=== PATIENT | male | born 1930 | race African-American/Black ===

== ENCOUNTER 2017-10-27 13:36 | Inpatient (IN) | payer MEDICARE, MEDICAID ==
[~2017-10-27] VITALS: Ht 165.1 cm; Wt 82.3 kg
[2017-10-27] MEDS ORDERED: DONEPEZIL HCL10 MG ORAL (13:53)
[2017-10-27] MEDS ORDERED: DULCOLAX10 MG RC (13:53)
[2017-10-27] MEDS ORDERED: FLEET ENEMA133 M1 RC (13:53)
[2017-10-27] MEDS ORDERED: ASPIRIN-LOW81 MG ORAL (13:53)
[2017-10-27] MEDS ORDERED: COLACE100 MG ORAL (13:53)
[2017-10-27] MEDS ORDERED: SENNA8.6 M2 PO (13:53)
[2017-10-27] MEDS ORDERED: MOM30 ML ORAL (13:53)
[2017-10-27] MEDS ORDERED: NORVASC5 MG ORAL (13:53)
[2017-10-27] MEDS ORDERED: ATORVASTATIN CA10 MG ORAL (13:53)
[2017-10-27] MEDS ORDERED: TAMSULOSIN HCL0.4 MG ORAL (13:53)
[2017-10-27] MEDS ORDERED: TYLENOL EXTRA500 MG ORAL (13:53)
[2017-10-27] MEDS ORDERED: VITAMIN D400 INTLU ORAL (13:53)
[2017-10-27 14:48] LABS: APPEARANCE,URINE SLIGHTLY CLOUDY; BASOPHILS % (AUTO) 1.3 % (0.0-2.0); BILIRUBIN, URINE NEGATIVE (NEGATIVE); EOSINOPHILS % (AUTO) 1.8 % (0.0-3.0); GLUCOSE, URINE (UA) NEGATIVE (NEGATIVE); HEMATOCRIT 52.7 % (42.0-52.0); HEMOGLOBIN 16.7 G/DL (14.2-18.0); KETONES,URINE 2+ (NEGATIVE); LEUKOCYTE ESTERASE ,URINE 2+ (NEGATIVE); LYMPHOCYTES % (AUTO) 36.1 % (20.0-45.0); MEAN CORPUSCULAR VOLUME 80 FL (80-99); MONOCYTES % (AUTO) 7.5 % (1.0-10.0); NEUTROPHILS % (AUTO) 53.4 % (45.0-75.0); NITRITE,URINE POSITIVE (NEGATIVE); PH,URINE 5 (4.5-8.0); PLATELET COUNT 307 K/UL (150-450); PROTEIN,URINE NEGATIVE (NEGATIVE); RED BLOOD COUNT 6.58 M/UL (4.70-6.10); RED CELL DISTRIBUTION WIDTH 15.2 % (11.6-14.8); UROBILINOGEN,URINE NORMAL MG/DL (0.0-1.0); WHITE BLOOD COUNT 5.9 K/UL (4.8-10.8)
[2017-10-27 14:49] LABS: COLOR,URINE YELLOW
[2017-10-27 15:00] VITALS: BP 128/77
[2017-10-27 15:03] LABS: ANION GAP 11 mmol/L (5-15); BLOOD UREA NITROGEN 17 mg/dL (7-18); CALCIUM 9.6 MG/DL (8.5-10.1); CARBON DIOXIDE 24 MMOL/L (21-32); CHLORIDE 112 MMOL/L (98-107); CREATININE 1.4 MG/DL (0.55-1.30); POTASSIUM 4.3 MMOL/L (3.5-5.1); SODIUM 147 MMOL/L (136-145)
[2017-10-27] MEDS ORDERED: Piperacillin/Tazobactam 3.375 GM in NS 110 ML IVPB ONE (15:15)
[2017-10-27] MEDS ORDERED: Sodium Chloride 500ML 500 ML IV ONE (15:15)
[2017-10-27] MEDS ORDERED: Azithromycin 500 MG in NS 275 ML IV ONE (15:15)
[2017-10-27 15:16] LABS: ALANINE AMINOTRANSFERASE 23 U/L (12-78); ALBUMIN 3.8 G/DL (3.4-5.0); ALBUMIN/GLOBULIN RATIO 0.7 (1.0-2.7); ALKALINE PHOSPHATASE 85 U/L (46-116); ASPARTATE AMINO TRANSFERASE 19 U/L (15-37); BILIRUBIN,TOTAL 0.8 MG/DL (0.2-1.0); CKMB 1.4 NG/ML (0.0-3.6); CREATINE KINASE 78 U/L (26-308)
[2017-10-27] MEDS ORDERED: NS 1000ml 2,200 ML IVLG ONE (15:30)
--- NOTE | 2017-10-27 15:30 | Emergency Room Report ---
History of Present Illness General Chief Complaint: General Complaint Source: Patient Present Illness HPI 87-year-old male presents ED for evaluation. Patient brought in from long-term facility with dysphagia and possible aspiration. Patient is nonverbal at baseline. Unable to provide any additional history at this time. No eating or drinking since yesterday. Patient has history of repeated aspiration in the past. Patient showing no signs of distress upon arrival. No other aggravating relieving factors. No other associated symptoms Allergies: Coded Allergies: TERAZOSIN (Verified Allergy, Unknown, 10/27/17) Patient History Past Medical History: HTN Past Surgical History: none Pertinent Family History: none Social History: Denies: smoking, alcohol use, drug use Immunizations: UTD Reviewed Nursing Documentation: PMH: Agreed; PSxH: Agreed Nursing Documentation-PMH Hx Hypertension: Yes Review of Systems All Other Systems: limited Physical Exam Vital Signs Date Time Temp Pulse Resp B/P (MAP) Pulse Ox O2 Delivery O2 Flow Rate FiO2 10/27/17 13:37 97.3 74 23 175/99 97 Room Air 97.3 Sp02 EP Interpretation: reviewed, normal General Appearance: other - nonverbal Head: normocephalic, atraumatic Eyes: bilateral eye normal inspection, bilateral eye PERRL ENT: hearing grossly normal, normal pharynx, no angioedema, normal voice Neck: full range of motion, supple/symm/no masses Respiratory: chest non-tender, lungs clear, normal breath sounds, speaking full sentences Cardiovascular #1: regular rate, rhythm, no edema Cardiovascular #2: 2+ carotid (R), 2+ carotid (L), 2+ radial (R), 2+ radial (L) , 2+ dorsalis pedis (R), 2+ dorsalis pedis (L) Gastrointestinal: normal bowel sounds, non tender, soft, non-distended, no guarding, no rebound Rectal: deferred Genitourinary: normal inspection, no CVA tenderness Musculoskeletal: back normal, gait/station normal, normal range of motion, non- tender Neurologic: other - nonverbal Psychiatric: other - nonverbal Reflexes: 3+ bicep (R), 3+ bicep (L), 3+ tricep (R), 3+ tricep (L), 3+ knee (R) , 3+ knee (L) Skin: normal color, no rash, warm/dry, well hydrated Lymphatic: no adenopathy Medical Decision Making Diagnostic Impression: Primary Impression: Dysphagia Qualified Codes: R13.10 - Dysphagia, unspecified Additional Impressions: UTI (urinary tract infection) Qualified Codes: N39.0 - Urinary tract infection, site not specified Dehydration Sepsis Qualified Codes: A41.9 - Sepsis, unspecified organism ER Course Hospital Course 87 yo M presents to ED with poor appetite x 1 day. risk of aspiration pneumonia Differential diagnoses include: Pneumonia, UTI, sepsis, dehydration, MN/ unstable angina Clinical course Patient placed on stretcher. On air sampling and monitoring with stable vitals are ED course. After initial history and physical, I ordered labs, IV fluids, EKG, chest x-ray, blood cultures, UA. Labs - BUN/Cr elevated, Na 147, no leukocytosis, troponins negative, UA grossly positive for UTI, lactate > 2 EKG - NSR, no acute ischemic changes interpreted by me CXR -cardiomegaly, no infiltrate identified Abx given. Given 30 mL per KG fluid bolus. Case discussed with Dr Matias and they agreed to admit patient to their service for further care and support I feel this is a highly complex case requiring extensive working including EKG/ Rhythm strip, Xray/CT/US, Blood/urine lab work, repeat exams while in ED, and administration of strong opiates/narcotics for pain control, admission to hospital or close patient follow up. Diagnosis - dysphagia, UTI, dehydration, sepsis Patient admitted to floor in serious condition Labs Test 10/27/17 14:20 White Blood Count 5.9 K/UL (4.8-10.8) Red Blood Count 6.58 M/UL (4.70-6.10) Hemoglobin 16.7 G/DL (14.2-18.0) Hematocrit 52.7 % (42.0-52.0) Mean Corpuscular Volume 80 FL (80-99) Mean Corpuscular Hemoglobin 25.4 PG (27.0-31.0) Mean Corpuscular Hemoglobin Concent 31.7 G/DL (32.0-36.0) Red Cell Distribution Width 15.2 % (11.6-14.8) Platelet Count 307 K/UL (150-450) Mean Platelet Volume 6.8 FL (6.5-10.1) Neutrophils (%) (Auto) 53.4 % (45.0-75.0) Lymphocytes (%) (Auto) 36.1 % (20.0-45.0) Monocytes (%) (Auto) 7.5 % (1.0-10.0) Eosinophils (%) (Auto) 1.8 % (0.0-3.0) Basophils (%) (Auto) 1.3 % (0.0-2.0) Urine Color Yellow Urine Appearance Slightly cloudy Urine pH 5 (4.5-8.0) Urine Specific [place] 1.020 (1.005-1.035) Urine Protein Negative (NEGATIVE) Urine Glucose (UA) Negative (NEGATIVE) Urine Ketones 2+ (NEGATIVE) Urine Blood 4+ (NEGATIVE) Urine Nitrite Positive (NEGATIVE) Urine Bilirubin Negative (NEGATIVE) Urine Urobilinogen Normal MG/DL (0.0-1.0) Urine Leukocyte Esterase 2+ (NEGATIVE) Urine RBC 2-4 /HPF (0 - 0) Urine WBC 15-20 /HPF (0 - 0) Urine Squamous Epithelial Cells None /LPF (NONE/OCC) Urine Bacteria Many /HPF (NONE) Sodium Level 147 MMOL/L (136-145) Potassium Level 4.3 MMOL/L (3.5-5.1) Chloride Level 112 MMOL/L (98-107) Carbon Dioxide Level 24 MMOL/L (21-32) Anion Gap 11 mmol/L (5-15) Blood Urea Nitrogen 17 mg/dL (7-18) Creatinine 1.4 MG/DL (0.55-1.30) Estimat Glomerular Filtration Rate mL/min (>60) Glucose Level 83 MG/DL (74-106) Lactic Acid Level 2.10 mmol/L (0.4-2.0) Calcium Level 9.6 MG/DL (8.5-10.1) Total Bilirubin 0.8 MG/DL (0.2-1.0) Aspartate Amino Transf (AST/SGOT) 19 U/L (15-37) Alanine Aminotransferase (ALT/SGPT) 23 U/L (12-78) Alkaline Phosphatase 85 U/L (46-116) Total Creatine Kinase 78 U/L (26-308) Creatine Kinase MB 1.4 NG/ML (0.0-3.6) Creatine Kinase MB Relative Index 1.7 Troponin I 0.010 ng/mL (0.000-0.056) Pro-B-Type Natriuretic Peptide 67 pg/mL (0-125) Total Protein 9.3 G/DL (6.4-8.2) Albumin 3.8 G/DL (3.4-5.0) Globulin 5.5 g/dL Albumin/Globulin Ratio 0.7 (1.0-2.7) Lipase 197 U/L (73-393) EKG Diagnostic Results Rate: normal Rhythm: NSR ST Segments: no acute changes ASA given to the pt in ED: No Rhythm Strip Diag. Results EP Interpretation: yes Rhythm: NSR, no PVC's, no ectopy Chest X-Ray Diagnostic Results Chest X-Ray Diagnostic Results : Chest X-Ray Ordered: Yes # of Views/Limited/Complete: 1 View Indication: Other - weakness EP Interpretation: Yes Interpretation: no consolidation, no effusion, no pneumothorax, no acute cardiopulmonary disease, other - cardiomegaly Impression: Other - cardiomegaly Electronically Signed by: Electronically signed by Lukas Porter MD Last Vital Signs Date Time Temp Pulse Resp B/P (MAP) Pulse Ox O2 Delivery O2 Flow Rate FiO2 10/27/17 15:00 70 20 128/77 98 Room Air 10/27/17 13:37 97.3 97.3 Status: improved Disposition: ADMITTED INPATIENT Condition: Serious Referrals: Trish Matias MD (PCP) Lukas Porter MD Oct 27, 2017 15:30
--- NOTE | 2017-10-27 16:10 | Diagnostic Imaging Report ---
Indication: Dyspnea Comparison: None A single view chest radiograph was obtained. Findings: Left hemidiaphragm is elevated. Heart is enlarged. Bones are osteopenic. Aorta is ectatic. Lungs appear clear. IMPRESSION: Elevated left hemidiaphragm Cardiomegaly
[2017-10-27 17:00] VITALS: BP 146/87
[2017-10-27] MEDS ORDERED: MILK OF MA400 MG/51 ORAL (17:33)
[2017-10-27] MEDS ORDERED: SENNOSIDES8.6 MG ORAL (17:38)
[2017-10-27] MEDS ORDERED: ACETAMINOPHEN325 M1 ORAL ×2 (18:03→18:05)
[2017-10-27] MEDS ORDERED: Milk of Magnesia 30ml Ud ORAL PRN (19:15)
[2017-10-27 20:00] VITALS: BP 158/74
[2017-10-27] MEDS: Donepezil 10mg tab ORAL SCH ×2 (21:00→21:34)
[2017-10-27] MEDS: Tamsulosin 0.4mg cap ORAL SCH ×2 (21:00→21:34)
[2017-10-28] VITALS: BP 157/87
[2017-10-28 04:24] VITALS: BP 150/76
[2017-10-28 05:56] LABS: BASOPHILS % (AUTO) 1.3 % (0.0-2.0); EOSINOPHILS % (AUTO) 1.6 % (0.0-3.0); HEMATOCRIT 41.4 % (42.0-52.0); HEMOGLOBIN 13.5 G/DL (14.2-18.0); LYMPHOCYTES % (AUTO) 32.9 % (20.0-45.0); MEAN CORPUSCULAR VOLUME 81 FL (80-99); MONOCYTES % (AUTO) 9.3 % (1.0-10.0); NEUTROPHILS % (AUTO) 54.9 % (45.0-75.0); PLATELET COUNT 267 K/UL (150-450); RED BLOOD COUNT 5.15 M/UL (4.70-6.10); RED CELL DISTRIBUTION WIDTH 15.6 % (11.6-14.8); WHITE BLOOD COUNT 6.5 K/UL (4.8-10.8)
[2017-10-28 06:19] LABS: ALANINE AMINOTRANSFERASE 25 U/L (12-78); ALBUMIN 3.2 G/DL (3.4-5.0); ALBUMIN/GLOBULIN RATIO 0.7 (1.0-2.7); ALKALINE PHOSPHATASE 70 U/L (46-116); ANION GAP 11 mmol/L (5-15); ASPARTATE AMINO TRANSFERASE 16 U/L (15-37); BILIRUBIN,TOTAL 0.9 MG/DL (0.2-1.0); BLOOD UREA NITROGEN 15 mg/dL (7-18); CALCIUM 8.5 MG/DL (8.5-10.1); CARBON DIOXIDE 24 MMOL/L (21-32); CHLORIDE 116 MMOL/L (98-107); CREATININE 1.3 MG/DL (0.55-1.30); SODIUM 151 MMOL/L (136-145)
[2017-10-28 08:00] VITALS: BP 165/81
[2017-10-28] MEDS: Aspirin Baby 81mg ORAL SCH (08:46)
[2017-10-28] MEDS: Docusate 250mg cap ORAL SCH (08:46)
[2017-10-28] MEDS: cefTRIAXone 1 GM in D5W 55 ML IVPB SCH (08:56)
--- NOTE | 2017-10-28 09:44 | Consultation ---
Consult Note Consult Note 87-year-old male presents ED for evaluation. Patient brought in from detention facility with dysphagia and possible aspiration. Patient is nonverbal at baseline. Unable to provide any additional history at this time. No eating or drinking since yesterday. Patient has history of repeated aspiration in the past. Patient showing no signs of distress upon arrival. No other aggravating relieving factors. No other associated symptoms Allergies: TERAZOSIN (Verified Allergy, Unknown, 10/27/17) Patient History Past Medical History: HTN Hx Hypertension: Yes Assessment/Plan Dysphagia UTI (urinary tract infection) Dehydration and hypernatremia Sepsis D5W ST eval Keep BP in check ? PEG Randolph Fernandes MD Oct 28, 2017 09:44
[2017-10-28 12:00] VITALS: BP 164/91
[2017-10-28 15:55] VITALS: BP 161/83
--- NOTE | 2017-10-28 19:45 | History and Physical Report ---
DATE OF ADMISSION: 10/27/2017 HISTORY OF PRESENT ILLNESS: The patient is admitted for dysphagia, rule out aspiration pneumonia as well as admitted for dehydration, UTI, and sepsis. The patient came from a nursing facility, could not swallow the food. The patient is nonverbal at baseline and is unable to provide any history. The patient is not able to eat and for history of aspiration in the past. Again, cannot obtain any meaningful history. The patient has also been admitted for rule out sepsis, urinary tract infection, as well as dehydration, and not eating. PAST MEDICAL HISTORY: Hypertension as well as history of hyperlipidemia, constipation, organic brain syndrome, constipation, BPH, dementia, and nonverbal. MEDICATIONS: Norvasc, Lipitor, bisacodyl, Colace, benazepril, Senokot, and Flomax. PAST SURGICAL HISTORY: Denies. ALLERGIES: Terazosin. FAMILY HISTORY: Unable to obtain. SOCIAL HISTORY: Unable to obtain. Comes in from a facility. REVIEW OF SYSTEMS: Unable to obtain. PHYSICAL EXAMINATION: VITAL SIGNS: Temperature 96.6, pulse is 75, and blood pressure is 157/87. HEENT: PERRLA. NECK: Supple. CHEST: Bibasilar rales. CARDIOVASCULAR: Regular rate and rhythm. ABDOMEN: Positive bowel sounds. Nontender. EXTREMITIES: A 1+ edema. NEUROLOGIC: Does not follow neurological exam. LABORATORY AND DIAGNOSTIC DATA: WBC of 5.9, hemoglobin 6.2, platelets 307,000. Sodium 151, potassium 4, BUN of 15, and creatinine 1.3. Lactic acid 2.1. ASSESSMENT: The patient under laboratory exam has urinary tract infection, rule out sepsis and also hypernatremia, most likely due to dehydration. PLAN: I have asked Dr. Fernandes and Dr. Mendieta to see the patient for hypernatremia, due to dehydration and urinary tract infection and rule out sepsis and not eating. Trish Matias M.D. DR: ANA LAURA JOB#: [id number] CC:
[2017-10-28 20:00] VITALS: BP 125/47
[2017-10-28] MEDS: Tamsulosin 0.4mg cap ORAL SCH (20:41)
[2017-10-28] MEDS: Donepezil 10mg tab ORAL SCH (20:41)
[2017-10-29] VITALS: BP 129/67
[2017-10-29 04:00] VITALS: BP 129/80
[2017-10-29 06:45] LABS: ALANINE AMINOTRANSFERASE 16 U/L (12-78); ALBUMIN 2.8 G/DL (3.4-5.0); ALBUMIN/GLOBULIN RATIO 0.7 (1.0-2.7); ALKALINE PHOSPHATASE 61 U/L (46-116); ANION GAP 7 mmol/L (5-15); ASPARTATE AMINO TRANSFERASE 14 U/L (15-37); BILIRUBIN,TOTAL 0.8 MG/DL (0.2-1.0); BLOOD UREA NITROGEN 9 mg/dL (7-18); CALCIUM 8.5 MG/DL (8.5-10.1); CARBON DIOXIDE 26 MMOL/L (21-32); CHLORIDE 111 MMOL/L (98-107); CHOLESTEROL 157 MG/DL (< 200); CREATINE KINASE 104 U/L (26-308); CREATININE 1.1 MG/DL (0.55-1.30); FERRITIN 68 NG/ML (8-388); GAMMA GLUTAMYL TRANSPEPTIDASE 20 U/L (5-85); HDL CHOLESTEROL 55 MG/DL (40-60); POTASSIUM 3.6 MMOL/L (3.5-5.1); SODIUM 144 MMOL/L (136-145); TRIGLYCERIDES 75 MG/DL (30-150)
[2017-10-29 07:28] LABS: % IRON SATURATION 31 % (15-50); IRON 64 ug/dL (50-175); TOTAL IRON BINDING CAPACITY 208 ug/dL (250-450)
[2017-10-29 08:00] VITALS: BP 141/73
[2017-10-29] MEDS: cefTRIAXone 1 GM in D5W 55 ML IVPB SCH (08:53)
[2017-10-29] MEDS: Aspirin Baby 81mg ORAL SCH (08:53)
[2017-10-29] MEDS: Docusate 250mg cap ORAL SCH (08:53)
--- NOTE | 2017-10-29 10:14 | Nephrology Progress Note ---
Assessment/Plan Problem List: (1) Dehydration (2) Dysphagia (3) UTI (urinary tract infection) Assessment Dysphagia UTI (urinary tract infection) Dehydration and hypernatremia Sepsis Plan NGT , all meds via NGT D5W ST eval Keep BP in check ? PEG Subjective ROS Limited/Unobtainable: Yes Objective Objective Last 24 Hour Vital Signs Date Time Temp Pulse Resp B/P (MAP) Pulse Ox O2 Delivery O2 Flow Rate FiO2 10/29/17 09:00 94 141/73 10/29/17 08:00 97.9 94 19 141/73 (95) 93 97.9 10/29/17 04:00 96.8 72 18 129/80 (96) 93 96.8 10/29/17 00:00 97.5 58 16 129/67 (87) 93 97.5 10/28/17 20:00 97.8 66 17 125/47 (73) 95 97.8 10/28/17 17:33 61 161/83 10/28/17 15:55 97.3 61 18 161/83 (109) 97 97.3 10/28/17 12:00 97.7 63 18 164/91 (115) 96 97.7 Intake and Output 10/28/17 10/29/17 19:00 07:00 Intake Total 860 ml 825 ml Output Total 200 ml 500 ml Balance 660 ml 325 ml Intake IV Total 860 ml 825 ml Output Urine Total 200 ml 500 ml # Voids 1 Laboratory Tests 10/29/17 05:00: Sodium Level 144, Potassium Level 3.6, Chloride Level 111H, Carbon Dioxide Level 26, Anion Gap 7, Blood Urea Nitrogen 9, Creatinine 1.1, Estimat Glomerular Filtration Rate , Glucose Level 107H, Hemoglobin A1c 6.4H, Uric Acid 5.0, Calcium Level 8.5, Phosphorus Level 3.0, Magnesium Level 1.9, Iron Level 64 , Total Iron Binding Capacity 208L, Percent Iron Saturation 31, Unsaturated Iron Binding 144, Ferritin 68, Total Bilirubin 0.8, Gamma Glutamyl Transpeptidase 20, Aspartate Amino Transf (AST/SGOT) 14L, Alanine Aminotransferase (ALT/SGPT) 16, Alkaline Phosphatase 61, Total Creatine Kinase 104, Pro-B-Type Natriuretic Peptide 263H, Total Protein 7.0, Albumin 2.8L, Globulin 4.2, Albumin/Globulin Ratio 0.7L, Triglycerides Level 75, Cholesterol Level 157, LDL Cholesterol 86, HDL Cholesterol 55, Cholesterol/HDL Ratio 2.9L, Vitamin B12 Level 893, Folate 18.3, Thyroid Stimulating Hormone (TSH) 1.353 Height (Feet): 5 Height (Inches): 4.00 Weight (Pounds): 160 General Appearance: no apparent distress Neck: limited range of motion Cardiovascular: normal rate Respiratory/Chest: decreased breath sounds Abdomen: soft Neurologic: other - non verbal - exts stiff Randolph Fernandes MD Oct 29, 2017 10:14
[2017-10-29] MEDS ORDERED: Milk of Magnesia 30ml Ud NG PRN (10:15)
--- NOTE | 2017-10-29 11:02 | General Progress Note ---
Assessment/Plan Assessment/Plan GI CONSULT Dictated Will check swallow evaluation Will likely need gastrostomy tube Thank you Ирина Don MD Subjective Allergies: Coded Allergies: TERAZOSIN (Verified Allergy, Unknown, 10/27/17) Objective Last 24 Hour Vital Signs Date Time Temp Pulse Resp B/P (MAP) Pulse Ox O2 Delivery O2 Flow Rate FiO2 10/29/17 09:00 94 141/73 10/29/17 08:00 97.9 94 19 141/73 (95) 93 97.9 10/29/17 04:00 96.8 72 18 129/80 (96) 93 96.8 10/29/17 00:00 97.5 58 16 129/67 (87) 93 97.5 10/28/17 20:00 97.8 66 17 125/47 (73) 95 97.8 10/28/17 17:33 61 161/83 10/28/17 15:55 97.3 61 18 161/83 (109) 97 97.3 10/28/17 12:00 97.7 63 18 164/91 (115) 96 97.7 Intake and Output 10/28/17 10/29/17 19:00 07:00 Intake Total 860 ml 825 ml Output Total 200 ml 500 ml Balance 660 ml 325 ml Intake IV Total 860 ml 825 ml Output Urine Total 200 ml 500 ml # Voids 1 Laboratory Tests 10/29/17 05:00: Sodium Level 144, Potassium Level 3.6, Chloride Level 111H, Carbon Dioxide Level 26, Anion Gap 7, Blood Urea Nitrogen 9, Creatinine 1.1, Estimat Glomerular Filtration Rate , Glucose Level 107H, Hemoglobin A1c 6.4H, Uric Acid 5.0, Calcium Level 8.5, Phosphorus Level 3.0, Magnesium Level 1.9, Iron Level 64 , Total Iron Binding Capacity 208L, Percent Iron Saturation 31, Unsaturated Iron Binding 144, Ferritin 68, Total Bilirubin 0.8, Gamma Glutamyl Transpeptidase 20, Aspartate Amino Transf (AST/SGOT) 14L, Alanine Aminotransferase (ALT/SGPT) 16, Alkaline Phosphatase 61, Total Creatine Kinase 104, Pro-B-Type Natriuretic Peptide 263H, Total Protein 7.0, Albumin 2.8L, Globulin 4.2, Albumin/Globulin Ratio 0.7L, Triglycerides Level 75, Cholesterol Level 157, LDL Cholesterol 86, HDL Cholesterol 55, Cholesterol/HDL Ratio 2.9L, Vitamin B12 Level 893, Folate 18.3, Thyroid Stimulating Hormone (TSH) 1.353 Height (Feet): 5 Height (Inches): 4.00 Weight (Pounds): 160 Sameer Don MD Oct 29, 2017 11:02
[2017-10-29 12:00] VITALS: BP 128/78
--- NOTE | 2017-10-29 14:00 | Cardiology Report ---
APPROVED REPORT EKG Measurement Heart [id number] Normal sinus rhythm Low voltage QRS T wave abnormality, consider anterior ischemia Abnormal ECG
--- NOTE | 2017-10-29 14:23 | Diagnostic Imaging Report ---
EXAM: XR Abdomen, 1 View CLINICAL HISTORY: NGT TECHNIQUE: Frontal supine view of the abdomen/pelvis. COMPARISON: No relevant prior studies available. FINDINGS: Gastrointestinal tract: Nonspecific pattern. Bones/joints: No acute fracture. Tubes, lines and devices: Enteric tube coiled in the stomach. IMPRESSION: Enteric tube coiled in the stomach.
[2017-10-29 16:00] VITALS: BP 128/81
--- NOTE | 2017-10-29 17:15 | Consultation ---
DATE OF CONSULTATION: 10/29/2017 INFECTIOUS DISEASE CONSULTATION CONSULTING PHYSICIAN: Anam Cruz M.D. PRIMARY ATTENDING PHYSICIAN: Trish Matias M.D. REASON FOR CONSULTATION: UTI. HISTORY OF PRESENT ILLNESS: This is an 87-year-old male, who is a detention resident admitted on 10/27/2017 for dysphagia and possible aspiration. The patient is nonverbal and not a source of history, was afebrile and has no leukocytosis at the time of admission. He has pyuria and urine culture becomes positive. He has lactic acidosis at the time of admission and hypernatremia. PAST MEDICAL HISTORY: Significant for hypertension, BPH, dementia, and likely CVA. ALLERGIES: Terazosin. MEDICATIONS: Getting amlodipine, milk of magnesia, bisacodyl, Protonix, aspirin, ceftriaxone, Flomax, and Tylenol. SOCIAL HISTORY: [facility] resident. No other history is obtainable by the patient. PHYSICAL EXAMINATION: VITAL SIGNS: Temperature 97.9, pulse 94, and blood pressure is 141/73. GENERAL APPEARANCE: No acute distress, on restrains in bed the right hand. HEAD AND NECK: He resists eye opening, has NG tube. HEART: normal rate. LUNGS: Bilateral rhonchi. ABDOMEN: Soft and nontender. EXTREMITIES: No edema. Bilateral sequential device. NEUROLOGIC: Noncommunicative, has contracture in the left hand. LABORATORY AND DIAGNOSTIC DATA: Sodium 144, potassium 3.6, chloride 111, bicarbonate 26, and glucose 107. Hemoglobin A1c 6.4. Lactic acid initially was 2.1 that decreased to 1.2. UA showed WBC of 15 to 20, leukocyte esterase positive, and 2+ nitrite positive. Chest x-ray showed elevation of the left hemithorax. Urine culture growing gram negative. Blood culture x2 are negative. MRSA screen is negative. VRE screen is negative. KPC screen is negative. IMPRESSION: Pyuria likely urinary tract infection. The patient has bacteriuria with gram-negative. 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 RECOMMENDATION: We will continue with ceftriaxone. We will follow up the cultures. At the end of my exam, I thank Dr. Matias for involving me in the care of this patient. Anam Cruz M.D. DR: JUAN CARLOS JOB#: [id number] CC: CASSANDRA
--- NOTE | 2017-10-29 17:45 | Consultation ---
DATE OF CONSULTATION: 10/29/2017 GASTROENTEROLOGY CONSULTATION CONSULTING PHYSICIAN: Sameer Don M.D. CHIEF COMPLAINT: I was asked to see this patient by Dr. Trish Matias for evaluation of feeding problems. HISTORY OF PRESENT ILLNESS: The patient is a debilitated 87-year-old man, who is a long-term nursing facility resident, who comes in with dehydration, urinary tract infection, and sepsis. The patient himself is unable to provide any history and most of the information is only available from the chart. The patient has not been sent at this time due to concerns about him being able to eat. He does not have a gastrostomy tube at this time. His admission laboratory evaluation showed free water depletion with sodium of 151, which has been corrected. He also has urinary tract infection, which is being treated. PAST MEDICAL HISTORY: History of hypertension, hyperlipidemia, organic brain syndrome, constipation, benign prostatic hypertrophy, dementia, bed-bound state, and hypercholesterolemia. ALLERGIES: Terazosin. FAMILY HISTORY: Unavailable and unobtainable. SOCIAL HISTORY: Unavailable and unobtainable although the patient does come from nursing facility. REVIEW OF SYSTEMS: Otherwise negative. PHYSICAL EXAMINATION: GENERAL: A debilitated man, seen in his bed. HEENT: Normocephalic and atraumatic. Sclerae anicteric. NECK: Supple. CHEST: Revealed coarse breath sounds. CARDIOVASCULAR: Revealed regular rate. ABDOMEN: Soft without any obvious masses. EXTREMITIES: Revealed apparent left upper extremity weakness and contractures consistent with left hemiparesis. He also had diffuse rigidity in the lower extremities. The patient did, however, uses right upper extremity. NEUROLOGIC: Notable for nonverbal state, but some spontaneous movements of right upper extremity. LABORATORY DATA: Noted. 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 He will have to be reevaluated for swallow safety and adequacy. For the time being, I will keep the patient NPO and give IV fluids and antibiotics. The patient's swallow function can be checked next week. A decision can be made on tube feeding. Should he require a more extensive evaluation while awaiting, a temporary nasogastric tube can be placed for feeding purposes. RECOMMENDATIONS: 1. Keep the patient NPO. 2. IV fluids and antibiotics. 3. Follow laboratory parameters and exam. 4. Swallow study tomorrow. Thank you for asking me to participate in care of this patient. Sameer Don M.D. DR: MADIE JOB#: [id number] CC: CASSANDRA
[2017-10-29 20:00] VITALS: BP 155/91
[2017-10-29] MEDS: Tamsulosin 0.4mg cap ORAL SCH (21:00)
--- NOTE | 2017-10-29 21:12 | General Progress Note ---
Assessment/Plan Problem List: (1) Sepsis ICD Codes: A41.9 - Sepsis, unspecified organism SNOMED: 19623401, [id number] Qualifiers: Qualified Codes: A41.9 - Sepsis, unspecified organism (2) Dehydration ICD Codes: E86.0 - Dehydration SNOMED: 43515496, 642391638 (3) Dysphagia ICD Codes: R13.10 - Dysphagia, unspecified SNOMED: 98245211, [id number] Qualifiers: Qualified Codes: R13.10 - Dysphagia, unspecified (4) UTI (urinary tract infection) ICD Codes: N39.0 - Urinary tract infection, site not specified SNOMED: 32777665, [id number] Qualifiers: Qualified Codes: N39.0 - Urinary tract infection, site not specified Status: progressing Assessment/Plan hypoxia consulted dr dubois ordered oxygen sepsis r/o pna dyshpagia r/o asa pna Subjective Gastrointestinal/Abdominal: Reports: nausea Allergies: Coded Allergies: TERAZOSIN (Verified Allergy, Unknown, 10/27/17) Objective Last 24 Hour Vital Signs Date Time Temp Pulse Resp B/P (MAP) Pulse Ox O2 Delivery O2 Flow Rate FiO2 10/29/17 18:26 83 135/78 10/29/17 16:00 97.8 81 18 128/81 (97) 99 97.8 10/29/17 12:00 97.8 89 21 128/78 (95) 93 97.8 10/29/17 09:00 94 141/73 10/29/17 08:00 97.9 94 19 141/73 (95) 93 97.9 10/29/17 04:00 96.8 72 18 129/80 (96) 93 96.8 10/29/17 00:00 97.5 58 16 129/67 (87) 93 97.5 Intake and Output 10/28/17 10/29/17 19:00 07:00 Intake Total 860 ml 825 ml Output Total 200 ml 500 ml Balance 660 ml 325 ml Intake IV Total 860 ml 825 ml Output Urine Total 200 ml 500 ml # Voids 1 Laboratory Tests 10/29/17 05:00: Sodium Level 144, Potassium Level 3.6, Chloride Level 111H, Carbon Dioxide Level 26, Anion Gap 7, Blood Urea Nitrogen 9, Creatinine 1.1, Estimat Glomerular Filtration Rate , Glucose Level 107H, Hemoglobin A1c 6.4H, Uric Acid 5.0, Calcium Level 8.5, Phosphorus Level 3.0, Magnesium Level 1.9, Iron Level 64 , Total Iron Binding Capacity 208L, Percent Iron Saturation 31, Unsaturated Iron Binding 144, Ferritin 68, Total Bilirubin 0.8, Gamma Glutamyl Transpeptidase 20, Aspartate Amino Transf (AST/SGOT) 14L, Alanine Aminotransferase (ALT/SGPT) 16, Alkaline Phosphatase 61, Total Creatine Kinase 104, Pro-B-Type Natriuretic Peptide 263H, Total Protein 7.0, Albumin 2.8L, Globulin 4.2, Albumin/Globulin Ratio 0.7L, Triglycerides Level 75, Cholesterol Level 157, LDL Cholesterol 86, HDL Cholesterol 55, Cholesterol/HDL Ratio 2.9L, Vitamin B12 Level 893, Folate 18.3, Thyroid Stimulating Hormone (TSH) 1.353 Height (Feet): 5 Height (Inches): 4.00 Weight (Pounds): 160 Respiratory/Chest: lungs clear Abdomen: soft Trish Matias MD Oct 29, 2017 21:12
[2017-10-30] VITALS: BP 144/86
[2017-10-30 04:00] VITALS: BP 153/92
[2017-10-30 05:30] LABS: BASOPHILS % (AUTO) 1.4 % (0.0-2.0); EOSINOPHILS % (AUTO) 1.9 % (0.0-3.0); HEMOGLOBIN 12.2 G/DL (14.2-18.0); LYMPHOCYTES % (AUTO) 33.3 % (20.0-45.0); MEAN CORPUSCULAR VOLUME 78 FL (80-99); MONOCYTES % (AUTO) 9.8 % (1.0-10.0); NEUTROPHILS % (AUTO) 53.6 % (45.0-75.0); PLATELET COUNT 227 K/UL (150-450); RED BLOOD COUNT 4.64 M/UL (4.70-6.10); WHITE BLOOD COUNT 5.4 K/UL (4.8-10.8)
[2017-10-30 05:54] LABS: ALANINE AMINOTRANSFERASE 17 U/L (12-78); ALBUMIN 2.7 G/DL (3.4-5.0); ALBUMIN/GLOBULIN RATIO 0.7 (1.0-2.7); ALKALINE PHOSPHATASE 59 U/L (46-116); ANION GAP 8 mmol/L (5-15); ASPARTATE AMINO TRANSFERASE 17 U/L (15-37); BILIRUBIN,TOTAL 0.8 MG/DL (0.2-1.0); BLOOD UREA NITROGEN 5 mg/dL (7-18); CARBON DIOXIDE 25 MMOL/L (21-32); CHLORIDE 108 MMOL/L (98-107); PHOSPHORUS 2.9 MG/DL (2.5-4.9); POTASSIUM 2.9 MMOL/L (3.5-5.1); SODIUM 140 MMOL/L (136-145)
[2017-10-30 08:00] VITALS: BP 132/75
[2017-10-30] MEDS: Aspirin Baby 81mg ORAL SCH (09:00)
[2017-10-30] MEDS: Docusate 250mg cap ORAL SCH (09:00)
[2017-10-30] MEDS: cefTRIAXone 1 GM in D5W 55 ML IVPB SCH (09:24)
--- NOTE | 2017-10-30 11:26 | GI Progress Note ---
Assessment/Plan Problems: (1) Malnutrition ICD Codes: E46 - Unspecified protein-calorie malnutrition SNOMED: 80898554 (2) Dysphagia ICD Codes: R13.10 - Dysphagia, unspecified SNOMED: 27539830, 148160760 Qualifiers: Qualified Codes: R13.10 - Dysphagia, unspecified (3) Dehydration ICD Codes: E86.0 - Dehydration SNOMED: 64075256, 658440852 Status: unchanged Status Narrative Discussed with Dr. Coronel. Assessment/Plan NGT removed by patient ST evaluation today RECOMMENDATIONS: 1. Keep the patient NPO. 2. IV fluids and antibiotics. 3. Follow laboratory parameters and exam. 4. Swallow study tomorrow >> will follow with additional recs after study >> pt failed swallow evaluation will proceed with PEG tomorrow. maintain NPO + IVFs. hold all blood thinners. The patient was seen and examined at bedside and all new and available data was reviewed in the patients chart. I agree with the above findings, impression and plan. (Patient seen earlier today. Signature stamp does not reflect patient encounter time.). - Juan Coronel MD Subjective Subjective limited Objective Last 24 Hour Vital Signs Date Time Temp Pulse Resp B/P (MAP) Pulse Ox O2 Delivery O2 Flow Rate FiO2 10/30/17 08:00 98.0 57 18 132/75 (94) 96 98.0 10/30/17 04:00 97.3 70 19 153/92 (112) 98 97.3 10/30/17 00:00 97.7 71 19 144/86 (105) 98 97.7 10/29/17 20:00 99.5 77 20 155/91 (112) 97 99.5 10/29/17 18:26 83 135/78 10/29/17 16:00 97.8 81 18 128/81 (97) 99 97.8 10/29/17 12:00 97.8 89 21 128/78 (95) 93 97.8 Intake and Output 10/29/17 10/30/17 19:00 07:00 Intake Total 655 ml 750 ml Output Total 300 ml 350 ml Balance 355 ml 400 ml Intake IV Total 655 ml 750 ml Output Urine Total 300 ml 350 ml # Bowel Movements 1 Laboratory Tests Test 10/30/17 05:15 White Blood Count 5.4 K/UL (4.8-10.8) Red Blood Count 4.64 M/UL (4.70-6.10) L Hemoglobin 12.2 G/DL (14.2-18.0) L Hematocrit 36.0 % (42.0-52.0) L Mean Corpuscular Volume 78 FL (80-99) L Mean Corpuscular Hemoglobin 26.4 PG (27.0-31.0) L Mean Corpuscular Hemoglobin Concent 34.0 G/DL (32.0-36.0) Red Cell Distribution Width 14.0 % (11.6-14.8) Platelet Count 227 K/UL (150-450) Mean Platelet Volume 7.0 FL (6.5-10.1) Neutrophils (%) (Auto) 53.6 % (45.0-75.0) Lymphocytes (%) (Auto) 33.3 % (20.0-45.0) Monocytes (%) (Auto) 9.8 % (1.0-10.0) Eosinophils (%) (Auto) 1.9 % (0.0-3.0) Basophils (%) (Auto) 1.4 % (0.0-2.0) Sodium Level 140 MMOL/L (136-145) Potassium Level 2.9 MMOL/L (3.5-5.1) L Chloride Level 108 MMOL/L (98-107) H Carbon Dioxide Level 25 MMOL/L (21-32) Anion Gap 8 mmol/L (5-15) Blood Urea Nitrogen 5 mg/dL (7-18) L Creatinine 1.0 MG/DL (0.55-1.30) Estimat Glomerular Filtration Rate mL/min (>60) Glucose Level 108 MG/DL (74-106) H Calcium Level 8.0 MG/DL (8.5-10.1) L Phosphorus Level 2.9 MG/DL (2.5-4.9) Magnesium Level 1.7 MG/DL (1.8-2.4) L Total Bilirubin 0.8 MG/DL (0.2-1.0) Aspartate Amino Transf (AST/SGOT) 17 U/L (15-37) Alanine Aminotransferase (ALT/SGPT) 17 U/L (12-78) Alkaline Phosphatase 59 U/L (46-116) Total Protein 6.8 G/DL (6.4-8.2) Albumin 2.7 G/DL (3.4-5.0) L Globulin 4.1 g/dL Albumin/Globulin Ratio 0.7 (1.0-2.7) L Height (Feet): 5 Height (Inches): 4.00 Weight (Pounds): 160 General Appearance: alert Cardiovascular: normal rate Respiratory/Chest: normal breath sounds, no respiratory distress Abdominal Exam: soft Kishan Hopkins CASH MANAGEMENT CLERK Oct 30, 2017 11:26
[2017-10-30 12:00] VITALS: BP 131/78
--- NOTE | 2017-10-30 12:16 | Nephrology Progress Note ---
Assessment/Plan Problem List: (1) Dehydration (2) Dysphagia (3) UTI (urinary tract infection) (4) Hypokalemia Assessment Dysphagia UTI (urinary tract infection) Dehydration and hypernatremia Sepsis Plan IV KCL- NGT , all meds via NGT D5W ST eval Keep BP in check ? PEG Subjective ROS Limited/Unobtainable: No Constitutional: Reports: other - non verbal Objective Objective Last 24 Hour Vital Signs Date Time Temp Pulse Resp B/P (MAP) Pulse Ox O2 Delivery O2 Flow Rate FiO2 10/30/17 08:00 98.0 57 18 132/75 (94) 96 98.0 10/30/17 04:00 97.3 70 19 153/92 (112) 98 97.3 10/30/17 00:00 97.7 71 19 144/86 (105) 98 97.7 10/29/17 20:00 99.5 77 20 155/91 (112) 97 99.5 10/29/17 18:26 83 135/78 10/29/17 16:00 97.8 81 18 128/81 (97) 99 97.8 Intake and Output 10/29/17 10/30/17 19:00 07:00 Intake Total 655 ml 750 ml Output Total 300 ml 350 ml Balance 355 ml 400 ml Intake IV Total 655 ml 750 ml Output Urine Total 300 ml 350 ml # Bowel Movements 1 Laboratory Tests 10/30/17 05:15: White Blood Count 5.4, Red Blood Count 4.64L, Hemoglobin 12.2L, Hematocrit 36.0L , Mean Corpuscular Volume 78L, Mean Corpuscular Hemoglobin 26.4L, Mean Corpuscular Hemoglobin Concent 34.0, Red Cell Distribution Width 14.0, Platelet Count 227, Mean Platelet Volume 7.0, Neutrophils (%) (Auto) 53.6, Lymphocytes (% ) (Auto) 33.3, Monocytes (%) (Auto) 9.8, Eosinophils (%) (Auto) 1.9, Basophils ( %) (Auto) 1.4, Sodium Level 140, Potassium Level 2.9L, Chloride Level 108H, Carbon Dioxide Level 25, Anion Gap 8, Blood Urea Nitrogen 5L, Creatinine 1.0, Estimat Glomerular Filtration Rate , Glucose Level 108H, Calcium Level 8.0L, Phosphorus Level 2.9, Magnesium Level 1.7L, Total Bilirubin 0.8, Aspartate Amino Transf (AST/SGOT) 17, Alanine Aminotransferase (ALT/SGPT) 17, Alkaline Phosphatase 59, Total Protein 6.8, Albumin 2.7L, Globulin 4.1, Albumin/Globulin Ratio 0.7L Height (Feet): 5 Height (Inches): 4.00 Weight (Pounds): 160 General Appearance: no apparent distress Neck: limited range of motion Cardiovascular: normal rate Respiratory/Chest: decreased breath sounds Abdomen: soft Objective no change Randolph Fernandes MD Oct 30, 2017 12:16
[2017-10-30] MEDS ORDERED: Albuterol/Ipratropium 3ml neb HHN PRN (12:30)
--- NOTE | 2017-10-30 12:31 | Consultation ---
History of Present Illness General Date patient seen: Oct 30, 2017 Chief Complaint: General Complaint Present Illness HPI 87-year-old male with a history of presumed dementia, traumatic brain injury, dysphagia, BPH, hypertension, hyperlipidemia, who was admitted from a nursing facility with inability to swallow. the pt pw depressed mood, low energy and he is not engaged. Allergies: Coded Allergies: TERAZOSIN (Verified Allergy, Unknown, 10/27/17) Medication History Scheduled Amlodipine Besylate (Norvasc), 5 MG ORAL DAILY, (Reported) Aspirin (Aspirin EC), 81 MG ORAL DAILY, (Reported) Atorvastatin Calcium* (Lipitor*), 10 MG ORAL BEDTIME, (Reported) Docusate Sodium* (Colace*), 250 MG ORAL DAILY, (Reported) Donepezil Hcl* (Donepezil Hcl*), 10 MG ORAL DAILY, (Reported) Magnesium Hydroxide* (Milk Of Magnesia*), 30 ML ORAL QHS, (Reported) Sennosides* (Sennosides*), 17.2 MG ORAL QPM, (Reported) Tamsulosin Hcl (Tamsulosin Hcl*), 0.4 MG ORAL BEDTIME, (Reported) Scheduled PRN Acetaminophen* (Acetaminophen 325MG Tablet*), 650 MG ORAL Q4H PRN for For Pain, (Reported) Acetaminophen* (Acetaminophen 325MG Tablet*), 650 MG ORAL Q4H PRN for FEVER ( TEMP >101F), (Reported) Miscellaneous Medications Bisacodyl (Dulcolax), 10 MG RC, (Reported) Na Phos,M-B/Na Phos,Di-Ba (Fleet Enema), 133 ML RC, (Reported) Discontinued Medications Vitamin D (Vitamin D3), 400 UNITS ORAL DAILY, (Reported) Discontinued Reason: Therapy completed Patient History Limited by: medical condition History Provided By: Patient, Medical Record, PMD Healthcare decision maker Resuscitation status Full Code Advanced Directive on File Past Medical/Surgical History Past Medical/Surgical History: (1) Dehydration (2) Dysphagia (3) UTI (urinary tract infection) (4) Sepsis (5) Malnutrition (6) Hypokalemia Review of Systems Psychiatric: Reports: prior hx, anxiety, depressed feelings, emotional problems Physical Exam General Appearance: no apparent distress, alert, confused Neurologic: depressed affect Last 24 Hour Vital Signs Date Time Temp Pulse Resp B/P (MAP) Pulse Ox O2 Delivery O2 Flow Rate FiO2 10/30/17 08:00 98.0 57 18 132/75 (94) 96 98.0 10/30/17 04:00 97.3 70 19 153/92 (112) 98 97.3 10/30/17 00:00 97.7 71 19 144/86 (105) 98 97.7 10/29/17 20:00 99.5 77 20 155/91 (112) 97 99.5 10/29/17 18:26 83 135/78 10/29/17 16:00 97.8 81 18 128/81 (97) 99 97.8 Intake and Output 10/29/17 10/30/17 19:00 07:00 Intake Total 655 ml 750 ml Output Total 300 ml 350 ml Balance 355 ml 400 ml Intake IV Total 655 ml 750 ml Output Urine Total 300 ml 350 ml # Bowel Movements 1 Laboratory Tests Test 10/30/17 05:15 White Blood Count 5.4 K/UL (4.8-10.8) Red Blood Count 4.64 M/UL (4.70-6.10) L Hemoglobin 12.2 G/DL (14.2-18.0) L Hematocrit 36.0 % (42.0-52.0) L Mean Corpuscular Volume 78 FL (80-99) L Mean Corpuscular Hemoglobin 26.4 PG (27.0-31.0) L Mean Corpuscular Hemoglobin Concent 34.0 G/DL (32.0-36.0) Red Cell Distribution Width 14.0 % (11.6-14.8) Platelet Count 227 K/UL (150-450) Mean Platelet Volume 7.0 FL (6.5-10.1) Neutrophils (%) (Auto) 53.6 % (45.0-75.0) Lymphocytes (%) (Auto) 33.3 % (20.0-45.0) Monocytes (%) (Auto) 9.8 % (1.0-10.0) Eosinophils (%) (Auto) 1.9 % (0.0-3.0) Basophils (%) (Auto) 1.4 % (0.0-2.0) Sodium Level 140 MMOL/L (136-145) Potassium Level 2.9 MMOL/L (3.5-5.1) L Chloride Level 108 MMOL/L (98-107) H Carbon Dioxide Level 25 MMOL/L (21-32) Anion Gap 8 mmol/L (5-15) Blood Urea Nitrogen 5 mg/dL (7-18) L Creatinine 1.0 MG/DL (0.55-1.30) Estimat Glomerular Filtration Rate mL/min (>60) Glucose Level 108 MG/DL (74-106) H Calcium Level 8.0 MG/DL (8.5-10.1) L Phosphorus Level 2.9 MG/DL (2.5-4.9) Magnesium Level 1.7 MG/DL (1.8-2.4) L Total Bilirubin 0.8 MG/DL (0.2-1.0) Aspartate Amino Transf (AST/SGOT) 17 U/L (15-37) Alanine Aminotransferase (ALT/SGPT) 17 U/L (12-78) Alkaline Phosphatase 59 U/L (46-116) Total Protein 6.8 G/DL (6.4-8.2) Albumin 2.7 G/DL (3.4-5.0) L Globulin 4.1 g/dL Albumin/Globulin Ratio 0.7 (1.0-2.7) L Height (Feet): 5 Height (Inches): 4.00 Weight (Pounds): 160 Medications Current Medications Medications (Trade) Dose Ordered Sig/Ruthie Route PRN Reason Start Time Stop Time Status Last Admin Dose Admin Acetaminophen (Tylenol) 650 mg Q4H PRN ORAL Mild Pain/Temp > 100.5 10/27/17 19:00 11/26/17 18:59 Amlodipine Besylate (Norvasc) 5 mg BID NG 10/29/17 18:00 11/27/17 08:59 10/29/17 18:26 Aspirin (ASA) 81 mg DAILY ORAL 10/28/17 09:00 11/27/17 08:59 10/28/17 08:46 Bisacodyl (Dulcolax) 10 mg DAILYPRN PRN RECTAL Constipation 10/29/17 10:15 11/26/17 19:14 Ceftriaxone Sodium 1 gm/ Dextrose 55 ml @ 110 mls/hr DAILY IVPB 10/28/17 09:00 11/04/17 08:59 10/30/17 09:24 Dextrose 1,000 ml @ 75 mls/hr [id number] IV 10/28/17 09:42 11/27/17 09:41 10/30/17 02:02 Docusate Sodium (Colace) 250 mg DAILY ORAL 10/28/17 09:00 11/27/17 08:59 10/28/17 08:46 Magnesium Hydroxide (Mom) 30 ml HSPRN PRN NG Constipation 10/29/17 10:15 11/26/17 19:14 Pantoprazole (Protonix) 40 mg DAILY ORAL 10/28/17 09:47 11/27/17 09:46 Potassium Chloride 100 ml @ 100 mls/hr Q1HR IVPB 10/30/17 09:00 10/30/17 12:59 10/30/17 12:11 Tamsulosin HCl (Flomax) 0.4 mg BEDTIME ORAL 10/27/17 21:00 11/26/17 20:59 10/28/17 20:41 Assessment/Plan Status: stable Assessment/Plan 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
--- NOTE | 2017-10-30 12:41 | Consultation ---
Consult Note Assessment/Plan DICT # [id number] Fantasma Nielsen MD Oct 30, 2017 12:41
--- NOTE | 2017-10-30 12:50 | General Progress Note ---
Assessment/Plan Problem List: (1) Sepsis ICD Codes: A41.9 - Sepsis, unspecified organism SNOMED: 03694260, 460528400 Qualifiers: Qualified Codes: A41.9 - Sepsis, unspecified organism (2) Dehydration ICD Codes: E86.0 - Dehydration SNOMED: 75645121, 119220151 (3) Dysphagia ICD Codes: R13.10 - Dysphagia, unspecified SNOMED: 30259378, 595365519 Qualifiers: Qualified Codes: R13.10 - Dysphagia, unspecified (4) UTI (urinary tract infection) ICD Codes: N39.0 - Urinary tract infection, site not specified SNOMED: 22760273, 173510428 Qualifiers: Qualified Codes: N39.0 - Urinary tract infection, site not specified Status: progressing Assessment/Plan confused failed swallow study so peg per dr smith keeps removing peg sepsis r/o pna dyshpagia r/o asa pna Subjective ROS Limited/Unobtainable: Yes Allergies: Coded Allergies: TERAZOSIN (Verified Allergy, Unknown, 10/27/17) Objective Last 24 Hour Vital Signs Date Time Temp Pulse Resp B/P (MAP) Pulse Ox O2 Delivery O2 Flow Rate FiO2 10/30/17 08:00 98.0 57 18 132/75 (94) 96 98.0 10/30/17 04:00 97.3 70 19 153/92 (112) 98 97.3 10/30/17 00:00 97.7 71 19 144/86 (105) 98 97.7 10/29/17 20:00 99.5 77 20 155/91 (112) 97 99.5 10/29/17 18:26 83 135/78 10/29/17 16:00 97.8 81 18 128/81 (97) 99 97.8 Intake and Output 10/29/17 10/30/17 19:00 07:00 Intake Total 655 ml 750 ml Output Total 300 ml 350 ml Balance 355 ml 400 ml Intake IV Total 655 ml 750 ml Output Urine Total 300 ml 350 ml # Bowel Movements 1 Laboratory Tests 10/30/17 05:15: White Blood Count 5.4, Red Blood Count 4.64L, Hemoglobin 12.2L, Hematocrit 36.0L , Mean Corpuscular Volume 78L, Mean Corpuscular Hemoglobin 26.4L, Mean Corpuscular Hemoglobin Concent 34.0, Red Cell Distribution Width 14.0, Platelet Count 227, Mean Platelet Volume 7.0, Neutrophils (%) (Auto) 53.6, Lymphocytes (% ) (Auto) 33.3, Monocytes (%) (Auto) 9.8, Eosinophils (%) (Auto) 1.9, Basophils ( %) (Auto) 1.4, Sodium Level 140, Potassium Level 2.9L, Chloride Level 108H, Carbon Dioxide Level 25, Anion Gap 8, Blood Urea Nitrogen 5L, Creatinine 1.0, Estimat Glomerular Filtration Rate , Glucose Level 108H, Calcium Level 8.0L, Phosphorus Level 2.9, Magnesium Level 1.7L, Total Bilirubin 0.8, Aspartate Amino Transf (AST/SGOT) 17, Alanine Aminotransferase (ALT/SGPT) 17, Alkaline Phosphatase 59, Total Protein 6.8, Albumin 2.7L, Globulin 4.1, Albumin/Globulin Ratio 0.7L Height (Feet): 5 Height (Inches): 4.00 Weight (Pounds): 160 General Appearance: confused Cardiovascular: normal rate Respiratory/Chest: lungs clear Abdomen: soft Trish Matias MD Oct 30, 2017 12:50
--- NOTE | 2017-10-30 12:51 | General Progress Note ---
Assessment/Plan Problem List: (1) Sepsis ICD Codes: A41.9 - Sepsis, unspecified organism SNOMED: 75971347, 729521353 Qualifiers: Qualified Codes: A41.9 - Sepsis, unspecified organism (2) Dehydration ICD Codes: E86.0 - Dehydration SNOMED: 54632568, 055960687 (3) Dysphagia ICD Codes: R13.10 - Dysphagia, unspecified SNOMED: 09489800, 854929915 Qualifiers: Qualified Codes: R13.10 - Dysphagia, unspecified (4) UTI (urinary tract infection) ICD Codes: N39.0 - Urinary tract infection, site not specified SNOMED: 94876184, 382893011 Qualifiers: Qualified Codes: N39.0 - Urinary tract infection, site not specified Assessment/Plan confused failed swallow study so peg per dr smith keeps removing ng tube sepsis r/o pna dyshpagia r/o asa pna dementia Subjective Allergies: Coded Allergies: TERAZOSIN (Verified Allergy, Unknown, 10/27/17) Objective Last 24 Hour Vital Signs Date Time Temp Pulse Resp B/P (MAP) Pulse Ox O2 Delivery O2 Flow Rate FiO2 10/30/17 08:00 98.0 57 18 132/75 (94) 96 98.0 10/30/17 04:00 97.3 70 19 153/92 (112) 98 97.3 10/30/17 00:00 97.7 71 19 144/86 (105) 98 97.7 10/29/17 20:00 99.5 77 20 155/91 (112) 97 99.5 10/29/17 18:26 83 135/78 10/29/17 16:00 97.8 81 18 128/81 (97) 99 97.8 Intake and Output 10/29/17 10/30/17 19:00 07:00 Intake Total 655 ml 750 ml Output Total 300 ml 350 ml Balance 355 ml 400 ml Intake IV Total 655 ml 750 ml Output Urine Total 300 ml 350 ml # Bowel Movements 1 Laboratory Tests 10/30/17 05:15: White Blood Count 5.4, Red Blood Count 4.64L, Hemoglobin 12.2L, Hematocrit 36.0L , Mean Corpuscular Volume 78L, Mean Corpuscular Hemoglobin 26.4L, Mean Corpuscular Hemoglobin Concent 34.0, Red Cell Distribution Width 14.0, Platelet Count 227, Mean Platelet Volume 7.0, Neutrophils (%) (Auto) 53.6, Lymphocytes (% ) (Auto) 33.3, Monocytes (%) (Auto) 9.8, Eosinophils (%) (Auto) 1.9, Basophils ( %) (Auto) 1.4, Sodium Level 140, Potassium Level 2.9L, Chloride Level 108H, Carbon Dioxide Level 25, Anion Gap 8, Blood Urea Nitrogen 5L, Creatinine 1.0, Estimat Glomerular Filtration Rate , Glucose Level 108H, Calcium Level 8.0L, Phosphorus Level 2.9, Magnesium Level 1.7L, Total Bilirubin 0.8, Aspartate Amino Transf (AST/SGOT) 17, Alanine Aminotransferase (ALT/SGPT) 17, Alkaline Phosphatase 59, Total Protein 6.8, Albumin 2.7L, Globulin 4.1, Albumin/Globulin Ratio 0.7L Height (Feet): 5 Height (Inches): 4.00 Weight (Pounds): 160 Trish Matias MD Oct 30, 2017 12:51
--- NOTE | 2017-10-30 12:59 | Diagnostic Imaging Report ---
Indication: A gastric intubation Technique: 2 views of the abdomen were obtained timed 15:31 and 15:39. Comparison: 10/29/2017, 13:31 Findings: Initial image obtained with time stamp of 15:31 demonstrates a nasogastric tube coiled in the stomach. Subsequent image time stamped 15:39 is a slight retraction of the nasogastric tube. The coil has been reduced. The tip in the side hole of the nasogastric tube are within the proximal stomach. The visualized bowel gas pattern is nonspecific. Heart is enlarged. There are degenerative changes of the spine. Impression: Nasogastric tube tip and sidehole in the proximal stomach.
--- NOTE | 2017-10-30 13:30 | Infectious Diseases Prog Note ---
Assessment/Plan Assessment/Plan A; E.coli UTI Dysphagia Dementia BPH s/p CVA P; continue Rocephin Subjective ROS Limited/Unobtainable: Yes Allergies: Coded Allergies: TERAZOSIN (Verified Allergy, Unknown, 10/27/17) Objective Vital Signs Last 24 Hour Vital Signs Date Time Temp Pulse Resp B/P (MAP) Pulse Ox O2 Delivery O2 Flow Rate FiO2 10/30/17 08:00 98.0 57 18 132/75 (94) 96 98.0 10/30/17 04:00 97.3 70 19 153/92 (112) 98 97.3 10/30/17 00:00 97.7 71 19 144/86 (105) 98 97.7 10/29/17 20:00 99.5 77 20 155/91 (112) 97 99.5 10/29/17 18:26 83 135/78 10/29/17 16:00 97.8 81 18 128/81 (97) 99 97.8 Height (Feet): 5 Height (Inches): 4.00 Weight (Pounds): 160 General Appearance: no acute distress HEENT: mucous membranes moist Respiratory/Chest: lungs clear Cardiovascular: normal rate Abdomen: soft, non tender Extremities: no edema Neurologic/Psychiatric: other - sleeping Microbiology Date/Time Source Procedure Growth Status 10/27/17 14:30 Blood Blood Culture - Preliminary NO GROWTH AFTER 48 HOURS Resulted 10/27/17 14:20 Blood Blood Culture - Preliminary NO GROWTH AFTER 48 HOURS Resulted 10/27/17 15:00 Nasal Nares MRSA Culture - Final NO METHICILLIN RESISTANT STAPH AUREUS... Complete 10/27/17 14:20 Urine,Clean Catch Urine Culture - Final Escherichia Coli Complete 10/27/17 15:00 Rectum VRE Culture - Final NO VANCOMYCIN RESISTANT ENTEROCOCCUS ... Complete 10/27/17 15:00 Rectum - Final NO CARBAPENEM-RESISTANT ENTEROBACTERI... Complete Laboratory Tests Test 10/30/17 05:15 10/30/17 12:50 White Blood Count 5.4 K/UL (4.8-10.8) Red Blood Count 4.64 M/UL (4.70-6.10) L Hemoglobin 12.2 G/DL (14.2-18.0) L Hematocrit 36.0 % (42.0-52.0) L Mean Corpuscular Volume 78 FL (80-99) L Mean Corpuscular Hemoglobin 26.4 PG (27.0-31.0) L Mean Corpuscular Hemoglobin Concent 34.0 G/DL (32.0-36.0) Red Cell Distribution Width 14.0 % (11.6-14.8) Platelet Count 227 K/UL (150-450) Mean Platelet Volume 7.0 FL (6.5-10.1) Neutrophils (%) (Auto) 53.6 % (45.0-75.0) Lymphocytes (%) (Auto) 33.3 % (20.0-45.0) Monocytes (%) (Auto) 9.8 % (1.0-10.0) Eosinophils (%) (Auto) 1.9 % (0.0-3.0) Basophils (%) (Auto) 1.4 % (0.0-2.0) Sodium Level 140 MMOL/L (136-145) Potassium Level 2.9 MMOL/L (3.5-5.1) L Chloride Level 108 MMOL/L (98-107) H Carbon Dioxide Level 25 MMOL/L (21-32) Anion Gap 8 mmol/L (5-15) Blood Urea Nitrogen 5 mg/dL (7-18) L Creatinine 1.0 MG/DL (0.55-1.30) Estimat Glomerular Filtration Rate mL/min (>60) Glucose Level 108 MG/DL (74-106) H Calcium Level 8.0 MG/DL (8.5-10.1) L Phosphorus Level 2.9 MG/DL (2.5-4.9) Magnesium Level 1.7 MG/DL (1.8-2.4) L Total Bilirubin 0.8 MG/DL (0.2-1.0) Aspartate Amino Transf (AST/SGOT) 17 U/L (15-37) Alanine Aminotransferase (ALT/SGPT) 17 U/L (12-78) Alkaline Phosphatase 59 U/L (46-116) Total Protein 6.8 G/DL (6.4-8.2) Albumin 2.7 G/DL (3.4-5.0) L Globulin 4.1 g/dL Albumin/Globulin Ratio 0.7 (1.0-2.7) L D-Dimer Pending Current Medications Medications (Trade) Dose Ordered Sig/Ruthie Route PRN Reason Start Time Stop Time Status Last Admin Dose Admin Acetaminophen (Tylenol) 650 mg Q4H PRN ORAL Mild Pain/Temp > 100.5 10/27/17 19:00 11/26/17 18:59 Albuterol/ Ipratropium (Albuterol/ Ipratropium) 3 ml Q4H PRN HHN Shortness of Breath 10/30/17 12:30 11/04/17 12:29 Amlodipine Besylate (Norvasc) 5 mg BID NG 10/29/17 18:00 11/27/17 08:59 10/29/17 18:26 Aspirin (ASA) 81 mg DAILY ORAL 10/28/17 09:00 11/27/17 08:59 10/28/17 08:46 Bisacodyl (Dulcolax) 10 mg DAILYPRN PRN RECTAL Constipation 10/29/17 10:15 11/26/17 19:14 Ceftriaxone Sodium 1 gm/ Dextrose 55 ml @ 110 mls/hr DAILY IVPB 10/28/17 09:00 11/04/17 08:59 10/30/17 09:24 Dextrose 1,000 ml @ 75 mls/hr [id number] IV 10/28/17 09:42 11/27/17 09:41 10/30/17 02:02 Docusate Sodium (Colace) 250 mg DAILY ORAL 10/28/17 09:00 11/27/17 08:59 10/28/17 08:46 Escitalopram Oxalate (Lexapro) 10 mg DAILY GT 10/31/17 09:00 11/30/17 08:59 Heparin Sodium (Porcine) (Heparin 5000 units/ml) 5,000 units EVERY 12 HOURS SUBQ 10/30/17 21:00 11/29/17 20:59 Magnesium Hydroxide (Mom) 30 ml HSPRN PRN NG Constipation 10/29/17 10:15 11/26/17 19:14 Pantoprazole (Protonix) 40 mg DAILY ORAL 10/28/17 09:47 11/27/17 09:46 Tamsulosin HCl (Flomax) 0.4 mg BEDTIME ORAL 10/27/17 21:00 11/26/17 20:59 10/28/17 20:41 Anam Cruz MD Oct 30, 2017 13:30
--- NOTE | 2017-10-30 13:34 | Diagnostic Imaging Report ---
Indication: Gastric intubation Technique: XRAY Abdomen 1v Comparison: 10/29/2017, 15:39 FINDINGS/IMPRESSION: * Nasogastric tube tip and sidehole within the proximal stomach. * Nonspecific bowel gas pattern. * Degenerative changes of the spine. Left hip prosthesis partially visualized.
--- NOTE | 2017-10-30 15:45 | Consultation ---
DATE OF CONSULTATION: 10/30/2017 PULMONARY CONSULTATION CONSULTING PHYSICIAN: Fantasma Nielsen M.D. REFERRING PHYSICIAN: Trish Matias M.D. REASON FOR CONSULTATION: Hypoxemia. HISTORY OF PRESENT ILLNESS: The patient is a very unfortunate 87-year-old male with a history of presumed dementia, traumatic brain injury, nonverbal at baseline, dysphagia, BPH, hypertension, hyperlipidemia, who was admitted from a nursing facility with inability to swallow and concern for recurrent aspiration. He was hypernatremic when he came in, which was corrected. He also had acute kidney injury with creatinine of 1.4, which has since corrected. He has evidence of protein-calorie malnutrition and urinary tract infection for which he is on antibiotics. Overnight, he became hypoxemic, saturating 92% on room air. For this reason, pulmonary consultation was called. He has had no other episodes of hypoxemia. Saturations have been stable. The patient himself cannot provide any history, but he nods no when asked if he has had cough or shortness of breath. PAST MEDICAL HISTORY: 1. Traumatic brain injury. 2. Dementia. 3. Hypertension. 4. Hyperlipidemia. 5. BPH. ALLERGIES: . MEDICATIONS: Prior to admission, medications reviewed. Current medications reviewed. SOCIAL HISTORY: He is a [facility] resident, otherwise unknown. FAMILY HISTORY: Unknown. REVIEW OF SYSTEMS: Unobtainable. PHYSICAL EXAMINATION: VITAL SIGNS: Temperature 99.5, pulse 77, blood pressure 165/91, respiratory rate 20, and saturating 97% on two liters. GENERAL: He is an elderly nonverbal, demented male, in no acute distress. Awake, but not alert. HEENT: Normocephalic and atraumatic. Oropharynx clear. NECK: Supple without lymphadenopathy. CHEST: Clear to auscultation bilaterally. No wheezing, rales or rhonchi. HEART: Regular rate and rhythm. ABDOMEN: Soft, nontender, nondistended. EXTREMITIES: Without cyanosis, clubbing, or edema. ANCILLARY DATA: White count 5.4, hemoglobin 12.2, and platelet count 227. Sodium 140, potassium 2.9, chloride 108, bicarbonate 25, BUN 5, creatinine 1, glucose 108, calcium 8.0, phosphorus 2, magnesium 1.7. TIBC 208, iron 64, saturation 31%, iron binding 144. LFTs within normal limits. Total protein 6.8. Albumin 2.7. Urinalysis, 2+ leukocyte esterase, positive nitrites, 2+ ketones, 4+ blood, 15 to 20 whites, and many bacteria. Chest x-ray from 10/27/2017 shows elevated left hemidiaphragm. Abdominal x-ray from 10/29/2017 shows enteric tube in stomach. ASSESSMENT: The patient is an 87-year-old, nonverbal, [facility] resident, history of dementia/traumatic brain injury, hypertension, hyperlipidemia, BPH, and dysphagia, presenting with worsening dysphagia in the setting of UTI. Pulmonary consultation is called for hypoxemia, which is very mild and he is stable from a respiratory standpoint. I doubt there is any underlying respiratory physiology, but we will work with hypoxemia further with an ABG, chest x-ray, duplex, D-dimer, and an echo. PROBLEM LIST: 1. Mild hypoxemia. 2. Dysphagia. 3. UTI. 4. Dementia/TBI. 5. Nonverbal at baseline. 6. Hypertension, hyperlipidemia, BPH. 7. MARIANGEL and hypernatremia, resolved. TREATMENT PLAN: 1. Echo. 2. Duplex. 3. D-dimer. 4. Chest x-ray. 5. ABG. 6. Monitor volumes and renal function, replete electrolytes, follow up Renal recommendations. 7. Continue antibiotics for E. coli UTI. 8. The patient is NPO, getting NG tube feeds, discussed with GI and will possibly have PEG placed tomorrow. 9. We will start heparin subcutaneous for DVT prophylaxis. 10. Optimize pulmonary hygiene/mobilize as tolerated. 11. P.r.n. DuoNebs. 12. The patient is a Full Code, but we will continue discuss goals of care, consider evaluation. Dr. Matias, thank you for allowing me to assist in the care of your patient. If I may be of any assistance in the future, please do not hesitate to ask. Fantasma Nielsen M.D. DR: ELIZABETH JOB#: [id number] CC:
[2017-10-30 16:00] VITALS: BP 127/81
--- NOTE | 2017-10-30 19:37 | Diagnostic Imaging Report ---
Indication: Dyspnea Technique: XRAY Chest 1v Comparison: 10/27/2017 FINDINGS/IMPRESSION: Stable cardiomegaly. Slight haziness of the pulmonary vascularity suggests mild interstitial edema. Unchanged elevation of the left hemidiaphragm. Costophrenic sulci remain sharp. No evidence of pneumothorax. There is osteopenia and degenerative change of the spine. No acute osseous abnormality.
--- NOTE | 2017-10-30 19:43 | Cardiology Report ---
APPROVED REPORT EXAM: Two-dimensional and M-mode echocardiogram with Doppler and color Doppler. INDICATION Congestive Heart Failure Technically difficult and limited study due to patient contracted. Study quality precludes accurate assessment of regional wall motion. M-mode measurements of left ventricle not obtainable due to cardiac position (angle). Normal left ventricular chamber size, systolic function and wall motion to extent visualized. Left ventricular ejection fraction estimated to be 60-65 %. Mild left ventricular hypertrophy. Possible small posterior pericardial effusion. All other cardiac chamber sizes are within normal limits. Mild focal aortic valve sclerosis with adequate cusp excursion. Mildly thickened mitral valve leaflets with normal excursion. Mild mitral annulus and aortic root calcification. Pulmonic valve not visualized. Normal tricuspid valve structure. IVC is normal in size with physiological collapse. A color flow and spectral Doppler study was performed and revealed: Mild aortic insufficiency. No mitral regurgitation. Mitral diastolic velocities suggest mild left ventricular diastolic dysfunction (Grade I). No tricuspid regurgitation.
[2017-10-30 20:00] VITALS: BP 144/74
[2017-10-30] MEDS: Heparin 5000 units/ml inj SUBQ SCH (20:42)
[2017-10-30] MEDS: Tamsulosin 0.4mg cap ORAL SCH (20:43)
[2017-10-31] VITALS (11 sets, daily range): BP systolic 127–178; BP diastolic 67–100
[2017-10-31 06:32] LABS: EOSINOPHILS % (AUTO) 3.3 % (0.0-3.0); HEMATOCRIT 41.1 % (42.0-52.0); HEMOGLOBIN 13.3 G/DL (14.2-18.0); LYMPHOCYTES % (AUTO) 50.6 % (20.0-45.0); MEAN CORPUSCULAR VOLUME 78 FL (80-99); MONOCYTES % (AUTO) 11.4 % (1.0-10.0); NEUTROPHILS % (AUTO) 32.6 % (45.0-75.0); PLATELET COUNT 216 K/UL (150-450); RED BLOOD COUNT 5.25 M/UL (4.70-6.10); RED CELL DISTRIBUTION WIDTH 14.3 % (11.6-14.8); WHITE BLOOD COUNT 4.4 K/UL (4.8-10.8)
[2017-10-31 06:43] LABS: ANION GAP 9 mmol/L (5-15); BLOOD UREA NITROGEN 4 mg/dL (7-18); CALCIUM 8.5 MG/DL (8.5-10.1); CARBON DIOXIDE 24 MMOL/L (21-32); CHLORIDE 107 MMOL/L (98-107); POTASSIUM 3.8 MMOL/L (3.5-5.1); SODIUM 140 MMOL/L (136-145)
[2017-10-31] MEDS: Heparin 5000 units/ml inj SUBQ SCH ×2 (09:00→20:27)
[2017-10-31] MEDS: Docusate 250mg cap ORAL SCH (09:00)
[2017-10-31] MEDS: Aspirin Baby 81mg ORAL SCH (09:00)
[2017-10-31] MEDS: cefTRIAXone 1 GM in D5W 55 ML IVPB SCH (09:00)
--- NOTE | 2017-10-31 11:03 | Anethesia Preoperative Eval ---
Anesthesia Pre-op PMH/ROS General Date of Evaluation: Oct 31, 2017 Anesthesiologist: James ASA Score: ASA 2 Mallampati Score Class I : Soft palate, uvula, fauces, pillars visible Class II: Soft palate, uvula, fauces visible Class III: Soft palate, base of uvula visible Class IV: Only hard plate visible Mallampati Classification: Class II Surgeon: Homer Diagnosis: Failure to thrive Surgical Procedure: EGD/PEG Anesthesia History: none Family History: no anesthesia problems Allergies: Coded Allergies: TERAZOSIN (Verified Allergy, Unknown, 10/27/17) Medications: see eMAR Past Medical History Cardiovascular: Reports: HTN, other - HLD; Denies: CAD, [place], valve dz, arrhythmia Pulmonary: Denies: asthma, COPD, DEAN, other Gastrointestinal/Genitourinary: Reports: GERD; Denies: CRI, ESRD, other Neurologic/Psychiatric: Reports: dementia; Denies: CVA, depression/anxiety, TIA, other Endocrine: Denies: DM, hypothyroidism, steroids, other HEENT: Denies: cataract (L), cataract (R), glaucoma, MOHEGAN (L), MOHEGAN (R), other Hematology/Immune: Denies: anemia, DVT, bleeding disorder, other Musculoskeletal/Integumentary: Denies: OA, RA, DJD, DDD, edema, other PSxH Narrative: Denies Anesthesia Pre-op Phys. Exam Physician Exam Last Vital Signs Date Time Temp Pulse Resp B/P (MAP) Pulse Ox O2 Delivery O2 Flow Rate FiO2 10/31/17 08:00 97.2 56 21 143/76 (98) 99 97.2 10/31/17 07:30 Room Air 21 Constitutional: NAD Cardiovascular: RRR Respiratory: CTA Airway Exam Mallampati Score: Class II MO: limited ROM: limited Anesthesia Pre-op A/P Labs Hematology Test 10/31/17 05:10 White Blood Count 4.4 K/UL (4.8-10.8) L Red Blood Count 5.25 M/UL (4.70-6.10) Hemoglobin 13.3 G/DL (14.2-18.0) L Hematocrit 41.1 % (42.0-52.0) L Mean Corpuscular Volume 78 FL (80-99) L Mean Corpuscular Hemoglobin 25.4 PG (27.0-31.0) L Mean Corpuscular Hemoglobin Concent 32.4 G/DL (32.0-36.0) Red Cell Distribution Width 14.3 % (11.6-14.8) Platelet Count 216 K/UL (150-450) Mean Platelet Volume 7.5 FL (6.5-10.1) Neutrophils (%) (Auto) 32.6 % (45.0-75.0) L Lymphocytes (%) (Auto) 50.6 % (20.0-45.0) H Monocytes (%) (Auto) 11.4 % (1.0-10.0) H Eosinophils (%) (Auto) 3.3 % (0.0-3.0) H Basophils (%) (Auto) 2.0 % (0.0-2.0) Coagulation Test 10/30/17 12:50 10/31/17 05:10 D-Dimer 3.91 mg/L FEU (0.00-0.49) H Prothrombin Time 10.9 SEC (9.30-11.50) Prothromb Time International Ratio 1.0 (0.9-1.1) Activated Partial Thromboplast Time 29 SEC (23-33) Chemistry Test 10/31/17 05:10 Sodium Level 140 MMOL/L (136-145) Potassium Level 3.8 MMOL/L (3.5-5.1) Chloride Level 107 MMOL/L (98-107) Carbon Dioxide Level 24 MMOL/L (21-32) Anion Gap 9 mmol/L (5-15) Blood Urea Nitrogen 4 mg/dL (7-18) L Creatinine 1.0 MG/DL (0.55-1.30) Estimat Glomerular Filtration Rate mL/min (>60) Glucose Level 97 MG/DL (74-106) Calcium Level 8.5 MG/DL (8.5-10.1) Risk Assessment & Plan Assessment: ASA III Plan: MAC Status Change Before Surgery: No Pre-Antibiotics Drug: Ancef 1g Given Within 1 Hr of Incision: Cate Nixon MD Oct 31, 2017 11:03
[2017-10-31] MEDS ORDERED: Lidocaine 1% MPF 10mg/ml 5ml ONE (11:30)
[2017-10-31] MEDS ORDERED: Propofol 200mg/20ml IV ONE (11:30)
[2017-10-31] MEDS ORDERED: LR 1000ml 1,000 ML IVLG SCH (11:31)
[2017-10-31] MEDS ORDERED: NS 500ML IVPB ONE (11:40)
--- NOTE | 2017-10-31 11:42 | Nephrology Progress Note ---
Assessment/Plan Problem List: (1) Dehydration (2) Dysphagia (3) UTI (urinary tract infection) (4) Hypokalemia Assessment Dysphagia UTI (urinary tract infection) Dehydration and hypernatremia Sepsis Plan IV KCL- NGT , all meds via NGT D5W ST eval Keep BP in check ? PEG Subjective ROS Limited/Unobtainable: Yes Constitutional: Reports: other - not verbal Objective Objective Last 24 Hour Vital Signs Date Time Temp Pulse Resp B/P (MAP) Pulse Ox O2 Delivery O2 Flow Rate FiO2 10/31/17 08:00 97.2 56 21 143/76 (98) 99 97.2 10/31/17 07:30 68 20 Room Air 21 10/31/17 04:00 97.3 77 21 136/86 (103) 100 97.3 10/31/17 00:00 97.5 71 21 136/89 (105) 100 97.5 10/30/17 20:00 97.9 67 20 144/74 (97) 97 97.9 10/30/17 18:00 72 127/81 10/30/17 16:00 98.9 72 18 127/81 (96) 98 98.9 10/30/17 12:00 98.4 61 18 131/78 (95) 99 98.4 Intake and Output 10/30/17 10/31/17 19:00 07:00 Intake Total 900 ml Output Total 1000 ml 650 ml Balance -1000 ml 250 ml Intake IV Total 900 ml Output Urine Total 1000 ml 650 ml # Bowel Movements 1 Laboratory Tests 10/30/17 12:50: D-Dimer 3.91H 10/30/17 14:50: Arterial Blood pH 7.419, Arterial Blood Partial Pressure CO2 32.1L, Arterial Blood Partial Pressure O2 95.2, Arterial Blood HCO3 20.3L, Arterial Blood Oxygen Saturation 96.9, Arterial Blood Base Excess -3.2, Ebenezer Test Positive 10/31/17 05:10: White Blood Count 4.4L, Red Blood Count 5.25, Hemoglobin 13.3L, Hematocrit 41.1L , Mean Corpuscular Volume 78L, Mean Corpuscular Hemoglobin 25.4L, Mean Corpuscular Hemoglobin Concent 32.4, Red Cell Distribution Width 14.3, Platelet Count 216, Mean Platelet Volume 7.5, Neutrophils (%) (Auto) 32.6L, Lymphocytes ( %) (Auto) 50.6H, Monocytes (%) (Auto) 11.4H, Eosinophils (%) (Auto) 3.3H, Basophils (%) (Auto) 2.0, Prothrombin Time 10.9, Prothromb Time International Ratio 1.0, Activated Partial Thromboplast Time 29, Sodium Level 140, Potassium Level 3.8, Chloride Level 107, Carbon Dioxide Level 24, Anion Gap 9, Blood Urea Nitrogen 4L, Creatinine 1.0, Estimat Glomerular Filtration Rate , Glucose Level 97, Calcium Level 8.5 Height (Feet): 5 Height (Inches): 5.00 Weight (Pounds): 160 General Appearance: no apparent distress Objective no change Randolph Fernandes MD Oct 31, 2017 11:42
[2017-10-31] MEDS ORDERED: DiphenhydrAMINE 50mg/ml Inj IVP PRN (11:45)
[2017-10-31] MEDS ORDERED: Labetalol 5mg/ml 20ml vial IV PRN (11:45)
--- NOTE | 2017-10-31 11:54 | Pre-Procedure Note/Attestation ---
Pre-Procedure Note/Attestation Complete Prior to Procedure Planned Procedure: not applicable Procedure Narrative: egd/peg Indications for Procedure Pre-Operative Diagnosis: dysphagia Attestation I attest that I discussed the nature of the procedure; its benefits; risks and complications; and alternatives (and the risks and benefits of such alternatives ), prior to the procedure, with the patient (or the patient's legal sales representative malt liquors). I attest that, if there was a reasonable possibility of needing a blood transfusion, the patient (or the patient's legal sales representative malt liquors) was given the [facility] standardized written summary, pursuant to the Rolando Kip Blood Safety Act ([place] Health and Safety Code # 1645, as amended). I attest that I re-evaluated the patient just prior to the surgery and that there has been no change in the patient's H&P, except as documented below: Juan Coronel MD Oct 31, 2017 11:54
--- NOTE | 2017-10-31 12:09 | Endoscopy Procedure Note ---
Endoscopy Procedure Note General Indication for Procedure: dysphagia Procedures Performed: EGD, PEG Operative Findings/Diagnosis: gastriris Specimen: yes Pt Tolerated Procedure Well: Yes Estimated Blood Loss: none Anesthesia Anesthesiologist: jeni Anesthesia: MAC Inserted Devices Implant(s) used?: No GI Core Measures 50 yrs or older w/o bx or poly: Not Applicable 10yrs. F/U not recommended: Not Applicable Juan Coronel MD Oct 31, 2017 12:09
--- NOTE | 2017-10-31 12:21 | 48 Hour Post Anesthesia Eval ---
Post Anesthesia Evaluation Procedure: EGD and PEG Date of Evaluation: Oct 31, 2017 Airway: patent Nausea: No Vomiting: No Pain Intensity: 0 Hydration Status: adequate Cardiopulmonary Status: at baseline Mental Status/LOC: patient returned to baseline Post-Anesthesia Complications: 0 Follow-up care needed: N/A - further care as per primary team Cate Jarvis MD Oct 31, 2017 12:21
--- NOTE | 2017-10-31 12:21 | Immediate Post-Op Evaluation ---
Immediate Post-Op Evalulation Immediate Post-Op Evalulation Procedure: EGD and PEG Date of Evaluation: Oct 31, 2017 Time of Evaluation: 12:22 IV Fluids: 200 Blood Products: 0 Estimated Blood Loss: min Urinary Output: 0 Blood Pressure Systolic: 158 Blood Pressure Diastolic: 84 Pulse Rate: 65 Respiratory Rate: 16 O2 Sat by Pulse Oximetry: 100 Temperature (Fahrenheit): 97 Pain Score (1-10): 0 Nausea: No Vomiting: No Complications 0 Patient Status: awake, reacts, patent, none Hydration Status: adequate Drug: Rocephin Given Within 1 Hr of Incision: Yes Cate Jarvis MD Oct 31, 2017 12:21
--- NOTE | 2017-10-31 13:42 | General Progress Note ---
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 -lexapro 10mg qam -provided ro/st Subjective Date patient seen: Oct 31, 2017 Neurologic/Psychiatric: Reports: anxiety, depressed, emotional problems Allergies: Coded Allergies: TERAZOSIN (Verified Allergy, Unknown, 10/27/17) Objective Last 24 Hour Vital Signs Date Time Temp Pulse Resp B/P (MAP) Pulse Ox O2 Delivery O2 Flow Rate FiO2 10/31/17 12:45 97.4 75 17 168/90 97 Nasal Cannula 3 97.4 10/31/17 12:40 83 20 178/90 98 Nasal Cannula 3 10/31/17 12:25 70 20 155/89 100 Nasal Cannula 3 10/31/17 12:21 206.6 65 16 100 10/31/17 12:20 71 17 159/88 99 Nasal Cannula 3 10/31/17 12:17 97.0 59 15 158/84 100 Nasal Cannula 3 97.0 10/31/17 12:00 97.5 56 22 139/67 (91) 100 97.5 10/31/17 08:00 97.2 56 21 143/76 (98) 99 97.2 10/31/17 07:30 68 20 Room Air 21 10/31/17 04:00 97.3 77 21 136/86 (103) 100 97.3 10/31/17 00:00 97.5 71 21 136/89 (105) 100 97.5 10/30/17 20:00 97.9 67 20 144/74 (97) 97 97.9 10/30/17 18:00 72 127/81 10/30/17 16:00 98.9 72 18 127/81 (96) 98 98.9 Intake and Output 10/30/17 10/31/17 19:00 07:00 Intake Total 900 ml Output Total 1000 ml 650 ml Balance -1000 ml 250 ml Intake IV Total 900 ml Output Urine Total 1000 ml 650 ml # Bowel Movements 1 Laboratory Tests 10/30/17 14:50: Arterial Blood pH 7.419, Arterial Blood Partial Pressure CO2 32.1L, Arterial Blood Partial Pressure O2 95.2, Arterial Blood HCO3 20.3L, Arterial Blood Oxygen Saturation 96.9, Arterial Blood Base Excess -3.2, Ebenezer Test Positive 10/31/17 05:10: White Blood Count 4.4L, Red Blood Count 5.25, Hemoglobin 13.3L, Hematocrit 41.1L , Mean Corpuscular Volume 78L, Mean Corpuscular Hemoglobin 25.4L, Mean Corpuscular Hemoglobin Concent 32.4, Red Cell Distribution Width 14.3, Platelet Count 216, Mean Platelet Volume 7.5, Neutrophils (%) (Auto) 32.6L, Lymphocytes ( %) (Auto) 50.6H, Monocytes (%) (Auto) 11.4H, Eosinophils (%) (Auto) 3.3H, Basophils (%) (Auto) 2.0, Prothrombin Time 10.9, Prothromb Time International Ratio 1.0, Activated Partial Thromboplast Time 29, Sodium Level 140, Potassium Level 3.8, Chloride Level 107, Carbon Dioxide Level 24, Anion Gap 9, Blood Urea Nitrogen 4L, Creatinine 1.0, Estimat Glomerular Filtration Rate , Glucose Level 97, Calcium Level 8.5 Height (Feet): 5 Height (Inches): 5.00 Weight (Pounds): 160 General Appearance: no apparent distress, alert, confused Neurologic: depressed affect Lauren Santoyo MD Oct 31, 2017 13:41
--- NOTE | 2017-10-31 14:28 | Infectious Diseases Prog Note ---
Assessment/Plan Assessment/Plan A; E.coli UTI Dysphagia Dementia BPH s/p CVA P; continue Rocephin Subjective ROS Limited/Unobtainable: Yes Gastrointestinal/Abdominal: Reports: other - had EGD & PEG placement Allergies: Coded Allergies: TERAZOSIN (Verified Allergy, Unknown, 10/27/17) Objective Vital Signs Last 24 Hour Vital Signs Date Time Temp Pulse Resp B/P (MAP) Pulse Ox O2 Delivery O2 Flow Rate FiO2 10/31/17 12:45 97.4 75 17 168/90 97 Nasal Cannula 3 97.4 10/31/17 12:40 83 20 178/90 98 Nasal Cannula 3 10/31/17 12:25 70 20 155/89 100 Nasal Cannula 3 10/31/17 12:21 206.6 65 16 100 10/31/17 12:20 71 17 159/88 99 Nasal Cannula 3 10/31/17 12:17 97.0 59 15 158/84 100 Nasal Cannula 3 97.0 10/31/17 12:00 97.5 56 22 139/67 (91) 100 97.5 10/31/17 08:00 97.2 56 21 143/76 (98) 99 97.2 10/31/17 07:30 68 20 Room Air 21 10/31/17 04:00 97.3 77 21 136/86 (103) 100 97.3 10/31/17 00:00 97.5 71 21 136/89 (105) 100 97.5 10/30/17 20:00 97.9 67 20 144/74 (97) 97 97.9 10/30/17 18:00 72 127/81 10/30/17 16:00 98.9 72 18 127/81 (96) 98 98.9 Height (Feet): 5 Height (Inches): 5.00 Weight (Pounds): 160 General Appearance: no acute distress HEENT: mucous membranes moist Respiratory/Chest: lungs clear Cardiovascular: normal rate Abdomen: soft, non tender, other - GT feeding Extremities: no edema Neurologic/Psychiatric: aphasia Laboratory Tests Test 10/30/17 14:50 10/31/17 05:10 Arterial Blood pH 7.419 (7.350-7.450) Arterial Blood Partial Pressure CO2 32.1 mmHg (35.0-45.0) L Arterial Blood Partial Pressure O2 95.2 mmHg (75.0-100.0) Arterial Blood HCO3 20.3 mmol/L (22.0-26.0) L Arterial Blood Oxygen Saturation 96.9 % (92.0-98.0) Arterial Blood Base Excess -3.2 Ebenezer Test Positive White Blood Count 4.4 K/UL (4.8-10.8) L Red Blood Count 5.25 M/UL (4.70-6.10) Hemoglobin 13.3 G/DL (14.2-18.0) L Hematocrit 41.1 % (42.0-52.0) L Mean Corpuscular Volume 78 FL (80-99) L Mean Corpuscular Hemoglobin 25.4 PG (27.0-31.0) L Mean Corpuscular Hemoglobin Concent 32.4 G/DL (32.0-36.0) Red Cell Distribution Width 14.3 % (11.6-14.8) Platelet Count 216 K/UL (150-450) Mean Platelet Volume 7.5 FL (6.5-10.1) Neutrophils (%) (Auto) 32.6 % (45.0-75.0) L Lymphocytes (%) (Auto) 50.6 % (20.0-45.0) H Monocytes (%) (Auto) 11.4 % (1.0-10.0) H Eosinophils (%) (Auto) 3.3 % (0.0-3.0) H Basophils (%) (Auto) 2.0 % (0.0-2.0) Prothrombin Time 10.9 SEC (9.30-11.50) Prothromb Time International Ratio 1.0 (0.9-1.1) Activated Partial Thromboplast Time 29 SEC (23-33) Sodium Level 140 MMOL/L (136-145) Potassium Level 3.8 MMOL/L (3.5-5.1) Chloride Level 107 MMOL/L (98-107) Carbon Dioxide Level 24 MMOL/L (21-32) Anion Gap 9 mmol/L (5-15) Blood Urea Nitrogen 4 mg/dL (7-18) L Creatinine 1.0 MG/DL (0.55-1.30) Estimat Glomerular Filtration Rate mL/min (>60) Glucose Level 97 MG/DL (74-106) Calcium Level 8.5 MG/DL (8.5-10.1) Current Medications Medications (Trade) Dose Ordered Sig/Ruthie Route PRN Reason Start Time Stop Time Status Last Admin Dose Admin Acetaminophen (Tylenol) 650 mg Q4H PRN ORAL Mild Pain/Temp > 100.5 10/27/17 19:00 11/26/17 18:59 Acetaminophen (Tylenol) 650 mg Q4H PRN ORAL Mild Pain (Pain Scale 1-3) 10/31/17 11:45 10/31/17 16:00 Albuterol/ Ipratropium (Albuterol/ Ipratropium) 3 ml Q4H PRN HHN Shortness of Breath 10/30/17 12:30 11/04/17 12:29 Amlodipine Besylate (Norvasc) 5 mg BID NG 10/29/17 18:00 11/27/17 08:59 10/29/17 18:26 Aspirin (ASA) 81 mg DAILY ORAL 10/28/17 09:00 11/27/17 08:59 10/28/17 08:46 Bisacodyl (Dulcolax) 10 mg DAILYPRN PRN RECTAL Constipation 10/29/17 10:15 11/26/17 19:14 Ceftriaxone Sodium 1 gm/ Dextrose 55 ml @ 110 mls/hr DAILY IVPB 10/28/17 09:00 11/04/17 08:59 10/31/17 09:00 Dextrose 1,000 ml @ 75 mls/hr [id number] IV 10/28/17 09:42 11/27/17 09:41 10/31/17 09:00 Diphenhydramine HCl (Benadryl) 25 mg Q15M PRN IVP Itching 10/31/17 11:45 10/31/17 16:00 Docusate Sodium (Colace) 250 mg DAILY ORAL 10/28/17 09:00 11/27/17 08:59 10/28/17 08:46 Escitalopram Oxalate (Lexapro) 10 mg DAILY GT 10/31/17 09:00 11/30/17 08:59 Heparin Sodium (Porcine) (Heparin 5000 units/ml) 5,000 units EVERY 12 HOURS SUBQ 10/30/17 21:00 11/29/17 20:59 10/30/17 20:42 Hydralazine HCl (Apresoline) 5 mg Q30M PRN IV SBP>160 OR___/DBP>90 OR___ 10/31/17 11:45 10/31/17 16:00 Labetalol HCl (Normodyne) 5 mg Q10M PRN IV SBP>160 or____/ DBP>90 or 10/31/17 11:45 10/31/17 16:00 Lactated Ringer's 1,000 ml @ 10 mls/hr Q24H IVLG 10/31/17 11:31 10/31/17 16:00 Magnesium Hydroxide (Mom) 30 ml HSPRN PRN NG Constipation 10/29/17 10:15 11/26/17 19:14 Ondansetron HCl (Zofran) 4 mg Q1H PRN IVP Nausea & Vomiting 10/31/17 11:45 10/31/17 16:00 Pantoprazole (Protonix) 40 mg DAILY ORAL 10/28/17 09:47 11/27/17 09:46 Tamsulosin HCl (Flomax) 0.4 mg BEDTIME ORAL 10/27/17 21:00 11/26/17 20:59 10/28/17 20:41 Anam Cruz MD Oct 31, 2017 14:28
--- NOTE | 2017-10-31 16:15 | Procedure Note ---
DATE OF PROCEDURE: 10/31/2017 SURGEON: Juan Coronel M.D. ANESTHESIOLOGIST: Dr. Ramirez. REFERRING PHYSICIAN: Trish Matias M.D. PROCEDURE: Upper endoscopy with biopsy and PEG placement. ANESTHESIA: Per Dr. Ramirez. INSTRUMENT: Olympus adult flexible upper endoscope. INDICATION: Dysphagia. The procedure, risks, benefits, and possible consequences, including hemorrhage, aspiration, perforation and infection, and alternative treatments, were explained to the patient/legal guardian by Dr. Juan Coronel and the patient/legal guardian understood and accepted these risks. DESCRIPTION OF PROCEDURE: After informed consent was obtained and the patient was adequately sedated, Olympus upper endoscope was advanced from the mouth into the second portion of duodenum and retroflexion was performed in the stomach. The patient had diffuse gastritis. Random biopsy from antrum was obtained to rule out H. pylori infection. Then under endoscopic guidance, under sterile condition, a 20-Mosotho pull type of G-tube was successfully placed in the epigastric area. The distance from the tip of the tube to skin was about 3 cm in size. The patient tolerated the procedure very well without any complication. SUMMARY OF FINDINGS: 1. Status post EGD with biopsy of gastritis. 2. Status post successful PEG placement. RECOMMENDATIONS: Follow up biopsy results and treat accordingly. Abdominal binder. Elevate the head of the bed at all times. G-tube flush. G-tube care. Start tube feeding later today. The patient received a dose of antibiotics this morning. I want to thank Dr. Trish Matias for this kind referral. Juan Coronel M.D. DR: Magda JOB#: [id number] CC:
[2017-10-31] MEDS ORDERED: Sterile Water Irrig 1000ml IRRIG ONE (16:31)
--- NOTE | 2017-10-31 17:50 | Pulmonology Progress Note ---
Assessment/Plan Problems: (1) PEG (percutaneous endoscopic gastrostomy) status (2) Elevated d-dimer (3) Hypoxemia (4) Dysphagia (5) UTI (urinary tract infection) (6) Sepsis Assessment/Plan ASSESSMENT: The patient is an 87-year-old, nonverbal, senior care resident, history of dementia/traumatic brain injury, hypertension, hyperlipidemia, BPH, and dysphagia, presenting with worsening dysphagia in the setting of UTI. He is now S/P PEG. He has e/o hypoxemia with a mild respiratory alkalosis with elevated D-dimer, thus will be ruled out for PE. PROBLEM LIST: 1. Acute hypoxemia --> mild respiratory alkalosis with an elevated D-Dimer and negative duplex 2. Dysphagia S/P PEG 10/31 3. UTI. 4. Dementia/TBI. 5. Nonverbal at baseline. 6. Hypertension, hyperlipidemia, BPH. 7. MARIANGEL and hypernatremia, resolved. TREATMENT PLAN: 1. STAT CT-A R/P PE 2. Optimize pulmonary hygiene/mobilize as tolerated. PRN HHN's, IS. 3. Titrate down FiO2 to keep SaO2 > 92% 4. Monitor volumes and renal function, IVF per renal 5. Abx for E coli UTI per ID 6. NPO, GTF's, outpatient [employer] therapy 7. DVT Px: Hep SQ 8. FC, continue to discuss GOC. Subjective Allergies: Coded Allergies: TERAZOSIN (Verified Allergy, Unknown, 10/27/17) Subjective AFVSS, on 3L, S/p PEG 7.41/32/95/20/97, DD 3.91, duplex neg No Cough, no respiratory distress Objective Last 24 Hour Vital Signs Date Time Temp Pulse Resp B/P (MAP) Pulse Ox O2 Delivery O2 Flow Rate FiO2 10/31/17 16:00 96.8 92 22 149/100 (116) 99 96.8 10/31/17 12:45 97.4 75 17 168/90 97 Nasal Cannula 3 97.4 10/31/17 12:40 83 20 178/90 98 Nasal Cannula 3 10/31/17 12:25 70 20 155/89 100 Nasal Cannula 3 10/31/17 12:21 206.6 65 16 100 10/31/17 12:20 71 17 159/88 99 Nasal Cannula 3 10/31/17 12:17 97.0 59 15 158/84 100 Nasal Cannula 3 97.0 10/31/17 12:00 97.5 56 22 139/67 (91) 100 97.5 10/31/17 08:00 97.2 56 21 143/76 (98) 99 97.2 10/31/17 07:30 68 20 Room Air 21 10/31/17 04:00 97.3 77 21 136/86 (103) 100 97.3 10/31/17 00:00 97.5 71 21 136/89 (105) 100 97.5 10/30/17 20:00 97.9 67 20 144/74 (97) 97 97.9 10/30/17 18:00 72 127/81 Intake and Output 10/30/17 10/31/17 19:00 07:00 Intake Total 900 ml Output Total 1000 ml 650 ml Balance -1000 ml 250 ml Intake IV Total 900 ml Output Urine Total 1000 ml 650 ml # Bowel Movements 1 General Appearance: cachetic HEENT: normocephalic, atraumatic, anicteric, mucous membranes moist Respiratory/Chest: chest wall non-tender, lungs clear, normal breath sounds, no respiratory distress Cardiovascular: normal peripheral pulses, normal rate, regular rhythm Abdomen: normal bowel sounds, soft, non tender, no organomegaly, non distended , no mass, other - S/P PEG Extremities: no cyanosis, no clubbing, no edema Laboratory Tests 10/31/17 05:10: White Blood Count 4.4L, Red Blood Count 5.25, Hemoglobin 13.3L, Hematocrit 41.1L , Mean Corpuscular Volume 78L, Mean Corpuscular Hemoglobin 25.4L, Mean Corpuscular Hemoglobin Concent 32.4, Red Cell Distribution Width 14.3, Platelet Count 216, Mean Platelet Volume 7.5, Neutrophils (%) (Auto) 32.6L, Lymphocytes ( %) (Auto) 50.6H, Monocytes (%) (Auto) 11.4H, Eosinophils (%) (Auto) 3.3H, Basophils (%) (Auto) 2.0, Prothrombin Time 10.9, Prothromb Time International Ratio 1.0, Activated Partial Thromboplast Time 29, Sodium Level 140, Potassium Level 3.8, Chloride Level 107, Carbon Dioxide Level 24, Anion Gap 9, Blood Urea Nitrogen 4L, Creatinine 1.0, Estimat Glomerular Filtration Rate , Glucose Level 97, Calcium Level 8.5 Current Medications Medications (Trade) Dose Ordered Sig/Ruthie Route PRN Reason Start Time Stop Time Status Last Admin Dose Admin Acetaminophen (Tylenol) 650 mg Q4H PRN ORAL Mild Pain/Temp > 100.5 10/27/17 19:00 11/26/17 18:59 Albuterol/ Ipratropium (Albuterol/ Ipratropium) 3 ml Q4H PRN HHN Shortness of Breath 10/30/17 12:30 11/04/17 12:29 Amlodipine Besylate (Norvasc) 5 mg BID NG 10/29/17 18:00 11/27/17 08:59 10/29/17 18:26 Aspirin (ASA) 81 mg DAILY ORAL 10/28/17 09:00 11/27/17 08:59 10/28/17 08:46 Bisacodyl (Dulcolax) 10 mg DAILYPRN PRN RECTAL Constipation 10/29/17 10:15 11/26/17 19:14 Ceftriaxone Sodium 1 gm/ Dextrose 55 ml @ 110 mls/hr DAILY IVPB 10/28/17 09:00 11/04/17 08:59 10/31/17 09:00 Docusate Sodium (Colace) 250 mg DAILY ORAL 10/28/17 09:00 11/27/17 08:59 10/28/17 08:46 Escitalopram Oxalate (Lexapro) 10 mg DAILY GT 10/31/17 09:00 11/30/17 08:59 Heparin Sodium (Porcine) (Heparin 5000 units/ml) 5,000 units EVERY 12 HOURS SUBQ 10/30/17 21:00 11/29/17 20:59 10/30/17 20:42 Magnesium Hydroxide (Mom) 30 ml HSPRN PRN NG Constipation 10/29/17 10:15 11/26/17 19:14 Pantoprazole (Protonix) 40 mg DAILY ORAL 10/28/17 09:47 11/27/17 09:46 Tamsulosin HCl (Flomax) 0.4 mg BEDTIME ORAL 10/27/17 21:00 11/26/17 20:59 10/28/17 20:41 Fantasma Nielsen MD Oct 31, 2017 17:50
[2017-10-31] MEDS ORDERED: Isovue-370 150ml vial INJ PRN (18:15)
[2017-10-31] MEDS: Tamsulosin 0.4mg cap ORAL SCH (20:26)
--- NOTE | 2017-10-31 21:09 | General Progress Note ---
Assessment/Plan Problem List: (1) Sepsis ICD Codes: A41.9 - Sepsis, unspecified organism SNOMED: 22583971, [id number] Qualifiers: Qualified Codes: A41.9 - Sepsis, unspecified organism (2) Dehydration ICD Codes: E86.0 - Dehydration SNOMED: 61646595, 758072539 (3) Dysphagia ICD Codes: R13.10 - Dysphagia, unspecified SNOMED: 06518417, 985229932 Qualifiers: Qualified Codes: R13.10 - Dysphagia, unspecified (4) UTI (urinary tract infection) ICD Codes: N39.0 - Urinary tract infection, site not specified SNOMED: 01802922, 285677564 Qualifiers: Qualified Codes: N39.0 - Urinary tract infection, site not specified Status: progressing Assessment/Plan confused failed swallow study s/p peg per dr smith demented sepsis afebrile abx per id Subjective ROS Limited/Unobtainable: Yes Allergies: Coded Allergies: TERAZOSIN (Verified Allergy, Unknown, 10/27/17) Objective Last 24 Hour Vital Signs Date Time Temp Pulse Resp B/P (MAP) Pulse Ox O2 Delivery O2 Flow Rate FiO2 10/31/17 20:26 71 149/100 10/31/17 20:15 97.8 103 20 127/79 (95) 95 97.8 10/31/17 19:52 71 20 Room Air 21 10/31/17 16:00 96.8 92 22 149/100 (116) 99 96.8 10/31/17 12:45 97.4 75 17 168/90 97 Nasal Cannula 3 97.4 10/31/17 12:40 83 20 178/90 98 Nasal Cannula 3 10/31/17 12:25 70 20 155/89 100 Nasal Cannula 3 10/31/17 12:21 206.6 65 16 100 10/31/17 12:20 71 17 159/88 99 Nasal Cannula 3 10/31/17 12:17 97.0 59 15 158/84 100 Nasal Cannula 3 97.0 10/31/17 12:00 97.5 56 22 139/67 (91) 100 97.5 10/31/17 08:00 97.2 56 21 143/76 (98) 99 97.2 10/31/17 07:30 68 20 Room Air 21 10/31/17 04:00 97.3 77 21 136/86 (103) 100 97.3 10/31/17 00:00 97.5 71 21 136/89 (105) 100 97.5 Intake and Output 10/30/17 10/31/17 19:00 07:00 Intake Total 900 ml Output Total 1000 ml 650 ml Balance -1000 ml 250 ml IV Total 900 ml Output Urine Total 1000 ml 650 ml # Bowel Movements 1 Laboratory Tests 10/31/17 05:10: White Blood Count 4.4L, Red Blood Count 5.25, Hemoglobin 13.3L, Hematocrit 41.1L , Mean Corpuscular Volume 78L, Mean Corpuscular Hemoglobin 25.4L, Mean Corpuscular Hemoglobin Concent 32.4, Red Cell Distribution Width 14.3, Platelet Count 216, Mean Platelet Volume 7.5, Neutrophils (%) (Auto) 32.6L, Lymphocytes ( %) (Auto) 50.6H, Monocytes (%) (Auto) 11.4H, Eosinophils (%) (Auto) 3.3H, Basophils (%) (Auto) 2.0, Prothrombin Time 10.9, Prothromb Time International Ratio 1.0, Activated Partial Thromboplast Time 29, Sodium Level 140, Potassium Level 3.8, Chloride Level 107, Carbon Dioxide Level 24, Anion Gap 9, Blood Urea Nitrogen 4L, Creatinine 1.0, Estimat Glomerular Filtration Rate , Glucose Level 97, Calcium Level 8.5 Height (Feet): 5 Height (Inches): 5.00 Weight (Pounds): 160 General Appearance: confused Cardiovascular: normal rate Respiratory/Chest: lungs clear Trish Matias MD Oct 31, 2017 21:09
[2017-11-01] VITALS: BP 145/83
[2017-11-01 04:10] VITALS: BP 170/100
[2017-11-01 05:52] VITALS: BP 155/81
[2017-11-01 07:50] LABS: BASOPHILS % (AUTO) 0.8 % (0.0-2.0); EOSINOPHILS % (AUTO) 0.8 % (0.0-3.0); HEMATOCRIT 45.1 % (42.0-52.0); HEMOGLOBIN 14.9 G/DL (14.2-18.0); LYMPHOCYTES % (AUTO) 18.4 % (20.0-45.0); MEAN CORPUSCULAR VOLUME 78 FL (80-99); MONOCYTES % (AUTO) 10.9 % (1.0-10.0); NEUTROPHILS % (AUTO) 69.1 % (45.0-75.0); PLATELET COUNT 263 K/UL (150-450); RED BLOOD COUNT 5.75 M/UL (4.70-6.10); RED CELL DISTRIBUTION WIDTH 14.2 % (11.6-14.8); WHITE BLOOD COUNT 8.1 K/UL (4.8-10.8)
[2017-11-01 08:00] VITALS: BP 146/83
[2017-11-01 08:04] LABS: ANION GAP 10 mmol/L (5-15); BLOOD UREA NITROGEN 11 mg/dL (7-18); CALCIUM 9.6 MG/DL (8.5-10.1); CARBON DIOXIDE 24 MMOL/L (21-32); CHLORIDE 108 MMOL/L (98-107); CREATININE 1.1 MG/DL (0.55-1.30); POTASSIUM 3.6 MMOL/L (3.5-5.1); SODIUM 142 MMOL/L (136-145)
[2017-11-01] MEDS: Docusate 250mg cap ORAL SCH (10:09)
[2017-11-01] MEDS: Aspirin Baby 81mg ORAL SCH (10:09)
[2017-11-01] MEDS: Heparin 5000 units/ml inj SUBQ SCH (10:11)
[2017-11-01] MEDS: cefTRIAXone 1 GM in D5W 55 ML IVPB SCH (10:20)
[2017-11-01] MEDS ORDERED: Lisinopril 10mg tab GT SCH (10:22)
--- NOTE | 2017-11-01 10:24 | Nephrology Progress Note ---
Assessment/Plan Problem List: (1) Dehydration (2) Dysphagia (3) UTI (urinary tract infection) (4) Hypokalemia Assessment Now has PEG Dysphagia UTI (urinary tract infection) Dehydration and hypernatremia Sepsis Plan all meds via GT adjust BP meds Keep BP in check Dc planning Subjective ROS Limited/Unobtainable: No Objective Objective Last 24 Hour Vital Signs Date Time Temp Pulse Resp B/P (MAP) Pulse Ox O2 Delivery O2 Flow Rate FiO2 11/01/17 05:52 155/81 (105) 11/01/17 04:26 97 170/100 11/01/17 04:10 98.4 21 170/100 (123) 97 98.4 11/01/17 00:00 99.2 97 20 145/83 (103) 96 99.2 10/31/17 21:09 Nasal Cannula 2.0 10/31/17 20:26 71 149/100 10/31/17 20:15 97.8 103 20 127/79 (95) 95 97.8 10/31/17 19:52 71 20 Room Air 21 10/31/17 16:00 96.8 92 22 149/100 (116) 99 96.8 10/31/17 12:45 97.4 75 17 168/90 97 Nasal Cannula 3 97.4 10/31/17 12:40 83 20 178/90 98 Nasal Cannula 3 10/31/17 12:25 70 20 155/89 100 Nasal Cannula 3 10/31/17 12:21 206.6 65 16 100 10/31/17 12:20 71 17 159/88 99 Nasal Cannula 3 10/31/17 12:17 97.0 59 15 158/84 100 Nasal Cannula 3 97.0 10/31/17 12:00 97.5 56 22 139/67 (91) 100 97.5 Intake and Output 10/31/17 11/01/17 19:00 07:00 Intake Total 735 ml 800 ml Output Total 850 ml 250 ml Balance -115 ml 550 ml Intake Free Water 100 ml 300 ml IV Total 555 ml Tube Feeding 80 ml 500 ml Output Urine Total 850 ml 250 ml Laboratory Tests 11/01/17 07:15: White Blood Count 8.1#, Red Blood Count 5.75, Hemoglobin 14.9, Hematocrit 45.1, Mean Corpuscular Volume 78L, Mean Corpuscular Hemoglobin 25.9L, Mean Corpuscular Hemoglobin Concent 33.1, Red Cell Distribution Width 14.2, Platelet Count 263, Mean Platelet Volume 7.4, Neutrophils (%) (Auto) 69.1, Lymphocytes (% ) (Auto) 18.4L, Monocytes (%) (Auto) 10.9H, Eosinophils (%) (Auto) 0.8, Basophils (%) (Auto) 0.8, Sodium Level 142, Potassium Level 3.6, Chloride Level 108H, Carbon Dioxide Level 24, Anion Gap 10, Blood Urea Nitrogen 11, Creatinine 1.1, Estimat Glomerular Filtration Rate , Glucose Level 121H, Calcium Level 9.6 Height (Feet): 5 Height (Inches): 5.00 Weight (Pounds): 181 General Appearance: no apparent distress Cardiovascular: normal rate Abdomen: soft, other - PEG Objective no change Randolph Fernandes MD Nov 01, 2017 10:24
--- NOTE | 2017-11-01 10:38 | Diagnostic Imaging Report ---
ndication: Chest pain Technique: IV administration nonionic contrast. Spiral acquisitions obtained from the lung bases to the lung apices. Multiplanar and 3-D reconstructions were generated. Total dose length product 902.07 mGycm. CTDIvol(s) 28.38 mGy. Dose reduction achieved using automated exposure control Comparison: none Findings: There is good quality opacification of the pulmonary arteries. No intraluminal filling defects or other findings to suggest acute pulmonary embolus demonstrated. The ascending thoracic aorta is ectatic, measuring up to 3.6 cm diameter, but there is no evidence of thoracic aortic aneurysm or dissection. Normal proximal great neck vessels, with normal branching anatomy, no significant stenosis. No pulmonary artery dilatation or isolated right ventricular dilatation. The heart is overall mildly enlarged. The lungs demonstrate bilateral apical bullous changes and subpleural blebs, generalized hyperinflation. Scattered areas of linear opacity likely reflect scarring. There is questionably trace pleural fluid bilaterally. There are posterior dependent atelectatic changes. No infiltrates, masses, or nodules are demonstrated. There is a pericardial effusion, mostly focal over the posterior lateral wall, measuring up to 2 cm thick. No mediastinal or hilar mass or adenopathy. The thyroid is unremarkable. No axillary or chest wall mass or adenopathy. There is mild bilateral gynecomastia. There is a gastrostomy tube in good position. Extraluminal gas bubbles in the adjacent fat are noted Impression: No evidence of acute pulmonary embolus or other acute thoracic pathology. Mild cardiomegaly COPD changes Equivocal trace bilateral pleural effusions Pericardial effusion Mild bilateral gynecomastia Gastrostomy tube in good position. This was placed yesterday per the medical record, so adjacent extraluminal gas bubbles are an expected finding The CT scanner at [facility] is accredited by the [employer] and the scans are performed using protocols designed to limit radiation exposure to as low as reasonably achievable to attain images of sufficient resolution adequate for diagnostic evaluation.
[2017-11-01 12:00] VITALS: BP 149/86
--- NOTE | 2017-11-01 12:21 | GI Progress Note ---
Assessment/Plan Problems: (1) Malnutrition ICD Codes: E46 - Unspecified protein-calorie malnutrition SNOMED: 91172134 (2) Dysphagia ICD Codes: R13.10 - Dysphagia, unspecified SNOMED: 46901633, 468663641 Qualifiers: Qualified Codes: R13.10 - Dysphagia, unspecified (3) Dehydration ICD Codes: E86.0 - Dehydration SNOMED: 63116238, [id number] Status: stable Status Narrative Discussed with Dr. Coronel. Assessment/Plan s/p PEG, tolerating feeds RECOMMENDATIONS: okay for DC per GI standpoint GT site care daily/prn GTFs to goal fu labs The patient was seen and examined at bedside and all new and available data was reviewed in the patients chart. I agree with the above findings, impression and plan. (Patient seen earlier today. Signature stamp does not reflect patient encounter time.). - Juan Coronel MD Subjective Subjective limited Objective Last 24 Hour Vital Signs Date Time Temp Pulse Resp B/P (MAP) Pulse Ox O2 Delivery O2 Flow Rate FiO2 11/01/17 11:14 149/86 11/01/17 09:00 Nasal Cannula 2.0 11/01/17 08:00 97.7 103 26 146/83 (104) 95 97.7 11/01/17 05:52 155/81 (105) 11/01/17 04:26 97 170/100 11/01/17 04:10 98.4 21 170/100 (123) 97 98.4 11/01/17 00:00 99.2 97 20 145/83 (103) 96 99.2 10/31/17 21:09 Nasal Cannula 2.0 10/31/17 20:26 71 149/100 10/31/17 20:15 97.8 103 20 127/79 (95) 95 97.8 10/31/17 19:52 71 20 Room Air 21 10/31/17 16:00 96.8 92 22 149/100 (116) 99 96.8 10/31/17 12:45 97.4 75 17 168/90 97 Nasal Cannula 3 97.4 10/31/17 12:40 83 20 178/90 98 Nasal Cannula 3 10/31/17 12:25 70 20 155/89 100 Nasal Cannula 3 10/31/17 12:21 206.6 65 16 100 Intake and Output 10/31/17 11/01/17 19:00 07:00 Intake Total 735 ml 800 ml Output Total 850 ml 250 ml Balance -115 ml 550 ml Intake Free Water 100 ml 300 ml IV Total 555 ml Tube Feeding 80 ml 500 ml Output Urine Total 850 ml 250 ml Laboratory Tests Test 11/01/17 07:15 White Blood Count 8.1 K/UL (4.8-10.8) # Red Blood Count 5.75 M/UL (4.70-6.10) Hemoglobin 14.9 G/DL (14.2-18.0) Hematocrit 45.1 % (42.0-52.0) Mean Corpuscular Volume 78 FL (80-99) L Mean Corpuscular Hemoglobin 25.9 PG (27.0-31.0) L Mean Corpuscular Hemoglobin Concent 33.1 G/DL (32.0-36.0) Red Cell Distribution Width 14.2 % (11.6-14.8) Platelet Count 263 K/UL (150-450) Mean Platelet Volume 7.4 FL (6.5-10.1) Neutrophils (%) (Auto) 69.1 % (45.0-75.0) Lymphocytes (%) (Auto) 18.4 % (20.0-45.0) L Monocytes (%) (Auto) 10.9 % (1.0-10.0) H Eosinophils (%) (Auto) 0.8 % (0.0-3.0) Basophils (%) (Auto) 0.8 % (0.0-2.0) Sodium Level 142 MMOL/L (136-145) Potassium Level 3.6 MMOL/L (3.5-5.1) Chloride Level 108 MMOL/L (98-107) H Carbon Dioxide Level 24 MMOL/L (21-32) Anion Gap 10 mmol/L (5-15) Blood Urea Nitrogen 11 mg/dL (7-18) Creatinine 1.1 MG/DL (0.55-1.30) Estimat Glomerular Filtration Rate mL/min (>60) Glucose Level 121 MG/DL (74-106) H Calcium Level 9.6 MG/DL (8.5-10.1) Height (Feet): 5 Height (Inches): 5.00 Weight (Pounds): 181 General Appearance: WD/WN, no apparent distress, alert Cardiovascular: normal rate Respiratory/Chest: no respiratory distress Abdominal Exam: normal bowel sounds, non tender, soft, GT site - c/d/i Extremities: non-tender Kishan Hopkins NP Nov 01, 2017 12:21
--- NOTE | 2017-11-01 12:44 | Infectious Diseases Prog Note ---
Assessment/Plan Assessment/Plan A; E.coli UTI treted Dysphagia Dementia BPH s/p CVA P; discontinue Rocephin Agree with discharge to SNF without antibiotic Subjective ROS Limited/Unobtainable: Yes Allergies: Coded Allergies: TERAZOSIN (Verified Allergy, Unknown, 10/27/17) Objective Vital Signs Last 24 Hour Vital Signs Date Time Temp Pulse Resp B/P (MAP) Pulse Ox O2 Delivery O2 Flow Rate FiO2 11/01/17 12:00 97.7 91 20 149/86 (107) 98 97.7 11/01/17 11:14 149/86 11/01/17 09:00 Nasal Cannula 2.0 11/01/17 08:00 97.7 103 26 146/83 (104) 95 97.7 11/01/17 05:52 155/81 (105) 11/01/17 04:26 97 170/100 11/01/17 04:10 98.4 21 170/100 (123) 97 98.4 11/01/17 00:00 99.2 97 20 145/83 (103) 96 99.2 10/31/17 21:09 Nasal Cannula 2.0 10/31/17 20:26 71 149/100 10/31/17 20:15 97.8 103 20 127/79 (95) 95 97.8 10/31/17 19:52 71 20 Room Air 21 10/31/17 16:00 96.8 92 22 149/100 (116) 99 96.8 10/31/17 12:45 97.4 75 17 168/90 97 Nasal Cannula 3 97.4 Height (Feet): 5 Height (Inches): 5.00 Weight (Pounds): 181 General Appearance: no acute distress HEENT: mucous membranes moist Respiratory/Chest: lungs clear Cardiovascular: normal rate Abdomen: other - GT feeding Extremities: no edema Neurologic/Psychiatric: aphasia, other - awake Laboratory Tests Test 11/01/17 07:15 White Blood Count 8.1 K/UL (4.8-10.8) # Red Blood Count 5.75 M/UL (4.70-6.10) Hemoglobin 14.9 G/DL (14.2-18.0) Hematocrit 45.1 % (42.0-52.0) Mean Corpuscular Volume 78 FL (80-99) L Mean Corpuscular Hemoglobin 25.9 PG (27.0-31.0) L Mean Corpuscular Hemoglobin Concent 33.1 G/DL (32.0-36.0) Red Cell Distribution Width 14.2 % (11.6-14.8) Platelet Count 263 K/UL (150-450) Mean Platelet Volume 7.4 FL (6.5-10.1) Neutrophils (%) (Auto) 69.1 % (45.0-75.0) Lymphocytes (%) (Auto) 18.4 % (20.0-45.0) L Monocytes (%) (Auto) 10.9 % (1.0-10.0) H Eosinophils (%) (Auto) 0.8 % (0.0-3.0) Basophils (%) (Auto) 0.8 % (0.0-2.0) Sodium Level 142 MMOL/L (136-145) Potassium Level 3.6 MMOL/L (3.5-5.1) Chloride Level 108 MMOL/L (98-107) H Carbon Dioxide Level 24 MMOL/L (21-32) Anion Gap 10 mmol/L (5-15) Blood Urea Nitrogen 11 mg/dL (7-18) Creatinine 1.1 MG/DL (0.55-1.30) Estimat Glomerular Filtration Rate mL/min (>60) Glucose Level 121 MG/DL (74-106) H Calcium Level 9.6 MG/DL (8.5-10.1) Current Medications Medications (Trade) Dose Ordered Sig/Ruthie Route PRN Reason Start Time Stop Time Status Last Admin Dose Admin Acetaminophen (Tylenol) 650 mg Q4H PRN ORAL Mild Pain/Temp > 100.5 10/27/17 19:00 11/26/17 18:59 Albuterol/ Ipratropium (Albuterol/ Ipratropium) 3 ml Q4H PRN HHN Shortness of Breath 10/30/17 12:30 11/04/17 12:29 Amlodipine Besylate (Norvasc) 5 mg BID NG 10/29/17 18:00 11/27/17 08:59 11/01/17 04:26 Aspirin (ASA) 81 mg DAILY ORAL 10/28/17 09:00 11/27/17 08:59 11/01/17 10:09 Bisacodyl (Dulcolax) 10 mg DAILYPRN PRN RECTAL Constipation 10/29/17 10:15 11/26/17 19:14 Ceftriaxone Sodium 1 gm/ Dextrose 55 ml @ 110 mls/hr DAILY IVPB 10/28/17 09:00 11/04/17 08:59 11/01/17 10:20 Docusate Sodium (Colace) 250 mg DAILY ORAL 10/28/17 09:00 11/27/17 08:59 11/01/17 10:09 Escitalopram Oxalate (Lexapro) 10 mg DAILY GT 10/31/17 09:00 11/30/17 08:59 11/01/17 10:09 Heparin Sodium (Porcine) (Heparin 5000 units/ml) 5,000 units EVERY 12 HOURS SUBQ 10/30/17 21:00 11/29/17 20:59 11/01/17 10:11 Iopamidol (Isovue-370 150ml) 150 ml NOW PRN INJ Radiology Procedure 10/31/17 18:15 11/02/17 18:06 Lansoprazole (Prevacid) 30 mg DAILY GT 11/02/17 09:00 12/02/17 08:59 Lisinopril (Zestril) 10 mg DAILY GT 11/02/17 09:00 12/02/17 08:59 Magnesium Hydroxide (Mom) 30 ml HSPRN PRN NG Constipation 10/29/17 10:15 11/26/17 19:14 Tamsulosin HCl (Flomax) 0.4 mg BEDTIME ORAL 10/27/17 21:00 11/26/17 20:59 10/31/17 20:26 Anam Cruz MD Nov 01, 2017 12:44
--- NOTE | 2017-11-01 12:52 | Pulmonology Progress Note ---
Assessment/Plan Problems: (1) PEG (percutaneous endoscopic gastrostomy) status (2) Elevated d-dimer (3) Hypoxemia (4) Dysphagia (5) UTI (urinary tract infection) (6) Sepsis Assessment/Plan ASSESSMENT: The patient is an 87-year-old, nonverbal, fdc resident, history of dementia/traumatic brain injury, hypertension, hyperlipidemia, BPH, and dysphagia, presenting with worsening dysphagia in the setting of UTI. He is now S/P PEG. He has e/o hypoxemia with a mild respiratory alkalosis with elevated D-dimer but duplex and CT-A are both negative for VTE PROBLEM LIST: 1. Acute hypoxemia --> mild respiratory alkalosis with an elevated D-Dimer but negative duplex and CT-A 2. Dysphagia S/P PEG 10/31 3. UTI S/P treatment 4. Dementia/TBI. 5. Nonverbal at baseline. 6. Hypertension, hyperlipidemia, BPH. 7. MARIANGEL and hypernatremia, resolved. TREATMENT PLAN: 1. Optimize pulmonary hygiene/mobilize as tolerated 2. PRN HHN's, IS. 3. PRN O2 4. Monitor volumes and renal function 5. Observe off Abx per ID 6. NPO, GTF's, outpatient [employer] therapy 7. DVT Px: Hep SQ 8. FC, continue to discuss GOC. Subjective Allergies: Coded Allergies: TERAZOSIN (Verified Allergy, Unknown, 10/27/17) Subjective AFVSS, O2 needs stable, marcin TF's CT-A neg for PE No Cough, no respiratory distress Objective Last 24 Hour Vital Signs Date Time Temp Pulse Resp B/P (MAP) Pulse Ox O2 Delivery O2 Flow Rate FiO2 11/01/17 12:00 97.7 91 20 149/86 (107) 98 97.7 11/01/17 11:14 149/86 11/01/17 09:00 Nasal Cannula 2.0 11/01/17 08:00 97.7 103 26 146/83 (104) 95 97.7 11/01/17 05:52 155/81 (105) 11/01/17 04:26 97 170/100 11/01/17 04:10 98.4 21 170/100 (123) 97 98.4 11/01/17 00:00 99.2 97 20 145/83 (103) 96 99.2 10/31/17 21:09 Nasal Cannula 2.0 10/31/17 20:26 71 149/100 10/31/17 20:15 97.8 103 20 127/79 (95) 95 97.8 10/31/17 19:52 71 20 Room Air 21 10/31/17 16:00 96.8 92 22 149/100 (116) 99 96.8 Intake and Output 10/31/17 11/01/17 19:00 07:00 Intake Total 735 ml 800 ml Output Total 850 ml 250 ml Balance -115 ml 550 ml Intake Free Water 100 ml 300 ml IV Total 555 ml Tube Feeding 80 ml 500 ml Output Urine Total 850 ml 250 ml General Appearance: cachetic HEENT: normocephalic, atraumatic Respiratory/Chest: chest wall non-tender, lungs clear, normal breath sounds, no respiratory distress Cardiovascular: normal peripheral pulses, normal rate, regular rhythm Abdomen: normal bowel sounds, soft, non tender, no organomegaly, non distended , no mass, other - GT Extremities: no cyanosis, no clubbing, no edema Laboratory Tests 11/01/17 07:15: White Blood Count 8.1#, Red Blood Count 5.75, Hemoglobin 14.9, Hematocrit 45.1, Mean Corpuscular Volume 78L, Mean Corpuscular Hemoglobin 25.9L, Mean Corpuscular Hemoglobin Concent 33.1, Red Cell Distribution Width 14.2, Platelet Count 263, Mean Platelet Volume 7.4, Neutrophils (%) (Auto) 69.1, Lymphocytes (% ) (Auto) 18.4L, Monocytes (%) (Auto) 10.9H, Eosinophils (%) (Auto) 0.8, Basophils (%) (Auto) 0.8, Sodium Level 142, Potassium Level 3.6, Chloride Level 108H, Carbon Dioxide Level 24, Anion Gap 10, Blood Urea Nitrogen 11, Creatinine 1.1, Estimat Glomerular Filtration Rate , Glucose Level 121H, Calcium Level 9.6 Current Medications Medications (Trade) Dose Ordered Sig/Ruthie Route PRN Reason Start Time Stop Time Status Last Admin Dose Admin Acetaminophen (Tylenol) 650 mg Q4H PRN ORAL Mild Pain/Temp > 100.5 10/27/17 19:00 11/26/17 18:59 Albuterol/ Ipratropium (Albuterol/ Ipratropium) 3 ml Q4H PRN HHN Shortness of Breath 10/30/17 12:30 11/04/17 12:29 Amlodipine Besylate (Norvasc) 5 mg BID NG 10/29/17 18:00 11/27/17 08:59 11/01/17 04:26 Aspirin (ASA) 81 mg DAILY ORAL 10/28/17 09:00 11/27/17 08:59 11/01/17 10:09 Bisacodyl (Dulcolax) 10 mg DAILYPRN PRN RECTAL Constipation 10/29/17 10:15 11/26/17 19:14 Docusate Sodium (Colace) 250 mg DAILY ORAL 10/28/17 09:00 11/27/17 08:59 11/01/17 10:09 Escitalopram Oxalate (Lexapro) 10 mg DAILY GT 10/31/17 09:00 11/30/17 08:59 11/01/17 10:09 Heparin Sodium (Porcine) (Heparin 5000 units/ml) 5,000 units EVERY 12 HOURS SUBQ 10/30/17 21:00 11/29/17 20:59 11/01/17 10:11 Iopamidol (Isovue-370 150ml) 150 ml NOW PRN INJ Radiology Procedure 10/31/17 18:15 11/02/17 18:06 Lansoprazole (Prevacid) 30 mg DAILY GT 11/02/17 09:00 12/02/17 08:59 Lisinopril (Zestril) 10 mg DAILY GT 11/02/17 09:00 12/02/17 08:59 Magnesium Hydroxide (Mom) 30 ml HSPRN PRN NG Constipation 10/29/17 10:15 11/26/17 19:14 Tamsulosin HCl (Flomax) 0.4 mg BEDTIME ORAL 10/27/17 21:00 11/26/17 20:59 10/31/17 20:26 Fantasma Nielsen MD Nov 01, 2017 12:52
--- NOTE | 2017-11-01 13:32 | General Progress Note ---
Assessment/Plan Status: stable, progressing Assessment/Plan Mdd encephalopathy due [place] [facility] -lexapro 10mg qam -provided ro/st Subjective Date patient seen: Nov 01, 2017 Neurologic/Psychiatric: Reports: anxiety, depressed, emotional problems Allergies: Coded Allergies: TERAZOSIN (Verified Allergy, Unknown, 10/27/17) Objective Last 24 Hour Vital Signs Date Time Temp Pulse Resp B/P (MAP) Pulse Ox O2 Delivery O2 Flow Rate FiO2 11/01/17 12:00 97.7 91 20 149/86 (107) 98 97.7 11/01/17 11:14 149/86 11/01/17 09:00 Nasal Cannula 2.0 11/01/17 08:00 97.7 103 26 146/83 (104) 95 97.7 11/01/17 05:52 155/81 (105) 11/01/17 04:26 97 170/100 11/01/17 04:10 98.4 21 170/100 (123) 97 98.4 11/01/17 00:00 99.2 97 20 145/83 (103) 96 99.2 10/31/17 21:09 Nasal Cannula 2.0 10/31/17 20:26 71 149/100 10/31/17 20:15 97.8 103 20 127/79 (95) 95 97.8 10/31/17 19:52 71 20 Room Air 21 10/31/17 16:00 96.8 92 22 149/100 (116) 99 96.8 Intake and Output 10/31/17 11/01/17 19:00 07:00 Intake Total 735 ml 800 ml Output Total 850 ml 250 ml Balance -115 ml 550 ml Intake Free Water 100 ml 300 ml IV Total 555 ml Tube Feeding 80 ml 500 ml Output Urine Total 850 ml 250 ml Laboratory Tests 11/01/17 07:15: White Blood Count 8.1#, Red Blood Count 5.75, Hemoglobin 14.9, Hematocrit 45.1, Mean Corpuscular Volume 78L, Mean Corpuscular Hemoglobin 25.9L, Mean Corpuscular Hemoglobin Concent 33.1, Red Cell Distribution Width 14.2, Platelet Count 263, Mean Platelet Volume 7.4, Neutrophils (%) (Auto) 69.1, Lymphocytes (% ) (Auto) 18.4L, Monocytes (%) (Auto) 10.9H, Eosinophils (%) (Auto) 0.8, Basophils (%) (Auto) 0.8, Sodium Level 142, Potassium Level 3.6, Chloride Level 108H, Carbon Dioxide Level 24, Anion Gap 10, Blood Urea Nitrogen 11, Creatinine 1.1, Estimat Glomerular Filtration Rate , Glucose Level 121H, Calcium Level 9.6 Height (Feet): 5 Height (Inches): 5.00 Weight (Pounds): 181 General Appearance: no apparent distress, alert, confused Lauren Santoyo MD Nov 01, 2017 13:32
[2017-11-02] MEDS ORDERED: Lisinopril 10mg tab GT SCH (09:00)
--- NOTE | 2017-11-02 12:55 | Discharge Summary ---
Discharge Summary Discharge Summary _ DATE OF ADMISSION: 10/27/2017 DATE OF DISCHARGE: 11/01/2017 CONSULTANTS: Dr. Juan Fernandes BRIEF HOSPITAL COURSE: Patient is an 87-year-old male, from [facility], was taken to ED for evaluation of dysphagia and possible aspiration. Patient is nonverbal at baseline. Unable to provide any additional history. Patient was not eating or drinking. He has history of repeated aspiration. He has medical history significant for hypertension. On evaluation at ED, blood work showed elevated creatinine 1.4. Sodium was 147. There was no leukocytosis. Troponin was negative. Urinalysis with 15-20 WBC, 2-4 RBC, 2+ leukocyte esterase, positive nitrite. Lactic acid was 2.1 He had an EKG done that showed normal sinus rhythm. Chest x-ray with elevated left hemidiaphragm. He was admitted for evaluation of dysphagia and UTI. He was given IV hydration. He was placed on npo. Swallow evaluation was done. He was started empirically on ceftriaxone. NG tube was inserted. He had an episode of hypoxemia. Patient had mild respiratory alkalosis. He was given breathing treatment. He was placed on heparin subcutaneous for DVT prophylaxis. D-dimer was elevated to 3.91. Venous duplex was negative for acute DVT. Chest CTA was without evidence of acute pulmonary embolus or other acute thoracic pathology. Patient had depressed mood, low energy and was not engaged. 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 He was given Lexapro 10 mg every morning. Urine culture showed growth of Escherichia coli, sensitive to ceftriaxone. Patient failed swallowing evaluation. On 10/31/2017, he underwent upper endoscopy with biopsy and PEG tube placement. He tolerated procedure well. He was eventually started on G-tube feeds. He was tolerating tube feeding. He was eventually cleared for discharge back to [facility]. No need to continue antibiotics. Advised strict aspiration precaution. Head of bed elevated at all times. 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. DISCHARGE MEDICATIONS: Refer to Discharge Medication List. I have been assigned to dictate discharge summary on this account, and I was not involved in the patient's management. Vy Mejia NP Nov 02, 2017 12:55
--- NOTE | 2017-11-06 15:14 | Diagnostic Imaging Report ---
APPROVED REPORT CPT Code: 42780 Present Symptoms Shortness of breath BILATERAL: Imaging reveals a patent deep venous system bilaterally. There is no evidence of thrombus within the femoral, popliteal or tibial segments. The greater saphenous veins are also within normal limits. Doppler indicates normal spontaneous flow within these segments.
== END 2017-11-01 15:15 | DRG 871 ==
LOC: EDBD 13:36 → EDBEDREQ 14:05 → EMR 14:40 → 4E 14:48 → EDBEDREQ 17:20 → 4E 18:02
PROC: 0DH63UZ Insertion of Feeding Device into Stomach, Percutaneous Approach (ICD-10-PCS; principal; 2017-10-31 11:57)
PROC: 0DB78ZX Excision of Stomach, Pylorus, Via Natural or Artificial Opening Endoscopic, Diagnostic (ICD-10-PCS; principal; 2017-10-31 11:57)
DX: A41.9 Sepsis, unspecified organism (principal); G93.49 Other encephalopathy; N39.0 Urinary tract infection, site not specified; E87.3 Alkalosis; N17.9 Acute kidney failure, unspecified; E87.0 Hyperosmolality and hypernatremia; E46 Unspecified protein-calorie malnutrition; R13.10 Dysphagia, unspecified; B96.20 Unspecified Escherichia coli [E. coli] as the cause of diseases classified elsewhere; R09.02 Hypoxemia; F03.90 Unspecified dementia, unspecified severity, without behavioral disturbance, psychotic disturbance, mood disturbance, and anxiety; I10 Essential (primary) hypertension; E78.5 Hyperlipidemia, unspecified; F32.9 Major depressive disorder, single episode, unspecified; N40.0 Benign prostatic hyperplasia without lower urinary tract symptoms; R62.7 Adult failure to thrive; E87.6 Hypokalemia; Z88.8 Allergy status to other drugs, medicaments and biological substances; Z87.820 Personal history of traumatic brain injury; K29.70 Gastritis, unspecified, without bleeding; E86.0 Dehydration
CPT/HCPCS: 36415; 36600; 71045; 71275; 74018; 80048; 80053; 80061; 81003; 82550; 82553; 82607; 82728; 82746; 82803; 82977; 83036; 83540; 83550; 83605; 83690; 83735; 83880; 84100; 84443; 84484; 84550; 85025; 85379; 85610; 85730; 86140; 87040; 87081; 87086; 87181; 93005; 93306; 93970; 94003; 94150; 94664; 96365; 96368; 99285

== ENCOUNTER 2017-12-01 11:35 | Inpatient (IN) | payer MEDICARE, MEDICAID ==
[~2017-12-01] VITALS: Ht 165.1 cm; Wt 78.0 kg
[2017-12-01] VITALS (9 sets, daily range): BP systolic 86–112; BP diastolic 43–80
[~2017-12-01 11:35] MED LIST: ACETAMINOPHEN325 M1 ORAL; ASPIRIN-LOW81 MG GT; ATORVASTATIN CA10 MG GT; COLACE100 MG GT; DONEPEZIL HCL10 MG GT; DULCOLAX10 MG RC; FLEET ENEMA133 M1 RC; MILK OF MA400 MG/51 GT; MOM30 ML ORAL; NORVASC5 MG GT; SENNA8.6 M2 PO; SENNOSIDES8.6 MG ORAL; TAMSULOSIN HCL0.4 MG GT; TYLENOL EXTRA500 MG ORAL; VITAMIN D400 INTLU ORAL
[2017-12-01] MEDS ORDERED: Cefepime HCl 1 GM in NS 55 ML IV STA (11:48)
[2017-12-01] MEDS ORDERED: Vancomycin 1 GM in NS 275 ML IV ONE (12:00)
[2017-12-01] MEDS ORDERED: Lidocaine 2% 100mg/5ml Carp ONE (12:06)
[2017-12-01 12:25] LABS: BASOPHILS % (AUTO) 0.5 % (0.0-2.0); EOSINOPHILS % (AUTO) 0.8 % (0.0-3.0); HEMATOCRIT 48.7 % (42.0-52.0); HEMOGLOBIN 15.1 G/DL (14.2-18.0); LYMPHOCYTES % (AUTO) 10.9 % (20.0-45.0); MEAN CORPUSCULAR VOLUME 85 FL (80-99); NEUTROPHILS % (AUTO) 81.8 % (45.0-75.0); PLATELET COUNT 241 K/UL (150-450); RED BLOOD COUNT 5.74 M/UL (4.70-6.10); RED CELL DISTRIBUTION WIDTH 15.9 % (11.6-14.8); WHITE BLOOD COUNT 15.3 K/UL (4.8-10.8)
[2017-12-01 12:34] LABS: INR 1.1 (0.9-1.1)
[2017-12-01] MEDS ORDERED: Lidocaine 2% 100mg/5ml Carp INJ ONE (12:45)
[2017-12-01 12:47] LABS: ALANINE AMINOTRANSFERASE 197 U/L (12-78); ALBUMIN 2.3 G/DL (3.4-5.0); ALBUMIN/GLOBULIN RATIO 0.4 (1.0-2.7); ALKALINE PHOSPHATASE 93 U/L (46-116); ANION GAP 19 mmol/L (5-15); ASPARTATE AMINO TRANSFERASE 181 U/L (15-37); BILIRUBIN,TOTAL 0.7 MG/DL (0.2-1.0); BLOOD UREA NITROGEN 99 mg/dL (7-18); CALCIUM 9.1 MG/DL (8.5-10.1); CARBON DIOXIDE 24 MMOL/L (21-32); CHLORIDE 146 MMOL/L (98-107); CKMB 5.3 NG/ML (0.0-3.6); CREATINE KINASE 6122 U/L (26-308); CREATININE 3.3 MG/DL (0.55-1.30); POTASSIUM 3.5 MMOL/L (3.5-5.1)
[2017-12-01 12:50] LABS: SODIUM 189 MMOL/L (136-145)
--- NOTE | 2017-12-01 13:14 | Emergency Room Report ---
History of Present Illness General Chief Complaint: Dyspnea/Respdistress Source: EMS Present Illness HPI Patient was sent in for alterations of sodium. Also the BLS that brought him in said that his blood pressure is low and his oximetry was low. Also he was unresponsive for them. Usually decreased responsiveness, but this was less than normal. Alleged resp distress. G tube. Dementia, with functional paraplegia. Allergies: Coded Allergies: TERAZOSIN (Verified Allergy, Unknown, 10/27/17) Patient History Limited by: medical condition Past Medical History: see triage record, old chart reviewed Past Surgical History: other - G tube Social History: Reports: alcohol use - in past Social History Narrative SNF Reviewed Nursing Documentation: PMH: Agreed; PSxH: Agreed Nursing Documentation-PMH Hx Cardiac Problems: Yes Hx Hypertension: Yes Hx Cancer: No Hx Gastrointestinal Problems: Yes Hx Neurological Problems: Yes Hx Dementia: Yes Review of Systems All Other Systems: limited Physical Exam Vital Signs Date Time Temp Pulse Resp B/P (MAP) Pulse Ox O2 Delivery O2 Flow Rate FiO2 12/01/17 11:33 98.1 122 30 85/55 90 Nasal Cannula 4.0 12/01/17 12:11 100 Sp02 EP Interpretation: reviewed, abnormal - as interpreted by me General Appearance: severe distress, Chronically Ill, Stupor Head: normocephalic Eyes: bilateral eye other - eyes closed ENT: dry mucus membranes Neck: other - flaccid Respiratory: respiratory distress Cardiovascular #1: tachycardia Cardiovascular #2: 2+ radial (L) Gastrointestinal: other - G tube, decreased bowel sounds Genitourinary: normal inspection Musculoskeletal: other - contractures and pressure protection Neurologic: other - unresponsive, no gag Psychiatric: other - stupor Skin: other - hot Procedures Critical Care Time Critical Care Time Total Critical Care Time: 90 min bedside evaluation and treatment excludes procedures (EKG, intubation, CVP). Reason for critical care: severe sepsis, hypernatremia, resp alkalosis, NSTEMI Possible complications: hypotension, hypertension, MT, shock, arrhythmias, metabolic acidosis, end organ damage, respiratory failure. Interventions: intubation, CVP, fluid resuscitation, antibiotics, ventilator adjustments Course: Patient presented in resp distress, hypoxia and hypotension. Intubated. Fluid resuscitation. Antibiotics begun. CVP started. BP improved with fluids. NSTEMI treated with aspirin. Resp alkalosis with adjustment of vent. Improved with treatment but critical. Initially suction felt to be from lungs, was from stomach and source of sepsis is urine. Consultations: nursing staff, EMS, RT, admitting MD Performed by: Dr. aBugh Tolerated well condition = critical Central Line Central Line : Consent: Emergent Central Line Lumen: triple Maximal Sterile Barrier Tech: yes cap, yes mask, yes sterile gown, yes sterile gloves, yes large sterile sheet, yes hand hygiene, yes chlorhexidine prep Central Line Postion: femoral (R) Anesthesia: Lidocaine cc's of anesthesia: 4 Complications: none Central Line Post Position: sutured, good blood return Attempts: Other - 2 Patient Tolerated: Well Complications: None Progress Ultrasound guidance. EBL = 8 ml Intubation Intubation : Consent: Emergent Intubation Method: orotracheal Tube Size (cm): 7.5 Medications: Other - none Breath Sounds after Intubation: equal Intubation Complications: no complications Post Intubation Xray: Yes Attempts: One Patient Tolerated: Well Complications: None Medical Decision Making Diagnostic Impression: Primary Impression: Severe sepsis Additional Impressions: NSTEMI (non-ST elevated myocardial infarction) Respiratory failure Qualified Codes: J96.00 - Acute respiratory failure, unspecified whether with hypoxia or hypercapnia Renal failure (ARF), acute on chronic Qualified Codes: N17.9 - Acute kidney failure, unspecified; N18.3 - Chronic kidney disease, stage 3 (moderate) Pancreatitis Qualified Codes: K85.90 - Acute pancreatitis without necrosis or infection, unspecified UTI (urinary tract infection) Qualified Codes: N39.0 - Urinary tract infection, site not specified ER Course Patient in distress, with obvious sepsis and decreased mentation. Immediate intubation as resp rate 50 and hypoxia. Possible source pneumonia vs urine. Evaluation with EKG, CXR and labs. Immediate orders for fluid resuscitation and antibiotics. EKG was sinus tachycardia and nonspecific ST-T wave changes suggesting subendocardial injury. Chest x-ray postintubation no evidence of infiltrate ET tube is replacement. Improved mentation with initial fluid resuscitation. Also improved BP. CXR ET good, no infiltrates. WBC high. Sodium extremely high. Renal failure. UA with pyuria. Elevated lipase. See critical care note. RT now states he was probably in the stomach when he initially suctioned the patient as now with yellow to clear. Most likely, resp distress due to sepsis from urinary source. Improved with aggressive treatment. Still critical. Admit ICU, Dr. Matias. Prognosis poor. Laboratory Tests Test 12/01/17 11:50 12/01/17 13:30 12/01/17 14:05 White Blood Count 15.3 K/UL (4.8-10.8) H Red Blood Count 5.74 M/UL (4.70-6.10) Hemoglobin 15.1 G/DL (14.2-18.0) Hematocrit 48.7 % (42.0-52.0) Mean Corpuscular Volume 85 FL (80-99) Mean Corpuscular Hemoglobin 26.3 PG (27.0-31.0) L Mean Corpuscular Hemoglobin Concent 31.0 G/DL (32.0-36.0) L Red Cell Distribution Width 15.9 % (11.6-14.8) H Platelet Count 241 K/UL (150-450) Mean Platelet Volume 7.9 FL (6.5-10.1) Neutrophils (%) (Auto) 81.8 % (45.0-75.0) H Lymphocytes (%) (Auto) 10.9 % (20.0-45.0) L Monocytes (%) (Auto) 6.0 % (1.0-10.0) Eosinophils (%) (Auto) 0.8 % (0.0-3.0) Basophils (%) (Auto) 0.5 % (0.0-2.0) Prothrombin Time 12.0 SEC (9.30-11.50) H Prothrombin Time INR 1.1 (0.9-1.1) PTT 30 SEC (23-33) Sodium Level 189 MMOL/L (136-145) *H Potassium Level 3.5 MMOL/L (3.5-5.1) Chloride Level 146 MMOL/L (98-107) H Carbon Dioxide Level 24 MMOL/L (21-32) Anion Gap 19 mmol/L (5-15) H Blood Urea Nitrogen 99 mg/dL (7-18) H Creatinine 3.3 MG/DL (0.55-1.30) H Estimate Glomerular Filtration Rate mL/min (>60) Glucose Level 363 MG/DL (74-106) H Lactic Acid Level 6.70 mmol/L (0.4-2.0) H 5.50 mmol/L (0.66-2.22) H Calcium Level 9.1 MG/DL (8.5-10.1) Magnesium Level 3.2 MG/DL (1.8-2.4) H Total Bilirubin 0.7 MG/DL (0.2-1.0) Aspartate Amino Transferase (AST) 181 U/L (15-37) H Alanine Aminotransferase (ALT) 197 U/L (12-78) H Alkaline Phosphatase 93 U/L (46-116) Total Creatine Kinase 6122 U/L (26-308) H Creatine Kinase MB 5.3 NG/ML (0.0-3.6) H Creatine Kinase MB Relative Index 0.0 Troponin I 0.364 ng/mL (0.000-0.056) C-Reactive Protein, Quantitative 9.6 mg/dL (0.00-0.90) H Pro-B-Type Natriuretic Peptide 799 pg/mL (0-125) H Total Protein 8.0 G/DL (6.4-8.2) Albumin 2.3 G/DL (3.4-5.0) L Globulin 5.7 g/dL Albumin/Globulin Ratio 0.4 (1.0-2.7) L Lipase 712 U/L (73-393) H Arterial Blood pH 7.439 (7.350-7.450) Arterial Blood Partial Pressure CO2 25.0 mmHg (35.0-45.0) L Arterial Blood Partial Pressure O2 85.5 mmHg (75.0-100.0) Arterial Blood HCO3 16.6 mmol/L (22.0-26.0) *L Arterial Blood Oxygen Saturation 94.9 % (95-100) L Arterial Blood Base Excess -6.0 (-2-2) L Ebenezer Test Positive Urine Color Brown Urine Appearance Slightly cloudy Urine pH 5 (4.5-8.0) Urine Specific [place] 1.015 (1.005-1.035) Urine Protein 3+ (NEGATIVE) H Urine Glucose (UA) Negative (NEGATIVE) Urine Ketones 1+ (NEGATIVE) H Urine Blood 5+ (NEGATIVE) H Urine Nitrite Positive (NEGATIVE) H Urine Bilirubin Negative (NEGATIVE) Urine Urobilinogen 4 MG/DL (0.0-1.0) H Urine Leukocyte Esterase 3+ (NEGATIVE) H Urine RBC 5-10 /HPF (0 - 0) H Urine WBC 60-80 /HPF (0 - 0) H Urine Squamous Epithelial Cells None /LPF (NONE/OCC) Urine Bacteria Many /HPF (NONE) H EKG Diagnostic Results Rate: tachycardiac ST Segments: other - subendocardial changes Rhythm Strip Diag. Results Rhythm: no PVC's, no ectopy, other - ST Chest X-Ray Diagnostic Results Chest X-Ray Diagnostic Results : Chest X-Ray Ordered: Yes # of Views/Limited/Complete: 1 View Indication: Other Interpretation: no effusion, no pneumothorax, other - ET good placement Last Vital Signs Date Time Temp Pulse Resp B/P (MAP) Pulse Ox O2 Delivery O2 Flow Rate FiO2 12/01/17 22:49 82 34 50 12/01/17 20:00 Mechanical Ventilator 12/01/17 16:03 98.1 112/61 100 15.0 Status: improved Disposition: ADMITTED INPATIENT Condition: Critical Referrals: Trish Matias MD (PCP) Booker Baugh MD Dec 01, 2017 13:14
[2017-12-01] MEDS ORDERED: SENNA8.6 M2 GT (13:28)
[2017-12-01 14:14] LABS: APPEARANCE,URINE SLIGHTLY CLOUDY; BILIRUBIN, URINE NEGATIVE (NEGATIVE); COLOR,URINE BROWN; GLUCOSE, URINE (UA) NEGATIVE (NEGATIVE); KETONES,URINE 1+ (NEGATIVE); LEUKOCYTE ESTERASE ,URINE 3+ (NEGATIVE); NITRITE,URINE POSITIVE (NEGATIVE); PH,URINE 5 (4.5-8.0); PROTEIN,URINE 3+ (NEGATIVE); UROBILINOGEN,URINE 4 MG/DL (0.0-1.0)
--- NOTE | 2017-12-01 14:54 | Consultation ---
Consult Note Consult Note asked to eval for renal failure- Patient was sent in for alterations of sodium. Also the BLS any illicit brought him in said that his blood pressure is low and his oximetry was low. Also he was unresponsive for them. Allergies: TERAZOSIN (Verified Allergy, Unknown, 10/27/17) Hx Cardiac Problems: Yes Hx Hypertension: Yes Hx Gastrointestinal Problems: Yes Hx Neurological Problems: Yes Hx Dementia: Yes seen in ICU examined Data reviewed Assessment/Plan Acute respiratory failure- Acute Renal failure- Severe Dehydration PEG Sepsis / UTI / Pneumonia Hypotension- Septic Shock High Lipase Rhabdo- High CPK Elevated Troponin Dementia Vent- Respiratory support Fluids Gastric support Antibiotics Monitor renal parameters Poor prognosis Per orders Randolph Fernandes MD Dec 01, 2017 14:54
[2017-12-01] MEDS ORDERED: D5 1/4NS 1000ml 1,000 ML IV SCH ×2 (15:00)
--- NOTE | 2017-12-01 15:01 | Pulmonolgy Critical Care Note ---
Critical Care - Asmt/Plan Assessment/Plan: Pulmonary Critical Care Note Patient is status post recent G-Tube placement, [facility] in [facility], noted to have elevated sodium level. Noted to have low blood pressure, hypoxia and altered mental status. Allergies: Coded Allergies: TERAZOSIN (Verified Allergy, Unknown, 10/27/17) Patient History Past Medical History: see triage record Social History Narrative SNF Reviewed Nursing Documentation: PMH: Agreed; PSxH: Agreed Nursing Documentation-PMH Hx Cardiac Problems: Yes Hx Hypertension: Yes Hx Cancer: No Hx Gastrointestinal Problems: Yes Hx Neurological Problems: Yes Hx Dementia: Yes Physical Exam Vital Signs Date Time Temp Pulse Resp B/P (MAP) Pulse Ox O2 Delivery O2 Flow Rate FiO2 12/01/17 11:33 98.1 122 30 85/55 90 Nasal Cannula 4.0 12/01/17 12:11 100 Procedures Central Line Central Line : Consent: Emergent Central Line Lumen: triple Maximal Sterile Barrier Tech: yes cap, yes mask, yes sterile gown, yes sterile gloves, yes large sterile sheet, yes hand hygiene, yes chlorhexidine prep Central Line Postion: femoral (R) Anesthesia: Lidocaine Complications: art stick once Attempts: Other - 2 Patient Tolerated: Well Complications: None Progress Ultrasound guidance. EBL = 8 ml Intubation Intubation : Consent: Emergent Intubation Method: orotracheal Tube Size (cm): 7.5 Medications: Other - none Breath Sounds after Intubation: equal Intubation Complications: no complications Post Intubation Xray: Yes Attempts: One Patient Tolerated: Well Complications: None Medical Decision Making Diagnostic Impression: Severe Hypernatremia/dehydration Severe sepsis, source unclear, possible Early Pneumonia vs GI source Recent G tube insertion H/o Dementia H/o Hypertension, currently hypotensive NSTEMI (non-ST elevated myocardial infarction) Hypoxic Respiratory Failure s/p Intubation Renal failure (ARF), acute on chronic Pancreatitis Elevated Glucose Plan: Admit to ICU Continue current AC settings:AC 16 500 P5 ABG Fentanyl gtt PRN IV hydration Insulin gtt Broad Spectrum Antibiotics SQ Heparin Protonix Monitor labs EKG was sinus tachycardia and nonspecific ST-T wave changes suggesting subendocardial injury. Chest x-ray postintubation no evidence of infiltrate ET tube is replacement. Based on the clinical exam and the purulent sputum this patient has pneumonia. Rhythm Strip Diag. Results Rhythm: no PVC's, no ectopy, other - ST Chest X-Ray Diagnostic Results Chest X-Ray Diagnostic Results : Chest X-Ray Ordered: Yes # of Views/Limited/Complete: 1 View Indication: Other Interpretation: no effusion, no pneumothorax, other - ET good placement CT Chest: No evidence of acute pulmonary embolus or other acute thoracic pathology. Mild cardiomegaly COPD changes Equivocal trace bilateral pleural effusions Pericardial effusion Mild bilateral gynecomastia Gastrostomy tube in good position. This was placed yesterday per the medical record, so adjacent extraluminal gas bubbles are an expected finding Case seen for 75 mins, 43 mins care co-ordination DW RN Booker Baumann MD Critical Care - Objective Last 24 Hour Vital Signs Date Time Temp Pulse Resp B/P (MAP) Pulse Ox O2 Delivery O2 Flow Rate FiO2 12/01/17 13:00 128 30 50 12/01/17 12:26 117 57 Non-Rebreather 15.0 12/01/17 12:15 123 32 Mechanical Ventilator 15.0 50 12/01/17 12:15 123 32 50 12/01/17 12:11 50 12/01/17 12:00 117 57 112/61 100 Non-Rebreather 15.0 12/01/17 11:33 98.1 122 30 85/55 90 Nasal Cannula 4.0 Micro: Microbiology Date/Time Source Procedure Growth Status 12/01/17 13:20 Rectum Received Critical Care - Subjective ROS Limited/Unobtainable: Yes Condition: critical EKG Rhythm: Sinus Rhythm FI02: 50 Vent Support Breath Rate: 16 Vent Support Mode: AC Vent Tidal Volume: 550 Sputum Amount: Small PEEP: 5.0 PIP: 30 ET-Tube: 7.5 ET Position: 22 Booker Baumann MD Dec 01, 2017 15:01
--- NOTE | 2017-12-01 15:28 | Diagnostic Imaging Report ---
Indication: Post intubation Technique: One view of the chest Comparison: 10/30/2017 Findings: Endotracheal tube is in place, tip in good position approximately 6 cm above the jorge. The lungs pleural spaces are clear. Heart size is normal. The aorta is tortuous ectatic and calcified. Impression: Satisfactory endotracheal intubation Other findings as noted
--- NOTE | 2017-12-01 15:59 | GI Initial Consult Note ---
History of Present Illness General Date patient seen: Dec 01, 2017 Time patient seen: 15:48 Reason for Hospitalization: Dyspnea/Respdistress Referring physician: JOSE LUIS GAYLE Reason for Consultation: Transaminitis/GT management Present Illness HPI Patient was sent in for alterations of sodium. Also the BLS any illicit brought him in said that his blood pressure is low and his oximetry was low. Also he was unresponsive for them. GI consulted for GT management, transaminitis. ROS limited, patient unresponsive intubated in ICU. S/P PEG last month here at [facility]. GT site C/D/I with no leakage or erythema around the site. Patient has abdominal distention, tympanic in the lower quadrants. Labs reviewed; leukocytosis, no anemia, transaminitis. Home Meds Reported Medications Sennosides (SENNA) 8.6 Mg Tablet, 8.6 MG GT DAILY, TAB 12/01/17 Acetaminophen* (ACETAMINOPHEN 325MG TABLET*) 325 Mg Tablet, 650 MG ORAL Q4H PRN for FEVER (TEMP >101F) 10/27/17 Acetaminophen* (ACETAMINOPHEN 325MG TABLET*) 325 Mg Tablet, 650 MG ORAL Q4H PRN for For Pain 10/27/17 Sennosides* (SENNOSIDES*) 8.6 Mg Tablet, 17.2 MG ORAL QPM for HOLD FOR LBM; for constipation 10/27/17 Magnesium Hydroxide* (MILK OF MAGNESIA*) 400 Mg/5 Ml Oral.susp, 30 ML GT QHS for PRN if stool softeners ineffec 10/27/17 Tamsulosin Hcl (TAMSULOSIN HCL*) 0.4 Mg Cap.er.24h, 0.4 MG GT BEDTIME, CAP 10/27/17 Na Phos,M-B/Na Phos,Di-Ba (Fleet Enema) 133 Ml Enema, 133 ML RC, EA 10/27/17 Bisacodyl (DULCOLAX) 10 Mg Supp.rect, 10 MG RC, SUPP 10/27/17 Donepezil Hcl* (DONEPEZIL HCL*) 10 Mg Tablet, 10 MG GT DAILY, TAB 10/27/17 Docusate Sodium* (COLACE*) 100 Mg Capsule, 100 MG GT DAILY, CAP 10/27/17 Atorvastatin Calcium* (LIPITOR*) 10 Mg Tablet, 10 MG GT BEDTIME, TAB 10/27/17 Aspirin (Aspirin EC) 81 Mg Tablet.dr, 81 MG GT DAILY, TAB 10/27/17 Amlodipine Besylate (Norvasc) 5 Mg Tablet, 5 MG GT DAILY, TAB 10/27/17 Med list reviewed/reconciled: Yes Allergies: Coded Allergies: TERAZOSIN (Verified Allergy, Unknown, 10/27/17) Patient History Limited by: medical condition History Provided By: Medical Record Social History: Denies: smoking, alcohol use, drug use, other Review of Systems All Other Systems: limited Physical Exam Vital Signs Date Time Temp Pulse Resp B/P (MAP) Pulse Ox O2 Delivery O2 Flow Rate FiO2 12/01/17 11:33 98.1 122 30 85/55 90 Nasal Cannula 4.0 12/01/17 12:11 50 Sp02 EP Interpretation: reviewed Labs Laboratory Tests Test 12/01/17 11:50 12/01/17 13:30 12/01/17 14:05 White Blood Count 15.3 K/UL (4.8-10.8) H Red Blood Count 5.74 M/UL (4.70-6.10) Hemoglobin 15.1 G/DL (14.2-18.0) Hematocrit 48.7 % (42.0-52.0) Mean Corpuscular Volume 85 FL (80-99) Mean Corpuscular Hemoglobin 26.3 PG (27.0-31.0) L Mean Corpuscular Hemoglobin Concent 31.0 G/DL (32.0-36.0) L Red Cell Distribution Width 15.9 % (11.6-14.8) H Platelet Count 241 K/UL (150-450) Mean Platelet Volume 7.9 FL (6.5-10.1) Neutrophils (%) (Auto) 81.8 % (45.0-75.0) H Lymphocytes (%) (Auto) 10.9 % (20.0-45.0) L Monocytes (%) (Auto) 6.0 % (1.0-10.0) Eosinophils (%) (Auto) 0.8 % (0.0-3.0) Basophils (%) (Auto) 0.5 % (0.0-2.0) Prothrombin Time 12.0 SEC (9.30-11.50) H Prothromb Time International Ratio 1.1 (0.9-1.1) Activated Partial Thromboplast Time 30 SEC (23-33) Sodium Level 189 MMOL/L (136-145) *H Potassium Level 3.5 MMOL/L (3.5-5.1) Chloride Level 146 MMOL/L (98-107) H Carbon Dioxide Level 24 MMOL/L (21-32) Anion Gap 19 mmol/L (5-15) H Blood Urea Nitrogen 99 mg/dL (7-18) H Creatinine 3.3 MG/DL (0.55-1.30) H Estimat Glomerular Filtration Rate mL/min (>60) Glucose Level 363 MG/DL (74-106) H Lactic Acid Level 6.70 mmol/L (0.4-2.0) H 5.50 mmol/L (0.66-2.22) H Calcium Level 9.1 MG/DL (8.5-10.1) Magnesium Level 3.2 MG/DL (1.8-2.4) H Total Bilirubin 0.7 MG/DL (0.2-1.0) Aspartate Amino Transf (AST/SGOT) 181 U/L (15-37) H Alanine Aminotransferase (ALT/SGPT) 197 U/L (12-78) H Alkaline Phosphatase 93 U/L (46-116) Total Creatine Kinase 6122 U/L (26-308) H Creatine Kinase MB 5.3 NG/ML (0.0-3.6) H Creatine Kinase MB Relative Index 0.0 Troponin I 0.364 ng/mL (0.000-0.056) C-Reactive Protein, Quantitative 9.6 mg/dL (0.00-0.90) H Pro-B-Type Natriuretic Peptide 799 pg/mL (0-125) H Total Protein 8.0 G/DL (6.4-8.2) Albumin 2.3 G/DL (3.4-5.0) L Globulin 5.7 g/dL Albumin/Globulin Ratio 0.4 (1.0-2.7) L Lipase 712 U/L (73-393) H Arterial Blood pH 7.439 (7.350-7.450) Arterial Blood Partial Pressure CO2 25.0 mmHg (35.0-45.0) L Arterial Blood Partial Pressure O2 85.5 mmHg (75.0-100.0) Arterial Blood HCO3 16.6 mmol/L (22.0-26.0) *L Arterial Blood Oxygen Saturation 94.9 % (95-100) L Arterial Blood Base Excess -6.0 (-2-2) L Ebenezer Test Positive Urine Color Brown Urine Appearance Slightly cloudy Urine pH 5 (4.5-8.0) Urine Specific [place] 1.015 (1.005-1.035) Urine Protein 3+ (NEGATIVE) H Urine Glucose (UA) Negative (NEGATIVE) Urine Ketones 1+ (NEGATIVE) H Urine Blood 5+ (NEGATIVE) H Urine Nitrite Positive (NEGATIVE) H Urine Bilirubin Negative (NEGATIVE) Urine Urobilinogen 4 MG/DL (0.0-1.0) H Urine Leukocyte Esterase 3+ (NEGATIVE) H Urine RBC 5-10 /HPF (0 - 0) H Urine WBC 60-80 /HPF (0 - 0) H Urine Squamous Epithelial Cells None /LPF (NONE/OCC) Urine Bacteria Many /HPF (NONE) H General Appearance: no apparent distress Head: normocephalic EENT: normal ENT inspection Neck: supple Respiratory: other - intubated Cardiovascular: normal rate Gastrointestinal: gt - c/d/i Rectal: deferred Genitourinary: no CVA tenderness Skin: normal color Current Medications Current Medications Medications (Trade) Dose Ordered Sig/Ruthie Route PRN Reason Start Time Stop Time Status Last Admin Dose Admin Albumin Human 500 ml @ 0 mls/hr Q0M IV 12/01/17 15:00 12/01/17 17:00 Aspirin (ASA) 162 mg DAILY NG 12/02/17 09:00 01/01/18 08:59 Dextrose/Sodium Chloride 1,000 ml @ 150 mls/hr Q6H40M IV 12/01/17 15:00 12/31/17 14:59 Heparin Sodium (Porcine) (Heparin 5000 units/ml) 5,000 units EVERY 12 HOURS SUBQ 12/01/17 21:00 12/31/17 20:59 Pantoprazole (Protonix) 40 mg EVERY 12 HOURS IVP 12/01/17 21:00 12/31/17 20:59 Sennosides (Senokot) 2 tab DAILY GT 12/02/17 09:00 01/01/18 08:59 Sucralfate (Carafate) 1 gm FOUR TIMES A DAY GT 12/01/17 18:00 12/31/17 17:59 GI: Plan Problems: (1) Constipation (2) Severe sepsis (3) PEG (percutaneous endoscopic gastrostomy) status (4) Malnutrition Plan hold GTFs ordered KUB evaluate abdominal distention electrolyte correction prevacid GT bowel regime prn transfusions per consultants fu labs, trend LFTs Discussed with Dr. Coronel. Thank you for this patient referral, we will follow. The patient was seen and examined at bedside and all new and available data was reviewed in the patients chart. I agree with the above findings, impression and plan. (Patient seen earlier today. Signature stamp does not reflect patient encounter time.). - MD Kellie Wills,[facility] [employer]ATOR Dec 01, 2017 15:59
[2017-12-01] MEDS: D5 1/2NS 1,000 ML IV SCH (16:07)
[2017-12-01] MEDS ORDERED: Acetaminophen 650mg/20.3ml NG SCH (17:00)
[2017-12-01] MEDS ORDERED: Vancomycin 500mg/D5W 110ml IVPB ONE ×2 (17:00)
--- NOTE | 2017-12-01 17:18 | Diagnostic Imaging Report ---
Indication: Abdominal distention Technique: Supine view of the abdomen Comparison: 10/29/2017 Findings: A gastrostomy is noted. There is a left hip hemiarthroplasty prosthesis. Bowel gas pattern is unremarkable. There is a right groin central venous catheter and a Turner catheter demonstrated Impression: No acute process. Findings as noted
[2017-12-01] MEDS ORDERED: Heparin 5000 units/ml inj SUBQ SCH (18:00)
[2017-12-01] MEDS: Piperacillin/Tazobactam 3.375 GM in NS 110 ML IVPB SCH (18:55)
[2017-12-01] MEDS: Sucralfate 1gm tab GT SCH ×2 (18:55→21:00)
--- NOTE | 2017-12-01 19:51 | Cardiology Progress Note ---
Assessment/Plan Assessment/Plan The patient is seen and examined, full consult note will be dictated. Objective Last 24 Hour Vital Signs Date Time Temp Pulse Resp B/P (MAP) Pulse Ox O2 Delivery O2 Flow Rate FiO2 12/01/17 19:11 86 34 50 12/01/17 16:41 98 33 50 12/01/17 16:03 98.1 117 33 112/61 100 Non-Rebreather 15.0 50 12/01/17 16:00 96 12/01/17 15:00 98 33 50 12/01/17 13:00 128 30 50 12/01/17 12:26 117 57 Non-Rebreather 15.0 12/01/17 12:15 123 32 Mechanical Ventilator 15.0 50 12/01/17 12:15 123 32 50 12/01/17 12:11 50 12/01/17 12:00 117 57 112/61 100 Non-Rebreather 15.0 12/01/17 11:33 98.1 122 30 85/55 90 Nasal Cannula 4.0 Laboratory Tests Test 12/01/17 11:50 12/01/17 13:30 12/01/17 14:05 White Blood Count 15.3 K/UL (4.8-10.8) H Red Blood Count 5.74 M/UL (4.70-6.10) Hemoglobin 15.1 G/DL (14.2-18.0) Hematocrit 48.7 % (42.0-52.0) Mean Corpuscular Volume 85 FL (80-99) Mean Corpuscular Hemoglobin 26.3 PG (27.0-31.0) L Mean Corpuscular Hemoglobin Concent 31.0 G/DL (32.0-36.0) L Red Cell Distribution Width 15.9 % (11.6-14.8) H Platelet Count 241 K/UL (150-450) Mean Platelet Volume 7.9 FL (6.5-10.1) Neutrophils (%) (Auto) 81.8 % (45.0-75.0) H Lymphocytes (%) (Auto) 10.9 % (20.0-45.0) L Monocytes (%) (Auto) 6.0 % (1.0-10.0) Eosinophils (%) (Auto) 0.8 % (0.0-3.0) Basophils (%) (Auto) 0.5 % (0.0-2.0) Prothrombin Time 12.0 SEC (9.30-11.50) H Prothromb Time International Ratio 1.1 (0.9-1.1) Activated Partial Thromboplast Time 30 SEC (23-33) Sodium Level 189 MMOL/L (136-145) *H Potassium Level 3.5 MMOL/L (3.5-5.1) Chloride Level 146 MMOL/L (98-107) H Carbon Dioxide Level 24 MMOL/L (21-32) Anion Gap 19 mmol/L (5-15) H Blood Urea Nitrogen 99 mg/dL (7-18) H Creatinine 3.3 MG/DL (0.55-1.30) H Estimat Glomerular Filtration Rate mL/min (>60) Glucose Level 363 MG/DL (74-106) H Lactic Acid Level 6.70 mmol/L (0.4-2.0) H 5.50 mmol/L (0.66-2.22) H Calcium Level 9.1 MG/DL (8.5-10.1) Magnesium Level 3.2 MG/DL (1.8-2.4) H Total Bilirubin 0.7 MG/DL (0.2-1.0) Aspartate Amino Transf (AST/SGOT) 181 U/L (15-37) H Alanine Aminotransferase (ALT/SGPT) 197 U/L (12-78) H Alkaline Phosphatase 93 U/L (46-116) Total Creatine Kinase 6122 U/L (26-308) H Creatine Kinase MB 5.3 NG/ML (0.0-3.6) H Creatine Kinase MB Relative Index 0.0 Troponin I 0.364 ng/mL (0.000-0.056) C-Reactive Protein, Quantitative 9.6 mg/dL (0.00-0.90) H Pro-B-Type Natriuretic Peptide 799 pg/mL (0-125) H Total Protein 8.0 G/DL (6.4-8.2) Albumin 2.3 G/DL (3.4-5.0) L Globulin 5.7 g/dL Albumin/Globulin Ratio 0.4 (1.0-2.7) L Lipase 712 U/L (73-393) H Arterial Blood pH 7.439 (7.350-7.450) Arterial Blood Partial Pressure CO2 25.0 mmHg (35.0-45.0) L Arterial Blood Partial Pressure O2 85.5 mmHg (75.0-100.0) Arterial Blood HCO3 16.6 mmol/L (22.0-26.0) *L Arterial Blood Oxygen Saturation 94.9 % (95-100) L Arterial Blood Base Excess -6.0 (-2-2) L Ebenezer Test Positive Urine Color Brown Urine Appearance Slightly cloudy Urine pH 5 (4.5-8.0) Urine Specific [place] 1.015 (1.005-1.035) Urine Protein 3+ (NEGATIVE) H Urine Glucose (UA) Negative (NEGATIVE) Urine Ketones 1+ (NEGATIVE) H Urine Blood 5+ (NEGATIVE) H Urine Nitrite Positive (NEGATIVE) H Urine Bilirubin Negative (NEGATIVE) Urine Urobilinogen 4 MG/DL (0.0-1.0) H Urine Leukocyte Esterase 3+ (NEGATIVE) H Urine RBC 5-10 /HPF (0 - 0) H Urine WBC 60-80 /HPF (0 - 0) H Urine Squamous Epithelial Cells None /LPF (NONE/OCC) Urine Bacteria Many /HPF (NONE) H Microbiology Date/Time Source Procedure Growth Status 12/01/17 13:20 Rectum Received Luke Estrada MD Dec 01, 2017 19:51
[2017-12-01] MEDS: Pantoprazole Inj IVP SCH (21:00)
[2017-12-01] MEDS: Heparin 5000 units/ml inj SUBQ SCH (21:00)
[2017-12-02] VITALS (30 sets, daily range): BP systolic 77–155; BP diastolic 40–105
[2017-12-02] MEDS: D5 1/2NS 1,000 ML IV SCH (02:12)
--- NOTE | 2017-12-02 06:00 | History and Physical Report ---
DATE OF ADMISSION: 12/01/2017 NOTE: POOR AUDIO HISTORY OF PRESENT ILLNESS: The patient is now admitted to the hospital due to respiratory failure, pneumonia, severe hypernatremia, severe dehydration, acute renal failure, elevated blood glucose, non-STEMI, most likely due to the renal leak, elevated lipase, and tachycardia. The patient was also tachypneic and tachycardic at the SNF. The patient is intubated and transferred to the ICU in critical condition, unable to get any history. PAST MEDICAL HISTORY: Organic pain syndrome, hypertension, , constipation, advanced dementia, , and BPH. ALLERGIES: Terazosin. PAST SURGICAL HISTORY: Status post PEG. FAMILY HISTORY: Unable to obtain. SOCIAL HISTORY: [facility] PHYSICAL EXAMINATION: VITAL SIGNS: Temperature is 98.4 degrees, pulse 117, blood pressure 112/61. HEENT: Pupils are reactive to light. CHEST: Bibasilar rales. CARDIOVASCULAR: Regular rate and rhythm. ABDOMEN: Positive bowel sounds. Soft. G-tube site is intact. EXTREMITIES: Does have pedal pulses present. Barely responsive to noxious stimuli. LABORATORY AND DIAGNOSTIC DATA: WBC of 15.3, hemoglobin 15.1, platelets 241. Sodium 189, potassium 3.5, chloride 146, BUN of 99, creatinine 3.3, and glucose of 363. Magnesium 3.2, AST 181, ALT of 191, alkaline phosphatase of 93. Troponin 0.367. ASSESSMENT AND PLAN: 1. Respiratory failure, intubated. 2. Severe hypernatremia due to dehydration. 3. Severe dehydration. 4. Severe acute renal failure due to dehydration. 5. Elevated LFTs. 6. Elevated sugar. The patient is in the ICU in critical condition. I have asked Dr. Estrada, Dr. Fernandes, Dr. Coronel, Dr. Leon, Dr. Anam Cruz, as well as Dr. Fantasma Nielsen to see the patient for the management of . Trish Matias M.D. DR: Odette JOB#: [id number] CC:
[2017-12-02 06:13] LABS: HEMATOCRIT 33.7 % (42.0-52.0); HEMOGLOBIN 10.5 G/DL (14.2-18.0); MEAN CORPUSCULAR VOLUME 85 FL (80-99); PLATELET COUNT 142 K/UL (150-450); RED BLOOD COUNT 3.98 M/UL (4.70-6.10); WHITE BLOOD COUNT 16.4 K/UL (4.8-10.8)
[2017-12-02 06:37] LABS: AMMONIA 38 umol/L (11-32)
[2017-12-02 06:42] LABS: CREATINE KINASE 6497 U/L (26-308)
[2017-12-02 06:44] LABS: ALANINE AMINOTRANSFERASE 137 U/L (12-78); ALBUMIN 2.4 G/DL (3.4-5.0); ALBUMIN/GLOBULIN RATIO 0.6 (1.0-2.7); ALKALINE PHOSPHATASE 68 U/L (46-116); ANION GAP 17 mmol/L (5-15); ASPARTATE AMINO TRANSFERASE 140 U/L (15-37); BILIRUBIN,TOTAL 1.1 MG/DL (0.2-1.0); BLOOD UREA NITROGEN 105 mg/dL (7-18); CALCIUM 7.3 MG/DL (8.5-10.1); CARBON DIOXIDE 20 MMOL/L (21-32); CHLORIDE 141 MMOL/L (98-107); CHOLESTEROL 82 MG/DL (< 200); CREATININE 3.3 MG/DL (0.55-1.30); GAMMA GLUTAMYL TRANSPEPTIDASE 22 U/L (5-85); HDL CHOLESTEROL 14 MG/DL (40-60); PHOSPHORUS 3.3 MG/DL (2.5-4.9); POTASSIUM 2.9 MMOL/L (3.5-5.1); TRIGLYCERIDES 241 MG/DL (30-150)
[2017-12-02 06:46] LABS: SODIUM 178 MMOL/L (136-145)
[2017-12-02 06:47] LABS: BILIRUBIN,DIRECT 0.2 MG/DL (0.0-0.3)
--- NOTE | 2017-12-02 08:54 | General Progress Note ---
Assessment/Plan Problem List: (1) Hypernatremia ICD Codes: E87.0 - Hyperosmolality and hypernatremia SNOMED: 86836968 (2) DM (3) PEG (percutaneous endoscopic gastrostomy) status ICD Codes: Z93.1 - Gastrostomy status SNOMED: 621079335, 754106876 (4) UTI (urinary tract infection) ICD Codes: N39.0 - Urinary tract infection, site not specified SNOMED: 54949945 Qualifiers: Qualified Codes: N39.0 - Urinary tract infection, site not specified (5) Respiratory failure ICD Codes: J96.90 - Respiratory failure, unspecified, unspecified whether with hypoxia or hypercapnia SNOMED: 402976977 Qualifiers: Qualified Codes: J96.00 - Acute respiratory failure, unspecified whether with hypoxia or hypercapnia (6) Renal failure (ARF), acute on chronic ICD Codes: N17.9 - Acute kidney failure, unspecified; N18.9 - Chronic kidney disease, unspecified SNOMED: 115412346 Qualifiers: Qualified Codes: N17.9 - Acute kidney failure, unspecified; N18.3 - Chronic kidney disease, stage 3 (moderate) Assessment/Plan anemia work up hold GTF given blood sugars in 400 KUB reviewed fu nephrology Subjective ROS Limited/Unobtainable: No Allergies: Coded Allergies: TERAZOSIN (Verified Allergy, Unknown, 10/27/17) Objective Last 24 Hour Vital Signs Date Time Temp Pulse Resp B/P (MAP) Pulse Ox O2 Delivery O2 Flow Rate FiO2 12/02/17 08:51 70 26 45 12/02/17 07:04 71 26 45 12/02/17 07:00 75 29 90/49 (63) 100 12/02/17 06:30 72 25 90/43 (59) 100 12/02/17 06:00 71 31 93/51 (65) 100 12/02/17 05:30 72 27 83/49 (60) 100 12/02/17 05:00 71 25 97/55 (69) 100 12/02/17 04:46 75 26 45 12/02/17 04:30 76 34 91/51 (64) 100 12/02/17 04:00 78 12/02/17 04:00 98.0 77 30 155/105 (122) 100 12/02/17 04:00 Mechanical Ventilator 12/02/17 04:00 50 12/02/17 03:07 77 30 50 12/02/17 03:00 79 25 77/40 (52) 100 12/02/17 02:30 76 28 96/50 (65) 100 12/02/17 02:00 83 27 89/44 (59) 99 12/02/17 01:30 80 29 92/48 (63) 99 12/02/17 01:00 81 30 89/54 (66) 100 12/02/17 00:37 80 32 50 12/02/17 00:30 82 32 87/49 (62) 100 12/02/17 00:00 98.5 83 29 114/95 (101) 100 12/02/17 00:00 Mechanical Ventilator 12/02/17 00:00 50 12/02/17 00:00 83 12/01/17 23:30 83 32 95/49 (64) 100 12/01/17 23:00 84 29 100/80 (87) 99 12/01/17 23:00 34 Non-Rebreather 50 12/01/17 22:49 82 34 50 12/01/17 22:30 82 27 86/43 (57) 100 12/01/17 22:00 82 29 89/44 (59) 100 12/01/17 22:00 34 Mechanical Ventilator 50 12/01/17 21:30 83 28 96/52 (67) 100 12/01/17 21:07 85 32 50 12/01/17 21:00 85 29 96/55 (69) 100 12/01/17 21:00 29 Mechanical Ventilator 50 12/01/17 20:30 85 30 107/53 (71) 100 12/01/17 20:00 86 12/01/17 20:00 Mechanical Ventilator 12/01/17 20:00 100.3 84 29 107/52 (70) 100 12/01/17 20:00 50 12/01/17 19:11 86 34 50 12/01/17 19:00 30 Mechanical Ventilator 50 12/01/17 16:41 98 33 50 12/01/17 16:03 98.1 117 33 112/61 100 Non-Rebreather 15.0 50 12/01/17 16:00 96 12/01/17 15:04 Endotracheal Tube 10/26/18 15:00 98 33 50 12/01/17 13:00 128 30 50 12/01/17 12:26 117 57 Non-Rebreather 15.0 12/01/17 12:15 123 32 Mechanical Ventilator 15.0 50 12/01/17 12:15 123 32 50 12/01/17 12:11 50 12/01/17 12:00 117 57 112/61 100 Non-Rebreather 15.0 12/01/17 11:33 98.1 122 30 85/55 90 Nasal Cannula 4.0 Intake and Output 12/01/17 12/02/17 19:00 07:00 Intake Total 428.5 ml 1085.5 ml Output Total 50 ml 285 ml Balance 378.5 ml 800.5 ml Intake Oral 0 ml IV Total 428.5 ml 1085.5 ml Output Urine Total 50 ml 285 ml # Bowel Movements 3 Laboratory Tests 12/01/17 11:50: White Blood Count 15.3H, Red Blood Count 5.74, Hemoglobin 15.1, Hematocrit 48.7 , Mean Corpuscular Volume 85, Mean Corpuscular Hemoglobin 26.3L, Mean Corpuscular Hemoglobin Concent 31.0L, Red Cell Distribution Width 15.9H, Platelet Count 241, Mean Platelet Volume 7.9, Neutrophils (%) (Auto) 81.8H, Lymphocytes (%) (Auto) 10.9L, Monocytes (%) (Auto) 6.0, Eosinophils (%) (Auto) 0.8, Basophils (%) (Auto) 0.5, Prothrombin Time 12.0H, Prothromb Time International Ratio 1.1, Activated Partial Thromboplast Time 30, Sodium Level 189*H, Potassium Level 3.5, Chloride Level 146H, Carbon Dioxide Level 24, Anion Gap 19H, Blood Urea Nitrogen 99H, Creatinine 3.3H, Estimat Glomerular Filtration Rate , Glucose Level 363H, Lactic Acid Level 6.70H, Calcium Level 9.1 , Magnesium Level 3.2H, Total Bilirubin 0.7, Aspartate Amino Transf (AST/SGOT) 181H, Alanine Aminotransferase (ALT/SGPT) 197H, Alkaline Phosphatase 93, Total Creatine Kinase 6122H, Creatine Kinase MB 5.3H, Creatine Kinase MB Relative Index 0.0, Troponin I 0.364H, C-Reactive Protein, Quantitative 9.6H, Pro-B-Type Natriuretic Peptide 799H, Total Protein 8.0, Albumin 2.3L, Globulin 5.7, Albumin /Globulin Ratio 0.4L, Lipase 712H 12/01/17 13:30: Arterial Blood pH 7.439, Arterial Blood Partial Pressure CO2 25.0L, Arterial Blood Partial Pressure O2 85.5, Arterial Blood HCO3 16.6*L, Arterial Blood Oxygen Saturation 94.9L, Arterial Blood Base Excess -6.0L, Ebenezer Test Positive 12/01/17 14:05: Lactic Acid Level 5.50H, Urine Color Brown, Urine Appearance Slightly cloudy, Urine pH 5, Urine Specific [place] 1.015, Urine Protein 3+H, Urine Glucose (UA) Negative, Urine Ketones 1+H, Urine Blood 5+H, Urine Nitrite PositiveH, Urine Bilirubin Negative, Urine Urobilinogen 4H, Urine Leukocyte Esterase 3+H, Urine RBC 5-10H, Urine WBC 60-80H, Urine Squamous Epithelial Cells None, Urine Bacteria ManyH 12/02/17 04:00: White Blood Count 16.4H, Red Blood Count 3.98L, Hemoglobin 10.5#L, Hematocrit 33.7#L, Mean Corpuscular Volume 85, Mean Corpuscular Hemoglobin 26.4L, Mean Corpuscular Hemoglobin Concent 31.3L, Red Cell Distribution Width 16.0H, Platelet Count 142L, Mean Platelet Volume 8.3, Neutrophils (%) (Auto) , Lymphocytes (%) (Auto) , Monocytes (%) (Auto) , Eosinophils (%) (Auto) , Basophils (%) (Auto) , Sodium Level 178#*H, Potassium Level 2.9L, Chloride Level 141H, Carbon Dioxide Level 20L, Anion Gap 17H, Blood Urea Nitrogen 105H, Creatinine 3.3H, Estimat Glomerular Filtration Rate , Glucose Level 486#H, Lactic Acid Level 4.80H, Calcium Level 7.3L, Magnesium Level 2.6H, Total Bilirubin 1.1H, Aspartate Amino Transf (AST/SGOT) 140H, Alanine Aminotransferase (ALT/SGPT) 137H, Alkaline Phosphatase 68, Total Creatine Kinase 6497H, Troponin I 1.128H, C-Reactive Protein, Quantitative [Pending], Pro -B-Type Natriuretic Peptide 788H, Total Protein 6.5, Albumin 2.4L, Globulin 4.1 , Albumin/Globulin Ratio 0.6L, Lipase 311, Neutrophils % (Manual) [Pending], Lymphocytes % (Manual) [Pending], Hemoglobin A1c 6.7H, Uric Acid 8.8H, Phosphorus Level 3.3, Direct Bilirubin 0.2, Gamma Glutamyl Transpeptidase 22, Ammonia 38H, Triglycerides Level 241H, Cholesterol Level 82, LDL Cholesterol 29 , HDL Cholesterol 14L, Cholesterol/HDL Ratio 5.9H, Thyroid Stimulating Hormone ( TSH) 1.391, Cortisol AM Sample [Pending] 12/02/17 07:40: Arterial Blood pH 7.430, Arterial Blood Partial Pressure CO2 24.1*L, Arterial Blood Partial Pressure O2 111.3H, Arterial Blood HCO3 15.6*L, Arterial Blood Oxygen Saturation 97.0, Arterial Blood Base Excess -7.2L, Ebenezer Test Positive Height (Feet): 5 Height (Inches): 5.00 Weight (Pounds): 143 General Appearance: lethargic EENT: normal ENT inspection Neck: supple Cardiovascular: bradycardia Respiratory/Chest: decreased breath sounds Abdomen: soft, hypoactive bowel sounds Extremities: non-tender Juan Coronel MD Dec 02, 2017 08:54
[2017-12-02] MEDS ORDERED: Pantoprazole Inj IVP SCH (09:00)
[2017-12-02] MEDS ORDERED: Insulin Rate Change 1 Each MISC PRN (09:30)
[2017-12-02] MEDS ORDERED: Insulin Human Regular 100units/ml 3ml IV PRN (09:30)
[2017-12-02] MEDS: Pantoprazole Inj IVP SCH ×2 (09:37→20:41)
[2017-12-02] MEDS: Nitroglycerin Patch 0.4mg TDERMAL SCH (09:37)
[2017-12-02] MEDS: Piperacillin/Tazobactam 3.375 GM in NS 110 ML IVPB SCH ×2 (09:38→21:16)
[2017-12-02] MEDS: Sucralfate 1gm tab GT SCH ×4 (09:38→20:41)
[2017-12-02] MEDS: Sennosides 8.6mg tab GT SCH (09:39)
[2017-12-02] MEDS: Aspirin Baby 81mg NG SCH (09:58)
[2017-12-02] MEDS: Heparin 5000 units/ml inj SUBQ SCH ×2 (09:59→20:42)
[2017-12-02] MEDS ORDERED: NS 275ml ONE (10:18)
[2017-12-02] MEDS ORDERED: D5 1/2NS 1000ml IV ONE (10:18)
[2017-12-02] MEDS: Insulin Human Regular 100units/ml 3ml IV PRN ×2 (12:49→13:53)
--- NOTE | 2017-12-02 12:53 | Nephrology Progress Note ---
Assessment/Plan Problem List: (1) Renal failure (ARF), acute on chronic (2) Respiratory failure (3) Hypernatremia (4) Rhabdomyolysis (5) DM Assessment Acute respiratory failure- Acute Renal failure- Severe Dehydration PEG Sepsis / UTI / Pneumonia Hypotension- Septic Shock High Lipase Rhabdo- High CPK Elevated Troponin Dementia Plan Vent- Respiratory support Fluids Gastric support Antibiotics Monitor renal parameters Poor prognosis Per orders Subjective ROS Limited/Unobtainable: Yes Objective Objective Last 24 Hour Vital Signs Date Time Temp Pulse Resp B/P (MAP) Pulse Ox O2 Delivery O2 Flow Rate FiO2 12/02/17 10:43 68 24 45 12/02/17 09:37 101/53 12/02/17 08:51 70 26 45 12/02/17 08:00 Mechanical Ventilator 12/02/17 07:04 71 26 45 12/02/17 07:00 75 29 90/49 (63) 100 12/02/17 06:30 72 25 90/43 (59) 100 12/02/17 06:00 71 31 93/51 (65) 100 12/02/17 05:30 72 27 83/49 (60) 100 12/02/17 05:00 71 25 97/55 (69) 100 12/02/17 04:46 75 26 45 12/02/17 04:30 76 34 91/51 (64) 100 12/02/17 04:00 78 12/02/17 04:00 98.0 77 30 155/105 (122) 100 12/02/17 04:00 Mechanical Ventilator 12/02/17 04:00 50 12/02/17 03:07 77 30 50 12/02/17 03:00 79 25 77/40 (52) 100 12/02/17 02:30 76 28 96/50 (65) 100 12/02/17 02:00 83 27 89/44 (59) 99 12/02/17 01:30 80 29 92/48 (63) 99 12/02/17 01:00 81 30 89/54 (66) 100 12/02/17 00:37 80 32 50 12/02/17 00:30 82 32 87/49 (62) 100 12/02/17 00:00 98.5 83 29 114/95 (101) 100 12/02/17 00:00 Mechanical Ventilator 12/02/17 00:00 50 12/02/17 00:00 83 12/01/17 23:30 83 32 95/49 (64) 100 12/01/17 23:00 84 29 100/80 (87) 99 12/01/17 23:00 34 Non-Rebreather 50 12/01/17 22:49 82 34 50 12/01/17 22:30 82 27 86/43 (57) 100 12/01/17 22:00 82 29 89/44 (59) 100 12/01/17 22:00 34 Mechanical Ventilator 50 12/01/17 21:30 83 28 96/52 (67) 100 12/01/17 21:07 85 32 50 12/01/17 21:00 85 29 96/55 (69) 100 12/01/17 21:00 29 Mechanical Ventilator 50 12/01/17 20:30 85 30 107/53 (71) 100 12/01/17 20:00 86 12/01/17 20:00 Mechanical Ventilator 12/01/17 20:00 100.3 84 29 107/52 (70) 100 12/01/17 20:00 50 12/01/17 19:11 86 34 50 12/01/17 19:00 30 Mechanical Ventilator 50 12/01/17 16:41 98 33 50 12/01/17 16:03 98.1 117 33 112/61 100 Non-Rebreather 15.0 50 12/01/17 16:00 96 12/01/17 15:04 Endotracheal Tube 12/01/17 15:00 98 33 50 12/01/17 13:00 128 30 50 Intake and Output 12/01/17 12/02/17 18:59 06:59 Intake Total 0 ml 1514.0 ml Output Total 295 ml Balance 0 ml 1219.0 ml Intake Oral 0 ml IV Total 1514.0 ml Output Urine Total 295 ml # Bowel Movements 3 Laboratory Tests 12/01/17 13:30: Arterial Blood pH 7.439, Arterial Blood Partial Pressure CO2 25.0L, Arterial Blood Partial Pressure O2 85.5, Arterial Blood HCO3 16.6*L, Arterial Blood Oxygen Saturation 94.9L, Arterial Blood Base Excess -6.0L, Ebenezer Test Positive 12/01/17 14:05: Urine Color Brown, Urine Appearance Slightly cloudy, Urine pH 5, Urine Specific [place] 1.015, Urine Protein 3+H, Urine Glucose (UA) Negative, Urine Ketones 1+H , Urine Blood 5+H, Urine Nitrite PositiveH, Urine Bilirubin Negative, Urine Urobilinogen 4H, Urine Leukocyte Esterase 3+H, Urine RBC 5-10H, Urine WBC 60-80H , Urine Squamous Epithelial Cells None, Urine Bacteria ManyH, Lactic Acid Level 5.50H 12/02/17 04:00: Lactic Acid Level 4.80H, White Blood Count 16.4H, Red Blood Count 3.98L, Hemoglobin 10.5#L, Hematocrit 33.7#L, Mean Corpuscular Volume 85, Mean Corpuscular Hemoglobin 26.4L, Mean Corpuscular Hemoglobin Concent 31.3L, Red Cell Distribution Width 16.0H, Platelet Count 142L, Mean Platelet Volume 8.3, Neutrophils (%) (Auto) , Lymphocytes (%) (Auto) , Monocytes (%) (Auto) , Eosinophils (%) (Auto) , Basophils (%) (Auto) , Differential Total Cells Counted 100, Neutrophils % (Manual) 55, Lymphocytes % (Manual) 5L, Monocytes % ( Manual) 4, Eosinophils % (Manual) 0, Basophils % (Manual) 0, Band Neutrophils 36H, Nucleated Red Blood Cells 1, Platelet Estimate DecreasedL, Platelet Morphology Normal, Anisocytosis 1+, Sodium Level 178#*H, Potassium Level 2.9L, Chloride Level 141H, Carbon Dioxide Level 20L, Anion Gap 17H, Blood Urea Nitrogen 105H, Creatinine 3.3H, Estimat Glomerular Filtration Rate , Glucose Level 486#H, Hemoglobin A1c 6.7H, Uric Acid 8.8H, Calcium Level 7.3L, Phosphorus Level 3.3, Magnesium Level 2.6H, Total Bilirubin 1.1H, Direct Bilirubin 0.2, Gamma Glutamyl Transpeptidase 22, Aspartate Amino Transf (AST/ SGOT) 140H, Alanine Aminotransferase (ALT/SGPT) 137H, Alkaline Phosphatase 68, Ammonia 38H, Total Creatine Kinase 6497H, Troponin I 1.128H, C-Reactive Protein , Quantitative 16.8H, Pro-B-Type Natriuretic Peptide 788H, Total Protein 6.5, Albumin 2.4L, Globulin 4.1, Albumin/Globulin Ratio 0.6L, Triglycerides Level 241H, Cholesterol Level 82, LDL Cholesterol 29, HDL Cholesterol 14L, Cholesterol /HDL Ratio 5.9H, Lipase 311, Thyroid Stimulating Hormone (TSH) 1.391, Cortisol AM Sample [Pending] 12/02/17 07:40: Arterial Blood pH 7.430, Arterial Blood Partial Pressure CO2 24.1*L, Arterial Blood Partial Pressure O2 111.3H, Arterial Blood HCO3 15.6*L, Arterial Blood Oxygen Saturation 97.0, Arterial Blood Base Excess -7.2L, Ebenezer Test Positive 12/02/17 09:15: Lactic Acid Level 2.50H Height (Feet): 5 Height (Inches): 5.00 Weight (Pounds): 143 General Appearance: no apparent distress Cardiovascular: normal rate Respiratory/Chest: decreased breath sounds Abdomen: soft Objective no other change Randolph Fernandes MD Dec 02, 2017 12:53
[2017-12-02 17:32] LABS: ANION GAP 16 mmol/L (5-15); BLOOD UREA NITROGEN 107 mg/dL (7-18); CALCIUM 7.2 MG/DL (8.5-10.1); CARBON DIOXIDE 20 MMOL/L (21-32); CHLORIDE 141 MMOL/L (98-107); CREATININE 3.1 MG/DL (0.55-1.30); POTASSIUM 2.8 MMOL/L (3.5-5.1)
[2017-12-02 17:37] LABS: SODIUM 176 MMOL/L (136-145)
--- NOTE | 2017-12-02 18:11 | Pulmonolgy Critical Care Note ---
Critical Care - Asmt/Plan Assessment/Plan: Pulmonary Critical Care Note Patient is status post recent G-Tube placement, sent in from [facility], noted to have elevated sodium level. Noted to have low blood pressure, hypoxia and altered mental status. Severe Hypernatremia, hypokalemia Stable on Vent ON Allergies: Coded Allergies: TERAZOSIN (Verified Allergy, Unknown, 10/27/17) Patient History Past Medical History: see triage record Social History Narrative SNF Reviewed Nursing Documentation: PMH: Agreed; PSxH: Agreed Nursing Documentation-PMH Hx Cardiac Problems: Yes Hx Hypertension: Yes Hx Cancer: No Hx Gastrointestinal Problems: Yes Hx Neurological Problems: Yes Hx Dementia: Yes Physical Exam Vital Signs Date Time Temp Pulse Resp B/P (MAP) Pulse Ox O2 Delivery O2 Flow Rate FiO2 12/01/17 11:33 98.1 122 30 85/55 90 Nasal Cannula 4.0 12/01/17 12:11 100 Procedures Central Line Central Line : Consent: Emergent Central Line Lumen: triple Maximal Sterile Barrier Tech: yes cap, yes mask, yes sterile gown, yes sterile gloves, yes large sterile sheet, yes hand hygiene, yes chlorhexidine prep Central Line Postion: femoral (R) Anesthesia: Lidocaine Complications: art stick once Attempts: Other - 2 Patient Tolerated: Well Complications: None Progress Ultrasound guidance. EBL = 8 ml Intubation Intubation : Consent: Emergent Intubation Method: orotracheal Tube Size (cm): 7.5 Medications: Other - none Breath Sounds after Intubation: equal Intubation Complications: no complications Post Intubation Xray: Yes Attempts: One Patient Tolerated: Well Complications: None Medical Decision Making Diagnostic Impression: Severe Hypernatremia/dehydration Severe sepsis, source unclear, possible Early Pneumonia vs GI source Recent G tube insertion H/o Dementia H/o Hypertension, currently hypotensive NSTEMI (non-ST elevated myocardial infarction) Hypoxic Respiratory Failure s/p Intubation Renal failure (ARF), acute on chronic Pancreatitis Elevated Glucose Plan: Admit to ICU Continue current AC settings:AC 16 500 P5 ABG Fentanyl gtt PRN IV hydration Insulin gtt Broad Spectrum Antibiotics SQ Heparin Protonix Monitor labs EKG was sinus tachycardia and nonspecific ST-T wave changes suggesting subendocardial injury. Chest x-ray postintubation no evidence of infiltrate ET tube is replacement. Based on the clinical exam and the purulent sputum this patient has pneumonia. Rhythm Strip Diag. Results Rhythm: no PVC's, no ectopy, other - ST Chest X-Ray Diagnostic Results Chest X-Ray Diagnostic Results : Chest X-Ray Ordered: Yes # of Views/Limited/Complete: 1 View Indication: Other Interpretation: no effusion, no pneumothorax, other - ET good placement CT Chest: No evidence of acute pulmonary embolus or other acute thoracic pathology. Mild cardiomegaly COPD changes Equivocal trace bilateral pleural effusions Pericardial effusion Mild bilateral gynecomastia Gastrostomy tube in good position. This was placed yesterday per the medical record, so adjacent extraluminal gas bubbles are an expected finding Case seen for 75 mins, 43 mins care co-ordination DW RN Booker Baumann MD Critical Care - Objective Last 24 Hour Vital Signs Date Time Temp Pulse Resp B/P (MAP) Pulse Ox O2 Delivery O2 Flow Rate FiO2 12/02/17 16:55 73 28 45 12/02/17 14:42 72 33 45 12/02/17 12:51 69 24 45 12/02/17 12:00 98.0 66 30 86/47 (60) 100 12/02/17 12:00 45 12/02/17 12:00 64 12/02/17 12:00 Mechanical Ventilator 12/02/17 11:00 66 25 89/54 (66) 100 12/02/17 10:43 68 24 45 12/02/17 10:00 69 24 103/52 (69) 100 12/02/17 09:37 101/53 12/02/17 09:00 70 22 98/49 (65) 100 12/02/17 08:51 70 26 45 12/02/17 08:00 69 12/02/17 08:00 45 12/02/17 08:00 Mechanical Ventilator 12/02/17 08:00 97.9 69 25 91/55 (67) 100 12/02/17 07:04 71 26 45 12/02/17 07:00 75 29 90/49 (63) 100 12/02/17 06:30 72 25 90/43 (59) 100 12/02/17 06:00 71 31 93/51 (65) 100 12/02/17 05:30 72 27 83/49 (60) 100 12/02/17 05:00 71 25 97/55 (69) 100 12/02/17 04:46 75 26 45 12/02/17 04:30 76 34 91/51 (64) 100 12/02/17 04:00 78 12/02/17 04:00 98.0 77 30 155/105 (122) 100 12/02/17 04:00 Mechanical Ventilator 12/02/17 04:00 50 12/02/17 03:07 77 30 50 12/02/17 03:00 79 25 77/40 (52) 100 12/02/17 02:30 76 28 96/50 (65) 100 12/02/17 02:00 83 27 89/44 (59) 99 12/02/17 01:30 80 29 92/48 (63) 99 12/02/17 01:00 81 30 89/54 (66) 100 12/02/17 00:37 80 32 50 12/02/17 00:30 82 32 87/49 (62) 100 12/02/17 00:00 98.5 83 29 114/95 (101) 100 12/02/17 00:00 Mechanical Ventilator 12/02/17 00:00 50 12/02/17 00:00 83 12/01/17 23:30 83 32 95/49 (64) 100 12/01/17 23:00 84 29 100/80 (87) 99 12/01/17 23:00 34 Non-Rebreather 50 12/01/17 22:49 82 34 50 12/01/17 22:30 82 27 86/43 (57) 100 12/01/17 22:00 82 29 89/44 (59) 100 12/01/17 22:00 34 Mechanical Ventilator 50 12/01/17 21:30 83 28 96/52 (67) 100 12/01/17 21:07 85 32 50 12/01/17 21:00 85 29 96/55 (69) 100 12/01/17 21:00 29 Mechanical Ventilator 50 12/01/17 20:30 85 30 107/53 (71) 100 12/01/17 20:00 86 12/01/17 20:00 Mechanical Ventilator 12/01/17 20:00 100.3 84 29 107/52 (70) 100 12/01/17 20:00 50 12/01/17 19:11 86 34 50 12/01/17 19:00 30 Mechanical Ventilator 50 Micro: Microbiology Date/Time Source Procedure Growth Status 12/01/17 14:05 Urine,Clean Catch Urine Culture - Preliminary NO GROWTH Resulted 12/01/17 13:20 Rectum Received Accucheck: 197 Critical Care - Subjective ROS Limited/Unobtainable: Yes Condition: stable FI02: 45 Vent Support Breath Rate: 16 Vent Support Mode: AC Vent Tidal Volume: 500 Sputum Amount: Small PEEP: 5.0 PIP: 20 Tube Feeding Amount: 30 I&O: Intake and Output 12/01/17 12/02/17 19:00 07:00 Intake Total 428.5 ml 1085.5 ml Output Total 50 ml 285 ml Balance 378.5 ml 800.5 ml Intake Oral 0 ml IV Total 428.5 ml 1085.5 ml Output Urine Total 50 ml 285 ml # Bowel Movements 3 ET-Tube: 7.5 ET Position: 22 Booker Baumann MD Dec 02, 2017 18:11
[2017-12-02] MEDS ORDERED: NS 250 ML IVPB ONE (18:15)
[2017-12-02] MEDS: 1/2NS w/KCl 20mEq 1000ml 1,000 ML IV SCH (18:41)
--- NOTE | 2017-12-02 19:03 | Consultation ---
Consult Note Consult Note HEMATOLOGY-ONCOLOGY CONSULTATION REFERRING PHYSICIAN: Trish Browne MD DATE OF CONSULTATION: 12/02/2017 REASON FOR CONSULTATION: Evaluation of anemia, leukocytosis, and thrombocytopenia HPI: Patient was sent in for alterations of sodium. Also the BLS any illicit brought him in said that his blood pressure is low and his oximetry was low. Also he was unresponsive for them. ROS limited, patient unresponsive intubated in ICU. S/P PEG last month here at [facility]. GT site C/D/I with no leakage or erythema around the site. Patient has abdominal distention, tympanic in the lower quadrants. Labs reviewed; leukocytosis, no anemia, transaminitis. Hematology services consulted for further evaluation of leukocytosis, anemia, and thrombocytopenia. Patient History Limited by: medical condition History Provided By: Medical Record Social History: Denies: smoking, alcohol use, drug use, other Review of Systems All Other Systems: limited Physical Exam Vital Signs Date Time Temp Pulse Resp B/P (MAP) Pulse Ox O2 Delivery O2 Flow Rate FiO2 12/01/17 11:33 98.1 122 30 85/55 90 Nasal Cannula 4.0 12/01/17 12:11 50 Sp02 EP Interpretation: reviewed Labs Laboratory Tests Test 12/01/17 11:50 12/01/17 13:30 12/01/17 14:05 White Blood Count 15.3 K/UL (4.8-10.8) H Red Blood Count 5.74 M/UL (4.70-6.10) Hemoglobin 15.1 G/DL (14.2-18.0) Hematocrit 48.7 % (42.0-52.0) Mean Corpuscular Volume 85 FL (80-99) Mean Corpuscular Hemoglobin 26.3 PG (27.0-31.0) L Mean Corpuscular Hemoglobin Concent 31.0 G/DL (32.0-36.0) L Red Cell Distribution Width 15.9 % (11.6-14.8) H Platelet Count 241 K/UL (150-450) Mean Platelet Volume 7.9 FL (6.5-10.1) Neutrophils (%) (Auto) 81.8 % (45.0-75.0) H Lymphocytes (%) (Auto) 10.9 % (20.0-45.0) L Monocytes (%) (Auto) 6.0 % (1.0-10.0) Eosinophils (%) (Auto) 0.8 % (0.0-3.0) Basophils (%) (Auto) 0.5 % (0.0-2.0) Prothrombin Time 12.0 SEC (9.30-11.50) H Prothromb Time International Ratio 1.1 (0.9-1.1) Activated Partial Thromboplast Time 30 SEC (23-33) Sodium Level 189 MMOL/L (136-145) *H Potassium Level 3.5 MMOL/L (3.5-5.1) Chloride Level 146 MMOL/L (98-107) H Carbon Dioxide Level 24 MMOL/L (21-32) Anion Gap 19 mmol/L (5-15) H Blood Urea Nitrogen 99 mg/dL (7-18) H Creatinine 3.3 MG/DL (0.55-1.30) H Estimat Glomerular Filtration Rate mL/min (>60) Glucose Level 363 MG/DL (74-106) H Lactic Acid Level 6.70 mmol/L (0.4-2.0) H 5.50 mmol/L (0.66-2.22) H Calcium Level 9.1 MG/DL (8.5-10.1) Magnesium Level 3.2 MG/DL (1.8-2.4) H Total Bilirubin 0.7 MG/DL (0.2-1.0) Aspartate Amino Transf (AST/SGOT) 181 U/L (15-37) H Alanine Aminotransferase (ALT/SGPT) 197 U/L (12-78) H Alkaline Phosphatase 93 U/L (46-116) Total Creatine Kinase 6122 U/L (26-308) H Creatine Kinase MB 5.3 NG/ML (0.0-3.6) H Creatine Kinase MB Relative Index 0.0 Troponin I 0.364 ng/mL (0.000-0.056) C-Reactive Protein, Quantitative 9.6 mg/dL (0.00-0.90) H Pro-B-Type Natriuretic Peptide 799 pg/mL (0-125) H Total Protein 8.0 G/DL (6.4-8.2) Albumin 2.3 G/DL (3.4-5.0) L Globulin 5.7 g/dL Albumin/Globulin Ratio 0.4 (1.0-2.7) L Lipase 712 U/L (73-393) H Arterial Blood pH 7.439 (7.350-7.450) Arterial Blood Partial Pressure CO2 25.0 mmHg (35.0-45.0) L Arterial Blood Partial Pressure O2 85.5 mmHg (75.0-100.0) Arterial Blood HCO3 16.6 mmol/L (22.0-26.0) *L Arterial Blood Oxygen Saturation 94.9 % (95-100) L Arterial Blood Base Excess -6.0 (-2-2) L Ebenezer Test Positive Urine Color Brown Urine Appearance Slightly cloudy Urine pH 5 (4.5-8.0) Urine Specific [place] 1.015 (1.005-1.035) Urine Protein 3+ (NEGATIVE) H Urine Glucose (UA) Negative (NEGATIVE) Urine Ketones 1+ (NEGATIVE) H Urine Blood 5+ (NEGATIVE) H Urine Nitrite Positive (NEGATIVE) H Urine Bilirubin Negative (NEGATIVE) Urine Urobilinogen 4 MG/DL (0.0-1.0) H Urine Leukocyte Esterase 3+ (NEGATIVE) H Urine RBC 5-10 /HPF (0 - 0) H Urine WBC 60-80 /HPF (0 - 0) H Urine Squamous Epithelial Cells None /LPF (NONE/OCC) Urine Bacteria Many /HPF (NONE) H General Appearance: no apparent distress Head: normocephalic EENT: normal ENT inspection Neck: supple Respiratory: other - intubated Cardiovascular: normal rate Gastrointestinal: gt - c/d/i Rectal: deferred Genitourinary: no CVA tenderness Skin: normal color Current Medications Current Medications Medications (Trade) Dose Ordered Sig/Ruthie Route PRN Reason Start Time Stop Time Status Last Admin Dose Admin Albumin Human 500 ml @ 0 mls/hr Q0M IV 12/01/17 15:00 12/01/17 17:00 Aspirin (ASA) 162 mg DAILY NG 12/02/17 09:00 01/01/18 08:59 Dextrose/Sodium Chloride 1,000 ml @ 150 mls/hr Q6H40M IV 12/01/17 15:00 12/31/17 14:59 Heparin Sodium (Porcine) (Heparin 5000 units/ml) 5,000 units EVERY 12 HOURS SUBQ 12/01/17 21:00 12/31/17 20:59 Pantoprazole (Protonix) 40 mg EVERY 12 HOURS IVP 12/01/17 21:00 12/31/17 20:59 Sennosides (Senokot) 2 tab DAILY GT 12/02/17 09:00 01/01/18 08:59 Sucralfate (Carafate) 1 gm FOUR TIMES A DAY GT 12/01/17 18:00 12/31/17 17:59 ASSESSMENT AND RECOMMENDATIONS # Anemia of chronic disease (or of iron deficiency) due to underlying chronic medical issues, multifactorial. --> Anemia w/u has been ordered. --> No evidence of hemolysis noted, peripheral smear has been reviewed --> Hgb goal >7. Transfuse as needed. # Leukocytosis. Likely related to underlying infection vs reactive preocess. --> Imaging has been reviewed. Shows --> Blood cs and urine cx are pending --> Has been started on abx, empiric tx # Thrombocytopenia. Potential causes multifactorial, evaluate leiver and viral etiologies. --> Have ordered for Hep panel and HIV --> Ordered US abd for evaluation of cirrhosis and hsm --> Abx and other meds have been reviewed. --> Ok for ppx if heparin >50k with either heparin or lovenox # Constipation. --> ordered KUB evaluate abdominal distention --> electrolyte correction --> prevacid GT bowel regime # Sepsis. # PEG. # Malnutrition. GREATLY APPRECIATE CONSULTATION. Beny Dalton MD Dec 02, 2017 19:03
[2017-12-02] MEDS: Dyna-Hex 2% Top Sol 2oz TOPIC SCH (20:41)
[2017-12-02] MEDS: NovoLOG Insulin Flexpen SUBQ SCH (20:42)
--- NOTE | 2017-12-02 21:23 | General Progress Note ---
Assessment/Plan Problem List: (1) Hypoxemia ICD Codes: R09.02 - Hypoxemia SNOMED: 032053759 (2) Pneumonia ICD Codes: J18.9 - Pneumonia, unspecified organism SNOMED: 302797699 (3) Malnutrition ICD Codes: E46 - Unspecified protein-calorie malnutrition SNOMED: 22740514 (4) Renal failure (ARF), acute on chronic ICD Codes: N17.9 - Acute kidney failure, unspecified; N18.9 - Chronic kidney disease, unspecified SNOMED: 849811188 Qualifiers: Qualified Codes: N17.9 - Acute kidney failure, unspecified; N18.3 - Chronic kidney disease, stage 3 (moderate) (5) Respiratory failure ICD Codes: J96.90 - Respiratory failure, unspecified, unspecified whether with hypoxia or hypercapnia SNOMED: 629330409 Qualifiers: Qualified Codes: J96.00 - Acute respiratory failure, unspecified whether with hypoxia or hypercapnia (6) Severe sepsis ICD Codes: A41.9 - Sepsis, unspecified organism; R65.20 - Severe sepsis without septic shock SNOMED: 13627859 (7) UTI (urinary tract infection) ICD Codes: N39.0 - Urinary tract infection, site not specified SNOMED: 19528385 Qualifiers: Qualified Codes: N39.0 - Urinary tract infection, site not specified (8) NSTEMI (non-ST elevated myocardial infarction) ICD Codes: I21.4 - Non-ST elevation (NSTEMI) myocardial infarction SNOMED: 533480980 (9) Hypernatremia ICD Codes: E87.0 - Hyperosmolality and hypernatremia SNOMED: 49398842 (10) DM (11) Rhabdomyolysis ICD Codes: M62.82 - Rhabdomyolysis SNOMED: 343802239 Status: deteriorating Assessment/Plan hypernatremia improving resp failure uti sepsis abx per id afebrile critical condition needs fluids nstemi Subjective ROS Limited/Unobtainable: Yes Allergies: Coded Allergies: TERAZOSIN (Verified Allergy, Unknown, 10/27/17) Objective Last 24 Hour Vital Signs Date Time Temp Pulse Resp B/P (MAP) Pulse Ox O2 Delivery O2 Flow Rate FiO2 12/02/17 20:00 74 12/02/17 20:00 Mechanical Ventilator 12/02/17 20:00 45 12/02/17 19:00 75 25 97/48 (64) 100 12/02/17 18:49 71 26 45 12/02/17 18:00 74 27 102/47 (65) 100 12/02/17 17:00 75 28 85/44 (58) 100 12/02/17 16:55 73 28 45 12/02/17 16:00 Mechanical Ventilator 12/02/17 16:00 72 32 82/42 (55) 100 12/02/17 16:00 72 12/02/17 16:00 45 12/02/17 15:00 71 31 85/41 (56) 100 12/02/17 14:42 72 33 45 12/02/17 14:00 71 29 92/45 (61) 100 12/02/17 13:00 70 25 96/52 (67) 100 12/02/17 12:51 69 24 45 12/02/17 12:00 98.0 66 30 86/47 (60) 100 12/02/17 12:00 45 12/02/17 12:00 64 12/02/17 12:00 Mechanical Ventilator 12/02/17 11:00 66 25 89/54 (66) 100 12/02/17 10:43 68 24 45 12/02/17 10:00 69 24 103/52 (69) 100 12/02/17 09:37 101/53 12/02/17 09:00 70 22 98/49 (65) 100 12/02/17 08:51 70 26 45 12/02/17 08:00 69 12/02/17 08:00 45 12/02/17 08:00 Mechanical Ventilator 12/02/17 08:00 97.9 69 25 91/55 (67) 100 12/02/17 07:04 71 26 45 12/02/17 07:00 75 29 90/49 (63) 100 12/02/17 06:30 72 25 90/43 (59) 100 12/02/17 06:00 71 31 93/51 (65) 100 12/02/17 05:30 72 27 83/49 (60) 100 12/02/17 05:00 71 25 97/55 (69) 100 12/02/17 04:46 75 26 45 12/02/17 04:30 76 34 91/51 (64) 100 12/02/17 04:00 78 12/02/17 04:00 98.0 77 30 155/105 (122) 100 12/02/17 04:00 Mechanical Ventilator 12/02/17 04:00 50 12/02/17 03:07 77 30 50 12/02/17 03:00 79 25 77/40 (52) 100 12/02/17 02:30 76 28 96/50 (65) 100 12/02/17 02:00 83 27 89/44 (59) 99 12/02/17 01:30 80 29 92/48 (63) 99 12/02/17 01:00 81 30 89/54 (66) 100 12/02/17 00:37 80 32 50 12/02/17 00:30 82 32 87/49 (62) 100 12/02/17 00:00 98.5 83 29 114/95 (101) 100 12/02/17 00:00 Mechanical Ventilator 12/02/17 00:00 50 12/02/17 00:00 83 12/01/17 23:30 83 32 95/49 (64) 100 12/01/17 23:00 84 29 100/80 (87) 99 12/01/17 23:00 34 Non-Rebreather 50 12/01/17 22:49 82 34 50 12/01/17 22:30 82 27 86/43 (57) 100 12/01/17 22:00 82 29 89/44 (59) 100 12/01/17 22:00 34 Mechanical Ventilator 50 12/01/17 21:30 83 28 96/52 (67) 100 Intake and Output 12/01/17 12/02/17 19:00 07:00 Intake Total 428.5 ml 1085.5 ml Output Total 50 ml 285 ml Balance 378.5 ml 800.5 ml Intake Oral 0 ml IV Total 428.5 ml 1085.5 ml Output Urine Total 50 ml 285 ml # Bowel Movements 3 Laboratory Tests 12/02/17 04:00: White Blood Count 16.4H, Red Blood Count 3.98L, Hemoglobin 10.5#L, Hematocrit 33.7#L, Mean Corpuscular Volume 85, Mean Corpuscular Hemoglobin 26.4L, Mean Corpuscular Hemoglobin Concent 31.3L, Red Cell Distribution Width 16.0H, Platelet Count 142L, Mean Platelet Volume 8.3, Neutrophils (%) (Auto) , Lymphocytes (%) (Auto) , Monocytes (%) (Auto) , Eosinophils (%) (Auto) , Basophils (%) (Auto) , Differential Total Cells Counted 100, Neutrophils % ( Manual) 55, Lymphocytes % (Manual) 5L, Monocytes % (Manual) 4, Eosinophils % ( Manual) 0, Basophils % (Manual) 0, Band Neutrophils 36H, Nucleated Red Blood Cells 1, Platelet Estimate DecreasedL, Platelet Morphology Normal, Anisocytosis 1+, Sodium Level 178#*H, Potassium Level 2.9L, Chloride Level 141H, Carbon Dioxide Level 20L, Anion Gap 17H, Blood Urea Nitrogen 105H, Creatinine 3.3H, Estimat Glomerular Filtration Rate , Glucose Level 486#H, Hemoglobin A1c 6.7H, Lactic Acid Level 4.80H, Uric Acid 8.8H, Calcium Level 7.3L, Phosphorus Level 3.3, Magnesium Level 2.6H, Total Bilirubin 1.1H, Direct Bilirubin 0.2, Gamma Glutamyl Transpeptidase 22, Aspartate Amino Transf (AST/SGOT) 140H, Alanine Aminotransferase (ALT/SGPT) 137H, Alkaline Phosphatase 68, Ammonia 38H, Total Creatine Kinase 6497H, Troponin I 1.128H, C-Reactive Protein, Quantitative 16.8H , Pro-B-Type Natriuretic Peptide 788H, Total Protein 6.5, Albumin 2.4L, Globulin 4.1, Albumin/Globulin Ratio 0.6L, Triglycerides Level 241H, Cholesterol Level 82, LDL Cholesterol 29, HDL Cholesterol 14L, Cholesterol/HDL Ratio 5.9H, Lipase 311, Thyroid Stimulating Hormone (TSH) 1.391, Cortisol AM Sample 15.8 12/02/17 07:40: Arterial Blood pH 7.430, Arterial Blood Partial Pressure CO2 24.1*L, Arterial Blood Partial Pressure O2 111.3H, Arterial Blood HCO3 15.6*L, Arterial Blood Oxygen Saturation 97.0, Arterial Blood Base Excess -7.2L, Ebenezer Test Positive 12/02/17 09:15: Lactic Acid Level 2.50H 12/02/17 15:00: Random Vancomycin Level < 2.0 12/02/17 16:30: Sodium Level 176*H, Potassium Level 2.8L, Chloride Level 141H, Carbon Dioxide Level 20L, Anion Gap 16H, Blood Urea Nitrogen 107H, Creatinine 3.1H, Estimat Glomerular Filtration Rate , Glucose Level 202#H, Calcium Level 7.2L Height (Feet): 5 Height (Inches): 5.00 Weight (Pounds): 143 General Appearance: lethargic, confused Abdomen: soft Trish Matias MD Dec 02, 2017 21:23
--- NOTE | 2017-12-02 21:30 | Consultation ---
DATE OF CONSULTATION: 12/02/2017 ENDOCRINOLOGY CONSULTATION CONSULTING PHYSICIAN: Stefan Leon M.D. REFERRING PHYSICIAN: Trish Matias M.D. REASON FOR CONSULTATION: Diabetes management. HISTORY OF PRESENT ILLNESS: It is important to note that the patient is critically ill, intubated in the ICU, and he is not able to provide any meaningful history. This is an 87-year-old male who resides in a shelter facility. The patient was brought to the emergency department with alteration in the sodium, with low blood pressure, was found to be septic, in respiratory distress, intubated and admitted to the ICU. Glucose is elevated and endocrinology was consulted. PAST MEDICAL HISTORY: 1. Organic brain syndrome. 2. Diabetes. 3. Dementia. 4. BPH. 5. Hypertension. 6. Status post PEG. PAST SURGICAL HISTORY: PEG placement. ALLERGIES: Allergic to terazosin. FAMILY HISTORY: Unobtainable. SOCIAL HISTORY: He comes from [facility]. REVIEW OF SYSTEMS: Unobtainable. MEDICATIONS: Reviewed and reconciled. PHYSICAL EXAMINATION: VITAL SIGNS: Blood pressure is 90/49, respiratory rate 29 and pulse of 75. HEENT: Pupils are equal and reactive to light. Sclerae anicteric. Orally intubated. NECK: No JVD. HEART: Tachy. LUNGS: Decreased breath sounds and with crackles. ABDOMEN: Positive bowel sounds. EXTREMITIES: Positive for edema. LABORATORY VALUES: Sodium 178, potassium 3.9, chloride 141, bicarbonate 20, BUN 105, creatinine 3.3, glucose 486, A1c of 6.7. Lactic acid 6.7. CK of 926. Troponin 0.3. Triglycerides 241, LDL 49, HDL 35. Cortisol level is pending. WBC of 16.4, hemoglobin 10, hematocrit 32, platelets of 142. DIAGNOSES: 1. Sepsis. 2. Dysphagia. 3. Renal failure. 4. Diabetes, out of control. 5. Lactic acidosis. 6. Severe hypernatremia. PLAN: 1. Hypernatremia, managed by the assisted sales representative. The patient has remained intubated. 2. Potassium was quite low and has been replaced. Once the patient's potassium was repleted 3. I will start the patient on insulin drip to help diabetes control. potassium will be repeated in 4 hours. I will follow the patient during the hospital stay. Thank you, Dr. Matias, for the courtesy of this consultation. Stefan Leon M.D. DR: GREGORY JOB#: [id number] CC: CASSANDRA
[2017-12-03] VITALS (24 sets, daily range): BP systolic 87–164; BP diastolic 41–122
[2017-12-03] MEDS: NovoLOG Insulin Flexpen SUBQ SCH ×6 (01:00→20:14)
[2017-12-03] MEDS: 1/2NS w/KCl 20mEq 1000ml 1,000 ML IV SCH (04:02)
[2017-12-03 05:10] LABS: HEMATOCRIT 30.6 % (42.0-52.0); MEAN CORPUSCULAR VOLUME 83 FL (80-99); PLATELET COUNT 114 K/UL (150-450); RED CELL DISTRIBUTION WIDTH 15.7 % (11.6-14.8); WHITE BLOOD COUNT 17.8 K/UL (4.8-10.8)
[2017-12-03 05:23] LABS: INR 1.2 (0.9-1.1)
--- NOTE | 2017-12-03 05:30 | Consultation ---
DATE OF CONSULTATION: 12/01/2017 CARDIOLOGY CONSULTATION CONSULTING PHYSICIAN: Luke Estrada M.D. REFERRING PHYSICIAN: Trish Matias M.D. REASON FOR CONSULTATION: Management of hypotension. HISTORY OF PRESENT ILLNESS: The patient is a very unfortunate 87-year-old gentleman, who is a resident of a nursing facility and was sent in for alteration of serum sodium. According to BLS who brought in to this facility, the blood pressure was very low and oximetry was in fact low as well. He was unresponsive. The patient on arrival to the emergency department had blood pressure of 85/55 mmHg and heart rate of 122. Initial evaluation in the emergency department revealed leukocytosis with white blood cell of 15.3 and severe hypernatremia with serum sodium level of 189 as well as BUN and creatinine of 99 and 3.3 respectively. His serum glucose level was 363 mg/dL as well. The patient's troponin I level was also elevated at 0.364. Cardiology consultation was made at the request of Dr. Matias to manage possible septic shock as well as elevated troponin I level, possibility of acute myocardial infarction. The patient was admitted to intensive care unit of [facility]. PAST MEDICAL HISTORY: Includes history of hypertension, history of dementia, history of dysphagia, status post PEG placement, and history of paraplegia. PAST SURGICAL HISTORY: PEG placement. REVIEW OF SYSTEMS: The patient is currently intubated. Twelve-system review cannot be done. ALLERGIES: To terazosin. FAMILY HISTORY: Currently, the record shows no family history of coronary artery disease or arrhythmogenic . MEDICATIONS: List of medications at the nursing facility includes acetaminophen 650 mg per PEG q.4 hours p.r.n. pain, Norvasc 5 mg G-tube daily, aspirin 81 mg G-tube daily, Lipitor 10 mg G-tube nightly, Dulcolax 10 mg rectal as needed, Colace 100 mg G-tube daily, donepezil 10 mg G-tube daily, milk of magnesia 30 mL G-tube nightly, Fleet Enema 133 mL rectal, senna 8.6 mg G-tube daily, Senokot 17.2 mg G-tube q.p.m. for constipation, and tamsulosin 0.4 mg G-tube daily. PHYSICAL EXAMINATION: VITAL SIGNS: Blood pressure at the time of arrival to the hospital was 85/55, respirations of 30, pulse of 122, temperature 98.1 degrees Fahrenheit, and O2 saturation 90% on nasal cannula. GENERAL: The patient is a very unfortunate 87-year-old gentleman, seen in Cardiology consultation, currently intubated, chronically ill. HEENT: Atraumatic and normocephalic. Anicteric. Pupils are equal, round, and reactive to light and accommodation. Dry mucosal membranes. NECK: JVP less than 5 cm. No carotid bruit. Carotid upstrokes 2+ bilaterally. CARDIOVASCULAR: Normal S1, S2. Tachycardic. Cannot appreciate any murmurs, gallops, or rubs. LUNGS: Diminished breath sounds in both lungs. ABDOMEN: Soft, nontender, and nondistended. Diminished bowel sounds. Presence of G-tube. No hepatosplenomegaly. EXTREMITIES: Contraction and pressure protection. No edema, clubbing, or cyanosis. LABORATORY AND DIAGNOSTIC DATA: WBC was 15.3, hemoglobin 15.1, hematocrit 48.7, and platelet count is 241,000. Sodium is 189, potassium is 3.5, chloride 146, bicarbonate is 24, BUN of 99, creatinine 3.3, glucose is 363. Lactic acid is 6.7, calcium is 9.1, magnesium 3.2, AST 181, ALT 197. Troponin I was 0.364, CK was 6122, proBNP was 799, lipase was 712. Chest x-ray shows no acute cardiopulmonary disease with ectatic aorta and presence of an ET tube with satisfactory position. Sinus tachycardia at [address] and T-wave abnormalities, but no distinct evidence of acute ischemia. ASSESSMENT AND PLAN: The patient is a very unfortunate 87-year-old gentleman who is seen in Cardiology consultation at the request of Dr. Matias. 1. Septic shock, leukocytosis. The patient received IV antibiotics. We elected to also consider hypovolemic shock due to severe free-water deficit. The corrected serum sodium is even above 190. The patient is ordered to be started on hypotonic solution of half-normal saline, however, for hypotension, we will like to mix it with some normal saline to increase mean arterial pressure which should be above 65 mmHg. Electrolytes need to be corrected. Hyperglycemia requires insulin drip in this very sick patient. Followup with endocrine and flap curer is recommended. 2. Sinus tachycardia, most likely secondary to severe intravascular volume depletion, currently on appropriate fluid administration. 3. Slight elevation of troponin I level could be of a variety of etiologies in this patient, although [id number] myocardial infarction type 2 due to demand ischemia should be considered. I agree with continuation of aspirin at this time. Ultimately, the patient will benefit from statin given being diabetic. Total amount of time spent in the [facility] Intensive Care Unit including review of the old records, with the plan of care and discussing it with the nursing staff as well as the primary care physician was 50 minutes. I would like to thank, Dr. Matias, for the courtesy of this consultation. Luke Estrada M.D. DR: Aretha JOB#: [id number] CC:
[2017-12-03 05:43] LABS: % IRON SATURATION 17 % (15-50); IRON 20 ug/dL (50-175); TOTAL IRON BINDING CAPACITY 118 ug/dL (250-450)
[2017-12-03 05:50] LABS: ALANINE AMINOTRANSFERASE 213 U/L (12-78); ALBUMIN 1.9 G/DL (3.4-5.0); ALBUMIN/GLOBULIN RATIO 0.5 (1.0-2.7); ALKALINE PHOSPHATASE 75 U/L (46-116); ANION GAP 17 mmol/L (5-15); ASPARTATE AMINO TRANSFERASE 224 U/L (15-37); BILIRUBIN,TOTAL 0.6 MG/DL (0.2-1.0); BLOOD UREA NITROGEN 99 mg/dL (7-18); CALCIUM 7.1 MG/DL (8.5-10.1); CARBON DIOXIDE 17 MMOL/L (21-32); CHLORIDE 141 MMOL/L (98-107); CREATINE KINASE 7672 U/L (26-308); CREATININE 3.1 MG/DL (0.55-1.30); FERRITIN 511 NG/ML (8-388); GAMMA GLUTAMYL TRANSPEPTIDASE 18 U/L (5-85); PHOSPHORUS 2.4 MG/DL (2.5-4.9); POTASSIUM 3.3 MMOL/L (3.5-5.1)
[2017-12-03 05:59] LABS: SODIUM 174 MMOL/L (136-145)
--- NOTE | 2017-12-03 08:22 | General Progress Note ---
Assessment/Plan Problem List: (1) Hypernatremia ICD Codes: E87.0 - Hyperosmolality and hypernatremia SNOMED: 13394444 (2) DM (3) PEG (percutaneous endoscopic gastrostomy) status ICD Codes: Z93.1 - Gastrostomy status SNOMED: 465898607, 697689708 (4) UTI (urinary tract infection) ICD Codes: N39.0 - Urinary tract infection, site not specified SNOMED: 96131671 Qualifiers: Qualified Codes: N39.0 - Urinary tract infection, site not specified (5) Respiratory failure ICD Codes: J96.90 - Respiratory failure, unspecified, unspecified whether with hypoxia or hypercapnia SNOMED: 823211300 Qualifiers: Qualified Codes: J96.00 - Acute respiratory failure, unspecified whether with hypoxia or hypercapnia (6) Renal failure (ARF), acute on chronic ICD Codes: N17.9 - Acute kidney failure, unspecified; N18.9 - Chronic kidney disease, unspecified SNOMED: 870731301 Qualifiers: Qualified Codes: N17.9 - Acute kidney failure, unspecified; N18.3 - Chronic kidney disease, stage 3 (moderate) Assessment/Plan anemia work up on GTF ,renal 30 cc add imodium prn repeat amylase and lipase KUB reviewed fu nephrology Subjective ROS Limited/Unobtainable: No Allergies: Coded Allergies: TERAZOSIN (Verified Allergy, Unknown, 10/27/17) Objective Last 24 Hour Vital Signs Date Time Temp Pulse Resp B/P (MAP) Pulse Ox O2 Delivery O2 Flow Rate FiO2 12/03/17 08:00 45 12/03/17 07:00 66 32 99/45 (63) 100 12/03/17 06:48 71 27 45 12/03/17 06:00 71 24 91/41 (58) 100 12/03/17 05:10 74 26 45 12/03/17 05:00 69 25 92/46 (61) 100 12/03/17 04:00 Mechanical Ventilator 12/03/17 04:00 72 12/03/17 04:00 45 12/03/17 04:00 98.4 74 28 87/42 (57) 100 12/03/17 03:30 75 24 45 12/03/17 03:00 73 26 87/46 (60) 100 12/03/17 02:00 70 26 103/50 (67) 100 12/03/17 01:08 73 24 45 12/03/17 01:00 72 28 100/51 (67) 100 12/03/17 00:00 45 12/03/17 00:00 Mechanical Ventilator 12/03/17 00:00 98.6 73 25 90/48 (62) 100 12/03/17 00:00 77 12/02/17 23:23 72 25 45 12/02/17 23:00 77 35 104/51 (68) 100 12/02/17 22:00 76 26 100/50 (67) 100 12/02/17 21:21 74 29 45 12/02/17 21:00 74 25 97/54 (68) 100 12/02/17 20:00 74 12/02/17 20:00 98.2 76 27 93/47 (62) 100 12/02/17 20:00 Mechanical Ventilator 12/02/17 20:00 45 12/02/17 19:00 75 25 97/48 (64) 100 12/02/17 18:49 71 26 45 12/02/17 18:00 74 27 102/47 (65) 100 12/02/17 17:00 75 28 85/44 (58) 100 12/02/17 16:55 73 28 45 12/02/17 16:00 Mechanical Ventilator 12/02/17 16:00 72 32 82/42 (55) 100 12/02/17 16:00 72 12/02/17 16:00 45 12/02/17 15:00 71 31 85/41 (56) 100 12/02/17 14:42 72 33 45 12/02/17 14:00 71 29 92/45 (61) 100 12/02/17 13:00 70 25 96/52 (67) 100 12/02/17 12:51 69 24 45 12/02/17 12:00 98.0 66 30 86/47 (60) 100 12/02/17 12:00 45 12/02/17 12:00 64 12/02/17 12:00 Mechanical Ventilator 12/02/17 11:00 66 25 89/54 (66) 100 12/02/17 10:43 68 24 45 12/02/17 10:00 69 24 103/52 (69) 100 12/02/17 09:37 101/53 10/27/18 09:00 70 22 98/49 (65) 100 12/02/17 08:51 70 26 45 Intake and Output 12/02/17 12/03/17 19:00 07:00 Intake Total 556.875 ml 1470.0 ml Output Total 410 ml 420 ml Balance 146.875 ml 1050.0 ml IV Total 316.875 ml 1110.0 ml Tube Feeding 240 ml 360 ml Output Urine Total 410 ml 420 ml # Bowel Movements 5 1 Laboratory Tests 12/02/17 09:15: Lactic Acid Level 2.50H 12/02/17 15:00: Random Vancomycin Level < 2.0 12/02/17 16:30: Sodium Level 176*H, Potassium Level 2.8L, Chloride Level 141H, Carbon Dioxide Level 20L, Anion Gap 16H, Blood Urea Nitrogen 107H, Creatinine 3.1H, Estimat Glomerular Filtration Rate , Glucose Level 202#H, Calcium Level 7.2L 12/02/17 20:45: Stool Occult Blood [Pending] 12/03/17 04:00: White Blood Count 17.8H, Red Blood Count 3.70L, Hemoglobin 10.0L, Hematocrit 30.6L, Mean Corpuscular Volume 83, Mean Corpuscular Hemoglobin 27.0, Mean Corpuscular Hemoglobin Concent 32.7, Red Cell Distribution Width 15.7H, Platelet Count 114L, Mean Platelet Volume 8.4, Neutrophils (%) (Auto) , Lymphocytes (%) (Auto) , Monocytes (%) (Auto) , Eosinophils (%) (Auto) , Basophils (%) (Auto) , Neutrophils % (Manual) [Pending], Lymphocytes % (Manual) [Pending], Platelet Estimate [Pending], Platelet Morphology [Pending], Sickle Cell Screen [Pending], Prothrombin Time 12.2H, Prothromb Time International Ratio 1.2H, Sodium Level 174*H, Potassium Level 3.3L, Chloride Level 141H, Carbon Dioxide Level 17L, Anion Gap 17H, Blood Urea Nitrogen 99H, Creatinine 3.1H, Estimat Glomerular Filtration Rate , Glucose Level 164H, Lactic Acid Level 2.60H, Uric Acid 7.7H, Calcium Level 7.1L, Phosphorus Level 2.4L, Magnesium Level 2.5H, Iron Level 20L, Total Iron Binding Capacity 118L, Percent Iron Saturation 17, Unsaturated Iron Binding 98L, Ferritin 511H, Total Bilirubin 0.6, Gamma Glutamyl Transpeptidase 18, Aspartate Amino Transf (AST/ SGOT) 224H, Alanine Aminotransferase (ALT/SGPT) 213H, Alkaline Phosphatase 75, Lactate Dehydrogenase 917H, Total Creatine Kinase 7672H, Troponin I 0.490H, Pro- B-Type Natriuretic Peptide 468H, Total Protein 6.1L, Albumin 1.9L, Globulin 4.2 , Albumin/Globulin Ratio 0.5L, Lipase 740H, Vitamin B12 Level 1181H, Folate 26.7 , Random Vancomycin Level 2.8, Hepatitis A IgM Antibody [Pending], Hepatitis B Surface Antigen [Pending], Hepatitis B Core IgM Antibody [Pending], Hepatitis C Antibody [Pending], HIV (1&2) Antibody Rapid Negative 12/03/17 07:30: Lactic Acid Level 1.90 Height (Feet): 5 Height (Inches): 5.00 Weight (Pounds): 145 General Appearance: lethargic EENT: normal ENT inspection Neck: supple Cardiovascular: normal rate Respiratory/Chest: decreased breath sounds Abdomen: soft, hypoactive bowel sounds, distended Extremities: non-tender Juan Coronel MD Dec 03, 2017 08:22
[2017-12-03] MEDS: Nitroglycerin Patch 0.4mg TDERMAL SCH (09:00)
[2017-12-03] MEDS: Pantoprazole Inj IVP SCH ×2 (09:41→20:13)
[2017-12-03] MEDS: Piperacillin/Tazobactam 3.375 GM in NS 110 ML IVPB SCH ×2 (09:42→21:02)
[2017-12-03] MEDS: Sucralfate 1gm tab GT SCH ×4 (09:44→20:13)
[2017-12-03] MEDS: Sennosides 8.6mg tab GT SCH (09:45)
[2017-12-03] MEDS: Aspirin Baby 81mg NG SCH (09:45)
[2017-12-03] MEDS: Heparin 5000 units/ml inj SUBQ SCH ×2 (10:26→20:16)
[2017-12-03] MEDS ORDERED: 1/2 NS 1000ml IV ONE (10:47)
[2017-12-03] MEDS ORDERED: NS 275ml ONE (10:47)
[2017-12-03] MEDS ORDERED: NS 500ML ONE (10:47)
[2017-12-03] MEDS ORDERED: Tubing IV Secondary IV ONE ×2 (10:47)
[2017-12-03] MEDS ORDERED: Sterile Water Irrig 1000ml IRRIG ONE (10:47)
--- NOTE | 2017-12-03 11:59 | General Progress Note ---
Assessment/Plan Problem List: (1) Renal failure (ARF), acute on chronic ICD Codes: N17.9 - Acute kidney failure, unspecified; N18.9 - Chronic kidney disease, unspecified SNOMED: 519284285 Qualifiers: Qualified Codes: N17.9 - Acute kidney failure, unspecified; N18.3 - Chronic kidney disease, stage 3 (moderate) (2) NSTEMI (non-ST elevated myocardial infarction) ICD Codes: I21.4 - Non-ST elevation (NSTEMI) myocardial infarction SNOMED: 424032991 (3) Hypernatremia ICD Codes: E87.0 - Hyperosmolality and hypernatremia SNOMED: 09415249 (4) DM (5) Rhabdomyolysis ICD Codes: M62.82 - Rhabdomyolysis SNOMED: 790398881 (6) Hypoxemia ICD Codes: R09.02 - Hypoxemia SNOMED: 381192562 (7) Severe sepsis ICD Codes: A41.9 - Sepsis, unspecified organism; R65.20 - Severe sepsis without septic shock SNOMED: 00574879 Assessment/Plan no longer on insulin drip - I started and DC'ed yesterday glucose values are stable on NISS every 4 hours - continue same for now discussed with RN Subjective ROS Limited/Unobtainable: Yes Allergies: Coded Allergies: TERAZOSIN (Verified Allergy, Unknown, 10/27/17) Subjective intubated in ICU bedside ultrasound in progress TF tolerated Objective Last 24 Hour Vital Signs Date Time Temp Pulse Resp B/P (MAP) Pulse Ox O2 Delivery O2 Flow Rate FiO2 12/03/17 11:07 77 30 45 12/03/17 09:00 92/53 12/03/17 08:30 69 30 45 12/03/17 08:00 45 12/03/17 07:00 66 32 99/45 (63) 100 12/03/17 06:48 71 27 45 12/03/17 06:00 71 24 91/41 (58) 100 12/03/17 05:10 74 26 45 12/03/17 05:00 69 25 92/46 (61) 100 12/03/17 04:00 Mechanical Ventilator 12/03/17 04:00 72 12/03/17 04:00 45 12/03/17 04:00 98.4 74 28 87/42 (57) 100 12/03/17 03:30 75 24 45 12/03/17 03:00 73 26 87/46 (60) 100 12/03/17 02:00 70 26 103/50 (67) 100 12/03/17 01:08 73 24 45 12/03/17 01:00 72 28 100/51 (67) 100 12/03/17 00:00 45 12/03/17 00:00 Mechanical Ventilator 12/03/17 00:00 98.6 73 25 90/48 (62) 100 12/03/17 00:00 77 12/02/17 23:23 72 25 45 12/02/17 23:00 77 35 104/51 (68) 100 12/02/17 22:00 76 26 100/50 (67) 100 12/02/17 21:21 74 29 45 12/02/17 21:00 74 25 97/54 (68) 100 12/02/17 20:00 74 12/02/17 20:00 98.2 76 27 93/47 (62) 100 12/02/17 20:00 Mechanical Ventilator 12/02/17 20:00 45 12/02/17 19:00 75 25 97/48 (64) 100 12/02/17 18:49 71 26 45 12/02/17 18:00 74 27 102/47 (65) 100 12/02/17 17:00 75 28 85/44 (58) 100 12/02/17 16:55 73 28 45 12/02/17 16:00 Mechanical Ventilator 12/02/17 16:00 72 32 82/42 (55) 100 12/02/17 16:00 72 12/02/17 16:00 45 12/02/17 15:00 71 31 85/41 (56) 100 12/02/17 14:42 72 33 45 12/02/17 14:00 71 29 92/45 (61) 100 12/02/17 13:00 70 25 96/52 (67) 100 12/02/17 12:51 69 24 45 12/02/17 12:00 98.0 66 30 86/47 (60) 100 12/02/17 12:00 45 12/02/17 12:00 64 12/02/17 12:00 Mechanical Ventilator Intake and Output 12/02/17 12/03/17 18:59 06:59 Intake Total 326.875 ml 1670.0 ml Output Total 420 ml 410 ml Balance -93.125 ml 1260.0 ml IV Total 116.875 ml 1310.0 ml Tube Feeding 210 ml 360 ml Output Urine Total 420 ml 410 ml # Bowel Movements 5 1 Laboratory Tests 12/02/17 15:00: Random Vancomycin Level < 2.0 12/02/17 16:30: Sodium Level 176*H, Potassium Level 2.8L, Chloride Level 141H, Carbon Dioxide Level 20L, Anion Gap 16H, Blood Urea Nitrogen 107H, Creatinine 3.1H, Estimat Glomerular Filtration Rate , Glucose Level 202#H, Calcium Level 7.2L 12/02/17 20:45: Stool Occult Blood Positive 12/03/17 04:00: Random Vancomycin Level 2.8, Sodium Level 174*H, Potassium Level 3.3L, Chloride Level 141H, Carbon Dioxide Level 17L, Anion Gap 17H, Blood Urea Nitrogen 99H, Creatinine 3.1H, Estimat Glomerular Filtration Rate , Glucose Level 164H, Calcium Level 7.1L, White Blood Count 17.8H, Red Blood Count 3.70L, Hemoglobin 10.0L, Hematocrit 30.6L, Mean Corpuscular Volume 83, Mean Corpuscular Hemoglobin 27.0, Mean Corpuscular Hemoglobin Concent 32.7, Red Cell Distribution Width 15.7H, Platelet Count 114L, Mean Platelet Volume 8.4, Neutrophils (%) (Auto) , Lymphocytes (%) (Auto) , Monocytes (%) (Auto) , Eosinophils (%) (Auto) , Basophils (%) (Auto) , Differential Total Cells Counted 100, Neutrophils % (Manual) 66, Lymphocytes % (Manual) 7L, Monocytes % ( Manual) 3, Eosinophils % (Manual) 1, Basophils % (Manual) 0, Band Neutrophils 23H, Platelet Estimate DecreasedL, Platelet Morphology Normal, Anisocytosis 1+, Sickle Cell Screen [Pending], Prothrombin Time 12.2H, Prothromb Time International Ratio 1.2H, Lactic Acid Level 2.60H, Uric Acid 7.7H, Phosphorus Level 2.4L, Magnesium Level 2.5H, Iron Level 20L, Total Iron Binding Capacity 118L, Percent Iron Saturation 17, Unsaturated Iron Binding 98L, Ferritin 511H, Total Bilirubin 0.6, Gamma Glutamyl Transpeptidase 18, Aspartate Amino Transf ( AST/SGOT) 224H, Alanine Aminotransferase (ALT/SGPT) 213H, Alkaline Phosphatase 75, Lactate Dehydrogenase 917H, Total Creatine Kinase 7672H, Troponin I 0.490H, Pro-B-Type Natriuretic Peptide 468H, Total Protein 6.1L, Albumin 1.9L, Globulin 4.2, Albumin/Globulin Ratio 0.5L, Lipase 740H, Vitamin B12 Level 1181H, Folate 26.7, Hepatitis A IgM Antibody [Pending], Hepatitis B Surface Antigen [Pending] , Hepatitis B Core IgM Antibody [Pending], Hepatitis C Antibody [Pending], HIV ( 1&2) Antibody Rapid Negative 12/03/17 07:30: Lactic Acid Level 1.90 Height (Feet): 5 Height (Inches): 5.00 Weight (Pounds): 145 General Appearance: no apparent distress EENT: other - ETT Neck: normal alignment Cardiovascular: normal rate Respiratory/Chest: decreased breath sounds Abdomen: other - PEG Edema: no edema noted Arm (L), no edema noted Arm (R), no edema noted Leg (L), no edema noted Leg (R), no edema noted Pedal (L), no edema noted Pedal (R), no edema noted Generalized Objective Current Medications Medications (Trade) Dose Ordered Sig/Ruthie Route PRN Reason Start Time Stop Time Status Last Admin Dose Admin Aspirin (ASA) 162 mg DAILY NG 12/02/17 09:00 01/01/18 08:59 12/03/17 09:45 Chlorhexidine Gluconate (Rachael-Hex 2%) 1 applic DAILY@1999 TOPIC 12/02/17 20:00 01/01/18 19:59 12/02/17 20:41 Dextrose (Dextrose 50%) 25 ml Q30M PRN IV Hypoglycemia 12/02/17 17:30 01/01/18 17:29 Dextrose (Dextrose 50%) 50 ml Q30M PRN IV Hypoglycemia 12/02/17 17:30 01/01/18 17:29 Heparin Sodium (Porcine) (Heparin 5000 units/ml) 5,000 units EVERY 12 HOURS SUBQ 12/01/17 21:00 12/31/17 20:59 12/03/17 10:26 Insulin Aspart (NovoLOG) Q4HR SUBQ 12/02/17 21:00 01/01/18 20:59 12/03/17 05:02 Loperamide HCl (Imodium) 2 mg Q6H PRN NG Diarrhea 12/03/17 08:30 01/02/18 08:29 Nitroglycerin (Ntg) 1 patch Q24H TDERMAL 12/02/17 09:00 01/01/18 08:59 12/02/17 09:37 Pantoprazole (Protonix) 40 mg EVERY 12 HOURS IVP 12/01/17 21:00 12/31/17 20:59 12/03/17 09:41 Piperacillin Sod/ Tazobactam Sod 3.375 gm/Sodium Chloride 110 ml @ 27.5 mls/hr Q12HR IVPB 12/01/17 18:30 12/08/17 18:29 12/03/17 09:42 Sennosides (Senokot) 2 tab DAILY GT 12/02/17 09:00 01/01/18 08:59 12/03/17 09:45 Sodium 1,000 ml @ 100 mls/hr Q10H IV 12/02/17 18:00 01/01/18 17:59 12/03/17 04:02 Sucralfate (Carafate) 1 gm FOUR TIMES A DAY GT 12/01/17 18:00 12/31/17 17:59 12/03/17 09:44 Item Value Date Time Bedside Blood Glucose 100 mg/dl 12/03/17 0900 Bedside Blood Glucose 168 mg/dl H 12/03/17 0502 Bedside Blood Glucose 178 mg/dl H 12/03/17 0100 Bedside Blood Glucose 87 mg/dl 12/02/17 2042 Bedside Blood Glucose 197 mg/dl H 12/02/17 1645 Bedside Blood Glucose 379 mg/dl H 12/02/17 1353 Stefan Leon MD Dec 03, 2017 11:59
--- NOTE | 2017-12-03 13:34 | Nephrology Progress Note ---
Assessment/Plan Problem List: (1) Renal failure (ARF), acute on chronic (2) Respiratory failure (3) Hypernatremia (4) Rhabdomyolysis (5) DM Assessment Acute respiratory failure- Acute Renal failure- Severe Dehydration PEG Sepsis / UTI / Pneumonia Hypotension- Septic Shock High Lipase Rhabdo- High CPK Elevated Troponin Dementia Plan One dose vanco- check am levels midodrine- monitor CK IV to D5w Vent- Respiratory support Gastric support Antibiotics Monitor renal parameters Poor prognosis Per orders Subjective ROS Limited/Unobtainable: Yes Objective Objective Last 24 Hour Vital Signs Date Time Temp Pulse Resp B/P (MAP) Pulse Ox O2 Delivery O2 Flow Rate FiO2 12/03/17 12:54 71 27 45 12/03/17 12:00 Mechanical Ventilator 12/03/17 12:00 71 26 94/55 (68) 100 12/03/17 12:00 45 12/03/17 11:07 77 30 45 12/03/17 11:00 71 26 95/57 (70) 100 12/03/17 10:00 70 25 97/68 (78) 100 12/03/17 09:00 68 25 88/44 (59) 100 12/03/17 09:00 92/53 12/03/17 08:30 69 30 45 12/03/17 08:00 97.8 68 27 164/122 (136) 100 12/03/17 08:00 Mechanical Ventilator 12/03/17 08:00 45 12/03/17 07:00 66 32 99/45 (63) 100 12/03/17 06:48 71 27 45 12/03/17 06:00 71 24 91/41 (58) 100 12/03/17 05:10 74 26 45 12/03/17 05:00 69 25 92/46 (61) 100 12/03/17 04:00 Mechanical Ventilator 12/03/17 04:00 72 12/03/17 04:00 45 12/03/17 04:00 98.4 74 28 87/42 (57) 100 12/03/17 03:30 75 24 45 12/03/17 03:00 73 26 87/46 (60) 100 12/03/17 02:00 70 26 103/50 (67) 100 12/03/17 01:08 73 24 45 12/03/17 01:00 72 28 100/51 (67) 100 12/03/17 00:00 45 12/03/17 00:00 Mechanical Ventilator 12/03/17 00:00 98.6 73 25 90/48 (62) 100 12/03/17 00:00 77 12/02/17 23:23 72 25 45 12/02/17 23:00 77 35 104/51 (68) 100 12/02/17 22:00 76 26 100/50 (67) 100 12/02/17 21:21 74 29 45 12/02/17 21:00 74 25 97/54 (68) 100 12/02/17 20:00 74 12/02/17 20:00 98.2 76 27 93/47 (62) 100 12/02/17 20:00 Mechanical Ventilator 12/02/17 20:00 45 12/02/17 19:00 75 25 97/48 (64) 100 12/02/17 18:49 71 26 45 12/02/17 18:00 74 27 102/47 (65) 100 12/02/17 17:00 75 28 85/44 (58) 100 12/02/17 16:55 73 28 45 12/02/17 16:00 Mechanical Ventilator 12/02/17 16:00 72 32 82/42 (55) 100 12/02/17 16:00 72 12/02/17 16:00 45 12/02/17 15:00 71 31 85/41 (56) 100 12/02/17 14:42 72 33 45 12/02/17 14:00 71 29 92/45 (61) 100 Intake and Output 12/02/17 12/03/17 19:00 07:00 Intake Total 556.875 ml 1470.0 ml Output Total 410 ml 420 ml Balance 146.875 ml 1050.0 ml IV Total 316.875 ml 1110.0 ml Tube Feeding 240 ml 360 ml Output Urine Total 410 ml 420 ml # Bowel Movements 5 1 Laboratory Tests 12/02/17 15:00: Random Vancomycin Level < 2.0 12/02/17 16:30: Sodium Level 176*H, Potassium Level 2.8L, Chloride Level 141H, Carbon Dioxide Level 20L, Anion Gap 16H, Blood Urea Nitrogen 107H, Creatinine 3.1H, Estimat Glomerular Filtration Rate , Glucose Level 202#H, Calcium Level 7.2L 12/02/17 20:45: Stool Occult Blood Positive 12/03/17 04:00: Random Vancomycin Level 2.8, Sodium Level 174*H, Potassium Level 3.3L, Chloride Level 141H, Carbon Dioxide Level 17L, Anion Gap 17H, Blood Urea Nitrogen 99H, Creatinine 3.1H, Estimat Glomerular Filtration Rate , Glucose Level 164H, Calcium Level 7.1L, White Blood Count 17.8H, Red Blood Count 3.70L, Hemoglobin 10.0L, Hematocrit 30.6L, Mean Corpuscular Volume 83, Mean Corpuscular Hemoglobin 27.0, Mean Corpuscular Hemoglobin Concent 32.7, Red Cell Distribution Width 15.7H, Platelet Count 114L, Mean Platelet Volume 8.4, Neutrophils (%) (Auto) , Lymphocytes (%) (Auto) , Monocytes (%) (Auto) , Eosinophils (%) (Auto) , Basophils (%) (Auto) , Differential Total Cells Counted 100, Neutrophils % (Manual) 66, Lymphocytes % (Manual) 7L, Monocytes % ( Manual) 3, Eosinophils % (Manual) 1, Basophils % (Manual) 0, Band Neutrophils 23H, Platelet Estimate DecreasedL, Platelet Morphology Normal, Anisocytosis 1+, Sickle Cell Screen [Pending], Prothrombin Time 12.2H, Prothromb Time International Ratio 1.2H, Lactic Acid Level 2.60H, Uric Acid 7.7H, Phosphorus Level 2.4L, Magnesium Level 2.5H, Iron Level 20L, Total Iron Binding Capacity 118L, Percent Iron Saturation 17, Unsaturated Iron Binding 98L, Ferritin 511H, Total Bilirubin 0.6, Gamma Glutamyl Transpeptidase 18, Aspartate Amino Transf ( AST/SGOT) 224H, Alanine Aminotransferase (ALT/SGPT) 213H, Alkaline Phosphatase 75, Lactate Dehydrogenase 917H, Total Creatine Kinase 7672H, Troponin I 0.490H, Pro-B-Type Natriuretic Peptide 468H, Total Protein 6.1L, Albumin 1.9L, Globulin 4.2, Albumin/Globulin Ratio 0.5L, Lipase 740H, Vitamin B12 Level 1181H, Folate 26.7, Hepatitis A IgM Antibody [Pending], Hepatitis B Surface Antigen [Pending] , Hepatitis B Core IgM Antibody [Pending], Hepatitis C Antibody [Pending], HIV ( 1&2) Antibody Rapid Negative 12/03/17 07:30: Lactic Acid Level 1.90 12/03/17 13:22: C-Reactive Protein, Quantitative [Pending] Height (Feet): 5 Height (Inches): 5.00 Weight (Pounds): 145 General Appearance: no apparent distress Respiratory/Chest: decreased breath sounds Abdomen: soft Objective no other change Randolph Fernandes MD Dec 03, 2017 13:34
[2017-12-03] MEDS ORDERED: Vancomycin 1250mg/D5W 250ml 250 ML IVPB SCH (15:00)
--- NOTE | 2017-12-03 17:53 | Cardiology Progress Note ---
Assessment/Plan Assessment/Plan 1. Septic shock in combination with hypovolemic shock due to severe free-water deficit. Serum Na down to 175, continue hypotonic fluid. Continue Midodrine. 2. Sinus tachycardia, resolved, most likely secondary to severe intravascular volume depletion, currently on appropriate fluid administration. 3. Slight elevation of troponin I level could be of a variety of etiologies in this patient, although [id number] myocardial infarction type 2 due to demand ischemia should be considered. Continue ASA and statins. Objective Last 24 Hour Vital Signs Date Time Temp Pulse Resp B/P (MAP) Pulse Ox O2 Delivery O2 Flow Rate FiO2 12/03/17 17:50 35 12/03/17 17:40 35 12/03/17 17:19 78 35 40 12/03/17 16:00 Mechanical Ventilator 12/03/17 15:10 40 12/03/17 15:07 78 33 40 12/03/17 15:00 75 30 90/52 (65) 100 12/03/17 14:00 74 28 93/48 (63) 100 12/03/17 13:00 98.1 72 27 95/56 (69) 100 12/03/17 12:54 71 27 45 12/03/17 12:00 Mechanical Ventilator 12/03/17 12:00 71 12/03/17 12:00 71 26 94/55 (68) 100 12/03/17 12:00 45 12/03/17 11:07 77 30 45 12/03/17 11:00 71 26 95/57 (70) 100 12/03/17 10:00 70 25 97/68 (78) 100 12/03/17 09:00 68 25 88/44 (59) 100 12/03/17 09:00 92/53 12/03/17 08:30 69 30 45 12/03/17 08:00 97.8 68 27 164/122 (136) 100 12/03/17 08:00 Mechanical Ventilator 12/03/17 08:00 69 12/03/17 08:00 45 12/03/17 07:00 66 32 99/45 (63) 100 12/03/17 06:48 71 27 45 12/03/17 06:00 71 24 91/41 (58) 100 12/03/17 05:10 74 26 45 12/03/17 05:00 69 25 92/46 (61) 100 12/03/17 04:00 Mechanical Ventilator 12/03/17 04:00 72 12/03/17 04:00 45 12/03/17 04:00 98.4 74 28 87/42 (57) 100 12/03/17 03:30 75 24 45 12/03/17 03:00 73 26 87/46 (60) 100 12/03/17 02:00 70 26 103/50 (67) 100 12/03/17 01:08 73 24 45 12/03/17 01:00 72 28 100/51 (67) 100 12/03/17 00:00 45 12/03/17 00:00 Mechanical Ventilator 12/03/17 00:00 98.6 73 25 90/48 (62) 100 12/03/17 00:00 77 12/02/17 23:23 72 25 45 12/02/17 23:00 77 35 104/51 (68) 100 12/02/17 22:00 76 26 100/50 (67) 100 12/02/17 21:21 74 29 45 12/02/17 21:00 74 25 97/54 (68) 100 12/02/17 20:00 74 12/02/17 20:00 98.2 76 27 93/47 (62) 100 12/02/17 20:00 Mechanical Ventilator 12/02/17 20:00 45 12/02/17 19:00 75 25 97/48 (64) 100 12/02/17 18:49 71 26 45 12/02/17 18:00 74 27 102/47 (65) 100 Intake and Output 12/02/17 12/03/17 18:59 06:59 Intake Total 1174.875 ml 1670.0 ml Output Total 420 ml 410 ml Balance 754.875 ml 1260.0 ml IV Total 964.875 ml 1310.0 ml Tube Feeding 210 ml 360 ml Output Urine Total 420 ml 410 ml # Bowel Movements 5 1 Laboratory Tests Test 12/02/17 20:45 12/03/17 04:00 12/03/17 07:30 12/03/17 13:22 Stool Occult Blood Positive (NEGATIVE) White Blood Count 17.8 K/UL (4.8-10.8) H Red Blood Count 3.70 M/UL (4.70-6.10) L Hemoglobin 10.0 G/DL (14.2-18.0) L Hematocrit 30.6 % (42.0-52.0) L Mean Corpuscular Volume 83 FL (80-99) Mean Corpuscular Hemoglobin 27.0 PG (27.0-31.0) Mean Corpuscular Hemoglobin Concent 32.7 G/DL (32.0-36.0) Red Cell Distribution Width 15.7 % (11.6-14.8) H Platelet Count 114 K/UL (150-450) L Mean Platelet Volume 8.4 FL (6.5-10.1) Neutrophils (%) (Auto) % (45.0-75.0) Lymphocytes (%) (Auto) % (20.0-45.0) Monocytes (%) (Auto) % (1.0-10.0) Eosinophils (%) (Auto) % (0.0-3.0) Basophils (%) (Auto) % (0.0-2.0) Differential Total Cells Counted 100 Neutrophils % (Manual) 66 % (45-75) Lymphocytes % (Manual) 7 % (20-45) L Monocytes % (Manual) 3 % (1-10) Eosinophils % (Manual) 1 % (0-3) Basophils % (Manual) 0 % (0-2) Band Neutrophils 23 % (0-8) H Platelet Estimate Decreased L Platelet Morphology Normal Anisocytosis 1+ Sickle Cell Screen Pending Prothrombin Time 12.2 SEC (9.30-11.50) H Prothromb Time International Ratio 1.2 (0.9-1.1) H Sodium Level 174 MMOL/L (136-145) *H Potassium Level 3.3 MMOL/L (3.5-5.1) L Chloride Level 141 MMOL/L (98-107) H Carbon Dioxide Level 17 MMOL/L (21-32) L Anion Gap 17 mmol/L (5-15) H Blood Urea Nitrogen 99 mg/dL (7-18) H Creatinine 3.1 MG/DL (0.55-1.30) H Estimat Glomerular Filtration Rate mL/min (>60) Glucose Level 164 MG/DL (74-106) H Lactic Acid Level 2.60 mmol/L (0.4-2.0) H 1.90 mmol/L (0.66-2.22) Uric Acid 7.7 MG/DL (2.6-7.2) H Calcium Level 7.1 MG/DL (8.5-10.1) L Phosphorus Level 2.4 MG/DL (2.5-4.9) L Magnesium Level 2.5 MG/DL (1.8-2.4) H Iron Level 20 ug/dL (50-175) L Total Iron Binding Capacity 118 ug/dL (250-450) L Percent Iron Saturation 17 % (15-50) Unsaturated Iron Binding 98 ug/dL (112-346) L Ferritin 511 NG/ML (8-388) H Total Bilirubin 0.6 MG/DL (0.2-1.0) Gamma Glutamyl Transpeptidase 18 U/L (5-85) Aspartate Amino Transf (AST/SGOT) 224 U/L (15-37) H Alanine Aminotransferase (ALT/SGPT) 213 U/L (12-78) H Alkaline Phosphatase 75 U/L (46-116) Lactate Dehydrogenase 917 U/L (81-234) H Total Creatine Kinase 7672 U/L (26-308) H Troponin I 0.490 ng/mL (0.000-0.056) Pro-B-Type Natriuretic Peptide 468 pg/mL (0-125) H Total Protein 6.1 G/DL (6.4-8.2) L Albumin 1.9 G/DL (3.4-5.0) L Globulin 4.2 g/dL Albumin/Globulin Ratio 0.5 (1.0-2.7) L Lipase 740 U/L (73-393) H Vitamin B12 Level 1181 PG/ML (193-986) H Folate 26.7 NG/ML (8.6-58.9) Random Vancomycin Level 2.8 ug/mL Hepatitis A IgM Antibody Pending Hepatitis B Surface Antigen Pending Hepatitis B Core IgM Antibody Pending Hepatitis C Antibody Pending HIV (1&2) Antibody Rapid Negative (NEGATIVE) C-Reactive Protein, Quantitative > 70.0 mg/dL (0.00-0.90) H Microbiology Date/Time Source Procedure Growth Status 12/01/17 12:00 Blood Blood Culture - Preliminary NO GROWTH AFTER 24 HOURS Resulted 12/01/17 11:50 Blood Blood Culture - Preliminary NO GROWTH AFTER 24 HOURS Resulted 12/01/17 13:20 Nasal Nares MRSA Culture - Final NO METHICILLIN RESISTANT STAPH AUREUS... Complete 12/02/17 04:00 Stool Clostridium difficile Toxin Assay - Final Complete 12/01/17 14:05 Urine,Clean Catch Urine Culture - Final NO GROWTH AFTER 48 HOURS Complete 12/02/17 04:00 Anus Stool Culture - Preliminary NO GROWTH Resulted 12/01/17 13:20 Rectum VRE Culture - Final Enterococcus Faecalis - Vre Complete 12/01/17 13:20 Rectum - Final NO CARBAPENEM-RESISTANT ENTEROBACTERI... Complete Objective HEENT: Atraumatic and normocephalic. Anicteric. Pupils are equal, round, and reactive to light and accommodation. Dry mucosal membranes. NECK: JVP less than 5 cm. No carotid bruit. Carotid upstrokes 2+ bilaterally. CARDIOVASCULAR: Normal S1, S2. Tachycardic. Cannot appreciate any murmurs, gallops, or rubs. LUNGS: Diminished breath sounds in both lungs. ABDOMEN: Soft, nontender, and nondistended. Diminished bowel sounds. Presence of G-tube. No hepatosplenomegaly. EXTREMITIES: Contraction and pressure protection. No edema, clubbing, or cyanosis. Luke Estrada MD Dec 03, 2017 17:53
--- NOTE | 2017-12-03 18:11 | Pulmonolgy Critical Care Note ---
Critical Care - Asmt/Plan Assessment/Plan: Pulmonary Critical Care Note Patient is status post recent G-Tube placement, sent in from Longterm, noted to have elevated sodium level. Noted to have low blood pressure, hypoxia and altered mental status. Severe Hypernatremia, hypokalemia Stable on Vent ON Allergies: Coded Allergies: TERAZOSIN (Verified Allergy, Unknown, 10/27/17) Patient History Past Medical History: see triage record Social History Narrative SNF Reviewed Nursing Documentation: PMH: Agreed; PSxH: Agreed Nursing Documentation-PMH Hx Cardiac Problems: Yes Hx Hypertension: Yes Hx Cancer: No Hx Gastrointestinal Problems: Yes Hx Neurological Problems: Yes Hx Dementia: Yes Physical Exam Vital Signs Date Time Temp Pulse Resp B/P (MAP) Pulse Ox O2 Delivery O2 Flow Rate FiO2 12/01/17 11:33 98.1 122 30 85/55 90 Nasal Cannula 4.0 12/01/17 12:11 100 Procedures Central Line Central Line : Consent: Emergent Central Line Lumen: triple Maximal Sterile Barrier Tech: yes cap, yes mask, yes sterile gown, yes sterile gloves, yes large sterile sheet, yes hand hygiene, yes chlorhexidine prep Central Line Postion: femoral (R) Anesthesia: Lidocaine Complications: art stick once Attempts: Other - 2 Patient Tolerated: Well Complications: None Progress Ultrasound guidance. EBL = 8 ml Intubation Intubation : Consent: Emergent Intubation Method: orotracheal Tube Size (cm): 7.5 Medications: Other - none Breath Sounds after Intubation: equal Intubation Complications: no complications Post Intubation Xray: Yes Attempts: One Patient Tolerated: Well Complications: None Medical Decision Making Diagnostic Impression: Severe Hypernatremia/dehydration Severe sepsis, source unclear, possible Early Pneumonia vs GI source Recent G tube insertion H/o Dementia H/o Hypertension, currently hypotensive NSTEMI (non-ST elevated myocardial infarction) Hypoxic Respiratory Failure s/p Intubation Renal failure (ARF), acute on chronic Pancreatitis Elevated Glucose Plan: Admit to ICU Continue current AC settings:AC 16 500 P5 ABG Fentanyl gtt PRN IV hydration Insulin gtt Broad Spectrum Antibiotics SQ Heparin Protonix Monitor labs EKG was sinus tachycardia and nonspecific ST-T wave changes suggesting subendocardial injury. Chest x-ray postintubation no evidence of infiltrate ET tube is replacement. Based on the clinical exam and the purulent sputum this patient has pneumonia. Rhythm Strip Diag. Results Rhythm: no PVC's, no ectopy, other - ST Chest X-Ray Diagnostic Results Chest X-Ray Diagnostic Results : Chest X-Ray Ordered: Yes # of Views/Limited/Complete: 1 View Indication: Other Interpretation: no effusion, no pneumothorax, other - ET good placement CT Chest: No evidence of acute pulmonary embolus or other acute thoracic pathology. Mild cardiomegaly COPD changes Equivocal trace bilateral pleural effusions Pericardial effusion Mild bilateral gynecomastia Gastrostomy tube in good position. This was placed yesterday per the medical record, so adjacent extraluminal gas bubbles are an expected finding Case seen for 75 mins, 43 mins care co-ordination DW RN Booker Baumann MD Critical Care - Objective Last 24 Hour Vital Signs Date Time Temp Pulse Resp B/P (MAP) Pulse Ox O2 Delivery O2 Flow Rate FiO2 12/03/17 17:50 35 12/03/17 17:40 35 12/03/17 17:19 78 35 40 12/03/17 16:00 Mechanical Ventilator 12/03/17 15:10 40 12/03/17 15:07 78 33 40 12/03/17 15:00 75 30 90/52 (65) 100 12/03/17 14:00 74 28 93/48 (63) 100 12/03/17 13:00 98.1 72 27 95/56 (69) 100 12/03/17 12:54 71 27 45 12/03/17 12:00 Mechanical Ventilator 12/03/17 12:00 71 12/03/17 12:00 71 26 94/55 (68) 100 12/03/17 12:00 45 12/03/17 11:07 77 30 45 12/03/17 11:00 71 26 95/57 (70) 100 12/03/17 10:00 70 25 97/68 (78) 100 12/03/17 09:00 68 25 88/44 (59) 100 12/03/17 09:00 92/53 12/03/17 08:30 69 30 45 12/03/17 08:00 97.8 68 27 164/122 (136) 100 12/03/17 08:00 Mechanical Ventilator 12/03/17 08:00 69 12/03/17 08:00 45 12/03/17 07:00 66 32 99/45 (63) 100 12/03/17 06:48 71 27 45 12/03/17 06:00 71 24 91/41 (58) 100 12/03/17 05:10 74 26 45 12/03/17 05:00 69 25 92/46 (61) 100 12/03/17 04:00 Mechanical Ventilator 12/03/17 04:00 72 12/03/17 04:00 45 12/03/17 04:00 98.4 74 28 87/42 (57) 100 12/03/17 03:30 75 24 45 12/03/17 03:00 73 26 87/46 (60) 100 12/03/17 02:00 70 26 103/50 (67) 100 12/03/17 01:08 73 24 45 12/03/17 01:00 72 28 100/51 (67) 100 12/03/17 00:00 45 12/03/17 00:00 Mechanical Ventilator 12/03/17 00:00 98.6 73 25 90/48 (62) 100 12/03/17 00:00 77 12/02/17 23:23 72 25 45 12/02/17 23:00 77 35 104/51 (68) 100 12/02/17 22:00 76 26 100/50 (67) 100 12/02/17 21:21 74 29 45 12/02/17 21:00 74 25 97/54 (68) 100 12/02/17 20:00 74 12/02/17 20:00 98.2 76 27 93/47 (62) 100 12/02/17 20:00 Mechanical Ventilator 12/02/17 20:00 45 12/02/17 19:00 75 25 97/48 (64) 100 12/02/17 18:49 71 26 45 Micro: Microbiology Date/Time Source Procedure Growth Status 12/01/17 12:00 Blood Blood Culture - Preliminary NO GROWTH AFTER 24 HOURS Resulted 12/01/17 11:50 Blood Blood Culture - Preliminary NO GROWTH AFTER 24 HOURS Resulted 12/01/17 13:20 Nasal Nares MRSA Culture - Final NO METHICILLIN RESISTANT STAPH AUREUS... Complete 12/02/17 04:00 Stool Clostridium difficile Toxin Assay - Final Complete 12/01/17 14:05 Urine,Clean Catch Urine Culture - Final NO GROWTH AFTER 48 HOURS Complete 12/02/17 04:00 Anus Stool Culture - Preliminary NO GROWTH Resulted 12/01/17 13:20 Rectum VRE Culture - Final Enterococcus Faecalis - Vre Complete 12/01/17 13:20 Rectum - Final NO CARBAPENEM-RESISTANT ENTEROBACTERI... Complete Accucheck: 240 Critical Care - Subjective ROS Limited/Unobtainable: Yes FI02: 35 Vent Support Breath Rate: 16 Vent Support Mode: AC Vent Tidal Volume: 500 Sputum Amount: Small PEEP: 5.0 PIP: 27 Tube Feeding Amount: 30 I&O: Intake and Output 12/02/17 12/03/17 18:59 06:59 Intake Total 1174.875 ml 1670.0 ml Output Total 420 ml 410 ml Balance 754.875 ml 1260.0 ml IV Total 964.875 ml 1310.0 ml Tube Feeding 210 ml 360 ml Output Urine Total 420 ml 410 ml # Bowel Movements 5 1 ET-Tube: 7.5 ET Position: 22 Booker Baumann MD Dec 03, 2017 18:11
--- NOTE | 2017-12-03 19:08 | General Progress Note ---
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 --> Anemia w/u has been reviewed. Will trend CBC daily --> No evidence of hemolysis noted, peripheral smear has been reviewed --> Hgb goal >7. Transfuse as needed. # Leukocytosis. Likely related to underlying infection vs reactive preocess. --> Imaging has been reviewed. Shows Stable cardiomegaly. Slight haziness of the pulmonary vascularity suggests mild interstitial edema. Unchanged elevation of the left hemidiaphragm. --> Blood cs and urine cx have been reviewed. --> Has been started on abx, empiric tx # Thrombocytopenia. Potential causes multifactorial, evaluate leiver and viral etiologies. --> Hep panel pending and HIV is negative --> Ordered US abd for evaluation of cirrhosis and hsm - pending --> Abx and other meds have been reviewed. --> Ok for ppx if heparin >50k with either heparin or lovenox # Constipation. --> ordered KUB evaluate abdominal distention - No acute process. Findings as noted --> electrolyte correction --> prevacid GT bowel regime # Sepsis. # PEG. # Malnutrition. GREATLY APPRECIATE CONSULTATION. Subjective Date patient seen: Dec 03, 2017 ROS Limited/Unobtainable: Yes Hematologic/Lymphatic: Reports: anemia Allergies: Coded Allergies: TERAZOSIN (Verified Allergy, Unknown, 10/27/17) Subjective S/P g-tube Objective Last 24 Hour Vital Signs Date Time Temp Pulse Resp B/P (MAP) Pulse Ox O2 Delivery O2 Flow Rate FiO2 12/03/17 18:00 80 30 110/46 (67) 100 12/03/17 17:50 35 12/03/17 17:40 35 12/03/17 17:19 78 35 40 12/03/17 17:00 78 33 108/52 (70) 100 12/03/17 16:00 Mechanical Ventilator 12/03/17 16:00 73 27 102/49 (66) 100 12/03/17 15:10 40 12/03/17 15:07 78 33 40 12/03/17 15:00 75 30 90/52 (65) 100 12/03/17 14:00 74 28 93/48 (63) 100 12/03/17 13:00 98.1 72 27 95/56 (69) 100 12/03/17 12:54 71 27 45 12/03/17 12:00 Mechanical Ventilator 12/03/17 12:00 71 12/03/17 12:00 71 26 94/55 (68) 100 12/03/17 12:00 45 12/03/17 11:07 77 30 45 12/03/17 11:00 71 26 95/57 (70) 100 12/03/17 10:00 70 25 97/68 (78) 100 12/03/17 09:00 68 25 88/44 (59) 100 12/03/17 09:00 92/53 12/03/17 08:30 69 30 45 12/03/17 08:00 97.8 68 27 164/122 (136) 100 12/03/17 08:00 Mechanical Ventilator 12/03/17 08:00 69 12/03/17 08:00 45 12/03/17 07:00 66 32 99/45 (63) 100 12/03/17 06:48 71 27 45 12/03/17 06:00 71 24 91/41 (58) 100 12/03/17 05:10 74 26 45 12/03/17 05:00 69 25 92/46 (61) 100 12/03/17 04:00 Mechanical Ventilator 12/03/17 04:00 72 12/03/17 04:00 45 12/03/17 04:00 98.4 74 28 87/42 (57) 100 12/03/17 03:30 75 24 45 12/03/17 03:00 73 26 87/46 (60) 100 12/03/17 02:00 70 26 103/50 (67) 100 12/03/17 01:08 73 24 45 12/03/17 01:00 72 28 100/51 (67) 100 12/03/17 00:00 45 12/03/17 00:00 Mechanical Ventilator 12/03/17 00:00 98.6 73 25 90/48 (62) 100 12/03/17 00:00 77 12/02/17 23:23 72 25 45 12/02/17 23:00 77 35 104/51 (68) 100 12/02/17 22:00 76 26 100/50 (67) 100 12/02/17 21:21 74 29 45 12/02/17 21:00 74 25 97/54 (68) 100 10/27/18 20:00 74 12/02/17 20:00 98.2 76 27 93/47 (62) 100 12/02/17 20:00 Mechanical Ventilator 12/02/17 20:00 45 12/02/17 19:00 75 25 97/48 (64) 100 Intake and Output 12/02/17 12/03/17 18:59 06:59 Intake Total 1174.875 ml 1670.0 ml Output Total 420 ml 410 ml Balance 754.875 ml 1260.0 ml IV Total 964.875 ml 1310.0 ml Tube Feeding 210 ml 360 ml Output Urine Total 420 ml 410 ml # Bowel Movements 5 1 Laboratory Tests 12/02/17 20:45: Stool Occult Blood Positive 12/03/17 04:00: White Blood Count 17.8H, Red Blood Count 3.70L, Hemoglobin 10.0L, Hematocrit 30.6L, Mean Corpuscular Volume 83, Mean Corpuscular Hemoglobin 27.0, Mean Corpuscular Hemoglobin Concent 32.7, Red Cell Distribution Width 15.7H, Platelet Count 114L, Mean Platelet Volume 8.4, Neutrophils (%) (Auto) , Lymphocytes (%) (Auto) , Monocytes (%) (Auto) , Eosinophils (%) (Auto) , Basophils (%) (Auto) , Differential Total Cells Counted 100, Neutrophils % ( Manual) 66, Lymphocytes % (Manual) 7L, Monocytes % (Manual) 3, Eosinophils % ( Manual) 1, Basophils % (Manual) 0, Band Neutrophils 23H, Platelet Estimate DecreasedL, Platelet Morphology Normal, Anisocytosis 1+, Sickle Cell Screen [ Pending], Prothrombin Time 12.2H, Prothromb Time International Ratio 1.2H, Sodium Level 174*H, Potassium Level 3.3L, Chloride Level 141H, Carbon Dioxide Level 17L, Anion Gap 17H, Blood Urea Nitrogen 99H, Creatinine 3.1H, Estimat Glomerular Filtration Rate , Glucose Level 164H, Lactic Acid Level 2.60H, Uric Acid 7.7H, Calcium Level 7.1L, Phosphorus Level 2.4L, Magnesium Level 2.5H, Iron Level 20L, Total Iron Binding Capacity 118L, Percent Iron Saturation 17, Unsaturated Iron Binding 98L, Ferritin 511H, Total Bilirubin 0.6, Gamma Glutamyl Transpeptidase 18, Aspartate Amino Transf (AST/SGOT) 224H, Alanine Aminotransferase (ALT/SGPT) 213H, Alkaline Phosphatase 75, Lactate Dehydrogenase 917H, Total Creatine Kinase 7672H, Troponin I 0.490H, Pro-B-Type Natriuretic Peptide 468H, Total Protein 6.1L, Albumin 1.9L, Globulin 4.2, Albumin/Globulin Ratio 0.5L, Lipase 740H, Vitamin B12 Level 1181H, Folate 26.7, Random Vancomycin Level 2.8, Hepatitis A IgM Antibody [Pending], Hepatitis B Surface Antigen [Pending], Hepatitis B Core IgM Antibody [Pending], Hepatitis C Antibody [Pending], HIV (1&2) Antibody Rapid Negative 12/03/17 07:30: Lactic Acid Level 1.90 12/03/17 13:22: C-Reactive Protein, Quantitative > 70.0H Height (Feet): 5 Height (Inches): 5.00 Weight (Pounds): 145 General Appearance: no apparent distress EENT: PERRL/EOMI Neck: normal alignment Cardiovascular: normal peripheral pulses Respiratory/Chest: no respiratory distress Abdomen: normal bowel sounds Beny Dalton MD Dec 03, 2017 19:08
--- NOTE | 2017-12-03 19:44 | Consultation ---
DATE OF CONSULTATION: 12/03/2017 INFECTIOUS DISEASES CONSULTATION PRIMARY ATTENDING PHYSICIAN: Trish Matias M.D. REASON FOR CONSULTATION: Sepsis. HISTORY OF PRESENT ILLNESS: The patient is an 87-year-old male, who is a [facility] resident admitted on 12/01/2017 and transferred to the hospital for abnormal labs, hypernatremia. It was found the patient was hypotensive, hypoxemic, and hypernatremic. The patient was intubated and transferred to ICU. He had a temperature of 100.3 degrees at the time of admission in addition to respiratory failure and renal failure. PAST MEDICAL HISTORY: Advanced dementia, recently had G-tube placement, has BPH, has history of CVA. MEDICATIONS: Midodrine, albumin, insulin, loperamide, chlorhexidine, Senokot, aspirin, Zosyn, and vancomycin. ALLERGIES: No known drug allergies. SOCIAL HISTORY: [facility] resident, . No history of alcohol, drug abuse, or smoking. No other history obtainable. PHYSICAL EXAMINATION: VITAL SIGNS: Temperature 97.8 degrees, pulse 71, blood pressure is 94/55, respirations 27. GENERAL APPEARANCE: Unresponsive. He seems to be well developed. HEAD AND NECK: [place] conjunctiva, orally intubated. HEART: Normal rate. LUNGS: Clear on mechanical ventilator. ABDOMEN: Soft. G-tube feeding. EXTREMITIES: He has no edema. He has right femoral line that was placed in the hospital. LABORATORY AND DIAGNOSTIC DATA: WBC , hemoglobin 10, hematocrit 30.6, and platelets is 114. Lactic acid is 1.9, coming down from 2.6. Sodium 174, potassium 3.3, chloride 141, bicarbonate 17, BUN 99, and creatinine 3.1. AST 224 and ALT 213. Troponin 0.490. Cultures so far negative except VRE in rectum. C. diff test was negative. Stool culture, no growth. CK level is 7672. IMPRESSION: Sepsis, systemic inflammatory response syndrome with fever, leukocytosis. The patient have acute hypoxemic respiratory failure, acute renal failure, hypernatremia, dehydration, rhabdomyolysis, diabetes mellitus, VRE colonization, advanced dementia, pressure ulcer that seems to develop recently. RECOMMENDATION: We will continue with Zosyn. We will discontinue IV vancomycin. We will follow up the cultures. At the end of my exam, I thank Dr. Matias for involving me in the care of this patient. Anam Cruz M.D. DR: Saba JOB#: [id number] CC:
[2017-12-03] MEDS: Dyna-Hex 2% Top Sol 2oz TOPIC SCH (20:13)
--- NOTE | 2017-12-03 21:12 | General Progress Note ---
Assessment/Plan Problem List: (1) Hypoxemia ICD Codes: R09.02 - Hypoxemia SNOMED: 939206108 (2) Pneumonia ICD Codes: J18.9 - Pneumonia, unspecified organism SNOMED: 497965181 (3) Malnutrition ICD Codes: E46 - Unspecified protein-calorie malnutrition SNOMED: 40972511 (4) Renal failure (ARF), acute on chronic ICD Codes: N17.9 - Acute kidney failure, unspecified; N18.9 - Chronic kidney disease, unspecified SNOMED: 455716136 Qualifiers: Qualified Codes: N17.9 - Acute kidney failure, unspecified; N18.3 - Chronic kidney disease, stage 3 (moderate) (5) Respiratory failure ICD Codes: J96.90 - Respiratory failure, unspecified, unspecified whether with hypoxia or hypercapnia SNOMED: 004520186 Qualifiers: Qualified Codes: J96.00 - Acute respiratory failure, unspecified whether with hypoxia or hypercapnia (6) Severe sepsis ICD Codes: A41.9 - Sepsis, unspecified organism; R65.20 - Severe sepsis without septic shock SNOMED: 84449582 (7) UTI (urinary tract infection) ICD Codes: N39.0 - Urinary tract infection, site not specified SNOMED: 19228283 Qualifiers: Qualified Codes: N39.0 - Urinary tract infection, site not specified (8) NSTEMI (non-ST elevated myocardial infarction) ICD Codes: I21.4 - Non-ST elevation (NSTEMI) myocardial infarction SNOMED: 221188111 (9) Hypernatremia ICD Codes: E87.0 - Hyperosmolality and hypernatremia SNOMED: 62978895 (10) DM (11) Rhabdomyolysis ICD Codes: M62.82 - Rhabdomyolysis SNOMED: 379087153 Status: progressing Assessment/Plan hypernatremia improving resp failure intubated lethargic persistent leukocytosis uti sepsis abx per id afebrile critical condition needs fluids nstemi Subjective ROS Limited/Unobtainable: Yes Allergies: Coded Allergies: TERAZOSIN (Verified Allergy, Unknown, 10/27/17) Objective Last 24 Hour Vital Signs Date Time Temp Pulse Resp B/P (MAP) Pulse Ox O2 Delivery O2 Flow Rate FiO2 12/03/17 20:00 99.3 90 35 108/57 (74) 100 12/03/17 20:00 92 10/28/18 20:00 Mechanical Ventilator 12/03/17 19:26 81 36 35 12/03/17 19:00 83 30 105/53 (70) 100 12/03/17 18:00 80 30 110/46 (67) 100 12/03/17 17:50 35 12/03/17 17:40 35 12/03/17 17:19 78 35 40 12/03/17 17:00 78 33 108/52 (70) 100 12/03/17 16:00 Mechanical Ventilator 12/03/17 16:00 72 12/03/17 16:00 73 27 102/49 (66) 100 12/03/17 16:00 98.7 12/03/17 15:10 40 12/03/17 15:07 78 33 40 12/03/17 15:00 75 30 90/52 (65) 100 12/03/17 14:00 74 28 93/48 (63) 100 12/03/17 13:00 98.1 72 27 95/56 (69) 100 12/03/17 12:54 71 27 45 12/03/17 12:00 Mechanical Ventilator 12/03/17 12:00 71 12/03/17 12:00 71 26 94/55 (68) 100 12/03/17 12:00 45 12/03/17 11:07 77 30 45 12/03/17 11:00 71 26 95/57 (70) 100 12/03/17 10:00 70 25 97/68 (78) 100 12/03/17 09:00 68 25 88/44 (59) 100 12/03/17 09:00 92/53 12/03/17 08:30 69 30 45 12/03/17 08:00 97.8 68 27 164/122 (136) 100 12/03/17 08:00 Mechanical Ventilator 12/03/17 08:00 69 12/03/17 08:00 45 12/03/17 07:00 66 32 99/45 (63) 100 12/03/17 06:48 71 27 45 12/03/17 06:00 71 24 91/41 (58) 100 12/03/17 05:10 74 26 45 12/03/17 05:00 69 25 92/46 (61) 100 12/03/17 04:00 Mechanical Ventilator 12/03/17 04:00 72 12/03/17 04:00 45 12/03/17 04:00 98.4 74 28 87/42 (57) 100 12/03/17 03:30 75 24 45 12/03/17 03:00 73 26 87/46 (60) 100 12/03/17 02:00 70 26 103/50 (67) 100 12/03/17 01:08 73 24 45 12/03/17 01:00 72 28 100/51 (67) 100 12/03/17 00:00 45 12/03/17 00:00 Mechanical Ventilator 12/03/17 00:00 98.6 73 25 90/48 (62) 100 12/03/17 00:00 77 12/02/17 23:23 72 25 45 12/02/17 23:00 77 35 104/51 (68) 100 12/02/17 22:00 76 26 100/50 (67) 100 12/02/17 21:21 74 29 45 Intake and Output 12/02/17 12/03/17 19:00 07:00 Intake Total 1404.875 ml 1570.0 ml Output Total 410 ml 420 ml Balance 994.875 ml 1150.0 ml IV Total 1164.875 ml 1210.0 ml Tube Feeding 240 ml 360 ml Output Urine Total 410 ml 420 ml # Bowel Movements 5 1 Laboratory Tests 12/03/17 04:00: White Blood Count 17.8H, Red Blood Count 3.70L, Hemoglobin 10.0L, Hematocrit 30.6L, Mean Corpuscular Volume 83, Mean Corpuscular Hemoglobin 27.0, Mean Corpuscular Hemoglobin Concent 32.7, Red Cell Distribution Width 15.7H, Platelet Count 114L, Mean Platelet Volume 8.4, Neutrophils (%) (Auto) , Lymphocytes (%) (Auto) , Monocytes (%) (Auto) , Eosinophils (%) (Auto) , Basophils (%) (Auto) , Differential Total Cells Counted 100, Neutrophils % ( Manual) 66, Lymphocytes % (Manual) 7L, Monocytes % (Manual) 3, Eosinophils % ( Manual) 1, Basophils % (Manual) 0, Band Neutrophils 23H, Platelet Estimate DecreasedL, Platelet Morphology Normal, Anisocytosis 1+, Sickle Cell Screen [ Pending], Prothrombin Time 12.2H, Prothromb Time International Ratio 1.2H, Sodium Level 174*H, Potassium Level 3.3L, Chloride Level 141H, Carbon Dioxide Level 17L, Anion Gap 17H, Blood Urea Nitrogen 99H, Creatinine 3.1H, Estimat Glomerular Filtration Rate , Glucose Level 164H, Lactic Acid Level 2.60H, Uric Acid 7.7H, Calcium Level 7.1L, Phosphorus Level 2.4L, Magnesium Level 2.5H, Iron Level 20L, Total Iron Binding Capacity 118L, Percent Iron Saturation 17, Unsaturated Iron Binding 98L, Ferritin 511H, Total Bilirubin 0.6, Gamma Glutamyl Transpeptidase 18, Aspartate Amino Transf (AST/SGOT) 224H, Alanine Aminotransferase (ALT/SGPT) 213H, Alkaline Phosphatase 75, Lactate Dehydrogenase 917H, Total Creatine Kinase 7672H, Troponin I 0.490H, Pro-B-Type Natriuretic Peptide 468H, Total Protein 6.1L, Albumin 1.9L, Globulin 4.2, Albumin/Globulin Ratio 0.5L, Lipase 740H, Vitamin B12 Level 1181H, Folate 26.7, Random Vancomycin Level 2.8, Hepatitis A IgM Antibody [Pending], Hepatitis B Surface Antigen [Pending], Hepatitis B Core IgM Antibody [Pending], Hepatitis C Antibody [Pending], HIV (1&2) Antibody Rapid Negative 12/03/17 07:30: Lactic Acid Level 1.90 12/03/17 13:22: C-Reactive Protein, Quantitative > 70.0H Height (Feet): 5 Height (Inches): 5.00 Weight (Pounds): 145 General Appearance: lethargic, confused Cardiovascular: normal peripheral pulses Abdomen: soft Trish Matias MD Dec 03, 2017 21:12
[2017-12-04] VITALS (28 sets, daily range): BP systolic 94–138; BP diastolic 46–64
[2017-12-04] MEDS: NovoLOG Insulin Flexpen SUBQ SCH ×6 (01:09→20:45)
[2017-12-04 06:14] LABS: HEMATOCRIT 27.9 % (42.0-52.0); HEMOGLOBIN 8.9 G/DL (14.2-18.0); MEAN CORPUSCULAR VOLUME 82 FL (80-99); PLATELET COUNT 106 K/UL (150-450); RED BLOOD COUNT 3.41 M/UL (4.70-6.10); RED CELL DISTRIBUTION WIDTH 15.8 % (11.6-14.8); WHITE BLOOD COUNT 16.4 K/UL (4.8-10.8)
[2017-12-04 06:31] LABS: ALANINE AMINOTRANSFERASE 212 U/L (12-78); ALBUMIN/GLOBULIN RATIO 0.5 (1.0-2.7); ALKALINE PHOSPHATASE 77 U/L (46-116); AMYLASE 123 U/L (25-115); ANION GAP 14 mmol/L (5-15); ASPARTATE AMINO TRANSFERASE 166 U/L (15-37); BILIRUBIN,TOTAL 0.5 MG/DL (0.2-1.0); BLOOD UREA NITROGEN 63 mg/dL (7-18); CALCIUM 6.1 MG/DL (8.5-10.1); CARBON DIOXIDE 16 MMOL/L (21-32); CHLORIDE 124 MMOL/L (98-107); CREATININE 2.3 MG/DL (0.55-1.30); SODIUM 154 MMOL/L (136-145)
[2017-12-04 06:34] LABS: PHOSPHORUS 3.1 MG/DL (2.5-4.9)
[2017-12-04 06:45] LABS: POTASSIUM 2.7 MMOL/L (3.5-5.1)
--- NOTE | 2017-12-04 06:48 | General Progress Note ---
Assessment/Plan Problem List: (1) Renal failure (ARF), acute on chronic ICD Codes: N17.9 - Acute kidney failure, unspecified; N18.9 - Chronic kidney disease, unspecified SNOMED: 954419304 Qualifiers: Qualified Codes: N17.9 - Acute kidney failure, unspecified; N18.3 - Chronic kidney disease, stage 3 (moderate) (2) NSTEMI (non-ST elevated myocardial infarction) ICD Codes: I21.4 - Non-ST elevation (NSTEMI) myocardial infarction SNOMED: 882616417 (3) Hypernatremia ICD Codes: E87.0 - Hyperosmolality and hypernatremia SNOMED: 64876939 (4) DM (5) Rhabdomyolysis ICD Codes: M62.82 - Rhabdomyolysis SNOMED: 399709073 (6) Hypoxemia ICD Codes: R09.02 - Hypoxemia SNOMED: 334938201 (7) Severe sepsis ICD Codes: A41.9 - Sepsis, unspecified organism; R65.20 - Severe sepsis without septic shock SNOMED: 89421496 Assessment/Plan glucose values elevated add Levemir 8 units bid continue NISS every 4 hours Subjective ROS Limited/Unobtainable: Yes Allergies: Coded Allergies: TERAZOSIN (Verified Allergy, Unknown, 10/27/17) Subjective intubated in ICU events noted Objective Last 24 Hour Vital Signs Date Time Temp Pulse Resp B/P (MAP) Pulse Ox O2 Delivery O2 Flow Rate FiO2 12/04/17 06:00 Mechanical Ventilator 35 12/04/17 06:00 71 30 99/58 (72) 100 12/04/17 05:00 36 Mechanical Ventilator 35 12/04/17 05:00 77 32 123/57 (79) 100 12/04/17 04:55 76 31 35 12/04/17 04:00 Mechanical Ventilator 12/04/17 04:00 98.9 88 35 109/58 (75) 100 12/04/17 04:00 71 12/04/17 04:00 32 Mechanical Ventilator 35 12/04/17 04:00 35 12/04/17 03:00 88 31 119/58 (78) 100 12/04/17 03:00 32 Mechanical Ventilator 35 12/04/17 02:35 84 34 35 12/04/17 02:00 85 37 135/64 (87) 100 12/04/17 01:38 36 Mechanical Ventilator 35 12/04/17 01:00 83 36 122/61 (81) 100 12/04/17 00:59 81 32 35 12/04/17 00:00 Mechanical Ventilator 12/04/17 00:00 82 12/04/17 00:00 98.2 82 29 118/60 (79) 100 12/04/17 00:00 35 12/03/17 23:25 83 30 35 12/03/17 23:00 84 32 121/44 (69) 100 12/03/17 22:00 89 25 116/56 (76) 100 12/03/17 21:08 89 31 35 12/03/17 21:00 91 32 146/56 (86) 100 12/03/17 20:00 99.3 90 35 108/57 (74) 100 12/03/17 20:00 92 12/03/17 20:00 Mechanical Ventilator 12/03/17 19:26 81 36 35 12/03/17 19:00 83 30 105/53 (70) 100 12/03/17 18:00 80 30 110/46 (67) 100 12/03/17 17:50 35 12/03/17 17:40 35 12/03/17 17:19 78 35 40 12/03/17 17:00 78 33 108/52 (70) 100 12/03/17 16:00 Mechanical Ventilator 12/03/17 16:00 72 12/03/17 16:00 73 27 102/49 (66) 100 12/03/17 16:00 98.7 12/03/17 15:10 40 12/03/17 15:07 78 33 40 12/03/17 15:00 75 30 90/52 (65) 100 12/03/17 14:00 74 28 93/48 (63) 100 12/03/17 13:00 98.1 72 27 95/56 (69) 100 12/03/17 12:54 71 27 45 12/03/17 12:00 Mechanical Ventilator 12/03/17 12:00 71 12/03/17 12:00 71 26 94/55 (68) 100 12/03/17 12:00 45 12/03/17 11:07 77 30 45 12/03/17 11:00 71 26 95/57 (70) 100 12/03/17 10:00 70 25 97/68 (78) 100 12/03/17 09:00 68 25 88/44 (59) 100 12/03/17 09:00 92/53 12/03/17 08:30 69 30 45 12/03/17 08:00 97.8 68 27 164/122 (136) 100 12/03/17 08:00 Mechanical Ventilator 12/03/17 08:00 69 12/03/17 08:00 45 12/03/17 07:00 66 32 99/45 (63) 100 12/03/17 06:48 71 27 45 Intake and Output 12/03/17 12/04/17 18:59 06:59 Intake Total 3739.0 ml 2120 ml Output Total 495 ml 636 ml Balance 3244.0 ml 1484 ml Free Water 700 ml 100 ml IV Total 2709.0 ml 1660 ml Tube Feeding 330 ml 360 ml Output Urine Total 495 ml 636 ml # Bowel Movements 11 3 Laboratory Tests 12/03/17 07:30: Lactic Acid Level 1.90 12/03/17 13:22: C-Reactive Protein, Quantitative > 70.0H 12/04/17 04:00: White Blood Count 16.4H, Red Blood Count 3.41L, Hemoglobin 8.9L, Hematocrit 27.9L, Mean Corpuscular Volume 82, Mean Corpuscular Hemoglobin 26.0L, Mean Corpuscular Hemoglobin Concent 31.7L, Red Cell Distribution Width 15.8H, Platelet Count 106L, Mean Platelet Volume 10.1, Neutrophils (%) (Auto) , Lymphocytes (%) (Auto) , Monocytes (%) (Auto) , Eosinophils (%) (Auto) , Basophils (%) (Auto) , Neutrophils % (Manual) [Pending], Lymphocytes % (Manual) [Pending], Platelet Estimate [Pending], Platelet Morphology [Pending], Sodium Level [Pending], Potassium Level [Pending], Chloride Level [Pending], Carbon Dioxide Level [Pending], Blood Urea Nitrogen [Pending], Creatinine [Pending], Estimat Glomerular Filtration Rate [Pending], Glucose Level [Pending], Uric Acid [Pending], Calcium Level [Pending], Phosphorus Level [Pending], Magnesium Level [Pending], Total Bilirubin [Pending], Aspartate Amino Transf (AST/SGOT) [ Pending], Alanine Aminotransferase (ALT/SGPT) [Pending], Alkaline Phosphatase [ Pending], Total Creatine Kinase [Pending], Troponin I [Pending], Pro-B-Type Natriuretic Peptide [Pending], Total Protein [Pending], Albumin [Pending], Globulin [Pending], Amylase Level [Pending], Lipase [Pending], Random Vancomycin Level < 2.0 Height (Feet): 5 Height (Inches): 5.00 Weight (Pounds): 146 General Appearance: other - intubated Neck: normal alignment Cardiovascular: tachycardia Respiratory/Chest: decreased breath sounds Abdomen: normal bowel sounds, other - PEG Edema: 1+ Arm (L), 1+ Arm (R), 1+ Leg (L), 1+ Leg (R), 1+ Pedal (L), 1+ Pedal ( R), 1+ Generalized Objective Current Medications Medications (Trade) Dose Ordered Sig/Ruthie Route PRN Reason Start Time Stop Time Status Last Admin Dose Admin Aspirin (ASA) 162 mg DAILY NG 12/02/17 09:00 01/01/18 08:59 12/03/17 09:45 Chlorhexidine Gluconate (Rachael-Hex 2%) 1 applic DAILY@2000 TOPIC 12/02/17 20:00 01/01/18 19:59 12/03/17 20:13 Dextrose 1,000 ml @ 150 mls/hr Q6H40M IV 12/03/17 13:00 01/02/18 12:59 12/04/17 02:37 Dextrose (Dextrose 50%) 25 ml Q30M PRN IV Hypoglycemia 12/02/17 17:30 01/01/18 17:29 Dextrose (Dextrose 50%) 50 ml Q30M PRN IV Hypoglycemia 12/02/17 17:30 01/01/18 17:29 Fentanyl Citrate 1000 mcg/Sodium Chloride 100 ml @ 0 mls/hr Q24H PRN IV Restlessness 12/03/17 21:00 12/10/17 20:59 12/04/17 01:38 Heparin Sodium (Porcine) (Heparin 5000 units/ml) 5,000 units EVERY 12 HOURS SUBQ 12/01/17 21:00 12/31/17 20:59 12/03/17 20:16 Insulin Aspart (NovoLOG) Q4HR SUBQ 12/02/17 21:00 01/01/18 20:59 12/04/17 05:01 Loperamide HCl (Imodium) 2 mg Q6H PRN NG Diarrhea 12/03/17 08:30 01/02/18 08:29 12/03/17 13:14 Midodrine (Pro-Amatine) 2.5 mg THREE TIMES A DAY GT 12/03/17 18:00 01/02/18 17:59 12/03/17 17:18 Nitroglycerin (Ntg) 1 patch Q24H TDERMAL 12/02/17 09:00 01/01/18 08:59 12/02/17 09:37 Pantoprazole (Protonix) 40 mg EVERY 12 HOURS IVP 12/01/17 21:00 12/31/17 20:59 12/03/17 20:13 Piperacillin Sod/ Tazobactam Sod 3.375 gm/Sodium Chloride 110 ml @ 27.5 mls/hr Q12HR IVPB 12/01/17 18:30 12/08/17 18:29 12/03/17 21:02 Sennosides (Senokot) 2 tab DAILY GT 12/02/17 09:00 01/01/18 08:59 12/03/17 09:45 Sucralfate (Carafate) 1 gm FOUR TIMES A DAY GT 12/01/17 18:00 12/31/17 17:59 12/03/17 20:13 Item Value Date Time Bedside Blood Glucose 225 mg/dl H 12/04/17 0501 Bedside Blood Glucose 265 mg/dl H 12/04/17 0109 Bedside Blood Glucose 275 mg/dl H 12/03/172013 Bedside Blood Glucose 240 mg/dl H 12/03/17 1725 Bedside Blood Glucose 135 mg/dl H 12/03/17 1317 Bedside Blood Glucose 100 mg/dl 12/03/17 0900 Bedside Blood Glucose 168 mg/dl H 12/03/17 0502 Bedside Blood Glucose 178 mg/dl H 12/03/17 0100 Stefan Leon MD Dec 04, 2017 06:48
[2017-12-04 06:51] LABS: CREATINE KINASE 7653 U/L (26-308)
[2017-12-04] MEDS: Pantoprazole Inj IVP SCH ×2 (08:25→20:43)
[2017-12-04] MEDS: Aspirin Baby 81mg NG SCH (08:25)
[2017-12-04] MEDS: Sennosides 8.6mg tab GT SCH (08:26)
[2017-12-04] MEDS: Sucralfate 1gm tab GT SCH ×4 (08:26→20:49)
[2017-12-04] MEDS: Heparin 5000 units/ml inj SUBQ SCH ×2 (08:27→20:49)
[2017-12-04] MEDS: Piperacillin/Tazobactam 3.375 GM in NS 110 ML IVPB SCH ×2 (08:32→20:46)
[2017-12-04] MEDS: Levemir Flexpen SUBQ SCH ×2 (08:44→17:29)
[2017-12-04] MEDS: Nitroglycerin Patch 0.4mg TDERMAL SCH (08:46)
--- NOTE | 2017-12-04 10:07 | Pulmonolgy Critical Care Note ---
Critical Care - Asmt/Plan Problems: (1) Hypernatremia (2) NSTEMI (non-ST elevated myocardial infarction) (3) UTI (urinary tract infection) (4) Severe sepsis (5) Respiratory failure (6) Renal failure (ARF), acute on chronic (7) Malnutrition (8) Pancreatitis (9) Pneumonia (10) Rhabdomyolysis (11) Hypoxemia (12) PEG (percutaneous endoscopic gastrostomy) status Respiratory: monitor respiratory rate, adjust FIO2, weaning trial - in am, other - PRN HHN's Cardiac: continue to monitor HR/BP Renal: F/U I&O, keep IV fluid - per renal, check electrolytes Infectious Disease: check cultures, continue antibiotics - Zosyn per ID Gastrointestinal: continue feedings/current rate, other - F/U GI recs Endocrine: monitor blood sugar, other - Glycemic control per ENDO Hematologic: monitor H/H, other - Monitor platelets,F/U HIT Ab panel Neurologic: other - Fentanyl gtt RASS -2L, PRN Versed Prophylaxis: Protonix, Heparin Disposition: keep in ICU Time Spent (Minutes): 60 Notes Reviewed: intake clinician, cardio, renal, ID, GI Discussed with: nurses, consultants Critical Care - Objective Last 24 Hour Vital Signs Date Time Temp Pulse Resp B/P (MAP) Pulse Ox O2 Delivery O2 Flow Rate FiO2 12/04/17 09:14 73 27 35 12/04/17 08:46 102/52 12/04/17 07:56 35 12/04/17 07:50 30 12/04/17 07:25 73 28 35 12/04/17 07:00 33 Mechanical Ventilator 35 12/04/17 07:00 74 33 118/52 (74) 100 12/04/17 06:00 Mechanical Ventilator 35 12/04/17 06:00 71 30 99/58 (72) 100 12/04/17 05:00 36 Mechanical Ventilator 35 12/04/17 05:00 77 32 123/57 (79) 100 12/04/17 04:55 76 31 35 12/04/17 04:00 Mechanical Ventilator 12/04/17 04:00 98.9 88 35 109/58 (75) 100 12/04/17 04:00 71 12/04/17 04:00 32 Mechanical Ventilator 35 12/04/17 04:00 35 12/04/17 03:00 88 31 119/58 (78) 100 12/04/17 03:00 32 Mechanical Ventilator 35 12/04/17 02:35 84 34 35 12/04/17 02:00 85 37 135/64 (87) 100 12/04/17 01:38 36 Mechanical Ventilator 35 12/04/17 01:00 83 36 122/61 (81) 100 12/04/17 00:59 81 32 35 12/04/17 00:00 Mechanical Ventilator 12/04/17 00:00 82 12/04/17 00:00 98.2 82 29 118/60 (79) 100 12/04/17 00:00 35 12/03/17 23:25 83 30 35 12/03/17 23:00 84 32 121/44 (69) 100 12/03/17 22:00 89 25 116/56 (76) 100 12/03/17 21:08 89 31 35 12/03/17 21:00 91 32 146/56 (86) 100 12/03/17 20:00 99.3 90 35 108/57 (74) 100 12/03/17 20:00 92 12/03/17 20:00 Mechanical Ventilator 12/03/17 19:26 81 36 35 12/03/17 19:00 83 30 105/53 (70) 100 12/03/17 18:00 80 30 110/46 (67) 100 12/03/17 17:50 35 12/03/17 17:40 35 12/03/17 17:19 78 35 40 12/03/17 17:00 78 33 108/52 (70) 100 12/03/17 16:00 Mechanical Ventilator 12/03/17 16:00 72 12/03/17 16:00 73 27 102/49 (66) 100 12/03/17 16:00 98.7 12/03/17 15:10 40 12/03/17 15:07 78 33 40 12/03/17 15:00 75 30 90/52 (65) 100 12/03/17 14:00 74 28 93/48 (63) 100 12/03/17 13:00 98.1 72 27 95/56 (69) 100 12/03/17 12:54 71 27 45 12/03/17 12:00 Mechanical Ventilator 12/03/17 12:00 71 12/03/17 12:00 71 26 94/55 (68) 100 10/28/18 12:00 45 12/03/17 11:07 77 30 45 12/03/17 11:00 71 26 95/57 (70) 100 12/03/17 10:00 70 25 97/68 (78) 100 Status: somnolent, other - intubated Condition: critical HEENT: atraumatic, normocephalic Neck: full ROM Lungs: clear Heart: HR/BP stable Abdomen: soft, non-tender, active bowel sounds, feeding tube Extremities: no C/C/E Micro: Microbiology Date/Time Source Procedure Growth Status 12/01/17 12:00 Blood Blood Culture - Preliminary NO GROWTH AFTER 48 HOURS Resulted 12/01/17 11:50 Blood Blood Culture - Preliminary NO GROWTH AFTER 48 HOURS Resulted 12/01/17 13:20 Nasal Nares MRSA Culture - Final NO METHICILLIN RESISTANT STAPH AUREUS... Complete 12/02/17 04:00 Stool Clostridium difficile Toxin Assay - Final Complete 12/01/17 14:05 Urine,Clean Catch Urine Culture - Final NO GROWTH AFTER 48 HOURS Complete 12/02/17 04:00 Anus Stool Culture - Preliminary Resulted 12/01/17 13:20 Rectum VRE Culture - Final Enterococcus Faecalis - Vre Complete 12/01/17 13:20 Rectum - Final NO CARBAPENEM-RESISTANT ENTEROBACTERI... Complete Accucheck: 222 Blood Sugars: BS controlled Critical Care - Subjective ROS Limited/Unobtainable: Yes ICU Day: 4 Intubation Day: 4 Interval Events: Sedated, stable on Vent, O2 needs stable, no sig secretions Hb 8.9, Plt 106, NA 154, K 2.7, HCO3-1 16, BUN/Cr 63/2.3 Trop downtrending, lipase 1055 Condition: critical IV Access: central - R fem CvC EKG Rhythm: Sinus Rhythm FI02: 35 Vent Support Breath Rate: 16 Vent Support Mode: AC Vent Tidal Volume: 500 Sputum Amount: Small PEEP: 5.0 PIP: 21 Secretions: minimal Fluids: D5W cK Drips: Fent Tube Feeding Amount: 30 I&O: Intake and Output 12/03/17 12/04/17 19:00 07:00 Intake Total 3889.0 ml 2025 ml Output Total 491 ml 675 ml Balance 3398.0 ml 1350 ml Free Water 800 ml IV Total 2759.0 ml 1665 ml Tube Feeding 330 ml 360 ml Output Urine Total 491 ml 675 ml # Bowel Movements 11 3 Subjective: AIDE ET-Tube: 7.5 ET Position: 22 Labs: Laboratory Tests Test 12/03/17 13:22 12/04/17 04:00 12/04/17 07:50 C-Reactive Protein, Quantitative > 70.0 mg/dL (0.00-0.90) H White Blood Count 16.4 K/UL (4.8-10.8) H Red Blood Count 3.41 M/UL (4.70-6.10) L Hemoglobin 8.9 G/DL (14.2-18.0) L Hematocrit 27.9 % (42.0-52.0) L Mean Corpuscular Volume 82 FL (80-99) Mean Corpuscular Hemoglobin 26.0 PG (27.0-31.0) L Mean Corpuscular Hemoglobin Concent 31.7 G/DL (32.0-36.0) L Red Cell Distribution Width 15.8 % (11.6-14.8) H Platelet Count 106 K/UL (150-450) L Mean Platelet Volume 10.1 FL (6.5-10.1) Neutrophils (%) (Auto) % (45.0-75.0) Lymphocytes (%) (Auto) % (20.0-45.0) Monocytes (%) (Auto) % (1.0-10.0) Eosinophils (%) (Auto) % (0.0-3.0) Basophils (%) (Auto) % (0.0-2.0) Neutrophils % (Manual) Pending Lymphocytes % (Manual) Pending Platelet Estimate Pending Platelet Morphology Pending Sodium Level 154 MMOL/L (136-145) #H Potassium Level 2.7 MMOL/L (3.5-5.1) *L Chloride Level 124 MMOL/L (98-107) H Carbon Dioxide Level 16 MMOL/L (21-32) L Anion Gap 14 mmol/L (5-15) Blood Urea Nitrogen 63 mg/dL (7-18) H Creatinine 2.3 MG/DL (0.55-1.30) H Estimat Glomerular Filtration Rate mL/min (>60) Glucose Level 203 MG/DL (74-106) H Uric Acid 5.7 MG/DL (2.6-7.2) Calcium Level 6.1 MG/DL (8.5-10.1) L Phosphorus Level 3.1 MG/DL (2.5-4.9) Magnesium Level 2.0 MG/DL (1.8-2.4) Total Bilirubin 0.5 MG/DL (0.2-1.0) Aspartate Amino Transf (AST/SGOT) 166 U/L (15-37) H Alanine Aminotransferase (ALT/SGPT) 212 U/L (12-78) H Alkaline Phosphatase 77 U/L (46-116) Total Creatine Kinase 7653 U/L (26-308) H Troponin I 0.233 ng/mL (0.000-0.056) Pro-B-Type Natriuretic Peptide 1135 pg/mL (0-125) H Total Protein 5.8 G/DL (6.4-8.2) L Albumin 2.0 G/DL (3.4-5.0) L Globulin 3.8 g/dL Albumin/Globulin Ratio 0.5 (1.0-2.7) L Amylase Level 123 U/L (25-115) H Lipase 1055 U/L (73-393) H Random Vancomycin Level < 2.0 ug/mL Arterial Blood pH 7.349 (7.350-7.450) Arterial Blood Partial Pressure CO2 25.3 mmHg (35.0-45.0) L Arterial Blood Partial Pressure O2 74.8 mmHg (75.0-100.0) L Arterial Blood HCO3 13.6 mmol/L (22.0-26.0) *L Arterial Blood Oxygen Saturation 94.2 % (95-100) L Arterial Blood Base Excess -10.7 (-2-2) *L Ebenezer Test Positive Fantasma Nielsen MD Dec 04, 2017 10:07
--- NOTE | 2017-12-04 10:27 | General Progress Note ---
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 --> Anemia w/u has been reviewed. Will trend CBC daily --> No evidence of hemolysis noted, peripheral smear has been reviewed --> Hgb goal >7. Transfuse as needed. # Leukocytosis. Likely related to underlying infection vs reactive process. --> Imaging has been reviewed. Shows Stable cardiomegaly. Slight haziness of the pulmonary vascularity suggests mild interstitial edema. Unchanged elevation of the left hemidiaphragm. --> Blood cx and urine cx have been reviewed. --> Has been started on abx, empiric tx # Thrombocytopenia. Potential causes multifactorial, evaluate leiver and viral etiologies. --> Hep panel pending and HIV is negative --> Ordered US abd for evaluation of cirrhosis and hsm - pending --> Abx and other meds have been reviewed. --> Ok for ppx if heparin >50k with either heparin or lovenox # Constipation. --> ordered KUB evaluate abdominal distention - No acute process. Findings as noted --> electrolyte correction --> prevacid GT bowel regime # Sepsis. # PEG. # Malnutrition. GREATLY APPRECIATE CONSULTATION. Subjective Date patient seen: Dec 04, 2017 ROS Limited/Unobtainable: Yes Hematologic/Lymphatic: Reports: anemia Allergies: Coded Allergies: TERAZOSIN (Verified Allergy, Unknown, 10/27/17) Subjective Pt remains in ICU. No new changes. H/H stable. Objective Last 24 Hour Vital Signs Date Time Temp Pulse Resp B/P (MAP) Pulse Ox O2 Delivery O2 Flow Rate FiO2 12/04/17 09:14 73 27 35 12/04/17 08:46 102/52 12/04/17 08:00 72 12/04/17 07:56 35 12/04/17 07:50 30 12/04/17 07:25 73 28 35 12/04/17 07:00 33 Mechanical Ventilator 35 12/04/17 07:00 74 33 118/52 (74) 100 12/04/17 06:00 Mechanical Ventilator 35 12/04/17 06:00 71 30 99/58 (72) 100 12/04/17 05:00 36 Mechanical Ventilator 35 12/04/17 05:00 77 32 123/57 (79) 100 12/04/17 04:55 76 31 35 12/04/17 04:00 Mechanical Ventilator 12/04/17 04:00 98.9 88 35 109/58 (75) 100 12/04/17 04:00 71 12/04/17 04:00 32 Mechanical Ventilator 35 12/04/17 04:00 35 12/04/17 03:00 88 31 119/58 (78) 100 12/04/17 03:00 32 Mechanical Ventilator 35 12/04/17 02:35 84 34 35 12/04/17 02:00 85 37 135/64 (87) 100 12/04/17 01:38 36 Mechanical Ventilator 35 12/04/17 01:00 83 36 122/61 (81) 100 12/04/17 00:59 81 32 35 12/04/17 00:00 Mechanical Ventilator 12/04/17 00:00 82 12/04/17 00:00 98.2 82 29 118/60 (79) 100 12/04/17 00:00 35 12/03/17 23:25 83 30 35 12/03/17 23:00 84 32 121/44 (69) 100 12/03/17 22:00 89 25 116/56 (76) 100 12/03/17 21:08 89 31 35 12/03/17 21:00 91 32 146/56 (86) 100 12/03/17 20:00 99.3 90 35 108/57 (74) 100 12/03/17 20:00 92 12/03/17 20:00 Mechanical Ventilator 12/03/17 19:26 81 36 35 12/03/17 19:00 83 30 105/53 (70) 100 12/03/17 18:00 80 30 110/46 (67) 100 12/03/17 17:50 35 12/03/17 17:40 35 12/03/17 17:19 78 35 40 12/03/17 17:00 78 33 108/52 (70) 100 12/03/17 16:00 Mechanical Ventilator 12/03/17 16:00 72 12/03/17 16:00 73 27 102/49 (66) 100 12/03/17 16:00 98.7 12/03/17 15:10 40 12/03/17 15:07 78 33 40 12/03/17 15:00 75 30 90/52 (65) 100 12/03/17 14:00 74 28 93/48 (63) 100 12/03/17 13:00 98.1 72 27 95/56 (69) 100 12/03/17 12:54 71 27 45 12/03/17 12:00 Mechanical Ventilator 12/03/17 12:00 71 12/03/17 12:00 71 26 94/55 (68) 100 12/03/17 12:00 45 12/03/17 11:07 77 30 45 12/03/17 11:00 71 26 95/57 (70) 100 Intake and Output 12/03/17 12/04/17 19:00 07:00 Intake Total 3889.0 ml 2025 ml Output Total 491 ml 675 ml Balance 3398.0 ml 1350 ml Free Water 800 ml IV Total 2759.0 ml 1665 ml Tube Feeding 330 ml 360 ml Output Urine Total 491 ml 675 ml # Bowel Movements 11 3 Laboratory Tests 12/03/17 13:22: C-Reactive Protein, Quantitative > 70.0H 12/04/17 04:00: White Blood Count 16.4H, Red Blood Count 3.41L, Hemoglobin 8.9L, Hematocrit 27.9L, Mean Corpuscular Volume 82, Mean Corpuscular Hemoglobin 26.0L, Mean Corpuscular Hemoglobin Concent 31.7L, Red Cell Distribution Width 15.8H, Platelet Count 106L, Mean Platelet Volume 10.1, Neutrophils (%) (Auto) , Lymphocytes (%) (Auto) , Monocytes (%) (Auto) , Eosinophils (%) (Auto) , Basophils (%) (Auto) , Neutrophils % (Manual) [Pending], Lymphocytes % (Manual) [Pending], Platelet Estimate [Pending], Platelet Morphology [Pending], Sodium Level 154#H, Potassium Level 2.7*L, Chloride Level 124H, Carbon Dioxide Level 16L, Anion Gap 14, Blood Urea Nitrogen 63H, Creatinine 2.3H, Estimat Glomerular Filtration Rate , Glucose Level 203H, Uric Acid 5.7, Calcium Level 6.1L, Phosphorus Level 3.1, Magnesium Level 2.0, Total Bilirubin 0.5, Aspartate Amino Transf (AST/SGOT) 166H, Alanine Aminotransferase (ALT/SGPT) 212H, Alkaline Phosphatase 77, Total Creatine Kinase 7653H, Troponin I 0.233H, Pro-B-Type Natriuretic Peptide 1135H, Total Protein 5.8L, Albumin 2.0L, Globulin 3.8, Albumin/Globulin Ratio 0.5L, Amylase Level 123H, Lipase 1055H, Random Vancomycin Level < 2.0 12/04/17 07:50: Arterial Blood pH 7.349L, Arterial Blood Partial Pressure CO2 25.3L, Arterial Blood Partial Pressure O2 74.8L, Arterial Blood HCO3 13.6*L, Arterial Blood Oxygen Saturation 94.2L, Arterial Blood Base Excess -10.7*L, Ebenezer Test Positive Height (Feet): 5 Height (Inches): 5.00 Weight (Pounds): 146 General Appearance: no apparent distress EENT: PERRL/EOMI Neck: normal alignment Cardiovascular: normal peripheral pulses Respiratory/Chest: no respiratory distress Abdomen: normal bowel sounds Beny Dalton MD Dec 04, 2017 10:27
--- NOTE | 2017-12-04 10:56 | Nephrology Progress Note ---
Assessment/Plan Problem List: (1) Renal failure (ARF), acute on chronic (2) Respiratory failure (3) Hypernatremia (4) Rhabdomyolysis (5) DM Assessment Acute respiratory failure- Acute Renal failure- Severe Dehydration PEG Sepsis / UTI / Pneumonia Hypotension- Septic Shock High Lipase Rhabdo- High CPK Elevated Troponin Dementia Plan up dose midodrine- change IV rate- K supplement One dose vanco- check am levels midodrine- monitor CK IV to D5w Vent- Respiratory support Gastric support Antibiotics Monitor renal parameters Poor prognosis Per orders Subjective ROS Limited/Unobtainable: Yes Objective Objective Last 24 Hour Vital Signs Date Time Temp Pulse Resp B/P (MAP) Pulse Ox O2 Delivery O2 Flow Rate FiO2 12/04/17 10:40 71 22 35 12/04/17 10:00 22 Room Air 35 12/04/17 10:00 72 22 99/52 (68) 97 12/04/17 09:14 73 27 35 12/04/17 09:00 73 24 110/54 (72) 98 12/04/17 09:00 24 Mechanical Ventilator 35 12/04/17 08:46 102/52 12/04/17 08:00 35 12/04/17 08:00 72 12/04/17 08:00 29 Mechanical Ventilator 35 12/04/17 08:00 98.2 73 29 102/52 (69) 100 12/04/17 08:00 Mechanical Ventilator 12/04/17 07:56 35 12/04/17 07:50 30 12/04/17 07:25 73 28 35 12/04/17 07:00 33 Mechanical Ventilator 35 12/04/17 07:00 74 33 118/52 (74) 100 12/04/17 06:00 Mechanical Ventilator 35 12/04/17 06:00 71 30 99/58 (72) 100 12/04/17 05:00 36 Mechanical Ventilator 35 12/04/17 05:00 77 32 123/57 (79) 100 12/04/17 04:55 76 31 35 12/04/17 04:00 Mechanical Ventilator 12/04/17 04:00 98.9 88 35 109/58 (75) 100 12/04/17 04:00 71 12/04/17 04:00 32 Mechanical Ventilator 35 12/04/17 04:00 35 12/04/17 03:00 88 31 119/58 (78) 100 12/04/17 03:00 32 Mechanical Ventilator 35 12/04/17 02:35 84 34 35 12/04/17 02:00 85 37 135/64 (87) 100 12/04/17 01:38 36 Mechanical Ventilator 35 12/04/17 01:00 83 36 122/61 (81) 100 12/04/17 00:59 81 32 35 12/04/17 00:00 Mechanical Ventilator 12/04/17 00:00 82 12/04/17 00:00 98.2 82 29 118/60 (79) 100 12/04/17 00:00 35 12/03/17 23:25 83 30 35 12/03/17 23:00 84 32 121/44 (69) 100 12/03/17 22:00 89 25 116/56 (76) 100 12/03/17 21:08 89 31 35 12/03/17 21:00 91 32 146/56 (86) 100 12/03/17 20:00 99.3 90 35 108/57 (74) 100 12/03/17 20:00 92 12/03/17 20:00 Mechanical Ventilator 12/03/17 19:26 81 36 35 12/03/17 19:00 83 30 105/53 (70) 100 12/03/17 18:00 80 30 110/46 (67) 100 12/03/17 17:50 35 12/03/17 17:40 35 12/03/17 17:19 78 35 40 12/03/17 17:00 78 33 108/52 (70) 100 12/03/17 16:00 Mechanical Ventilator 12/03/17 16:00 72 12/03/17 16:00 73 27 102/49 (66) 100 12/03/17 16:00 98.7 12/03/17 15:10 40 12/03/17 15:07 78 33 40 12/03/17 15:00 75 30 90/52 (65) 100 12/03/17 14:00 74 28 93/48 (63) 100 12/03/17 13:00 98.1 72 27 95/56 (69) 100 12/03/17 12:54 71 27 45 12/03/17 12:00 Mechanical Ventilator 12/03/17 12:00 71 12/03/17 12:00 71 26 94/55 (68) 100 12/03/17 12:00 45 12/03/17 11:07 77 30 45 12/03/17 11:00 71 26 95/57 (70) 100 Intake and Output 12/03/17 12/04/17 19:00 07:00 Intake Total 3889.0 ml 2025 ml Output Total 491 ml 675 ml Balance 3398.0 ml 1350 ml Free Water 800 ml IV Total 2759.0 ml 1665 ml Tube Feeding 330 ml 360 ml Output Urine Total 491 ml 675 ml # Bowel Movements 11 3 Laboratory Tests 12/03/17 13:22: C-Reactive Protein, Quantitative > 70.0H 12/04/17 04:00: White Blood Count 16.4H, Red Blood Count 3.41L, Hemoglobin 8.9L, Hematocrit 27.9L, Mean Corpuscular Volume 82, Mean Corpuscular Hemoglobin 26.0L, Mean Corpuscular Hemoglobin Concent 31.7L, Red Cell Distribution Width 15.8H, Platelet Count 106L, Mean Platelet Volume 10.1, Neutrophils (%) (Auto) , Lymphocytes (%) (Auto) , Monocytes (%) (Auto) , Eosinophils (%) (Auto) , Basophils (%) (Auto) , Differential Total Cells Counted 100, Neutrophils % ( Manual) 81H, Lymphocytes % (Manual) 7L, Monocytes % (Manual) 8, Eosinophils % ( Manual) 3, Basophils % (Manual) 1, Band Neutrophils 0, Platelet Estimate DecreasedL, Platelet Morphology Normal, Hypochromasia 2+, Anisocytosis 1+, Sodium Level 154#H, Potassium Level 2.7*L, Chloride Level 124H, Carbon Dioxide Level 16L, Anion Gap 14, Blood Urea Nitrogen 63H, Creatinine 2.3H, Estimat Glomerular Filtration Rate , Glucose Level 203H, Uric Acid 5.7, Calcium Level 6.1L, Phosphorus Level 3.1, Magnesium Level 2.0, Total Bilirubin 0.5, Aspartate Amino Transf (AST/SGOT) 166H, Alanine Aminotransferase (ALT/SGPT) 212H, Alkaline Phosphatase 77, Total Creatine Kinase 7653H, Troponin I 0.233H, Pro-B- Type Natriuretic Peptide 1135H, Total Protein 5.8L, Albumin 2.0L, Globulin 3.8, Albumin/Globulin Ratio 0.5L, Amylase Level 123H, Lipase 1055H, Random Vancomycin Level < 2.0 12/04/17 07:50: Arterial Blood pH 7.349L, Arterial Blood Partial Pressure CO2 25.3L, Arterial Blood Partial Pressure O2 74.8L, Arterial Blood HCO3 13.6*L, Arterial Blood Oxygen Saturation 94.2L, Arterial Blood Base Excess -10.7*L, Ebenezer Test Positive Height (Feet): 5 Height (Inches): 5.00 Weight (Pounds): 146 EENT: other - on vent Cardiovascular: normal rate Respiratory/Chest: decreased breath sounds Abdomen: soft Objective no other change Randolph Fernandes MD Dec 04, 2017 10:56
--- NOTE | 2017-12-04 10:58 | GI Progress Note ---
Assessment/Plan Problems: (1) Malnutrition ICD Codes: E46 - Unspecified protein-calorie malnutrition SNOMED: 36839796 (2) Pancreatitis ICD Codes: K85.90 - Acute pancreatitis without necrosis or infection, unspecified SNOMED: 89335327 Qualifiers: Qualified Codes: K85.90 - Acute pancreatitis without necrosis or infection, unspecified (3) Constipation ICD Codes: K59.00 - Constipation, unspecified SNOMED: 64974178 (4) PEG (percutaneous endoscopic gastrostomy) status ICD Codes: Z93.1 - Gastrostomy status SNOMED: 465537192, 496105548 (5) DM (6) Severe sepsis ICD Codes: A41.9 - Sepsis, unspecified organism; R65.20 - Severe sepsis without septic shock SNOMED: 30724632 Status: stable Status Narrative Discussed with Dr. Coronel. Assessment/Plan KUB reviewed anemia work up on GTF ,renal 30 cc add imodium prn repeat amylase and lipase fu nephrology fu labs The patient was seen and examined at bedside and all new and available data was reviewed in the patients chart. I agree with the above findings, impression and plan. (Patient seen earlier today. Signature stamp does not reflect patient encounter time.). - Juan Coronel MD Subjective Gastrointestinal/Abdominal: Reports: no symptoms Objective Last 24 Hour Vital Signs Date Time Temp Pulse Resp B/P (MAP) Pulse Ox O2 Delivery O2 Flow Rate FiO2 12/04/17 10:40 71 22 35 12/04/17 10:00 22 Room Air 35 12/04/17 10:00 72 22 99/52 (68) 97 12/04/17 09:14 73 27 35 12/04/17 09:00 73 24 110/54 (72) 98 12/04/17 09:00 24 Mechanical Ventilator 35 12/04/17 08:46 102/52 12/04/17 08:00 35 12/04/17 08:00 72 12/04/17 08:00 29 Mechanical Ventilator 35 12/04/17 08:00 98.2 73 29 102/52 (69) 100 12/04/17 08:00 Mechanical Ventilator 12/04/17 07:56 35 12/04/17 07:50 30 12/04/17 07:25 73 28 35 12/04/17 07:00 33 Mechanical Ventilator 35 12/04/17 07:00 74 33 118/52 (74) 100 12/04/17 06:00 Mechanical Ventilator 35 12/04/17 06:00 71 30 99/58 (72) 100 12/04/17 05:00 36 Mechanical Ventilator 35 12/04/17 05:00 77 32 123/57 (79) 100 12/04/17 04:55 76 31 35 12/04/17 04:00 Mechanical Ventilator 12/04/17 04:00 98.9 88 35 109/58 (75) 100 12/04/17 04:00 71 12/04/17 04:00 32 Mechanical Ventilator 35 12/04/17 04:00 35 12/04/17 03:00 88 31 119/58 (78) 100 12/04/17 03:00 32 Mechanical Ventilator 35 12/04/17 02:35 84 34 35 12/04/17 02:00 85 37 135/64 (87) 100 12/04/17 01:38 36 Mechanical Ventilator 35 12/04/17 01:00 83 36 122/61 (81) 100 12/04/17 00:59 81 32 35 12/04/17 00:00 Mechanical Ventilator 12/04/17 00:00 82 12/04/17 00:00 98.2 82 29 118/60 (79) 100 12/04/17 00:00 35 12/03/17 23:25 83 30 35 12/03/17 23:00 84 32 121/44 (69) 100 12/03/17 22:00 89 25 116/56 (76) 100 12/03/17 21:08 89 31 35 12/03/17 21:00 91 32 146/56 (86) 100 12/03/17 20:00 99.3 90 35 108/57 (74) 100 12/03/17 20:00 92 12/03/17 20:00 Mechanical Ventilator 12/03/17 19:26 81 36 35 12/03/17 19:00 83 30 105/53 (70) 100 12/03/17 18:00 80 30 110/46 (67) 100 12/03/17 17:50 35 12/03/17 17:40 35 12/03/17 17:19 78 35 40 12/03/17 17:00 78 33 108/52 (70) 100 12/03/17 16:00 Mechanical Ventilator 12/03/17 16:00 72 12/03/17 16:00 73 27 102/49 (66) 100 12/03/17 16:00 98.7 12/03/17 15:10 40 12/03/17 15:07 78 33 40 12/03/17 15:00 75 30 90/52 (65) 100 12/03/17 14:00 74 28 93/48 (63) 100 12/03/17 13:00 98.1 72 27 95/56 (69) 100 12/03/17 12:54 71 27 45 12/03/17 12:00 Mechanical Ventilator 12/03/17 12:00 71 12/03/17 12:00 71 26 94/55 (68) 100 12/03/17 12:00 45 12/03/17 11:07 77 30 45 12/03/17 11:00 71 26 95/57 (70) 100 Intake and Output 12/03/17 12/04/17 19:00 07:00 Intake Total 3889.0 ml 2025 ml Output Total 491 ml 675 ml Balance 3398.0 ml 1350 ml Free Water 800 ml IV Total 2759.0 ml 1665 ml Tube Feeding 330 ml 360 ml Output Urine Total 491 ml 675 ml # Bowel Movements 11 3 Laboratory Tests Test 12/03/17 13:22 12/04/17 04:00 12/04/17 07:50 C-Reactive Protein, Quantitative > 70.0 mg/dL (0.00-0.90) H White Blood Count 16.4 K/UL (4.8-10.8) H Red Blood Count 3.41 M/UL (4.70-6.10) L Hemoglobin 8.9 G/DL (14.2-18.0) L Hematocrit 27.9 % (42.0-52.0) L Mean Corpuscular Volume 82 FL (80-99) Mean Corpuscular Hemoglobin 26.0 PG (27.0-31.0) L Mean Corpuscular Hemoglobin Concent 31.7 G/DL (32.0-36.0) L Red Cell Distribution Width 15.8 % (11.6-14.8) H Platelet Count 106 K/UL (150-450) L Mean Platelet Volume 10.1 FL (6.5-10.1) Neutrophils (%) (Auto) % (45.0-75.0) Lymphocytes (%) (Auto) % (20.0-45.0) Monocytes (%) (Auto) % (1.0-10.0) Eosinophils (%) (Auto) % (0.0-3.0) Basophils (%) (Auto) % (0.0-2.0) Differential Total Cells Counted 100 Neutrophils % (Manual) 81 % (45-75) H Lymphocytes % (Manual) 7 % (20-45) L Monocytes % (Manual) 8 % (1-10) Eosinophils % (Manual) 3 % (0-3) Basophils % (Manual) 1 % (0-2) Band Neutrophils 0 % (0-8) Platelet Estimate Decreased L Platelet Morphology Normal Hypochromasia 2+ Anisocytosis 1+ Sodium Level 154 MMOL/L (136-145) #H Potassium Level 2.7 MMOL/L (3.5-5.1) *L Chloride Level 124 MMOL/L (98-107) H Carbon Dioxide Level 16 MMOL/L (21-32) L Anion Gap 14 mmol/L (5-15) Blood Urea Nitrogen 63 mg/dL (7-18) H Creatinine 2.3 MG/DL (0.55-1.30) H Estimat Glomerular Filtration Rate mL/min (>60) Glucose Level 203 MG/DL (74-106) H Uric Acid 5.7 MG/DL (2.6-7.2) Calcium Level 6.1 MG/DL (8.5-10.1) L Phosphorus Level 3.1 MG/DL (2.5-4.9) Magnesium Level 2.0 MG/DL (1.8-2.4) Total Bilirubin 0.5 MG/DL (0.2-1.0) Aspartate Amino Transf (AST/SGOT) 166 U/L (15-37) H Alanine Aminotransferase (ALT/SGPT) 212 U/L (12-78) H Alkaline Phosphatase 77 U/L (46-116) Total Creatine Kinase 7653 U/L (26-308) H Troponin I 0.233 ng/mL (0.000-0.056) Pro-B-Type Natriuretic Peptide 1135 pg/mL (0-125) H Total Protein 5.8 G/DL (6.4-8.2) L Albumin 2.0 G/DL (3.4-5.0) L Globulin 3.8 g/dL Albumin/Globulin Ratio 0.5 (1.0-2.7) L Amylase Level 123 U/L (25-115) H Lipase 1055 U/L (73-393) H Random Vancomycin Level < 2.0 ug/mL Arterial Blood pH 7.349 (7.350-7.450) Arterial Blood Partial Pressure CO2 25.3 mmHg (35.0-45.0) L Arterial Blood Partial Pressure O2 74.8 mmHg (75.0-100.0) L Arterial Blood HCO3 13.6 mmol/L (22.0-26.0) *L Arterial Blood Oxygen Saturation 94.2 % (95-100) L Arterial Blood Base Excess -10.7 (-2-2) *L Ebenezer Test Positive Height (Feet): 5 Height (Inches): 5.00 Weight (Pounds): 146 General Appearance: no apparent distress Cardiovascular: normal rate Respiratory/Chest: normal breath sounds, no respiratory distress Abdominal Exam: normal bowel sounds, non tender, soft Extremities: non-tender Kishan Hopkins ROB[employer] TECHNICIAN Dec 04, 2017 10:58
[2017-12-04] MEDS ORDERED: D5W w/KCl 20mEq 1,000 ML IV SCH (11:00)
[2017-12-04] MEDS ORDERED: Midazolam 2mg/2ml Inj IVP PRN (11:00)
[2017-12-04] MEDS ORDERED: Lidocaine 1% Plain 30 ml INJ ONE (11:30)
[2017-12-04] MEDS: D5W w/KCl 20mEq 1,000 ML IV SCH ×2 (11:36→20:49)
[2017-12-04] MEDS ORDERED: Vancomycin 1250mg/D5W 250ml 250 ML IVPB SCH (12:00)
[2017-12-04] MEDS: Lidocaine 1% Plain 30 ml INJ SCH (12:00)
--- NOTE | 2017-12-04 12:01 | Diagnostic Imaging Report ---
Indication:Abdominal pain Technique: Grayscale and duplex Doppler imaging of the abdomen performed. Comparison: None Findings: Imaging is limited. The liver is grossly unremarkable. There is no obvious surface nodularity identified. The liver measures 15 cm. Echogenicity is within normal limits. The right kidney is unremarkable. The spleen is not well seen. The left kidney is not well seen. There is no obvious hydronephrosis or free fluid. CBD is 6 mm which is within normal limits. Gallbladder is contracted. Sonographic Carl's is negative per technologist. The pancreas is poorly seen. The aorta is poorly seen. Dopplerable blood flow noted within the main portal vein which has a somewhat pulsatile waveform. IMPRESSION: Very limited evaluation. No acute findings. Contracted gallbladder.
[2017-12-04] MEDS ORDERED: Heparin 2000 units/Ns 1000ml INJ SCH (12:15)
--- NOTE | 2017-12-04 12:36 | Infectious Diseases Prog Note ---
Assessment/Plan Assessment/Plan A; Sepsis, SIRS Pancreatitis Rhabdomyolysis Acute respiratory failure Acute renal failure Dehydration P: Continue Zosyn Stop Vancomycin Subjective ROS Limited/Unobtainable: Yes Respiratory: Reports: other - failed weaning attempt Gastrointestinal/Abdominal: Reports: diarrhea Allergies: Coded Allergies: TERAZOSIN (Verified Allergy, Unknown, 10/27/17) Objective Vital Signs Last 24 Hour Vital Signs Date Time Temp Pulse Resp B/P (MAP) Pulse Ox O2 Delivery O2 Flow Rate FiO2 12/04/17 12:00 75 12/04/17 12:00 74 20 94/53 (67) 96 12/04/17 11:00 70 21 100/50 (67) 97 12/04/17 10:40 71 22 35 12/04/17 10:00 22 Room Air 35 12/04/17 10:00 72 22 99/52 (68) 97 12/04/17 09:14 73 27 35 12/04/17 09:00 73 24 110/54 (72) 98 12/04/17 09:00 24 Mechanical Ventilator 35 12/04/17 08:46 102/52 12/04/17 08:00 35 12/04/17 08:00 72 12/04/17 08:00 29 Mechanical Ventilator 35 12/04/17 08:00 98.2 73 29 102/52 (69) 100 12/04/17 08:00 Mechanical Ventilator 12/04/17 07:56 35 12/04/17 07:50 30 12/04/17 07:25 73 28 35 12/04/17 07:00 33 Mechanical Ventilator 35 12/04/17 07:00 74 33 118/52 (74) 100 12/04/17 06:00 Mechanical Ventilator 35 12/04/17 06:00 71 30 99/58 (72) 100 12/04/17 05:00 36 Mechanical Ventilator 35 12/04/17 05:00 77 32 123/57 (79) 100 12/04/17 04:55 76 31 35 12/04/17 04:00 Mechanical Ventilator 12/04/17 04:00 98.9 88 35 109/58 (75) 100 12/04/17 04:00 71 12/04/17 04:00 32 Mechanical Ventilator 35 12/04/17 04:00 35 12/04/17 03:00 88 31 119/58 (78) 100 12/04/17 03:00 32 Mechanical Ventilator 35 12/04/17 02:35 84 34 35 12/04/17 02:00 85 37 135/64 (87) 100 12/04/17 01:38 36 Mechanical Ventilator 35 12/04/17 01:00 83 36 122/61 (81) 100 12/04/17 00:59 81 32 35 12/04/17 00:00 Mechanical Ventilator 12/04/17 00:00 82 12/04/17 00:00 98.2 82 29 118/60 (79) 100 12/04/17 00:00 35 12/03/17 23:25 83 30 35 12/03/17 23:00 84 32 121/44 (69) 100 12/03/17 22:00 89 25 116/56 (76) 100 12/03/17 21:08 89 31 35 12/03/17 21:00 91 32 146/56 (86) 100 12/03/17 20:00 99.3 90 35 108/57 (74) 100 12/03/17 20:00 92 12/03/17 20:00 Mechanical Ventilator 12/03/17 19:26 81 36 35 12/03/17 19:00 83 30 105/53 (70) 100 12/03/17 18:00 80 30 110/46 (67) 100 12/03/17 17:50 35 12/03/17 17:40 35 12/03/17 17:19 78 35 40 12/03/17 17:00 78 33 108/52 (70) 100 12/03/17 16:00 Mechanical Ventilator 12/03/17 16:00 72 12/03/17 16:00 73 27 102/49 (66) 100 12/03/17 16:00 98.7 12/03/17 15:10 40 12/03/17 15:07 78 33 40 12/03/17 15:00 75 30 90/52 (65) 100 12/03/17 14:00 74 28 93/48 (63) 100 12/03/17 13:00 98.1 72 27 95/56 (69) 100 12/03/17 12:54 71 27 45 Height (Feet): 5 Height (Inches): 5.00 Weight (Pounds): 146 HEENT: other - orally intubated Respiratory/Chest: lungs clear, other - on ventilator Cardiovascular: normal rate, other - femoral line Abdomen: soft, non tender, other - rectal tube Extremities: other Neurologic/Psychiatric: unresponsiveness Microbiology Date/Time Source Procedure Growth Status 12/01/17 13:20 Nasal Nares MRSA Culture - Final NO METHICILLIN RESISTANT STAPH AUREUS... Complete 12/02/17 04:00 Stool Clostridium difficile Toxin Assay - Final Complete 12/01/17 14:05 Urine,Clean Catch Urine Culture - Final NO GROWTH AFTER 48 HOURS Complete 12/02/17 04:00 Anus Stool Culture - Preliminary Resulted 12/01/17 13:20 Rectum VRE Culture - Final Enterococcus Faecalis - Vre Complete 12/01/17 13:20 Rectum - Final NO CARBAPENEM-RESISTANT ENTEROBACTERI... Complete Laboratory Tests Test 12/03/17 13:22 12/04/17 04:00 12/04/17 07:50 C-Reactive Protein, Quantitative > 70.0 mg/dL (0.00-0.90) H 17.6 mg/dL (0.00-0.90) H White Blood Count 16.4 K/UL (4.8-10.8) H Red Blood Count 3.41 M/UL (4.70-6.10) L Hemoglobin 8.9 G/DL (14.2-18.0) L Hematocrit 27.9 % (42.0-52.0) L Mean Corpuscular Volume 82 FL (80-99) Mean Corpuscular Hemoglobin 26.0 PG (27.0-31.0) L Mean Corpuscular Hemoglobin Concent 31.7 G/DL (32.0-36.0) L Red Cell Distribution Width 15.8 % (11.6-14.8) H Platelet Count 106 K/UL (150-450) L Mean Platelet Volume 10.1 FL (6.5-10.1) Neutrophils (%) (Auto) % (45.0-75.0) Lymphocytes (%) (Auto) % (20.0-45.0) Monocytes (%) (Auto) % (1.0-10.0) Eosinophils (%) (Auto) % (0.0-3.0) Basophils (%) (Auto) % (0.0-2.0) Differential Total Cells Counted 100 Neutrophils % (Manual) 81 % (45-75) H Lymphocytes % (Manual) 7 % (20-45) L Monocytes % (Manual) 8 % (1-10) Eosinophils % (Manual) 3 % (0-3) Basophils % (Manual) 1 % (0-2) Band Neutrophils 0 % (0-8) Platelet Estimate Decreased L Platelet Morphology Normal Hypochromasia 2+ Anisocytosis 1+ Sodium Level 154 MMOL/L (136-145) #H Potassium Level 2.7 MMOL/L (3.5-5.1) *L Chloride Level 124 MMOL/L (98-107) H Carbon Dioxide Level 16 MMOL/L (21-32) L Anion Gap 14 mmol/L (5-15) Blood Urea Nitrogen 63 mg/dL (7-18) H Creatinine 2.3 MG/DL (0.55-1.30) H Estimat Glomerular Filtration Rate mL/min (>60) Glucose Level 203 MG/DL (74-106) H Uric Acid 5.7 MG/DL (2.6-7.2) Calcium Level 6.1 MG/DL (8.5-10.1) L Phosphorus Level 3.1 MG/DL (2.5-4.9) Magnesium Level 2.0 MG/DL (1.8-2.4) Total Bilirubin 0.5 MG/DL (0.2-1.0) Aspartate Amino Transf (AST/SGOT) 166 U/L (15-37) H Alanine Aminotransferase (ALT/SGPT) 212 U/L (12-78) H Alkaline Phosphatase 77 U/L (46-116) Total Creatine Kinase 7653 U/L (26-308) H Troponin I 0.233 ng/mL (0.000-0.056) Pro-B-Type Natriuretic Peptide 1135 pg/mL (0-125) H Total Protein 5.8 G/DL (6.4-8.2) L Albumin 2.0 G/DL (3.4-5.0) L Globulin 3.8 g/dL Albumin/Globulin Ratio 0.5 (1.0-2.7) L Amylase Level 123 U/L (25-115) H Lipase 1055 U/L (73-393) H Random Vancomycin Level < 2.0 ug/mL Arterial Blood pH 7.349 (7.350-7.450) Arterial Blood Partial Pressure CO2 25.3 mmHg (35.0-45.0) L Arterial Blood Partial Pressure O2 74.8 mmHg (75.0-100.0) L Arterial Blood HCO3 13.6 mmol/L (22.0-26.0) *L Arterial Blood Oxygen Saturation 94.2 % (95-100) L Arterial Blood Base Excess -10.7 (-2-2) *L Ebenezer Test Positive Current Medications Medications (Trade) Dose Ordered Sig/Ruthie Route PRN Reason Start Time Stop Time Status Last Admin Dose Admin Aspirin (ASA) 162 mg DAILY NG 12/02/17 09:00 01/01/18 08:59 12/04/17 08:25 Chlorhexidine Gluconate (Rachael-Hex 2%) 1 applic DAILY@1999 TOPIC 12/02/17 20:00 01/01/18 19:59 12/03/17 20:13 Chlorhexidine Gluconate (Rachael-Hex 2%) 1 applic DAILY@1999 TOPIC 12/04/17 20:00 01/03/18 19:59 Dextrose (Dextrose 50%) 25 ml Q30M PRN IV Hypoglycemia 12/04/17 07:00 01/03/18 06:59 Dextrose (Dextrose 50%) 50 ml Q30M PRN IV Hypoglycemia 12/04/17 07:00 01/03/18 06:59 Dextrose/ Electrolytes 1,000 ml @ 100 mls/hr Q10H IV 12/04/17 11:00 01/03/18 10:59 12/04/17 11:36 Fentanyl Citrate 1000 mcg/Sodium Chloride 100 ml @ 0 mls/hr Q24H PRN IV Restlessness 12/03/17 21:00 12/10/17 20:59 12/04/17 01:38 Heparin Sodium (Porcine) (Heparin 5000 units/ml) 5,000 units EVERY 12 HOURS SUBQ 12/01/17 21:00 12/31/17 20:59 12/03/17 20:16 Heparin Sodium/ Sodium Chloride (Heparin 2000 units/Ns 1000ml premix) 2,000 unit ONCE INJ 12/04/17 12:15 12/06/17 12:14 Insulin Aspart (NovoLOG) Q4HR SUBQ 12/02/17 21:00 01/01/18 20:59 12/04/17 08:45 Insulin Detemir (Levemir) 8 units BID SUBQ 12/04/17 09:00 01/03/18 08:59 12/04/17 08:44 Lidocaine HCl (Xylocaine 1% 30ml) 30 ml ONCE INJ 12/04/17 12:00 12/06/17 11:59 Loperamide HCl (Imodium) 2 mg Q6H PRN NG Diarrhea 12/03/17 08:30 01/02/18 08:29 12/03/17 13:14 Midazolam HCl (Versed 2mg/2ml vial) 2 mg Q2H PRN IVP Agitation 12/04/17 11:00 01/03/18 10:59 Midodrine (Pro-Amatine) 5 mg THREE TIMES A DAY GT 12/04/17 13:00 01/02/18 17:59 12/04/17 12:18 Nitroglycerin (Ntg) 1 patch Q24H TDERMAL 12/02/17 09:00 01/01/18 08:59 12/02/17 09:37 Pantoprazole (Protonix) 40 mg EVERY 12 HOURS IVP 12/01/17 21:00 12/31/17 20:59 12/04/17 08:25 Piperacillin Sod/ Tazobactam Sod 3.375 gm/Sodium Chloride 110 ml @ 27.5 mls/hr Q12HR IVPB 12/01/17 18:30 12/08/17 18:29 12/04/17 08:32 Potassium Chloride 100 ml @ 100 mls/hr Q1HR IVPB 12/04/17 10:00 12/04/17 15:59 12/04/17 11:27 Sennosides (Senokot) 2 tab DAILY GT 12/02/17 09:00 01/01/18 08:59 12/03/17 09:45 Sucralfate (Carafate) 1 gm FOUR TIMES A DAY GT 12/01/17 18:00 12/31/17 17:59 12/04/17 12:18 Vancomycin HCl/ Dextrose 250 ml @ 166.667 mls/hr Q24H IVPB 12/04/17 12:00 12/09/17 11:59 12/04/17 12:18 Anam Cruz MD Dec 04, 2017 12:36
[2017-12-04] MEDS ORDERED: D5 1/2NS 1000ml IV ONE (14:52)
--- NOTE | 2017-12-04 14:52 | Diagnostic Imaging Report ---
Indication:Abdominal pain. Elevated lipase and liver function tests Technique: Grayscale and duplex Doppler imaging of the abdomen performed. Comparison: None Findings: The liver is unremarkable. No micronodularity of the surface appreciated. The gallbladder is unremarkable. The demonstrated part of the pancreas, aorta and IVC show no abnormalities. The pancreas is not seen well on this study. Both kidneys appear unremarkable. The spleen is normal in size. There is no biliary ductal dilatation identified. Doppler evaluation of the main portal vein shows patency. There is no ascites. No hydronephrosis seen. Impression: No acute findings.
[2017-12-04] MEDS ORDERED: Tubing IV Secondary IV ONE (15:07)
--- NOTE | 2017-12-04 16:12 | Diagnostic Imaging Report ---
Indication: intermediate frame tender venous access Findings: After the indications, procedure, risks, complications, and alternatives of the procedure were explained, written informed consent was obtained. The right upper extremity was prepped with alcohol. All elements of maximal sterile barrier technique were followed including usage of a cap, mask, sterile gown, sterile gloves, hand hygiene and a large sterile sheet. Sonographic evaluation of the upper extremity was performed demonstrating a patent and compressible basilic vein. Access was obtained under real-time ultrasound guidance (with utilization of sterile gel and sterile probe cover) and digital image was saved and archived. An .018 wire was introduced. Needle exchanged for a 5 Prydeinig peel-away sheath. Measurements were obtained. A 5 Prydeinig dual-lumen Power PICC line catheter was cut to 35 cm and introduced over the wire. Peel-away sheath and wire were removed.Catheter was secured to the skin using 2-0 Prolene suture. Both ports aspirate and flush easily. Post procedure chest x-ray demonstrates good position of the PICC line catheter within the SVC. Impression: Successful placement of an upper extremity PICC line catheter
[2017-12-04] MEDS: Dyna-Hex 2% Top Sol 2oz TOPIC SCH (19:54)
--- NOTE | 2017-12-04 20:22 | General Progress Note ---
Assessment/Plan Problem List: (1) Hypoxemia ICD Codes: R09.02 - Hypoxemia SNOMED: 603239425 (2) Pneumonia ICD Codes: J18.9 - Pneumonia, unspecified organism SNOMED: 416371926 (3) Malnutrition ICD Codes: E46 - Unspecified protein-calorie malnutrition SNOMED: 55749801 (4) Renal failure (ARF), acute on chronic ICD Codes: N17.9 - Acute kidney failure, unspecified; N18.9 - Chronic kidney disease, unspecified SNOMED: 951960041 Qualifiers: Qualified Codes: N17.9 - Acute kidney failure, unspecified; N18.3 - Chronic kidney disease, stage 3 (moderate) (5) Respiratory failure ICD Codes: J96.90 - Respiratory failure, unspecified, unspecified whether with hypoxia or hypercapnia SNOMED: 572628364 Qualifiers: Qualified Codes: J96.00 - Acute respiratory failure, unspecified whether with hypoxia or hypercapnia (6) Severe sepsis ICD Codes: A41.9 - Sepsis, unspecified organism; R65.20 - Severe sepsis without septic shock SNOMED: 94597573 (7) UTI (urinary tract infection) ICD Codes: N39.0 - Urinary tract infection, site not specified SNOMED: 56781816 Qualifiers: Qualified Codes: N39.0 - Urinary tract infection, site not specified (8) NSTEMI (non-ST elevated myocardial infarction) ICD Codes: I21.4 - Non-ST elevation (NSTEMI) myocardial infarction SNOMED: 205408506 (9) Hypernatremia ICD Codes: E87.0 - Hyperosmolality and hypernatremia SNOMED: 64183163 (10) DM (11) Rhabdomyolysis ICD Codes: M62.82 - Rhabdomyolysis SNOMED: 567817708 Assessment/Plan hypernatremia improving needs fluids ordered xray of pelvis and bilat hips abx per id resp failure intubated lethargic persistent leukocytosis uti sepsis nstemi Subjective ROS Limited/Unobtainable: Yes Allergies: Coded Allergies: TERAZOSIN (Verified Allergy, Unknown, 10/27/17) Objective Last 24 Hour Vital Signs Date Time Temp Pulse Resp B/P (MAP) Pulse Ox O2 Delivery O2 Flow Rate FiO2 12/04/17 19:10 73 24 35 12/04/17 19:00 Mechanical Ventilator 35 12/04/17 19:00 73 25 108/51 (70) 98 12/04/17 18:00 20 Mechanical Ventilator 35 12/04/17 18:00 81 25 138/54 (82) 98 12/04/17 17:03 70 23 35 12/04/17 17:00 21 Mechanical Ventilator 35 12/04/17 17:00 98.4 71 20 106/59 (75) 97 12/04/17 16:27 98.4 12/04/17 16:00 70 26 106/56 (73) 98 12/04/17 16:00 Mechanical Ventilator 12/04/17 16:00 74 12/04/17 16:00 35 12/04/17 15:57 22 35 12/04/17 15:20 73 21 35 12/04/17 15:00 69 26 98/58 (71) 98 12/04/17 15:00 20 Mechanical Ventilator 35 12/04/17 14:00 71 26 105/53 (70) 96 12/04/17 14:00 21 Mechanical Ventilator 35 12/04/17 13:01 73 25 35 12/04/17 13:00 20 Mechanical Ventilator 35 12/04/17 13:00 98.6 71 20 105/58 (74) 97 12/04/17 12:00 75 12/04/17 12:00 35 12/04/17 12:00 21 Mechanical Ventilator 35 12/04/17 12:00 74 20 94/53 (67) 96 12/04/17 12:00 Mechanical Ventilator 12/04/17 11:00 22 Mechanical Ventilator 35 12/04/17 11:00 70 21 100/50 (67) 97 12/04/17 10:40 71 22 35 12/04/17 10:00 22 Mechanical Ventilator 35 12/04/17 10:00 72 22 99/52 (68) 97 12/04/17 09:14 73 27 35 12/04/17 09:00 73 24 110/54 (72) 98 12/04/17 09:00 24 Mechanical Ventilator 35 12/04/17 08:46 102/52 12/04/17 08:00 35 12/04/17 08:00 72 12/04/17 08:00 29 Mechanical Ventilator 35 12/04/17 08:00 98.2 73 29 102/52 (69) 100 12/04/17 08:00 Mechanical Ventilator 12/04/17 07:56 35 12/04/17 07:50 30 12/04/17 07:25 73 28 35 12/04/17 07:00 33 Mechanical Ventilator 35 12/04/17 07:00 74 33 118/52 (74) 100 12/04/17 06:00 Mechanical Ventilator 35 12/04/17 06:00 71 30 99/58 (72) 100 12/04/17 05:00 36 Mechanical Ventilator 35 12/04/17 05:00 77 32 123/57 (79) 100 12/04/17 04:55 76 31 35 12/04/17 04:00 Mechanical Ventilator 12/04/17 04:00 98.9 88 35 109/58 (75) 100 12/04/17 04:00 71 12/04/17 04:00 32 Mechanical Ventilator 35 12/04/17 04:00 35 12/04/17 03:00 88 31 119/58 (78) 100 12/04/17 03:00 32 Mechanical Ventilator 35 12/04/17 02:35 84 34 35 12/04/17 02:00 85 37 135/64 (87) 100 12/04/17 01:38 36 Mechanical Ventilator 35 12/04/17 01:00 83 36 122/61 (81) 100 12/04/17 00:59 81 32 35 12/04/17 00:00 Mechanical Ventilator 12/04/17 00:00 82 12/04/17 00:00 98.2 82 29 118/60 (79) 100 12/04/17 00:00 35 12/03/17 23:25 83 30 35 12/03/17 23:00 84 32 121/44 (69) 100 12/03/17 22:00 89 25 116/56 (76) 100 12/03/17 21:08 89 31 35 12/03/17 21:00 91 32 146/56 (86) 100 Intake and Output 12/03/17 12/04/17 18:59 06:59 Intake Total 3739.0 ml 2120 ml Output Total 495 ml 636 ml Balance 3244.0 ml 1484 ml Free Water 700 ml 100 ml IV Total 2709.0 ml 1660 ml Tube Feeding 330 ml 360 ml Output Urine Total 495 ml 636 ml # Bowel Movements 11 3 Laboratory Tests 12/04/17 04:00: White Blood Count 16.4H, Red Blood Count 3.41L, Hemoglobin 8.9L, Hematocrit 27.9L, Mean Corpuscular Volume 82, Mean Corpuscular Hemoglobin 26.0L, Mean Corpuscular Hemoglobin Concent 31.7L, Red Cell Distribution Width 15.8H, Platelet Count 106L, Mean Platelet Volume 10.1, Neutrophils (%) (Auto) , Lymphocytes (%) (Auto) , Monocytes (%) (Auto) , Eosinophils (%) (Auto) , Basophils (%) (Auto) , Differential Total Cells Counted 100, Neutrophils % ( Manual) 81H, Lymphocytes % (Manual) 7L, Monocytes % (Manual) 8, Eosinophils % ( Manual) 3, Basophils % (Manual) 1, Band Neutrophils 0, Platelet Estimate DecreasedL, Platelet Morphology Normal, Hypochromasia 2+, Anisocytosis 1+, Sodium Level 154#H, Potassium Level 2.7*L, Chloride Level 124H, Carbon Dioxide Level 16L, Anion Gap 14, Blood Urea Nitrogen 63H, Creatinine 2.3H, Estimat Glomerular Filtration Rate , Glucose Level 203H, Uric Acid 5.7, Calcium Level 6.1L, Phosphorus Level 3.1, Magnesium Level 2.0, Total Bilirubin 0.5, Aspartate Amino Transf (AST/SGOT) 166H, Alanine Aminotransferase (ALT/SGPT) 212H, Alkaline Phosphatase 77, Total Creatine Kinase 7653H, Troponin I 0.233H, C- Reactive Protein, Quantitative 17.6H, Pro-B-Type Natriuretic Peptide 1135H, Total Protein 5.8L, Albumin 2.0L, Globulin 3.8, Albumin/Globulin Ratio 0.5L, Amylase Level 123H, Lipase 1055H, Random Vancomycin Level < 2.0 12/04/17 07:50: Arterial Blood pH 7.349L, Arterial Blood Partial Pressure CO2 25.3L, Arterial Blood Partial Pressure O2 74.8L, Arterial Blood HCO3 13.6*L, Arterial Blood Oxygen Saturation 94.2L, Arterial Blood Base Excess -10.7*L, Ebenezer Test Positive Height (Feet): 5 Height (Inches): 5.00 Weight (Pounds): 146 General Appearance: lethargic, confused Trish Matias MD Dec 04, 2017 20:22
--- NOTE | 2017-12-04 20:27 | Consultation ---
History of Present Illness General Date patient seen: Dec 04, 2017 Chief Complaint: Dyspnea/Respdistress Referring physician: JOSE LUIS GAYLE Reason for Consultation: Transaminitis/GT management Present Illness HPI 87-year-old male who resides in a assisted facility. The patient was brought to the emergency department with imbalance of sodium, with low blood pressure, was found to be septic, the pt pw waxing and waning of consciousness and is agitated at times. the pt has memory impairment. Allergies: Coded Allergies: TERAZOSIN (Verified Allergy, Unknown, 10/27/17) Medication History Scheduled Amlodipine Besylate (Norvasc), 5 MG GT DAILY, (Reported) Aspirin (Aspirin EC), 81 MG GT DAILY, (Reported) Atorvastatin Calcium* (Lipitor*), 10 MG GT BEDTIME, (Reported) Docusate Sodium* (Colace*), 100 MG GT DAILY, (Reported) Donepezil Hcl* (Donepezil Hcl*), 10 MG GT DAILY, (Reported) Magnesium Hydroxide* (Milk Of Magnesia*), 30 ML GT QHS, (Reported) Sennosides (Senna), 8.6 MG GT DAILY, (Reported) Sennosides* (Sennosides*), 17.2 MG ORAL QPM, (Reported) Tamsulosin Hcl (Tamsulosin Hcl*), 0.4 MG GT BEDTIME, (Reported) Scheduled PRN Acetaminophen* (Acetaminophen 325MG Tablet*), 650 MG ORAL Q4H PRN for For Pain, (Reported) Acetaminophen* (Acetaminophen 325MG Tablet*), 650 MG ORAL Q4H PRN for FEVER ( TEMP >101F), (Reported) Miscellaneous Medications Bisacodyl (Dulcolax), 10 MG RC, (Reported) Na Phos,M-B/Na Phos,Di-Ba (Fleet Enema), 133 ML RC, (Reported) Patient History Limited by: medical condition History Provided By: Patient, Significant Other, Medical Record Healthcare decision maker Resuscitation status Full Code Advanced Directive on File Past Medical/Surgical History Past Medical/Surgical History: (1) Hypokalemia (2) Elevated d-dimer (3) Constipation (4) Malnutrition (5) Pancreatitis (6) Respiratory failure (7) Severe sepsis (8) NSTEMI (non-ST elevated myocardial infarction) (9) Hypernatremia (10) DM (11) Rhabdomyolysis (12) Hypoxemia (13) Renal failure (ARF), acute on chronic (14) UTI (urinary tract infection) (15) Pneumonia Review of Systems Psychiatric: Reports: prior hx, anxiety, depressed feelings, emotional problems Physical Exam General Appearance: no apparent distress, lethargic, confused, agitated Last 24 Hour Vital Signs Date Time Temp Pulse Resp B/P (MAP) Pulse Ox O2 Delivery O2 Flow Rate FiO2 12/04/17 19:10 73 24 35 12/04/17 19:00 Mechanical Ventilator 35 12/04/17 19:00 73 25 108/51 (70) 98 12/04/17 18:00 20 Mechanical Ventilator 35 12/04/17 18:00 81 25 138/54 (82) 98 12/04/17 17:03 70 23 35 12/04/17 17:00 21 Mechanical Ventilator 35 12/04/17 17:00 98.4 71 20 106/59 (75) 97 12/04/17 16:27 98.4 12/04/17 16:00 70 26 106/56 (73) 98 12/04/17 16:00 Mechanical Ventilator 12/04/17 16:00 74 12/04/17 16:00 35 12/04/17 15:57 22 35 12/04/17 15:20 73 21 35 12/04/17 15:00 69 26 98/58 (71) 98 12/04/17 15:00 20 Mechanical Ventilator 35 12/04/17 14:00 71 26 105/53 (70) 96 12/04/17 14:00 21 Mechanical Ventilator 35 12/04/17 13:01 73 25 35 12/04/17 13:00 20 Mechanical Ventilator 35 12/04/17 13:00 98.6 71 20 105/58 (74) 97 12/04/17 12:00 75 12/04/17 12:00 35 12/04/17 12:00 21 Mechanical Ventilator 35 12/04/17 12:00 74 20 94/53 (67) 96 12/04/17 12:00 Mechanical Ventilator 12/04/17 11:00 22 Mechanical Ventilator 35 12/04/17 11:00 70 21 100/50 (67) 97 12/04/17 10:40 71 22 35 10/29/18 10:00 22 Mechanical Ventilator 35 12/04/17 10:00 72 22 99/52 (68) 97 12/04/17 09:14 73 27 35 12/04/17 09:00 73 24 110/54 (72) 98 12/04/17 09:00 24 Mechanical Ventilator 35 12/04/17 08:46 102/52 12/04/17 08:00 35 12/04/17 08:00 72 12/04/17 08:00 29 Mechanical Ventilator 35 12/04/17 08:00 98.2 73 29 102/52 (69) 100 12/04/17 08:00 Mechanical Ventilator 12/04/17 07:56 35 12/04/17 07:50 30 12/04/17 07:25 73 28 35 12/04/17 07:00 33 Mechanical Ventilator 35 12/04/17 07:00 74 33 118/52 (74) 100 12/04/17 06:00 Mechanical Ventilator 35 12/04/17 06:00 71 30 99/58 (72) 100 12/04/17 05:00 36 Mechanical Ventilator 35 12/04/17 05:00 77 32 123/57 (79) 100 12/04/17 04:55 76 31 35 12/04/17 04:00 Mechanical Ventilator 12/04/17 04:00 98.9 88 35 109/58 (75) 100 12/04/17 04:00 71 12/04/17 04:00 32 Mechanical Ventilator 35 12/04/17 04:00 35 12/04/17 03:00 88 31 119/58 (78) 100 12/04/17 03:00 32 Mechanical Ventilator 35 12/04/17 02:35 84 34 35 12/04/17 02:00 85 37 135/64 (87) 100 12/04/17 01:38 36 Mechanical Ventilator 35 12/04/17 01:00 83 36 122/61 (81) 100 12/04/17 00:59 81 32 35 12/04/17 00:00 Mechanical Ventilator 12/04/17 00:00 82 12/04/17 00:00 98.2 82 29 118/60 (79) 100 12/04/17 00:00 35 12/03/17 23:25 83 30 35 12/03/17 23:00 84 32 121/44 (69) 100 12/03/17 22:00 89 25 116/56 (76) 100 12/03/17 21:08 89 31 35 12/03/17 21:00 91 32 146/56 (86) 100 Intake and Output 12/03/17 12/04/17 18:59 06:59 Intake Total 3739.0 ml 2120 ml Output Total 495 ml 636 ml Balance 3244.0 ml 1484 ml Free Water 700 ml 100 ml IV Total 2709.0 ml 1660 ml Tube Feeding 330 ml 360 ml Output Urine Total 495 ml 636 ml # Bowel Movements 11 3 Laboratory Tests Test 12/04/17 04:00 12/04/17 07:50 White Blood Count 16.4 K/UL (4.8-10.8) H Red Blood Count 3.41 M/UL (4.70-6.10) L Hemoglobin 8.9 G/DL (14.2-18.0) L Hematocrit 27.9 % (42.0-52.0) L Mean Corpuscular Volume 82 FL (80-99) Mean Corpuscular Hemoglobin 26.0 PG (27.0-31.0) L Mean Corpuscular Hemoglobin Concent 31.7 G/DL (32.0-36.0) L Red Cell Distribution Width 15.8 % (11.6-14.8) H Platelet Count 106 K/UL (150-450) L Mean Platelet Volume 10.1 FL (6.5-10.1) Neutrophils (%) (Auto) % (45.0-75.0) Lymphocytes (%) (Auto) % (20.0-45.0) Monocytes (%) (Auto) % (1.0-10.0) Eosinophils (%) (Auto) % (0.0-3.0) Basophils (%) (Auto) % (0.0-2.0) Differential Total Cells Counted 100 Neutrophils % (Manual) 81 % (45-75) H Lymphocytes % (Manual) 7 % (20-45) L Monocytes % (Manual) 8 % (1-10) Eosinophils % (Manual) 3 % (0-3) Basophils % (Manual) 1 % (0-2) Band Neutrophils 0 % (0-8) Platelet Estimate Decreased L Platelet Morphology Normal Hypochromasia 2+ Anisocytosis 1+ Sodium Level 154 MMOL/L (136-145) #H Potassium Level 2.7 MMOL/L (3.5-5.1) *L Chloride Level 124 MMOL/L (98-107) H Carbon Dioxide Level 16 MMOL/L (21-32) L Anion Gap 14 mmol/L (5-15) Blood Urea Nitrogen 63 mg/dL (7-18) H Creatinine 2.3 MG/DL (0.55-1.30) H Estimat Glomerular Filtration Rate mL/min (>60) Glucose Level 203 MG/DL (74-106) H Uric Acid 5.7 MG/DL (2.6-7.2) Calcium Level 6.1 MG/DL (8.5-10.1) L Phosphorus Level 3.1 MG/DL (2.5-4.9) Magnesium Level 2.0 MG/DL (1.8-2.4) Total Bilirubin 0.5 MG/DL (0.2-1.0) Aspartate Amino Transf (AST/SGOT) 166 U/L (15-37) H Alanine Aminotransferase (ALT/SGPT) 212 U/L (12-78) H Alkaline Phosphatase 77 U/L (46-116) Total Creatine Kinase 7653 U/L (26-308) H Troponin I 0.233 ng/mL (0.000-0.056) C-Reactive Protein, Quantitative 17.6 mg/dL (0.00-0.90) H Pro-B-Type Natriuretic Peptide 1135 pg/mL (0-125) H Total Protein 5.8 G/DL (6.4-8.2) L Albumin 2.0 G/DL (3.4-5.0) L Globulin 3.8 g/dL Albumin/Globulin Ratio 0.5 (1.0-2.7) L Amylase Level 123 U/L (25-115) H Lipase 1055 U/L (73-393) H Random Vancomycin Level < 2.0 ug/mL Arterial Blood pH 7.349 (7.350-7.450) Arterial Blood Partial Pressure CO2 25.3 mmHg (35.0-45.0) L Arterial Blood Partial Pressure O2 74.8 mmHg (75.0-100.0) L Arterial Blood HCO3 13.6 mmol/L (22.0-26.0) *L Arterial Blood Oxygen Saturation 94.2 % (95-100) L Arterial Blood Base Excess -10.7 (-2-2) *L Ebenezer Test Positive Height (Feet): 5 Height (Inches): 5.00 Weight (Pounds): 146 Medications Current Medications Medications (Trade) Dose Ordered Sig/Ruthie Route PRN Reason Start Time Stop Time Status Last Admin Dose Admin Aspirin (ASA) 162 mg DAILY NG 12/02/17 09:00 01/01/18 08:59 12/04/17 08:25 Chlorhexidine Gluconate (Rachael-Hex 2%) 1 applic DAILY@2000 TOPIC 12/04/17 20:00 01/03/18 19:59 12/04/17 19:54 Dextrose (Dextrose 50%) 25 ml Q30M PRN IV Hypoglycemia 12/04/17 07:00 01/03/18 06:59 Dextrose (Dextrose 50%) 50 ml Q30M PRN IV Hypoglycemia 12/04/17 07:00 01/03/18 06:59 Dextrose/ Electrolytes 1,000 ml @ 100 mls/hr Q10H IV 12/04/17 11:00 01/03/18 10:59 12/04/17 11:36 Fentanyl Citrate 1000 mcg/Sodium Chloride 100 ml @ 0 mls/hr Q24H PRN IV Restlessness 12/03/17 21:00 12/10/17 20:59 12/04/17 15:57 Heparin Sodium (Porcine) (Heparin 5000 units/ml) 5,000 units EVERY 12 HOURS SUBQ 12/01/17 21:00 12/31/17 20:59 12/03/17 20:16 Insulin Aspart (NovoLOG) Q4HR SUBQ 12/02/17 21:00 01/01/18 20:59 12/04/17 17:30 Insulin Detemir (Levemir) 8 units BID SUBQ 12/04/17 09:00 01/03/18 08:59 12/04/17 17:29 Lidocaine HCl (Xylocaine 1% 30ml) 30 ml ONCE INJ 12/04/17 12:00 12/06/17 11:59 Loperamide HCl (Imodium) 2 mg Q6H PRN NG Diarrhea 12/03/17 08:30 01/02/18 08:29 12/03/17 13:14 Midazolam HCl (Versed 2mg/2ml vial) 2 mg Q2H PRN IVP Agitation 12/04/17 11:00 01/03/18 10:59 Midodrine (Pro-Amatine) 5 mg THREE TIMES A DAY GT 12/04/17 13:00 01/02/18 17:59 12/04/17 17:27 Nitroglycerin (Ntg) 1 patch Q24H TDERMAL 12/02/17 09:00 01/01/18 08:59 12/02/17 09:37 Pantoprazole (Protonix) 40 mg EVERY 12 HOURS IVP 12/01/17 21:00 12/31/17 20:59 12/04/17 08:25 Piperacillin Sod/ Tazobactam Sod 3.375 gm/Sodium Chloride 110 ml @ 27.5 mls/hr Q12HR IVPB 12/01/17 18:30 12/08/17 18:29 12/04/17 08:32 Sennosides (Senokot) 2 tab DAILY GT 12/02/17 09:00 01/01/18 08:59 12/03/17 09:45 Sucralfate (Carafate) 1 gm FOUR TIMES A DAY GT 12/01/17 18:00 12/31/17 17:59 12/04/17 17:27 Assessment/Plan Problem List: (1) Encephalopathy due to metabolic factor or toxin SNOMED: 732830102 Assessment/Plan seroquel Lauren Locke MD Dec 04, 2017 20:27
--- NOTE | 2017-12-04 22:43 | Cardiology Progress Note ---
Assessment/Plan Assessment/Plan 1. Septic shock in combination with hypovolemic shock, serum Na down to 154, continue IV fluid. Continue Midodrine. 2. Sinus tachycardia, resolved, most likely secondary to severe intravascular volume depletion, currently on appropriate fluid administration. 3. Slight elevation of troponin I level could be of a variety of etiologies in this patient, although dip-TE-llnaadvfk myocardial infarction type 2 due to demand ischemia should be considered. Continue ASA and statins. Subjective Subjective Sinus rhythm at rate of 74. Objective Last 24 Hour Vital Signs Date Time Temp Pulse Resp B/P (MAP) Pulse Ox O2 Delivery O2 Flow Rate FiO2 12/04/17 22:00 31 Mechanical Ventilator 35 12/04/17 22:00 76 31 130/58 (82) 99 12/04/17 21:30 74 26 121/58 (79) 100 12/04/17 21:09 76 28 35 12/04/17 21:00 26 Mechanical Ventilator 35 12/04/17 21:00 74 26 116/49 (71) 100 12/04/17 20:30 72 25 123/57 (79) 100 12/04/17 20:01 71 12/04/17 20:00 35 12/04/17 20:00 Mechanical Ventilator 12/04/17 20:00 25 Mechanical Ventilator 35 12/04/17 20:00 98.5 71 25 102/57 (72) 99 12/04/17 19:30 71 25 113/53 (73) 99 12/04/17 19:10 73 24 35 12/04/17 19:00 Mechanical Ventilator 35 12/04/17 19:00 73 25 108/51 (70) 98 12/04/17 18:00 20 Mechanical Ventilator 35 12/04/17 18:00 81 25 138/54 (82) 98 12/04/17 17:03 70 23 35 12/04/17 17:00 21 Mechanical Ventilator 35 12/04/17 17:00 98.4 71 20 106/59 (75) 97 12/04/17 16:27 98.4 12/04/17 16:00 70 26 106/56 (73) 98 12/04/17 16:00 Mechanical Ventilator 12/04/17 16:00 74 12/04/17 16:00 35 12/04/17 15:57 22 35 12/04/17 15:20 73 21 35 12/04/17 15:00 69 26 98/58 (71) 98 12/04/17 15:00 20 Mechanical Ventilator 35 12/04/17 14:00 71 26 105/53 (70) 96 12/04/17 14:00 21 Mechanical Ventilator 35 12/04/17 13:01 73 25 35 12/04/17 13:00 20 Mechanical Ventilator 35 12/04/17 13:00 98.6 71 20 105/58 (74) 97 12/04/17 12:00 75 12/04/17 12:00 35 12/04/17 12:00 21 Mechanical Ventilator 35 12/04/17 12:00 74 20 94/53 (67) 96 12/04/17 12:00 Mechanical Ventilator 12/04/17 11:00 22 Mechanical Ventilator 35 12/04/17 11:00 70 21 100/50 (67) 97 12/04/17 10:40 71 22 35 12/04/17 10:00 22 Mechanical Ventilator 35 12/04/17 10:00 72 22 99/52 (68) 97 12/04/17 09:14 73 27 35 12/04/17 09:00 73 24 110/54 (72) 98 12/04/17 09:00 24 Mechanical Ventilator 35 12/04/17 08:46 102/52 12/04/17 08:00 35 12/04/17 08:00 72 12/04/17 08:00 29 Mechanical Ventilator 35 12/04/17 08:00 98.2 73 29 102/52 (69) 100 12/04/17 08:00 Mechanical Ventilator 12/04/17 07:56 35 12/04/17 07:50 30 12/04/17 07:25 73 28 35 12/04/17 07:00 33 Mechanical Ventilator 35 12/04/17 07:00 74 33 118/52 (74) 100 12/04/17 06:00 Mechanical Ventilator 35 12/04/17 06:00 71 30 99/58 (72) 100 12/04/17 05:00 36 Mechanical Ventilator 35 12/04/17 05:00 77 32 123/57 (79) 100 12/04/17 04:55 76 31 35 12/04/17 04:00 Mechanical Ventilator 12/04/17 04:00 98.9 88 35 109/58 (75) 100 12/04/17 04:00 71 12/04/17 04:00 32 Mechanical Ventilator 35 12/04/17 04:00 35 12/04/17 03:00 88 31 119/58 (78) 100 12/04/17 03:00 32 Mechanical Ventilator 35 12/04/17 02:35 84 34 35 12/04/17 02:00 85 37 135/64 (87) 100 12/04/17 01:38 36 Mechanical Ventilator 35 12/04/17 01:00 83 36 122/61 (81) 100 12/04/17 00:59 81 32 35 12/04/17 00:00 Mechanical Ventilator 12/04/17 00:00 82 12/04/17 00:00 98.2 82 29 118/60 (79) 100 12/04/17 00:00 35 12/03/17 23:25 83 30 35 12/03/17 23:00 84 32 121/44 (69) 100 Intake and Output 12/03/17 12/04/17 18:59 06:59 Intake Total 3739.0 ml 2120 ml Output Total 495 ml 636 ml Balance 3244.0 ml 1484 ml Free Water 700 ml 100 ml IV Total 2709.0 ml 1660 ml Tube Feeding 330 ml 360 ml Output Urine Total 495 ml 636 ml # Bowel Movements 11 3 Laboratory Tests Test 12/04/17 04:00 12/04/17 07:50 White Blood Count 16.4 K/UL (4.8-10.8) H Red Blood Count 3.41 M/UL (4.70-6.10) L Hemoglobin 8.9 G/DL (14.2-18.0) L Hematocrit 27.9 % (42.0-52.0) L Mean Corpuscular Volume 82 FL (80-99) Mean Corpuscular Hemoglobin 26.0 PG (27.0-31.0) L Mean Corpuscular Hemoglobin Concent 31.7 G/DL (32.0-36.0) L Red Cell Distribution Width 15.8 % (11.6-14.8) H Platelet Count 106 K/UL (150-450) L Mean Platelet Volume 10.1 FL (6.5-10.1) Neutrophils (%) (Auto) % (45.0-75.0) Lymphocytes (%) (Auto) % (20.0-45.0) Monocytes (%) (Auto) % (1.0-10.0) Eosinophils (%) (Auto) % (0.0-3.0) Basophils (%) (Auto) % (0.0-2.0) Differential Total Cells Counted 100 Neutrophils % (Manual) 81 % (45-75) H Lymphocytes % (Manual) 7 % (20-45) L Monocytes % (Manual) 8 % (1-10) Eosinophils % (Manual) 3 % (0-3) Basophils % (Manual) 1 % (0-2) Band Neutrophils 0 % (0-8) Platelet Estimate Decreased L Platelet Morphology Normal Hypochromasia 2+ Anisocytosis 1+ Sodium Level 154 MMOL/L (136-145) #H Potassium Level 2.7 MMOL/L (3.5-5.1) *L Chloride Level 124 MMOL/L (98-107) H Carbon Dioxide Level 16 MMOL/L (21-32) L Anion Gap 14 mmol/L (5-15) Blood Urea Nitrogen 63 mg/dL (7-18) H Creatinine 2.3 MG/DL (0.55-1.30) H Estimat Glomerular Filtration Rate mL/min (>60) Glucose Level 203 MG/DL (74-106) H Uric Acid 5.7 MG/DL (2.6-7.2) Calcium Level 6.1 MG/DL (8.5-10.1) L Phosphorus Level 3.1 MG/DL (2.5-4.9) Magnesium Level 2.0 MG/DL (1.8-2.4) Total Bilirubin 0.5 MG/DL (0.2-1.0) Aspartate Amino Transf (AST/SGOT) 166 U/L (15-37) H Alanine Aminotransferase (ALT/SGPT) 212 U/L (12-78) H Alkaline Phosphatase 77 U/L (46-116) Total Creatine Kinase 7653 U/L (26-308) H Troponin I 0.233 ng/mL (0.000-0.056) C-Reactive Protein, Quantitative 17.6 mg/dL (0.00-0.90) H Pro-B-Type Natriuretic Peptide 1135 pg/mL (0-125) H Total Protein 5.8 G/DL (6.4-8.2) L Albumin 2.0 G/DL (3.4-5.0) L Globulin 3.8 g/dL Albumin/Globulin Ratio 0.5 (1.0-2.7) L Amylase Level 123 U/L (25-115) H Lipase 1055 U/L (73-393) H Random Vancomycin Level < 2.0 ug/mL Arterial Blood pH 7.349 (7.350-7.450) Arterial Blood Partial Pressure CO2 25.3 mmHg (35.0-45.0) L Arterial Blood Partial Pressure O2 74.8 mmHg (75.0-100.0) L Arterial Blood HCO3 13.6 mmol/L (22.0-26.0) *L Arterial Blood Oxygen Saturation 94.2 % (95-100) L Arterial Blood Base Excess -10.7 (-2-2) *L Ebenezer Test Positive Microbiology Date/Time Source Procedure Growth Status 12/02/17 04:00 Stool Clostridium difficile Toxin Assay - Final Complete 12/02/17 04:00 Anus Stool Culture - Preliminary Resulted Objective HEENT: Atraumatic and normocephalic. Anicteric. Pupils are equal, round, and reactive to light and accommodation. Dry mucosal membranes. NECK: JVP less than 5 cm. No carotid bruit. Carotid upstrokes 2+ bilaterally. CARDIOVASCULAR: Normal S1, S2. Regular rhythm. Cannot appreciate any murmurs, gallops, or rubs. LUNGS: Diminished breath sounds in both lungs. ABDOMEN: Soft, nontender, and nondistended. Diminished bowel sounds. Presence of G-tube. No hepatosplenomegaly. EXTREMITIES: Contraction and pressure protection. No edema, clubbing, or cyanosis. Luke Estrada MD Dec 04, 2017 22:43
[2017-12-05] VITALS (37 sets, daily range): BP systolic 100–156; BP diastolic 45–71
[2017-12-05] MEDS: NovoLOG Insulin Flexpen SUBQ SCH ×6 (00:34→21:40)
[2017-12-05 06:25] LABS: ALANINE AMINOTRANSFERASE 152 U/L (12-78); ALBUMIN/GLOBULIN RATIO 0.5 (1.0-2.7); ALKALINE PHOSPHATASE 90 U/L (46-116); ANION GAP 12 mmol/L (5-15); ASPARTATE AMINO TRANSFERASE 124 U/L (15-37); BILIRUBIN,TOTAL 0.4 MG/DL (0.2-1.0); BLOOD UREA NITROGEN 42 mg/dL (7-18); CALCIUM 6.1 MG/DL (8.5-10.1); CARBON DIOXIDE 17 MMOL/L (21-32); CHLORIDE 119 MMOL/L (98-107); CREATINE KINASE 6432 U/L (26-308); CREATININE 1.9 MG/DL (0.55-1.30); GAMMA GLUTAMYL TRANSPEPTIDASE 33 U/L (5-85); PHOSPHORUS 2.4 MG/DL (2.5-4.9); POTASSIUM 3.8 MMOL/L (3.5-5.1); SODIUM 148 MMOL/L (136-145)
[2017-12-05] MEDS: D5W w/KCl 20mEq 1,000 ML IV SCH ×2 (06:32→17:47)
[2017-12-05 07:55] LABS: BASOPHILS % (AUTO) 0.3 % (0.0-2.0); EOSINOPHILS % (AUTO) 2.2 % (0.0-3.0); HEMATOCRIT 27.3 % (42.0-52.0); HEMOGLOBIN 8.9 G/DL (14.2-18.0); MEAN CORPUSCULAR VOLUME 80 FL (80-99); MONOCYTES % (AUTO) 4.1 % (1.0-10.0); NEUTROPHILS % (AUTO) 84.3 % (45.0-75.0); PLATELET COUNT 108 K/UL (150-450); RED BLOOD COUNT 3.39 M/UL (4.70-6.10); RED CELL DISTRIBUTION WIDTH 15.1 % (11.6-14.8); WHITE BLOOD COUNT 12.2 K/UL (4.8-10.8)
--- NOTE | 2017-12-05 08:02 | General Progress Note ---
Assessment/Plan Problem List: (1) Renal failure (ARF), acute on chronic ICD Codes: N17.9 - Acute kidney failure, unspecified; N18.9 - Chronic kidney disease, unspecified SNOMED: 279561879 Qualifiers: Qualified Codes: N17.9 - Acute kidney failure, unspecified; N18.3 - Chronic kidney disease, stage 3 (moderate) (2) NSTEMI (non-ST elevated myocardial infarction) ICD Codes: I21.4 - Non-ST elevation (NSTEMI) myocardial infarction SNOMED: 581323909 (3) Hypernatremia ICD Codes: E87.0 - Hyperosmolality and hypernatremia SNOMED: 08631753 (4) DM (5) Rhabdomyolysis ICD Codes: M62.82 - Rhabdomyolysis SNOMED: 383091998 (6) Hypoxemia ICD Codes: R09.02 - Hypoxemia SNOMED: 337863236 (7) Severe sepsis ICD Codes: A41.9 - Sepsis, unspecified organism; R65.20 - Severe sepsis without septic shock SNOMED: 77386588 Assessment/Plan glucose values improved TF tolerated continue Levemir 8 units bid continue NISS every 4 hours Subjective ROS Limited/Unobtainable: Yes Allergies: Coded Allergies: TERAZOSIN (Verified Allergy, Unknown, 10/27/17) Subjective intubated in ICU events noted Objective Last 24 Hour Vital Signs Date Time Temp Pulse Resp B/P (MAP) Pulse Ox O2 Delivery O2 Flow Rate FiO2 12/05/17 07:06 82 27 35 12/05/17 07:00 83 28 132/67 (88) 100 12/05/17 07:00 26 Mechanical Ventilator 35 12/05/17 07:00 28 Mechanical Ventilator 35 12/05/17 06:30 79 28 122/59 (80) 99 12/05/17 06:00 81 30 123/60 (81) 100 12/05/17 06:00 30 Mechanical Ventilator 35 12/05/17 05:30 80 27 129/58 (81) 98 12/05/17 05:03 78 29 35 12/05/17 05:00 79 28 117/52 (73) 99 12/05/17 05:00 28 Mechanical Ventilator 35 12/05/17 04:30 80 27 112/61 (78) 98 12/05/17 04:00 35 12/05/17 04:00 Mechanical Ventilator 10/30/18 04:00 98.8 83 30 156/64 (94) 97 12/05/17 04:00 30 Mechanical Ventilator 35 12/05/17 03:59 87 12/05/17 03:30 78 26 119/58 (78) 98 12/05/17 03:08 79 26 35 12/05/17 03:00 79 26 119/55 (76) 98 12/05/17 03:00 26 Mechanical Ventilator 35 12/05/17 02:30 79 26 104/54 (71) 98 12/05/17 02:00 28 Mechanical Ventilator 35 12/05/17 02:00 80 28 116/55 (75) 98 12/05/17 01:30 79 27 119/57 (77) 98 12/05/17 01:00 79 27 118/58 (78) 98 12/05/17 01:00 28 Mechanical Ventilator 35 12/05/17 00:57 76 26 35 12/05/17 00:30 73 28 116/53 (74) 100 12/05/17 00:00 Mechanical Ventilator 12/05/17 00:00 99.1 74 31 106/51 (69) 100 12/05/17 00:00 35 12/05/17 00:00 31 Mechanical Ventilator 35 12/04/17 23:59 73 12/04/17 23:30 74 31 96/49 (65) 100 12/04/17 23:02 74 30 35 12/04/17 23:00 74 31 108/46 (66) 99 12/04/17 23:00 31 Mechanical Ventilator 35 12/04/17 22:00 31 Mechanical Ventilator 35 12/04/17 22:00 76 31 130/58 (82) 99 12/04/17 21:30 74 26 121/58 (79) 100 12/04/17 21:09 76 28 35 12/04/17 21:00 26 Mechanical Ventilator 35 12/04/17 21:00 74 26 116/49 (71) 100 12/04/17 20:30 72 25 123/57 (79) 100 12/04/17 20:01 71 12/04/17 20:00 35 12/04/17 20:00 Mechanical Ventilator 12/04/17 20:00 25 Mechanical Ventilator 35 12/04/17 20:00 98.5 71 25 102/57 (72) 99 12/04/17 19:30 71 25 113/53 (73) 99 12/04/17 19:10 73 24 35 12/04/17 19:00 Mechanical Ventilator 35 12/04/17 19:00 73 25 108/51 (70) 98 12/04/17 18:00 20 Mechanical Ventilator 35 12/04/17 18:00 81 25 138/54 (82) 98 12/04/17 17:03 70 23 35 12/04/17 17:00 21 Mechanical Ventilator 35 12/04/17 17:00 98.4 71 20 106/59 (75) 97 12/04/17 16:27 98.4 12/04/17 16:00 70 26 106/56 (73) 98 12/04/17 16:00 Mechanical Ventilator 12/04/17 16:00 74 12/04/17 16:00 35 12/04/17 15:57 22 35 12/04/17 15:20 73 21 35 12/04/17 15:00 69 26 98/58 (71) 98 12/04/17 15:00 20 Mechanical Ventilator 35 12/04/17 14:00 71 26 105/53 (70) 96 12/04/17 14:00 21 Mechanical Ventilator 35 12/04/17 13:01 73 25 35 12/04/17 13:00 20 Mechanical Ventilator 35 12/04/17 13:00 98.6 71 20 105/58 (74) 97 12/04/17 12:00 75 12/04/17 12:00 35 12/04/17 12:00 21 Mechanical Ventilator 35 12/04/17 12:00 74 20 94/53 (67) 96 12/04/17 12:00 Mechanical Ventilator 12/04/17 11:00 22 Mechanical Ventilator 35 12/04/17 11:00 70 21 100/50 (67) 97 12/04/17 10:40 71 22 35 12/04/17 10:00 22 Mechanical Ventilator 35 12/04/17 10:00 72 22 99/52 (68) 97 12/04/17 09:14 73 27 35 12/04/17 09:00 73 24 110/54 (72) 98 12/04/17 09:00 24 Mechanical Ventilator 35 12/04/17 08:46 102/52 Intake and Output 12/04/17 12/05/17 19:00 07:00 Intake Total 2941.084 ml 1876.0 ml Output Total 730 ml 1715 ml Balance 2211.084 ml 161.0 ml IV Total 2731.084 ml 1476.0 ml Tube Feeding 210 ml 360 ml Other 40 ml Output Urine Total 730 ml 1615 ml Stool Total 100 ml # Bowel Movements 3 Laboratory Tests 12/05/17 04:57: White Blood Count [Pending], Red Blood Count [Pending], Hemoglobin [Pending], Hematocrit [Pending], Mean Corpuscular Volume [Pending], Mean Corpuscular Hemoglobin [Pending], Mean Corpuscular Hemoglobin Concent [Pending], Red Cell Distribution Width [Pending], Platelet Count [Pending], Mean Platelet Volume [ Pending], Neutrophils (%) (Auto) [Pending], Lymphocytes (%) (Auto) [Pending], Monocytes (%) (Auto) [Pending], Eosinophils (%) (Auto) [Pending], Basophils (%) (Auto) [Pending], Sodium Level 148H, Potassium Level 3.8, Chloride Level 119H, Carbon Dioxide Level 17L, Anion Gap 12, Blood Urea Nitrogen 42H, Creatinine 1.9H , Estimat Glomerular Filtration Rate , Glucose Level 164H, Uric Acid 4.8, Calcium Level 6.1L, Phosphorus Level 2.4L, Magnesium Level 2.1, Total Bilirubin 0.4, Gamma Glutamyl Transpeptidase 33, Aspartate Amino Transf (AST/SGOT) 124H, Alanine Aminotransferase (ALT/SGPT) 152H, Alkaline Phosphatase 90, Total Creatine Kinase 6432H, Troponin I 0.134H, Pro-B-Type Natriuretic Peptide 2948H, Total Protein 5.7L, Albumin 2.0L, Globulin 3.7, Albumin/Globulin Ratio 0.5L, Random Vancomycin Level 10.3 Height (Feet): 5 Height (Inches): 5.00 Weight (Pounds): 152 General Appearance: other - intubated EENT: other - ETT Neck: normal alignment Cardiovascular: normal rate Respiratory/Chest: decreased breath sounds Abdomen: normal bowel sounds, other - PEG Edema: 1+ Arm (L), 1+ Arm (R), 1+ Leg (L), 1+ Leg (R), 1+ Pedal (L), 1+ Pedal ( R), 1+ Generalized Objective Current Medications Medications (Trade) Dose Ordered Sig/Ruthie Route PRN Reason Start Time Stop Time Status Last Admin Dose Admin Aspirin (ASA) 162 mg DAILY NG 12/02/17 09:00 01/01/18 08:59 12/04/17 08:25 Chlorhexidine Gluconate (Rachael-Hex 2%) 1 applic DAILY@2000 TOPIC 12/04/17 20:00 01/03/18 19:59 12/04/17 19:54 Dextrose (Dextrose 50%) 25 ml Q30M PRN IV Hypoglycemia 12/04/17 07:00 01/03/18 06:59 Dextrose (Dextrose 50%) 50 ml Q30M PRN IV Hypoglycemia 12/04/17 07:00 01/03/18 06:59 Dextrose/ Electrolytes 1,000 ml @ 100 mls/hr Q10H IV 12/04/17 11:00 01/03/18 10:59 12/05/17 06:32 Fentanyl Citrate 1000 mcg/Sodium Chloride 100 ml @ 0 mls/hr Q24H PRN IV Restlessness 12/03/17 21:00 12/10/17 20:59 12/04/17 15:57 Heparin Sodium (Porcine) (Heparin 5000 units/ml) 5,000 units EVERY 12 HOURS SUBQ 12/01/17 21:00 12/31/17 20:59 12/03/17 20:16 Insulin Aspart (NovoLOG) Q4HR SUBQ 12/02/17 21:00 01/01/18 20:59 12/05/17 04:41 Insulin Detemir (Levemir) 8 units BID SUBQ 12/04/17 09:00 01/03/18 08:59 12/04/17 17:29 Lidocaine HCl (Xylocaine 1% 30ml) 30 ml ONCE INJ 12/04/17 12:00 12/06/17 11:59 Loperamide HCl (Imodium) 2 mg Q6H PRN NG Diarrhea 12/03/17 08:30 01/02/18 08:29 12/03/17 13:14 Midodrine (Pro-Amatine) 5 mg THREE TIMES A DAY GT 12/04/17 13:00 01/02/18 17:59 12/04/17 17:27 Nitroglycerin (Ntg) 1 patch Q24H TDERMAL 12/02/17 09:00 01/01/18 08:59 12/02/17 09:37 Pantoprazole (Protonix) 40 mg EVERY 12 HOURS IVP 12/01/17 21:00 12/31/17 20:59 12/04/17 20:43 Piperacillin Sod/ Tazobactam Sod 3.375 gm/Sodium Chloride 110 ml @ 27.5 mls/hr Q12HR IVPB 12/01/17 18:30 12/08/17 18:29 12/04/17 20:46 Quetiapine Fumarate (SEROquel) 12.5 mg Q4H PRN GT agitation 12/04/17 20:45 01/03/18 20:29 Sennosides (Senokot) 2 tab DAILY GT 12/02/17 09:00 01/01/18 08:59 12/03/17 09:45 Sucralfate (Carafate) 1 gm FOUR TIMES A DAY GT 12/01/17 18:00 12/31/17 17:59 12/04/17 20:49 Item Value Date Time Bedside Blood Glucose 166 mg/dl H 12/05/17 0441 Bedside Blood Glucose 173 mg/dl H 12/05/17 0034 Bedside Blood Glucose 156 mg/dl H 12/04/17 2045 Bedside Blood Glucose 140 mg/dl H 12/04/17 1730 Bedside Blood Glucose 116 mg/dl 12/04/17 1234 Bedside Blood Glucose 222 mg/dl H 12/04/17 0845 Bedside Blood Glucose 225 mg/dl H 12/04/17 0501 Stefan Leon MD Dec 05, 2017 08:02
[2017-12-05] MEDS: Piperacillin/Tazobactam 3.375 GM in NS 110 ML IVPB SCH ×2 (08:34→22:00)
[2017-12-05] MEDS: Pantoprazole Inj IVP SCH ×2 (08:34→21:39)
[2017-12-05] MEDS: Sucralfate 1gm tab GT SCH ×4 (08:34→21:39)
[2017-12-05] MEDS: Sennosides 8.6mg tab GT SCH (08:34)
[2017-12-05] MEDS: Aspirin Baby 81mg NG SCH (08:35)
[2017-12-05] MEDS: Nitroglycerin Patch 0.4mg TDERMAL SCH (08:37)
[2017-12-05] MEDS: Levemir Flexpen SUBQ SCH ×2 (08:39→17:45)
[2017-12-05] MEDS: Heparin 5000 units/ml inj SUBQ SCH ×2 (08:39→21:39)
--- NOTE | 2017-12-05 11:11 | Infectious Diseases Prog Note ---
Assessment/Plan Assessment/Plan A; Sepsis, SIRS Pancreatitis Rhabdomyolysis Acute respiratory failure Acute renal failure improving Dehydration P: Continue Zosyn Subjective ROS Limited/Unobtainable: Yes Cardiovascular: Reports: other - PICC line was placed femoral line is removed Allergies: Coded Allergies: TERAZOSIN (Verified Allergy, Unknown, 10/27/17) Objective Vital Signs Last 24 Hour Vital Signs Date Time Temp Pulse Resp B/P (MAP) Pulse Ox O2 Delivery O2 Flow Rate FiO2 12/05/17 10:35 28 Mechanical Ventilator 35 12/05/17 10:00 81 27 127/52 (77) 99 12/05/17 10:00 25 Mechanical Ventilator 35 12/05/17 09:51 35 12/05/17 09:30 77 26 100/48 (65) 99 12/05/17 09:00 25 Mechanical Ventilator 35 12/05/17 09:00 77 26 119/58 (78) 99 12/05/17 08:37 108/58 12/05/17 08:35 82 27 35 12/05/17 08:30 80 27 125/60 (81) 99 12/05/17 08:30 35 12/05/17 08:00 79 29 121/53 (75) 100 12/05/17 08:00 35 12/05/17 08:00 Mechanical Ventilator 12/05/17 08:00 79 12/05/17 08:00 25 Mechanical Ventilator 35 12/05/17 07:30 78 27 121/53 (75) 99 12/05/17 07:06 82 27 35 12/05/17 07:00 83 28 132/67 (88) 100 12/05/17 07:00 26 Mechanical Ventilator 35 12/05/17 07:00 28 Mechanical Ventilator 35 12/05/17 06:30 79 28 122/59 (80) 99 12/05/17 06:00 81 30 123/60 (81) 100 12/05/17 06:00 30 Mechanical Ventilator 35 12/05/17 05:30 80 27 129/58 (81) 98 12/05/17 05:03 78 29 35 12/05/17 05:00 79 28 117/52 (73) 99 12/05/17 05:00 28 Mechanical Ventilator 35 12/05/17 04:30 80 27 112/61 (78) 98 12/05/17 04:00 35 12/05/17 04:00 Mechanical Ventilator 12/05/17 04:00 98.8 83 30 156/64 (94) 97 12/05/17 04:00 30 Mechanical Ventilator 35 12/05/17 03:59 87 12/05/17 03:30 78 26 119/58 (78) 98 12/05/17 03:08 79 26 35 12/05/17 03:00 79 26 119/55 (76) 98 12/05/17 03:00 26 Mechanical Ventilator 35 12/05/17 02:30 79 26 104/54 (71) 98 12/05/17 02:00 28 Mechanical Ventilator 35 12/05/17 02:00 80 28 116/55 (75) 98 12/05/17 01:30 79 27 119/57 (77) 98 12/05/17 01:00 79 27 118/58 (78) 98 12/05/17 01:00 28 Mechanical Ventilator 35 12/05/17 00:57 76 26 35 12/05/17 00:30 73 28 116/53 (74) 100 12/05/17 00:00 Mechanical Ventilator 12/05/17 00:00 99.1 74 31 106/51 (69) 100 12/05/17 00:00 35 12/05/17 00:00 31 Mechanical Ventilator 35 12/04/17 23:59 73 12/04/17 23:30 74 31 96/49 (65) 100 12/04/17 23:02 74 30 35 12/04/17 23:00 74 31 108/46 (66) 99 12/04/17 23:00 31 Mechanical Ventilator 35 12/04/17 22:00 31 Mechanical Ventilator 35 12/04/17 22:00 76 31 130/58 (82) 99 12/04/17 21:30 74 26 121/58 (79) 100 12/04/17 21:09 76 28 35 12/04/17 21:00 26 Mechanical Ventilator 35 12/04/17 21:00 74 26 116/49 (71) 100 12/04/17 20:30 72 25 123/57 (79) 100 12/04/17 20:01 71 12/04/17 20:00 35 12/04/17 20:00 Mechanical Ventilator 12/04/17 20:00 25 Mechanical Ventilator 35 12/04/17 20:00 98.5 71 25 102/57 (72) 99 10/29/18 19:30 71 25 113/53 (73) 99 12/04/17 19:10 73 24 35 12/04/17 19:00 Mechanical Ventilator 35 12/04/17 19:00 73 25 108/51 (70) 98 12/04/17 18:00 20 Mechanical Ventilator 35 12/04/17 18:00 81 25 138/54 (82) 98 12/04/17 17:03 70 23 35 12/04/17 17:00 21 Mechanical Ventilator 35 12/04/17 17:00 98.4 71 20 106/59 (75) 97 12/04/17 16:27 98.4 12/04/17 16:00 70 26 106/56 (73) 98 12/04/17 16:00 Mechanical Ventilator 12/04/17 16:00 74 12/04/17 16:00 35 12/04/17 15:57 22 35 12/04/17 15:20 73 21 35 12/04/17 15:00 69 26 98/58 (71) 98 12/04/17 15:00 20 Mechanical Ventilator 35 12/04/17 14:00 71 26 105/53 (70) 96 12/04/17 14:00 21 Mechanical Ventilator 35 12/04/17 13:01 73 25 35 12/04/17 13:00 20 Mechanical Ventilator 35 12/04/17 13:00 98.6 71 20 105/58 (74) 97 12/04/17 12:00 75 12/04/17 12:00 35 12/04/17 12:00 21 Mechanical Ventilator 35 12/04/17 12:00 74 20 94/53 (67) 96 12/04/17 12:00 Mechanical Ventilator Height (Feet): 5 Height (Inches): 5.00 Weight (Pounds): 152 HEENT: other - orally intubated Respiratory/Chest: other - tachpneic, on ventilator Cardiovascular: normal rate, other - left arm PICC line Abdomen: soft, non tender, other - rectal tube Extremities: other - edema Skin: ulcers Neurologic/Psychiatric: aphasia, other - opens eyes Laboratory Tests Test 12/05/17 04:57 White Blood Count 12.2 K/UL (4.8-10.8) H Red Blood Count 3.39 M/UL (4.70-6.10) L Hemoglobin 8.9 G/DL (14.2-18.0) L Hematocrit 27.3 % (42.0-52.0) L Mean Corpuscular Volume 80 FL (80-99) Mean Corpuscular Hemoglobin 26.2 PG (27.0-31.0) L Mean Corpuscular Hemoglobin Concent 32.6 G/DL (32.0-36.0) Red Cell Distribution Width 15.1 % (11.6-14.8) H Platelet Count 108 K/UL (150-450) L Mean Platelet Volume 9.2 FL (6.5-10.1) Neutrophils (%) (Auto) 84.3 % (45.0-75.0) H Lymphocytes (%) (Auto) 9.0 % (20.0-45.0) L Monocytes (%) (Auto) 4.1 % (1.0-10.0) Eosinophils (%) (Auto) 2.2 % (0.0-3.0) Basophils (%) (Auto) 0.3 % (0.0-2.0) Sodium Level 148 MMOL/L (136-145) H Potassium Level 3.8 MMOL/L (3.5-5.1) Chloride Level 119 MMOL/L (98-107) H Carbon Dioxide Level 17 MMOL/L (21-32) L Anion Gap 12 mmol/L (5-15) Blood Urea Nitrogen 42 mg/dL (7-18) H Creatinine 1.9 MG/DL (0.55-1.30) H Estimat Glomerular Filtration Rate mL/min (>60) Glucose Level 164 MG/DL (74-106) H Uric Acid 4.8 MG/DL (2.6-7.2) Calcium Level 6.1 MG/DL (8.5-10.1) L Phosphorus Level 2.4 MG/DL (2.5-4.9) L Magnesium Level 2.1 MG/DL (1.8-2.4) Total Bilirubin 0.4 MG/DL (0.2-1.0) Gamma Glutamyl Transpeptidase 33 U/L (5-85) Aspartate Amino Transf (AST/SGOT) 124 U/L (15-37) H Alanine Aminotransferase (ALT/SGPT) 152 U/L (12-78) H Alkaline Phosphatase 90 U/L (46-116) Total Creatine Kinase 6432 U/L (26-308) H Troponin I 0.134 ng/mL (0.000-0.056) Pro-B-Type Natriuretic Peptide 2948 pg/mL (0-125) H Total Protein 5.7 G/DL (6.4-8.2) L Albumin 2.0 G/DL (3.4-5.0) L Globulin 3.7 g/dL Albumin/Globulin Ratio 0.5 (1.0-2.7) L Random Vancomycin Level 10.3 ug/mL Current Medications Medications (Trade) Dose Ordered Sig/Ruthie Route PRN Reason Start Time Stop Time Status Last Admin Dose Admin Aspirin (ASA) 162 mg DAILY NG 12/02/17 09:00 01/01/18 08:59 12/05/17 08:35 Chlorhexidine Gluconate (Rachael-Hex 2%) 1 applic DAILY@2000 TOPIC 12/04/17 20:00 01/03/18 19:59 12/04/17 19:54 Dextrose (Dextrose 50%) 25 ml Q30M PRN IV Hypoglycemia 12/04/17 07:00 01/03/18 06:59 Dextrose (Dextrose 50%) 50 ml Q30M PRN IV Hypoglycemia 12/04/17 07:00 01/03/18 06:59 Dextrose/ Electrolytes 1,000 ml @ 100 mls/hr Q10H IV 12/04/17 11:00 01/03/18 10:59 12/05/17 06:32 Fentanyl Citrate 1000 mcg/Sodium Chloride 100 ml @ 0 mls/hr Q24H PRN IV Restlessness 12/03/17 21:00 12/10/17 20:59 12/05/17 10:35 Heparin Sodium (Porcine) (Heparin 5000 units/ml) 5,000 units EVERY 12 HOURS SUBQ 12/01/17 21:00 12/31/17 20:59 12/05/17 08:39 Insulin Aspart (NovoLOG) Q4HR SUBQ 12/02/17 21:00 01/01/18 20:59 12/05/17 08:40 Insulin Detemir (Levemir) 8 units BID SUBQ 12/04/17 09:00 01/03/18 08:59 12/05/17 08:39 Lidocaine HCl (Xylocaine 1% 30ml) 30 ml ONCE INJ 12/04/17 12:00 12/06/17 11:59 Loperamide HCl (Imodium) 2 mg Q6H PRN NG Diarrhea 12/03/17 08:30 01/02/18 08:29 12/03/17 13:14 Midodrine (Pro-Amatine) 5 mg THREE TIMES A DAY GT 12/04/17 13:00 01/02/18 17:59 12/05/17 08:34 Nitroglycerin (Ntg) 1 patch Q24H TDERMAL 12/02/17 09:00 01/01/18 08:59 12/05/17 08:37 Pantoprazole (Protonix) 40 mg EVERY 12 HOURS IVP 12/01/17 21:00 12/31/17 20:59 12/05/17 08:34 Piperacillin Sod/ Tazobactam Sod 3.375 gm/Sodium Chloride 110 ml @ 27.5 mls/hr Q8HR IVPB 12/05/17 09:00 12/12/17 08:59 12/05/17 08:34 Quetiapine Fumarate (SEROquel) 12.5 mg Q4H PRN GT agitation 12/04/17 20:45 01/03/18 20:29 Sucralfate (Carafate) 1 gm FOUR TIMES A DAY GT 12/01/17 18:00 12/31/17 17:59 12/05/17 08:34 Vancomycin HCl/ Dextrose 250 ml @ 166.667 mls/hr Q24H IVPB 12/05/17 13:00 12/10/17 12:59 Anam Cruz MD Dec 05, 2017 11:11
[2017-12-05] MEDS: Lidocaine 1% Plain 30 ml INJ SCH (12:00)
--- NOTE | 2017-12-05 12:02 | Diagnostic Imaging Report ---
Indications: hip pain COMPARISON: 12/01/2017 [facility] Findings: 2 views of both hips were obtained. There is a left hip hemiarthroplasty again noted. There is a partial visualization of a left femoral shaft compression plate. The right hip is unremarkable. The bones are osteopenic. Turner catheter and a right femoral central venous catheter noted. The tip of the right central venous catheter is just above the acetabulum, which may be the lower part of the external iliac vein. This is unchanged in position from the last study. IMPRESSION: No acute injury appreciated
--- NOTE | 2017-12-05 12:34 | Nephrology Progress Note ---
Assessment/Plan Problem List: (1) Renal failure (ARF), acute on chronic (2) Respiratory failure (3) Hypernatremia (4) Rhabdomyolysis (5) DM Assessment Acute respiratory failure- Acute Renal failure- Severe Dehydration PEG Sepsis / UTI / Pneumonia Hypotension- Septic Shock High Lipase Rhabdo- High CPK Elevated Troponin Dementia Plan up dose midodrine- change IV rate- K supplement One dose vanco- check am levels midodrine- monitor CK IV to D5w Vent- Respiratory support Gastric support Antibiotics Monitor renal parameters Poor prognosis Per orders Subjective ROS Limited/Unobtainable: Yes Objective Objective Last 24 Hour Vital Signs Date Time Temp Pulse Resp B/P (MAP) Pulse Ox O2 Delivery O2 Flow Rate FiO2 12/05/17 12:00 88 12/05/17 12:00 98.9 89 30 127/54 (78) 97 12/05/17 11:30 35 12/05/17 11:00 89 28 147/63 (91) 97 12/05/17 10:35 28 Mechanical Ventilator 35 12/05/17 10:00 81 27 127/52 (77) 99 12/05/17 10:00 25 Mechanical Ventilator 35 12/05/17 09:51 35 12/05/17 09:30 77 26 100/48 (65) 99 12/05/17 09:00 25 Mechanical Ventilator 35 12/05/17 09:00 77 26 119/58 (78) 99 12/05/17 08:37 108/58 12/05/17 08:35 82 27 35 12/05/17 08:30 80 27 125/60 (81) 99 12/05/17 08:30 35 12/05/17 08:00 79 29 121/53 (75) 100 12/05/17 08:00 35 12/05/17 08:00 Mechanical Ventilator 12/05/17 08:00 79 12/05/17 08:00 25 Mechanical Ventilator 35 12/05/17 07:30 78 27 121/53 (75) 99 12/05/17 07:06 82 27 35 12/05/17 07:00 83 28 132/67 (88) 100 12/05/17 07:00 26 Mechanical Ventilator 35 12/05/17 07:00 28 Mechanical Ventilator 35 12/05/17 06:30 79 28 122/59 (80) 99 12/05/17 06:00 81 30 123/60 (81) 100 12/05/17 06:00 30 Mechanical Ventilator 35 12/05/17 05:30 80 27 129/58 (81) 98 12/05/17 05:03 78 29 35 12/05/17 05:00 79 28 117/52 (73) 99 12/05/17 05:00 28 Mechanical Ventilator 35 12/05/17 04:30 80 27 112/61 (78) 98 12/05/17 04:00 35 12/05/17 04:00 Mechanical Ventilator 12/05/17 04:00 98.8 83 30 156/64 (94) 97 12/05/17 04:00 30 Mechanical Ventilator 35 12/05/17 03:59 87 12/05/17 03:30 78 26 119/58 (78) 98 12/05/17 03:08 79 26 35 12/05/17 03:00 79 26 119/55 (76) 98 12/05/17 03:00 26 Mechanical Ventilator 35 12/05/17 02:30 79 26 104/54 (71) 98 12/05/17 02:00 28 Mechanical Ventilator 35 12/05/17 02:00 80 28 116/55 (75) 98 12/05/17 01:30 79 27 119/57 (77) 98 12/05/17 01:00 79 27 118/58 (78) 98 12/05/17 01:00 28 Mechanical Ventilator 35 12/05/17 00:57 76 26 35 12/05/17 00:30 73 28 116/53 (74) 100 12/05/17 00:00 Mechanical Ventilator 12/05/17 00:00 99.1 74 31 106/51 (69) 100 12/05/17 00:00 35 12/05/17 00:00 31 Mechanical Ventilator 35 12/04/17 23:59 73 12/04/17 23:30 74 31 96/49 (65) 100 12/04/17 23:02 74 30 35 12/04/17 23:00 74 31 108/46 (66) 99 12/04/17 23:00 31 Mechanical Ventilator 35 12/04/17 22:00 31 Mechanical Ventilator 35 12/04/17 22:00 76 31 130/58 (82) 99 12/04/17 21:30 74 26 121/58 (79) 100 12/04/17 21:09 76 28 35 10/29/18 21:00 26 Mechanical Ventilator 35 12/04/17 21:00 74 26 116/49 (71) 100 12/04/17 20:30 72 25 123/57 (79) 100 12/04/17 20:01 71 12/04/17 20:00 35 12/04/17 20:00 Mechanical Ventilator 12/04/17 20:00 25 Mechanical Ventilator 35 12/04/17 20:00 98.5 71 25 102/57 (72) 99 12/04/17 19:30 71 25 113/53 (73) 99 12/04/17 19:10 73 24 35 12/04/17 19:00 Mechanical Ventilator 35 12/04/17 19:00 73 25 108/51 (70) 98 12/04/17 18:00 20 Mechanical Ventilator 35 12/04/17 18:00 81 25 138/54 (82) 98 12/04/17 17:03 70 23 35 12/04/17 17:00 21 Mechanical Ventilator 35 12/04/17 17:00 98.4 71 20 106/59 (75) 97 12/04/17 16:27 98.4 12/04/17 16:00 70 26 106/56 (73) 98 12/04/17 16:00 Mechanical Ventilator 12/04/17 16:00 74 12/04/17 16:00 35 12/04/17 15:57 22 35 12/04/17 15:20 73 21 35 12/04/17 15:00 69 26 98/58 (71) 98 12/04/17 15:00 20 Mechanical Ventilator 35 12/04/17 14:00 71 26 105/53 (70) 96 12/04/17 14:00 21 Mechanical Ventilator 35 12/04/17 13:01 73 25 35 12/04/17 13:00 20 Mechanical Ventilator 35 12/04/17 13:00 98.6 71 20 105/58 (74) 97 Intake and Output 12/04/17 12/05/17 19:00 07:00 Intake Total 2941.084 ml 1876.0 ml Output Total 730 ml 1715 ml Balance 2211.084 ml 161.0 ml IV Total 2731.084 ml 1476.0 ml Tube Feeding 210 ml 360 ml Other 40 ml Output Urine Total 730 ml 1615 ml Stool Total 100 ml # Bowel Movements 3 Laboratory Tests 12/05/17 04:57: White Blood Count 12.2H, Red Blood Count 3.39L, Hemoglobin 8.9L, Hematocrit 27.3L, Mean Corpuscular Volume 80, Mean Corpuscular Hemoglobin 26.2L, Mean Corpuscular Hemoglobin Concent 32.6, Red Cell Distribution Width 15.1H, Platelet Count 108L, Mean Platelet Volume 9.2, Neutrophils (%) (Auto) 84.3H, Lymphocytes (%) (Auto) 9.0L, Monocytes (%) (Auto) 4.1, Eosinophils (%) (Auto) 2.2, Basophils (%) (Auto) 0.3, Sodium Level 148H, Potassium Level 3.8, Chloride Level 119H, Carbon Dioxide Level 17L, Anion Gap 12, Blood Urea Nitrogen 42H, Creatinine 1.9H, Estimat Glomerular Filtration Rate , Glucose Level 164H, Uric Acid 4.8, Calcium Level 6.1L, Phosphorus Level 2.4L, Magnesium Level 2.1, Total Bilirubin 0.4, Gamma Glutamyl Transpeptidase 33, Aspartate Amino Transf (AST/ SGOT) 124H, Alanine Aminotransferase (ALT/SGPT) 152H, Alkaline Phosphatase 90, Total Creatine Kinase 6432H, Troponin I 0.134H, Pro-B-Type Natriuretic Peptide 2948H, Total Protein 5.7L, Albumin 2.0L, Globulin 3.7, Albumin/Globulin Ratio 0.5L, Random Vancomycin Level 10.3 Height (Feet): 5 Height (Inches): 5.00 Weight (Pounds): 152 General Appearance: no apparent distress Cardiovascular: normal rate Respiratory/Chest: decreased breath sounds Abdomen: soft Objective no other change Randolph Fernandes MD Dec 05, 2017 12:34
[2017-12-05] MEDS ORDERED: Vancomycin 1250mg/D5W 250ml 250 ML IVPB SCH (13:00)
--- NOTE | 2017-12-05 13:43 | GI Progress Note ---
Assessment/Plan Problems: (1) Malnutrition ICD Codes: E46 - Unspecified protein-calorie malnutrition SNOMED: 74742369 (2) Pancreatitis ICD Codes: K85.90 - Acute pancreatitis without necrosis or infection, unspecified SNOMED: 96761621 Qualifiers: Qualified Codes: K85.90 - Acute pancreatitis without necrosis or infection, unspecified (3) Constipation ICD Codes: K59.00 - Constipation, unspecified SNOMED: 01073448 (4) PEG (percutaneous endoscopic gastrostomy) status ICD Codes: Z93.1 - Gastrostomy status SNOMED: 040959965, 239792561 (5) DM (6) Severe sepsis ICD Codes: A41.9 - Sepsis, unspecified organism; R65.20 - Severe sepsis without septic shock SNOMED: 18424193 Status: progressing Status Narrative Discussed with Dr. Coronel. Assessment/Plan KUB reviewed not stable for GI procedures prn transfusions on GTF ,renal 30 cc add imodium prn rectal tube fu nephrology fu labs, hepatitis panel ppi BID trend LFTs The patient was seen and examined at bedside and all new and available data was reviewed in the patients chart. I agree with the above findings, impression and plan. (Patient seen earlier today. Signature stamp does not reflect patient encounter time.). - Juan Coronel MD Subjective Subjective limited Objective Last 24 Hour Vital Signs Date Time Temp Pulse Resp B/P (MAP) Pulse Ox O2 Delivery O2 Flow Rate FiO2 12/05/17 13:13 83 29 35 12/05/17 12:00 88 12/05/17 12:00 30 Mechanical Ventilator 35 12/05/17 12:00 98.9 89 30 127/54 (78) 97 12/05/17 12:00 Mechanical Ventilator 12/05/17 11:33 99 12/05/17 11:30 35 12/05/17 11:30 79 31 35 12/05/17 11:00 89 28 147/63 (91) 97 12/05/17 11:00 25 Mechanical Ventilator 35 12/05/17 10:35 28 Mechanical Ventilator 35 12/05/17 10:00 81 27 127/52 (77) 99 12/05/17 10:00 25 Mechanical Ventilator 35 12/05/17 09:51 35 12/05/17 09:30 77 26 100/48 (65) 99 12/05/17 09:00 25 Mechanical Ventilator 35 12/05/17 09:00 77 26 119/58 (78) 99 12/05/17 08:37 108/58 12/05/17 08:35 82 27 35 12/05/17 08:30 80 27 125/60 (81) 99 12/05/17 08:30 35 12/05/17 08:00 79 29 121/53 (75) 100 12/05/17 08:00 35 12/05/17 08:00 Mechanical Ventilator 12/05/17 08:00 79 12/05/17 08:00 25 Mechanical Ventilator 35 12/05/17 07:30 78 27 121/53 (75) 99 12/05/17 07:06 82 27 35 12/05/17 07:00 83 28 132/67 (88) 100 12/05/17 07:00 26 Mechanical Ventilator 35 12/05/17 07:00 28 Mechanical Ventilator 35 12/05/17 06:30 79 28 122/59 (80) 99 12/05/17 06:00 81 30 123/60 (81) 100 12/05/17 06:00 30 Mechanical Ventilator 35 12/05/17 05:30 80 27 129/58 (81) 98 12/05/17 05:03 78 29 35 12/05/17 05:00 79 28 117/52 (73) 99 12/05/17 05:00 28 Mechanical Ventilator 35 12/05/17 04:30 80 27 112/61 (78) 98 12/05/17 04:00 35 12/05/17 04:00 Mechanical Ventilator 12/05/17 04:00 98.8 83 30 156/64 (94) 97 12/05/17 04:00 30 Mechanical Ventilator 35 12/05/17 03:59 87 12/05/17 03:30 78 26 119/58 (78) 98 12/05/17 03:08 79 26 35 12/05/17 03:00 79 26 119/55 (76) 98 12/05/17 03:00 26 Mechanical Ventilator 35 12/05/17 02:30 79 26 104/54 (71) 98 12/05/17 02:00 28 Mechanical Ventilator 35 12/05/17 02:00 80 28 116/55 (75) 98 12/05/17 01:30 79 27 119/57 (77) 98 12/05/17 01:00 79 27 118/58 (78) 98 12/05/17 01:00 28 Mechanical Ventilator 35 12/05/17 00:57 76 26 35 12/05/17 00:30 73 28 116/53 (74) 100 12/05/17 00:00 Mechanical Ventilator 12/05/17 00:00 99.1 74 31 106/51 (69) 100 12/05/17 00:00 35 12/05/17 00:00 31 Mechanical Ventilator 35 12/04/17 23:59 73 12/04/17 23:30 74 31 96/49 (65) 100 12/04/17 23:02 74 30 35 12/04/17 23:00 74 31 108/46 (66) 99 12/04/17 23:00 31 Mechanical Ventilator 35 12/04/17 22:00 31 Mechanical Ventilator 35 12/04/17 22:00 76 31 130/58 (82) 99 12/04/17 21:30 74 26 121/58 (79) 100 12/04/17 21:09 76 28 35 12/04/17 21:00 26 Mechanical Ventilator 35 12/04/17 21:00 74 26 116/49 (71) 100 12/04/17 20:30 72 25 123/57 (79) 100 12/04/17 20:01 71 12/04/17 20:00 35 12/04/17 20:00 Mechanical Ventilator 12/04/17 20:00 25 Mechanical Ventilator 35 12/04/17 20:00 98.5 71 25 102/57 (72) 99 12/04/17 19:30 71 25 113/53 (73) 99 12/04/17 19:10 73 24 35 12/04/17 19:00 Mechanical Ventilator 35 12/04/17 19:00 73 25 108/51 (70) 98 12/04/17 18:00 20 Mechanical Ventilator 35 12/04/17 18:00 81 25 138/54 (82) 98 12/04/17 17:03 70 23 35 12/04/17 17:00 21 Mechanical Ventilator 35 12/04/17 17:00 98.4 71 20 106/59 (75) 97 12/04/17 16:27 98.4 12/04/17 16:00 70 26 106/56 (73) 98 12/04/17 16:00 Mechanical Ventilator 12/04/17 16:00 74 12/04/17 16:00 35 12/04/17 15:57 22 35 12/04/17 15:20 73 21 35 12/04/17 15:00 69 26 98/58 (71) 98 12/04/17 15:00 20 Mechanical Ventilator 35 12/04/17 14:00 71 26 105/53 (70) 96 12/04/17 14:00 21 Mechanical Ventilator 35 Intake and Output 12/04/17 12/05/17 19:00 07:00 Intake Total 2941.084 ml 1876.0 ml Output Total 730 ml 1715 ml Balance 2211.084 ml 161.0 ml IV Total 2731.084 ml 1476.0 ml Tube Feeding 210 ml 360 ml Other 40 ml Output Urine Total 730 ml 1615 ml Stool Total 100 ml # Bowel Movements 3 Laboratory Tests Test 12/05/17 04:57 White Blood Count 12.2 K/UL (4.8-10.8) H Red Blood Count 3.39 M/UL (4.70-6.10) L Hemoglobin 8.9 G/DL (14.2-18.0) L Hematocrit 27.3 % (42.0-52.0) L Mean Corpuscular Volume 80 FL (80-99) Mean Corpuscular Hemoglobin 26.2 PG (27.0-31.0) L Mean Corpuscular Hemoglobin Concent 32.6 G/DL (32.0-36.0) Red Cell Distribution Width 15.1 % (11.6-14.8) H Platelet Count 108 K/UL (150-450) L Mean Platelet Volume 9.2 FL (6.5-10.1) Neutrophils (%) (Auto) 84.3 % (45.0-75.0) H Lymphocytes (%) (Auto) 9.0 % (20.0-45.0) L Monocytes (%) (Auto) 4.1 % (1.0-10.0) Eosinophils (%) (Auto) 2.2 % (0.0-3.0) Basophils (%) (Auto) 0.3 % (0.0-2.0) Sodium Level 148 MMOL/L (136-145) H Potassium Level 3.8 MMOL/L (3.5-5.1) Chloride Level 119 MMOL/L (98-107) H Carbon Dioxide Level 17 MMOL/L (21-32) L Anion Gap 12 mmol/L (5-15) Blood Urea Nitrogen 42 mg/dL (7-18) H Creatinine 1.9 MG/DL (0.55-1.30) H Estimat Glomerular Filtration Rate mL/min (>60) Glucose Level 164 MG/DL (74-106) H Uric Acid 4.8 MG/DL (2.6-7.2) Calcium Level 6.1 MG/DL (8.5-10.1) L Phosphorus Level 2.4 MG/DL (2.5-4.9) L Magnesium Level 2.1 MG/DL (1.8-2.4) Total Bilirubin 0.4 MG/DL (0.2-1.0) Gamma Glutamyl Transpeptidase 33 U/L (5-85) Aspartate Amino Transf (AST/SGOT) 124 U/L (15-37) H Alanine Aminotransferase (ALT/SGPT) 152 U/L (12-78) H Alkaline Phosphatase 90 U/L (46-116) Total Creatine Kinase 6432 U/L (26-308) H Troponin I 0.134 ng/mL (0.000-0.056) Pro-B-Type Natriuretic Peptide 2948 pg/mL (0-125) H Total Protein 5.7 G/DL (6.4-8.2) L Albumin 2.0 G/DL (3.4-5.0) L Globulin 3.7 g/dL Albumin/Globulin Ratio 0.5 (1.0-2.7) L Random Vancomycin Level 10.3 ug/mL Height (Feet): 5 Height (Inches): 5.00 Weight (Pounds): 152 General Appearance: WD/WN, no apparent distress, alert Cardiovascular: normal rate Respiratory/Chest: normal breath sounds, no respiratory distress, other - intubated Abdominal Exam: normal bowel sounds, non tender, soft, GT site - c/d/i, other - rectal tube Extremities: non-tender Kishan Hopkins TOUCHER UP Dec 05, 2017 13:43
[2017-12-05] MEDS ORDERED: Tubing IV Secondary IV ONE (13:56)
[2017-12-05] MEDS ORDERED: Sterile Water Irrig 1000ml IRRIG ONE (13:56)
[2017-12-05] MEDS ORDERED: NS 275ml ONE (13:56)
--- NOTE | 2017-12-05 15:12 | Pulmonolgy Critical Care Note ---
Critical Care - Asmt/Plan Problems: (1) Hypernatremia (2) NSTEMI (non-ST elevated myocardial infarction) (3) UTI (urinary tract infection) (4) Severe sepsis (5) Respiratory failure (6) Renal failure (ARF), acute on chronic (7) Malnutrition (8) Pancreatitis (9) Pneumonia (10) Rhabdomyolysis (11) Hypoxemia (12) PEG (percutaneous endoscopic gastrostomy) status Respiratory: weaning trial - SBT, possible extubation, other - PRN DUOnebs Cardiac: continue to monitor HR/BP Renal: keep IV fluid, check electrolytes Infectious Disease: continue antibiotics Gastrointestinal: hold feedings - for possible extubaiton Endocrine: monitor blood sugar Hematologic: monitor H/H Neurologic: other - Hold Fent gtt for possible extubation, PRN Versed Prophylaxis: Protonix, Heparin Disposition: keep in ICU Time Spent (Minutes): 40 Notes Reviewed: chief dispatcher service, cardio, renal, ID, GI Discussed with: nurses, consultants Critical Care - Objective Last 24 Hour Vital Signs Date Time Temp Pulse Resp B/P (MAP) Pulse Ox O2 Delivery O2 Flow Rate FiO2 12/05/17 14:00 79 26 109/59 (76) 97 12/05/17 14:00 30 Mechanical Ventilator 35 12/05/17 13:13 83 29 35 12/05/17 13:00 30 Mechanical Ventilator 35 12/05/17 13:00 79 26 101/54 (70) 98 12/05/17 12:00 88 12/05/17 12:00 30 Mechanical Ventilator 35 12/05/17 12:00 98.9 89 30 127/54 (78) 97 12/05/17 12:00 Mechanical Ventilator 12/05/17 11:33 99 12/05/17 11:30 35 12/05/17 11:30 79 31 35 12/05/17 11:00 89 28 147/63 (91) 97 12/05/17 11:00 25 Mechanical Ventilator 35 12/05/17 10:35 28 Mechanical Ventilator 35 12/05/17 10:00 81 27 127/52 (77) 99 12/05/17 10:00 25 Mechanical Ventilator 35 12/05/17 09:51 35 12/05/17 09:30 77 26 100/48 (65) 99 12/05/17 09:00 25 Mechanical Ventilator 35 12/05/17 09:00 77 26 119/58 (78) 99 12/05/17 08:37 108/58 12/05/17 08:35 82 27 35 12/05/17 08:30 80 27 125/60 (81) 99 12/05/17 08:30 35 12/05/17 08:00 79 29 121/53 (75) 100 12/05/17 08:00 35 12/05/17 08:00 Mechanical Ventilator 12/05/17 08:00 79 12/05/17 08:00 25 Mechanical Ventilator 35 12/05/17 07:30 78 27 121/53 (75) 99 12/05/17 07:06 82 27 35 12/05/17 07:00 83 28 132/67 (88) 100 12/05/17 07:00 26 Mechanical Ventilator 35 12/05/17 07:00 28 Mechanical Ventilator 35 12/05/17 06:30 79 28 122/59 (80) 99 12/05/17 06:00 81 30 123/60 (81) 100 12/05/17 06:00 30 Mechanical Ventilator 35 12/05/17 05:30 80 27 129/58 (81) 98 12/05/17 05:03 78 29 35 12/05/17 05:00 79 28 117/52 (73) 99 12/05/17 05:00 28 Mechanical Ventilator 35 12/05/17 04:30 80 27 112/61 (78) 98 12/05/17 04:00 35 12/05/17 04:00 Mechanical Ventilator 12/05/17 04:00 98.8 83 30 156/64 (94) 97 12/05/17 04:00 30 Mechanical Ventilator 35 12/05/17 03:59 87 12/05/17 03:30 78 26 119/58 (78) 98 12/05/17 03:08 79 26 35 12/05/17 03:00 79 26 119/55 (76) 98 12/05/17 03:00 26 Mechanical Ventilator 35 12/05/17 02:30 79 26 104/54 (71) 98 12/05/17 02:00 28 Mechanical Ventilator 35 12/05/17 02:00 80 28 116/55 (75) 98 12/05/17 01:30 79 27 119/57 (77) 98 12/05/17 01:00 79 27 118/58 (78) 98 12/05/17 01:00 28 Mechanical Ventilator 35 12/05/17 00:57 76 26 35 12/05/17 00:30 73 28 116/53 (74) 100 12/05/17 00:00 Mechanical Ventilator 12/05/17 00:00 99.1 74 31 106/51 (69) 100 12/05/17 00:00 35 12/05/17 00:00 31 Mechanical Ventilator 35 12/04/17 23:59 73 12/04/17 23:30 74 31 96/49 (65) 100 12/04/17 23:02 74 30 35 12/04/17 23:00 74 31 108/46 (66) 99 12/04/17 23:00 31 Mechanical Ventilator 35 12/04/17 22:00 31 Mechanical Ventilator 35 12/04/17 22:00 76 31 130/58 (82) 99 12/04/17 21:30 74 26 121/58 (79) 100 12/04/17 21:09 76 28 35 12/04/17 21:00 26 Mechanical Ventilator 35 12/04/17 21:00 74 26 116/49 (71) 100 12/04/17 20:30 72 25 123/57 (79) 100 12/04/17 20:01 71 12/04/17 20:00 35 12/04/17 20:00 Mechanical Ventilator 12/04/17 20:00 25 Mechanical Ventilator 35 12/04/17 20:00 98.5 71 25 102/57 (72) 99 12/04/17 19:30 71 25 113/53 (73) 99 12/04/17 19:10 73 24 35 12/04/17 19:00 Mechanical Ventilator 35 12/04/17 19:00 73 25 108/51 (70) 98 12/04/17 18:00 20 Mechanical Ventilator 35 12/04/17 18:00 81 25 138/54 (82) 98 12/04/17 17:03 70 23 35 12/04/17 17:00 21 Mechanical Ventilator 35 12/04/17 17:00 98.4 71 20 106/59 (75) 97 12/04/17 16:27 98.4 12/04/17 16:00 70 26 106/56 (73) 98 12/04/17 16:00 Mechanical Ventilator 12/04/17 16:00 74 12/04/17 16:00 35 12/04/17 15:57 22 35 12/04/17 15:20 73 21 35 Status: awake, other - intubated Condition: improving HEENT: atraumatic, normocephalic Lungs: clear Heart: HR/BP stable Abdomen: soft, non-tender, active bowel sounds, feeding tube Extremities: no C/C/E Decubiti: location - sacral, stage - DTI Accucheck: 195 Blood Sugars: BS controlled Critical Care - Subjective ROS Limited/Unobtainable: Yes ICU Day: 5 Intubation Day: 5 Interval Events: SBT, no sig secretions, awake, AFVSS Condition: improving IV Access: PICC EKG Rhythm: Sinus Rhythm FI02: 35 Vent Support Breath Rate: 16 Vent Support Mode: AC Vent Tidal Volume: 500 Sputum Amount: Scant PEEP: 5.0 PIP: 25 Fluids: [id number]@100 Drips: Fent@50 Tube Feeding Amount: 30 I&O: Intake and Output 12/04/17 12/05/17 19:00 07:00 Intake Total 2941.084 ml 1876.0 ml Output Total 730 ml 1715 ml Balance 2211.084 ml 161.0 ml IV Total 2731.084 ml 1476.0 ml Tube Feeding 210 ml 360 ml Other 40 ml Output Urine Total 730 ml 1615 ml Stool Total 100 ml # Bowel Movements 3 Subjective: AIDE ET-Tube: 7.5 ET Position: 22 Labs: Laboratory Tests Test 12/05/17 04:57 White Blood Count 12.2 K/UL (4.8-10.8) H Red Blood Count 3.39 M/UL (4.70-6.10) L Hemoglobin 8.9 G/DL (14.2-18.0) L Hematocrit 27.3 % (42.0-52.0) L Mean Corpuscular Volume 80 FL (80-99) Mean Corpuscular Hemoglobin 26.2 PG (27.0-31.0) L Mean Corpuscular Hemoglobin Concent 32.6 G/DL (32.0-36.0) Red Cell Distribution Width 15.1 % (11.6-14.8) H Platelet Count 108 K/UL (150-450) L Mean Platelet Volume 9.2 FL (6.5-10.1) Neutrophils (%) (Auto) 84.3 % (45.0-75.0) H Lymphocytes (%) (Auto) 9.0 % (20.0-45.0) L Monocytes (%) (Auto) 4.1 % (1.0-10.0) Eosinophils (%) (Auto) 2.2 % (0.0-3.0) Basophils (%) (Auto) 0.3 % (0.0-2.0) Sodium Level 148 MMOL/L (136-145) H Potassium Level 3.8 MMOL/L (3.5-5.1) Chloride Level 119 MMOL/L (98-107) H Carbon Dioxide Level 17 MMOL/L (21-32) L Anion Gap 12 mmol/L (5-15) Blood Urea Nitrogen 42 mg/dL (7-18) H Creatinine 1.9 MG/DL (0.55-1.30) H Estimat Glomerular Filtration Rate mL/min (>60) Glucose Level 164 MG/DL (74-106) H Uric Acid 4.8 MG/DL (2.6-7.2) Calcium Level 6.1 MG/DL (8.5-10.1) L Phosphorus Level 2.4 MG/DL (2.5-4.9) L Magnesium Level 2.1 MG/DL (1.8-2.4) Total Bilirubin 0.4 MG/DL (0.2-1.0) Gamma Glutamyl Transpeptidase 33 U/L (5-85) Aspartate Amino Transf (AST/SGOT) 124 U/L (15-37) H Alanine Aminotransferase (ALT/SGPT) 152 U/L (12-78) H Alkaline Phosphatase 90 U/L (46-116) Total Creatine Kinase 6432 U/L (26-308) H Troponin I 0.134 ng/mL (0.000-0.056) Pro-B-Type Natriuretic Peptide 2948 pg/mL (0-125) H Total Protein 5.7 G/DL (6.4-8.2) L Albumin 2.0 G/DL (3.4-5.0) L Globulin 3.7 g/dL Albumin/Globulin Ratio 0.5 (1.0-2.7) L Random Vancomycin Level 10.3 ug/mL Fantasma Nielsen MD Dec 05, 2017 15:11
[2017-12-05] MEDS ORDERED: Albuterol/Ipratropium 3ml neb HHN PRN (15:21)
--- NOTE | 2017-12-05 15:33 | General Progress Note ---
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 --> Anemia w/u has been reviewed. Will trend CBC daily --> No evidence of hemolysis noted, peripheral smear has been reviewed --> Hgb goal >7. Transfuse as needed. # Leukocytosis. Likely related to underlying infection vs reactive process. --> Imaging has been reviewed. Shows Stable cardiomegaly. Slight haziness of the pulmonary vascularity suggests mild interstitial edema. Unchanged elevation of the left hemidiaphragm. --> Blood cx and urine cx have been reviewed. --> Has been started on abx, empiric tx # Thrombocytopenia. Potential causes multifactorial, evaluate leivmer and viral etiologies. --> Hep panel negative and HIV is negative --> Ordered US abd for evaluation of cirrhosis and hsm - reviewed and is hsm and cirrhosis --> Abx and other meds have been reviewed. --> Ok for ppx if heparin >50k with heparin sq # Constipation. --> ordered KUB evaluate abdominal distention - No acute process. Findings as noted --> electrolyte correction --> prevacid GT bowel regime # Sepsis. # Malnutrition. --> peg GREATLY APPRECIATE CONSULTATION. Subjective ROS Limited/Unobtainable: Yes Allergies: Coded Allergies: TERAZOSIN (Verified Allergy, Unknown, 10/27/17) Subjective Pt remains in ICU. No new changes. H/H stable. Objective Last 24 Hour Vital Signs Date Time Temp Pulse Resp B/P (MAP) Pulse Ox O2 Delivery O2 Flow Rate FiO2 12/05/17 15:05 80 31 35 12/05/17 15:00 31 Mechanical Ventilator 35 12/05/17 15:00 80 32 126/71 (89) 100 12/05/17 14:00 79 26 109/59 (76) 97 12/05/17 14:00 30 Mechanical Ventilator 35 12/05/17 13:13 83 29 35 12/05/17 13:00 30 Mechanical Ventilator 35 12/05/17 13:00 79 26 101/54 (70) 98 12/05/17 12:00 88 12/05/17 12:00 30 Mechanical Ventilator 35 12/05/17 12:00 98.9 89 30 127/54 (78) 97 12/05/17 12:00 Mechanical Ventilator 12/05/17 11:33 99 12/05/17 11:30 35 12/05/17 11:30 79 31 35 12/05/17 11:00 89 28 147/63 (91) 97 12/05/17 11:00 25 Mechanical Ventilator 35 12/05/17 10:35 28 Mechanical Ventilator 35 12/05/17 10:00 81 27 127/52 (77) 99 12/05/17 10:00 25 Mechanical Ventilator 35 12/05/17 09:51 35 12/05/17 09:30 77 26 100/48 (65) 99 12/05/17 09:00 25 Mechanical Ventilator 35 12/05/17 09:00 77 26 119/58 (78) 99 12/05/17 08:37 108/58 12/05/17 08:35 82 27 35 12/05/17 08:30 80 27 125/60 (81) 99 12/05/17 08:30 35 12/05/17 08:00 79 29 121/53 (75) 100 12/05/17 08:00 35 12/05/17 08:00 Mechanical Ventilator 12/05/17 08:00 79 12/05/17 08:00 25 Mechanical Ventilator 35 12/05/17 07:30 78 27 121/53 (75) 99 12/05/17 07:06 82 27 35 12/05/17 07:00 83 28 132/67 (88) 100 12/05/17 07:00 26 Mechanical Ventilator 35 12/05/17 07:00 28 Mechanical Ventilator 35 12/05/17 06:30 79 28 122/59 (80) 99 12/05/17 06:00 81 30 123/60 (81) 100 12/05/17 06:00 30 Mechanical Ventilator 35 12/05/17 05:30 80 27 129/58 (81) 98 12/05/17 05:03 78 29 35 12/05/17 05:00 79 28 117/52 (73) 99 12/05/17 05:00 28 Mechanical Ventilator 35 12/05/17 04:30 80 27 112/61 (78) 98 12/05/17 04:00 35 12/05/17 04:00 Mechanical Ventilator 12/05/17 04:00 98.8 83 30 156/64 (94) 97 12/05/17 04:00 30 Mechanical Ventilator 35 12/05/17 03:59 87 12/05/17 03:30 78 26 119/58 (78) 98 12/05/17 03:08 79 26 35 12/05/17 03:00 79 26 119/55 (76) 98 12/05/17 03:00 26 Mechanical Ventilator 35 12/05/17 02:30 79 26 104/54 (71) 98 12/05/17 02:00 28 Mechanical Ventilator 35 12/05/17 02:00 80 28 116/55 (75) 98 12/05/17 01:30 79 27 119/57 (77) 98 12/05/17 01:00 79 27 118/58 (78) 98 12/05/17 01:00 28 Mechanical Ventilator 35 12/05/17 00:57 76 26 35 12/05/17 00:30 73 28 116/53 (74) 100 12/05/17 00:00 Mechanical Ventilator 12/05/17 00:00 99.1 74 31 106/51 (69) 100 12/05/17 00:00 35 12/05/17 00:00 31 Mechanical Ventilator 35 12/04/17 23:59 73 12/04/17 23:30 74 31 96/49 (65) 100 12/04/17 23:02 74 30 35 12/04/17 23:00 74 31 108/46 (66) 99 12/04/17 23:00 31 Mechanical Ventilator 35 12/04/17 22:00 31 Mechanical Ventilator 35 12/04/17 22:00 76 31 130/58 (82) 99 12/04/17 21:30 74 26 121/58 (79) 100 12/04/17 21:09 76 28 35 12/04/17 21:00 26 Mechanical Ventilator 35 12/04/17 21:00 74 26 116/49 (71) 100 12/04/17 20:30 72 25 123/57 (79) 100 12/04/17 20:01 71 12/04/17 20:00 35 12/04/17 20:00 Mechanical Ventilator 12/04/17 20:00 25 Mechanical Ventilator 35 12/04/17 20:00 98.5 71 25 102/57 (72) 99 12/04/17 19:30 71 25 113/53 (73) 99 12/04/17 19:10 73 24 35 12/04/17 19:00 Mechanical Ventilator 35 10/29/18 19:00 73 25 108/51 (70) 98 12/04/17 18:00 20 Mechanical Ventilator 35 12/04/17 18:00 81 25 138/54 (82) 98 12/04/17 17:03 70 23 35 12/04/17 17:00 21 Mechanical Ventilator 35 12/04/17 17:00 98.4 71 20 106/59 (75) 97 12/04/17 16:27 98.4 12/04/17 16:00 70 26 106/56 (73) 98 12/04/17 16:00 Mechanical Ventilator 12/04/17 16:00 74 12/04/17 16:00 35 12/04/17 15:57 22 35 Intake and Output 12/04/17 12/05/17 19:00 07:00 Intake Total 2941.084 ml 1876.0 ml Output Total 730 ml 1715 ml Balance 2211.084 ml 161.0 ml IV Total 2731.084 ml 1476.0 ml Tube Feeding 210 ml 360 ml Other 40 ml Output Urine Total 730 ml 1615 ml Stool Total 100 ml # Bowel Movements 3 Laboratory Tests 12/05/17 04:57: White Blood Count 12.2H, Red Blood Count 3.39L, Hemoglobin 8.9L, Hematocrit 27.3L, Mean Corpuscular Volume 80, Mean Corpuscular Hemoglobin 26.2L, Mean Corpuscular Hemoglobin Concent 32.6, Red Cell Distribution Width 15.1H, Platelet Count 108L, Mean Platelet Volume 9.2, Neutrophils (%) (Auto) 84.3H, Lymphocytes (%) (Auto) 9.0L, Monocytes (%) (Auto) 4.1, Eosinophils (%) (Auto) 2.2, Basophils (%) (Auto) 0.3, Sodium Level 148H, Potassium Level 3.8, Chloride Level 119H, Carbon Dioxide Level 17L, Anion Gap 12, Blood Urea Nitrogen 42H, Creatinine 1.9H, Estimat Glomerular Filtration Rate , Glucose Level 164H, Uric Acid 4.8, Calcium Level 6.1L, Phosphorus Level 2.4L, Magnesium Level 2.1, Total Bilirubin 0.4, Gamma Glutamyl Transpeptidase 33, Aspartate Amino Transf (AST/ SGOT) 124H, Alanine Aminotransferase (ALT/SGPT) 152H, Alkaline Phosphatase 90, Total Creatine Kinase 6432H, Troponin I 0.134H, Pro-B-Type Natriuretic Peptide 2948H, Total Protein 5.7L, Albumin 2.0L, Globulin 3.7, Albumin/Globulin Ratio 0.5L, Random Vancomycin Level 10.3 Height (Feet): 5 Height (Inches): 5.00 Weight (Pounds): 152 General Appearance: no apparent distress EENT: TMs normal Neck: normal inspection Cardiovascular: normal rate Respiratory/Chest: chest wall non-tender Extremities: normal range of motion Edema: 1+ Leg (L), 1+ Leg (R) Neurologic: alert Skin: warm/dry Beny Dalton MD Dec 05, 2017 15:33
--- NOTE | 2017-12-05 18:31 | Cardiology Report ---
APPROVED REPORT EKG Measurement Heart [id number] MA [id number] probable Sinus tachycardia with 1st degree AV block an m otion artifact consider repeating ekg Low voltage QRS Marked ST abnormality, possible inferolateral subendocardial injury Abnormal ECG
--- NOTE | 2017-12-05 20:59 | General Progress Note ---
Assessment/Plan Problem List: (1) Hypoxemia ICD Codes: R09.02 - Hypoxemia SNOMED: 110938887 (2) Pneumonia ICD Codes: J18.9 - Pneumonia, unspecified organism SNOMED: 216236956 (3) Malnutrition ICD Codes: E46 - Unspecified protein-calorie malnutrition SNOMED: 18784885 (4) Renal failure (ARF), acute on chronic ICD Codes: N17.9 - Acute kidney failure, unspecified; N18.9 - Chronic kidney disease, unspecified SNOMED: 670558853 Qualifiers: Qualified Codes: N17.9 - Acute kidney failure, unspecified; N18.3 - Chronic kidney disease, stage 3 (moderate) (5) Respiratory failure ICD Codes: J96.90 - Respiratory failure, unspecified, unspecified whether with hypoxia or hypercapnia SNOMED: 645466002 Qualifiers: Qualified Codes: J96.00 - Acute respiratory failure, unspecified whether with hypoxia or hypercapnia (6) Severe sepsis ICD Codes: A41.9 - Sepsis, unspecified organism; R65.20 - Severe sepsis without septic shock SNOMED: 72947287 (7) UTI (urinary tract infection) ICD Codes: N39.0 - Urinary tract infection, site not specified SNOMED: 72850786 Qualifiers: Qualified Codes: N39.0 - Urinary tract infection, site not specified (8) NSTEMI (non-ST elevated myocardial infarction) ICD Codes: I21.4 - Non-ST elevation (NSTEMI) myocardial infarction SNOMED: 280200900 (9) Hypernatremia ICD Codes: E87.0 - Hyperosmolality and hypernatremia SNOMED: 70761991 (10) DM (11) Rhabdomyolysis ICD Codes: M62.82 - Rhabdomyolysis SNOMED: 009924825 Status: progressing Assessment/Plan hypernatremia improving resp insuff lethargic persistent leukocytosis improving afebrile uti sepsis nstemi Subjective ROS Limited/Unobtainable: Yes Allergies: Coded Allergies: TERAZOSIN (Verified Allergy, Unknown, 10/27/17) Objective Last 24 Hour Vital Signs Date Time Temp Pulse Resp B/P (MAP) Pulse Ox O2 Delivery O2 Flow Rate FiO2 12/05/17 19:00 83 32 134/70 (91) 99 12/05/17 18:56 81 30 30 12/05/17 18:01 86 36 125/71 (89) 100 12/05/17 17:59 32 Mechanical Ventilator 12/05/17 17:21 86 30 35 12/05/17 17:00 83 30 125/63 (83) 100 12/05/17 16:00 81 12/05/17 16:00 99.0 81 31 133/45 (74) 99 12/05/17 16:00 35 12/05/17 16:00 Mechanical Ventilator 12/05/17 15:05 80 31 35 12/05/17 15:00 31 Mechanical Ventilator 35 12/05/17 15:00 35 12/05/17 15:00 80 32 126/71 (89) 100 12/05/17 14:00 79 26 109/59 (76) 97 12/05/17 14:00 30 Mechanical Ventilator 35 12/05/17 13:13 83 29 35 12/05/17 13:00 30 Mechanical Ventilator 35 12/05/17 13:00 79 26 101/54 (70) 98 12/05/17 12:00 88 12/05/17 12:00 30 Mechanical Ventilator 35 12/05/17 12:00 98.9 89 30 127/54 (78) 97 12/05/17 12:00 Mechanical Ventilator 12/05/17 11:33 99 12/05/17 11:30 35 12/05/17 11:30 79 31 35 12/05/17 11:00 89 28 147/63 (91) 97 12/05/17 11:00 25 Mechanical Ventilator 35 12/05/17 10:35 28 Mechanical Ventilator 35 12/05/17 10:00 81 27 127/52 (77) 99 12/05/17 10:00 25 Mechanical Ventilator 35 12/05/17 09:51 35 12/05/17 09:30 77 26 100/48 (65) 99 12/05/17 09:00 25 Mechanical Ventilator 35 12/05/17 09:00 77 26 119/58 (78) 99 12/05/17 08:37 108/58 12/05/17 08:35 82 27 35 12/05/17 08:30 80 27 125/60 (81) 99 12/05/17 08:30 35 12/05/17 08:00 79 29 121/53 (75) 100 12/05/17 08:00 35 12/05/17 08:00 Mechanical Ventilator 12/05/17 08:00 79 12/05/17 08:00 25 Mechanical Ventilator 35 12/05/17 07:30 78 27 121/53 (75) 99 12/05/17 07:06 82 27 35 12/05/17 07:00 83 28 132/67 (88) 100 12/05/17 07:00 26 Mechanical Ventilator 35 12/05/17 07:00 28 Mechanical Ventilator 35 12/05/17 06:30 79 28 122/59 (80) 99 12/05/17 06:00 81 30 123/60 (81) 100 12/05/17 06:00 30 Mechanical Ventilator 35 12/05/17 05:30 80 27 129/58 (81) 98 12/05/17 05:03 78 29 35 12/05/17 05:00 79 28 117/52 (73) 99 12/05/17 05:00 28 Mechanical Ventilator 35 12/05/17 04:30 80 27 112/61 (78) 98 12/05/17 04:00 35 12/05/17 04:00 Mechanical Ventilator 12/05/17 04:00 98.8 83 30 156/64 (94) 97 12/05/17 04:00 30 Mechanical Ventilator 35 12/05/17 03:59 87 12/05/17 03:30 78 26 119/58 (78) 98 12/05/17 03:08 79 26 35 12/05/17 03:00 79 26 119/55 (76) 98 12/05/17 03:00 26 Mechanical Ventilator 35 12/05/17 02:30 79 26 104/54 (71) 98 12/05/17 02:00 28 Mechanical Ventilator 35 12/05/17 02:00 80 28 116/55 (75) 98 12/05/17 01:30 79 27 119/57 (77) 98 12/05/17 01:00 79 27 118/58 (78) 98 12/05/17 01:00 28 Mechanical Ventilator 35 12/05/17 00:57 76 26 35 12/05/17 00:30 73 28 116/53 (74) 100 12/05/17 00:00 Mechanical Ventilator 12/05/17 00:00 99.1 74 31 106/51 (69) 100 12/05/17 00:00 35 10/30/18 00:00 31 Mechanical Ventilator 35 12/04/17 23:59 73 12/04/17 23:30 74 31 96/49 (65) 100 12/04/17 23:02 74 30 35 12/04/17 23:00 74 31 108/46 (66) 99 12/04/17 23:00 31 Mechanical Ventilator 35 12/04/17 22:00 31 Mechanical Ventilator 35 12/04/17 22:00 76 31 130/58 (82) 99 12/04/17 21:30 74 26 121/58 (79) 100 12/04/17 21:09 76 28 35 12/04/17 21:00 26 Mechanical Ventilator 35 12/04/17 21:00 74 26 116/49 (71) 100 Intake and Output 12/04/17 12/05/17 18:59 06:59 Intake Total 2990.084 ml 1772.0 ml Output Total 750 ml 1620 ml Balance 2240.084 ml 152.0 ml IV Total 2780.084 ml 1372.0 ml Tube Feeding 210 ml 360 ml Other 40 ml Output Urine Total 750 ml 1520 ml Stool Total 100 ml # Bowel Movements 3 Laboratory Tests 12/05/17 04:57: White Blood Count 12.2H, Red Blood Count 3.39L, Hemoglobin 8.9L, Hematocrit 27.3L, Mean Corpuscular Volume 80, Mean Corpuscular Hemoglobin 26.2L, Mean Corpuscular Hemoglobin Concent 32.6, Red Cell Distribution Width 15.1H, Platelet Count 108L, Mean Platelet Volume 9.2, Neutrophils (%) (Auto) 84.3H, Lymphocytes (%) (Auto) 9.0L, Monocytes (%) (Auto) 4.1, Eosinophils (%) (Auto) 2.2, Basophils (%) (Auto) 0.3, Sodium Level 148H, Potassium Level 3.8, Chloride Level 119H, Carbon Dioxide Level 17L, Anion Gap 12, Blood Urea Nitrogen 42H, Creatinine 1.9H, Estimat Glomerular Filtration Rate , Glucose Level 164H, Uric Acid 4.8, Calcium Level 6.1L, Phosphorus Level 2.4L, Magnesium Level 2.1, Total Bilirubin 0.4, Gamma Glutamyl Transpeptidase 33, Aspartate Amino Transf (AST/ SGOT) 124H, Alanine Aminotransferase (ALT/SGPT) 152H, Alkaline Phosphatase 90, Total Creatine Kinase 6432H, Troponin I 0.134H, Pro-B-Type Natriuretic Peptide 2948H, Total Protein 5.7L, Albumin 2.0L, Globulin 3.7, Albumin/Globulin Ratio 0.5L, Random Vancomycin Level 10.3 12/05/17 15:43: Arterial Blood pH 7.357, Arterial Blood Partial Pressure CO2 25.7L, Arterial Blood Partial Pressure O2 84.4, Arterial Blood HCO3 14.1*L, Arterial Blood Oxygen Saturation 96.1, Arterial Blood Base Excess -10.1*L, Ebenezer Test Positive Height (Feet): 5 Height (Inches): 5.00 Weight (Pounds): 152 Neck: supple Cardiovascular: normal rate Respiratory/Chest: lungs clear Abdomen: soft Trish Matias MD Dec 05, 2017 20:59
[2017-12-05] MEDS: Dyna-Hex 2% Top Sol 2oz TOPIC SCH (21:00)
--- NOTE | 2017-12-05 22:58 | General Progress Note ---
Assessment/Plan Problem List: (1) Encephalopathy due to metabolic factor or toxin SNOMED: 844776602 Status: stable Assessment/Plan Seroquel prn dw staff Subjective Date patient seen: Dec 05, 2017 Neurologic/Psychiatric: Reports: anxiety Allergies: Coded Allergies: TERAZOSIN (Verified Allergy, Unknown, 10/27/17) Objective Last 24 Hour Vital Signs Date Time Temp Pulse Resp B/P (MAP) Pulse Ox O2 Delivery O2 Flow Rate FiO2 12/05/17 21:08 82 31 30 12/05/17 20:00 Mechanical Ventilator 12/05/17 19:00 83 32 134/70 (91) 99 12/05/17 18:56 81 30 30 12/05/17 18:01 86 36 125/71 (89) 100 12/05/17 17:59 32 Mechanical Ventilator 12/05/17 17:21 86 30 35 12/05/17 17:00 83 30 125/63 (83) 100 12/05/17 16:00 81 12/05/17 16:00 99.0 81 31 133/45 (74) 99 12/05/17 16:00 35 12/05/17 16:00 Mechanical Ventilator 12/05/17 15:05 80 31 35 12/05/17 15:00 31 Mechanical Ventilator 35 12/05/17 15:00 35 12/05/17 15:00 80 32 126/71 (89) 100 12/05/17 14:00 79 26 109/59 (76) 97 12/05/17 14:00 30 Mechanical Ventilator 35 12/05/17 13:13 83 29 35 12/05/17 13:00 30 Mechanical Ventilator 35 12/05/17 13:00 79 26 101/54 (70) 98 12/05/17 12:00 88 12/05/17 12:00 30 Mechanical Ventilator 35 12/05/17 12:00 98.9 89 30 127/54 (78) 97 12/05/17 12:00 Mechanical Ventilator 12/05/17 11:33 99 12/05/17 11:30 35 12/05/17 11:30 79 31 35 12/05/17 11:00 89 28 147/63 (91) 97 12/05/17 11:00 25 Mechanical Ventilator 35 12/05/17 10:35 28 Mechanical Ventilator 35 12/05/17 10:00 81 27 127/52 (77) 99 12/05/17 10:00 25 Mechanical Ventilator 35 12/05/17 09:51 35 12/05/17 09:30 77 26 100/48 (65) 99 12/05/17 09:00 25 Mechanical Ventilator 35 12/05/17 09:00 77 26 119/58 (78) 99 12/05/17 08:37 108/58 12/05/17 08:35 82 27 35 12/05/17 08:30 80 27 125/60 (81) 99 12/05/17 08:30 35 12/05/17 08:00 79 29 121/53 (75) 100 12/05/17 08:00 35 12/05/17 08:00 Mechanical Ventilator 12/05/17 08:00 79 12/05/17 08:00 25 Mechanical Ventilator 35 12/05/17 07:30 78 27 121/53 (75) 99 12/05/17 07:06 82 27 35 12/05/17 07:00 83 28 132/67 (88) 100 12/05/17 07:00 26 Mechanical Ventilator 35 12/05/17 07:00 28 Mechanical Ventilator 35 12/05/17 06:30 79 28 122/59 (80) 99 12/05/17 06:00 81 30 123/60 (81) 100 12/05/17 06:00 30 Mechanical Ventilator 35 12/05/17 05:30 80 27 129/58 (81) 98 12/05/17 05:03 78 29 35 12/05/17 05:00 79 28 117/52 (73) 99 12/05/17 05:00 28 Mechanical Ventilator 35 12/05/17 04:30 80 27 112/61 (78) 98 12/05/17 04:00 35 12/05/17 04:00 Mechanical Ventilator 12/05/17 04:00 98.8 83 30 156/64 (94) 97 12/05/17 04:00 30 Mechanical Ventilator 35 12/05/17 03:59 87 12/05/17 03:30 78 26 119/58 (78) 98 12/05/17 03:08 79 26 35 12/05/17 03:00 79 26 119/55 (76) 98 12/05/17 03:00 26 Mechanical Ventilator 35 12/05/17 02:30 79 26 104/54 (71) 98 12/05/17 02:00 28 Mechanical Ventilator 35 12/05/17 02:00 80 28 116/55 (75) 98 12/05/17 01:30 79 27 119/57 (77) 98 12/05/17 01:00 79 27 118/58 (78) 98 12/05/17 01:00 28 Mechanical Ventilator 35 12/05/17 00:57 76 26 35 12/05/17 00:30 73 28 116/53 (74) 100 12/05/17 00:00 Mechanical Ventilator 12/05/17 00:00 99.1 74 31 106/51 (69) 100 12/05/17 00:00 35 12/05/17 00:00 31 Mechanical Ventilator 35 12/04/17 23:59 73 12/04/17 23:30 74 31 96/49 (65) 100 12/04/17 23:02 74 30 35 12/04/17 23:00 74 31 108/46 (66) 99 12/04/17 23:00 31 Mechanical Ventilator 35 Intake and Output 12/04/17 12/05/17 18:59 06:59 Intake Total 2990.084 ml 1772.0 ml Output Total 750 ml 1620 ml Balance 2240.084 ml 152.0 ml IV Total 2780.084 ml 1372.0 ml Tube Feeding 210 ml 360 ml Other 40 ml Output Urine Total 750 ml 1520 ml Stool Total 100 ml # Bowel Movements 3 Laboratory Tests 12/05/17 04:57: White Blood Count 12.2H, Red Blood Count 3.39L, Hemoglobin 8.9L, Hematocrit 27.3L, Mean Corpuscular Volume 80, Mean Corpuscular Hemoglobin 26.2L, Mean Corpuscular Hemoglobin Concent 32.6, Red Cell Distribution Width 15.1H, Platelet Count 108L, Mean Platelet Volume 9.2, Neutrophils (%) (Auto) 84.3H, Lymphocytes (%) (Auto) 9.0L, Monocytes (%) (Auto) 4.1, Eosinophils (%) (Auto) 2.2, Basophils (%) (Auto) 0.3, Sodium Level 148H, Potassium Level 3.8, Chloride Level 119H, Carbon Dioxide Level 17L, Anion Gap 12, Blood Urea Nitrogen 42H, Creatinine 1.9H, Estimat Glomerular Filtration Rate , Glucose Level 164H, Uric Acid 4.8, Calcium Level 6.1L, Phosphorus Level 2.4L, Magnesium Level 2.1, Total Bilirubin 0.4, Gamma Glutamyl Transpeptidase 33, Aspartate Amino Transf (AST/ SGOT) 124H, Alanine Aminotransferase (ALT/SGPT) 152H, Alkaline Phosphatase 90, Total Creatine Kinase 6432H, Troponin I 0.134H, Pro-B-Type Natriuretic Peptide 2948H, Total Protein 5.7L, Albumin 2.0L, Globulin 3.7, Albumin/Globulin Ratio 0.5L, Random Vancomycin Level 10.3 12/05/17 15:43: Arterial Blood pH 7.357, Arterial Blood Partial Pressure CO2 25.7L, Arterial Blood Partial Pressure O2 84.4, Arterial Blood HCO3 14.1*L, Arterial Blood Oxygen Saturation 96.1, Arterial Blood Base Excess -10.1*L, Ebenezer Test Positive Height (Feet): 5 Height (Inches): 5.00 Weight (Pounds): 152 General Appearance: lethargic, confused, agitated Lauren Santoyo MD Dec 05, 2017 22:58
--- NOTE | 2017-12-05 23:29 | Cardiology Progress Note ---
Assessment/Plan Assessment/Plan 1. Septic shock in combination with hypovolemic shock, serum Na down to 148, continue IV fluid. Continue Midodrine. 2. Sinus tachycardia, resolved, most likely secondary to severe intravascular volume depletion, currently on appropriate fluid administration. 3. Slight elevation of troponin I level could be of a variety of etiologies in this patient, although [id number] myocardial infarction type 2 due to demand ischemia should be considered. Continue ASA and statins. Subjective Subjective Sinus rhythm at rate of 82. Objective Last 24 Hour Vital Signs Date Time Temp Pulse Resp B/P (MAP) Pulse Ox O2 Delivery O2 Flow Rate FiO2 12/05/17 22:30 90 34 125/52 (76) 99 12/05/17 22:00 82 31 128/56 (80) 99 12/05/17 21:30 82 31 124/48 (73) 99 12/05/17 21:08 82 31 30 12/05/17 21:00 81 32 102/57 (72) 99 12/05/17 20:30 82 32 110/50 (70) 99 12/05/17 20:00 98.7 81 31 117/49 (71) 99 12/05/17 20:00 Mechanical Ventilator 12/05/17 19:30 81 32 104/55 (71) 99 12/05/17 19:00 83 32 134/70 (91) 99 12/05/17 18:56 81 30 30 12/05/17 18:01 86 36 125/71 (89) 100 12/05/17 17:59 32 Mechanical Ventilator 12/05/17 17:21 86 30 35 12/05/17 17:00 83 30 125/63 (83) 100 12/05/17 16:00 81 12/05/17 16:00 99.0 81 31 133/45 (74) 99 12/05/17 16:00 35 12/05/17 16:00 Mechanical Ventilator 12/05/17 15:05 80 31 35 12/05/17 15:00 31 Mechanical Ventilator 35 12/05/17 15:00 35 12/05/17 15:00 80 32 126/71 (89) 100 12/05/17 14:00 79 26 109/59 (76) 97 12/05/17 14:00 30 Mechanical Ventilator 35 12/05/17 13:13 83 29 35 10/30/18 13:00 30 Mechanical Ventilator 35 12/05/17 13:00 79 26 101/54 (70) 98 12/05/17 12:00 88 12/05/17 12:00 30 Mechanical Ventilator 35 12/05/17 12:00 98.9 89 30 127/54 (78) 97 12/05/17 12:00 Mechanical Ventilator 12/05/17 11:33 99 12/05/17 11:30 35 12/05/17 11:30 79 31 35 12/05/17 11:00 89 28 147/63 (91) 97 12/05/17 11:00 25 Mechanical Ventilator 35 12/05/17 10:35 28 Mechanical Ventilator 35 12/05/17 10:00 81 27 127/52 (77) 99 12/05/17 10:00 25 Mechanical Ventilator 35 12/05/17 09:51 35 12/05/17 09:30 77 26 100/48 (65) 99 12/05/17 09:00 25 Mechanical Ventilator 35 12/05/17 09:00 77 26 119/58 (78) 99 12/05/17 08:37 108/58 12/05/17 08:35 82 27 35 12/05/17 08:30 80 27 125/60 (81) 99 12/05/17 08:30 35 12/05/17 08:00 79 29 121/53 (75) 100 12/05/17 08:00 35 12/05/17 08:00 Mechanical Ventilator 12/05/17 08:00 79 12/05/17 08:00 25 Mechanical Ventilator 35 12/05/17 07:30 78 27 121/53 (75) 99 12/05/17 07:06 82 27 35 12/05/17 07:00 83 28 132/67 (88) 100 12/05/17 07:00 26 Mechanical Ventilator 35 12/05/17 07:00 28 Mechanical Ventilator 35 12/05/17 06:30 79 28 122/59 (80) 99 12/05/17 06:00 81 30 123/60 (81) 100 12/05/17 06:00 30 Mechanical Ventilator 35 12/05/17 05:30 80 27 129/58 (81) 98 12/05/17 05:03 78 29 35 12/05/17 05:00 79 28 117/52 (73) 99 12/05/17 05:00 28 Mechanical Ventilator 35 12/05/17 04:30 80 27 112/61 (78) 98 12/05/17 04:00 35 12/05/17 04:00 Mechanical Ventilator 12/05/17 04:00 98.8 83 30 156/64 (94) 97 12/05/17 04:00 30 Mechanical Ventilator 35 12/05/17 03:59 87 12/05/17 03:30 78 26 119/58 (78) 98 12/05/17 03:08 79 26 35 12/05/17 03:00 79 26 119/55 (76) 98 12/05/17 03:00 26 Mechanical Ventilator 35 12/05/17 02:30 79 26 104/54 (71) 98 12/05/17 02:00 28 Mechanical Ventilator 35 12/05/17 02:00 80 28 116/55 (75) 98 12/05/17 01:30 79 27 119/57 (77) 98 12/05/17 01:00 79 27 118/58 (78) 98 12/05/17 01:00 28 Mechanical Ventilator 35 12/05/17 00:57 76 26 35 12/05/17 00:30 73 28 116/53 (74) 100 12/05/17 00:00 Mechanical Ventilator 12/05/17 00:00 99.1 74 31 106/51 (69) 100 12/05/17 00:00 35 12/05/17 00:00 31 Mechanical Ventilator 35 12/04/17 23:59 73 12/04/17 23:30 74 31 96/49 (65) 100 Intake and Output 12/04/17 12/05/17 18:59 06:59 Intake Total 2990.084 ml 1772.0 ml Output Total 750 ml 1620 ml Balance 2240.084 ml 152.0 ml IV Total 2780.084 ml 1372.0 ml Tube Feeding 210 ml 360 ml Other 40 ml Output Urine Total 750 ml 1520 ml Stool Total 100 ml # Bowel Movements 3 Laboratory Tests Test 12/05/17 04:57 12/05/17 15:43 White Blood Count 12.2 K/UL (4.8-10.8) H Red Blood Count 3.39 M/UL (4.70-6.10) L Hemoglobin 8.9 G/DL (14.2-18.0) L Hematocrit 27.3 % (42.0-52.0) L Mean Corpuscular Volume 80 FL (80-99) Mean Corpuscular Hemoglobin 26.2 PG (27.0-31.0) L Mean Corpuscular Hemoglobin Concent 32.6 G/DL (32.0-36.0) Red Cell Distribution Width 15.1 % (11.6-14.8) H Platelet Count 108 K/UL (150-450) L Mean Platelet Volume 9.2 FL (6.5-10.1) Neutrophils (%) (Auto) 84.3 % (45.0-75.0) H Lymphocytes (%) (Auto) 9.0 % (20.0-45.0) L Monocytes (%) (Auto) 4.1 % (1.0-10.0) Eosinophils (%) (Auto) 2.2 % (0.0-3.0) Basophils (%) (Auto) 0.3 % (0.0-2.0) Sodium Level 148 MMOL/L (136-145) H Potassium Level 3.8 MMOL/L (3.5-5.1) Chloride Level 119 MMOL/L (98-107) H Carbon Dioxide Level 17 MMOL/L (21-32) L Anion Gap 12 mmol/L (5-15) Blood Urea Nitrogen 42 mg/dL (7-18) H Creatinine 1.9 MG/DL (0.55-1.30) H Estimat Glomerular Filtration Rate mL/min (>60) Glucose Level 164 MG/DL (74-106) H Uric Acid 4.8 MG/DL (2.6-7.2) Calcium Level 6.1 MG/DL (8.5-10.1) L Phosphorus Level 2.4 MG/DL (2.5-4.9) L Magnesium Level 2.1 MG/DL (1.8-2.4) Total Bilirubin 0.4 MG/DL (0.2-1.0) Gamma Glutamyl Transpeptidase 33 U/L (5-85) Aspartate Amino Transf (AST/SGOT) 124 U/L (15-37) H Alanine Aminotransferase (ALT/SGPT) 152 U/L (12-78) H Alkaline Phosphatase 90 U/L (46-116) Total Creatine Kinase 6432 U/L (26-308) H Troponin I 0.134 ng/mL (0.000-0.056) Pro-B-Type Natriuretic Peptide 2948 pg/mL (0-125) H Total Protein 5.7 G/DL (6.4-8.2) L Albumin 2.0 G/DL (3.4-5.0) L Globulin 3.7 g/dL Albumin/Globulin Ratio 0.5 (1.0-2.7) L Random Vancomycin Level 10.3 ug/mL Arterial Blood pH 7.357 (7.350-7.450) Arterial Blood Partial Pressure CO2 25.7 mmHg (35.0-45.0) L Arterial Blood Partial Pressure O2 84.4 mmHg (75.0-100.0) Arterial Blood HCO3 14.1 mmol/L (22.0-26.0) *L Arterial Blood Oxygen Saturation 96.1 % (95-100) Arterial Blood Base Excess -10.1 (-2-2) *L Ebenezer Test Positive Objective HEENT: Atraumatic and normocephalic. Anicteric. Pupils are equal, round, and reactive to light and accommodation. Dry mucosal membranes. NECK: JVP less than 5 cm. No carotid bruit. Carotid upstrokes 2+ bilaterally. CARDIOVASCULAR: Normal S1, S2. Regular rhythm. Cannot appreciate any murmurs, gallops, or rubs. LUNGS: Diminished breath sounds in both lungs. ABDOMEN: Soft, nontender, and nondistended. Diminished bowel sounds. Presence of G-tube. No hepatosplenomegaly. EXTREMITIES: Contraction and pressure protection. No edema, clubbing, or cyanosis. Luke Estrada MD Dec 05, 2017 23:29
[2017-12-06] VITALS (29 sets, daily range): BP systolic 94–162; BP diastolic 40–92
[2017-12-06] MEDS: NovoLOG Insulin Flexpen SUBQ SCH ×6 (01:11→21:25)
[2017-12-06] MEDS: D5W w/KCl 20mEq 1,000 ML IV SCH ×2 (03:35→14:28)
[2017-12-06 05:39] LABS: BASOPHILS % (AUTO) 0.4 % (0.0-2.0); EOSINOPHILS % (AUTO) 2.2 % (0.0-3.0); HEMATOCRIT 30.9 % (42.0-52.0); HEMOGLOBIN 10.2 G/DL (14.2-18.0); LYMPHOCYTES % (AUTO) 10.8 % (20.0-45.0); MEAN CORPUSCULAR VOLUME 80 FL (80-99); MONOCYTES % (AUTO) 4.4 % (1.0-10.0); NEUTROPHILS % (AUTO) 82.1 % (45.0-75.0); PLATELET COUNT 122 K/UL (150-450); RED BLOOD COUNT 3.84 M/UL (4.70-6.10); RED CELL DISTRIBUTION WIDTH 16.1 % (11.6-14.8); WHITE BLOOD COUNT 15.2 K/UL (4.8-10.8)
[2017-12-06 05:55] LABS: ALANINE AMINOTRANSFERASE 209 U/L (12-78); ALBUMIN 2.2 G/DL (3.4-5.0); ALBUMIN/GLOBULIN RATIO 0.5 (1.0-2.7); ALKALINE PHOSPHATASE 148 U/L (46-116); ANION GAP 10 mmol/L (5-15); ASPARTATE AMINO TRANSFERASE 206 U/L (15-37); BILIRUBIN,TOTAL 0.5 MG/DL (0.2-1.0); BLOOD UREA NITROGEN 32 mg/dL (7-18); CARBON DIOXIDE 19 MMOL/L (21-32); CHLORIDE 120 MMOL/L (98-107); CREATININE 1.8 MG/DL (0.55-1.30); POTASSIUM 3.9 MMOL/L (3.5-5.1); SODIUM 149 MMOL/L (136-145)
[2017-12-06 05:59] LABS: PHOSPHORUS 1.8 MG/DL (2.5-4.9)
[2017-12-06 06:28] LABS: CREATINE KINASE 4781 U/L (26-308)
[2017-12-06] MEDS: Piperacillin/Tazobactam 3.375 GM in NS 110 ML IVPB SCH ×3 (06:34→21:31)
--- NOTE | 2017-12-06 06:40 | General Progress Note ---
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 --> Anemia w/u has been reviewed. Will trend CBC daily --> No evidence of hemolysis noted, peripheral smear reviewed --> Hgb goal >7. Transfuse as needed. # Leukocytosis. Likely related to underlying infection vs reactive process. --> Imaging has been reviewed. Shows Stable cardiomegaly. Slight haziness of the pulmonary vascularity suggests mild interstitial edema. Unchanged elevation of the left hemidiaphragm. --> Blood cx and urine cx have been reviewed. --> Has been started on abx, empiric tx # Thrombocytopenia. Potential causes multifactorial, evaluate leivmer and viral etiologies. --> Hep panel negative and HIV is negative --> Ordered US abd for evaluation of cirrhosis and hsm - reviewed and is hsm and cirrhosis --> Abx and other meds have been reviewed --> Ok for ppx if heparin >50k with heparin sq --> currently appears to have stabilized # Constipation. --> ordered KUB evaluate abdominal distention - No acute process. Findings as noted --> electrolyte correction --> prevacid GT --> bowel regime # Sepsis. # Malnutrition. --> peg GREATLY APPRECIATE CONSULTATION. Subjective Constitutional: Denies: no symptoms, chills, diaphoresis, fever, malaise, weakness, other HEENT: Denies: no symptoms, eye pain, blurred vision, tearing, double vision, ear pain, ear discharge, nose pain, nose congestion, throat pain, throat swelling, mouth pain, mouth swelling, other Cardiovascular: Denies: no symptoms, chest pain, edema, irregular heart rate, lightheadedness, palpitations, syncope, other Respiratory: Denies: no symptoms, cough, orthopnea, shortness of breath, SOB with excertion, SOB at rest, sputum, stridor, wheezing, other Allergies: Coded Allergies: TERAZOSIN (Verified Allergy, Unknown, 10/27/17) Subjective Pt remains in ICU. Intubated. No new changes. H/H stable. Objective Last 24 Hour Vital Signs Date Time Temp Pulse Resp B/P (MAP) Pulse Ox O2 Delivery O2 Flow Rate FiO2 12/06/17 06:00 87 28 134/56 (82) 100 12/06/17 05:30 88 29 135/56 (82) 100 12/06/17 05:00 88 29 132/64 (86) 100 12/06/17 05:00 29 Mechanical Ventilator 35 12/06/17 04:47 86 26 30 12/06/17 04:30 89 29 112/55 (74) 99 12/06/17 04:00 Mechanical Ventilator 12/06/17 04:00 35 12/06/17 04:00 98.9 89 29 126/59 (81) 99 12/06/17 04:00 29 Mechanical Ventilator 35 12/06/17 04:00 86 12/06/17 03:30 89 30 136/58 (84) 99 12/06/17 03:14 88 30 30 12/06/17 03:00 30 Mechanical Ventilator 35 12/06/17 03:00 89 30 131/58 (82) 100 12/06/17 02:00 31 Mechanical Ventilator 35 12/06/17 02:00 86 32 142/52 (82) 99 12/06/17 01:30 86 32 127/58 (81) 99 12/06/17 01:00 31 Mechanical Ventilator 35 12/06/17 01:00 87 31 131/55 (80) 99 12/06/17 00:43 88 31 30 12/06/17 00:30 87 31 94/59 (71) 99 12/06/17 00:00 35 12/06/17 00:00 87 12/06/17 00:00 Mechanical Ventilator 12/06/17 00:00 31 Mechanical Ventilator 35 12/06/17 00:00 98.8 88 31 103/56 (72) 99 12/05/17 23:05 80 30 30 12/05/17 23:00 32 Mechanical Ventilator 35 12/05/17 22:30 90 34 125/52 (76) 99 12/05/17 22:00 82 31 128/56 (80) 99 12/05/17 22:00 33 Mechanical Ventilator 35 12/05/17 21:30 82 31 124/48 (73) 99 12/05/17 21:08 82 31 30 12/05/17 21:00 30 Mechanical Ventilator 35 12/05/17 21:00 81 32 102/57 (72) 99 12/05/17 20:30 82 32 110/50 (70) 99 12/05/17 20:00 98.7 81 31 117/49 (71) 99 12/05/17 20:00 87 12/05/17 20:00 Mechanical Ventilator 12/05/17 20:00 31 Mechanical Ventilator 35 12/05/17 20:00 35 12/05/17 19:30 81 32 104/55 (71) 99 12/05/17 19:00 83 32 134/70 (91) 99 12/05/17 19:00 32 Mechanical Ventilator 35 12/05/17 18:56 81 30 30 12/05/17 18:01 86 36 125/71 (89) 100 12/05/17 17:59 32 Mechanical Ventilator 12/05/17 17:21 86 30 35 12/05/17 17:00 83 30 125/63 (83) 100 12/05/17 16:00 81 12/05/17 16:00 99.0 81 31 133/45 (74) 99 12/05/17 16:00 35 12/05/17 16:00 Mechanical Ventilator 12/05/17 15:05 80 31 35 12/05/17 15:00 31 Mechanical Ventilator 35 12/05/17 15:00 35 12/05/17 15:00 80 32 126/71 (89) 100 12/05/17 14:00 79 26 109/59 (76) 97 12/05/17 14:00 30 Mechanical Ventilator 35 12/05/17 13:13 83 29 35 12/05/17 13:00 30 Mechanical Ventilator 35 12/05/17 13:00 79 26 101/54 (70) 98 12/05/17 12:00 88 12/05/17 12:00 30 Mechanical Ventilator 35 12/05/17 12:00 98.9 89 30 127/54 (78) 97 12/05/17 12:00 Mechanical Ventilator 12/05/17 11:33 99 12/05/17 11:30 35 12/05/17 11:30 79 31 35 12/05/17 11:00 89 28 147/63 (91) 97 12/05/17 11:00 25 Mechanical Ventilator 35 12/05/17 10:35 28 Mechanical Ventilator 35 12/05/17 10:00 81 27 127/52 (77) 99 12/05/17 10:00 25 Mechanical Ventilator 35 12/05/17 09:51 35 12/05/17 09:30 77 26 100/48 (65) 99 12/05/17 09:00 25 Mechanical Ventilator 35 12/05/17 09:00 77 26 119/58 (78) 99 12/05/17 08:37 108/58 12/05/17 08:35 82 27 35 12/05/17 08:30 80 27 125/60 (81) 99 12/05/17 08:30 35 12/05/17 08:00 79 29 121/53 (75) 100 12/05/17 08:00 35 12/05/17 08:00 Mechanical Ventilator 12/05/17 08:00 79 12/05/17 08:00 25 Mechanical Ventilator 35 12/05/17 07:30 78 27 121/53 (75) 99 12/05/17 07:06 82 27 35 12/05/17 07:00 83 28 132/67 (88) 100 12/05/17 07:00 26 Mechanical Ventilator 35 12/05/17 07:00 28 Mechanical Ventilator 35 Intake and Output 12/05/17 12/06/17 19:00 07:00 Intake Total 1803.502 ml 1605.0 ml Output Total 1335 ml 1665 ml Balance 468.502 ml -60.0 ml Free Water 120 ml 100 ml IV Total 1323.502 ml 1115.0 ml Tube Feeding 360 ml 330 ml Other 60 ml Output Urine Total 1335 ml 1665 ml # Bowel Movements 100 Laboratory Tests 12/05/17 15:43: Arterial Blood pH 7.357, Arterial Blood Partial Pressure CO2 25.7L, Arterial Blood Partial Pressure O2 84.4, Arterial Blood HCO3 14.1*L, Arterial Blood Oxygen Saturation 96.1, Arterial Blood Base Excess -10.1*L, Ebenezer Test Positive 12/06/17 04:30: White Blood Count 15.2H, Red Blood Count 3.84L, Hemoglobin 10.2L, Hematocrit 30.9L, Mean Corpuscular Volume 80, Mean Corpuscular Hemoglobin 26.6L, Mean Corpuscular Hemoglobin Concent 33.1, Red Cell Distribution Width 16.1H, Platelet Count 122L, Mean Platelet Volume 9.1, Neutrophils (%) (Auto) 82.1H, Lymphocytes (%) (Auto) 10.8L, Monocytes (%) (Auto) 4.4, Eosinophils (%) (Auto) 2.2, Basophils (%) (Auto) 0.4, Sodium Level 149H, Potassium Level 3.9, Chloride Level 120H, Carbon Dioxide Level 19L, Anion Gap 10, Blood Urea Nitrogen 32H, Creatinine 1.8H, Estimat Glomerular Filtration Rate , Glucose Level 156H, Uric Acid 4.2, Calcium Level 7.0L, Phosphorus Level 1.8L, Magnesium Level 2.5H, Total Bilirubin 0.5, Aspartate Amino Transf (AST/SGOT) 206H, Alanine Aminotransferase (ALT/SGPT) 209H, Alkaline Phosphatase 148H, Total Creatine Kinase 4781H, C-Reactive Protein, Quantitative 12.9H, Total Protein 6.9, Albumin 2.2L, Globulin 4.7, Albumin/Globulin Ratio 0.5L, Random Vancomycin Level 14.2 Height (Feet): 5 Height (Inches): 5.00 Weight (Pounds): 152 General Appearance: no apparent distress EENT: normal ENT inspection Neck: supple Cardiovascular: regular rhythm, no JVD Respiratory/Chest: normal breath sounds Abdomen: non tender Extremities: normal inspection Edema: 1+ Leg (L), 1+ Leg (R) Neurologic: alert Skin: warm/dry Beny Dalton MD Dec 06, 2017 06:40
--- NOTE | 2017-12-06 08:53 | General Progress Note ---
Assessment/Plan Problem List: (1) Renal failure (ARF), acute on chronic ICD Codes: N17.9 - Acute kidney failure, unspecified; N18.9 - Chronic kidney disease, unspecified SNOMED: 340224902 Qualifiers: Qualified Codes: N17.9 - Acute kidney failure, unspecified; N18.3 - Chronic kidney disease, stage 3 (moderate) (2) NSTEMI (non-ST elevated myocardial infarction) ICD Codes: I21.4 - Non-ST elevation (NSTEMI) myocardial infarction SNOMED: 344214347 (3) Hypernatremia ICD Codes: E87.0 - Hyperosmolality and hypernatremia SNOMED: 19224196 (4) DM (5) Rhabdomyolysis ICD Codes: M62.82 - Rhabdomyolysis SNOMED: 442072320 (6) Hypoxemia ICD Codes: R09.02 - Hypoxemia SNOMED: 522734324 (7) Severe sepsis ICD Codes: A41.9 - Sepsis, unspecified organism; R65.20 - Severe sepsis without septic shock SNOMED: 88417540 Assessment/Plan glucose values improved TF tolerated continue Levemir 8 units bid continue NISS every 4 hours Subjective ROS Limited/Unobtainable: Yes Allergies: Coded Allergies: TERAZOSIN (Verified Allergy, Unknown, 10/27/17) Subjective intubated in ICU events noted Objective Last 24 Hour Vital Signs Date Time Temp Pulse Resp B/P (MAP) Pulse Ox O2 Delivery O2 Flow Rate FiO2 12/06/17 07:09 85 29 30 12/06/17 07:00 28 Mechanical Ventilator 35 12/06/17 07:00 87 28 133/57 (82) 100 12/06/17 06:00 29 Mechanical Ventilator 35 12/06/17 06:00 87 28 134/56 (82) 100 12/06/17 05:30 88 29 135/56 (82) 100 12/06/17 05:00 88 29 132/64 (86) 100 12/06/17 05:00 29 Mechanical Ventilator 35 12/06/17 04:47 86 26 30 12/06/17 04:30 89 29 112/55 (74) 99 12/06/17 04:00 Mechanical Ventilator 12/06/17 04:00 35 12/06/17 04:00 98.9 89 29 126/59 (81) 99 12/06/17 04:00 29 Mechanical Ventilator 35 12/06/17 04:00 86 12/06/17 03:30 89 30 136/58 (84) 99 12/06/17 03:14 88 30 30 12/06/17 03:00 30 Mechanical Ventilator 35 12/06/17 03:00 89 30 131/58 (82) 100 12/06/17 02:00 31 Mechanical Ventilator 35 12/06/17 02:00 86 32 142/52 (82) 99 12/06/17 01:30 86 32 127/58 (81) 99 12/06/17 01:00 31 Mechanical Ventilator 35 12/06/17 01:00 87 31 131/55 (80) 99 12/06/17 00:43 88 31 30 12/06/17 00:30 87 31 94/59 (71) 99 12/06/17 00:00 35 12/06/17 00:00 87 12/06/17 00:00 Mechanical Ventilator 12/06/17 00:00 31 Mechanical Ventilator 35 12/06/17 00:00 98.8 88 31 103/56 (72) 99 12/05/17 23:05 80 30 30 12/05/17 23:00 32 Mechanical Ventilator 35 12/05/17 22:30 90 34 125/52 (76) 99 12/05/17 22:00 82 31 128/56 (80) 99 12/05/17 22:00 33 Mechanical Ventilator 35 12/05/17 21:30 82 31 124/48 (73) 99 12/05/17 21:08 82 31 30 12/05/17 21:00 30 Mechanical Ventilator 35 12/05/17 21:00 81 32 102/57 (72) 99 12/05/17 20:30 82 32 110/50 (70) 99 12/05/17 20:00 98.7 81 31 117/49 (71) 99 12/05/17 20:00 87 12/05/17 20:00 Mechanical Ventilator 12/05/17 20:00 31 Mechanical Ventilator 35 12/05/17 20:00 35 12/05/17 19:30 81 32 104/55 (71) 99 12/05/17 19:00 83 32 134/70 (91) 99 12/05/17 19:00 32 Mechanical Ventilator 35 12/05/17 18:56 81 30 30 12/05/17 18:01 86 36 125/71 (89) 100 12/05/17 17:59 32 Mechanical Ventilator 12/05/17 17:21 86 30 35 12/05/17 17:00 83 30 125/63 (83) 100 12/05/17 16:00 81 12/05/17 16:00 99.0 81 31 133/45 (74) 99 12/05/17 16:00 35 12/05/17 16:00 Mechanical Ventilator 12/05/17 15:05 80 31 35 12/05/17 15:00 31 Mechanical Ventilator 35 12/05/17 15:00 35 12/05/17 15:00 80 32 126/71 (89) 100 12/05/17 14:00 79 26 109/59 (76) 97 12/05/17 14:00 30 Mechanical Ventilator 35 12/05/17 13:13 83 29 35 12/05/17 13:00 30 Mechanical Ventilator 35 12/05/17 13:00 79 26 101/54 (70) 98 12/05/17 12:00 88 12/05/17 12:00 30 Mechanical Ventilator 35 12/05/17 12:00 98.9 89 30 127/54 (78) 97 12/05/17 12:00 Mechanical Ventilator 12/05/17 11:33 99 12/05/17 11:30 35 12/05/17 11:30 79 31 35 12/05/17 11:00 89 28 147/63 (91) 97 12/05/17 11:00 25 Mechanical Ventilator 35 12/05/17 10:35 28 Mechanical Ventilator 35 12/05/17 10:00 81 27 127/52 (77) 99 12/05/17 10:00 25 Mechanical Ventilator 35 12/05/17 09:51 35 12/05/17 09:30 77 26 100/48 (65) 99 12/05/17 09:00 25 Mechanical Ventilator 35 12/05/17 09:00 77 26 119/58 (78) 99 Intake and Output 12/05/17 12/06/17 19:00 07:00 Intake Total 1803.502 ml 1845.0 ml Output Total 1335 ml 1815 ml Balance 468.502 ml 30.0 ml Free Water 120 ml 100 ml IV Total 1323.502 ml 1325.0 ml Tube Feeding 360 ml 360 ml Other 60 ml Output Urine Total 1335 ml 1815 ml # Bowel Movements 100 Laboratory Tests 12/05/17 15:43: Arterial Blood pH 7.357, Arterial Blood Partial Pressure CO2 25.7L, Arterial Blood Partial Pressure O2 84.4, Arterial Blood HCO3 14.1*L, Arterial Blood Oxygen Saturation 96.1, Arterial Blood Base Excess -10.1*L, Ebenezer Test Positive 12/06/17 04:30: White Blood Count 15.2H, Red Blood Count 3.84L, Hemoglobin 10.2L, Hematocrit 30.9L, Mean Corpuscular Volume 80, Mean Corpuscular Hemoglobin 26.6L, Mean Corpuscular Hemoglobin Concent 33.1, Red Cell Distribution Width 16.1H, Platelet Count 122L, Mean Platelet Volume 9.1, Neutrophils (%) (Auto) 82.1H, Lymphocytes (%) (Auto) 10.8L, Monocytes (%) (Auto) 4.4, Eosinophils (%) (Auto) 2.2, Basophils (%) (Auto) 0.4, Sodium Level 149H, Potassium Level 3.9, Chloride Level 120H, Carbon Dioxide Level 19L, Anion Gap 10, Blood Urea Nitrogen 32H, Creatinine 1.8H, Estimat Glomerular Filtration Rate , Glucose Level 156H, Uric Acid 4.2, Calcium Level 7.0L, Phosphorus Level 1.8L, Magnesium Level 2.5H, Total Bilirubin 0.5, Aspartate Amino Transf (AST/SGOT) 206H, Alanine Aminotransferase (ALT/SGPT) 209H, Alkaline Phosphatase 148H, Total Creatine Kinase 4781H, C-Reactive Protein, Quantitative 12.9H, Total Protein 6.9, Albumin 2.2L, Globulin 4.7, Albumin/Globulin Ratio 0.5L, Random Vancomycin Level 14.2 Height (Feet): 5 Height (Inches): 5.00 Weight (Pounds): 155 General Appearance: other - intubated EENT: other - ETT Neck: normal alignment Cardiovascular: tachycardia Respiratory/Chest: decreased breath sounds Abdomen: normal bowel sounds, other - PEG Pelvis: normal external exam Edema: 1+ Arm (L), 1+ Arm (R), 1+ Leg (L), 1+ Leg (R), 1+ Pedal (L), 1+ Pedal ( R), 1+ Generalized Objective Current Medications Medications (Trade) Dose Ordered Sig/Ruthie Route PRN Reason Start Time Stop Time Status Last Admin Dose Admin Albuterol/ Ipratropium (Albuterol/ Ipratropium) 3 ml Q4H PRN HHN Shortness of Breath 12/05/17 15:21 12/10/17 15:20 Aspirin (ASA) 162 mg DAILY NG 12/02/17 09:00 01/01/18 08:59 12/05/17 08:35 Chlorhexidine Gluconate (Rachael-Hex 2%) 1 applic DAILY@2000 TOPIC 12/04/17 20:00 01/03/18 19:59 12/05/17 21:00 Dextrose (Dextrose 50%) 25 ml Q30M PRN IV Hypoglycemia 12/04/17 07:00 01/03/18 06:59 Dextrose (Dextrose 50%) 50 ml Q30M PRN IV Hypoglycemia 12/04/17 07:00 01/03/18 06:59 Dextrose/ Electrolytes 1,000 ml @ 100 mls/hr Q10H IV 12/04/17 11:00 01/03/18 10:59 12/06/17 03:35 Fentanyl Citrate 1000 mcg/Sodium Chloride 100 ml @ 0 mls/hr Q24H PRN IV Restlessness 12/03/17 21:00 12/10/17 20:59 12/05/17 10:35 Heparin Sodium (Porcine) (Heparin 5000 units/ml) 5,000 units EVERY 12 HOURS SUBQ 12/01/17 21:00 12/31/17 20:59 12/05/17 08:39 Insulin Aspart (NovoLOG) Q4HR SUBQ 12/02/17 21:00 01/01/18 20:59 12/06/17 06:37 Insulin Detemir (Levemir) 8 units BID SUBQ 12/04/17 09:00 01/03/18 08:59 12/05/17 17:45 Lidocaine HCl (Xylocaine 1% 30ml) 30 ml ONCE INJ 12/04/17 12:00 12/06/17 11:59 Loperamide HCl (Imodium) 2 mg Q6H PRN NG Diarrhea 12/03/17 08:30 01/02/18 08:29 12/03/17 13:14 Midodrine (Pro-Amatine) 5 mg THREE TIMES A DAY GT 12/04/17 13:00 01/02/18 17:59 12/05/17 17:42 Nitroglycerin (Ntg) 1 patch Q24H TDERMAL 12/02/17 09:00 01/01/18 08:59 12/05/17 08:37 Pantoprazole (Protonix) 40 mg EVERY 12 HOURS IVP 12/01/17 21:00 12/31/17 20:59 12/05/17 21:39 Piperacillin Sod/ Tazobactam Sod 3.375 gm/Sodium Chloride 110 ml @ 27.5 mls/hr Q8HR IVPB 12/05/17 09:00 12/12/17 08:59 12/06/17 06:34 Quetiapine Fumarate (SEROquel) 12.5 mg Q4H PRN GT agitation 12/04/17 20:45 01/03/18 20:29 Sucralfate (Carafate) 1 gm FOUR TIMES A DAY GT 12/01/17 18:00 12/31/17 17:59 12/05/17 21:39 Vancomycin HCl/ Dextrose 250 ml @ 166.667 mls/hr Q24H IVPB 12/05/17 13:00 12/10/17 12:59 12/05/17 12:27 Item Value Date Time Bedside Blood Glucose 155 mg/dl H 12/06/17 0637 Bedside Blood Glucose 207 mg/dl H 12/06/17 0111 Bedside Blood Glucose 244 mg/dl H 12/05/17 2140 Bedside Blood Glucose 192 mg/dl H 12/05/17 1745 Bedside Blood Glucose 195 mg/dl H 12/05/17 1227 Bedside Blood Glucose 204 mg/dl H 12/05/17 0840 Bedside Blood Glucose 166 mg/dl H 12/05/17 0441 Stefan Leon MD Dec 06, 2017 08:53
[2017-12-06] MEDS: Aspirin Baby 81mg NG SCH (09:35)
[2017-12-06] MEDS: Pantoprazole Inj IVP SCH ×2 (09:35→21:24)
[2017-12-06] MEDS: Sucralfate 1gm tab GT SCH ×4 (09:36→21:23)
[2017-12-06] MEDS: Nitroglycerin Patch 0.4mg TDERMAL SCH (09:36)
[2017-12-06] MEDS: Heparin 5000 units/ml inj SUBQ SCH ×2 (09:37→21:25)
[2017-12-06] MEDS: Levemir Flexpen SUBQ SCH ×2 (09:39→18:14)
[2017-12-06] MEDS ORDERED: Potassium Phosphate 30 MM in NS 275 ML IV SCH (11:00)
--- NOTE | 2017-12-06 11:07 | Diagnostic Imaging Report ---
Indication: Tachypnea Technique: One view of the chest Comparison: 12/01/2017; also 12/04/2017 post PICC radiograph Findings: Stable satisfactory position of endotracheal tube. Right arm PICC remains in stable satisfactory position. Retrocardiac consolidation and likely small left pleural effusion persists, unchanged. Impression: Unchanged, over 2 days, findings as above.
--- NOTE | 2017-12-06 11:09 | GI Progress Note ---
Assessment/Plan Problems: (1) Malnutrition ICD Codes: E46 - Unspecified protein-calorie malnutrition SNOMED: 21634712 (2) Pancreatitis ICD Codes: K85.90 - Acute pancreatitis without necrosis or infection, unspecified SNOMED: 56299089 Qualifiers: Qualified Codes: K85.90 - Acute pancreatitis without necrosis or infection, unspecified (3) Constipation ICD Codes: K59.00 - Constipation, unspecified SNOMED: 75440039 (4) PEG (percutaneous endoscopic gastrostomy) status ICD Codes: Z93.1 - Gastrostomy status SNOMED: 662451319, 052630660 (5) DM (6) Severe sepsis ICD Codes: A41.9 - Sepsis, unspecified organism; R65.20 - Severe sepsis without septic shock SNOMED: 45090736 Status: unchanged Status Narrative Discussed with Dr. Coronel. Assessment/Plan KUB reviewed for abdominal distention >> no acute findings transaminitis >> hep panel negative not stable for GI procedures prn transfusions on GTF ,renal 30 cc imodium prn rectal tube fu nephrology fu labs ppi BID trend LFTs The patient was seen and examined at bedside and all new and available data was reviewed in the patients chart. I agree with the above findings, impression and plan. (Patient seen earlier today. Signature stamp does not reflect patient encounter time.). - Juan Coronel MD Subjective Subjective limited Objective Last 24 Hour Vital Signs Date Time Temp Pulse Resp B/P (MAP) Pulse Ox O2 Delivery O2 Flow Rate FiO2 12/06/17 10:56 78 23 30 12/06/17 10:00 86 23 162/53 (89) 100 12/06/17 09:40 24 Mechanical Ventilator 30 12/06/17 09:36 110/52 12/06/17 09:00 85 25 110/52 (71) 100 12/06/17 08:54 88 26 30 12/06/17 08:53 100 12/06/17 08:50 85 28 30 12/06/17 08:00 Mechanical Ventilator 12/06/17 08:00 87 28 133/57 (82) 100 12/06/17 08:00 87 12/06/17 08:00 35 12/06/17 07:09 85 29 30 12/06/17 07:00 28 Mechanical Ventilator 35 12/06/17 07:00 87 28 133/57 (82) 100 12/06/17 06:00 29 Mechanical Ventilator 35 12/06/17 06:00 87 28 134/56 (82) 100 12/06/17 05:30 88 29 135/56 (82) 100 12/06/17 05:00 88 29 132/64 (86) 100 12/06/17 05:00 29 Mechanical Ventilator 35 12/06/17 04:47 86 26 30 12/06/17 04:30 89 29 112/55 (74) 99 12/06/17 04:00 Mechanical Ventilator 12/06/17 04:00 35 12/06/17 04:00 98.9 89 29 126/59 (81) 99 12/06/17 04:00 29 Mechanical Ventilator 35 12/06/17 04:00 86 12/06/17 03:30 89 30 136/58 (84) 99 12/06/17 03:14 88 30 30 12/06/17 03:00 30 Mechanical Ventilator 35 12/06/17 03:00 89 30 131/58 (82) 100 12/06/17 02:00 31 Mechanical Ventilator 35 12/06/17 02:00 86 32 142/52 (82) 99 12/06/17 01:30 86 32 127/58 (81) 99 12/06/17 01:00 31 Mechanical Ventilator 35 12/06/17 01:00 87 31 131/55 (80) 99 12/06/17 00:43 88 31 30 12/06/17 00:30 87 31 94/59 (71) 99 12/06/17 00:00 35 12/06/17 00:00 87 12/06/17 00:00 Mechanical Ventilator 12/06/17 00:00 31 Mechanical Ventilator 35 12/06/17 00:00 98.8 88 31 103/56 (72) 99 12/05/17 23:05 80 30 30 12/05/17 23:00 32 Mechanical Ventilator 35 12/05/17 22:30 90 34 125/52 (76) 99 12/05/17 22:00 82 31 128/56 (80) 99 12/05/17 22:00 33 Mechanical Ventilator 35 12/05/17 21:30 82 31 124/48 (73) 99 12/05/17 21:08 82 31 30 12/05/17 21:00 30 Mechanical Ventilator 35 12/05/17 21:00 81 32 102/57 (72) 99 12/05/17 20:30 82 32 110/50 (70) 99 12/05/17 20:00 98.7 81 31 117/49 (71) 99 12/05/17 20:00 87 12/05/17 20:00 Mechanical Ventilator 12/05/17 20:00 31 Mechanical Ventilator 35 12/05/17 20:00 35 12/05/17 19:30 81 32 104/55 (71) 99 12/05/17 19:00 83 32 134/70 (91) 99 12/05/17 19:00 32 Mechanical Ventilator 35 12/05/17 18:56 81 30 30 12/05/17 18:01 86 36 125/71 (89) 100 12/05/17 17:59 32 Mechanical Ventilator 12/05/17 17:21 86 30 35 12/05/17 17:00 83 30 125/63 (83) 100 12/05/17 16:00 81 12/05/17 16:00 99.0 81 31 133/45 (74) 99 12/05/17 16:00 35 12/05/17 16:00 Mechanical Ventilator 12/05/17 15:05 80 31 35 12/05/17 15:00 31 Mechanical Ventilator 35 12/05/17 15:00 35 12/05/17 15:00 80 32 126/71 (89) 100 12/05/17 14:00 79 26 109/59 (76) 97 12/05/17 14:00 30 Mechanical Ventilator 35 12/05/17 13:13 83 29 35 12/05/17 13:00 30 Mechanical Ventilator 35 12/05/17 13:00 79 26 101/54 (70) 98 12/05/17 12:00 88 12/05/17 12:00 30 Mechanical Ventilator 35 12/05/17 12:00 98.9 89 30 127/54 (78) 97 12/05/17 12:00 Mechanical Ventilator 12/05/17 11:33 99 12/05/17 11:30 35 12/05/17 11:30 79 31 35 Intake and Output 12/05/17 12/06/17 19:00 07:00 Intake Total 1803.502 ml 1845.0 ml Output Total 1335 ml 1815 ml Balance 468.502 ml 30.0 ml Free Water 120 ml 100 ml IV Total 1323.502 ml 1325.0 ml Tube Feeding 360 ml 360 ml Other 60 ml Output Urine Total 1335 ml 1815 ml # Bowel Movements 100 Laboratory Tests Test 12/05/17 15:43 12/06/17 04:30 Arterial Blood pH 7.357 (7.350-7.450) Arterial Blood Partial Pressure CO2 25.7 mmHg (35.0-45.0) L Arterial Blood Partial Pressure O2 84.4 mmHg (75.0-100.0) Arterial Blood HCO3 14.1 mmol/L (22.0-26.0) *L Arterial Blood Oxygen Saturation 96.1 % (95-100) Arterial Blood Base Excess -10.1 (-2-2) *L Ebenezer Test Positive White Blood Count 15.2 K/UL (4.8-10.8) H Red Blood Count 3.84 M/UL (4.70-6.10) L Hemoglobin 10.2 G/DL (14.2-18.0) L Hematocrit 30.9 % (42.0-52.0) L Mean Corpuscular Volume 80 FL (80-99) Mean Corpuscular Hemoglobin 26.6 PG (27.0-31.0) L Mean Corpuscular Hemoglobin Concent 33.1 G/DL (32.0-36.0) Red Cell Distribution Width 16.1 % (11.6-14.8) H Platelet Count 122 K/UL (150-450) L Mean Platelet Volume 9.1 FL (6.5-10.1) Neutrophils (%) (Auto) 82.1 % (45.0-75.0) H Lymphocytes (%) (Auto) 10.8 % (20.0-45.0) L Monocytes (%) (Auto) 4.4 % (1.0-10.0) Eosinophils (%) (Auto) 2.2 % (0.0-3.0) Basophils (%) (Auto) 0.4 % (0.0-2.0) Sodium Level 149 MMOL/L (136-145) H Potassium Level 3.9 MMOL/L (3.5-5.1) Chloride Level 120 MMOL/L (98-107) H Carbon Dioxide Level 19 MMOL/L (21-32) L Anion Gap 10 mmol/L (5-15) Blood Urea Nitrogen 32 mg/dL (7-18) H Creatinine 1.8 MG/DL (0.55-1.30) H Estimat Glomerular Filtration Rate mL/min (>60) Glucose Level 156 MG/DL (74-106) H Uric Acid 4.2 MG/DL (2.6-7.2) Calcium Level 7.0 MG/DL (8.5-10.1) L Phosphorus Level 1.8 MG/DL (2.5-4.9) L Magnesium Level 2.5 MG/DL (1.8-2.4) H Total Bilirubin 0.5 MG/DL (0.2-1.0) Aspartate Amino Transf (AST/SGOT) 206 U/L (15-37) H Alanine Aminotransferase (ALT/SGPT) 209 U/L (12-78) H Alkaline Phosphatase 148 U/L (46-116) H Total Creatine Kinase 4781 U/L (26-308) H C-Reactive Protein, Quantitative 12.9 mg/dL (0.00-0.90) H Total Protein 6.9 G/DL (6.4-8.2) Albumin 2.2 G/DL (3.4-5.0) L Globulin 4.7 g/dL Albumin/Globulin Ratio 0.5 (1.0-2.7) L Random Vancomycin Level 14.2 ug/mL Height (Feet): 5 Height (Inches): 5.00 Weight (Pounds): 155 General Appearance: no apparent distress, thin Cardiovascular: normal rate Respiratory/Chest: no respiratory distress Abdominal Exam: normal bowel sounds, non tender, soft, GT site - c/d/i Extremities: non-tender Kishan Hopkins ADVERTISING EXECUTIVE Dec 06, 2017 11:09
--- NOTE | 2017-12-06 12:16 | Pulmonolgy Critical Care Note ---
Critical Care - Asmt/Plan Problems: (1) Hypernatremia (2) NSTEMI (non-ST elevated myocardial infarction) (3) UTI (urinary tract infection) (4) Severe sepsis (5) Respiratory failure (6) Renal failure (ARF), acute on chronic (7) Malnutrition (8) Pancreatitis (9) Pneumonia (10) Rhabdomyolysis (11) Hypoxemia (12) PEG (percutaneous endoscopic gastrostomy) status Respiratory: monitor respiratory rate, weaning trial - Continue SBT, possible extubation later, will hold FENT and TF, other - PRN HHN's, pulm hygiene Cardiac: continue to monitor HR/BP Renal: F/U I&O, keep IV fluid, check electrolytes Infectious Disease: continue antibiotics Gastrointestinal: hold feedings - for extubation Endocrine: monitor blood sugar, check TSH Neurologic: PRN Ativan, other - Fen held Prophylaxis: Protonix, Heparin Disposition: keep in ICU Time Spent (Minutes): 40 Notes 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[employer], 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, ID, GI, 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 Discussed with: nurses, consultants Critical Care - Objective Last 24 Hour Vital Signs Date Time Temp Pulse Resp B/P (MAP) Pulse Ox O2 Delivery O2 Flow Rate FiO2 12/06/17 11:00 78 24 97/44 (61) 100 12/06/17 11:00 23 Mechanical Ventilator 30 12/06/17 10:56 78 23 30 12/06/17 10:00 86 23 162/53 (89) 100 12/06/17 10:00 23 Mechanical Ventilator 30 12/06/17 09:40 24 Mechanical Ventilator 30 12/06/17 09:36 110/52 12/06/17 09:00 30 12/06/17 09:00 25 Mechanical Ventilator 30 12/06/17 09:00 85 25 110/52 (71) 100 12/06/17 08:54 88 26 30 12/06/17 08:53 100 12/06/17 08:50 85 28 30 12/06/17 08:30 35 12/06/17 08:00 Mechanical Ventilator 12/06/17 08:00 28 Mechanical Ventilator 30 12/06/17 08:00 87 28 133/57 (82) 100 12/06/17 08:00 87 12/06/17 08:00 35 12/06/17 07:09 85 29 30 12/06/17 07:00 28 Mechanical Ventilator 35 12/06/17 07:00 87 28 133/57 (82) 100 12/06/17 06:00 29 Mechanical Ventilator 35 12/06/17 06:00 87 28 134/56 (82) 100 12/06/17 05:30 88 29 135/56 (82) 100 12/06/17 05:00 88 29 132/64 (86) 100 12/06/17 05:00 29 Mechanical Ventilator 35 12/06/17 04:47 86 26 30 12/06/17 04:30 89 29 112/55 (74) 99 12/06/17 04:00 Mechanical Ventilator 12/06/17 04:00 35 12/06/17 04:00 98.9 89 29 126/59 (81) 99 12/06/17 04:00 29 Mechanical Ventilator 35 12/06/17 04:00 86 12/06/17 03:30 89 30 136/58 (84) 99 12/06/17 03:14 88 30 30 12/06/17 03:00 30 Mechanical Ventilator 35 12/06/17 03:00 89 30 131/58 (82) 100 12/06/17 02:00 31 Mechanical Ventilator 35 12/06/17 02:00 86 32 142/52 (82) 99 12/06/17 01:30 86 32 127/58 (81) 99 12/06/17 01:00 31 Mechanical Ventilator 35 12/06/17 01:00 87 31 131/55 (80) 99 12/06/17 00:43 88 31 30 12/06/17 00:30 87 31 94/59 (71) 99 12/06/17 00:00 35 12/06/17 00:00 87 12/06/17 00:00 Mechanical Ventilator 12/06/17 00:00 31 Mechanical Ventilator 35 12/06/17 00:00 98.8 88 31 103/56 (72) 99 12/05/17 23:05 80 30 30 12/05/17 23:00 32 Mechanical Ventilator 35 12/05/17 22:30 90 34 125/52 (76) 99 12/05/17 22:00 82 31 128/56 (80) 99 12/05/17 22:00 33 Mechanical Ventilator 35 12/05/17 21:30 82 31 124/48 (73) 99 12/05/17 21:08 82 31 30 12/05/17 21:00 30 Mechanical Ventilator 35 12/05/17 21:00 81 32 102/57 (72) 99 12/05/17 20:30 82 32 110/50 (70) 99 12/05/17 20:00 98.7 81 31 117/49 (71) 99 12/05/17 20:00 87 12/05/17 20:00 Mechanical Ventilator 12/05/17 20:00 31 Mechanical Ventilator 35 12/05/17 20:00 35 12/05/17 19:30 81 32 104/55 (71) 99 12/05/17 19:00 83 32 134/70 (91) 99 12/05/17 19:00 32 Mechanical Ventilator 35 12/05/17 18:56 81 30 30 12/05/17 18:01 86 36 125/71 (89) 100 12/05/17 17:59 32 Mechanical Ventilator 12/05/17 17:21 86 30 35 12/05/17 17:00 83 30 125/63 (83) 100 12/05/17 16:00 81 12/05/17 16:00 99.0 81 31 133/45 (74) 99 12/05/17 16:00 35 12/05/17 16:00 Mechanical Ventilator 12/05/17 15:05 80 31 35 12/05/17 15:00 31 Mechanical Ventilator 35 12/05/17 15:00 35 12/05/17 15:00 80 32 126/71 (89) 100 12/05/17 14:00 79 26 109/59 (76) 97 12/05/17 14:00 30 Mechanical Ventilator 35 12/05/17 13:13 83 29 35 12/05/17 13:00 30 Mechanical Ventilator 35 12/05/17 13:00 79 26 101/54 (70) 98 Status: somnolent, other - intubated Condition: improving HEENT: atraumatic, normocephalic Lungs: clear Heart: HR/BP stable Abdomen: soft, non-tender, active bowel sounds, feeding tube Extremities: no C/C/E Decubiti: location - sacral, stage - DTI Accucheck: 170 Critical Care - Subjective ROS Limited/Unobtainable: Yes ICU Day: 6 Intubation Day: 6 Interval Events: Osmin SBT PS5 No sig secretions On Fent 50 Arousable Condition: improving IV Access: PICC EKG Rhythm: Sinus Rhythm FI02: 30 Vent Support Breath Rate: 16 Vent Support Mode: CPAP Vent Tidal Volume: 500 Sputum Amount: Small PEEP: 5.0 PIP: 11 Fluids: [id number]@100 Drips: Fent 50 Tube Feeding Amount: 30 I&O: Intake and Output 12/05/17 12/06/17 19:00 07:00 Intake Total 1803.502 ml 1845.0 ml Output Total 1335 ml 1815 ml Balance 468.502 ml 30.0 ml Free Water 120 ml 100 ml IV Total 1323.502 ml 1325.0 ml Tube Feeding 360 ml 360 ml Other 60 ml Output Urine Total 1335 ml 1815 ml # Bowel Movements 100 Subjective: AIDE CXR: CXR unchanged ET-Tube: 7.5 ET Position: 22 Labs: Laboratory Tests Test 12/05/17 15:43 12/06/17 04:30 Arterial Blood pH 7.357 (7.350-7.450) Arterial Blood Partial Pressure CO2 25.7 mmHg (35.0-45.0) L Arterial Blood Partial Pressure O2 84.4 mmHg (75.0-100.0) Arterial Blood HCO3 14.1 mmol/L (22.0-26.0) *L Arterial Blood Oxygen Saturation 96.1 % (95-100) Arterial Blood Base Excess -10.1 (-2-2) *L Ebenezer Test Positive White Blood Count 15.2 K/UL (4.8-10.8) H Red Blood Count 3.84 M/UL (4.70-6.10) L Hemoglobin 10.2 G/DL (14.2-18.0) L Hematocrit 30.9 % (42.0-52.0) L Mean Corpuscular Volume 80 FL (80-99) Mean Corpuscular Hemoglobin 26.6 PG (27.0-31.0) L Mean Corpuscular Hemoglobin Concent 33.1 G/DL (32.0-36.0) Red Cell Distribution Width 16.1 % (11.6-14.8) H Platelet Count 122 K/UL (150-450) L Mean Platelet Volume 9.1 FL (6.5-10.1) Neutrophils (%) (Auto) 82.1 % (45.0-75.0) H Lymphocytes (%) (Auto) 10.8 % (20.0-45.0) L Monocytes (%) (Auto) 4.4 % (1.0-10.0) Eosinophils (%) (Auto) 2.2 % (0.0-3.0) Basophils (%) (Auto) 0.4 % (0.0-2.0) Sodium Level 149 MMOL/L (136-145) H Potassium Level 3.9 MMOL/L (3.5-5.1) Chloride Level 120 MMOL/L (98-107) H Carbon Dioxide Level 19 MMOL/L (21-32) L Anion Gap 10 mmol/L (5-15) Blood Urea Nitrogen 32 mg/dL (7-18) H Creatinine 1.8 MG/DL (0.55-1.30) H Estimat Glomerular Filtration Rate mL/min (>60) Glucose Level 156 MG/DL (74-106) H Uric Acid 4.2 MG/DL (2.6-7.2) Calcium Level 7.0 MG/DL (8.5-10.1) L Phosphorus Level 1.8 MG/DL (2.5-4.9) L Magnesium Level 2.5 MG/DL (1.8-2.4) H Total Bilirubin 0.5 MG/DL (0.2-1.0) Aspartate Amino Transf (AST/SGOT) 206 U/L (15-37) H Alanine Aminotransferase (ALT/SGPT) 209 U/L (12-78) H Alkaline Phosphatase 148 U/L (46-116) H Total Creatine Kinase 4781 U/L (26-308) H C-Reactive Protein, Quantitative 12.9 mg/dL (0.00-0.90) H Total Protein 6.9 G/DL (6.4-8.2) Albumin 2.2 G/DL (3.4-5.0) L Globulin 4.7 g/dL Albumin/Globulin Ratio 0.5 (1.0-2.7) L Random Vancomycin Level 14.2 ug/mL Fantasma Nielsen MD Dec 06, 2017 12:16
--- NOTE | 2017-12-06 12:33 | Nephrology Progress Note ---
Assessment/Plan Problem List: (1) Renal failure (ARF), acute on chronic (2) Respiratory failure (3) Hypernatremia (4) Rhabdomyolysis (5) DM Assessment Acute respiratory failure- Acute Renal failure- Severe Dehydration PEG Sepsis / UTI / Pneumonia Hypotension- Septic Shock High Lipase Rhabdo- High CPK Elevated Troponin Dementia Plan up dose midodrine- change IV rate- K supplement as needed One dose vanco- check am levels midodrine- monitor CK IV to D5w Vent- Respiratory support Gastric support Antibiotics Monitor renal parameters Poor prognosis Per orders Subjective ROS Limited/Unobtainable: Yes Objective Objective Last 24 Hour Vital Signs Date Time Temp Pulse Resp B/P (MAP) Pulse Ox O2 Delivery O2 Flow Rate FiO2 12/06/17 12:26 Mechanical Ventilator 12/06/17 12:00 98.5 80 24 112/67 (82) 100 12/06/17 11:00 78 24 97/44 (61) 100 12/06/17 11:00 23 Mechanical Ventilator 30 12/06/17 10:56 78 23 30 12/06/17 10:00 86 23 162/53 (89) 100 12/06/17 10:00 23 Mechanical Ventilator 30 12/06/17 09:40 24 Mechanical Ventilator 30 12/06/17 09:36 110/52 12/06/17 09:00 30 12/06/17 09:00 25 Mechanical Ventilator 30 12/06/17 09:00 85 25 110/52 (71) 100 12/06/17 08:54 88 26 30 12/06/17 08:53 100 12/06/17 08:50 85 28 30 12/06/17 08:30 35 12/06/17 08:00 Mechanical Ventilator 12/06/17 08:00 28 Mechanical Ventilator 30 12/06/17 08:00 87 28 133/57 (82) 100 12/06/17 08:00 87 12/06/17 08:00 35 12/06/17 07:09 85 29 30 12/06/17 07:00 28 Mechanical Ventilator 35 12/06/17 07:00 87 28 133/57 (82) 100 12/06/17 06:00 29 Mechanical Ventilator 35 12/06/17 06:00 87 28 134/56 (82) 100 12/06/17 05:30 88 29 135/56 (82) 100 12/06/17 05:00 88 29 132/64 (86) 100 12/06/17 05:00 29 Mechanical Ventilator 35 12/06/17 04:47 86 26 30 12/06/17 04:30 89 29 112/55 (74) 99 12/06/17 04:00 Mechanical Ventilator 12/06/17 04:00 35 12/06/17 04:00 98.9 89 29 126/59 (81) 99 12/06/17 04:00 29 Mechanical Ventilator 35 12/06/17 04:00 86 12/06/17 03:30 89 30 136/58 (84) 99 12/06/17 03:14 88 30 30 12/06/17 03:00 30 Mechanical Ventilator 35 12/06/17 03:00 89 30 131/58 (82) 100 12/06/17 02:00 31 Mechanical Ventilator 35 12/06/17 02:00 86 32 142/52 (82) 99 12/06/17 01:30 86 32 127/58 (81) 99 12/06/17 01:00 31 Mechanical Ventilator 35 12/06/17 01:00 87 31 131/55 (80) 99 12/06/17 00:43 88 31 30 12/06/17 00:30 87 31 94/59 (71) 99 12/06/17 00:00 35 12/06/17 00:00 87 12/06/17 00:00 Mechanical Ventilator 12/06/17 00:00 31 Mechanical Ventilator 35 12/06/17 00:00 98.8 88 31 103/56 (72) 99 12/05/17 23:05 80 30 30 12/05/17 23:00 32 Mechanical Ventilator 35 12/05/17 22:30 90 34 125/52 (76) 99 12/05/17 22:00 82 31 128/56 (80) 99 12/05/17 22:00 33 Mechanical Ventilator 35 12/05/17 21:30 82 31 124/48 (73) 99 12/05/17 21:08 82 31 30 12/05/17 21:00 30 Mechanical Ventilator 35 12/05/17 21:00 81 32 102/57 (72) 99 12/05/17 20:30 82 32 110/50 (70) 99 12/05/17 20:00 98.7 81 31 117/49 (71) 99 12/05/17 20:00 87 12/05/17 20:00 Mechanical Ventilator 12/05/17 20:00 31 Mechanical Ventilator 35 12/05/17 20:00 35 12/05/17 19:30 81 32 104/55 (71) 99 12/05/17 19:00 83 32 134/70 (91) 99 12/05/17 19:00 32 Mechanical Ventilator 35 12/05/17 18:56 81 30 30 12/05/17 18:01 86 36 125/71 (89) 100 12/05/17 17:59 32 Mechanical Ventilator 12/05/17 17:21 86 30 35 12/05/17 17:00 83 30 125/63 (83) 100 12/05/17 16:00 81 12/05/17 16:00 99.0 81 31 133/45 (74) 99 12/05/17 16:00 35 12/05/17 16:00 Mechanical Ventilator 12/05/17 15:05 80 31 35 12/05/17 15:00 31 Mechanical Ventilator 35 12/05/17 15:00 35 12/05/17 15:00 80 32 126/71 (89) 100 12/05/17 14:00 79 26 109/59 (76) 97 12/05/17 14:00 30 Mechanical Ventilator 35 12/05/17 13:13 83 29 35 12/05/17 13:00 30 Mechanical Ventilator 35 12/05/17 13:00 79 26 101/54 (70) 98 Intake and Output 12/05/17 12/06/17 19:00 07:00 Intake Total 1803.502 ml 1845.0 ml Output Total 1335 ml 1815 ml Balance 468.502 ml 30.0 ml Free Water 120 ml 100 ml IV Total 1323.502 ml 1325.0 ml Tube Feeding 360 ml 360 ml Other 60 ml Output Urine Total 1335 ml 1815 ml # Bowel Movements 100 Laboratory Tests 12/05/17 15:43: Arterial Blood pH 7.357, Arterial Blood Partial Pressure CO2 25.7L, Arterial Blood Partial Pressure O2 84.4, Arterial Blood HCO3 14.1*L, Arterial Blood Oxygen Saturation 96.1, Arterial Blood Base Excess -10.1*L, Ebenezer Test Positive 12/06/17 04:30: White Blood Count 15.2H, Red Blood Count 3.84L, Hemoglobin 10.2L, Hematocrit 30.9L, Mean Corpuscular Volume 80, Mean Corpuscular Hemoglobin 26.6L, Mean Corpuscular Hemoglobin Concent 33.1, Red Cell Distribution Width 16.1H, Platelet Count 122L, Mean Platelet Volume 9.1, Neutrophils (%) (Auto) 82.1H, Lymphocytes (%) (Auto) 10.8L, Monocytes (%) (Auto) 4.4, Eosinophils (%) (Auto) 2.2, Basophils (%) (Auto) 0.4, Sodium Level 149H, Potassium Level 3.9, Chloride Level 120H, Carbon Dioxide Level 19L, Anion Gap 10, Blood Urea Nitrogen 32H, Creatinine 1.8H, Estimat Glomerular Filtration Rate , Glucose Level 156H, Uric Acid 4.2, Calcium Level 7.0L, Phosphorus Level 1.8L, Magnesium Level 2.5H, Total Bilirubin 0.5, Aspartate Amino Transf (AST/SGOT) 206H, Alanine Aminotransferase (ALT/SGPT) 209H, Alkaline Phosphatase 148H, Total Creatine Kinase 4781H, C-Reactive Protein, Quantitative 12.9H, Total Protein 6.9, Albumin 2.2L, Globulin 4.7, Albumin/Globulin Ratio 0.5L, Random Vancomycin Level 14.2 Height (Feet): 5 Height (Inches): 5.00 Weight (Pounds): 155 EENT: other - vented Cardiovascular: normal rate Respiratory/Chest: decreased breath sounds Abdomen: distended Objective no other change Randolph Fernandes MD Dec 06, 2017 12:33
--- NOTE | 2017-12-06 12:56 | Consultation ---
History of Present Illness General Date patient seen: Dec 06, 2017 Chief Complaint: Dyspnea/Respdistress Referring physician: JOSE LUIS GAYLE Reason for Consultation: wounds Present Illness HPI 87 year old male with multiple comorbidities presented for medical care and management. On admission noted to have multiple wounds. surery called to evaluate. patient seen, chart reviewed, patient examined. see wound care photos. Allergies: Coded Allergies: TERAZOSIN (Verified Allergy, Unknown, 10/27/17) Medication History Scheduled Amlodipine Besylate (Norvasc), 5 MG GT DAILY, (Reported) Aspirin (Aspirin EC), 81 MG GT DAILY, (Reported) Atorvastatin Calcium* (Lipitor*), 10 MG GT BEDTIME, (Reported) Docusate Sodium* (Colace*), 100 MG GT DAILY, (Reported) Donepezil Hcl* (Donepezil Hcl*), 10 MG GT DAILY, (Reported) Magnesium Hydroxide* (Milk Of Magnesia*), 30 ML GT QHS, (Reported) Sennosides (Senna), 8.6 MG GT DAILY, (Reported) Sennosides* (Sennosides*), 17.2 MG ORAL QPM, (Reported) Tamsulosin Hcl (Tamsulosin Hcl*), 0.4 MG GT BEDTIME, (Reported) Scheduled PRN Acetaminophen* (Acetaminophen 325MG Tablet*), 650 MG ORAL Q4H PRN for For Pain, (Reported) Acetaminophen* (Acetaminophen 325MG Tablet*), 650 MG ORAL Q4H PRN for FEVER ( TEMP >101F), (Reported) Miscellaneous Medications Bisacodyl (Dulcolax), 10 MG RC, (Reported) Na Phos,M-B/Na Phos,Di-Ba (Fleet Enema), 133 ML RC, (Reported) Patient History History Provided By: Medical Record, PMD Healthcare decision maker Resuscitation status Full Code Advanced Directive on File Past Medical/Surgical History Past Medical/Surgical History: (1) Constipation (2) Malnutrition (3) Pancreatitis (4) Respiratory failure (5) Severe sepsis (6) NSTEMI (non-ST elevated myocardial infarction) (7) Hypernatremia (8) DM (9) Rhabdomyolysis (10) Hypoxemia (11) Renal failure (ARF), acute on chronic (12) UTI (urinary tract infection) (13) Pneumonia (14) Hypokalemia (15) Elevated d-dimer (16) Encephalopathy due to metabolic factor or toxin Review of Systems All Other Systems: negative except mentioned in HPI Physical Exam General Appearance: no apparent distress Lines, tubes and drains: other HEENT: mucous membranes moist Neck: other Respiratory/Chest: normal breath sounds, no respiratory distress, other Cardiovascular/Chest: normal rate Abdomen: soft, no organomegaly, no mass Extremities: other Skin Exam: other Neurologic: alert Last 24 Hour Vital Signs Date Time Temp Pulse Resp B/P (MAP) Pulse Ox O2 Delivery O2 Flow Rate FiO2 12/06/17 12:26 Mechanical Ventilator 12/06/17 12:00 98.5 80 24 112/67 (82) 100 12/06/17 11:00 78 24 97/44 (61) 100 12/06/17 11:00 23 Mechanical Ventilator 30 12/06/17 10:56 78 23 30 12/06/17 10:00 86 23 162/53 (89) 100 12/06/17 10:00 23 Mechanical Ventilator 30 12/06/17 09:40 24 Mechanical Ventilator 30 12/06/17 09:36 110/52 12/06/17 09:00 30 12/06/17 09:00 25 Mechanical Ventilator 30 12/06/17 09:00 85 25 110/52 (71) 100 12/06/17 08:54 88 26 30 12/06/17 08:53 100 12/06/17 08:50 85 28 30 12/06/17 08:30 35 12/06/17 08:00 Mechanical Ventilator 12/06/17 08:00 28 Mechanical Ventilator 30 12/06/17 08:00 87 28 133/57 (82) 100 12/06/17 08:00 87 12/06/17 08:00 35 12/06/17 07:09 85 29 30 12/06/17 07:00 28 Mechanical Ventilator 35 12/06/17 07:00 87 28 133/57 (82) 100 12/06/17 06:00 29 Mechanical Ventilator 35 12/06/17 06:00 87 28 134/56 (82) 100 12/06/17 05:30 88 29 135/56 (82) 100 12/06/17 05:00 88 29 132/64 (86) 100 12/06/17 05:00 29 Mechanical Ventilator 35 12/06/17 04:47 86 26 30 12/06/17 04:30 89 29 112/55 (74) 99 12/06/17 04:00 Mechanical Ventilator 12/06/17 04:00 35 12/06/17 04:00 98.9 89 29 126/59 (81) 99 12/06/17 04:00 29 Mechanical Ventilator 35 12/06/17 04:00 86 12/06/17 03:30 89 30 136/58 (84) 99 12/06/17 03:14 88 30 30 12/06/17 03:00 30 Mechanical Ventilator 35 12/06/17 03:00 89 30 131/58 (82) 100 12/06/17 02:00 31 Mechanical Ventilator 35 12/06/17 02:00 86 32 142/52 (82) 99 12/06/17 01:30 86 32 127/58 (81) 99 12/06/17 01:00 31 Mechanical Ventilator 35 12/06/17 01:00 87 31 131/55 (80) 99 12/06/17 00:43 88 31 30 12/06/17 00:30 87 31 94/59 (71) 99 12/06/17 00:00 35 12/06/17 00:00 87 12/06/17 00:00 Mechanical Ventilator 12/06/17 00:00 31 Mechanical Ventilator 35 12/06/17 00:00 98.8 88 31 103/56 (72) 99 12/05/17 23:05 80 30 30 12/05/17 23:00 32 Mechanical Ventilator 35 12/05/17 22:30 90 34 125/52 (76) 99 12/05/17 22:00 82 31 128/56 (80) 99 12/05/17 22:00 33 Mechanical Ventilator 35 12/05/17 21:30 82 31 124/48 (73) 99 12/05/17 21:08 82 31 30 12/05/17 21:00 30 Mechanical Ventilator 35 12/05/17 21:00 81 32 102/57 (72) 99 12/05/17 20:30 82 32 110/50 (70) 99 12/05/17 20:00 98.7 81 31 117/49 (71) 99 12/05/17 20:00 87 12/05/17 20:00 Mechanical Ventilator 12/05/17 20:00 31 Mechanical Ventilator 35 12/05/17 20:00 35 12/05/17 19:30 81 32 104/55 (71) 99 12/05/17 19:00 83 32 134/70 (91) 99 12/05/17 19:00 32 Mechanical Ventilator 35 12/05/17 18:56 81 30 30 12/05/17 18:01 86 36 125/71 (89) 100 12/05/17 17:59 32 Mechanical Ventilator 12/05/17 17:21 86 30 35 12/05/17 17:00 83 30 125/63 (83) 100 12/05/17 16:00 81 12/05/17 16:00 99.0 81 31 133/45 (74) 99 12/05/17 16:00 35 12/05/17 16:00 Mechanical Ventilator 12/05/17 15:05 80 31 35 12/05/17 15:00 31 Mechanical Ventilator 35 12/05/17 15:00 35 12/05/17 15:00 80 32 126/71 (89) 100 12/05/17 14:00 79 26 109/59 (76) 97 12/05/17 14:00 30 Mechanical Ventilator 35 12/05/17 13:13 83 29 35 12/05/17 13:00 30 Mechanical Ventilator 35 12/05/17 13:00 79 26 101/54 (70) 98 Intake and Output 12/05/17 12/06/17 19:00 07:00 Intake Total 1803.502 ml 1845.0 ml Output Total 1335 ml 1815 ml Balance 468.502 ml 30.0 ml Free Water 120 ml 100 ml IV Total 1323.502 ml 1325.0 ml Tube Feeding 360 ml 360 ml Other 60 ml Output Urine Total 1335 ml 1815 ml # Bowel Movements 100 Laboratory Tests Test 12/05/17 15:43 12/06/17 04:30 Arterial Blood pH 7.357 (7.350-7.450) Arterial Blood Partial Pressure CO2 25.7 mmHg (35.0-45.0) L Arterial Blood Partial Pressure O2 84.4 mmHg (75.0-100.0) Arterial Blood HCO3 14.1 mmol/L (22.0-26.0) *L Arterial Blood Oxygen Saturation 96.1 % (95-100) Arterial Blood Base Excess -10.1 (-2-2) *L Ebenezer Test Positive White Blood Count 15.2 K/UL (4.8-10.8) H Red Blood Count 3.84 M/UL (4.70-6.10) L Hemoglobin 10.2 G/DL (14.2-18.0) L Hematocrit 30.9 % (42.0-52.0) L Mean Corpuscular Volume 80 FL (80-99) Mean Corpuscular Hemoglobin 26.6 PG (27.0-31.0) L Mean Corpuscular Hemoglobin Concent 33.1 G/DL (32.0-36.0) Red Cell Distribution Width 16.1 % (11.6-14.8) H Platelet Count 122 K/UL (150-450) L Mean Platelet Volume 9.1 FL (6.5-10.1) Neutrophils (%) (Auto) 82.1 % (45.0-75.0) H Lymphocytes (%) (Auto) 10.8 % (20.0-45.0) L Monocytes (%) (Auto) 4.4 % (1.0-10.0) Eosinophils (%) (Auto) 2.2 % (0.0-3.0) Basophils (%) (Auto) 0.4 % (0.0-2.0) Sodium Level 149 MMOL/L (136-145) H Potassium Level 3.9 MMOL/L (3.5-5.1) Chloride Level 120 MMOL/L (98-107) H Carbon Dioxide Level 19 MMOL/L (21-32) L Anion Gap 10 mmol/L (5-15) Blood Urea Nitrogen 32 mg/dL (7-18) H Creatinine 1.8 MG/DL (0.55-1.30) H Estimat Glomerular Filtration Rate mL/min (>60) Glucose Level 156 MG/DL (74-106) H Uric Acid 4.2 MG/DL (2.6-7.2) Calcium Level 7.0 MG/DL (8.5-10.1) L Phosphorus Level 1.8 MG/DL (2.5-4.9) L Magnesium Level 2.5 MG/DL (1.8-2.4) H Total Bilirubin 0.5 MG/DL (0.2-1.0) Aspartate Amino Transf (AST/SGOT) 206 U/L (15-37) H Alanine Aminotransferase (ALT/SGPT) 209 U/L (12-78) H Alkaline Phosphatase 148 U/L (46-116) H Total Creatine Kinase 4781 U/L (26-308) H C-Reactive Protein, Quantitative 12.9 mg/dL (0.00-0.90) H Total Protein 6.9 G/DL (6.4-8.2) Albumin 2.2 G/DL (3.4-5.0) L Globulin 4.7 g/dL Albumin/Globulin Ratio 0.5 (1.0-2.7) L Random Vancomycin Level 14.2 ug/mL Height (Feet): 5 Height (Inches): 5.00 Weight (Pounds): 155 Medications Current Medications Medications (Trade) Dose Ordered Sig/Ruthie Route PRN Reason Start Time Stop Time Status Last Admin Dose Admin Albuterol/ Ipratropium (Albuterol/ Ipratropium) 3 ml Q4H PRN HHN Shortness of Breath 12/05/17 15:21 12/10/17 15:20 Aspirin (ASA) 162 mg DAILY NG 12/02/17 09:00 01/01/18 08:59 12/06/17 09:35 Chlorhexidine Gluconate (Rachael-Hex 2%) 1 applic DAILY@2000 TOPIC 12/04/17 20:00 01/03/18 19:59 12/05/17 21:00 Dextrose (Dextrose 50%) 25 ml Q30M PRN IV Hypoglycemia 12/04/17 07:00 01/03/18 06:59 Dextrose (Dextrose 50%) 50 ml Q30M PRN IV Hypoglycemia 12/04/17 07:00 01/03/18 06:59 Dextrose/ Electrolytes 1,000 ml @ 100 mls/hr Q10H IV 12/04/17 11:00 01/03/18 10:59 12/06/17 03:35 Fentanyl Citrate 1000 mcg/Sodium Chloride 100 ml @ 0 mls/hr Q24H PRN IV Restlessness 12/03/17 21:00 12/10/17 20:59 12/06/17 09:40 Heparin Sodium (Porcine) (Heparin 5000 units/ml) 5,000 units EVERY 12 HOURS SUBQ 12/01/17 21:00 12/31/17 20:59 12/06/17 09:37 Insulin Aspart (NovoLOG) Q4HR SUBQ 12/02/17 21:00 01/01/18 20:59 12/06/17 12:23 Insulin Detemir (Levemir) 8 units BID SUBQ 12/04/17 09:00 01/03/18 08:59 12/06/17 09:39 Loperamide HCl (Imodium) 2 mg Q6H PRN NG Diarrhea 12/03/17 08:30 01/02/18 08:29 12/03/17 13:14 Midodrine (Pro-Amatine) 10 mg THREE TIMES A DAY GT 12/06/17 13:00 01/02/18 17:59 Nitroglycerin (Ntg) 1 patch Q24H TDERMAL 12/02/17 09:00 01/01/18 08:59 12/06/17 09:36 Pantoprazole (Protonix) 40 mg EVERY 12 HOURS IVP 12/01/17 21:00 12/31/17 20:59 12/06/17 09:35 Piperacillin Sod/ Tazobactam Sod 3.375 gm/Sodium Chloride 110 ml @ 27.5 mls/hr Q8HR IVPB 12/05/17 09:00 12/12/17 08:59 12/06/17 06:34 Potassium Phosphate 30 mm/ Sodium Chloride 285 ml @ 47.5 mls/hr ONCE IV 12/06/17 11:00 12/06/17 17:00 12/06/17 12:20 Quetiapine Fumarate (SEROquel) 12.5 mg Q4H PRN GT agitation 12/04/17 20:45 01/03/18 20:29 Sucralfate (Carafate) 1 gm FOUR TIMES A DAY GT 12/01/17 18:00 12/31/17 17:59 12/06/17 12:21 Vancomycin HCl 1 gm/Dextrose 275 ml @ 183.708 mls/hr ONCE IVPB 12/06/17 14:00 12/06/17 16:00 Assessment/Plan Problem List: (1) Sacral decubitus ulcer Assessment & Plan: Pt present with two full thickness pressure injuries to R and L sacrum with encompassing dark induration to an area of (L)13cm x(W)9.5cm. R sacrum pressure injury(L)4.3cmx(W)2.1cm .Wound bed moist,granular. L sacrum full thickness pressure injury(L)3.8cm x (W)2.5cm,wound bed moist, clean- granular.DTPI noted to L trochanter(L)7cm x (W)7.5cm.Site is dark with numerous blood filled blisters and reabsorbed blisters. Cat. 3 skin skin tear with full flap loss noted to dorsal R knee (L)6.5cm x (W)2cm.small amt serosanguineous exudate noted .Periwound skin is clean and intact. smaller skin tear noted to medial aspect of r Knee (L)1.1cm x (W)0.2cm.Non blanchable erythema noted to R heel without fluctuation (L)7.4cm x (W)8cm.Maroon discoloration that is fluctuant in center noted to lateral L heel (L)4cm x (W)4.7cm.erythema noted along borders.Indurated dark area with erythema along borders noted to medial L heel (L)6cm x (W)5.5cm. Tx.Plan: Cleanse sacral wound with Saline.Apply Hydrogel to wounds R and L sacrum .Apply Cavilon to dark areas.Cover with Optifoam drsg Daily and prn. Cleanse Skin tears R knee with Saline.Apply Silvasorb gel .Cover with Optifoam drsg .Change every 7 days and prn. Apply Cavilon Barrier wipe to R heel .Cover with Optifoam change weekly and prn. Apply Cavilon Barrier wipe to medial and lateral L heel and cover with Optifoam drsg.Change weekly and prn. Apply Cavilon wipe to L trochanter and cover with Optifoam drsg .Change weekly and prn. Reposition at least every 2 hours or as tolerated. Air fluidized mattress. Off-load heels with pillow. ICD Codes: L89.159 - Pressure ulcer of sacral region, unspecified stage SNOMED: [id number] Don Carvalho Dec 06, 2017 12:56
--- NOTE | 2017-12-06 13:55 | Infectious Diseases Prog Note ---
Assessment/Plan Assessment/Plan A; Sepsis, SIRS Pancreatitis Rhabdomyolysis Acute respiratory failure Acute renal failure improving Dehydration P: Continue Zosyn & Vancomycin Subjective ROS Limited/Unobtainable: Yes Respiratory: Reports: other - extubated today Allergies: Coded Allergies: TERAZOSIN (Verified Allergy, Unknown, 10/27/17) Objective Vital Signs Last 24 Hour Vital Signs Date Time Temp Pulse Resp B/P (MAP) Pulse Ox O2 Delivery O2 Flow Rate FiO2 12/06/17 13:00 87 26 137/63 (87) 100 12/06/17 12:54 94 31 40 12/06/17 12:52 91 29 30 12/06/17 12:26 Mechanical Ventilator 12/06/17 12:00 90 12/06/17 12:00 98.5 80 24 112/67 (82) 100 12/06/17 11:00 78 24 97/44 (61) 100 12/06/17 11:00 23 Mechanical Ventilator 30 12/06/17 10:56 78 23 30 12/06/17 10:00 86 23 162/53 (89) 100 12/06/17 10:00 23 Mechanical Ventilator 30 12/06/17 09:40 24 Mechanical Ventilator 30 12/06/17 09:36 110/52 12/06/17 09:00 30 12/06/17 09:00 25 Mechanical Ventilator 30 12/06/17 09:00 85 25 110/52 (71) 100 12/06/17 08:54 88 26 30 12/06/17 08:53 100 12/06/17 08:50 85 28 30 12/06/17 08:30 35 12/06/17 08:00 Mechanical Ventilator 12/06/17 08:00 28 Mechanical Ventilator 30 12/06/17 08:00 87 28 133/57 (82) 100 12/06/17 08:00 87 12/06/17 08:00 35 12/06/17 07:09 85 29 30 12/06/17 07:00 28 Mechanical Ventilator 35 12/06/17 07:00 87 28 133/57 (82) 100 12/06/17 06:00 29 Mechanical Ventilator 35 12/06/17 06:00 87 28 134/56 (82) 100 12/06/17 05:30 88 29 135/56 (82) 100 12/06/17 05:00 88 29 132/64 (86) 100 12/06/17 05:00 29 Mechanical Ventilator 35 12/06/17 04:47 86 26 30 12/06/17 04:30 89 29 112/55 (74) 99 12/06/17 04:00 Mechanical Ventilator 12/06/17 04:00 35 12/06/17 04:00 98.9 89 29 126/59 (81) 99 12/06/17 04:00 29 Mechanical Ventilator 35 12/06/17 04:00 86 12/06/17 03:30 89 30 136/58 (84) 99 12/06/17 03:14 88 30 30 12/06/17 03:00 30 Mechanical Ventilator 35 12/06/17 03:00 89 30 131/58 (82) 100 12/06/17 02:00 31 Mechanical Ventilator 35 12/06/17 02:00 86 32 142/52 (82) 99 12/06/17 01:30 86 32 127/58 (81) 99 12/06/17 01:00 31 Mechanical Ventilator 35 12/06/17 01:00 87 31 131/55 (80) 99 12/06/17 00:43 88 31 30 12/06/17 00:30 87 31 94/59 (71) 99 12/06/17 00:00 35 12/06/17 00:00 87 12/06/17 00:00 Mechanical Ventilator 12/06/17 00:00 31 Mechanical Ventilator 35 12/06/17 00:00 98.8 88 31 103/56 (72) 99 12/05/17 23:05 80 30 30 12/05/17 23:00 32 Mechanical Ventilator 35 12/05/17 22:30 90 34 125/52 (76) 99 12/05/17 22:00 82 31 128/56 (80) 99 12/05/17 22:00 33 Mechanical Ventilator 35 12/05/17 21:30 82 31 124/48 (73) 99 12/05/17 21:08 82 31 30 12/05/17 21:00 30 Mechanical Ventilator 35 12/05/17 21:00 81 32 102/57 (72) 99 12/05/17 20:30 82 32 110/50 (70) 99 12/05/17 20:00 98.7 81 31 117/49 (71) 99 12/05/17 20:00 87 12/05/17 20:00 Mechanical Ventilator 12/05/17 20:00 31 Mechanical Ventilator 35 12/05/17 20:00 35 12/05/17 19:30 81 32 104/55 (71) 99 12/05/17 19:00 83 32 134/70 (91) 99 12/05/17 19:00 32 Mechanical Ventilator 35 12/05/17 18:56 81 30 30 12/05/17 18:01 86 36 125/71 (89) 100 12/05/17 17:59 32 Mechanical Ventilator 12/05/17 17:21 86 30 35 12/05/17 17:00 83 30 125/63 (83) 100 12/05/17 16:00 81 12/05/17 16:00 99.0 81 31 133/45 (74) 99 12/05/17 16:00 35 12/05/17 16:00 Mechanical Ventilator 12/05/17 15:05 80 31 35 12/05/17 15:00 31 Mechanical Ventilator 35 12/05/17 15:00 35 12/05/17 15:00 80 32 126/71 (89) 100 12/05/17 14:00 79 26 109/59 (76) 97 12/05/17 14:00 30 Mechanical Ventilator 35 Height (Feet): 5 Height (Inches): 5.00 Weight (Pounds): 155 General Appearance: no acute distress HEENT: mucous membranes moist Respiratory/Chest: chest wall non-tender Cardiovascular: normal rate, other - R arm PICC line Abdomen: soft, non tender, other - GT feeding Extremities: other - generalized edema Skin: ulcers Laboratory Tests Test 12/05/17 15:43 12/06/17 04:30 12/06/17 12:45 Arterial Blood pH 7.357 (7.350-7.450) Arterial Blood Partial Pressure CO2 25.7 mmHg (35.0-45.0) L Arterial Blood Partial Pressure O2 84.4 mmHg (75.0-100.0) Arterial Blood HCO3 14.1 mmol/L (22.0-26.0) *L Arterial Blood Oxygen Saturation 96.1 % (95-100) Arterial Blood Base Excess -10.1 (-2-2) *L Ebenezer Test Positive White Blood Count 15.2 K/UL (4.8-10.8) H Red Blood Count 3.84 M/UL (4.70-6.10) L Hemoglobin 10.2 G/DL (14.2-18.0) L Hematocrit 30.9 % (42.0-52.0) L Mean Corpuscular Volume 80 FL (80-99) Mean Corpuscular Hemoglobin 26.6 PG (27.0-31.0) L Mean Corpuscular Hemoglobin Concent 33.1 G/DL (32.0-36.0) Red Cell Distribution Width 16.1 % (11.6-14.8) H Platelet Count 122 K/UL (150-450) L Mean Platelet Volume 9.1 FL (6.5-10.1) Neutrophils (%) (Auto) 82.1 % (45.0-75.0) H Lymphocytes (%) (Auto) 10.8 % (20.0-45.0) L Monocytes (%) (Auto) 4.4 % (1.0-10.0) Eosinophils (%) (Auto) 2.2 % (0.0-3.0) Basophils (%) (Auto) 0.4 % (0.0-2.0) Sodium Level 149 MMOL/L (136-145) H Potassium Level 3.9 MMOL/L (3.5-5.1) Chloride Level 120 MMOL/L (98-107) H Carbon Dioxide Level 19 MMOL/L (21-32) L Anion Gap 10 mmol/L (5-15) Blood Urea Nitrogen 32 mg/dL (7-18) H Creatinine 1.8 MG/DL (0.55-1.30) H Estimat Glomerular Filtration Rate mL/min (>60) Glucose Level 156 MG/DL (74-106) H Uric Acid 4.2 MG/DL (2.6-7.2) Calcium Level 7.0 MG/DL (8.5-10.1) L Phosphorus Level 1.8 MG/DL (2.5-4.9) L Magnesium Level 2.5 MG/DL (1.8-2.4) H Total Bilirubin 0.5 MG/DL (0.2-1.0) Aspartate Amino Transf (AST/SGOT) 206 U/L (15-37) H Alanine Aminotransferase (ALT/SGPT) 209 U/L (12-78) H Alkaline Phosphatase 148 U/L (46-116) H Total Creatine Kinase 4781 U/L (26-308) H C-Reactive Protein, Quantitative 12.9 mg/dL (0.00-0.90) H 9.9 mg/dL (0.00-0.90) H Total Protein 6.9 G/DL (6.4-8.2) Albumin 2.2 G/DL (3.4-5.0) L Globulin 4.7 g/dL Albumin/Globulin Ratio 0.5 (1.0-2.7) L Random Vancomycin Level 14.2 ug/mL Current Medications Medications (Trade) Dose Ordered Sig/Ruthie Route PRN Reason Start Time Stop Time Status Last Admin Dose Admin Albuterol/ Ipratropium (Albuterol/ Ipratropium) 3 ml Q4H PRN HHN Shortness of Breath 12/05/17 15:21 12/10/17 15:20 Aspirin (ASA) 162 mg DAILY NG 12/02/17 09:00 01/01/18 08:59 12/06/17 09:35 Chlorhexidine Gluconate (Rachael-Hex 2%) 1 applic DAILY@2000 TOPIC 12/04/17 20:00 01/03/18 19:59 12/05/17 21:00 Dextrose (Dextrose 50%) 25 ml Q30M PRN IV Hypoglycemia 12/04/17 07:00 01/03/18 06:59 Dextrose (Dextrose 50%) 50 ml Q30M PRN IV Hypoglycemia 12/04/17 07:00 01/03/18 06:59 Dextrose/ Electrolytes 1,000 ml @ 100 mls/hr Q10H IV 12/04/17 11:00 01/03/18 10:59 12/06/17 03:35 Fentanyl Citrate 1000 mcg/Sodium Chloride 100 ml @ 0 mls/hr Q24H PRN IV Restlessness 12/03/17 21:00 12/10/17 20:59 12/06/17 09:40 Heparin Sodium (Porcine) (Heparin 5000 units/ml) 5,000 units EVERY 12 HOURS SUBQ 12/01/17 21:00 12/31/17 20:59 12/06/17 09:37 Insulin Aspart (NovoLOG) Q4HR SUBQ 12/02/17 21:00 01/01/18 20:59 12/06/17 12:23 Insulin Detemir (Levemir) 8 units BID SUBQ 12/04/17 09:00 01/03/18 08:59 12/06/17 09:39 Loperamide HCl (Imodium) 2 mg Q6H PRN NG Diarrhea 12/03/17 08:30 01/02/18 08:29 12/03/17 13:14 Midodrine (Pro-Amatine) 10 mg THREE TIMES A DAY GT 12/06/17 13:00 01/02/18 17:59 Nitroglycerin (Ntg) 1 patch Q24H TDERMAL 12/02/17 09:00 01/01/18 08:59 12/06/17 09:36 Pantoprazole (Protonix) 40 mg EVERY 12 HOURS IVP 12/01/17 21:00 12/31/17 20:59 12/06/17 09:35 Piperacillin Sod/ Tazobactam Sod 3.375 gm/Sodium Chloride 110 ml @ 27.5 mls/hr Q8HR IVPB 12/05/17 09:00 12/12/17 08:59 12/06/17 06:34 Potassium Phosphate 30 mm/ Sodium Chloride 285 ml @ 47.5 mls/hr ONCE IV 12/06/17 11:00 12/06/17 17:00 12/06/17 12:20 Quetiapine Fumarate (SEROquel) 12.5 mg Q4H PRN GT agitation 12/04/17 20:45 01/03/18 20:29 Sucralfate (Carafate) 1 gm FOUR TIMES A DAY GT 12/01/17 18:00 12/31/17 17:59 12/06/17 12:21 Vancomycin HCl 1 gm/Dextrose 275 ml @ 183.708 mls/hr ONCE IVPB 12/06/17 14:00 12/06/17 16:00 Anam Cruz MD Dec 06, 2017 13:55
[2017-12-06] MEDS ORDERED: Vancomycin 1 GM in D5W 275 ML IVPB SCH (14:00)
[2017-12-06] MEDS: Midodrine 10mg tab GT SCH ×2 (14:26→18:12)
[2017-12-06] MEDS: Dyna-Hex 2% Top Sol 2oz TOPIC SCH (21:23)
--- NOTE | 2017-12-06 21:56 | General Progress Note ---
Assessment/Plan Problem List: (1) Hypoxemia ICD Codes: R09.02 - Hypoxemia SNOMED: 020019564 (2) Pneumonia ICD Codes: J18.9 - Pneumonia, unspecified organism SNOMED: 154282847 (3) Malnutrition ICD Codes: E46 - Unspecified protein-calorie malnutrition SNOMED: 23173354 (4) Renal failure (ARF), acute on chronic ICD Codes: N17.9 - Acute kidney failure, unspecified; N18.9 - Chronic kidney disease, unspecified SNOMED: 752639321 Qualifiers: Qualified Codes: N17.9 - Acute kidney failure, unspecified; N18.3 - Chronic kidney disease, stage 3 (moderate) (5) Respiratory failure ICD Codes: J96.90 - Respiratory failure, unspecified, unspecified whether with hypoxia or hypercapnia SNOMED: 691210896 Qualifiers: Qualified Codes: J96.00 - Acute respiratory failure, unspecified whether with hypoxia or hypercapnia (6) Severe sepsis ICD Codes: A41.9 - Sepsis, unspecified organism; R65.20 - Severe sepsis without septic shock SNOMED: 53277351 (7) UTI (urinary tract infection) ICD Codes: N39.0 - Urinary tract infection, site not specified SNOMED: 23036431 Qualifiers: Qualified Codes: N39.0 - Urinary tract infection, site not specified (8) NSTEMI (non-ST elevated myocardial infarction) ICD Codes: I21.4 - Non-ST elevation (NSTEMI) myocardial infarction SNOMED: 665118918 (9) Hypernatremia ICD Codes: E87.0 - Hyperosmolality and hypernatremia SNOMED: 31350405 (10) DM (11) Rhabdomyolysis ICD Codes: M62.82 - Rhabdomyolysis SNOMED: 311460231 Status: progressing Assessment/Plan hypernatremia improving resp insuff lethargic persistent leukocytosis improving no wheezing uti.abx per id sepsis nstemi resolved poor prognosis Subjective ROS Limited/Unobtainable: Yes Allergies: Coded Allergies: TERAZOSIN (Verified Allergy, Unknown, 10/27/17) Objective Last 24 Hour Vital Signs Date Time Temp Pulse Resp B/P (MAP) Pulse Ox O2 Delivery O2 Flow Rate FiO2 12/06/17 19:52 89 21 Nasal Cannula 2.0 28 12/06/17 19:52 Nasal Cannula 2.0 28 12/06/17 19:52 100 Nasal Cannula 2.0 28 12/06/17 18:00 90 28 136/65 (88) 99 12/06/17 17:00 83 28 127/65 (85) 100 12/06/17 16:00 98.8 83 26 130/65 (86) 100 12/06/17 16:00 Room Air 12/06/17 16:00 90 12/06/17 16:00 4.0 12/06/17 15:00 81 25 158/75 (102) 100 12/06/17 14:00 85 25 129/60 (83) 100 12/06/17 13:00 87 26 137/63 (87) 100 12/06/17 12:55 94 31 Nasal Cannula 5.0 40 12/06/17 12:54 94 31 40 12/06/17 12:54 Nasal Cannula 5.0 40 12/06/17 12:52 91 29 30 12/06/17 12:26 Mechanical Ventilator 12/06/17 12:15 24 Mechanical Ventilator 30 12/06/17 12:00 90 12/06/17 12:00 30 12/06/17 12:00 25 Mechanical Ventilator 30 12/06/17 12:00 98.5 80 24 112/67 (82) 100 12/06/17 11:00 78 24 97/44 (61) 100 12/06/17 11:00 23 Mechanical Ventilator 30 12/06/17 10:56 78 23 30 12/06/17 10:00 86 23 162/53 (89) 100 12/06/17 10:00 23 Mechanical Ventilator 30 12/06/17 09:40 24 Mechanical Ventilator 30 12/06/17 09:36 110/52 12/06/17 09:00 30 12/06/17 09:00 25 Mechanical Ventilator 30 12/06/17 09:00 85 25 110/52 (71) 100 12/06/17 08:54 88 26 30 12/06/17 08:53 100 12/06/17 08:50 85 28 30 12/06/17 08:30 35 12/06/17 08:00 Mechanical Ventilator 12/06/17 08:00 28 Mechanical Ventilator 30 12/06/17 08:00 87 28 133/57 (82) 100 12/06/17 08:00 87 12/06/17 08:00 35 12/06/17 07:09 85 29 30 12/06/17 07:00 28 Mechanical Ventilator 35 12/06/17 07:00 87 28 133/57 (82) 100 12/06/17 06:00 29 Mechanical Ventilator 35 12/06/17 06:00 87 28 134/56 (82) 100 12/06/17 05:30 88 29 135/56 (82) 100 12/06/17 05:00 88 29 132/64 (86) 100 12/06/17 05:00 29 Mechanical Ventilator 35 12/06/17 04:47 86 26 30 12/06/17 04:30 89 29 112/55 (74) 99 12/06/17 04:00 Mechanical Ventilator 12/06/17 04:00 35 12/06/17 04:00 98.9 89 29 126/59 (81) 99 12/06/17 04:00 29 Mechanical Ventilator 35 12/06/17 04:00 86 12/06/17 03:30 89 30 136/58 (84) 99 12/06/17 03:14 88 30 30 12/06/17 03:00 30 Mechanical Ventilator 35 12/06/17 03:00 89 30 131/58 (82) 100 12/06/17 02:00 31 Mechanical Ventilator 35 12/06/17 02:00 86 32 142/52 (82) 99 12/06/17 01:30 86 32 127/58 (81) 99 12/06/17 01:00 31 Mechanical Ventilator 35 12/06/17 01:00 87 31 131/55 (80) 99 12/06/17 00:43 88 31 30 12/06/17 00:30 87 31 94/59 (71) 99 12/06/17 00:00 35 12/06/17 00:00 87 12/06/17 00:00 Mechanical Ventilator 12/06/17 00:00 31 Mechanical Ventilator 35 12/06/17 00:00 98.8 88 31 103/56 (72) 99 12/05/17 23:05 80 30 30 12/05/17 23:00 32 Mechanical Ventilator 35 12/05/17 22:30 90 34 125/52 (76) 99 12/05/17 22:00 82 31 128/56 (80) 99 12/05/17 22:00 33 Mechanical Ventilator 35 Intake and Output 12/05/17 12/06/17 19:00 07:00 Intake Total 1803.502 ml 1845.0 ml Output Total 1335 ml 1815 ml Balance 468.502 ml 30.0 ml Free Water 120 ml 100 ml IV Total 1323.502 ml 1325.0 ml Tube Feeding 360 ml 360 ml Other 60 ml Output Urine Total 1335 ml 1815 ml # Bowel Movements 100 Laboratory Tests 12/06/17 04:30: White Blood Count 15.2H, Red Blood Count 3.84L, Hemoglobin 10.2L, Hematocrit 30.9L, Mean Corpuscular Volume 80, Mean Corpuscular Hemoglobin 26.6L, Mean Corpuscular Hemoglobin Concent 33.1, Red Cell Distribution Width 16.1H, Platelet Count 122L, Mean Platelet Volume 9.1, Neutrophils (%) (Auto) 82.1H, Lymphocytes (%) (Auto) 10.8L, Monocytes (%) (Auto) 4.4, Eosinophils (%) (Auto) 2.2, Basophils (%) (Auto) 0.4, Sodium Level 149H, Potassium Level 3.9, Chloride Level 120H, Carbon Dioxide Level 19L, Anion Gap 10, Blood Urea Nitrogen 32H, Creatinine 1.8H, Estimat Glomerular Filtration Rate , Glucose Level 156H, Uric Acid 4.2, Calcium Level 7.0L, Phosphorus Level 1.8L, Magnesium Level 2.5H, Total Bilirubin 0.5, Aspartate Amino Transf (AST/SGOT) 206H, Alanine Aminotransferase (ALT/SGPT) 209H, Alkaline Phosphatase 148H, Total Creatine Kinase 4781H, C-Reactive Protein, Quantitative 12.9H, Total Protein 6.9, Albumin 2.2L, Globulin 4.7, Albumin/Globulin Ratio 0.5L, Random Vancomycin Level 14.2 12/06/17 12:45: C-Reactive Protein, Quantitative 9.9H Height (Feet): 5 Height (Inches): 5.00 Weight (Pounds): 155 General Appearance: lethargic, confused Cardiovascular: normal rate Respiratory/Chest: lungs clear Abdomen: soft Trish Matias MD Dec 06, 2017 21:56
--- NOTE | 2017-12-06 23:11 | General Progress Note ---
Assessment/Plan Problem List: (1) Encephalopathy due to metabolic factor or toxin SNOMED: 856685180 Status: stable, progressing Assessment/Plan Seroquel prn dw staff Subjective Neurologic/Psychiatric: Reports: anxiety Allergies: Coded Allergies: TERAZOSIN (Verified Allergy, Unknown, 10/27/17) Objective Last 24 Hour Vital Signs Date Time Temp Pulse Resp B/P (MAP) Pulse Ox O2 Delivery O2 Flow Rate FiO2 12/06/17 22:00 84 28 115/64 (81) 100 12/06/17 21:00 85 25 108/92 (97) 100 12/06/17 20:00 Nasal Cannula 2.0 12/06/17 20:00 89 31 132/53 (79) 100 12/06/17 20:00 89 12/06/17 19:52 89 21 Nasal Cannula 2.0 28 12/06/17 19:52 Nasal Cannula 2.0 28 12/06/17 19:52 100 Nasal Cannula 2.0 28 12/06/17 19:00 98.5 87 31 146/64 (91) 100 12/06/17 18:00 90 28 136/65 (88) 99 12/06/17 17:00 83 28 127/65 (85) 100 12/06/17 16:00 98.8 83 26 130/65 (86) 100 12/06/17 16:00 Room Air 12/06/17 16:00 90 12/06/17 16:00 4.0 12/06/17 15:00 81 25 158/75 (102) 100 12/06/17 14:00 85 25 129/60 (83) 100 12/06/17 13:00 87 26 137/63 (87) 100 12/06/17 12:55 94 31 Nasal Cannula 5.0 40 12/06/17 12:54 94 31 40 12/06/17 12:54 Nasal Cannula 5.0 40 12/06/17 12:52 91 29 30 12/06/17 12:26 Mechanical Ventilator 12/06/17 12:15 24 Mechanical Ventilator 30 12/06/17 12:00 90 12/06/17 12:00 30 12/06/17 12:00 25 Mechanical Ventilator 30 12/06/17 12:00 98.5 80 24 112/67 (82) 100 12/06/17 11:00 78 24 97/44 (61) 100 12/06/17 11:00 23 Mechanical Ventilator 30 12/06/17 10:56 78 23 30 12/06/17 10:00 86 23 162/53 (89) 100 12/06/17 10:00 23 Mechanical Ventilator 30 12/06/17 09:40 24 Mechanical Ventilator 30 12/06/17 09:36 110/52 12/06/17 09:00 30 12/06/17 09:00 25 Mechanical Ventilator 30 12/06/17 09:00 85 25 110/52 (71) 100 12/06/17 08:54 88 26 30 12/06/17 08:53 100 12/06/17 08:50 85 28 30 12/06/17 08:30 35 12/06/17 08:00 Mechanical Ventilator 12/06/17 08:00 28 Mechanical Ventilator 30 12/06/17 08:00 87 28 133/57 (82) 100 12/06/17 08:00 87 12/06/17 08:00 35 12/06/17 07:09 85 29 30 12/06/17 07:00 28 Mechanical Ventilator 35 12/06/17 07:00 87 28 133/57 (82) 100 12/06/17 06:00 29 Mechanical Ventilator 35 12/06/17 06:00 87 28 134/56 (82) 100 12/06/17 05:30 88 29 135/56 (82) 100 12/06/17 05:00 88 29 132/64 (86) 100 12/06/17 05:00 29 Mechanical Ventilator 35 12/06/17 04:47 86 26 30 12/06/17 04:30 89 29 112/55 (74) 99 12/06/17 04:00 Mechanical Ventilator 12/06/17 04:00 35 12/06/17 04:00 98.9 89 29 126/59 (81) 99 12/06/17 04:00 29 Mechanical Ventilator 35 12/06/17 04:00 86 12/06/17 03:30 89 30 136/58 (84) 99 12/06/17 03:14 88 30 30 12/06/17 03:00 30 Mechanical Ventilator 35 12/06/17 03:00 89 30 131/58 (82) 100 12/06/17 02:00 31 Mechanical Ventilator 35 12/06/17 02:00 86 32 142/52 (82) 99 12/06/17 01:30 86 32 127/58 (81) 99 12/06/17 01:00 31 Mechanical Ventilator 35 12/06/17 01:00 87 31 131/55 (80) 99 12/06/17 00:43 88 31 30 12/06/17 00:30 87 31 94/59 (71) 99 12/06/17 00:00 35 12/06/17 00:00 87 12/06/17 00:00 Mechanical Ventilator 12/06/17 00:00 31 Mechanical Ventilator 35 12/06/17 00:00 98.8 88 31 103/56 (72) 99 Intake and Output 12/05/17 12/06/17 18:59 06:59 Intake Total 1908.502 ml 1945.0 ml Output Total 1385 ml 1765 ml Balance 523.502 ml 180.0 ml Free Water 120 ml 100 ml IV Total 1428.502 ml 1425.0 ml Tube Feeding 360 ml 360 ml Other 60 ml Output Urine Total 1385 ml 1765 ml # Bowel Movements 100 Laboratory Tests 12/06/17 04:30: White Blood Count 15.2H, Red Blood Count 3.84L, Hemoglobin 10.2L, Hematocrit 30.9L, Mean Corpuscular Volume 80, Mean Corpuscular Hemoglobin 26.6L, Mean Corpuscular Hemoglobin Concent 33.1, Red Cell Distribution Width 16.1H, Platelet Count 122L, Mean Platelet Volume 9.1, Neutrophils (%) (Auto) 82.1H, Lymphocytes (%) (Auto) 10.8L, Monocytes (%) (Auto) 4.4, Eosinophils (%) (Auto) 2.2, Basophils (%) (Auto) 0.4, Sodium Level 149H, Potassium Level 3.9, Chloride Level 120H, Carbon Dioxide Level 19L, Anion Gap 10, Blood Urea Nitrogen 32H, Creatinine 1.8H, Estimat Glomerular Filtration Rate , Glucose Level 156H, Uric Acid 4.2, Calcium Level 7.0L, Phosphorus Level 1.8L, Magnesium Level 2.5H, Total Bilirubin 0.5, Aspartate Amino Transf (AST/SGOT) 206H, Alanine Aminotransferase (ALT/SGPT) 209H, Alkaline Phosphatase 148H, Total Creatine Kinase 4781H, C-Reactive Protein, Quantitative 12.9H, Total Protein 6.9, Albumin 2.2L, Globulin 4.7, Albumin/Globulin Ratio 0.5L, Random Vancomycin Level 14.2 12/06/17 12:45: C-Reactive Protein, Quantitative 9.9H Height (Feet): 5 Height (Inches): 5.00 Weight (Pounds): 155 General Appearance: lethargic, confused, agitated Lauren Santoyo MD Dec 06, 2017 23:11
[2017-12-07] VITALS (23 sets, daily range): BP systolic 58–158; BP diastolic 59–77
[2017-12-07] MEDS: NovoLOG Insulin Flexpen SUBQ SCH ×5 (01:48→23:44)
[2017-12-07] MEDS: D5W w/KCl 20mEq 1,000 ML IV SCH ×2 (01:49→21:31)
[2017-12-07] MEDS: Piperacillin/Tazobactam 3.375 GM in NS 110 ML IVPB SCH ×4 (05:27→21:34)
[2017-12-07 05:50] LABS: BASOPHILS % (AUTO) 0.8 % (0.0-2.0); EOSINOPHILS % (AUTO) 2.1 % (0.0-3.0); HEMATOCRIT 25.4 % (42.0-52.0); HEMOGLOBIN 8.4 G/DL (14.2-18.0); LYMPHOCYTES % (AUTO) 13.5 % (20.0-45.0); MEAN CORPUSCULAR VOLUME 79 FL (80-99); NEUTROPHILS % (AUTO) 76.6 % (45.0-75.0); PLATELET COUNT 110 K/UL (150-450); RED CELL DISTRIBUTION WIDTH 15.5 % (11.6-14.8); WHITE BLOOD COUNT 11.9 K/UL (4.8-10.8)
--- NOTE | 2017-12-07 06:21 | General Progress Note ---
Assessment/Plan Problem List: (1) Renal failure (ARF), acute on chronic ICD Codes: N17.9 - Acute kidney failure, unspecified; N18.9 - Chronic kidney disease, unspecified SNOMED: 028932772 Qualifiers: Qualified Codes: N17.9 - Acute kidney failure, unspecified; N18.3 - Chronic kidney disease, stage 3 (moderate) (2) NSTEMI (non-ST elevated myocardial infarction) ICD Codes: I21.4 - Non-ST elevation (NSTEMI) myocardial infarction SNOMED: 034580128 (3) Hypernatremia ICD Codes: E87.0 - Hyperosmolality and hypernatremia SNOMED: 23409255 (4) DM (5) Rhabdomyolysis ICD Codes: M62.82 - Rhabdomyolysis SNOMED: 312086263 (6) Hypoxemia ICD Codes: R09.02 - Hypoxemia SNOMED: 433597756 (7) Severe sepsis ICD Codes: A41.9 - Sepsis, unspecified organism; R65.20 - Severe sepsis without septic shock SNOMED: 75320597 Assessment/Plan glucose values are stable TF tolerated continue Levemir 8 units bid change NISS every 4 to every 6 hours Subjective ROS Limited/Unobtainable: Yes Allergies: Coded Allergies: TERAZOSIN (Verified Allergy, Unknown, 10/27/17) Subjective events noted extubated yesterday around noon Objective Last 24 Hour Vital Signs Date Time Temp Pulse Resp B/P (MAP) Pulse Ox O2 Delivery O2 Flow Rate FiO2 12/07/17 06:00 95 30 119/68 (85) 100 12/07/17 05:00 97 23 125/64 (84) 100 12/07/17 04:00 Nasal Cannula 2.0 12/07/17 04:00 98.6 95 30 140/66 (90) 100 12/07/17 04:00 97 12/07/17 03:00 92 31 142/59 (86) 100 12/07/17 02:00 93 29 143/65 (91) 100 12/07/17 01:00 90 28 135/65 (88) 100 12/07/17 00:00 Nasal Cannula 2.0 12/07/17 00:00 99.0 88 30 124/73 (90) 100 12/07/17 00:00 88 12/06/17 23:00 88 31 126/72 (90) 99 12/06/17 22:00 84 28 115/64 (81) 100 12/06/17 21:00 85 25 108/92 (97) 100 12/06/17 20:00 Nasal Cannula 2.0 12/06/17 20:00 89 31 132/53 (79) 100 12/06/17 20:00 89 12/06/17 19:52 89 21 Nasal Cannula 2.0 28 12/06/17 19:52 Nasal Cannula 2.0 28 12/06/17 19:52 100 Nasal Cannula 2.0 28 12/06/17 19:00 98.5 87 31 146/64 (91) 100 12/06/17 18:00 90 28 136/65 (88) 99 12/06/17 17:00 83 28 127/65 (85) 100 12/06/17 16:00 98.8 83 26 130/65 (86) 100 12/06/17 16:00 Room Air 12/06/17 16:00 90 12/06/17 16:00 4.0 12/06/17 15:00 81 25 158/75 (102) 100 12/06/17 14:00 85 25 129/60 (83) 100 12/06/17 13:00 87 26 137/63 (87) 100 12/06/17 12:55 94 31 Nasal Cannula 5.0 40 12/06/17 12:54 94 31 40 12/06/17 12:54 Nasal Cannula 5.0 40 12/06/17 12:52 91 29 30 12/06/17 12:26 Mechanical Ventilator 12/06/17 12:15 24 Mechanical Ventilator 30 12/06/17 12:00 90 12/06/17 12:00 30 12/06/17 12:00 25 Mechanical Ventilator 30 12/06/17 12:00 98.5 80 24 112/67 (82) 100 12/06/17 11:00 78 24 97/44 (61) 100 12/06/17 11:00 23 Mechanical Ventilator 30 12/06/17 10:56 78 23 30 12/06/17 10:00 86 23 162/53 (89) 100 12/06/17 10:00 23 Mechanical Ventilator 30 12/06/17 09:40 24 Mechanical Ventilator 30 12/06/17 09:36 110/52 12/06/17 09:00 30 10/31/18 09:00 25 Mechanical Ventilator 30 12/06/17 09:00 85 25 110/52 (71) 100 12/06/17 08:54 88 26 30 12/06/17 08:53 100 12/06/17 08:50 85 28 30 12/06/17 08:30 35 12/06/17 08:00 Mechanical Ventilator 12/06/17 08:00 28 Mechanical Ventilator 30 12/06/17 08:00 87 28 133/57 (82) 100 12/06/17 08:00 87 12/06/17 08:00 35 12/06/17 07:09 85 29 30 12/06/17 07:00 28 Mechanical Ventilator 35 12/06/17 07:00 87 28 133/57 (82) 100 Intake and Output 12/06/17 12/07/17 19:00 07:00 Intake Total 1813.5 ml 815.0 ml Output Total 1115 ml 1065 ml Balance 698.5 ml -250.0 ml Free Water 60 ml IV Total 1533.5 ml 455.0 ml Tube Feeding 180 ml 330 ml Other 40 ml 30 ml Output Urine Total 1015 ml 965 ml Stool Total 100 ml 100 ml Laboratory Tests 12/06/17 12:45: C-Reactive Protein, Quantitative 9.9H 12/07/17 04:00: White Blood Count 11.9H, Red Blood Count 3.20L, Hemoglobin 8.4L, Hematocrit 25.4L, Mean Corpuscular Volume 79L, Mean Corpuscular Hemoglobin 26.3L, Mean Corpuscular Hemoglobin Concent 33.2, Red Cell Distribution Width 15.5H, Platelet Count 110L, Mean Platelet Volume 10.0, Neutrophils (%) (Auto) 76.6H, Lymphocytes (%) (Auto) 13.5L, Monocytes (%) (Auto) 7.0, Eosinophils (%) (Auto) 2.1, Basophils (%) (Auto) 0.8, Sodium Level [Pending], Potassium Level [Pending] , Chloride Level [Pending], Carbon Dioxide Level [Pending], Blood Urea Nitrogen [Pending], Creatinine [Pending], Estimat Glomerular Filtration Rate [Pending], Glucose Level [Pending], Uric Acid [Pending], Calcium Level [Pending], Phosphorus Level [Pending], Magnesium Level [Pending], Total Bilirubin [Pending] , Aspartate Amino Transf (AST/SGOT) [Pending], Alanine Aminotransferase (ALT/ SGPT) [Pending], Alkaline Phosphatase [Pending], Total Creatine Kinase [Pending] , Pro-B-Type Natriuretic Peptide [Pending], Total Protein [Pending], Albumin [ Pending], Globulin [Pending], Random Vancomycin Level [Pending] Height (Feet): 5 Height (Inches): 5.00 Weight (Pounds): 156 General Appearance: no apparent distress Neck: normal alignment Cardiovascular: normal rate Respiratory/Chest: decreased breath sounds Abdomen: normal bowel sounds Pelvis: normal external exam Edema: no edema noted Arm (L), no edema noted Arm (R), no edema noted Leg (L), no edema noted Leg (R), no edema noted Pedal (L), no edema noted Pedal (R), no edema noted Generalized Objective Current Medications Medications (Trade) Dose Ordered Sig/Ruthie Route PRN Reason Start Time Stop Time Status Last Admin Dose Admin Albuterol/ Ipratropium (Albuterol/ Ipratropium) 3 ml Q4H PRN HHN Shortness of Breath 12/05/17 15:21 12/10/17 15:20 Aspirin (ASA) 162 mg DAILY NG 12/02/17 09:00 01/01/18 08:59 12/06/17 09:35 Chlorhexidine Gluconate (Rachael-Hex 2%) 1 applic DAILY@2000 TOPIC 12/04/17 20:00 01/03/18 19:59 12/06/17 21:23 Dextrose (Dextrose 50%) 25 ml Q30M PRN IV Hypoglycemia 12/04/17 07:00 01/03/18 06:59 Dextrose (Dextrose 50%) 50 ml Q30M PRN IV Hypoglycemia 12/04/17 07:00 01/03/18 06:59 Dextrose/ Electrolytes 1,000 ml @ 100 mls/hr Q10H IV 12/04/17 11:00 01/03/18 10:59 12/07/17 01:49 Fentanyl Citrate 1000 mcg/Sodium Chloride 100 ml @ 0 mls/hr Q24H PRN IV Restlessness 12/03/17 21:00 11/4/18 20:59 12/06/17 09:40 Heparin Sodium (Porcine) (Heparin 5000 units/ml) 5,000 units EVERY 12 HOURS SUBQ 12/01/17 21:00 12/31/17 20:59 12/06/17 21:25 Insulin Aspart (NovoLOG) Q4HR SUBQ 12/02/17 21:00 01/01/18 20:59 12/07/17 05:25 Insulin Detemir (Levemir) 8 units BID SUBQ 12/04/17 09:00 01/03/18 08:59 12/06/17 18:14 Loperamide HCl (Imodium) 2 mg Q6H PRN NG Diarrhea 12/03/17 08:30 01/02/18 08:29 12/03/17 13:14 Midodrine (Pro-Amatine) 10 mg THREE TIMES A DAY GT 12/06/17 13:00 01/02/18 17:59 12/06/17 18:12 Nitroglycerin (Ntg) 1 patch Q24H TDERMAL 12/02/17 09:00 01/01/18 08:59 12/06/17 09:36 Pantoprazole (Protonix) 40 mg EVERY 12 HOURS IVP 12/01/17 21:00 12/31/17 20:59 12/06/17 21:24 Piperacillin Sod/ Tazobactam Sod 3.375 gm/Sodium Chloride 110 ml @ 27.5 mls/hr Q8HR IVPB 12/05/17 09:00 12/12/17 08:59 12/07/17 05:27 Quetiapine Fumarate (SEROquel) 12.5 mg Q4H PRN GT agitation 12/04/17 20:45 01/03/18 20:29 Sucralfate (Carafate) 1 gm FOUR TIMES A DAY GT 12/01/17 18:00 12/31/17 17:59 12/06/17 21:23 Item Value Date Time Bedside Blood Glucose 144 mg/dl H 12/07/17 0525 Bedside Blood Glucose 130 mg/dl H 12/07/17 0148 Bedside Blood Glucose 140 mg/dl H 12/06/17 2125 Bedside Blood Glucose 100 mg/dl 12/06/17 1814 Bedside Blood Glucose 167 mg/dl H 12/06/17 1230 Bedside Blood Glucose 170 mg/dl H 12/06/17 0939 Stefan Leon MD Dec 07, 2017 06:20
[2017-12-07 06:26] LABS: ALANINE AMINOTRANSFERASE 204 U/L (12-78); ALBUMIN 1.8 G/DL (3.4-5.0); ALBUMIN/GLOBULIN RATIO 0.4 (1.0-2.7); ALKALINE PHOSPHATASE 146 U/L (46-116); ANION GAP 12 mmol/L (5-15); ASPARTATE AMINO TRANSFERASE 187 U/L (15-37); BILIRUBIN,TOTAL 0.4 MG/DL (0.2-1.0); BLOOD UREA NITROGEN 24 mg/dL (7-18); CALCIUM 7.3 MG/DL (8.5-10.1); CARBON DIOXIDE 18 MMOL/L (21-32); CHLORIDE 120 MMOL/L (98-107); CREATINE KINASE 2116 U/L (26-308); CREATININE 1.7 MG/DL (0.55-1.30); POTASSIUM 3.8 MMOL/L (3.5-5.1); SODIUM 149 MMOL/L (136-145)
[2017-12-07 06:49] LABS: PHOSPHORUS 2.4 MG/DL (2.5-4.9)
[2017-12-07] MEDS: Heparin 5000 units/ml inj SUBQ SCH ×2 (09:00→21:00)
[2017-12-07] MEDS: Pantoprazole Inj IVP SCH ×2 (09:17→21:31)
[2017-12-07] MEDS: Nitroglycerin Patch 0.4mg TDERMAL SCH (09:18)
[2017-12-07] MEDS: Aspirin Baby 81mg NG SCH (09:18)
[2017-12-07] MEDS: Midodrine 10mg tab GT SCH (09:18)
[2017-12-07] MEDS: Levemir Flexpen SUBQ SCH ×2 (09:20→18:09)
[2017-12-07] MEDS: Sucralfate 1gm tab GT SCH ×4 (09:22→21:31)
[2017-12-07] MEDS ORDERED: Potassium Phosphate 20 MM in NS 275 ML IV SCH (10:00)
[2017-12-07] MEDS ORDERED: D5W w/KCl 20mEq 1,000 ML IV SCH (10:47)
--- NOTE | 2017-12-07 10:48 | Nephrology Progress Note ---
Assessment/Plan Problem List: (1) Renal failure (ARF), acute on chronic (2) Respiratory failure (3) Hypernatremia (4) Rhabdomyolysis (5) DM Assessment Acute respiratory failure- now extubated Acute Renal failure- Severe Dehydration PEG Sepsis / UTI / Pneumonia Hypotension- Septic Shock High Lipase Rhabdo- High CPK Elevated Troponin Dementia Plan adjust midodrine- change IV rate- K supplement as needed check am vanco levels monitor CK post extubation care Gastric support Antibiotics Monitor renal parameters Poor prognosis Per orders Subjective ROS Limited/Unobtainable: No Constitutional: Reports: malaise, weakness Objective Objective Last 24 Hour Vital Signs Date Time Temp Pulse Resp B/P (MAP) Pulse Ox O2 Delivery O2 Flow Rate FiO2 12/07/17 09:18 133/62 12/07/17 08:00 Nasal Cannula 2.0 12/07/17 07:12 Nasal Cannula 2.0 28 12/07/17 07:11 100 Nasal Cannula 2.0 28 12/07/17 07:10 93 22 Nasal Cannula 2.0 28 12/07/17 07:00 98.7 91 26 143/64 (90) 100 12/07/17 06:00 95 30 119/68 (85) 100 12/07/17 05:00 97 23 125/64 (84) 100 12/07/17 04:00 Nasal Cannula 2.0 12/07/17 04:00 98.6 95 30 140/66 (90) 100 12/07/17 04:00 97 12/07/17 03:00 92 31 142/59 (86) 100 12/07/17 02:00 93 29 143/65 (91) 100 12/07/17 01:00 90 28 135/65 (88) 100 12/07/17 00:00 Nasal Cannula 2.0 12/07/17 00:00 99.0 88 30 124/73 (90) 100 12/07/17 00:00 88 12/06/17 23:00 88 31 126/72 (90) 99 12/06/17 22:00 84 28 115/64 (81) 100 12/06/17 21:00 85 25 108/92 (97) 100 12/06/17 20:00 Nasal Cannula 2.0 12/06/17 20:00 89 31 132/53 (79) 100 12/06/17 20:00 89 12/06/17 19:52 89 21 Nasal Cannula 2.0 28 12/06/17 19:52 Nasal Cannula 2.0 28 12/06/17 19:52 100 Nasal Cannula 2.0 28 12/06/17 19:00 98.5 87 31 146/64 (91) 100 12/06/17 18:00 90 28 136/65 (88) 99 12/06/17 17:00 83 28 127/65 (85) 100 12/06/17 16:00 98.8 83 26 130/65 (86) 100 12/06/17 16:00 Room Air 12/06/17 16:00 90 12/06/17 16:00 4.0 12/06/17 15:00 81 25 158/75 (102) 100 12/06/17 14:00 85 25 129/60 (83) 100 12/06/17 13:00 87 26 137/63 (87) 100 12/06/17 12:55 94 31 Nasal Cannula 5.0 40 12/06/17 12:54 94 31 40 12/06/17 12:54 Nasal Cannula 5.0 40 12/06/17 12:52 91 29 30 12/06/17 12:26 Mechanical Ventilator 12/06/17 12:15 24 Mechanical Ventilator 30 12/06/17 12:00 90 12/06/17 12:00 30 12/06/17 12:00 25 Mechanical Ventilator 30 12/06/17 12:00 98.5 80 24 112/67 (82) 100 12/06/17 11:00 78 24 97/44 (61) 100 12/06/17 11:00 23 Mechanical Ventilator 30 12/06/17 10:56 78 23 30 Intake and Output 12/06/17 12/07/17 19:00 07:00 Intake Total 1813.5 ml 1755.0 ml Output Total 1115 ml 1340 ml Balance 698.5 ml 415.0 ml Free Water 60 ml IV Total 1533.5 ml 1365.0 ml Tube Feeding 180 ml 360 ml Other 40 ml 30 ml Output Urine Total 1015 ml 1240 ml Stool Total 100 ml 100 ml Laboratory Tests 12/06/17 12:45: C-Reactive Protein, Quantitative 9.9H 12/07/17 04:00: White Blood Count 11.9H, Red Blood Count 3.20L, Hemoglobin 8.4L, Hematocrit 25.4L, Mean Corpuscular Volume 79L, Mean Corpuscular Hemoglobin 26.3L, Mean Corpuscular Hemoglobin Concent 33.2, Red Cell Distribution Width 15.5H, Platelet Count 110L, Mean Platelet Volume 10.0, Neutrophils (%) (Auto) 76.6H, Lymphocytes (%) (Auto) 13.5L, Monocytes (%) (Auto) 7.0, Eosinophils (%) (Auto) 2.1, Basophils (%) (Auto) 0.8, Sodium Level 149H, Potassium Level 3.8, Chloride Level 120H, Carbon Dioxide Level 18L, Anion Gap 12, Blood Urea Nitrogen 24H, Creatinine 1.7H, Estimat Glomerular Filtration Rate , Glucose Level 132H, Uric Acid 3.7, Calcium Level 7.3L, Phosphorus Level 2.4L, Magnesium Level 2.2, Total Bilirubin 0.4, Aspartate Amino Transf (AST/SGOT) 187H, Alanine Aminotransferase (ALT/SGPT) 204H, Alkaline Phosphatase 146H, Total Creatine Kinase 2116H, Pro-B- Type Natriuretic Peptide 1661H, Total Protein 5.9L, Albumin 1.8L, Globulin 4.1, Albumin/Globulin Ratio 0.4L, Random Vancomycin Level 17.7 12/07/17 07:23: Arterial Blood pH 7.430, Arterial Blood Partial Pressure CO2 22.7*L, Arterial Blood Partial Pressure O2 92.0, Arterial Blood HCO3 14.9*L, Arterial Blood Oxygen Saturation 96.6, Arterial Blood Base Excess -8.0L, Ebenezer Test Positive Height (Feet): 5 Height (Inches): 5.00 Weight (Pounds): 156 General Appearance: no apparent distress EENT: other - extubated Cardiovascular: tachycardia Respiratory/Chest: decreased breath sounds Abdomen: soft Objective no other change Randolph Fernandes MD Dec 07, 2017 10:48
--- NOTE | 2017-12-07 11:02 | General Progress Note ---
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 --> Anemia w/u has been reviewed. Will trend CBC daily --> No evidence of hemolysis noted, peripheral smear reviewed --> Hgb goal >7. Transfuse as needed prn basis # Leukocytosis. Likely related to underlying infection vs reactive process. --> Imaging has been reviewed. Shows Stable cardiomegaly. Slight haziness of the pulmonary vascularity suggests mild interstitial edema. Unchanged elevation of the left hemidiaphragm. --> Blood cx and urine cx have been reviewed --> Has been started on abx, empiric rx # Thrombocytopenia. Potential causes multifactorial, evaluate levimer and viral etiologies. --> Hep panel negative and HIV is negative --> Ordered US abd for evaluation of cirrhosis and hsm - reviewed and is hsm and cirrhosis --> Abx and other meds have been reviewed --> Ok for ppx if heparin >50k with heparin sq --> currently appears to have stabilized # Constipation. --> ordered KUB evaluate abdominal distention - No acute process. Findings as noted --> electrolyte correction --> prevacid GT --> bowel regime # Sepsis. # Malnutrition. --> peg GREATLY APPRECIATE CONSULTATION. Subjective Constitutional: Denies: no symptoms, chills, diaphoresis, fever, malaise, weakness, other HEENT: Denies: no symptoms, eye pain, blurred vision, tearing, double vision, ear pain, ear discharge, nose pain, nose congestion, throat pain, throat swelling, mouth pain, mouth swelling, other Cardiovascular: Denies: no symptoms, chest pain, edema, irregular heart rate, lightheadedness, palpitations, syncope, other Respiratory: Denies: no symptoms, cough, orthopnea, shortness of breath, SOB with excertion, SOB at rest, sputum, stridor, wheezing, other Gastrointestinal/Abdominal: Denies: no symptoms, abdomen distended, abdominal pain, black stools, tarry stools, blood in stool, constipated, diarrhea, difficulty swallowing, nausea, poor appetite, poor fluid intake, rectal bleeding , vomiting, other Genitourinary: Denies: no symptoms, burning, discharge, frequency, flank pain, hematuria, incontinence, pain, urgency, other Neurologic/Psychiatric: Denies: no symptoms, anxiety, depressed, emotional problems, headache, numbness, paresthesia, pre-existing deficit, seizure, tingling, tremors, weakness, other Endocrine: Denies: no symptoms, excessive sweating, flushing, intolerance to cold, intolerance to heat, increased hunger, increased thirst, increased urine, unexplained weight gain, unexplained weight loss, other Allergies: Coded Allergies: TERAZOSIN (Verified Allergy, Unknown, 10/27/17) Subjective Pt remains in ICU. Extubated. H/H stable. Objective Last 24 Hour Vital Signs Date Time Temp Pulse Resp B/P (MAP) Pulse Ox O2 Delivery O2 Flow Rate FiO2 12/07/17 09:18 133/62 12/07/17 08:00 Nasal Cannula 2.0 12/07/17 07:54 90 12/07/17 07:12 Nasal Cannula 2.0 28 12/07/17 07:11 100 Nasal Cannula 2.0 28 12/07/17 07:10 93 22 Nasal Cannula 2.0 28 12/07/17 07:00 98.7 91 26 143/64 (90) 100 12/07/17 06:00 95 30 119/68 (85) 100 12/07/17 05:00 97 23 125/64 (84) 100 12/07/17 04:00 Nasal Cannula 2.0 12/07/17 04:00 98.6 95 30 140/66 (90) 100 12/07/17 04:00 97 12/07/17 03:00 92 31 142/59 (86) 100 12/07/17 02:00 93 29 143/65 (91) 100 12/07/17 01:00 90 28 135/65 (88) 100 12/07/17 00:00 Nasal Cannula 2.0 12/07/17 00:00 99.0 88 30 124/73 (90) 100 12/07/17 00:00 88 12/06/17 23:00 88 31 126/72 (90) 99 12/06/17 22:00 84 28 115/64 (81) 100 12/06/17 21:00 85 25 108/92 (97) 100 12/06/17 20:00 Nasal Cannula 2.0 12/06/17 20:00 89 31 132/53 (79) 100 12/06/17 20:00 89 12/06/17 19:52 89 21 Nasal Cannula 2.0 28 12/06/17 19:52 Nasal Cannula 2.0 28 12/06/17 19:52 100 Nasal Cannula 2.0 28 12/06/17 19:00 98.5 87 31 146/64 (91) 100 12/06/17 18:00 90 28 136/65 (88) 99 12/06/17 17:00 83 28 127/65 (85) 100 12/06/17 16:00 98.8 83 26 130/65 (86) 100 12/06/17 16:00 Room Air 12/06/17 16:00 90 12/06/17 16:00 4.0 12/06/17 15:00 81 25 158/75 (102) 100 12/06/17 14:00 85 25 129/60 (83) 100 12/06/17 13:00 87 26 137/63 (87) 100 12/06/17 12:55 94 31 Nasal Cannula 5.0 40 12/06/17 12:54 94 31 40 12/06/17 12:54 Nasal Cannula 5.0 40 12/06/17 12:52 91 29 30 12/06/17 12:26 Mechanical Ventilator 12/06/17 12:15 24 Mechanical Ventilator 30 12/06/17 12:00 90 12/06/17 12:00 30 12/06/17 12:00 25 Mechanical Ventilator 30 12/06/17 12:00 98.5 80 24 112/67 (82) 100 Intake and Output 12/06/17 12/07/17 19:00 07:00 Intake Total 1813.5 ml 1755.0 ml Output Total 1115 ml 1340 ml Balance 698.5 ml 415.0 ml Free Water 60 ml IV Total 1533.5 ml 1365.0 ml Tube Feeding 180 ml 360 ml Other 40 ml 30 ml Output Urine Total 1015 ml 1240 ml Stool Total 100 ml 100 ml Laboratory Tests 12/06/17 12:45: C-Reactive Protein, Quantitative 9.9H 12/07/17 04:00: White Blood Count 11.9H, Red Blood Count 3.20L, Hemoglobin 8.4L, Hematocrit 25.4L, Mean Corpuscular Volume 79L, Mean Corpuscular Hemoglobin 26.3L, Mean Corpuscular Hemoglobin Concent 33.2, Red Cell Distribution Width 15.5H, Platelet Count 110L, Mean Platelet Volume 10.0, Neutrophils (%) (Auto) 76.6H, Lymphocytes (%) (Auto) 13.5L, Monocytes (%) (Auto) 7.0, Eosinophils (%) (Auto) 2.1, Basophils (%) (Auto) 0.8, Sodium Level 149H, Potassium Level 3.8, Chloride Level 120H, Carbon Dioxide Level 18L, Anion Gap 12, Blood Urea Nitrogen 24H, Creatinine 1.7H, Estimat Glomerular Filtration Rate , Glucose Level 132H, Uric Acid 3.7, Calcium Level 7.3L, Phosphorus Level 2.4L, Magnesium Level 2.2, Total Bilirubin 0.4, Aspartate Amino Transf (AST/SGOT) 187H, Alanine Aminotransferase (ALT/SGPT) 204H, Alkaline Phosphatase 146H, Total Creatine Kinase 2116H, Pro-B- Type Natriuretic Peptide 1661H, Total Protein 5.9L, Albumin 1.8L, Globulin 4.1, Albumin/Globulin Ratio 0.4L, Random Vancomycin Level 17.7 12/07/17 07:23: Arterial Blood pH 7.430, Arterial Blood Partial Pressure CO2 22.7*L, Arterial Blood Partial Pressure O2 92.0, Arterial Blood HCO3 14.9*L, Arterial Blood Oxygen Saturation 96.6, Arterial Blood Base Excess -8.0L, Ebenezer Test Positive Height (Feet): 5 Height (Inches): 5.00 Weight (Pounds): 156 General Appearance: alert EENT: normal ENT inspection Neck: normal inspection Cardiovascular: normal rate Respiratory/Chest: no respiratory distress Abdomen: non tender Extremities: normal range of motion Edema: 1+ Leg (L), 1+ Leg (R) Neurologic: alert Skin: warm/dry Objective peg+++ Beny Dalton MD Dec 07, 2017 11:02
--- NOTE | 2017-12-07 11:05 | Infectious Diseases Prog Note ---
Assessment/Plan Assessment/Plan A; Sepsis, SIRS Pancreatitis Rhabdomyolysis Acute respiratory failure Acute renal failure improving Dehydration P: Continue Zosyn & Vancomycin Subjective ROS Limited/Unobtainable: Yes Allergies: Coded Allergies: TERAZOSIN (Verified Allergy, Unknown, 10/27/17) Objective Vital Signs Last 24 Hour Vital Signs Date Time Temp Pulse Resp B/P (MAP) Pulse Ox O2 Delivery O2 Flow Rate FiO2 12/07/17 09:18 133/62 12/07/17 08:00 Nasal Cannula 2.0 12/07/17 07:54 90 12/07/17 07:12 Nasal Cannula 2.0 28 12/07/17 07:11 100 Nasal Cannula 2.0 28 12/07/17 07:10 93 22 Nasal Cannula 2.0 28 12/07/17 07:00 98.7 91 26 143/64 (90) 100 12/07/17 06:00 95 30 119/68 (85) 100 12/07/17 05:00 97 23 125/64 (84) 100 12/07/17 04:00 Nasal Cannula 2.0 12/07/17 04:00 98.6 95 30 140/66 (90) 100 12/07/17 04:00 97 12/07/17 03:00 92 31 142/59 (86) 100 12/07/17 02:00 93 29 143/65 (91) 100 12/07/17 01:00 90 28 135/65 (88) 100 12/07/17 00:00 Nasal Cannula 2.0 12/07/17 00:00 99.0 88 30 124/73 (90) 100 12/07/17 00:00 88 12/06/17 23:00 88 31 126/72 (90) 99 12/06/17 22:00 84 28 115/64 (81) 100 12/06/17 21:00 85 25 108/92 (97) 100 12/06/17 20:00 Nasal Cannula 2.0 12/06/17 20:00 89 31 132/53 (79) 100 12/06/17 20:00 89 12/06/17 19:52 89 21 Nasal Cannula 2.0 28 12/06/17 19:52 Nasal Cannula 2.0 28 12/06/17 19:52 100 Nasal Cannula 2.0 28 12/06/17 19:00 98.5 87 31 146/64 (91) 100 12/06/17 18:00 90 28 136/65 (88) 99 12/06/17 17:00 83 28 127/65 (85) 100 12/06/17 16:00 98.8 83 26 130/65 (86) 100 12/06/17 16:00 Room Air 12/06/17 16:00 90 12/06/17 16:00 4.0 12/06/17 15:00 81 25 158/75 (102) 100 12/06/17 14:00 85 25 129/60 (83) 100 12/06/17 13:00 87 26 137/63 (87) 100 12/06/17 12:55 94 31 Nasal Cannula 5.0 40 12/06/17 12:54 94 31 40 12/06/17 12:54 Nasal Cannula 5.0 40 12/06/17 12:52 91 29 30 12/06/17 12:26 Mechanical Ventilator 12/06/17 12:15 24 Mechanical Ventilator 30 12/06/17 12:00 90 12/06/17 12:00 30 12/06/17 12:00 25 Mechanical Ventilator 30 12/06/17 12:00 98.5 80 24 112/67 (82) 100 Height (Feet): 5 Height (Inches): 5.00 Weight (Pounds): 156 General Appearance: no acute distress HEENT: mucous membranes moist Respiratory/Chest: lungs clear Cardiovascular: normal rate, other - right arm PICC line Abdomen: soft, non tender, other - GT feeding Extremities: other - edema of legs & right arm Skin: other - stage 3 sacral ulcer Neurologic/Psychiatric: unresponsiveness Laboratory Tests Test 12/06/17 12:45 12/07/17 04:00 12/07/17 07:23 C-Reactive Protein, Quantitative 9.9 mg/dL (0.00-0.90) H White Blood Count 11.9 K/UL (4.8-10.8) H Red Blood Count 3.20 M/UL (4.70-6.10) L Hemoglobin 8.4 G/DL (14.2-18.0) L Hematocrit 25.4 % (42.0-52.0) L Mean Corpuscular Volume 79 FL (80-99) L Mean Corpuscular Hemoglobin 26.3 PG (27.0-31.0) L Mean Corpuscular Hemoglobin Concent 33.2 G/DL (32.0-36.0) Red Cell Distribution Width 15.5 % (11.6-14.8) H Platelet Count 110 K/UL (150-450) L Mean Platelet Volume 10.0 FL (6.5-10.1) Neutrophils (%) (Auto) 76.6 % (45.0-75.0) H Lymphocytes (%) (Auto) 13.5 % (20.0-45.0) L Monocytes (%) (Auto) 7.0 % (1.0-10.0) Eosinophils (%) (Auto) 2.1 % (0.0-3.0) Basophils (%) (Auto) 0.8 % (0.0-2.0) Sodium Level 149 MMOL/L (136-145) H Potassium Level 3.8 MMOL/L (3.5-5.1) Chloride Level 120 MMOL/L (98-107) H Carbon Dioxide Level 18 MMOL/L (21-32) L Anion Gap 12 mmol/L (5-15) Blood Urea Nitrogen 24 mg/dL (7-18) H Creatinine 1.7 MG/DL (0.55-1.30) H Estimat Glomerular Filtration Rate mL/min (>60) Glucose Level 132 MG/DL (74-106) H Uric Acid 3.7 MG/DL (2.6-7.2) Calcium Level 7.3 MG/DL (8.5-10.1) L Phosphorus Level 2.4 MG/DL (2.5-4.9) L Magnesium Level 2.2 MG/DL (1.8-2.4) Total Bilirubin 0.4 MG/DL (0.2-1.0) Aspartate Amino Transf (AST/SGOT) 187 U/L (15-37) H Alanine Aminotransferase (ALT/SGPT) 204 U/L (12-78) H Alkaline Phosphatase 146 U/L (46-116) H Total Creatine Kinase 2116 U/L (26-308) H Pro-B-Type Natriuretic Peptide 1661 pg/mL (0-125) H Total Protein 5.9 G/DL (6.4-8.2) L Albumin 1.8 G/DL (3.4-5.0) L Globulin 4.1 g/dL Albumin/Globulin Ratio 0.4 (1.0-2.7) L Random Vancomycin Level 17.7 ug/mL Arterial Blood pH 7.430 (7.350-7.450) Arterial Blood Partial Pressure CO2 22.7 mmHg (35.0-45.0) *L Arterial Blood Partial Pressure O2 92.0 mmHg (75.0-100.0) Arterial Blood HCO3 14.9 mmol/L (22.0-26.0) *L Arterial Blood Oxygen Saturation 96.6 % (95-100) Arterial Blood Base Excess -8.0 (-2-2) L Ebenezer Test Positive Current Medications Medications (Trade) Dose Ordered Sig/Ruthie Route PRN Reason Start Time Stop Time Status Last Admin Dose Admin Albuterol/ Ipratropium (Albuterol/ Ipratropium) 3 ml Q4H PRN HHN Shortness of Breath 12/05/17 15:21 12/10/17 15:20 Aspirin (ASA) 162 mg DAILY NG 12/02/17 09:00 01/01/18 08:59 12/07/17 09:18 Chlorhexidine Gluconate (Rachael-Hex 2%) 1 applic DAILY@2000 TOPIC 12/04/17 20:00 01/03/18 19:59 12/06/17 21:23 Dextrose (Dextrose 50%) 25 ml Q30M PRN IV Hypoglycemia 12/04/17 07:00 01/03/18 06:59 Dextrose (Dextrose 50%) 50 ml Q30M PRN IV Hypoglycemia 12/04/17 07:00 01/03/18 06:59 Dextrose/ Electrolytes 1,000 ml @ 50 mls/hr Q20H IV 12/07/17 10:47 01/03/18 10:46 12/07/17 10:50 Heparin Sodium (Porcine) (Heparin 5000 units/ml) 5,000 units EVERY 12 HOURS SUBQ 12/01/17 21:00 12/31/17 20:59 12/06/17 21:25 Insulin Aspart (NovoLOG) EVERY 6 HOURS SUBQ 12/07/17 12:00 01/01/18 20:59 Insulin Detemir (Levemir) 8 units BID SUBQ 12/04/17 09:00 01/03/18 08:59 12/07/17 09:20 Iron Sucrose 200 mg/Sodium Chloride 120 ml @ 240 mls/hr ONCE IV 12/07/17 12:00 12/07/17 14:00 Loperamide HCl (Imodium) 2 mg Q6H PRN NG Diarrhea 12/03/17 08:30 01/02/18 08:29 12/03/17 13:14 Midodrine (Pro-Amatine) 5 mg THREE TIMES A DAY GT 12/07/17 13:00 01/02/18 17:59 Nitroglycerin (Ntg) 1 patch Q24H TDERMAL 12/02/17 09:00 01/01/18 08:59 12/07/17 09:18 Pantoprazole (Protonix) 40 mg EVERY 12 HOURS IVP 12/01/17 21:00 12/31/17 20:59 12/07/17 09:17 Piperacillin Sod/ Tazobactam Sod 3.375 gm/Sodium Chloride 110 ml @ 27.5 mls/hr Q8HR IVPB 12/05/17 09:00 12/12/17 08:59 12/07/17 05:27 Potassium Phosphate 20 mm/ Sodium Chloride 281.6667 ml @ 46.944 m... ONCE IV 12/07/17 10:00 12/07/17 16:00 12/07/17 10:50 Quetiapine Fumarate (SEROquel) 12.5 mg Q4H PRN GT agitation 12/04/17 20:45 01/03/18 20:29 Sucralfate (Carafate) 1 gm FOUR TIMES A DAY GT 12/01/17 18:00 12/31/17 17:59 12/07/17 09:22 Anam Cruz MD Dec 07, 2017 11:05
--- NOTE | 2017-12-07 11:26 | GI Progress Note ---
Assessment/Plan Problems: (1) Malnutrition ICD Codes: E46 - Unspecified protein-calorie malnutrition SNOMED: 42579759 (2) Pancreatitis ICD Codes: K85.90 - Acute pancreatitis without necrosis or infection, unspecified SNOMED: 06258467 Qualifiers: Qualified Codes: K85.90 - Acute pancreatitis without necrosis or infection, unspecified (3) Constipation ICD Codes: K59.00 - Constipation, unspecified SNOMED: 99945741 (4) PEG (percutaneous endoscopic gastrostomy) status ICD Codes: Z93.1 - Gastrostomy status SNOMED: 597626598, 038667717 (5) DM (6) Severe sepsis ICD Codes: A41.9 - Sepsis, unspecified organism; R65.20 - Severe sepsis without septic shock SNOMED: 96645209 Status: stable Status Narrative Discussed with Dr. Coronel. Assessment/Plan KUB reviewed for abdominal distention >> no acute findings transaminitis >> hep panel negative not stable for GI procedures prn transfusions on GTF ,renal 30 cc imodium prn rectal tube fu nephrology fu labs ppi BID trend LFTs The patient was seen and examined at bedside and all new and available data was reviewed in the patients chart. I agree with the above findings, impression and plan. (Patient seen earlier today. Signature stamp does not reflect patient encounter time.). - Juan Coronel MD Subjective Subjective limited Objective Last 24 Hour Vital Signs Date Time Temp Pulse Resp B/P (MAP) Pulse Ox O2 Delivery O2 Flow Rate FiO2 12/07/17 11:00 87 24 58/68 (65) 100 12/07/17 10:00 87 26 135/64 (87) 100 12/07/17 09:18 133/62 12/07/17 09:00 89 28 133/62 (85) 100 12/07/17 08:00 91 28 137/64 (88) 100 12/07/17 08:00 Nasal Cannula 2.0 12/07/17 07:54 90 12/07/17 07:12 Nasal Cannula 2.0 28 12/07/17 07:11 100 Nasal Cannula 2.0 28 12/07/17 07:10 93 22 Nasal Cannula 2.0 28 12/07/17 07:00 98.7 91 26 143/64 (90) 100 12/07/17 06:00 95 30 119/68 (85) 100 12/07/17 05:00 97 23 125/64 (84) 100 12/07/17 04:00 Nasal Cannula 2.0 12/07/17 04:00 98.6 95 30 140/66 (90) 100 12/07/17 04:00 97 12/07/17 03:00 92 31 142/59 (86) 100 12/07/17 02:00 93 29 143/65 (91) 100 12/07/17 01:00 90 28 135/65 (88) 100 12/07/17 00:00 Nasal Cannula 2.0 12/07/17 00:00 99.0 88 30 124/73 (90) 100 12/07/17 00:00 88 12/06/17 23:00 88 31 126/72 (90) 99 12/06/17 22:00 84 28 115/64 (81) 100 12/06/17 21:00 85 25 108/92 (97) 100 12/06/17 20:00 Nasal Cannula 2.0 12/06/17 20:00 89 31 132/53 (79) 100 12/06/17 20:00 89 12/06/17 19:52 89 21 Nasal Cannula 2.0 28 12/06/17 19:52 Nasal Cannula 2.0 28 12/06/17 19:52 100 Nasal Cannula 2.0 28 12/06/17 19:00 98.5 87 31 146/64 (91) 100 12/06/17 18:00 90 28 136/65 (88) 99 12/06/17 17:00 83 28 127/65 (85) 100 12/06/17 16:00 98.8 83 26 130/65 (86) 100 12/06/17 16:00 Room Air 12/06/17 16:00 90 12/06/17 16:00 4.0 12/06/17 15:00 81 25 158/75 (102) 100 12/06/17 14:00 85 25 129/60 (83) 100 12/06/17 13:00 87 26 137/63 (87) 100 12/06/17 12:55 94 31 Nasal Cannula 5.0 40 12/06/17 12:54 94 31 40 12/06/17 12:54 Nasal Cannula 5.0 40 12/06/17 12:52 91 29 30 12/06/17 12:26 Mechanical Ventilator 12/06/17 12:15 24 Mechanical Ventilator 30 12/06/17 12:00 90 12/06/17 12:00 30 12/06/17 12:00 25 Mechanical Ventilator 30 12/06/17 12:00 98.5 80 24 112/67 (82) 100 Intake and Output 12/06/17 12/07/17 19:00 07:00 Intake Total 1813.5 ml 1755.0 ml Output Total 1115 ml 1340 ml Balance 698.5 ml 415.0 ml Free Water 60 ml IV Total 1533.5 ml 1365.0 ml Tube Feeding 180 ml 360 ml Other 40 ml 30 ml Output Urine Total 1015 ml 1240 ml Stool Total 100 ml 100 ml Laboratory Tests Test 12/06/17 12:45 12/07/17 04:00 12/07/17 07:23 C-Reactive Protein, Quantitative 9.9 mg/dL (0.00-0.90) H White Blood Count 11.9 K/UL (4.8-10.8) H Red Blood Count 3.20 M/UL (4.70-6.10) L Hemoglobin 8.4 G/DL (14.2-18.0) L Hematocrit 25.4 % (42.0-52.0) L Mean Corpuscular Volume 79 FL (80-99) L Mean Corpuscular Hemoglobin 26.3 PG (27.0-31.0) L Mean Corpuscular Hemoglobin Concent 33.2 G/DL (32.0-36.0) Red Cell Distribution Width 15.5 % (11.6-14.8) H Platelet Count 110 K/UL (150-450) L Mean Platelet Volume 10.0 FL (6.5-10.1) Neutrophils (%) (Auto) 76.6 % (45.0-75.0) H Lymphocytes (%) (Auto) 13.5 % (20.0-45.0) L Monocytes (%) (Auto) 7.0 % (1.0-10.0) Eosinophils (%) (Auto) 2.1 % (0.0-3.0) Basophils (%) (Auto) 0.8 % (0.0-2.0) Sodium Level 149 MMOL/L (136-145) H Potassium Level 3.8 MMOL/L (3.5-5.1) Chloride Level 120 MMOL/L (98-107) H Carbon Dioxide Level 18 MMOL/L (21-32) L Anion Gap 12 mmol/L (5-15) Blood Urea Nitrogen 24 mg/dL (7-18) H Creatinine 1.7 MG/DL (0.55-1.30) H Estimat Glomerular Filtration Rate mL/min (>60) Glucose Level 132 MG/DL (74-106) H Uric Acid 3.7 MG/DL (2.6-7.2) Calcium Level 7.3 MG/DL (8.5-10.1) L Phosphorus Level 2.4 MG/DL (2.5-4.9) L Magnesium Level 2.2 MG/DL (1.8-2.4) Total Bilirubin 0.4 MG/DL (0.2-1.0) Aspartate Amino Transf (AST/SGOT) 187 U/L (15-37) H Alanine Aminotransferase (ALT/SGPT) 204 U/L (12-78) H Alkaline Phosphatase 146 U/L (46-116) H Total Creatine Kinase 2116 U/L (26-308) H Pro-B-Type Natriuretic Peptide 1661 pg/mL (0-125) H Total Protein 5.9 G/DL (6.4-8.2) L Albumin 1.8 G/DL (3.4-5.0) L Globulin 4.1 g/dL Albumin/Globulin Ratio 0.4 (1.0-2.7) L Random Vancomycin Level 17.7 ug/mL Arterial Blood pH 7.430 (7.350-7.450) Arterial Blood Partial Pressure CO2 22.7 mmHg (35.0-45.0) *L Arterial Blood Partial Pressure O2 92.0 mmHg (75.0-100.0) Arterial Blood HCO3 14.9 mmol/L (22.0-26.0) *L Arterial Blood Oxygen Saturation 96.6 % (95-100) Arterial Blood Base Excess -8.0 (-2-2) L Ebenezer Test Positive Height (Feet): 5 Height (Inches): 5.00 Weight (Pounds): 156 General Appearance: no apparent distress Cardiovascular: normal rate Respiratory/Chest: normal breath sounds, no respiratory distress Abdominal Exam: normal bowel sounds, non tender, soft, GT site - c/d/i Extremities: non-tender Kishan Hopkins NP Dec 07, 2017 11:26
[2017-12-07] MEDS ORDERED: Iron Sucrose 200 MG in NS 110 ML IV SCH (12:00)
--- NOTE | 2017-12-07 12:58 | General Progress Note ---
Assessment/Plan Problem List: (1) Encephalopathy due to metabolic factor or toxin SNOMED: 147007984 Status: not improved, unchanged Assessment/Plan Seroquel prn dw staff Subjective Neurologic/Psychiatric: Reports: anxiety, emotional problems Allergies: Coded Allergies: TERAZOSIN (Verified Allergy, Unknown, 10/27/17) Subjective agitated at times Objective Last 24 Hour Vital Signs Date Time Temp Pulse Resp B/P (MAP) Pulse Ox O2 Delivery O2 Flow Rate FiO2 12/07/17 11:00 87 24 58/68 (65) 100 12/07/17 10:00 87 26 135/64 (87) 100 12/07/17 09:18 133/62 12/07/17 09:00 89 28 133/62 (85) 100 12/07/17 08:00 91 28 137/64 (88) 100 12/07/17 08:00 Nasal Cannula 2.0 12/07/17 07:54 90 12/07/17 07:12 Nasal Cannula 2.0 28 12/07/17 07:11 100 Nasal Cannula 2.0 28 12/07/17 07:10 93 22 Nasal Cannula 2.0 28 12/07/17 07:00 98.7 91 26 143/64 (90) 100 12/07/17 06:00 95 30 119/68 (85) 100 12/07/17 05:00 97 23 125/64 (84) 100 12/07/17 04:00 Nasal Cannula 2.0 12/07/17 04:00 98.6 95 30 140/66 (90) 100 12/07/17 04:00 97 12/07/17 03:00 92 31 142/59 (86) 100 12/07/17 02:00 93 29 143/65 (91) 100 12/07/17 01:00 90 28 135/65 (88) 100 12/07/17 00:00 Nasal Cannula 2.0 12/07/17 00:00 99.0 88 30 124/73 (90) 100 12/07/17 00:00 88 12/06/17 23:00 88 31 126/72 (90) 99 12/06/17 22:00 84 28 115/64 (81) 100 12/06/17 21:00 85 25 108/92 (97) 100 12/06/17 20:00 Nasal Cannula 2.0 12/06/17 20:00 89 31 132/53 (79) 100 12/06/17 20:00 89 12/06/17 19:52 89 21 Nasal Cannula 2.0 28 12/06/17 19:52 Nasal Cannula 2.0 28 12/06/17 19:52 100 Nasal Cannula 2.0 28 12/06/17 19:00 98.5 87 31 146/64 (91) 100 12/06/17 18:00 90 28 136/65 (88) 99 12/06/17 17:00 83 28 127/65 (85) 100 12/06/17 16:00 98.8 83 26 130/65 (86) 100 12/06/17 16:00 Room Air 12/06/17 16:00 90 12/06/17 16:00 4.0 12/06/17 15:00 81 25 158/75 (102) 100 12/06/17 14:00 85 25 129/60 (83) 100 12/06/17 13:00 87 26 137/63 (87) 100 Intake and Output 12/06/17 12/07/17 19:00 07:00 Intake Total 1813.5 ml 1755.0 ml Output Total 1115 ml 1340 ml Balance 698.5 ml 415.0 ml Free Water 60 ml IV Total 1533.5 ml 1365.0 ml Tube Feeding 180 ml 360 ml Other 40 ml 30 ml Output Urine Total 1015 ml 1240 ml Stool Total 100 ml 100 ml Laboratory Tests 12/07/17 04:00: White Blood Count 11.9H, Red Blood Count 3.20L, Hemoglobin 8.4L, Hematocrit 25.4L, Mean Corpuscular Volume 79L, Mean Corpuscular Hemoglobin 26.3L, Mean Corpuscular Hemoglobin Concent 33.2, Red Cell Distribution Width 15.5H, Platelet Count 110L, Mean Platelet Volume 10.0, Neutrophils (%) (Auto) 76.6H, Lymphocytes (%) (Auto) 13.5L, Monocytes (%) (Auto) 7.0, Eosinophils (%) (Auto) 2.1, Basophils (%) (Auto) 0.8, Sodium Level 149H, Potassium Level 3.8, Chloride Level 120H, Carbon Dioxide Level 18L, Anion Gap 12, Blood Urea Nitrogen 24H, Creatinine 1.7H, Estimat Glomerular Filtration Rate , Glucose Level 132H, Uric Acid 3.7, Calcium Level 7.3L, Phosphorus Level 2.4L, Magnesium Level 2.2, Total Bilirubin 0.4, Aspartate Amino Transf (AST/SGOT) 187H, Alanine Aminotransferase (ALT/SGPT) 204H, Alkaline Phosphatase 146H, Total Creatine Kinase 2116H, Pro-B- Type Natriuretic Peptide 1661H, Total Protein 5.9L, Albumin 1.8L, Globulin 4.1, Albumin/Globulin Ratio 0.4L, Random Vancomycin Level 17.7 12/07/17 07:23: Arterial Blood pH 7.430, Arterial Blood Partial Pressure CO2 22.7*L, Arterial Blood Partial Pressure O2 92.0, Arterial Blood HCO3 14.9*L, Arterial Blood Oxygen Saturation 96.6, Arterial Blood Base Excess -8.0L, Ebenezer Test Positive Height (Feet): 5 Height (Inches): 5.00 Weight (Pounds): 156 General Appearance: lethargic, confused, moderate distress, agitated Lauren Santoyo MD Dec 07, 2017 12:58
[2017-12-07] MEDS ORDERED: NS 275ml ONE (14:56)
--- NOTE | 2017-12-07 15:06 | Pulmonolgy Critical Care Note ---
Critical Care - Asmt/Plan Problems: (1) Hypernatremia (2) NSTEMI (non-ST elevated myocardial infarction) (3) UTI (urinary tract infection) (4) Severe sepsis (5) Respiratory failure (6) Renal failure (ARF), acute on chronic (7) Malnutrition (8) Pancreatitis (9) Pneumonia (10) Rhabdomyolysis (11) Hypoxemia (12) PEG (percutaneous endoscopic gastrostomy) status Assessment/Plan: Optimize pulmonary hygiene/mobilize as tolerated Titrate down FiO2 to keep SaO2 > 92% PRN HHN's Abx per ID (zosyn/vanco) Continue Midodrine Monitor volumes and electrolytes, mIVF TF's DVT Px: Hep SQ Glycemic control TTTele CCT 35 Critical Care - Objective Last 24 Hour Vital Signs Date Time Temp Pulse Resp B/P (MAP) Pulse Ox O2 Delivery O2 Flow Rate FiO2 12/07/17 14:00 88 28 119/73 (88) 100 12/07/17 13:00 97.8 87 29 127/69 (88) 100 12/07/17 12:00 Nasal Cannula 2.0 12/07/17 12:00 87 25 127/69 (88) 100 12/07/17 11:54 87 12/07/17 11:00 87 24 158/68 (98) 100 12/07/17 10:00 87 26 135/64 (87) 100 12/07/17 09:18 133/62 12/07/17 09:00 89 28 133/62 (85) 100 12/07/17 08:00 91 28 137/64 (88) 100 12/07/17 08:00 Nasal Cannula 2.0 12/07/17 07:54 90 12/07/17 07:12 Nasal Cannula 2.0 28 12/07/17 07:11 100 Nasal Cannula 2.0 28 12/07/17 07:10 93 22 Nasal Cannula 2.0 28 12/07/17 07:00 98.7 91 26 143/64 (90) 100 12/07/17 06:00 95 30 119/68 (85) 100 12/07/17 05:00 97 23 125/64 (84) 100 12/07/17 04:00 Nasal Cannula 2.0 12/07/17 04:00 98.6 95 30 140/66 (90) 100 12/07/17 04:00 97 11/1/18 03:00 92 31 142/59 (86) 100 12/07/17 02:00 93 29 143/65 (91) 100 12/07/17 01:00 90 28 135/65 (88) 100 12/07/17 00:00 Nasal Cannula 2.0 12/07/17 00:00 99.0 88 30 124/73 (90) 100 12/07/17 00:00 88 12/06/17 23:00 88 31 126/72 (90) 99 12/06/17 22:00 84 28 115/64 (81) 100 12/06/17 21:00 85 25 108/92 (97) 100 12/06/17 20:00 Nasal Cannula 2.0 12/06/17 20:00 89 31 132/53 (79) 100 12/06/17 20:00 89 12/06/17 19:52 89 21 Nasal Cannula 2.0 28 12/06/17 19:52 Nasal Cannula 2.0 28 12/06/17 19:52 100 Nasal Cannula 2.0 28 12/06/17 19:00 98.5 87 31 146/64 (91) 100 12/06/17 18:00 90 28 136/65 (88) 99 12/06/17 17:00 83 28 127/65 (85) 100 12/06/17 16:00 98.8 83 26 130/65 (86) 100 12/06/17 16:00 Room Air 12/06/17 16:00 90 12/06/17 16:00 4.0 Status: awake Condition: improving HEENT: atraumatic Neck: trach Lungs: clear Heart: HR/BP stable Abdomen: soft, non-tender, active bowel sounds, feeding tube Extremities: no C/C/E, edema Accucheck: 161 Blood Sugars: BS controlled Critical Care - Subjective ROS Limited/Unobtainable: Yes ICU Day: 7 Intubation Day: extubated Interval Events: AFVSS, on 2L, marcin TF, no sec, no distress, no F/C Condition: improving IV Access: PICC EKG Rhythm: Sinus Rhythm FI02: 28 Vent Support Breath Rate: 16 Vent Support Mode: CPAP Vent Tidal Volume: 500 Sputum Amount: None PEEP: 5.0 PIP: 11 Secretions: None Fluids: [id number] Tube Feeding Amount: 30 I&O: Intake and Output 12/06/17 12/07/17 19:00 07:00 Intake Total 1813.5 ml 1755.0 ml Output Total 1115 ml 1340 ml Balance 698.5 ml 415.0 ml Free Water 60 ml IV Total 1533.5 ml 1365.0 ml Tube Feeding 180 ml 360 ml Other 40 ml 30 ml Output Urine Total 1015 ml 1240 ml Stool Total 100 ml 100 ml Subjective: Dysarthric but denies complaints ET-Tube: 7.5 ET Position: 22 Labs: Laboratory Tests Test 12/07/17 04:00 12/07/17 07:23 White Blood Count 11.9 K/UL (4.8-10.8) H Red Blood Count 3.20 M/UL (4.70-6.10) L Hemoglobin 8.4 G/DL (14.2-18.0) L Hematocrit 25.4 % (42.0-52.0) L Mean Corpuscular Volume 79 FL (80-99) L Mean Corpuscular Hemoglobin 26.3 PG (27.0-31.0) L Mean Corpuscular Hemoglobin Concent 33.2 G/DL (32.0-36.0) Red Cell Distribution Width 15.5 % (11.6-14.8) H Platelet Count 110 K/UL (150-450) L Mean Platelet Volume 10.0 FL (6.5-10.1) Neutrophils (%) (Auto) 76.6 % (45.0-75.0) H Lymphocytes (%) (Auto) 13.5 % (20.0-45.0) L Monocytes (%) (Auto) 7.0 % (1.0-10.0) Eosinophils (%) (Auto) 2.1 % (0.0-3.0) Basophils (%) (Auto) 0.8 % (0.0-2.0) Sodium Level 149 MMOL/L (136-145) H Potassium Level 3.8 MMOL/L (3.5-5.1) Chloride Level 120 MMOL/L (98-107) H Carbon Dioxide Level 18 MMOL/L (21-32) L Anion Gap 12 mmol/L (5-15) Blood Urea Nitrogen 24 mg/dL (7-18) H Creatinine 1.7 MG/DL (0.55-1.30) H Estimat Glomerular Filtration Rate mL/min (>60) Glucose Level 132 MG/DL (74-106) H Uric Acid 3.7 MG/DL (2.6-7.2) Calcium Level 7.3 MG/DL (8.5-10.1) L Phosphorus Level 2.4 MG/DL (2.5-4.9) L Magnesium Level 2.2 MG/DL (1.8-2.4) Total Bilirubin 0.4 MG/DL (0.2-1.0) Aspartate Amino Transf (AST/SGOT) 187 U/L (15-37) H Alanine Aminotransferase (ALT/SGPT) 204 U/L (12-78) H Alkaline Phosphatase 146 U/L (46-116) H Total Creatine Kinase 2116 U/L (26-308) H Pro-B-Type Natriuretic Peptide 1661 pg/mL (0-125) H Total Protein 5.9 G/DL (6.4-8.2) L Albumin 1.8 G/DL (3.4-5.0) L Globulin 4.1 g/dL Albumin/Globulin Ratio 0.4 (1.0-2.7) L Random Vancomycin Level 17.7 ug/mL Arterial Blood pH 7.430 (7.350-7.450) Arterial Blood Partial Pressure CO2 22.7 mmHg (35.0-45.0) *L Arterial Blood Partial Pressure O2 92.0 mmHg (75.0-100.0) Arterial Blood HCO3 14.9 mmol/L (22.0-26.0) *L Arterial Blood Oxygen Saturation 96.6 % (95-100) Arterial Blood Base Excess -8.0 (-2-2) L Ebenezer Test Positive Fantasma Nielsen MD Dec 07, 2017 15:06
--- NOTE | 2017-12-07 23:00 | Cardiology Progress Note ---
Assessment/Plan Assessment/Plan 1. Septic shock in combination with hypovolemic shock, serum Na at149, continue IV fluid. Continue Midodrine. 2. Sinus tachycardia, resolved, most likely secondary to severe intravascular volume depletion, currently on appropriate fluid administration. 3. Slight elevation of troponin I level could be of a variety of etiologies in this patient, although [id number] myocardial infarction type 2 due to demand ischemia should be considered. Continue ASA and statins. Subjective Subjective Sinus rhythm at rate of 91. Objective Last 24 Hour Vital Signs Date Time Temp Pulse Resp B/P (MAP) Pulse Ox O2 Delivery O2 Flow Rate FiO2 12/07/17 22:27 100.4 101 20 149/77 (101) 99 12/07/17 21:00 100.4 101 20 149/77 (101) 99 12/07/17 20:00 Nasal Cannula 2.0 12/07/17 19:31 93 27 100 Nasal Cannula 2.0 28 12/07/17 19:20 Nasal Cannula 2.0 28 12/07/17 19:20 91 28 100 Nasal Cannula 2.0 28 12/07/17 19:19 100 Nasal Cannula 2.0 28 12/07/17 19:18 92 28 Nasal Cannula 2.0 28 12/07/17 19:00 90 28 131/63 (85) 99 12/07/17 18:00 90 25 147/70 (95) 100 12/07/17 17:00 98.1 91 27 135/70 (91) 100 12/07/17 16:00 Nasal Cannula 2.0 12/07/17 16:00 90 29 132/69 (90) 100 12/07/17 15:41 104 12/07/17 15:00 88 27 134/63 (86) 100 12/07/17 14:00 88 28 119/73 (88) 100 12/07/17 13:00 97.8 87 29 127/69 (88) 100 12/07/17 12:00 Nasal Cannula 2.0 12/07/17 12:00 87 25 127/69 (88) 100 12/07/17 11:54 87 12/07/17 11:00 87 24 158/68 (98) 100 12/07/17 10:00 87 26 135/64 (87) 100 12/07/17 09:18 133/62 12/07/17 09:00 89 28 133/62 (85) 100 12/07/17 08:00 91 28 137/64 (88) 100 12/07/17 08:00 Nasal Cannula 2.0 12/07/17 07:54 90 12/07/17 07:12 Nasal Cannula 2.0 28 12/07/17 07:11 100 Nasal Cannula 2.0 28 12/07/17 07:10 93 22 Nasal Cannula 2.0 28 12/07/17 07:00 98.7 91 26 143/64 (90) 100 12/07/17 06:00 95 30 119/68 (85) 100 12/07/17 05:00 97 23 125/64 (84) 100 12/07/17 04:00 Nasal Cannula 2.0 12/07/17 04:00 98.6 95 30 140/66 (90) 100 12/07/17 04:00 97 12/07/17 03:00 92 31 142/59 (86) 100 12/07/17 02:00 93 29 143/65 (91) 100 12/07/17 01:00 90 28 135/65 (88) 100 12/07/17 00:00 Nasal Cannula 2.0 12/07/17 00:00 99.0 88 30 124/73 (90) 100 12/07/17 00:00 88 12/06/17 23:00 88 31 126/72 (90) 99 Intake and Output 12/06/17 12/07/17 19:00 07:00 Intake Total 1813.5 ml 1755.0 ml Output Total 1115 ml 1340 ml Balance 698.5 ml 415.0 ml Free Water 60 ml IV Total 1533.5 ml 1365.0 ml Tube Feeding 180 ml 360 ml Other 40 ml 30 ml Output Urine Total 1015 ml 1240 ml Stool Total 100 ml 100 ml Laboratory Tests Test 12/07/17 04:00 12/07/17 07:23 White Blood Count 11.9 K/UL (4.8-10.8) H Red Blood Count 3.20 M/UL (4.70-6.10) L Hemoglobin 8.4 G/DL (14.2-18.0) L Hematocrit 25.4 % (42.0-52.0) L Mean Corpuscular Volume 79 FL (80-99) L Mean Corpuscular Hemoglobin 26.3 PG (27.0-31.0) L Mean Corpuscular Hemoglobin Concent 33.2 G/DL (32.0-36.0) Red Cell Distribution Width 15.5 % (11.6-14.8) H Platelet Count 110 K/UL (150-450) L Mean Platelet Volume 10.0 FL (6.5-10.1) Neutrophils (%) (Auto) 76.6 % (45.0-75.0) H Lymphocytes (%) (Auto) 13.5 % (20.0-45.0) L Monocytes (%) (Auto) 7.0 % (1.0-10.0) Eosinophils (%) (Auto) 2.1 % (0.0-3.0) Basophils (%) (Auto) 0.8 % (0.0-2.0) Sodium Level 149 MMOL/L (136-145) H Potassium Level 3.8 MMOL/L (3.5-5.1) Chloride Level 120 MMOL/L (98-107) H Carbon Dioxide Level 18 MMOL/L (21-32) L Anion Gap 12 mmol/L (5-15) Blood Urea Nitrogen 24 mg/dL (7-18) H Creatinine 1.7 MG/DL (0.55-1.30) H Estimat Glomerular Filtration Rate mL/min (>60) Glucose Level 132 MG/DL (74-106) H Uric Acid 3.7 MG/DL (2.6-7.2) Calcium Level 7.3 MG/DL (8.5-10.1) L Phosphorus Level 2.4 MG/DL (2.5-4.9) L Magnesium Level 2.2 MG/DL (1.8-2.4) Total Bilirubin 0.4 MG/DL (0.2-1.0) Aspartate Amino Transf (AST/SGOT) 187 U/L (15-37) H Alanine Aminotransferase (ALT/SGPT) 204 U/L (12-78) H Alkaline Phosphatase 146 U/L (46-116) H Total Creatine Kinase 2116 U/L (26-308) H Pro-B-Type Natriuretic Peptide 1661 pg/mL (0-125) H Total Protein 5.9 G/DL (6.4-8.2) L Albumin 1.8 G/DL (3.4-5.0) L Globulin 4.1 g/dL Albumin/Globulin Ratio 0.4 (1.0-2.7) L Random Vancomycin Level 17.7 ug/mL Arterial Blood pH 7.430 (7.350-7.450) Arterial Blood Partial Pressure CO2 22.7 mmHg (35.0-45.0) *L Arterial Blood Partial Pressure O2 92.0 mmHg (75.0-100.0) Arterial Blood HCO3 14.9 mmol/L (22.0-26.0) *L Arterial Blood Oxygen Saturation 96.6 % (95-100) Arterial Blood Base Excess -8.0 (-2-2) L Ebenezer Test Positive Objective HEENT: Atraumatic and normocephalic. Anicteric. Pupils are equal, round, and reactive to light and accommodation. Dry mucosal membranes. NECK: JVP less than 5 cm. No carotid bruit. Carotid upstrokes 2+ bilaterally. CARDIOVASCULAR: Normal S1, S2. Regular rhythm. Cannot appreciate any murmurs, gallops, or rubs. LUNGS: Diminished breath sounds in both lungs. ABDOMEN: Soft, nontender, and nondistended. Diminished bowel sounds. Presence of G-tube. No hepatosplenomegaly. EXTREMITIES: Contraction and pressure protection. No edema, clubbing, or cyanosis. Luke Estrada MD Dec 07, 2017 23:00
[2017-12-08] VITALS: BP 140/65
[2017-12-08] MEDS: Albuterol/Ipratropium 3ml neb HHN PRN ×2 (03:42→19:23)
[2017-12-08 04:00] VITALS: BP 139/68
[2017-12-08 05:29] LABS: EOSINOPHILS % (AUTO) 2.7 % (0.0-3.0); HEMATOCRIT 28.4 % (42.0-52.0); HEMOGLOBIN 9.3 G/DL (14.2-18.0); LYMPHOCYTES % (AUTO) 12.4 % (20.0-45.0); MEAN CORPUSCULAR VOLUME 80 FL (80-99); MONOCYTES % (AUTO) 11.5 % (1.0-10.0); NEUTROPHILS % (AUTO) 71.5 % (45.0-75.0); PLATELET COUNT 104 K/UL (150-450); RED BLOOD COUNT 3.56 M/UL (4.70-6.10); RED CELL DISTRIBUTION WIDTH 15.7 % (11.6-14.8); WHITE BLOOD COUNT 11.3 K/UL (4.8-10.8)
[2017-12-08] MEDS: Piperacillin/Tazobactam 3.375 GM in NS 110 ML IVPB SCH ×3 (05:57→22:12)
[2017-12-08] MEDS: NovoLOG Insulin Flexpen SUBQ SCH ×3 (06:00→17:57)
[2017-12-08 06:17] LABS: ALANINE AMINOTRANSFERASE 185 U/L (12-78); ALBUMIN 1.9 G/DL (3.4-5.0); ALBUMIN/GLOBULIN RATIO 0.4 (1.0-2.7); ALKALINE PHOSPHATASE 140 U/L (46-116); ANION GAP 11 mmol/L (5-15); ASPARTATE AMINO TRANSFERASE 113 U/L (15-37); BILIRUBIN,TOTAL 0.5 MG/DL (0.2-1.0); BLOOD UREA NITROGEN 18 mg/dL (7-18); CARBON DIOXIDE 19 MMOL/L (21-32); CHLORIDE 119 MMOL/L (98-107); CREATINE KINASE 1230 U/L (26-308); CREATININE 1.7 MG/DL (0.55-1.30); FERRITIN 326 NG/ML (8-388); PHOSPHORUS 3.3 MG/DL (2.5-4.9); POTASSIUM 3.8 MMOL/L (3.5-5.1); SODIUM 149 MMOL/L (136-145)
[2017-12-08 06:32] LABS: % IRON SATURATION 33 % (15-50); IRON 54 ug/dL (50-175); TOTAL IRON BINDING CAPACITY 162 ug/dL (250-450)
[2017-12-08 08:00] VITALS: BP 146/74
[2017-12-08] MEDS: Heparin 5000 units/ml inj SUBQ SCH ×2 (09:00→20:59)
[2017-12-08] MEDS ORDERED: Levemir Flexpen SUBQ SCH (09:00)
[2017-12-08] MEDS: Pantoprazole Inj IVP SCH ×2 (09:04→21:01)
[2017-12-08] MEDS: Sucralfate 1gm tab GT SCH ×4 (09:05→21:01)
[2017-12-08] MEDS: Nitroglycerin Patch 0.4mg TDERMAL SCH (09:05)
[2017-12-08] MEDS: Aspirin Baby 81mg NG SCH (09:05)
[2017-12-08] MEDS: Levemir Flexpen SUBQ SCH (09:09)
--- NOTE | 2017-12-08 09:16 | General Progress Note ---
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 --> Anemia w/u has been reviewed. Will trend CBC daily --> No evidence of hemolysis noted, peripheral smear reviewed --> Hgb goal >7. Transfuse as needed prn basis # Leukocytosis. Likely related to underlying infection vs reactive process. --> Imaging has been reviewed. Shows Stable cardiomegaly. Slight haziness of the pulmonary vascularity suggests mild interstitial edema. Unchanged elevation of the left hemidiaphragm. --> Blood cx and urine cx have been reviewed --> Has been started on abx, empiric rx # Thrombocytopenia. Potential causes multifactorial, could be chronic, in future may require bone marrow biopsy if does not improve --> Hep panel negative and HIV is negative --> abd us shows no significant cirrhosis or hsm --> Abx and other meds have been reviewed --> conside bmbx if in future does not improve --> Ok for ppx if heparin >50k with heparin sq --> currently appears to have stabilized # Constipation. --> ordered KUB evaluate abdominal distention - No acute process. Findings reviewed --> electrolyte correction --> prevacid GT --> bowel regime # Sepsis. # Malnutrition. --> peg GREATLY APPRECIATE CONSULTATION. Subjective Constitutional: Denies: no symptoms, chills, diaphoresis, fever, malaise, weakness, other HEENT: Denies: no symptoms, eye pain, blurred vision, tearing, double vision, ear pain, ear discharge, nose pain, nose congestion, throat pain, throat swelling, mouth pain, mouth swelling, other Cardiovascular: Denies: no symptoms, chest pain, edema, irregular heart rate, lightheadedness, palpitations, syncope, other Respiratory: Denies: no symptoms, cough, orthopnea, shortness of breath, SOB with excertion, SOB at rest, sputum, stridor, wheezing, other Genitourinary: Denies: no symptoms, burning, discharge, frequency, flank pain, hematuria, incontinence, pain, urgency, other Neurologic/Psychiatric: Denies: no symptoms, anxiety, depressed, emotional problems, headache, numbness, paresthesia, pre-existing deficit, seizure, tingling, tremors, weakness, other Endocrine: Denies: no symptoms, excessive sweating, flushing, intolerance to cold, intolerance to heat, increased hunger, increased thirst, increased urine, unexplained weight gain, unexplained weight loss, other Hematologic/Lymphatic: Denies: no symptoms, anemia, easy bleeding, easy bruising, other Allergies: Coded Allergies: TERAZOSIN (Verified Allergy, Unknown, 10/27/17) Subjective tele. Extubated. H/H stable. Objective Last 24 Hour Vital Signs Date Time Temp Pulse Resp B/P (MAP) Pulse Ox O2 Delivery O2 Flow Rate FiO2 12/08/17 09:05 146/74 12/08/17 04:00 Nasal Cannula 2.0 12/08/17 04:00 98.5 96 20 139/68 (91) 98 12/08/17 04:00 107 12/08/17 03:57 105 24 100 Nasal Cannula 2.0 28 12/08/17 03:43 96 28 99 Nasal Cannula 2.0 28 12/08/17 00:00 98.7 99 20 140/65 (90) 98 12/08/17 00:00 Nasal Cannula 2.0 12/07/17 23:00 98.7 99 20 140/65 (90) 98 12/07/17 22:27 100.4 101 20 149/77 (101) 99 12/07/17 21:00 100.4 101 20 149/77 (101) 99 12/07/17 20:00 98 12/07/17 20:00 Nasal Cannula 2.0 12/07/17 19:31 93 27 100 Nasal Cannula 2.0 28 12/07/17 19:20 Nasal Cannula 2.0 28 12/07/17 19:20 91 28 100 Nasal Cannula 2.0 28 12/07/17 19:19 100 Nasal Cannula 2.0 28 12/07/17 19:18 92 28 Nasal Cannula 2.0 28 12/07/17 19:00 90 28 131/63 (85) 99 12/07/17 18:00 90 25 147/70 (95) 100 12/07/17 17:00 98.1 91 27 135/70 (91) 100 12/07/17 16:00 Nasal Cannula 2.0 12/07/17 16:00 90 29 132/69 (90) 100 12/07/17 15:41 104 12/07/17 15:00 88 27 134/63 (86) 100 12/07/17 14:00 88 28 119/73 (88) 100 12/07/17 13:00 97.8 87 29 127/69 (88) 100 12/07/17 12:00 Nasal Cannula 2.0 12/07/17 12:00 87 25 127/69 (88) 100 12/07/17 11:54 87 12/07/17 11:00 87 24 158/68 (98) 100 12/07/17 10:00 87 26 135/64 (87) 100 12/07/17 09:18 133/62 Intake and Output 12/07/17 12/08/17 18:59 06:59 Intake Total 1702.814 ml 350 ml Output Total 1045 ml 910 ml Balance 657.814 ml -560 ml Free Water 50 ml IV Total 1222.814 ml 50 ml Tube Feeding 330 ml 300 ml Other 100 ml Output Urine Total 1035 ml 910 ml Stool Total 10 ml # Bowel Movements 100 Laboratory Tests 12/08/17 05:10: White Blood Count 11.3H, Red Blood Count 3.56L, Hemoglobin 9.3L, Hematocrit 28.4L, Mean Corpuscular Volume 80, Mean Corpuscular Hemoglobin 26.0L, Mean Corpuscular Hemoglobin Concent 32.6, Red Cell Distribution Width 15.7H, Platelet Count 104L, Mean Platelet Volume 9.5, Neutrophils (%) (Auto) 71.5, Lymphocytes (%) (Auto) 12.4L, Monocytes (%) (Auto) 11.5H, Eosinophils (%) (Auto ) 2.7, Basophils (%) (Auto) 2.0, Sodium Level 149H, Potassium Level 3.8, Chloride Level 119H, Carbon Dioxide Level 19L, Anion Gap 11, Blood Urea Nitrogen 18, Creatinine 1.7H, Estimat Glomerular Filtration Rate , Glucose Level 146H, Calcium Level 8.0L, Phosphorus Level 3.3, Magnesium Level 2.1, Iron Level 54, Total Iron Binding Capacity 162L, Percent Iron Saturation 33, Unsaturated Iron Binding 108L, Ferritin 326, Total Bilirubin 0.5, Aspartate Amino Transf (AST/SGOT) 113H, Alanine Aminotransferase (ALT/SGPT) 185H, Alkaline Phosphatase 140H, Total Creatine Kinase 1230H, Troponin I 0.057H, C- Reactive Protein, Quantitative 11.0H, Pro-B-Type Natriuretic Peptide 1369H, Total Protein 6.4, Albumin 1.9L, Globulin 4.5, Albumin/Globulin Ratio 0.4L, Lipase 924H, Vitamin B12 Level 1877H, Folate 19.2, Random Vancomycin Level 11.5 Height (Feet): 5 Height (Inches): 5.00 Weight (Pounds): 172 General Appearance: alert EENT: normal ENT inspection Neck: normal alignment Cardiovascular: normal rate Respiratory/Chest: lungs clear Abdomen: non tender, other - ++peg Extremities: non-tender Edema: 1+ Leg (L), 1+ Leg (R) Edema: mild edema Neurologic: alert Skin: warm/dry Objective peg+++ Beny Dalton MD Dec 08, 2017 09:16
--- NOTE | 2017-12-08 11:23 | Infectious Diseases Prog Note ---
Assessment/Plan Assessment/Plan A; Sepsis, SIRS Pancreatitis Rhabdomyolysis Acute respiratory failure Acute renal failure improving Dehydration Elevated transaminase P: Continue Zosyn & Vancomycin Subjective ROS Limited/Unobtainable: Yes Constitutional: Reports: other - doing better, transferred out of ICU Allergies: Coded Allergies: TERAZOSIN (Verified Allergy, Unknown, 10/27/17) Objective Vital Signs Last 24 Hour Vital Signs Date Time Temp Pulse Resp B/P (MAP) Pulse Ox O2 Delivery O2 Flow Rate FiO2 12/08/17 09:05 146/74 12/08/17 08:00 Nasal Cannula 2.0 12/08/17 08:00 99.4 99 20 146/74 (98) 100 12/08/17 04:00 Nasal Cannula 2.0 12/08/17 04:00 98.5 96 20 139/68 (91) 98 12/08/17 04:00 107 12/08/17 03:57 105 24 100 Nasal Cannula 2.0 28 12/08/17 03:43 96 28 99 Nasal Cannula 2.0 28 12/08/17 00:00 98.7 99 20 140/65 (90) 98 12/08/17 00:00 Nasal Cannula 2.0 12/07/17 23:00 98.7 99 20 140/65 (90) 98 12/07/17 22:27 100.4 101 20 149/77 (101) 99 12/07/17 21:00 100.4 101 20 149/77 (101) 99 12/07/17 20:00 98 12/07/17 20:00 Nasal Cannula 2.0 12/07/17 19:31 93 27 100 Nasal Cannula 2.0 28 12/07/17 19:20 Nasal Cannula 2.0 28 12/07/17 19:20 91 28 100 Nasal Cannula 2.0 28 12/07/17 19:19 100 Nasal Cannula 2.0 28 12/07/17 19:18 92 28 Nasal Cannula 2.0 28 12/07/17 19:00 90 28 131/63 (85) 99 12/07/17 18:00 90 25 147/70 (95) 100 12/07/17 17:00 98.1 91 27 135/70 (91) 100 12/07/17 16:00 Nasal Cannula 2.0 12/07/17 16:00 90 29 132/69 (90) 100 12/07/17 15:41 104 12/07/17 15:00 88 27 134/63 (86) 100 12/07/17 14:00 88 28 119/73 (88) 100 12/07/17 13:00 97.8 87 29 127/69 (88) 100 12/07/17 12:00 Nasal Cannula 2.0 12/07/17 12:00 87 25 127/69 (88) 100 12/07/17 11:54 87 Height (Feet): 5 Height (Inches): 5.00 Weight (Pounds): 172 General Appearance: no acute distress HEENT: mucous membranes moist Respiratory/Chest: lungs clear Cardiovascular: normal rate Abdomen: soft, non tender, other - GT & rectal tube Extremities: other - generalized edema Neurologic/Psychiatric: aphasia Laboratory Tests Test 12/08/17 05:10 White Blood Count 11.3 K/UL (4.8-10.8) H Red Blood Count 3.56 M/UL (4.70-6.10) L Hemoglobin 9.3 G/DL (14.2-18.0) L Hematocrit 28.4 % (42.0-52.0) L Mean Corpuscular Volume 80 FL (80-99) Mean Corpuscular Hemoglobin 26.0 PG (27.0-31.0) L Mean Corpuscular Hemoglobin Concent 32.6 G/DL (32.0-36.0) Red Cell Distribution Width 15.7 % (11.6-14.8) H Platelet Count 104 K/UL (150-450) L Mean Platelet Volume 9.5 FL (6.5-10.1) Neutrophils (%) (Auto) 71.5 % (45.0-75.0) Lymphocytes (%) (Auto) 12.4 % (20.0-45.0) L Monocytes (%) (Auto) 11.5 % (1.0-10.0) H Eosinophils (%) (Auto) 2.7 % (0.0-3.0) Basophils (%) (Auto) 2.0 % (0.0-2.0) Sodium Level 149 MMOL/L (136-145) H Potassium Level 3.8 MMOL/L (3.5-5.1) Chloride Level 119 MMOL/L (98-107) H Carbon Dioxide Level 19 MMOL/L (21-32) L Anion Gap 11 mmol/L (5-15) Blood Urea Nitrogen 18 mg/dL (7-18) Creatinine 1.7 MG/DL (0.55-1.30) H Estimat Glomerular Filtration Rate mL/min (>60) Glucose Level 146 MG/DL (74-106) H Calcium Level 8.0 MG/DL (8.5-10.1) L Phosphorus Level 3.3 MG/DL (2.5-4.9) Magnesium Level 2.1 MG/DL (1.8-2.4) Iron Level 54 ug/dL (50-175) Total Iron Binding Capacity 162 ug/dL (250-450) L Percent Iron Saturation 33 % (15-50) Unsaturated Iron Binding 108 ug/dL (112-346) L Ferritin 326 NG/ML (8-388) Total Bilirubin 0.5 MG/DL (0.2-1.0) Aspartate Amino Transf (AST/SGOT) 113 U/L (15-37) H Alanine Aminotransferase (ALT/SGPT) 185 U/L (12-78) H Alkaline Phosphatase 140 U/L (46-116) H Total Creatine Kinase 1230 U/L (26-308) H Troponin I 0.057 ng/mL (0.000-0.056) C-Reactive Protein, Quantitative 11.0 mg/dL (0.00-0.90) H Pro-B-Type Natriuretic Peptide 1369 pg/mL (0-125) H Total Protein 6.4 G/DL (6.4-8.2) Albumin 1.9 G/DL (3.4-5.0) L Globulin 4.5 g/dL Albumin/Globulin Ratio 0.4 (1.0-2.7) L Lipase 924 U/L (73-393) H Vitamin B12 Level 1877 PG/ML (193-986) H Folate 19.2 NG/ML (8.6-58.9) Random Vancomycin Level 11.5 ug/mL Current Medications Medications (Trade) Dose Ordered Sig/Ruthie Route PRN Reason Start Time Stop Time Status Last Admin Dose Admin Albuterol/ Ipratropium (Albuterol/ Ipratropium) 3 ml Q4H PRN HHN Shortness of Breath 12/07/17 23:30 12/10/17 15:20 12/08/17 03:42 Aspirin (ASA) 162 mg DAILY NG 12/08/17 09:00 01/01/18 08:59 12/08/17 09:05 Chlorhexidine Gluconate (Rachael-Hex 2%) 1 applic DAILY@2000 TOPIC 12/08/17 20:00 01/03/18 19:59 Clonidine HCl (Catapres Tab) 0.1 mg Q4H PRN ORAL BLOOD PRESSURE 12/07/17 21:15 01/06/18 21:14 Dextrose (Dextrose 50%) 25 ml Q30M PRN IV Hypoglycemia 12/07/17 20:30 01/03/18 06:59 Dextrose (Dextrose 50%) 50 ml Q30M PRN IV Hypoglycemia 12/07/17 20:30 01/03/18 06:59 Dextrose/ Electrolytes 1,000 ml @ 50 mls/hr Q20H IV 12/07/17 20:30 01/03/18 10:46 12/07/17 21:31 Heparin Sodium (Porcine) (Heparin 5000 units/ml) 5,000 units EVERY 12 HOURS SUBQ 12/07/17 21:00 12/31/17 20:59 Insulin Aspart (NovoLOG) EVERY 6 HOURS SUBQ 12/08/17 00:00 01/01/18 20:59 12/08/17 06:00 Insulin Detemir (Levemir) 15 units Q24H SUBQ 12/08/17 09:00 01/07/18 08:59 12/08/17 09:09 Loperamide HCl (Imodium) 2 mg Q6H PRN NG Diarrhea 12/07/17 20:30 01/02/18 08:29 Midodrine (Pro-Amatine) 5 mg THREE TIMES A DAY GT 12/08/17 09:00 01/02/18 17:59 Nitroglycerin (Ntg) 1 patch Q24H TDERMAL 12/08/17 09:00 01/01/18 08:59 12/08/17 09:05 Pantoprazole (Protonix) 40 mg EVERY 12 HOURS IVP 12/07/17 21:00 12/31/17 20:59 12/08/17 09:04 Piperacillin Sod/ Tazobactam Sod 3.375 gm/Sodium Chloride 110 ml @ 27.5 mls/hr Q8HR IVPB 12/07/17 22:00 12/12/17 08:59 12/08/17 05:57 Quetiapine Fumarate (SEROquel) 12.5 mg Q4H PRN GT agitation 12/07/17 20:45 01/03/18 20:29 Sucralfate (Carafate) 1 gm FOUR TIMES A DAY GT 12/07/17 21:00 12/31/17 17:59 12/08/17 09:05 Anam Cruz MD Dec 08, 2017 11:23
--- NOTE | 2017-12-08 11:24 | GI Progress Note ---
Assessment/Plan Problems: (1) Malnutrition ICD Codes: E46 - Unspecified protein-calorie malnutrition SNOMED: 31503814 (2) Pancreatitis ICD Codes: K85.90 - Acute pancreatitis without necrosis or infection, unspecified SNOMED: 19345274 Qualifiers: Qualified Codes: K85.90 - Acute pancreatitis without necrosis or infection, unspecified (3) Constipation ICD Codes: K59.00 - Constipation, unspecified SNOMED: 70179091 (4) PEG (percutaneous endoscopic gastrostomy) status ICD Codes: Z93.1 - Gastrostomy status SNOMED: 068777098, 667769001 (5) DM (6) Severe sepsis ICD Codes: A41.9 - Sepsis, unspecified organism; R65.20 - Severe sepsis without septic shock SNOMED: 49011368 Status: stable Status Narrative Discussed with Dr. Coronel. Assessment/Plan KUB reviewed for abdominal distention >> no acute findings transaminitis >> hep panel negative defer GI proceduers prn transfusions on GTF ,renal 30 cc Imodium prn rectal tube fu nephrology fu labs ppi BID trend LFTs The patient was seen and examined at bedside and all new and available data was reviewed in the patients chart. I agree with the above findings, impression and plan. (Patient seen earlier today. Signature stamp does not reflect patient encounter time.). - Juan Coronel MD Subjective Subjective limited Objective Last 24 Hour Vital Signs Date Time Temp Pulse Resp B/P (MAP) Pulse Ox O2 Delivery O2 Flow Rate FiO2 12/08/17 09:05 146/74 12/08/17 08:00 Nasal Cannula 2.0 12/08/17 08:00 99.4 99 20 146/74 (98) 100 12/08/17 04:00 Nasal Cannula 2.0 12/08/17 04:00 98.5 96 20 139/68 (91) 98 12/08/17 04:00 107 12/08/17 03:57 105 24 100 Nasal Cannula 2.0 28 12/08/17 03:43 96 28 99 Nasal Cannula 2.0 28 12/08/17 00:00 98.7 99 20 140/65 (90) 98 12/08/17 00:00 Nasal Cannula 2.0 12/07/17 23:00 98.7 99 20 140/65 (90) 98 12/07/17 22:27 100.4 101 20 149/77 (101) 99 12/07/17 21:00 100.4 101 20 149/77 (101) 99 12/07/17 20:00 98 12/07/17 20:00 Nasal Cannula 2.0 12/07/17 19:31 93 27 100 Nasal Cannula 2.0 28 12/07/17 19:20 Nasal Cannula 2.0 28 12/07/17 19:20 91 28 100 Nasal Cannula 2.0 28 12/07/17 19:19 100 Nasal Cannula 2.0 28 12/07/17 19:18 92 28 Nasal Cannula 2.0 28 12/07/17 19:00 90 28 131/63 (85) 99 12/07/17 18:00 90 25 147/70 (95) 100 12/07/17 17:00 98.1 91 27 135/70 (91) 100 12/07/17 16:00 Nasal Cannula 2.0 12/07/17 16:00 90 29 132/69 (90) 100 12/07/17 15:41 104 12/07/17 15:00 88 27 134/63 (86) 100 12/07/17 14:00 88 28 119/73 (88) 100 12/07/17 13:00 97.8 87 29 127/69 (88) 100 12/07/17 12:00 Nasal Cannula 2.0 12/07/17 12:00 87 25 127/69 (88) 100 12/07/17 11:54 87 Intake and Output 12/07/17 12/08/17 19:00 07:00 Intake Total 1625.314 ml 300 ml Output Total 780 ml 900 ml Balance 845.314 ml -600 ml Free Water 50 ml IV Total 1145.314 ml Tube Feeding 330 ml 300 ml Other 100 ml Output Urine Total 770 ml 900 ml Stool Total 10 ml # Bowel Movements 100 Laboratory Tests Test 12/08/17 05:10 White Blood Count 11.3 K/UL (4.8-10.8) H Red Blood Count 3.56 M/UL (4.70-6.10) L Hemoglobin 9.3 G/DL (14.2-18.0) L Hematocrit 28.4 % (42.0-52.0) L Mean Corpuscular Volume 80 FL (80-99) Mean Corpuscular Hemoglobin 26.0 PG (27.0-31.0) L Mean Corpuscular Hemoglobin Concent 32.6 G/DL (32.0-36.0) Red Cell Distribution Width 15.7 % (11.6-14.8) H Platelet Count 104 K/UL (150-450) L Mean Platelet Volume 9.5 FL (6.5-10.1) Neutrophils (%) (Auto) 71.5 % (45.0-75.0) Lymphocytes (%) (Auto) 12.4 % (20.0-45.0) L Monocytes (%) (Auto) 11.5 % (1.0-10.0) H Eosinophils (%) (Auto) 2.7 % (0.0-3.0) Basophils (%) (Auto) 2.0 % (0.0-2.0) Sodium Level 149 MMOL/L (136-145) H Potassium Level 3.8 MMOL/L (3.5-5.1) Chloride Level 119 MMOL/L (98-107) H Carbon Dioxide Level 19 MMOL/L (21-32) L Anion Gap 11 mmol/L (5-15) Blood Urea Nitrogen 18 mg/dL (7-18) Creatinine 1.7 MG/DL (0.55-1.30) H Estimat Glomerular Filtration Rate mL/min (>60) Glucose Level 146 MG/DL (74-106) H Calcium Level 8.0 MG/DL (8.5-10.1) L Phosphorus Level 3.3 MG/DL (2.5-4.9) Magnesium Level 2.1 MG/DL (1.8-2.4) Iron Level 54 ug/dL (50-175) Total Iron Binding Capacity 162 ug/dL (250-450) L Percent Iron Saturation 33 % (15-50) Unsaturated Iron Binding 108 ug/dL (112-346) L Ferritin 326 NG/ML (8-388) Total Bilirubin 0.5 MG/DL (0.2-1.0) Aspartate Amino Transf (AST/SGOT) 113 U/L (15-37) H Alanine Aminotransferase (ALT/SGPT) 185 U/L (12-78) H Alkaline Phosphatase 140 U/L (46-116) H Total Creatine Kinase 1230 U/L (26-308) H Troponin I 0.057 ng/mL (0.000-0.056) C-Reactive Protein, Quantitative 11.0 mg/dL (0.00-0.90) H Pro-B-Type Natriuretic Peptide 1369 pg/mL (0-125) H Total Protein 6.4 G/DL (6.4-8.2) Albumin 1.9 G/DL (3.4-5.0) L Globulin 4.5 g/dL Albumin/Globulin Ratio 0.4 (1.0-2.7) L Lipase 924 U/L (73-393) H Vitamin B12 Level 1877 PG/ML (193-986) H Folate 19.2 NG/ML (8.6-58.9) Random Vancomycin Level 11.5 ug/mL Height (Feet): 5 Height (Inches): 5.00 Weight (Pounds): 172 General Appearance: WD/WN, no apparent distress, alert Cardiovascular: normal rate Respiratory/Chest: normal breath sounds, no respiratory distress Abdominal Exam: normal bowel sounds, non tender, soft, GT site Extremities: non-tender Kishan Hopkins NP Dec 08, 2017 11:24
[2017-12-08 12:00] VITALS: BP 136/70
--- NOTE | 2017-12-08 13:13 | Nephrology Progress Note ---
Assessment/Plan Problem List: (1) Renal failure (ARF), acute on chronic (2) Respiratory failure (3) Hypernatremia (4) Rhabdomyolysis (5) DM Assessment Acute respiratory failure- now extubated Acute Renal failure- Severe Dehydration PEG Sepsis / UTI / Pneumonia Hypotension- Septic Shock High Lipase Rhabdo- High CPK Elevated Troponin Dementia Plan adjust midodrine- change IV rate- K supplement as needed check am vanco levels monitor CK post extubation care Gastric support Antibiotics Monitor renal parameters Poor prognosis Per orders Subjective ROS Limited/Unobtainable: No Constitutional: Reports: malaise Objective Objective Last 24 Hour Vital Signs Date Time Temp Pulse Resp B/P (MAP) Pulse Ox O2 Delivery O2 Flow Rate FiO2 12/08/17 10:10 100 Nasal Cannula 2.0 28 12/08/17 10:10 Nasal Cannula 2.0 28 12/08/17 10:10 95 21 Nasal Cannula 2.0 28 12/08/17 09:05 146/74 12/08/17 08:00 Nasal Cannula 2.0 12/08/17 08:00 99.4 99 20 146/74 (98) 100 12/08/17 04:00 Nasal Cannula 2.0 12/08/17 04:00 98.5 96 20 139/68 (91) 98 12/08/17 04:00 107 12/08/17 03:57 105 24 100 Nasal Cannula 2.0 28 12/08/17 03:43 96 28 99 Nasal Cannula 2.0 28 12/08/17 00:00 98.7 99 20 140/65 (90) 98 12/08/17 00:00 Nasal Cannula 2.0 12/07/17 23:00 98.7 99 20 140/65 (90) 98 12/07/17 22:27 100.4 101 20 149/77 (101) 99 12/07/17 21:00 100.4 101 20 149/77 (101) 99 12/07/17 20:00 98 12/07/17 20:00 Nasal Cannula 2.0 12/07/17 19:31 93 27 100 Nasal Cannula 2.0 28 12/07/17 19:20 Nasal Cannula 2.0 28 12/07/17 19:20 91 28 100 Nasal Cannula 2.0 28 12/07/17 19:19 100 Nasal Cannula 2.0 28 11/1/18 19:18 92 28 Nasal Cannula 2.0 28 12/07/17 19:00 90 28 131/63 (85) 99 12/07/17 18:00 90 25 147/70 (95) 100 12/07/17 17:00 98.1 91 27 135/70 (91) 100 12/07/17 16:00 Nasal Cannula 2.0 12/07/17 16:00 90 29 132/69 (90) 100 12/07/17 15:41 104 12/07/17 15:00 88 27 134/63 (86) 100 12/07/17 14:00 88 28 119/73 (88) 100 Intake and Output 12/07/17 12/08/17 19:00 07:00 Intake Total 1625.314 ml 300 ml Output Total 780 ml 900 ml Balance 845.314 ml -600 ml Free Water 50 ml IV Total 1145.314 ml Tube Feeding 330 ml 300 ml Other 100 ml Output Urine Total 770 ml 900 ml Stool Total 10 ml # Bowel Movements 100 Laboratory Tests 12/08/17 05:10: White Blood Count 11.3H, Red Blood Count 3.56L, Hemoglobin 9.3L, Hematocrit 28.4L, Mean Corpuscular Volume 80, Mean Corpuscular Hemoglobin 26.0L, Mean Corpuscular Hemoglobin Concent 32.6, Red Cell Distribution Width 15.7H, Platelet Count 104L, Mean Platelet Volume 9.5, Neutrophils (%) (Auto) 71.5, Lymphocytes (%) (Auto) 12.4L, Monocytes (%) (Auto) 11.5H, Eosinophils (%) (Auto ) 2.7, Basophils (%) (Auto) 2.0, Sodium Level 149H, Potassium Level 3.8, Chloride Level 119H, Carbon Dioxide Level 19L, Anion Gap 11, Blood Urea Nitrogen 18, Creatinine 1.7H, Estimat Glomerular Filtration Rate , Glucose Level 146H, Calcium Level 8.0L, Phosphorus Level 3.3, Magnesium Level 2.1, Iron Level 54, Total Iron Binding Capacity 162L, Percent Iron Saturation 33, Unsaturated Iron Binding 108L, Ferritin 326, Total Bilirubin 0.5, Aspartate Amino Transf (AST/SGOT) 113H, Alanine Aminotransferase (ALT/SGPT) 185H, Alkaline Phosphatase 140H, Total Creatine Kinase 1230H, Troponin I 0.057H, C- Reactive Protein, Quantitative 11.0H, Pro-B-Type Natriuretic Peptide 1369H, Total Protein 6.4, Albumin 1.9L, Globulin 4.5, Albumin/Globulin Ratio 0.4L, Lipase 924H, Vitamin B12 Level 1877H, Folate 19.2, Random Vancomycin Level 11.5 Height (Feet): 5 Height (Inches): 5.00 Weight (Pounds): 172 General Appearance: no apparent distress Cardiovascular: tachycardia Respiratory/Chest: decreased breath sounds Abdomen: distended Objective no other change Randolph Fernandes MD Dec 08, 2017 13:13
--- NOTE | 2017-12-08 14:48 | Pulmonology Progress Note ---
Assessment/Plan Problems: (1) Encephalopathy due to metabolic factor or toxin (2) Sacral decubitus ulcer (3) UTI (urinary tract infection) (4) Pneumonia (5) Renal failure (ARF), acute on chronic (6) Rhabdomyolysis (7) DM (8) Hypernatremia (9) NSTEMI (non-ST elevated myocardial infarction) (10) Severe sepsis (11) Respiratory failure (12) Pancreatitis (13) Malnutrition (14) Constipation Assessment/Plan Optimize pulmonary hygiene/mobilize as tolerated Titrate down FiO2 to keep SaO2 > 92% PRN HHN's Abx per ID (zosyn/vanco) Continue Midodrine Monitor volumes and electrolytes, mIVF TF's DVT Px: Hep SQ Glycemic control Subjective Allergies: Coded Allergies: TERAZOSIN (Verified Allergy, Unknown, 10/27/17) Subjective Tm 100.4 VSS TTF on 2L + cough + congestion Cr, transaminases and trop better Objective Last 24 Hour Vital Signs Date Time Temp Pulse Resp B/P (MAP) Pulse Ox O2 Delivery O2 Flow Rate FiO2 12/08/17 10:10 100 Nasal Cannula 2.0 28 12/08/17 10:10 Nasal Cannula 2.0 28 12/08/17 10:10 95 21 Nasal Cannula 2.0 28 12/08/17 09:05 146/74 12/08/17 08:00 Nasal Cannula 2.0 12/08/17 08:00 99.4 99 20 146/74 (98) 100 12/08/17 04:00 Nasal Cannula 2.0 12/08/17 04:00 98.5 96 20 139/68 (91) 98 12/08/17 04:00 107 12/08/17 03:57 105 24 100 Nasal Cannula 2.0 28 12/08/17 03:43 96 28 99 Nasal Cannula 2.0 28 12/08/17 00:00 98.7 99 20 140/65 (90) 98 12/08/17 00:00 Nasal Cannula 2.0 12/07/17 23:00 98.7 99 20 140/65 (90) 98 12/07/17 22:27 100.4 101 20 149/77 (101) 99 12/07/17 21:00 100.4 101 20 149/77 (101) 99 12/07/17 20:00 98 12/07/17 20:00 Nasal Cannula 2.0 12/07/17 19:31 93 27 100 Nasal Cannula 2.0 28 12/07/17 19:20 Nasal Cannula 2.0 28 12/07/17 19:20 91 28 100 Nasal Cannula 2.0 28 12/07/17 19:19 100 Nasal Cannula 2.0 28 12/07/17 19:18 92 28 Nasal Cannula 2.0 28 12/07/17 19:00 90 28 131/63 (85) 99 12/07/17 18:00 90 25 147/70 (95) 100 12/07/17 17:00 98.1 91 27 135/70 (91) 100 12/07/17 16:00 Nasal Cannula 2.0 12/07/17 16:00 90 29 132/69 (90) 100 12/07/17 15:41 104 12/07/17 15:00 88 27 134/63 (86) 100 Intake and Output 12/07/17 12/08/17 19:00 07:00 Intake Total 1625.314 ml 300 ml Output Total 780 ml 900 ml Balance 845.314 ml -600 ml Free Water 50 ml IV Total 1145.314 ml Tube Feeding 330 ml 300 ml Other 100 ml Output Urine Total 770 ml 900 ml Stool Total 10 ml # Bowel Movements 100 General Appearance: no acute distress, cachetic HEENT: normocephalic, atraumatic, anicteric, mucous membranes moist Respiratory/Chest: rhonchi Cardiovascular: normal peripheral pulses, normal rate, regular rhythm Abdomen: normal bowel sounds, soft, non tender, no organomegaly, other - GT Extremities: no cyanosis, no clubbing, no edema Laboratory Tests 12/08/17 05:10: White Blood Count 11.3H, Red Blood Count 3.56L, Hemoglobin 9.3L, Hematocrit 28.4L, Mean Corpuscular Volume 80, Mean Corpuscular Hemoglobin 26.0L, Mean Corpuscular Hemoglobin Concent 32.6, Red Cell Distribution Width 15.7H, Platelet Count 104L, Mean Platelet Volume 9.5, Neutrophils (%) (Auto) 71.5, Lymphocytes (%) (Auto) 12.4L, Monocytes (%) (Auto) 11.5H, Eosinophils (%) (Auto ) 2.7, Basophils (%) (Auto) 2.0, Sodium Level 149H, Potassium Level 3.8, Chloride Level 119H, Carbon Dioxide Level 19L, Anion Gap 11, Blood Urea Nitrogen 18, Creatinine 1.7H, Estimat Glomerular Filtration Rate , Glucose Level 146H, Calcium Level 8.0L, Phosphorus Level 3.3, Magnesium Level 2.1, Iron Level 54, Total Iron Binding Capacity 162L, Percent Iron Saturation 33, Unsaturated Iron Binding 108L, Ferritin 326, Total Bilirubin 0.5, Aspartate Amino Transf (AST/SGOT) 113H, Alanine Aminotransferase (ALT/SGPT) 185H, Alkaline Phosphatase 140H, Total Creatine Kinase 1230H, Troponin I 0.057H, C- Reactive Protein, Quantitative 11.0H, Pro-B-Type Natriuretic Peptide 1369H, Total Protein 6.4, Albumin 1.9L, Globulin 4.5, Albumin/Globulin Ratio 0.4L, Lipase 924H, Vitamin B12 Level 1877H, Folate 19.2, Random Vancomycin Level 11.5 Current Medications Medications (Trade) Dose Ordered Sig/Ruthie Route PRN Reason Start Time Stop Time Status Last Admin Dose Admin Albuterol/ Ipratropium (Albuterol/ Ipratropium) 3 ml Q4H PRN HHN Shortness of Breath 12/07/17 23:30 12/10/17 15:20 12/08/17 03:42 Aspirin (ASA) 162 mg DAILY NG 12/08/17 09:00 01/01/18 08:59 12/08/17 09:05 Chlorhexidine Gluconate (Rachael-Hex 2%) 1 applic DAILY@2000 TOPIC 12/08/17 20:00 01/03/18 19:59 Clonidine HCl (Catapres Tab) 0.1 mg Q4H PRN ORAL BLOOD PRESSURE 12/07/17 21:15 01/06/18 21:14 Dextrose (Dextrose 50%) 25 ml Q30M PRN IV Hypoglycemia 12/07/17 20:30 01/03/18 06:59 Dextrose (Dextrose 50%) 50 ml Q30M PRN IV Hypoglycemia 12/07/17 20:30 01/03/18 06:59 Dextrose/ Electrolytes 1,000 ml @ 50 mls/hr Q20H IV 12/07/17 20:30 01/03/18 10:46 12/07/17 21:31 Heparin Sodium (Porcine) (Heparin 5000 units/ml) 5,000 units EVERY 12 HOURS SUBQ 12/07/17 21:00 12/31/17 20:59 Insulin Aspart (NovoLOG) EVERY 6 HOURS SUBQ 12/08/17 00:00 01/01/18 20:59 12/08/17 12:21 Insulin Detemir (Levemir) 15 units Q24H SUBQ 12/08/17 09:00 01/07/18 08:59 12/08/17 09:09 Loperamide HCl (Imodium) 2 mg Q6H PRN NG Diarrhea 12/07/17 20:30 01/02/18 08:29 Midodrine (Pro-Amatine) 5 mg THREE TIMES A DAY GT 12/08/17 09:00 01/02/18 17:59 Nitroglycerin (Ntg) 1 patch Q24H TDERMAL 12/08/17 09:00 01/01/18 08:59 12/08/17 09:05 Pantoprazole (Protonix) 40 mg EVERY 12 HOURS IVP 12/07/17 21:00 12/31/17 20:59 12/08/17 09:04 Piperacillin Sod/ Tazobactam Sod 3.375 gm/Sodium Chloride 110 ml @ 27.5 mls/hr Q8HR IVPB 12/07/17 22:00 12/12/17 08:59 12/08/17 13:33 Quetiapine Fumarate (SEROquel) 12.5 mg Q4H PRN GT agitation 12/07/17 20:45 01/03/18 20:29 Sucralfate (Carafate) 1 gm FOUR TIMES A DAY GT 12/07/17 21:00 12/31/17 17:59 12/08/17 13:34 Fantasma Nielsen MD Dec 08, 2017 14:48
[2017-12-08 16:00] VITALS: BP 150/82
[2017-12-08] MEDS: D5W w/KCl 20mEq 1,000 ML IV SCH (16:30)
--- NOTE | 2017-12-08 19:39 | General Progress Note ---
Assessment/Plan Problem List: (1) Hypoxemia ICD Codes: R09.02 - Hypoxemia SNOMED: 925124415 (2) Pneumonia ICD Codes: J18.9 - Pneumonia, unspecified organism SNOMED: 511694747 (3) Malnutrition ICD Codes: E46 - Unspecified protein-calorie malnutrition SNOMED: 70299403 (4) Renal failure (ARF), acute on chronic ICD Codes: N17.9 - Acute kidney failure, unspecified; N18.9 - Chronic kidney disease, unspecified SNOMED: 638445323 Qualifiers: Qualified Codes: N17.9 - Acute kidney failure, unspecified; N18.3 - Chronic kidney disease, stage 3 (moderate) (5) Respiratory failure ICD Codes: J96.90 - Respiratory failure, unspecified, unspecified whether with hypoxia or hypercapnia SNOMED: 136966353 Qualifiers: Qualified Codes: J96.00 - Acute respiratory failure, unspecified whether with hypoxia or hypercapnia (6) Severe sepsis ICD Codes: A41.9 - Sepsis, unspecified organism; R65.20 - Severe sepsis without septic shock SNOMED: 48585618 (7) UTI (urinary tract infection) ICD Codes: N39.0 - Urinary tract infection, site not specified SNOMED: 76305987 Qualifiers: Qualified Codes: N39.0 - Urinary tract infection, site not specified (8) NSTEMI (non-ST elevated myocardial infarction) ICD Codes: I21.4 - Non-ST elevation (NSTEMI) myocardial infarction SNOMED: 303023582 (9) Hypernatremia ICD Codes: E87.0 - Hyperosmolality and hypernatremia SNOMED: 80472518 (10) DM (11) Rhabdomyolysis ICD Codes: M62.82 - Rhabdomyolysis SNOMED: 840225604 Status: progressing Assessment/Plan hypernatremia improving resp insuff lethargic abx per id lyte abnormality dehydration improving sepsis nstemi resolved Subjective ROS Limited/Unobtainable: Yes Allergies: Coded Allergies: TERAZOSIN (Verified Allergy, Unknown, 10/27/17) Objective Last 24 Hour Vital Signs Date Time Temp Pulse Resp B/P (MAP) Pulse Ox O2 Delivery O2 Flow Rate FiO2 12/08/17 19:36 105 23 100 Nasal Cannula 2.0 28 12/08/17 19:25 Nasal Cannula 2.0 28 12/08/17 19:25 98 Nasal Cannula 2.0 28 12/08/17 19:25 95 28 99 Nasal Cannula 2.0 28 12/08/17 16:00 96 12/08/17 16:00 Nasal Cannula 2.0 12/08/17 16:00 99.0 99 20 150/82 (104) 96 12/08/17 12:00 Nasal Cannula 2.0 12/08/17 12:00 98.1 95 20 136/70 (92) 99 12/08/17 12:00 93 12/08/17 10:10 100 Nasal Cannula 2.0 28 12/08/17 10:10 Nasal Cannula 2.0 28 12/08/17 10:10 95 21 Nasal Cannula 2.0 28 12/08/17 09:05 146/74 12/08/17 08:00 Nasal Cannula 2.0 12/08/17 08:00 96 12/08/17 08:00 99.4 99 20 146/74 (98) 100 12/08/17 04:00 Nasal Cannula 2.0 12/08/17 04:00 98.5 96 20 139/68 (91) 98 12/08/17 04:00 107 12/08/17 03:57 105 24 100 Nasal Cannula 2.0 28 12/08/17 03:43 96 28 99 Nasal Cannula 2.0 28 12/08/17 00:00 98.7 99 20 140/65 (90) 98 12/08/17 00:00 Nasal Cannula 2.0 12/07/17 23:00 98.7 99 20 140/65 (90) 98 12/07/17 22:27 100.4 101 20 149/77 (101) 99 12/07/17 21:00 100.4 101 20 149/77 (101) 99 12/07/17 20:00 98 12/07/17 20:00 Nasal Cannula 2.0 Intake and Output 12/07/17 12/08/17 19:00 07:00 Intake Total 1625.314 ml 300 ml Output Total 780 ml 900 ml Balance 845.314 ml -600 ml Free Water 50 ml IV Total 1145.314 ml Tube Feeding 330 ml 300 ml Other 100 ml Output Urine Total 770 ml 900 ml Stool Total 10 ml # Bowel Movements 100 Laboratory Tests 12/08/17 05:10: White Blood Count 11.3H, Red Blood Count 3.56L, Hemoglobin 9.3L, Hematocrit 28.4L, Mean Corpuscular Volume 80, Mean Corpuscular Hemoglobin 26.0L, Mean Corpuscular Hemoglobin Concent 32.6, Red Cell Distribution Width 15.7H, Platelet Count 104L, Mean Platelet Volume 9.5, Neutrophils (%) (Auto) 71.5, Lymphocytes (%) (Auto) 12.4L, Monocytes (%) (Auto) 11.5H, Eosinophils (%) (Auto ) 2.7, Basophils (%) (Auto) 2.0, Sodium Level 149H, Potassium Level 3.8, Chloride Level 119H, Carbon Dioxide Level 19L, Anion Gap 11, Blood Urea Nitrogen 18, Creatinine 1.7H, Estimat Glomerular Filtration Rate , Glucose Level 146H, Calcium Level 8.0L, Phosphorus Level 3.3, Magnesium Level 2.1, Iron Level 54, Total Iron Binding Capacity 162L, Percent Iron Saturation 33, Unsaturated Iron Binding 108L, Ferritin 326, Total Bilirubin 0.5, Aspartate Amino Transf (AST/SGOT) 113H, Alanine Aminotransferase (ALT/SGPT) 185H, Alkaline Phosphatase 140H, Total Creatine Kinase 1230H, Troponin I 0.057H, C- Reactive Protein, Quantitative 11.0H, Pro-B-Type Natriuretic Peptide 1369H, Total Protein 6.4, Albumin 1.9L, Globulin 4.5, Albumin/Globulin Ratio 0.4L, Lipase 924H, Vitamin B12 Level 1877H, Folate 19.2, Random Vancomycin Level 11.5 Height (Feet): 5 Height (Inches): 5.00 Weight (Pounds): 172 General Appearance: lethargic, confused Cardiovascular: normal rate Respiratory/Chest: lungs clear Abdomen: soft Trish Matias MD Dec 08, 2017 19:39
[2017-12-08] MEDS: Dyna-Hex 2% Top Sol 2oz TOPIC SCH (20:00)
--- NOTE | 2017-12-08 20:43 | General Progress Note ---
Assessment/Plan Problem List: (1) Encephalopathy due to metabolic factor or toxin SNOMED: 330225012 Status: stable Assessment/Plan Seroquel prn dw staff Subjective Date patient seen: Dec 08, 2017 Neurologic/Psychiatric: Reports: anxiety, emotional problems Allergies: Coded Allergies: TERAZOSIN (Verified Allergy, Unknown, 10/27/17) Subjective agitated at times more alert and more interactive Objective Last 24 Hour Vital Signs Date Time Temp Pulse Resp B/P (MAP) Pulse Ox O2 Delivery O2 Flow Rate FiO2 12/08/17 19:37 101 23 Nasal Cannula 2.0 28 12/08/17 19:36 105 23 100 Nasal Cannula 2.0 28 12/08/17 19:25 Nasal Cannula 2.0 28 12/08/17 19:25 98 Nasal Cannula 2.0 28 12/08/17 19:25 95 28 99 Nasal Cannula 2.0 28 12/08/17 16:00 96 12/08/17 16:00 Nasal Cannula 2.0 12/08/17 16:00 99.0 99 20 150/82 (104) 96 12/08/17 12:00 Nasal Cannula 2.0 12/08/17 12:00 98.1 95 20 136/70 (92) 99 12/08/17 12:00 93 12/08/17 10:10 100 Nasal Cannula 2.0 12/08/17 10:10 Nasal Cannula 2.0 12/08/17 10:10 95 21 Nasal Cannula 2.0 12/08/17 09:05 146/74 12/08/17 08:00 Nasal Cannula 2.0 12/08/17 08:00 96 12/08/17 08:00 99.4 99 20 146/74 (98) 100 12/08/17 04:00 Nasal Cannula 2.0 12/08/17 04:00 98.5 96 20 139/68 (91) 98 12/08/17 04:00 107 12/08/17 03:57 105 24 100 Nasal Cannula 2.0 12/08/17 03:43 96 28 99 Nasal Cannula 2.0 28 12/08/17 00:00 98.7 99 20 140/65 (90) 98 12/08/17 00:00 Nasal Cannula 2.0 12/07/17 23:00 98.7 99 20 140/65 (90) 98 12/07/17 22:27 100.4 101 20 149/77 (101) 99 12/07/17 21:00 100.4 101 20 149/77 (101) 99 Intake and Output 12/07/17 12/08/17 19:00 07:00 Intake Total 1625.314 ml 300 ml Output Total 780 ml 900 ml Balance 845.314 ml -600 ml Free Water 50 ml IV Total 1145.314 ml Tube Feeding 330 ml 300 ml Other 100 ml Output Urine Total 770 ml 900 ml Stool Total 10 ml # Bowel Movements 100 Laboratory Tests 12/08/17 05:10: White Blood Count 11.3H, Red Blood Count 3.56L, Hemoglobin 9.3L, Hematocrit 28.4L, Mean Corpuscular Volume 80, Mean Corpuscular Hemoglobin 26.0L, Mean Corpuscular Hemoglobin Concent 32.6, Red Cell Distribution Width 15.7H, Platelet Count 104L, Mean Platelet Volume 9.5, Neutrophils (%) (Auto) 71.5, Lymphocytes (%) (Auto) 12.4L, Monocytes (%) (Auto) 11.5H, Eosinophils (%) (Auto ) 2.7, Basophils (%) (Auto) 2.0, Sodium Level 149H, Potassium Level 3.8, Chloride Level 119H, Carbon Dioxide Level 19L, Anion Gap 11, Blood Urea Nitrogen 18, Creatinine 1.7H, Estimat Glomerular Filtration Rate , Glucose Level 146H, Calcium Level 8.0L, Phosphorus Level 3.3, Magnesium Level 2.1, Iron Level 54, Total Iron Binding Capacity 162L, Percent Iron Saturation 33, Unsaturated Iron Binding 108L, Ferritin 326, Total Bilirubin 0.5, Aspartate Amino Transf (AST/SGOT) 113H, Alanine Aminotransferase (ALT/SGPT) 185H, Alkaline Phosphatase 140H, Total Creatine Kinase 1230H, Troponin I 0.057H, C- Reactive Protein, Quantitative 11.0H, Pro-B-Type Natriuretic Peptide 1369H, Total Protein 6.4, Albumin 1.9L, Globulin 4.5, Albumin/Globulin Ratio 0.4L, Lipase 924H, Vitamin B12 Level 1877H, Folate 19.2, Random Vancomycin Level 11.5 Height (Feet): 5 Height (Inches): 5.00 Weight (Pounds): 172 General Appearance: no apparent distress, alert Farhadi,Pantea MD Dec 08, 2017 20:43
--- NOTE | 2017-12-08 23:49 | Cardiology Progress Note ---
Assessment/Plan Assessment/Plan 1. Septic shock in combination with hypovolemic shock, serum Na stable at 149, continue IV fluid. Continue Midodrine. 2. Sinus tachycardia, persistent, most likely secondary to severe intravascular volume depletion, currently on appropriate fluid administration. 3. Slight elevation of troponin I level could be of a variety of etiologies in this patient, although [id number] myocardial infarction type 2 due to demand ischemia should be considered. Continue ASA, statins not suggested for now due to transaminitis . Subjective Subjective Sinus rhythm at rate of 95. Objective Last 24 Hour Vital Signs Date Time Temp Pulse Resp B/P (MAP) Pulse Ox O2 Delivery O2 Flow Rate FiO2 12/08/17 20:00 Nasal Cannula 2.0 12/08/17 20:00 102 12/08/17 19:37 101 23 Nasal Cannula 2.0 28 12/08/17 19:36 105 23 100 Nasal Cannula 2.0 28 12/08/17 19:25 Nasal Cannula 2.0 28 12/08/17 19:25 98 Nasal Cannula 2.0 28 12/08/17 19:25 95 28 99 Nasal Cannula 2.0 28 12/08/17 16:00 96 12/08/17 16:00 Nasal Cannula 2.0 12/08/17 16:00 99.0 99 20 150/82 (104) 96 12/08/17 12:00 Nasal Cannula 2.0 12/08/17 12:00 98.1 95 20 136/70 (92) 99 12/08/17 12:00 93 12/08/17 10:10 100 Nasal Cannula 2.0 12/08/17 10:10 Nasal Cannula 2.0 28 12/08/17 10:10 95 21 Nasal Cannula 2.0 28 12/08/17 09:05 146/74 12/08/17 08:00 Nasal Cannula 2.0 12/08/17 08:00 96 12/08/17 08:00 99.4 99 20 146/74 (98) 100 12/08/17 04:00 Nasal Cannula 2.0 12/08/17 04:00 98.5 96 20 139/68 (91) 98 12/08/17 04:00 107 12/08/17 03:57 105 24 100 Nasal Cannula 2.0 12/08/17 03:43 96 28 99 Nasal Cannula 2.0 28 12/08/17 00:00 98.7 99 20 140/65 (90) 98 12/08/17 00:00 Nasal Cannula 2.0 Intake and Output 12/07/17 12/08/17 19:00 07:00 Intake Total 1625.314 ml 300 ml Output Total 780 ml 900 ml Balance 845.314 ml -600 ml Free Water 50 ml IV Total 1145.314 ml Tube Feeding 330 ml 300 ml Other 100 ml Output Urine Total 770 ml 900 ml Stool Total 10 ml # Bowel Movements 100 2D Echo: FroM Oct 24:LVEF 65%, Mild LVH,Small Pericardial Eff.,Grade I LVDD, Mild AR Laboratory Tests Test 12/08/17 05:10 White Blood Count 11.3 K/UL (4.8-10.8) H Red Blood Count 3.56 M/UL (4.70-6.10) L Hemoglobin 9.3 G/DL (14.2-18.0) L Hematocrit 28.4 % (42.0-52.0) L Mean Corpuscular Volume 80 FL (80-99) Mean Corpuscular Hemoglobin 26.0 PG (27.0-31.0) L Mean Corpuscular Hemoglobin Concent 32.6 G/DL (32.0-36.0) Red Cell Distribution Width 15.7 % (11.6-14.8) H Platelet Count 104 K/UL (150-450) L Mean Platelet Volume 9.5 FL (6.5-10.1) Neutrophils (%) (Auto) 71.5 % (45.0-75.0) Lymphocytes (%) (Auto) 12.4 % (20.0-45.0) L Monocytes (%) (Auto) 11.5 % (1.0-10.0) H Eosinophils (%) (Auto) 2.7 % (0.0-3.0) Basophils (%) (Auto) 2.0 % (0.0-2.0) Sodium Level 149 MMOL/L (136-145) H Potassium Level 3.8 MMOL/L (3.5-5.1) Chloride Level 119 MMOL/L (98-107) H Carbon Dioxide Level 19 MMOL/L (21-32) L Anion Gap 11 mmol/L (5-15) Blood Urea Nitrogen 18 mg/dL (7-18) Creatinine 1.7 MG/DL (0.55-1.30) H Estimat Glomerular Filtration Rate mL/min (>60) Glucose Level 146 MG/DL (74-106) H Calcium Level 8.0 MG/DL (8.5-10.1) L Phosphorus Level 3.3 MG/DL (2.5-4.9) Magnesium Level 2.1 MG/DL (1.8-2.4) Iron Level 54 ug/dL (50-175) Total Iron Binding Capacity 162 ug/dL (250-450) L Percent Iron Saturation 33 % (15-50) Unsaturated Iron Binding 108 ug/dL (112-346) L Ferritin 326 NG/ML (8-388) Total Bilirubin 0.5 MG/DL (0.2-1.0) Aspartate Amino Transf (AST/SGOT) 113 U/L (15-37) H Alanine Aminotransferase (ALT/SGPT) 185 U/L (12-78) H Alkaline Phosphatase 140 U/L (46-116) H Total Creatine Kinase 1230 U/L (26-308) H Troponin I 0.057 ng/mL (0.000-0.056) C-Reactive Protein, Quantitative 11.0 mg/dL (0.00-0.90) H Pro-B-Type Natriuretic Peptide 1369 pg/mL (0-125) H Total Protein 6.4 G/DL (6.4-8.2) Albumin 1.9 G/DL (3.4-5.0) L Globulin 4.5 g/dL Albumin/Globulin Ratio 0.4 (1.0-2.7) L Lipase 924 U/L (73-393) H Vitamin B12 Level 1877 PG/ML (193-986) H Folate 19.2 NG/ML (8.6-58.9) Random Vancomycin Level 11.5 ug/mL Objective HEENT: Atraumatic and normocephalic. Anicteric. Pupils are equal, round, and reactive to light and accommodation. Dry mucosal membranes. NECK: JVP less than 5 cm. No carotid bruit. Carotid upstrokes 2+ bilaterally. CARDIOVASCULAR: Normal S1, S2. Regular rhythm. Cannot appreciate any murmurs, gallops, or rubs. LUNGS: Diminished breath sounds in both lungs. ABDOMEN: Soft, nontender, and nondistended. Diminished bowel sounds. Presence of G-tube. No hepatosplenomegaly. EXTREMITIES: Contraction and pressure protection. No edema, clubbing, or cyanosis. Luke Estrada MD Dec 08, 2017 23:49
[2017-12-09] VITALS: BP 119/57
[2017-12-09 04:00] VITALS: BP 138/70
[2017-12-09] MEDS: Piperacillin/Tazobactam 3.375 GM in NS 110 ML IVPB SCH ×3 (06:27→22:38)
[2017-12-09] MEDS: NovoLOG Insulin Flexpen SUBQ SCH ×4 (06:28→18:00)
[2017-12-09 08:00] VITALS: BP 145/71
[2017-12-09 08:26] LABS: HEMATOCRIT 23.4 % (42.0-52.0); HEMOGLOBIN 7.6 G/DL (14.2-18.0); MEAN CORPUSCULAR VOLUME 80 FL (80-99); PLATELET COUNT 220 K/UL (150-450); RED BLOOD COUNT 2.95 M/UL (4.70-6.10); RED CELL DISTRIBUTION WIDTH 16.1 % (11.6-14.8); WHITE BLOOD COUNT 8.8 K/UL (4.8-10.8)
[2017-12-09] MEDS: Nitroglycerin Patch 0.4mg TDERMAL SCH (08:32)
[2017-12-09] MEDS: Aspirin Baby 81mg NG SCH (08:32)
[2017-12-09] MEDS: Pantoprazole Inj IVP SCH (08:32)
[2017-12-09] MEDS: Sucralfate 1gm tab GT SCH ×3 (08:33→18:02)
[2017-12-09] MEDS: Heparin 5000 units/ml inj SUBQ SCH ×2 (08:34→22:40)
[2017-12-09 08:35] LABS: ANION GAP 9 mmol/L (5-15); BLOOD UREA NITROGEN 18 mg/dL (7-18); CALCIUM 7.9 MG/DL (8.5-10.1); CARBON DIOXIDE 21 MMOL/L (21-32); CHLORIDE 118 MMOL/L (98-107); CREATININE 1.6 MG/DL (0.55-1.30); POTASSIUM 3.9 MMOL/L (3.5-5.1); SODIUM 148 MMOL/L (136-145)
--- NOTE | 2017-12-09 08:46 | General Progress Note ---
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 --> Anemia w/u has been reviewed. Will trend CBC daily as needed --> No evidence of hemolysis noted, peripheral smear reviewed --> Hgb goal >7. Transfuse as needed prn basis # Leukocytosis. Likely related to underlying infection vs reactive process. --> Imaging has been reviewed. Shows Stable cardiomegaly. Slight haziness of the pulmonary vascularity suggests mild interstitial edema. Unchanged elevation of the left hemidiaphragm. --> Blood cx and urine cx have been reviewed --> on abx, empiric rx # Thrombocytopenia. Potential causes multifactorial, now better --> Hep panel negative and HIV is negative --> abd us shows no significant cirrhosis or hsm --> Abx and other meds have been reviewed --> consider bmbx if in future does not improve --> Ok for ppx if heparin >50k with heparin sq --> currently appears to have stabilized # Constipation. --> ordered KUB evaluate abdominal distention - No acute process. Findings reviewed --> electrolyte correction --> prevacid GT --> bowel regime # Sepsis. # Malnutrition. --> peg GREATLY APPRECIATE CONSULTATION. Subjective Constitutional: Denies: no symptoms, chills, diaphoresis, fever, malaise, weakness, other HEENT: Denies: no symptoms, eye pain, blurred vision, tearing, double vision, ear pain, ear discharge, nose pain, nose congestion, throat pain, throat swelling, mouth pain, mouth swelling, other Cardiovascular: Denies: no symptoms, chest pain, edema, irregular heart rate, lightheadedness, palpitations, syncope, other Respiratory: Denies: no symptoms, cough, orthopnea, shortness of breath, SOB with excertion, SOB at rest, sputum, stridor, wheezing, other Gastrointestinal/Abdominal: Denies: no symptoms, abdomen distended, abdominal pain, black stools, tarry stools, blood in stool, constipated, diarrhea, difficulty swallowing, nausea, poor appetite, poor fluid intake, rectal bleeding , vomiting, other Genitourinary: Denies: no symptoms, burning, discharge, frequency, flank pain, hematuria, incontinence, pain, urgency, other Endocrine: Denies: no symptoms, excessive sweating, flushing, intolerance to cold, intolerance to heat, increased hunger, increased thirst, increased urine, unexplained weight gain, unexplained weight loss, other Hematologic/Lymphatic: Denies: no symptoms, anemia, easy bleeding, easy bruising, other Allergies: Coded Allergies: TERAZOSIN (Verified Allergy, Unknown, 10/27/17) Subjective resting comfortably. H/H stable. Objective Last 24 Hour Vital Signs Date Time Temp Pulse Resp B/P (MAP) Pulse Ox O2 Delivery O2 Flow Rate FiO2 12/09/17 08:32 145/71 12/09/17 08:00 98.9 97 20 145/71 (95) 92 12/09/17 04:00 99.3 96 24 138/70 (92) 100 12/09/17 04:00 96 12/09/17 04:00 Nasal Cannula 2.0 12/09/17 00:00 99.0 100 24 119/57 (77) 100 12/09/17 00:00 Nasal Cannula 2.0 12/09/17 00:00 96 12/08/17 20:00 Nasal Cannula 2.0 12/08/17 20:00 102 12/08/17 19:37 101 23 Nasal Cannula 2.0 28 12/08/17 19:36 105 23 100 Nasal Cannula 2.0 28 12/08/17 19:25 Nasal Cannula 2.0 28 12/08/17 19:25 98 Nasal Cannula 2.0 28 12/08/17 19:25 95 28 99 Nasal Cannula 2.0 28 12/08/17 16:00 96 12/08/17 16:00 Nasal Cannula 2.0 12/08/17 16:00 99.0 99 20 150/82 (104) 96 12/08/17 12:00 Nasal Cannula 2.0 12/08/17 12:00 98.1 95 20 136/70 (92) 99 12/08/17 12:00 93 12/08/17 10:10 100 Nasal Cannula 2.0 28 12/08/17 10:10 Nasal Cannula 2.0 28 12/08/17 10:10 95 21 Nasal Cannula 2.0 28 12/08/17 09:05 146/74 Intake and Output 12/08/17 12/09/17 18:59 06:59 Intake Total 300 ml Output Total 650 ml 600 ml Balance -350 ml -600 ml Tube Feeding 300 ml Output Urine Total 650 ml 600 ml # Bowel Movements 100 Laboratory Tests 12/09/17 07:00: White Blood Count 8.8, Red Blood Count 2.95L, Hemoglobin 7.6L, Hematocrit 23.4L , Mean Corpuscular Volume 80, Mean Corpuscular Hemoglobin 25.9L, Mean Corpuscular Hemoglobin Concent 32.6, Red Cell Distribution Width 16.1H, Platelet Count 220#, Mean Platelet Volume 7.9, Neutrophils (%) (Auto) , Lymphocytes (%) (Auto) , Monocytes (%) (Auto) , Eosinophils (%) (Auto) , Basophils (%) (Auto) , Neutrophils % (Manual) [Pending], Lymphocytes % (Manual) [Pending], Platelet Estimate [Pending], Platelet Morphology [Pending], Sodium Level 148H, Potassium Level 3.9, Chloride Level 118H, Carbon Dioxide Level 21, Anion Gap 9, Blood Urea Nitrogen 18, Creatinine 1.6H, Estimat Glomerular Filtration Rate , Glucose Level 126H, Calcium Level 7.9L Height (Feet): 5 Height (Inches): 5.00 Weight (Pounds): 0 General Appearance: no apparent distress EENT: TMs normal Neck: supple Cardiovascular: regular rhythm Respiratory/Chest: chest wall non-tender Abdomen: soft Extremities: non-tender Edema: 1+ Leg (L), 1+ Leg (R) Edema: mild edema Neurologic: alert Skin: warm/dry Objective peg+++ Beny Dalton MD Dec 09, 2017 08:46
[2017-12-09] MEDS: Levemir Flexpen SUBQ SCH (08:56)
[2017-12-09 12:00] VITALS: BP 140/69
[2017-12-09] MEDS: D5W w/KCl 20mEq 1,000 ML IV SCH (12:30)
--- NOTE | 2017-12-09 15:02 | Nephrology Progress Note ---
Assessment/Plan Problem List: (1) Renal failure (ARF), acute on chronic (2) Respiratory failure (3) Hypernatremia (4) Rhabdomyolysis (5) DM Assessment Acute respiratory failure- now extubated Acute Renal failure- Severe Dehydration PEG Sepsis / UTI / Pneumonia Hypotension- Septic Shock High Lipase Rhabdo- High CPK Elevated Troponin Dementia Plan DC midodrine- consider transfusion change IV rate- K supplement as needed check am vanco levels monitor CK post extubation care Gastric support Antibiotics Monitor renal parameters Per orders Subjective ROS Limited/Unobtainable: No Constitutional: Reports: malaise Objective Objective Last 24 Hour Vital Signs Date Time Temp Pulse Resp B/P (MAP) Pulse Ox O2 Delivery O2 Flow Rate FiO2 12/09/17 12:00 98.1 91 16 140/69 (92) 99 12/09/17 11:51 94 12/09/17 08:32 145/71 12/09/17 08:00 98.9 97 20 145/71 (95) 92 12/09/17 08:00 Nasal Cannula 2.0 12/09/17 07:47 95 12/09/17 04:00 99.3 96 24 138/70 (92) 100 12/09/17 04:00 96 12/09/17 04:00 Nasal Cannula 2.0 12/09/17 00:00 99.0 100 24 119/57 (77) 100 12/09/17 00:00 Nasal Cannula 2.0 12/09/17 00:00 96 12/08/17 20:00 Nasal Cannula 2.0 12/08/17 20:00 102 12/08/17 19:37 101 23 Nasal Cannula 2.0 28 12/08/17 19:36 105 23 100 Nasal Cannula 2.0 28 12/08/17 19:25 Nasal Cannula 2.0 28 12/08/17 19:25 98 Nasal Cannula 2.0 28 12/08/17 19:25 95 28 99 Nasal Cannula 2.0 28 12/08/17 16:00 96 12/08/17 16:00 Nasal Cannula 2.0 12/08/17 16:00 99.0 99 20 150/82 (104) 96 Intake and Output 12/08/17 12/09/17 19:00 07:00 Intake Total 270 ml Output Total 650 ml 600 ml Balance -380 ml -600 ml Tube Feeding 270 ml Output Urine Total 650 ml 600 ml # Bowel Movements 100 Laboratory Tests 12/09/17 07:00: White Blood Count 8.8, Red Blood Count 2.95L, Hemoglobin 7.6L, Hematocrit 23.4L , Mean Corpuscular Volume 80, Mean Corpuscular Hemoglobin 25.9L, Mean Corpuscular Hemoglobin Concent 32.6, Red Cell Distribution Width 16.1H, Platelet Count 220#, Mean Platelet Volume 7.9, Neutrophils (%) (Auto) , Lymphocytes (%) (Auto) , Monocytes (%) (Auto) , Eosinophils (%) (Auto) , Basophils (%) (Auto) , Differential Total Cells Counted 100, Neutrophils % ( Manual) 77H, Lymphocytes % (Manual) 17L, Monocytes % (Manual) 4, Eosinophils % ( Manual) 0, Basophils % (Manual) 1, Myelocytes % 1H, Band Neutrophils 0, Platelet Estimate Adequate, Platelet Morphology Normal, Polychromasia 1+, Anisocytosis 1+, Microcytosis 2+, Sodium Level 148H, Potassium Level 3.9, Chloride Level 118H, Carbon Dioxide Level 21, Anion Gap 9, Blood Urea Nitrogen 18, Creatinine 1.6H, Estimat Glomerular Filtration Rate , Glucose Level 126H, Calcium Level 7.9L Height (Feet): 5 Height (Inches): 5.00 Weight (Pounds): 0 General Appearance: no apparent distress Cardiovascular: tachycardia Respiratory/Chest: decreased breath sounds Abdomen: distended Objective no other change Randolph Fernandes MD Dec 09, 2017 15:02
--- NOTE | 2017-12-09 15:44 | Cardiology Progress Note ---
Assessment/Plan Assessment/Plan 1. Septic shock in combination with hypovolemic shock, serum Na down to 148, continue IV fluid. Continue Midodrine. 2. Sinus tachycardia, improved, most likely secondary to severe intravascular volume depletion, currently on appropriate fluid administration. 3. Slight elevation of troponin I level could be of a variety of etiologies in this patient, although [id number] myocardial infarction type 2 due to demand ischemia should be considered. Continue ASA, statins not suggested for now due to transaminitis . Subjective Subjective Sinus rhythm at rate of 91. Objective Last 24 Hour Vital Signs Date Time Temp Pulse Resp B/P (MAP) Pulse Ox O2 Delivery O2 Flow Rate FiO2 12/09/17 12:00 98.1 91 16 140/69 (92) 99 12/09/17 11:51 94 12/09/17 08:32 145/71 12/09/17 08:00 98.9 97 20 145/71 (95) 92 12/09/17 08:00 Nasal Cannula 2.0 12/09/17 07:47 95 12/09/17 04:00 99.3 96 24 138/70 (92) 100 12/09/17 04:00 96 12/09/17 04:00 Nasal Cannula 2.0 12/09/17 00:00 99.0 100 24 119/57 (77) 100 12/09/17 00:00 Nasal Cannula 2.0 12/09/17 00:00 96 12/08/17 20:00 Nasal Cannula 2.0 12/08/17 20:00 102 12/08/17 19:37 101 23 Nasal Cannula 2.0 28 12/08/17 19:36 105 23 100 Nasal Cannula 2.0 28 12/08/17 19:25 Nasal Cannula 2.0 28 12/08/17 19:25 98 Nasal Cannula 2.0 28 12/08/17 19:25 95 28 99 Nasal Cannula 2.0 28 12/08/17 16:00 96 12/08/17 16:00 Nasal Cannula 2.0 12/08/17 16:00 99.0 99 20 150/82 (104) 96 Intake and Output 12/08/17 12/09/17 18:59 06:59 Intake Total 300 ml Output Total 650 ml 600 ml Balance -350 ml -600 ml Tube Feeding 300 ml Output Urine Total 650 ml 600 ml # Bowel Movements 100 2D Echo: From Sep 24:LVEF 65%, Mild LVH,Small Pericardial Eff.,Grade I LVDD, Mild AR Laboratory Tests Test 12/09/17 07:00 White Blood Count 8.8 K/UL (4.8-10.8) Red Blood Count 2.95 M/UL (4.70-6.10) L Hemoglobin 7.6 G/DL (14.2-18.0) L Hematocrit 23.4 % (42.0-52.0) L Mean Corpuscular Volume 80 FL (80-99) Mean Corpuscular Hemoglobin 25.9 PG (27.0-31.0) L Mean Corpuscular Hemoglobin Concent 32.6 G/DL (32.0-36.0) Red Cell Distribution Width 16.1 % (11.6-14.8) H Platelet Count 220 K/UL (150-450) # Mean Platelet Volume 7.9 FL (6.5-10.1) Neutrophils (%) (Auto) % (45.0-75.0) Lymphocytes (%) (Auto) % (20.0-45.0) Monocytes (%) (Auto) % (1.0-10.0) Eosinophils (%) (Auto) % (0.0-3.0) Basophils (%) (Auto) % (0.0-2.0) Differential Total Cells Counted 100 Neutrophils % (Manual) 77 % (45-75) H Lymphocytes % (Manual) 17 % (20-45) L Monocytes % (Manual) 4 % (1-10) Eosinophils % (Manual) 0 % (0-3) Basophils % (Manual) 1 % (0-2) Myelocytes % 1 % (0-0) H Band Neutrophils 0 % (0-8) Platelet Estimate Adequate Platelet Morphology Normal Polychromasia 1+ Anisocytosis 1+ Microcytosis 2+ Sodium Level 148 MMOL/L (136-145) H Potassium Level 3.9 MMOL/L (3.5-5.1) Chloride Level 118 MMOL/L (98-107) H Carbon Dioxide Level 21 MMOL/L (21-32) Anion Gap 9 mmol/L (5-15) Blood Urea Nitrogen 18 mg/dL (7-18) Creatinine 1.6 MG/DL (0.55-1.30) H Estimat Glomerular Filtration Rate mL/min (>60) Glucose Level 126 MG/DL (74-106) H Calcium Level 7.9 MG/DL (8.5-10.1) L Objective HEENT: Atraumatic and normocephalic. Anicteric. Pupils are equal, round, and reactive to light and accommodation. Dry mucosal membranes. NECK: JVP less than 5 cm. No carotid bruit. Carotid upstrokes 2+ bilaterally. CARDIOVASCULAR: Normal S1, S2. Regular rhythm. Cannot appreciate any murmurs, gallops, or rubs. LUNGS: Diminished breath sounds in both lungs. ABDOMEN: Soft, nontender, and nondistended. Diminished bowel sounds. Presence of G-tube. No hepatosplenomegaly. EXTREMITIES: Contraction and pressure protection. No edema, clubbing, or cyanosis. Luke Estrada MD Dec 09, 2017 15:44
[2017-12-09 16:00] VITALS: BP 113/64
--- NOTE | 2017-12-09 17:26 | General Progress Note ---
Assessment/Plan Assessment/Plan Assessment (1) Malnutrition ICD Codes: E46 - Unspecified protein-calorie malnutrition SNOMED: 08899049 (2) Pancreatitis ICD Codes: K85.90 - Acute pancreatitis without necrosis or infection, unspecified SNOMED: 78576926 Qualifiers: Qualified Codes: K85.90 - Acute pancreatitis without necrosis or infection, unspecified (3) Constipation ICD Codes: K59.00 - Constipation, unspecified SNOMED: 78259682 (4) PEG (percutaneous endoscopic gastrostomy) status ICD Codes: Z93.1 - Gastrostomy status SNOMED: 087974441, 146168064 (5) DM (6) Severe sepsis ICD Codes: A41.9 - Sepsis, unspecified organism; R65.20 - Severe sepsis without septic shock SNOMED: 66225929 Status: stable (7) anemia Assessment/Plan KUB reviewed for abdominal distention >> no acute findings transaminitis >> hep panel negative defer GI proceduers prn transfusions on GTF ,renal 30 cc Imodium prn rectal tube fu nephrology fu labs ppi BID trend LFTs Subjective Allergies: Coded Allergies: TERAZOSIN (Verified Allergy, Unknown, 10/27/17) Subjective above noted non verbal labs reviewed Objective Last 24 Hour Vital Signs Date Time Temp Pulse Resp B/P (MAP) Pulse Ox O2 Delivery O2 Flow Rate FiO2 12/09/17 16:00 97.2 89 16 113/64 (80) 99 12/09/17 15:42 90 12/09/17 12:00 98.1 91 16 140/69 (92) 99 12/09/17 12:00 Nasal Cannula 2.0 12/09/17 11:51 94 12/09/17 08:32 145/71 12/09/17 08:00 98.9 97 20 145/71 (95) 92 12/09/17 08:00 Nasal Cannula 2.0 12/09/17 07:47 95 12/09/17 04:00 99.3 96 24 138/70 (92) 100 12/09/17 04:00 96 12/09/17 04:00 Nasal Cannula 2.0 12/09/17 00:00 99.0 100 24 119/57 (77) 100 12/09/17 00:00 Nasal Cannula 2.0 12/09/17 00:00 96 11/2/18 20:00 Nasal Cannula 2.0 12/08/17 20:00 102 12/08/17 19:37 101 23 Nasal Cannula 2.0 28 12/08/17 19:36 105 23 100 Nasal Cannula 2.0 28 12/08/17 19:25 Nasal Cannula 2.0 28 12/08/17 19:25 98 Nasal Cannula 2.0 28 12/08/17 19:25 95 28 99 Nasal Cannula 2.0 28 Intake and Output 12/08/17 12/09/17 19:00 07:00 Intake Total 270 ml Output Total 650 ml 600 ml Balance -380 ml -600 ml Tube Feeding 270 ml Output Urine Total 650 ml 600 ml # Bowel Movements 100 Laboratory Tests 12/09/17 07:00: White Blood Count 8.8, Red Blood Count 2.95L, Hemoglobin 7.6L, Hematocrit 23.4L , Mean Corpuscular Volume 80, Mean Corpuscular Hemoglobin 25.9L, Mean Corpuscular Hemoglobin Concent 32.6, Red Cell Distribution Width 16.1H, Platelet Count 220#, Mean Platelet Volume 7.9, Neutrophils (%) (Auto) , Lymphocytes (%) (Auto) , Monocytes (%) (Auto) , Eosinophils (%) (Auto) , Basophils (%) (Auto) , Differential Total Cells Counted 100, Neutrophils % ( Manual) 77H, Lymphocytes % (Manual) 17L, Monocytes % (Manual) 4, Eosinophils % ( Manual) 0, Basophils % (Manual) 1, Myelocytes % 1H, Band Neutrophils 0, Platelet Estimate Adequate, Platelet Morphology Normal, Polychromasia 1+, Anisocytosis 1+, Microcytosis 2+, Sodium Level 148H, Potassium Level 3.9, Chloride Level 118H, Carbon Dioxide Level 21, Anion Gap 9, Blood Urea Nitrogen 18, Creatinine 1.6H, Estimat Glomerular Filtration Rate , Glucose Level 126H, Calcium Level 7.9L Height (Feet): 5 Height (Inches): 5.00 Weight (Pounds): 0 Objective AA man NCAT supple CTA RRR abd soft , mildly distended, (+) GT edema all 4 extremities Sameer Don MD Dec 09, 2017 17:26
--- NOTE | 2017-12-09 19:30 | General Progress Note ---
Assessment/Plan Problem List: (1) Encephalopathy due to metabolic factor or toxin SNOMED: 320357387 Status: stable Assessment/Plan Seroquel prn dw staff Subjective Date patient seen: Dec 09, 2017 Neurologic/Psychiatric: Reports: anxiety, depressed Allergies: Coded Allergies: TERAZOSIN (Verified Allergy, Unknown, 10/27/17) Subjective agitated at times more alert and more interactive the pt is the same Objective Last 24 Hour Vital Signs Date Time Temp Pulse Resp B/P (MAP) Pulse Ox O2 Delivery O2 Flow Rate FiO2 12/09/17 16:00 97.2 89 16 113/64 (80) 99 12/09/17 15:42 90 12/09/17 12:00 98.1 91 16 140/69 (92) 99 12/09/17 12:00 Nasal Cannula 2.0 12/09/17 11:51 94 12/09/17 08:32 145/71 12/09/17 08:00 98.9 97 20 145/71 (95) 92 12/09/17 08:00 Nasal Cannula 2.0 12/09/17 07:47 95 12/09/17 04:00 99.3 96 24 138/70 (92) 100 12/09/17 04:00 96 12/09/17 04:00 Nasal Cannula 2.0 12/09/17 00:00 99.0 100 24 119/57 (77) 100 12/09/17 00:00 Nasal Cannula 2.0 12/09/17 00:00 96 12/08/17 20:00 Nasal Cannula 2.0 12/08/17 20:00 102 12/08/17 19:37 101 23 Nasal Cannula 2.0 28 12/08/17 19:36 105 23 100 Nasal Cannula 2.0 28 Intake and Output 12/08/17 12/09/17 19:00 07:00 Intake Total 270 ml Output Total 650 ml 600 ml Balance -380 ml -600 ml Tube Feeding 270 ml Output Urine Total 650 ml 600 ml # Bowel Movements 100 Laboratory Tests 12/09/17 07:00: White Blood Count 8.8, Red Blood Count 2.95L, Hemoglobin 7.6L, Hematocrit 23.4L , Mean Corpuscular Volume 80, Mean Corpuscular Hemoglobin 25.9L, Mean Corpuscular Hemoglobin Concent 32.6, Red Cell Distribution Width 16.1H, Platelet Count 220#, Mean Platelet Volume 7.9, Neutrophils (%) (Auto) , Lymphocytes (%) (Auto) , Monocytes (%) (Auto) , Eosinophils (%) (Auto) , Basophils (%) (Auto) , Differential Total Cells Counted 100, Neutrophils % ( Manual) 77H, Lymphocytes % (Manual) 17L, Monocytes % (Manual) 4, Eosinophils % ( Manual) 0, Basophils % (Manual) 1, Myelocytes % 1H, Band Neutrophils 0, Platelet Estimate Adequate, Platelet Morphology Normal, Polychromasia 1+, Anisocytosis 1+, Microcytosis 2+, Sodium Level 148H, Potassium Level 3.9, Chloride Level 118H, Carbon Dioxide Level 21, Anion Gap 9, Blood Urea Nitrogen 18, Creatinine 1.6H, Estimat Glomerular Filtration Rate , Glucose Level 126H, Calcium Level 7.9L Height (Feet): 5 Height (Inches): 5.00 Weight (Pounds): 0 General Appearance: no apparent distress, alert, confused Lauren Santoyo MD Dec 09, 2017 19:30
--- NOTE | 2017-12-09 19:54 | Pulmonology Progress Note ---
Assessment/Plan Problems: (1) Encephalopathy due to metabolic factor or toxin (2) Sacral decubitus ulcer (3) UTI (urinary tract infection) (4) Pneumonia (5) Renal failure (ARF), acute on chronic (6) Rhabdomyolysis (7) DM (8) Hypernatremia (9) NSTEMI (non-ST elevated myocardial infarction) (10) Severe sepsis (11) Respiratory failure (12) Pancreatitis (13) Malnutrition (14) Constipation Assessment/Plan Optimize pulmonary hygiene/mobilize as tolerated Titrate down FiO2 to keep SaO2 > 92% PRN HHN's Abx per ID (zosyn) per ID Off Midodrine Monitor volumes and electrolytes, mIVF TF's DVT Px: Hep SQ Glycemic control Subjective Allergies: Coded Allergies: TERAZOSIN (Verified Allergy, Unknown, 10/27/17) Subjective AFVSS, stable on 2L, Hb 7.6 + cough + congestion Objective Last 24 Hour Vital Signs Date Time Temp Pulse Resp B/P (MAP) Pulse Ox O2 Delivery O2 Flow Rate FiO2 12/09/17 16:00 Nasal Cannula 2.0 12/09/17 16:00 97.2 89 16 113/64 (80) 99 12/09/17 15:42 90 12/09/17 12:00 98.1 91 16 140/69 (92) 99 12/09/17 12:00 Nasal Cannula 2.0 12/09/17 11:51 94 12/09/17 08:32 145/71 12/09/17 08:00 98.9 97 20 145/71 (95) 92 12/09/17 08:00 Nasal Cannula 2.0 12/09/17 07:47 95 12/09/17 04:00 99.3 96 24 138/70 (92) 100 12/09/17 04:00 96 12/09/17 04:00 Nasal Cannula 2.0 12/09/17 00:00 99.0 100 24 119/57 (77) 100 12/09/17 00:00 Nasal Cannula 2.0 12/09/17 00:00 96 12/08/17 20:00 Nasal Cannula 2.0 12/08/17 20:00 102 Intake and Output 12/08/17 12/09/17 19:00 07:00 Intake Total 270 ml Output Total 650 ml 600 ml Balance -380 ml -600 ml Tube Feeding 270 ml Output Urine Total 650 ml 600 ml # Bowel Movements 100 General Appearance: cachetic HEENT: normocephalic, atraumatic, anicteric, mucous membranes moist Respiratory/Chest: chest wall non-tender, rhonchi Cardiovascular: normal peripheral pulses, normal rate, regular rhythm Abdomen: normal bowel sounds, soft, non tender, no organomegaly, non distended , no mass, other - GT Extremities: no cyanosis, no clubbing, no edema Laboratory Tests 12/09/17 07:00: White Blood Count 8.8, Red Blood Count 2.95L, Hemoglobin 7.6L, Hematocrit 23.4L , Mean Corpuscular Volume 80, Mean Corpuscular Hemoglobin 25.9L, Mean Corpuscular Hemoglobin Concent 32.6, Red Cell Distribution Width 16.1H, Platelet Count 220#, Mean Platelet Volume 7.9, Neutrophils (%) (Auto) , Lymphocytes (%) (Auto) , Monocytes (%) (Auto) , Eosinophils (%) (Auto) , Basophils (%) (Auto) , Differential Total Cells Counted 100, Neutrophils % ( Manual) 77H, Lymphocytes % (Manual) 17L, Monocytes % (Manual) 4, Eosinophils % ( Manual) 0, Basophils % (Manual) 1, Myelocytes % 1H, Band Neutrophils 0, Platelet Estimate Adequate, Platelet Morphology Normal, Polychromasia 1+, Anisocytosis 1+, Microcytosis 2+, Sodium Level 148H, Potassium Level 3.9, Chloride Level 118H, Carbon Dioxide Level 21, Anion Gap 9, Blood Urea Nitrogen 18, Creatinine 1.6H, Estimat Glomerular Filtration Rate , Glucose Level 126H, Calcium Level 7.9L Current Medications Medications (Trade) Dose Ordered Sig/Ruthie Route PRN Reason Start Time Stop Time Status Last Admin Dose Admin Albuterol/ Ipratropium (Albuterol/ Ipratropium) 3 ml Q4H PRN HHN Shortness of Breath 12/07/17 23:30 12/10/17 15:20 12/08/17 19:23 Aspirin (ASA) 162 mg DAILY NG 12/08/17 09:00 01/01/18 08:59 12/09/17 08:32 Atorvastatin Calcium (Lipitor) 40 mg BEDTIME ORAL 12/09/17 21:00 01/08/18 20:59 Chlorhexidine Gluconate (Rachael-Hex 2%) 1 applic DAILY@2000 TOPIC 12/08/17 20:00 01/03/18 19:59 12/08/17 20:00 Clonidine HCl (Catapres Tab) 0.1 mg Q4H PRN ORAL BLOOD PRESSURE 12/07/17 21:15 01/06/18 21:14 Dextrose (Dextrose 50%) 25 ml Q30M PRN IV Hypoglycemia 12/07/17 20:30 01/03/18 06:59 Dextrose (Dextrose 50%) 50 ml Q30M PRN IV Hypoglycemia 12/07/17 20:30 01/03/18 06:59 Dextrose/ Electrolytes 1,000 ml @ 50 mls/hr Q20H IV 12/07/17 20:30 01/03/18 10:46 12/07/17 21:31 Heparin Sodium (Porcine) (Heparin 5000 units/ml) 5,000 units EVERY 12 HOURS SUBQ 12/07/17 21:00 12/31/17 20:59 12/08/17 20:59 Insulin Aspart (NovoLOG) EVERY 6 HOURS SUBQ 12/08/17 00:00 01/01/18 20:59 12/09/17 12:05 Insulin Detemir (Levemir) 15 units Q24H SUBQ 12/08/17 09:00 01/07/18 08:59 12/09/17 08:56 Lansoprazole (Prevacid) 30 mg DAILY GT 12/10/17 09:00 01/09/18 08:59 Loperamide HCl (Imodium) 2 mg Q6H PRN NG Diarrhea 12/07/17 20:30 01/02/18 08:29 Nitroglycerin (Ntg) 1 patch Q24H TDERMAL 12/08/17 09:00 01/01/18 08:59 12/09/17 08:32 Piperacillin Sod/ Tazobactam Sod 3.375 gm/Sodium Chloride 110 ml @ 27.5 mls/hr Q8HR IVPB 12/07/17 22:00 12/12/17 08:59 12/09/17 14:44 Quetiapine Fumarate (SEROquel) 12.5 mg Q4H PRN GT agitation 12/07/17 20:45 01/03/18 20:29 Sucralfate (Carafate) 1 gm BID GT 12/09/17 18:00 12/31/17 17:59 12/09/17 18:02 Fantasma Nielsen MD Dec 09, 2017 19:54
[2017-12-09 20:00] VITALS: BP 140/80
[2017-12-09] MEDS: Dyna-Hex 2% Top Sol 2oz TOPIC SCH (22:39)
[2017-12-09] MEDS: Atorvastatin 20mg tab ORAL SCH (22:39)
[2017-12-10] VITALS: BP 155/75
[2017-12-10] MEDS: NovoLOG Insulin Flexpen SUBQ SCH ×5 (00:59→23:20)
[2017-12-10 04:00] VITALS: BP 146/78
[2017-12-10] MEDS ORDERED: Piperacillin/Tazobactam 3.375 GM in NS 110 ML IVPB SCH (04:00)
[2017-12-10] MEDS: Piperacillin/Tazobactam 3.375 GM in NS 110 ML IVPB SCH ×2 (06:06→13:05)
[2017-12-10 08:00] VITALS: BP 147/72
[2017-12-10] MEDS: D5W w/KCl 20mEq 1,000 ML IV SCH ×2 (08:30→21:03)
[2017-12-10 08:32] LABS: HEMATOCRIT 22.4 % (42.0-52.0); HEMOGLOBIN 7.2 G/DL (14.2-18.0); MEAN CORPUSCULAR VOLUME 80 FL (80-99); PLATELET COUNT 261 K/UL (150-450); RED BLOOD COUNT 2.79 M/UL (4.70-6.10); RED CELL DISTRIBUTION WIDTH 16.1 % (11.6-14.8); WHITE BLOOD COUNT 8.7 K/UL (4.8-10.8)
[2017-12-10] MEDS: Levemir Flexpen SUBQ SCH ×2 (08:51→17:40)
[2017-12-10] MEDS: Sucralfate 1gm tab GT SCH ×2 (08:52→17:38)
[2017-12-10] MEDS: Aspirin Baby 81mg NG SCH (08:52)
[2017-12-10] MEDS: Heparin 5000 units/ml inj SUBQ SCH ×2 (08:54→21:01)
--- NOTE | 2017-12-10 08:54 | General Progress Note ---
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 --> Anemia w/u has been reviewed. Will trend CBC daily as needed --> No evidence of hemolysis noted, peripheral smear reviewed --> Hgb goal >7. Transfuse as needed prn basis # Leukocytosis. Likely related to underlying infection vs reactive process. --> Imaging has been reviewed. Shows stable cardiomegaly. slight haziness of the pulmonary vascularity suggests mild interstitial edema. Unchanged elevation of the left hemidiaphragm. --> Blood cx and urine cx have been reviewed --> on abx, empiric rx # Thrombocytopenia. Potential causes multifactorial, now better --> Hep panel negative and HIV is negative --> abd us shows no significant cirrhosis or hsm --> Abx and other meds have been reviewed --> consider bmbx if in future does not improve --> Ok for ppx if heparin >50k with heparin sq --> currently appears to have stabilized # Constipation. --> ordered KUB evaluate abdominal distention - No acute process. findings have been reviewed --> electrolyte correction --> prevacid GT --> bowel regime # Sepsis. # Malnutrition. --> peg GREATLY APPRECIATE CONSULTATION. Subjective Constitutional: Denies: no symptoms, chills, diaphoresis, fever, malaise, weakness, other HEENT: Denies: no symptoms, eye pain, blurred vision, tearing, double vision, ear pain, ear discharge, nose pain, nose congestion, throat pain, throat swelling, mouth pain, mouth swelling, other Cardiovascular: Denies: no symptoms, chest pain, edema, irregular heart rate, lightheadedness, palpitations, syncope, other Respiratory: Denies: no symptoms, cough, orthopnea, shortness of breath, SOB with excertion, SOB at rest, sputum, stridor, wheezing, other Gastrointestinal/Abdominal: Denies: no symptoms, abdomen distended, abdominal pain, black stools, tarry stools, blood in stool, constipated, diarrhea, difficulty swallowing, nausea, poor appetite, poor fluid intake, rectal bleeding , vomiting, other Genitourinary: Denies: no symptoms, burning, discharge, frequency, flank pain, hematuria, incontinence, pain, urgency, other Neurologic/Psychiatric: Denies: no symptoms, anxiety, depressed, emotional problems, headache, numbness, paresthesia, pre-existing deficit, seizure, tingling, tremors, weakness, other Allergies: Coded Allergies: TERAZOSIN (Verified Allergy, Unknown, 10/27/17) Subjective resting comfortably. H/H stable. getting bipap Objective Last 24 Hour Vital Signs Date Time Temp Pulse Resp B/P (MAP) Pulse Ox O2 Delivery O2 Flow Rate FiO2 12/10/17 04:00 93 12/10/17 04:00 99.3 97 29 146/78 (100) 97 12/10/17 01:23 91 30 99 Facial 30 12/10/17 00:00 99.0 97 27 155/75 (101) 97 12/10/17 00:00 95 12/09/17 23:17 97 32 99 Facial 30 12/09/17 21:42 99 32 98 Facial 30 12/09/17 21:42 98 Bi-pap 30 12/09/17 21:42 Bi-pap 30 12/09/17 21:42 99 32 Bi-pap 30 12/09/17 21:00 Bi-pap 12/09/17 20:00 93 12/09/17 20:00 98.4 101 27 140/80 (100) 98 12/09/17 16:00 Nasal Cannula 2.0 12/09/17 16:00 97.2 89 16 113/64 (80) 99 12/09/17 15:42 90 12/09/17 12:00 98.1 91 16 140/69 (92) 99 12/09/17 12:00 Nasal Cannula 2.0 12/09/17 11:51 94 Intake and Output 12/09/17 12/10/17 18:59 06:59 Intake Total 1287.5 ml 600 ml Output Total 1850 ml 1400 ml Balance -562.5 ml -800 ml Free Water 200 ml IV Total 432.5 ml 600 ml Tube Feeding 655 ml Output Urine Total 950 ml 1100 ml Stool Total 900 ml 300 ml # Voids 4 # Bowel Movements 2 Laboratory Tests 12/10/17 08:05: White Blood Count 8.7, Red Blood Count 2.79L, Hemoglobin 7.2L, Hematocrit 22.4L , Mean Corpuscular Volume 80, Mean Corpuscular Hemoglobin 25.9L, Mean Corpuscular Hemoglobin Concent 32.3, Red Cell Distribution Width 16.1H, Platelet Count 261, Mean Platelet Volume 7.1, Neutrophils (%) (Auto) , Lymphocytes (%) (Auto) , Monocytes (%) (Auto) , Eosinophils (%) (Auto) , Basophils (%) (Auto) , Neutrophils % (Manual) [Pending], Lymphocytes % (Manual) [Pending], Platelet Estimate [Pending], Platelet Morphology [Pending] Height (Feet): 5 Height (Inches): 5.00 Weight (Pounds): 172 General Appearance: alert EENT: normal ENT inspection Neck: supple Cardiovascular: regular rhythm Respiratory/Chest: other - ++ bipap Abdomen: no mass, other - ++ peg Extremities: non-tender Edema: 1+ Leg (L), 1+ Leg (R) Edema: trace edema Neurologic: alert Objective peg+++ Beny Dalton MD Dec 10, 2017 08:54
[2017-12-10] MEDS: Nitroglycerin Patch 0.4mg TDERMAL SCH (08:59)
--- NOTE | 2017-12-10 09:08 | Infectious Diseases Prog Note ---
Assessment/Plan Assessment/Plan A; Sepsis, SIRS Pancreatitis Rhabdomyolysis Acute respiratory failure Acute renal failure improving Dehydration Elevated transaminase P: Continue Zosyn UA. UC Change Turner catheter Case was D/W RN Subjective ROS Limited/Unobtainable: Yes Gastrointestinal/Abdominal: Reports: diarrhea Genitourinary: Reports: other - penile discharge Allergies: Coded Allergies: TERAZOSIN (Verified Allergy, Unknown, 10/27/17) Objective Vital Signs Last 24 Hour Vital Signs Date Time Temp Pulse Resp B/P (MAP) Pulse Ox O2 Delivery O2 Flow Rate FiO2 12/10/17 08:59 145/72 12/10/17 04:00 93 12/10/17 04:00 99.3 97 29 146/78 (100) 97 12/10/17 01:23 91 30 99 Facial 30 12/10/17 00:00 99.0 97 27 155/75 (101) 97 12/10/17 00:00 95 12/09/17 23:17 97 32 99 Facial 30 12/09/17 21:42 99 32 98 Facial 30 12/09/17 21:42 98 Bi-pap 30 12/09/17 21:42 Bi-pap 30 12/09/17 21:42 99 32 Bi-pap 30 12/09/17 21:00 Bi-pap 12/09/17 20:00 93 12/09/17 20:00 98.4 101 27 140/80 (100) 98 12/09/17 16:00 Nasal Cannula 2.0 12/09/17 16:00 97.2 89 16 113/64 (80) 99 12/09/17 15:42 90 12/09/17 12:00 98.1 91 16 140/69 (92) 99 12/09/17 12:00 Nasal Cannula 2.0 12/09/17 11:51 94 Height (Feet): 5 Height (Inches): 5.00 Weight (Pounds): 172 General Appearance: no acute distress HEENT: mucous membranes moist Respiratory/Chest: lungs clear Cardiovascular: normal rate, other - R arm PICC line Abdomen: soft, non tender, other - GT feeding, rectal tube Genitourinary: other - genital edema, Turner catheter, small discharge around Turner Extremities: other - generalized edema Neurologic/Psychiatric: unresponsiveness Laboratory Tests Test 12/10/17 08:05 White Blood Count 8.7 K/UL (4.8-10.8) Red Blood Count 2.79 M/UL (4.70-6.10) L Hemoglobin 7.2 G/DL (14.2-18.0) L Hematocrit 22.4 % (42.0-52.0) L Mean Corpuscular Volume 80 FL (80-99) Mean Corpuscular Hemoglobin 25.9 PG (27.0-31.0) L Mean Corpuscular Hemoglobin Concent 32.3 G/DL (32.0-36.0) Red Cell Distribution Width 16.1 % (11.6-14.8) H Platelet Count 261 K/UL (150-450) Mean Platelet Volume 7.1 FL (6.5-10.1) Neutrophils (%) (Auto) % (45.0-75.0) Lymphocytes (%) (Auto) % (20.0-45.0) Monocytes (%) (Auto) % (1.0-10.0) Eosinophils (%) (Auto) % (0.0-3.0) Basophils (%) (Auto) % (0.0-2.0) Neutrophils % (Manual) Pending Lymphocytes % (Manual) Pending Platelet Estimate Pending Platelet Morphology Pending Current Medications Medications (Trade) Dose Ordered Sig/Ruthie Route PRN Reason Start Time Stop Time Status Last Admin Dose Admin Albuterol/ Ipratropium (Albuterol/ Ipratropium) 3 ml Q4H PRN HHN Shortness of Breath 12/07/17 23:30 12/10/17 15:20 12/08/17 19:23 Aspirin (ASA) 162 mg DAILY NG 12/08/17 09:00 01/01/18 08:59 12/10/17 08:52 Atorvastatin Calcium (Lipitor) 40 mg BEDTIME ORAL 12/09/17 21:00 01/08/18 20:59 12/09/17 22:39 Chlorhexidine Gluconate (Rachael-Hex 2%) 1 applic DAILY@1999 TOPIC 12/08/17 20:00 01/03/18 19:59 12/09/17 22:39 Clonidine HCl (Catapres Tab) 0.1 mg Q4H PRN ORAL BLOOD PRESSURE 12/07/17 21:15 01/06/18 21:14 Dextrose (Dextrose 50%) 25 ml Q30M PRN IV Hypoglycemia 12/07/17 20:30 01/03/18 06:59 Dextrose (Dextrose 50%) 50 ml Q30M PRN IV Hypoglycemia 12/07/17 20:30 01/03/18 06:59 Dextrose/ Electrolytes 1,000 ml @ 50 mls/hr Q20H IV 12/07/17 20:30 01/03/18 10:46 12/07/17 21:31 Heparin Sodium (Porcine) (Heparin 5000 units/ml) 5,000 units EVERY 12 HOURS SUBQ 12/07/17 21:00 12/31/17 20:59 12/10/17 08:54 Insulin Aspart (NovoLOG) EVERY 6 HOURS SUBQ 12/08/17 00:00 01/01/18 20:59 12/10/17 06:05 Insulin Detemir (Levemir) 15 units Q24H SUBQ 12/08/17 09:00 01/07/18 08:59 12/09/17 08:56 Lansoprazole (Prevacid) 30 mg DAILY GT 12/10/17 09:00 01/09/18 08:59 12/10/17 08:52 Loperamide HCl (Imodium) 2 mg Q6H PRN NG Diarrhea 12/07/17 20:30 01/02/18 08:29 Nitroglycerin (Ntg) 1 patch Q24H TDERMAL 12/08/17 09:00 01/01/18 08:59 12/10/17 08:59 Piperacillin Sod/ Tazobactam Sod 3.375 gm/Sodium Chloride 110 ml @ 27.5 mls/hr Q8HR IVPB 12/07/17 22:00 12/12/17 08:59 12/10/17 06:06 Quetiapine Fumarate (SEROquel) 12.5 mg Q4H PRN GT agitation 12/07/17 20:45 01/03/18 20:29 Sucralfate (Carafate) 1 gm BID GT 12/09/17 18:00 12/31/17 17:59 12/10/17 08:52 Anam Cruz MD Dec 10, 2017 09:08
--- NOTE | 2017-12-10 10:27 | General Progress Note ---
Assessment/Plan Problem List: (1) Renal failure (ARF), acute on chronic ICD Codes: N17.9 - Acute kidney failure, unspecified; N18.9 - Chronic kidney disease, unspecified SNOMED: 138188816 Qualifiers: Qualified Codes: N17.9 - Acute kidney failure, unspecified; N18.3 - Chronic kidney disease, stage 3 (moderate) (2) NSTEMI (non-ST elevated myocardial infarction) ICD Codes: I21.4 - Non-ST elevation (NSTEMI) myocardial infarction SNOMED: 548819238 (3) Hypernatremia ICD Codes: E87.0 - Hyperosmolality and hypernatremia SNOMED: 70774704 (4) DM (5) Rhabdomyolysis ICD Codes: M62.82 - Rhabdomyolysis SNOMED: 350624999 (6) Hypoxemia ICD Codes: R09.02 - Hypoxemia SNOMED: 988678858 (7) Severe sepsis ICD Codes: A41.9 - Sepsis, unspecified organism; R65.20 - Severe sepsis without septic shock SNOMED: 95918549 Assessment/Plan glucose valueson lower side - Levemir 15 units qam was held this morning TF tolerated and continuous without interruption - change Levemir 15 units qam to 6 units bid starting with pm dose today - continue NISS every 6 hours - discussed with RN Subjective ROS Limited/Unobtainable: Yes Allergies: Coded Allergies: TERAZOSIN (Verified Allergy, Unknown, 10/27/17) Subjective events noted transferred out of ICU Objective Last 24 Hour Vital Signs Date Time Temp Pulse Resp B/P (MAP) Pulse Ox O2 Delivery O2 Flow Rate FiO2 12/10/17 09:12 Nasal Cannula 2.0 28 12/10/17 09:12 90 26 Nasal Cannula 2.0 28 12/10/17 09:12 97 Nasal Cannula 2.0 28 12/10/17 09:00 Nasal Cannula 2.0 12/10/17 08:59 145/72 12/10/17 08:00 98.5 95 24 147/72 (97) 97 12/10/17 04:00 93 12/10/17 04:00 99.3 97 29 146/78 (100) 97 12/10/17 01:23 91 30 99 Facial 30 12/10/17 00:00 99.0 97 27 155/75 (101) 97 12/10/17 00:00 95 12/09/17 23:17 97 32 99 Facial 30 12/09/17 21:42 99 32 98 Facial 30 12/09/17 21:42 98 Bi-pap 30 12/09/17 21:42 Bi-pap 30 12/09/17 21:42 99 32 Bi-pap 30 12/09/17 21:00 Bi-pap 12/09/17 20:00 93 12/09/17 20:00 98.4 101 27 140/80 (100) 98 12/09/17 16:00 Nasal Cannula 2.0 12/09/17 16:00 97.2 89 16 113/64 (80) 99 12/09/17 15:42 90 12/09/17 12:00 98.1 91 16 140/69 (92) 99 12/09/17 12:00 Nasal Cannula 2.0 12/09/17 11:51 94 Intake and Output 12/09/17 12/10/17 18:59 06:59 Intake Total 1287.5 ml 600 ml Output Total 1850 ml 1400 ml Balance -562.5 ml -800 ml Free Water 200 ml IV Total 432.5 ml 600 ml Tube Feeding 655 ml Output Urine Total 950 ml 1100 ml Stool Total 900 ml 300 ml # Voids 4 # Bowel Movements 2 Laboratory Tests 12/10/17 08:05: White Blood Count 8.7, Red Blood Count 2.79L, Hemoglobin 7.2L, Hematocrit 22.4L , Mean Corpuscular Volume 80, Mean Corpuscular Hemoglobin 25.9L, Mean Corpuscular Hemoglobin Concent 32.3, Red Cell Distribution Width 16.1H, Platelet Count 261, Mean Platelet Volume 7.1, Neutrophils (%) (Auto) , Lymphocytes (%) (Auto) , Monocytes (%) (Auto) , Eosinophils (%) (Auto) , Basophils (%) (Auto) , Differential Total Cells Counted 100, Neutrophils % ( Manual) 68, Lymphocytes % (Manual) 22, Monocytes % (Manual) 8, Eosinophils % ( Manual) 2, Basophils % (Manual) 0, Band Neutrophils 0, Platelet Estimate Adequate, Platelet Morphology Normal, Polychromasia 1+, Hypochromasia 1+, Anisocytosis 1+ Height (Feet): 5 Height (Inches): 5.00 Weight (Pounds): 172 General Appearance: no apparent distress EENT: pale conjunctivae Neck: normal alignment Cardiovascular: normal peripheral pulses Respiratory/Chest: lungs clear Abdomen: normal bowel sounds, other - PEG Edema: no edema noted Arm (L), no edema noted Arm (R), no edema noted Leg (L), no edema noted Leg (R), no edema noted Pedal (L), no edema noted Pedal (R), no edema noted Generalized Objective Current Medications Medications (Trade) Dose Ordered Sig/Ruthie Route PRN Reason Start Time Stop Time Status Last Admin Dose Admin Albuterol/ Ipratropium (Albuterol/ Ipratropium) 3 ml Q4H PRN HHN Shortness of Breath 12/07/17 23:30 12/10/17 15:20 12/08/17 19:23 Aspirin (ASA) 162 mg DAILY NG 12/08/17 09:00 01/01/18 08:59 12/10/17 08:52 Atorvastatin Calcium (Lipitor) 40 mg BEDTIME ORAL 12/09/17 21:00 01/08/18 20:59 12/09/17 22:39 Chlorhexidine Gluconate (Rachael-Hex 2%) 1 applic DAILY@2000 TOPIC 12/08/17 20:00 01/03/18 19:59 12/09/17 22:39 Clonidine HCl (Catapres Tab) 0.1 mg Q4H PRN ORAL BLOOD PRESSURE 12/07/17 21:15 01/06/18 21:14 Dextrose (Dextrose 50%) 25 ml Q30M PRN IV Hypoglycemia 12/07/17 20:30 01/03/18 06:59 Dextrose (Dextrose 50%) 50 ml Q30M PRN IV Hypoglycemia 12/07/17 20:30 01/03/18 06:59 Dextrose/ Electrolytes 1,000 ml @ 50 mls/hr Q20H IV 12/07/17 20:30 01/03/18 10:46 12/07/17 21:31 Heparin Sodium (Porcine) (Heparin 5000 units/ml) 5,000 units EVERY 12 HOURS SUBQ 12/07/17 21:00 12/31/17 20:59 12/10/17 08:54 Insulin Aspart (NovoLOG) EVERY 6 HOURS SUBQ 12/08/17 00:00 01/01/18 20:59 12/10/17 06:05 Insulin Detemir (Levemir) 15 units Q24H SUBQ 12/08/17 09:00 01/07/18 08:59 12/09/17 08:56 Lansoprazole (Prevacid) 30 mg DAILY GT 12/10/17 09:00 01/09/18 08:59 12/10/17 08:52 Loperamide HCl (Imodium) 2 mg Q6H PRN NG Diarrhea 12/07/17 20:30 01/02/18 08:29 Nitroglycerin (Ntg) 1 patch Q24H TDERMAL 12/08/17 09:00 01/01/18 08:59 12/10/17 08:59 Piperacillin Sod/ Tazobactam Sod 3.375 gm/Sodium Chloride 110 ml @ 27.5 mls/hr Q8HR IVPB 12/07/17 22:00 12/12/17 08:59 12/10/17 06:06 Quetiapine Fumarate (SEROquel) 12.5 mg Q4H PRN GT agitation 12/07/17 20:45 01/03/18 20:29 Sucralfate (Carafate) 1 gm BID GT 12/09/17 18:00 12/31/17 17:59 12/10/17 08:52 Item Value Date Time Bedside Blood Glucose 107 mg/dl 12/10/17 0851 Bedside Blood Glucose 158 mg/dl H 12/10/17 0605 Bedside Blood Glucose 119 mg/dl 12/10/17 0059 Bedside Blood Glucose 94 mg/dl 12/09/17 1801 Bedside Blood Glucose 138 mg/dl H 12/09/17 1205 Stefan Leon MD Dec 10, 2017 10:27
--- NOTE | 2017-12-10 10:39 | Nephrology Progress Note ---
Assessment/Plan Problem List: (1) Renal failure (ARF), acute on chronic (2) Respiratory failure (3) Hypernatremia (4) Rhabdomyolysis (5) DM Assessment Acute respiratory failure- now extubated Acute Renal failure- Severe Dehydration PEG Sepsis / UTI / Pneumonia Hypotension- Septic Shock High Lipase Rhabdo- High CPK Elevated Troponin Dementia Plan DC midodrine- consider transfusion change IV rate- K supplement as needed check am vanco levels monitor CK post extubation care Gastric support Antibiotics Monitor renal parameters Per orders Subjective ROS Limited/Unobtainable: No Constitutional: Reports: malaise Objective Objective Last 24 Hour Vital Signs Date Time Temp Pulse Resp B/P (MAP) Pulse Ox O2 Delivery O2 Flow Rate FiO2 12/10/17 09:12 Nasal Cannula 2.0 28 12/10/17 09:12 90 26 Nasal Cannula 2.0 28 12/10/17 09:12 97 Nasal Cannula 2.0 28 12/10/17 09:00 Nasal Cannula 2.0 12/10/17 08:59 145/72 12/10/17 08:00 98.5 95 24 147/72 (97) 97 12/10/17 04:00 93 12/10/17 04:00 99.3 97 29 146/78 (100) 97 12/10/17 01:23 91 30 99 Facial 30 12/10/17 00:00 99.0 97 27 155/75 (101) 97 12/10/17 00:00 95 12/09/17 23:17 97 32 99 Facial 30 12/09/17 21:42 99 32 98 Facial 30 12/09/17 21:42 98 Bi-pap 30 12/09/17 21:42 Bi-pap 30 12/09/17 21:42 99 32 Bi-pap 30 12/09/17 21:00 Bi-pap 12/09/17 20:00 93 12/09/17 20:00 98.4 101 27 140/80 (100) 98 12/09/17 16:00 Nasal Cannula 2.0 12/09/17 16:00 97.2 89 16 113/64 (80) 99 12/09/17 15:42 90 12/09/17 12:00 98.1 91 16 140/69 (92) 99 12/09/17 12:00 Nasal Cannula 2.0 12/09/17 11:51 94 Intake and Output 12/09/17 12/10/17 18:59 06:59 Intake Total 1287.5 ml 600 ml Output Total 1850 ml 1400 ml Balance -562.5 ml -800 ml Free Water 200 ml IV Total 432.5 ml 600 ml Tube Feeding 655 ml Output Urine Total 950 ml 1100 ml Stool Total 900 ml 300 ml # Voids 4 # Bowel Movements 2 Laboratory Tests 12/10/17 08:05: White Blood Count 8.7, Red Blood Count 2.79L, Hemoglobin 7.2L, Hematocrit 22.4L , Mean Corpuscular Volume 80, Mean Corpuscular Hemoglobin 25.9L, Mean Corpuscular Hemoglobin Concent 32.3, Red Cell Distribution Width 16.1H, Platelet Count 261, Mean Platelet Volume 7.1, Neutrophils (%) (Auto) , Lymphocytes (%) (Auto) , Monocytes (%) (Auto) , Eosinophils (%) (Auto) , Basophils (%) (Auto) , Differential Total Cells Counted 100, Neutrophils % ( Manual) 68, Lymphocytes % (Manual) 22, Monocytes % (Manual) 8, Eosinophils % ( Manual) 2, Basophils % (Manual) 0, Band Neutrophils 0, Platelet Estimate Adequate, Platelet Morphology Normal, Polychromasia 1+, Hypochromasia 1+, Anisocytosis 1+, Pro-B-Type Natriuretic Peptide [Pending] Height (Feet): 5 Height (Inches): 5.00 Weight (Pounds): 172 General Appearance: no apparent distress Objective no other change Randolph Fernandes MD Dec 10, 2017 10:39
--- NOTE | 2017-12-10 10:47 | General Progress Note ---
Assessment/Plan Assessment/Plan Assessment (1) Malnutrition ICD Codes: E46 - Unspecified protein-calorie malnutrition SNOMED: 53887071 (2) Pancreatitis ICD Codes: K85.90 - Acute pancreatitis without necrosis or infection, unspecified SNOMED: 77705276 Qualifiers: Qualified Codes: K85.90 - Acute pancreatitis without necrosis or infection, unspecified (3) Diarrhea has a rectal tube (4) PEG (percutaneous endoscopic gastrostomy) status ICD Codes: Z93.1 - Gastrostomy status SNOMED: 136056646, 893953615 (5) DM (6) Severe sepsis ICD Codes: A41.9 - Sepsis, unspecified organism; R65.20 - Severe sepsis without septic shock SNOMED: 73798290 Status: stable (7) anemia, with OB (+) Stools Assessment/Plan transaminitis >> hep panel negative may need a blood transfusion soon defer GI proceduer to Dr. Coronel on GTF Imodium prn rectal tube fu nephrology fu labs ppi BID trend LFTs Subjective Allergies: Coded Allergies: TERAZOSIN (Verified Allergy, Unknown, 10/27/17) Subjective above noted non verbal labs reviewed d/w RN Objective Last 24 Hour Vital Signs Date Time Temp Pulse Resp B/P (MAP) Pulse Ox O2 Delivery O2 Flow Rate FiO2 12/10/17 09:12 Nasal Cannula 2.0 28 12/10/17 09:12 90 26 Nasal Cannula 2.0 28 12/10/17 09:12 97 Nasal Cannula 2.0 28 12/10/17 09:00 Nasal Cannula 2.0 12/10/17 08:59 145/72 12/10/17 08:00 98.5 95 24 147/72 (97) 97 12/10/17 04:00 93 12/10/17 04:00 99.3 97 29 146/78 (100) 97 12/10/17 01:23 91 30 99 Facial 30 12/10/17 00:00 99.0 97 27 155/75 (101) 97 12/10/17 00:00 95 12/09/17 23:17 97 32 99 Facial 30 12/09/17 21:42 99 32 98 Facial 30 12/09/17 21:42 98 Bi-pap 30 12/09/17 21:42 Bi-pap 30 12/09/17 21:42 99 32 Bi-pap 30 12/09/17 21:00 Bi-pap 12/09/17 20:00 93 12/09/17 20:00 98.4 101 27 140/80 (100) 98 12/09/17 16:00 Nasal Cannula 2.0 12/09/17 16:00 97.2 89 16 113/64 (80) 99 12/09/17 15:42 90 12/09/17 12:00 98.1 91 16 140/69 (92) 99 12/09/17 12:00 Nasal Cannula 2.0 12/09/17 11:51 94 Intake and Output 12/09/17 12/10/17 18:59 06:59 Intake Total 1287.5 ml 600 ml Output Total 1850 ml 1400 ml Balance -562.5 ml -800 ml Free Water 200 ml IV Total 432.5 ml 600 ml Tube Feeding 655 ml Output Urine Total 950 ml 1100 ml Stool Total 900 ml 300 ml # Voids 4 # Bowel Movements 2 Laboratory Tests 12/10/17 08:05: White Blood Count 8.7, Red Blood Count 2.79L, Hemoglobin 7.2L, Hematocrit 22.4L , Mean Corpuscular Volume 80, Mean Corpuscular Hemoglobin 25.9L, Mean Corpuscular Hemoglobin Concent 32.3, Red Cell Distribution Width 16.1H, Platelet Count 261, Mean Platelet Volume 7.1, Neutrophils (%) (Auto) , Lymphocytes (%) (Auto) , Monocytes (%) (Auto) , Eosinophils (%) (Auto) , Basophils (%) (Auto) , Differential Total Cells Counted 100, Neutrophils % ( Manual) 68, Lymphocytes % (Manual) 22, Monocytes % (Manual) 8, Eosinophils % ( Manual) 2, Basophils % (Manual) 0, Band Neutrophils 0, Platelet Estimate Adequate, Platelet Morphology Normal, Polychromasia 1+, Hypochromasia 1+, Anisocytosis 1+, Pro-B-Type Natriuretic Peptide [Pending] Height (Feet): 5 Height (Inches): 5.00 Weight (Pounds): 172 Objective AA man NCAT supple CTA RRR abd soft , mildly distended, (+) GT edema all 4 extremities Sameer Don MD Dec 10, 2017 10:47
[2017-12-10 12:00] VITALS: BP 143/77
--- NOTE | 2017-12-10 13:09 | Diagnostic Imaging Report ---
EXAM: XR Chest, 1 View CLINICAL HISTORY: Shortness of breath TECHNIQUE: Frontal view of the chest. COMPARISON: Chest x-ray dated 12/06/17 FINDINGS: Lungs: Subsegmental atelectasis versus infiltrate in the left lung base. Mildly increased interstitial markings, unchanged. Pleural space: Unremarkable. The costophrenic angles are sharp. No visible pneumothorax. Heart: Unremarkable. No cardiomegaly. Mediastinum: Unremarkable. Bones/joints: Unremarkable. Vasculature: Atherosclerotic calcifications are noted within the aortic arch. Tubes, lines and devices: Right arm PICC is stable in position with catheter tip in the region of the SVC/right atrial junction. EKG leads overlie the thorax. IMPRESSION: 1. Subsegmental atelectasis versus infiltrate in the left lung base. 2. Mildly increased interstitial markings, unchanged. This may be related to chronic senescent changes versus mild pulmonary vascular congestion or mild interstitial pneumonitis.
[2017-12-10] MEDS ORDERED: NS 275ml ONE (15:14)
[2017-12-10] MEDS ORDERED: Tubing IV Secondary IV ONE (15:14)
[2017-12-10 16:00] VITALS: BP 139/61
[2017-12-10 16:28] LABS: APPEARANCE,URINE SLIGHTLY CLOUDY; BILIRUBIN, URINE NEGATIVE (NEGATIVE); COLOR,URINE PALE YELLOW; GLUCOSE, URINE (UA) NEGATIVE (NEGATIVE); KETONES,URINE NEGATIVE (NEGATIVE); LEUKOCYTE ESTERASE ,URINE NEGATIVE (NEGATIVE); NITRITE,URINE NEGATIVE (NEGATIVE); PH,URINE 5 (4.5-8.0); PROTEIN,URINE 2+ (NEGATIVE); UROBILINOGEN,URINE NORMAL MG/DL (0.0-1.0)
[2017-12-10 20:00] VITALS: BP 146/74
--- NOTE | 2017-12-10 20:26 | General Progress Note ---
Assessment/Plan Problem List: (1) Hypoxemia ICD Codes: R09.02 - Hypoxemia SNOMED: 339380300 (2) Pneumonia ICD Codes: J18.9 - Pneumonia, unspecified organism SNOMED: 516547626 (3) Malnutrition ICD Codes: E46 - Unspecified protein-calorie malnutrition SNOMED: 77066531 (4) Renal failure (ARF), acute on chronic ICD Codes: N17.9 - Acute kidney failure, unspecified; N18.9 - Chronic kidney disease, unspecified SNOMED: 316334071 Qualifiers: Qualified Codes: N17.9 - Acute kidney failure, unspecified; N18.3 - Chronic kidney disease, stage 3 (moderate) (5) Respiratory failure ICD Codes: J96.90 - Respiratory failure, unspecified, unspecified whether with hypoxia or hypercapnia SNOMED: 946865963 Qualifiers: Qualified Codes: J96.00 - Acute respiratory failure, unspecified whether with hypoxia or hypercapnia (6) Severe sepsis ICD Codes: A41.9 - Sepsis, unspecified organism; R65.20 - Severe sepsis without septic shock SNOMED: 25136127 (7) UTI (urinary tract infection) ICD Codes: N39.0 - Urinary tract infection, site not specified SNOMED: 65348036 Qualifiers: Qualified Codes: N39.0 - Urinary tract infection, site not specified (8) NSTEMI (non-ST elevated myocardial infarction) ICD Codes: I21.4 - Non-ST elevation (NSTEMI) myocardial infarction SNOMED: 407201105 (9) Hypernatremia ICD Codes: E87.0 - Hyperosmolality and hypernatremia SNOMED: 18449507 (10) DM (11) Rhabdomyolysis ICD Codes: M62.82 - Rhabdomyolysis SNOMED: 189943144 Status: progressing, tolerating diet Assessment/Plan hypernatremia improving resp insuff lethargic abx per id lyte abnormality bph r/p urinary stricture consulted dr fernandez for ulologu dehydration improving sepsis nstemi resolved Subjective ROS Limited/Unobtainable: Yes Allergies: Coded Allergies: TERAZOSIN (Verified Allergy, Unknown, 10/27/17) Objective Last 24 Hour Vital Signs Date Time Temp Pulse Resp B/P (MAP) Pulse Ox O2 Delivery O2 Flow Rate FiO2 12/10/17 20:00 93 12/10/17 20:00 98.4 94 25 146/74 (98) 97 12/10/17 18:47 Nasal Cannula 2.0 12/10/17 16:00 98.1 93 20 139/61 (87) 97 12/10/17 16:00 93 12/10/17 12:00 91 12/10/17 12:00 98.2 87 16 143/77 (99) 97 12/10/17 09:12 Nasal Cannula 2.0 28 12/10/17 09:12 90 26 Nasal Cannula 2.0 28 12/10/17 09:12 97 Nasal Cannula 2.0 28 12/10/17 09:00 Nasal Cannula 2.0 12/10/17 08:59 145/72 12/10/17 08:00 91 12/10/17 08:00 98.5 95 24 147/72 (97) 97 12/10/17 04:00 93 12/10/17 04:00 99.3 97 29 146/78 (100) 97 12/10/17 01:23 91 30 99 Facial 30 12/10/17 00:00 99.0 97 27 155/75 (101) 97 12/10/17 00:00 95 12/09/17 23:17 97 32 99 Facial 30 12/09/17 21:42 99 32 98 Facial 30 12/09/17 21:42 98 Bi-pap 30 12/09/17 21:42 Bi-pap 30 12/09/17 21:42 99 32 Bi-pap 30 12/09/17 21:00 Bi-pap Intake and Output 12/09/17 12/10/17 19:00 07:00 Intake Total 1337.5 ml 715 ml Output Total 1850 ml 1400 ml Balance -512.5 ml -685 ml Free Water 200 ml 100 ml IV Total 482.5 ml 550 ml Tube Feeding 655 ml 65 ml Output Urine Total 950 ml 1100 ml Stool Total 900 ml 300 ml # Voids 4 # Bowel Movements 2 Laboratory Tests 12/10/17 08:05: White Blood Count 8.7, Red Blood Count 2.79L, Hemoglobin 7.2L, Hematocrit 22.4L , Mean Corpuscular Volume 80, Mean Corpuscular Hemoglobin 25.9L, Mean Corpuscular Hemoglobin Concent 32.3, Red Cell Distribution Width 16.1H, Platelet Count 261, Mean Platelet Volume 7.1, Neutrophils (%) (Auto) , Lymphocytes (%) (Auto) , Monocytes (%) (Auto) , Eosinophils (%) (Auto) , Basophils (%) (Auto) , Differential Total Cells Counted 100, Neutrophils % ( Manual) 68, Lymphocytes % (Manual) 22, Monocytes % (Manual) 8, Eosinophils % ( Manual) 2, Basophils % (Manual) 0, Band Neutrophils 0, Platelet Estimate Adequate, Platelet Morphology Normal, Polychromasia 1+, Hypochromasia 1+, Anisocytosis 1+, Pro-B-Type Natriuretic Peptide 1077H 12/10/17 16:05: Urine Color Pale yellow, Urine Appearance Slightly cloudy, Urine pH 5, Urine Specific [place] 1.015, Urine Protein 2+H, Urine Glucose (UA) Negative, Urine Ketones Negative, Urine Blood 5+H, Urine Nitrite Negative, Urine Bilirubin Negative, Urine Urobilinogen Normal, Urine Leukocyte Esterase Negative, Urine RBC TntcH, Urine WBC 0-2, Urine Squamous Epithelial Cells Occasional, Urine Amorphous Sediment ModerateH, Urine Bacteria ModerateH Height (Feet): 5 Height (Inches): 5.00 Weight (Pounds): 172 Cardiovascular: normal rate Respiratory/Chest: lungs clear Abdomen: soft Trish Matias MD Dec 10, 2017 20:26
[2017-12-10] MEDS: Atorvastatin 20mg tab ORAL SCH (21:00)
[2017-12-10] MEDS: Dyna-Hex 2% Top Sol 2oz TOPIC SCH (21:00)
--- NOTE | 2017-12-10 22:40 | Cardiology Progress Note ---
Assessment/Plan Assessment/Plan 1. Septic shock in combination with hypovolemic shock, continue IV fluid. 2. Sinus tachycardia, improved, most likely secondary to severe intravascular volume depletion, currently on appropriate fluid administration. 3. Slight elevation of troponin I level could be of a variety of etiologies in this patient, although [id number] myocardial infarction type 2 due to demand ischemia should be considered. Continue ASA, statins not suggested for now due to transaminitis . Subjective Subjective Sinus rhythm at rate of 94. Objective Last 24 Hour Vital Signs Date Time Temp Pulse Resp B/P (MAP) Pulse Ox O2 Delivery O2 Flow Rate FiO2 12/10/17 21:00 Nasal Cannula 2.0 12/10/17 20:51 90 20 Nasal Cannula 2.0 28 12/10/17 20:51 Nasal Cannula 2.0 28 12/10/17 20:51 98 Nasal Cannula 2.0 28 12/10/17 20:00 93 12/10/17 20:00 98.4 94 25 146/74 (98) 97 12/10/17 18:47 Nasal Cannula 2.0 12/10/17 16:00 98.1 93 20 139/61 (87) 97 12/10/17 16:00 93 12/10/17 12:00 91 12/10/17 12:00 98.2 87 16 143/77 (99) 97 12/10/17 09:12 Nasal Cannula 2.0 28 12/10/17 09:12 90 26 Nasal Cannula 2.0 28 12/10/17 09:12 97 Nasal Cannula 2.0 28 12/10/17 09:00 Nasal Cannula 2.0 12/10/17 08:59 145/72 12/10/17 08:00 91 12/10/17 08:00 98.5 95 24 147/72 (97) 97 12/10/17 04:00 93 12/10/17 04:00 99.3 97 29 146/78 (100) 97 12/10/17 01:23 91 30 99 Facial 30 12/10/17 00:00 99.0 97 27 155/75 (101) 97 12/10/17 00:00 95 12/09/17 23:17 97 32 99 Facial 30 Intake and Output 12/09/17 12/10/17 19:00 07:00 Intake Total 1337.5 ml 715 ml Output Total 1850 ml 1400 ml Balance -512.5 ml -685 ml Free Water 200 ml 100 ml IV Total 482.5 ml 550 ml Tube Feeding 655 ml 65 ml Output Urine Total 950 ml 1100 ml Stool Total 900 ml 300 ml # Voids 4 # Bowel Movements 2 2D Echo: From Sep 24:LVEF 65%, Mild LVH,Small Pericardial Eff.,Grade I LVDD, Mild AR Laboratory Tests Test 12/10/17 08:05 12/10/17 16:05 White Blood Count 8.7 K/UL (4.8-10.8) Red Blood Count 2.79 M/UL (4.70-6.10) L Hemoglobin 7.2 G/DL (14.2-18.0) L Hematocrit 22.4 % (42.0-52.0) L Mean Corpuscular Volume 80 FL (80-99) Mean Corpuscular Hemoglobin 25.9 PG (27.0-31.0) L Mean Corpuscular Hemoglobin Concent 32.3 G/DL (32.0-36.0) Red Cell Distribution Width 16.1 % (11.6-14.8) H Platelet Count 261 K/UL (150-450) Mean Platelet Volume 7.1 FL (6.5-10.1) Neutrophils (%) (Auto) % (45.0-75.0) Lymphocytes (%) (Auto) % (20.0-45.0) Monocytes (%) (Auto) % (1.0-10.0) Eosinophils (%) (Auto) % (0.0-3.0) Basophils (%) (Auto) % (0.0-2.0) Differential Total Cells Counted 100 Neutrophils % (Manual) 68 % (45-75) Lymphocytes % (Manual) 22 % (20-45) Monocytes % (Manual) 8 % (1-10) Eosinophils % (Manual) 2 % (0-3) Basophils % (Manual) 0 % (0-2) Band Neutrophils 0 % (0-8) Platelet Estimate Adequate Platelet Morphology Normal Polychromasia 1+ Hypochromasia 1+ Anisocytosis 1+ Pro-B-Type Natriuretic Peptide 1077 pg/mL (0-125) H Urine Color Pale yellow Urine Appearance Slightly cloudy Urine pH 5 (4.5-8.0) Urine Specific [place] 1.015 (1.005-1.035) Urine Protein 2+ (NEGATIVE) H Urine Glucose (UA) Negative (NEGATIVE) Urine Ketones Negative (NEGATIVE) Urine Blood 5+ (NEGATIVE) H Urine Nitrite Negative (NEGATIVE) Urine Bilirubin Negative (NEGATIVE) Urine Urobilinogen Normal MG/DL (0.0-1.0) Urine Leukocyte Esterase Negative (NEGATIVE) Urine RBC Tntc /HPF (0 - 0) H Urine WBC 0-2 /HPF (0 - 0) Urine Squamous Epithelial Cells Occasional /LPF Urine Amorphous Sediment Moderate /LPF (NONE) H Urine Bacteria Moderate /HPF (NONE) H Objective HEENT: Atraumatic and normocephalic. Anicteric. Pupils are equal, round, and reactive to light and accommodation. Dry mucosal membranes. NECK: JVP less than 5 cm. No carotid bruit. Carotid upstrokes 2+ bilaterally. CARDIOVASCULAR: Normal S1, S2. Regular rhythm. Cannot appreciate any murmurs, gallops, or rubs. LUNGS: Diminished breath sounds in both lungs. ABDOMEN: Soft, nontender, and nondistended. Diminished bowel sounds. Presence of G-tube. No hepatosplenomegaly. EXTREMITIES: Contraction and pressure protection. No edema, clubbing, or cyanosis. Luke Estrada MD Dec 10, 2017 22:40
[2017-12-11] VITALS: BP 155/94
[2017-12-11] MEDS: Piperacillin/Tazobactam 3.375 GM in NS 110 ML IVPB SCH ×2 (03:49→11:58)
[2017-12-11 04:00] VITALS: BP 160/91
--- NOTE | 2017-12-11 04:00 | Consultation ---
DATE OF CONSULTATION: 12/10/2017 UROLOGY CONSULTATION CONSULTING PHYSICIAN: Delon Dodd M.D. ATTENDING PHYSICIAN: Trish Matias M.D. CHIEF COMPLAINT/HISTORY OF PRESENT ILLNESS: I was asked by Dr. Matias to evaluate this unfortunate 87-year-old gentleman regarding a history of inability of staff to pass the urinary catheter in the setting of sepsis. The patient did present to the hospital with respiratory failure, pneumonia, non-STEMI, and other issues. A Turner catheter was originally placed in the ER, but recently was noted to have some discharge around it. As such, another physician ordered to be removed and replace. Staff could not do so and as such, I was asked to evaluate the patient. The patient is noncommunicative. Most information is gathered from the chart. PAST MEDICAL HISTORY: 1. Organic brain syndrome. 2. Hypertension. 3. Dementia. 4. BPH. 5. Pneumonia. 6. Acute renal insufficiency. PAST SURGICAL HISTORY: PEG. MEDICATIONS: Please see the chart for current medications and administration details. ALLERGIES: Include terazosin. SOCIAL HISTORY: Unobtainable. FAMILY HISTORY: Unobtainable. REVIEW OF SYSTEMS: A 14-system review of systems cannot be done as the patient cannot cooperate with questioning. PHYSICAL EXAMINATION: GENERAL: The patient is an elderly gentleman, awake and alert, but not oriented. No obvious distress. HEENT: NC/AT. EOMI. Oropharynx clear. NECK: Supple. Full range of motion. CHEST: Within normal limits. ABDOMEN: Soft, somewhat obese, nontender, and nondistended. EXTREMITIES: Warm and well perfused. No cyanosis, clubbing, or edema. BACK: No CVA tenderness to percussion appreciable. NEUROLOGICAL: Notable for dementia. The patient cannot cooperate with the remainder of the exam. GENITOURINARY: Exam reveals an uncircumcised phallus with some phimosis and edema. There are bilateral descended testes and cord structures. There are no masses or tenderness to palpation. LABORATORY DATA: White blood cell count 8.7, hematocrit 22.4, and platelets 261,000. PT, PTT, and INR within normal limits. Sodium 148, potassium 3.9, chloride 118, bicarbonate 21, BUN 18, creatinine 1.6, and glucose 126. Calcium is 7.9. Urinalysis, specific gravity 1.015 and pH 5.0. Dip test notable for 3+ protein, 1+ ketones, 5+ occult blood, positive nitrite, and 3+ leukocyte esterase. Microanalysis with 5 to 10 red, 60 to 80 white blood cells per high-power field, and many bacteria seen. Urine culture most recently with no growth. DIAGNOSTIC IMAGING: Abdominal ultrasound with no acute findings. ASSESSMENT AND PLAN: In summary, the patient is an 87-year-old gentleman with a history of sepsis among other issues. He presented with signs and symptoms of the same and a Turner catheter was originally placed. It was later removed by another physician and staff could not replace it. Physical exam reveals an edematous and phimotic foreskin, which is difficult to reduce. Laboratory data is notable for evidence of renal insufficiency and urinary tract infection. Diagnostic imaging with ultrasound does not reveal any abnormalities. Today at the bedside with some manual traction and pressure, I was able to reduce the edema and exposed the hip. Through the phimotic foreskin, a Turner catheter was inserted and with some difficulty negotiated into the patient's bladder. This returned clear yellow urine output. It was hand irrigated and irrigated easily indicating good position within bladder. It was inflated and left to gravity drainage. The patient' catheter should be kept in place as it will be difficult to replace the next time again. Thank you for allowing me to participate in the care of this nice gentleman. Please do not hesitate to contact me with any questions that you may further have regarding his care. I will see him with you as needed. Delon Dodd M.D. DR: BITA JOB#: [id number] CC:
[2017-12-11] MEDS: NovoLOG Insulin Flexpen SUBQ SCH ×3 (05:36→18:00)
--- NOTE | 2017-12-11 07:08 | General Progress Note ---
Assessment/Plan Problem List: (1) Renal failure (ARF), acute on chronic ICD Codes: N17.9 - Acute kidney failure, unspecified; N18.9 - Chronic kidney disease, unspecified SNOMED: 100553984 Qualifiers: Qualified Codes: N17.9 - Acute kidney failure, unspecified; N18.3 - Chronic kidney disease, stage 3 (moderate) (2) NSTEMI (non-ST elevated myocardial infarction) ICD Codes: I21.4 - Non-ST elevation (NSTEMI) myocardial infarction SNOMED: 682126617 (3) Hypernatremia ICD Codes: E87.0 - Hyperosmolality and hypernatremia SNOMED: 86887714 (4) DM (5) Rhabdomyolysis ICD Codes: M62.82 - Rhabdomyolysis SNOMED: 942443052 (6) Hypoxemia ICD Codes: R09.02 - Hypoxemia SNOMED: 802132394 (7) Severe sepsis ICD Codes: A41.9 - Sepsis, unspecified organism; R65.20 - Severe sepsis without septic shock SNOMED: 19257897 Assessment/Plan glucose values are stabe TF tolerated and continuous without interruption - continue Levemir 5 units bid - continue NISS every 6 hours Subjective ROS Limited/Unobtainable: Yes Allergies: Coded Allergies: TERAZOSIN (Verified Allergy, Unknown, 10/27/17) Subjective events noted Objective Last 24 Hour Vital Signs Date Time Temp Pulse Resp B/P (MAP) Pulse Ox O2 Delivery O2 Flow Rate FiO2 12/11/17 06:00 93 12/11/17 04:00 97.7 91 24 160/91 (114) 98 12/11/17 03:31 89 24 98 Facial 30 12/11/17 01:33 90 24 97 Facial 30 12/11/17 00:00 98.6 96 28 155/94 (114) 99 12/11/17 00:00 91 12/10/17 23:28 92 22 99 Facial 30 12/10/17 21:00 Nasal Cannula 2.0 12/10/17 20:51 90 20 Nasal Cannula 2.0 28 12/10/17 20:51 Nasal Cannula 2.0 28 12/10/17 20:51 98 Nasal Cannula 2.0 28 12/10/17 20:00 93 12/10/17 20:00 98.4 94 25 146/74 (98) 97 12/10/17 18:47 Nasal Cannula 2.0 12/10/17 16:00 98.1 93 20 139/61 (87) 97 12/10/17 16:00 93 12/10/17 12:00 91 12/10/17 12:00 98.2 87 16 143/77 (99) 97 12/10/17 09:12 Nasal Cannula 2.0 28 12/10/17 09:12 90 26 Nasal Cannula 2.0 28 12/10/17 09:12 97 Nasal Cannula 2.0 28 12/10/17 09:00 Nasal Cannula 2.0 12/10/17 08:59 145/72 12/10/17 08:00 91 12/10/17 08:00 98.5 95 24 147/72 (97) 97 Intake and Output 12/10/17 12/11/17 19:00 07:00 Intake Total 880 ml 1362.5 ml Output Total 380 ml 1125 ml Balance 500 ml 237.5 ml Free Water 100 ml 110 ml IV Total 472.5 ml Tube Feeding 780 ml 780 ml Output Urine Total 380 ml 725 ml Stool Total 400 ml # Voids 1 Laboratory Tests 12/10/17 08:05: White Blood Count 8.7, Red Blood Count 2.79L, Hemoglobin 7.2L, Hematocrit 22.4L , Mean Corpuscular Volume 80, Mean Corpuscular Hemoglobin 25.9L, Mean Corpuscular Hemoglobin Concent 32.3, Red Cell Distribution Width 16.1H, Platelet Count 261, Mean Platelet Volume 7.1, Neutrophils (%) (Auto) , Lymphocytes (%) (Auto) , Monocytes (%) (Auto) , Eosinophils (%) (Auto) , Basophils (%) (Auto) , Differential Total Cells Counted 100, Neutrophils % ( Manual) 68, Lymphocytes % (Manual) 22, Monocytes % (Manual) 8, Eosinophils % ( Manual) 2, Basophils % (Manual) 0, Band Neutrophils 0, Platelet Estimate Adequate, Platelet Morphology Normal, Polychromasia 1+, Hypochromasia 1+, Anisocytosis 1+, Pro-B-Type Natriuretic Peptide 1077H 12/10/17 16:05: Urine Color Pale yellow, Urine Appearance Slightly cloudy, Urine pH 5, Urine Specific [place] 1.015, Urine Protein 2+H, Urine Glucose (UA) Negative, Urine Ketones Negative, Urine Blood 5+H, Urine Nitrite Negative, Urine Bilirubin Negative, Urine Urobilinogen Normal, Urine Leukocyte Esterase Negative, Urine RBC TntcH, Urine WBC 0-2, Urine Squamous Epithelial Cells Occasional, Urine Amorphous Sediment ModerateH, Urine Bacteria ModerateH Height (Feet): 5 Height (Inches): 5.00 Weight (Pounds): 172 General Appearance: no apparent distress Neck: normal alignment Cardiovascular: normal rate Respiratory/Chest: decreased breath sounds Abdomen: normal bowel sounds Pelvis: normal external exam Edema: 1+ Arm (L), 1+ Arm (R), 1+ Leg (L), 1+ Leg (R), 1+ Pedal (L), 1+ Pedal ( R), 1+ Generalized Objective Current Medications Medications (Trade) Dose Ordered Sig/Ruthie Route PRN Reason Start Time Stop Time Status Last Admin Dose Admin Aspirin (ASA) 162 mg DAILY NG 12/08/17 09:00 01/01/18 08:59 12/10/17 08:52 Atorvastatin Calcium (Lipitor) 40 mg BEDTIME ORAL 12/09/17 21:00 01/08/18 20:59 12/10/17 21:00 Chlorhexidine Gluconate (Rachael-Hex 2%) 1 applic DAILY@2000 TOPIC 12/08/17 20:00 01/03/18 19:59 12/10/17 21:00 Clonidine HCl (Catapres Tab) 0.1 mg Q4H PRN ORAL BLOOD PRESSURE 12/07/17 21:15 01/06/18 21:14 Dextrose (Dextrose 50%) 25 ml Q30M PRN IV Hypoglycemia 12/07/17 20:30 01/03/18 06:59 Dextrose (Dextrose 50%) 50 ml Q30M PRN IV Hypoglycemia 12/07/17 20:30 01/03/18 06:59 Dextrose/ Electrolytes 1,000 ml @ 50 mls/hr Q20H IV 12/07/17 20:30 01/03/18 10:46 12/10/17 21:03 Heparin Sodium (Porcine) (Heparin 5000 units/ml) 5,000 units EVERY 12 HOURS SUBQ 12/07/17 21:00 12/31/17 20:59 12/10/17 21:01 Insulin Aspart (NovoLOG) EVERY 6 HOURS SUBQ 12/08/17 00:00 01/01/18 20:59 12/11/17 05:36 Insulin Detemir (Levemir) 6 units BID SUBQ 12/10/17 18:00 01/07/18 08:59 12/10/17 17:40 Lansoprazole (Prevacid) 30 mg DAILY GT 12/10/17 09:00 01/09/18 08:59 12/10/17 08:52 Loperamide HCl (Imodium) 2 mg Q6H PRN NG Diarrhea 12/07/17 20:30 01/02/18 08:29 Nitroglycerin (Ntg) 1 patch Q24H TDERMAL 12/08/17 09:00 01/01/18 08:59 12/10/17 08:59 Piperacillin Sod/ Tazobactam Sod 3.375 gm/Sodium Chloride 110 ml @ 27.5 mls/hr Q8H IVPB 12/11/17 04:00 12/18/17 03:59 12/11/17 03:49 Quetiapine Fumarate (SEROquel) 12.5 mg Q4H PRN GT agitation 12/07/17 20:45 01/03/18 20:29 Sucralfate (Carafate) 1 gm BID GT 12/09/17 18:00 12/31/17 17:59 12/10/17 17:38 Item Value Date Time Bedside Blood Glucose 137 mg/dl H 12/11/17 0600 Bedside Blood Glucose 117 mg/dl 12/10/17 2348 Bedside Blood Glucose 120 mg/dl 12/10/17 1800 Bedside Blood Glucose 136 mg/dl H 12/10/17 1308 Bedside Blood Glucose 107 mg/dl 12/10/17 0900 Bedside Blood Glucose 158 mg/dl H 12/10/17 0605 Stefan Leon MD Dec 11, 2017 07:08
[2017-12-11 07:45] LABS: BASOPHILS % (AUTO) 0.6 % (0.0-2.0); EOSINOPHILS % (AUTO) 2.4 % (0.0-3.0); HEMATOCRIT 26.3 % (42.0-52.0); HEMOGLOBIN 8.8 G/DL (14.2-18.0); LYMPHOCYTES % (AUTO) 16.6 % (20.0-45.0); MEAN CORPUSCULAR VOLUME 81 FL (80-99); MONOCYTES % (AUTO) 6.2 % (1.0-10.0); NEUTROPHILS % (AUTO) 74.2 % (45.0-75.0); PLATELET COUNT 306 K/UL (150-450); RED BLOOD COUNT 3.23 M/UL (4.70-6.10); WHITE BLOOD COUNT 9.9 K/UL (4.8-10.8)
[2017-12-11 08:00] VITALS: BP 153/84
[2017-12-11] MEDS: Levemir Flexpen SUBQ SCH ×2 (09:25→18:17)
[2017-12-11] MEDS: Heparin 5000 units/ml inj SUBQ SCH ×2 (09:26→22:32)
[2017-12-11] MEDS: Sucralfate 1gm tab GT SCH ×2 (09:26→18:13)
[2017-12-11] MEDS: Nitroglycerin Patch 0.4mg TDERMAL SCH (09:27)
[2017-12-11] MEDS: Aspirin Baby 81mg NG SCH (09:27)
--- NOTE | 2017-12-11 11:03 | GI Progress Note ---
Assessment/Plan Problems: (1) Malnutrition ICD Codes: E46 - Unspecified protein-calorie malnutrition SNOMED: 43432150 (2) Pancreatitis ICD Codes: K85.90 - Acute pancreatitis without necrosis or infection, unspecified SNOMED: 07354324 Qualifiers: Qualified Codes: K85.90 - Acute pancreatitis without necrosis or infection, unspecified (3) Constipation ICD Codes: K59.00 - Constipation, unspecified SNOMED: 26087997 (4) PEG (percutaneous endoscopic gastrostomy) status ICD Codes: Z93.1 - Gastrostomy status SNOMED: 465213854, 976015851 (5) DM (6) Severe sepsis ICD Codes: A41.9 - Sepsis, unspecified organism; R65.20 - Severe sepsis without septic shock SNOMED: 91828744 Status: stable Status Narrative Discussed with Dr. Coronel. Assessment/Plan transaminitis >> hep panel negative may need a blood transfusion soon defer GI proceduer to Dr. Coronel on GTF Imodium prn rectal tube fu nephrology fu labs ppi BID trend LFTs The patient was seen and examined at bedside and all new and available data was reviewed in the patients chart. I agree with the above findings, impression and plan. (Patient seen earlier today. Signature stamp does not reflect patient encounter time.). - Juan Coronel MD Subjective Subjective limited Objective Last 24 Hour Vital Signs Date Time Temp Pulse Resp B/P (MAP) Pulse Ox O2 Delivery O2 Flow Rate FiO2 12/11/17 09:27 153/84 12/11/17 09:00 Nasal Cannula 2.0 12/11/17 08:20 Nasal Cannula 2.0 28 12/11/17 08:20 98 Nasal Cannula 2.0 28 12/11/17 08:00 92 12/11/17 08:00 98.4 92 18 153/84 (107) 95 12/11/17 06:00 93 12/11/17 04:00 97.7 91 24 160/91 (114) 98 12/11/17 03:31 89 24 98 Facial 30 12/11/17 01:33 90 24 97 Facial 30 12/11/17 00:00 98.6 96 28 155/94 (114) 99 12/11/17 00:00 91 12/10/17 23:28 92 22 99 Facial 30 12/10/17 21:00 Nasal Cannula 2.0 12/10/17 20:51 90 20 Nasal Cannula 2.0 28 12/10/17 20:51 Nasal Cannula 2.0 28 12/10/17 20:51 98 Nasal Cannula 2.0 28 12/10/17 20:00 93 12/10/17 20:00 98.4 94 25 146/74 (98) 97 12/10/17 18:47 Nasal Cannula 2.0 12/10/17 16:00 98.1 93 20 139/61 (87) 97 12/10/17 16:00 93 12/10/17 12:00 91 12/10/17 12:00 98.2 87 16 143/77 (99) 97 Intake and Output 12/10/17 12/11/17 19:00 07:00 Intake Total 880 ml 1362.5 ml Output Total 380 ml 1125 ml Balance 500 ml 237.5 ml Free Water 100 ml 110 ml IV Total 472.5 ml Tube Feeding 780 ml 780 ml Output Urine Total 380 ml 725 ml Stool Total 400 ml # Voids 1 Laboratory Tests Test 12/10/17 16:05 12/11/17 05:45 Urine Color Pale yellow Urine Appearance Slightly cloudy Urine pH 5 (4.5-8.0) Urine Specific [place] 1.015 (1.005-1.035) Urine Protein 2+ (NEGATIVE) H Urine Glucose (UA) Negative (NEGATIVE) Urine Ketones Negative (NEGATIVE) Urine Blood 5+ (NEGATIVE) H Urine Nitrite Negative (NEGATIVE) Urine Bilirubin Negative (NEGATIVE) Urine Urobilinogen Normal MG/DL (0.0-1.0) Urine Leukocyte Esterase Negative (NEGATIVE) Urine RBC Tntc /HPF (0 - 0) H Urine WBC 0-2 /HPF (0 - 0) Urine Squamous Epithelial Cells Occasional /LPF Urine Amorphous Sediment Moderate /LPF (NONE) H Urine Bacteria Moderate /HPF (NONE) H White Blood Count 9.9 K/UL (4.8-10.8) Red Blood Count 3.23 M/UL (4.70-6.10) L Hemoglobin 8.8 G/DL (14.2-18.0) L Hematocrit 26.3 % (42.0-52.0) L Mean Corpuscular Volume 81 FL (80-99) Mean Corpuscular Hemoglobin 27.2 PG (27.0-31.0) Mean Corpuscular Hemoglobin Concent 33.4 G/DL (32.0-36.0) Red Cell Distribution Width 16.0 % (11.6-14.8) H Platelet Count 306 K/UL (150-450) Mean Platelet Volume 6.2 FL (6.5-10.1) L Neutrophils (%) (Auto) 74.2 % (45.0-75.0) Lymphocytes (%) (Auto) 16.6 % (20.0-45.0) L Monocytes (%) (Auto) 6.2 % (1.0-10.0) Eosinophils (%) (Auto) 2.4 % (0.0-3.0) Basophils (%) (Auto) 0.6 % (0.0-2.0) Microbiology Date/Time Source Procedure Growth Status 12/10/17 16:05 Urine,Clean Catch Urine Culture - Preliminary NO GROWTH Resulted Height (Feet): 5 Height (Inches): 5.00 Weight (Pounds): 172 General Appearance: WD/WN, no apparent distress, alert Cardiovascular: normal rate Respiratory/Chest: normal breath sounds, no respiratory distress Abdominal Exam: normal bowel sounds, non tender, soft Extremities: non-tender Kishan Hopkins NP Dec 11, 2017 11:03
--- NOTE | 2017-12-11 11:04 | General Progress Note ---
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 --> Anemia w/u has been reviewed. Will trend CBC daily as needed --> No evidence of hemolysis noted, peripheral smear has been reviewed --> Hgb goal >7. Transfuse as needed prn basis --> 1 unit ordered for 12/11 # Leukocytosis. Likely related to underlying infection vs reactive process. --> Imaging has been reviewed. Shows stable cardiomegaly. slight haziness of the pulmonary vascularity suggests mild interstitial edema. Unchanged elevation of the left hemidiaphragm. --> Blood cx and urine cx also reviewed --> on abx, empiric rx # Thrombocytopenia. Potential causes multifactorial, now better --> Hep panel negative and HIV is negative --> abd us shows no significant cirrhosis or hsm --> Abx and other meds have been reviewed --> consider bmbx if in future does not improve --> Ok for ppx if heparin >50k with heparin sq --> currently appears to have stabilized # Constipation. --> KUB evaluate abdominal distention - No acute process. findings have been reviewed --> electrolyte correction --> prevacid GT --> bowel regime # Sepsis. # Malnutrition. --> s/p peg GREATLY APPRECIATE CONSULTATION. Subjective ROS Limited/Unobtainable: Yes Allergies: Coded Allergies: TERAZOSIN (Verified Allergy, Unknown, 10/27/17) Subjective resting comfortably. H/H stable. on TFs, on NC Objective Last 24 Hour Vital Signs Date Time Temp Pulse Resp B/P (MAP) Pulse Ox O2 Delivery O2 Flow Rate FiO2 12/11/17 09:27 153/84 12/11/17 09:00 Nasal Cannula 2.0 12/11/17 08:20 Nasal Cannula 2.0 28 12/11/17 08:20 98 Nasal Cannula 2.0 28 12/11/17 08:00 92 12/11/17 08:00 98.4 92 18 153/84 (107) 95 12/11/17 06:00 93 12/11/17 04:00 97.7 91 24 160/91 (114) 98 12/11/17 03:31 89 24 98 Facial 30 12/11/17 01:33 90 24 97 Facial 30 12/11/17 00:00 98.6 96 28 155/94 (114) 99 12/11/17 00:00 91 12/10/17 23:28 92 22 99 Facial 30 12/10/17 21:00 Nasal Cannula 2.0 12/10/17 20:51 90 20 Nasal Cannula 2.0 28 12/10/17 20:51 Nasal Cannula 2.0 28 12/10/17 20:51 98 Nasal Cannula 2.0 28 12/10/17 20:00 93 12/10/17 20:00 98.4 94 25 146/74 (98) 97 12/10/17 18:47 Nasal Cannula 2.0 12/10/17 16:00 98.1 93 20 139/61 (87) 97 12/10/17 16:00 93 12/10/17 12:00 91 12/10/17 12:00 98.2 87 16 143/77 (99) 97 Intake and Output 12/10/17 12/11/17 19:00 07:00 Intake Total 880 ml 1362.5 ml Output Total 380 ml 1125 ml Balance 500 ml 237.5 ml Free Water 100 ml 110 ml IV Total 472.5 ml Tube Feeding 780 ml 780 ml Output Urine Total 380 ml 725 ml Stool Total 400 ml # Voids 1 Laboratory Tests 12/10/17 16:05: Urine Color Pale yellow, Urine Appearance Slightly cloudy, Urine pH 5, Urine Specific [place] 1.015, Urine Protein 2+H, Urine Glucose (UA) Negative, Urine Ketones Negative, Urine Blood 5+H, Urine Nitrite Negative, Urine Bilirubin Negative, Urine Urobilinogen Normal, Urine Leukocyte Esterase Negative, Urine RBC TntcH, Urine WBC 0-2, Urine Squamous Epithelial Cells Occasional, Urine Amorphous Sediment ModerateH, Urine Bacteria ModerateH 12/11/17 05:45: White Blood Count 9.9, Red Blood Count 3.23L, Hemoglobin 8.8L, Hematocrit 26.3L , Mean Corpuscular Volume 81, Mean Corpuscular Hemoglobin 27.2, Mean Corpuscular Hemoglobin Concent 33.4, Red Cell Distribution Width 16.0H, Platelet Count 306, Mean Platelet Volume 6.2L, Neutrophils (%) (Auto) 74.2, Lymphocytes (%) (Auto) 16.6L, Monocytes (%) (Auto) 6.2, Eosinophils (%) (Auto) 2.4, Basophils (%) (Auto) 0.6 Height (Feet): 5 Height (Inches): 5.00 Weight (Pounds): 172 General Appearance: no apparent distress EENT: normal ENT inspection Neck: normal inspection Cardiovascular: regular rhythm Respiratory/Chest: normal breath sounds Abdomen: non tender Extremities: normal inspection Edema: no edema noted Leg (L), no edema noted Leg (R) Edema: mild edema Neurologic: alert Skin: warm/dry Objective NCAT supple CTA RRR abd soft , mildly distended, (+) GT edema all 4 extremities Beny Dalton MD Dec 11, 2017 11:04
[2017-12-11 12:00] VITALS: BP 141/80
--- NOTE | 2017-12-11 12:16 | Infectious Diseases Prog Note ---
Assessment/Plan Assessment/Plan A; Sepsis, SIRS Pancreatitis Rhabdomyolysis Acute respiratory failure Acute renal failure improving Dehydration Elevated transaminase P: discontinue Zosyn Observe off antibiotic Subjective ROS Limited/Unobtainable: Yes Gastrointestinal/Abdominal: Reports: diarrhea Genitourinary: Reports: other - crabtree catheter was changed Allergies: Coded Allergies: TERAZOSIN (Verified Allergy, Unknown, 10/27/17) Objective Vital Signs Last 24 Hour Vital Signs Date Time Temp Pulse Resp B/P (MAP) Pulse Ox O2 Delivery O2 Flow Rate FiO2 12/11/17 09:27 153/84 12/11/17 09:00 Nasal Cannula 2.0 12/11/17 08:20 Nasal Cannula 2.0 28 12/11/17 08:20 98 Nasal Cannula 2.0 28 12/11/17 08:00 92 12/11/17 08:00 98.4 92 18 153/84 (107) 95 12/11/17 06:00 93 12/11/17 04:00 97.7 91 24 160/91 (114) 98 12/11/17 03:31 89 24 98 Facial 30 12/11/17 01:33 90 24 97 Facial 30 12/11/17 00:00 98.6 96 28 155/94 (114) 99 12/11/17 00:00 91 12/10/17 23:28 92 22 99 Facial 30 12/10/17 21:00 Nasal Cannula 2.0 12/10/17 20:51 90 20 Nasal Cannula 2.0 28 12/10/17 20:51 Nasal Cannula 2.0 28 12/10/17 20:51 98 Nasal Cannula 2.0 28 12/10/17 20:00 93 12/10/17 20:00 98.4 94 25 146/74 (98) 97 12/10/17 18:47 Nasal Cannula 2.0 12/10/17 16:00 98.1 93 20 139/61 (87) 97 12/10/17 16:00 93 Height (Feet): 5 Height (Inches): 5.00 Weight (Pounds): 172 General Appearance: no acute distress HEENT: mucous membranes moist Respiratory/Chest: rhonchi - bilaterally Cardiovascular: normal rate, other - R arm PICC line Abdomen: soft, non tender, other - GT & rectal tube Extremities: other - edema Neurologic/Psychiatric: aphasia Microbiology Date/Time Source Procedure Growth Status 12/10/17 16:05 Urine,Clean Catch Urine Culture - Preliminary NO GROWTH Resulted 12/10/17 09:50 Indwelling Cath Urine Culture - Preliminary NO GROWTH Resulted Laboratory Tests Test 12/10/17 16:05 12/11/17 05:45 Urine Color Pale yellow Urine Appearance Slightly cloudy Urine pH 5 (4.5-8.0) Urine Specific [place] 1.015 (1.005-1.035) Urine Protein 2+ (NEGATIVE) H Urine Glucose (UA) Negative (NEGATIVE) Urine Ketones Negative (NEGATIVE) Urine Blood 5+ (NEGATIVE) H Urine Nitrite Negative (NEGATIVE) Urine Bilirubin Negative (NEGATIVE) Urine Urobilinogen Normal MG/DL (0.0-1.0) Urine Leukocyte Esterase Negative (NEGATIVE) Urine RBC Tntc /HPF (0 - 0) H Urine WBC 0-2 /HPF (0 - 0) Urine Squamous Epithelial Cells Occasional /LPF Urine Amorphous Sediment Moderate /LPF (NONE) H Urine Bacteria Moderate /HPF (NONE) H White Blood Count 9.9 K/UL (4.8-10.8) Red Blood Count 3.23 M/UL (4.70-6.10) L Hemoglobin 8.8 G/DL (14.2-18.0) L Hematocrit 26.3 % (42.0-52.0) L Mean Corpuscular Volume 81 FL (80-99) Mean Corpuscular Hemoglobin 27.2 PG (27.0-31.0) Mean Corpuscular Hemoglobin Concent 33.4 G/DL (32.0-36.0) Red Cell Distribution Width 16.0 % (11.6-14.8) H Platelet Count 306 K/UL (150-450) Mean Platelet Volume 6.2 FL (6.5-10.1) L Neutrophils (%) (Auto) 74.2 % (45.0-75.0) Lymphocytes (%) (Auto) 16.6 % (20.0-45.0) L Monocytes (%) (Auto) 6.2 % (1.0-10.0) Eosinophils (%) (Auto) 2.4 % (0.0-3.0) Basophils (%) (Auto) 0.6 % (0.0-2.0) Current Medications Medications (Trade) Dose Ordered Sig/Ruthie Route PRN Reason Start Time Stop Time Status Last Admin Dose Admin Aspirin (ASA) 162 mg DAILY NG 12/08/17 09:00 01/01/18 08:59 12/11/17 09:27 Atorvastatin Calcium (Lipitor) 40 mg BEDTIME ORAL 12/09/17 21:00 01/08/18 20:59 12/10/17 21:00 Chlorhexidine Gluconate (Rachael-Hex 2%) 1 applic DAILY@2000 TOPIC 12/08/17 20:00 01/03/18 19:59 12/10/17 21:00 Clonidine HCl (Catapres Tab) 0.1 mg Q4H PRN ORAL BLOOD PRESSURE 12/07/17 21:15 01/06/18 21:14 Dextrose (Dextrose 50%) 25 ml Q30M PRN IV Hypoglycemia 12/07/17 20:30 01/03/18 06:59 Dextrose (Dextrose 50%) 50 ml Q30M PRN IV Hypoglycemia 12/07/17 20:30 01/03/18 06:59 Dextrose/ Electrolytes 1,000 ml @ 50 mls/hr Q20H IV 12/07/17 20:30 01/03/18 10:46 12/10/17 21:03 Heparin Sodium (Porcine) (Heparin 5000 units/ml) 5,000 units EVERY 12 HOURS SUBQ 12/07/17 21:00 12/31/17 20:59 12/11/17 09:26 Insulin Aspart (NovoLOG) EVERY 6 HOURS SUBQ 12/08/17 00:00 01/01/18 20:59 12/11/17 11:57 Insulin Detemir (Levemir) 6 units BID SUBQ 12/10/17 18:00 01/07/18 08:59 12/11/17 09:25 Lansoprazole (Prevacid) 30 mg DAILY GT 12/10/17 09:00 01/09/18 08:59 12/11/17 09:26 Loperamide HCl (Imodium) 2 mg Q6H PRN NG Diarrhea 12/07/17 20:30 01/02/18 08:29 Nitroglycerin (Ntg) 1 patch Q24H TDERMAL 12/08/17 09:00 01/01/18 08:59 12/11/17 09:27 Piperacillin Sod/ Tazobactam Sod 3.375 gm/Sodium Chloride 110 ml @ 27.5 mls/hr Q8H IVPB 12/11/17 04:00 12/18/17 03:59 12/11/17 11:58 Quetiapine Fumarate (SEROquel) 12.5 mg Q4H PRN GT agitation 12/07/17 20:45 01/03/18 20:29 Sucralfate (Carafate) 1 gm BID GT 12/09/17 18:00 12/31/17 17:59 12/11/17 09:26 Anam Cruz MD Dec 11, 2017 12:16
--- NOTE | 2017-12-11 14:28 | Nephrology Progress Note ---
Assessment/Plan Problem List: (1) Renal failure (ARF), acute on chronic (2) Respiratory failure (3) Hypernatremia (4) Rhabdomyolysis (5) DM Assessment Acute respiratory failure- now extubated Acute Renal failure- Severe Dehydration PEG Sepsis / UTI / Pneumonia Hypotension- Septic Shock High Lipase Rhabdo- High CPK Elevated Troponin Dementia Plan DC midodrine- consider transfusion change IV rate- K supplement as needed check am vanco levels monitor CK post extubation care Gastric support Antibiotics Monitor renal parameters Per orders Subjective ROS Limited/Unobtainable: No Constitutional: Reports: malaise Objective Objective Last 24 Hour Vital Signs Date Time Temp Pulse Resp B/P (MAP) Pulse Ox O2 Delivery O2 Flow Rate FiO2 12/11/17 12:00 90 12/11/17 12:00 97.7 89 20 141/80 (100) 97 12/11/17 09:27 153/84 12/11/17 09:00 Nasal Cannula 2.0 12/11/17 08:20 Nasal Cannula 2.0 28 12/11/17 08:20 98 Nasal Cannula 2.0 28 12/11/17 08:00 92 12/11/17 08:00 98.4 92 18 153/84 (107) 95 12/11/17 06:00 93 12/11/17 04:00 97.7 91 24 160/91 (114) 98 12/11/17 03:31 89 24 98 Facial 30 12/11/17 01:33 90 24 97 Facial 30 12/11/17 00:00 98.6 96 28 155/94 (114) 99 12/11/17 00:00 91 12/10/17 23:28 92 22 99 Facial 30 12/10/17 21:00 Nasal Cannula 2.0 12/10/17 20:51 90 20 Nasal Cannula 2.0 28 12/10/17 20:51 Nasal Cannula 2.0 28 12/10/17 20:51 98 Nasal Cannula 2.0 28 12/10/17 20:00 93 12/10/17 20:00 98.4 94 25 146/74 (98) 97 12/10/17 18:47 Nasal Cannula 2.0 12/10/17 16:00 98.1 93 20 139/61 (87) 97 12/10/17 16:00 93 Intake and Output 12/10/17 12/11/17 18:59 06:59 Intake Total 980 ml 1362.5 ml Output Total 380 ml 1125 ml Balance 600 ml 237.5 ml Free Water 200 ml 110 ml IV Total 472.5 ml Tube Feeding 780 ml 780 ml Output Urine Total 380 ml 725 ml Stool Total 400 ml # Voids 1 Laboratory Tests 12/10/17 16:05: Urine Color Pale yellow, Urine Appearance Slightly cloudy, Urine pH 5, Urine Specific [place] 1.015, Urine Protein 2+H, Urine Glucose (UA) Negative, Urine Ketones Negative, Urine Blood 5+H, Urine Nitrite Negative, Urine Bilirubin Negative, Urine Urobilinogen Normal, Urine Leukocyte Esterase Negative, Urine RBC TntcH, Urine WBC 0-2, Urine Squamous Epithelial Cells Occasional, Urine Amorphous Sediment ModerateH, Urine Bacteria ModerateH 12/11/17 05:45: White Blood Count 9.9, Red Blood Count 3.23L, Hemoglobin 8.8L, Hematocrit 26.3L , Mean Corpuscular Volume 81, Mean Corpuscular Hemoglobin 27.2, Mean Corpuscular Hemoglobin Concent 33.4, Red Cell Distribution Width 16.0H, Platelet Count 306, Mean Platelet Volume 6.2L, Neutrophils (%) (Auto) 74.2, Lymphocytes (%) (Auto) 16.6L, Monocytes (%) (Auto) 6.2, Eosinophils (%) (Auto) 2.4, Basophils (%) (Auto) 0.6 Height (Feet): 5 Height (Inches): 5.00 Weight (Pounds): 172 General Appearance: no apparent distress Cardiovascular: tachycardia Respiratory/Chest: decreased breath sounds Abdomen: soft Objective no other change Randolph Fernandes MD Dec 11, 2017 14:28
[2017-12-11 16:00] VITALS: BP 143/86
--- NOTE | 2017-12-11 16:48 | Pulmonology Progress Note ---
Assessment/Plan Problems: (1) Encephalopathy due to metabolic factor or toxin (2) Sacral decubitus ulcer (3) UTI (urinary tract infection) (4) Pneumonia (5) Renal failure (ARF), acute on chronic (6) Rhabdomyolysis (7) DM (8) Hypernatremia (9) NSTEMI (non-ST elevated myocardial infarction) (10) Severe sepsis (11) Respiratory failure (12) Pancreatitis (13) Malnutrition (14) Constipation Assessment/Plan Optimize pulmonary hygiene/mobilize as tolerated Titrate down FiO2 to keep SaO2 > 92% PRN HHN's PRN BiPAP Observe off Abx per ID Off Midodrine Monitor volumes and electrolytes, consider D/C IVF TF's DVT Px: Hep SQ Glycemic control Subjective Allergies: Coded Allergies: TERAZOSIN (Verified Allergy, Unknown, 10/27/17) Subjective AFVSS, stable on 2L, less distress CXR with mild PVC, BNP elevated + cough + congestion Objective Last 24 Hour Vital Signs Date Time Temp Pulse Resp B/P (MAP) Pulse Ox O2 Delivery O2 Flow Rate FiO2 12/11/17 16:00 87 12/11/17 16:00 98.6 88 18 143/86 (105) 97 12/11/17 12:00 90 12/11/17 12:00 97.7 89 20 141/80 (100) 97 12/11/17 09:27 153/84 12/11/17 09:00 Nasal Cannula 2.0 12/11/17 08:20 Nasal Cannula 2.0 28 12/11/17 08:20 98 Nasal Cannula 2.0 28 12/11/17 08:00 92 12/11/17 08:00 98.4 92 18 153/84 (107) 95 12/11/17 06:00 93 12/11/17 04:00 97.7 91 24 160/91 (114) 98 12/11/17 03:31 89 24 98 Facial 30 12/11/17 01:33 90 24 97 Facial 30 12/11/17 00:00 98.6 96 28 155/94 (114) 99 12/11/17 00:00 91 12/10/17 23:28 92 22 99 Facial 30 12/10/17 21:00 Nasal Cannula 2.0 12/10/17 20:51 90 20 Nasal Cannula 2.0 28 12/10/17 20:51 Nasal Cannula 2.0 28 12/10/17 20:51 98 Nasal Cannula 2.0 28 12/10/17 20:00 93 12/10/17 20:00 98.4 94 25 146/74 (98) 97 12/10/17 18:47 Nasal Cannula 2.0 Intake and Output 12/10/17 12/11/17 18:59 06:59 Intake Total 980 ml 1362.5 ml Output Total 380 ml 1125 ml Balance 600 ml 237.5 ml Free Water 200 ml 110 ml IV Total 472.5 ml Tube Feeding 780 ml 780 ml Output Urine Total 380 ml 725 ml Stool Total 400 ml # Voids 1 General Appearance: no acute distress, cachetic HEENT: normocephalic, atraumatic, anicteric, mucous membranes moist Respiratory/Chest: chest wall non-tender, crackles/rales Cardiovascular: normal peripheral pulses, normal rate, regular rhythm Abdomen: normal bowel sounds, soft, non tender, no organomegaly, non distended , other - GT Extremities: no cyanosis, no clubbing, no edema Microbiology Date/Time Source Procedure Growth Status 12/10/17 16:05 Urine,Clean Catch Urine Culture - Preliminary NO GROWTH Resulted 12/10/17 09:50 Indwelling Cath Urine Culture - Preliminary NO GROWTH Resulted Laboratory Tests 12/11/17 05:45: White Blood Count 9.9, Red Blood Count 3.23L, Hemoglobin 8.8L, Hematocrit 26.3L , Mean Corpuscular Volume 81, Mean Corpuscular Hemoglobin 27.2, Mean Corpuscular Hemoglobin Concent 33.4, Red Cell Distribution Width 16.0H, Platelet Count 306, Mean Platelet Volume 6.2L, Neutrophils (%) (Auto) 74.2, Lymphocytes (%) (Auto) 16.6L, Monocytes (%) (Auto) 6.2, Eosinophils (%) (Auto) 2.4, Basophils (%) (Auto) 0.6 Current Medications Medications (Trade) Dose Ordered Sig/Ruthie Route PRN Reason Start Time Stop Time Status Last Admin Dose Admin Aspirin (ASA) 162 mg DAILY NG 12/08/17 09:00 01/01/18 08:59 12/11/17 09:27 Atorvastatin Calcium (Lipitor) 40 mg BEDTIME ORAL 12/09/17 21:00 01/08/18 20:59 12/10/17 21:00 Chlorhexidine Gluconate (Rachael-Hex 2%) 1 applic DAILY@2000 TOPIC 12/08/17 20:00 01/03/18 19:59 12/10/17 21:00 Clonidine HCl (Catapres Tab) 0.1 mg Q4H PRN ORAL BLOOD PRESSURE 12/07/17 21:15 01/06/18 21:14 Dextrose (Dextrose 50%) 25 ml Q30M PRN IV Hypoglycemia 12/07/17 20:30 01/03/18 06:59 Dextrose (Dextrose 50%) 50 ml Q30M PRN IV Hypoglycemia 12/07/17 20:30 01/03/18 06:59 Dextrose/ Electrolytes 1,000 ml @ 50 mls/hr Q20H IV 12/07/17 20:30 01/03/18 10:46 12/10/17 21:03 Heparin Sodium (Porcine) (Heparin 5000 units/ml) 5,000 units EVERY 12 HOURS SUBQ 12/07/17 21:00 12/31/17 20:59 12/11/17 09:26 Insulin Aspart (NovoLOG) EVERY 6 HOURS SUBQ 12/08/17 00:00 01/01/18 20:59 12/11/17 11:57 Insulin Detemir (Levemir) 6 units BID SUBQ 12/10/17 18:00 01/07/18 08:59 12/11/17 09:25 Lansoprazole (Prevacid) 30 mg DAILY GT 12/10/17 09:00 01/09/18 08:59 12/11/17 09:26 Loperamide HCl (Imodium) 2 mg Q6H PRN NG Diarrhea 12/07/17 20:30 01/02/18 08:29 Nitroglycerin (Ntg) 1 patch Q24H TDERMAL 12/08/17 09:00 01/01/18 08:59 12/11/17 09:27 Quetiapine Fumarate (SEROquel) 12.5 mg Q4H PRN GT agitation 12/07/17 20:45 01/03/18 20:29 Sucralfate (Carafate) 1 gm BID GT 12/09/17 18:00 12/31/17 17:59 12/11/17 09:26 Fantasma Nielsen MD Dec 11, 2017 16:48
[2017-12-11] MEDS ORDERED: Sterile Water Irrig 1000ml IRRIG ONE (17:55)
[2017-12-11] MEDS: D5W w/KCl 20mEq 1,000 ML IV SCH (18:00)
[2017-12-11 20:00] VITALS: BP 141/82
[2017-12-11] MEDS: Dyna-Hex 2% Top Sol 2oz TOPIC SCH (21:02)
--- NOTE | 2017-12-11 22:14 | General Progress Note ---
Assessment/Plan Problem List: (1) Hypoxemia ICD Codes: R09.02 - Hypoxemia SNOMED: 668174318 (2) Pneumonia ICD Codes: J18.9 - Pneumonia, unspecified organism SNOMED: 876290093 (3) Malnutrition ICD Codes: E46 - Unspecified protein-calorie malnutrition SNOMED: 51482543 (4) Renal failure (ARF), acute on chronic ICD Codes: N17.9 - Acute kidney failure, unspecified; N18.9 - Chronic kidney disease, unspecified SNOMED: 910376709 Qualifiers: Qualified Codes: N17.9 - Acute kidney failure, unspecified; N18.3 - Chronic kidney disease, stage 3 (moderate) (5) Respiratory failure ICD Codes: J96.90 - Respiratory failure, unspecified, unspecified whether with hypoxia or hypercapnia SNOMED: 505326211 Qualifiers: Qualified Codes: J96.00 - Acute respiratory failure, unspecified whether with hypoxia or hypercapnia (6) Severe sepsis ICD Codes: A41.9 - Sepsis, unspecified organism; R65.20 - Severe sepsis without septic shock SNOMED: 12095678 (7) UTI (urinary tract infection) ICD Codes: N39.0 - Urinary tract infection, site not specified SNOMED: 51715523 Qualifiers: Qualified Codes: N39.0 - Urinary tract infection, site not specified (8) NSTEMI (non-ST elevated myocardial infarction) ICD Codes: I21.4 - Non-ST elevation (NSTEMI) myocardial infarction SNOMED: 313164386 (9) Hypernatremia ICD Codes: E87.0 - Hyperosmolality and hypernatremia SNOMED: 45984921 (10) DM (11) Rhabdomyolysis ICD Codes: M62.82 - Rhabdomyolysis SNOMED: 106715425 Status: progressing Assessment/Plan anemia is improving poor historian lyte abnormality bph r/p urinary stricture dehydration improving sepsis nstemi resolved Subjective ROS Limited/Unobtainable: Yes Allergies: Coded Allergies: TERAZOSIN (Verified Allergy, Unknown, 10/27/17) Objective Last 24 Hour Vital Signs Date Time Temp Pulse Resp B/P (MAP) Pulse Ox O2 Delivery O2 Flow Rate FiO2 12/11/17 19:56 Nasal Cannula 2.0 28 12/11/17 19:56 98 Nasal Cannula 2.0 28 12/11/17 16:00 87 12/11/17 16:00 98.6 88 18 143/86 (105) 97 12/11/17 12:00 90 12/11/17 12:00 97.7 89 20 141/80 (100) 97 12/11/17 09:27 153/84 12/11/17 09:00 Nasal Cannula 2.0 12/11/17 08:20 Nasal Cannula 2.0 28 12/11/17 08:20 98 Nasal Cannula 2.0 28 12/11/17 08:00 92 12/11/17 08:00 98.4 92 18 153/84 (107) 95 12/11/17 06:00 93 12/11/17 04:00 97.7 91 24 160/91 (114) 98 12/11/17 03:31 89 24 98 Facial 30 12/11/17 01:33 90 24 97 Facial 30 12/11/17 00:00 98.6 96 28 155/94 (114) 99 12/11/17 00:00 91 12/10/17 23:28 92 22 99 Facial 30 Intake and Output 12/10/17 12/11/17 19:00 07:00 Intake Total 880 ml 1362.5 ml Output Total 380 ml 1125 ml Balance 500 ml 237.5 ml Free Water 100 ml 110 ml IV Total 472.5 ml Tube Feeding 780 ml 780 ml Output Urine Total 380 ml 725 ml Stool Total 400 ml # Voids 1 Laboratory Tests 12/11/17 05:45: White Blood Count 9.9, Red Blood Count 3.23L, Hemoglobin 8.8L, Hematocrit 26.3L , Mean Corpuscular Volume 81, Mean Corpuscular Hemoglobin 27.2, Mean Corpuscular Hemoglobin Concent 33.4, Red Cell Distribution Width 16.0H, Platelet Count 306, Mean Platelet Volume 6.2L, Neutrophils (%) (Auto) 74.2, Lymphocytes (%) (Auto) 16.6L, Monocytes (%) (Auto) 6.2, Eosinophils (%) (Auto) 2.4, Basophils (%) (Auto) 0.6 Height (Feet): 5 Height (Inches): 5.00 Weight (Pounds): 172 General Appearance: confused Cardiovascular: normal rate Respiratory/Chest: lungs clear Abdomen: soft Trish Matias MD Dec 11, 2017 22:14
[2017-12-11] MEDS: Atorvastatin 20mg tab ORAL SCH (22:34)
--- NOTE | 2017-12-11 23:08 | General Progress Note ---
Assessment/Plan Problem List: (1) Encephalopathy due to metabolic factor or toxin SNOMED: 444058011 Assessment/Plan Seroquel prn dw staff Subjective Neurologic/Psychiatric: Reports: anxiety, depressed, emotional problems Allergies: Coded Allergies: TERAZOSIN (Verified Allergy, Unknown, 10/27/17) Subjective more interactive the pt is the same Objective Last 24 Hour Vital Signs Date Time Temp Pulse Resp B/P (MAP) Pulse Ox O2 Delivery O2 Flow Rate FiO2 12/11/17 19:56 Nasal Cannula 2.0 28 12/11/17 19:56 98 Nasal Cannula 2.0 28 12/11/17 16:00 87 12/11/17 16:00 98.6 88 18 143/86 (105) 97 12/11/17 12:00 90 12/11/17 12:00 97.7 89 20 141/80 (100) 97 12/11/17 09:27 153/84 12/11/17 09:00 Nasal Cannula 2.0 12/11/17 08:20 Nasal Cannula 2.0 28 12/11/17 08:20 98 Nasal Cannula 2.0 28 12/11/17 08:00 92 12/11/17 08:00 98.4 92 18 153/84 (107) 95 12/11/17 06:00 93 12/11/17 04:00 97.7 91 24 160/91 (114) 98 12/11/17 03:31 89 24 98 Facial 30 12/11/17 01:33 90 24 97 Facial 30 12/11/17 00:00 98.6 96 28 155/94 (114) 99 12/11/17 00:00 91 12/10/17 23:28 92 22 99 Facial 30 Intake and Output 12/10/17 12/11/17 19:00 07:00 Intake Total 880 ml 1362.5 ml Output Total 380 ml 1125 ml Balance 500 ml 237.5 ml Free Water 100 ml 110 ml IV Total 472.5 ml Tube Feeding 780 ml 780 ml Output Urine Total 380 ml 725 ml Stool Total 400 ml # Voids 1 Laboratory Tests 12/11/17 05:45: White Blood Count 9.9, Red Blood Count 3.23L, Hemoglobin 8.8L, Hematocrit 26.3L , Mean Corpuscular Volume 81, Mean Corpuscular Hemoglobin 27.2, Mean Corpuscular Hemoglobin Concent 33.4, Red Cell Distribution Width 16.0H, Platelet Count 306, Mean Platelet Volume 6.2L, Neutrophils (%) (Auto) 74.2, Lymphocytes (%) (Auto) 16.6L, Monocytes (%) (Auto) 6.2, Eosinophils (%) (Auto) 2.4, Basophils (%) (Auto) 0.6 Height (Feet): 5 Height (Inches): 5.00 Weight (Pounds): 172 General Appearance: no apparent distress, alert Neurologic: responsive, depressed affect Lauren Santoyo MD Dec 11, 2017 23:08
[2017-12-12] VITALS: BP 155/87
--- NOTE | 2017-12-12 01:10 | Cardiology Progress Note ---
Assessment/Plan Assessment/Plan LATE ENTRY NOTE: DATE OF SERVICE: Dec 11, 2017 TIME PATIENT SEEN: 12:217pm 1. Septic shock in combination with hypovolemic shock, continue IV fluid. 2. Sinus tachycardia, improved, most likely secondary to severe intravascular volume depletion, currently on appropriate fluid administration. 3. Slight elevation of troponin I level could be of a variety of etiologies in this patient, although [id number] myocardial infarction type 2 due to demand ischemia should be considered. Continue ASA, statins not suggested for now due to transaminitis . Subjective Subjective Sinus rhythm at rate of 90. Objective Last 24 Hour Vital Signs Date Time Temp Pulse Resp B/P (MAP) Pulse Ox O2 Delivery O2 Flow Rate FiO2 12/12/17 00:00 88 12/11/17 21:00 Nasal Cannula 2.0 12/11/17 20:00 89 12/11/17 20:00 99.0 86 20 141/82 (101) 98 12/11/17 19:56 Nasal Cannula 2.0 28 12/11/17 19:56 98 Nasal Cannula 2.0 28 12/11/17 16:00 87 12/11/17 16:00 98.6 88 18 143/86 (105) 97 12/11/17 12:00 90 12/11/17 12:00 97.7 89 20 141/80 (100) 97 12/11/17 09:27 153/84 12/11/17 09:00 Nasal Cannula 2.0 12/11/17 08:20 Nasal Cannula 2.0 28 12/11/17 08:20 98 Nasal Cannula 2.0 28 12/11/17 08:00 92 12/11/17 08:00 98.4 92 18 153/84 (107) 95 12/11/17 06:00 93 12/11/17 04:00 97.7 91 24 160/91 (114) 98 12/11/17 03:31 89 24 98 Facial 30 12/11/17 01:33 90 24 97 Facial 30 Intake and Output 12/11/17 12/12/17 19:00 07:00 Intake Total 1257.5 ml Output Total 1150 ml Balance 107.5 ml Free Water 290 ml IV Total 187.5 ml Tube Feeding 780 ml Output Urine Total 950 ml Stool Total 200 ml 2D Echo: FroM Oct 24:LVEF 65%, Mild LVH,Small Pericardial Eff.,Grade I LVDD, Mild AR Laboratory Tests Test 12/11/17 05:45 White Blood Count 9.9 K/UL (4.8-10.8) Red Blood Count 3.23 M/UL (4.70-6.10) L Hemoglobin 8.8 G/DL (14.2-18.0) L Hematocrit 26.3 % (42.0-52.0) L Mean Corpuscular Volume 81 FL (80-99) Mean Corpuscular Hemoglobin 27.2 PG (27.0-31.0) Mean Corpuscular Hemoglobin Concent 33.4 G/DL (32.0-36.0) Red Cell Distribution Width 16.0 % (11.6-14.8) H Platelet Count 306 K/UL (150-450) Mean Platelet Volume 6.2 FL (6.5-10.1) L Neutrophils (%) (Auto) 74.2 % (45.0-75.0) Lymphocytes (%) (Auto) 16.6 % (20.0-45.0) L Monocytes (%) (Auto) 6.2 % (1.0-10.0) Eosinophils (%) (Auto) 2.4 % (0.0-3.0) Basophils (%) (Auto) 0.6 % (0.0-2.0) Microbiology Date/Time Source Procedure Growth Status 12/10/17 16:05 Urine,Clean Catch Urine Culture - Preliminary NO GROWTH Resulted 12/10/17 09:50 Indwelling Cath Urine Culture - Preliminary NO GROWTH Resulted Objective HEENT: Atraumatic and normocephalic. Anicteric. Pupils are equal, round, and reactive to light and accommodation. Dry mucosal membranes. NECK: JVP less than 5 cm. No carotid bruit. Carotid upstrokes 2+ bilaterally. CARDIOVASCULAR: Normal S1, S2. Regular rhythm. Cannot appreciate any murmurs, gallops, or rubs. LUNGS: Diminished breath sounds in both lungs. ABDOMEN: Soft, nontender, and nondistended. Diminished bowel sounds. Presence of G-tube. No hepatosplenomegaly. EXTREMITIES: Contraction and pressure protection. No edema, clubbing, or cyanosis. Luke Estrada MD Dec 12, 2017 01:10
[2017-12-12] MEDS: NovoLOG Insulin Flexpen SUBQ SCH ×4 (01:36→18:50)
[2017-12-12 04:00] VITALS: BP 148/86
--- NOTE | 2017-12-12 07:06 | General Progress Note ---
Assessment/Plan Problem List: (1) Renal failure (ARF), acute on chronic ICD Codes: N17.9 - Acute kidney failure, unspecified; N18.9 - Chronic kidney disease, unspecified SNOMED: 228743749 Qualifiers: Qualified Codes: N17.9 - Acute kidney failure, unspecified; N18.3 - Chronic kidney disease, stage 3 (moderate) (2) NSTEMI (non-ST elevated myocardial infarction) ICD Codes: I21.4 - Non-ST elevation (NSTEMI) myocardial infarction SNOMED: 042540209 (3) Hypernatremia ICD Codes: E87.0 - Hyperosmolality and hypernatremia SNOMED: 34019923 (4) DM (5) Rhabdomyolysis ICD Codes: M62.82 - Rhabdomyolysis SNOMED: 888569159 (6) Hypoxemia ICD Codes: R09.02 - Hypoxemia SNOMED: 665443736 (7) Severe sepsis ICD Codes: A41.9 - Sepsis, unspecified organism; R65.20 - Severe sepsis without septic shock SNOMED: 11330872 Assessment/Plan glucose values are stable - continue Levemir 6 units bid - continue NISS every 6 hours Subjective ROS Limited/Unobtainable: Yes Allergies: Coded Allergies: TERAZOSIN (Verified Allergy, Unknown, 10/27/17) Subjective events noted Objective Last 24 Hour Vital Signs Date Time Temp Pulse Resp B/P (MAP) Pulse Ox O2 Delivery O2 Flow Rate FiO2 12/12/17 04:32 88 21 100 Facial 30 12/12/17 04:00 98.2 97 26 148/86 (106) 99 12/12/17 04:00 88 12/12/17 02:34 95 25 99 Facial 30 12/12/17 00:00 99.1 88 24 155/87 (109) 98 12/12/17 00:00 88 12/11/17 21:00 Nasal Cannula 2.0 12/11/17 20:00 89 12/11/17 20:00 99.0 86 20 141/82 (101) 98 12/11/17 19:56 Nasal Cannula 2.0 28 12/11/17 19:56 98 Nasal Cannula 2.0 28 12/11/17 16:00 87 12/11/17 16:00 98.6 88 18 143/86 (105) 97 12/11/17 12:00 90 12/11/17 12:00 97.7 89 20 141/80 (100) 97 12/11/17 09:27 153/84 12/11/17 09:00 Nasal Cannula 2.0 12/11/17 08:20 Nasal Cannula 2.0 28 12/11/17 08:20 98 Nasal Cannula 2.0 28 12/11/17 08:00 92 12/11/17 08:00 98.4 92 18 153/84 (107) 95 Intake and Output 12/11/17 12/12/17 19:00 07:00 Intake Total 1257.5 ml 1515 ml Output Total 1150 ml 1150 ml Balance 107.5 ml 365 ml Free Water 290 ml 300 ml IV Total 187.5 ml 500 ml Tube Feeding 780 ml 715 ml Output Urine Total 950 ml 1000 ml Stool Total 200 ml 150 ml # Bowel Movements 1 Laboratory Tests 12/12/17 06:30: White Blood Count [Pending], Red Blood Count [Pending], Hemoglobin [Pending], Hematocrit [Pending], Mean Corpuscular Volume [Pending], Mean Corpuscular Hemoglobin [Pending], Mean Corpuscular Hemoglobin Concent [Pending], Red Cell Distribution Width [Pending], Platelet Count [Pending], Mean Platelet Volume [ Pending], Neutrophils (%) (Auto) [Pending], Lymphocytes (%) (Auto) [Pending], Monocytes (%) (Auto) [Pending], Eosinophils (%) (Auto) [Pending], Basophils (%) (Auto) [Pending], Sodium Level [Pending], Potassium Level [Pending], Chloride Level [Pending], Carbon Dioxide Level [Pending], Blood Urea Nitrogen [Pending], Creatinine [Pending], Estimat Glomerular Filtration Rate [Pending], Glucose Level [Pending], Calcium Level [Pending], Total Bilirubin [Pending], Aspartate Amino Transf (AST/SGOT) [Pending], Alanine Aminotransferase (ALT/SGPT) [Pending] , Alkaline Phosphatase [Pending], Total Protein [Pending], Albumin [Pending], Globulin [Pending] Height (Feet): 5 Height (Inches): 5.00 Weight (Pounds): 172 General Appearance: no apparent distress Neck: normal alignment Cardiovascular: normal rate Respiratory/Chest: decreased breath sounds Abdomen: normal bowel sounds, other - PEG Edema: no edema noted Arm (L), no edema noted Arm (R), no edema noted Leg (L), no edema noted Leg (R), no edema noted Pedal (L), no edema noted Pedal (R), no edema noted Generalized Objective Current Medications Medications (Trade) Dose Ordered Sig/Ruthie Route PRN Reason Start Time Stop Time Status Last Admin Dose Admin Aspirin (ASA) 162 mg DAILY NG 12/08/17 09:00 01/01/18 08:59 12/11/17 09:27 Atorvastatin Calcium (Lipitor) 40 mg BEDTIME ORAL 12/09/17 21:00 01/08/18 20:59 12/11/17 22:34 Chlorhexidine Gluconate (Rachael-Hex 2%) 1 applic DAILY@2000 TOPIC 12/08/17 20:00 01/03/18 19:59 12/11/17 21:02 Clonidine HCl (Catapres Tab) 0.1 mg Q4H PRN ORAL BLOOD PRESSURE 12/07/17 21:15 01/06/18 21:14 Dextrose (Dextrose 50%) 25 ml Q30M PRN IV Hypoglycemia 12/07/17 20:30 01/03/18 06:59 Dextrose (Dextrose 50%) 50 ml Q30M PRN IV Hypoglycemia 12/07/17 20:30 01/03/18 06:59 Dextrose/ Electrolytes 1,000 ml @ 50 mls/hr Q20H IV 12/07/17 20:30 01/03/18 10:46 12/11/17 18:00 Heparin Sodium (Porcine) (Heparin 5000 units/ml) 5,000 units EVERY 12 HOURS SUBQ 12/07/17 21:00 12/31/17 20:59 12/11/17 22:32 Insulin Aspart (NovoLOG) EVERY 6 HOURS SUBQ 12/08/17 00:00 01/01/18 20:59 12/12/17 06:03 Insulin Detemir (Levemir) 6 units BID SUBQ 12/10/17 18:00 01/07/18 08:59 12/11/17 18:17 Lansoprazole (Prevacid) 30 mg DAILY GT 12/10/17 09:00 01/09/18 08:59 12/11/17 09:26 Loperamide HCl (Imodium) 2 mg Q6H PRN NG Diarrhea 12/07/17 20:30 01/02/18 08:29 Nitroglycerin (Ntg) 1 patch Q24H TDERMAL 12/08/17 09:00 01/01/18 08:59 12/11/17 09:27 Quetiapine Fumarate (SEROquel) 12.5 mg Q4H PRN GT agitation 12/07/17 20:45 01/03/18 20:29 Sucralfate (Carafate) 1 gm BID GT 12/09/17 18:00 12/31/17 17:59 12/11/17 18:13 Item Value Date Time Bedside Blood Glucose 122 mg/dl H 12/12/17 0603 Bedside Blood Glucose 114 mg/dl 12/12/17 0136 Bedside Blood Glucose 104 mg/dl 12/11/17 1817 Bedside Blood Glucose 137 mg/dl H 12/11/17 1200 Bedside Blood Glucose 137 mg/dl H 12/11/17 0925 Bedside Blood Glucose 117 mg/dl 12/10/17 [id number] Stefan Leon MD Dec 12, 2017 07:06
[2017-12-12 07:19] LABS: BASOPHILS % (AUTO) 0.5 % (0.0-2.0); EOSINOPHILS % (AUTO) 2.4 % (0.0-3.0); HEMATOCRIT 28.2 % (42.0-52.0); HEMOGLOBIN 9.1 G/DL (14.2-18.0); LYMPHOCYTES % (AUTO) 12.3 % (20.0-45.0); MEAN CORPUSCULAR VOLUME 82 FL (80-99); MONOCYTES % (AUTO) 5.2 % (1.0-10.0); NEUTROPHILS % (AUTO) 79.6 % (45.0-75.0); PLATELET COUNT 361 K/UL (150-450); RED BLOOD COUNT 3.46 M/UL (4.70-6.10); RED CELL DISTRIBUTION WIDTH 15.8 % (11.6-14.8); WHITE BLOOD COUNT 11.1 K/UL (4.8-10.8)
--- NOTE | 2017-12-12 07:33 | General Progress Note ---
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 --> Anemia w/u has been reviewed. trend CBC daily as needed --> No evidence of hemolysis noted, peripheral smear has been reviewed --> Hgb goal >7. Transfuse as needed prn basis --> 1 unit ordered for 12/11 # Leukocytosis. Likely related to underlying infection vs reactive process. --> Imaging has been reviewed. Shows stable cardiomegaly. slight haziness of the pulmonary vascularity suggests mild interstitial edema. Unchanged elevation of the left hemidiaphragm. --> Blood cx and urine cx also reviewed --> on abx, empiric rx # Thrombocytopenia. Potential causes multifactorial, now better, several days was 50-100k, now has improved --> Hep panel negative and HIV is negative --> abd us shows no significant cirrhosis or hsm --> Abx and other meds have been reviewed --> Ok for ppx if heparin >50k with heparin sq --> currently appears to have stabilized # Constipation. KUB evaluate abdominal distention - No acute process. findings have been reviewed --> electrolyte correction --> prevacid GT --> bowel regime # Sepsis. # Malnutrition. --> s/p peg GREATLY APPRECIATE CONSULTATION. Subjective Allergies: Coded Allergies: TERAZOSIN (Verified Allergy, Unknown, 10/27/17) Subjective H/H stable. on TFs, on bipap this am, difficult to get much information Objective Last 24 Hour Vital Signs Date Time Temp Pulse Resp B/P (MAP) Pulse Ox O2 Delivery O2 Flow Rate FiO2 12/12/17 04:32 88 21 100 Facial 30 12/12/17 04:00 98.2 97 26 148/86 (106) 99 12/12/17 04:00 88 12/12/17 02:34 95 25 99 Facial 30 12/12/17 00:00 99.1 88 24 155/87 (109) 98 12/12/17 00:00 88 12/11/17 21:00 Nasal Cannula 2.0 12/11/17 20:00 89 12/11/17 20:00 99.0 86 20 141/82 (101) 98 12/11/17 19:56 Nasal Cannula 2.0 28 12/11/17 19:56 98 Nasal Cannula 2.0 28 12/11/17 16:00 87 12/11/17 16:00 98.6 88 18 143/86 (105) 97 12/11/17 12:00 90 12/11/17 12:00 97.7 89 20 141/80 (100) 97 12/11/17 09:27 153/84 12/11/17 09:00 Nasal Cannula 2.0 12/11/17 08:20 Nasal Cannula 2.0 28 12/11/17 08:20 98 Nasal Cannula 2.0 28 12/11/17 08:00 92 12/11/17 08:00 98.4 92 18 153/84 (107) 95 Intake and Output 12/11/17 12/12/17 19:00 07:00 Intake Total 1257.5 ml 1515 ml Output Total 1150 ml 1150 ml Balance 107.5 ml 365 ml Free Water 290 ml 300 ml IV Total 187.5 ml 500 ml Tube Feeding 780 ml 715 ml Output Urine Total 950 ml 1000 ml Stool Total 200 ml 150 ml # Bowel Movements 1 Laboratory Tests 12/12/17 06:30: White Blood Count 11.1H, Red Blood Count 3.46L, Hemoglobin 9.1L, Hematocrit 28.2L, Mean Corpuscular Volume 82, Mean Corpuscular Hemoglobin 26.4L, Mean Corpuscular Hemoglobin Concent 32.3, Red Cell Distribution Width 15.8H, Platelet Count 361, Mean Platelet Volume 6.1L, Neutrophils (%) (Auto) 79.6H, Lymphocytes (%) (Auto) 12.3L, Monocytes (%) (Auto) 5.2, Eosinophils (%) (Auto) 2.4, Basophils (%) (Auto) 0.5, Sodium Level [Pending], Potassium Level [Pending] , Chloride Level [Pending], Carbon Dioxide Level [Pending], Blood Urea Nitrogen [Pending], Creatinine [Pending], Estimat Glomerular Filtration Rate [Pending], Glucose Level [Pending], Calcium Level [Pending], Total Bilirubin [Pending], Aspartate Amino Transf (AST/SGOT) [Pending], Alanine Aminotransferase (ALT/SGPT ) [Pending], Alkaline Phosphatase [Pending], Total Protein [Pending], Albumin [ Pending], Globulin [Pending] Height (Feet): 5 Height (Inches): 5.00 Weight (Pounds): 172 General Appearance: WD/WN EENT: normal ENT inspection Objective NCAT supple CTA ++ bipap RRR abd soft , mildly distended, (+) GT edema all 4 extremities Beny Dalton MD Dec 12, 2017 07:33
[2017-12-12 07:36] LABS: ALANINE AMINOTRANSFERASE 84 U/L (12-78); ALBUMIN 1.8 G/DL (3.4-5.0); ALBUMIN/GLOBULIN RATIO 0.4 (1.0-2.7); ALKALINE PHOSPHATASE 91 U/L (46-116); ANION GAP 6 mmol/L (5-15); ASPARTATE AMINO TRANSFERASE 42 U/L (15-37); BILIRUBIN,TOTAL 0.3 MG/DL (0.2-1.0); BLOOD UREA NITROGEN 21 mg/dL (7-18); CALCIUM 8.1 MG/DL (8.5-10.1); CARBON DIOXIDE 23 MMOL/L (21-32); CHLORIDE 113 MMOL/L (98-107); CREATININE 1.3 MG/DL (0.55-1.30); POTASSIUM 4.7 MMOL/L (3.5-5.1); SODIUM 142 MMOL/L (136-145)
[2017-12-12 08:00] VITALS: BP 152/84
[2017-12-12] MEDS: Nitroglycerin Patch 0.4mg TDERMAL SCH (08:29)
[2017-12-12] MEDS: Aspirin Baby 81mg NG SCH (08:33)
[2017-12-12] MEDS: Sucralfate 1gm tab GT SCH ×2 (08:34→17:52)
[2017-12-12] MEDS: Heparin 5000 units/ml inj SUBQ SCH ×2 (08:35→21:06)
[2017-12-12] MEDS: Levemir Flexpen SUBQ SCH ×2 (08:36→18:49)
[2017-12-12 12:00] VITALS: BP 144/75
--- NOTE | 2017-12-12 12:14 | Infectious Diseases Prog Note ---
Assessment/Plan Assessment/Plan A; Sepsis, SIRS Pancreatitis Rhabdomyolysis Acute respiratory failure Acute renal failure improving Dehydration Elevated transaminase P: Observe off antibiotic Subjective ROS Limited/Unobtainable: Yes Constitutional: Reports: no symptoms Allergies: Coded Allergies: TERAZOSIN (Verified Allergy, Unknown, 10/27/17) Objective Vital Signs Last 24 Hour Vital Signs Date Time Temp Pulse Resp B/P (MAP) Pulse Ox O2 Delivery O2 Flow Rate FiO2 12/12/17 11:27 100 Nasal Cannula 2.0 28 12/12/17 11:26 Nasal Cannula 2.0 28 12/12/17 11:00 30 12/12/17 09:00 Bi-pap 12/12/17 08:29 152/84 12/12/17 08:00 99.7 93 23 152/84 (106) 99 12/12/17 08:00 30 12/12/17 08:00 30 12/12/17 07:51 91 12/12/17 04:32 88 21 100 Facial 30 12/12/17 04:00 98.2 97 26 148/86 (106) 99 12/12/17 04:00 88 12/12/17 02:34 95 25 99 Facial 30 12/12/17 00:00 99.1 88 24 155/87 (109) 98 12/12/17 00:00 88 12/11/17 21:00 Nasal Cannula 2.0 12/11/17 20:00 89 12/11/17 20:00 99.0 86 20 141/82 (101) 98 12/11/17 19:56 Nasal Cannula 2.0 28 12/11/17 19:56 98 Nasal Cannula 2.0 28 12/11/17 16:00 87 12/11/17 16:00 98.6 88 18 143/86 (105) 97 Height (Feet): 5 Height (Inches): 5.00 Weight (Pounds): 172 HEENT: mucous membranes moist Respiratory/Chest: lungs clear Cardiovascular: normal rate, other - R arm PICC line Abdomen: soft, non tender, other - GT & rectal tube Extremities: other - generalized edema Neurologic/Psychiatric: unresponsiveness, aphasia Microbiology Date/Time Source Procedure Growth Status 12/10/17 16:05 Urine,Clean Catch Urine Culture - Preliminary NO GROWTH AFTER 24 HOURS Resulted 12/10/17 09:50 Indwelling Cath Urine Culture - Preliminary NO GROWTH AFTER 24 HOURS Resulted Laboratory Tests Test 12/12/17 06:30 White Blood Count 11.1 K/UL (4.8-10.8) H Red Blood Count 3.46 M/UL (4.70-6.10) L Hemoglobin 9.1 G/DL (14.2-18.0) L Hematocrit 28.2 % (42.0-52.0) L Mean Corpuscular Volume 82 FL (80-99) Mean Corpuscular Hemoglobin 26.4 PG (27.0-31.0) L Mean Corpuscular Hemoglobin Concent 32.3 G/DL (32.0-36.0) Red Cell Distribution Width 15.8 % (11.6-14.8) H Platelet Count 361 K/UL (150-450) Mean Platelet Volume 6.1 FL (6.5-10.1) L Neutrophils (%) (Auto) 79.6 % (45.0-75.0) H Lymphocytes (%) (Auto) 12.3 % (20.0-45.0) L Monocytes (%) (Auto) 5.2 % (1.0-10.0) Eosinophils (%) (Auto) 2.4 % (0.0-3.0) Basophils (%) (Auto) 0.5 % (0.0-2.0) Sodium Level 142 MMOL/L (136-145) Potassium Level 4.7 MMOL/L (3.5-5.1) Chloride Level 113 MMOL/L (98-107) H Carbon Dioxide Level 23 MMOL/L (21-32) Anion Gap 6 mmol/L (5-15) Blood Urea Nitrogen 21 mg/dL (7-18) H Creatinine 1.3 MG/DL (0.55-1.30) Estimat Glomerular Filtration Rate mL/min (>60) Glucose Level 119 MG/DL (74-106) H Calcium Level 8.1 MG/DL (8.5-10.1) L Total Bilirubin 0.3 MG/DL (0.2-1.0) Aspartate Amino Transf (AST/SGOT) 42 U/L (15-37) H Alanine Aminotransferase (ALT/SGPT) 84 U/L (12-78) H Alkaline Phosphatase 91 U/L (46-116) Total Protein 6.6 G/DL (6.4-8.2) Albumin 1.8 G/DL (3.4-5.0) L Globulin 4.8 g/dL Albumin/Globulin Ratio 0.4 (1.0-2.7) L Current Medications Medications (Trade) Dose Ordered Sig/Ruthie Route PRN Reason Start Time Stop Time Status Last Admin Dose Admin Aspirin (ASA) 162 mg DAILY NG 12/08/17 09:00 01/01/18 08:59 12/12/17 08:33 Atorvastatin Calcium (Lipitor) 40 mg BEDTIME ORAL 12/09/17 21:00 01/08/18 20:59 12/11/17 22:34 Chlorhexidine Gluconate (Rachael-Hex 2%) 1 applic DAILY@2000 TOPIC 12/08/17 20:00 01/03/18 19:59 12/11/17 21:02 Clonidine HCl (Catapres Tab) 0.1 mg Q4H PRN ORAL BLOOD PRESSURE 12/07/17 21:15 01/06/18 21:14 Dextrose (Dextrose 50%) 25 ml Q30M PRN IV Hypoglycemia 12/07/17 20:30 01/03/18 06:59 Dextrose (Dextrose 50%) 50 ml Q30M PRN IV Hypoglycemia 12/07/17 20:30 01/03/18 06:59 Dextrose/ Electrolytes 1,000 ml @ 50 mls/hr Q20H IV 12/07/17 20:30 01/03/18 10:46 12/11/17 18:00 Heparin Sodium (Porcine) (Heparin 5000 units/ml) 5,000 units EVERY 12 HOURS SUBQ 12/07/17 21:00 12/31/17 20:59 12/12/17 08:35 Insulin Aspart (NovoLOG) EVERY 6 HOURS SUBQ 12/08/17 00:00 01/01/18 20:59 12/12/17 06:03 Insulin Detemir (Levemir) 6 units BID SUBQ 12/10/17 18:00 01/07/18 08:59 12/12/17 08:36 Lansoprazole (Prevacid) 30 mg DAILY GT 12/10/17 09:00 01/09/18 08:59 12/12/17 08:33 Loperamide HCl (Imodium) 2 mg Q6H PRN NG Diarrhea 12/07/17 20:30 01/02/18 08:29 Nitroglycerin (Ntg) 1 patch Q24H TDERMAL 12/08/17 09:00 01/01/18 08:59 12/12/17 08:29 Quetiapine Fumarate (SEROquel) 12.5 mg Q4H PRN GT agitation 12/07/17 20:45 01/03/18 20:29 Sucralfate (Carafate) 1 gm BID GT 12/09/17 18:00 12/31/17 17:59 12/12/17 08:34 Anam Cruz MD Dec 12, 2017 12:14
--- NOTE | 2017-12-12 12:57 | General Progress Note ---
Assessment/Plan Problem List: (1) Encephalopathy due to metabolic factor or toxin SNOMED: 224085242 Status: stable Assessment/Plan Seroquel prn dw staff provided ro/st Subjective Date patient seen: Dec 12, 2017 Neurologic/Psychiatric: Reports: anxiety Allergies: Coded Allergies: TERAZOSIN (Verified Allergy, Unknown, 10/27/17) Subjective nad the pt is on bipap/ Objective Last 24 Hour Vital Signs Date Time Temp Pulse Resp B/P (MAP) Pulse Ox O2 Delivery O2 Flow Rate FiO2 12/12/17 12:00 99.0 94 20 144/75 (98) 99 12/12/17 11:27 100 Nasal Cannula 2.0 28 12/12/17 11:26 Nasal Cannula 2.0 28 12/12/17 11:00 30 12/12/17 09:00 Bi-pap 12/12/17 08:29 152/84 12/12/17 08:00 99.7 93 23 152/84 (106) 99 12/12/17 08:00 30 12/12/17 08:00 30 12/12/17 07:51 91 12/12/17 04:32 88 21 100 Facial 30 12/12/17 04:00 98.2 97 26 148/86 (106) 99 12/12/17 04:00 88 12/12/17 02:34 95 25 99 Facial 30 12/12/17 00:00 99.1 88 24 155/87 (109) 98 12/12/17 00:00 88 12/11/17 21:00 Nasal Cannula 2.0 12/11/17 20:00 89 12/11/17 20:00 99.0 86 20 141/82 (101) 98 12/11/17 19:56 Nasal Cannula 2.0 28 12/11/17 19:56 98 Nasal Cannula 2.0 28 12/11/17 16:00 87 12/11/17 16:00 98.6 88 18 143/86 (105) 97 Intake and Output 12/11/17 12/12/17 19:00 07:00 Intake Total 1257.5 ml 1515 ml Output Total 1150 ml 1150 ml Balance 107.5 ml 365 ml Free Water 290 ml 300 ml IV Total 187.5 ml 500 ml Tube Feeding 780 ml 715 ml Output Urine Total 950 ml 1000 ml Stool Total 200 ml 150 ml # Bowel Movements 1 Laboratory Tests 12/12/17 06:30: White Blood Count 11.1H, Red Blood Count 3.46L, Hemoglobin 9.1L, Hematocrit 28.2L, Mean Corpuscular Volume 82, Mean Corpuscular Hemoglobin 26.4L, Mean Corpuscular Hemoglobin Concent 32.3, Red Cell Distribution Width 15.8H, Platelet Count 361, Mean Platelet Volume 6.1L, Neutrophils (%) (Auto) 79.6H, Lymphocytes (%) (Auto) 12.3L, Monocytes (%) (Auto) 5.2, Eosinophils (%) (Auto) 2.4, Basophils (%) (Auto) 0.5, Sodium Level 142, Potassium Level 4.7, Chloride Level 113H, Carbon Dioxide Level 23, Anion Gap 6, Blood Urea Nitrogen 21H, Creatinine 1.3, Estimat Glomerular Filtration Rate , Glucose Level 119H, Calcium Level 8.1L, Total Bilirubin 0.3, Aspartate Amino Transf (AST/SGOT) 42H, Alanine Aminotransferase (ALT/SGPT) 84H, Alkaline Phosphatase 91, Total Protein 6.6, Albumin 1.8L, Globulin 4.8, Albumin/Globulin Ratio 0.4L Height (Feet): 5 Height (Inches): 5.00 Weight (Pounds): 172 General Appearance: no apparent distress, alert, confused Lauren Santoyo MD Dec 12, 2017 12:57
--- NOTE | 2017-12-12 14:56 | GI Progress Note ---
Assessment/Plan Problems: (1) Malnutrition ICD Codes: E46 - Unspecified protein-calorie malnutrition SNOMED: 58286703 (2) Pancreatitis ICD Codes: K85.90 - Acute pancreatitis without necrosis or infection, unspecified SNOMED: 33971594 Qualifiers: Qualified Codes: K85.90 - Acute pancreatitis without necrosis or infection, unspecified (3) Constipation ICD Codes: K59.00 - Constipation, unspecified SNOMED: 10488773 (4) PEG (percutaneous endoscopic gastrostomy) status ICD Codes: Z93.1 - Gastrostomy status SNOMED: 414268271, 509679390 (5) DM (6) Severe sepsis ICD Codes: A41.9 - Sepsis, unspecified organism; R65.20 - Severe sepsis without septic shock SNOMED: 26240211 Status: stable Status Narrative Discussed with Dr. Coronel. Assessment/Plan transaminitis >> hep panel negative prn transfusions on GTF Imodium prn rectal tube fu nephrology fu labs ppi BID trend LFTs The patient was seen and examined at bedside and all new and available data was reviewed in the patients chart. I agree with the above findings, impression and plan. (Patient seen earlier today. Signature stamp does not reflect patient encounter time.). - Juan Coronel MD Subjective Subjective limited Objective Last 24 Hour Vital Signs Date Time Temp Pulse Resp B/P (MAP) Pulse Ox O2 Delivery O2 Flow Rate FiO2 12/12/17 12:00 99.0 94 20 144/75 (98) 99 12/12/17 11:27 100 Nasal Cannula 2.0 28 12/12/17 11:26 Nasal Cannula 2.0 28 12/12/17 11:24 96 12/12/17 11:00 30 12/12/17 09:00 Bi-pap 12/12/17 08:29 152/84 12/12/17 08:00 99.7 93 23 152/84 (106) 99 12/12/17 08:00 30 12/12/17 08:00 30 12/12/17 07:51 91 12/12/17 04:32 88 21 100 Facial 30 12/12/17 04:00 98.2 97 26 148/86 (106) 99 12/12/17 04:00 88 12/12/17 02:34 95 25 99 Facial 30 12/12/17 00:00 99.1 88 24 155/87 (109) 98 12/12/17 00:00 88 12/11/17 21:00 Nasal Cannula 2.0 12/11/17 20:00 89 12/11/17 20:00 99.0 86 20 141/82 (101) 98 12/11/17 19:56 Nasal Cannula 2.0 28 12/11/17 19:56 98 Nasal Cannula 2.0 28 12/11/17 16:00 87 12/11/17 16:00 98.6 88 18 143/86 (105) 97 Intake and Output 12/11/17 12/12/17 18:59 06:59 Intake Total 1207.5 ml 1630 ml Output Total 1150 ml 1150 ml Balance 57.5 ml 480 ml Free Water 290 ml 300 ml IV Total 137.5 ml 550 ml Tube Feeding 780 ml 780 ml Output Urine Total 950 ml 1000 ml Stool Total 200 ml 150 ml # Bowel Movements 1 Laboratory Tests Test 12/12/17 06:30 White Blood Count 11.1 K/UL (4.8-10.8) H Red Blood Count 3.46 M/UL (4.70-6.10) L Hemoglobin 9.1 G/DL (14.2-18.0) L Hematocrit 28.2 % (42.0-52.0) L Mean Corpuscular Volume 82 FL (80-99) Mean Corpuscular Hemoglobin 26.4 PG (27.0-31.0) L Mean Corpuscular Hemoglobin Concent 32.3 G/DL (32.0-36.0) Red Cell Distribution Width 15.8 % (11.6-14.8) H Platelet Count 361 K/UL (150-450) Mean Platelet Volume 6.1 FL (6.5-10.1) L Neutrophils (%) (Auto) 79.6 % (45.0-75.0) H Lymphocytes (%) (Auto) 12.3 % (20.0-45.0) L Monocytes (%) (Auto) 5.2 % (1.0-10.0) Eosinophils (%) (Auto) 2.4 % (0.0-3.0) Basophils (%) (Auto) 0.5 % (0.0-2.0) Sodium Level 142 MMOL/L (136-145) Potassium Level 4.7 MMOL/L (3.5-5.1) Chloride Level 113 MMOL/L (98-107) H Carbon Dioxide Level 23 MMOL/L (21-32) Anion Gap 6 mmol/L (5-15) Blood Urea Nitrogen 21 mg/dL (7-18) H Creatinine 1.3 MG/DL (0.55-1.30) Estimat Glomerular Filtration Rate mL/min (>60) Glucose Level 119 MG/DL (74-106) H Calcium Level 8.1 MG/DL (8.5-10.1) L Total Bilirubin 0.3 MG/DL (0.2-1.0) Aspartate Amino Transf (AST/SGOT) 42 U/L (15-37) H Alanine Aminotransferase (ALT/SGPT) 84 U/L (12-78) H Alkaline Phosphatase 91 U/L (46-116) Total Protein 6.6 G/DL (6.4-8.2) Albumin 1.8 G/DL (3.4-5.0) L Globulin 4.8 g/dL Albumin/Globulin Ratio 0.4 (1.0-2.7) L Height (Feet): 5 Height (Inches): 5.00 Weight (Pounds): 172 General Appearance: no apparent distress Cardiovascular: normal rate Respiratory/Chest: normal breath sounds, no respiratory distress Abdominal Exam: normal bowel sounds, non tender, soft, GT site Extremities: non-tender Kishan Hopkins NP Dec 12, 2017 14:56
--- NOTE | 2017-12-12 14:56 | Nephrology Progress Note ---
Assessment/Plan Problem List: (1) Renal failure (ARF), acute on chronic (2) Respiratory failure (3) Hypernatremia (4) Rhabdomyolysis (5) DM Assessment Acute respiratory failure- now extubated, but on BIPAP again Acute Renal failure- Severe Dehydration PEG Sepsis / UTI / Pneumonia Hypotension- Septic Shock High Lipase Rhabdo- High CPK Elevated Troponin Dementia Plan DC midodrine- transfusion pulmonary support change IV rate- K supplement as needed check am vanco levels monitor CK post extubation care Gastric support Antibiotics Monitor renal parameters Per orders Subjective ROS Limited/Unobtainable: No Constitutional: Reports: malaise Objective Objective Last 24 Hour Vital Signs Date Time Temp Pulse Resp B/P (MAP) Pulse Ox O2 Delivery O2 Flow Rate FiO2 12/12/17 12:00 99.0 94 20 144/75 (98) 99 12/12/17 11:27 100 Nasal Cannula 2.0 28 12/12/17 11:26 Nasal Cannula 2.0 28 12/12/17 11:24 96 12/12/17 11:00 30 12/12/17 09:00 Bi-pap 12/12/17 08:29 152/84 12/12/17 08:00 99.7 93 23 152/84 (106) 99 12/12/17 08:00 30 12/12/17 08:00 30 12/12/17 07:51 91 12/12/17 04:32 88 21 100 Facial 30 12/12/17 04:00 98.2 97 26 148/86 (106) 99 12/12/17 04:00 88 12/12/17 02:34 95 25 99 Facial 30 12/12/17 00:00 99.1 88 24 155/87 (109) 98 12/12/17 00:00 88 12/11/17 21:00 Nasal Cannula 2.0 12/11/17 20:00 89 12/11/17 20:00 99.0 86 20 141/82 (101) 98 12/11/17 19:56 Nasal Cannula 2.0 28 12/11/17 19:56 98 Nasal Cannula 2.0 28 12/11/17 16:00 87 12/11/17 16:00 98.6 88 18 143/86 (105) 97 Intake and Output 12/11/17 12/12/17 18:59 06:59 Intake Total 1207.5 ml 1630 ml Output Total 1150 ml 1150 ml Balance 57.5 ml 480 ml Free Water 290 ml 300 ml IV Total 137.5 ml 550 ml Tube Feeding 780 ml 780 ml Output Urine Total 950 ml 1000 ml Stool Total 200 ml 150 ml # Bowel Movements 1 Laboratory Tests 12/12/17 06:30: White Blood Count 11.1H, Red Blood Count 3.46L, Hemoglobin 9.1L, Hematocrit 28.2L, Mean Corpuscular Volume 82, Mean Corpuscular Hemoglobin 26.4L, Mean Corpuscular Hemoglobin Concent 32.3, Red Cell Distribution Width 15.8H, Platelet Count 361, Mean Platelet Volume 6.1L, Neutrophils (%) (Auto) 79.6H, Lymphocytes (%) (Auto) 12.3L, Monocytes (%) (Auto) 5.2, Eosinophils (%) (Auto) 2.4, Basophils (%) (Auto) 0.5, Sodium Level 142, Potassium Level 4.7, Chloride Level 113H, Carbon Dioxide Level 23, Anion Gap 6, Blood Urea Nitrogen 21H, Creatinine 1.3, Estimat Glomerular Filtration Rate , Glucose Level 119H, Calcium Level 8.1L, Total Bilirubin 0.3, Aspartate Amino Transf (AST/SGOT) 42H, Alanine Aminotransferase (ALT/SGPT) 84H, Alkaline Phosphatase 91, Total Protein 6.6, Albumin 1.8L, Globulin 4.8, Albumin/Globulin Ratio 0.4L Height (Feet): 5 Height (Inches): 5.00 Weight (Pounds): 172 General Appearance: mild distress Cardiovascular: bradycardia Respiratory/Chest: decreased breath sounds Abdomen: distended Objective no other change Randolph Fernandes MD Dec 12, 2017 14:56
[2017-12-12] MEDS: D5W w/KCl 20mEq 1,000 ML IV SCH (15:00)
[2017-12-12 15:07] LABS: CREATINE KINASE 195 U/L (26-308)
--- NOTE | 2017-12-12 15:09 | Pulmonology Progress Note ---
Assessment/Plan Problems: (1) Encephalopathy due to metabolic factor or toxin (2) Sacral decubitus ulcer (3) UTI (urinary tract infection) (4) Pneumonia (5) Renal failure (ARF), acute on chronic (6) Rhabdomyolysis (7) DM (8) Hypernatremia (9) NSTEMI (non-ST elevated myocardial infarction) (10) Severe sepsis (11) Respiratory failure (12) Pancreatitis (13) Malnutrition (14) Constipation Assessment/Plan CXR ABG Optimize pulmonary hygiene/mobilize as tolerated Titrate down FiO2 to keep SaO2 > 92% PRN HHN's PRN BiPAP Observe off Abx per ID Off Midodrine Monitor volumes and electrolytes,SLIV - lasix 20 IV x 1 TF's ONLY WHEN RESPIRATORY STATUS STABLE OFF BiPAP DVT Px: Hep SQ Glycemic control Subjective Allergies: Coded Allergies: TERAZOSIN (Verified Allergy, Unknown, 10/27/17) Subjective AFVSS, stable on 2L but was on BiPAP O/N Transferred to [facility] + cough + congestion Objective Last 24 Hour Vital Signs Date Time Temp Pulse Resp B/P (MAP) Pulse Ox O2 Delivery O2 Flow Rate FiO2 12/12/17 12:00 99.0 94 20 144/75 (98) 99 12/12/17 11:27 100 Nasal Cannula 2.0 28 12/12/17 11:26 Nasal Cannula 2.0 28 12/12/17 11:24 96 12/12/17 11:00 30 12/12/17 09:00 Bi-pap 12/12/17 08:29 152/84 12/12/17 08:00 99.7 93 23 152/84 (106) 99 12/12/17 08:00 30 12/12/17 08:00 30 12/12/17 07:51 91 12/12/17 04:32 88 21 100 Facial 30 12/12/17 04:00 98.2 97 26 148/86 (106) 99 12/12/17 04:00 88 12/12/17 02:34 95 25 99 Facial 30 12/12/17 00:00 99.1 88 24 155/87 (109) 98 12/12/17 00:00 88 12/11/17 21:00 Nasal Cannula 2.0 12/11/17 20:00 89 12/11/17 20:00 99.0 86 20 141/82 (101) 98 12/11/17 19:56 Nasal Cannula 2.0 28 12/11/17 19:56 98 Nasal Cannula 2.0 28 12/11/17 16:00 87 12/11/17 16:00 98.6 88 18 143/86 (105) 97 Intake and Output 12/11/17 12/12/17 19:00 07:00 Intake Total 1257.5 ml 1515 ml Output Total 1150 ml 1150 ml Balance 107.5 ml 365 ml Free Water 290 ml 300 ml IV Total 187.5 ml 500 ml Tube Feeding 780 ml 715 ml Output Urine Total 950 ml 1000 ml Stool Total 200 ml 150 ml # Bowel Movements 1 General Appearance: cachetic HEENT: normocephalic, atraumatic, anicteric, mucous membranes moist Respiratory/Chest: rhonchi Cardiovascular: normal peripheral pulses, normal rate, regular rhythm Abdomen: normal bowel sounds, soft, non tender, no organomegaly, non distended , no mass, other - GT Extremities: no cyanosis, no clubbing, no edema Microbiology Date/Time Source Procedure Growth Status 12/10/17 16:05 Urine,Clean Catch Urine Culture - Preliminary NO GROWTH AFTER 24 HOURS Resulted 12/10/17 09:50 Indwelling Cath Urine Culture - Preliminary NO GROWTH AFTER 24 HOURS Resulted Laboratory Tests 12/12/17 06:30: White Blood Count 11.1H, Red Blood Count 3.46L, Hemoglobin 9.1L, Hematocrit 28.2L, Mean Corpuscular Volume 82, Mean Corpuscular Hemoglobin 26.4L, Mean Corpuscular Hemoglobin Concent 32.3, Red Cell Distribution Width 15.8H, Platelet Count 361, Mean Platelet Volume 6.1L, Neutrophils (%) (Auto) 79.6H, Lymphocytes (%) (Auto) 12.3L, Monocytes (%) (Auto) 5.2, Eosinophils (%) (Auto) 2.4, Basophils (%) (Auto) 0.5, Sodium Level 142, Potassium Level 4.7, Chloride Level 113H, Carbon Dioxide Level 23, Anion Gap 6, Blood Urea Nitrogen 21H, Creatinine 1.3, Estimat Glomerular Filtration Rate , Glucose Level 119H, Calcium Level 8.1L, Total Bilirubin 0.3, Aspartate Amino Transf (AST/SGOT) 42H, Alanine Aminotransferase (ALT/SGPT) 84H, Alkaline Phosphatase 91, Total Creatine Kinase [Pending], Total Protein 6.6, Albumin 1.8L, Globulin 4.8, Albumin/Globulin Ratio 0.4L Current Medications Medications (Trade) Dose Ordered Sig/Ruthie Route PRN Reason Start Time Stop Time Status Last Admin Dose Admin Aspirin (ASA) 162 mg DAILY NG 12/13/17 09:00 01/01/18 08:59 Atorvastatin Calcium (Lipitor) 40 mg BEDTIME ORAL 12/12/17 21:00 01/08/18 20:59 Chlorhexidine Gluconate (Rachael-Hex 2%) 1 applic DAILY@2000 TOPIC 12/12/17 20:00 01/03/18 19:59 Clonidine HCl (Catapres Tab) 0.1 mg Q4H PRN ORAL BLOOD PRESSURE 12/12/17 15:00 01/06/18 14:59 Dextrose (Dextrose 50%) 25 ml Q30M PRN IV Hypoglycemia 12/12/17 14:30 01/03/18 06:59 Dextrose (Dextrose 50%) 50 ml Q30M PRN IV Hypoglycemia 12/12/17 14:30 01/03/18 06:59 Dextrose/ Electrolytes 1,000 ml @ 50 mls/hr Q20H IV 12/12/17 15:00 01/03/18 14:59 Heparin Sodium (Porcine) (Heparin 5000 units/ml) 5,000 units EVERY 12 HOURS SUBQ 12/12/17 21:00 12/31/17 20:59 Insulin Aspart (NovoLOG) EVERY 6 HOURS SUBQ 12/12/17 18:00 01/01/18 20:59 Insulin Detemir (Levemir) 6 units BID SUBQ 12/12/17 18:00 01/07/18 08:59 Lansoprazole (Prevacid) 30 mg DAILY GT 12/13/17 09:00 01/09/18 08:59 Loperamide HCl (Imodium) 2 mg Q6H PRN NG Diarrhea 12/12/17 14:30 01/02/18 08:29 Nitroglycerin (Ntg) 1 patch Q24H TDERMAL 12/13/17 09:00 01/01/18 08:59 Quetiapine Fumarate (SEROquel) 12.5 mg Q4H PRN GT agitation 12/12/17 15:00 01/03/18 14:59 Sucralfate (Carafate) 1 gm BID GT 12/12/17 18:00 12/31/17 17:59 Fantasma Nielsen MD Dec 12, 2017 15:09
[2017-12-12] MEDS ORDERED: Albuterol/Ipratropium 3ml neb HHN PRN (15:15)
--- NOTE | 2017-12-12 15:22 | General Surgery Progress Note ---
General Surgery-Progress Note Subjective Additional Comments improving. no acute events. Objective Last 24 Hour Vital Signs Date Time Temp Pulse Resp B/P (MAP) Pulse Ox O2 Delivery O2 Flow Rate FiO2 12/12/17 12:00 99.0 94 20 144/75 (98) 99 12/12/17 11:27 100 Nasal Cannula 2.0 28 12/12/17 11:26 Nasal Cannula 2.0 28 12/12/17 11:24 96 12/12/17 11:00 30 12/12/17 09:00 Bi-pap 12/12/17 08:29 152/84 12/12/17 08:00 99.7 93 23 152/84 (106) 99 12/12/17 08:00 30 12/12/17 08:00 30 12/12/17 07:51 91 12/12/17 04:32 88 21 100 Facial 30 12/12/17 04:00 98.2 97 26 148/86 (106) 99 12/12/17 04:00 88 12/12/17 02:34 95 25 99 Facial 30 12/12/17 00:00 99.1 88 24 155/87 (109) 98 12/12/17 00:00 88 12/11/17 21:00 Nasal Cannula 2.0 12/11/17 20:00 89 12/11/17 20:00 99.0 86 20 141/82 (101) 98 12/11/17 19:56 Nasal Cannula 2.0 28 12/11/17 19:56 98 Nasal Cannula 2.0 28 12/11/17 16:00 87 12/11/17 16:00 98.6 88 18 143/86 (105) 97 I&O Intake and Output 12/11/17 12/12/17 18:59 06:59 Intake Total 1207.5 ml 1630 ml Output Total 1150 ml 1150 ml Balance 57.5 ml 480 ml Free Water 290 ml 300 ml IV Total 137.5 ml 550 ml Tube Feeding 780 ml 780 ml Output Urine Total 950 ml 1000 ml Stool Total 200 ml 150 ml # Bowel Movements 1 Dressing: saturated Wound: clean Drains: other Cardiovascular: RSR Respiratory: clear Abdomen: soft, present bowel sounds Extremities: other Laboratory Tests Test 12/12/17 06:30 White Blood Count 11.1 K/UL (4.8-10.8) H Red Blood Count 3.46 M/UL (4.70-6.10) L Hemoglobin 9.1 G/DL (14.2-18.0) L Hematocrit 28.2 % (42.0-52.0) L Mean Corpuscular Volume 82 FL (80-99) Mean Corpuscular Hemoglobin 26.4 PG (27.0-31.0) L Mean Corpuscular Hemoglobin Concent 32.3 G/DL (32.0-36.0) Red Cell Distribution Width 15.8 % (11.6-14.8) H Platelet Count 361 K/UL (150-450) Mean Platelet Volume 6.1 FL (6.5-10.1) L Neutrophils (%) (Auto) 79.6 % (45.0-75.0) H Lymphocytes (%) (Auto) 12.3 % (20.0-45.0) L Monocytes (%) (Auto) 5.2 % (1.0-10.0) Eosinophils (%) (Auto) 2.4 % (0.0-3.0) Basophils (%) (Auto) 0.5 % (0.0-2.0) Sodium Level 142 MMOL/L (136-145) Potassium Level 4.7 MMOL/L (3.5-5.1) Chloride Level 113 MMOL/L (98-107) H Carbon Dioxide Level 23 MMOL/L (21-32) Anion Gap 6 mmol/L (5-15) Blood Urea Nitrogen 21 mg/dL (7-18) H Creatinine 1.3 MG/DL (0.55-1.30) Estimat Glomerular Filtration Rate mL/min (>60) Glucose Level 119 MG/DL (74-106) H Calcium Level 8.1 MG/DL (8.5-10.1) L Total Bilirubin 0.3 MG/DL (0.2-1.0) Aspartate Amino Transf (AST/SGOT) 42 U/L (15-37) H Alanine Aminotransferase (ALT/SGPT) 84 U/L (12-78) H Alkaline Phosphatase 91 U/L (46-116) Total Creatine Kinase 195 U/L (26-308) Total Protein 6.6 G/DL (6.4-8.2) Albumin 1.8 G/DL (3.4-5.0) L Globulin 4.8 g/dL Albumin/Globulin Ratio 0.4 (1.0-2.7) L Plan Problems: (1) Sacral decubitus ulcer Assessment & Plan: Pt present with two full thickness pressure injuries to R and L sacrum with encompassing dark induration to an area of (L)13cm x(W)9.5cm. R sacrum pressure injury(L)4.3cmx(W)2.1cm .Wound bed moist,granular. L sacrum full thickness pressure injury(L)3.8cm x (W)2.5cm,wound bed moist, clean- granular.DTPI noted to L trochanter(L)7cm x (W)7.5cm.Site is dark with numerous blood filled blisters and reabsorbed blisters. Cat. 3 skin skin tear with full flap loss noted to dorsal R knee (L)6.5cm x (W)2cm.small amt serosanguineous exudate noted .Periwound skin is clean and intact. smaller skin tear noted to medial aspect of r Knee (L)1.1cm x (W)0.2cm.Non blanchable erythema noted to R heel without fluctuation (L)7.4cm x (W)8cm.Maroon discoloration that is fluctuant in center noted to lateral L heel (L)4cm x (W)4.7cm.erythema noted along borders.Indurated dark area with erythema along borders noted to medial L heel (L)6cm x (W)5.5cm. Sacral wound resolving(L)3.8cm x (W)5.5cm.Wound bed granular with epithelialized borders .No odor or exudate .Darker skin tone periwound without induration or erythema.Resolving blister ranjana/medial R knee (L)6.3cm x (W) 1.5cm . Reabsorbing blood blister L trochanter (L)4cm x (W)3cm . Wound with small opening ,no exudate noted .Periwound without erythema noted. NO new skin concerns noted.All preventive protocols continued as ordered. Tx.Plan: Cleanse sacral wound with Saline.Apply Hydrogel to wounds R and L sacrum .Apply Cavilon to dark areas.Cover with Optifoam drsg Daily and prn. Cleanse Skin tears R knee with Saline.Apply Silvasorb gel .Cover with Optifoam drsg .Change every 7 days and prn. Apply Cavilon Barrier wipe to R heel .Cover with Optifoam change weekly and prn. Apply Cavilon Barrier wipe to medial and lateral L heel and cover with Optifoam drsg.Change weekly and prn. Apply Cavilon wipe to L trochanter and cover with Optifoam drsg .Change weekly and prn. Reposition at least every 2 hours or as tolerated. Air fluidized mattress. Off-load heels with pillow. Don Carvalho Dec 12, 2017 15:22
[2017-12-12 16:00] VITALS: BP 139/69
[2017-12-12] MEDS: Albuterol/Ipratropium 3ml neb HHN SCH (19:43)
[2017-12-12 20:00] VITALS: BP 143/68
[2017-12-12] MEDS: Atorvastatin 20mg tab ORAL SCH (21:03)
[2017-12-12] MEDS: Dyna-Hex 2% Top Sol 2oz TOPIC SCH (21:03)
--- NOTE | 2017-12-12 21:15 | General Progress Note ---
Assessment/Plan Problem List: (1) Hypoxemia ICD Codes: R09.02 - Hypoxemia SNOMED: 345650242 (2) Pneumonia ICD Codes: J18.9 - Pneumonia, unspecified organism SNOMED: 539137228 (3) Malnutrition ICD Codes: E46 - Unspecified protein-calorie malnutrition SNOMED: 71342543 (4) Renal failure (ARF), acute on chronic ICD Codes: N17.9 - Acute kidney failure, unspecified; N18.9 - Chronic kidney disease, unspecified SNOMED: 387098811 Qualifiers: Qualified Codes: N17.9 - Acute kidney failure, unspecified; N18.3 - Chronic kidney disease, stage 3 (moderate) (5) Respiratory failure ICD Codes: J96.90 - Respiratory failure, unspecified, unspecified whether with hypoxia or hypercapnia SNOMED: 760606542 Qualifiers: Qualified Codes: J96.00 - Acute respiratory failure, unspecified whether with hypoxia or hypercapnia (6) Severe sepsis ICD Codes: A41.9 - Sepsis, unspecified organism; R65.20 - Severe sepsis without septic shock SNOMED: 20420799 (7) UTI (urinary tract infection) ICD Codes: N39.0 - Urinary tract infection, site not specified SNOMED: 86135657 Qualifiers: Qualified Codes: N39.0 - Urinary tract infection, site not specified (8) NSTEMI (non-ST elevated myocardial infarction) ICD Codes: I21.4 - Non-ST elevation (NSTEMI) myocardial infarction SNOMED: 054063295 (9) Hypernatremia ICD Codes: E87.0 - Hyperosmolality and hypernatremia SNOMED: 29686819 (10) DM (11) Rhabdomyolysis ICD Codes: M62.82 - Rhabdomyolysis SNOMED: 819344749 Status: unchanged Assessment/Plan transferred to [facility] for continous bipap not stable for dc abx per id bph r/p urinary stricture dehydration improving sepsis nstemi resolved Subjective Respiratory: Reports: shortness of breath Allergies: Coded Allergies: TERAZOSIN (Verified Allergy, Unknown, 10/27/17) Objective Last 24 Hour Vital Signs Date Time Temp Pulse Resp B/P (MAP) Pulse Ox O2 Delivery O2 Flow Rate FiO2 12/12/17 19:46 Nasal Cannula 2.0 28 12/12/17 19:45 100 Nasal Cannula 2.0 28 12/12/17 19:44 98 20 100 Nasal Cannula 2.0 28 12/12/17 19:33 91 20 99 Nasal Cannula 2.0 28 12/12/17 16:43 98 12/12/17 16:00 99.7 94 18 139/69 (92) 100 12/12/17 16:00 2.0 12/12/17 12:00 99.0 94 20 144/75 (98) 99 12/12/17 11:27 100 Nasal Cannula 2.0 28 12/12/17 11:26 Nasal Cannula 2.0 28 12/12/17 11:24 96 12/12/17 11:00 30 12/12/17 09:00 Bi-pap 12/12/17 08:29 152/84 12/12/17 08:00 99.7 93 23 152/84 (106) 99 12/12/17 08:00 30 12/12/17 08:00 30 12/12/17 07:51 91 12/12/17 04:32 88 21 100 Facial 30 12/12/17 04:00 98.2 97 26 148/86 (106) 99 12/12/17 04:00 88 12/12/17 02:34 95 25 99 Facial 30 12/12/17 00:00 99.1 88 24 155/87 (109) 98 12/12/17 00:00 88 Intake and Output 12/11/17 12/12/17 18:59 06:59 Intake Total 1207.5 ml 1630 ml Output Total 1150 ml 1150 ml Balance 57.5 ml 480 ml Free Water 290 ml 300 ml IV Total 137.5 ml 550 ml Tube Feeding 780 ml 780 ml Output Urine Total 950 ml 1000 ml Stool Total 200 ml 150 ml # Bowel Movements 1 Laboratory Tests 12/12/17 06:30: White Blood Count 11.1H, Red Blood Count 3.46L, Hemoglobin 9.1L, Hematocrit 28.2L, Mean Corpuscular Volume 82, Mean Corpuscular Hemoglobin 26.4L, Mean Corpuscular Hemoglobin Concent 32.3, Red Cell Distribution Width 15.8H, Platelet Count 361, Mean Platelet Volume 6.1L, Neutrophils (%) (Auto) 79.6H, Lymphocytes (%) (Auto) 12.3L, Monocytes (%) (Auto) 5.2, Eosinophils (%) (Auto) 2.4, Basophils (%) (Auto) 0.5, Sodium Level 142, Potassium Level 4.7, Chloride Level 113H, Carbon Dioxide Level 23, Anion Gap 6, Blood Urea Nitrogen 21H, Creatinine 1.3, Estimat Glomerular Filtration Rate , Glucose Level 119H, Calcium Level 8.1L, Total Bilirubin 0.3, Aspartate Amino Transf (AST/SGOT) 42H, Alanine Aminotransferase (ALT/SGPT) 84H, Alkaline Phosphatase 91, Total Creatine Kinase 195, Total Protein 6.6, Albumin 1.8L, Globulin 4.8, Albumin/ Globulin Ratio 0.4L 12/12/17 15:34: Arterial Blood pH 7.457H, Arterial Blood Partial Pressure CO2 31.1L, Arterial Blood Partial Pressure O2 66.9L, Arterial Blood HCO3 21.5L, Arterial Blood Oxygen Saturation 93.1L, Arterial Blood Base Excess -1.8, Ebenezer Test Positive Height (Feet): 5 Height (Inches): 5.00 Weight (Pounds): 172 Respiratory/Chest: crackles/rales Trish Matias MD Dec 12, 2017 21:15
--- NOTE | 2017-12-12 23:54 | Cardiology Progress Note ---
Assessment/Plan Assessment/Plan 1. Septic shock in combination with hypovolemic shock, continue IV fluid. 2. Sinus tachycardia, improved, most likely secondary to severe intravascular volume depletion, currently on appropriate fluid administration. 3. Slight elevation of troponin I level could be of a variety of etiologies in this patient, although [id number] myocardial infarction type 2 due to demand ischemia should be considered. Continue ASA, statins not suggested for now due to transaminitis. 4. HTN, start low dose B-blockers. Subjective Subjective Sinus rhythm at rate of 98. Objective Last 24 Hour Vital Signs Date Time Temp Pulse Resp B/P (MAP) Pulse Ox O2 Delivery O2 Flow Rate FiO2 12/12/17 20:00 2.0 12/12/17 20:00 98.6 98 20 143/68 (93) 100 12/12/17 19:46 Nasal Cannula 2.0 28 12/12/17 19:45 100 Nasal Cannula 2.0 28 12/12/17 19:44 98 20 100 Nasal Cannula 2.0 28 12/12/17 19:33 91 20 99 Nasal Cannula 2.0 28 12/12/17 16:43 98 12/12/17 16:00 99.7 94 18 139/69 (92) 100 12/12/17 16:00 2.0 12/12/17 12:00 99.0 94 20 144/75 (98) 99 12/12/17 11:27 100 Nasal Cannula 2.0 28 12/12/17 11:26 Nasal Cannula 2.0 28 12/12/17 11:24 96 12/12/17 11:00 30 12/12/17 09:00 Bi-pap 12/12/17 08:29 152/84 12/12/17 08:00 99.7 93 23 152/84 (106) 99 12/12/17 08:00 30 12/12/17 08:00 30 12/12/17 07:51 91 12/12/17 04:32 88 21 100 Facial 30 12/12/17 04:00 98.2 97 26 148/86 (106) 99 12/12/17 04:00 88 12/12/17 02:34 95 25 99 Facial 30 12/12/17 00:00 99.1 88 24 155/87 (109) 98 12/12/17 00:00 88 Intake and Output 12/11/17 12/12/17 19:00 07:00 Intake Total 1257.5 ml 1515 ml Output Total 1150 ml 1150 ml Balance 107.5 ml 365 ml Free Water 290 ml 300 ml IV Total 187.5 ml 500 ml Tube Feeding 780 ml 715 ml Output Urine Total 950 ml 1000 ml Stool Total 200 ml 150 ml # Bowel Movements 1 2D Echo: FroM Sep 24:LVEF 65%, Mild LVH,Small Pericardial Eff.,Grade I LVDD, Mild AR Laboratory Tests Test 12/12/17 06:30 12/12/17 15:34 White Blood Count 11.1 K/UL (4.8-10.8) H Red Blood Count 3.46 M/UL (4.70-6.10) L Hemoglobin 9.1 G/DL (14.2-18.0) L Hematocrit 28.2 % (42.0-52.0) L Mean Corpuscular Volume 82 FL (80-99) Mean Corpuscular Hemoglobin 26.4 PG (27.0-31.0) L Mean Corpuscular Hemoglobin Concent 32.3 G/DL (32.0-36.0) Red Cell Distribution Width 15.8 % (11.6-14.8) H Platelet Count 361 K/UL (150-450) Mean Platelet Volume 6.1 FL (6.5-10.1) L Neutrophils (%) (Auto) 79.6 % (45.0-75.0) H Lymphocytes (%) (Auto) 12.3 % (20.0-45.0) L Monocytes (%) (Auto) 5.2 % (1.0-10.0) Eosinophils (%) (Auto) 2.4 % (0.0-3.0) Basophils (%) (Auto) 0.5 % (0.0-2.0) Sodium Level 142 MMOL/L (136-145) Potassium Level 4.7 MMOL/L (3.5-5.1) Chloride Level 113 MMOL/L (98-107) H Carbon Dioxide Level 23 MMOL/L (21-32) Anion Gap 6 mmol/L (5-15) Blood Urea Nitrogen 21 mg/dL (7-18) H Creatinine 1.3 MG/DL (0.55-1.30) Estimat Glomerular Filtration Rate mL/min (>60) Glucose Level 119 MG/DL (74-106) H Calcium Level 8.1 MG/DL (8.5-10.1) L Total Bilirubin 0.3 MG/DL (0.2-1.0) Aspartate Amino Transf (AST/SGOT) 42 U/L (15-37) H Alanine Aminotransferase (ALT/SGPT) 84 U/L (12-78) H Alkaline Phosphatase 91 U/L (46-116) Total Creatine Kinase 195 U/L (26-308) Total Protein 6.6 G/DL (6.4-8.2) Albumin 1.8 G/DL (3.4-5.0) L Globulin 4.8 g/dL Albumin/Globulin Ratio 0.4 (1.0-2.7) L Arterial Blood pH 7.457 (7.350-7.450) Arterial Blood Partial Pressure CO2 31.1 mmHg (35.0-45.0) L Arterial Blood Partial Pressure O2 66.9 mmHg (75.0-100.0) L Arterial Blood HCO3 21.5 mmol/L (22.0-26.0) L Arterial Blood Oxygen Saturation 93.1 % (95-100) L Arterial Blood Base Excess -1.8 (-2-2) Ebenezer Test Positive Microbiology Date/Time Source Procedure Growth Status 12/10/17 16:05 Urine,Clean Catch Urine Culture - Preliminary NO GROWTH AFTER 24 HOURS Resulted 12/10/17 09:50 Indwelling Cath Urine Culture - Preliminary NO GROWTH AFTER 24 HOURS Resulted Objective HEENT: Atraumatic and normocephalic. Anicteric. Pupils are equal, round, and reactive to light and accommodation. Dry mucosal membranes. NECK: JVP less than 5 cm. No carotid bruit. Carotid upstrokes 2+ bilaterally. CARDIOVASCULAR: Normal S1, S2. Regular rhythm. Cannot appreciate any murmurs, gallops, or rubs. LUNGS: Diminished breath sounds in both lungs. ABDOMEN: Soft, nontender, and nondistended. Diminished bowel sounds. Presence of G-tube. No hepatosplenomegaly. EXTREMITIES: Contraction and pressure protection. No edema, clubbing, or cyanosis. Luke Estrada MD Dec 12, 2017 23:54
[2017-12-13] VITALS: BP 148/75
[2017-12-13] MEDS: NovoLOG Insulin Flexpen SUBQ SCH ×5 (00:30→23:25)
[2017-12-13] MEDS ORDERED: Metoprolol 25mg tab ORAL SCH (01:00)
[2017-12-13] MEDS: Albuterol/Ipratropium 3ml neb HHN SCH ×4 (01:46→19:08)
[2017-12-13 04:00] VITALS: BP 149/71
[2017-12-13 04:24] LABS: BASOPHILS % (AUTO) 0.7 % (0.0-2.0); EOSINOPHILS % (AUTO) 2.4 % (0.0-3.0); HEMATOCRIT 26.2 % (42.0-52.0); HEMOGLOBIN 8.8 G/DL (14.2-18.0); LYMPHOCYTES % (AUTO) 20.3 % (20.0-45.0); MEAN CORPUSCULAR VOLUME 82 FL (80-99); MONOCYTES % (AUTO) 7.9 % (1.0-10.0); NEUTROPHILS % (AUTO) 68.7 % (45.0-75.0); PLATELET COUNT 380 K/UL (150-450); RED BLOOD COUNT 3.21 M/UL (4.70-6.10); RED CELL DISTRIBUTION WIDTH 15.9 % (11.6-14.8); WHITE BLOOD COUNT 8.6 K/UL (4.8-10.8)
[2017-12-13 04:37] LABS: ANION GAP 6 mmol/L (5-15); BLOOD UREA NITROGEN 22 mg/dL (7-18); CALCIUM 8.4 MG/DL (8.5-10.1); CARBON DIOXIDE 25 MMOL/L (21-32); CHLORIDE 111 MMOL/L (98-107); CREATININE 1.4 MG/DL (0.55-1.30); POTASSIUM 4.5 MMOL/L (3.5-5.1); SODIUM 142 MMOL/L (136-145)
--- NOTE | 2017-12-13 06:53 | General Progress Note ---
Assessment/Plan Problem List: (1) Renal failure (ARF), acute on chronic ICD Codes: N17.9 - Acute kidney failure, unspecified; N18.9 - Chronic kidney disease, unspecified SNOMED: 857827637 Qualifiers: Qualified Codes: N17.9 - Acute kidney failure, unspecified; N18.3 - Chronic kidney disease, stage 3 (moderate) (2) NSTEMI (non-ST elevated myocardial infarction) ICD Codes: I21.4 - Non-ST elevation (NSTEMI) myocardial infarction SNOMED: 819449467 (3) Hypernatremia ICD Codes: E87.0 - Hyperosmolality and hypernatremia SNOMED: 11977027 (4) DM (5) Rhabdomyolysis ICD Codes: M62.82 - Rhabdomyolysis SNOMED: 527766836 (6) Hypoxemia ICD Codes: R09.02 - Hypoxemia SNOMED: 962202709 (7) Severe sepsis ICD Codes: A41.9 - Sepsis, unspecified organism; R65.20 - Severe sepsis without septic shock SNOMED: 89702724 Assessment/Plan glucose values are stable - continue Levemir 6 units bid - continue NISS every 6 hours Subjective ROS Limited/Unobtainable: Yes Allergies: Coded Allergies: TERAZOSIN (Verified Allergy, Unknown, 10/27/17) Subjective events noted Objective Last 24 Hour Vital Signs Date Time Temp Pulse Resp B/P (MAP) Pulse Ox O2 Delivery O2 Flow Rate FiO2 12/13/17 04:00 100.0 98 20 149/71 (97) 100 12/13/17 04:00 Nasal Cannula 2.0 12/13/17 04:00 2.0 12/13/17 04:00 102 12/13/17 01:51 102 20 100 Nasal Cannula 2.0 28 12/13/17 01:40 100 20 98 Nasal Cannula 2.0 28 12/13/17 00:00 Nasal Cannula 2.0 12/13/17 00:00 2.0 12/13/17 00:00 93 12/13/17 00:00 99.7 96 20 148/75 (99) 100 12/12/17 20:00 93 12/12/17 20:00 2.0 12/12/17 20:00 Nasal Cannula 2.0 12/12/17 20:00 98.6 98 20 143/68 (93) 100 12/12/17 19:46 Nasal Cannula 2.0 28 12/12/17 19:45 100 Nasal Cannula 2.0 28 12/12/17 19:44 98 20 100 Nasal Cannula 2.0 28 12/12/17 19:33 91 20 99 Nasal Cannula 2.0 28 12/12/17 16:43 98 12/12/17 16:00 99.7 94 18 139/69 (92) 100 12/12/17 16:00 2.0 12/12/17 12:00 99.0 94 20 144/75 (98) 99 12/12/17 11:27 100 Nasal Cannula 2.0 28 12/12/17 11:26 Nasal Cannula 2.0 28 12/12/17 11:24 96 12/12/17 11:00 30 12/12/17 09:00 Bi-pap 12/12/17 08:29 152/84 12/12/17 08:00 99.7 93 23 152/84 (106) 99 12/12/17 08:00 30 12/12/17 08:00 30 12/12/17 07:51 91 Intake and Output 12/12/17 12/13/17 19:00 07:00 Intake Total 580 ml 1195 ml Output Total 2300 ml 1950 ml Balance -1720 ml -755 ml Free Water 90 ml IV Total 450 ml 950 ml Tube Feeding 130 ml 65 ml Other 90 ml Output Urine Total 1500 ml 1800 ml Stool Total 800 ml 150 ml Laboratory Tests 12/12/17 15:34: Arterial Blood pH 7.457H, Arterial Blood Partial Pressure CO2 31.1L, Arterial Blood Partial Pressure O2 66.9L, Arterial Blood HCO3 21.5L, Arterial Blood Oxygen Saturation 93.1L, Arterial Blood Base Excess -1.8, Ebenezer Test Positive 12/13/17 03:30: White Blood Count 8.6, Red Blood Count 3.21L, Hemoglobin 8.8L, Hematocrit 26.2L , Mean Corpuscular Volume 82, Mean Corpuscular Hemoglobin 27.4, Mean Corpuscular Hemoglobin Concent 33.6, Red Cell Distribution Width 15.9H, Platelet Count 380, Mean Platelet Volume 5.8L, Neutrophils (%) (Auto) 68.7, Lymphocytes (%) (Auto) 20.3, Monocytes (%) (Auto) 7.9, Eosinophils (%) (Auto) 2.4, Basophils (%) (Auto) 0.7, Sodium Level 142, Potassium Level 4.5, Chloride Level 111H, Carbon Dioxide Level 25, Anion Gap 6, Blood Urea Nitrogen 22H, Creatinine 1.4H, Estimat Glomerular Filtration Rate , Glucose Level 111H, Calcium Level 8.4L Height (Feet): 5 Height (Inches): 5.00 Weight (Pounds): 172 General Appearance: no apparent distress Neck: normal alignment Cardiovascular: normal rate Respiratory/Chest: lungs clear Abdomen: normal bowel sounds Objective Current Medications Medications (Trade) Dose Ordered Sig/Ruthie Route PRN Reason Start Time Stop Time Status Last Admin Dose Admin Albuterol/ Ipratropium (Albuterol/ Ipratropium) 3 ml Q4H PRN HHN Shortness of Breath 12/12/17 15:15 12/17/17 15:14 Albuterol/ Ipratropium (Albuterol/ Ipratropium) 3 ml Q6HRT HHN 12/12/17 19:00 12/17/17 18:59 12/13/17 01:46 Aspirin (ASA) 162 mg DAILY NG 12/13/17 09:00 01/01/18 08:59 Atorvastatin Calcium (Lipitor) 40 mg BEDTIME ORAL 12/12/17 21:00 01/08/18 20:59 12/12/17 21:03 Chlorhexidine Gluconate (Rachael-Hex 2%) 1 applic DAILY@2000 TOPIC 12/12/17 20:00 01/03/18 19:59 12/12/17 21:03 Clonidine HCl (Catapres Tab) 0.1 mg Q4H PRN ORAL BLOOD PRESSURE 12/12/17 15:00 01/06/18 14:59 Dextrose (Dextrose 50%) 25 ml Q30M PRN IV Hypoglycemia 12/12/17 14:30 01/03/18 06:59 Dextrose (Dextrose 50%) 50 ml Q30M PRN IV Hypoglycemia 12/12/17 14:30 01/03/18 06:59 Dextrose/ Electrolytes 1,000 ml @ 50 mls/hr Q20H IV 12/12/17 15:00 01/03/18 14:59 12/12/17 15:00 Heparin Sodium (Porcine) (Heparin 5000 units/ml) 5,000 units EVERY 12 HOURS SUBQ 12/12/17 21:00 12/31/17 20:59 12/12/17 21:06 Insulin Aspart (NovoLOG) EVERY 6 HOURS SUBQ 12/12/17 18:00 01/01/18 20:59 12/13/17 06:15 Insulin Detemir (Levemir) 6 units BID SUBQ 12/12/17 18:00 01/07/18 08:59 12/12/17 18:49 Lansoprazole (Prevacid) 30 mg DAILY GT 12/13/17 09:00 01/09/18 08:59 Loperamide HCl (Imodium) 2 mg Q6H PRN NG Diarrhea 12/12/17 14:30 01/02/18 08:29 Metoprolol Tartrate (Lopressor) 25 mg Q12HR ORAL 12/13/17 09:00 01/12/18 08:59 Nitroglycerin (Ntg) 1 patch Q24H TDERMAL 12/13/17 09:00 01/01/18 08:59 Quetiapine Fumarate (SEROquel) 12.5 mg Q4H PRN GT agitation 12/12/17 15:00 01/03/18 14:59 Sucralfate (Carafate) 1 gm BID GT 12/12/17 18:00 12/31/17 17:59 12/12/17 17:52 Item Value Date Time Bedside Blood Glucose 139 mg/dl H 12/13/17 0615 Bedside Blood Glucose 129 mg/dl H 12/13/17 0030 Bedside Blood Glucose 113 mg/dl 12/12/17 1850 Bedside Blood Glucose 92 mg/dl 12/12/17 1223 Bedside Blood Glucose 122 mg/dl H 12/12/17 0836 Bedside Blood Glucose 122 mg/dl H 12/12/17 0603 Bedside Blood Glucose 114 mg/dl 12/12/17 0136 Stefan Leon MD Dec 13, 2017 06:53
--- NOTE | 2017-12-13 07:54 | General Progress Note ---
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 --> Anemia w/u has been reviewed. trend CBC daily as needed --> No evidence of hemolysis noted, peripheral smear has been reviewed --> Hgb goal >7. Transfuse as needed prn basis --> 1 unit ordered for 12/11 # Leukocytosis. Likely related to underlying infection vs reactive process. --> Imaging has been reviewed. Shows stable cardiomegaly. slight haziness of the pulmonary vascularity suggests mild interstitial edema. Unchanged elevation of the left hemidiaphragm. --> Blood cx and urine cx also reviewed --> on abx, empiric rx # Thrombocytopenia. Potential causes multifactorial, now better, several days was 50-100k, now has improved. Hep panel negative and HIV is negative, abd us shows no significant cirrhosis or hsm, Abx and other meds have been reviewed --> Ok for ppx if heparin >50k with heparin sq --> currently appears to have stabilized # Constipation. KUB evaluate abdominal distention - No acute process. findings have been reviewed --> electrolyte correction --> prevacid GT --> as per gi recs # Sepsis. s/p abx # Malnutrition. --> s/p peg GREATLY APPRECIATE CONSULTATION. Subjective Allergies: Coded Allergies: TERAZOSIN (Verified Allergy, Unknown, 10/27/17) Subjective on TFs, is minimally responsive, on NC Objective Last 24 Hour Vital Signs Date Time Temp Pulse Resp B/P (MAP) Pulse Ox O2 Delivery O2 Flow Rate FiO2 12/13/17 07:31 85 20 100 Nasal Cannula 2.0 28 12/13/17 07:22 Nasal Cannula 2.0 28 12/13/17 07:22 28 12/13/17 07:22 93 16 99 Nasal Cannula 2.0 28 12/13/17 07:22 99 Nasal Cannula 2.0 28 12/13/17 04:00 100.0 98 20 149/71 (97) 100 12/13/17 04:00 Nasal Cannula 2.0 12/13/17 04:00 2.0 12/13/17 04:00 102 12/13/17 01:51 102 20 100 Nasal Cannula 2.0 28 12/13/17 01:40 100 20 98 Nasal Cannula 2.0 28 12/13/17 00:00 Nasal Cannula 2.0 12/13/17 00:00 2.0 12/13/17 00:00 93 12/13/17 00:00 99.7 96 20 148/75 (99) 100 12/12/17 20:00 93 12/12/17 20:00 2.0 12/12/17 20:00 Nasal Cannula 2.0 12/12/17 20:00 98.6 98 20 143/68 (93) 100 12/12/17 19:46 Nasal Cannula 2.0 28 12/12/17 19:45 100 Nasal Cannula 2.0 28 12/12/17 19:44 98 20 100 Nasal Cannula 2.0 28 12/12/17 19:33 91 20 99 Nasal Cannula 2.0 28 12/12/17 16:43 98 12/12/17 16:00 99.7 94 18 139/69 (92) 100 12/12/17 16:00 2.0 12/12/17 12:00 99.0 94 20 144/75 (98) 99 12/12/17 11:27 100 Nasal Cannula 2.0 28 12/12/17 11:26 Nasal Cannula 2.0 28 12/12/17 11:24 96 12/12/17 11:00 30 12/12/17 09:00 Bi-pap 12/12/17 08:29 152/84 12/12/17 08:00 99.7 93 23 152/84 (106) 99 12/12/17 08:00 30 12/12/17 08:00 30 Intake and Output 12/12/17 12/13/17 19:00 07:00 Intake Total 580 ml 1195 ml Output Total 2300 ml 1950 ml Balance -1720 ml -755 ml Free Water 90 ml IV Total 450 ml 950 ml Tube Feeding 130 ml 65 ml Other 90 ml Output Urine Total 1500 ml 1800 ml Stool Total 800 ml 150 ml Laboratory Tests 12/12/17 15:34: Arterial Blood pH 7.457H, Arterial Blood Partial Pressure CO2 31.1L, Arterial Blood Partial Pressure O2 66.9L, Arterial Blood HCO3 21.5L, Arterial Blood Oxygen Saturation 93.1L, Arterial Blood Base Excess -1.8, Ebenezer Test Positive 12/13/17 03:30: White Blood Count 8.6, Red Blood Count 3.21L, Hemoglobin 8.8L, Hematocrit 26.2L , Mean Corpuscular Volume 82, Mean Corpuscular Hemoglobin 27.4, Mean Corpuscular Hemoglobin Concent 33.6, Red Cell Distribution Width 15.9H, Platelet Count 380, Mean Platelet Volume 5.8L, Neutrophils (%) (Auto) 68.7, Lymphocytes (%) (Auto) 20.3, Monocytes (%) (Auto) 7.9, Eosinophils (%) (Auto) 2.4, Basophils (%) (Auto) 0.7, Sodium Level 142, Potassium Level 4.5, Chloride Level 111H, Carbon Dioxide Level 25, Anion Gap 6, Blood Urea Nitrogen 22H, Creatinine 1.4H, Estimat Glomerular Filtration Rate , Glucose Level 111H, Calcium Level 8.4L Height (Feet): 5 Height (Inches): 5.00 Weight (Pounds): 172 General Appearance: WD/WN EENT: normal ENT inspection Neck: normal alignment Objective NCAT, is minimally responsive supple ++ congestion, on NC RRR abd soft , mildly distended, (+) GT edema all 4 extremities Beny Dalton MD Dec 13, 2017 07:54
[2017-12-13 08:00] VITALS: BP 136/68
[2017-12-13] MEDS: Levemir Flexpen SUBQ SCH ×2 (08:30→18:00)
[2017-12-13] MEDS: Heparin 5000 units/ml inj SUBQ SCH ×2 (08:31→20:32)
[2017-12-13] MEDS: Nitroglycerin Patch 0.4mg TDERMAL SCH (08:32)
[2017-12-13] MEDS: Metoprolol 25mg tab ORAL SCH ×2 (08:32→20:31)
[2017-12-13] MEDS: Aspirin Baby 81mg NG SCH (08:32)
[2017-12-13] MEDS: Sucralfate 1gm tab GT SCH ×2 (08:32→18:00)
[2017-12-13 08:47] LABS: ALANINE AMINOTRANSFERASE 80 U/L (12-78); ALBUMIN 1.8 G/DL (3.4-5.0); ALBUMIN/GLOBULIN RATIO 0.4 (1.0-2.7); ALKALINE PHOSPHATASE 87 U/L (46-116); ANION GAP 6 mmol/L (5-15); ASPARTATE AMINO TRANSFERASE 46 U/L (15-37); BILIRUBIN,TOTAL 0.3 MG/DL (0.2-1.0); BLOOD UREA NITROGEN 22 mg/dL (7-18); CARBON DIOXIDE 25 MMOL/L (21-32); CHLORIDE 112 MMOL/L (98-107); CREATININE 1.3 MG/DL (0.55-1.30); POTASSIUM 4.6 MMOL/L (3.5-5.1); SODIUM 143 MMOL/L (136-145)
[2017-12-13] MEDS: D5W w/KCl 20mEq 1,000 ML IV SCH (11:00)
--- NOTE | 2017-12-13 11:43 | Pulmonology Progress Note ---
Assessment/Plan Problems: (1) Encephalopathy due to metabolic factor or toxin (2) Sacral decubitus ulcer (3) UTI (urinary tract infection) (4) Pneumonia (5) Renal failure (ARF), acute on chronic (6) Rhabdomyolysis (7) DM (8) Hypernatremia (9) NSTEMI (non-ST elevated myocardial infarction) (10) Severe sepsis (11) Respiratory failure (12) Pancreatitis (13) Malnutrition (14) Constipation Assessment/Plan F/u CXR? ulcer why not loaded on PACS Optimize pulmonary hygiene/mobilize as tolerated Titrate down FiO2 to keep SaO2 > 92% PRN HHN's PRN BiPAP Observe off Abx per ID Off Midodrine Monitor volumes and electrolytes,SLIV - consider D/C IVF TF's ONLY WHEN RESPIRATORY STATUS STABLE OFF BiPAP DVT Px: Hep SQ Glycemic control Tx to TELE Subjective Allergies: Coded Allergies: TERAZOSIN (Verified Allergy, Unknown, 10/27/17) Subjective AFVSS, stable on 2L Gas exchange adequate CXR not loaded on PACS + cough + congestion, marcin TF's, no carolynn Objective Last 24 Hour Vital Signs Date Time Temp Pulse Resp B/P (MAP) Pulse Ox O2 Delivery O2 Flow Rate FiO2 12/13/17 09:00 Nasal Cannula 2.0 12/13/17 08:42 102 12/13/17 08:32 85 149/71 12/13/17 08:32 135/71 12/13/17 08:00 2.0 12/13/17 08:00 Nasal Cannula 2.0 12/13/17 08:00 98.6 95 20 136/68 (90) 100 12/13/17 07:31 85 20 100 Nasal Cannula 2.0 28 12/13/17 07:22 Nasal Cannula 2.0 28 12/13/17 07:22 28 12/13/17 07:22 93 16 99 Nasal Cannula 2.0 28 12/13/17 07:22 99 Nasal Cannula 2.0 28 12/13/17 04:00 100.0 98 20 149/71 (97) 100 12/13/17 04:00 Nasal Cannula 2.0 12/13/17 04:00 2.0 12/13/17 04:00 102 12/13/17 01:51 102 20 100 Nasal Cannula 2.0 28 12/13/17 01:40 100 20 98 Nasal Cannula 2.0 28 12/13/17 00:00 Nasal Cannula 2.0 12/13/17 00:00 2.0 12/13/17 00:00 93 12/13/17 00:00 99.7 96 20 148/75 (99) 100 12/12/17 20:00 93 12/12/17 20:00 2.0 12/12/17 20:00 Nasal Cannula 2.0 12/12/17 20:00 98.6 98 20 143/68 (93) 100 12/12/17 19:46 Nasal Cannula 2.0 28 12/12/17 19:45 100 Nasal Cannula 2.0 28 12/12/17 19:44 98 20 100 Nasal Cannula 2.0 28 12/12/17 19:33 91 20 99 Nasal Cannula 2.0 28 12/12/17 16:43 98 12/12/17 16:00 99.7 94 18 139/69 (92) 100 12/12/17 16:00 2.0 12/12/17 12:00 99.0 94 20 144/75 (98) 99 Intake and Output 12/12/17 12/13/17 19:00 07:00 Intake Total 580 ml 1195 ml Output Total 2300 ml 1950 ml Balance -1720 ml -755 ml Free Water 90 ml IV Total 450 ml 950 ml Tube Feeding 130 ml 65 ml Other 90 ml Output Urine Total 1500 ml 1800 ml Stool Total 800 ml 150 ml General Appearance: no acute distress, cachetic HEENT: normocephalic, atraumatic, anicteric, mucous membranes moist Respiratory/Chest: chest wall non-tender, lungs clear, normal breath sounds, no respiratory distress Cardiovascular: normal peripheral pulses, normal rate, regular rhythm Abdomen: normal bowel sounds, soft, non tender, no organomegaly, non distended , no mass, other - GT Extremities: no cyanosis, no clubbing, no edema Microbiology Date/Time Source Procedure Growth Status 12/10/17 16:05 Urine,Clean Catch Urine Culture - Final NO GROWTH AFTER 48 HOURS Complete Laboratory Tests 12/12/17 15:34: Arterial Blood pH 7.457H, Arterial Blood Partial Pressure CO2 31.1L, Arterial Blood Partial Pressure O2 66.9L, Arterial Blood HCO3 21.5L, Arterial Blood Oxygen Saturation 93.1L, Arterial Blood Base Excess -1.8, Ebenezer Test Positive 12/13/17 03:30: White Blood Count 8.6, Red Blood Count 3.21L, Hemoglobin 8.8L, Hematocrit 26.2L , Mean Corpuscular Volume 82, Mean Corpuscular Hemoglobin 27.4, Mean Corpuscular Hemoglobin Concent 33.6, Red Cell Distribution Width 15.9H, Platelet Count 380, Mean Platelet Volume 5.8L, Neutrophils (%) (Auto) 68.7, Lymphocytes (%) (Auto) 20.3, Monocytes (%) (Auto) 7.9, Eosinophils (%) (Auto) 2.4, Basophils (%) (Auto) 0.7, Sodium Level 142, Potassium Level 4.5, Chloride Level 111H, Carbon Dioxide Level 25, Anion Gap 6, Blood Urea Nitrogen 22H, Creatinine 1.4H, Estimat Glomerular Filtration Rate , Glucose Level 111H, Calcium Level 8.4L 12/13/17 08:05: Sodium Level 143, Potassium Level 4.6, Chloride Level 112H, Carbon Dioxide Level 25, Anion Gap 6, Blood Urea Nitrogen 22H, Creatinine 1.3, Estimat Glomerular Filtration Rate , Glucose Level 123H, Calcium Level 8.0L, Prothrombin Time 10.6, Prothromb Time International Ratio 1.0, Total Bilirubin 0.3, Aspartate Amino Transf (AST/SGOT) 46H, Alanine Aminotransferase (ALT/SGPT) 80H, Alkaline Phosphatase 87, Total Protein 5.8L, Albumin 1.8L, Globulin 4.0, Albumin/Globulin Ratio 0.4L Current Medications Medications (Trade) Dose Ordered Sig/Ruthie Route PRN Reason Start Time Stop Time Status Last Admin Dose Admin Albuterol/ Ipratropium (Albuterol/ Ipratropium) 3 ml Q4H PRN HHN Shortness of Breath 12/12/17 15:15 12/17/17 15:14 Albuterol/ Ipratropium (Albuterol/ Ipratropium) 3 ml Q6HRT HHN 12/12/17 19:00 12/17/17 18:59 12/13/17 07:23 Aspirin (ASA) 162 mg DAILY NG 12/13/17 09:00 01/01/18 08:59 12/13/17 08:32 Atorvastatin Calcium (Lipitor) 40 mg BEDTIME ORAL 12/12/17 21:00 01/08/18 20:59 12/12/17 21:03 Chlorhexidine Gluconate (Rachael-Hex 2%) 1 applic DAILY@2000 TOPIC 12/12/17 20:00 01/03/18 19:59 12/12/17 21:03 Clonidine HCl (Catapres Tab) 0.1 mg Q4H PRN ORAL BLOOD PRESSURE 12/12/17 15:00 01/06/18 14:59 Dextrose (Dextrose 50%) 25 ml Q30M PRN IV Hypoglycemia 12/12/17 14:30 01/03/18 06:59 Dextrose (Dextrose 50%) 50 ml Q30M PRN IV Hypoglycemia 12/12/17 14:30 01/03/18 06:59 Dextrose/ Electrolytes 1,000 ml @ 50 mls/hr Q20H IV 12/12/17 15:00 01/03/18 14:59 12/12/17 15:00 Heparin Sodium (Porcine) (Heparin 5000 units/ml) 5,000 units EVERY 12 HOURS SUBQ 12/12/17 21:00 12/31/17 20:59 12/13/17 08:31 Insulin Aspart (NovoLOG) EVERY 6 HOURS SUBQ 12/12/17 18:00 01/01/18 20:59 12/13/17 06:15 Insulin Detemir (Levemir) 6 units BID SUBQ 12/12/17 18:00 01/07/18 08:59 12/13/17 08:30 Lansoprazole (Prevacid) 30 mg DAILY GT 12/13/17 09:00 01/09/18 08:59 12/13/17 08:32 Loperamide HCl (Imodium) 2 mg Q6H PRN NG Diarrhea 12/12/17 14:30 01/02/18 08:29 Metoprolol Tartrate (Lopressor) 25 mg Q12HR ORAL 12/13/17 09:00 01/12/18 08:59 12/13/17 08:32 Nitroglycerin (Ntg) 1 patch Q24H TDERMAL 12/13/17 09:00 01/01/18 08:59 12/13/17 08:32 Quetiapine Fumarate (SEROquel) 12.5 mg Q4H PRN GT agitation 12/12/17 15:00 01/03/18 14:59 Sucralfate (Carafate) 1 gm BID GT 12/12/17 18:00 12/31/17 17:59 12/13/17 08:32 Fantasma Nielsen MD Dec 13, 2017 11:43
[2017-12-13 12:00] VITALS: BP 120/69
--- NOTE | 2017-12-13 12:10 | Diagnostic Imaging Report ---
Indication: Dyspnea Comparison: 12/10/2017 A single view chest radiograph was obtained. Findings: Mild interstitial edema suspected with prominent vascularity and heart size. PICC line is stable. IMPRESSION: No change from the prior exam. Suspected CHF
--- NOTE | 2017-12-13 12:23 | GI Progress Note ---
Assessment/Plan Problems: (1) Malnutrition ICD Codes: E46 - Unspecified protein-calorie malnutrition SNOMED: 16135787 (2) Pancreatitis ICD Codes: K85.90 - Acute pancreatitis without necrosis or infection, unspecified SNOMED: 09421226 Qualifiers: Qualified Codes: K85.90 - Acute pancreatitis without necrosis or infection, unspecified (3) Constipation ICD Codes: K59.00 - Constipation, unspecified SNOMED: 97992523 (4) PEG (percutaneous endoscopic gastrostomy) status ICD Codes: Z93.1 - Gastrostomy status SNOMED: 605080373, 151621622 (5) DM (6) Severe sepsis ICD Codes: A41.9 - Sepsis, unspecified organism; R65.20 - Severe sepsis without septic shock SNOMED: 54439499 Status: unchanged Status Narrative Discussed with Dr. Coronel. Assessment/Plan transaminitis >> hep panel negative prn transfusions on GTF Imodium prn rectal tube fu nephrology fu labs ppi BID trend LFTs The patient was seen and examined at bedside and all new and available data was reviewed in the patients chart. I agree with the above findings, impression and plan. (Patient seen earlier today. Signature stamp does not reflect patient encounter time.). - Juan Coronel MD Subjective Subjective limited Objective Last 24 Hour Vital Signs Date Time Temp Pulse Resp B/P (MAP) Pulse Ox O2 Delivery O2 Flow Rate FiO2 12/13/17 09:00 Nasal Cannula 2.0 12/13/17 08:42 102 12/13/17 08:32 85 149/71 12/13/17 08:32 135/71 12/13/17 08:00 2.0 12/13/17 08:00 Nasal Cannula 2.0 12/13/17 08:00 98.6 95 20 136/68 (90) 100 12/13/17 07:31 85 20 100 Nasal Cannula 2.0 28 12/13/17 07:22 Nasal Cannula 2.0 28 12/13/17 07:22 28 12/13/17 07:22 93 16 99 Nasal Cannula 2.0 28 12/13/17 07:22 99 Nasal Cannula 2.0 28 12/13/17 04:00 100.0 98 20 149/71 (97) 100 12/13/17 04:00 Nasal Cannula 2.0 12/13/17 04:00 2.0 12/13/17 04:00 102 12/13/17 01:51 102 20 100 Nasal Cannula 2.0 28 12/13/17 01:40 100 20 98 Nasal Cannula 2.0 28 12/13/17 00:00 Nasal Cannula 2.0 12/13/17 00:00 2.0 12/13/17 00:00 93 12/13/17 00:00 99.7 96 20 148/75 (99) 100 12/12/17 20:00 93 12/12/17 20:00 2.0 12/12/17 20:00 Nasal Cannula 2.0 12/12/17 20:00 98.6 98 20 143/68 (93) 100 12/12/17 19:46 Nasal Cannula 2.0 28 12/12/17 19:45 100 Nasal Cannula 2.0 28 12/12/17 19:44 98 20 100 Nasal Cannula 2.0 28 12/12/17 19:33 91 20 99 Nasal Cannula 2.0 28 12/12/17 16:43 98 12/12/17 16:00 99.7 94 18 139/69 (92) 100 12/12/17 16:00 2.0 Intake and Output 12/12/17 12/13/17 19:00 07:00 Intake Total 580 ml 1195 ml Output Total 2300 ml 1950 ml Balance -1720 ml -755 ml Free Water 90 ml IV Total 450 ml 950 ml Tube Feeding 130 ml 65 ml Other 90 ml Output Urine Total 1500 ml 1800 ml Stool Total 800 ml 150 ml Laboratory Tests Test 12/12/17 15:34 12/13/17 03:30 12/13/17 08:05 Arterial Blood pH 7.457 (7.350-7.450) Arterial Blood Partial Pressure CO2 31.1 mmHg (35.0-45.0) L Arterial Blood Partial Pressure O2 66.9 mmHg (75.0-100.0) L Arterial Blood HCO3 21.5 mmol/L (22.0-26.0) L Arterial Blood Oxygen Saturation 93.1 % (95-100) L Arterial Blood Base Excess -1.8 (-2-2) Ebenezer Test Positive White Blood Count 8.6 K/UL (4.8-10.8) Red Blood Count 3.21 M/UL (4.70-6.10) L Hemoglobin 8.8 G/DL (14.2-18.0) L Hematocrit 26.2 % (42.0-52.0) L Mean Corpuscular Volume 82 FL (80-99) Mean Corpuscular Hemoglobin 27.4 PG (27.0-31.0) Mean Corpuscular Hemoglobin Concent 33.6 G/DL (32.0-36.0) Red Cell Distribution Width 15.9 % (11.6-14.8) H Platelet Count 380 K/UL (150-450) Mean Platelet Volume 5.8 FL (6.5-10.1) L Neutrophils (%) (Auto) 68.7 % (45.0-75.0) Lymphocytes (%) (Auto) 20.3 % (20.0-45.0) Monocytes (%) (Auto) 7.9 % (1.0-10.0) Eosinophils (%) (Auto) 2.4 % (0.0-3.0) Basophils (%) (Auto) 0.7 % (0.0-2.0) Sodium Level 142 MMOL/L (136-145) 143 MMOL/L (136-145) Potassium Level 4.5 MMOL/L (3.5-5.1) 4.6 MMOL/L (3.5-5.1) Chloride Level 111 MMOL/L (98-107) H 112 MMOL/L (98-107) H Carbon Dioxide Level 25 MMOL/L (21-32) 25 MMOL/L (21-32) Anion Gap 6 mmol/L (5-15) 6 mmol/L (5-15) Blood Urea Nitrogen 22 mg/dL (7-18) H 22 mg/dL (7-18) H Creatinine 1.4 MG/DL (0.55-1.30) H 1.3 MG/DL (0.55-1.30) Estimat Glomerular Filtration Rate mL/min (>60) mL/min (>60) Glucose Level 111 MG/DL (74-106) H 123 MG/DL (74-106) H Calcium Level 8.4 MG/DL (8.5-10.1) L 8.0 MG/DL (8.5-10.1) L Prothrombin Time 10.6 SEC (9.30-11.50) Prothromb Time International Ratio 1.0 (0.9-1.1) Total Bilirubin 0.3 MG/DL (0.2-1.0) Aspartate Amino Transf (AST/SGOT) 46 U/L (15-37) H Alanine Aminotransferase (ALT/SGPT) 80 U/L (12-78) H Alkaline Phosphatase 87 U/L (46-116) Total Protein 5.8 G/DL (6.4-8.2) L Albumin 1.8 G/DL (3.4-5.0) L Globulin 4.0 g/dL Albumin/Globulin Ratio 0.4 (1.0-2.7) L Height (Feet): 5 Height (Inches): 5.00 Weight (Pounds): 172 General Appearance: WD/WN, no apparent distress, alert Cardiovascular: normal rate Respiratory/Chest: normal breath sounds, no respiratory distress Abdominal Exam: normal bowel sounds, non tender, soft, GT site - c/d/i Extremities: non-tender Kishan Hopkins NP Dec 13, 2017 12:23
--- NOTE | 2017-12-13 12:54 | Nephrology Progress Note ---
Assessment/Plan Problem List: (1) Renal failure (ARF), acute on chronic (2) Respiratory failure (3) Hypernatremia (4) Rhabdomyolysis (5) DM Assessment Acute respiratory failure- now extubated, but on BIPAP again Acute Renal failure- Severe Dehydration PEG Sepsis / UTI / Pneumonia Hypotension- Septic Shock High Lipase Rhabdo- High CPK Elevated Troponin Dementia Plan DC midodrine- transfusion pulmonary support change IV rate- K supplement as needed check am vanco levels monitor CK post extubation care Gastric support Antibiotics Monitor renal parameters Per orders Subjective ROS Limited/Unobtainable: No Constitutional: Reports: malaise Objective Objective Last 24 Hour Vital Signs Date Time Temp Pulse Resp B/P (MAP) Pulse Ox O2 Delivery O2 Flow Rate FiO2 12/13/17 09:00 Nasal Cannula 2.0 12/13/17 08:42 102 12/13/17 08:32 85 149/71 12/13/17 08:32 135/71 12/13/17 08:00 2.0 12/13/17 08:00 Nasal Cannula 2.0 12/13/17 08:00 98.6 95 20 136/68 (90) 100 12/13/17 07:31 85 20 100 Nasal Cannula 2.0 28 12/13/17 07:22 Nasal Cannula 2.0 28 12/13/17 07:22 28 12/13/17 07:22 93 16 99 Nasal Cannula 2.0 28 12/13/17 07:22 99 Nasal Cannula 2.0 28 12/13/17 04:00 100.0 98 20 149/71 (97) 100 12/13/17 04:00 Nasal Cannula 2.0 12/13/17 04:00 2.0 12/13/17 04:00 102 12/13/17 01:51 102 20 100 Nasal Cannula 2.0 28 12/13/17 01:40 100 20 98 Nasal Cannula 2.0 28 12/13/17 00:00 Nasal Cannula 2.0 12/13/17 00:00 2.0 12/13/17 00:00 93 12/13/17 00:00 99.7 96 20 148/75 (99) 100 12/12/17 20:00 93 12/12/17 20:00 2.0 12/12/17 20:00 Nasal Cannula 2.0 12/12/17 20:00 98.6 98 20 143/68 (93) 100 12/12/17 19:46 Nasal Cannula 2.0 28 12/12/17 19:45 100 Nasal Cannula 2.0 28 12/12/17 19:44 98 20 100 Nasal Cannula 2.0 28 12/12/17 19:33 91 20 99 Nasal Cannula 2.0 28 12/12/17 16:43 98 12/12/17 16:00 99.7 94 18 139/69 (92) 100 12/12/17 16:00 2.0 Intake and Output 12/12/17 12/13/17 19:00 07:00 Intake Total 580 ml 1195 ml Output Total 2300 ml 1950 ml Balance -1720 ml -755 ml Free Water 90 ml IV Total 450 ml 950 ml Tube Feeding 130 ml 65 ml Other 90 ml Output Urine Total 1500 ml 1800 ml Stool Total 800 ml 150 ml Laboratory Tests 12/12/17 15:34: Arterial Blood pH 7.457H, Arterial Blood Partial Pressure CO2 31.1L, Arterial Blood Partial Pressure O2 66.9L, Arterial Blood HCO3 21.5L, Arterial Blood Oxygen Saturation 93.1L, Arterial Blood Base Excess -1.8, Ebenezer Test Positive 12/13/17 03:30: White Blood Count 8.6, Red Blood Count 3.21L, Hemoglobin 8.8L, Hematocrit 26.2L , Mean Corpuscular Volume 82, Mean Corpuscular Hemoglobin 27.4, Mean Corpuscular Hemoglobin Concent 33.6, Red Cell Distribution Width 15.9H, Platelet Count 380, Mean Platelet Volume 5.8L, Neutrophils (%) (Auto) 68.7, Lymphocytes (%) (Auto) 20.3, Monocytes (%) (Auto) 7.9, Eosinophils (%) (Auto) 2.4, Basophils (%) (Auto) 0.7, Sodium Level 142, Potassium Level 4.5, Chloride Level 111H, Carbon Dioxide Level 25, Anion Gap 6, Blood Urea Nitrogen 22H, Creatinine 1.4H, Estimat Glomerular Filtration Rate , Glucose Level 111H, Calcium Level 8.4L 12/13/17 08:05: Sodium Level 143, Potassium Level 4.6, Chloride Level 112H, Carbon Dioxide Level 25, Anion Gap 6, Blood Urea Nitrogen 22H, Creatinine 1.3, Estimat Glomerular Filtration Rate , Glucose Level 123H, Calcium Level 8.0L, Prothrombin Time 10.6, Prothromb Time International Ratio 1.0, Total Bilirubin 0.3, Aspartate Amino Transf (AST/SGOT) 46H, Alanine Aminotransferase (ALT/SGPT) 80H, Alkaline Phosphatase 87, Total Protein 5.8L, Albumin 1.8L, Globulin 4.0, Albumin/Globulin Ratio 0.4L Height (Feet): 5 Height (Inches): 5.00 Weight (Pounds): 172 General Appearance: no apparent distress Respiratory/Chest: decreased breath sounds Abdomen: soft, distended Objective no other change Randolph Fernandes MD Dec 13, 2017 12:53
--- NOTE | 2017-12-13 15:44 | General Progress Note ---
Assessment/Plan Problem List: (1) Encephalopathy due to metabolic factor or toxin SNOMED: 751708010 Status: not improved Assessment/Plan Seroquel prn dw staff provided ro/st Subjective Date patient seen: Dec 13, 2017 Neurologic/Psychiatric: Reports: anxiety Allergies: Coded Allergies: TERAZOSIN (Verified Allergy, Unknown, 10/27/17) Subjective the pt has waxing and waning of consciousness. the pt is agitated and confused Objective Last 24 Hour Vital Signs Date Time Temp Pulse Resp B/P (MAP) Pulse Ox O2 Delivery O2 Flow Rate FiO2 12/13/17 14:06 83 20 100 Nasal Cannula 2.0 28 12/13/17 13:56 90 14 96 Nasal Cannula 2.0 28 12/13/17 13:56 28 12/13/17 09:00 Nasal Cannula 2.0 12/13/17 08:42 102 12/13/17 08:32 85 149/71 12/13/17 08:32 135/71 12/13/17 08:00 2.0 12/13/17 08:00 Nasal Cannula 2.0 12/13/17 08:00 98.6 95 20 136/68 (90) 100 12/13/17 07:31 85 20 100 Nasal Cannula 2.0 28 12/13/17 07:22 Nasal Cannula 2.0 28 12/13/17 07:22 28 12/13/17 07:22 93 16 99 Nasal Cannula 2.0 28 12/13/17 07:22 99 Nasal Cannula 2.0 28 12/13/17 04:00 100.0 98 20 149/71 (97) 100 12/13/17 04:00 Nasal Cannula 2.0 12/13/17 04:00 2.0 12/13/17 04:00 102 12/13/17 01:51 102 20 100 Nasal Cannula 2.0 28 12/13/17 01:40 100 20 98 Nasal Cannula 2.0 28 12/13/17 00:00 Nasal Cannula 2.0 12/13/17 00:00 2.0 12/13/17 00:00 93 12/13/17 00:00 99.7 96 20 148/75 (99) 100 12/12/17 20:00 93 12/12/17 20:00 2.0 12/12/17 20:00 Nasal Cannula 2.0 12/12/17 20:00 98.6 98 20 143/68 (93) 100 12/12/17 19:46 Nasal Cannula 2.0 28 12/12/17 19:45 100 Nasal Cannula 2.0 28 12/12/17 19:44 98 20 100 Nasal Cannula 2.0 28 12/12/17 19:33 91 20 99 Nasal Cannula 2.0 28 12/12/17 16:43 98 12/12/17 16:00 99.7 94 18 139/69 (92) 100 12/12/17 16:00 2.0 Intake and Output 12/12/17 12/13/17 19:00 07:00 Intake Total 580 ml 1195 ml Output Total 2300 ml 1950 ml Balance -1720 ml -755 ml Free Water 90 ml IV Total 450 ml 950 ml Tube Feeding 130 ml 65 ml Other 90 ml Output Urine Total 1500 ml 1800 ml Stool Total 800 ml 150 ml Laboratory Tests 12/13/17 03:30: White Blood Count 8.6, Red Blood Count 3.21L, Hemoglobin 8.8L, Hematocrit 26.2L , Mean Corpuscular Volume 82, Mean Corpuscular Hemoglobin 27.4, Mean Corpuscular Hemoglobin Concent 33.6, Red Cell Distribution Width 15.9H, Platelet Count 380, Mean Platelet Volume 5.8L, Neutrophils (%) (Auto) 68.7, Lymphocytes (%) (Auto) 20.3, Monocytes (%) (Auto) 7.9, Eosinophils (%) (Auto) 2.4, Basophils (%) (Auto) 0.7, Sodium Level 142, Potassium Level 4.5, Chloride Level 111H, Carbon Dioxide Level 25, Anion Gap 6, Blood Urea Nitrogen 22H, Creatinine 1.4H, Estimat Glomerular Filtration Rate , Glucose Level 111H, Calcium Level 8.4L 12/13/17 08:05: Sodium Level 143, Potassium Level 4.6, Chloride Level 112H, Carbon Dioxide Level 25, Anion Gap 6, Blood Urea Nitrogen 22H, Creatinine 1.3, Estimat Glomerular Filtration Rate , Glucose Level 123H, Calcium Level 8.0L, Prothrombin Time 10.6, Prothromb Time International Ratio 1.0, Total Bilirubin 0.3, Aspartate Amino Transf (AST/SGOT) 46H, Alanine Aminotransferase (ALT/SGPT) 80H, Alkaline Phosphatase 87, Total Protein 5.8L, Albumin 1.8L, Globulin 4.0, Albumin/Globulin Ratio 0.4L Height (Feet): 5 Height (Inches): 5.00 Weight (Pounds): 172 General Appearance: alert, confused, agitated Neurologic: disoriented Lauren Santoyo MD Dec 13, 2017 15:44
--- NOTE | 2017-12-13 15:50 | Infectious Diseases Prog Note ---
Assessment/Plan Assessment/Plan A; Sepsis, SIRS Pancreatitis Rhabdomyolysis Acute respiratory failure Acute renal failure improving Dehydration Elevated transaminase P: Observe off antibiotic Subjective ROS Limited/Unobtainable: Yes Constitutional: Reports: fever, other - T [id number] Allergies: Coded Allergies: TERAZOSIN (Verified Allergy, Unknown, 10/27/17) Objective Vital Signs Last 24 Hour Vital Signs Date Time Temp Pulse Resp B/P (MAP) Pulse Ox O2 Delivery O2 Flow Rate FiO2 12/13/17 14:06 83 20 100 Nasal Cannula 2.0 28 12/13/17 13:56 90 14 96 Nasal Cannula 2.0 28 12/13/17 13:56 28 12/13/17 09:00 Nasal Cannula 2.0 12/13/17 08:42 102 12/13/17 08:32 85 149/71 12/13/17 08:32 135/71 12/13/17 08:00 2.0 12/13/17 08:00 Nasal Cannula 2.0 12/13/17 08:00 98.6 95 20 136/68 (90) 100 12/13/17 07:31 85 20 100 Nasal Cannula 2.0 28 12/13/17 07:22 Nasal Cannula 2.0 28 12/13/17 07:22 28 12/13/17 07:22 93 16 99 Nasal Cannula 2.0 28 12/13/17 07:22 99 Nasal Cannula 2.0 28 12/13/17 04:00 100.0 98 20 149/71 (97) 100 12/13/17 04:00 Nasal Cannula 2.0 12/13/17 04:00 2.0 12/13/17 04:00 102 12/13/17 01:51 102 20 100 Nasal Cannula 2.0 28 12/13/17 01:40 100 20 98 Nasal Cannula 2.0 28 12/13/17 00:00 Nasal Cannula 2.0 12/13/17 00:00 2.0 12/13/17 00:00 93 12/13/17 00:00 99.7 96 20 148/75 (99) 100 12/12/17 20:00 93 12/12/17 20:00 2.0 12/12/17 20:00 Nasal Cannula 2.0 12/12/17 20:00 98.6 98 20 143/68 (93) 100 12/12/17 19:46 Nasal Cannula 2.0 28 12/12/17 19:45 100 Nasal Cannula 2.0 28 12/12/17 19:44 98 20 100 Nasal Cannula 2.0 28 12/12/17 19:33 91 20 99 Nasal Cannula 2.0 28 12/12/17 16:43 98 12/12/17 16:00 99.7 94 18 139/69 (92) 100 12/12/17 16:00 2.0 Height (Feet): 5 Height (Inches): 5.00 Weight (Pounds): 172 General Appearance: no acute distress HEENT: mucous membranes moist Respiratory/Chest: lungs clear, other - oxygen by nasal cannula Cardiovascular: normal rate Abdomen: soft, non tender, other - GT & rectal tube Extremities: other - edema decreased Neurologic/Psychiatric: aphasia Microbiology Date/Time Source Procedure Growth Status 12/10/17 16:05 Urine,Clean Catch Urine Culture - Final NO GROWTH AFTER 48 HOURS Complete Laboratory Tests Test 12/13/17 03:30 12/13/17 08:05 White Blood Count 8.6 K/UL (4.8-10.8) Red Blood Count 3.21 M/UL (4.70-6.10) L Hemoglobin 8.8 G/DL (14.2-18.0) L Hematocrit 26.2 % (42.0-52.0) L Mean Corpuscular Volume 82 FL (80-99) Mean Corpuscular Hemoglobin 27.4 PG (27.0-31.0) Mean Corpuscular Hemoglobin Concent 33.6 G/DL (32.0-36.0) Red Cell Distribution Width 15.9 % (11.6-14.8) H Platelet Count 380 K/UL (150-450) Mean Platelet Volume 5.8 FL (6.5-10.1) L Neutrophils (%) (Auto) 68.7 % (45.0-75.0) Lymphocytes (%) (Auto) 20.3 % (20.0-45.0) Monocytes (%) (Auto) 7.9 % (1.0-10.0) Eosinophils (%) (Auto) 2.4 % (0.0-3.0) Basophils (%) (Auto) 0.7 % (0.0-2.0) Sodium Level 142 MMOL/L (136-145) 143 MMOL/L (136-145) Potassium Level 4.5 MMOL/L (3.5-5.1) 4.6 MMOL/L (3.5-5.1) Chloride Level 111 MMOL/L (98-107) H 112 MMOL/L (98-107) H Carbon Dioxide Level 25 MMOL/L (21-32) 25 MMOL/L (21-32) Anion Gap 6 mmol/L (5-15) 6 mmol/L (5-15) Blood Urea Nitrogen 22 mg/dL (7-18) H 22 mg/dL (7-18) H Creatinine 1.4 MG/DL (0.55-1.30) H 1.3 MG/DL (0.55-1.30) Estimat Glomerular Filtration Rate mL/min (>60) mL/min (>60) Glucose Level 111 MG/DL (74-106) H 123 MG/DL (74-106) H Calcium Level 8.4 MG/DL (8.5-10.1) L 8.0 MG/DL (8.5-10.1) L Prothrombin Time 10.6 SEC (9.30-11.50) Prothromb Time International Ratio 1.0 (0.9-1.1) Total Bilirubin 0.3 MG/DL (0.2-1.0) Aspartate Amino Transf (AST/SGOT) 46 U/L (15-37) H Alanine Aminotransferase (ALT/SGPT) 80 U/L (12-78) H Alkaline Phosphatase 87 U/L (46-116) Total Protein 5.8 G/DL (6.4-8.2) L Albumin 1.8 G/DL (3.4-5.0) L Globulin 4.0 g/dL Albumin/Globulin Ratio 0.4 (1.0-2.7) L Current Medications Medications (Trade) Dose Ordered Sig/Ruthie Route PRN Reason Start Time Stop Time Status Last Admin Dose Admin Albuterol/ Ipratropium (Albuterol/ Ipratropium) 3 ml Q4H PRN HHN Shortness of Breath 12/12/17 15:15 12/17/17 15:14 Albuterol/ Ipratropium (Albuterol/ Ipratropium) 3 ml Q6HRT HHN 12/12/17 19:00 12/17/17 18:59 12/13/17 13:58 Aspirin (ASA) 162 mg DAILY NG 12/13/17 09:00 01/01/18 08:59 12/13/17 08:32 Atorvastatin Calcium (Lipitor) 40 mg BEDTIME ORAL 12/12/17 21:00 01/08/18 20:59 12/12/17 21:03 Chlorhexidine Gluconate (Rachael-Hex 2%) 1 applic DAILY@2000 TOPIC 12/12/17 20:00 01/03/18 19:59 12/12/17 21:03 Clonidine HCl (Catapres Tab) 0.1 mg Q4H PRN ORAL BLOOD PRESSURE 12/12/17 15:00 01/06/18 14:59 Dextrose (Dextrose 50%) 25 ml Q30M PRN IV Hypoglycemia 12/12/17 14:30 01/03/18 06:59 Dextrose (Dextrose 50%) 50 ml Q30M PRN IV Hypoglycemia 12/12/17 14:30 01/03/18 06:59 Dextrose/ Electrolytes 1,000 ml @ 50 mls/hr Q20H IV 12/12/17 15:00 01/03/18 14:59 12/13/17 11:00 Heparin Sodium (Porcine) (Heparin 5000 units/ml) 5,000 units EVERY 12 HOURS SUBQ 12/12/17 21:00 12/31/17 20:59 12/13/17 08:31 Insulin Aspart (NovoLOG) EVERY 6 HOURS SUBQ 12/12/17 18:00 01/01/18 20:59 12/13/17 06:15 Insulin Detemir (Levemir) 6 units BID SUBQ 12/12/17 18:00 01/07/18 08:59 12/13/17 08:30 Lansoprazole (Prevacid) 30 mg DAILY GT 12/13/17 09:00 01/09/18 08:59 12/13/17 08:32 Loperamide HCl (Imodium) 2 mg Q6H PRN NG Diarrhea 12/12/17 14:30 01/02/18 08:29 Metoprolol Tartrate (Lopressor) 25 mg Q12HR ORAL 12/13/17 09:00 01/12/18 08:59 12/13/17 08:32 Nitroglycerin (Ntg) 1 patch Q24H TDERMAL 12/13/17 09:00 01/01/18 08:59 12/13/17 08:32 Quetiapine Fumarate (SEROquel) 12.5 mg Q4H PRN GT agitation 12/12/17 15:00 01/03/18 14:59 Sucralfate (Carafate) 1 gm BID GT 12/12/17 18:00 12/31/17 17:59 12/13/17 08:32 Anam Cruz MD Dec 13, 2017 15:50
[2017-12-13 16:00] VITALS: BP 133/70
[2017-12-13] MEDS ORDERED: Sterile Water Irrig 1000ml IRRIG ONE (16:34)
[2017-12-13] MEDS ORDERED: NS 275ml ONE (16:34)
[2017-12-13] MEDS ORDERED: Tubing IV Secondary IV ONE (16:34)
--- NOTE | 2017-12-13 16:54 | General Progress Note ---
Assessment/Plan Problem List: (1) Hypoxemia ICD Codes: R09.02 - Hypoxemia SNOMED: 287703389 (2) Pneumonia ICD Codes: J18.9 - Pneumonia, unspecified organism SNOMED: 033703734 (3) Malnutrition ICD Codes: E46 - Unspecified protein-calorie malnutrition SNOMED: 01108105 (4) Renal failure (ARF), acute on chronic ICD Codes: N17.9 - Acute kidney failure, unspecified; N18.9 - Chronic kidney disease, unspecified SNOMED: 484048454 Qualifiers: Qualified Codes: N17.9 - Acute kidney failure, unspecified; N18.3 - Chronic kidney disease, stage 3 (moderate) (5) Respiratory failure ICD Codes: J96.90 - Respiratory failure, unspecified, unspecified whether with hypoxia or hypercapnia SNOMED: 653767606 Qualifiers: Qualified Codes: J96.00 - Acute respiratory failure, unspecified whether with hypoxia or hypercapnia (6) Severe sepsis ICD Codes: A41.9 - Sepsis, unspecified organism; R65.20 - Severe sepsis without septic shock SNOMED: 19019988 (7) UTI (urinary tract infection) ICD Codes: N39.0 - Urinary tract infection, site not specified SNOMED: 53196099 Qualifiers: Qualified Codes: N39.0 - Urinary tract infection, site not specified (8) NSTEMI (non-ST elevated myocardial infarction) ICD Codes: I21.4 - Non-ST elevation (NSTEMI) myocardial infarction SNOMED: 892950909 (9) Hypernatremia ICD Codes: E87.0 - Hyperosmolality and hypernatremia SNOMED: 86623229 (10) DM (11) Rhabdomyolysis ICD Codes: M62.82 - Rhabdomyolysis SNOMED: 142213878 Status: progressing Assessment/Plan respirator failure will do estefania eval not stable for dc abx per id bph r/p urinary stricture dehydration improving sepsis nstemi resolved afebrile Subjective ROS Limited/Unobtainable: Yes Allergies: Coded Allergies: TERAZOSIN (Verified Allergy, Unknown, 10/27/17) Objective Last 24 Hour Vital Signs Date Time Temp Pulse Resp B/P (MAP) Pulse Ox O2 Delivery O2 Flow Rate FiO2 12/13/17 16:00 98.7 90 20 133/70 (91) 100 12/13/17 16:00 Nasal Cannula 2.0 12/13/17 16:00 2.0 12/13/17 16:00 92 12/13/17 14:06 83 20 100 Nasal Cannula 2.0 28 12/13/17 13:56 90 14 96 Nasal Cannula 2.0 28 12/13/17 13:56 28 12/13/17 12:00 87 12/13/17 12:00 Nasal Cannula 2.0 12/13/17 12:00 98.4 92 20 120/69 (86) 100 12/13/17 12:00 2.0 12/13/17 09:00 Nasal Cannula 2.0 12/13/17 08:42 102 12/13/17 08:32 85 149/71 12/13/17 08:32 135/71 12/13/17 08:00 2.0 12/13/17 08:00 Nasal Cannula 2.0 12/13/17 08:00 98.6 95 20 136/68 (90) 100 12/13/17 07:31 85 20 100 Nasal Cannula 2.0 28 12/13/17 07:22 Nasal Cannula 2.0 28 12/13/17 07:22 28 12/13/17 07:22 93 16 99 Nasal Cannula 2.0 28 12/13/17 07:22 99 Nasal Cannula 2.0 28 12/13/17 04:00 100.0 98 20 149/71 (97) 100 12/13/17 04:00 Nasal Cannula 2.0 12/13/17 04:00 2.0 12/13/17 04:00 102 12/13/17 01:51 102 20 100 Nasal Cannula 2.0 28 12/13/17 01:40 100 20 98 Nasal Cannula 2.0 28 12/13/17 00:00 Nasal Cannula 2.0 12/13/17 00:00 2.0 12/13/17 00:00 93 12/13/17 00:00 99.7 96 20 148/75 (99) 100 12/12/17 20:00 93 12/12/17 20:00 2.0 12/12/17 20:00 Nasal Cannula 2.0 12/12/17 20:00 98.6 98 20 143/68 (93) 100 12/12/17 19:46 Nasal Cannula 2.0 28 12/12/17 19:45 100 Nasal Cannula 2.0 28 12/12/17 19:44 98 20 100 Nasal Cannula 2.0 28 12/12/17 19:33 91 20 99 Nasal Cannula 2.0 28 Intake and Output 12/12/17 12/13/17 19:00 07:00 Intake Total 580 ml 1195 ml Output Total 2300 ml 1950 ml Balance -1720 ml -755 ml Free Water 90 ml IV Total 450 ml 950 ml Tube Feeding 130 ml 65 ml Other 90 ml Output Urine Total 1500 ml 1800 ml Stool Total 800 ml 150 ml Laboratory Tests 12/13/17 03:30: White Blood Count 8.6, Red Blood Count 3.21L, Hemoglobin 8.8L, Hematocrit 26.2L , Mean Corpuscular Volume 82, Mean Corpuscular Hemoglobin 27.4, Mean Corpuscular Hemoglobin Concent 33.6, Red Cell Distribution Width 15.9H, Platelet Count 380, Mean Platelet Volume 5.8L, Neutrophils (%) (Auto) 68.7, Lymphocytes (%) (Auto) 20.3, Monocytes (%) (Auto) 7.9, Eosinophils (%) (Auto) 2.4, Basophils (%) (Auto) 0.7, Sodium Level 142, Potassium Level 4.5, Chloride Level 111H, Carbon Dioxide Level 25, Anion Gap 6, Blood Urea Nitrogen 22H, Creatinine 1.4H, Estimat Glomerular Filtration Rate , Glucose Level 111H, Calcium Level 8.4L 12/13/17 08:05: Sodium Level 143, Potassium Level 4.6, Chloride Level 112H, Carbon Dioxide Level 25, Anion Gap 6, Blood Urea Nitrogen 22H, Creatinine 1.3, Estimat Glomerular Filtration Rate , Glucose Level 123H, Calcium Level 8.0L, Prothrombin Time 10.6, Prothromb Time International Ratio 1.0, Total Bilirubin 0.3, Aspartate Amino Transf (AST/SGOT) 46H, Alanine Aminotransferase (ALT/SGPT) 80H, Alkaline Phosphatase 87, Total Protein 5.8L, Albumin 1.8L, Globulin 4.0, Albumin/Globulin Ratio 0.4L Height (Feet): 5 Height (Inches): 5.00 Weight (Pounds): 172 Cardiovascular: normal rate Respiratory/Chest: lungs clear Abdomen: soft Trish Matias MD Dec 13, 2017 16:54
[2017-12-13 20:00] VITALS: BP 143/90
[2017-12-13] MEDS: Atorvastatin 20mg tab ORAL SCH (20:30)
[2017-12-13] MEDS: Dyna-Hex 2% Top Sol 2oz TOPIC SCH (20:30)
--- NOTE | 2017-12-13 23:00 | Cardiology Progress Note ---
Assessment/Plan Assessment/Plan 1. Septic shock in combination with hypovolemic shock, continue IV fluid. 2. Sinus tachycardia, resolved , continue hydration. 3. Slight elevation of troponin I level could be of a variety of etiologies in this patient, although [id number] myocardial infarction type 2 due to demand ischemia should be considered. Continue ASA, statins not suggested for now due to transaminitis. 4. HTN, continue low dose B-blockers. Subjective Subjective Sinus rhythm at rate of 82. Objective Last 24 Hour Vital Signs Date Time Temp Pulse Resp B/P (MAP) Pulse Ox O2 Delivery O2 Flow Rate FiO2 12/13/17 20:31 82 143/90 12/13/17 19:09 92 18 99 Nasal Cannula 2.0 28 12/13/17 19:08 98 Nasal Cannula 2.0 28 12/13/17 19:08 Nasal Cannula 2.0 28 12/13/17 19:00 88 16 97 Nasal Cannula 2.0 28 12/13/17 16:00 98.7 90 20 133/70 (91) 100 12/13/17 16:00 Nasal Cannula 2.0 12/13/17 16:00 2.0 12/13/17 16:00 92 12/13/17 14:06 83 20 100 Nasal Cannula 2.0 28 12/13/17 13:56 90 14 96 Nasal Cannula 2.0 28 12/13/17 13:56 28 12/13/17 12:00 87 12/13/17 12:00 Nasal Cannula 2.0 12/13/17 12:00 98.4 92 20 120/69 (86) 100 12/13/17 12:00 2.0 12/13/17 09:00 Nasal Cannula 2.0 12/13/17 08:42 102 12/13/17 08:32 85 149/71 12/13/17 08:32 135/71 12/13/17 08:00 2.0 12/13/17 08:00 Nasal Cannula 2.0 12/13/17 08:00 98.6 95 20 136/68 (90) 100 12/13/17 07:31 85 20 100 Nasal Cannula 2.0 28 12/13/17 07:22 Nasal Cannula 2.0 28 12/13/17 07:22 28 12/13/17 07:22 93 16 99 Nasal Cannula 2.0 28 12/13/17 07:22 99 Nasal Cannula 2.0 28 12/13/17 04:00 100.0 98 20 149/71 (97) 100 12/13/17 04:00 Nasal Cannula 2.0 12/13/17 04:00 2.0 12/13/17 04:00 102 12/13/17 01:51 102 20 100 Nasal Cannula 2.0 28 12/13/17 01:40 100 20 98 Nasal Cannula 2.0 28 12/13/17 00:00 Nasal Cannula 2.0 12/13/17 00:00 2.0 12/13/17 00:00 93 12/13/17 00:00 99.7 96 20 148/75 (99) 100 Intake and Output 12/12/17 12/13/17 18:59 06:59 Intake Total 530 ml 1245 ml Output Total 2300 ml 1950 ml Balance -1770 ml -705 ml Free Water 90 ml IV Total 400 ml 1000 ml Tube Feeding 130 ml 65 ml Other 90 ml Output Urine Total 1500 ml 1800 ml Stool Total 800 ml 150 ml 2D Echo: FroM Oct 24:LVEF 65%, Mild LVH,Small Pericardial Eff.,Grade I LVDD, Mild AR Laboratory Tests Test 12/13/17 03:30 12/13/17 08:05 White Blood Count 8.6 K/UL (4.8-10.8) Red Blood Count 3.21 M/UL (4.70-6.10) L Hemoglobin 8.8 G/DL (14.2-18.0) L Hematocrit 26.2 % (42.0-52.0) L Mean Corpuscular Volume 82 FL (80-99) Mean Corpuscular Hemoglobin 27.4 PG (27.0-31.0) Mean Corpuscular Hemoglobin Concent 33.6 G/DL (32.0-36.0) Red Cell Distribution Width 15.9 % (11.6-14.8) H Platelet Count 380 K/UL (150-450) Mean Platelet Volume 5.8 FL (6.5-10.1) L Neutrophils (%) (Auto) 68.7 % (45.0-75.0) Lymphocytes (%) (Auto) 20.3 % (20.0-45.0) Monocytes (%) (Auto) 7.9 % (1.0-10.0) Eosinophils (%) (Auto) 2.4 % (0.0-3.0) Basophils (%) (Auto) 0.7 % (0.0-2.0) Sodium Level 142 MMOL/L (136-145) 143 MMOL/L (136-145) Potassium Level 4.5 MMOL/L (3.5-5.1) 4.6 MMOL/L (3.5-5.1) Chloride Level 111 MMOL/L (98-107) H 112 MMOL/L (98-107) H Carbon Dioxide Level 25 MMOL/L (21-32) 25 MMOL/L (21-32) Anion Gap 6 mmol/L (5-15) 6 mmol/L (5-15) Blood Urea Nitrogen 22 mg/dL (7-18) H 22 mg/dL (7-18) H Creatinine 1.4 MG/DL (0.55-1.30) H 1.3 MG/DL (0.55-1.30) Estimat Glomerular Filtration Rate mL/min (>60) mL/min (>60) Glucose Level 111 MG/DL (74-106) H 123 MG/DL (74-106) H Calcium Level 8.4 MG/DL (8.5-10.1) L 8.0 MG/DL (8.5-10.1) L Prothrombin Time 10.6 SEC (9.30-11.50) Prothromb Time International Ratio 1.0 (0.9-1.1) Total Bilirubin 0.3 MG/DL (0.2-1.0) Aspartate Amino Transf (AST/SGOT) 46 U/L (15-37) H Alanine Aminotransferase (ALT/SGPT) 80 U/L (12-78) H Alkaline Phosphatase 87 U/L (46-116) Total Protein 5.8 G/DL (6.4-8.2) L Albumin 1.8 G/DL (3.4-5.0) L Globulin 4.0 g/dL Albumin/Globulin Ratio 0.4 (1.0-2.7) L Objective HEENT: Atraumatic and normocephalic. Anicteric. Pupils are equal, round, and reactive to light and accommodation. Dry mucosal membranes. NECK: JVP less than 5 cm. No carotid bruit. Carotid upstrokes 2+ bilaterally. CARDIOVASCULAR: Normal S1, S2. Regular rhythm. Cannot appreciate any murmurs, gallops, or rubs. LUNGS: Diminished breath sounds in both lungs. ABDOMEN: Soft, nontender, and nondistended. Diminished bowel sounds. Presence of G-tube. No hepatosplenomegaly. EXTREMITIES: Contraction and pressure protection. No edema, clubbing, or cyanosis. Luke Estrada MD Dec 13, 2017 23:00
[2017-12-14] VITALS (7 sets, daily range): BP systolic 129–156; BP diastolic 72–101
[2017-12-14] MEDS: Albuterol/Ipratropium 3ml neb HHN SCH ×3 (03:04→13:31)
[2017-12-14 04:30] LABS: BASOPHILS % (AUTO) 0.9 % (0.0-2.0); EOSINOPHILS % (AUTO) 3.1 % (0.0-3.0); HEMATOCRIT 26.6 % (42.0-52.0); HEMOGLOBIN 8.7 G/DL (14.2-18.0); LYMPHOCYTES % (AUTO) 19.9 % (20.0-45.0); MEAN CORPUSCULAR VOLUME 82 FL (80-99); MONOCYTES % (AUTO) 7.5 % (1.0-10.0); NEUTROPHILS % (AUTO) 68.8 % (45.0-75.0); PLATELET COUNT 407 K/UL (150-450); RED BLOOD COUNT 3.25 M/UL (4.70-6.10); RED CELL DISTRIBUTION WIDTH 15.5 % (11.6-14.8); WHITE BLOOD COUNT 9.3 K/UL (4.8-10.8)
[2017-12-14] MEDS: D5W w/KCl 20mEq 1,000 ML IV SCH (05:02)
[2017-12-14] MEDS: NovoLOG Insulin Flexpen SUBQ SCH ×3 (05:05→17:42)
[2017-12-14 05:11] LABS: ANION GAP 9 mmol/L (5-15); BLOOD UREA NITROGEN 22 mg/dL (7-18); CALCIUM 8.1 MG/DL (8.5-10.1); CARBON DIOXIDE 25 MMOL/L (21-32); CHLORIDE 110 MMOL/L (98-107); CREATININE 1.3 MG/DL (0.55-1.30); POTASSIUM 4.8 MMOL/L (3.5-5.1); SODIUM 144 MMOL/L (136-145)
--- NOTE | 2017-12-14 07:46 | General Progress Note ---
Assessment/Plan Problem List: (1) Renal failure (ARF), acute on chronic ICD Codes: N17.9 - Acute kidney failure, unspecified; N18.9 - Chronic kidney disease, unspecified SNOMED: 531968564 Qualifiers: Qualified Codes: N17.9 - Acute kidney failure, unspecified; N18.3 - Chronic kidney disease, stage 3 (moderate) (2) NSTEMI (non-ST elevated myocardial infarction) ICD Codes: I21.4 - Non-ST elevation (NSTEMI) myocardial infarction SNOMED: 035322530 (3) Hypernatremia ICD Codes: E87.0 - Hyperosmolality and hypernatremia SNOMED: 36966003 (4) DM (5) Rhabdomyolysis ICD Codes: M62.82 - Rhabdomyolysis SNOMED: 077314299 (6) Hypoxemia ICD Codes: R09.02 - Hypoxemia SNOMED: 989473022 (7) Severe sepsis ICD Codes: A41.9 - Sepsis, unspecified organism; R65.20 - Severe sepsis without septic shock SNOMED: 35598501 Assessment/Plan glucose values are stable - continue Levemir 6 units bid - continue NISS every 6 hours Subjective ROS Limited/Unobtainable: Yes Allergies: Coded Allergies: TERAZOSIN (Verified Allergy, Unknown, 10/27/17) Subjective events noted Objective Last 24 Hour Vital Signs Date Time Temp Pulse Resp B/P (MAP) Pulse Ox O2 Delivery O2 Flow Rate FiO2 12/14/17 07:10 Nasal Cannula 2.0 28 12/14/17 07:09 94 16 100 Nasal Cannula 2.0 28 12/14/17 07:08 100 Nasal Cannula 2.0 28 12/14/17 04:00 102 12/14/17 04:00 2.0 12/14/17 04:00 98.3 87 20 133/75 (94) 100 12/14/17 04:00 2.0 12/14/17 04:00 Nasal Cannula 2.0 12/14/17 01:40 91 18 100 Nasal Cannula 2.0 28 12/14/17 01:30 89 18 98 Nasal Cannula 2.0 28 12/14/17 00:00 2.0 12/14/17 00:00 90 12/14/17 00:00 98.1 80 20 129/72 (91) 100 12/14/17 00:00 Nasal Cannula 2.0 12/13/17 20:31 82 143/90 12/13/17 20:00 2.0 12/13/17 20:00 98.4 88 18 143/90 (107) 100 12/13/17 20:00 Nasal Cannula 2.0 12/13/17 20:00 91 12/13/17 19:09 92 18 99 Nasal Cannula 2.0 28 12/13/17 19:08 98 Nasal Cannula 2.0 28 12/13/17 19:08 Nasal Cannula 2.0 28 12/13/17 19:00 88 16 97 Nasal Cannula 2.0 28 12/13/17 16:00 98.7 90 20 133/70 (91) 100 12/13/17 16:00 Nasal Cannula 2.0 12/13/17 16:00 2.0 12/13/17 16:00 92 12/13/17 14:06 83 20 100 Nasal Cannula 2.0 28 12/13/17 13:56 90 14 96 Nasal Cannula 2.0 28 12/13/17 13:56 28 12/13/17 12:00 87 12/13/17 12:00 Nasal Cannula 2.0 12/13/17 12:00 98.4 92 20 120/69 (86) 100 12/13/17 12:00 2.0 12/13/17 09:00 Nasal Cannula 2.0 12/13/17 08:42 102 12/13/17 08:32 85 149/71 12/13/17 08:32 135/71 12/13/17 08:00 2.0 12/13/17 08:00 Nasal Cannula 2.0 12/13/17 08:00 98.6 95 20 136/68 (90) 100 Intake and Output 12/13/17 12/14/17 19:00 07:00 Intake Total 680 ml 1428 ml Output Total 1300 ml 850 ml Balance -620 ml 578 ml Free Water 250 ml 50 ml IV Total 300 ml 598 ml Tube Feeding 130 ml 780 ml Output Urine Total 1200 ml 800 ml Stool Total 100 ml 50 ml Laboratory Tests 12/13/17 08:05: Prothrombin Time 10.6, Prothromb Time International Ratio 1.0, Sodium Level 143 , Potassium Level 4.6, Chloride Level 112H, Carbon Dioxide Level 25, Anion Gap 6 , Blood Urea Nitrogen 22H, Creatinine 1.3, Estimat Glomerular Filtration Rate , Glucose Level 123H, Calcium Level 8.0L, Total Bilirubin 0.3, Aspartate Amino Transf (AST/SGOT) 46H, Alanine Aminotransferase (ALT/SGPT) 80H, Alkaline Phosphatase 87, Total Protein 5.8L, Albumin 1.8L, Globulin 4.0, Albumin/ Globulin Ratio 0.4L 12/14/17 03:30: Sodium Level 144, Potassium Level 4.8, Chloride Level 110H, Carbon Dioxide Level 25, Anion Gap 9, Blood Urea Nitrogen 22H, Creatinine 1.3, Estimat Glomerular Filtration Rate , Glucose Level 115H, Calcium Level 8.1L, White Blood Count 9.3, Red Blood Count 3.25L, Hemoglobin 8.7L, Hematocrit 26.6L, Mean Corpuscular Volume 82, Mean Corpuscular Hemoglobin 26.9L, Mean Corpuscular Hemoglobin Concent 32.9, Red Cell Distribution Width 15.5H, Platelet Count 407, Mean Platelet Volume 5.9L, Neutrophils (%) (Auto) 68.8, Lymphocytes (%) (Auto) 19.9L, Monocytes (%) (Auto) 7.5, Eosinophils (%) (Auto) 3.1H, Basophils (%) ( Auto) 0.9 Height (Feet): 5 Height (Inches): 5.00 Weight (Pounds): 172 General Appearance: no apparent distress Neck: normal alignment Cardiovascular: normal rate Respiratory/Chest: decreased breath sounds Abdomen: normal bowel sounds Objective Current Medications Medications (Trade) Dose Ordered Sig/Ruthie Route PRN Reason Start Time Stop Time Status Last Admin Dose Admin Albuterol/ Ipratropium (Albuterol/ Ipratropium) 3 ml Q4H PRN HHN Shortness of Breath 12/12/17 15:15 12/17/17 15:14 Albuterol/ Ipratropium (Albuterol/ Ipratropium) 3 ml Q6HRT HHN 12/12/17 19:00 12/17/17 18:59 12/14/17 07:09 Aspirin (ASA) 162 mg DAILY NG 12/13/17 09:00 01/01/18 08:59 12/13/17 08:32 Atorvastatin Calcium (Lipitor) 40 mg BEDTIME ORAL 12/12/17 21:00 01/08/18 20:59 12/13/17 20:30 Chlorhexidine Gluconate (Rachael-Hex 2%) 1 applic DAILY@2000 TOPIC 12/12/17 20:00 01/03/18 19:59 12/13/17 20:30 Clonidine HCl (Catapres Tab) 0.1 mg Q4H PRN ORAL BLOOD PRESSURE 12/12/17 15:00 01/06/18 14:59 Dextrose (Dextrose 50%) 25 ml Q30M PRN IV Hypoglycemia 12/12/17 14:30 01/03/18 06:59 Dextrose (Dextrose 50%) 50 ml Q30M PRN IV Hypoglycemia 12/12/17 14:30 01/03/18 06:59 Dextrose/ Electrolytes 1,000 ml @ 50 mls/hr Q20H IV 12/12/17 15:00 01/03/18 14:59 12/14/17 05:02 Heparin Sodium (Porcine) (Heparin 5000 units/ml) 5,000 units EVERY 12 HOURS SUBQ 12/12/17 21:00 12/31/17 20:59 12/13/17 20:32 Insulin Aspart (NovoLOG) EVERY 6 HOURS SUBQ 12/12/17 18:00 01/01/18 20:59 12/14/17 05:05 Insulin Detemir (Levemir) 6 units BID SUBQ 12/12/17 18:00 01/07/18 08:59 12/13/17 18:00 Lansoprazole (Prevacid) 30 mg DAILY GT 12/13/17 09:00 01/09/18 08:59 12/13/17 08:32 Loperamide HCl (Imodium) 2 mg Q6H PRN NG Diarrhea 12/12/17 14:30 01/02/18 08:29 Metoprolol Tartrate (Lopressor) 25 mg Q12HR ORAL 12/13/17 09:00 01/12/18 08:59 12/13/17 20:31 Nitroglycerin (Ntg) 1 patch Q24H TDERMAL 12/13/17 09:00 01/01/18 08:59 12/13/17 08:32 Quetiapine Fumarate (SEROquel) 12.5 mg Q4H PRN GT agitation 12/12/17 15:00 01/03/18 14:59 Sucralfate (Carafate) 1 gm BID GT 12/12/17 18:00 12/31/17 17:59 12/13/17 18:00 Item Value Date Time Bedside Blood Glucose 135 mg/dl H 12/14/17 0505 Bedside Blood Glucose 117 mg/dl 12/13/17 2325 Bedside Blood Glucose 108 mg/dl 12/13/17 1800 Bedside Blood Glucose 100 mg/dl 12/13/17 1200 Bedside Blood Glucose 135 mg/dl H 12/13/17 0830 Bedside Blood Glucose 139 mg/dl H 12/13/17 0615 Stefan Leon MD Dec 14, 2017 07:46
[2017-12-14] MEDS: Aspirin Baby 81mg NG SCH (09:00)
[2017-12-14] MEDS: Sucralfate 1gm tab GT SCH (09:00)
[2017-12-14] MEDS: Metoprolol 25mg tab ORAL SCH (09:00)
[2017-12-14] MEDS: Nitroglycerin Patch 0.4mg TDERMAL SCH (10:27)
[2017-12-14] MEDS: Heparin 5000 units/ml inj SUBQ SCH ×2 (10:30→20:30)
[2017-12-14] MEDS: Levemir Flexpen SUBQ SCH ×2 (10:31→17:42)
--- NOTE | 2017-12-14 10:34 | Nephrology Progress Note ---
Assessment/Plan Problem List: (1) Renal failure (ARF), acute on chronic (2) Respiratory failure (3) Hypernatremia (4) Rhabdomyolysis (5) DM Assessment requiring BIPAP Acute respiratory failure- now extubated, but on BIPAP again Acute Renal failure- resolved Severe Dehydration PEG Sepsis / UTI / Pneumonia Hypotension- Septic Shock High Lipase Rhabdo- High CPK Elevated Troponin Dementia Plan one dose Lasix- DC IV fluids- 2D echo- Last Echo 10/30 transfusion pulmonary support- s/p intubation K supplement as needed monitor CK, now normalized Gastric support Antibiotics Monitor renal parameters Per orders Subjective ROS Limited/Unobtainable: Yes Objective Objective Last 24 Hour Vital Signs Date Time Temp Pulse Resp B/P (MAP) Pulse Ox O2 Delivery O2 Flow Rate FiO2 12/14/17 08:00 Nasal Cannula 2.0 12/14/17 08:00 30 12/14/17 07:20 102 22 100 Nasal Cannula 2.0 28 12/14/17 07:10 Nasal Cannula 2.0 28 12/14/17 07:09 94 16 100 Nasal Cannula 2.0 28 12/14/17 07:08 100 Nasal Cannula 2.0 28 12/14/17 04:00 102 12/14/17 04:00 2.0 12/14/17 04:00 98.3 87 20 133/75 (94) 100 12/14/17 04:00 2.0 12/14/17 04:00 Nasal Cannula 2.0 12/14/17 01:40 91 18 100 Nasal Cannula 2.0 28 12/14/17 01:30 89 18 98 Nasal Cannula 2.0 28 12/14/17 00:00 2.0 12/14/17 00:00 90 12/14/17 00:00 98.1 80 20 129/72 (91) 100 12/14/17 00:00 Nasal Cannula 2.0 12/13/17 20:31 82 143/90 12/13/17 20:00 2.0 12/13/17 20:00 98.4 88 18 143/90 (107) 100 12/13/17 20:00 Nasal Cannula 2.0 12/13/17 20:00 91 12/13/17 19:09 92 18 99 Nasal Cannula 2.0 28 12/13/17 19:08 98 Nasal Cannula 2.0 28 12/13/17 19:08 Nasal Cannula 2.0 28 12/13/17 19:00 88 16 97 Nasal Cannula 2.0 28 12/13/17 16:00 98.7 90 20 133/70 (91) 100 12/13/17 16:00 Nasal Cannula 2.0 12/13/17 16:00 2.0 12/13/17 16:00 92 12/13/17 14:06 83 20 100 Nasal Cannula 2.0 28 12/13/17 13:56 90 14 96 Nasal Cannula 2.0 28 12/13/17 13:56 28 12/13/17 12:00 87 12/13/17 12:00 Nasal Cannula 2.0 12/13/17 12:00 98.4 92 20 120/69 (86) 100 12/13/17 12:00 2.0 Intake and Output 12/13/17 12/14/17 19:00 07:00 Intake Total 680 ml 1428 ml Output Total 1300 ml 850 ml Balance -620 ml 578 ml Free Water 250 ml 50 ml IV Total 300 ml 598 ml Tube Feeding 130 ml 780 ml Output Urine Total 1200 ml 800 ml Stool Total 100 ml 50 ml Laboratory Tests 12/14/17 03:30: White Blood Count 9.3, Red Blood Count 3.25L, Hemoglobin 8.7L, Hematocrit 26.6L , Mean Corpuscular Volume 82, Mean Corpuscular Hemoglobin 26.9L, Mean Corpuscular Hemoglobin Concent 32.9, Red Cell Distribution Width 15.5H, Platelet Count 407, Mean Platelet Volume 5.9L, Neutrophils (%) (Auto) 68.8, Lymphocytes (%) (Auto) 19.9L, Monocytes (%) (Auto) 7.5, Eosinophils (%) (Auto) 3.1H, Basophils (%) (Auto) 0.9, Sodium Level 144, Potassium Level 4.8, Chloride Level 110H, Carbon Dioxide Level 25, Anion Gap 9, Blood Urea Nitrogen 22H, Creatinine 1.3, Estimat Glomerular Filtration Rate , Glucose Level 115H, Calcium Level 8.1L 12/14/17 09:05: Arterial Blood pH 7.270L, Arterial Blood Partial Pressure CO2 56.5*H, Arterial Blood Partial Pressure O2 84.3, Arterial Blood HCO3 25.7, Arterial Blood Oxygen Saturation 93.6L, Arterial Blood Base Excess -1.7, Ebenezer Test Positive Height (Feet): 5 Height (Inches): 5.00 Weight (Pounds): 172 General Appearance: moderate distress Cardiovascular: tachycardia Respiratory/Chest: decreased breath sounds Abdomen: distended Objective no other change Randolph Fernandes MD Dec 14, 2017 10:34
--- NOTE | 2017-12-14 11:53 | Infectious Diseases Prog Note ---
Assessment/Plan Assessment/Plan A; Sepsis, SIRS Pancreatitis Rhabdomyolysis Acute respiratory failure Acute renal failure improving Dehydration Elevated transaminase P: repeat CXR Start on Cefepime Subjective ROS Limited/Unobtainable: Yes Respiratory: Reports: other - was put in BIPAP Allergies: Coded Allergies: TERAZOSIN (Verified Allergy, Unknown, 10/27/17) Objective Vital Signs Last 24 Hour Vital Signs Date Time Temp Pulse Resp B/P (MAP) Pulse Ox O2 Delivery O2 Flow Rate FiO2 12/14/17 10:35 104 26 98 Facial 30 12/14/17 10:27 146/102 12/14/17 09:00 117 146/102 12/14/17 08:35 102 33 100 Facial 30 12/14/17 08:00 Nasal Cannula 2.0 12/14/17 08:00 99.1 117 20 156/101 (119) 100 12/14/17 08:00 30 12/14/17 07:43 100 12/14/17 07:20 102 22 100 Nasal Cannula 2.0 28 12/14/17 07:10 Nasal Cannula 2.0 28 12/14/17 07:09 94 16 100 Nasal Cannula 2.0 28 12/14/17 07:08 100 Nasal Cannula 2.0 28 12/14/17 04:00 102 12/14/17 04:00 2.0 12/14/17 04:00 98.3 87 20 133/75 (94) 100 12/14/17 04:00 2.0 12/14/17 04:00 Nasal Cannula 2.0 12/14/17 01:40 91 18 100 Nasal Cannula 2.0 28 12/14/17 01:30 89 18 98 Nasal Cannula 2.0 28 12/14/17 00:00 2.0 12/14/17 00:00 90 12/14/17 00:00 98.1 80 20 129/72 (91) 100 12/14/17 00:00 Nasal Cannula 2.0 12/13/17 20:31 82 143/90 12/13/17 20:00 2.0 12/13/17 20:00 98.4 88 18 143/90 (107) 100 12/13/17 20:00 Nasal Cannula 2.0 12/13/17 20:00 91 12/13/17 19:09 92 18 99 Nasal Cannula 2.0 28 12/13/17 19:08 98 Nasal Cannula 2.0 28 12/13/17 19:08 Nasal Cannula 2.0 28 12/13/17 19:00 88 16 97 Nasal Cannula 2.0 28 12/13/17 16:00 98.7 90 20 133/70 (91) 100 12/13/17 16:00 Nasal Cannula 2.0 12/13/17 16:00 2.0 12/13/17 16:00 92 12/13/17 14:06 83 20 100 Nasal Cannula 2.0 28 12/13/17 13:56 90 14 96 Nasal Cannula 2.0 28 12/13/17 13:56 28 12/13/17 12:00 87 12/13/17 12:00 Nasal Cannula 2.0 12/13/17 12:00 98.4 92 20 120/69 (86) 100 12/13/17 12:00 2.0 Height (Feet): 5 Height (Inches): 5.00 Weight (Pounds): 172 HEENT: mucous membranes moist Respiratory/Chest: decreased breath sounds, other - on BIPAP Cardiovascular: tachycardia, other - R arm PICC line Abdomen: soft, non tender, other - GT feeding Extremities: other - generalized edema Neurologic/Psychiatric: unresponsiveness Laboratory Tests Test 12/14/17 03:30 12/14/17 09:05 White Blood Count 9.3 K/UL (4.8-10.8) Red Blood Count 3.25 M/UL (4.70-6.10) L Hemoglobin 8.7 G/DL (14.2-18.0) L Hematocrit 26.6 % (42.0-52.0) L Mean Corpuscular Volume 82 FL (80-99) Mean Corpuscular Hemoglobin 26.9 PG (27.0-31.0) L Mean Corpuscular Hemoglobin Concent 32.9 G/DL (32.0-36.0) Red Cell Distribution Width 15.5 % (11.6-14.8) H Platelet Count 407 K/UL (150-450) Mean Platelet Volume 5.9 FL (6.5-10.1) L Neutrophils (%) (Auto) 68.8 % (45.0-75.0) Lymphocytes (%) (Auto) 19.9 % (20.0-45.0) L Monocytes (%) (Auto) 7.5 % (1.0-10.0) Eosinophils (%) (Auto) 3.1 % (0.0-3.0) H Basophils (%) (Auto) 0.9 % (0.0-2.0) Sodium Level 144 MMOL/L (136-145) Potassium Level 4.8 MMOL/L (3.5-5.1) Chloride Level 110 MMOL/L (98-107) H Carbon Dioxide Level 25 MMOL/L (21-32) Anion Gap 9 mmol/L (5-15) Blood Urea Nitrogen 22 mg/dL (7-18) H Creatinine 1.3 MG/DL (0.55-1.30) Estimat Glomerular Filtration Rate mL/min (>60) Glucose Level 115 MG/DL (74-106) H Calcium Level 8.1 MG/DL (8.5-10.1) L C-Reactive Protein, Quantitative 6.1 mg/dL (0.00-0.90) H Arterial Blood pH 7.270 (7.350-7.450) Arterial Blood Partial Pressure CO2 56.5 mmHg (35.0-45.0) *H Arterial Blood Partial Pressure O2 84.3 mmHg (75.0-100.0) Arterial Blood HCO3 25.7 mmol/L (22.0-26.0) Arterial Blood Oxygen Saturation 93.6 % (95-100) L Arterial Blood Base Excess -1.7 (-2-2) Ebenezer Test Positive Current Medications Medications (Trade) Dose Ordered Sig/Ruthie Route PRN Reason Start Time Stop Time Status Last Admin Dose Admin Albuterol/ Ipratropium (Albuterol/ Ipratropium) 3 ml Q4H PRN HHN Shortness of Breath 12/12/17 15:15 12/17/17 15:14 Albuterol/ Ipratropium (Albuterol/ Ipratropium) 3 ml Q6HRT HHN 12/12/17 19:00 12/17/17 18:59 12/14/17 07:09 Aspirin (ASA) 162 mg DAILY NG 12/13/17 09:00 01/01/18 08:59 12/14/17 09:00 Atorvastatin Calcium (Lipitor) 40 mg BEDTIME ORAL 12/12/17 21:00 01/08/18 20:59 12/13/17 20:30 Chlorhexidine Gluconate (Rachael-Hex 2%) 1 applic DAILY@2000 TOPIC 12/12/17 20:00 01/03/18 19:59 12/13/17 20:30 Clonidine HCl (Catapres Tab) 0.1 mg Q4H PRN ORAL BLOOD PRESSURE 12/12/17 15:00 01/06/18 14:59 Dextrose (Dextrose 50%) 25 ml Q30M PRN IV Hypoglycemia 12/12/17 14:30 01/03/18 06:59 Dextrose (Dextrose 50%) 50 ml Q30M PRN IV Hypoglycemia 12/12/17 14:30 01/03/18 06:59 Heparin Sodium (Porcine) (Heparin 5000 units/ml) 5,000 units EVERY 12 HOURS SUBQ 12/12/17 21:00 12/31/17 20:59 12/14/17 10:30 Insulin Aspart (NovoLOG) EVERY 6 HOURS SUBQ 12/12/17 18:00 01/01/18 20:59 12/14/17 05:05 Insulin Detemir (Levemir) 6 units BID SUBQ 12/12/17 18:00 01/07/18 08:59 12/14/17 10:31 Lansoprazole (Prevacid) 30 mg DAILY GT 12/13/17 09:00 01/09/18 08:59 12/14/17 09:00 Loperamide HCl (Imodium) 2 mg Q6H PRN NG Diarrhea 12/12/17 14:30 01/02/18 08:29 Metoprolol Tartrate (Lopressor) 25 mg Q12HR ORAL 12/13/17 09:00 01/12/18 08:59 12/14/17 09:00 Nitroglycerin (Ntg) 1 patch Q24H TDERMAL 12/13/17 09:00 01/01/18 08:59 12/14/17 10:27 Quetiapine Fumarate (SEROquel) 12.5 mg Q4H PRN GT agitation 12/12/17 15:00 01/03/18 14:59 Anam Cruz MD Dec 14, 2017 11:53
--- NOTE | 2017-12-14 11:57 | GI Progress Note ---
Assessment/Plan Problems: (1) Malnutrition ICD Codes: E46 - Unspecified protein-calorie malnutrition SNOMED: 19270583 (2) Pancreatitis ICD Codes: K85.90 - Acute pancreatitis without necrosis or infection, unspecified SNOMED: 66640379 Qualifiers: Qualified Codes: K85.90 - Acute pancreatitis without necrosis or infection, unspecified (3) Constipation ICD Codes: K59.00 - Constipation, unspecified SNOMED: 03268210 (4) PEG (percutaneous endoscopic gastrostomy) status ICD Codes: Z93.1 - Gastrostomy status SNOMED: 494402882, 010635925 (5) DM (6) Severe sepsis ICD Codes: A41.9 - Sepsis, unspecified organism; R65.20 - Severe sepsis without septic shock SNOMED: 42020638 Status: unchanged Status Narrative Discussed with Dr. Coronel. Assessment/Plan transaminitis >> hep panel negative prn transfusions on BIBPAP, hold GTFs Imodium prn rectal tube fu nephrology fu labs ppi BID trend LFTs The patient was seen and examined at bedside and all new and available data was reviewed in the patients chart. I agree with the above findings, impression and plan. (Patient seen earlier today. Signature stamp does not reflect patient encounter time.). - Juan Coronel MD Subjective Subjective limited Objective Last 24 Hour Vital Signs Date Time Temp Pulse Resp B/P (MAP) Pulse Ox O2 Delivery O2 Flow Rate FiO2 12/14/17 10:35 104 26 98 Facial 30 12/14/17 10:27 146/102 12/14/17 09:00 117 146/102 12/14/17 08:35 102 33 100 Facial 30 12/14/17 08:00 Nasal Cannula 2.0 12/14/17 08:00 99.1 117 20 156/101 (119) 100 12/14/17 08:00 30 12/14/17 07:43 100 12/14/17 07:20 102 22 100 Nasal Cannula 2.0 28 12/14/17 07:10 Nasal Cannula 2.0 28 12/14/17 07:09 94 16 100 Nasal Cannula 2.0 28 12/14/17 07:08 100 Nasal Cannula 2.0 28 12/14/17 04:00 102 12/14/17 04:00 2.0 12/14/17 04:00 98.3 87 20 133/75 (94) 100 12/14/17 04:00 2.0 12/14/17 04:00 Nasal Cannula 2.0 12/14/17 01:40 91 18 100 Nasal Cannula 2.0 28 12/14/17 01:30 89 18 98 Nasal Cannula 2.0 28 12/14/17 00:00 2.0 12/14/17 00:00 90 12/14/17 00:00 98.1 80 20 129/72 (91) 100 12/14/17 00:00 Nasal Cannula 2.0 12/13/17 20:31 82 143/90 12/13/17 20:00 2.0 12/13/17 20:00 98.4 88 18 143/90 (107) 100 12/13/17 20:00 Nasal Cannula 2.0 12/13/17 20:00 91 12/13/17 19:09 92 18 99 Nasal Cannula 2.0 28 12/13/17 19:08 98 Nasal Cannula 2.0 28 12/13/17 19:08 Nasal Cannula 2.0 28 12/13/17 19:00 88 16 97 Nasal Cannula 2.0 28 12/13/17 16:00 98.7 90 20 133/70 (91) 100 12/13/17 16:00 Nasal Cannula 2.0 12/13/17 16:00 2.0 12/13/17 16:00 92 12/13/17 14:06 83 20 100 Nasal Cannula 2.0 28 12/13/17 13:56 90 14 96 Nasal Cannula 2.0 28 12/13/17 13:56 28 12/13/17 12:00 87 12/13/17 12:00 Nasal Cannula 2.0 12/13/17 12:00 98.4 92 20 120/69 (86) 100 12/13/17 12:00 2.0 Intake and Output 12/13/17 12/14/17 19:00 07:00 Intake Total 680 ml 1428 ml Output Total 1300 ml 850 ml Balance -620 ml 578 ml Free Water 250 ml 50 ml IV Total 300 ml 598 ml Tube Feeding 130 ml 780 ml Output Urine Total 1200 ml 800 ml Stool Total 100 ml 50 ml Laboratory Tests Test 12/14/17 03:30 12/14/17 09:05 White Blood Count 9.3 K/UL (4.8-10.8) Red Blood Count 3.25 M/UL (4.70-6.10) L Hemoglobin 8.7 G/DL (14.2-18.0) L Hematocrit 26.6 % (42.0-52.0) L Mean Corpuscular Volume 82 FL (80-99) Mean Corpuscular Hemoglobin 26.9 PG (27.0-31.0) L Mean Corpuscular Hemoglobin Concent 32.9 G/DL (32.0-36.0) Red Cell Distribution Width 15.5 % (11.6-14.8) H Platelet Count 407 K/UL (150-450) Mean Platelet Volume 5.9 FL (6.5-10.1) L Neutrophils (%) (Auto) 68.8 % (45.0-75.0) Lymphocytes (%) (Auto) 19.9 % (20.0-45.0) L Monocytes (%) (Auto) 7.5 % (1.0-10.0) Eosinophils (%) (Auto) 3.1 % (0.0-3.0) H Basophils (%) (Auto) 0.9 % (0.0-2.0) Sodium Level 144 MMOL/L (136-145) Potassium Level 4.8 MMOL/L (3.5-5.1) Chloride Level 110 MMOL/L (98-107) H Carbon Dioxide Level 25 MMOL/L (21-32) Anion Gap 9 mmol/L (5-15) Blood Urea Nitrogen 22 mg/dL (7-18) H Creatinine 1.3 MG/DL (0.55-1.30) Estimat Glomerular Filtration Rate mL/min (>60) Glucose Level 115 MG/DL (74-106) H Calcium Level 8.1 MG/DL (8.5-10.1) L C-Reactive Protein, Quantitative 6.1 mg/dL (0.00-0.90) H Arterial Blood pH 7.270 (7.350-7.450) Arterial Blood Partial Pressure CO2 56.5 mmHg (35.0-45.0) *H Arterial Blood Partial Pressure O2 84.3 mmHg (75.0-100.0) Arterial Blood HCO3 25.7 mmol/L (22.0-26.0) Arterial Blood Oxygen Saturation 93.6 % (95-100) L Arterial Blood Base Excess -1.7 (-2-2) Ebenezer Test Positive Height (Feet): 5 Height (Inches): 5.00 Weight (Pounds): 172 General Appearance: WD/WN, no apparent distress, alert Cardiovascular: normal rate Respiratory/Chest: normal breath sounds, no respiratory distress Abdominal Exam: normal bowel sounds, non tender, soft Extremities: normal range of motion, non-tender Kishan Hopkins NP Dec 14, 2017 11:57
[2017-12-14] MEDS ORDERED: Cefepime HCl 1 GM in D5W 55 ML IVPB SCH (13:00)
--- NOTE | 2017-12-14 13:53 | General Progress Note ---
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 --> Anemia w/u has been reviewed. trend CBC daily as needed --> No evidence of hemolysis noted, peripheral smear has been reviewed --> Hgb goal >7. Transfuse as needed prn basis --> Blood tx: 12/10, # Leukocytosis. Likely related to underlying infection vs reactive process. --> Imaging has been reviewed. Shows stable cardiomegaly. slight haziness of the pulmonary vascularity suggests mild interstitial edema. Unchanged elevation of the left hemidiaphragm. --> Blood cx and urine cx also reviewed --> on abx, empiric rx # Thrombocytopenia. Potential causes multifactorial, now better, several days was 50-100k, now has improved. Hep panel negative and HIV is negative, abd us shows no significant cirrhosis or hsm, Abx and other meds have been reviewed --> Ok for ppx if heparin >50k with heparin sq --> currently appears to have stabilized # Constipation. KUB evaluate abdominal distention - No acute process. findings have been reviewed --> electrolyte correction --> prevacid GT --> as per gi recs # Sepsis. s/p abx # Malnutrition. --> s/p peg GREATLY APPRECIATE CONSULTATION. Subjective Date patient seen: Dec 14, 2017 ROS Limited/Unobtainable: Yes Hematologic/Lymphatic: Reports: anemia Allergies: Coded Allergies: TERAZOSIN (Verified Allergy, Unknown, 10/27/17) Subjective Pt awake and alert but nonverbal. Back on bipap. Objective Last 24 Hour Vital Signs Date Time Temp Pulse Resp B/P (MAP) Pulse Ox O2 Delivery O2 Flow Rate FiO2 12/14/17 13:38 28 12/14/17 13:31 90 29 100 Bi-pap 2.0 28 12/14/17 13:29 90 29 100 Facial 30 12/14/17 10:35 104 26 98 Facial 30 12/14/17 10:27 146/102 12/14/17 09:00 117 146/102 12/14/17 08:35 102 33 100 Facial 30 12/14/17 08:00 Nasal Cannula 2.0 12/14/17 08:00 99.1 117 20 156/101 (119) 100 12/14/17 08:00 30 12/14/17 07:43 100 12/14/17 07:20 102 22 100 Nasal Cannula 2.0 28 12/14/17 07:10 Nasal Cannula 2.0 28 12/14/17 07:09 94 16 100 Nasal Cannula 2.0 28 12/14/17 07:08 100 Nasal Cannula 2.0 28 12/14/17 04:00 102 12/14/17 04:00 2.0 12/14/17 04:00 98.3 87 20 133/75 (94) 100 12/14/17 04:00 2.0 12/14/17 04:00 Nasal Cannula 2.0 12/14/17 01:40 91 18 100 Nasal Cannula 2.0 28 12/14/17 01:30 89 18 98 Nasal Cannula 2.0 28 12/14/17 00:00 2.0 12/14/17 00:00 90 12/14/17 00:00 98.1 80 20 129/72 (91) 100 12/14/17 00:00 Nasal Cannula 2.0 12/13/17 20:31 82 143/90 12/13/17 20:00 2.0 12/13/17 20:00 98.4 88 18 143/90 (107) 100 12/13/17 20:00 Nasal Cannula 2.0 12/13/17 20:00 91 12/13/17 19:09 92 18 99 Nasal Cannula 2.0 28 12/13/17 19:08 98 Nasal Cannula 2.0 28 12/13/17 19:08 Nasal Cannula 2.0 28 12/13/17 19:00 88 16 97 Nasal Cannula 2.0 28 12/13/17 16:00 98.7 90 20 133/70 (91) 100 12/13/17 16:00 Nasal Cannula 2.0 12/13/17 16:00 2.0 12/13/17 16:00 92 12/13/17 14:06 83 20 100 Nasal Cannula 2.0 28 12/13/17 13:56 90 14 96 Nasal Cannula 2.0 28 12/13/17 13:56 28 Intake and Output 12/13/17 12/14/17 19:00 07:00 Intake Total 680 ml 1428 ml Output Total 1300 ml 850 ml Balance -620 ml 578 ml Free Water 250 ml 50 ml IV Total 300 ml 598 ml Tube Feeding 130 ml 780 ml Output Urine Total 1200 ml 800 ml Stool Total 100 ml 50 ml Laboratory Tests 12/14/17 03:30: White Blood Count 9.3, Red Blood Count 3.25L, Hemoglobin 8.7L, Hematocrit 26.6L , Mean Corpuscular Volume 82, Mean Corpuscular Hemoglobin 26.9L, Mean Corpuscular Hemoglobin Concent 32.9, Red Cell Distribution Width 15.5H, Platelet Count 407, Mean Platelet Volume 5.9L, Neutrophils (%) (Auto) 68.8, Lymphocytes (%) (Auto) 19.9L, Monocytes (%) (Auto) 7.5, Eosinophils (%) (Auto) 3.1H, Basophils (%) (Auto) 0.9, Sodium Level 144, Potassium Level 4.8, Chloride Level 110H, Carbon Dioxide Level 25, Anion Gap 9, Blood Urea Nitrogen 22H, Creatinine 1.3, Estimat Glomerular Filtration Rate , Glucose Level 115H, Calcium Level 8.1L, C-Reactive Protein, Quantitative 6.1H 12/14/17 09:05: Arterial Blood pH 7.270L, Arterial Blood Partial Pressure CO2 56.5*H, Arterial Blood Partial Pressure O2 84.3, Arterial Blood HCO3 25.7, Arterial Blood Oxygen Saturation 93.6L, Arterial Blood Base Excess -1.7, Ebenezer Test Positive Height (Feet): 5 Height (Inches): 5.00 Weight (Pounds): 172 Objective NCAT, is minimally responsive supple ++ congestion, on NC RRR abd soft , mildly distended, (+) GT edema all 4 extremities Beny Dalton MD Dec 14, 2017 13:53
--- NOTE | 2017-12-14 15:14 | Diagnostic Imaging Report ---
Indication: Dyspnea Comparison: 618 A single view chest radiograph was obtained. Findings: Cardiomegaly is present without evidence of interstitial edema or infiltrate/pneumonia. PICC line is stable. Gastrostomy again noted IMPRESSION: No change
--- NOTE | 2017-12-14 16:37 | Pulmonology Progress Note ---
Assessment/Plan Problems: (1) Encephalopathy due to metabolic factor or toxin (2) Sacral decubitus ulcer (3) UTI (urinary tract infection) (4) Pneumonia (5) Renal failure (ARF), acute on chronic (6) Rhabdomyolysis (7) DM (8) Hypernatremia (9) NSTEMI (non-ST elevated myocardial infarction) (10) Severe sepsis (11) Respiratory failure (12) Pancreatitis (13) Malnutrition (14) Constipation Assessment/Plan BiPAP 15/5 qHS and PRN Optimize pulmonary hygiene/mobilize as tolerated Titrate down FiO2 to keep SaO2 > 92% PRN HHN's Back on Cefepime per ID, if ok next 1-2 days would DC and observe off Abx Off Midodrine Monitor volumes and electrolytes, D/C IVF, lasix 20 IV x 1 TF's ONLY WHEN RESPIRATORY STATUS STABLE OFF BiPAP DVT Px: Hep SQ Glycemic control Subjective Allergies: Coded Allergies: TERAZOSIN (Verified Allergy, Unknown, 10/27/17) Subjective AFVSS, was stable on 2L until this am, inc WOB, ABG with CO2 retention, placed back on BiPAP CXR stable + cough + congestion, marcin TF's, no carolynn Objective Last 24 Hour Vital Signs Date Time Temp Pulse Resp B/P (MAP) Pulse Ox O2 Delivery O2 Flow Rate FiO2 12/14/17 15:14 91 28 99 Full Face 28 12/14/17 13:41 91 22 99 Bi-pap 2.0 28 12/14/17 13:38 28 12/14/17 13:31 90 29 100 Bi-pap 2.0 28 12/14/17 13:29 90 29 100 Facial 30 12/14/17 12:00 30 12/14/17 12:00 100 12/14/17 12:00 98.8 99 20 148/77 (100) 100 12/14/17 12:00 Nasal Cannula 2.0 12/14/17 10:35 104 26 98 Facial 30 12/14/17 10:27 146/102 12/14/17 09:00 117 146/102 12/14/17 08:35 102 33 100 Facial 30 12/14/17 08:00 Nasal Cannula 2.0 12/14/17 08:00 99.1 117 20 156/101 (119) 100 12/14/17 08:00 30 12/14/17 07:43 100 12/14/17 07:20 102 22 100 Nasal Cannula 2.0 28 12/14/17 07:10 Nasal Cannula 2.0 28 12/14/17 07:09 94 16 100 Nasal Cannula 2.0 28 12/14/17 07:08 100 Nasal Cannula 2.0 28 12/14/17 04:00 102 12/14/17 04:00 2.0 12/14/17 04:00 98.3 87 20 133/75 (94) 100 12/14/17 04:00 2.0 12/14/17 04:00 Nasal Cannula 2.0 12/14/17 01:40 91 18 100 Nasal Cannula 2.0 28 12/14/17 01:30 89 18 98 Nasal Cannula 2.0 28 12/14/17 00:00 2.0 12/14/17 00:00 90 12/14/17 00:00 98.1 80 20 129/72 (91) 100 12/14/17 00:00 Nasal Cannula 2.0 12/13/17 20:31 82 143/90 12/13/17 20:00 2.0 12/13/17 20:00 98.4 88 18 143/90 (107) 100 12/13/17 20:00 Nasal Cannula 2.0 12/13/17 20:00 91 12/13/17 19:09 92 18 99 Nasal Cannula 2.0 28 12/13/17 19:08 98 Nasal Cannula 2.0 28 12/13/17 19:08 Nasal Cannula 2.0 28 12/13/17 19:00 88 16 97 Nasal Cannula 2.0 28 Intake and Output 12/13/17 12/14/17 19:00 07:00 Intake Total 680 ml 1428 ml Output Total 1300 ml 850 ml Balance -620 ml 578 ml Free Water 250 ml 50 ml IV Total 300 ml 598 ml Tube Feeding 130 ml 780 ml Output Urine Total 1200 ml 800 ml Stool Total 100 ml 50 ml General Appearance: WD/WN, no acute distress HEENT: normocephalic, atraumatic, anicteric, mucous membranes moist, other - BiPAP Respiratory/Chest: chest wall non-tender, rhonchi Cardiovascular: normal peripheral pulses, normal rate, regular rhythm Abdomen: normal bowel sounds, soft, non tender, no organomegaly, non distended , other - GT Extremities: no cyanosis, no clubbing, other - trace edema Laboratory Tests 12/14/17 03:30: White Blood Count 9.3, Red Blood Count 3.25L, Hemoglobin 8.7L, Hematocrit 26.6L , Mean Corpuscular Volume 82, Mean Corpuscular Hemoglobin 26.9L, Mean Corpuscular Hemoglobin Concent 32.9, Red Cell Distribution Width 15.5H, Platelet Count 407, Mean Platelet Volume 5.9L, Neutrophils (%) (Auto) 68.8, Lymphocytes (%) (Auto) 19.9L, Monocytes (%) (Auto) 7.5, Eosinophils (%) (Auto) 3.1H, Basophils (%) (Auto) 0.9, Sodium Level 144, Potassium Level 4.8, Chloride Level 110H, Carbon Dioxide Level 25, Anion Gap 9, Blood Urea Nitrogen 22H, Creatinine 1.3, Estimat Glomerular Filtration Rate , Glucose Level 115H, Calcium Level 8.1L, C-Reactive Protein, Quantitative 6.1H 12/14/17 09:05: Arterial Blood pH 7.270L, Arterial Blood Partial Pressure CO2 56.5*H, Arterial Blood Partial Pressure O2 84.3, Arterial Blood HCO3 25.7, Arterial Blood Oxygen Saturation 93.6L, Arterial Blood Base Excess -1.7, Ebenezer Test Positive Current Medications Medications (Trade) Dose Ordered Sig/Ruthie Route PRN Reason Start Time Stop Time Status Last Admin Dose Admin Albuterol/ Ipratropium (Albuterol/ Ipratropium) 3 ml Q4H PRN HHN Shortness of Breath 12/12/17 15:15 12/17/17 15:14 Albuterol/ Ipratropium (Albuterol/ Ipratropium) 3 ml Q6HRT HHN 12/12/17 19:00 12/17/17 18:59 12/14/17 13:31 Aspirin (ASA) 162 mg DAILY NG 12/13/17 09:00 01/01/18 08:59 12/14/17 09:00 Atorvastatin Calcium (Lipitor) 40 mg BEDTIME ORAL 12/12/17 21:00 01/08/18 20:59 12/13/17 20:30 Cefepime HCl 1 gm/ Dextrose 55 ml @ 110 mls/hr Q24H IVPB 12/15/17 01:00 12/22/17 00:59 Chlorhexidine Gluconate (Rachael-Hex 2%) 1 applic DAILY@2000 TOPIC 12/12/17 20:00 01/03/18 19:59 12/13/17 20:30 Clonidine HCl (Catapres Tab) 0.1 mg Q4H PRN ORAL BLOOD PRESSURE 12/12/17 15:00 01/06/18 14:59 Dextrose (Dextrose 50%) 25 ml Q30M PRN IV Hypoglycemia 12/12/17 14:30 01/03/18 06:59 Dextrose (Dextrose 50%) 50 ml Q30M PRN IV Hypoglycemia 12/12/17 14:30 01/03/18 06:59 Heparin Sodium (Porcine) (Heparin 5000 units/ml) 5,000 units EVERY 12 HOURS SUBQ 12/12/17 21:00 12/31/17 20:59 12/14/17 10:30 Insulin Aspart (NovoLOG) EVERY 6 HOURS SUBQ 12/12/17 18:00 01/01/18 20:59 12/14/17 13:32 Insulin Detemir (Levemir) 6 units BID SUBQ 12/12/17 18:00 01/07/18 08:59 12/14/17 10:31 Lansoprazole (Prevacid) 30 mg DAILY GT 12/13/17 09:00 01/09/18 08:59 12/14/17 09:00 Loperamide HCl (Imodium) 2 mg Q6H PRN NG Diarrhea 12/12/17 14:30 01/02/18 08:29 Metoprolol Tartrate (Lopressor) 25 mg Q12HR ORAL 12/13/17 09:00 01/12/18 08:59 12/14/17 09:00 Nitroglycerin (Ntg) 1 patch Q24H TDERMAL 12/13/17 09:00 01/01/18 08:59 12/14/17 10:27 Quetiapine Fumarate (SEROquel) 12.5 mg Q4H PRN GT agitation 12/12/17 15:00 01/03/18 14:59 Fantasma Nielsen MD Dec 14, 2017 16:37
--- NOTE | 2017-12-14 19:37 | Cardiology Progress Note ---
Assessment/Plan Assessment/Plan 1. Septic shock in combination with hypovolemic shock, continue IV fluid. 2. Sinus tachycardia, resolved , continue hydration. 3. Slight elevation of troponin I level could be of a variety of etiologies in this patient, although [id number] myocardial infarction type 2 due to demand ischemia should be considered. Continue ASA, statins not suggested for now due to transaminitis. 4. HTN, increase metoprolol to 50 mg bid. Subjective Subjective Sinus rhythm at rate of 90. Objective Last 24 Hour Vital Signs Date Time Temp Pulse Resp B/P (MAP) Pulse Ox O2 Delivery O2 Flow Rate FiO2 12/14/17 17:06 90 17 99 Full Face 28 12/14/17 16:00 Nasal Cannula 2.0 12/14/17 16:00 99.2 90 20 137/87 (104) 100 12/14/17 16:00 30 12/14/17 16:00 95 12/14/17 15:14 91 28 99 Full Face 28 12/14/17 13:41 91 22 99 Bi-pap 2.0 28 12/14/17 13:38 28 12/14/17 13:31 90 29 100 Bi-pap 2.0 28 12/14/17 13:29 90 29 100 Facial 30 12/14/17 12:00 30 12/14/17 12:00 100 12/14/17 12:00 98.8 99 20 148/77 (100) 100 12/14/17 12:00 Nasal Cannula 2.0 12/14/17 10:35 104 26 98 Facial 30 12/14/17 10:27 146/102 12/14/17 09:00 117 146/102 12/14/17 08:35 102 33 100 Facial 30 12/14/17 08:00 Nasal Cannula 2.0 12/14/17 08:00 99.1 117 20 156/101 (119) 100 12/14/17 08:00 30 12/14/17 07:43 100 12/14/17 07:20 102 22 100 Nasal Cannula 2.0 28 12/14/17 07:10 Nasal Cannula 2.0 28 12/14/17 07:09 94 16 100 Nasal Cannula 2.0 28 12/14/17 07:08 100 Nasal Cannula 2.0 28 12/14/17 04:00 102 12/14/17 04:00 2.0 12/14/17 04:00 98.3 87 20 133/75 (94) 100 12/14/17 04:00 2.0 12/14/17 04:00 Nasal Cannula 2.0 12/14/17 01:40 91 18 100 Nasal Cannula 2.0 28 12/14/17 01:30 89 18 98 Nasal Cannula 2.0 28 12/14/17 00:00 2.0 12/14/17 00:00 90 12/14/17 00:00 98.1 80 20 129/72 (91) 100 12/14/17 00:00 Nasal Cannula 2.0 12/13/17 20:31 82 143/90 12/13/17 20:00 2.0 12/13/17 20:00 98.4 88 18 143/90 (107) 100 12/13/17 20:00 Nasal Cannula 2.0 12/13/17 20:00 91 Intake and Output 12/13/17 12/14/17 19:00 07:00 Intake Total 680 ml 1428 ml Output Total 1300 ml 850 ml Balance -620 ml 578 ml Free Water 250 ml 50 ml IV Total 300 ml 598 ml Tube Feeding 130 ml 780 ml Output Urine Total 1200 ml 800 ml Stool Total 100 ml 50 ml 2D Echo: FroM Oct 24:LVEF 65%, Mild LVH,Small Pericardial Eff.,Grade I LVDD, Mild AR Laboratory Tests Test 12/14/17 03:30 12/14/17 09:05 White Blood Count 9.3 K/UL (4.8-10.8) Red Blood Count 3.25 M/UL (4.70-6.10) L Hemoglobin 8.7 G/DL (14.2-18.0) L Hematocrit 26.6 % (42.0-52.0) L Mean Corpuscular Volume 82 FL (80-99) Mean Corpuscular Hemoglobin 26.9 PG (27.0-31.0) L Mean Corpuscular Hemoglobin Concent 32.9 G/DL (32.0-36.0) Red Cell Distribution Width 15.5 % (11.6-14.8) H Platelet Count 407 K/UL (150-450) Mean Platelet Volume 5.9 FL (6.5-10.1) L Neutrophils (%) (Auto) 68.8 % (45.0-75.0) Lymphocytes (%) (Auto) 19.9 % (20.0-45.0) L Monocytes (%) (Auto) 7.5 % (1.0-10.0) Eosinophils (%) (Auto) 3.1 % (0.0-3.0) H Basophils (%) (Auto) 0.9 % (0.0-2.0) Sodium Level 144 MMOL/L (136-145) Potassium Level 4.8 MMOL/L (3.5-5.1) Chloride Level 110 MMOL/L (98-107) H Carbon Dioxide Level 25 MMOL/L (21-32) Anion Gap 9 mmol/L (5-15) Blood Urea Nitrogen 22 mg/dL (7-18) H Creatinine 1.3 MG/DL (0.55-1.30) Estimat Glomerular Filtration Rate mL/min (>60) Glucose Level 115 MG/DL (74-106) H Calcium Level 8.1 MG/DL (8.5-10.1) L C-Reactive Protein, Quantitative 6.1 mg/dL (0.00-0.90) H Arterial Blood pH 7.270 (7.350-7.450) Arterial Blood Partial Pressure CO2 56.5 mmHg (35.0-45.0) *H Arterial Blood Partial Pressure O2 84.3 mmHg (75.0-100.0) Arterial Blood HCO3 25.7 mmol/L (22.0-26.0) Arterial Blood Oxygen Saturation 93.6 % (95-100) L Arterial Blood Base Excess -1.7 (-2-2) Ebenezer Test Positive Objective HEENT: Atraumatic and normocephalic. Anicteric. Pupils are equal, round, and reactive to light and accommodation. Dry mucosal membranes. NECK: JVP less than 5 cm. No carotid bruit. Carotid upstrokes 2+ bilaterally. CARDIOVASCULAR: Normal S1, S2. Regular rhythm. Cannot appreciate any murmurs, gallops, or rubs. LUNGS: Diminished breath sounds in both lungs. ABDOMEN: Soft, nontender, and nondistended. Diminished bowel sounds. Presence of G-tube. No hepatosplenomegaly. EXTREMITIES: Contraction and pressure protection. No edema, clubbing, or cyanosis. Luke Estrada MD Dec 14, 2017 19:37
[2017-12-14] MEDS: Dyna-Hex 2% Top Sol 2oz TOPIC SCH (20:00)
--- NOTE | 2017-12-14 20:00 | Progress Note ---
DATE: 12/14/2017 SUBJECTIVE: The patient's mental condition is unchanged since previous encounter. The patient continues to have difficulty and is extubated, however, she has difficulty swallowing, still continues to be confused, not speaking today, and has waxing and waning consciousness. MENTAL STATUS EXAMINATION: The patient is alert, confused, has waxing and waning consciousness. Mood is neutral to anxious. Affect is constricted, congruent with mood. Thought process is concrete. Thought content is no suicidal or homicidal ideation. Cognition is impaired. ASSESSMENT: Encephalopathy due to metabolic disorder. PLAN: Continue the current medication. We will continue to follow and readjust the medications appropriately. Lauren Santoyo M.D. DR: Jasper JOB#: [id number] CC:
[2017-12-14] MEDS: Atorvastatin 20mg tab ORAL SCH (20:29)
[2017-12-14] MEDS ORDERED: Metoprolol Tartrate 50mg tab ORAL SCH (21:00)
[2017-12-14] MEDS ORDERED: NS 275ml ONE (21:16)
--- NOTE | 2017-12-14 21:39 | General Progress Note ---
Assessment/Plan Problem List: (1) Hypoxemia ICD Codes: R09.02 - Hypoxemia SNOMED: 707421326 (2) Pneumonia ICD Codes: J18.9 - Pneumonia, unspecified organism SNOMED: 702255077 (3) Malnutrition ICD Codes: E46 - Unspecified protein-calorie malnutrition SNOMED: 09930720 (4) Renal failure (ARF), acute on chronic ICD Codes: N17.9 - Acute kidney failure, unspecified; N18.9 - Chronic kidney disease, unspecified SNOMED: 979569541 Qualifiers: Qualified Codes: N17.9 - Acute kidney failure, unspecified; N18.3 - Chronic kidney disease, stage 3 (moderate) (5) Respiratory failure ICD Codes: J96.90 - Respiratory failure, unspecified, unspecified whether with hypoxia or hypercapnia SNOMED: 281639023 Qualifiers: Qualified Codes: J96.00 - Acute respiratory failure, unspecified whether with hypoxia or hypercapnia (6) Severe sepsis ICD Codes: A41.9 - Sepsis, unspecified organism; R65.20 - Severe sepsis without septic shock SNOMED: 18237987 (7) UTI (urinary tract infection) ICD Codes: N39.0 - Urinary tract infection, site not specified SNOMED: 42643082 Qualifiers: Qualified Codes: N39.0 - Urinary tract infection, site not specified (8) NSTEMI (non-ST elevated myocardial infarction) ICD Codes: I21.4 - Non-ST elevation (NSTEMI) myocardial infarction SNOMED: 176855628 (9) Hypernatremia ICD Codes: E87.0 - Hyperosmolality and hypernatremia SNOMED: 58645158 (10) DM (11) Rhabdomyolysis ICD Codes: M62.82 - Rhabdomyolysis SNOMED: 079606649 Status: unchanged Assessment/Plan resp failure resp acidocis so pulmonary ordered bipap going to [facility] once bed available abx per id bph r/p urinary stricture dehydration improving sepsis nstemi resolved afebrile Subjective ROS Limited/Unobtainable: Yes Allergies: Coded Allergies: TERAZOSIN (Verified Allergy, Unknown, 10/27/17) Objective Last 24 Hour Vital Signs Date Time Temp Pulse Resp B/P (MAP) Pulse Ox O2 Delivery O2 Flow Rate FiO2 12/14/17 21:25 85 17 100 Full Face 28 12/14/17 21:23 Bi-pap 28 12/14/17 21:23 98 Bi-pap 30 12/14/17 20:29 94 146/84 12/14/17 20:00 99.5 94 21 146/84 (104) 100 12/14/17 20:00 Nasal Cannula 2.0 12/14/17 20:00 28 12/14/17 19:05 81 28 100 Full Face 28 12/14/17 17:06 90 17 99 Full Face 28 12/14/17 16:00 Nasal Cannula 2.0 12/14/17 16:00 99.2 90 20 137/87 (104) 100 12/14/17 16:00 30 12/14/17 16:00 95 12/14/17 15:14 91 28 99 Full Face 28 12/14/17 13:41 91 22 99 Bi-pap 2.0 28 12/14/17 13:38 28 12/14/17 13:31 90 29 100 Bi-pap 2.0 28 12/14/17 13:29 90 29 100 Facial 30 12/14/17 12:00 30 12/14/17 12:00 100 12/14/17 12:00 98.8 99 20 148/77 (100) 100 12/14/17 12:00 Nasal Cannula 2.0 12/14/17 10:35 104 26 98 Facial 30 12/14/17 10:27 146/102 12/14/17 09:00 117 146/102 12/14/17 08:35 102 33 100 Facial 30 12/14/17 08:00 Nasal Cannula 2.0 12/14/17 08:00 99.1 117 20 156/101 (119) 100 12/14/17 08:00 30 12/14/17 07:43 100 12/14/17 07:20 102 22 100 Nasal Cannula 2.0 28 12/14/17 07:10 Nasal Cannula 2.0 28 12/14/17 07:09 94 16 100 Nasal Cannula 2.0 28 12/14/17 07:08 100 Nasal Cannula 2.0 28 12/14/17 04:00 102 12/14/17 04:00 2.0 12/14/17 04:00 98.3 87 20 133/75 (94) 100 12/14/17 04:00 2.0 12/14/17 04:00 Nasal Cannula 2.0 12/14/17 01:40 91 18 100 Nasal Cannula 2.0 28 12/14/17 01:30 89 18 98 Nasal Cannula 2.0 28 12/14/17 00:00 2.0 12/14/17 00:00 90 12/14/17 00:00 98.1 80 20 129/72 (91) 100 12/14/17 00:00 Nasal Cannula 2.0 Intake and Output 12/13/17 12/14/17 19:00 07:00 Intake Total 680 ml 1428 ml Output Total 1300 ml 850 ml Balance -620 ml 578 ml Free Water 250 ml 50 ml IV Total 300 ml 598 ml Tube Feeding 130 ml 780 ml Output Urine Total 1200 ml 800 ml Stool Total 100 ml 50 ml Laboratory Tests 12/14/17 03:30: White Blood Count 9.3, Red Blood Count 3.25L, Hemoglobin 8.7L, Hematocrit 26.6L , Mean Corpuscular Volume 82, Mean Corpuscular Hemoglobin 26.9L, Mean Corpuscular Hemoglobin Concent 32.9, Red Cell Distribution Width 15.5H, Platelet Count 407, Mean Platelet Volume 5.9L, Neutrophils (%) (Auto) 68.8, Lymphocytes (%) (Auto) 19.9L, Monocytes (%) (Auto) 7.5, Eosinophils (%) (Auto) 3.1H, Basophils (%) (Auto) 0.9, Sodium Level 144, Potassium Level 4.8, Chloride Level 110H, Carbon Dioxide Level 25, Anion Gap 9, Blood Urea Nitrogen 22H, Creatinine 1.3, Estimat Glomerular Filtration Rate , Glucose Level 115H, Calcium Level 8.1L, C-Reactive Protein, Quantitative 6.1H 12/14/17 09:05: Arterial Blood pH 7.270L, Arterial Blood Partial Pressure CO2 56.5*H, Arterial Blood Partial Pressure O2 84.3, Arterial Blood HCO3 25.7, Arterial Blood Oxygen Saturation 93.6L, Arterial Blood Base Excess -1.7, Ebenezer Test Positive Height (Feet): 5 Height (Inches): 5.00 Weight (Pounds): 172 General Appearance: lethargic, confused Trish Matias MD Dec 14, 2017 21:39
[2017-12-15] MEDS ORDERED: Cefepime HCl 1 GM in D5W 55 ML IVPB SCH (01:00)
--- NOTE | 2017-12-15 13:52 | Diagnostic Imaging Report ---
Indication: Line placement Comparison: 12/14/2017 A single view chest radiograph was obtained. Findings: PICC line tip is in the upper part of SVC. IMPRESSION: PICC line upper part of the SVC
--- NOTE | 2017-12-15 13:59 | Discharge Summary ---
Discharge Summary Discharge Summary _ DATE OF ADMISSION: 12/01/2017 DATE OF DISCHARGE: 12/14/2017 CONSULTANTS: Dr. Lauren Dodd BRIEF HOSPITAL COURSE: Patient is an 87-year-old male, who was taken to ED via EMS due to dyspnea/ respiratory distress. Patient was sent in for alterations in sodium level. He was also noted to have low blood pressure and low oximetry. He had decreased responsiveness less than his baseline. Patient has dementia and functional quadriplegia with G-tube. On evaluation at ED, patient was hypotensive and tachycardic and febrile. RR was 50. Patient was emergently intubated. Central line was inserted to the right femoral vein. He was given fluid resuscitation. Blood work showed leukocytosis, WBC 13. Lactic acid 6.7. Sodium level was 189, potassium 3.5, chloride 146. BUN was 99, creatinine 3.3. Glucose was 363. LFTs were elevated. Lipase 712. Troponin was elevated to 0.36, BNP 799. Urinalysis with 60-80 WBC, 5-10 RBC, 3+ leukocyte esterase, positive nitrite. EKG showed sinus tachycardia with subendocardial changes. Chest x-ray with clear pleural spaces. He was admitted to ICU for respiratory failure, severe sepsis, non-ST elevated TN, renal failure, pancreatitis and UTI. He was continued on vent support. He was started on hypotonic IV fluids. Feeding was placed on hold. Patient had distended abdomen. KUB showed unremarkable gas pattern. Renal function was monitored. Patient had elevated CPK possibly rhabdomyolysis. ID specialist discontinued vancomycin. He was given Zosyn. Glucose was elevated. Records Specialist was consulted. Patient was started initially on insulin drip and was eventually discontinued. He was given insulin subcutaneous every 4 hours. blood glucose was monitored. Patient was tachycardic, most likely secondary to severe intravascular volume depletion. Lead Machinist was consulted. He was given volume fluid support. He was eventually started on midodrine. There was slight elevation in troponin, possibly demand ischemia. He was given aspirin and statin. Patient had thrombocytopenia and anemia of chronic disease due to underlying medical condition. Anemia workup done showed no evidence of hemolysis. HIV and hepatitis panel negative. Lipase down trended. G-tube feeding was eventually started. Psychiatrist was consulted. Patient with proximal and waning of consciousness and was agitated at times. He was given Seroquel. He was tolerating tube feedings. Glucose values improved. He was given sliding scale insulins every 4 hours and Levemir twice a day. On admission, patient was noted to have multiple wounds. Surgery was called to evaluate. Patient had 2 full-thickness pressure injury to the right and left sacrum with dark induration. Wound care was provided. He was placed on air- fluidized mattress, with frequent repositioning and offloading. On 12/06/2017, he was weaned off ventilator and was extubated. He was having fever and was continued on antibiotics. Blood culture did not isolate any growth. Urine culture with no growth. He had diarrhea. Stool C. difficile was negative. Stool culture negative. He was noted to have a discharge coming out from Turner catheter. Turner was removed however staff was unable to put back a new catheter. Urologist was consulted. On examination, showed edematous and phimotic foreskin which was difficult to reduce. A Turner catheter was eventually inserted with some difficulty and it returned clear yellow urine output. He was eventually observed off antibiotic treatment. Blood glucose was monitored. Insulin and Levemir dose were adjusted. There was a drop in hemoglobin down to 7.2. He required 1 unit packed RBC blood transfusion. Patient developed of respiratory distress. He had cough and congestion. BNP was elevated. He was given Lasix. He was stable on 2 L but had to be placed back on BiPAP. He was placed back on cefepime by ID. He was eventually transferred to [facility]. FINAL DIAGNOSES: Severe sepsis/SIRS Septic shock in combination with hypovolemic shock Acute respiratory failure requiring intubation status post extubation Acute pancreatitis Encephalopathy due to metabolic factor Sacral decubitus ulcer, present on admission Urinary tract infection Pneumonia Acute on chronic renal failure Rhabdomyolysis Diabetes mellitus 2 Hypernatremia Non-ST elevated TN Constipation Malnutrition Hypertension Sinus tachycardia resolved with hydration Anemia of chronic disease Thrombocytopenia Dysphagia on PEG Transaminitis Dementia DISPOSITION: Patient was transferred to [facility]. I have been assigned to dictate discharge summary on this account, and I was not involved in the patient's management. Vy Mejia NP Dec 15, 2017 13:59
--- NOTE | 2017-12-18 10:46 | Cardiology Report ---
APPROVED REPORT EXAM: Two-dimensional and M-mode echocardiogram with Doppler and color Doppler. INDICATION Congestive Heart Failure M-Mode DIMENSIONS IVSd1.4 (0.7-1.1cm)Left Atrium (MM)3.5 (1.6-4.0cm) LVDd5.2 (3.5-5.6cm)Aortic Root4.0 (2.0-3.7cm) PWd1.3 (0.7-1.1cm)Aortic Cusp Exc.1.7 (1.5-2.0cm) IVSs1.8 cm LVDs3.4 (2.5-4.0cm) PWs1.4 cm Technically difficult study due to poor parasternal acoustical windows. Normal left ventricular chamber size, systolic function and wall motion to extent visualized. quality precludes accurate assessment of regional wall motion.sualized. Left ventricular ejection fraction estimated to be 60-65 %. Mild left ventricular hypertrophy by 2-D. Small posterior pericardial effusion. All other cardiac chamber sizes are within normal limits. Focal aortic valve sclerosis with adequate cusp excursion. Thickened mitral valve leaflets with normal excursion. Mitral annulus and aortic root calcification. Normal pulmonic valve structure. Normal tricuspid valve structure. IVC at normal size with physiologic collapse. A color flow and spectral Doppler study was performed and revealed: Trace to mild aortic insufficiency . Trace mitral regurgitation. left ventricular diastolic function can not determined due to arrhythmia . Trace tricuspid regurgitation. Tricuspid systolic velocities suggests peak right ventricular systolic pressure of 17 mmHg. No Pulmonic regurgitation present.
== END 2017-12-14 21:17 | DRG 870 ==
LOC: EDBD 11:35 → EMR 11:55 → ICU 12:25 → ENRESERV 12:37 → EDBEDREQ 12:45 → 2E 12-07 20:25 → 2W 12-12 14:14
PROC: 5A1955Z Respiratory Ventilation, Greater than 96 Consecutive Hours (ICD-10-PCS; principal; 2017-12-01)
PROC: 0BH17EZ Insertion of Endotracheal Airway into Trachea, Via Natural or Artificial Opening (ICD-10-PCS; principal; 2017-12-01)
PROC: 06HM33Z Insertion of Infusion Device into Right Femoral Vein, Percutaneous Approach (ICD-10-PCS; principal; 2017-12-01)
PROC: B548ZZA Ultrasonography of Superior Vena Cava, Guidance (ICD-10-PCS; 2017-12-04)
PROC: 02HV33Z Insertion of Infusion Device into Superior Vena Cava, Percutaneous Approach (ICD-10-PCS; 2017-12-04)
PROC: 30233N1 Transfusion of Nonautologous Red Blood Cells into Peripheral Vein, Percutaneous Approach (ICD-10-PCS; 2017-12-10)
DX: A41.9 Sepsis, unspecified organism (principal); J18.9 Pneumonia, unspecified organism; R65.21 Severe sepsis with septic shock; J96.01 Acute respiratory failure with hypoxia; I21.A1 Myocardial infarction type 2; R53.2 Functional quadriplegia; K85.90 Acute pancreatitis without necrosis or infection, unspecified; G93.41 Metabolic encephalopathy; N17.9 Acute kidney failure, unspecified; E87.0 Hyperosmolality and hypernatremia; N39.0 Urinary tract infection, site not specified; E46 Unspecified protein-calorie malnutrition; R71.0 Precipitous drop in hematocrit; E86.0 Dehydration; F09 Unspecified mental disorder due to known physiological condition; I12.9 Hypertensive chronic kidney disease with stage 1 through stage 4 chronic kidney disease, or unspecified chronic kidney disease; E11.22 Type 2 diabetes mellitus with diabetic chronic kidney disease; E11.65 Type 2 diabetes mellitus with hyperglycemia; N18.3 Chronic kidney disease, stage 3 (moderate); F03.90 Unspecified dementia, unspecified severity, without behavioral disturbance, psychotic disturbance, mood disturbance, and anxiety; N40.0 Benign prostatic hyperplasia without lower urinary tract symptoms; D69.6 Thrombocytopenia, unspecified; D64.9 Anemia, unspecified; K59.00 Constipation, unspecified; Z68.28 Body mass index [BMI] 28.0-28.9, adult; Z93.1 Gastrostomy status; R13.10 Dysphagia, unspecified; L89.159 Pressure ulcer of sacral region, unspecified stage
CPT/HCPCS: 31500; 36415; 36569; 36600; 51702; 71045; 73521; 74018; 76700; 76937; 80048; 80053; 80061; 80202; 81003; 82140; 82150; 82248; 82270; 82533; 82550; 82553; 82607; 82728; 82746; 82803; 82962; 82977; 83036; 83540; 83550; 83605; 83615; 83690; 83735; 83880; 84100; 84443; 84484; 84550; 85007; 85025; 85610; 85660; 85730; 86140; 86703; 86705; 86709; 86803; 86850; 86900; 86901; 86920; 87040; 87045; 87081; 87086; 87324; 87340; 93005; 93306; 94002; 94003; 94640; 94660; 94664; 94760; 96361; 96365; 96367; 96368; 99291; 99292; J1815; J7620; S5561

== ENCOUNTER 2018-11-15 02:09 | Inpatient (IN) | payer MEDICARE, MEDICAID ==
[~2018-11-15] VITALS: Ht 165.1 cm; Wt 90.9 kg
[2018-11-15] VITALS (37 sets, daily range): BP systolic 87–150; BP diastolic 40–125
[~2018-11-15 02:09] MED LIST changes: +SENNA8.6 M2 GT
[2018-11-15] MEDS ORDERED: HEPARIN SO5000 UNIT2 SUBQ (02:37)
[2018-11-15] MEDS ORDERED: CATAPRES0.1 MG GT (02:37)
[2018-11-15] MEDS ORDERED: METOPROLOL TAR100 M1 GT (02:37)
[2018-11-15] MEDS ORDERED: HYDRALAZINE HCL50 MG GT (02:37)
[2018-11-15] MEDS ORDERED: FERROUS SULFAT325 MG ORAL (02:37)
[2018-11-15] MEDS ORDERED: NORCO 5-325 TA1 EACH GT (02:37)
[2018-11-15] MEDS ORDERED: CALCIUM CARBON500 M1 GT (02:37)
[2018-11-15] MEDS ORDERED: NITROGLYCERIN1 EAC2 TD (02:37)
[2018-11-15] MEDS ORDERED: PERIDEX15 ML MM (02:38)
[2018-11-15] MEDS ORDERED: ZYPREXA2.5 MG ORAL (02:38)
[2018-11-15] MEDS ORDERED: QUETIAPINE FUMA50 MG GT (02:38)
[2018-11-15] MEDS ORDERED: Sodium Chloride 2,200 ML IVLG ONE (02:45)
[2018-11-15] MEDS ORDERED: Vancomycin 1.5 GM in NS 275 ML IVPB ONE (02:45)
[2018-11-15 02:51] LABS: HEMOGLOBIN 7.5 G/DL (14.2-18.0); MEAN CORPUSCULAR VOLUME 85 FL (80-99); PLATELET COUNT 327 K/UL (150-450); RED BLOOD COUNT 2.83 M/UL (4.70-6.10); RED CELL DISTRIBUTION WIDTH 16.9 % (11.6-14.8)
[2018-11-15 02:59] LABS: ANION GAP 9 mmol/L (5-15); BLOOD UREA NITROGEN 47 mg/dL (7-18); CALCIUM 8.5 MG/DL (8.5-10.1); CARBON DIOXIDE 29 MMOL/L (21-32); CHLORIDE 112 MMOL/L (98-107); CREATININE 2.4 MG/DL (0.55-1.30); POTASSIUM 5.2 MMOL/L (3.5-5.1); SODIUM 150 MMOL/L (136-145)
[2018-11-15 03:12] LABS: ALANINE AMINOTRANSFERASE 244 U/L (12-78); ALBUMIN 2.3 G/DL (3.4-5.0); ALBUMIN/GLOBULIN RATIO 0.5 (1.0-2.7); ALKALINE PHOSPHATASE 147 U/L (46-116); ASPARTATE AMINO TRANSFERASE 174 U/L (15-37); BILIRUBIN,TOTAL 0.5 MG/DL (0.2-1.0); CKMB 0.6 NG/ML (0.0-3.6); CREATINE KINASE 75 U/L (26-308); PHOSPHORUS 4.5 MG/DL (2.5-4.9)
[2018-11-15 03:17] LABS: WHITE BLOOD COUNT 52.1 K/UL (4.8-10.8)
[2018-11-15] MEDS ORDERED: Piperacillin/Tazobactam 3.375 GM in NS 110 ML IVPB ONE (03:45)
--- NOTE | 2018-11-15 05:01 | Emergency Room Report ---
History of Present Illness General Chief Complaint: Fever Source: Patient Present Illness HPI Patient is an 88-year-old male brought in by ambulance after increased fever. Patient had prior history of diabetes as well as CHF. Patient noted to have temperature up to 102 degrees. Is chronically ventilator dependent. Patient was noted to have increased temperature. History is markedly limited by patient 's mental status. Allergies: Coded Allergies: TERAZOSIN (Verified Allergy, Unknown, 10/27/17) Patient History Past Medical History: see triage record Reviewed Nursing Documentation: PMH: Agreed; PSxH: Agreed Nursing Documentation-PMH Past Medical History: No History, Except For Hx Diabetes: Yes - TYPE 2 Hx Cancer: No Hx Gastrointestinal Problems: Yes Hx Neurological Problems: Yes Hx Dementia: Yes Hx Dysphasia: Yes Review of Systems All Other Systems: limited - Review of systems: Review systems is limited by patient's being a poor historian Physical Exam Vital Signs Date Time Temp Pulse Resp B/P (MAP) Pulse Ox O2 Delivery O2 Flow Rate FiO2 11/15/18 02:14 101.7 68 22 107/56 (73) 96 Endotracheal Tube 11/15/18 02:25 40 General Appearance: severe distress, Chronically Ill Eyes: bilateral eye other - Point ENT: dry mucus membranes Neck: limited range of motion Respiratory: crackles Cardiovascular #1: regular rate, rhythm Gastrointestinal: normal inspection, no mass, no pulsatile mass Genitourinary: other - Deformity to skin of the penis with a ventral ulceration Musculoskeletal: decreased range of motion Neurologic: other - Poor alertness, contracted, orthotics in place Psychiatric: depressed affect Skin: other - multiple pressure sores Procedures Critical Care Time Critical Care Time Patient had a critical medical condition which untreated could potentially result in life or limb threatening injury. Total critical care time excluding procedures approximately 45 minutes. Medical Decision Making Diagnostic Impression: Primary Impression: Septic shock Additional Impressions: Chronic renal disease Pneumonitis Prostate enlargement Ventilator dependence Anemia ER Course Patient presented for increased fever. Differential diagnosis included pneumonia, urinary tract infection, drug fever, allergic reaction, sepsis, cholecystitis, among others. Because of complexity of patient's case laboratory tests and imaging studies were ordered. Patient was noted to have initial hypotension. Patient was on mechanical ventilation with elevated PEEP. PEEP was subsequently decreased due to low blood pressure and patient was started on IV fluids. Patient was noted to have some improvement in blood pressure. Blood cultures and lactic acid were obtained. Patient was noted to have markedly elevated white blood count in the 50s. He was started on broad- spectrum antibiotics. Chest x-ray one view interpreted by me showed cardiomegaly with bilateral infiltrates. Patient was noted to have a PICC line to his right upper extremity and was chronically on ventilation. Patient was noted to have some prior history of prostate enlargement as well as some chronic deformity to his penis. Urine sample could not be obtained in the emergency department.Dr. Trish Tripathi was contacted for inpatient management due to primary care physician. Labs Test 11/15/18 02:25 11/15/18 02:43 11/15/18 03:53 White Blood Count 52.1 K/UL (4.8-10.8) Red Blood Count 2.83 M/UL (4.70-6.10) Hemoglobin 7.5 G/DL (14.2-18.0) Hematocrit 24.0 % (42.0-52.0) Mean Corpuscular Volume 85 FL (80-99) Mean Corpuscular Hemoglobin 26.3 PG (27.0-31.0) Mean Corpuscular Hemoglobin Concent 31.1 G/DL (32.0-36.0) Red Cell Distribution Width 16.9 % (11.6-14.8) Platelet Count 327 K/UL (150-450) Mean Platelet Volume 6.6 FL (6.5-10.1) Neutrophils (%) (Auto) % (45.0-75.0) Lymphocytes (%) (Auto) % (20.0-45.0) Monocytes (%) (Auto) % (1.0-10.0) Eosinophils (%) (Auto) % (0.0-3.0) Basophils (%) (Auto) % (0.0-2.0) Sodium Level 150 MMOL/L (136-145) Potassium Level 5.2 MMOL/L (3.5-5.1) Chloride Level 112 MMOL/L (98-107) Carbon Dioxide Level 29 MMOL/L (21-32) Anion Gap 9 mmol/L (5-15) Blood Urea Nitrogen 47 mg/dL (7-18) Creatinine 2.4 MG/DL (0.55-1.30) Estimat Glomerular Filtration Rate mL/min (>60) Glucose Level 139 MG/DL (74-106) Calcium Level 8.5 MG/DL (8.5-10.1) Phosphorus Level 4.5 MG/DL (2.5-4.9) Magnesium Level 2.6 MG/DL (1.8-2.4) Total Bilirubin 0.5 MG/DL (0.2-1.0) Aspartate Amino Transf (AST/SGOT) 174 U/L (15-37) Alanine Aminotransferase (ALT/SGPT) 244 U/L (12-78) Alkaline Phosphatase 147 U/L (46-116) Total Creatine Kinase 75 U/L (26-308) Creatine Kinase MB 0.6 NG/ML (0.0-3.6) Creatine Kinase MB Relative Index 0.8 Troponin I 0.118 ng/mL (0.000-0.056) Pro-B-Type Natriuretic Peptide 08271 pg/mL (0-125) Total Protein 7.1 G/DL (6.4-8.2) Albumin 2.3 G/DL (3.4-5.0) Globulin 4.8 g/dL Albumin/Globulin Ratio 0.5 (1.0-2.7) Arterial Blood pH 7.475 (7.350-7.450) Arterial Blood Partial Pressure CO2 35.7 mmHg (35.0-45.0) Arterial Blood Partial Pressure O2 59.4 mmHg (75.0-100.0) Arterial Blood HCO3 25.7 mmol/L (22.0-26.0) Arterial Blood Oxygen Saturation 89.7 % (95-100) Arterial Blood Base Excess 2.1 (-2-2) Ebenezer Test Positive Lactic Acid Level 5.90 mmol/L (0.66-2.22) Last Vital Signs Date Time Temp Pulse Resp B/P (MAP) Pulse Ox O2 Delivery O2 Flow Rate FiO2 11/15/18 04:37 70 43 60 11/15/18 02:42 101.7 107/56 100 Mechanical Ventilator Status: unchanged Disposition: ADMITTED INPATIENT Condition: Critical Referrals: Trish Matias MD (PCP) Dwight Varela MD Nov 15, 2018 05:01
[2018-11-15] MEDS ORDERED: HYDROcodone/Acetamin 5/325 tab ORAL PRN (05:45)
[2018-11-15] MEDS ORDERED: Hydromorphone 0.5mg/0.5ml inj IVP PRN (05:45)
[2018-11-15] MEDS ORDERED: Acetaminophen 650mg/20.3ml NG PRN (05:45)
--- NOTE | 2018-11-15 05:50 | Pulmonolgy Critical Care Note ---
Critical Care - Asmt/Plan Assessment/Plan: Pulmonary Critical Care Consultation HPI Patient is an 88-year-old male [facility] with fever, Pneumonia. Patient had prior history of Dementia, BPH, Diabetes, Hypertension as well as CHF. Patient is chronically ventilator dependent. History is limited by patient's mental status - non verbal on ventilator Allergies: TERAZOSIN Past Medical History: Dementia, BPH, Diabetes, Hypertension, CHF, G tube All Other Systems: limited - Review of systems Physical Exam Vital Signs Noted Date Time Temp Pulse Resp B/P (MAP) Pulse Ox O2 Delivery O2 Flow Rate FiO2 11/15/18 02:14 101.7 68 22 107/56 (73) 96 Endotracheal Tube 11/15/18 02:25 40 General Appearance: Chronically Ill Eyes: PERRL Neck: dry mm Respiratory: bilateral crackles, rhonchi Heart: HS1, HS2, RRR Gastrointestinal: no pulsatile mass, Gtube CDI Genitourinary: other - Deformity to skin of the penis with a ventral ulceration Musculoskeletal: decreased range of motion, weak, wasted, congtracted Neurologic: Reduced LOC, contracted, orthotics in place Impression: Pneumonia Ventilator dependant respiratory failure Severe sepsis NSTEMI Anemia Possible GI bleed Dysphagia s/p G tube Chronic wounds Diabetes Chronic renal disease Prostate enlargement CHF H/o Hypertension Low Albumin c/w Protein Calorie Malnutrition, chronic illness Plan IV antibiotics: Zosyn, Vanco per Pharmacy, Doxycycline IVF PRN 25% Albumin x 2 Levophed PRN for MAP >65 HHN Q4 Continue current AC ventilator sttings Adjust FIO2 for sats 90-96% Stool OB Cross match x 2 Transfuse PRN Sputum c+s Stool cdiff Will need U/A once has crabtree catheter Await cultures Abdominal US LE dupplex Monitor labs, Troponin, Lactate PPX - SCD, IV Protonix LOADER TECHNICIAN medications PRN sedation, analgesia Gtube feeds Aspiration precautions Full Code Labs Test 11/15/18 02:25 11/15/18 02:43 11/15/18 03:53 White Blood Count 52.1 K/UL (4.8-10.8) Red Blood Count 2.83 M/UL (4.70-6.10) Hemoglobin 7.5 G/DL (14.2-18.0) Hematocrit 24.0 % (42.0-52.0) Mean Corpuscular Volume 85 FL (80-99) Mean Corpuscular Hemoglobin 26.3 PG (27.0-31.0) Mean Corpuscular Hemoglobin Concent 31.1 G/DL (32.0-36.0) Red Cell Distribution Width 16.9 % (11.6-14.8) Platelet Count 327 K/UL (150-450) Mean Platelet Volume 6.6 FL (6.5-10.1) Neutrophils (%) (Auto) % (45.0-75.0) Lymphocytes (%) (Auto) % (20.0-45.0) Monocytes (%) (Auto) % (1.0-10.0) Eosinophils (%) (Auto) % (0.0-3.0) Basophils (%) (Auto) % (0.0-2.0) Sodium Level 150 MMOL/L (136-145) Potassium Level 5.2 MMOL/L (3.5-5.1) Chloride Level 112 MMOL/L (98-107) Carbon Dioxide Level 29 MMOL/L (21-32) Anion Gap 9 mmol/L (5-15) Blood Urea Nitrogen 47 mg/dL (7-18) Creatinine 2.4 MG/DL (0.55-1.30) Estimat Glomerular Filtration Rate mL/min (>60) Glucose Level 139 MG/DL (74-106) Calcium Level 8.5 MG/DL (8.5-10.1) Phosphorus Level 4.5 MG/DL (2.5-4.9) Magnesium Level 2.6 MG/DL (1.8-2.4) Total Bilirubin 0.5 MG/DL (0.2-1.0) Aspartate Amino Transf (AST/SGOT) 174 U/L (15-37) Alanine Aminotransferase (ALT/SGPT) 244 U/L (12-78) Alkaline Phosphatase 147 U/L (46-116) Total Creatine Kinase 75 U/L (26-308) Creatine Kinase MB 0.6 NG/ML (0.0-3.6) Creatine Kinase MB Relative Index 0.8 Troponin I 0.118 ng/mL (0.000-0.056) Pro-B-Type Natriuretic Peptide 21168 pg/mL (0-125) Total Protein 7.1 G/DL (6.4-8.2) Albumin 2.3 G/DL (3.4-5.0) Globulin 4.8 g/dL Albumin/Globulin Ratio 0.5 (1.0-2.7) Arterial Blood pH 7.475 (7.350-7.450) Arterial Blood Partial Pressure CO2 35.7 mmHg (35.0-45.0) Arterial Blood Partial Pressure O2 59.4 mmHg (75.0-100.0) Arterial Blood HCO3 25.7 mmol/L (22.0-26.0) Arterial Blood Oxygen Saturation 89.7 % (95-100) Arterial Blood Base Excess 2.1 (-2-2) Ebenezer Test Positive Lactic Acid Level 5.90 mmol/L (0.66-2.22) Critical Care - Objective Last 24 Hour Vital Signs Date Time Temp Pulse Resp B/P (MAP) Pulse Ox O2 Delivery O2 Flow Rate FiO2 11/15/18 04:45 101.7 75 43 107/56 100 Mechanical Ventilator 60 11/15/18 04:37 70 43 60 11/15/18 03:30 71 40 60 11/15/18 02:42 101.7 75 35 107/56 100 Mechanical Ventilator 40 11/15/18 02:42 76 35 Mechanical Ventilator 40 11/15/18 02:27 76 35 100 Mechanical Ventilator 40 11/15/18 02:25 76 35 40 11/15/18 02:14 101.7 68 22 107/56 (73) 96 Endotracheal Tube Critical Care - Subjective ROS Limited/Unobtainable: No FI02: 60 Vent Support Breath Rate: 22 Vent Support Mode: AC Vent Tidal Volume: 400 Sputum Amount: Small PEEP: 5.0 PIP: 41 Booker Baumann MD Nov 15, 2018 05:50
[2018-11-15] MEDS: NovoLOG Insulin Flexpen SUBQ SCH ×4 (06:30→20:44)
[2018-11-15] MEDS: Albuterol/Ipratropium 3ml neb HHN SCH ×5 (07:46→23:16)
[2018-11-15 08:27] LABS: HEMATOCRIT 21.1 % (42.0-52.0); MEAN CORPUSCULAR VOLUME 86 FL (80-99); PLATELET COUNT 290 K/UL (150-450); RED BLOOD COUNT 2.47 M/UL (4.70-6.10); RED CELL DISTRIBUTION WIDTH 16.6 % (11.6-14.8)
[2018-11-15 08:37] LABS: WHITE BLOOD COUNT 47.2 K/UL (4.8-10.8)
[2018-11-15 08:38] LABS: HEMOGLOBIN 6.6 G/DL (14.2-18.0)
[2018-11-15] MEDS: Doxycycline Hyclate 100 MG in D5W 110 ML IV SCH ×2 (08:58→20:42)
[2018-11-15] MEDS: D5 1/2NS 1,000 ML IV SCH ×2 (08:58→19:01)
[2018-11-15] MEDS: Pantoprazole Inj IVP SCH ×2 (08:58→20:42)
[2018-11-15] MEDS: Tums 500mg GT SCH (08:59)
[2018-11-15 09:00] LABS: ANION GAP 9 mmol/L (5-15); BLOOD UREA NITROGEN 48 mg/dL (7-18); CARBON DIOXIDE 28 MMOL/L (21-32); CHLORIDE 113 MMOL/L (98-107); CREATININE 2.5 MG/DL (0.55-1.30); POTASSIUM 4.7 MMOL/L (3.5-5.1); SODIUM 150 MMOL/L (136-145)
[2018-11-15] MEDS ORDERED: Heparin 5000 units/ml inj SUBQ SCH (09:00)
[2018-11-15 09:12] LABS: INR 1.1 (0.9-1.1); IRON 7 ug/dL (50-175); TOTAL IRON BINDING CAPACITY 128 ug/dL (250-450)
[2018-11-15 09:17] LABS: PHOSPHORUS 3.8 MG/DL (2.5-4.9)
[2018-11-15 09:22] LABS: % IRON SATURATION 5 % (15-50)
--- NOTE | 2018-11-15 10:06 | Cardiac Electrophysiology PN ---
Subjective Subjective [id number] Objective Last 24 Hour Vital Signs Date Time Temp Pulse Resp B/P (MAP) Pulse Ox O2 Delivery O2 Flow Rate FiO2 11/15/18 08:58 96/41 11/15/18 08:43 72 40 60 11/15/18 07:56 72 44 100 Mechanical Ventilator 60 70 34 11/15/18 07:00 70 36 87/49 (62) 98 11/15/18 06:50 71 38 60 11/15/18 06:30 71 35 92/58 (69) 100 11/15/18 06:00 72 36 102/55 (71) 100 11/15/18 05:45 92/58 11/15/18 05:20 97.8 73 32 120/107 (111) 95 11/15/18 05:20 Mechanical Ventilator 11/15/18 04:45 101.7 75 43 107/56 100 Mechanical Ventilator 60 11/15/18 04:37 70 43 60 11/15/18 03:30 71 40 60 11/15/18 02:42 101.7 75 35 107/56 100 Mechanical Ventilator 40 11/15/18 02:42 76 35 Mechanical Ventilator 40 11/15/18 02:27 76 35 100 Mechanical Ventilator 40 11/15/18 02:25 76 35 40 11/15/18 02:14 101.7 68 22 107/56 (73) 96 Endotracheal Tube Intake and Output 11/14/18 11/15/18 18:59 06:59 Intake Total 0 ml Balance 0 ml Intake Tube Feeding 0 ml Laboratory Tests Test 11/15/18 02:25 11/15/18 02:43 11/15/18 03:53 11/15/18 07:50 White Blood Count 52.1 K/UL (4.8-10.8) *H 47.2 K/UL (4.8-10.8) *H Red Blood Count 2.83 M/UL (4.70-6.10) L 2.47 M/UL (4.70-6.10) L Hemoglobin 7.5 G/DL (14.2-18.0) L 6.6 G/DL (14.2-18.0) *L Hematocrit 24.0 % (42.0-52.0) L 21.1 % (42.0-52.0) L Mean Corpuscular Volume 85 FL (80-99) 86 FL (80-99) Mean Corpuscular Hemoglobin 26.3 PG (27.0-31.0) L 26.8 PG (27.0-31.0) L Mean Corpuscular Hemoglobin Concent 31.1 G/DL (32.0-36.0) L 31.4 G/DL (32.0-36.0) L Red Cell Distribution Width 16.9 % (11.6-14.8) H 16.6 % (11.6-14.8) H Platelet Count 327 K/UL (150-450) 290 K/UL (150-450) Mean Platelet Volume 6.6 FL (6.5-10.1) 6.9 FL (6.5-10.1) Neutrophils (%) (Auto) % (45.0-75.0) % (45.0-75.0) Lymphocytes (%) (Auto) % (20.0-45.0) % (20.0-45.0) Monocytes (%) (Auto) % (1.0-10.0) % (1.0-10.0) Eosinophils (%) (Auto) % (0.0-3.0) % (0.0-3.0) Basophils (%) (Auto) % (0.0-2.0) % (0.0-2.0) Differential Total Cells Counted 100 100 Neutrophils % (Manual) 83 % (45-75) H 91 % (45-75) H Lymphocytes % (Manual) 8 % (20-45) L 4 % (20-45) L Monocytes % (Manual) 1 % (1-10) 4 % (1-10) Eosinophils % (Manual) 0 % (0-3) 0 % (0-3) Basophils % (Manual) 0 % (0-2) 0 % (0-2) Band Neutrophils 8 % (0-8) 1 % (0-8) Platelet Estimate Adequate Adequate Platelet Morphology Normal Normal Sodium Level 150 MMOL/L (136-145) H 150 MMOL/L (136-145) H Potassium Level 5.2 MMOL/L (3.5-5.1) H 4.7 MMOL/L (3.5-5.1) Chloride Level 112 MMOL/L (98-107) H 113 MMOL/L (98-107) H Carbon Dioxide Level 29 MMOL/L (21-32) 28 MMOL/L (21-32) Anion Gap 9 mmol/L (5-15) 9 mmol/L (5-15) Blood Urea Nitrogen 47 mg/dL (7-18) H 48 mg/dL (7-18) H Creatinine 2.4 MG/DL (0.55-1.30) H 2.5 MG/DL (0.55-1.30) H Estimat Glomerular Filtration Rate mL/min (>60) mL/min (>60) Glucose Level 139 MG/DL (74-106) H 191 MG/DL (74-106) H Lactic Acid Level 5.80 mmol/L (0.4-2.0) H 5.90 mmol/L (0.66-2.22) H 4.10 mmol/L (0.4-2.0) H Calcium Level 8.5 MG/DL (8.5-10.1) 8.0 MG/DL (8.5-10.1) L Phosphorus Level 4.5 MG/DL (2.5-4.9) 3.8 MG/DL (2.5-4.9) Magnesium Level 2.6 MG/DL (1.8-2.4) H 2.4 MG/DL (1.8-2.4) Total Bilirubin 0.5 MG/DL (0.2-1.0) Aspartate Amino Transf (AST/SGOT) 174 U/L (15-37) H Alanine Aminotransferase (ALT/SGPT) 244 U/L (12-78) H Alkaline Phosphatase 147 U/L (46-116) H Total Creatine Kinase 75 U/L (26-308) Creatine Kinase MB 0.6 NG/ML (0.0-3.6) Creatine Kinase MB Relative Index 0.8 Troponin I 0.118 ng/mL (0.000-0.056) 0.222 ng/mL (0.000-0.056) Pro-B-Type Natriuretic Peptide 63035 pg/mL (0-125) H Total Protein 7.1 G/DL (6.4-8.2) Albumin 2.3 G/DL (3.4-5.0) L Globulin 4.8 g/dL Albumin/Globulin Ratio 0.5 (1.0-2.7) L Arterial Blood pH 7.475 (7.350-7.450) Arterial Blood Partial Pressure CO2 35.7 mmHg (35.0-45.0) Arterial Blood Partial Pressure O2 59.4 mmHg (75.0-100.0) L Arterial Blood HCO3 25.7 mmol/L (22.0-26.0) Arterial Blood Oxygen Saturation 89.7 % (95-100) *L Arterial Blood Base Excess 2.1 (-2-2) H Ebenezer Test Positive Hypochromasia 3+ Anisocytosis 1+ Reticulocyte Count Pending Prothrombin Time 11.6 SEC (9.30-11.50) H Prothromb Time International Ratio 1.1 (0.9-1.1) Fibrinogen 303 mg/dL (200-400) Iron Level 7 ug/dL (50-175) L Total Iron Binding Capacity 128 ug/dL (250-450) L Percent Iron Saturation 5 % (15-50) L Unsaturated Iron Binding 121 ug/dL (112-346) Ferritin NG/ML (8-388) Folate Pending Luke Prather MD Nov 15, 2018 10:06
--- NOTE | 2018-11-15 10:20 | Consultation ---
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 Patient had prior history of diabetes as well as CHF. Patient noted to have temperature up to 102 degrees. Is chronically ventilator dependent. Patient was noted to have increased temperature. History is markedly limited by patient 's mental status. Allergies: TERAZOSIN (Verified Allergy, Unknown, 10/27/17) Past Medical History: No History, Except For Hx Diabetes: Yes - TYPE 2 Hx Gastrointestinal Problems: Yes Hx Neurological Problems: Yes Hx Dementia: Yes Hx Dysphasia: Yes Assessment/Plan Septic Shock Acute renal failure CKD underlying BPH Sever Anemia Chronic trach-Vent DM HypoAlbuminemia HyperNatremia Dementia Troponin elevation Fluid challenge avoid Nephrotoxics transfuse crabtree monitor urine out put and renal parameters per orders Randolph Fernandes MD Nov 15, 2018 10:20
[2018-11-15 10:29] LABS: FERRITIN > 2000 NG/ML (8-388)
--- NOTE | 2018-11-15 10:54 | Diagnostic Imaging Report ---
Indication: Shortness of breath Technique: One view of the chest Comparison: 12/14/2017 Findings: Interim development of hazy infiltrate throughout much of the left lung. There is also some interstitial congestion. There may be some pleural fluid at the left lung base. Mild interstitial congestive changes without focal airspace consolidation are seen in the right lung. The heart is mildly enlarged. Tracheostomy is now present. Previously demonstrated PICC tip now projects at the level of the right axillary vein Impression: Hazy left lung infiltrate versus edema. Bilateral interstitial congestion Suspect small left pleural effusion Cardiomegaly Note PICC tip in the right axillary vein, withdrawn since prior exam Interim tracheostomy placement
[2018-11-15] MEDS: ZyPREXA Zydis 5mg tab GT SCH (11:19)
--- NOTE | 2018-11-15 11:37 | GI Initial Consult Note ---
History of Present Illness General Date patient seen: Nov 15, 2018 Time patient seen: 11:32 Reason for Hospitalization: Fever Referring physician: JOSE LUIS GAYLE Reason for Consultation: ANEMIA Present Illness HPI Patient is an 88-year-old male brought in by ambulance after increased fever. Patient had prior history of diabetes as well as CHF. Patient noted to have temperature up to 102 degrees. Is chronically ventilator dependent. Patient was noted to have increased temperature. History is markedly limited by patient 's mental status. GI consulted for anemia. ROS limited, patient unable to provide any history at this time. Patient presents today in septic shock; WBC 47.2 hemoglobin 6.6, hematocrit 21.1,, ferritin level greater than 2000, troponin level 0.222 creatinine 2.5, sodium level 150. The patient is a G-tube dependent, placed last year. Home Meds Reported Medications Quetiapine Fumarate* (QUETIAPINE FUMARATE*) 50 Mg Tablet, 50 MG ORAL DAILY, TAB 11/15/18 Chlorhexidine Gluconate (Peridex) 15 Ml Mouthwash, 15 ML MM, ML 11/15/18 Olanzapine* (ZYPREXA*) 2.5 Mg Tablet, 7.5 MG ORAL DAILY, #30 TAB 0 Refills 11/15/18 Hydrocodone Bit/Acetaminophen 5-325* (NORCO 5-325*) 1 Each Tablet, ORAL Q4H PRN for For Pain, #10 TAB 0 Refills 11/15/18 Nitroglycerin (NITROGLYCERIN PATCH) 1 Each Patch.td24, 1 EACH TD, PATCH 11/15/18 Metoprolol Tartrate* (METOPROLOL TARTRATE*) 100 Mg Tablet, 100 MG ORAL EVERY 12 HOURS, TAB 11/15/18 Hydralazine Hcl* (HYDRALAZINE HCL*) 50 Mg Tablet, 50 MG ORAL EVERY 8 HOURS, TAB 11/15/18 Heparin Sod (Porcine) (HEPARIN SODIUM*) 5 000/1 Ml Vial, 5000 UNITS SUBQ EVERY 12 HOURS, VIAL 11/15/18 Ferrous Sulfate* (FERROUS SULFATE*) 325 Mg Tablet, 325 MG ORAL DAILY, #30 TAB 0 Refills 11/15/18 Clonidine Hcl* (CATAPRES*) 0.1 Mg Tablet, 0.1 MG ORAL EVERY 6 HOURS, TAB 11/15/18 Calcium Carbonate (CALCIUM CARBONATE) 500 Mg Tablet, 500 MG PO, TAB 11/15/18 Sennosides (SENNA) 8.6 Mg Tablet, 8.6 MG GT DAILY, TAB 12/01/17 Acetaminophen* (ACETAMINOPHEN 325MG TABLET*) 325 Mg Tablet, 650 MG ORAL Q4H PRN for FEVER (TEMP >101F) 10/27/17 Acetaminophen* (ACETAMINOPHEN 325MG TABLET*) 325 Mg Tablet, 650 MG ORAL Q4H PRN for For Pain 10/27/17 Sennosides* (SENNOSIDES*) 8.6 Mg Tablet, 17.2 MG ORAL QPM for HOLD FOR LBM; for constipation 10/27/17 Magnesium Hydroxide* (MILK OF MAGNESIA*) 400 Mg/5 Ml Oral.susp, 30 ML GT QHS for PRN if stool softeners ineffec 10/27/17 Tamsulosin Hcl (TAMSULOSIN HCL*) 0.4 Mg Cap.er.24h, 0.4 MG GT BEDTIME, CAP 10/27/17 Na Phos,M-B/Na Phos,Di-Ba (Fleet Enema) 133 Ml Enema, 133 ML RC, EA 10/27/17 Bisacodyl (DULCOLAX) 10 Mg Supp.rect, 10 MG RC, SUPP 10/27/17 Donepezil Hcl* (DONEPEZIL HCL*) 10 Mg Tablet, 10 MG GT DAILY, TAB 10/27/17 Docusate Sodium* (COLACE*) 100 Mg Capsule, 100 MG GT DAILY, CAP 10/27/17 Atorvastatin Calcium* (LIPITOR*) 10 Mg Tablet, 10 MG GT BEDTIME, TAB 10/27/17 Aspirin (Aspirin EC) 81 Mg Tablet.dr, 81 MG GT DAILY, TAB 10/27/17 Amlodipine Besylate (Norvasc) 5 Mg Tablet, 5 MG GT DAILY, TAB 10/27/17 Med list reviewed/reconciled: Yes Allergies: Coded Allergies: TERAZOSIN (Verified Allergy, Unknown, 10/27/17) Patient History PMH Narrative Past Medical History: see triage record Reviewed Nursing Documentation: PMH: Agreed; PSxH: Agreed Nursing Documentation-PMH Past Medical History: No History, Except For Hx Diabetes: Yes - TYPE 2 Hx Cancer: No Hx Gastrointestinal Problems: Yes Hx Neurological Problems: Yes Hx Dementia: Yes Hx Dysphasia: Yes Review of Systems All Other Systems: limited Physical Exam Vital Signs Date Time Temp Pulse Resp B/P (MAP) Pulse Ox O2 Delivery O2 Flow Rate FiO2 11/15/18 02:14 101.7 68 22 107/56 (73) 96 Endotracheal Tube 11/15/18 02:25 40 Sp02 EP Interpretation: reviewed, normal Labs Laboratory Tests Test 11/15/18 02:25 11/15/18 02:43 11/15/18 03:53 11/15/18 07:50 White Blood Count 52.1 K/UL (4.8-10.8) *H 47.2 K/UL (4.8-10.8) *H Red Blood Count 2.83 M/UL (4.70-6.10) L 2.47 M/UL (4.70-6.10) L Hemoglobin 7.5 G/DL (14.2-18.0) L 6.6 G/DL (14.2-18.0) *L Hematocrit 24.0 % (42.0-52.0) L 21.1 % (42.0-52.0) L Mean Corpuscular Volume 85 FL (80-99) 86 FL (80-99) Mean Corpuscular Hemoglobin 26.3 PG (27.0-31.0) L 26.8 PG (27.0-31.0) L Mean Corpuscular Hemoglobin Concent 31.1 G/DL (32.0-36.0) L 31.4 G/DL (32.0-36.0) L Red Cell Distribution Width 16.9 % (11.6-14.8) H 16.6 % (11.6-14.8) H Platelet Count 327 K/UL (150-450) 290 K/UL (150-450) Mean Platelet Volume 6.6 FL (6.5-10.1) 6.9 FL (6.5-10.1) Neutrophils (%) (Auto) % (45.0-75.0) % (45.0-75.0) Lymphocytes (%) (Auto) % (20.0-45.0) % (20.0-45.0) Monocytes (%) (Auto) % (1.0-10.0) % (1.0-10.0) Eosinophils (%) (Auto) % (0.0-3.0) % (0.0-3.0) Basophils (%) (Auto) % (0.0-2.0) % (0.0-2.0) Differential Total Cells Counted 100 100 Neutrophils % (Manual) 83 % (45-75) H 91 % (45-75) H Lymphocytes % (Manual) 8 % (20-45) L 4 % (20-45) L Monocytes % (Manual) 1 % (1-10) 4 % (1-10) Eosinophils % (Manual) 0 % (0-3) 0 % (0-3) Basophils % (Manual) 0 % (0-2) 0 % (0-2) Band Neutrophils 8 % (0-8) 1 % (0-8) Platelet Estimate Adequate Adequate Platelet Morphology Normal Normal Sodium Level 150 MMOL/L (136-145) H 150 MMOL/L (136-145) H Potassium Level 5.2 MMOL/L (3.5-5.1) H 4.7 MMOL/L (3.5-5.1) Chloride Level 112 MMOL/L (98-107) H 113 MMOL/L (98-107) H Carbon Dioxide Level 29 MMOL/L (21-32) 28 MMOL/L (21-32) Anion Gap 9 mmol/L (5-15) 9 mmol/L (5-15) Blood Urea Nitrogen 47 mg/dL (7-18) H 48 mg/dL (7-18) H Creatinine 2.4 MG/DL (0.55-1.30) H 2.5 MG/DL (0.55-1.30) H Estimat Glomerular Filtration Rate mL/min (>60) mL/min (>60) Glucose Level 139 MG/DL (74-106) H 191 MG/DL (74-106) H Lactic Acid Level 5.80 mmol/L (0.4-2.0) H 5.90 mmol/L (0.66-2.22) H 4.10 mmol/L (0.4-2.0) H Calcium Level 8.5 MG/DL (8.5-10.1) 8.0 MG/DL (8.5-10.1) L Phosphorus Level 4.5 MG/DL (2.5-4.9) 3.8 MG/DL (2.5-4.9) Magnesium Level 2.6 MG/DL (1.8-2.4) H 2.4 MG/DL (1.8-2.4) Total Bilirubin 0.5 MG/DL (0.2-1.0) Aspartate Amino Transf (AST/SGOT) 174 U/L (15-37) H Alanine Aminotransferase (ALT/SGPT) 244 U/L (12-78) H Alkaline Phosphatase 147 U/L (46-116) H Total Creatine Kinase 75 U/L (26-308) Creatine Kinase MB 0.6 NG/ML (0.0-3.6) Creatine Kinase MB Relative Index 0.8 Troponin I 0.118 ng/mL (0.000-0.056) 0.222 ng/mL (0.000-0.056) Pro-B-Type Natriuretic Peptide 70138 pg/mL (0-125) H Total Protein 7.1 G/DL (6.4-8.2) Albumin 2.3 G/DL (3.4-5.0) L Globulin 4.8 g/dL Albumin/Globulin Ratio 0.5 (1.0-2.7) L Arterial Blood pH 7.475 (7.350-7.450) Arterial Blood Partial Pressure CO2 35.7 mmHg (35.0-45.0) Arterial Blood Partial Pressure O2 59.4 mmHg (75.0-100.0) L Arterial Blood HCO3 25.7 mmol/L (22.0-26.0) Arterial Blood Oxygen Saturation 89.7 % (95-100) *L Arterial Blood Base Excess 2.1 (-2-2) H Ebenezer Test Positive Hypochromasia 3+ Anisocytosis 1+ Reticulocyte Count 2.9 % (0.5-2.0) H Prothrombin Time 11.6 SEC (9.30-11.50) H Prothromb Time International Ratio 1.1 (0.9-1.1) Fibrinogen 303 mg/dL (200-400) Iron Level 7 ug/dL (50-175) L Total Iron Binding Capacity 128 ug/dL (250-450) L Percent Iron Saturation 5 % (15-50) L Unsaturated Iron Binding 121 ug/dL (112-346) Ferritin > 2000 NG/ML (8-388) H Folate 59.7 NG/ML (8.6-58.9) H General Appearance: well appearing, no apparent distress, alert, obese Head: normocephalic EENT: PERRL/EOMI, normal ENT inspection Neck: supple Respiratory: normal breath sounds, no respiratory distress Cardiovascular: normal rate Gastrointestinal: normal inspection, non tender, soft, normal bowel sounds, non -distended Rectal: deferred Genitourinary: deferred Musculoskeletal: normal inspection, back normal Skin: normal inspection, normal color, no rash, warm/dry, palpation normal, well hydrated Lymphatic: normal inspection, no adenopathy Current Medications Current Medications Medications (Trade) Dose Ordered Sig/Ruthie Route PRN Reason Start Time Stop Time Status Last Admin Dose Admin Acetaminophen (Tylenol) 650 mg Q6H PRN NG Mild Pain/Temp > 100.5 11/15/18 05:45 12/15/18 05:44 Acetaminophen/ Hydrocodone Bitart (Thornton 5/325) 1 tab Q4H PRN ORAL Moderate Pain (Pain Scale 4-6) 11/15/18 05:45 11/22/18 05:44 Albumin Human 50 ml @ 50 mls/hr ONCE ONCE IV 11/15/18 11:15 11/15/18 12:14 Albuterol/ Ipratropium (Albuterol/ Ipratropium) 3 ml Q4HRT HHN 11/15/18 07:00 11/20/18 06:59 11/15/18 11:06 Atorvastatin Calcium (Lipitor) 10 mg BEDTIME ORAL 11/15/18 21:00 12/15/18 20:59 Bisacodyl (Dulcolax) 10 mg DAILYPRN PRN RECTAL Constipation 11/15/18 05:45 12/15/18 05:44 Calcium Carbonate (Tums) 500 mg DAILY GT 11/15/18 09:00 12/15/18 08:59 11/15/18 08:59 Chlorhexidine Gluconate (Rachael-Hex 2%) 1 applic DAILY@2000 TOPIC 11/15/18 20:00 12/15/18 19:59 Dextrose (Dextrose 50%) 25 ml Q30M PRN IV Hypoglycemia 11/15/18 05:45 12/15/18 05:44 Dextrose (Dextrose 50%) 50 ml Q30M PRN IV Hypoglycemia 11/15/18 05:45 12/15/18 05:44 Dextrose/Sodium Chloride 1,000 ml @ 100 mls/hr Q10H IV 11/15/18 08:00 12/15/18 07:59 11/15/18 08:58 Doxycycline Hyclate 100 mg/ Dextrose 110 ml @ 110 mls/hr Q12HR IV 11/15/18 09:00 11/22/18 08:59 11/15/18 08:58 Ferrous Sulfate (Feosol) 325 mg DAILY ORAL 11/15/18 09:00 12/15/18 08:59 11/15/18 09:00 Hydromorphone HCl (Dilaudid) 0.5 mg Q4H PRN IVP For Pain 11/15/18 05:45 11/22/18 05:44 Insulin Aspart (NovoLOG) BEFORE MEALS AND HS SUBQ 11/15/18 06:30 12/15/18 06:29 Lorazepam (Ativan 2mg/ml 1ml) 0.5 mg Q4H PRN IV For Anxiety 11/15/18 05:45 11/22/18 05:44 Norepinephrine Bitartrate 4 mg/ Dextrose 250 ml @ 0 mls/hr Q24H IV 11/15/18 05:45 12/15/18 05:44 11/15/18 08:58 Olanzapine (ZyPREXA Zydis) 7.5 mg DAILY GT 11/15/18 09:00 12/15/18 08:59 11/15/18 11:19 Pantoprazole (Protonix) 40 mg EVERY 12 HOURS IVP 11/15/18 09:00 12/15/18 08:59 11/15/18 08:58 Piperacillin Sod/ Tazobactam Sod 3.375 gm/Sodium Chloride 110 ml @ 27.5 mls/hr Q8H IVPB 11/15/18 12:00 11/22/18 11:59 Quetiapine Fumarate (SEROquel) 50 mg DAILY GT 11/15/18 09:00 12/15/18 08:59 11/15/18 09:00 Tamsulosin HCl (Flomax) 0.4 mg BEDTIME ORAL 11/15/18 21:00 12/15/18 20:59 Vancomycin HCl (Vanco rx to dose) 1 ea DAILY PRN MISC Per rx protocol 11/15/18 05:45 12/15/18 05:44 Vancomycin HCl 1 gm/Dextrose 275 ml @ 183.708 mls/hr Q48H IVPB 11/17/18 03:00 11/22/18 02:59 GI: Plan Problems: (1) Gastrostomy tube dependent (2) Severe sepsis Plan Defer all GI procedures at this time, patient not stable. Maintain n.p.o. plus IV fluids anemia work up OB stool r/o GI bleed monitor H&H, prn transfusions as necessary to maintain hemoglobin above 7 bowel regimen ppi Hold iron supplementation given elevated ferritin levels abx fu labs Discussed with Dr. Coronel. Thank you for this patient referral, we will follow. The patient was seen and examined at bedside and all new and available data was reviewed in the patients chart. I agree with the above findings, impression and plan. (Patient seen earlier today. Signature stamp does not reflect patient encounter time.). - MD Kellie WillsAlicia-Dorian DISTRICT MANAGER [employer]AL SERVICE Nov 15, 2018 11:37
--- NOTE | 2018-11-15 12:58 | Diagnostic Imaging Report ---
Indication: Abdominal distention Technique: Reinoso-scale and duplex images of the upper abdomen were obtained Comparison: none Findings: Exam is somewhat limited, due to gastrostomy tube and overlying bowel gas limiting visualization of the abdominal aorta Gallbladder is unremarkable, without stones, wall thickening, nor pericholecystic fluid. Sonographic Carl's sign is negative. Common bile duct measures 4 mm in diameter. No intrahepatic biliary ductal dilatation. Liver demonstrates normal echogenicity, no focal abnormality. It demonstrates slight surface nodularity. It is enlarged. There is a 1 cm cyst which appears adjacent to the gallbladder wall. This is probably a small exophytic hepatic cyst. Portal vein and hepatic veins are patent. Pancreas is unremarkable. Spleen is unremarkable. Left kidney measures 9.2 cm in length. Right kidney measures 10.2 cm length. Both kidneys demonstrate normal echogenicity. There is no hydronephrosis. Both kidneys demonstrate cysts. . Abdominal aorta is partially obscured by bowel gas, visualized portions are non-aneurysmal . Impression: Negative for gallstones or dilated bile ducts Hepatic surface nodularity, may indicate early cirrhotic changes Hepatomegaly Incidental finding bilateral renal cysts Limited exam, as described
--- NOTE | 2018-11-15 13:07 | Diagnostic Imaging Report ---
APPROVED REPORT CPT Code: 55728 Present Symptoms Comments: R/O DVT No signs of DVT seen bilaterally. Rt. Pop V, Lt.CFV, SFV not seen due to contracture Other veins are patent
--- NOTE | 2018-11-15 15:11 | Consultation ---
History of Present Illness General Date patient seen: Nov 15, 2018 Reason for Hospitalization: Fever Present Illness HPI This is a 88-year-old male with multiple medical comorbidities who is a [facility] resident that presented to [facility] for evaluation of worsening fevers. Patient identified to be septic with leukocytosis, abnormal labs, anemia, fevers. Admitted to the intensive care unit for care and management. On admission identified to have multiple decubitus ulcers and failure to thrive. Surgery called to evaluate and assist with care. Patient seen, patient evaluated, chart reviewed. Allergies: Coded Allergies: TERAZOSIN (Verified Allergy, Unknown, 10/27/17) Medication History Scheduled Amlodipine Besylate (Norvasc), 5 MG GT DAILY, (Reported) Aspirin (Aspirin EC), 81 MG GT DAILY, (Reported) Atorvastatin Calcium* (Lipitor*), 10 MG GT BEDTIME, (Reported) Clonidine Hcl* (Catapres*), 0.1 MG ORAL EVERY 6 HOURS, (Reported) Docusate Sodium* (Colace*), 100 MG GT DAILY, (Reported) Donepezil Hcl* (Donepezil Hcl*), 10 MG GT DAILY, (Reported) Ferrous Sulfate* (Ferrous Sulfate*), 325 MG ORAL DAILY, (Reported) Heparin Sod (Porcine) (Heparin Sodium*), 5,000 UNITS SUBQ EVERY 12 HOURS, ( Reported) Hydralazine Hcl* (Hydralazine Hcl*), 50 MG ORAL EVERY 8 HOURS, (Reported) Magnesium Hydroxide* (Milk Of Magnesia*), 30 ML GT QHS, (Reported) Metoprolol Tartrate* (Metoprolol Tartrate*), 100 MG ORAL EVERY 12 HOURS, ( Reported) Olanzapine* (Zyprexa*), 7.5 MG ORAL DAILY, (Reported) Quetiapine Fumarate* (Quetiapine Fumarate*), 50 MG ORAL DAILY, (Reported) Sennosides (Senna), 8.6 MG GT DAILY, (Reported) Sennosides* (Sennosides*), 17.2 MG ORAL QPM, (Reported) Tamsulosin Hcl (Tamsulosin Hcl*), 0.4 MG GT BEDTIME, (Reported) Scheduled PRN Acetaminophen* (Acetaminophen 325MG Tablet*), 650 MG ORAL Q4H PRN for For Pain, (Reported) Acetaminophen* (Acetaminophen 325MG Tablet*), 650 MG ORAL Q4H PRN for FEVER ( TEMP >101F), (Reported) Hydrocodone Bit/Acetaminophen 5-325* ([place] 5-325*), Unknown Dose ORAL Q4H PRN for For Pain, (Reported) Miscellaneous Medications Bisacodyl (Dulcolax), 10 MG RC, (Reported) Calcium Carbonate (Calcium Carbonate), 500 MG PO, (Reported) Chlorhexidine Gluconate (Peridex), 15 ML MM, (Reported) Na Phos,M-B/Na Phos,Di-Ba (Fleet Enema), 133 ML RC, (Reported) Nitroglycerin (Nitroglycerin Patch), 1 EACH TD, (Reported) Patient History Limited by: medical condition History Provided By: Medical Record, PMD Healthcare decision maker Resuscitation status Advanced Directive on File Past Medical/Surgical History Past Medical/Surgical History: (1) Constipation (2) Malnutrition (3) Hypernatremia (4) DM (5) Rhabdomyolysis (6) Hypoxemia (7) Hypokalemia (8) Elevated d-dimer (9) Encephalopathy due to metabolic factor or toxin (10) Sacral decubitus ulcer (11) Prostate enlargement (12) Pneumonitis (13) Chronic renal disease (14) Ventilator dependence (15) Severe sepsis (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 Review of Systems Review of Symptoms General ROS: no weight loss or fever Psychological ROS: no depression or mood changes, no memory loss Ophthalmic ROS: no visual changes or eye irritation ENT ROS: no nasal congestion, hearing loss, dizziness Allergy and Immunology ROS: no allergic symptoms or urticaria Hematological and Lymphatic ROS: no swollen glands, unusual bleeding or bruising Endocrine ROS: no polyuria, polydipsia, weight changes, temperature intolerance Respiratory ROS: no cough, shortness of breath, or wheezing Cardiovascular ROS: no chest pain or dyspnea on exertion Gastrointestinal ROS: denies abdominal pain, bright red blood in stool. Musculoskeletal ROS: no myalgias or arthralgias Neurological ROS: no TIA or stroke symptoms Dermatological ROS: no new or changing skin lesions, rashes or pruritis Physical Exam Physical Exam General appearance: alert, cooperative, no distress, appears stated age Head: Normocephalic, without obvious abnormality, atraumatic Eyes: conjunctivae/corneas clear. PERRL, EOM's intact. Fundi benign Throat: Lips, mucosa, and tongue normal. Teeth and gums normal Neck: supple, symmetrical, trachea midline, no adenopathy, thyroid: not enlarged, symmetric, no tenderness/mass/nodules, no carotid bruit and no JVD Lungs: clear to auscultation bilaterally Heart: regular rate and rhythm, S1, S2 normal, no murmur, click, rub or gallop Abdomen: soft, non-tender. Bowel sounds normal. No masses, no organomegaly Extremities: extremities normal, atraumatic, no cyanosis or edema Pulses: 2+ and symmetric Skin: Skin color, texture, turgor normal. No rashes or lesions Neurologic: Grossly normal Last 24 Hour Vital Signs Date Time Temp Pulse Resp B/P (MAP) Pulse Ox O2 Delivery O2 Flow Rate FiO2 11/15/18 13:20 73 35 50 11/15/18 12:00 83 11/15/18 12:00 60 11/15/18 11:16 79 48 100 Mechanical Ventilator 60 77 45 60 11/15/18 08:58 96/41 11/15/18 08:43 72 40 60 11/15/18 08:00 60 11/15/18 08:00 69 11/15/18 07:56 72 44 100 Mechanical Ventilator 60 70 34 11/15/18 07:00 70 36 87/49 (62) 98 11/15/18 06:50 71 38 60 11/15/18 06:30 71 35 92/58 (69) 100 11/15/18 06:00 72 36 102/55 (71) 100 11/15/18 05:45 92/58 11/15/18 05:20 97.8 73 32 120/107 (111) 95 11/15/18 05:20 Mechanical Ventilator 11/15/18 04:45 101.7 75 43 107/56 100 Mechanical Ventilator 60 11/15/18 04:37 70 43 60 11/15/18 03:30 71 40 60 11/15/18 02:42 101.7 75 35 107/56 100 Mechanical Ventilator 40 11/15/18 02:42 76 35 Mechanical Ventilator 40 11/15/18 02:27 76 35 100 Mechanical Ventilator 40 11/15/18 02:25 76 35 40 11/15/18 02:14 101.7 68 22 107/56 (73) 96 Endotracheal Tube Intake and Output 11/14/18 11/15/18 18:59 06:59 Intake Total 0 ml Balance 0 ml Intake Tube Feeding 0 ml Laboratory Tests Test 11/15/18 02:25 11/15/18 02:43 11/15/18 03:53 11/15/18 07:50 White Blood Count 52.1 K/UL (4.8-10.8) *H 47.2 K/UL (4.8-10.8) *H Red Blood Count 2.83 M/UL (4.70-6.10) L 2.47 M/UL (4.70-6.10) L Hemoglobin 7.5 G/DL (14.2-18.0) L 6.6 G/DL (14.2-18.0) *L Hematocrit 24.0 % (42.0-52.0) L 21.1 % (42.0-52.0) L Mean Corpuscular Volume 85 FL (80-99) 86 FL (80-99) Mean Corpuscular Hemoglobin 26.3 PG (27.0-31.0) L 26.8 PG (27.0-31.0) L Mean Corpuscular Hemoglobin Concent 31.1 G/DL (32.0-36.0) L 31.4 G/DL (32.0-36.0) L Red Cell Distribution Width 16.9 % (11.6-14.8) H 16.6 % (11.6-14.8) H Platelet Count 327 K/UL (150-450) 290 K/UL (150-450) Mean Platelet Volume 6.6 FL (6.5-10.1) 6.9 FL (6.5-10.1) Neutrophils (%) (Auto) % (45.0-75.0) % (45.0-75.0) Lymphocytes (%) (Auto) % (20.0-45.0) % (20.0-45.0) Monocytes (%) (Auto) % (1.0-10.0) % (1.0-10.0) Eosinophils (%) (Auto) % (0.0-3.0) % (0.0-3.0) Basophils (%) (Auto) % (0.0-2.0) % (0.0-2.0) Differential Total Cells Counted 100 100 Neutrophils % (Manual) 83 % (45-75) H 91 % (45-75) H Lymphocytes % (Manual) 8 % (20-45) L 4 % (20-45) L Monocytes % (Manual) 1 % (1-10) 4 % (1-10) Eosinophils % (Manual) 0 % (0-3) 0 % (0-3) Basophils % (Manual) 0 % (0-2) 0 % (0-2) Band Neutrophils 8 % (0-8) 1 % (0-8) Platelet Estimate Adequate Adequate Platelet Morphology Normal Normal Sodium Level 150 MMOL/L (136-145) H 150 MMOL/L (136-145) H Potassium Level 5.2 MMOL/L (3.5-5.1) H 4.7 MMOL/L (3.5-5.1) Chloride Level 112 MMOL/L (98-107) H 113 MMOL/L (98-107) H Carbon Dioxide Level 29 MMOL/L (21-32) 28 MMOL/L (21-32) Anion Gap 9 mmol/L (5-15) 9 mmol/L (5-15) Blood Urea Nitrogen 47 mg/dL (7-18) H 48 mg/dL (7-18) H Creatinine 2.4 MG/DL (0.55-1.30) H 2.5 MG/DL (0.55-1.30) H Estimat Glomerular Filtration Rate mL/min (>60) mL/min (>60) Glucose Level 139 MG/DL (74-106) H 191 MG/DL (74-106) H Lactic Acid Level 5.80 mmol/L (0.4-2.0) H 5.90 mmol/L (0.66-2.22) H 4.10 mmol/L (0.4-2.0) H Calcium Level 8.5 MG/DL (8.5-10.1) 8.0 MG/DL (8.5-10.1) L Phosphorus Level 4.5 MG/DL (2.5-4.9) 3.8 MG/DL (2.5-4.9) Magnesium Level 2.6 MG/DL (1.8-2.4) H 2.4 MG/DL (1.8-2.4) Total Bilirubin 0.5 MG/DL (0.2-1.0) Aspartate Amino Transf (AST/SGOT) 174 U/L (15-37) H Alanine Aminotransferase (ALT/SGPT) 244 U/L (12-78) H Alkaline Phosphatase 147 U/L (46-116) H Total Creatine Kinase 75 U/L (26-308) Creatine Kinase MB 0.6 NG/ML (0.0-3.6) Creatine Kinase MB Relative Index 0.8 Troponin I 0.118 ng/mL (0.000-0.056) 0.222 ng/mL (0.000-0.056) Pro-B-Type Natriuretic Peptide 70978 pg/mL (0-125) H Total Protein 7.1 G/DL (6.4-8.2) Albumin 2.3 G/DL (3.4-5.0) L Globulin 4.8 g/dL Albumin/Globulin Ratio 0.5 (1.0-2.7) L Arterial Blood pH 7.475 (7.350-7.450) Arterial Blood Partial Pressure CO2 35.7 mmHg (35.0-45.0) Arterial Blood Partial Pressure O2 59.4 mmHg (75.0-100.0) L Arterial Blood HCO3 25.7 mmol/L (22.0-26.0) Arterial Blood Oxygen Saturation 89.7 % (95-100) *L Arterial Blood Base Excess 2.1 (-2-2) H Ebenezer Test Positive Other Cell Type See comments Hypochromasia 3+ Anisocytosis 1+ Reticulocyte Count 2.9 % (0.5-2.0) H Prothrombin Time 11.6 SEC (9.30-11.50) H Prothromb Time International Ratio 1.1 (0.9-1.1) Fibrinogen 303 mg/dL (200-400) Iron Level 7 ug/dL (50-175) L Total Iron Binding Capacity 128 ug/dL (250-450) L Percent Iron Saturation 5 % (15-50) L Unsaturated Iron Binding 121 ug/dL (112-346) Ferritin > 2000 NG/ML (8-388) H Folate 59.7 NG/ML (8.6-58.9) H Height (Feet): 5 Height (Inches): 8.00 Weight (Pounds): 162 Medications Current Medications Medications (Trade) Dose Ordered Sig/Ruthie Route PRN Reason Start Time Stop Time Status Last Admin Dose Admin Acetaminophen (Tylenol) 650 mg Q6H PRN NG Mild Pain/Temp > 100.5 11/15/18 05:45 12/15/18 05:44 Acetaminophen/ Hydrocodone Bitart ([place] 5/325) 1 tab Q4H PRN ORAL Moderate Pain (Pain Scale 4-6) 11/15/18 05:45 11/22/18 05:44 Albuterol/ Ipratropium (Albuterol/ Ipratropium) 3 ml Q4HRT HHN 11/15/18 07:00 11/20/18 06:59 11/15/18 14:47 Atorvastatin Calcium (Lipitor) 10 mg BEDTIME ORAL 11/15/18 21:00 12/15/18 20:59 Bisacodyl (Dulcolax) 10 mg DAILYPRN PRN RECTAL Constipation 11/15/18 05:45 12/15/18 05:44 Calcium Carbonate (Tums) 500 mg DAILY GT 11/15/18 09:00 12/15/18 08:59 11/15/18 08:59 Chlorhexidine Gluconate (Rachael-Hex 2%) 1 applic DAILY@2000 TOPIC 11/15/18 20:00 12/15/18 19:59 Dextrose (Dextrose 50%) 25 ml Q30M PRN IV Hypoglycemia 11/15/18 05:45 12/15/18 05:44 Dextrose (Dextrose 50%) 50 ml Q30M PRN IV Hypoglycemia 11/15/18 05:45 12/15/18 05:44 Dextrose/Sodium Chloride 1,000 ml @ 100 mls/hr Q10H IV 11/15/18 08:00 12/15/18 07:59 11/15/18 08:58 Doxycycline Hyclate 100 mg/ Dextrose 110 ml @ 110 mls/hr Q12HR IV 11/15/18 09:00 11/22/18 08:59 11/15/18 08:58 Ferrous Sulfate (Feosol) 325 mg DAILY ORAL 11/15/18 09:00 12/15/18 08:59 11/15/18 09:00 Hydromorphone HCl (Dilaudid) 0.5 mg Q4H PRN IVP For Pain 11/15/18 05:45 11/22/18 05:44 Insulin Aspart (NovoLOG) BEFORE MEALS AND HS SUBQ 11/15/18 06:30 12/15/18 06:29 Lorazepam (Ativan 2mg/ml 1ml) 0.5 mg Q4H PRN IV For Anxiety 11/15/18 05:45 11/22/18 05:44 Norepinephrine Bitartrate 4 mg/ Dextrose 250 ml @ 0 mls/hr Q24H IV 11/15/18 05:45 12/15/18 05:44 11/15/18 08:58 Olanzapine (ZyPREXA Zydis) 7.5 mg DAILY GT 11/15/18 09:00 12/15/18 08:59 11/15/18 11:19 Pantoprazole (Protonix) 40 mg EVERY 12 HOURS IVP 11/15/18 09:00 12/15/18 08:59 11/15/18 08:58 Piperacillin Sod/ Tazobactam Sod 3.375 gm/Sodium Chloride 110 ml @ 27.5 mls/hr Q8H IVPB 11/15/18 12:00 11/22/18 11:59 Quetiapine Fumarate (SEROquel) 50 mg DAILY GT 11/15/18 09:00 12/15/18 08:59 11/15/18 09:00 Tamsulosin HCl (Flomax) 0.4 mg BEDTIME ORAL 11/15/18 21:00 12/15/18 20:59 Vancomycin HCl (Vanco rx to dose) 1 ea DAILY PRN MISC Per rx protocol 11/15/18 05:45 12/15/18 05:44 Vancomycin HCl 1 gm/Dextrose 275 ml @ 183.708 mls/hr Q48H IVPB 11/17/18 03:00 11/22/18 02:59 Assessment/Plan Problem List: (1) Severe sepsis Assessment & Plan: leukocytosis, anemia, lactic acidosis, fevers IV Abx imaging noted and reviewed exam as below cont abx trend labs thank you will follow with recs ICD Codes: A41.9 - Sepsis, unspecified organism; R65.20 - Severe sepsis without septic shock SNOMED: 57297302 (2) Malnutrition Assessment & Plan: DAILY ESTIMATED NEEDS: Needs based on Critical care, sepsis 71.8 kg 22-30 kcals/kg 7048-5628 total kcals 1.2-2 g protein/kg 86- 144 g total protein 25-30 mL/kg 1795- 2154 total fluid mLs NUTRITION DIAGNOSIS: * Swallowing difficulty R/T respiratory status and dysphagia as evidenced by pt is vent dep, on TF. * Altered nutrition related lab values r/t sepsis, clinical status, h/o Diabetes as evidenced by critically elev WBC (47.2), low Hgb (6.6), elev BNP, low BP (96/41), BG 191, POC 179. CURRENT TF: Jevity 1.2 @ 70mL/hr x 20hr - NOW NPO ENTERAL NUTRITION RECOMMENDATIONS: Vital 1.2 @55mL/hr x24 hrs to provide 1320mL, 1584kcal, 99g pro, 1071mL free H2O * As medically appropriate to feed, rec TF change to VITAL 1.2 for critical care. * Start Vital 1,2, @25mL, advance as tolerated 10ml/hr q4-6 hrs to goal * HOB over 30 degrees/ water flush per MD --- Low Hgb (6.6), NPO per GI-> rec trophic feeds when appropriate if pt remains hypotensive. ADDITIONAL RECOMMENDATIONS: * Per SNF: HT 68 inches WT 158 lbs + Daily calibrated bed scale wts * Change TF to Vital 1.2, as medically able to feed * Monitor lytes (replete as needed) * F/up w/ WC eval . ICD Codes: E46 - Unspecified protein-calorie malnutrition SNOMED: 60403684 (3) Sacral decubitus ulcer Assessment & Plan: Pt presented on admission with contractures and multiple pressure injuries. Partially opened DTPI L buttocks. Base of wound moist - viable with surrounding dark and fluctuant borders.(L)1.2cm x (W)1cm. Small amt of sanguineous exudate noted. No odor noted. Hyperpigmentation noted to sacrum. Historical scar from previous wound noted to L trochanter. Penile head retracted within foreskin and small wound noted within folds of foreskin. Wound is moist and viable. No odor or exudate noted. No erythema noted periwound. Resolving pressure injury plantar R heel. Base of wound 50% epithelialized, 50% moist and viable.(L)5.5cm x (W)6.5cm. Resolving pressure injury lateral L heel. Base of wound is moist and viable with surrounding hyperpigmentation.(L)0.6cm x (W)0.5cm. Scattered loose, dry brown skin noted to medial and posterior L heel. Tx.Plan: Apply Moisture Barrier Paste to L buttocks and sacrum. Cover with Optifoam drsg. Change every 3 days and prn. Cleanse head of penis with soap and water. Apply Bacitracin oint Twice Daily. Apply Betadine to R and L heel wounds. Cover each heel with Optifoam drsg. Daily and prn. APM/ABDELRAHMAN Mattress overlay. Reposition at least every 2hours and prn. Off-load heels with pillow. ICD Codes: L89.159 - Pressure ulcer of sacral region, unspecified stage SNOMED: 766021569 Don Carvalho Nov 15, 2018 15:11
[2018-11-15] MEDS: Piperacillin/Tazobactam 3.375 GM in NS 110 ML IVPB SCH ×2 (15:38→19:59)
--- NOTE | 2018-11-15 16:24 | Consultation ---
History of Present Illness General Chief Complaint: Fever Referring physician: TRISH GAYLE Reason for Consultation: ANEMIA Present Illness Allergies: Coded Allergies: TERAZOSIN (Verified Allergy, Unknown, 10/27/17) Medication History Scheduled Amlodipine Besylate (Norvasc), 5 MG GT DAILY, (Reported) Aspirin (Aspirin EC), 81 MG GT DAILY, (Reported) Atorvastatin Calcium* (Lipitor*), 10 MG GT BEDTIME, (Reported) Clonidine Hcl* (Catapres*), 0.1 MG ORAL EVERY 6 HOURS, (Reported) Docusate Sodium* (Colace*), 100 MG GT DAILY, (Reported) Donepezil Hcl* (Donepezil Hcl*), 10 MG GT DAILY, (Reported) Ferrous Sulfate* (Ferrous Sulfate*), 325 MG ORAL DAILY, (Reported) Heparin Sod (Porcine) (Heparin Sodium*), 5,000 UNITS SUBQ EVERY 12 HOURS, ( Reported) Hydralazine Hcl* (Hydralazine Hcl*), 50 MG ORAL EVERY 8 HOURS, (Reported) Magnesium Hydroxide* (Milk Of Magnesia*), 30 ML GT QHS, (Reported) Metoprolol Tartrate* (Metoprolol Tartrate*), 100 MG ORAL EVERY 12 HOURS, ( Reported) Olanzapine* (Zyprexa*), 7.5 MG ORAL DAILY, (Reported) Quetiapine Fumarate* (Quetiapine Fumarate*), 50 MG ORAL DAILY, (Reported) Sennosides (Senna), 8.6 MG GT DAILY, (Reported) Sennosides* (Sennosides*), 17.2 MG ORAL QPM, (Reported) Tamsulosin Hcl (Tamsulosin Hcl*), 0.4 MG GT BEDTIME, (Reported) Scheduled PRN Acetaminophen* (Acetaminophen 325MG Tablet*), 650 MG ORAL Q4H PRN for For Pain, (Reported) Acetaminophen* (Acetaminophen 325MG Tablet*), 650 MG ORAL Q4H PRN for FEVER ( TEMP >101F), (Reported) Hydrocodone Bit/Acetaminophen 5-325* ([place] 5-325*), Unknown Dose ORAL Q4H PRN for For Pain, (Reported) Miscellaneous Medications Bisacodyl (Dulcolax), 10 MG RC, (Reported) Calcium Carbonate (Calcium Carbonate), 500 MG PO, (Reported) Chlorhexidine Gluconate (Peridex), 15 ML MM, (Reported) Na Phos,M-B/Na Phos,Di-Ba (Fleet Enema), 133 ML RC, (Reported) Nitroglycerin (Nitroglycerin Patch), 1 EACH TD, (Reported) Patient History Healthcare decision maker Resuscitation status Advanced Directive on File Physical Exam Last 24 Hour Vital Signs Date Time Temp Pulse Resp B/P (MAP) Pulse Ox O2 Delivery O2 Flow Rate FiO2 11/15/18 14:57 81 39 100 Mechanical Ventilator 50 82 40 60 11/15/18 13:20 73 35 50 11/15/18 12:00 83 11/15/18 12:00 60 11/15/18 11:16 79 48 100 Mechanical Ventilator 60 77 45 60 11/15/18 08:58 96/41 11/15/18 08:43 72 40 60 11/15/18 08:00 60 11/15/18 08:00 69 11/15/18 07:56 72 44 100 Mechanical Ventilator 60 70 34 11/15/18 07:00 70 36 87/49 (62) 98 11/15/18 06:50 71 38 60 11/15/18 06:30 71 35 92/58 (69) 100 11/15/18 06:00 72 36 102/55 (71) 100 11/15/18 05:45 92/58 11/15/18 05:20 97.8 73 32 120/107 (111) 95 11/15/18 05:20 Mechanical Ventilator 11/15/18 04:45 101.7 75 43 107/56 100 Mechanical Ventilator 60 11/15/18 04:37 70 43 60 11/15/18 03:30 71 40 60 11/15/18 02:42 101.7 75 35 107/56 100 Mechanical Ventilator 40 11/15/18 02:42 76 35 Mechanical Ventilator 40 11/15/18 02:27 76 35 100 Mechanical Ventilator 40 11/15/18 02:25 76 35 40 11/15/18 02:14 101.7 68 22 107/56 (73) 96 Endotracheal Tube Intake and Output 11/14/18 11/15/18 19:00 07:00 Intake Total 0 ml Balance 0 ml Intake Tube Feeding 0 ml Laboratory Tests Test 11/15/18 02:25 11/15/18 02:43 11/15/18 03:53 11/15/18 07:50 White Blood Count 52.1 K/UL (4.8-10.8) *H 47.2 K/UL (4.8-10.8) *H Red Blood Count 2.83 M/UL (4.70-6.10) L 2.47 M/UL (4.70-6.10) L Hemoglobin 7.5 G/DL (14.2-18.0) L 6.6 G/DL (14.2-18.0) *L Hematocrit 24.0 % (42.0-52.0) L 21.1 % (42.0-52.0) L Mean Corpuscular Volume 85 FL (80-99) 86 FL (80-99) Mean Corpuscular Hemoglobin 26.3 PG (27.0-31.0) L 26.8 PG (27.0-31.0) L Mean Corpuscular Hemoglobin Concent 31.1 G/DL (32.0-36.0) L 31.4 G/DL (32.0-36.0) L Red Cell Distribution Width 16.9 % (11.6-14.8) H 16.6 % (11.6-14.8) H Platelet Count 327 K/UL (150-450) 290 K/UL (150-450) Mean Platelet Volume 6.6 FL (6.5-10.1) 6.9 FL (6.5-10.1) Neutrophils (%) (Auto) % (45.0-75.0) % (45.0-75.0) Lymphocytes (%) (Auto) % (20.0-45.0) % (20.0-45.0) Monocytes (%) (Auto) % (1.0-10.0) % (1.0-10.0) Eosinophils (%) (Auto) % (0.0-3.0) % (0.0-3.0) Basophils (%) (Auto) % (0.0-2.0) % (0.0-2.0) Differential Total Cells Counted 100 100 Neutrophils % (Manual) 83 % (45-75) H 91 % (45-75) H Lymphocytes % (Manual) 8 % (20-45) L 4 % (20-45) L Monocytes % (Manual) 1 % (1-10) 4 % (1-10) Eosinophils % (Manual) 0 % (0-3) 0 % (0-3) Basophils % (Manual) 0 % (0-2) 0 % (0-2) Band Neutrophils 8 % (0-8) 1 % (0-8) Platelet Estimate Adequate Adequate Platelet Morphology Normal Normal Sodium Level 150 MMOL/L (136-145) H 150 MMOL/L (136-145) H Potassium Level 5.2 MMOL/L (3.5-5.1) H 4.7 MMOL/L (3.5-5.1) Chloride Level 112 MMOL/L (98-107) H 113 MMOL/L (98-107) H Carbon Dioxide Level 29 MMOL/L (21-32) 28 MMOL/L (21-32) Anion Gap 9 mmol/L (5-15) 9 mmol/L (5-15) Blood Urea Nitrogen 47 mg/dL (7-18) H 48 mg/dL (7-18) H Creatinine 2.4 MG/DL (0.55-1.30) H 2.5 MG/DL (0.55-1.30) H Estimat Glomerular Filtration Rate mL/min (>60) mL/min (>60) Glucose Level 139 MG/DL (74-106) H 191 MG/DL (74-106) H Lactic Acid Level 5.80 mmol/L (0.4-2.0) H 5.90 mmol/L (0.66-2.22) H 4.10 mmol/L (0.4-2.0) H Calcium Level 8.5 MG/DL (8.5-10.1) 8.0 MG/DL (8.5-10.1) L Phosphorus Level 4.5 MG/DL (2.5-4.9) 3.8 MG/DL (2.5-4.9) Magnesium Level 2.6 MG/DL (1.8-2.4) H 2.4 MG/DL (1.8-2.4) Total Bilirubin 0.5 MG/DL (0.2-1.0) Aspartate Amino Transf (AST/SGOT) 174 U/L (15-37) H Alanine Aminotransferase (ALT/SGPT) 244 U/L (12-78) H Alkaline Phosphatase 147 U/L (46-116) H Total Creatine Kinase 75 U/L (26-308) Creatine Kinase MB 0.6 NG/ML (0.0-3.6) Creatine Kinase MB Relative Index 0.8 Troponin I 0.118 ng/mL (0.000-0.056) 0.222 ng/mL (0.000-0.056) Pro-B-Type Natriuretic Peptide 17771 pg/mL (0-125) H Total Protein 7.1 G/DL (6.4-8.2) Albumin 2.3 G/DL (3.4-5.0) L Globulin 4.8 g/dL Albumin/Globulin Ratio 0.5 (1.0-2.7) L Arterial Blood pH 7.475 (7.350-7.450) Arterial Blood Partial Pressure CO2 35.7 mmHg (35.0-45.0) Arterial Blood Partial Pressure O2 59.4 mmHg (75.0-100.0) L Arterial Blood HCO3 25.7 mmol/L (22.0-26.0) Arterial Blood Oxygen Saturation 89.7 % (95-100) *L Arterial Blood Base Excess 2.1 (-2-2) H Ebenezer Test Positive Other Cell Type See comments Hypochromasia 3+ Anisocytosis 1+ Reticulocyte Count 2.9 % (0.5-2.0) H Prothrombin Time 11.6 SEC (9.30-11.50) H Prothromb Time International Ratio 1.1 (0.9-1.1) Fibrinogen 303 mg/dL (200-400) Iron Level 7 ug/dL (50-175) L Total Iron Binding Capacity 128 ug/dL (250-450) L Percent Iron Saturation 5 % (15-50) L Unsaturated Iron Binding 121 ug/dL (112-346) Ferritin > 2000 NG/ML (8-388) H Folate 59.7 NG/ML (8.6-58.9) H Height (Feet): 5 Height (Inches): 8.00 Weight (Pounds): 162 Medications Current Medications Medications (Trade) Dose Ordered Sig/Ruthie Route PRN Reason Start Time Stop Time Status Last Admin Dose Admin Acetaminophen (Tylenol) 650 mg Q6H PRN NG Mild Pain/Temp > 100.5 11/15/18 05:45 12/15/18 05:44 Acetaminophen/ Hydrocodone Bitart ([place] 5/325) 1 tab Q4H PRN ORAL Moderate Pain (Pain Scale 4-6) 11/15/18 05:45 11/22/18 05:44 Albumin Human 50 ml @ 50 mls/hr ONCE ONCE IV 11/15/18 15:30 11/15/18 16:29 11/15/18 15:38 Albuterol/ Ipratropium (Albuterol/ Ipratropium) 3 ml Q4HRT HHN 11/15/18 07:00 11/20/18 06:59 11/15/18 14:47 Atorvastatin Calcium (Lipitor) 10 mg BEDTIME ORAL 11/15/18 21:00 12/15/18 20:59 Bisacodyl (Dulcolax) 10 mg DAILYPRN PRN RECTAL Constipation 11/15/18 05:45 12/15/18 05:44 Calcium Carbonate (Tums) 500 mg DAILY GT 11/15/18 09:00 12/15/18 08:59 11/15/18 08:59 Chlorhexidine Gluconate (Rachael-Hex 2%) 1 applic DAILY@2000 TOPIC 11/15/18 20:00 12/15/18 19:59 Dextrose (Dextrose 50%) 25 ml Q30M PRN IV Hypoglycemia 11/15/18 05:45 12/15/18 05:44 Dextrose (Dextrose 50%) 50 ml Q30M PRN IV Hypoglycemia 11/15/18 05:45 12/15/18 05:44 Dextrose/Sodium Chloride 1,000 ml @ 100 mls/hr Q10H IV 11/15/18 08:00 12/15/18 07:59 11/15/18 08:58 Doxycycline Hyclate 100 mg/ Dextrose 110 ml @ 110 mls/hr Q12HR IV 11/15/18 09:00 11/22/18 08:59 11/15/18 08:58 Ferrous Sulfate (Feosol) 325 mg DAILY ORAL 11/15/18 09:00 12/15/18 08:59 11/15/18 09:00 Hydromorphone HCl (Dilaudid) 0.5 mg Q4H PRN IVP For Pain 11/15/18 05:45 11/22/18 05:44 Insulin Aspart (NovoLOG) BEFORE MEALS AND HS SUBQ 11/15/18 06:30 12/15/18 06:29 Lorazepam (Ativan 2mg/ml 1ml) 0.5 mg Q4H PRN IV For Anxiety 11/15/18 05:45 11/22/18 05:44 Norepinephrine Bitartrate 4 mg/ Dextrose 250 ml @ 0 mls/hr Q24H IV 11/15/18 05:45 12/15/18 05:44 11/15/18 08:58 Olanzapine (ZyPREXA Zydis) 7.5 mg DAILY GT 11/15/18 09:00 12/15/18 08:59 11/15/18 11:19 Pantoprazole (Protonix) 40 mg EVERY 12 HOURS IVP 11/15/18 09:00 12/15/18 08:59 11/15/18 08:58 Piperacillin Sod/ Tazobactam Sod 3.375 gm/Sodium Chloride 110 ml @ 27.5 mls/hr Q8H IVPB 11/15/18 12:00 11/22/18 11:59 11/15/18 15:38 Quetiapine Fumarate (SEROquel) 50 mg DAILY GT 11/15/18 09:00 12/15/18 08:59 11/15/18 09:00 Tamsulosin HCl (Flomax) 0.4 mg BEDTIME ORAL 11/15/18 21:00 12/15/18 20:59 Vancomycin HCl (Vanco rx to dose) 1 ea DAILY PRN MISC Per rx protocol 11/15/18 05:45 12/15/18 05:44 Vancomycin HCl 1 gm/Dextrose 275 ml @ 183.708 mls/hr Q48H IVPB 11/17/18 03:00 11/22/18 02:59 Assessment/Plan Assessment/Plan: HEMATOLOGY-ONCOLOGY CONSULTATION REFERRING PHYSICIAN: Trish Tripathi MD DATE OF CONSULTATION: 11/15/2018 REASON FOR CONSULTATION: Evaluation of anemia, leukocytosis, and ftt HPI: 88 y old male sent in for elevated fevers, i have seen him on a prior visit in 2018, well known to me. Also he was unresponsive for them. with ams. ROS limited, patient unresponsive intubated in ICU. S/P PEG 2018 ere at [facility]. GT site C/D/I with no leakage or erythema around the site. Patient has abdominal distention, tympanic in the lower quadrants. Labs reviewed; leukocytosis, no anemia, transaminitis. Hematology services consulted for further evaluation of leukocytosis, anemia, and ftt. Patient History Limited by: medical condition History Provided By: Medical Record Social History: Denies: smoking, alcohol use, drug use, other Review of Systems All Other Systems: limited Physical Exam Vitals: General Appearance: no apparent distress Head: normocephalic EENT: normal ENT inspection Neck: supple Respiratory: other - intubated Cardiovascular: normal rate Gastrointestinal: gt - c/d/i Rectal: deferred Genitourinary: no CVA tenderness Skin: normal color +++ decub Labs: noted Imaging: noted ASSESSMENT AND RECOMMENDATIONS # Leukocytosis. Likely related to underlying infection with sepsis and elevated severely on admission --> Imaging has been reviewed. Shows cxr left lung inil/v edema --> Blood cs and urine cx are pending --> Has been started on abx, empiric tx --> PERIPHERAL SMEAR SHOWS ATYPICAL LYMPHOCYTES --> Flow cytometry ordered with pathologist # Anemia of chronic disease (or of iron deficiency) due to underlying chronic medical issues, multifactorial. --> Anemia w/u has been ordered. --> No evidence of hemolysis noted, peripheral smear has been reviewed --> Hgb goal >7. Transfuse as needed --> hgb trend 7.5-->6.6 --> 2 units transfuse on 11/15 # Failure to thrive (FTT) - decreased bmi and low protein --> have ordered for cea level --> will obtain q3 day caloric counts --> consider mirtazapine as appetite stimulant --> GI consult on a prn basis, as needed for endosc # Sepsis. # PEG. # Malnutrition. The timing of this note does not necessarily reflect the time of the patient was seen. Greatly appreciate consultation. Beny Dalton MD Nov 15, 2018 16:24
--- NOTE | 2018-11-15 17:00 | Consultation ---
DATE OF CONSULTATION: 11/15/2018 CARDIOLOGY CONSULTATION CONSULTING PHYSICIAN: Luke Prather M.D. REFERRING PHYSICIAN: Trish Matias M.D. REASON FOR CONSULTATION: Septic shock. HISTORY OF PRESENT ILLNESS: The patient is an 88-year-old gentleman who was brought in from custodial with fever. The patient has dementia, hypertension, diabetes, congestive heart failure, chronically vent dependent, and tracheostomy. The patient also dysphagia status post PEG placement and nonverbal. The patient's white count was found to be more than 50,000 and lactic acid of more than 5. Troponin was also elevated. BNP was 17,000. The patient was admitted to intensive care unit and currently on Levophed. The patient's hemoglobin was also only 6. REVIEW OF SYSTEMS: Cannot be obtained. PAST MEDICAL HISTORY: As mentioned above. FAMILY HISTORY: Noncontributory. PHYSICAL EXAMINATION: VITAL SIGNS: Show blood pressure of 96/41 on Levophed, respirations 40, pulse is 72, his temperature is 102. HEAD AND NECK: Shows status post tracheostomy. LUNGS: Coarse rhonchi. CARDIOVASCULAR: Irregular irregular S1 and S2 with no gallop. ABDOMEN: Status post G-tube, distended. EXTREMITIES: Reveal 1+ edema. DIAGNOSTIC DATA: EKG shows sinus rhythm with nonspecific ST-T wave abnormality. LABORATORY DATA: Labs show white count 52.1, hemoglobin today is 6.6, and platelet count of 290. Sodium 150, potassium 4.7, BUN of 48, creatinine 2.5, and glucose of 191. Troponin is 1.11. BNP 27965. ASSESSMENT AND PLAN: 1. Septic shock with white count of 50,000 and lactic acid of 6. The patient is on IV antibiotic and IV fluid as well as Levophed. We will get an echocardiogram to make sure there is no source of any vegetation. The patient will also need IV fluid in view of sodium 150 as well as blood transfusion in view of hemoglobin of only 6. 2. Congestive heart failure with BNP of more than 17,000. The patient has septic shock, endocarditis, and maintaining his blood pressure. The patient is already on the ventilator via tracheostomy anyway. 3. Troponin elevation, likely due to renal failure and anemia and septic shock. The levels are flat. EKG does not show any ST elevation. 4. Acute renal failure. BUN of 48, creatinine of 2.5. 5. Hypernatremia. Sodium of 150. 6. Ventilator-dependent respiratory failure, status post tracheostomy. 7. Dysphagia, status post PEG placement. 8. Profound anemia, hemoglobin of 6.5, rule out GI bleed. The patient is getting blood transfusion. Thank you very much, Dr. Matias, for allowing me to participate in the care of this critically ill patient. Please do not hesitate to contact me for any questions regarding my evaluation. The case was discussed with the ICU nurses as well as with primary care doctor and Dr. Anam Cruz at the bedside. The critical care time spent was more than 55 minutes. Luke Prather M.D. DR: NANCY JOB#: [id number] CC:
--- NOTE | 2018-11-15 19:00 | Consultation ---
DATE OF CONSULTATION: 11/15/2018 INFECTIOUS DISEASES CONSULTATION CONSULTING PHYSICIAN: Anam Cruz M.D. PRIMARY ATTENDING PHYSICIAN: Trish Matias M.D. REASON FOR CONSULTATION: Septic shock, leukemoid reaction. HISTORY OF PRESENT ILLNESS: This is an 88-year-old man admitted early this morning from nursing facility because of fever. According to the ER doctor had fever of 102 in retirement. In hospital, had fever of 101.7. He is on ventilator and not a source of history. He had decrease in O2 saturation, tachycardia, respiratory rate up to 44, had leukocytosis of 52.1, decreasing O2 saturation, had hypotension, started on pressor and transferred to ICU. PAST MEDICAL HISTORY: Significant for diabetes mellitus, congestive heart failure, ventilator-dependent respiratory failure, dementia, prostatic hypertrophy. ALLERGIES: Allergic to terazosin. MEDICATIONS: Vancomycin, atorvastatin, Flomax, Zosyn, Protonix, doxycycline, heparin, calcium carbonate, ferrous sulfate, olanzapine, Albuterol/ipratropium inhaler, insulin, Tylenol, lorazepam, hydromorphone, norepinephrine. SOCIAL HISTORY: [facility] resident. No history of alcohol, drug abuse, smoking. . No other history obtainable. PHYSICAL EXAMINATION: VITAL SIGNS: T-max 101.7, current temperature 97.8, pulse 72, respiratory rate 40, blood pressure 96/41. HEAD AND NECK: Status post tracheostomy. Pale conjunctiva. HEART: Normal rate. The patient have a PICC line right upper extremity that was in place before admission likely was placed in [facility] in October 2018. LUNGS: Have bilateral rhonchi and rales, is tachypneic on ventilator. ABDOMEN: Soft, distended. There is G-tube in place. GENITOURINARY: No Turner catheter. An attempt for placement of Turner catheter was failed in the ER. EXTREMITIES: No edema. LABORATORY AND DIAGNOSTIC DATA: WBC 47.2, hemoglobin 6.6, hematocrit 29.1, platelet count 290. Sodium 150, potassium 4.7,, bicarb 18, BUN 48, creatinine 2.5, glucose 191. Lactic acid is 4.1 coming down from 5.9. Blood gas showed hypoxemia with pO2 59.4, O2 saturation 89.7. There is no x-ray and UA available. IMPRESSION: Sepsis with septic shock. The patient has old central line, also has BPH, ventilator-dependent respiratory failure, may have line sepsis, UTI, or pneumonia, has leukemoid reaction, has acute renal failure, has diabetes mellitus, anemia, hypoxemic respiratory failure, CHF by history, dementia. RECOMMENDATION: Continue with current medication doxycycline, vancomycin and Zosyn. Follow up the cultures. We will follow up UA. We will follow up chest x-ray. At the end of my exam, I thank Dr. Matias for involving me in the care of this patient. Anam Cruz M.D. DR: Aaron JOB#: [id number] CC: CASSANDRA
[2018-11-15] MEDS: Dyna-Hex 2% Top Sol 2oz TOPIC SCH (20:00)
[2018-11-15] MEDS: Tamsulosin 0.4mg cap ORAL SCH (20:42)
[2018-11-15] MEDS: LORazepam Inj 2mg/ml 1ml IV PRN (20:42)
[2018-11-16] VITALS (26 sets, daily range): BP systolic 102–155; BP diastolic 44–98
[2018-11-16] MEDS: LORazepam Inj 2mg/ml 1ml IV PRN (01:26)
[2018-11-16] MEDS: Albuterol/Ipratropium 3ml neb HHN SCH ×6 (02:47→23:58)
[2018-11-16 03:40] LABS: APPEARANCE,URINE SLIGHTLY CLOUDY; BILIRUBIN, URINE NEGATIVE (NEGATIVE); GLUCOSE, URINE (UA) NEGATIVE (NEGATIVE); KETONES,URINE NEGATIVE (NEGATIVE); LEUKOCYTE ESTERASE ,URINE 3+ (NEGATIVE); NITRITE,URINE NEGATIVE (NEGATIVE); PH,URINE 5 (4.5-8.0); PROTEIN,URINE 3+ (NEGATIVE); UROBILINOGEN,URINE NORMAL MG/DL (0.0-1.0)
[2018-11-16] MEDS: D5 1/2NS 1,000 ML IV SCH ×3 (03:55→23:24)
[2018-11-16] MEDS: Piperacillin/Tazobactam 3.375 GM in NS 110 ML IVPB SCH ×3 (03:55→19:31)
[2018-11-16 04:40] LABS: COLOR,URINE YELLOW
--- NOTE | 2018-11-16 05:15 | History and Physical Report ---
DATE OF ADMISSION: 11/15/2018 HISTORY OF PRESENT ILLNESS: The patient is nonverbal, status post trach and PEG, and is admitted to ICU because of septic shock, hypotensive, severe leukocytosis, lactic acidosis, hypernatremia, dehydration, acute renal failure, elevated LFTs, and severe anemia. Admitted to ICU for those reasons. The patient has a history of encephalopathy, nonverbal, and cannot get any history. PAST MEDICAL HISTORY: Chronic renal insufficiency; constipation; iron deficiency anemia; NIDDM; psychosis; GERD; BPH; history of encephalopathy; history of ventilator dependence; history of CHF, leg edema, and hypertension; hyperlipidemia; and organic brain syndrome. PAST SURGICAL HISTORY: Trach and PEG. ALLERGIES: Terazosin. MEDICATIONS: Aspirin, Lipitor, bisacodyl, clonidine, donepezil, iron, olanzapine, Senokot, and Flomax. REVIEW OF SYSTEMS: Unable to obtain. FAMILY HISTORY: Unable to obtain. SOCIAL HISTORY: Unable to obtain. PHYSICAL EXAMINATION: VITAL SIGNS: Temperature is 100, pulse is 89, and blood pressure 130/43. HEENT: PERRLA. NECK: Supple. Trach site is intact. CHEST: Bibasilar rales. CARDIOVASCULAR: Regular rate and rhythm. ABDOMEN: Soft and distended. Positive bowel sounds. No organomegaly. EXTREMITIES: 2+ pitting edema. NEUROLOGIC: Does not follow neurological exam. Generalized weakness and oriented x0. LABORATORY DATA: WBC of 62, hemoglobin 7.5, and platelets of 327,000. ASSESSMENT AND PLAN: Septic shock, needs IV fluids; lactic acidosis due to sepsis; elevated LFTs; and anemia. I have asked Dr. Fernandes, Dr. Prather, Dr. Beny Dalton, Dr. Anam Cruz, and Dr. Baumann to see the patient to help in the management of the above-mentioned diagnoses. Trish Matias M.D. DR: ELBERT JOB#: [id number] CC:
[2018-11-16 05:26] LABS: HEMATOCRIT 27.8 % (42.0-52.0); HEMOGLOBIN 9.1 G/DL (14.2-18.0); MEAN CORPUSCULAR VOLUME 85 FL (80-99); PLATELET COUNT 232 K/UL (150-450); RED BLOOD COUNT 3.29 M/UL (4.70-6.10); RED CELL DISTRIBUTION WIDTH 15.2 % (11.6-14.8)
[2018-11-16 05:39] LABS: WHITE BLOOD COUNT 29.1 K/UL (4.8-10.8)
[2018-11-16 05:56] LABS: AMMONIA 37 umol/L (11-32)
[2018-11-16] MEDS: NovoLOG Insulin Flexpen SUBQ SCH ×4 (06:01→20:33)
[2018-11-16 06:02] LABS: PHOSPHORUS 2.9 MG/DL (2.5-4.9)
[2018-11-16 06:05] LABS: CREATINE KINASE 84 U/L (26-308); GAMMA GLUTAMYL TRANSPEPTIDASE 224 U/L (5-85)
[2018-11-16 06:10] LABS: ALANINE AMINOTRANSFERASE 211 U/L (12-78); ALBUMIN 2.3 G/DL (3.4-5.0); ALBUMIN/GLOBULIN RATIO 0.5 (1.0-2.7); ALKALINE PHOSPHATASE 138 U/L (46-116); ANION GAP 7 mmol/L (5-15); ASPARTATE AMINO TRANSFERASE 119 U/L (15-37); BILIRUBIN,TOTAL 0.6 MG/DL (0.2-1.0); BLOOD UREA NITROGEN 40 mg/dL (7-18); CARBON DIOXIDE 28 MMOL/L (21-32); CHLORIDE 115 MMOL/L (98-107); CREATININE 1.8 MG/DL (0.55-1.30); POTASSIUM 3.6 MMOL/L (3.5-5.1); SODIUM 150 MMOL/L (136-145)
--- NOTE | 2018-11-16 07:59 | Pulmonolgy Critical Care Note ---
Critical Care - Asmt/Plan Assessment/Plan: Pulmonary Critical Care Progress Note HPI Patient is an 88-year-old male admitted from [facility] with fever, Pneumonia. Patient had prior history of Dementia, BPH, Diabetes, Hypertension as well as CHF. Patient is chronically ventilator dependent. History is limited by patient's mental status - non verbal on ventilator Allergies: TERAZOSIN Past Medical History: Dementia, Organic Brain Syndrome, BPH, Diabetes, Hypertension, CHF, G tube All Other Systems: limited - Review of systems Physical Exam Vital Signs Noted General Appearance: Chronically Ill Eyes: PERRL Neck: dry mm Respiratory: occasional rhonchi Heart: HS1, HS2, RRR Gastrointestinal: no pulsatile mass, Gtube CDI Musculoskeletal: decreased range of motion, weak, wasted, congtracted Neurologic: Reduced LOC, contracted, orthotics in place Impression: Pneumonia Ventilator dependant respiratory failure Severe sepsis - Lactate now normalized NSTEMI Anemia Possible GI bleed Dysphagia s/p G tube Chronic wounds Dementia Organic Brain Syndrome Diabetes Chronic renal disease Prostate enlargement Penile wound CHF H/o Hypertension Low Albumin c/w Protein Calorie Malnutrition, chronic illness Plan IV antibiotics: Zosyn, Vanco per Pharmacy, Doxycycline IVF PRN 25% Albumin PRN Levophed PRN for MAP >65 HHN Q4 Continue current AC ventilator sttings Adjust FIO2 for sats 90-96% Stool OB pending Transfuse PRN Sputum c+s Stool cdiff Await cultures Abdominal US noted LE dupplex negative Monitor labs, Troponin, Lactate PPX - SCD, 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 PRN sedation, analgesia Gtube feeds Aspiration precautions Full Code Labs Noted CXR: Bilateral patchy infiltrates Critical Care - Objective Last 24 Hour Vital Signs Date Time Temp Pulse Resp B/P (MAP) Pulse Ox O2 Delivery O2 Flow Rate FiO2 11/16/18 07:16 79 31 100 Mechanical Ventilator 40 80 24 40 11/16/18 07:00 81 22 123/54 (77) 100 11/16/18 06:00 81 33 115/52 (73) 100 11/16/18 05:20 82 27 40 11/16/18 05:00 79 29 111/47 (68) 100 11/16/18 04:00 40 11/16/18 04:00 Mechanical Ventilator 11/16/18 04:00 98.4 79 26 112/49 (70) 100 11/16/18 03:34 81 11/16/18 03:00 77 23 113/49 (70) 100 11/16/18 02:48 76 30 100 Mechanical Ventilator 40 78 28 40 11/16/18 02:00 84 30 121/58 (79) 100 11/16/18 01:00 81 28 143/51 (81) 100 11/16/18 00:55 82 28 40 11/16/18 00:00 40 11/16/18 00:00 99.3 81 33 108/45 (66) 100 11/16/18 00:00 Mechanical Ventilator 11/15/18 23:34 85 11/15/18 23:16 79 36 100 Mechanical Ventilator 40 80 32 40 11/15/18 23:00 79 30 111/52 (71) 100 11/15/18 22:00 84 35 109/45 (66) 100 11/15/18 21:03 108 38 40 11/15/18 21:00 94 31 129/72 (91) 100 11/15/18 20:00 Mechanical Ventilator 11/15/18 20:00 89 11/15/18 20:00 40 11/15/18 20:00 100.0 89 27 130/43 (72) 100 11/15/18 19:28 82 36 100 Mechanical Ventilator 40 88 34 40 11/15/18 19:00 79 35 108/59 (75) 100 11/15/18 19:00 108/59 11/15/18 18:00 79 37 115/50 (71) 100 11/15/18 17:00 112/47 11/15/18 17:00 80 33 112/47 (68) 100 11/15/18 16:32 88 43 50 11/15/18 16:30 88 33 108/46 (66) 97 11/15/18 16:00 Mechanical Ventilator 11/15/18 16:00 83 11/15/18 16:00 50 11/15/18 16:00 99.0 83 29 122/40 (67) 100 11/15/18 16:00 122/40 11/15/18 15:30 82 32 150/86 (107) 100 11/15/18 15:15 83 31 123/70 (87) 100 11/15/18 15:00 83 33 123/70 (87) 100 11/15/18 15:00 112/47 11/15/18 14:57 81 39 100 Mechanical Ventilator 50 82 40 60 11/15/18 14:45 82 33 123/70 (87) 100 11/15/18 14:30 83 29 129/50 (76) 96 11/15/18 14:15 82 30 129/50 (76) 96 11/15/18 14:00 143/125 11/15/18 14:00 79 30 143/125 (131) 97 11/15/18 13:30 50 11/15/18 13:30 74 32 122/53 (76) 100 11/15/18 13:20 73 35 50 11/15/18 13:15 74 32 122/53 (76) 100 11/15/18 13:00 75 34 119/56 (77) 100 11/15/18 13:00 119/56 11/15/18 12:30 76 32 115/51 (72) 100 11/15/18 12:00 99.0 75 30 114/53 (73) 100 11/15/18 12:00 83 11/15/18 12:00 114/53 11/15/18 12:00 60 11/15/18 12:00 Mechanical Ventilator 11/15/18 11:30 78 33 127/73 (91) 100 11/15/18 11:16 79 48 100 Mechanical Ventilator 60 77 45 60 11/15/18 11:00 79 30 127/69 (88) 100 11/15/18 11:00 127/69 11/15/18 10:45 79 35 127/69 (88) 100 11/15/18 10:30 78 36 119/62 (81) 100 11/15/18 10:15 76 39 119/62 (81) 100 11/15/18 10:00 78 32 131/59 (83) 100 11/15/18 10:00 131/59 11/15/18 09:45 80 30 131/59 (83) 100 11/15/18 09:30 77 33 119/85 (96) 100 11/15/18 09:15 74 32 119/85 (96) 100 11/15/18 09:00 70 34 103/44 (63) 100 11/15/18 08:58 96/41 11/15/18 08:43 72 40 60 11/15/18 08:00 60 11/15/18 08:00 69 11/15/18 08:00 Mechanical Ventilator 11/15/18 08:00 98.7 68 36 91/40 (57) 100 Micro: Microbiology Date/Time Source Procedure Growth Status 11/15/18 02:25 Blood Blood Culture - Preliminary NO GROWTH AFTER 24 HOURS Resulted 11/15/18 02:15 Blood Blood Culture - Preliminary NO GROWTH AFTER 24 HOURS Resulted Accucheck: 167 Critical Care - Subjective ROS Limited/Unobtainable: No FI02: 40 Vent Support Breath Rate: 22 Vent Support Mode: AC Vent Tidal Volume: 400 Sputum Amount: Moderate PEEP: 5.0 PIP: 29 Tube Feeding Amount: 45 I&O: Intake and Output 11/15/18 11/16/18 18:59 06:59 Intake Total 1873.0 ml 2402.0 ml Output Total 1 ml 3 ml Balance 1872.0 ml 2399.0 ml Intake Free Water 260 ml IV Total 1298.0 ml 1517.0 ml Tube Feeding 75 ml 365 ml Blood Product 500 ml Other 260 ml Output Urine Total 1 ml 3 ml # Bowel Movements 2 Booker Baumann MD Nov 16, 2018 07:59
[2018-11-16] MEDS: ZyPREXA Zydis 5mg tab GT SCH (08:44)
[2018-11-16] MEDS: Tums 500mg GT SCH (08:44)
[2018-11-16] MEDS: Doxycycline Hyclate 100 MG in D5W 110 ML IV SCH ×2 (08:44→20:32)
[2018-11-16] MEDS: Pantoprazole Inj IVP SCH ×2 (08:45→20:32)
[2018-11-16 08:57] LABS: PHOSPHORUS 3.1 MG/DL (2.5-4.9)
[2018-11-16] MEDS: Vancomycin 750mg/NS 275ml IVPB SCH ×2 (11:23)
--- NOTE | 2018-11-16 12:45 | GI Progress Note ---
Assessment/Plan Status: unchanged Status Narrative Discussed with Dr. Coronel. Assessment/Plan OB stool positive Defer all GI procedures at this time, patient in septic shock. Maintain n.p.o. plus IV fluids add additional OB stool monitor H&H, prn transfusions as necessary to maintain hemoglobin above 7 bowel regimen ppi BID Hold iron supplementation given elevated ferritin levels abx fu labs, hepatitis panel The patient was seen and examined at bedside and all new and available data was reviewed in the patients chart. I agree with the above findings, impression and plan. (Patient seen earlier today. Signature stamp does not reflect patient encounter time.). - Juan Coronel MD Subjective Subjective limited Objective Last 24 Hour Vital Signs Date Time Temp Pulse Resp B/P (MAP) Pulse Ox O2 Delivery O2 Flow Rate FiO2 11/16/18 12:30 74 29 105/46 (65) 100 11/16/18 12:00 Mechanical Ventilator 11/16/18 12:00 98.0 79 30 109/51 (70) 100 11/16/18 12:00 40 11/16/18 11:22 76 29 100 Mechanical Ventilator 40 89 32 40 11/16/18 11:00 75 28 108/52 (70) 100 11/16/18 10:00 84 31 118/52 (74) 100 11/16/18 09:00 76 30 102/44 (63) 100 11/16/18 08:45 91 35 40 11/16/18 08:00 40 11/16/18 08:00 98.2 75 23 104/46 (65) 100 11/16/18 08:00 Mechanical Ventilator 11/16/18 08:00 85 11/16/18 07:16 79 31 100 Mechanical Ventilator 40 80 24 40 11/16/18 07:00 81 22 123/54 (77) 100 11/16/18 06:00 81 33 115/52 (73) 100 11/16/18 05:20 82 27 40 11/16/18 05:00 79 29 111/47 (68) 100 11/16/18 04:00 40 11/16/18 04:00 Mechanical Ventilator 11/16/18 04:00 98.4 79 26 112/49 (70) 100 11/16/18 03:34 81 11/16/18 03:00 77 23 113/49 (70) 100 11/16/18 02:48 76 30 100 Mechanical Ventilator 40 78 28 40 11/16/18 02:00 84 30 121/58 (79) 100 11/16/18 01:00 81 28 143/51 (81) 100 11/16/18 00:55 82 28 40 11/16/18 00:00 40 11/16/18 00:00 99.3 81 33 108/45 (66) 100 11/16/18 00:00 Mechanical Ventilator 11/15/18 23:34 85 11/15/18 23:16 79 36 100 Mechanical Ventilator 40 80 32 40 11/15/18 23:00 79 30 111/52 (71) 100 11/15/18 22:00 84 35 109/45 (66) 100 11/15/18 21:03 108 38 40 11/15/18 21:00 94 31 129/72 (91) 100 11/15/18 20:00 Mechanical Ventilator 11/15/18 20:00 89 11/15/18 20:00 40 11/15/18 20:00 100.0 89 27 130/43 (72) 100 11/15/18 19:28 82 36 100 Mechanical Ventilator 40 88 34 40 11/15/18 19:00 79 35 108/59 (75) 100 11/15/18 19:00 108/59 11/15/18 18:00 79 37 115/50 (71) 100 11/15/18 17:00 112/47 11/15/18 17:00 80 33 112/47 (68) 100 11/15/18 16:32 88 43 50 11/15/18 16:30 88 33 108/46 (66) 97 11/15/18 16:00 Mechanical Ventilator 11/15/18 16:00 83 11/15/18 16:00 50 11/15/18 16:00 99.0 83 29 122/40 (67) 100 11/15/18 16:00 122/40 11/15/18 15:30 82 32 150/86 (107) 100 11/15/18 15:15 83 31 123/70 (87) 100 11/15/18 15:00 83 33 123/70 (87) 100 11/15/18 15:00 112/47 11/15/18 14:57 81 39 100 Mechanical Ventilator 50 82 40 60 11/15/18 14:45 82 33 123/70 (87) 100 11/15/18 14:30 83 29 129/50 (76) 96 11/15/18 14:15 82 30 129/50 (76) 96 11/15/18 14:00 143/125 11/15/18 14:00 79 30 143/125 (131) 97 11/15/18 13:30 50 11/15/18 13:30 74 32 122/53 (76) 100 11/15/18 13:20 73 35 50 11/15/18 13:15 74 32 122/53 (76) 100 11/15/18 13:00 75 34 119/56 (77) 100 11/15/18 13:00 119/56 Intake and Output 11/15/18 11/16/18 18:59 06:59 Intake Total 1873.0 ml 2402.0 ml Output Total 1 ml 3 ml Balance 1872.0 ml 2399.0 ml Intake Free Water 260 ml IV Total 1298.0 ml 1517.0 ml Tube Feeding 75 ml 365 ml Blood Product 500 ml Other 260 ml Output Urine Total 1 ml 3 ml # Bowel Movements 2 Laboratory Tests Test 11/15/18 16:50 11/15/18 20:30 11/16/18 02:20 11/16/18 04:30 Lactic Acid Level 2.80 mmol/L (0.4-2.0) H 1.90 mmol/L (0.4-2.0) 1.00 mmol/L (0.4-2.0) Troponin I 0.294 ng/mL (0.000-0.056) 0.255 ng/mL (0.000-0.056) Carcinoembryonic Antigen 4.3 ng/mL (0.0-4.7) Urine Color Yellow Urine Appearance Slightly cloudy Urine pH 5 (4.5-8.0) Urine Specific [place] 1.015 (1.005-1.035) Urine Protein 3+ (NEGATIVE) H Urine Glucose (UA) Negative (NEGATIVE) Urine Ketones Negative (NEGATIVE) Urine Blood 2+ (NEGATIVE) H Urine Nitrite Negative (NEGATIVE) Urine Bilirubin Negative (NEGATIVE) Urine Ictotest Negative (NEGATIVE) Urine Urobilinogen Normal MG/DL (0.0-1.0) Urine Leukocyte Esterase 3+ (NEGATIVE) H Urine RBC 5-10 /HPF (0 - 0) H Urine WBC 60-80 /HPF (0 - 0) H Urine Squamous Epithelial Cells Moderate /LPF (NONE/OCC) H Urine Bacteria Moderate /HPF (NONE) H Stool Occult Blood Positive (NEGATIVE) White Blood Count 29.1 K/UL (4.8-10.8) *H Red Blood Count 3.29 M/UL (4.70-6.10) L Hemoglobin 9.1 G/DL (14.2-18.0) #L Hematocrit 27.8 % (42.0-52.0) #L Mean Corpuscular Volume 85 FL (80-99) Mean Corpuscular Hemoglobin 27.8 PG (27.0-31.0) Mean Corpuscular Hemoglobin Concent 32.8 G/DL (32.0-36.0) Red Cell Distribution Width 15.2 % (11.6-14.8) H Platelet Count 232 K/UL (150-450) Mean Platelet Volume 7.4 FL (6.5-10.1) Neutrophils (%) (Auto) % (45.0-75.0) Lymphocytes (%) (Auto) % (20.0-45.0) Monocytes (%) (Auto) % (1.0-10.0) Eosinophils (%) (Auto) % (0.0-3.0) Basophils (%) (Auto) % (0.0-2.0) Differential Total Cells Counted 100 Neutrophils % (Manual) 92 % (45-75) H Lymphocytes % (Manual) 4 % (20-45) L Monocytes % (Manual) 1 % (1-10) Eosinophils % (Manual) 1 % (0-3) Basophils % (Manual) 1 % (0-2) Band Neutrophils 1 % (0-8) Platelet Estimate Adequate Platelet Morphology Normal Hypochromasia 2+ Anisocytosis 1+ Spherocytes 1+ Sodium Level 150 MMOL/L (136-145) H Potassium Level 3.6 MMOL/L (3.5-5.1) Chloride Level 115 MMOL/L (98-107) H Carbon Dioxide Level 28 MMOL/L (21-32) Anion Gap 7 mmol/L (5-15) Blood Urea Nitrogen 40 mg/dL (7-18) H Creatinine 1.8 MG/DL (0.55-1.30) H Estimat Glomerular Filtration Rate mL/min (>60) Glucose Level 169 MG/DL (74-106) H Hemoglobin A1c 5.3 % (4.3-6.0) Uric Acid 5.4 MG/DL (2.6-7.2) Calcium Level 8.0 MG/DL (8.5-10.1) L Phosphorus Level 3.1 MG/DL (2.5-4.9) Magnesium Level 2.3 MG/DL (1.8-2.4) Total Bilirubin 0.6 MG/DL (0.2-1.0) Gamma Glutamyl Transpeptidase 224 U/L (5-85) H Aspartate Amino Transf (AST/SGOT) 119 U/L (15-37) H Alanine Aminotransferase (ALT/SGPT) 211 U/L (12-78) H Alkaline Phosphatase 138 U/L (46-116) H Ammonia 37 umol/L (11-32) H Total Creatine Kinase 84 U/L (26-308) C-Reactive Protein, Quantitative 27.5 mg/dL (0.00-0.90) H Pro-B-Type Natriuretic Peptide 8616 pg/mL (0-125) H Total Protein 6.7 G/DL (6.4-8.2) Albumin 2.3 G/DL (3.4-5.0) L Globulin 4.4 g/dL Albumin/Globulin Ratio 0.5 (1.0-2.7) L Lipase 82 U/L (73-393) Vitamin B12 Level > 2000 PG/ML (193-986) H Cortisol AM Sample Pending Height (Feet): 5 Height (Inches): 8.00 Weight (Pounds): 156 General Appearance: no apparent distress Cardiovascular: normal rate Respiratory/Chest: normal breath sounds, no respiratory distress Abdominal Exam: normal bowel sounds, non tender, soft Extremities: non-tender Kishan Hopkins NP Nov 16, 2018 12:45
--- NOTE | 2018-11-16 12:56 | Infectious Diseases Prog Note ---
Assessment/Plan Assessment/Plan IMPRESSION: Sepsis with septic shock. Pyuria/ UTI Pneumonia BPH, ventilator-dependent respiratory failure leukemoid reaction, Acute renal failure, Diabetes mellitus, anemia, hypoxemic respiratory failure, dementia. Hepatomegaly/ Cirrhosis RECOMMENDATION: Continue with current medication doxycycline, vancomycin and Zosyn. 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 Subjective ROS Limited/Unobtainable: Yes Constitutional: Denies: fever Cardiovascular: Reports: other - off of Levophed Genitourinary: Reports: other - can not put Turner catheter Allergies: Coded Allergies: TERAZOSIN (Verified Allergy, Unknown, 10/27/17) Objective Vital Signs Last 24 Hour Vital Signs Date Time Temp Pulse Resp B/P (MAP) Pulse Ox O2 Delivery O2 Flow Rate FiO2 11/16/18 12:30 74 29 105/46 (65) 100 11/16/18 12:00 Mechanical Ventilator 11/16/18 12:00 98.0 79 30 109/51 (70) 100 11/16/18 12:00 40 11/16/18 11:22 76 29 100 Mechanical Ventilator 40 89 32 40 11/16/18 11:00 75 28 108/52 (70) 100 11/16/18 10:00 84 31 118/52 (74) 100 11/16/18 09:00 76 30 102/44 (63) 100 11/16/18 08:45 91 35 40 11/16/18 08:00 40 11/16/18 08:00 98.2 75 23 104/46 (65) 100 11/16/18 08:00 Mechanical Ventilator 11/16/18 08:00 85 11/16/18 07:16 79 31 100 Mechanical Ventilator 40 80 24 40 11/16/18 07:00 81 22 123/54 (77) 100 11/16/18 06:00 81 33 115/52 (73) 100 11/16/18 05:20 82 27 40 11/16/18 05:00 79 29 111/47 (68) 100 11/16/18 04:00 40 11/16/18 04:00 Mechanical Ventilator 11/16/18 04:00 98.4 79 26 112/49 (70) 100 11/16/18 03:34 81 11/16/18 03:00 77 23 113/49 (70) 100 11/16/18 02:48 76 30 100 Mechanical Ventilator 40 78 28 40 11/16/18 02:00 84 30 121/58 (79) 100 11/16/18 01:00 81 28 143/51 (81) 100 11/16/18 00:55 82 28 40 11/16/18 00:00 40 11/16/18 00:00 99.3 81 33 108/45 (66) 100 11/16/18 00:00 Mechanical Ventilator 11/15/18 23:34 85 11/15/18 23:16 79 36 100 Mechanical Ventilator 40 80 32 40 11/15/18 23:00 79 30 111/52 (71) 100 11/15/18 22:00 84 35 109/45 (66) 100 11/15/18 21:03 108 38 40 11/15/18 21:00 94 31 129/72 (91) 100 11/15/18 20:00 Mechanical Ventilator 11/15/18 20:00 89 11/15/18 20:00 40 11/15/18 20:00 100.0 89 27 130/43 (72) 100 11/15/18 19:28 82 36 100 Mechanical Ventilator 40 88 34 40 11/15/18 19:00 79 35 108/59 (75) 100 11/15/18 19:00 108/59 11/15/18 18:00 79 37 115/50 (71) 100 11/15/18 17:00 112/47 11/15/18 17:00 80 33 112/47 (68) 100 11/15/18 16:32 88 43 50 11/15/18 16:30 88 33 108/46 (66) 97 11/15/18 16:00 Mechanical Ventilator 11/15/18 16:00 83 11/15/18 16:00 50 11/15/18 16:00 99.0 83 29 122/40 (67) 100 11/15/18 16:00 122/40 11/15/18 15:30 82 32 150/86 (107) 100 11/15/18 15:15 83 31 123/70 (87) 100 11/15/18 15:00 83 33 123/70 (87) 100 11/15/18 15:00 112/47 11/15/18 14:57 81 39 100 Mechanical Ventilator 50 82 40 60 11/15/18 14:45 82 33 123/70 (87) 100 11/15/18 14:30 83 29 129/50 (76) 96 11/15/18 14:15 82 30 129/50 (76) 96 11/15/18 14:00 143/125 11/15/18 14:00 79 30 143/125 (131) 97 11/15/18 13:30 50 11/15/18 13:30 74 32 122/53 (76) 100 11/15/18 13:20 73 35 50 11/15/18 13:15 74 32 122/53 (76) 100 11/15/18 13:00 75 34 119/56 (77) 100 11/15/18 13:00 119/56 Height (Feet): 5 Height (Inches): 8.00 Weight (Pounds): 156 HEENT: status post trach Respiratory/Chest: decreased breath sounds, other - on ventilator Cardiovascular: normal rate, other - PICC line Abdomen: soft, non tender, other - GT in place Extremities: no edema Neurologic/Psychiatric: aphasia Microbiology Date/Time Source Procedure Growth Status 11/15/18 02:25 Blood Blood Culture - Preliminary NO GROWTH AFTER 24 HOURS Resulted 11/15/18 02:15 Blood Blood Culture - Preliminary NO GROWTH AFTER 24 HOURS Resulted Laboratory Tests Test 11/15/18 16:50 11/15/18 20:30 11/16/18 02:20 11/16/18 04:30 Lactic Acid Level 2.80 mmol/L (0.4-2.0) H 1.90 mmol/L (0.4-2.0) 1.00 mmol/L (0.4-2.0) Troponin I 0.294 ng/mL (0.000-0.056) 0.255 ng/mL (0.000-0.056) Carcinoembryonic Antigen 4.3 ng/mL (0.0-4.7) Urine Color Yellow Urine Appearance Slightly cloudy Urine pH 5 (4.5-8.0) Urine Specific [place] 1.015 (1.005-1.035) Urine Protein 3+ (NEGATIVE) H Urine Glucose (UA) Negative (NEGATIVE) Urine Ketones Negative (NEGATIVE) Urine Blood 2+ (NEGATIVE) H Urine Nitrite Negative (NEGATIVE) Urine Bilirubin Negative (NEGATIVE) Urine Ictotest Negative (NEGATIVE) Urine Urobilinogen Normal MG/DL (0.0-1.0) Urine Leukocyte Esterase 3+ (NEGATIVE) H Urine RBC 5-10 /HPF (0 - 0) H Urine WBC 60-80 /HPF (0 - 0) H Urine Squamous Epithelial Cells Moderate /LPF (NONE/OCC) H Urine Bacteria Moderate /HPF (NONE) H Stool Occult Blood Positive (NEGATIVE) White Blood Count 29.1 K/UL (4.8-10.8) *H Red Blood Count 3.29 M/UL (4.70-6.10) L Hemoglobin 9.1 G/DL (14.2-18.0) #L Hematocrit 27.8 % (42.0-52.0) #L Mean Corpuscular Volume 85 FL (80-99) Mean Corpuscular Hemoglobin 27.8 PG (27.0-31.0) Mean Corpuscular Hemoglobin Concent 32.8 G/DL (32.0-36.0) Red Cell Distribution Width 15.2 % (11.6-14.8) H Platelet Count 232 K/UL (150-450) Mean Platelet Volume 7.4 FL (6.5-10.1) Neutrophils (%) (Auto) % (45.0-75.0) Lymphocytes (%) (Auto) % (20.0-45.0) Monocytes (%) (Auto) % (1.0-10.0) Eosinophils (%) (Auto) % (0.0-3.0) Basophils (%) (Auto) % (0.0-2.0) Differential Total Cells Counted 100 Neutrophils % (Manual) 92 % (45-75) H Lymphocytes % (Manual) 4 % (20-45) L Monocytes % (Manual) 1 % (1-10) Eosinophils % (Manual) 1 % (0-3) Basophils % (Manual) 1 % (0-2) Band Neutrophils 1 % (0-8) Platelet Estimate Adequate Platelet Morphology Normal Hypochromasia 2+ Anisocytosis 1+ Spherocytes 1+ Sodium Level 150 MMOL/L (136-145) H Potassium Level 3.6 MMOL/L (3.5-5.1) Chloride Level 115 MMOL/L (98-107) H Carbon Dioxide Level 28 MMOL/L (21-32) Anion Gap 7 mmol/L (5-15) Blood Urea Nitrogen 40 mg/dL (7-18) H Creatinine 1.8 MG/DL (0.55-1.30) H Estimat Glomerular Filtration Rate mL/min (>60) Glucose Level 169 MG/DL (74-106) H Hemoglobin A1c 5.3 % (4.3-6.0) Uric Acid 5.4 MG/DL (2.6-7.2) Calcium Level 8.0 MG/DL (8.5-10.1) L Phosphorus Level 3.1 MG/DL (2.5-4.9) Magnesium Level 2.3 MG/DL (1.8-2.4) Total Bilirubin 0.6 MG/DL (0.2-1.0) Gamma Glutamyl Transpeptidase 224 U/L (5-85) H Aspartate Amino Transf (AST/SGOT) 119 U/L (15-37) H Alanine Aminotransferase (ALT/SGPT) 211 U/L (12-78) H Alkaline Phosphatase 138 U/L (46-116) H Ammonia 37 umol/L (11-32) H Total Creatine Kinase 84 U/L (26-308) C-Reactive Protein, Quantitative 27.5 mg/dL (0.00-0.90) H Pro-B-Type Natriuretic Peptide 8616 pg/mL (0-125) H Total Protein 6.7 G/DL (6.4-8.2) Albumin 2.3 G/DL (3.4-5.0) L Globulin 4.4 g/dL Albumin/Globulin Ratio 0.5 (1.0-2.7) L Lipase 82 U/L (73-393) Vitamin B12 Level > 2000 PG/ML (193-986) H Cortisol AM Sample Pending Current Medications Medications (Trade) Dose Ordered Sig/Ruthie Route PRN Reason Start Time Stop Time Status Last Admin Dose Admin Acetaminophen (Tylenol) 650 mg Q6H PRN NG Mild Pain/Temp > 100.5 11/15/18 05:45 12/15/18 05:44 11/15/18 20:48 Acetaminophen/ Hydrocodone Bitart ([place] 5/325) 1 tab Q4H PRN ORAL Moderate Pain (Pain Scale 4-6) 11/15/18 05:45 11/22/18 05:44 Albuterol/ Ipratropium (Albuterol/ Ipratropium) 3 ml Q4HRT HHN 11/15/18 07:00 11/20/18 06:59 11/16/18 11:12 Atorvastatin Calcium (Lipitor) 10 mg BEDTIME ORAL 11/15/18 21:00 12/15/18 20:59 11/15/18 20:42 Bisacodyl (Dulcolax) 10 mg DAILYPRN PRN RECTAL Constipation 11/15/18 05:45 12/15/18 05:44 Calcium Carbonate (Tums) 500 mg DAILY GT 11/15/18 09:00 12/15/18 08:59 11/16/18 08:44 Chlorhexidine Gluconate (Rachael-Hex 2%) 1 applic DAILY@2000 TOPIC 11/15/18 20:00 12/15/18 19:59 11/15/18 20:00 Dextrose (Dextrose 50%) 25 ml Q30M PRN IV Hypoglycemia 11/15/18 05:45 12/15/18 05:44 Dextrose (Dextrose 50%) 50 ml Q30M PRN IV Hypoglycemia 11/15/18 05:45 12/15/18 05:44 Dextrose/Sodium Chloride 1,000 ml @ 100 mls/hr Q10H IV 11/15/18 08:00 12/15/18 07:59 11/16/18 03:55 Doxycycline Hyclate 100 mg/ Dextrose 110 ml @ 110 mls/hr Q12HR IV 11/15/18 09:00 11/22/18 08:59 11/16/18 08:44 Ferrous Sulfate (Feosol) 325 mg DAILY ORAL 11/15/18 09:00 12/15/18 08:59 11/16/18 08:44 Hydromorphone HCl (Dilaudid) 0.5 mg Q4H PRN IVP For Pain 11/15/18 05:45 11/22/18 05:44 Insulin Aspart (NovoLOG) BEFORE MEALS AND HS SUBQ 11/15/18 06:30 12/15/18 06:29 11/16/18 11:32 Lorazepam (Ativan 2mg/ml 1ml) 0.5 mg Q4H PRN IV For Anxiety 11/15/18 05:45 11/22/18 05:44 11/16/18 01:26 Norepinephrine Bitartrate 4 mg/ Dextrose 250 ml @ 0 mls/hr Q24H IV 11/15/18 19:00 12/15/18 18:59 Olanzapine (ZyPREXA Zydis) 7.5 mg DAILY GT 11/15/18 09:00 12/15/18 08:59 11/16/18 08:44 Pantoprazole (Protonix) 40 mg EVERY 12 HOURS IVP 11/15/18 09:00 12/15/18 08:59 11/16/18 08:45 Piperacillin Sod/ Tazobactam Sod 3.375 gm/Sodium Chloride 110 ml @ 27.5 mls/hr Q8H IVPB 11/15/18 12:00 11/22/18 11:59 11/16/18 03:55 Quetiapine Fumarate (SEROquel) 50 mg DAILY GT 11/15/18 09:00 12/15/18 08:59 11/16/18 08:44 Tamsulosin HCl (Flomax) 0.4 mg BEDTIME ORAL 11/15/18 21:00 12/15/18 20:59 11/15/18 20:42 Vancomycin HCl (Vanco rx to dose) 1 ea DAILY PRN MISC Per rx protocol 11/15/18 05:45 12/15/18 05:44 Vancomycin HCl 750 mg/Sodium Chloride 275 ml @ 183.333 mls/hr Q24H IVPB 11/16/18 11:00 11/21/18 10:59 11/16/18 11:23 Anam Cruz MD Nov 16, 2018 12:56
--- NOTE | 2018-11-16 14:17 | Cardiac Electrophysiology PN ---
Assessment/Plan Assessment/Plan 1. Septic shock with white count of 50,000 and lactic acid of 6. On IV antibiotic and IV fluid . Off Levophed. Echocardiogram Nl EF. On IV fluid 2. Congestive heart failure with BNP of more than 17,000. The patient has septic shock, endocarditis, and maintaining his blood pressure. The patient is already on the ventilator via tracheostomy anyway. 3. Troponin elevation, likely due to renal failure and anemia and septic shock. The levels are flat. EKG does not show any ST elevation. 4. Acute renal failure. BUN of 48, creatinine of 2.5. 5. Hypernatremia. Sodium of 150.iv fluid 6. Ventilator-dependent respiratory failure, status post tracheostomy. 7. Dysphagia, status post PEG placement. 8. Profound anemia, hemoglobin of 6.5, rule out GI bleed. S/P blood transfusion. RICARDA RN Subjective Subjective In ICU on the Vent off pressors and in SR Objective Last 24 Hour Vital Signs Date Time Temp Pulse Resp B/P (MAP) Pulse Ox O2 Delivery O2 Flow Rate FiO2 11/16/18 13:00 86 33 125/55 (78) 98 11/16/18 12:43 78 27 40 11/16/18 12:30 74 29 105/46 (65) 100 11/16/18 12:00 Mechanical Ventilator 11/16/18 12:00 98.0 79 30 109/51 (70) 100 11/16/18 12:00 83 11/16/18 12:00 40 11/16/18 11:22 76 29 100 Mechanical Ventilator 40 89 32 40 11/16/18 11:00 75 28 108/52 (70) 100 11/16/18 10:00 84 31 118/52 (74) 100 11/16/18 09:00 76 30 102/44 (63) 100 11/16/18 08:45 91 35 40 11/16/18 08:00 40 11/16/18 08:00 98.2 75 23 104/46 (65) 100 11/16/18 08:00 Mechanical Ventilator 11/16/18 08:00 85 11/16/18 07:16 79 31 100 Mechanical Ventilator 40 80 24 40 11/16/18 07:00 81 22 123/54 (77) 100 11/16/18 06:00 81 33 115/52 (73) 100 11/16/18 05:20 82 27 40 11/16/18 05:00 79 29 111/47 (68) 100 11/16/18 04:00 40 11/16/18 04:00 Mechanical Ventilator 11/16/18 04:00 98.4 79 26 112/49 (70) 100 11/16/18 03:34 81 11/16/18 03:00 77 23 113/49 (70) 100 11/16/18 02:48 76 30 100 Mechanical Ventilator 40 78 28 40 11/16/18 02:00 84 30 121/58 (79) 100 11/16/18 01:00 81 28 143/51 (81) 100 11/16/18 00:55 82 28 40 11/16/18 00:00 40 11/16/18 00:00 99.3 81 33 108/45 (66) 100 11/16/18 00:00 Mechanical Ventilator 11/15/18 23:34 85 11/15/18 23:16 79 36 100 Mechanical Ventilator 40 80 32 40 11/15/18 23:00 79 30 111/52 (71) 100 11/15/18 22:00 84 35 109/45 (66) 100 11/15/18 21:03 108 38 40 11/15/18 21:00 94 31 129/72 (91) 100 11/15/18 20:00 Mechanical Ventilator 11/15/18 20:00 89 11/15/18 20:00 40 11/15/18 20:00 100.0 89 27 130/43 (72) 100 11/15/18 19:28 82 36 100 Mechanical Ventilator 40 88 34 40 11/15/18 19:00 79 35 108/59 (75) 100 11/15/18 19:00 108/59 11/15/18 18:00 79 37 115/50 (71) 100 11/15/18 17:00 112/47 11/15/18 17:00 80 33 112/47 (68) 100 11/15/18 16:32 88 43 50 11/15/18 16:30 88 33 108/46 (66) 97 11/15/18 16:00 Mechanical Ventilator 11/15/18 16:00 83 11/15/18 16:00 50 11/15/18 16:00 99.0 83 29 122/40 (67) 100 11/15/18 16:00 122/40 11/15/18 15:30 82 32 150/86 (107) 100 11/15/18 15:15 83 31 123/70 (87) 100 11/15/18 15:00 83 33 123/70 (87) 100 11/15/18 15:00 112/47 11/15/18 14:57 81 39 100 Mechanical Ventilator 50 82 40 60 11/15/18 14:45 82 33 123/70 (87) 100 11/15/18 14:30 83 29 129/50 (76) 96 11/15/18 14:15 82 30 129/50 (76) 96 Intake and Output 11/15/18 11/16/18 19:00 07:00 Intake Total 2025.5 ml 2422.0 ml Output Total 1 ml 3 ml Balance 2024.5 ml 2419.0 ml Intake Free Water 260 ml IV Total 1425.5 ml 1517.0 ml Tube Feeding 100 ml 385 ml Blood Product 500 ml Other 260 ml Output Urine Total 1 ml 3 ml # Bowel Movements 2 Laboratory Tests Test 11/15/18 16:50 11/15/18 20:30 11/16/18 02:20 11/16/18 04:30 Lactic Acid Level 2.80 mmol/L (0.4-2.0) H 1.90 mmol/L (0.4-2.0) 1.00 mmol/L (0.4-2.0) Troponin I 0.294 ng/mL (0.000-0.056) 0.255 ng/mL (0.000-0.056) Carcinoembryonic Antigen 4.3 ng/mL (0.0-4.7) Urine Color Yellow Urine Appearance Slightly cloudy Urine pH 5 (4.5-8.0) Urine Specific [place] 1.015 (1.005-1.035) Urine Protein 3+ (NEGATIVE) H Urine Glucose (UA) Negative (NEGATIVE) Urine Ketones Negative (NEGATIVE) Urine Blood 2+ (NEGATIVE) H Urine Nitrite Negative (NEGATIVE) Urine Bilirubin Negative (NEGATIVE) Urine Ictotest Negative (NEGATIVE) Urine Urobilinogen Normal MG/DL (0.0-1.0) Urine Leukocyte Esterase 3+ (NEGATIVE) H Urine RBC 5-10 /HPF (0 - 0) H Urine WBC 60-80 /HPF (0 - 0) H Urine Squamous Epithelial Cells Moderate /LPF (NONE/OCC) H Urine Bacteria Moderate /HPF (NONE) H Stool Occult Blood Positive (NEGATIVE) White Blood Count 29.1 K/UL (4.8-10.8) *H Red Blood Count 3.29 M/UL (4.70-6.10) L Hemoglobin 9.1 G/DL (14.2-18.0) #L Hematocrit 27.8 % (42.0-52.0) #L Mean Corpuscular Volume 85 FL (80-99) Mean Corpuscular Hemoglobin 27.8 PG (27.0-31.0) Mean Corpuscular Hemoglobin Concent 32.8 G/DL (32.0-36.0) Red Cell Distribution Width 15.2 % (11.6-14.8) H Platelet Count 232 K/UL (150-450) Mean Platelet Volume 7.4 FL (6.5-10.1) Neutrophils (%) (Auto) % (45.0-75.0) Lymphocytes (%) (Auto) % (20.0-45.0) Monocytes (%) (Auto) % (1.0-10.0) Eosinophils (%) (Auto) % (0.0-3.0) Basophils (%) (Auto) % (0.0-2.0) Differential Total Cells Counted 100 Neutrophils % (Manual) 92 % (45-75) H Lymphocytes % (Manual) 4 % (20-45) L Monocytes % (Manual) 1 % (1-10) Eosinophils % (Manual) 1 % (0-3) Basophils % (Manual) 1 % (0-2) Band Neutrophils 1 % (0-8) Platelet Estimate Adequate Platelet Morphology Normal Hypochromasia 2+ Anisocytosis 1+ Spherocytes 1+ Sodium Level 150 MMOL/L (136-145) H Potassium Level 3.6 MMOL/L (3.5-5.1) Chloride Level 115 MMOL/L (98-107) H Carbon Dioxide Level 28 MMOL/L (21-32) Anion Gap 7 mmol/L (5-15) Blood Urea Nitrogen 40 mg/dL (7-18) H Creatinine 1.8 MG/DL (0.55-1.30) H Estimat Glomerular Filtration Rate mL/min (>60) Glucose Level 169 MG/DL (74-106) H Hemoglobin A1c 5.3 % (4.3-6.0) Uric Acid 5.4 MG/DL (2.6-7.2) Calcium Level 8.0 MG/DL (8.5-10.1) L Phosphorus Level 3.1 MG/DL (2.5-4.9) Magnesium Level 2.3 MG/DL (1.8-2.4) Total Bilirubin 0.6 MG/DL (0.2-1.0) Gamma Glutamyl Transpeptidase 224 U/L (5-85) H Aspartate Amino Transf (AST/SGOT) 119 U/L (15-37) H Alanine Aminotransferase (ALT/SGPT) 211 U/L (12-78) H Alkaline Phosphatase 138 U/L (46-116) H Ammonia 37 umol/L (11-32) H Total Creatine Kinase 84 U/L (26-308) C-Reactive Protein, Quantitative 27.5 mg/dL (0.00-0.90) H Pro-B-Type Natriuretic Peptide 8616 pg/mL (0-125) H Total Protein 6.7 G/DL (6.4-8.2) Albumin 2.3 G/DL (3.4-5.0) L Globulin 4.4 g/dL Albumin/Globulin Ratio 0.5 (1.0-2.7) L Lipase 82 U/L (73-393) Vitamin B12 Level > 2000 PG/ML (193-986) H Cortisol AM Sample Pending Microbiology Date/Time Source Procedure Growth Status 11/15/18 02:25 Blood Blood Culture - Preliminary NO GROWTH AFTER 24 HOURS Resulted 11/15/18 02:15 Blood Blood Culture - Preliminary NO GROWTH AFTER 24 HOURS Resulted Objective HEAD AND NECK: Status post tracheostomy. LUNGS: Coarse rhonchi. CARDIOVASCULAR: Irregular irregular S1 and S2 with no gallop. ABDOMEN: Status post G-tube, distended. EXTREMITIES: Reveal 1+ edema. Luke Prather MD Nov 16, 2018 14:17
--- NOTE | 2018-11-16 15:01 | Nephrology Progress Note ---
Assessment/Plan Problem List: (1) Septic shock (2) Ventilator dependence (3) Renal failure (ARF), acute on chronic (4) Prostate enlargement (5) Anemia Assessment Septic Shock Acute renal failure CKD underlying BPH Sever Anemia Chronic trach-Vent DM HypoAlbuminemia HyperNatremia Dementia Troponin elevation Plan Fluid challenge avoid Nephrotoxics transfuse [place] monitor urine out put and renal parameters per orders Subjective ROS Limited/Unobtainable: Yes Objective Objective Last 24 Hour Vital Signs Date Time Temp Pulse Resp B/P (MAP) Pulse Ox O2 Delivery O2 Flow Rate FiO2 11/16/18 14:00 74 30 120/58 (78) 100 11/16/18 13:00 86 33 125/55 (78) 98 11/16/18 12:43 78 27 40 11/16/18 12:30 74 29 105/46 (65) 100 11/16/18 12:00 Mechanical Ventilator 11/16/18 12:00 98.0 79 30 109/51 (70) 100 11/16/18 12:00 83 11/16/18 12:00 40 11/16/18 11:22 76 29 100 Mechanical Ventilator 40 89 32 40 11/16/18 11:00 75 28 108/52 (70) 100 11/16/18 10:00 84 31 118/52 (74) 100 11/16/18 09:00 76 30 102/44 (63) 100 11/16/18 08:45 91 35 40 11/16/18 08:00 40 11/16/18 08:00 98.2 75 23 104/46 (65) 100 11/16/18 08:00 Mechanical Ventilator 11/16/18 08:00 85 11/16/18 07:16 79 31 100 Mechanical Ventilator 40 80 24 40 11/16/18 07:00 81 22 123/54 (77) 100 11/16/18 06:00 81 33 115/52 (73) 100 11/16/18 05:20 82 27 40 11/16/18 05:00 79 29 111/47 (68) 100 11/16/18 04:00 40 11/16/18 04:00 Mechanical Ventilator 11/16/18 04:00 98.4 79 26 112/49 (70) 100 11/16/18 03:34 81 11/16/18 03:00 77 23 113/49 (70) 100 11/16/18 02:48 76 30 100 Mechanical Ventilator 40 78 28 40 11/16/18 02:00 84 30 121/58 (79) 100 11/16/18 01:00 81 28 143/51 (81) 100 11/16/18 00:55 82 28 40 11/16/18 00:00 40 11/16/18 00:00 99.3 81 33 108/45 (66) 100 11/16/18 00:00 Mechanical Ventilator 11/15/18 23:34 85 11/15/18 23:16 79 36 100 Mechanical Ventilator 40 80 32 40 11/15/18 23:00 79 30 111/52 (71) 100 11/15/18 22:00 84 35 109/45 (66) 100 11/15/18 21:03 108 38 40 11/15/18 21:00 94 31 129/72 (91) 100 11/15/18 20:00 Mechanical Ventilator 11/15/18 20:00 89 11/15/18 20:00 40 11/15/18 20:00 100.0 89 27 130/43 (72) 100 11/15/18 19:28 82 36 100 Mechanical Ventilator 40 88 34 40 11/15/18 19:00 79 35 108/59 (75) 100 11/15/18 19:00 108/59 11/15/18 18:00 79 37 115/50 (71) 100 11/15/18 17:00 112/47 11/15/18 17:00 80 33 112/47 (68) 100 11/15/18 16:32 88 43 50 11/15/18 16:30 88 33 108/46 (66) 97 11/15/18 16:00 Mechanical Ventilator 11/15/18 16:00 83 11/15/18 16:00 50 11/15/18 16:00 99.0 83 29 122/40 (67) 100 11/15/18 16:00 122/40 11/15/18 15:30 82 32 150/86 (107) 100 11/15/18 15:15 83 31 123/70 (87) 100 11/15/18 15:00 83 33 123/70 (87) 100 11/15/18 15:00 112/47 Intake and Output 11/15/18 11/16/18 19:00 07:00 Intake Total 2025.5 ml 2422.0 ml Output Total 1 ml 3 ml Balance 2024.5 ml 2419.0 ml Intake Free Water 260 ml IV Total 1425.5 ml 1517.0 ml Tube Feeding 100 ml 385 ml Blood Product 500 ml Other 260 ml Output Urine Total 1 ml 3 ml # Bowel Movements 2 Laboratory Tests 11/15/18 16:50: Lactic Acid Level 2.80H, Troponin I 0.294H, Carcinoembryonic Antigen 4.3 11/15/18 20:30: Lactic Acid Level 1.90 11/16/18 02:20: Urine Color Yellow, Urine Appearance Slightly cloudy, Urine pH 5, Urine Specific [place] 1.015, Urine Protein 3+H, Urine Glucose (UA) Negative, Urine Ketones Negative, Urine Blood 2+H, Urine Nitrite Negative, Urine Bilirubin Negative, Urine Ictotest Negative, Urine Urobilinogen Normal, Urine Leukocyte Esterase 3+H, Urine RBC 5-10H, Urine WBC 60-80H, Urine Squamous Epithelial Cells ModerateH, Urine Bacteria ModerateH, Stool Occult Blood Positive 11/16/18 04:30: Lactic Acid Level 1.00, Troponin I 0.255H, White Blood Count 29.1*H, Red Blood Count 3.29L, Hemoglobin 9.1#L, Hematocrit 27.8#L, Mean Corpuscular Volume 85, Mean Corpuscular Hemoglobin 27.8, Mean Corpuscular Hemoglobin Concent 32.8, Red Cell Distribution Width 15.2H, Platelet Count 232, Mean Platelet Volume 7.4, Neutrophils (%) (Auto) , Lymphocytes (%) (Auto) , Monocytes (%) (Auto) , Eosinophils (%) (Auto) , Basophils (%) (Auto) , Differential Total Cells Counted 100, Neutrophils % (Manual) 92H, Lymphocytes % (Manual) 4L, Monocytes % (Manual) 1, Eosinophils % (Manual) 1, Basophils % (Manual) 1, Band Neutrophils 1 , Platelet Estimate Adequate, Platelet Morphology Normal, Hypochromasia 2+, Anisocytosis 1+, Spherocytes 1+, Sodium Level 150H, Potassium Level 3.6, Chloride Level 115H, Carbon Dioxide Level 28, Anion Gap 7, Blood Urea Nitrogen 40H, Creatinine 1.8H, Estimat Glomerular Filtration Rate , Glucose Level 169H, Hemoglobin A1c 5.3, Uric Acid 5.4, Calcium Level 8.0L, Phosphorus Level 3.1, Magnesium Level 2.3, Total Bilirubin 0.6, Gamma Glutamyl Transpeptidase 224H, Aspartate Amino Transf (AST/SGOT) 119H, Alanine Aminotransferase (ALT/SGPT) 211H , Alkaline Phosphatase 138H, Ammonia 37H, Total Creatine Kinase 84, C-Reactive Protein, Quantitative 27.5H, Pro-B-Type Natriuretic Peptide 8616H, Total Protein 6.7, Albumin 2.3L, Globulin 4.4, Albumin/Globulin Ratio 0.5L, Lipase 82 , Vitamin B12 Level > 2000H, Cortisol AM Sample [Pending] Height (Feet): 5 Height (Inches): 8.00 Weight (Pounds): 156 General Appearance: no apparent distress Cardiovascular: normal rate Respiratory/Chest: decreased breath sounds Abdomen: distended Randolph Fernandes MD Nov 16, 2018 15:01
--- NOTE | 2018-11-16 15:29 | Hematology/Onc Progress Note ---
Assessment/Plan Assessment/Plan ASSESSMENT AND RECOMMENDATIONS # Leukocytosis. Likely related to underlying infection with sepsis and elevated severely on admission --> Imaging has been reviewed. Shows cxr left lung inil/v edema --> Blood cs and urine cx are reviewed --> Has been started on abx, empiric tx --> PERIPHERAL SMEAR SHOWS ATYPICAL LYMPHOCYTES --> Flow cytometry ordered with pathologist --> wbc 52k-->47k-->29k # Anemia of chronic disease (or of iron deficiency) due to underlying chronic medical issues, multifactorial. --> Anemia w/u has been ordered. --> No evidence of hemolysis noted, peripheral smear has been reviewed --> Hgb goal >7. Transfuse as needed --> hgb trend 7.5-->6.6->9.1 --> 2 units transfuse on 11/15 # Failure to thrive (FTT) - decreased bmi and low protein --> cea 4.3 --> will obtain q3 day caloric counts --> consider mirtazapine as appetite stimulant --> GI consult on a prn basis, as needed for endosc # Sepsis. # PEG. # Malnutrition. The timing of this note does not necessarily reflect the time of the patient was seen. Greatly appreciate consultation. Subjective Constitutional: Denies: no symptoms, chills, fever, malaise, weakness, other Respiratory: Denies: no symptoms, cough, shortness of breath, SOB with excertion, SOB at rest, sputum, wheezing, other Gastrointestinal/Abdominal: Denies: no symptoms, abdomen distended, abdominal pain, black stools, tarry stools, blood in stool, constipated, diarrhea, difficulty swallowing, nausea, poor appetite, poor fluid intake, rectal bleeding , vomiting, other Genitourinary: Denies: no symptoms, burning, discharge, frequency, flank pain, hematuria, incontinence, pain, urgency, other Neurologic/Psychiatric: Denies: no symptoms, anxiety, depressed, emotional problems, headache, numbness, paresthesia, pre-existing deficit, seizure, tingling, tremors, weakness, other Endocrine: Denies: no symptoms, excessive sweating, flushing, intolerance to cold, intolerance to heat, increased hunger, increased thirst, increased urine, unexplained weight gain, unexplained weight loss, other Hematologic/Lymphatic: Denies: no symptoms, anemia, easy bleeding, easy bruising, adenopathy, other Allergies: Coded Allergies: TERAZOSIN (Verified Allergy, Unknown, 10/27/17) Subjective 11/16: in the icu, is off pressors, doing better, no bleeding Objective Objective Current Medications Medications (Trade) Dose Ordered Sig/Ruthie Route PRN Reason Start Time Stop Time Status Last Admin Dose Admin Acetaminophen (Tylenol) 650 mg Q6H PRN NG Mild Pain/Temp > 100.5 11/15/18 05:45 12/15/18 05:44 11/15/18 20:48 Acetaminophen/ Hydrocodone Bitart (Fidelity 5/325) 1 tab Q4H PRN ORAL Moderate Pain (Pain Scale 4-6) 11/15/18 05:45 11/22/18 05:44 Albuterol/ Ipratropium (Albuterol/ Ipratropium) 3 ml Q4HRT HHN 11/15/18 07:00 11/20/18 06:59 11/16/18 14:57 Bisacodyl (Dulcolax) 10 mg DAILYPRN PRN RECTAL Constipation 11/15/18 05:45 12/15/18 05:44 Chlorhexidine Gluconate (Rachael-Hex 2%) 1 applic DAILY@2000 TOPIC 11/15/18 20:00 12/15/18 19:59 11/15/18 20:00 Dextrose (Dextrose 50%) 25 ml Q30M PRN IV Hypoglycemia 11/15/18 05:45 12/15/18 05:44 Dextrose (Dextrose 50%) 50 ml Q30M PRN IV Hypoglycemia 11/15/18 05:45 12/15/18 05:44 Dextrose/Sodium Chloride 1,000 ml @ 100 mls/hr Q10H IV 11/15/18 08:00 12/15/18 07:59 11/16/18 12:52 Doxycycline Hyclate 100 mg/ Dextrose 110 ml @ 110 mls/hr Q12HR IV 11/15/18 09:00 11/22/18 08:59 11/16/18 08:44 Hydromorphone HCl (Dilaudid) 0.5 mg Q4H PRN IVP For Pain 11/15/18 05:45 11/22/18 05:44 Insulin Aspart (NovoLOG) BEFORE MEALS AND HS SUBQ 11/15/18 06:30 12/15/18 06:29 11/16/18 11:32 Lorazepam (Ativan 2mg/ml 1ml) 0.5 mg Q4H PRN IV For Anxiety 11/15/18 05:45 11/22/18 05:44 11/16/18 01:26 Norepinephrine Bitartrate 4 mg/ Dextrose 250 ml @ 0 mls/hr Q24H IV 11/15/18 19:00 12/15/18 18:59 Olanzapine (ZyPREXA Zydis) 7.5 mg DAILY GT 11/15/18 09:00 12/15/18 08:59 11/16/18 08:44 Pantoprazole (Protonix) 40 mg EVERY 12 HOURS IVP 11/15/18 09:00 12/15/18 08:59 11/16/18 08:45 Piperacillin Sod/ Tazobactam Sod 3.375 gm/Sodium Chloride 110 ml @ 27.5 mls/hr Q8H IVPB 11/15/18 12:00 11/22/18 11:59 11/16/18 12:50 Quetiapine Fumarate (SEROquel) 50 mg DAILY GT 11/15/18 09:00 12/15/18 08:59 11/16/18 08:44 Tamsulosin HCl (Flomax) 0.4 mg BEDTIME ORAL 11/15/18 21:00 12/15/18 20:59 11/15/18 20:42 Vancomycin HCl (Vanco rx to dose) 1 ea DAILY PRN MISC Per rx protocol 11/15/18 05:45 12/15/18 05:44 Vancomycin HCl 750 mg/Sodium Chloride 275 ml @ 183.333 mls/hr Q24H IVPB 11/16/18 11:00 11/21/18 10:59 11/16/18 11:23 Last 24 Hour Vital Signs Date Time Temp Pulse Resp B/P (MAP) Pulse Ox O2 Delivery O2 Flow Rate FiO2 11/16/18 15:07 88 35 100 Mechanical Ventilator 40 87 22 40 11/16/18 15:00 88 41 122/98 (106) 100 11/16/18 14:00 74 30 120/58 (78) 100 11/16/18 13:00 86 33 125/55 (78) 98 11/16/18 12:43 78 27 40 11/16/18 12:30 74 29 105/46 (65) 100 11/16/18 12:00 Mechanical Ventilator 11/16/18 12:00 98.0 79 30 109/51 (70) 100 11/16/18 12:00 83 11/16/18 12:00 40 11/16/18 11:22 76 29 100 Mechanical Ventilator 40 89 32 40 11/16/18 11:00 75 28 108/52 (70) 100 11/16/18 10:00 84 31 118/52 (74) 100 11/16/18 09:00 76 30 102/44 (63) 100 11/16/18 08:45 91 35 40 11/16/18 08:00 40 11/16/18 08:00 98.2 75 23 104/46 (65) 100 11/16/18 08:00 Mechanical Ventilator 11/16/18 08:00 85 11/16/18 07:16 79 31 100 Mechanical Ventilator 40 80 24 40 11/16/18 07:00 81 22 123/54 (77) 100 11/16/18 06:00 81 33 115/52 (73) 100 11/16/18 05:20 82 27 40 11/16/18 05:00 79 29 111/47 (68) 100 11/16/18 04:00 40 11/16/18 04:00 Mechanical Ventilator 11/16/18 04:00 98.4 79 26 112/49 (70) 100 11/16/18 03:34 81 11/16/18 03:00 77 23 113/49 (70) 100 11/16/18 02:48 76 30 100 Mechanical Ventilator 40 78 28 40 11/16/18 02:00 84 30 121/58 (79) 100 11/16/18 01:00 81 28 143/51 (81) 100 11/16/18 00:55 82 28 40 11/16/18 00:00 40 11/16/18 00:00 99.3 81 33 108/45 (66) 100 11/16/18 00:00 Mechanical Ventilator 11/15/18 23:34 85 11/15/18 23:16 79 36 100 Mechanical Ventilator 40 80 32 40 11/15/18 23:00 79 30 111/52 (71) 100 11/15/18 22:00 84 35 109/45 (66) 100 11/15/18 21:03 108 38 40 11/15/18 21:00 94 31 129/72 (91) 100 11/15/18 20:00 Mechanical Ventilator 11/15/18 20:00 89 11/15/18 20:00 40 11/15/18 20:00 100.0 89 27 130/43 (72) 100 11/15/18 19:28 82 36 100 Mechanical Ventilator 40 88 34 40 11/15/18 19:00 79 35 108/59 (75) 100 11/15/18 19:00 108/59 11/15/18 18:00 79 37 115/50 (71) 100 11/15/18 17:00 112/47 11/15/18 17:00 80 33 112/47 (68) 100 11/15/18 16:32 88 43 50 11/15/18 16:30 88 33 108/46 (66) 97 11/15/18 16:00 Mechanical Ventilator 11/15/18 16:00 83 11/15/18 16:00 50 11/15/18 16:00 99.0 83 29 122/40 (67) 100 11/15/18 16:00 122/40 11/15/18 15:30 82 32 150/86 (107) 100 11/15/18 15:15 83 31 123/70 (87) 100 11/15/18 15:00 83 33 123/70 (87) 100 11/15/18 15:00 112/47 11/15/18 14:57 81 39 100 Mechanical Ventilator 50 82 40 60 11/15/18 14:45 82 33 123/70 (87) 100 11/15/18 14:30 83 29 129/50 (76) 96 11/15/18 14:15 82 30 129/50 (76) 96 11/15/18 14:00 143/125 11/15/18 14:00 79 30 143/125 (131) 97 11/15/18 13:30 50 11/15/18 13:30 74 32 122/53 (76) 100 11/15/18 13:20 73 35 50 11/15/18 13:15 74 32 122/53 (76) 100 11/15/18 13:00 75 34 119/56 (77) 100 11/15/18 13:00 119/56 11/15/18 12:30 76 32 115/51 (72) 100 11/15/18 12:00 99.0 75 30 114/53 (73) 100 11/15/18 12:00 83 11/15/18 12:00 114/53 11/15/18 12:00 60 11/15/18 12:00 Mechanical Ventilator 11/15/18 11:30 78 33 127/73 (91) 100 11/15/18 11:16 79 48 100 Mechanical Ventilator 60 77 45 60 11/15/18 11:00 79 30 127/69 (88) 100 11/15/18 11:00 127/69 11/15/18 10:45 79 35 127/69 (88) 100 11/15/18 10:30 78 36 119/62 (81) 100 11/15/18 10:15 76 39 119/62 (81) 100 11/15/18 10:00 78 32 131/59 (83) 100 11/15/18 10:00 131/59 11/15/18 09:45 80 30 131/59 (83) 100 11/15/18 09:30 77 33 119/85 (96) 100 11/15/18 09:15 74 32 119/85 (96) 100 11/15/18 09:00 70 34 103/44 (63) 100 11/15/18 08:58 96/41 11/15/18 08:43 72 40 60 11/15/18 08:00 60 11/15/18 08:00 69 11/15/18 08:00 Mechanical Ventilator 11/15/18 08:00 98.7 68 36 91/40 (57) 100 11/15/18 07:56 72 44 100 Mechanical Ventilator 60 70 34 11/15/18 07:00 70 36 87/49 (62) 98 11/15/18 06:50 71 38 60 11/15/18 06:30 71 35 92/58 (69) 100 11/15/18 06:00 72 36 102/55 (71) 100 11/15/18 05:45 92/58 11/15/18 05:20 97.8 73 32 120/107 (111) 95 11/15/18 05:20 Mechanical Ventilator 11/15/18 04:45 101.7 75 43 107/56 100 Mechanical Ventilator 60 11/15/18 04:37 70 43 60 11/15/18 03:30 71 40 60 11/15/18 02:42 101.7 75 35 107/56 100 Mechanical Ventilator 40 11/15/18 02:42 76 35 Mechanical Ventilator 40 11/15/18 02:27 76 35 100 Mechanical Ventilator 40 11/15/18 02:25 76 35 40 11/15/18 02:14 101.7 68 22 107/56 (73) 96 Endotracheal Tube Intake and Output 11/15/18 11/16/18 19:00 07:00 Intake Total 2025.5 ml 2422.0 ml Output Total 1 ml 3 ml Balance 2024.5 ml 2419.0 ml Intake Free Water 260 ml IV Total 1425.5 ml 1517.0 ml Tube Feeding 100 ml 385 ml Blood Product 500 ml Other 260 ml Output Urine Total 1 ml 3 ml # Bowel Movements 2 Labs Test 11/15/18 02:25 11/15/18 02:43 11/15/18 03:53 11/15/18 07:50 White Blood Count 52.1 K/UL (4.8-10.8) 47.2 K/UL (4.8-10.8) Red Blood Count 2.83 M/UL (4.70-6.10) 2.47 M/UL (4.70-6.10) Hemoglobin 7.5 G/DL (14.2-18.0) 6.6 G/DL (14.2-18.0) Hematocrit 24.0 % (42.0-52.0) 21.1 % (42.0-52.0) Mean Corpuscular Volume 85 FL (80-99) 86 FL (80-99) Mean Corpuscular Hemoglobin 26.3 PG (27.0-31.0) 26.8 PG (27.0-31.0) Mean Corpuscular Hemoglobin Concent 31.1 G/DL (32.0-36.0) 31.4 G/DL (32.0-36.0) Red Cell Distribution Width 16.9 % (11.6-14.8) 16.6 % (11.6-14.8) Platelet Count 327 K/UL (150-450) 290 K/UL (150-450) Mean Platelet Volume 6.6 FL (6.5-10.1) 6.9 FL (6.5-10.1) Neutrophils (%) (Auto) % (45.0-75.0) % (45.0-75.0) Lymphocytes (%) (Auto) % (20.0-45.0) % (20.0-45.0) Monocytes (%) (Auto) % (1.0-10.0) % (1.0-10.0) Eosinophils (%) (Auto) % (0.0-3.0) % (0.0-3.0) Basophils (%) (Auto) % (0.0-2.0) % (0.0-2.0) Differential Total Cells Counted 100 100 Neutrophils % (Manual) 83 % (45-75) 91 % (45-75) Lymphocytes % (Manual) 8 % (20-45) 4 % (20-45) Monocytes % (Manual) 1 % (1-10) 4 % (1-10) Eosinophils % (Manual) 0 % (0-3) 0 % (0-3) Basophils % (Manual) 0 % (0-2) 0 % (0-2) Band Neutrophils 8 % (0-8) 1 % (0-8) Platelet Estimate Adequate Adequate Platelet Morphology Normal Normal Sodium Level 150 MMOL/L (136-145) 150 MMOL/L (136-145) Potassium Level 5.2 MMOL/L (3.5-5.1) 4.7 MMOL/L (3.5-5.1) Chloride Level 112 MMOL/L (98-107) 113 MMOL/L (98-107) Carbon Dioxide Level 29 MMOL/L (21-32) 28 MMOL/L (21-32) Anion Gap 9 mmol/L (5-15) 9 mmol/L (5-15) Blood Urea Nitrogen 47 mg/dL (7-18) 48 mg/dL (7-18) Creatinine 2.4 MG/DL (0.55-1.30) 2.5 MG/DL (0.55-1.30) Estimat Glomerular Filtration Rate mL/min (>60) mL/min (>60) Glucose Level 139 MG/DL (74-106) 191 MG/DL (74-106) Lactic Acid Level 5.80 mmol/L (0.4-2.0) 5.90 mmol/L (0.66-2.22) 4.10 mmol/L (0.4-2.0) Calcium Level 8.5 MG/DL (8.5-10.1) 8.0 MG/DL (8.5-10.1) Phosphorus Level 4.5 MG/DL (2.5-4.9) 3.8 MG/DL (2.5-4.9) Magnesium Level 2.6 MG/DL (1.8-2.4) 2.4 MG/DL (1.8-2.4) Total Bilirubin 0.5 MG/DL (0.2-1.0) Aspartate Amino Transf (AST/SGOT) 174 U/L (15-37) Alanine Aminotransferase (ALT/SGPT) 244 U/L (12-78) Alkaline Phosphatase 147 U/L (46-116) Total Creatine Kinase 75 U/L (26-308) Creatine Kinase MB 0.6 NG/ML (0.0-3.6) Creatine Kinase MB Relative Index 0.8 Troponin I 0.118 ng/mL (0.000-0.056) 0.222 ng/mL (0.000-0.056) Pro-B-Type Natriuretic Peptide 34770 pg/mL (0-125) Total Protein 7.1 G/DL (6.4-8.2) Albumin 2.3 G/DL (3.4-5.0) Globulin 4.8 g/dL Albumin/Globulin Ratio 0.5 (1.0-2.7) Arterial Blood pH 7.475 (7.350-7.450) Arterial Blood Partial Pressure CO2 35.7 mmHg (35.0-45.0) Arterial Blood Partial Pressure O2 59.4 mmHg (75.0-100.0) Arterial Blood HCO3 25.7 mmol/L (22.0-26.0) Arterial Blood Oxygen Saturation 89.7 % (95-100) Arterial Blood Base Excess 2.1 (-2-2) Ebenezer Test Positive Other Cell Type See comments Hypochromasia 3+ Anisocytosis 1+ Reticulocyte Count 2.9 % (0.5-2.0) Prothrombin Time 11.6 SEC (9.30-11.50) Prothromb Time International Ratio 1.1 (0.9-1.1) Fibrinogen 303 mg/dL (200-400) Iron Level 7 ug/dL (50-175) Total Iron Binding Capacity 128 ug/dL (250-450) Percent Iron Saturation 5 % (15-50) Unsaturated Iron Binding 121 ug/dL (112-346) Ferritin > 2000 NG/ML (8-388) Folate 59.7 NG/ML (8.6-58.9) Test 11/15/18 16:50 11/15/18 20:30 11/16/18 02:20 11/16/18 04:30 Lactic Acid Level 2.80 mmol/L (0.4-2.0) 1.90 mmol/L (0.4-2.0) 1.00 mmol/L (0.4-2.0) Troponin I 0.294 ng/mL (0.000-0.056) 0.255 ng/mL (0.000-0.056) Carcinoembryonic Antigen 4.3 ng/mL (0.0-4.7) Urine Color Yellow Urine Appearance Slightly cloudy Urine pH 5 (4.5-8.0) Urine Specific [place] 1.015 (1.005-1.035) Urine Protein 3+ (NEGATIVE) Urine Glucose (UA) Negative (NEGATIVE) Urine Ketones Negative (NEGATIVE) Urine Blood 2+ (NEGATIVE) Urine Nitrite Negative (NEGATIVE) Urine Bilirubin Negative (NEGATIVE) Urine Ictotest Negative (NEGATIVE) Urine Urobilinogen Normal MG/DL (0.0-1.0) Urine Leukocyte Esterase 3+ (NEGATIVE) Urine RBC 5-10 /HPF (0 - 0) Urine WBC 60-80 /HPF (0 - 0) Urine Squamous Epithelial Cells Moderate /LPF (NONE/OCC) Urine Bacteria Moderate /HPF (NONE) Stool Occult Blood Positive (NEGATIVE) White Blood Count 29.1 K/UL (4.8-10.8) Red Blood Count 3.29 M/UL (4.70-6.10) Hemoglobin 9.1 G/DL (14.2-18.0) Hematocrit 27.8 % (42.0-52.0) Mean Corpuscular Volume 85 FL (80-99) Mean Corpuscular Hemoglobin 27.8 PG (27.0-31.0) Mean Corpuscular Hemoglobin Concent 32.8 G/DL (32.0-36.0) Red Cell Distribution Width 15.2 % (11.6-14.8) Platelet Count 232 K/UL (150-450) Mean Platelet Volume 7.4 FL (6.5-10.1) Neutrophils (%) (Auto) % (45.0-75.0) Lymphocytes (%) (Auto) % (20.0-45.0) Monocytes (%) (Auto) % (1.0-10.0) Eosinophils (%) (Auto) % (0.0-3.0) Basophils (%) (Auto) % (0.0-2.0) Differential Total Cells Counted 100 Neutrophils % (Manual) 92 % (45-75) Lymphocytes % (Manual) 4 % (20-45) Monocytes % (Manual) 1 % (1-10) Eosinophils % (Manual) 1 % (0-3) Basophils % (Manual) 1 % (0-2) Band Neutrophils 1 % (0-8) Platelet Estimate Adequate Platelet Morphology Normal Hypochromasia 2+ Anisocytosis 1+ Spherocytes 1+ Sodium Level 150 MMOL/L (136-145) Potassium Level 3.6 MMOL/L (3.5-5.1) Chloride Level 115 MMOL/L (98-107) Carbon Dioxide Level 28 MMOL/L (21-32) Anion Gap 7 mmol/L (5-15) Blood Urea Nitrogen 40 mg/dL (7-18) Creatinine 1.8 MG/DL (0.55-1.30) Estimat Glomerular Filtration Rate mL/min (>60) Glucose Level 169 MG/DL (74-106) Hemoglobin A1c 5.3 % (4.3-6.0) Uric Acid 5.4 MG/DL (2.6-7.2) Calcium Level 8.0 MG/DL (8.5-10.1) Phosphorus Level 3.1 MG/DL (2.5-4.9) Magnesium Level 2.3 MG/DL (1.8-2.4) Total Bilirubin 0.6 MG/DL (0.2-1.0) Gamma Glutamyl Transpeptidase 224 U/L (5-85) Aspartate Amino Transf (AST/SGOT) 119 U/L (15-37) Alanine Aminotransferase (ALT/SGPT) 211 U/L (12-78) Alkaline Phosphatase 138 U/L (46-116) Ammonia 37 umol/L (11-32) Total Creatine Kinase 84 U/L (26-308) C-Reactive Protein, Quantitative 27.5 mg/dL (0.00-0.90) Pro-B-Type Natriuretic Peptide 8616 pg/mL (0-125) Total Protein 6.7 G/DL (6.4-8.2) Albumin 2.3 G/DL (3.4-5.0) Globulin 4.4 g/dL Albumin/Globulin Ratio 0.5 (1.0-2.7) Lipase 82 U/L (73-393) Vitamin B12 Level > 2000 PG/ML (193-986) Height (Feet): 5 Height (Inches): 8.00 Weight (Pounds): 156 Objective Vitals: reviewed Gen: no apparent distress Head: normocephalic EENT: normal ENT inspection Neck: supple Respiratory: other - intubated Cardiovascular: normal rate Gastrointestinal: gt - c/d/i Rectal: deferred Genitourinary: no CVA tenderness Skin: normal color +++ Beny Rao MD Nov 16, 2018 15:29
--- NOTE | 2018-11-16 16:42 | General Progress Note ---
Assessment/Plan Problem List: (1) Hypernatremia ICD Codes: E87.0 - Hyperosmolality and hypernatremia SNOMED: 33071336 (2) Rhabdomyolysis ICD Codes: M62.82 - Rhabdomyolysis SNOMED: 763478078 (3) Sacral decubitus ulcer ICD Codes: L89.159 - Pressure ulcer of sacral region, unspecified stage SNOMED: 020624779 (4) Severe sepsis ICD Codes: A41.9 - Sepsis, unspecified organism; R65.20 - Severe sepsis without septic shock SNOMED: 66827806 (5) Septic shock ICD Codes: A41.9 - Sepsis, unspecified organism; R65.21 - Severe sepsis with septic shock SNOMED: 05712085 (6) DM (7) Anemia ICD Codes: D64.9 - Anemia, unspecified SNOMED: 970911594 (8) Prostate enlargement ICD Codes: N40.0 - Benign prostatic hyperplasia without lower urinary tract symptoms SNOMED: 037482348 (9) Chronic renal disease ICD Codes: N18.9 - Chronic kidney disease, unspecified SNOMED: 578827423 (10) Ventilator dependence ICD Codes: Z99.11 - Dependence on respirator [ventilator] status SNOMED: 992998128 (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 - Gastrostomy status SNOMED: 564021854, 272751638 (12) Malnutrition ICD Codes: E46 - Unspecified protein-calorie malnutrition SNOMED: 91612522 Status: progressing, unchanged Assessment/Plan: leukocytosis is improving off pressors cri chf hypernatremia improving bph still crabtree not in place have consulted dr ramos for crabtree replacement afebrile Subjective ROS Limited/Unobtainable: Yes Allergies: Coded Allergies: TERAZOSIN (Verified Allergy, Unknown, 10/27/17) Objective Last 24 Hour Vital Signs Date Time Temp Pulse Resp B/P (MAP) Pulse Ox O2 Delivery O2 Flow Rate FiO2 11/16/18 16:00 84 11/16/18 16:00 Mechanical Ventilator 11/16/18 16:00 88 33 111/47 (68) 100 11/16/18 16:00 40 11/16/18 15:07 88 35 100 Mechanical Ventilator 40 87 22 40 11/16/18 15:00 88 41 122/98 (106) 100 11/16/18 14:00 74 30 120/58 (78) 100 11/16/18 13:00 86 33 125/55 (78) 98 11/16/18 12:43 78 27 40 11/16/18 12:30 74 29 105/46 (65) 100 11/16/18 12:00 Mechanical Ventilator 11/16/18 12:00 98.0 79 30 109/51 (70) 100 11/16/18 12:00 83 11/16/18 12:00 40 11/16/18 11:22 76 29 100 Mechanical Ventilator 40 89 32 40 11/16/18 11:00 75 28 108/52 (70) 100 11/16/18 10:00 84 31 118/52 (74) 100 11/16/18 09:00 76 30 102/44 (63) 100 11/16/18 08:45 91 35 40 11/16/18 08:00 40 11/16/18 08:00 98.2 75 23 104/46 (65) 100 11/16/18 08:00 Mechanical Ventilator 11/16/18 08:00 85 11/16/18 07:16 79 31 100 Mechanical Ventilator 40 80 24 40 11/16/18 07:00 81 22 123/54 (77) 100 11/16/18 06:00 81 33 115/52 (73) 100 11/16/18 05:20 82 27 40 11/16/18 05:00 79 29 111/47 (68) 100 11/16/18 04:00 40 11/16/18 04:00 Mechanical Ventilator 11/16/18 04:00 98.4 79 26 112/49 (70) 100 11/16/18 03:34 81 11/16/18 03:00 77 23 113/49 (70) 100 11/16/18 02:48 76 30 100 Mechanical Ventilator 40 78 28 40 11/16/18 02:00 84 30 121/58 (79) 100 11/16/18 01:00 81 28 143/51 (81) 100 11/16/18 00:55 82 28 40 11/16/18 00:00 40 11/16/18 00:00 99.3 81 33 108/45 (66) 100 11/16/18 00:00 Mechanical Ventilator 11/15/18 23:34 85 11/15/18 23:16 79 36 100 Mechanical Ventilator 40 80 32 40 11/15/18 23:00 79 30 111/52 (71) 100 11/15/18 22:00 84 35 109/45 (66) 100 11/15/18 21:03 108 38 40 11/15/18 21:00 94 31 129/72 (91) 100 11/15/18 20:00 Mechanical Ventilator 11/15/18 20:00 89 11/15/18 20:00 40 11/15/18 20:00 100.0 89 27 130/43 (72) 100 11/15/18 19:28 82 36 100 Mechanical Ventilator 40 88 34 40 11/15/18 19:00 79 35 108/59 (75) 100 11/15/18 19:00 108/59 11/15/18 18:00 79 37 115/50 (71) 100 11/15/18 17:00 112/47 11/15/18 17:00 80 33 112/47 (68) 100 Intake and Output 11/15/18 11/16/18 19:00 07:00 Intake Total 2025.5 ml 2422.0 ml Output Total 1 ml 3 ml Balance 2024.5 ml 2419.0 ml Intake Free Water 260 ml IV Total 1425.5 ml 1517.0 ml Tube Feeding 100 ml 385 ml Blood Product 500 ml Other 260 ml Output Urine Total 1 ml 3 ml # Bowel Movements 2 Laboratory Tests 11/15/18 16:50: Lactic Acid Level 2.80H, Troponin I 0.294H, Carcinoembryonic Antigen 4.3 11/15/18 20:30: Lactic Acid Level 1.90 11/16/18 02:20: Urine Color Yellow, Urine Appearance Slightly cloudy, Urine pH 5, Urine Specific [place] 1.015, Urine Protein 3+H, Urine Glucose (UA) Negative, Urine Ketones Negative, Urine Blood 2+H, Urine Nitrite Negative, Urine Bilirubin Negative, Urine Ictotest Negative, Urine Urobilinogen Normal, Urine Leukocyte Esterase 3+H, Urine RBC 5-10H, Urine WBC 60-80H, Urine Squamous Epithelial Cells ModerateH, Urine Bacteria ModerateH, Stool Occult Blood Positive 11/16/18 04:30: Lactic Acid Level 1.00, Troponin I 0.255H, White Blood Count 29.1*H, Red Blood Count 3.29L, Hemoglobin 9.1#L, Hematocrit 27.8#L, Mean Corpuscular Volume 85, Mean Corpuscular Hemoglobin 27.8, Mean Corpuscular Hemoglobin Concent 32.8, Red Cell Distribution Width 15.2H, Platelet Count 232, Mean Platelet Volume 7.4, Neutrophils (%) (Auto) , Lymphocytes (%) (Auto) , Monocytes (%) (Auto) , Eosinophils (%) (Auto) , Basophils (%) (Auto) , Differential Total Cells Counted 100, Neutrophils % (Manual) 92H, Lymphocytes % (Manual) 4L, Monocytes % (Manual) 1, Eosinophils % (Manual) 1, Basophils % (Manual) 1, Band Neutrophils 1 , Platelet Estimate Adequate, Platelet Morphology Normal, Hypochromasia 2+, Anisocytosis 1+, Spherocytes 1+, Sodium Level 150H, Potassium Level 3.6, Chloride Level 115H, Carbon Dioxide Level 28, Anion Gap 7, Blood Urea Nitrogen 40H, Creatinine 1.8H, Estimat Glomerular Filtration Rate , Glucose Level 169H, Hemoglobin A1c 5.3, Uric Acid 5.4, Calcium Level 8.0L, Phosphorus Level 3.1, Magnesium Level 2.3, Total Bilirubin 0.6, Gamma Glutamyl Transpeptidase 224H, Aspartate Amino Transf (AST/SGOT) 119H, Alanine Aminotransferase (ALT/SGPT) 211H , Alkaline Phosphatase 138H, Ammonia 37H, Total Creatine Kinase 84, C-Reactive Protein, Quantitative 27.5H, Pro-B-Type Natriuretic Peptide 8616H, Total Protein 6.7, Albumin 2.3L, Globulin 4.4, Albumin/Globulin Ratio 0.5L, Lipase 82 , Vitamin B12 Level > 2000H, Cortisol AM Sample [Pending] Height (Feet): 5 Height (Inches): 8.00 Weight (Pounds): 156 Cardiovascular: normal rate Respiratory/Chest: lungs clear Abdomen: soft Trish Matias MD Nov 16, 2018 16:42
--- NOTE | 2018-11-16 16:42 | Surgery Progress Note ---
Surgery Progress Note Subjective Additional Comments labs improving exam stable still unable to get crabtree. will discuss with urology cont current care plan Objective Last 24 Hour Vital Signs Date Time Temp Pulse Resp B/P (MAP) Pulse Ox O2 Delivery O2 Flow Rate FiO2 11/16/18 16:00 84 11/16/18 16:00 Mechanical Ventilator 11/16/18 16:00 88 33 111/47 (68) 100 11/16/18 16:00 40 11/16/18 15:07 88 35 100 Mechanical Ventilator 40 87 22 40 11/16/18 15:00 88 41 122/98 (106) 100 11/16/18 14:00 74 30 120/58 (78) 100 11/16/18 13:00 86 33 125/55 (78) 98 11/16/18 12:43 78 27 40 11/16/18 12:30 74 29 105/46 (65) 100 11/16/18 12:00 Mechanical Ventilator 11/16/18 12:00 98.0 79 30 109/51 (70) 100 11/16/18 12:00 83 11/16/18 12:00 40 11/16/18 11:22 76 29 100 Mechanical Ventilator 40 89 32 40 11/16/18 11:00 75 28 108/52 (70) 100 11/16/18 10:00 84 31 118/52 (74) 100 11/16/18 09:00 76 30 102/44 (63) 100 11/16/18 08:45 91 35 40 11/16/18 08:00 40 11/16/18 08:00 98.2 75 23 104/46 (65) 100 11/16/18 08:00 Mechanical Ventilator 11/16/18 08:00 85 11/16/18 07:16 79 31 100 Mechanical Ventilator 40 80 24 40 11/16/18 07:00 81 22 123/54 (77) 100 11/16/18 06:00 81 33 115/52 (73) 100 11/16/18 05:20 82 27 40 11/16/18 05:00 79 29 111/47 (68) 100 11/16/18 04:00 40 11/16/18 04:00 Mechanical Ventilator 11/16/18 04:00 98.4 79 26 112/49 (70) 100 11/16/18 03:34 81 11/16/18 03:00 77 23 113/49 (70) 100 11/16/18 02:48 76 30 100 Mechanical Ventilator 40 78 28 40 11/16/18 02:00 84 30 121/58 (79) 100 11/16/18 01:00 81 28 143/51 (81) 100 11/16/18 00:55 82 28 40 11/16/18 00:00 40 11/16/18 00:00 99.3 81 33 108/45 (66) 100 11/16/18 00:00 Mechanical Ventilator 11/15/18 23:34 85 11/15/18 23:16 79 36 100 Mechanical Ventilator 40 80 32 40 11/15/18 23:00 79 30 111/52 (71) 100 11/15/18 22:00 84 35 109/45 (66) 100 11/15/18 21:03 108 38 40 11/15/18 21:00 94 31 129/72 (91) 100 11/15/18 20:00 Mechanical Ventilator 11/15/18 20:00 89 11/15/18 20:00 40 11/15/18 20:00 100.0 89 27 130/43 (72) 100 11/15/18 19:28 82 36 100 Mechanical Ventilator 40 88 34 40 11/15/18 19:00 79 35 108/59 (75) 100 11/15/18 19:00 108/59 11/15/18 18:00 79 37 115/50 (71) 100 11/15/18 17:00 112/47 11/15/18 17:00 80 33 112/47 (68) 100 I&O Intake and Output 11/15/18 11/16/18 19:00 07:00 Intake Total 2025.5 ml 2422.0 ml Output Total 1 ml 3 ml Balance 2024.5 ml 2419.0 ml Intake Free Water 260 ml IV Total 1425.5 ml 1517.0 ml Tube Feeding 100 ml 385 ml Blood Product 500 ml Other 260 ml Output Urine Total 1 ml 3 ml # Bowel Movements 2 Dressing: saturated Wound: other Drains: other Cardiovascular: RSR Respiratory: decreased breath sounds Abdomen: soft, present bowel sounds, non-distended Extremities: no cyanosis, other Laboratory Tests Test 11/15/18 16:50 11/15/18 20:30 11/16/18 02:20 10/11/19 04:30 Lactic Acid Level 2.80 mmol/L (0.4-2.0) H 1.90 mmol/L (0.4-2.0) 1.00 mmol/L (0.4-2.0) Troponin I 0.294 ng/mL (0.000-0.056) 0.255 ng/mL (0.000-0.056) Carcinoembryonic Antigen 4.3 ng/mL (0.0-4.7) Urine Color Yellow Urine Appearance Slightly cloudy Urine pH 5 (4.5-8.0) Urine Specific [place] 1.015 (1.005-1.035) Urine Protein 3+ (NEGATIVE) H Urine Glucose (UA) Negative (NEGATIVE) Urine Ketones Negative (NEGATIVE) Urine Blood 2+ (NEGATIVE) H Urine Nitrite Negative (NEGATIVE) Urine Bilirubin Negative (NEGATIVE) Urine Ictotest Negative (NEGATIVE) Urine Urobilinogen Normal MG/DL (0.0-1.0) Urine Leukocyte Esterase 3+ (NEGATIVE) H Urine RBC 5-10 /HPF (0 - 0) H Urine WBC 60-80 /HPF (0 - 0) H Urine Squamous Epithelial Cells Moderate /LPF (NONE/OCC) H Urine Bacteria Moderate /HPF (NONE) H Stool Occult Blood Positive (NEGATIVE) White Blood Count 29.1 K/UL (4.8-10.8) *H Red Blood Count 3.29 M/UL (4.70-6.10) L Hemoglobin 9.1 G/DL (14.2-18.0) #L Hematocrit 27.8 % (42.0-52.0) #L Mean Corpuscular Volume 85 FL (80-99) Mean Corpuscular Hemoglobin 27.8 PG (27.0-31.0) Mean Corpuscular Hemoglobin Concent 32.8 G/DL (32.0-36.0) Red Cell Distribution Width 15.2 % (11.6-14.8) H Platelet Count 232 K/UL (150-450) Mean Platelet Volume 7.4 FL (6.5-10.1) Neutrophils (%) (Auto) % (45.0-75.0) Lymphocytes (%) (Auto) % (20.0-45.0) Monocytes (%) (Auto) % (1.0-10.0) Eosinophils (%) (Auto) % (0.0-3.0) Basophils (%) (Auto) % (0.0-2.0) Differential Total Cells Counted 100 Neutrophils % (Manual) 92 % (45-75) H Lymphocytes % (Manual) 4 % (20-45) L Monocytes % (Manual) 1 % (1-10) Eosinophils % (Manual) 1 % (0-3) Basophils % (Manual) 1 % (0-2) Band Neutrophils 1 % (0-8) Platelet Estimate Adequate Platelet Morphology Normal Hypochromasia 2+ Anisocytosis 1+ Spherocytes 1+ Sodium Level 150 MMOL/L (136-145) H Potassium Level 3.6 MMOL/L (3.5-5.1) Chloride Level 115 MMOL/L (98-107) H Carbon Dioxide Level 28 MMOL/L (21-32) Anion Gap 7 mmol/L (5-15) Blood Urea Nitrogen 40 mg/dL (7-18) H Creatinine 1.8 MG/DL (0.55-1.30) H Estimat Glomerular Filtration Rate mL/min (>60) Glucose Level 169 MG/DL (74-106) H Hemoglobin A1c 5.3 % (4.3-6.0) Uric Acid 5.4 MG/DL (2.6-7.2) Calcium Level 8.0 MG/DL (8.5-10.1) L Phosphorus Level 3.1 MG/DL (2.5-4.9) Magnesium Level 2.3 MG/DL (1.8-2.4) Total Bilirubin 0.6 MG/DL (0.2-1.0) Gamma Glutamyl Transpeptidase 224 U/L (5-85) H Aspartate Amino Transf (AST/SGOT) 119 U/L (15-37) H Alanine Aminotransferase (ALT/SGPT) 211 U/L (12-78) H Alkaline Phosphatase 138 U/L (46-116) H Ammonia 37 umol/L (11-32) H Total Creatine Kinase 84 U/L (26-308) C-Reactive Protein, Quantitative 27.5 mg/dL (0.00-0.90) H Pro-B-Type Natriuretic Peptide 8616 pg/mL (0-125) H Total Protein 6.7 G/DL (6.4-8.2) Albumin 2.3 G/DL (3.4-5.0) L Globulin 4.4 g/dL Albumin/Globulin Ratio 0.5 (1.0-2.7) L Lipase 82 U/L (73-393) Vitamin B12 Level > 2000 PG/ML (193-986) H Cortisol AM Sample Pending Plan Problems: (1) Severe sepsis Assessment & Plan: leukocytosis, anemia, lactic acidosis, fevers IV Abx imaging noted and reviewed exam as below cont abx trend labs thank you will follow with recs (2) Malnutrition Assessment & Plan: DAILY ESTIMATED NEEDS: Needs based on Critical care, sepsis 71.8 kg 22-30 kcals/kg 6134-6914 total kcals 1.2-2 g protein/kg 86- 144 g total protein 25-30 mL/kg 1795- 2154 total fluid mLs NUTRITION DIAGNOSIS: * Swallowing difficulty R/T respiratory status and dysphagia as evidenced by pt is vent dep, on TF. * Altered nutrition related lab values r/t sepsis, clinical status, h/o Diabetes as evidenced by critically elev WBC (47.2), low Hgb (6.6), elev BNP, low BP (96/41), BG 191, POC 179. CURRENT TF: Jevity 1.2 @ 70mL/hr x 20hr - NOW NPO ENTERAL NUTRITION RECOMMENDATIONS: Vital 1.2 @55mL/hr x24 hrs to provide 1320mL, 1584kcal, 99g pro, 1071mL free H2O * As medically appropriate to feed, rec TF change to VITAL 1.2 for critical care. * Start Vital 1,2, @25mL, advance as tolerated 10ml/hr q4-6 hrs to goal * HOB over 30 degrees/ water flush per MD --- Low Hgb (6.6), NPO per GI-> rec trophic feeds when appropriate if pt remains hypotensive. ADDITIONAL RECOMMENDATIONS: * Per SNF: HT 68 inches WT 158 lbs + Daily calibrated bed scale wts * Change TF to Vital 1.2, as medically able to feed * Monitor lytes (replete as needed) * F/up w/ WC eval . (3) Sacral decubitus ulcer Assessment & Plan: Pt presented on admission with contractures and multiple pressure injuries. Partially opened DTPI L buttocks. Base of wound moist - viable with surrounding dark and fluctuant borders.(L)1.2cm x (W)1cm. Small amt of sanguineous exudate noted. No odor noted. Hyperpigmentation noted to sacrum. Historical scar from previous wound noted to L trochanter. Penile head retracted within foreskin and small wound noted within folds of foreskin. Wound is moist and viable. No odor or exudate noted. No erythema noted periwound. Resolving pressure injury plantar R heel. Base of wound 50% epithelialized, 50% moist and viable.(L)5.5cm x (W)6.5cm. Resolving pressure injury lateral L heel. Base of wound is moist and viable with surrounding hyperpigmentation.(L)0.6cm x (W)0.5cm. Scattered loose, dry brown skin noted to medial and posterior L heel. Tx.Plan: Apply Moisture Barrier Paste to L buttocks and sacrum. Cover with Optifoam drsg. Change every 3 days and prn. Cleanse head of penis with soap and water. Apply Bacitracin oint Twice Daily. Apply Betadine to R and L heel wounds. Cover each heel with Optifoam drsg. Daily and prn. APM/ABDELRAHMAN Mattress overlay. Reposition at least every 2hours and prn. Off-load heels with pillow. Don Carvalho Nov 16, 2018 16:42
[2018-11-16] MEDS: Dyna-Hex 2% Top Sol 2oz TOPIC SCH (19:31)
[2018-11-16] MEDS ORDERED: FERROUS SU300 MG/52 GT (19:52)
[2018-11-16] MEDS: Tamsulosin 0.4mg cap ORAL SCH (20:32)
[2018-11-17] VITALS (24 sets, daily range): BP systolic 108–154; BP diastolic 48–90
[2018-11-17] MEDS ORDERED: Vancomycin 1gm in D5W 275ml IVPB SCH (03:00)
[2018-11-17] MEDS: Albuterol/Ipratropium 3ml neb HHN SCH ×6 (03:38→23:05)
[2018-11-17] MEDS: Piperacillin/Tazobactam 3.375 GM in NS 110 ML IVPB SCH ×3 (03:41→19:36)
[2018-11-17] MEDS: NovoLOG Insulin Flexpen SUBQ SCH ×4 (06:12→20:43)
[2018-11-17 08:03] LABS: BASOPHILS % (AUTO) 0.4 % (0.0-2.0); EOSINOPHILS % (AUTO) 1.7 % (0.0-3.0); HEMATOCRIT 28.4 % (42.0-52.0); HEMOGLOBIN 9.2 G/DL (14.2-18.0); LYMPHOCYTES % (AUTO) 5.4 % (20.0-45.0); MEAN CORPUSCULAR VOLUME 85 FL (80-99); MONOCYTES % (AUTO) 7.6 % (1.0-10.0); NEUTROPHILS % (AUTO) 84.8 % (45.0-75.0); PLATELET COUNT 213 K/UL (150-450); RED BLOOD COUNT 3.33 M/UL (4.70-6.10); RED CELL DISTRIBUTION WIDTH 15.1 % (11.6-14.8); WHITE BLOOD COUNT 16.2 K/UL (4.8-10.8)
--- NOTE | 2018-11-17 08:28 | Nephrology Progress Note ---
Assessment/Plan Problem List: (1) Septic shock (2) Ventilator dependence (3) Renal failure (ARF), acute on chronic (4) Prostate enlargement (5) Anemia Assessment Septic Shock Acute renal failure CKD underlying BPH Sever Anemia Chronic trach-Vent DM HypoAlbuminemia HyperNatremia Dementia Troponin elevation Plan today's chemistries pending Fluid challenge avoid Nephrotoxics transfuse crabtree monitor urine out put and renal parameters per orders Subjective ROS Limited/Unobtainable: No Constitutional: Reports: malaise Objective Objective Last 24 Hour Vital Signs Date Time Temp Pulse Resp B/P (MAP) Pulse Ox O2 Delivery O2 Flow Rate FiO2 11/17/18 07:00 86 22 121/56 (77) 100 11/17/18 06:53 82 32 100 Mechanical Ventilator 40 82 31 40 11/17/18 06:00 99 29 122/90 (101) 100 11/17/18 05:29 97 33 40 11/17/18 05:00 83 26 116/55 (75) 100 11/17/18 04:00 98.6 80 22 111/48 (69) 100 11/17/18 04:00 Mechanical Ventilator 11/17/18 04:00 40 11/17/18 03:55 82 11/17/18 03:38 82 34 100 Mechanical Ventilator 40 80 34 40 11/17/18 03:00 81 30 115/53 (73) 99 11/17/18 02:00 79 30 114/52 (72) 99 11/17/18 01:08 80 29 40 11/17/18 01:00 82 22 112/53 (72) 100 11/17/18 00:00 98.9 80 26 108/56 (73) 100 11/17/18 00:00 78 11/17/18 00:00 Mechanical Ventilator 11/17/18 00:00 40 11/16/18 23:58 80 27 100 Mechanical Ventilator 40 80 23 40 11/16/18 23:00 88 28 111/53 (72) 100 11/16/18 22:00 71 30 129/78 (95) 100 11/16/18 21:00 85 32 120/53 (75) 100 11/16/18 20:51 80 39 40 11/16/18 20:30 92 34 154/84 (107) 100 11/16/18 20:00 Mechanical Ventilator 11/16/18 20:00 99.2 82 31 112/49 (70) 100 11/16/18 20:00 40 11/16/18 19:57 83 11/16/18 19:24 82 33 100 Mechanical Ventilator 40 82 30 40 11/16/18 19:00 77 31 116/56 (76) 100 11/16/18 18:43 155/55 11/16/18 18:00 77 28 155/55 (88) 100 11/16/18 17:00 77 25 111/52 (71) 100 11/16/18 16:32 77 30 40 11/16/18 16:00 84 11/16/18 16:00 Mechanical Ventilator 11/16/18 16:00 98.0 88 33 111/47 (68) 100 11/16/18 16:00 40 11/16/18 15:07 88 35 100 Mechanical Ventilator 40 87 22 40 11/16/18 15:00 88 41 122/98 (106) 100 11/16/18 14:00 74 30 120/58 (78) 100 11/16/18 13:00 86 33 125/55 (78) 98 11/16/18 12:43 78 27 40 11/16/18 12:30 74 29 105/46 (65) 100 11/16/18 12:00 Mechanical Ventilator 11/16/18 12:00 98.0 79 30 109/51 (70) 100 11/16/18 12:00 83 11/16/18 12:00 40 11/16/18 11:22 76 29 100 Mechanical Ventilator 40 89 32 40 11/16/18 11:00 75 28 108/52 (70) 100 11/16/18 10:00 84 31 118/52 (74) 100 11/16/18 09:00 76 30 102/44 (63) 100 11/16/18 08:45 91 35 40 Intake and Output 11/16/18 11/17/18 19:00 07:00 Intake Total 2115.5 ml 2591.5 ml Output Total 150 ml Balance 2115.5 ml 2441.5 ml Intake Free Water 260 ml IV Total 1495.5 ml 1411.5 ml Tube Feeding 620 ml 660 ml Other 260 ml Output Urine Total 150 ml # Voids 4 # Bowel Movements 3 3 Laboratory Tests 11/16/18 16:40: Stool Occult Blood [Pending] 11/17/18 07:15: White Blood Count 16.2H, Red Blood Count 3.33L, Hemoglobin 9.2L, Hematocrit 28.4L, Mean Corpuscular Volume 85, Mean Corpuscular Hemoglobin 27.5, Mean Corpuscular Hemoglobin Concent 32.3, Red Cell Distribution Width 15.1H, Platelet Count 213, Mean Platelet Volume 7.3, Neutrophils (%) (Auto) 84.8H, Lymphocytes (%) (Auto) 5.4L, Monocytes (%) (Auto) 7.6, Eosinophils (%) (Auto) 1.7, Basophils (%) (Auto) 0.4, Sodium Level [Pending], Potassium Level [Pending] , Chloride Level [Pending], Carbon Dioxide Level [Pending], Blood Urea Nitrogen [Pending], Creatinine [Pending], Estimat Glomerular Filtration Rate [Pending], Glucose Level [Pending], Uric Acid [Pending], Calcium Level [Pending], Phosphorus Level [Pending], Magnesium Level [Pending], Total Bilirubin [Pending] , Gamma Glutamyl Transpeptidase [Pending], Aspartate Amino Transf (AST/SGOT) [ Pending], Alanine Aminotransferase (ALT/SGPT) [Pending], Alkaline Phosphatase [ Pending], Total Protein [Pending], Albumin [Pending], Globulin [Pending], Ceruloplasmin [Pending], Hepatitis A IgM Antibody [Pending], Hepatitis B Surface Antigen [Pending], Hepatitis B Core IgM Antibody [Pending], Hepatitis C Antibody [Pending] Height (Feet): 5 Height (Inches): 8.00 Weight (Pounds): 161 General Appearance: no apparent distress EENT: other - vented Respiratory/Chest: decreased breath sounds Objective no change Randolph Fernandes MD Nov 17, 2018 08:28
[2018-11-17 08:32] LABS: ANION GAP 7 mmol/L (5-15); BLOOD UREA NITROGEN 27 mg/dL (7-18); CALCIUM 7.8 MG/DL (8.5-10.1); CARBON DIOXIDE 26 MMOL/L (21-32); CHLORIDE 115 MMOL/L (98-107); CREATININE 1.2 MG/DL (0.55-1.30); POTASSIUM 3.7 MMOL/L (3.5-5.1); SODIUM 148 MMOL/L (136-145)
[2018-11-17 08:46] LABS: PHOSPHORUS 2.6 MG/DL (2.5-4.9)
[2018-11-17 08:47] LABS: ALANINE AMINOTRANSFERASE 243 U/L (12-78); ALBUMIN 2.1 G/DL (3.4-5.0); ALBUMIN/GLOBULIN RATIO 0.5 (1.0-2.7); ALKALINE PHOSPHATASE 140 U/L (46-116); ASPARTATE AMINO TRANSFERASE 119 U/L (15-37); BILIRUBIN,TOTAL 0.5 MG/DL (0.2-1.0)
[2018-11-17] MEDS: ZyPREXA Zydis 5mg tab GT SCH (08:57)
[2018-11-17] MEDS: Pantoprazole Inj IVP SCH ×2 (08:58→20:41)
[2018-11-17] MEDS: Doxycycline Hyclate 100 MG in D5W 110 ML IV SCH ×2 (09:00→20:42)
[2018-11-17] MEDS: D5 1/2NS 1,000 ML IV SCH ×2 (09:05→19:36)
--- NOTE | 2018-11-17 09:41 | Critical Care Progress Note ---
Assessment/Plan Assessment/Plan Impression: ho Pneumonia Ventilator dependant respiratory failure chronic respiratory failure Severe sepsis -history of NSTEMI Anemia Dysphagia s/p G tube Chronic wounds Dementia Organic Brain Syndrome Diabetes Chronic renal disease BPH Penile wound CHF H/o Hypertension severe Protein Calorie Malnutrition Plan IV antibiotics all noted pressors as needed HHN Q4 on full vent support monitor oxygen needs Transfuse PRN monitor cultures Abdominal US noted DVT and PUD prophylaxis Gtube feeds Aspiration precautions Full Code medications/laboratory data/nursing notes/ICU care reviewed in detail note reviewed and edited care discussed with RN and RT ICU time spent 40 minutes Critical Care - Subjective Interval Events: overall care noted ICU care noted coverage for Dr. Pastor HAHN Limited/Unobtainable: Yes Condition: critical EKG Rhythm: Sinus Rhythm Residuals: minimal Tube Feeding Tolerated: yes I&O: Intake and Output 11/16/18 11/17/18 18:59 06:59 Intake Total 2133.0 ml 2664.0 ml Output Total 150 ml Balance 2133.0 ml 2514.0 ml Intake Free Water 260 ml IV Total 1523.0 ml 1484.0 ml Tube Feeding 610 ml 660 ml Other 260 ml Output Urine Total 150 ml # Voids 4 # Bowel Movements 3 3 Critical Care - Objective CXR: Hazy left lung infiltrate versus edema. Bilateral interstitial congestion Suspect small left pleural effusion Last 24 Hour Vital Signs Date Time Temp Pulse Resp B/P (MAP) Pulse Ox O2 Delivery O2 Flow Rate FiO2 11/17/18 09:26 80 26 40 11/17/18 08:00 Mechanical Ventilator 11/17/18 08:00 40 11/17/18 07:00 86 22 121/56 (77) 100 11/17/18 06:53 82 32 100 Mechanical Ventilator 40 82 31 40 11/17/18 06:00 99 29 122/90 (101) 100 11/17/18 05:29 97 33 40 11/17/18 05:00 83 26 116/55 (75) 100 11/17/18 04:00 98.6 80 22 111/48 (69) 100 11/17/18 04:00 Mechanical Ventilator 11/17/18 04:00 40 11/17/18 03:55 82 11/17/18 03:38 82 34 100 Mechanical Ventilator 40 80 34 40 11/17/18 03:00 81 30 115/53 (73) 99 11/17/18 02:00 79 30 114/52 (72) 99 11/17/18 01:08 80 29 40 11/17/18 01:00 82 22 112/53 (72) 100 11/17/18 00:00 98.9 80 26 108/56 (73) 100 11/17/18 00:00 78 11/17/18 00:00 Mechanical Ventilator 11/17/18 00:00 40 11/16/18 23:58 80 27 100 Mechanical Ventilator 40 80 23 40 11/16/18 23:00 88 28 111/53 (72) 100 11/16/18 22:00 71 30 129/78 (95) 100 11/16/18 21:00 85 32 120/53 (75) 100 11/16/18 20:51 80 39 40 11/16/18 20:30 92 34 154/84 (107) 100 11/16/18 20:00 Mechanical Ventilator 11/16/18 20:00 99.2 82 31 112/49 (70) 100 11/16/18 20:00 40 11/16/18 19:57 83 11/16/18 19:24 82 33 100 Mechanical Ventilator 40 82 30 40 11/16/18 19:00 77 31 116/56 (76) 100 11/16/18 18:43 155/55 11/16/18 18:00 77 28 155/55 (88) 100 11/16/18 17:00 77 25 111/52 (71) 100 11/16/18 16:32 77 30 40 11/16/18 16:00 84 11/16/18 16:00 Mechanical Ventilator 11/16/18 16:00 98.0 88 33 111/47 (68) 100 11/16/18 16:00 40 11/16/18 15:07 88 35 100 Mechanical Ventilator 40 87 22 40 11/16/18 15:00 88 41 122/98 (106) 100 11/16/18 14:00 74 30 120/58 (78) 100 11/16/18 13:00 86 33 125/55 (78) 98 11/16/18 12:43 78 27 40 11/16/18 12:30 74 29 105/46 (65) 100 11/16/18 12:00 Mechanical Ventilator 11/16/18 12:00 98.0 79 30 109/51 (70) 100 11/16/18 12:00 83 11/16/18 12:00 40 11/16/18 11:22 76 29 100 Mechanical Ventilator 40 89 32 40 11/16/18 11:00 75 28 108/52 (70) 100 11/16/18 10:00 84 31 118/52 (74) 100 Labs: Laboratory Tests Test 11/16/18 16:40 11/17/18 07:15 Stool Occult Blood Pending White Blood Count 16.2 K/UL (4.8-10.8) H Red Blood Count 3.33 M/UL (4.70-6.10) L Hemoglobin 9.2 G/DL (14.2-18.0) L Hematocrit 28.4 % (42.0-52.0) L Mean Corpuscular Volume 85 FL (80-99) Mean Corpuscular Hemoglobin 27.5 PG (27.0-31.0) Mean Corpuscular Hemoglobin Concent 32.3 G/DL (32.0-36.0) Red Cell Distribution Width 15.1 % (11.6-14.8) H Platelet Count 213 K/UL (150-450) Mean Platelet Volume 7.3 FL (6.5-10.1) Neutrophils (%) (Auto) 84.8 % (45.0-75.0) H Lymphocytes (%) (Auto) 5.4 % (20.0-45.0) L Monocytes (%) (Auto) 7.6 % (1.0-10.0) Eosinophils (%) (Auto) 1.7 % (0.0-3.0) Basophils (%) (Auto) 0.4 % (0.0-2.0) Sodium Level 148 MMOL/L (136-145) H Potassium Level 3.7 MMOL/L (3.5-5.1) Chloride Level 115 MMOL/L (98-107) H Carbon Dioxide Level 26 MMOL/L (21-32) Anion Gap 7 mmol/L (5-15) Blood Urea Nitrogen 27 mg/dL (7-18) H Creatinine 1.2 MG/DL (0.55-1.30) Estimat Glomerular Filtration Rate mL/min (>60) Glucose Level 120 MG/DL (74-106) H Uric Acid 3.1 MG/DL (2.6-7.2) Calcium Level 7.8 MG/DL (8.5-10.1) L Phosphorus Level 2.6 MG/DL (2.5-4.9) Magnesium Level 2.2 MG/DL (1.8-2.4) Total Bilirubin 0.5 MG/DL (0.2-1.0) Gamma Glutamyl Transpeptidase 210 U/L (5-85) H Aspartate Amino Transf (AST/SGOT) 119 U/L (15-37) H Alanine Aminotransferase (ALT/SGPT) 243 U/L (12-78) H Alkaline Phosphatase 140 U/L (46-116) H Total Protein 6.6 G/DL (6.4-8.2) Albumin 2.1 G/DL (3.4-5.0) L Globulin 4.5 g/dL Albumin/Globulin Ratio 0.5 (1.0-2.7) L Ceruloplasmin Pending Hepatitis A IgM Antibody Pending Hepatitis B Surface Antigen Pending Hepatitis B Core IgM Antibody Pending Hepatitis C Antibody Pending Objective: WDWN NAD on vent reduced breath sounds bilaterally with scattered rhonchi [id number] without MRG NABS nontender no HSM; GT no CC mild edema nonfocal reduced LOC reviewed and edited Micro: Microbiology Date/Time Source Procedure Growth Status 11/15/18 02:25 Blood Blood Culture - Preliminary NO GROWTH AFTER 24 HOURS Resulted 11/15/18 02:15 Blood Blood Culture - Preliminary NO GROWTH AFTER 24 HOURS Resulted 11/15/18 03:33 Nasal Nares MRSA Culture - Final NO METHICILLIN RESISTANT STAPH AUREUS... Complete 11/16/18 02:20 Urine,Clean Catch Urine Culture - Preliminary NO GROWTH AFTER 24 HOURS Resulted 11/15/18 03:33 Rectum VRE Culture - Final Enterococcus Faecalis - Vre Complete Accucheck: 136 Chele Wolfe MD Nov 17, 2018 09:41
--- NOTE | 2018-11-17 10:28 | General Progress Note ---
Assessment/Plan Problem List: (1) GIB (gastrointestinal bleeding) ICD Codes: K92.2 - Gastrointestinal hemorrhage, unspecified SNOMED: 41651546 (2) PEG (percutaneous endoscopic gastrostomy) status ICD Codes: Z93.1 - Gastrostomy status SNOMED: 297744339, 448530919 (3) Chronic renal disease ICD Codes: N18.9 - Chronic kidney disease, unspecified SNOMED: 398693048 (4) Prostate enlargement ICD Codes: N40.0 - Benign prostatic hyperplasia without lower urinary tract symptoms SNOMED: 942643738 (5) Anemia ICD Codes: D64.9 - Anemia, unspecified SNOMED: 615199085 (6) Septic shock ICD Codes: A41.9 - Sepsis, unspecified organism; R65.21 - Severe sepsis with septic shock SNOMED: 75074342 (7) Gastrostomy tube dependent ICD Codes: Z93.1 - Gastrostomy status SNOMED: 745815665, 015287667 Status: progressing, unchanged Assessment/Plan: ppi prn blood transfusion abx per ID now off pressors plan EGd possibly on Monday Subjective ROS Limited/Unobtainable: No Allergies: Coded Allergies: TERAZOSIN (Verified Allergy, Unknown, 10/27/17) Objective Last 24 Hour Vital Signs Date Time Temp Pulse Resp B/P (MAP) Pulse Ox O2 Delivery O2 Flow Rate FiO2 11/17/18 10:00 79 30 117/51 (73) 97 11/17/18 09:26 80 26 40 11/17/18 09:00 81 28 117/49 (71) 98 11/17/18 08:00 86 11/17/18 08:00 Mechanical Ventilator 11/17/18 08:00 40 11/17/18 08:00 98.2 85 22 154/70 (98) 100 11/17/18 07:00 86 22 121/56 (77) 100 11/17/18 06:53 82 32 100 Mechanical Ventilator 40 82 31 40 11/17/18 06:00 99 29 122/90 (101) 100 11/17/18 05:29 97 33 40 11/17/18 05:00 83 26 116/55 (75) 100 11/17/18 04:00 98.6 80 22 111/48 (69) 100 11/17/18 04:00 Mechanical Ventilator 11/17/18 04:00 40 10/12/19 03:55 82 11/17/18 03:38 82 34 100 Mechanical Ventilator 40 80 34 40 11/17/18 03:00 81 30 115/53 (73) 99 11/17/18 02:00 79 30 114/52 (72) 99 11/17/18 01:08 80 29 40 11/17/18 01:00 82 22 112/53 (72) 100 11/17/18 00:00 98.9 80 26 108/56 (73) 100 11/17/18 00:00 78 11/17/18 00:00 Mechanical Ventilator 11/17/18 00:00 40 11/16/18 23:58 80 27 100 Mechanical Ventilator 40 80 23 40 11/16/18 23:00 88 28 111/53 (72) 100 11/16/18 22:00 71 30 129/78 (95) 100 11/16/18 21:00 85 32 120/53 (75) 100 11/16/18 20:51 80 39 40 11/16/18 20:30 92 34 154/84 (107) 100 11/16/18 20:00 Mechanical Ventilator 11/16/18 20:00 99.2 82 31 112/49 (70) 100 11/16/18 20:00 40 11/16/18 19:57 83 11/16/18 19:24 82 33 100 Mechanical Ventilator 40 82 30 40 11/16/18 19:00 77 31 116/56 (76) 100 11/16/18 18:43 155/55 11/16/18 18:00 77 28 155/55 (88) 100 11/16/18 17:00 77 25 111/52 (71) 100 11/16/18 16:32 77 30 40 11/16/18 16:00 84 11/16/18 16:00 Mechanical Ventilator 11/16/18 16:00 98.0 88 33 111/47 (68) 100 11/16/18 16:00 40 11/16/18 15:07 88 35 100 Mechanical Ventilator 40 87 22 40 11/16/18 15:00 88 41 122/98 (106) 100 11/16/18 14:00 74 30 120/58 (78) 100 11/16/18 13:00 86 33 125/55 (78) 98 11/16/18 12:43 78 27 40 11/16/18 12:30 74 29 105/46 (65) 100 11/16/18 12:00 Mechanical Ventilator 11/16/18 12:00 98.0 79 30 109/51 (70) 100 11/16/18 12:00 83 11/16/18 12:00 40 11/16/18 11:22 76 29 100 Mechanical Ventilator 40 89 32 40 11/16/18 11:00 75 28 108/52 (70) 100 Intake and Output 11/16/18 11/17/18 19:00 07:00 Intake Total 2115.5 ml 2691.5 ml Output Total 150 ml Balance 2115.5 ml 2541.5 ml Intake Free Water 260 ml IV Total 1495.5 ml 1511.5 ml Tube Feeding 620 ml 660 ml Other 260 ml Output Urine Total 150 ml # Voids 4 # Bowel Movements 3 3 Laboratory Tests 11/16/18 16:40: Stool Occult Blood [Pending] 11/17/18 07:15: White Blood Count 16.2H, Red Blood Count 3.33L, Hemoglobin 9.2L, Hematocrit 28.4L, Mean Corpuscular Volume 85, Mean Corpuscular Hemoglobin 27.5, Mean Corpuscular Hemoglobin Concent 32.3, Red Cell Distribution Width 15.1H, Platelet Count 213, Mean Platelet Volume 7.3, Neutrophils (%) (Auto) 84.8H, Lymphocytes (%) (Auto) 5.4L, Monocytes (%) (Auto) 7.6, Eosinophils (%) (Auto) 1.7, Basophils (%) (Auto) 0.4, Sodium Level 148H, Potassium Level 3.7, Chloride Level 115H, Carbon Dioxide Level 26, Anion Gap 7, Blood Urea Nitrogen 27H, Creatinine 1.2, Estimat Glomerular Filtration Rate , Glucose Level 120H, Uric Acid 3.1, Calcium Level 7.8L, Phosphorus Level 2.6, Magnesium Level 2.2, Total Bilirubin 0.5, Gamma Glutamyl Transpeptidase 210H, Aspartate Amino Transf (AST/ SGOT) 119H, Alanine Aminotransferase (ALT/SGPT) 243H, Alkaline Phosphatase 140H , Total Protein 6.6, Albumin 2.1L, Globulin 4.5, Albumin/Globulin Ratio 0.5L, Ceruloplasmin [Pending], Hepatitis A IgM Antibody [Pending], Hepatitis B Surface Antigen [Pending], Hepatitis B Core IgM Antibody [Pending], Hepatitis C Antibody [Pending] Height (Feet): 5 Height (Inches): 8.00 Weight (Pounds): 161 General Appearance: lethargic EENT: normal ENT inspection Neck: supple Cardiovascular: tachycardia Respiratory/Chest: decreased breath sounds Abdomen: normal bowel sounds, non tender, soft Extremities: non-tender Juan Coronel MD Nov 17, 2018 10:28
[2018-11-17] MEDS: Vancomycin 750mg/NS 275ml IVPB SCH ×2 (11:03)
--- NOTE | 2018-11-17 12:58 | Surgery Progress Note ---
Surgery Progress Note Subjective Additional Comments no acute events labs noted exam unchanged Objective Last 24 Hour Vital Signs Date Time Temp Pulse Resp B/P (MAP) Pulse Ox O2 Delivery O2 Flow Rate FiO2 11/17/18 12:39 83 29 40 11/17/18 12:00 40 11/17/18 12:00 Mechanical Ventilator 11/17/18 11:12 78 34 98 Mechanical Ventilator 40 78 31 40 11/17/18 11:00 79 30 124/53 (76) 97 11/17/18 10:00 79 30 117/51 (73) 97 11/17/18 09:26 80 26 40 11/17/18 09:00 81 28 117/49 (71) 98 11/17/18 08:00 86 11/17/18 08:00 Mechanical Ventilator 11/17/18 08:00 40 11/17/18 08:00 98.2 85 22 154/70 (98) 100 11/17/18 07:00 86 22 121/56 (77) 100 11/17/18 06:53 82 32 100 Mechanical Ventilator 40 82 31 40 11/17/18 06:00 99 29 122/90 (101) 100 11/17/18 05:29 97 33 40 11/17/18 05:00 83 26 116/55 (75) 100 11/17/18 04:00 98.6 80 22 111/48 (69) 100 11/17/18 04:00 Mechanical Ventilator 11/17/18 04:00 40 11/17/18 03:55 82 11/17/18 03:38 82 34 100 Mechanical Ventilator 40 80 34 40 11/17/18 03:00 81 30 115/53 (73) 99 11/17/18 02:00 79 30 114/52 (72) 99 11/17/18 01:08 80 29 40 11/17/18 01:00 82 22 112/53 (72) 100 11/17/18 00:00 98.9 80 26 108/56 (73) 100 11/17/18 00:00 78 11/17/18 00:00 Mechanical Ventilator 11/17/18 00:00 40 11/16/18 23:58 80 27 100 Mechanical Ventilator 40 80 23 40 11/16/18 23:00 88 28 111/53 (72) 100 11/16/18 22:00 71 30 129/78 (95) 100 11/16/18 21:00 85 32 120/53 (75) 100 11/16/18 20:51 80 39 40 11/16/18 20:30 92 34 154/84 (107) 100 11/16/18 20:00 Mechanical Ventilator 11/16/18 20:00 99.2 82 31 112/49 (70) 100 11/16/18 20:00 40 11/16/18 19:57 83 11/16/18 19:24 82 33 100 Mechanical Ventilator 40 82 30 40 11/16/18 19:00 77 31 116/56 (76) 100 11/16/18 18:43 155/55 11/16/18 18:00 77 28 155/55 (88) 100 11/16/18 17:00 77 25 111/52 (71) 100 11/16/18 16:32 77 30 40 11/16/18 16:00 84 11/16/18 16:00 Mechanical Ventilator 11/16/18 16:00 98.0 88 33 111/47 (68) 100 11/16/18 16:00 40 11/16/18 15:07 88 35 100 Mechanical Ventilator 40 87 22 40 11/16/18 15:00 88 41 122/98 (106) 100 11/16/18 14:00 74 30 120/58 (78) 100 11/16/18 13:00 86 33 125/55 (78) 98 I&O Intake and Output 11/16/18 11/17/18 18:59 06:59 Intake Total 2133.0 ml 2664.0 ml Output Total 150 ml Balance 2133.0 ml 2514.0 ml Intake Free Water 260 ml IV Total 1523.0 ml 1484.0 ml Tube Feeding 610 ml 660 ml Other 260 ml Output Urine Total 150 ml # Voids 4 # Bowel Movements 3 3 Dressing: saturated Wound: other Drains: other Cardiovascular: RSR Respiratory: decreased breath sounds Abdomen: soft, present bowel sounds, non-distended Extremities: no cyanosis Laboratory Tests Test 11/16/18 16:40 11/17/18 07:15 Stool Occult Blood Pending White Blood Count 16.2 K/UL (4.8-10.8) H Red Blood Count 3.33 M/UL (4.70-6.10) L Hemoglobin 9.2 G/DL (14.2-18.0) L Hematocrit 28.4 % (42.0-52.0) L Mean Corpuscular Volume 85 FL (80-99) Mean Corpuscular Hemoglobin 27.5 PG (27.0-31.0) Mean Corpuscular Hemoglobin Concent 32.3 G/DL (32.0-36.0) Red Cell Distribution Width 15.1 % (11.6-14.8) H Platelet Count 213 K/UL (150-450) Mean Platelet Volume 7.3 FL (6.5-10.1) Neutrophils (%) (Auto) 84.8 % (45.0-75.0) H Lymphocytes (%) (Auto) 5.4 % (20.0-45.0) L Monocytes (%) (Auto) 7.6 % (1.0-10.0) Eosinophils (%) (Auto) 1.7 % (0.0-3.0) Basophils (%) (Auto) 0.4 % (0.0-2.0) Sodium Level 148 MMOL/L (136-145) H Potassium Level 3.7 MMOL/L (3.5-5.1) Chloride Level 115 MMOL/L (98-107) H Carbon Dioxide Level 26 MMOL/L (21-32) Anion Gap 7 mmol/L (5-15) Blood Urea Nitrogen 27 mg/dL (7-18) H Creatinine 1.2 MG/DL (0.55-1.30) Estimat Glomerular Filtration Rate mL/min (>60) Glucose Level 120 MG/DL (74-106) H Uric Acid 3.1 MG/DL (2.6-7.2) Calcium Level 7.8 MG/DL (8.5-10.1) L Phosphorus Level 2.6 MG/DL (2.5-4.9) Magnesium Level 2.2 MG/DL (1.8-2.4) Total Bilirubin 0.5 MG/DL (0.2-1.0) Gamma Glutamyl Transpeptidase 210 U/L (5-85) H Aspartate Amino Transf (AST/SGOT) 119 U/L (15-37) H Alanine Aminotransferase (ALT/SGPT) 243 U/L (12-78) H Alkaline Phosphatase 140 U/L (46-116) H Total Protein 6.6 G/DL (6.4-8.2) Albumin 2.1 G/DL (3.4-5.0) L Globulin 4.5 g/dL Albumin/Globulin Ratio 0.5 (1.0-2.7) L Ceruloplasmin Pending Hepatitis A IgM Antibody Pending Hepatitis B Surface Antigen Pending Hepatitis B Core IgM Antibody Pending Hepatitis C Antibody Pending Plan Problems: (1) Severe sepsis Assessment & Plan: leukocytosis, anemia, lactic acidosis, fevers IV Abx imaging noted and reviewed exam as below cont abx trend labs thank you will follow with recs (2) Malnutrition Assessment & Plan: DAILY ESTIMATED NEEDS: Needs based on Critical care, sepsis 71.8 kg 22-30 kcals/kg 0671-3860 total kcals 1.2-2 g protein/kg 86- 144 g total protein 25-30 mL/kg 1795- 2154 total fluid mLs NUTRITION DIAGNOSIS: * Swallowing difficulty R/T respiratory status and dysphagia as evidenced by pt is vent dep, on TF. * Altered nutrition related lab values r/t sepsis, clinical status, h/o Diabetes as evidenced by critically elev WBC (47.2), low Hgb (6.6), elev BNP, low BP (96/41), BG 191, POC 179. CURRENT TF: Jevity 1.2 @ 70mL/hr x 20hr - NOW NPO ENTERAL NUTRITION RECOMMENDATIONS: Vital 1.2 @55mL/hr x24 hrs to provide 1320mL, 1584kcal, 99g pro, 1071mL free H2O * As medically appropriate to feed, rec TF change to VITAL 1.2 for critical care. * Start Vital 1,2, @25mL, advance as tolerated 10ml/hr q4-6 hrs to goal * HOB over 30 degrees/ water flush per MD --- Low Hgb (6.6), NPO per GI-> rec trophic feeds when appropriate if pt remains hypotensive. ADDITIONAL RECOMMENDATIONS: * Per SNF: HT 68 inches WT 158 lbs + Daily calibrated bed scale wts * Change TF to Vital 1.2, as medically able to feed * Monitor lytes (replete as needed) * F/up w/ WC eval . (3) Sacral decubitus ulcer Assessment & Plan: Pt presented on admission with contractures and multiple pressure injuries. Partially opened DTPI L buttocks. Base of wound moist - viable with surrounding dark and fluctuant borders.(L)1.2cm x (W)1cm. Small amt of sanguineous exudate noted. No odor noted. Hyperpigmentation noted to sacrum. Historical scar from previous wound noted to L trochanter. Penile head retracted within foreskin and small wound noted within folds of foreskin. Wound is moist and viable. No odor or exudate noted. No erythema noted periwound. Resolving pressure injury plantar R heel. Base of wound 50% epithelialized, 50% moist and viable.(L)5.5cm x (W)6.5cm. Resolving pressure injury lateral L heel. Base of wound is moist and viable with surrounding hyperpigmentation.(L)0.6cm x (W)0.5cm. Scattered loose, dry brown skin noted to medial and posterior L heel. Tx.Plan: Apply Moisture Barrier Paste to L buttocks and sacrum. Cover with Optifoam drsg. Change every 3 days and prn. Cleanse head of penis with soap and water. Apply Bacitracin oint Twice Daily. Apply Betadine to R and L heel wounds. Cover each heel with Optifoam drsg. Daily and prn. APM/ABDELRAHMAN Mattress overlay. Reposition at least every 2hours and prn. Off-load heels with pillow. Don Carvalho Nov 17, 2018 12:58
[2018-11-17] MEDS ORDERED: D5 1/2NS 1000ml IV ONE (17:06)
[2018-11-17] MEDS ORDERED: NS 500ML ONE (17:06)
[2018-11-17] MEDS ORDERED: Tubing IV Secondary IV ONE (17:06)
[2018-11-17] MEDS ORDERED: NS 275ml ONE (17:06)
[2018-11-17] MEDS ORDERED: Tubing Blood Filter IV ONE (17:06)
--- NOTE | 2018-11-17 17:17 | Cardiology Report ---
APPROVED REPORT EKG Measurement Heart [id number] HI 156P39 [id number] Normal sinus rhythm Low voltage QRS Possible Inferior infarct, age undetermined Abnormal ECG
--- NOTE | 2018-11-17 17:33 | General Progress Note ---
Assessment/Plan Problem List: (1) Hypernatremia ICD Codes: E87.0 - Hyperosmolality and hypernatremia SNOMED: 36535857 (2) Rhabdomyolysis ICD Codes: M62.82 - Rhabdomyolysis SNOMED: 530030681 (3) Sacral decubitus ulcer ICD Codes: L89.159 - Pressure ulcer of sacral region, unspecified stage SNOMED: 653351658 (4) Severe sepsis ICD Codes: A41.9 - Sepsis, unspecified organism; R65.20 - Severe sepsis without septic shock SNOMED: 14270103 (5) Septic shock ICD Codes: A41.9 - Sepsis, unspecified organism; R65.21 - Severe sepsis with septic shock SNOMED: 90915778 (6) DM (7) Anemia ICD Codes: D64.9 - Anemia, unspecified SNOMED: 011063299 (8) Prostate enlargement ICD Codes: N40.0 - Benign prostatic hyperplasia without lower urinary tract symptoms SNOMED: 151759104 (9) Chronic renal disease ICD Codes: N18.9 - Chronic kidney disease, unspecified SNOMED: 510521614 (10) Ventilator dependence ICD Codes: Z99.11 - Dependence on respirator [ventilator] status SNOMED: 236800123 (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 - Gastrostomy status SNOMED: 071629661, 278457308 (12) Malnutrition ICD Codes: E46 - Unspecified protein-calorie malnutrition SNOMED: 76243732 Status: progressing, unchanged Assessment/Plan: leukocytosis is improving off pressors cri chf hypernatremia improving bph crabtree in afebrile no acute events Subjective ROS Limited/Unobtainable: Yes Allergies: Coded Allergies: TERAZOSIN (Verified Allergy, Unknown, 10/27/17) Objective Last 24 Hour Vital Signs Date Time Temp Pulse Resp B/P (MAP) Pulse Ox O2 Delivery O2 Flow Rate FiO2 11/17/18 17:23 91 36 40 11/17/18 16:00 Mechanical Ventilator 11/17/18 16:00 40 11/17/18 16:00 98.6 84 28 119/49 (72) 100 11/17/18 16:00 98 11/17/18 15:15 81 30 100 Mechanical Ventilator 40 81 32 40 11/17/18 15:00 85 39 142/54 (83) 100 11/17/18 14:00 87 39 113/54 (73) 100 11/17/18 13:00 101 37 136/54 (81) 95 11/17/18 12:39 83 29 40 11/17/18 12:00 40 11/17/18 12:00 79 11/17/18 12:00 98.4 84 33 141/66 (91) 98 11/17/18 12:00 Mechanical Ventilator 11/17/18 11:12 78 34 98 Mechanical Ventilator 40 78 31 40 11/17/18 11:00 79 30 124/53 (76) 97 11/17/18 10:00 79 30 117/51 (73) 97 11/17/18 09:26 80 26 40 11/17/18 09:00 81 28 117/49 (71) 98 11/17/18 08:00 86 11/17/18 08:00 Mechanical Ventilator 11/17/18 08:00 40 11/17/18 08:00 98.2 85 22 154/70 (98) 100 11/17/18 07:00 86 22 121/56 (77) 100 11/17/18 06:53 82 32 100 Mechanical Ventilator 40 82 31 40 11/17/18 06:00 99 29 122/90 (101) 100 11/17/18 05:29 97 33 40 11/17/18 05:00 83 26 116/55 (75) 100 11/17/18 04:00 98.6 80 22 111/48 (69) 100 11/17/18 04:00 Mechanical Ventilator 11/17/18 04:00 40 11/17/18 03:55 82 11/17/18 03:38 82 34 100 Mechanical Ventilator 40 80 34 40 11/17/18 03:00 81 30 115/53 (73) 99 11/17/18 02:00 79 30 114/52 (72) 99 11/17/18 01:08 80 29 40 11/17/18 01:00 82 22 112/53 (72) 100 11/17/18 00:00 98.9 80 26 108/56 (73) 100 11/17/18 00:00 78 11/17/18 00:00 Mechanical Ventilator 11/17/18 00:00 40 11/16/18 23:58 80 27 100 Mechanical Ventilator 40 80 23 40 11/16/18 23:00 88 28 111/53 (72) 100 11/16/18 22:00 71 30 129/78 (95) 100 11/16/18 21:00 85 32 120/53 (75) 100 11/16/18 20:51 80 39 40 11/16/18 20:30 92 34 154/84 (107) 100 11/16/18 20:00 Mechanical Ventilator 11/16/18 20:00 99.2 82 31 112/49 (70) 100 11/16/18 20:00 40 11/16/18 19:57 83 11/16/18 19:24 82 33 100 Mechanical Ventilator 40 82 30 40 11/16/18 19:00 77 31 116/56 (76) 100 11/16/18 18:43 155/55 11/16/18 18:00 77 28 155/55 (88) 100 Intake and Output 11/16/18 11/17/18 19:00 07:00 Intake Total 2115.5 ml 2691.5 ml Output Total 150 ml Balance 2115.5 ml 2541.5 ml Intake Free Water 260 ml IV Total 1495.5 ml 1511.5 ml Tube Feeding 620 ml 660 ml Other 260 ml Output Urine Total 150 ml # Voids 4 # Bowel Movements 3 3 Laboratory Tests 11/17/18 07:15: White Blood Count 16.2H, Red Blood Count 3.33L, Hemoglobin 9.2L, Hematocrit 28.4L, Mean Corpuscular Volume 85, Mean Corpuscular Hemoglobin 27.5, Mean Corpuscular Hemoglobin Concent 32.3, Red Cell Distribution Width 15.1H, Platelet Count 213, Mean Platelet Volume 7.3, Neutrophils (%) (Auto) 84.8H, Lymphocytes (%) (Auto) 5.4L, Monocytes (%) (Auto) 7.6, Eosinophils (%) (Auto) 1.7, Basophils (%) (Auto) 0.4, Sodium Level 148H, Potassium Level 3.7, Chloride Level 115H, Carbon Dioxide Level 26, Anion Gap 7, Blood Urea Nitrogen 27H, Creatinine 1.2, Estimat Glomerular Filtration Rate , Glucose Level 120H, Uric Acid 3.1, Calcium Level 7.8L, Phosphorus Level 2.6, Magnesium Level 2.2, Total Bilirubin 0.5, Gamma Glutamyl Transpeptidase 210H, Aspartate Amino Transf (AST/ SGOT) 119H, Alanine Aminotransferase (ALT/SGPT) 243H, Alkaline Phosphatase 140H , Total Protein 6.6, Albumin 2.1L, Globulin 4.5, Albumin/Globulin Ratio 0.5L, Ceruloplasmin [Pending], Hepatitis A IgM Antibody [Pending], Hepatitis B Surface Antigen [Pending], Hepatitis B Core IgM Antibody [Pending], Hepatitis C Antibody [Pending] Height (Feet): 5 Height (Inches): 8.00 Weight (Pounds): 161 General Appearance: confused Cardiovascular: normal peripheral pulses Respiratory/Chest: lungs clear Abdomen: soft Trish Matias MD Nov 17, 2018 17:33
--- NOTE | 2018-11-17 17:39 | Cardiology Report ---
APPROVED REPORT EKG Measurement Heart [id number] 146P39 [id number] Normal sinus rhythm Low voltage QRS Nonspecific ST and T wave abnormality Abnormal ECG
[2018-11-17] MEDS: Dyna-Hex 2% Top Sol 2oz TOPIC SCH (19:36)
[2018-11-17] MEDS: LORazepam Inj 2mg/ml 1ml IV PRN (20:08)
[2018-11-17] MEDS: Tamsulosin 0.4mg cap ORAL SCH (20:41)
[2018-11-18] VITALS (18 sets, daily range): BP systolic 109–154; BP diastolic 47–95
[2018-11-18] MEDS: LORazepam Inj 2mg/ml 1ml IV PRN ×2 (00:50→20:22)
[2018-11-18] MEDS: Albuterol/Ipratropium 3ml neb HHN SCH ×6 (03:09→22:54)
[2018-11-18] MEDS: Piperacillin/Tazobactam 3.375 GM in NS 110 ML IVPB SCH ×3 (03:32→20:23)
[2018-11-18] MEDS: D5 1/2NS 1,000 ML IV SCH ×3 (05:31→17:00)
[2018-11-18] MEDS: NovoLOG Insulin Flexpen SUBQ SCH ×3 (06:12→20:25)
[2018-11-18 06:17] LABS: BASOPHILS % (AUTO) 0.8 % (0.0-2.0); EOSINOPHILS % (AUTO) 2.4 % (0.0-3.0); HEMATOCRIT 28.7 % (42.0-52.0); HEMOGLOBIN 9.2 G/DL (14.2-18.0); LYMPHOCYTES % (AUTO) 10.4 % (20.0-45.0); MEAN CORPUSCULAR VOLUME 86 FL (80-99); MONOCYTES % (AUTO) 7.5 % (1.0-10.0); NEUTROPHILS % (AUTO) 78.9 % (45.0-75.0); PLATELET COUNT 206 K/UL (150-450); RED BLOOD COUNT 3.34 M/UL (4.70-6.10); RED CELL DISTRIBUTION WIDTH 15.1 % (11.6-14.8); WHITE BLOOD COUNT 11.9 K/UL (4.8-10.8)
[2018-11-18 06:34] LABS: ANION GAP 5 mmol/L (5-15); BLOOD UREA NITROGEN 20 mg/dL (7-18); CALCIUM 8.1 MG/DL (8.5-10.1); CARBON DIOXIDE 26 MMOL/L (21-32); CHLORIDE 114 MMOL/L (98-107); POTASSIUM 3.6 MMOL/L (3.5-5.1); SODIUM 145 MMOL/L (136-145)
--- NOTE | 2018-11-18 07:13 | General Progress Note ---
Assessment/Plan Problem List: (1) GIB (gastrointestinal bleeding) ICD Codes: K92.2 - Gastrointestinal hemorrhage, unspecified SNOMED: 97755438 (2) PEG (percutaneous endoscopic gastrostomy) status ICD Codes: Z93.1 - Gastrostomy status SNOMED: 028596573, 605486571 (3) Chronic renal disease ICD Codes: N18.9 - Chronic kidney disease, unspecified SNOMED: 106421229 (4) Prostate enlargement ICD Codes: N40.0 - Benign prostatic hyperplasia without lower urinary tract symptoms SNOMED: 523533471 (5) Anemia ICD Codes: D64.9 - Anemia, unspecified SNOMED: 243159277 (6) Septic shock ICD Codes: A41.9 - Sepsis, unspecified organism; R65.21 - Severe sepsis with septic shock SNOMED: 32309383 (7) Gastrostomy tube dependent ICD Codes: Z93.1 - Gastrostomy status SNOMED: 823179332, 013432152 Status: progressing, unchanged Assessment/Plan: ppi prn blood transfusion abx per ID now off pressors GTF EGD on hold given stable H&H Subjective ROS Limited/Unobtainable: No Allergies: Coded Allergies: TERAZOSIN (Verified Allergy, Unknown, 10/27/17) Objective Last 24 Hour Vital Signs Date Time Temp Pulse Resp B/P (MAP) Pulse Ox O2 Delivery O2 Flow Rate FiO2 11/18/18 06:00 84 31 117/47 (70) 100 11/18/18 05:08 85 32 40 11/18/18 05:00 81 21 124/59 (80) 100 11/18/18 04:00 Mechanical Ventilator 11/18/18 04:00 98.2 78 22 123/57 (79) 100 11/18/18 04:00 40 11/18/18 03:09 77 27 100 Mechanical Ventilator 40 77 27 40 11/18/18 03:05 74 11/18/18 03:00 77 28 114/52 (72) 100 11/18/18 02:00 76 27 109/47 (67) 100 11/18/18 01:08 87 25 40 11/18/18 01:00 85 36 119/49 (72) 98 11/18/18 00:00 40 11/18/18 00:00 98.7 87 29 116/57 (76) 100 11/18/18 00:00 Mechanical Ventilator 11/17/18 23:40 98 11/17/18 23:05 76 29 99 Mechanical Ventilator 40 76 29 40 11/17/18 23:00 77 29 125/54 (77) 98 11/17/18 22:00 79 31 119/54 (75) 98 11/17/18 21:04 80 31 40 11/17/18 21:00 76 43 139/58 (85) 99 11/17/18 20:00 98.8 85 33 126/65 (85) 100 11/17/18 20:00 40 11/17/18 20:00 Mechanical Ventilator 11/17/18 19:32 83 11/17/18 19:01 82 34 100 Mechanical Ventilator 40 82 34 40 11/17/18 19:00 85 33 132/51 (78) 100 11/17/18 18:00 84 33 137/56 (83) 100 11/17/18 17:23 91 36 40 11/17/18 17:00 82 31 130/56 (80) 99 11/17/18 16:00 Mechanical Ventilator 11/17/18 16:00 40 11/17/18 16:00 98.6 84 28 119/49 (72) 100 11/17/18 16:00 98 11/17/18 15:15 81 30 100 Mechanical Ventilator 40 81 32 40 11/17/18 15:00 85 39 142/54 (83) 100 11/17/18 14:00 87 39 113/54 (73) 100 11/17/18 13:00 101 37 136/54 (81) 95 11/17/18 12:39 83 29 40 11/17/18 12:00 40 11/17/18 12:00 79 11/17/18 12:00 98.4 84 33 141/66 (91) 98 11/17/18 12:00 Mechanical Ventilator 11/17/18 11:12 78 34 98 Mechanical Ventilator 40 78 31 40 11/17/18 11:00 79 30 124/53 (76) 97 11/17/18 10:00 79 30 117/51 (73) 97 11/17/18 09:26 80 26 40 11/17/18 09:00 81 28 117/49 (71) 98 11/17/18 08:00 86 11/17/18 08:00 Mechanical Ventilator 11/17/18 08:00 40 11/17/18 08:00 98.2 85 22 154/70 (98) 100 Intake and Output 11/17/18 11/18/18 19:00 07:00 Intake Total 2490.0 ml 2696.0 ml Output Total 305 ml 250 ml Balance 2185.0 ml 2446.0 ml Intake Free Water 520 ml 260 ml IV Total 1310.0 ml 1516.0 ml Tube Feeding 660 ml 660 ml Other 260 ml Output Urine Total 305 ml 250 ml # Voids 3 # Bowel Movements 2 2 Laboratory Tests 11/17/18 07:15: White Blood Count 16.2H, Red Blood Count 3.33L, Hemoglobin 9.2L, Hematocrit 28.4L, Mean Corpuscular Volume 85, Mean Corpuscular Hemoglobin 27.5, Mean Corpuscular Hemoglobin Concent 32.3, Red Cell Distribution Width 15.1H, Platelet Count 213, Mean Platelet Volume 7.3, Neutrophils (%) (Auto) 84.8H, Lymphocytes (%) (Auto) 5.4L, Monocytes (%) (Auto) 7.6, Eosinophils (%) (Auto) 1.7, Basophils (%) (Auto) 0.4, Sodium Level 148H, Potassium Level 3.7, Chloride Level 115H, Carbon Dioxide Level 26, Anion Gap 7, Blood Urea Nitrogen 27H, Creatinine 1.2, Estimat Glomerular Filtration Rate , Glucose Level 120H, Uric Acid 3.1, Calcium Level 7.8L, Phosphorus Level 2.6, Magnesium Level 2.2, Total Bilirubin 0.5, Gamma Glutamyl Transpeptidase 210H, Aspartate Amino Transf (AST/ SGOT) 119H, Alanine Aminotransferase (ALT/SGPT) 243H, Alkaline Phosphatase 140H , Total Protein 6.6, Albumin 2.1L, Globulin 4.5, Albumin/Globulin Ratio 0.5L, Ceruloplasmin [Pending], Hepatitis A IgM Antibody [Pending], Hepatitis B Surface Antigen [Pending], Hepatitis B Core IgM Antibody [Pending], Hepatitis C Antibody [Pending] 11/18/18 05:25: White Blood Count 11.9H, Red Blood Count 3.34L, Hemoglobin 9.2L, Hematocrit 28.7L, Mean Corpuscular Volume 86, Mean Corpuscular Hemoglobin 27.5, Mean Corpuscular Hemoglobin Concent 32.0, Red Cell Distribution Width 15.1H, Platelet Count 206, Mean Platelet Volume 7.3, Neutrophils (%) (Auto) 78.9H, Lymphocytes (%) (Auto) 10.4L, Monocytes (%) (Auto) 7.5, Eosinophils (%) (Auto) 2.4, Basophils (%) (Auto) 0.8, Sodium Level 145, Potassium Level 3.6, Chloride Level 114H, Carbon Dioxide Level 26, Anion Gap 5, Blood Urea Nitrogen 20H, Creatinine 1.0, Estimat Glomerular Filtration Rate , Glucose Level 134H, Calcium Level 8.1L Height (Feet): 5 Height (Inches): 8.00 Weight (Pounds): 163 General Appearance: lethargic EENT: PERRL/EOMI Neck: supple Cardiovascular: normal rate Respiratory/Chest: decreased breath sounds Abdomen: normal bowel sounds, non tender, soft Extremities: non-tender Juan Coronel MD Nov 18, 2018 07:13
[2018-11-18] MEDS: Pantoprazole Inj IVP SCH ×2 (08:19→20:24)
[2018-11-18] MEDS: ZyPREXA Zydis 5mg tab GT SCH (08:19)
--- NOTE | 2018-11-18 08:32 | Critical Care Progress Note ---
Assessment/Plan Assessment/Plan Impression: ho Pneumonia Ventilator dependant respiratory failure chronic respiratory failure Severe sepsis -history of NSTEMI Anemia Dysphagia s/p G tube Chronic wounds Dementia Organic Brain Syndrome Diabetes Chronic renal disease BPH Penile wound CHF H/o Hypertension severe Protein Calorie Malnutrition Plan IV antibiotics pressors as needed HHN Q4 on full vent support- reviewed settings monitor oxygen needs- stable currently Transfuse PRN monitor cultures Abdominal US noted DVT and PUD prophylaxis Gtube feeds as is monitor residuals Aspiration precautions Full Code medications/laboratory data/nursing notes/ICU care reviewed in detail note reviewed and edited care discussed with RN and RT ICU time spent 42 minutes Critical Care - Subjective Interval Events: care in ICU reviewed on vent all findings reviewed ICU noted ROS Limited/Unobtainable: Yes Condition: critical EKG Rhythm: Sinus Rhythm Residuals: minimal Tube Feeding Tolerated: yes I&O: Intake and Output 11/17/18 11/18/18 19:00 07:00 Intake Total 2490.0 ml 2696.0 ml Output Total 305 ml 250 ml Balance 2185.0 ml 2446.0 ml Intake Free Water 520 ml 260 ml IV Total 1310.0 ml 1516.0 ml Tube Feeding 660 ml 660 ml Other 260 ml Output Urine Total 305 ml 250 ml # Voids 3 # Bowel Movements 2 2 Critical Care - Objective Last 24 Hour Vital Signs Date Time Temp Pulse Resp B/P (MAP) Pulse Ox O2 Delivery O2 Flow Rate FiO2 11/18/18 08:00 40 11/18/18 08:00 Mechanical Ventilator 11/18/18 08:00 90 31 153/74 (100) 100 11/18/18 07:23 80 39 100 Mechanical Ventilator 40 82 34 40 11/18/18 07:00 80 34 129/61 (83) 100 11/18/18 06:00 84 31 117/47 (70) 100 11/18/18 05:08 85 32 40 11/18/18 05:00 81 21 124/59 (80) 100 11/18/18 04:00 Mechanical Ventilator 11/18/18 04:00 98.2 78 22 123/57 (79) 100 11/18/18 04:00 40 11/18/18 03:09 77 27 100 Mechanical Ventilator 40 77 27 40 11/18/18 03:05 74 11/18/18 03:00 77 28 114/52 (72) 100 11/18/18 02:00 76 27 109/47 (67) 100 11/18/18 01:08 87 25 40 11/18/18 01:00 85 36 119/49 (72) 98 11/18/18 00:00 40 11/18/18 00:00 98.7 87 29 116/57 (76) 100 11/18/18 00:00 Mechanical Ventilator 11/17/18 23:40 98 11/17/18 23:05 76 29 99 Mechanical Ventilator 40 76 29 40 11/17/18 23:00 77 29 125/54 (77) 98 11/17/18 22:00 79 31 119/54 (75) 98 11/17/18 21:04 80 31 40 11/17/18 21:00 76 43 139/58 (85) 99 11/17/18 20:00 98.8 85 33 126/65 (85) 100 11/17/18 20:00 40 11/17/18 20:00 Mechanical Ventilator 11/17/18 19:32 83 11/17/18 19:01 82 34 100 Mechanical Ventilator 40 82 34 40 11/17/18 19:00 85 33 132/51 (78) 100 11/17/18 18:00 84 33 137/56 (83) 100 11/17/18 17:23 91 36 40 11/17/18 17:00 82 31 130/56 (80) 99 11/17/18 16:00 Mechanical Ventilator 11/17/18 16:00 40 11/17/18 16:00 98.6 84 28 119/49 (72) 100 11/17/18 16:00 98 11/17/18 15:15 81 30 100 Mechanical Ventilator 40 81 32 40 11/17/18 15:00 85 39 142/54 (83) 100 11/17/18 14:00 87 39 113/54 (73) 100 11/17/18 13:00 101 37 136/54 (81) 95 11/17/18 12:39 83 29 40 11/17/18 12:00 40 11/17/18 12:00 79 11/17/18 12:00 98.4 84 33 141/66 (91) 98 11/17/18 12:00 Mechanical Ventilator 11/17/18 11:12 78 34 98 Mechanical Ventilator 40 78 31 40 11/17/18 11:00 79 30 124/53 (76) 97 11/17/18 10:00 79 30 117/51 (73) 97 11/17/18 09:26 80 26 40 11/17/18 09:00 81 28 117/49 (71) 98 Objective: WDWN NAD on vent reduced breath sounds bilaterally with scattered rhonchi [id number] without MRG NABS nontender no HSM; GT no CC mild edema nonfocal reduced LOC reviewed and edited Micro: Microbiology Date/Time Source Procedure Growth Status 11/16/18 02:20 Urine,Clean Catch Urine Culture - Final Mixed Gram Positive Organism Complete Accucheck: 137 Chele Wolfe MD Nov 18, 2018 08:32
[2018-11-18] MEDS: Doxycycline Hyclate 100 MG in D5W 110 ML IV SCH ×2 (08:33→20:24)
[2018-11-18] MEDS ORDERED: D5 1/2NS 1000ml IV ONE (09:40)
[2018-11-18] MEDS ORDERED: Tubing IV Secondary IV ONE (09:40)
[2018-11-18] MEDS ORDERED: Sterile Water Irrig 1000ml IRRIG ONE ×2 (09:40→09:55)
[2018-11-18] MEDS ORDERED: NS 275ml ONE ×2 (09:40→09:55)
--- NOTE | 2018-11-18 09:46 | Nephrology Progress Note ---
Assessment/Plan Problem List: (1) Septic shock (2) Ventilator dependence (3) Renal failure (ARF), acute on chronic (4) Prostate enlargement (5) Anemia Assessment Septic Shock Acute renal failure CKD underlying BPH Sever Anemia Chronic trach-Vent DM HypoAlbuminemia HyperNatremia Dementia Troponin elevation Plan labs reviewed Fluid challenge avoid Nephrotoxics transfuse crabtree monitor urine out put and renal parameters per orders Subjective ROS Limited/Unobtainable: Yes Objective Objective Last 24 Hour Vital Signs Date Time Temp Pulse Resp B/P (MAP) Pulse Ox O2 Delivery O2 Flow Rate FiO2 11/18/18 09:01 90 31 40 11/18/18 08:00 40 11/18/18 08:00 Mechanical Ventilator 11/18/18 08:00 90 31 153/74 (100) 100 11/18/18 07:23 80 39 100 Mechanical Ventilator 40 82 34 40 11/18/18 07:00 80 34 129/61 (83) 100 11/18/18 06:00 84 31 117/47 (70) 100 11/18/18 05:08 85 32 40 11/18/18 05:00 81 21 124/59 (80) 100 11/18/18 04:00 Mechanical Ventilator 11/18/18 04:00 98.2 78 22 123/57 (79) 100 11/18/18 04:00 40 11/18/18 03:09 77 27 100 Mechanical Ventilator 40 77 27 40 11/18/18 03:05 74 11/18/18 03:00 77 28 114/52 (72) 100 11/18/18 02:00 76 27 109/47 (67) 100 11/18/18 01:08 87 25 40 11/18/18 01:00 85 36 119/49 (72) 98 11/18/18 00:00 40 11/18/18 00:00 98.7 87 29 116/57 (76) 100 11/18/18 00:00 Mechanical Ventilator 11/17/18 23:40 98 11/17/18 23:05 76 29 99 Mechanical Ventilator 40 76 29 40 11/17/18 23:00 77 29 125/54 (77) 98 11/17/18 22:00 79 31 119/54 (75) 98 11/17/18 21:04 80 31 40 11/17/18 21:00 76 43 139/58 (85) 99 11/17/18 20:00 98.8 85 33 126/65 (85) 100 11/17/18 20:00 40 11/17/18 20:00 Mechanical Ventilator 11/17/18 19:32 83 11/17/18 19:01 82 34 100 Mechanical Ventilator 40 82 34 40 11/17/18 19:00 85 33 132/51 (78) 100 11/17/18 18:00 84 33 137/56 (83) 100 11/17/18 17:23 91 36 40 11/17/18 17:00 82 31 130/56 (80) 99 11/17/18 16:00 Mechanical Ventilator 11/17/18 16:00 40 11/17/18 16:00 98.6 84 28 119/49 (72) 100 11/17/18 16:00 98 11/17/18 15:15 81 30 100 Mechanical Ventilator 40 81 32 40 11/17/18 15:00 85 39 142/54 (83) 100 11/17/18 14:00 87 39 113/54 (73) 100 11/17/18 13:00 101 37 136/54 (81) 95 11/17/18 12:39 83 29 40 11/17/18 12:00 40 11/17/18 12:00 79 11/17/18 12:00 98.4 84 33 141/66 (91) 98 11/17/18 12:00 Mechanical Ventilator 11/17/18 11:12 78 34 98 Mechanical Ventilator 40 78 31 40 11/17/18 11:00 79 30 124/53 (76) 97 11/17/18 10:00 79 30 117/51 (73) 97 Intake and Output 11/17/18 11/18/18 19:00 07:00 Intake Total 2490.0 ml 2696.0 ml Output Total 305 ml 250 ml Balance 2185.0 ml 2446.0 ml Intake Free Water 520 ml 260 ml IV Total 1310.0 ml 1516.0 ml Tube Feeding 660 ml 660 ml Other 260 ml Output Urine Total 305 ml 250 ml # Voids 3 # Bowel Movements 2 2 Laboratory Tests 11/18/18 05:25: White Blood Count 11.9H, Red Blood Count 3.34L, Hemoglobin 9.2L, Hematocrit 28.7L, Mean Corpuscular Volume 86, Mean Corpuscular Hemoglobin 27.5, Mean Corpuscular Hemoglobin Concent 32.0, Red Cell Distribution Width 15.1H, Platelet Count 206, Mean Platelet Volume 7.3, Neutrophils (%) (Auto) 78.9H, Lymphocytes (%) (Auto) 10.4L, Monocytes (%) (Auto) 7.5, Eosinophils (%) (Auto) 2.4, Basophils (%) (Auto) 0.8, Sodium Level 145, Potassium Level 3.6, Chloride Level 114H, Carbon Dioxide Level 26, Anion Gap 5, Blood Urea Nitrogen 20H, Creatinine 1.0, Estimat Glomerular Filtration Rate , Glucose Level 134H, Calcium Level 8.1L Height (Feet): 5 Height (Inches): 8.00 Weight (Pounds): 163 General Appearance: no apparent distress EENT: other - trach vent Cardiovascular: normal rate Respiratory/Chest: decreased breath sounds Abdomen: distended Objective no change Randolph Fernandes MD Nov 18, 2018 09:46
--- NOTE | 2018-11-18 10:06 | Infectious Diseases Prog Note ---
Assessment/Plan Assessment/Plan IMPRESSION: Sepsis with septic shock. Pyuria/ UTI Pneumonia BPH, ventilator-dependent respiratory failure Leukemoid reaction,resolved Acute renal failure, improving Diabetes mellitus, anemia, hypoxemic respiratory failure, dementia. 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 Discontinue vancomycin Subjective ROS Limited/Unobtainable: Yes Constitutional: Denies: fever Allergies: Coded Allergies: TERAZOSIN (Verified Allergy, Unknown, 10/27/17) Objective Vital Signs Last 24 Hour Vital Signs Date Time Temp Pulse Resp B/P (MAP) Pulse Ox O2 Delivery O2 Flow Rate FiO2 11/18/18 09:01 90 31 40 11/18/18 08:00 40 11/18/18 08:00 Mechanical Ventilator 11/18/18 08:00 90 31 153/74 (100) 100 11/18/18 07:23 80 39 100 Mechanical Ventilator 40 82 34 40 11/18/18 07:00 80 34 129/61 (83) 100 11/18/18 06:00 84 31 117/47 (70) 100 11/18/18 05:08 85 32 40 11/18/18 05:00 81 21 124/59 (80) 100 11/18/18 04:00 Mechanical Ventilator 11/18/18 04:00 98.2 78 22 123/57 (79) 100 11/18/18 04:00 40 11/18/18 03:09 77 27 100 Mechanical Ventilator 40 77 27 40 11/18/18 03:05 74 11/18/18 03:00 77 28 114/52 (72) 100 11/18/18 02:00 76 27 109/47 (67) 100 11/18/18 01:08 87 25 40 11/18/18 01:00 85 36 119/49 (72) 98 11/18/18 00:00 40 11/18/18 00:00 98.7 87 29 116/57 (76) 100 11/18/18 00:00 Mechanical Ventilator 11/17/18 23:40 98 11/17/18 23:05 76 29 99 Mechanical Ventilator 40 76 29 40 11/17/18 23:00 77 29 125/54 (77) 98 11/17/18 22:00 79 31 119/54 (75) 98 11/17/18 21:04 80 31 40 11/17/18 21:00 76 43 139/58 (85) 99 11/17/18 20:00 98.8 85 33 126/65 (85) 100 11/17/18 20:00 40 11/17/18 20:00 Mechanical Ventilator 11/17/18 19:32 83 11/17/18 19:01 82 34 100 Mechanical Ventilator 40 82 34 40 11/17/18 19:00 85 33 132/51 (78) 100 11/17/18 18:00 84 33 137/56 (83) 100 11/17/18 17:23 91 36 40 11/17/18 17:00 82 31 130/56 (80) 99 11/17/18 16:00 Mechanical Ventilator 11/17/18 16:00 40 11/17/18 16:00 98.6 84 28 119/49 (72) 100 11/17/18 16:00 98 11/17/18 15:15 81 30 100 Mechanical Ventilator 40 81 32 40 11/17/18 15:00 85 39 142/54 (83) 100 11/17/18 14:00 87 39 113/54 (73) 100 11/17/18 13:00 101 37 136/54 (81) 95 11/17/18 12:39 83 29 40 11/17/18 12:00 40 11/17/18 12:00 79 11/17/18 12:00 98.4 84 33 141/66 (91) 98 11/17/18 12:00 Mechanical Ventilator 11/17/18 11:12 78 34 98 Mechanical Ventilator 40 78 31 40 11/17/18 11:00 79 30 124/53 (76) 97 Height (Feet): 5 Height (Inches): 8.00 Weight (Pounds): 163 HEENT: mucous membranes moist, status post trach Respiratory/Chest: decreased breath sounds, other - on ventilator Cardiovascular: normal rate Abdomen: distended, other - GT feeding Extremities: other - hands edema, PICC line Neurologic/Psychiatric: unresponsiveness Microbiology Date/Time Source Procedure Growth Status 11/16/18 02:20 Urine,Clean Catch Urine Culture - Final Mixed Gram Positive Organism Complete Laboratory Tests Test 11/18/18 05:25 White Blood Count 11.9 K/UL (4.8-10.8) H Red Blood Count 3.34 M/UL (4.70-6.10) L Hemoglobin 9.2 G/DL (14.2-18.0) L Hematocrit 28.7 % (42.0-52.0) L Mean Corpuscular Volume 86 FL (80-99) Mean Corpuscular Hemoglobin 27.5 PG (27.0-31.0) Mean Corpuscular Hemoglobin Concent 32.0 G/DL (32.0-36.0) Red Cell Distribution Width 15.1 % (11.6-14.8) H Platelet Count 206 K/UL (150-450) Mean Platelet Volume 7.3 FL (6.5-10.1) Neutrophils (%) (Auto) 78.9 % (45.0-75.0) H Lymphocytes (%) (Auto) 10.4 % (20.0-45.0) L Monocytes (%) (Auto) 7.5 % (1.0-10.0) Eosinophils (%) (Auto) 2.4 % (0.0-3.0) Basophils (%) (Auto) 0.8 % (0.0-2.0) Sodium Level 145 MMOL/L (136-145) Potassium Level 3.6 MMOL/L (3.5-5.1) Chloride Level 114 MMOL/L (98-107) H Carbon Dioxide Level 26 MMOL/L (21-32) Anion Gap 5 mmol/L (5-15) Blood Urea Nitrogen 20 mg/dL (7-18) H Creatinine 1.0 MG/DL (0.55-1.30) Estimat Glomerular Filtration Rate mL/min (>60) Glucose Level 134 MG/DL (74-106) H Calcium Level 8.1 MG/DL (8.5-10.1) L Current Medications Medications (Trade) Dose Ordered Sig/Ruthie Route PRN Reason Start Time Stop Time Status Last Admin Dose Admin Acetaminophen (Tylenol) 650 mg Q6H PRN NG Mild Pain/Temp > 100.5 11/15/18 05:45 12/15/18 05:44 11/15/18 20:48 Acetaminophen/ Hydrocodone Bitart ([place] 5/325) 1 tab Q4H PRN ORAL Moderate Pain (Pain Scale 4-6) 11/15/18 05:45 11/22/18 05:44 Albuterol/ Ipratropium (Albuterol/ Ipratropium) 3 ml Q4HRT N 11/15/18 07:00 11/20/18 06:59 11/18/18 07:26 Bisacodyl (Dulcolax) 10 mg DAILYPRN PRN RECTAL Constipation 11/15/18 05:45 12/15/18 05:44 Chlorhexidine Gluconate (Rachael-Hex 2%) 1 applic DAILY@2000 TOPIC 11/15/18 20:00 12/15/18 19:59 11/17/18 19:36 Dextrose (Dextrose 50%) 25 ml Q30M PRN IV Hypoglycemia 11/15/18 05:45 12/15/18 05:44 Dextrose (Dextrose 50%) 50 ml Q30M PRN IV Hypoglycemia 11/15/18 05:45 12/15/18 05:44 Dextrose/Sodium Chloride 1,000 ml @ 100 mls/hr Q10H IV 11/15/18 08:00 12/15/18 07:59 11/18/18 05:31 Doxycycline Hyclate 100 mg/ Dextrose 110 ml @ 110 mls/hr Q12HR IV 11/15/18 09:00 11/22/18 08:59 11/18/18 08:33 Hydromorphone HCl (Dilaudid) 0.5 mg Q4H PRN IVP For Pain 11/15/18 05:45 11/22/18 05:44 Insulin Aspart (NovoLOG) BEFORE MEALS AND HS SUBQ 11/15/18 06:30 12/15/18 06:29 11/18/18 06:12 Lorazepam (Ativan 2mg/ml 1ml) 0.5 mg Q4H PRN IV For Anxiety 11/15/18 05:45 11/22/18 05:44 11/18/18 00:50 Norepinephrine Bitartrate 4 mg/ Dextrose 250 ml @ 0 mls/hr Q24H IV 11/15/18 19:00 12/15/18 18:59 Olanzapine (ZyPREXA Zydis) 7.5 mg DAILY GT 11/15/18 09:00 12/15/18 08:59 11/18/18 08:19 Pantoprazole (Protonix) 40 mg EVERY 12 HOURS IVP 11/15/18 09:00 12/15/18 08:59 11/18/18 08:19 Piperacillin Sod/ Tazobactam Sod 3.375 gm/Sodium Chloride 110 ml @ 27.5 mls/hr Q8H IVPB 11/15/18 12:00 11/22/18 11:59 11/18/18 03:32 Quetiapine Fumarate (SEROquel) 50 mg DAILY GT 11/15/18 09:00 12/15/18 08:59 11/18/18 08:19 Tamsulosin HCl (Flomax) 0.4 mg BEDTIME ORAL 11/15/18 21:00 12/15/18 20:59 11/17/18 20:41 Vancomycin HCl (Vanco rx to dose) 1 ea DAILY PRN MISC Per rx protocol 11/15/18 05:45 12/15/18 05:44 Vancomycin HCl 750 mg/Sodium Chloride 275 ml @ 183.333 mls/hr Q24H IVPB 11/16/18 11:00 11/21/18 10:59 11/17/18 11:03 Anam Cruz MD Nov 18, 2018 10:06
--- NOTE | 2018-11-18 12:06 | Cardiology Report ---
APPROVED REPORT EXAM: Two-dimensional and M-mode echocardiogram with Doppler and color Doppler. INDICATION Dyspnea M-Mode DIMENSIONS IVSd1.5 (0.7-1.1cm)Left Atrium (MM)3.3 (1.6-4.0cm) LVDd5.6 (3.5-5.6cm)Aortic Root3.7 (2.0-3.7cm) PWd1.4 (0.7-1.1cm)Aortic Cusp Exc.2.1 (1.5-2.0cm) IVSs1.3 cm LVDs3.0 (2.5-4.0cm) PWs1.2 cm Technically difficult study due to contracted patient. Normal left ventricular chamber size, systolic function and wall motion to extent visualized. Left ventricular ejection fraction estimated to be 55%. No left ventricular hypertrophy. Anterior Echo-free space, may be due to pericardial fat or effusion. Left atrial enlargement . Right cardiac chamber sizes are within normal limits. Focal aortic valve sclerosis with normal cusp excursion. Thickened mitral valve leaflets with normal excursion. Mitral annulus and aortic root calcification. Normal pulmonic valve structure. Normal tricuspid valve structure. IVC at normal size with physiologic collapse . A color flow and spectral Doppler study was performed and revealed: Trace aortic insufficiency. Trace mitral regurgitation. Mitral inflow indicates normal left ventricular diastolic function Trace tricuspid regurgitation. Tricuspid systolic velocities suggests peak right ventricular systolic pressure of 47mmHg,consistent with moderate pulmonary hypertension.
--- NOTE | 2018-11-18 12:24 | Diagnostic Imaging Report ---
EXAM: XR Chest, 1 View CLINICAL HISTORY: TUBE PLCMT TECHNIQUE: Frontal view of the chest. COMPARISON: Chest radiograph on 11 15 2018 FINDINGS: Hardware: Tracheostomy tube terminates in the region of the upper thoracic trachea. Probable G-tube projected over the upper abdomen. Lungs pleura: Diffuse hazy and interstitial opacities are concerning for pulmonary edema and pulmonary vasculature congestion. Bilateral pleural effusions with associated atelectasis versus pneumonia. Heart mediastinum: Stable enlargement of the cardiomediastinal silhouette. Soft tissues: Unremarkable. Bones: No acute fracture. Negative changes of the spine. Upper abdomen: Normal. IMPRESSION: 1. Tracheostomy tube terminates in the region of the upper thoracic trachea. Probable G-tube projected over the upper abdomen. 2. Diffuse hazy and interstitial opacities are concerning for pulmonary edema and pulmonary vasculature congestion. Bilateral pleural effusions with associated atelectasis versus pneumonia.
--- NOTE | 2018-11-18 14:04 | Hematology/Onc Progress Note ---
Assessment/Plan Assessment/Plan ASSESSMENT AND RECOMMENDATIONS # Leukocytosis. Likely related to underlying infection with sepsis and elevated severely on admission --> Imaging has been reviewed. Shows cxr left lung inil/v edema --> Blood cs and urine cx are reviewed --> Has been started on abx, empiric tx --> PERIPHERAL SMEAR SHOWS ATYPICAL LYMPHOCYTES --> Flow cytometry ordered with pathologist --> wbc 52k-->47k-->29k->16-->12 # Anemia of chronic disease, due to underlying chronic medical issues, multifactorial. --> Anemia w/u has been ordered --> with hyperferritinemia --> No evidence of hemolysis noted, peripheral smear has been reviewed --> Hgb goal >7. Transfuse as needed --> hgb trend 7.5-->6.6->9.1-->9.2 --> 2 units transfuse on 11/15 --> will need to follow as outpatient and may need chelation therapy # Failure to thrive (FTT) - decreased bmi and low protein --> cea 4.3 --> will obtain q3 day caloric counts --> consider mirtazapine as appetite stimulant --> GI consult on a prn basis, as needed for endosc # Sepsis. # PEG. # Malnutrition. The timing of this note does not necessarily reflect the time of the patient was seen. Greatly appreciate consultation. Subjective HEENT: Denies: no symptoms, eye pain, blurred vision, tearing, double vision, ear pain, ear discharge, nose pain, nose congestion, throat pain, throat swelling, mouth pain, mouth swelling, other Cardiovascular: Denies: no symptoms, chest pain, edema, irregular heart rate, lightheadedness, palpitations, syncope, other Respiratory: Denies: no symptoms, cough, shortness of breath, SOB with excertion, SOB at rest, sputum, wheezing, other Gastrointestinal/Abdominal: Denies: no symptoms, abdomen distended, abdominal pain, black stools, tarry stools, blood in stool, constipated, diarrhea, difficulty swallowing, nausea, poor appetite, poor fluid intake, rectal bleeding , vomiting, other Genitourinary: Denies: no symptoms, burning, discharge, frequency, flank pain, hematuria, incontinence, pain, urgency, other Neurologic/Psychiatric: Denies: no symptoms, anxiety, depressed, emotional problems, headache, numbness, paresthesia, pre-existing deficit, seizure, tingling, tremors, weakness, other Endocrine: Denies: no symptoms, excessive sweating, flushing, intolerance to cold, intolerance to heat, increased hunger, increased thirst, increased urine, unexplained weight gain, unexplained weight loss, other Hematologic/Lymphatic: Denies: no symptoms, anemia, easy bleeding, easy bruising, adenopathy, other Allergies: Coded Allergies: TERAZOSIN (Verified Allergy, Unknown, 10/27/17) Subjective 11/16: in the icu, is off pressors, doing better, no bleeding 11/18: no bleeding, remains on doxy and zosyn, no bleeding reported Objective Objective Current Medications Medications (Trade) Dose Ordered Sig/Ruthie Route PRN Reason Start Time Stop Time Status Last Admin Dose Admin Acetaminophen (Tylenol) 650 mg Q6H PRN NG Mild Pain/Temp > 100.5 11/15/18 05:45 12/15/18 05:44 11/15/18 20:48 Acetaminophen/ Hydrocodone Bitart ([place] 5/325) 1 tab Q4H PRN ORAL Moderate Pain (Pain Scale 4-6) 11/15/18 05:45 11/22/18 05:44 Albuterol/ Ipratropium (Albuterol/ Ipratropium) 3 ml Q4HRT HHN 11/15/18 07:00 11/20/18 06:59 11/18/18 11:12 Bisacodyl (Dulcolax) 10 mg DAILYPRN PRN RECTAL Constipation 11/15/18 05:45 12/15/18 05:44 Chlorhexidine Gluconate (Rachael-Hex 2%) 1 applic DAILY@2000 TOPIC 11/15/18 20:00 12/15/18 19:59 11/17/18 19:36 Dextrose (Dextrose 50%) 25 ml Q30M PRN IV Hypoglycemia 11/15/18 05:45 12/15/18 05:44 Dextrose (Dextrose 50%) 50 ml Q30M PRN IV Hypoglycemia 11/15/18 05:45 12/15/18 05:44 Dextrose/Sodium Chloride 1,000 ml @ 100 mls/hr Q10H IV 11/15/18 08:00 12/15/18 07:59 11/18/18 05:31 Doxycycline Hyclate 100 mg/ Dextrose 110 ml @ 110 mls/hr Q12HR IV 11/15/18 09:00 11/22/18 08:59 11/18/18 08:33 Hydromorphone HCl (Dilaudid) 0.5 mg Q4H PRN IVP For Pain 11/15/18 05:45 11/22/18 05:44 Insulin Aspart (NovoLOG) BEFORE MEALS AND HS SUBQ 11/15/18 06:30 12/15/18 06:29 11/18/18 12:27 Lorazepam (Ativan 2mg/ml 1ml) 0.5 mg Q4H PRN IV For Anxiety 11/15/18 05:45 11/22/18 05:44 11/18/18 00:50 Norepinephrine Bitartrate 4 mg/ Dextrose 250 ml @ 0 mls/hr Q24H IV 11/15/18 19:00 12/15/18 18:59 Olanzapine (ZyPREXA Zydis) 7.5 mg DAILY GT 11/15/18 09:00 12/15/18 08:59 11/18/18 08:19 Pantoprazole (Protonix) 40 mg EVERY 12 HOURS IVP 11/15/18 09:00 12/15/18 08:59 11/18/18 08:19 Piperacillin Sod/ Tazobactam Sod 3.375 gm/Sodium Chloride 110 ml @ 27.5 mls/hr Q8H IVPB 11/15/18 12:00 11/22/18 11:59 11/18/18 12:27 Quetiapine Fumarate (SEROquel) 50 mg DAILY GT 11/15/18 09:00 12/15/18 08:59 11/18/18 08:19 Tamsulosin HCl (Flomax) 0.4 mg BEDTIME ORAL 11/15/18 21:00 12/15/18 20:59 11/17/18 20:41 Last 24 Hour Vital Signs Date Time Temp Pulse Resp B/P (MAP) Pulse Ox O2 Delivery O2 Flow Rate FiO2 11/18/18 13:00 82 29 122/51 (74) 100 11/18/18 12:40 89 44 40 11/18/18 12:00 Mechanical Ventilator 11/18/18 12:00 98.9 85 29 125/47 (73) 100 82 10/13/19 12:00 84 11/18/18 12:00 40 11/18/18 11:09 84 48 100 Mechanical Ventilator 40 84 31 40 11/18/18 11:00 80 28 117/55 (75) 100 11/18/18 10:00 84 30 121/50 (73) 100 11/18/18 09:01 90 31 40 11/18/18 09:00 95 38 154/71 (98) 98 11/18/18 08:00 40 11/18/18 08:00 98.7 11/18/18 08:00 87 11/18/18 08:00 Mechanical Ventilator 11/18/18 08:00 90 31 153/74 (100) 100 11/18/18 07:23 80 39 100 Mechanical Ventilator 40 82 34 40 11/18/18 07:00 80 34 129/61 (83) 100 11/18/18 06:00 84 31 117/47 (70) 100 11/18/18 05:08 85 32 40 11/18/18 05:00 81 21 124/59 (80) 100 11/18/18 04:00 Mechanical Ventilator 11/18/18 04:00 98.2 78 22 123/57 (79) 100 11/18/18 04:00 40 11/18/18 03:09 77 27 100 Mechanical Ventilator 40 77 27 40 11/18/18 03:05 74 11/18/18 03:00 77 28 114/52 (72) 100 11/18/18 02:00 76 27 109/47 (67) 100 11/18/18 01:08 87 25 40 11/18/18 01:00 85 36 119/49 (72) 98 11/18/18 00:00 40 11/18/18 00:00 98.7 87 29 116/57 (76) 100 11/18/18 00:00 Mechanical Ventilator 11/17/18 23:40 98 11/17/18 23:05 76 29 99 Mechanical Ventilator 40 76 29 40 11/17/18 23:00 77 29 125/54 (77) 98 11/17/18 22:00 79 31 119/54 (75) 98 11/17/18 21:04 80 31 40 11/17/18 21:00 76 43 139/58 (85) 99 11/17/18 20:00 98.8 85 33 126/65 (85) 100 11/17/18 20:00 40 11/17/18 20:00 Mechanical Ventilator 11/17/18 19:32 83 11/17/18 19:01 82 34 100 Mechanical Ventilator 40 82 34 40 11/17/18 19:00 85 33 132/51 (78) 100 11/17/18 18:00 84 33 137/56 (83) 100 11/17/18 17:23 91 36 40 11/17/18 17:00 82 31 130/56 (80) 99 11/17/18 16:00 Mechanical Ventilator 11/17/18 16:00 40 11/17/18 16:00 98.6 84 28 119/49 (72) 100 11/17/18 16:00 98 11/17/18 15:15 81 30 100 Mechanical Ventilator 40 81 32 40 11/17/18 15:00 85 39 142/54 (83) 100 11/17/18 14:00 87 39 113/54 (73) 100 11/17/18 13:00 101 37 136/54 (81) 95 11/17/18 12:39 83 29 40 11/17/18 12:00 40 11/17/18 12:00 79 11/17/18 12:00 98.4 84 33 141/66 (91) 98 11/17/18 12:00 Mechanical Ventilator 11/17/18 11:12 78 34 98 Mechanical Ventilator 40 78 31 40 11/17/18 11:00 79 30 124/53 (76) 97 11/17/18 10:00 79 30 117/51 (73) 97 11/17/18 09:26 80 26 40 11/17/18 09:00 81 28 117/49 (71) 98 11/17/18 08:00 86 11/17/18 08:00 Mechanical Ventilator 11/17/18 08:00 40 11/17/18 08:00 98.2 85 22 154/70 (98) 100 11/17/18 07:00 86 22 121/56 (77) 100 11/17/18 06:53 82 32 100 Mechanical Ventilator 40 82 31 40 11/17/18 06:00 99 29 122/90 (101) 100 11/17/18 05:29 97 33 40 11/17/18 05:00 83 26 116/55 (75) 100 11/17/18 04:00 98.6 80 22 111/48 (69) 100 11/17/18 04:00 Mechanical Ventilator 11/17/18 04:00 40 11/17/18 03:55 82 11/17/18 03:38 82 34 100 Mechanical Ventilator 40 80 34 40 11/17/18 03:00 81 30 115/53 (73) 99 11/17/18 02:00 79 30 114/52 (72) 99 11/17/18 01:08 80 29 40 11/17/18 01:00 82 22 112/53 (72) 100 11/17/18 00:00 98.9 80 26 108/56 (73) 100 11/17/18 00:00 78 11/17/18 00:00 Mechanical Ventilator 11/17/18 00:00 40 11/16/18 23:58 80 27 100 Mechanical Ventilator 40 80 23 40 11/16/18 23:00 88 28 111/53 (72) 100 11/16/18 22:00 71 30 129/78 (95) 100 11/16/18 21:00 85 32 120/53 (75) 100 11/16/18 20:51 80 39 40 11/16/18 20:30 92 34 154/84 (107) 100 11/16/18 20:00 Mechanical Ventilator 11/16/18 20:00 99.2 82 31 112/49 (70) 100 11/16/18 20:00 40 11/16/18 19:57 83 11/16/18 19:24 82 33 100 Mechanical Ventilator 40 82 30 40 11/16/18 19:00 77 31 116/56 (76) 100 11/16/18 18:43 155/55 11/16/18 18:00 77 28 155/55 (88) 100 11/16/18 17:00 77 25 111/52 (71) 100 11/16/18 16:32 77 30 40 11/16/18 16:00 84 11/16/18 16:00 Mechanical Ventilator 11/16/18 16:00 98.0 88 33 111/47 (68) 100 11/16/18 16:00 40 11/16/18 15:07 88 35 100 Mechanical Ventilator 40 87 22 40 11/16/18 15:00 88 41 122/98 (106) 100 Intake and Output 11/17/18 11/18/18 19:00 07:00 Intake Total 2490.0 ml 2696.0 ml Output Total 305 ml 250 ml Balance 2185.0 ml 2446.0 ml Intake Free Water 520 ml 260 ml IV Total 1310.0 ml 1516.0 ml Tube Feeding 660 ml 660 ml Other 260 ml Output Urine Total 305 ml 250 ml # Voids 3 # Bowel Movements 2 2 Labs Test 11/15/18 16:50 11/15/18 20:30 11/16/18 02:20 11/16/18 04:30 Lactic Acid Level 2.80 mmol/L (0.4-2.0) 1.90 mmol/L (0.4-2.0) 1.00 mmol/L (0.4-2.0) Troponin I 0.294 ng/mL (0.000-0.056) 0.255 ng/mL (0.000-0.056) Carcinoembryonic Antigen 4.3 ng/mL (0.0-4.7) Urine Color Yellow Urine Appearance Slightly cloudy Urine pH 5 (4.5-8.0) Urine Specific [place] 1.015 (1.005-1.035) Urine Protein 3+ (NEGATIVE) Urine Glucose (UA) Negative (NEGATIVE) Urine Ketones Negative (NEGATIVE) Urine Blood 2+ (NEGATIVE) Urine Nitrite Negative (NEGATIVE) Urine Bilirubin Negative (NEGATIVE) Urine Ictotest Negative (NEGATIVE) Urine Urobilinogen Normal MG/DL (0.0-1.0) Urine Leukocyte Esterase 3+ (NEGATIVE) Urine RBC 5-10 /HPF (0 - 0) Urine WBC 60-80 /HPF (0 - 0) Urine Squamous Epithelial Cells Moderate /LPF (NONE/OCC) Urine Bacteria Moderate /HPF (NONE) Stool Occult Blood Positive (NEGATIVE) White Blood Count 29.1 K/UL (4.8-10.8) Red Blood Count 3.29 M/UL (4.70-6.10) Hemoglobin 9.1 G/DL (14.2-18.0) Hematocrit 27.8 % (42.0-52.0) Mean Corpuscular Volume 85 FL (80-99) Mean Corpuscular Hemoglobin 27.8 PG (27.0-31.0) Mean Corpuscular Hemoglobin Concent 32.8 G/DL (32.0-36.0) Red Cell Distribution Width 15.2 % (11.6-14.8) Platelet Count 232 K/UL (150-450) Mean Platelet Volume 7.4 FL (6.5-10.1) Neutrophils (%) (Auto) % (45.0-75.0) Lymphocytes (%) (Auto) % (20.0-45.0) Monocytes (%) (Auto) % (1.0-10.0) Eosinophils (%) (Auto) % (0.0-3.0) Basophils (%) (Auto) % (0.0-2.0) Differential Total Cells Counted 100 Neutrophils % (Manual) 92 % (45-75) Lymphocytes % (Manual) 4 % (20-45) Monocytes % (Manual) 1 % (1-10) Eosinophils % (Manual) 1 % (0-3) Basophils % (Manual) 1 % (0-2) Band Neutrophils 1 % (0-8) Platelet Estimate Adequate Platelet Morphology Normal Hypochromasia 2+ Anisocytosis 1+ Spherocytes 1+ Sodium Level 150 MMOL/L (136-145) Potassium Level 3.6 MMOL/L (3.5-5.1) Chloride Level 115 MMOL/L (98-107) Carbon Dioxide Level 28 MMOL/L (21-32) Anion Gap 7 mmol/L (5-15) Blood Urea Nitrogen 40 mg/dL (7-18) Creatinine 1.8 MG/DL (0.55-1.30) Estimat Glomerular Filtration Rate mL/min (>60) Glucose Level 169 MG/DL (74-106) Hemoglobin A1c 5.3 % (4.3-6.0) Uric Acid 5.4 MG/DL (2.6-7.2) Calcium Level 8.0 MG/DL (8.5-10.1) Phosphorus Level 3.1 MG/DL (2.5-4.9) Magnesium Level 2.3 MG/DL (1.8-2.4) Total Bilirubin 0.6 MG/DL (0.2-1.0) Gamma Glutamyl Transpeptidase 224 U/L (5-85) Aspartate Amino Transf (AST/SGOT) 119 U/L (15-37) Alanine Aminotransferase (ALT/SGPT) 211 U/L (12-78) Alkaline Phosphatase 138 U/L (46-116) Ammonia 37 umol/L (11-32) Total Creatine Kinase 84 U/L (26-308) C-Reactive Protein, Quantitative 27.5 mg/dL (0.00-0.90) Pro-B-Type Natriuretic Peptide 8616 pg/mL (0-125) Total Protein 6.7 G/DL (6.4-8.2) Albumin 2.3 G/DL (3.4-5.0) Globulin 4.4 g/dL Albumin/Globulin Ratio 0.5 (1.0-2.7) Lipase 82 U/L (73-393) Vitamin B12 Level > 2000 PG/ML (193-986) Test 11/16/18 16:40 11/17/18 07:15 11/18/18 05:25 White Blood Count 16.2 K/UL (4.8-10.8) 11.9 K/UL (4.8-10.8) Red Blood Count 3.33 M/UL (4.70-6.10) 3.34 M/UL (4.70-6.10) Hemoglobin 9.2 G/DL (14.2-18.0) 9.2 G/DL (14.2-18.0) Hematocrit 28.4 % (42.0-52.0) 28.7 % (42.0-52.0) Mean Corpuscular Volume 85 FL (80-99) 86 FL (80-99) Mean Corpuscular Hemoglobin 27.5 PG (27.0-31.0) 27.5 PG (27.0-31.0) Mean Corpuscular Hemoglobin Concent 32.3 G/DL (32.0-36.0) 32.0 G/DL (32.0-36.0) Red Cell Distribution Width 15.1 % (11.6-14.8) 15.1 % (11.6-14.8) Platelet Count 213 K/UL (150-450) 206 K/UL (150-450) Mean Platelet Volume 7.3 FL (6.5-10.1) 7.3 FL (6.5-10.1) Neutrophils (%) (Auto) 84.8 % (45.0-75.0) 78.9 % (45.0-75.0) Lymphocytes (%) (Auto) 5.4 % (20.0-45.0) 10.4 % (20.0-45.0) Monocytes (%) (Auto) 7.6 % (1.0-10.0) 7.5 % (1.0-10.0) Eosinophils (%) (Auto) 1.7 % (0.0-3.0) 2.4 % (0.0-3.0) Basophils (%) (Auto) 0.4 % (0.0-2.0) 0.8 % (0.0-2.0) Sodium Level 148 MMOL/L (136-145) 145 MMOL/L (136-145) Potassium Level 3.7 MMOL/L (3.5-5.1) 3.6 MMOL/L (3.5-5.1) Chloride Level 115 MMOL/L (98-107) 114 MMOL/L (98-107) Carbon Dioxide Level 26 MMOL/L (21-32) 26 MMOL/L (21-32) Anion Gap 7 mmol/L (5-15) 5 mmol/L (5-15) Blood Urea Nitrogen 27 mg/dL (7-18) 20 mg/dL (7-18) Creatinine 1.2 MG/DL (0.55-1.30) 1.0 MG/DL (0.55-1.30) Estimat Glomerular Filtration Rate mL/min (>60) mL/min (>60) Glucose Level 120 MG/DL (74-106) 134 MG/DL (74-106) Uric Acid 3.1 MG/DL (2.6-7.2) Calcium Level 7.8 MG/DL (8.5-10.1) 8.1 MG/DL (8.5-10.1) Phosphorus Level 2.6 MG/DL (2.5-4.9) Magnesium Level 2.2 MG/DL (1.8-2.4) Total Bilirubin 0.5 MG/DL (0.2-1.0) Gamma Glutamyl Transpeptidase 210 U/L (5-85) Aspartate Amino Transf (AST/SGOT) 119 U/L (15-37) Alanine Aminotransferase (ALT/SGPT) 243 U/L (12-78) Alkaline Phosphatase 140 U/L (46-116) Total Protein 6.6 G/DL (6.4-8.2) Albumin 2.1 G/DL (3.4-5.0) Globulin 4.5 g/dL Albumin/Globulin Ratio 0.5 (1.0-2.7) Height (Feet): 5 Height (Inches): 8.00 Weight (Pounds): 163 Objective Vitals: reviewed Gen: no apparent distress Head: normocephalic EENT: normal ENT inspection Neck: supple Respiratory: other - intubated Cardiovascular: normal rate Gastrointestinal: gt - c/d/i Rectal: deferred Genitourinary: no CVA tenderness Skin: normal color +++ Beny Rao MD Nov 18, 2018 14:04
--- NOTE | 2018-11-18 14:13 | Cardiology Progress Note ---
Assessment/Plan Status: stable Assessment/Plan Assessment/Plan Assessment/Plan 1. Septic shock with white count of 50,000 and lactic acid of 6. On IV antibiotic Off Levophed. Echocardiogram Nl EF. Abx per ID 2. Congestive heart failure with BNP of more than 17,000. The patient has septic shock, endocarditis, and maintaining his blood pressure. The patient is already on the ventilator via tracheostomy anyway. 3. Troponin elevation, likely due to renal failure and anemia and septic shock. The levels are flat. EKG does not show any ST elevation or depression. 4. Acute renal failure. BUN of 48, creatinine of 2.5., HD per nephrology 5. Hypernatremia. per nephrology 6. Ventilator-dependent respiratory failure, status post tracheostomy. 7. Dysphagia, status post PEG placement. 8. Profound anemia, hemoglobin of 6.5, rule out GI bleed. S/P blood transfusion. Subjective Cardiovascular: Reports: no symptoms Respiratory: Reports: no symptoms Gastrointestinal/Abdominal: Reports: no symptoms Genitourinary: Reports: no symptoms Subjective COVERAGE FOR [place] Objective Last 24 Hour Vital Signs Date Time Temp Pulse Resp B/P (MAP) Pulse Ox O2 Delivery O2 Flow Rate FiO2 11/18/18 13:00 82 29 122/51 (74) 100 11/18/18 12:40 89 44 40 11/18/18 12:00 Mechanical Ventilator 11/18/18 12:00 98.9 85 29 125/47 (73) 100 82 11/18/18 12:00 84 11/18/18 12:00 40 11/18/18 11:09 84 48 100 Mechanical Ventilator 40 84 31 40 11/18/18 11:00 80 28 117/55 (75) 100 11/18/18 10:00 84 30 121/50 (73) 100 11/18/18 09:01 90 31 40 11/18/18 09:00 95 38 154/71 (98) 98 11/18/18 08:00 40 11/18/18 08:00 98.7 11/18/18 08:00 87 11/18/18 08:00 Mechanical Ventilator 11/18/18 08:00 90 31 153/74 (100) 100 11/18/18 07:23 80 39 100 Mechanical Ventilator 40 82 34 40 11/18/18 07:00 80 34 129/61 (83) 100 11/18/18 06:00 84 31 117/47 (70) 100 11/18/18 05:08 85 32 40 11/18/18 05:00 81 21 124/59 (80) 100 11/18/18 04:00 Mechanical Ventilator 11/18/18 04:00 98.2 78 22 123/57 (79) 100 11/18/18 04:00 40 11/18/18 03:09 77 27 100 Mechanical Ventilator 40 77 27 40 11/18/18 03:05 74 11/18/18 03:00 77 28 114/52 (72) 100 11/18/18 02:00 76 27 109/47 (67) 100 11/18/18 01:08 87 25 40 11/18/18 01:00 85 36 119/49 (72) 98 11/18/18 00:00 40 11/18/18 00:00 98.7 87 29 116/57 (76) 100 11/18/18 00:00 Mechanical Ventilator 11/17/18 23:40 98 11/17/18 23:05 76 29 99 Mechanical Ventilator 40 76 29 40 11/17/18 23:00 77 29 125/54 (77) 98 11/17/18 22:00 79 31 119/54 (75) 98 11/17/18 21:04 80 31 40 11/17/18 21:00 76 43 139/58 (85) 99 11/17/18 20:00 98.8 85 33 126/65 (85) 100 11/17/18 20:00 40 11/17/18 20:00 Mechanical Ventilator 11/17/18 19:32 83 11/17/18 19:01 82 34 100 Mechanical Ventilator 40 82 34 40 11/17/18 19:00 85 33 132/51 (78) 100 11/17/18 18:00 84 33 137/56 (83) 100 11/17/18 17:23 91 36 40 11/17/18 17:00 82 31 130/56 (80) 99 11/17/18 16:00 Mechanical Ventilator 11/17/18 16:00 40 11/17/18 16:00 98.6 84 28 119/49 (72) 100 11/17/18 16:00 98 11/17/18 15:15 81 30 100 Mechanical Ventilator 40 81 32 40 11/17/18 15:00 85 39 142/54 (83) 100 General Appearance: no apparent distress EENT: PERRL/EOMI, normal ENT inspection, TMs normal, pharynx normal Neck: non-tender, normal alignment, supple, normal inspection, no JVD Rhythm: NSR Cardiovascular: normal peripheral pulses, normal rate, regular rhythm Respiratory/Chest: chest wall non-tender, lungs clear Abdomen: normal bowel sounds, non tender, soft, no organomegaly, no mass Extremities: normal range of motion, non-tender, normal inspection, no calf tenderness, no swelling 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, no motor/sensory deficits Intake and Output 11/17/18 11/18/18 18:59 06:59 Intake Total 2517.5 ml 2668.5 ml Output Total 280 ml 275 ml Balance 2237.5 ml 2393.5 ml Intake Free Water 520 ml 260 ml IV Total 1337.5 ml 1488.5 ml Tube Feeding 660 ml 660 ml Other 260 ml Output Urine Total 280 ml 275 ml # Voids 3 # Bowel Movements 2 2 Laboratory Tests Test 11/18/18 05:25 White Blood Count 11.9 K/UL (4.8-10.8) H Red Blood Count 3.34 M/UL (4.70-6.10) L Hemoglobin 9.2 G/DL (14.2-18.0) L Hematocrit 28.7 % (42.0-52.0) L Mean Corpuscular Volume 86 FL (80-99) Mean Corpuscular Hemoglobin 27.5 PG (27.0-31.0) Mean Corpuscular Hemoglobin Concent 32.0 G/DL (32.0-36.0) Red Cell Distribution Width 15.1 % (11.6-14.8) H Platelet Count 206 K/UL (150-450) Mean Platelet Volume 7.3 FL (6.5-10.1) Neutrophils (%) (Auto) 78.9 % (45.0-75.0) H Lymphocytes (%) (Auto) 10.4 % (20.0-45.0) L Monocytes (%) (Auto) 7.5 % (1.0-10.0) Eosinophils (%) (Auto) 2.4 % (0.0-3.0) Basophils (%) (Auto) 0.8 % (0.0-2.0) Sodium Level 145 MMOL/L (136-145) Potassium Level 3.6 MMOL/L (3.5-5.1) Chloride Level 114 MMOL/L (98-107) H Carbon Dioxide Level 26 MMOL/L (21-32) Anion Gap 5 mmol/L (5-15) Blood Urea Nitrogen 20 mg/dL (7-18) H Creatinine 1.0 MG/DL (0.55-1.30) Estimat Glomerular Filtration Rate mL/min (>60) Glucose Level 134 MG/DL (74-106) H Calcium Level 8.1 MG/DL (8.5-10.1) L Microbiology Date/Time Source Procedure Growth Status 11/16/18 02:20 Urine,Clean Catch Urine Culture - Final Mixed Gram Positive Organism Complete FilsoBooker henedrson MD Nov 18, 2018 14:13
--- NOTE | 2018-11-18 16:21 | Surgery Progress Note ---
Surgery Progress Note Subjective Additional Comments labs noted exam unchanged no acute events Objective Last 24 Hour Vital Signs Date Time Temp Pulse Resp B/P (MAP) Pulse Ox O2 Delivery O2 Flow Rate FiO2 11/18/18 16:00 40 11/18/18 16:00 98.7 85 29 125/47 (73) 100 82 11/18/18 16:00 Mechanical Ventilator 11/18/18 16:00 98.7 38 134/95 (108) 97 11/18/18 15:22 84 22 100 Mechanical Ventilator 40 82 22 40 11/18/18 15:00 81 30 131/57 (81) 100 11/18/18 14:00 82 29 122/51 (74) 100 11/18/18 14:00 81 30 129/52 (77) 100 11/18/18 13:00 82 29 122/51 (74) 100 11/18/18 12:40 89 44 40 11/18/18 12:00 Mechanical Ventilator 11/18/18 12:00 98.9 85 29 125/47 (73) 100 82 11/18/18 12:00 84 11/18/18 12:00 40 11/18/18 11:09 84 48 100 Mechanical Ventilator 40 84 31 40 11/18/18 11:00 80 28 117/55 (75) 100 11/18/18 10:00 84 30 121/50 (73) 100 11/18/18 09:01 90 31 40 11/18/18 09:00 95 38 154/71 (98) 98 11/18/18 08:00 40 11/18/18 08:00 98.7 11/18/18 08:00 87 11/18/18 08:00 Mechanical Ventilator 11/18/18 08:00 90 31 153/74 (100) 100 11/18/18 07:23 80 39 100 Mechanical Ventilator 40 82 34 40 11/18/18 07:00 80 34 129/61 (83) 100 11/18/18 06:00 84 31 117/47 (70) 100 11/18/18 05:08 85 32 40 11/18/18 05:00 81 21 124/59 (80) 100 11/18/18 04:00 Mechanical Ventilator 11/18/18 04:00 98.2 78 22 123/57 (79) 100 11/18/18 04:00 40 11/18/18 03:09 77 27 100 Mechanical Ventilator 40 77 27 40 11/18/18 03:05 74 11/18/18 03:00 77 28 114/52 (72) 100 11/18/18 02:00 76 27 109/47 (67) 100 11/18/18 01:08 87 25 40 11/18/18 01:00 85 36 119/49 (72) 98 11/18/18 00:00 40 11/18/18 00:00 98.7 87 29 116/57 (76) 100 11/18/18 00:00 Mechanical Ventilator 11/17/18 23:40 98 11/17/18 23:05 76 29 99 Mechanical Ventilator 40 76 29 40 11/17/18 23:00 77 29 125/54 (77) 98 11/17/18 22:00 79 31 119/54 (75) 98 11/17/18 21:04 80 31 40 11/17/18 21:00 76 43 139/58 (85) 99 11/17/18 20:00 98.8 85 33 126/65 (85) 100 11/17/18 20:00 40 11/17/18 20:00 Mechanical Ventilator 11/17/18 19:32 83 11/17/18 19:01 82 34 100 Mechanical Ventilator 40 82 34 40 11/17/18 19:00 85 33 132/51 (78) 100 11/17/18 18:00 84 33 137/56 (83) 100 11/17/18 17:23 91 36 40 11/17/18 17:00 82 31 130/56 (80) 99 I&O Intake and Output 11/17/18 11/18/18 18:59 06:59 Intake Total 2517.5 ml 2668.5 ml Output Total 280 ml 275 ml Balance 2237.5 ml 2393.5 ml Intake Free Water 520 ml 260 ml IV Total 1337.5 ml 1488.5 ml Tube Feeding 660 ml 660 ml Other 260 ml Output Urine Total 280 ml 275 ml # Voids 3 # Bowel Movements 2 2 Dressing: saturated Wound: other Drains: other Cardiovascular: RSR Respiratory: decreased breath sounds Abdomen: soft, present bowel sounds, non-distended Extremities: other Laboratory Tests Test 11/18/18 05:25 White Blood Count 11.9 K/UL (4.8-10.8) H Red Blood Count 3.34 M/UL (4.70-6.10) L Hemoglobin 9.2 G/DL (14.2-18.0) L Hematocrit 28.7 % (42.0-52.0) L Mean Corpuscular Volume 86 FL (80-99) Mean Corpuscular Hemoglobin 27.5 PG (27.0-31.0) Mean Corpuscular Hemoglobin Concent 32.0 G/DL (32.0-36.0) Red Cell Distribution Width 15.1 % (11.6-14.8) H Platelet Count 206 K/UL (150-450) Mean Platelet Volume 7.3 FL (6.5-10.1) Neutrophils (%) (Auto) 78.9 % (45.0-75.0) H Lymphocytes (%) (Auto) 10.4 % (20.0-45.0) L Monocytes (%) (Auto) 7.5 % (1.0-10.0) Eosinophils (%) (Auto) 2.4 % (0.0-3.0) Basophils (%) (Auto) 0.8 % (0.0-2.0) Sodium Level 145 MMOL/L (136-145) Potassium Level 3.6 MMOL/L (3.5-5.1) Chloride Level 114 MMOL/L (98-107) H Carbon Dioxide Level 26 MMOL/L (21-32) Anion Gap 5 mmol/L (5-15) Blood Urea Nitrogen 20 mg/dL (7-18) H Creatinine 1.0 MG/DL (0.55-1.30) Estimat Glomerular Filtration Rate mL/min (>60) Glucose Level 134 MG/DL (74-106) H Calcium Level 8.1 MG/DL (8.5-10.1) L Plan Problems: (1) Severe sepsis Assessment & Plan: leukocytosis, anemia, lactic acidosis, fevers IV Abx imaging noted and reviewed exam as below cont abx trend labs thank you will follow with recs (2) Malnutrition Assessment & Plan: DAILY ESTIMATED NEEDS: Needs based on Critical care, sepsis 71.8 kg 22-30 kcals/kg 7344-2564 total kcals 1.2-2 g protein/kg 86- 144 g total protein 25-30 mL/kg 1795- 2154 total fluid mLs NUTRITION DIAGNOSIS: * Swallowing difficulty R/T respiratory status and dysphagia as evidenced by pt is vent dep, on TF. * Altered nutrition related lab values r/t sepsis, clinical status, h/o Diabetes as evidenced by critically elev WBC (47.2), low Hgb (6.6), elev BNP, low BP (96/41), BG 191, POC 179. CURRENT TF: Jevity 1.2 @ 70mL/hr x 20hr - NOW NPO ENTERAL NUTRITION RECOMMENDATIONS: Vital 1.2 @55mL/hr x24 hrs to provide 1320mL, 1584kcal, 99g pro, 1071mL free H2O * As medically appropriate to feed, rec TF change to VITAL 1.2 for critical care. * Start Vital 1,2, @25mL, advance as tolerated 10ml/hr q4-6 hrs to goal * HOB over 30 degrees/ water flush per MD --- Low Hgb (6.6), NPO per GI-> rec trophic feeds when appropriate if pt remains hypotensive. ADDITIONAL RECOMMENDATIONS: * Per SNF: HT 68 inches WT 158 lbs + Daily calibrated bed scale wts * Change TF to Vital 1.2, as medically able to feed * Monitor lytes (replete as needed) * F/up w/ WC eval . (3) Sacral decubitus ulcer Assessment & Plan: Pt presented on admission with contractures and multiple pressure injuries. Partially opened DTPI L buttocks. Base of wound moist - viable with surrounding dark and fluctuant borders.(L)1.2cm x (W)1cm. Small amt of sanguineous exudate noted. No odor noted. Hyperpigmentation noted to sacrum. Historical scar from previous wound noted to L trochanter. Penile head retracted within foreskin and small wound noted within folds of foreskin. Wound is moist and viable. No odor or exudate noted. No erythema noted periwound. Resolving pressure injury plantar R heel. Base of wound 50% epithelialized, 50% moist and viable.(L)5.5cm x (W)6.5cm. Resolving pressure injury lateral L heel. Base of wound is moist and viable with surrounding hyperpigmentation.(L)0.6cm x (W)0.5cm. Scattered loose, dry brown skin noted to medial and posterior L heel. Tx.Plan: Apply Moisture Barrier Paste to L buttocks and sacrum. Cover with Optifoam drsg. Change every 3 days and prn. Cleanse head of penis with soap and water. Apply Bacitracin oint Twice Daily. Apply Betadine to R and L heel wounds. Cover each heel with Optifoam drsg. Daily and prn. APM/ABDELRAHMAN Mattress overlay. Reposition at least every 2hours and prn. Off-load heels with pillow. Don Carvalho Nov 18, 2018 16:21
[2018-11-18] MEDS ORDERED: Heparin1,000 units/500ml Premix(Conc:2 units/ml) IV PRN (16:45)
[2018-11-18] MEDS ORDERED: Lidocaine 1% Plain 30 ml INJ PRN (16:45)
[2018-11-18] MEDS ORDERED: Acetaminophen 650mg/20.3ml NG PRN (17:45)
[2018-11-18] MEDS ORDERED: HYDROcodone/Acetamin 5/325 tab ORAL PRN (17:45)
[2018-11-18] MEDS: Dyna-Hex 2% Top Sol 2oz TOPIC SCH (20:22)
[2018-11-18] MEDS: Tamsulosin 0.4mg cap ORAL SCH (20:24)
--- NOTE | 2018-11-18 21:23 | General Progress Note ---
Assessment/Plan Problem List: (1) Hypernatremia ICD Codes: E87.0 - Hyperosmolality and hypernatremia SNOMED: 86810223 (2) Rhabdomyolysis ICD Codes: M62.82 - Rhabdomyolysis SNOMED: 717607476 (3) Sacral decubitus ulcer ICD Codes: L89.159 - Pressure ulcer of sacral region, unspecified stage SNOMED: 264773624 (4) Severe sepsis ICD Codes: A41.9 - Sepsis, unspecified organism; R65.20 - Severe sepsis without septic shock SNOMED: 70820261 (5) Septic shock ICD Codes: A41.9 - Sepsis, unspecified organism; R65.21 - Severe sepsis with septic shock SNOMED: 44192918 (6) DM (7) Anemia ICD Codes: D64.9 - Anemia, unspecified SNOMED: 854178140 (8) Prostate enlargement ICD Codes: N40.0 - Benign prostatic hyperplasia without lower urinary tract symptoms SNOMED: 052808436 (9) Chronic renal disease ICD Codes: N18.9 - Chronic kidney disease, unspecified SNOMED: 294631490 (10) Ventilator dependence ICD Codes: Z99.11 - Dependence on respirator [ventilator] status SNOMED: 394662936 (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 - Gastrostomy status SNOMED: 340631600, 072033428 (12) Malnutrition ICD Codes: E46 - Unspecified protein-calorie malnutrition SNOMED: 41781370 Status: stable, progressing Assessment/Plan: leukocytosis cri chf hypernatremia improving bph uti reviewed chart and labs Subjective ROS Limited/Unobtainable: Yes Allergies: Coded Allergies: TERAZOSIN (Verified Allergy, Unknown, 10/27/17) Objective Last 24 Hour Vital Signs Date Time Temp Pulse Resp B/P (MAP) Pulse Ox O2 Delivery O2 Flow Rate FiO2 11/18/18 20:00 100.9 93 26 124/70 (88) 100 11/18/18 19:39 94 35 97 Mechanical Ventilator 40 94 35 40 11/18/18 16:32 99 37 40 11/18/18 16:00 40 11/18/18 16:00 98.7 85 29 125/47 (73) 100 82 11/18/18 16:00 99 11/18/18 16:00 Mechanical Ventilator 11/18/18 16:00 98.7 38 134/95 (108) 97 11/18/18 15:22 84 22 100 Mechanical Ventilator 40 82 22 40 11/18/18 15:00 81 30 131/57 (81) 100 11/18/18 14:00 82 29 122/51 (74) 100 11/18/18 14:00 81 30 129/52 (77) 100 11/18/18 13:00 82 29 122/51 (74) 100 11/18/18 12:40 89 44 40 11/18/18 12:00 Mechanical Ventilator 11/18/18 12:00 98.9 85 29 125/47 (73) 100 82 11/18/18 12:00 84 11/18/18 12:00 40 11/18/18 11:09 84 48 100 Mechanical Ventilator 40 84 31 40 11/18/18 11:00 80 28 117/55 (75) 100 11/18/18 10:00 84 30 121/50 (73) 100 11/18/18 09:01 90 31 40 11/18/18 09:00 95 38 154/71 (98) 98 11/18/18 08:00 40 11/18/18 08:00 98.7 11/18/18 08:00 87 11/18/18 08:00 Mechanical Ventilator 11/18/18 08:00 90 31 153/74 (100) 100 11/18/18 07:23 80 39 100 Mechanical Ventilator 40 82 34 40 11/18/18 07:00 80 34 129/61 (83) 100 11/18/18 06:00 84 31 117/47 (70) 100 11/18/18 05:08 85 32 40 11/18/18 05:00 81 21 124/59 (80) 100 11/18/18 04:00 Mechanical Ventilator 11/18/18 04:00 98.2 78 22 123/57 (79) 100 11/18/18 04:00 40 11/18/18 03:09 77 27 100 Mechanical Ventilator 40 77 27 40 11/18/18 03:05 74 11/18/18 03:00 77 28 114/52 (72) 100 11/18/18 02:00 76 27 109/47 (67) 100 11/18/18 01:08 87 25 40 11/18/18 01:00 85 36 119/49 (72) 98 11/18/18 00:00 40 11/18/18 00:00 98.7 87 29 116/57 (76) 100 11/18/18 00:00 Mechanical Ventilator 11/17/18 23:40 98 11/17/18 23:05 76 29 99 Mechanical Ventilator 40 76 29 40 11/17/18 23:00 77 29 125/54 (77) 98 11/17/18 22:00 79 31 119/54 (75) 98 Intake and Output 11/17/18 11/18/18 19:00 07:00 Intake Total 2490.0 ml 2696.0 ml Output Total 305 ml 250 ml Balance 2185.0 ml 2446.0 ml Intake Free Water 520 ml 260 ml IV Total 1310.0 ml 1516.0 ml Tube Feeding 660 ml 660 ml Other 260 ml Output Urine Total 305 ml 250 ml # Voids 3 # Bowel Movements 2 2 Laboratory Tests 11/18/18 05:25: White Blood Count 11.9H, Red Blood Count 3.34L, Hemoglobin 9.2L, Hematocrit 28.7L, Mean Corpuscular Volume 86, Mean Corpuscular Hemoglobin 27.5, Mean Corpuscular Hemoglobin Concent 32.0, Red Cell Distribution Width 15.1H, Platelet Count 206, Mean Platelet Volume 7.3, Neutrophils (%) (Auto) 78.9H, Lymphocytes (%) (Auto) 10.4L, Monocytes (%) (Auto) 7.5, Eosinophils (%) (Auto) 2.4, Basophils (%) (Auto) 0.8, Sodium Level 145, Potassium Level 3.6, Chloride Level 114H, Carbon Dioxide Level 26, Anion Gap 5, Blood Urea Nitrogen 20H, Creatinine 1.0, Estimat Glomerular Filtration Rate , Glucose Level 134H, Calcium Level 8.1L Height (Feet): 5 Height (Inches): 8.00 Weight (Pounds): 163 Neck: supple Cardiovascular: normal rate Respiratory/Chest: lungs clear Trish Matias MD Nov 18, 2018 21:23
[2018-11-19] VITALS: BP 140/59
[2018-11-19] MEDS: D5 1/2NS 1,000 ML IV SCH ×3 (03:00→23:00)
[2018-11-19] MEDS: Piperacillin/Tazobactam 3.375 GM in NS 110 ML IVPB SCH ×3 (03:17→20:24)
[2018-11-19] MEDS: Albuterol/Ipratropium 3ml neb HHN SCH ×6 (03:19→23:33)
[2018-11-19 04:00] VITALS: BP 137/62
[2018-11-19 04:55] LABS: HEMATOCRIT 28.1 % (42.0-52.0); HEMOGLOBIN 8.9 G/DL (14.2-18.0); MEAN CORPUSCULAR VOLUME 86 FL (80-99); PLATELET COUNT 199 K/UL (150-450); RED BLOOD COUNT 3.26 M/UL (4.70-6.10); RED CELL DISTRIBUTION WIDTH 15.3 % (11.6-14.8); WHITE BLOOD COUNT 13.5 K/UL (4.8-10.8)
[2018-11-19 05:18] LABS: CREATINE KINASE 48 U/L (26-308); GAMMA GLUTAMYL TRANSPEPTIDASE 198 U/L (5-85)
[2018-11-19 05:34] LABS: ALANINE AMINOTRANSFERASE 216 U/L (12-78); ALBUMIN/GLOBULIN RATIO 0.5 (1.0-2.7); ALKALINE PHOSPHATASE 158 U/L (46-116); ANION GAP 6 mmol/L (5-15); ASPARTATE AMINO TRANSFERASE 71 U/L (15-37); BILIRUBIN,TOTAL 0.4 MG/DL (0.2-1.0); BLOOD UREA NITROGEN 18 mg/dL (7-18); CALCIUM 8.1 MG/DL (8.5-10.1); CARBON DIOXIDE 26 MMOL/L (21-32); CHLORIDE 113 MMOL/L (98-107); POTASSIUM 3.9 MMOL/L (3.5-5.1); SODIUM 145 MMOL/L (136-145)
[2018-11-19] MEDS: NovoLOG Insulin Flexpen SUBQ SCH ×4 (05:37→21:57)
[2018-11-19 05:44] LABS: PHOSPHORUS 2.8 MG/DL (2.5-4.9)
[2018-11-19] MEDS ORDERED: Heparin1,000 units/500ml Premix(Conc:2 units/ml) IV PRN (07:00)
[2018-11-19] MEDS ORDERED: Lidocaine 1% Plain 30 ml INJ PRN (07:00)
[2018-11-19 08:00] VITALS: BP 134/67
[2018-11-19] MEDS: ZyPREXA Zydis 5mg tab GT SCH (08:41)
[2018-11-19] MEDS: Doxycycline Hyclate 100 MG in D5W 110 ML IV SCH ×2 (08:42→20:24)
[2018-11-19] MEDS: Pantoprazole Inj IVP SCH ×2 (08:42→20:24)
--- NOTE | 2018-11-19 08:58 | Hematology/Onc Progress Note ---
Assessment/Plan Assessment/Plan ASSESSMENT AND RECOMMENDATIONS # Leukocytosis. Likely related to underlying infection with sepsis and elevated severely on admission --> Imaging has been reviewed. Shows cxr left lung inil/v edema --> Blood cs and urine cx are reviewed --> Has been started on abx, empiric tx --> PERIPHERAL SMEAR SHOWS ATYPICAL LYMPHOCYTES --> Flow cytometry ordered with pathologist --> wbc 52k-->47k-->29k->16-->12-->14 # Anemia of chronic disease, due to underlying chronic medical issues, multifactorial. --> Anemia w/u has been ordered --> with hyperferritinemia --> No evidence of hemolysis noted, peripheral smear has been reviewed --> Hgb goal >7. Transfuse as needed --> hgb trend 7.5-->6.6->9.1-->9.2-->8.9 --> 2 units transfuse on 11/15 --> will need to follow as outpatient and may need chelation therapy # Failure to thrive (FTT) - decreased bmi and low protein --> cea 4.3 --> will obtain q3 day caloric counts --> consider mirtazapine as appetite stimulant --> GI consult on a prn basis, as needed for endosc # Sepsis. # PEG. # Malnutrition. # REsp failure s/p Vent/trach The timing of this note does not necessarily reflect the time of the patient was seen. Greatly appreciate consultation. Subjective Constitutional: Denies: no symptoms, chills, fever, malaise, weakness, other HEENT: Denies: no symptoms, eye pain, blurred vision, tearing, double vision, ear pain, ear discharge, nose pain, nose congestion, throat pain, throat swelling, mouth pain, mouth swelling, other Respiratory: Denies: no symptoms, cough, shortness of breath, SOB with excertion, SOB at rest, sputum, wheezing, other Gastrointestinal/Abdominal: Denies: no symptoms, abdomen distended, abdominal pain, black stools, tarry stools, blood in stool, constipated, diarrhea, difficulty swallowing, nausea, poor appetite, poor fluid intake, rectal bleeding , vomiting, other Genitourinary: Denies: no symptoms, burning, discharge, frequency, flank pain, hematuria, incontinence, pain, urgency, other Neurologic/Psychiatric: Denies: no symptoms, anxiety, depressed, emotional problems, headache, numbness, paresthesia, pre-existing deficit, seizure, tingling, tremors, weakness, other Hematologic/Lymphatic: Denies: no symptoms, anemia, easy bleeding, easy bruising, adenopathy, other Allergies: Coded Allergies: TERAZOSIN (Verified Allergy, Unknown, 10/27/17) Subjective 11/16: in the icu, is off pressors, doing better, no bleeding 11/18: no bleeding, remains on doxy and zosyn, no bleeding reported 11/19: out of the icu, on vent/trach, no major changes, dw rn Objective Objective Current Medications Medications (Trade) Dose Ordered Sig/Ruthie Route PRN Reason Start Time Stop Time Status Last Admin Dose Admin Acetaminophen (Tylenol) 650 mg Q6H PRN NG Mild Pain/Temp > 100.5 11/18/18 17:45 12/15/18 05:44 Acetaminophen/ Hydrocodone Bitart ([place] 5/325) 1 tab Q4H PRN ORAL Moderate Pain (Pain Scale 4-6) 11/18/18 17:45 11/22/18 05:44 Albuterol/ Ipratropium (Albuterol/ Ipratropium) 3 ml Q4HRT HHN 11/18/18 19:00 11/20/18 06:59 11/19/18 07:42 Bisacodyl (Dulcolax) 10 mg DAILYPRN PRN RECTAL Constipation 11/18/18 16:30 12/18/18 16:29 Chlorhexidine Gluconate (Rachael-Hex 2%) 1 applic DAILY@2000 TOPIC 11/18/18 20:00 12/15/18 19:59 11/18/18 20:22 Dextrose (Dextrose 50%) 25 ml Q30M PRN IV Hypoglycemia 11/18/18 16:45 12/15/18 05:44 Dextrose (Dextrose 50%) 50 ml Q30M PRN IV Hypoglycemia 11/18/18 16:45 12/15/18 05:44 Dextrose/Sodium Chloride 1,000 ml @ 100 mls/hr Q10H IV 11/18/18 16:45 12/15/18 07:59 11/19/18 03:00 Doxycycline Hyclate 100 mg/ Dextrose 110 ml @ 110 mls/hr Q12HR IV 11/18/18 21:00 11/22/18 08:59 11/19/18 08:42 Heparin Sodium/ Sodium Chloride (Heparin 1000 units/500ml Premix) 1,000 unit ONCE PRN IV PICC LINE 11/18/18 16:45 11/20/18 16:44 Hydromorphone HCl (Dilaudid) 0.5 mg Q4H PRN IVP For Pain 11/18/18 17:45 11/22/18 05:44 Insulin Aspart (NovoLOG) BEFORE MEALS AND HS SUBQ 11/18/18 21:00 12/15/18 06:29 11/18/18 20:25 Lidocaine HCl (Xylocaine 1% 30ml) 30 ml ONCE PRN INJ PICC LINE 11/18/18 16:45 11/20/18 16:44 Lorazepam (Ativan 2mg/ml 1ml) 0.5 mg Q4H PRN IV For Anxiety 11/18/18 17:45 11/22/18 05:44 11/18/18 20:22 Olanzapine (ZyPREXA Zydis) 7.5 mg DAILY GT 11/19/18 09:00 12/15/18 08:59 11/19/18 08:41 Pantoprazole (Protonix) 40 mg EVERY 12 HOURS IVP 11/18/18 21:00 12/15/18 08:59 11/19/18 08:42 Piperacillin Sod/ Tazobactam Sod 3.375 gm/Sodium Chloride 110 ml @ 27.5 mls/hr Q8H IVPB 11/18/18 20:00 11/22/18 11:59 11/19/18 03:17 Quetiapine Fumarate (SEROquel) 50 mg DAILY GT 11/19/18 09:00 12/15/18 08:59 11/19/18 08:40 Tamsulosin HCl (Flomax) 0.4 mg BEDTIME ORAL 11/18/18 21:00 12/15/18 20:59 11/18/18 20:24 Last 24 Hour Vital Signs Date Time Temp Pulse Resp B/P (MAP) Pulse Ox O2 Delivery O2 Flow Rate FiO2 11/19/18 08:00 Mechanical Ventilator 11/19/18 08:00 40 11/19/18 08:00 98.0 87 24 134/67 (89) 99 11/19/18 07:30 93 37 97 Mechanical Ventilator 40 92 34 40 11/19/18 05:03 91 37 40 11/19/18 04:00 98.4 91 28 137/62 (87) 99 11/19/18 04:00 40 11/19/18 04:00 Mechanical Ventilator 11/19/18 03:43 69 11/19/18 03:19 94 41 100 Mechanical Ventilator 40 94 41 40 11/19/18 01:25 97 38 40 11/19/18 00:00 98.8 95 30 140/59 (86) 98 11/19/18 00:00 90 11/19/18 00:00 Mechanical Ventilator 11/18/18 22:54 96 42 99 Mechanical Ventilator 40 96 41 40 11/18/18 22:00 99.5 11/18/18 21:00 97 40 40 11/18/18 20:00 Mechanical Ventilator 11/18/18 20:00 100.9 93 26 124/70 (88) 100 11/18/18 20:00 98 11/18/18 20:00 40 11/18/18 19:39 94 35 97 Mechanical Ventilator 40 94 35 40 11/18/18 16:32 99 37 40 11/18/18 16:00 40 11/18/18 16:00 98.7 85 29 125/47 (73) 100 82 11/18/18 16:00 99 11/18/18 16:00 Mechanical Ventilator 11/18/18 16:00 98.7 38 134/95 (108) 97 11/18/18 15:22 84 22 100 Mechanical Ventilator 40 82 22 40 11/18/18 15:00 81 30 131/57 (81) 100 11/18/18 14:00 82 29 122/51 (74) 100 11/18/18 14:00 81 30 129/52 (77) 100 11/18/18 13:00 82 29 122/51 (74) 100 11/18/18 12:40 89 44 40 11/18/18 12:00 Mechanical Ventilator 11/18/18 12:00 98.9 85 29 125/47 (73) 100 82 11/18/18 12:00 84 11/18/18 12:00 40 11/18/18 11:09 84 48 100 Mechanical Ventilator 40 84 31 40 11/18/18 11:00 80 28 117/55 (75) 100 11/18/18 10:00 84 30 121/50 (73) 100 11/18/18 09:01 90 31 40 11/18/18 09:00 95 38 154/71 (98) 98 11/18/18 08:00 40 11/18/18 08:00 98.7 11/18/18 08:00 87 11/18/18 08:00 Mechanical Ventilator 11/18/18 08:00 90 31 153/74 (100) 100 11/18/18 07:23 80 39 100 Mechanical Ventilator 40 82 34 40 11/18/18 07:00 80 34 129/61 (83) 100 11/18/18 06:00 84 31 117/47 (70) 100 11/18/18 05:08 85 32 40 11/18/18 05:00 81 21 124/59 (80) 100 11/18/18 04:00 Mechanical Ventilator 11/18/18 04:00 98.2 78 22 123/57 (79) 100 11/18/18 04:00 40 11/18/18 03:09 77 27 100 Mechanical Ventilator 40 77 27 40 11/18/18 03:05 74 11/18/18 03:00 77 28 114/52 (72) 100 11/18/18 02:00 76 27 109/47 (67) 100 11/18/18 01:08 87 25 40 11/18/18 01:00 85 36 119/49 (72) 98 11/18/18 00:00 40 11/18/18 00:00 98.7 87 29 116/57 (76) 100 11/18/18 00:00 Mechanical Ventilator 11/17/18 23:40 98 11/17/18 23:05 76 29 99 Mechanical Ventilator 40 76 29 40 11/17/18 23:00 77 29 125/54 (77) 98 11/17/18 22:00 79 31 119/54 (75) 98 11/17/18 21:04 80 31 40 11/17/18 21:00 76 43 139/58 (85) 99 11/17/18 20:00 98.8 85 33 126/65 (85) 100 11/17/18 20:00 40 11/17/18 20:00 Mechanical Ventilator 11/17/18 19:32 83 11/17/18 19:01 82 34 100 Mechanical Ventilator 40 82 34 40 11/17/18 19:00 85 33 132/51 (78) 100 11/17/18 18:00 84 33 137/56 (83) 100 11/17/18 17:23 91 36 40 11/17/18 17:00 82 31 130/56 (80) 99 11/17/18 16:00 Mechanical Ventilator 11/17/18 16:00 40 11/17/18 16:00 98.6 84 28 119/49 (72) 100 11/17/18 16:00 98 11/17/18 15:15 81 30 100 Mechanical Ventilator 40 81 32 40 11/17/18 15:00 85 39 142/54 (83) 100 11/17/18 14:00 87 39 113/54 (73) 100 11/17/18 13:00 101 37 136/54 (81) 95 11/17/18 12:39 83 29 40 11/17/18 12:00 40 11/17/18 12:00 79 11/17/18 12:00 98.4 84 33 141/66 (91) 98 11/17/18 12:00 Mechanical Ventilator 11/17/18 11:12 78 34 98 Mechanical Ventilator 40 78 31 40 11/17/18 11:00 79 30 124/53 (76) 97 11/17/18 10:00 79 30 117/51 (73) 97 11/17/18 09:26 80 26 40 11/17/18 09:00 81 28 117/49 (71) 98 Intake and Output 11/18/18 11/19/18 19:00 07:00 Intake Total 2275.5 ml 2027.5 ml Output Total 350 ml 400 ml Balance 1925.5 ml 1627.5 ml Intake Free Water 520 ml 30 ml IV Total 1260.5 ml 1777.5 ml Tube Feeding 495 ml 220 ml Output Urine Total 350 ml 400 ml # Voids 4 2 # Bowel Movements 2 Labs Test 11/16/18 16:40 11/17/18 07:15 11/18/18 05:25 11/19/18 03:30 White Blood Count 16.2 K/UL (4.8-10.8) 11.9 K/UL (4.8-10.8) 13.5 K/UL (4.8-10.8) Red Blood Count 3.33 M/UL (4.70-6.10) 3.34 M/UL (4.70-6.10) 3.26 M/UL (4.70-6.10) Hemoglobin 9.2 G/DL (14.2-18.0) 9.2 G/DL (14.2-18.0) 8.9 G/DL (14.2-18.0) Hematocrit 28.4 % (42.0-52.0) 28.7 % (42.0-52.0) 28.1 % (42.0-52.0) Mean Corpuscular Volume 85 FL (80-99) 86 FL (80-99) 86 FL (80-99) Mean Corpuscular Hemoglobin 27.5 PG (27.0-31.0) 27.5 PG (27.0-31.0) 27.2 PG (27.0-31.0) Mean Corpuscular Hemoglobin Concent 32.3 G/DL (32.0-36.0) 32.0 G/DL (32.0-36.0) 31.6 G/DL (32.0-36.0) Red Cell Distribution Width 15.1 % (11.6-14.8) 15.1 % (11.6-14.8) 15.3 % (11.6-14.8) Platelet Count 213 K/UL (150-450) 206 K/UL (150-450) 199 K/UL (150-450) Mean Platelet Volume 7.3 FL (6.5-10.1) 7.3 FL (6.5-10.1) 7.5 FL (6.5-10.1) Neutrophils (%) (Auto) 84.8 % (45.0-75.0) 78.9 % (45.0-75.0) % (45.0-75.0) Lymphocytes (%) (Auto) 5.4 % (20.0-45.0) 10.4 % (20.0-45.0) % (20.0-45.0) Monocytes (%) (Auto) 7.6 % (1.0-10.0) 7.5 % (1.0-10.0) % (1.0-10.0) Eosinophils (%) (Auto) 1.7 % (0.0-3.0) 2.4 % (0.0-3.0) % (0.0-3.0) Basophils (%) (Auto) 0.4 % (0.0-2.0) 0.8 % (0.0-2.0) % (0.0-2.0) Sodium Level 148 MMOL/L (136-145) 145 MMOL/L (136-145) 145 MMOL/L (136-145) Potassium Level 3.7 MMOL/L (3.5-5.1) 3.6 MMOL/L (3.5-5.1) 3.9 MMOL/L (3.5-5.1) Chloride Level 115 MMOL/L (98-107) 114 MMOL/L (98-107) 113 MMOL/L (98-107) Carbon Dioxide Level 26 MMOL/L (21-32) 26 MMOL/L (21-32) 26 MMOL/L (21-32) Anion Gap 7 mmol/L (5-15) 5 mmol/L (5-15) 6 mmol/L (5-15) Blood Urea Nitrogen 27 mg/dL (7-18) 20 mg/dL (7-18) 18 mg/dL (7-18) Creatinine 1.2 MG/DL (0.55-1.30) 1.0 MG/DL (0.55-1.30) 1.0 MG/DL (0.55-1.30) Estimat Glomerular Filtration Rate mL/min (>60) mL/min (>60) mL/min (>60) Glucose Level 120 MG/DL (74-106) 134 MG/DL (74-106) 188 MG/DL (74-106) Uric Acid 3.1 MG/DL (2.6-7.2) Calcium Level 7.8 MG/DL (8.5-10.1) 8.1 MG/DL (8.5-10.1) 8.1 MG/DL (8.5-10.1) Phosphorus Level 2.6 MG/DL (2.5-4.9) 2.8 MG/DL (2.5-4.9) Magnesium Level 2.2 MG/DL (1.8-2.4) 1.8 MG/DL (1.8-2.4) Total Bilirubin 0.5 MG/DL (0.2-1.0) 0.4 MG/DL (0.2-1.0) Gamma Glutamyl Transpeptidase 210 U/L (5-85) 198 U/L (5-85) Aspartate Amino Transf (AST/SGOT) 119 U/L (15-37) 71 U/L (15-37) Alanine Aminotransferase (ALT/SGPT) 243 U/L (12-78) 216 U/L (12-78) Alkaline Phosphatase 140 U/L (46-116) 158 U/L (46-116) Total Protein 6.6 G/DL (6.4-8.2) 6.4 G/DL (6.4-8.2) Albumin 2.1 G/DL (3.4-5.0) 2.0 G/DL (3.4-5.0) Globulin 4.5 g/dL 4.4 g/dL Albumin/Globulin Ratio 0.5 (1.0-2.7) 0.5 (1.0-2.7) Hepatitis A IgM Antibody Negative (Negative) Hepatitis B Surface Antigen Negative (Negative) Hepatitis B Core IgM Antibody Negative (Negative) Hepatitis C Antibody 0.2 s/co ratio (0.0-0.9) Differential Total Cells Counted 100 Neutrophils % (Manual) 88 % (45-75) Lymphocytes % (Manual) 4 % (20-45) Monocytes % (Manual) 5 % (1-10) Eosinophils % (Manual) 2 % (0-3) Basophils % (Manual) 1 % (0-2) Band Neutrophils 0 % (0-8) Platelet Estimate Adequate Platelet Morphology Normal Hypochromasia 1+ Anisocytosis 1+ Total Creatine Kinase 48 U/L (26-308) C-Reactive Protein, Quantitative 11.9 mg/dL (0.00-0.90) Pro-B-Type Natriuretic Peptide 3995 pg/mL (0-125) Height (Feet): 5 Height (Inches): 8.00 Weight (Pounds): 161 Objective Vitals: reviewed Gen: no apparent distress Head: normocephalic EENT: normal ENT inspection Neck: supple Respiratory: other - intubated Cardiovascular: normal rate Gastrointestinal: gt - c/d/i Rectal: deferred Genitourinary: no CVA tenderness Skin: normal color +++ Beny Rao MD Nov 19, 2018 08:58
--- NOTE | 2018-11-19 10:20 | Infectious Diseases Prog Note ---
Assessment/Plan Assessment/Plan IMPRESSION: Sepsis, Pyuria/ UTI Pneumonia BPH, ventilator-dependent respiratory failure Leukemoid reaction,resolved Acute renal failure, improving Diabetes mellitus, anemia, hypoxemic respiratory failure, dementia. 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 Blood culture from PICC line Sputum culture Subjective ROS Limited/Unobtainable: Yes Constitutional: Reports: fever, other - T=100.9 last night Allergies: Coded Allergies: TERAZOSIN (Verified Allergy, Unknown, 10/27/17) Objective Vital Signs Last 24 Hour Vital Signs Date Time Temp Pulse Resp B/P (MAP) Pulse Ox O2 Delivery O2 Flow Rate FiO2 11/19/18 09:19 83 22 40 11/19/18 08:00 87 11/19/18 08:00 Mechanical Ventilator 11/19/18 08:00 40 11/19/18 08:00 98.0 87 24 134/67 (89) 99 11/19/18 07:30 93 37 97 Mechanical Ventilator 40 92 34 40 11/19/18 05:03 91 37 40 11/19/18 04:00 98.4 91 28 137/62 (87) 99 11/19/18 04:00 40 11/19/18 04:00 Mechanical Ventilator 11/19/18 03:43 69 11/19/18 03:19 94 41 100 Mechanical Ventilator 40 94 41 40 11/19/18 01:25 97 38 40 11/19/18 00:00 98.8 95 30 140/59 (86) 98 11/19/18 00:00 90 11/19/18 00:00 Mechanical Ventilator 11/18/18 22:54 96 42 99 Mechanical Ventilator 40 96 41 40 11/18/18 22:00 99.5 11/18/18 21:00 97 40 40 11/18/18 20:00 Mechanical Ventilator 11/18/18 20:00 100.9 93 26 124/70 (88) 100 11/18/18 20:00 98 11/18/18 20:00 40 11/18/18 19:39 94 35 97 Mechanical Ventilator 40 94 35 40 11/18/18 16:32 99 37 40 11/18/18 16:00 40 11/18/18 16:00 98.7 85 29 125/47 (73) 100 82 11/18/18 16:00 99 11/18/18 16:00 Mechanical Ventilator 11/18/18 16:00 98.7 38 134/95 (108) 97 11/18/18 15:22 84 22 100 Mechanical Ventilator 40 82 22 40 11/18/18 15:00 81 30 131/57 (81) 100 11/18/18 14:00 82 29 122/51 (74) 100 11/18/18 14:00 81 30 129/52 (77) 100 11/18/18 13:00 82 29 122/51 (74) 100 11/18/18 12:40 89 44 40 11/18/18 12:00 Mechanical Ventilator 11/18/18 12:00 98.9 85 29 125/47 (73) 100 82 11/18/18 12:00 84 11/18/18 12:00 40 11/18/18 11:09 84 48 100 Mechanical Ventilator 40 84 31 40 11/18/18 11:00 80 28 117/55 (75) 100 Height (Feet): 5 Height (Inches): 8.00 Weight (Pounds): 161 HEENT: mucous membranes moist Respiratory/Chest: lungs clear, other - on ventilator Cardiovascular: normal rate, other - R arm PICC line Abdomen: soft, non tender, other - GT feeding Extremities: other - hands edema Neurologic/Psychiatric: unresponsiveness Laboratory Tests Test 11/19/18 03:30 White Blood Count 13.5 K/UL (4.8-10.8) H Red Blood Count 3.26 M/UL (4.70-6.10) L Hemoglobin 8.9 G/DL (14.2-18.0) L Hematocrit 28.1 % (42.0-52.0) L Mean Corpuscular Volume 86 FL (80-99) Mean Corpuscular Hemoglobin 27.2 PG (27.0-31.0) Mean Corpuscular Hemoglobin Concent 31.6 G/DL (32.0-36.0) L Red Cell Distribution Width 15.3 % (11.6-14.8) H Platelet Count 199 K/UL (150-450) Mean Platelet Volume 7.5 FL (6.5-10.1) Neutrophils (%) (Auto) % (45.0-75.0) Lymphocytes (%) (Auto) % (20.0-45.0) Monocytes (%) (Auto) % (1.0-10.0) Eosinophils (%) (Auto) % (0.0-3.0) Basophils (%) (Auto) % (0.0-2.0) Differential Total Cells Counted 100 Neutrophils % (Manual) 88 % (45-75) H Lymphocytes % (Manual) 4 % (20-45) L Monocytes % (Manual) 5 % (1-10) Eosinophils % (Manual) 2 % (0-3) Basophils % (Manual) 1 % (0-2) Band Neutrophils 0 % (0-8) Platelet Estimate Adequate Platelet Morphology Normal Hypochromasia 1+ Anisocytosis 1+ Sodium Level 145 MMOL/L (136-145) Potassium Level 3.9 MMOL/L (3.5-5.1) Chloride Level 113 MMOL/L (98-107) H Carbon Dioxide Level 26 MMOL/L (21-32) Anion Gap 6 mmol/L (5-15) Blood Urea Nitrogen 18 mg/dL (7-18) Creatinine 1.0 MG/DL (0.55-1.30) Estimat Glomerular Filtration Rate mL/min (>60) Glucose Level 188 MG/DL (74-106) H Calcium Level 8.1 MG/DL (8.5-10.1) L Phosphorus Level 2.8 MG/DL (2.5-4.9) Magnesium Level 1.8 MG/DL (1.8-2.4) Total Bilirubin 0.4 MG/DL (0.2-1.0) Gamma Glutamyl Transpeptidase 198 U/L (5-85) H Aspartate Amino Transf (AST/SGOT) 71 U/L (15-37) H Alanine Aminotransferase (ALT/SGPT) 216 U/L (12-78) H Alkaline Phosphatase 158 U/L (46-116) H Total Creatine Kinase 48 U/L (26-308) C-Reactive Protein, Quantitative 11.9 mg/dL (0.00-0.90) H Pro-B-Type Natriuretic Peptide 3995 pg/mL (0-125) H Total Protein 6.4 G/DL (6.4-8.2) Albumin 2.0 G/DL (3.4-5.0) L Globulin 4.4 g/dL Albumin/Globulin Ratio 0.5 (1.0-2.7) L Current Medications Medications (Trade) Dose Ordered Sig/Ruthie Route PRN Reason Start Time Stop Time Status Last Admin Dose Admin Acetaminophen (Tylenol) 650 mg Q6H PRN NG Mild Pain/Temp > 100.5 11/18/18 17:45 12/15/18 05:44 Acetaminophen/ Hydrocodone Bitart ([place] 5/325) 1 tab Q4H PRN ORAL Moderate Pain (Pain Scale 4-6) 11/18/18 17:45 11/22/18 05:44 Albuterol/ Ipratropium (Albuterol/ Ipratropium) 3 ml Q4HRT HHN 11/18/18 19:00 11/20/18 06:59 11/19/18 07:42 Bisacodyl (Dulcolax) 10 mg DAILYPRN PRN RECTAL Constipation 11/18/18 16:30 12/18/18 16:29 Chlorhexidine Gluconate (Rachael-Hex 2%) 1 applic DAILY@2000 TOPIC 11/18/18 20:00 12/15/18 19:59 11/18/18 20:22 Dextrose (Dextrose 50%) 25 ml Q30M PRN IV Hypoglycemia 11/18/18 16:45 12/15/18 05:44 Dextrose (Dextrose 50%) 50 ml Q30M PRN IV Hypoglycemia 11/18/18 16:45 12/15/18 05:44 Dextrose/Sodium Chloride 1,000 ml @ 100 mls/hr Q10H IV 11/18/18 16:45 12/15/18 07:59 11/19/18 03:00 Doxycycline Hyclate 100 mg/ Dextrose 110 ml @ 110 mls/hr Q12HR IV 11/18/18 21:00 11/22/18 08:59 11/19/18 08:42 Heparin Sodium/ Sodium Chloride (Heparin 1000 units/500ml Premix) 1,000 unit ONCE PRN IV PICC LINE 11/18/18 16:45 11/20/18 16:44 Hydromorphone HCl (Dilaudid) 0.5 mg Q4H PRN IVP For Pain 11/18/18 17:45 11/22/18 05:44 Insulin Aspart (NovoLOG) BEFORE MEALS AND HS SUBQ 11/18/18 21:00 12/15/18 06:29 11/18/18 20:25 Lidocaine HCl (Xylocaine 1% 30ml) 30 ml ONCE PRN INJ PICC LINE 11/18/18 16:45 11/20/18 16:44 Lorazepam (Ativan 2mg/ml 1ml) 0.5 mg Q4H PRN IV For Anxiety 11/18/18 17:45 11/22/18 05:44 11/18/18 20:22 Olanzapine (ZyPREXA Zydis) 7.5 mg DAILY GT 11/19/18 09:00 12/15/18 08:59 11/19/18 08:41 Pantoprazole (Protonix) 40 mg EVERY 12 HOURS IVP 11/18/18 21:00 12/15/18 08:59 11/19/18 08:42 Piperacillin Sod/ Tazobactam Sod 3.375 gm/Sodium Chloride 110 ml @ 27.5 mls/hr Q8H IVPB 11/18/18 20:00 11/22/18 11:59 11/19/18 03:17 Quetiapine Fumarate (SEROquel) 50 mg DAILY GT 11/19/18 09:00 12/15/18 08:59 11/19/18 08:40 Tamsulosin HCl (Flomax) 0.4 mg BEDTIME ORAL 11/18/18 21:00 12/15/18 20:59 11/18/18 20:24 Anam Cruz MD Nov 19, 2018 10:20
--- NOTE | 2018-11-19 10:36 | GI Progress Note ---
Assessment/Plan Problems: (1) PEG (percutaneous endoscopic gastrostomy) status ICD Codes: Z93.1 - Gastrostomy status SNOMED: 762248820, 456159114 (2) GIB (gastrointestinal bleeding) ICD Codes: K92.2 - Gastrointestinal hemorrhage, unspecified SNOMED: 63854393 (3) Anemia ICD Codes: D64.9 - Anemia, unspecified SNOMED: 035544880 (4) Constipation ICD Codes: K59.00 - Constipation, unspecified SNOMED: 50482522 (5) Gastrostomy tube dependent ICD Codes: Z93.1 - Gastrostomy status SNOMED: 436097857, 562987665 (6) DM (7) Encephalopathy due to metabolic factor or toxin SNOMED: 896938270 Status: stable, unchanged Status Narrative Discussed with Dr. Coronel. Assessment/Plan OB stool positive hepatitis panel negative ppi prn blood transfusion abx per ID GTF EGD on hold given stable H&H, follow up second OB stool Hold iron supplementation given elevated ferritin levels abx fu labs The patient was seen and examined at bedside and all new and available data was reviewed in the patients chart. I agree with the above findings, impression and plan. (Patient seen earlier today. Signature stamp does not reflect patient encounter time.). - Juan Coronel MD Subjective Subjective limited Objective Last 24 Hour Vital Signs Date Time Temp Pulse Resp B/P (MAP) Pulse Ox O2 Delivery O2 Flow Rate FiO2 11/19/18 09:19 83 22 40 11/19/18 08:00 87 11/19/18 08:00 Mechanical Ventilator 11/19/18 08:00 40 11/19/18 08:00 98.0 87 24 134/67 (89) 99 11/19/18 07:30 93 37 97 Mechanical Ventilator 40 92 34 40 11/19/18 05:03 91 37 40 11/19/18 04:00 98.4 91 28 137/62 (87) 99 11/19/18 04:00 40 11/19/18 04:00 Mechanical Ventilator 11/19/18 03:43 69 11/19/18 03:19 94 41 100 Mechanical Ventilator 40 94 41 40 11/19/18 01:25 97 38 40 11/19/18 00:00 98.8 95 30 140/59 (86) 98 11/19/18 00:00 90 11/19/18 00:00 Mechanical Ventilator 11/18/18 22:54 96 42 99 Mechanical Ventilator 40 96 41 40 11/18/18 22:00 99.5 11/18/18 21:00 97 40 40 11/18/18 20:00 Mechanical Ventilator 11/18/18 20:00 100.9 93 26 124/70 (88) 100 11/18/18 20:00 98 11/18/18 20:00 40 11/18/18 19:39 94 35 97 Mechanical Ventilator 40 94 35 40 11/18/18 16:32 99 37 40 11/18/18 16:00 40 11/18/18 16:00 98.7 85 29 125/47 (73) 100 82 11/18/18 16:00 99 11/18/18 16:00 Mechanical Ventilator 11/18/18 16:00 98.7 38 134/95 (108) 97 11/18/18 15:22 84 22 100 Mechanical Ventilator 40 82 22 40 11/18/18 15:00 81 30 131/57 (81) 100 11/18/18 14:00 82 29 122/51 (74) 100 11/18/18 14:00 81 30 129/52 (77) 100 11/18/18 13:00 82 29 122/51 (74) 100 11/18/18 12:40 89 44 40 11/18/18 12:00 Mechanical Ventilator 11/18/18 12:00 98.9 85 29 125/47 (73) 100 82 11/18/18 12:00 84 11/18/18 12:00 40 11/18/18 11:09 84 48 100 Mechanical Ventilator 40 84 31 40 11/18/18 11:00 80 28 117/55 (75) 100 Intake and Output 11/18/18 11/19/18 19:00 07:00 Intake Total 2275.5 ml 2082.5 ml Output Total 350 ml 400 ml Balance 1925.5 ml 1682.5 ml Intake Free Water 520 ml 30 ml IV Total 1260.5 ml 1777.5 ml Tube Feeding 495 ml 275 ml Output Urine Total 350 ml 400 ml # Voids 4 2 # Bowel Movements 2 Laboratory Tests Test 11/19/18 03:30 White Blood Count 13.5 K/UL (4.8-10.8) H Red Blood Count 3.26 M/UL (4.70-6.10) L Hemoglobin 8.9 G/DL (14.2-18.0) L Hematocrit 28.1 % (42.0-52.0) L Mean Corpuscular Volume 86 FL (80-99) Mean Corpuscular Hemoglobin 27.2 PG (27.0-31.0) Mean Corpuscular Hemoglobin Concent 31.6 G/DL (32.0-36.0) L Red Cell Distribution Width 15.3 % (11.6-14.8) H Platelet Count 199 K/UL (150-450) Mean Platelet Volume 7.5 FL (6.5-10.1) Neutrophils (%) (Auto) % (45.0-75.0) Lymphocytes (%) (Auto) % (20.0-45.0) Monocytes (%) (Auto) % (1.0-10.0) Eosinophils (%) (Auto) % (0.0-3.0) Basophils (%) (Auto) % (0.0-2.0) Differential Total Cells Counted 100 Neutrophils % (Manual) 88 % (45-75) H Lymphocytes % (Manual) 4 % (20-45) L Monocytes % (Manual) 5 % (1-10) Eosinophils % (Manual) 2 % (0-3) Basophils % (Manual) 1 % (0-2) Band Neutrophils 0 % (0-8) Platelet Estimate Adequate Platelet Morphology Normal Hypochromasia 1+ Anisocytosis 1+ Sodium Level 145 MMOL/L (136-145) Potassium Level 3.9 MMOL/L (3.5-5.1) Chloride Level 113 MMOL/L (98-107) H Carbon Dioxide Level 26 MMOL/L (21-32) Anion Gap 6 mmol/L (5-15) Blood Urea Nitrogen 18 mg/dL (7-18) Creatinine 1.0 MG/DL (0.55-1.30) Estimat Glomerular Filtration Rate mL/min (>60) Glucose Level 188 MG/DL (74-106) H Calcium Level 8.1 MG/DL (8.5-10.1) L Phosphorus Level 2.8 MG/DL (2.5-4.9) Magnesium Level 1.8 MG/DL (1.8-2.4) Total Bilirubin 0.4 MG/DL (0.2-1.0) Gamma Glutamyl Transpeptidase 198 U/L (5-85) H Aspartate Amino Transf (AST/SGOT) 71 U/L (15-37) H Alanine Aminotransferase (ALT/SGPT) 216 U/L (12-78) H Alkaline Phosphatase 158 U/L (46-116) H Total Creatine Kinase 48 U/L (26-308) C-Reactive Protein, Quantitative 11.9 mg/dL (0.00-0.90) H Pro-B-Type Natriuretic Peptide 3995 pg/mL (0-125) H Total Protein 6.4 G/DL (6.4-8.2) Albumin 2.0 G/DL (3.4-5.0) L Globulin 4.4 g/dL Albumin/Globulin Ratio 0.5 (1.0-2.7) L Height (Feet): 5 Height (Inches): 8.00 Weight (Pounds): 161 General Appearance: no apparent distress Cardiovascular: normal rate Respiratory/Chest: normal breath sounds, no respiratory distress, other - mech vent Abdominal Exam: normal bowel sounds, non tender, soft, GT site Extremities: non-tender Kishan Hopkins NP Nov 19, 2018 10:36
--- NOTE | 2018-11-19 10:57 | Nephrology Progress Note ---
Assessment/Plan Problem List: (1) Septic shock (2) Ventilator dependence (3) Renal failure (ARF), acute on chronic (4) Prostate enlargement (5) Anemia Assessment Septic Shock Acute renal failure CKD underlying BPH Sever Anemia Chronic trach-Vent DM HypoAlbuminemia HyperNatremia Dementia Troponin elevation Plan labs reviewed Fluid challenge avoid Nephrotoxics transfuse crabtree monitor urine out put and renal parameters per orders Subjective ROS Limited/Unobtainable: Yes Objective Objective Last 24 Hour Vital Signs Date Time Temp Pulse Resp B/P (MAP) Pulse Ox O2 Delivery O2 Flow Rate FiO2 11/19/18 09:19 83 22 40 11/19/18 08:00 87 11/19/18 08:00 Mechanical Ventilator 11/19/18 08:00 40 11/19/18 08:00 98.0 87 24 134/67 (89) 99 11/19/18 07:30 93 37 97 Mechanical Ventilator 40 92 34 40 11/19/18 05:03 91 37 40 11/19/18 04:00 98.4 91 28 137/62 (87) 99 11/19/18 04:00 40 11/19/18 04:00 Mechanical Ventilator 11/19/18 03:43 69 11/19/18 03:19 94 41 100 Mechanical Ventilator 40 94 41 40 11/19/18 01:25 97 38 40 11/19/18 00:00 98.8 95 30 140/59 (86) 98 11/19/18 00:00 90 11/19/18 00:00 Mechanical Ventilator 11/18/18 22:54 96 42 99 Mechanical Ventilator 40 96 41 40 11/18/18 22:00 99.5 11/18/18 21:00 97 40 40 11/18/18 20:00 Mechanical Ventilator 11/18/18 20:00 100.9 93 26 124/70 (88) 100 11/18/18 20:00 98 11/18/18 20:00 40 11/18/18 19:39 94 35 97 Mechanical Ventilator 40 94 35 40 11/18/18 16:32 99 37 40 11/18/18 16:00 40 11/18/18 16:00 98.7 85 29 125/47 (73) 100 82 11/18/18 16:00 99 11/18/18 16:00 Mechanical Ventilator 11/18/18 16:00 98.7 38 134/95 (108) 97 11/18/18 15:22 84 22 100 Mechanical Ventilator 40 82 22 40 11/18/18 15:00 81 30 131/57 (81) 100 11/18/18 14:00 82 29 122/51 (74) 100 11/18/18 14:00 81 30 129/52 (77) 100 11/18/18 13:00 82 29 122/51 (74) 100 11/18/18 12:40 89 44 40 11/18/18 12:00 Mechanical Ventilator 11/18/18 12:00 98.9 85 29 125/47 (73) 100 82 11/18/18 12:00 84 11/18/18 12:00 40 11/18/18 11:09 84 48 100 Mechanical Ventilator 40 84 31 40 11/18/18 11:00 80 28 117/55 (75) 100 Intake and Output 11/18/18 11/19/18 19:00 07:00 Intake Total 2275.5 ml 2082.5 ml Output Total 350 ml 400 ml Balance 1925.5 ml 1682.5 ml Intake Free Water 520 ml 30 ml IV Total 1260.5 ml 1777.5 ml Tube Feeding 495 ml 275 ml Output Urine Total 350 ml 400 ml # Voids 4 2 # Bowel Movements 2 Laboratory Tests 11/19/18 03:30: White Blood Count 13.5H, Red Blood Count 3.26L, Hemoglobin 8.9L, Hematocrit 28.1L, Mean Corpuscular Volume 86, Mean Corpuscular Hemoglobin 27.2, Mean Corpuscular Hemoglobin Concent 31.6L, Red Cell Distribution Width 15.3H, Platelet Count 199, Mean Platelet Volume 7.5, Neutrophils (%) (Auto) , Lymphocytes (%) (Auto) , Monocytes (%) (Auto) , Eosinophils (%) (Auto) , Basophils (%) (Auto) , Differential Total Cells Counted 100, Neutrophils % ( Manual) 88H, Lymphocytes % (Manual) 4L, Monocytes % (Manual) 5, Eosinophils % ( Manual) 2, Basophils % (Manual) 1, Band Neutrophils 0, Platelet Estimate Adequate, Platelet Morphology Normal, Hypochromasia 1+, Anisocytosis 1+, Sodium Level 145, Potassium Level 3.9, Chloride Level 113H, Carbon Dioxide Level 26, Anion Gap 6, Blood Urea Nitrogen 18, Creatinine 1.0, Estimat Glomerular Filtration Rate , Glucose Level 188H, Calcium Level 8.1L, Phosphorus Level 2.8, Magnesium Level 1.8, Total Bilirubin 0.4, Gamma Glutamyl Transpeptidase 198H, Aspartate Amino Transf (AST/SGOT) 71H, Alanine Aminotransferase (ALT/SGPT) 216H , Alkaline Phosphatase 158H, Total Creatine Kinase 48, C-Reactive Protein, Quantitative 11.9H, Pro-B-Type Natriuretic Peptide 3995H, Total Protein 6.4, Albumin 2.0L, Globulin 4.4, Albumin/Globulin Ratio 0.5L Height (Feet): 5 Height (Inches): 8.00 Weight (Pounds): 161 General Appearance: no apparent distress EENT: other - trach Respiratory/Chest: decreased breath sounds Abdomen: distended Objective no change Randolph Fernandes MD Nov 19, 2018 10:57
[2018-11-19 12:00] VITALS: BP 140/76
--- NOTE | 2018-11-19 12:50 | Pulmonolgy Critical Care Note ---
Critical Care - Asmt/Plan Assessment/Plan: Pulmonary Critical Care Progress Note HPI Patient is an 88-year-old male admitted from [facility] with fever, Pneumonia. Patient had prior history of Dementia, BPH, Diabetes, Hypertension as well as CHF. Patient is chronically ventilator dependent. History is limited by patient's mental status - non verbal on ventilator Allergies: TERAZOSIN Past Medical History: Dementia, Organic Brain Syndrome, BPH, Diabetes, Hypertension, CHF, G tube All Other Systems: limited - Review of systems Stable overnight Physical Exam Vital Signs Noted General Appearance: Chronically Ill Eyes: PERRL Neck: dry mm, trach site cdi Respiratory: CTAB Heart: HS1, HS2, RRR Gastrointestinal: no pulsatile mass, Gtube CDI Musculoskeletal: decreased range of motion, weak, wasted, congtracted Neurologic: Reduced LOC, contracted, orthotics in place Impression: Pneumonia Ventilator dependant respiratory failure Severe sepsis - improved Mild Pulmonary congestion on CXR NSTEMI Anemia - H+H stable Dysphagia s/p G tube Chronic wounds Dementia Organic Brain Syndrome Diabetes Chronic renal disease Prostate enlargement Penile wound CHF H/o Hypertension Low Albumin c/w Protein Calorie Malnutrition, chronic illness Plan Antibiotics per ID Diurese PRN HHN Q4 Continue current AC ventilator sttings Adjust FIO2 for sats 90-96% Monitor cultures LE dupplex negative Monitor labs, Troponin, Lactate PPX - SCD, IV Protonix [employer] 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 Tracheostomy tube terminates in the region of the upper thoracic trachea. Probable G-tube projected over the upper abdomen. 2. Diffuse hazy and interstitial opacities are concerning for pulmonary edema and pulmonary vasculature congestion. Bilateral pleural effusions with associated atelectasis versus pneumonia. Critical Care - Objective Last 24 Hour Vital Signs Date Time Temp Pulse Resp B/P (MAP) Pulse Ox O2 Delivery O2 Flow Rate FiO2 11/19/18 12:00 40 11/19/18 12:00 Mechanical Ventilator 11/19/18 11:36 79 23 97 Mechanical Ventilator 40 79 23 40 11/19/18 09:19 83 22 40 11/19/18 08:00 87 11/19/18 08:00 Mechanical Ventilator 11/19/18 08:00 40 11/19/18 08:00 98.0 87 24 134/67 (89) 99 11/19/18 07:30 93 37 97 Mechanical Ventilator 40 92 34 40 11/19/18 05:03 91 37 40 11/19/18 04:00 98.4 91 28 137/62 (87) 99 11/19/18 04:00 40 11/19/18 04:00 Mechanical Ventilator 11/19/18 03:43 69 11/19/18 03:19 94 41 100 Mechanical Ventilator 40 94 41 40 11/19/18 01:25 97 38 40 11/19/18 00:00 98.8 95 30 140/59 (86) 98 11/19/18 00:00 90 11/19/18 00:00 Mechanical Ventilator 11/18/18 22:54 96 42 99 Mechanical Ventilator 40 96 41 40 11/18/18 22:00 99.5 11/18/18 21:00 97 40 40 11/18/18 20:00 Mechanical Ventilator 11/18/18 20:00 100.9 93 26 124/70 (88) 100 11/18/18 20:00 98 11/18/18 20:00 40 11/18/18 19:39 94 35 97 Mechanical Ventilator 40 94 35 40 11/18/18 16:32 99 37 40 11/18/18 16:00 40 11/18/18 16:00 98.7 85 29 125/47 (73) 100 82 11/18/18 16:00 99 11/18/18 16:00 Mechanical Ventilator 11/18/18 16:00 98.7 38 134/95 (108) 97 11/18/18 15:22 84 22 100 Mechanical Ventilator 40 82 22 40 11/18/18 15:00 81 30 131/57 (81) 100 11/18/18 14:00 82 29 122/51 (74) 100 11/18/18 14:00 81 30 129/52 (77) 100 11/18/18 13:00 82 29 122/51 (74) 100 Accucheck: 122 Critical Care - Subjective ROS Limited/Unobtainable: No FI02: 40 Vent Support Breath Rate: 22 Vent Support Mode: AC Vent Tidal Volume: 400 Sputum Amount: Small PEEP: 5.0 PIP: 35 Tube Feeding Amount: 55 I&O: Intake and Output 11/18/18 11/19/18 19:00 07:00 Intake Total 2275.5 ml 2082.5 ml Output Total 350 ml 400 ml Balance 1925.5 ml 1682.5 ml Intake Free Water 520 ml 30 ml IV Total 1260.5 ml 1777.5 ml Tube Feeding 495 ml 275 ml Output Urine Total 350 ml 400 ml # Voids 4 2 # Bowel Movements 2 Booker Baumann MD Nov 19, 2018 12:50
--- NOTE | 2018-11-19 13:11 | Cardiac Electrophysiology PN ---
Assessment/Plan Assessment/Plan 1. S/P Septic shock with white count of 50,000 and lactic acid of 6. On IV antibiotic and IV fluid . Ech Nl EF. WBC down to 13 2. Congestive heart failure with BNP of more than 17,000. The patient has septic shock, endocarditis, and maintaining his blood pressure. The patient is already on the ventilator via tracheostomy anyway. 3. Troponin elevation, likely due to renal failure and anemia and septic shock. The levels are flat. EKG does not show any ST elevation. 4. Acute renal failure. BUN of 48, creatinine of 2.5. Resolved 5. Hypernatremia. Sodium of 150.iv fluid 6. Ventilator-dependent respiratory failure, status post tracheostomy. 7. Dysphagia, status post PEG placement. 8. Profound anemia, hemoglobin of 6.5, rule out GI bleed. S/P blood transfusion. RICARDA RN Subjective Subjective In ICU on the Vent in SR Objective Last 24 Hour Vital Signs Date Time Temp Pulse Resp B/P (MAP) Pulse Ox O2 Delivery O2 Flow Rate FiO2 11/19/18 12:00 40 11/19/18 12:00 Mechanical Ventilator 11/19/18 12:00 98.2 82 24 140/76 (97) 98 11/19/18 11:44 79 11/19/18 11:36 79 23 97 Mechanical Ventilator 40 79 23 40 11/19/18 09:19 83 22 40 11/19/18 08:00 87 11/19/18 08:00 Mechanical Ventilator 11/19/18 08:00 40 11/19/18 08:00 98.0 87 24 134/67 (89) 99 11/19/18 07:30 93 37 97 Mechanical Ventilator 40 92 34 40 11/19/18 05:03 91 37 40 11/19/18 04:00 98.4 91 28 137/62 (87) 99 11/19/18 04:00 40 11/19/18 04:00 Mechanical Ventilator 11/19/18 03:43 69 11/19/18 03:19 94 41 100 Mechanical Ventilator 40 94 41 40 11/19/18 01:25 97 38 40 11/19/18 00:00 98.8 95 30 140/59 (86) 98 11/19/18 00:00 90 11/19/18 00:00 Mechanical Ventilator 11/18/18 22:54 96 42 99 Mechanical Ventilator 40 96 41 40 11/18/18 22:00 99.5 11/18/18 21:00 97 40 40 11/18/18 20:00 Mechanical Ventilator 11/18/18 20:00 100.9 93 26 124/70 (88) 100 11/18/18 20:00 98 11/18/18 20:00 40 11/18/18 19:39 94 35 97 Mechanical Ventilator 40 94 35 40 11/18/18 16:32 99 37 40 11/18/18 16:00 40 11/18/18 16:00 98.7 85 29 125/47 (73) 100 82 11/18/18 16:00 99 11/18/18 16:00 Mechanical Ventilator 11/18/18 16:00 98.7 38 134/95 (108) 97 11/18/18 15:22 84 22 100 Mechanical Ventilator 40 82 22 40 11/18/18 15:00 81 30 131/57 (81) 100 11/18/18 14:00 82 29 122/51 (74) 100 11/18/18 14:00 81 30 129/52 (77) 100 Intake and Output 11/18/18 11/19/18 19:00 07:00 Intake Total 2275.5 ml 2082.5 ml Output Total 350 ml 400 ml Balance 1925.5 ml 1682.5 ml Intake Free Water 520 ml 30 ml IV Total 1260.5 ml 1777.5 ml Tube Feeding 495 ml 275 ml Output Urine Total 350 ml 400 ml # Voids 4 2 # Bowel Movements 2 Laboratory Tests Test 11/19/18 03:30 White Blood Count 13.5 K/UL (4.8-10.8) H Red Blood Count 3.26 M/UL (4.70-6.10) L Hemoglobin 8.9 G/DL (14.2-18.0) L Hematocrit 28.1 % (42.0-52.0) L Mean Corpuscular Volume 86 FL (80-99) Mean Corpuscular Hemoglobin 27.2 PG (27.0-31.0) Mean Corpuscular Hemoglobin Concent 31.6 G/DL (32.0-36.0) L Red Cell Distribution Width 15.3 % (11.6-14.8) H Platelet Count 199 K/UL (150-450) Mean Platelet Volume 7.5 FL (6.5-10.1) Neutrophils (%) (Auto) % (45.0-75.0) Lymphocytes (%) (Auto) % (20.0-45.0) Monocytes (%) (Auto) % (1.0-10.0) Eosinophils (%) (Auto) % (0.0-3.0) Basophils (%) (Auto) % (0.0-2.0) Differential Total Cells Counted 100 Neutrophils % (Manual) 88 % (45-75) H Lymphocytes % (Manual) 4 % (20-45) L Monocytes % (Manual) 5 % (1-10) Eosinophils % (Manual) 2 % (0-3) Basophils % (Manual) 1 % (0-2) Band Neutrophils 0 % (0-8) Platelet Estimate Adequate Platelet Morphology Normal Hypochromasia 1+ Anisocytosis 1+ Sodium Level 145 MMOL/L (136-145) Potassium Level 3.9 MMOL/L (3.5-5.1) Chloride Level 113 MMOL/L (98-107) H Carbon Dioxide Level 26 MMOL/L (21-32) Anion Gap 6 mmol/L (5-15) Blood Urea Nitrogen 18 mg/dL (7-18) Creatinine 1.0 MG/DL (0.55-1.30) Estimat Glomerular Filtration Rate mL/min (>60) Glucose Level 188 MG/DL (74-106) H Calcium Level 8.1 MG/DL (8.5-10.1) L Phosphorus Level 2.8 MG/DL (2.5-4.9) Magnesium Level 1.8 MG/DL (1.8-2.4) Total Bilirubin 0.4 MG/DL (0.2-1.0) Gamma Glutamyl Transpeptidase 198 U/L (5-85) H Aspartate Amino Transf (AST/SGOT) 71 U/L (15-37) H Alanine Aminotransferase (ALT/SGPT) 216 U/L (12-78) H Alkaline Phosphatase 158 U/L (46-116) H Total Creatine Kinase 48 U/L (26-308) C-Reactive Protein, Quantitative 11.9 mg/dL (0.00-0.90) H Pro-B-Type Natriuretic Peptide 3995 pg/mL (0-125) H Total Protein 6.4 G/DL (6.4-8.2) Albumin 2.0 G/DL (3.4-5.0) L Globulin 4.4 g/dL Albumin/Globulin Ratio 0.5 (1.0-2.7) L Objective HEAD AND NECK: Status post tracheostomy. LUNGS: Coarse rhonchi. CARDIOVASCULAR: Irregular irregular S1 and S2 with no gallop. ABDOMEN: Status post G-tube, distended. EXTREMITIES: Reveal 1+ edema. Luke Prather MD Nov 19, 2018 13:11
--- NOTE | 2018-11-19 14:35 | Surgery Progress Note ---
Surgery Progress Note Subjective Additional Comments slowly improving out of ICU exam stable labs noted leukocytosis Objective Last 24 Hour Vital Signs Date Time Temp Pulse Resp B/P (MAP) Pulse Ox O2 Delivery O2 Flow Rate FiO2 11/19/18 13:18 83 29 40 11/19/18 12:00 40 11/19/18 12:00 Mechanical Ventilator 11/19/18 12:00 98.2 82 24 140/76 (97) 98 11/19/18 11:44 79 11/19/18 11:36 79 23 97 Mechanical Ventilator 40 79 23 40 11/19/18 09:19 83 22 40 11/19/18 08:00 87 11/19/18 08:00 Mechanical Ventilator 11/19/18 08:00 40 11/19/18 08:00 98.0 87 24 134/67 (89) 99 11/19/18 07:30 93 37 97 Mechanical Ventilator 40 92 34 40 11/19/18 05:03 91 37 40 11/19/18 04:00 98.4 91 28 137/62 (87) 99 11/19/18 04:00 40 11/19/18 04:00 Mechanical Ventilator 11/19/18 03:43 69 11/19/18 03:19 94 41 100 Mechanical Ventilator 40 94 41 40 11/19/18 01:25 97 38 40 11/19/18 00:00 98.8 95 30 140/59 (86) 98 11/19/18 00:00 90 11/19/18 00:00 Mechanical Ventilator 11/18/18 22:54 96 42 99 Mechanical Ventilator 40 96 41 40 11/18/18 22:00 99.5 11/18/18 21:00 97 40 40 11/18/18 20:00 Mechanical Ventilator 11/18/18 20:00 100.9 93 26 124/70 (88) 100 11/18/18 20:00 98 11/18/18 20:00 40 11/18/18 19:39 94 35 97 Mechanical Ventilator 40 94 35 40 11/18/18 16:32 99 37 40 11/18/18 16:00 40 11/18/18 16:00 98.7 85 29 125/47 (73) 100 82 11/18/18 16:00 99 11/18/18 16:00 Mechanical Ventilator 11/18/18 16:00 98.7 38 134/95 (108) 97 11/18/18 15:22 84 22 100 Mechanical Ventilator 40 82 22 40 11/18/18 15:00 81 30 131/57 (81) 100 I&O Intake and Output 11/18/18 11/19/18 19:00 07:00 Intake Total 2275.5 ml 2082.5 ml Output Total 350 ml 400 ml Balance 1925.5 ml 1682.5 ml Intake Free Water 520 ml 30 ml IV Total 1260.5 ml 1777.5 ml Tube Feeding 495 ml 275 ml Output Urine Total 350 ml 400 ml # Voids 4 2 # Bowel Movements 2 Dressing: saturated Wound: other Drains: other Cardiovascular: RSR Respiratory: decreased breath sounds Abdomen: soft, present bowel sounds, non-distended Extremities: no cyanosis, other Laboratory Tests Test 11/19/18 03:30 White Blood Count 13.5 K/UL (4.8-10.8) H Red Blood Count 3.26 M/UL (4.70-6.10) L Hemoglobin 8.9 G/DL (14.2-18.0) L Hematocrit 28.1 % (42.0-52.0) L Mean Corpuscular Volume 86 FL (80-99) Mean Corpuscular Hemoglobin 27.2 PG (27.0-31.0) Mean Corpuscular Hemoglobin Concent 31.6 G/DL (32.0-36.0) L Red Cell Distribution Width 15.3 % (11.6-14.8) H Platelet Count 199 K/UL (150-450) Mean Platelet Volume 7.5 FL (6.5-10.1) Neutrophils (%) (Auto) % (45.0-75.0) Lymphocytes (%) (Auto) % (20.0-45.0) Monocytes (%) (Auto) % (1.0-10.0) Eosinophils (%) (Auto) % (0.0-3.0) Basophils (%) (Auto) % (0.0-2.0) Differential Total Cells Counted 100 Neutrophils % (Manual) 88 % (45-75) H Lymphocytes % (Manual) 4 % (20-45) L Monocytes % (Manual) 5 % (1-10) Eosinophils % (Manual) 2 % (0-3) Basophils % (Manual) 1 % (0-2) Band Neutrophils 0 % (0-8) Platelet Estimate Adequate Platelet Morphology Normal Hypochromasia 1+ Anisocytosis 1+ Sodium Level 145 MMOL/L (136-145) Potassium Level 3.9 MMOL/L (3.5-5.1) Chloride Level 113 MMOL/L (98-107) H Carbon Dioxide Level 26 MMOL/L (21-32) Anion Gap 6 mmol/L (5-15) Blood Urea Nitrogen 18 mg/dL (7-18) Creatinine 1.0 MG/DL (0.55-1.30) Estimat Glomerular Filtration Rate mL/min (>60) Glucose Level 188 MG/DL (74-106) H Calcium Level 8.1 MG/DL (8.5-10.1) L Phosphorus Level 2.8 MG/DL (2.5-4.9) Magnesium Level 1.8 MG/DL (1.8-2.4) Total Bilirubin 0.4 MG/DL (0.2-1.0) Gamma Glutamyl Transpeptidase 198 U/L (5-85) H Aspartate Amino Transf (AST/SGOT) 71 U/L (15-37) H Alanine Aminotransferase (ALT/SGPT) 216 U/L (12-78) H Alkaline Phosphatase 158 U/L (46-116) H Total Creatine Kinase 48 U/L (26-308) C-Reactive Protein, Quantitative 11.9 mg/dL (0.00-0.90) H Pro-B-Type Natriuretic Peptide 3995 pg/mL (0-125) H Total Protein 6.4 G/DL (6.4-8.2) Albumin 2.0 G/DL (3.4-5.0) L Globulin 4.4 g/dL Albumin/Globulin Ratio 0.5 (1.0-2.7) L Plan Problems: (1) Severe sepsis Assessment & Plan: leukocytosis, anemia, lactic acidosis, fevers IV Abx imaging noted and reviewed US with no stones or dilated ducts elevated lft's likely due to liver disease exam as below cont abx trend labs thank you will follow with recs (2) Malnutrition Assessment & Plan: DAILY ESTIMATED NEEDS: Needs based on Critical care, sepsis 71.8 kg 22-30 kcals/kg 0602-4276 total kcals 1.2-2 g protein/kg 86- 144 g total protein 25-30 mL/kg 1795- 2154 total fluid mLs NUTRITION DIAGNOSIS: * Swallowing difficulty R/T respiratory status and dysphagia as evidenced by pt is vent dep, on TF. * Altered nutrition related lab values r/t sepsis, clinical status, h/o Diabetes as evidenced by critically elev WBC (47.2), low Hgb (6.6), elev BNP, low BP (96/41), BG 191, POC 179. CURRENT TF: Jevity 1.2 @ 70mL/hr x 20hr - NOW NPO ENTERAL NUTRITION RECOMMENDATIONS: Vital 1.2 @55mL/hr x24 hrs to provide 1320mL, 1584kcal, 99g pro, 1071mL free H2O * As medically appropriate to feed, rec TF change to VITAL 1.2 for critical care. * Start Vital 1,2, @25mL, advance as tolerated 10ml/hr q4-6 hrs to goal * HOB over 30 degrees/ water flush per MD --- Low Hgb (6.6), NPO per GI-> rec trophic feeds when appropriate if pt remains hypotensive. ADDITIONAL RECOMMENDATIONS: * Per SNF: HT 68 inches WT 158 lbs + Daily calibrated bed scale wts * Change TF to Vital 1.2, as medically able to feed * Monitor lytes (replete as needed) * F/up w/ WC eval . (3) Sacral decubitus ulcer Assessment & Plan: Pt presented on admission with contractures and multiple pressure injuries. Partially opened DTPI L buttocks. Base of wound moist - viable with surrounding dark and fluctuant borders.(L)1.2cm x (W)1cm. Small amt of sanguineous exudate noted. No odor noted. Hyperpigmentation noted to sacrum. Historical scar from previous wound noted to L trochanter. Penile head retracted within foreskin and small wound noted within folds of foreskin. Wound is moist and viable. No odor or exudate noted. No erythema noted periwound. Resolving pressure injury plantar R heel. Base of wound 50% epithelialized, 50% moist and viable.(L)5.5cm x (W)6.5cm. Resolving pressure injury lateral L heel. Base of wound is moist and viable with surrounding hyperpigmentation.(L)0.6cm x (W)0.5cm. Scattered loose, dry brown skin noted to medial and posterior L heel. Tx.Plan: Apply Moisture Barrier Paste to L buttocks and sacrum. Cover with Optifoam drsg. Change every 3 days and prn. Cleanse head of penis with soap and water. Apply Bacitracin oint Twice Daily. Apply Betadine to R and L heel wounds. Cover each heel with Optifoam drsg. Daily and prn. APM/ABDELRAHMAN Mattress overlay. Reposition at least every 2hours and prn. Off-load heels with pillow. Don Carvalho Nov 19, 2018 14:35
[2018-11-19 16:00] VITALS: BP 141/88
[2018-11-19 20:00] VITALS: BP 141/75
--- NOTE | 2018-11-19 20:01 | General Progress Note ---
Assessment/Plan Problem List: (1) Hypernatremia ICD Codes: E87.0 - Hyperosmolality and hypernatremia SNOMED: 63638430 (2) Rhabdomyolysis ICD Codes: M62.82 - Rhabdomyolysis SNOMED: 105953901 (3) Sacral decubitus ulcer ICD Codes: L89.159 - Pressure ulcer of sacral region, unspecified stage SNOMED: 594707328 (4) Severe sepsis ICD Codes: A41.9 - Sepsis, unspecified organism; R65.20 - Severe sepsis without septic shock SNOMED: 47486003 (5) Septic shock ICD Codes: A41.9 - Sepsis, unspecified organism; R65.21 - Severe sepsis with septic shock SNOMED: 11430403 (6) DM (7) Anemia ICD Codes: D64.9 - Anemia, unspecified SNOMED: 294974817 (8) Prostate enlargement ICD Codes: N40.0 - Benign prostatic hyperplasia without lower urinary tract symptoms SNOMED: 235188597 (9) Chronic renal disease ICD Codes: N18.9 - Chronic kidney disease, unspecified SNOMED: 323525632 (10) Ventilator dependence ICD Codes: Z99.11 - Dependence on respirator [ventilator] status SNOMED: 444726698 (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 - Gastrostomy status SNOMED: 934050460, 516336432 (12) Malnutrition ICD Codes: E46 - Unspecified protein-calorie malnutrition SNOMED: 06494684 Status: stable, unchanged Assessment/Plan: leukocytosis improving no wheezing edema s/p anasarva fluid mangement cri chf hypernatremia improving bph uti reviewed chart and labs Subjective ROS Limited/Unobtainable: Yes Allergies: Coded Allergies: TERAZOSIN (Verified Allergy, Unknown, 10/27/17) Objective Last 24 Hour Vital Signs Date Time Temp Pulse Resp B/P (MAP) Pulse Ox O2 Delivery O2 Flow Rate FiO2 11/19/18 19:30 120 37 40 11/19/18 17:36 84 24 40 11/19/18 17:21 84 24 40 11/19/18 16:00 98.9 87 24 141/88 (105) 96 11/19/18 16:00 Mechanical Ventilator 11/19/18 16:00 40 11/19/18 15:14 87 11/19/18 15:09 87 23 97 Mechanical Ventilator 40 87 22 40 11/19/18 13:18 83 29 40 11/19/18 12:00 40 11/19/18 12:00 Mechanical Ventilator 11/19/18 12:00 98.2 82 24 140/76 (97) 98 11/19/18 11:44 79 11/19/18 11:36 79 23 97 Mechanical Ventilator 40 79 23 40 11/19/18 09:19 83 22 40 11/19/18 08:00 87 11/19/18 08:00 Mechanical Ventilator 11/19/18 08:00 40 11/19/18 08:00 98.0 87 24 134/67 (89) 99 11/19/18 07:30 93 37 97 Mechanical Ventilator 40 92 34 40 11/19/18 05:03 91 37 40 11/19/18 04:00 98.4 91 28 137/62 (87) 99 11/19/18 04:00 40 11/19/18 04:00 Mechanical Ventilator 11/19/18 03:43 69 11/19/18 03:19 94 41 100 Mechanical Ventilator 40 94 41 40 11/19/18 01:25 97 38 40 11/19/18 00:00 98.8 95 30 140/59 (86) 98 11/19/18 00:00 90 11/19/18 00:00 Mechanical Ventilator 11/18/18 22:54 96 42 99 Mechanical Ventilator 40 96 41 40 11/18/18 22:00 99.5 11/18/18 21:00 97 40 40 11/18/18 20:00 Mechanical Ventilator 11/18/18 20:00 100.9 93 26 124/70 (88) 100 11/18/18 20:00 98 11/18/18 20:00 40 Intake and Output 11/18/18 11/19/18 18:59 06:59 Intake Total 2358.0 ml 2027.5 ml Output Total 350 ml 400 ml Balance 2008.0 ml 1627.5 ml Intake Free Water 520 ml 30 ml IV Total 1288.0 ml 1777.5 ml Tube Feeding 550 ml 220 ml Output Urine Total 350 ml 400 ml # Voids 4 2 # Bowel Movements 2 Laboratory Tests 11/19/18 03:30: White Blood Count 13.5H, Red Blood Count 3.26L, Hemoglobin 8.9L, Hematocrit 28.1L, Mean Corpuscular Volume 86, Mean Corpuscular Hemoglobin 27.2, Mean Corpuscular Hemoglobin Concent 31.6L, Red Cell Distribution Width 15.3H, Platelet Count 199, Mean Platelet Volume 7.5, Neutrophils (%) (Auto) , Lymphocytes (%) (Auto) , Monocytes (%) (Auto) , Eosinophils (%) (Auto) , Basophils (%) (Auto) , Differential Total Cells Counted 100, Neutrophils % ( Manual) 88H, Lymphocytes % (Manual) 4L, Monocytes % (Manual) 5, Eosinophils % ( Manual) 2, Basophils % (Manual) 1, Band Neutrophils 0, Platelet Estimate Adequate, Platelet Morphology Normal, Hypochromasia 1+, Anisocytosis 1+, Sodium Level 145, Potassium Level 3.9, Chloride Level 113H, Carbon Dioxide Level 26, Anion Gap 6, Blood Urea Nitrogen 18, Creatinine 1.0, Estimat Glomerular Filtration Rate , Glucose Level 188H, Calcium Level 8.1L, Phosphorus Level 2.8, Magnesium Level 1.8, Total Bilirubin 0.4, Gamma Glutamyl Transpeptidase 198H, Aspartate Amino Transf (AST/SGOT) 71H, Alanine Aminotransferase (ALT/SGPT) 216H , Alkaline Phosphatase 158H, Total Creatine Kinase 48, C-Reactive Protein, Quantitative 11.9H, Pro-B-Type Natriuretic Peptide 3995H, Total Protein 6.4, Albumin 2.0L, Globulin 4.4, Albumin/Globulin Ratio 0.5L Height (Feet): 5 Height (Inches): 8.00 Weight (Pounds): 161 Cardiovascular: normal rate Respiratory/Chest: lungs clear Abdomen: soft Trish Matias MD Nov 19, 2018 20:01
[2018-11-19] MEDS: LORazepam Inj 2mg/ml 1ml IV PRN (20:24)
[2018-11-19] MEDS: Tamsulosin 0.4mg cap ORAL SCH (20:24)
[2018-11-19] MEDS: Dyna-Hex 2% Top Sol 2oz TOPIC SCH (20:24)
[2018-11-20] VITALS: BP 142/68
[2018-11-20] MEDS: Hydromorphone 0.5mg/0.5ml inj IVP PRN (00:41)
[2018-11-20] MEDS: LORazepam Inj 2mg/ml 1ml IV PRN ×3 (02:13→20:40)
[2018-11-20] MEDS: Albuterol/Ipratropium 3ml neb HHN SCH (03:00)
[2018-11-20] MEDS: Piperacillin/Tazobactam 3.375 GM in NS 110 ML IVPB SCH ×3 (03:15→20:39)
[2018-11-20 04:00] VITALS: BP 126/72
[2018-11-20 05:53] LABS: BASOPHILS % (AUTO) 0.7 % (0.0-2.0); HEMATOCRIT 30.5 % (42.0-52.0); HEMOGLOBIN 9.7 G/DL (14.2-18.0); LYMPHOCYTES % (AUTO) 10.9 % (20.0-45.0); MEAN CORPUSCULAR VOLUME 86 FL (80-99); MONOCYTES % (AUTO) 9.5 % (1.0-10.0); NEUTROPHILS % (AUTO) 76.8 % (45.0-75.0); PLATELET COUNT 197 K/UL (150-450); RED BLOOD COUNT 3.54 M/UL (4.70-6.10); RED CELL DISTRIBUTION WIDTH 15.4 % (11.6-14.8); WHITE BLOOD COUNT 12.6 K/UL (4.8-10.8)
[2018-11-20 06:15] LABS: ANION GAP 3 mmol/L (5-15); BLOOD UREA NITROGEN 15 mg/dL (7-18); CALCIUM 8.4 MG/DL (8.5-10.1); CARBON DIOXIDE 29 MMOL/L (21-32); CHLORIDE 115 MMOL/L (98-107); CREATININE 0.9 MG/DL (0.55-1.30); POTASSIUM 4.2 MMOL/L (3.5-5.1); SODIUM 147 MMOL/L (136-145)
[2018-11-20] MEDS: NovoLOG Insulin Flexpen SUBQ SCH ×4 (06:30→20:50)
[2018-11-20 08:00] VITALS: BP 120/67
[2018-11-20] MEDS: D5 1/2NS 1,000 ML IV SCH ×2 (08:47→18:33)
[2018-11-20] MEDS: Pantoprazole Inj IVP SCH ×2 (08:48→20:40)
[2018-11-20] MEDS: Doxycycline Hyclate 100 MG in D5W 110 ML IV SCH ×2 (08:48→20:40)
[2018-11-20] MEDS: ZyPREXA Zydis 5mg tab GT SCH (08:48)
--- NOTE | 2018-11-20 11:04 | Nephrology Progress Note ---
Assessment/Plan Problem List: (1) Septic shock (2) Ventilator dependence (3) Renal failure (ARF), acute on chronic (4) Prostate enlargement (5) Anemia Assessment Septic Shock Acute renal failure CKD underlying BPH Sever Anemia Chronic trach-Vent DM HypoAlbuminemia HyperNatremia Dementia Troponin elevation Plan labs reviewed- mag IV Fluid challenge avoid Nephrotoxics transfuse crabtree monitor urine out put and renal parameters per orders Subjective ROS Limited/Unobtainable: Yes Objective Objective Last 24 Hour Vital Signs Date Time Temp Pulse Resp B/P (MAP) Pulse Ox O2 Delivery O2 Flow Rate FiO2 11/20/18 10:58 92 26 60 11/20/18 09:27 84 22 60 11/20/18 08:00 97.5 80 34 120/67 (84) 100 11/20/18 08:00 Mechanical Ventilator 11/20/18 08:00 40 11/20/18 07:50 79 11/20/18 07:00 82 23 60 11/20/18 05:15 78 22 60 11/20/18 04:00 Mechanical Ventilator 11/20/18 04:00 40 11/20/18 04:00 98.4 82 32 126/72 (90) 99 11/20/18 03:36 70 11/20/18 03:27 75 22 60 11/20/18 02:30 74 23 99 Mechanical Ventilator 60 11/20/18 01:29 82 27 60 11/20/18 00:00 98.9 86 34 142/68 (92) 94 11/20/18 00:00 Mechanical Ventilator 11/19/18 23:33 87 11/19/18 23:26 90 33 95 Mechanical Ventilator 40 98 33 40 11/19/18 21:30 98 28 40 11/19/18 20:12 46 11/19/18 20:00 Mechanical Ventilator 11/19/18 20:00 40 11/19/18 20:00 99.0 90 34 141/75 (97) 93 11/19/18 19:30 120 37 40 11/19/18 19:04 91 11/19/18 17:36 84 24 40 11/19/18 17:21 84 24 40 11/19/18 16:00 98.9 87 24 141/88 (105) 96 11/19/18 16:00 Mechanical Ventilator 11/19/18 16:00 40 11/19/18 15:14 87 11/19/18 15:09 87 23 97 Mechanical Ventilator 40 87 22 40 11/19/18 13:18 83 29 40 11/19/18 12:00 40 11/19/18 12:00 Mechanical Ventilator 11/19/18 12:00 98.2 82 24 140/76 (97) 98 11/19/18 11:44 79 11/19/18 11:36 79 23 97 Mechanical Ventilator 40 79 23 40 Intake and Output 11/19/18 11/20/18 19:00 07:00 Intake Total 2132.5 ml 2303.5 ml Balance 2132.5 ml 2303.5 ml Intake Free Water 300 ml 350 ml IV Total 1227.5 ml 1293.5 ml Tube Feeding 605 ml 660 ml # Voids 2 # Bowel Movements 2 1 Laboratory Tests 11/20/18 04:00: White Blood Count 12.6H, Red Blood Count 3.54L, Hemoglobin 9.7L, Hematocrit 30.5L, Mean Corpuscular Volume 86, Mean Corpuscular Hemoglobin 27.5, Mean Corpuscular Hemoglobin Concent 32.0, Red Cell Distribution Width 15.4H, Platelet Count 197, Mean Platelet Volume 7.3, Neutrophils (%) (Auto) 76.8H, Lymphocytes (%) (Auto) 10.9L, Monocytes (%) (Auto) 9.5, Eosinophils (%) (Auto) 2.0, Basophils (%) (Auto) 0.7, Sodium Level 147H, Potassium Level 4.2, Chloride Level 115H, Carbon Dioxide Level 29, Anion Gap 3L, Blood Urea Nitrogen 15, Creatinine 0.9, Estimat Glomerular Filtration Rate , Glucose Level 80#, Calcium Level 8.4L, Phosphorus Level 3.0, Magnesium Level 1.7L Height (Feet): 5 Height (Inches): 8.00 Weight (Pounds): 165 General Appearance: no apparent distress Neck: other - vented Respiratory/Chest: decreased breath sounds Abdomen: distended Objective no change Randolph Fernandes MD Nov 20, 2018 11:03
--- NOTE | 2018-11-20 11:10 | Infectious Diseases Prog Note ---
Assessment/Plan Assessment/Plan IMPRESSION: Sepsis, Pyuria/ UTI Pneumonia BPH, ventilator-dependent respiratory failure Leukemoid reaction,resolved Acute renal failure, improving Diabetes mellitus, anemia, hypoxemic respiratory failure, dementia. 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 Will f/u cultures Remove old PICC line Subjective ROS Limited/Unobtainable: Yes Constitutional: Denies: fever Allergies: Coded Allergies: TERAZOSIN (Verified Allergy, Unknown, 10/27/17) Objective Vital Signs Last 24 Hour Vital Signs Date Time Temp Pulse Resp B/P (MAP) Pulse Ox O2 Delivery O2 Flow Rate FiO2 11/20/18 10:58 92 26 60 11/20/18 09:27 84 22 60 11/20/18 08:00 97.5 80 34 120/67 (84) 100 11/20/18 08:00 Mechanical Ventilator 11/20/18 08:00 40 11/20/18 07:50 79 11/20/18 07:00 82 23 60 11/20/18 05:15 78 22 60 11/20/18 04:00 Mechanical Ventilator 11/20/18 04:00 40 11/20/18 04:00 98.4 82 32 126/72 (90) 99 11/20/18 03:36 70 11/20/18 03:27 75 22 60 11/20/18 02:30 74 23 99 Mechanical Ventilator 60 11/20/18 01:29 82 27 60 11/20/18 00:00 98.9 86 34 142/68 (92) 94 11/20/18 00:00 Mechanical Ventilator 11/19/18 23:33 87 11/19/18 23:26 90 33 95 Mechanical Ventilator 40 98 33 40 11/19/18 21:30 98 28 40 11/19/18 20:12 46 11/19/18 20:00 Mechanical Ventilator 11/19/18 20:00 40 11/19/18 20:00 99.0 90 34 141/75 (97) 93 11/19/18 19:30 120 37 40 11/19/18 19:04 91 11/19/18 17:36 84 24 40 11/19/18 17:21 84 24 40 11/19/18 16:00 98.9 87 24 141/88 (105) 96 11/19/18 16:00 Mechanical Ventilator 11/19/18 16:00 40 10/14/19 15:14 87 11/19/18 15:09 87 23 97 Mechanical Ventilator 40 87 22 40 11/19/18 13:18 83 29 40 11/19/18 12:00 40 11/19/18 12:00 Mechanical Ventilator 11/19/18 12:00 98.2 82 24 140/76 (97) 98 11/19/18 11:44 79 11/19/18 11:36 79 23 97 Mechanical Ventilator 40 79 23 40 Height (Feet): 5 Height (Inches): 8.00 Weight (Pounds): 165 HEENT: status post trach Respiratory/Chest: lungs clear, other - on ventilaor Cardiovascular: normal rate, other - Bilateral arm PICC line Abdomen: soft, non tender, other - GT feeding Extremities: other - edema of R arm Laboratory Tests Test 11/20/18 04:00 White Blood Count 12.6 K/UL (4.8-10.8) H Red Blood Count 3.54 M/UL (4.70-6.10) L Hemoglobin 9.7 G/DL (14.2-18.0) L Hematocrit 30.5 % (42.0-52.0) L Mean Corpuscular Volume 86 FL (80-99) Mean Corpuscular Hemoglobin 27.5 PG (27.0-31.0) Mean Corpuscular Hemoglobin Concent 32.0 G/DL (32.0-36.0) Red Cell Distribution Width 15.4 % (11.6-14.8) H Platelet Count 197 K/UL (150-450) Mean Platelet Volume 7.3 FL (6.5-10.1) Neutrophils (%) (Auto) 76.8 % (45.0-75.0) H Lymphocytes (%) (Auto) 10.9 % (20.0-45.0) L Monocytes (%) (Auto) 9.5 % (1.0-10.0) Eosinophils (%) (Auto) 2.0 % (0.0-3.0) Basophils (%) (Auto) 0.7 % (0.0-2.0) Sodium Level 147 MMOL/L (136-145) H Potassium Level 4.2 MMOL/L (3.5-5.1) Chloride Level 115 MMOL/L (98-107) H Carbon Dioxide Level 29 MMOL/L (21-32) Anion Gap 3 mmol/L (5-15) L Blood Urea Nitrogen 15 mg/dL (7-18) Creatinine 0.9 MG/DL (0.55-1.30) Estimat Glomerular Filtration Rate mL/min (>60) Glucose Level 80 MG/DL (74-106) # Calcium Level 8.4 MG/DL (8.5-10.1) L Phosphorus Level 3.0 MG/DL (2.5-4.9) Magnesium Level 1.7 MG/DL (1.8-2.4) L Current Medications Medications (Trade) Dose Ordered Sig/Ruthie Route PRN Reason Start Time Stop Time Status Last Admin Dose Admin Acetaminophen (Tylenol) 650 mg Q6H PRN NG Mild Pain/Temp > 100.5 11/18/18 17:45 12/15/18 05:44 Acetaminophen/ Hydrocodone Bitart ([place] 5/325) 1 tab Q4H PRN ORAL Moderate Pain (Pain Scale 4-6) 11/18/18 17:45 11/22/18 05:44 11/20/18 04:08 Bisacodyl (Dulcolax) 10 mg DAILYPRN PRN RECTAL Constipation 11/18/18 16:30 12/18/18 16:29 Chlorhexidine Gluconate (Rachael-Hex 2%) 1 applic DAILY@2000 TOPIC 11/18/18 20:00 12/15/18 19:59 11/19/18 20:24 Dextrose (Dextrose 50%) 25 ml Q30M PRN IV Hypoglycemia 11/18/18 16:45 12/15/18 05:44 Dextrose (Dextrose 50%) 50 ml Q30M PRN IV Hypoglycemia 11/18/18 16:45 12/15/18 05:44 Dextrose/Sodium Chloride 1,000 ml @ 100 mls/hr Q10H IV 11/18/18 16:45 12/15/18 07:59 11/20/18 08:47 Doxycycline Hyclate 100 mg/ Dextrose 110 ml @ 110 mls/hr Q12HR IV 11/18/18 21:00 11/22/18 08:59 11/20/18 08:48 Heparin Sodium/ Sodium Chloride (Heparin 1000 units/500ml Premix) 1,000 unit ONCE PRN IV PICC LINE 11/18/18 16:45 11/20/18 16:44 Hydromorphone HCl (Dilaudid) 0.5 mg Q4H PRN IVP For Pain 11/18/18 17:45 11/22/18 05:44 11/20/18 00:41 Insulin Aspart (NovoLOG) BEFORE MEALS AND HS SUBQ 11/18/18 21:00 12/15/18 06:29 11/19/18 21:57 Lidocaine HCl (Xylocaine 1% 30ml) 30 ml ONCE PRN INJ PICC LINE 11/18/18 16:45 11/20/18 16:44 Lorazepam (Ativan 2mg/ml 1ml) 0.5 mg Q4H PRN IV For Anxiety 11/18/18 17:45 11/22/18 05:44 11/20/18 06:46 Magnesium Sulfate 100 ml @ 100 mls/hr Q1H IVPB 11/20/18 11:15 11/20/18 14:14 Olanzapine (ZyPREXA Zydis) 7.5 mg DAILY GT 11/19/18 09:00 12/15/18 08:59 11/20/18 08:48 Pantoprazole (Protonix) 40 mg EVERY 12 HOURS IVP 11/18/18 21:00 12/15/18 08:59 11/20/18 08:48 Piperacillin Sod/ Tazobactam Sod 3.375 gm/Sodium Chloride 110 ml @ 27.5 mls/hr Q8H IVPB 11/18/18 20:00 11/22/18 11:59 11/20/18 03:15 Quetiapine Fumarate (SEROquel) 50 mg DAILY GT 11/19/18 09:00 12/15/18 08:59 11/20/18 08:48 Tamsulosin HCl (Flomax) 0.4 mg BEDTIME ORAL 11/18/18 21:00 12/15/18 20:59 11/19/18 20:24 Anam Cruz MD Nov 20, 2018 11:09
[2018-11-20 12:00] VITALS: BP 157/79
--- NOTE | 2018-11-20 12:15 | Cardiac Electrophysiology PN ---
Assessment/Plan Assessment/Plan 1. S/P Septic shock with white count of 50,000 and lactic acid of 6. On IV antibiotic and IV fluid . Ech Nl EF. WBC down to 12 on Abx. PICC line repositioned 2. Congestive heart failure with BNP of more than 17,000. Now BNP 3900 3. Troponin elevation, likely due to renal failure and anemia and septic shock. The levels are flat. EKG does not show any ST elevation. 4. Acute renal failure. BUN of 48, creatinine of 2.5. Resolved 5. Hypernatremia. Sodium of 150.iv fluid 6. Ventilator-dependent respiratory failure, status post tracheostomy. 7. Dysphagia, status post PEG placement. 8. Profound anemia, hemoglobin of 6.5, rule out GI bleed. S/P blood transfusion. RICARDA RN Subjective Subjective In ICU on the Vent in SR. PICC line is being repositioned. RN at bedside Objective Last 24 Hour Vital Signs Date Time Temp Pulse Resp B/P (MAP) Pulse Ox O2 Delivery O2 Flow Rate FiO2 11/20/18 10:58 92 26 60 11/20/18 09:27 84 22 60 11/20/18 08:00 97.5 80 34 120/67 (84) 100 11/20/18 08:00 Mechanical Ventilator 11/20/18 08:00 40 11/20/18 07:50 79 11/20/18 07:00 82 23 60 11/20/18 05:15 78 22 60 11/20/18 04:00 Mechanical Ventilator 11/20/18 04:00 40 11/20/18 04:00 98.4 82 32 126/72 (90) 99 11/20/18 03:36 70 11/20/18 03:27 75 22 60 11/20/18 02:30 74 23 99 Mechanical Ventilator 60 11/20/18 01:29 82 27 60 11/20/18 00:00 98.9 86 34 142/68 (92) 94 11/20/18 00:00 Mechanical Ventilator 11/19/18 23:33 87 11/19/18 23:26 90 33 95 Mechanical Ventilator 40 98 33 40 11/19/18 21:30 98 28 40 11/19/18 20:12 46 11/19/18 20:00 Mechanical Ventilator 11/19/18 20:00 40 11/19/18 20:00 99.0 90 34 141/75 (97) 93 11/19/18 19:30 120 37 40 11/19/18 19:04 91 11/19/18 17:36 84 24 40 11/19/18 17:21 84 24 40 11/19/18 16:00 98.9 87 24 141/88 (105) 96 11/19/18 16:00 Mechanical Ventilator 11/19/18 16:00 40 11/19/18 15:14 87 11/19/18 15:09 87 23 97 Mechanical Ventilator 40 87 22 40 11/19/18 13:18 83 29 40 Intake and Output 11/19/18 11/20/18 19:00 07:00 Intake Total 2132.5 ml 2303.5 ml Balance 2132.5 ml 2303.5 ml Intake Free Water 300 ml 350 ml IV Total 1227.5 ml 1293.5 ml Tube Feeding 605 ml 660 ml # Voids 2 # Bowel Movements 2 1 Laboratory Tests Test 11/20/18 04:00 White Blood Count 12.6 K/UL (4.8-10.8) H Red Blood Count 3.54 M/UL (4.70-6.10) L Hemoglobin 9.7 G/DL (14.2-18.0) L Hematocrit 30.5 % (42.0-52.0) L Mean Corpuscular Volume 86 FL (80-99) Mean Corpuscular Hemoglobin 27.5 PG (27.0-31.0) Mean Corpuscular Hemoglobin Concent 32.0 G/DL (32.0-36.0) Red Cell Distribution Width 15.4 % (11.6-14.8) H Platelet Count 197 K/UL (150-450) Mean Platelet Volume 7.3 FL (6.5-10.1) Neutrophils (%) (Auto) 76.8 % (45.0-75.0) H Lymphocytes (%) (Auto) 10.9 % (20.0-45.0) L Monocytes (%) (Auto) 9.5 % (1.0-10.0) Eosinophils (%) (Auto) 2.0 % (0.0-3.0) Basophils (%) (Auto) 0.7 % (0.0-2.0) Sodium Level 147 MMOL/L (136-145) H Potassium Level 4.2 MMOL/L (3.5-5.1) Chloride Level 115 MMOL/L (98-107) H Carbon Dioxide Level 29 MMOL/L (21-32) Anion Gap 3 mmol/L (5-15) L Blood Urea Nitrogen 15 mg/dL (7-18) Creatinine 0.9 MG/DL (0.55-1.30) Estimat Glomerular Filtration Rate mL/min (>60) Glucose Level 80 MG/DL (74-106) # Calcium Level 8.4 MG/DL (8.5-10.1) L Phosphorus Level 3.0 MG/DL (2.5-4.9) Magnesium Level 1.7 MG/DL (1.8-2.4) L Objective HEAD AND NECK: Tracheostomy intact. LUNGS: Coarse rhonchi. CARDIOVASCULAR: Irregular irregular S1 and S2 with no gallop. ABDOMEN: Status post G-tube, distended. EXTREMITIES: Reveal 1+ edema. Luke Prather MD Nov 20, 2018 12:15
--- NOTE | 2018-11-20 12:33 | Diagnostic Imaging Report ---
Indications: Needs long-term IV access Technique: Procedure performed at bedside. Procedural timeout performed. Ultrasound confirms patent compressible left brachial vein. Total sterile technique, including sterile probe cover and sterile gel, sterile gloves, hand hygiene, hat, mask,, sterile gown, large sterile drape, and preparation with 2% chlorhexidine utilized. Local anesthesia with 1% lidocaine. Under real-time ultrasound guidance, puncture brachial vein using 21-gauge needle, passage 0.018 guidewire, exchange for 4 [place] peel-away sheath. 4 [place] Bard dual-lumen power PICC cut to 40 cm. It was inserted through the peel-away sheath. Peel-away sheath and guidewire removed. Catheter fixed to the skin. Both catheter ports aspirated and flushed. Patient tolerated procedure well, without immediate complication. Followup chest x-ray obtained, documents catheter tip position at the 8 right atrium. The catheter was withdrawn, and subsequent radiograph demonstrates satisfactory position at the high right atrium. Impression: Successful bedside placement of left arm PICC under sonographic guidance, as described above.
--- NOTE | 2018-11-20 12:35 | GI Progress Note ---
Assessment/Plan Problems: (1) PEG (percutaneous endoscopic gastrostomy) status ICD Codes: Z93.1 - Gastrostomy status SNOMED: 562265486, 233612856 (2) GIB (gastrointestinal bleeding) ICD Codes: K92.2 - Gastrointestinal hemorrhage, unspecified SNOMED: 26579641 (3) Anemia ICD Codes: D64.9 - Anemia, unspecified SNOMED: 196629661 (4) Constipation ICD Codes: K59.00 - Constipation, unspecified SNOMED: 30661708 (5) Gastrostomy tube dependent ICD Codes: Z93.1 - Gastrostomy status SNOMED: 714049482, 716319103 (6) DM (7) Encephalopathy due to metabolic factor or toxin SNOMED: 537360328 Status: stable Status Narrative Discussed with Dr. Coronel. Assessment/Plan OB stool positive x2 hepatitis panel negative EGD on hold given stable H&H, high risk. ppi prn blood transfusion abx per ID GTF Hold iron supplementation given elevated ferritin levels abx fu labs The patient was seen and examined at bedside and all new and available data was reviewed in the patients chart. I agree with the above findings, impression and plan. (Patient seen earlier today. Signature stamp does not reflect patient encounter time.). - Juan Coronel MD Subjective Subjective limited Objective Last 24 Hour Vital Signs Date Time Temp Pulse Resp B/P (MAP) Pulse Ox O2 Delivery O2 Flow Rate FiO2 11/20/18 10:58 92 26 60 11/20/18 09:27 84 22 60 11/20/18 08:00 97.5 80 34 120/67 (84) 100 11/20/18 08:00 Mechanical Ventilator 11/20/18 08:00 40 11/20/18 07:50 79 11/20/18 07:00 82 23 60 11/20/18 05:15 78 22 60 11/20/18 04:00 Mechanical Ventilator 11/20/18 04:00 40 11/20/18 04:00 98.4 82 32 126/72 (90) 99 11/20/18 03:36 70 11/20/18 03:27 75 22 60 11/20/18 02:30 74 23 99 Mechanical Ventilator 60 11/20/18 01:29 82 27 60 11/20/18 00:00 98.9 86 34 142/68 (92) 94 11/20/18 00:00 Mechanical Ventilator 11/19/18 23:33 87 11/19/18 23:26 90 33 95 Mechanical Ventilator 40 98 33 40 11/19/18 21:30 98 28 40 11/19/18 20:12 46 11/19/18 20:00 Mechanical Ventilator 11/19/18 20:00 40 11/19/18 20:00 99.0 90 34 141/75 (97) 93 11/19/18 19:30 120 37 40 11/19/18 19:04 91 11/19/18 17:36 84 24 40 11/19/18 17:21 84 24 40 11/19/18 16:00 98.9 87 24 141/88 (105) 96 11/19/18 16:00 Mechanical Ventilator 11/19/18 16:00 40 11/19/18 15:14 87 11/19/18 15:09 87 23 97 Mechanical Ventilator 40 87 22 40 11/19/18 13:18 83 29 40 Intake and Output 11/19/18 11/20/18 19:00 07:00 Intake Total 2132.5 ml 2303.5 ml Balance 2132.5 ml 2303.5 ml Intake Free Water 300 ml 350 ml IV Total 1227.5 ml 1293.5 ml Tube Feeding 605 ml 660 ml # Voids 2 # Bowel Movements 2 1 Laboratory Tests Test 11/20/18 04:00 White Blood Count 12.6 K/UL (4.8-10.8) H Red Blood Count 3.54 M/UL (4.70-6.10) L Hemoglobin 9.7 G/DL (14.2-18.0) L Hematocrit 30.5 % (42.0-52.0) L Mean Corpuscular Volume 86 FL (80-99) Mean Corpuscular Hemoglobin 27.5 PG (27.0-31.0) Mean Corpuscular Hemoglobin Concent 32.0 G/DL (32.0-36.0) Red Cell Distribution Width 15.4 % (11.6-14.8) H Platelet Count 197 K/UL (150-450) Mean Platelet Volume 7.3 FL (6.5-10.1) Neutrophils (%) (Auto) 76.8 % (45.0-75.0) H Lymphocytes (%) (Auto) 10.9 % (20.0-45.0) L Monocytes (%) (Auto) 9.5 % (1.0-10.0) Eosinophils (%) (Auto) 2.0 % (0.0-3.0) Basophils (%) (Auto) 0.7 % (0.0-2.0) Sodium Level 147 MMOL/L (136-145) H Potassium Level 4.2 MMOL/L (3.5-5.1) Chloride Level 115 MMOL/L (98-107) H Carbon Dioxide Level 29 MMOL/L (21-32) Anion Gap 3 mmol/L (5-15) L Blood Urea Nitrogen 15 mg/dL (7-18) Creatinine 0.9 MG/DL (0.55-1.30) Estimat Glomerular Filtration Rate mL/min (>60) Glucose Level 80 MG/DL (74-106) # Calcium Level 8.4 MG/DL (8.5-10.1) L Phosphorus Level 3.0 MG/DL (2.5-4.9) Magnesium Level 1.7 MG/DL (1.8-2.4) L Height (Feet): 5 Height (Inches): 8.00 Weight (Pounds): 165 General Appearance: no apparent distress Cardiovascular: normal rate Respiratory/Chest: normal breath sounds, no respiratory distress Abdominal Exam: soft Kishan Hopkins PROGRAM ANALYST Nov 20, 2018 12:35
--- NOTE | 2018-11-20 14:09 | Hematology/Onc Progress Note ---
Assessment/Plan Assessment/Plan ASSESSMENT AND RECOMMENDATIONS # Leukocytosis. Likely related to underlying infection with sepsis and elevated severely on admission --> Imaging has been reviewed. Shows cxr left lung inil/v edema --> Blood cs and urine cx are reviewed --> Has been started on abx, empiric tx --> PERIPHERAL SMEAR SHOWS ATYPICAL LYMPHOCYTES --> Flow cytometry ordered with pathologist --> wbc 52k-->47k-->29k->16-->12-->14->12 --> picc repositioned # Anemia of chronic disease, due to underlying chronic medical issues, multifactorial. --> Anemia w/u has been ordered --> with hyperferritinemia --> No evidence of hemolysis noted, peripheral smear has been reviewed --> Hgb goal >7. Transfuse as needed --> hgb trend 7.5-->6.6->9.1-->9.2-->8.9 --> 2 units transfuse on 11/15 --> will need to follow as outpatient and may need chelation therapy --> GI workup once more stable # Failure to thrive (FTT) - decreased bmi and low protein --> cea 4.3 --> will obtain q3 day caloric counts --> consider mirtazapine as appetite stimulant --> GI consult on a prn basis, as needed for endosc # Sepsis. # PEG. # Malnutrition. # REsp failure s/p Vent/trach The timing of this note does not necessarily reflect the time of the patient was seen. Greatly appreciate consultation. Subjective Constitutional: Denies: no symptoms, chills, fever, malaise, weakness, other HEENT: Denies: no symptoms, eye pain, blurred vision, tearing, double vision, ear pain, ear discharge, nose pain, nose congestion, throat pain, throat swelling, mouth pain, mouth swelling, other Cardiovascular: Denies: no symptoms, chest pain, edema, irregular heart rate, lightheadedness, palpitations, syncope, other Genitourinary: Denies: no symptoms, burning, discharge, frequency, flank pain, hematuria, incontinence, pain, urgency, other Neurologic/Psychiatric: Denies: no symptoms, anxiety, depressed, emotional problems, headache, numbness, paresthesia, pre-existing deficit, seizure, tingling, tremors, weakness, other Endocrine: Denies: no symptoms, excessive sweating, flushing, intolerance to cold, intolerance to heat, increased hunger, increased thirst, increased urine, unexplained weight gain, unexplained weight loss, other Allergies: Coded Allergies: TERAZOSIN (Verified Allergy, Unknown, 10/27/17) Subjective 11/16: in the icu, is off pressors, doing better, no bleeding 11/18: no bleeding, remains on doxy and zosyn, no bleeding reported 11/19: out of the icu, on vent/trach, no major changes, dw rn 11/20: no bleeding noted, no night sweats, meds reviewed, no f/c Objective Objective Current Medications Medications (Trade) Dose Ordered Sig/Ruthie Route PRN Reason Start Time Stop Time Status Last Admin Dose Admin Acetaminophen (Tylenol) 650 mg Q6H PRN NG Mild Pain/Temp > 100.5 11/18/18 17:45 12/15/18 05:44 Acetaminophen/ Hydrocodone Bitart ([place] 5/325) 1 tab Q4H PRN ORAL Moderate Pain (Pain Scale 4-6) 11/18/18 17:45 11/22/18 05:44 11/20/18 04:08 Bisacodyl (Dulcolax) 10 mg DAILYPRN PRN RECTAL Constipation 11/18/18 16:30 12/18/18 16:29 Chlorhexidine Gluconate (Rachael-Hex 2%) 1 applic DAILY@2000 TOPIC 11/18/18 20:00 12/15/18 19:59 11/19/18 20:24 Dextrose (Dextrose 50%) 25 ml Q30M PRN IV Hypoglycemia 11/18/18 16:45 12/15/18 05:44 Dextrose (Dextrose 50%) 50 ml Q30M PRN IV Hypoglycemia 11/18/18 16:45 12/15/18 05:44 Dextrose/Sodium Chloride 1,000 ml @ 100 mls/hr Q10H IV 11/18/18 16:45 12/15/18 07:59 11/20/18 08:47 Doxycycline Hyclate 100 mg/ Dextrose 110 ml @ 110 mls/hr Q12HR IV 11/18/18 21:00 11/22/18 08:59 11/20/18 08:48 Heparin Sodium/ Sodium Chloride (Heparin 1000 units/500ml Premix) 1,000 unit ONCE PRN IV PICC LINE 11/18/18 16:45 11/20/18 16:44 Hydromorphone HCl (Dilaudid) 0.5 mg Q4H PRN IVP For Pain 11/18/18 17:45 11/22/18 05:44 11/20/18 00:41 Insulin Aspart (NovoLOG) BEFORE MEALS AND HS SUBQ 11/18/18 21:00 12/15/18 06:29 11/19/18 21:57 Lidocaine HCl (Xylocaine 1% 30ml) 30 ml ONCE PRN INJ PICC LINE 11/18/18 16:45 11/20/18 16:44 Lorazepam (Ativan 2mg/ml 1ml) 0.5 mg Q4H PRN IV For Anxiety 11/18/18 17:45 11/22/18 05:44 11/20/18 06:46 Magnesium Sulfate 100 ml @ 100 mls/hr Q1H IVPB 11/20/18 11:15 11/20/18 14:14 11/20/18 13:14 Olanzapine (ZyPREXA Zydis) 7.5 mg DAILY GT 11/19/18 09:00 12/15/18 08:59 11/20/18 08:48 Pantoprazole (Protonix) 40 mg EVERY 12 HOURS IVP 11/18/18 21:00 12/15/18 08:59 11/20/18 08:48 Piperacillin Sod/ Tazobactam Sod 3.375 gm/Sodium Chloride 110 ml @ 27.5 mls/hr Q8H IVPB 11/18/18 20:00 11/22/18 11:59 11/20/18 03:15 Quetiapine Fumarate (SEROquel) 50 mg DAILY GT 11/19/18 09:00 12/15/18 08:59 11/20/18 08:48 Tamsulosin HCl (Flomax) 0.4 mg BEDTIME ORAL 11/18/18 21:00 12/15/18 20:59 11/19/18 20:24 Last 24 Hour Vital Signs Date Time Temp Pulse Resp B/P (MAP) Pulse Ox O2 Delivery O2 Flow Rate FiO2 11/20/18 12:57 94 28 60 11/20/18 12:00 Mechanical Ventilator 11/20/18 12:00 97.5 93 30 157/79 (105) 100 11/20/18 12:00 40 11/20/18 11:40 77 11/20/18 10:58 92 26 60 11/20/18 09:27 84 22 60 11/20/18 08:00 97.5 80 34 120/67 (84) 100 11/20/18 08:00 Mechanical Ventilator 11/20/18 08:00 40 11/20/18 07:50 79 11/20/18 07:00 82 23 60 11/20/18 05:15 78 22 60 11/20/18 04:00 Mechanical Ventilator 11/20/18 04:00 40 11/20/18 04:00 98.4 82 32 126/72 (90) 99 11/20/18 03:36 70 11/20/18 03:27 75 22 60 11/20/18 02:30 74 23 99 Mechanical Ventilator 60 11/20/18 01:29 82 27 60 11/20/18 00:00 98.9 86 34 142/68 (92) 94 11/20/18 00:00 Mechanical Ventilator 11/19/18 23:33 87 11/19/18 23:26 90 33 95 Mechanical Ventilator 40 98 33 40 11/19/18 21:30 98 28 40 11/19/18 20:12 46 11/19/18 20:00 Mechanical Ventilator 11/19/18 20:00 40 11/19/18 20:00 99.0 90 34 141/75 (97) 93 11/19/18 19:30 120 37 40 11/19/18 19:04 91 11/19/18 17:36 84 24 40 11/19/18 17:21 84 24 40 11/19/18 16:00 98.9 87 24 141/88 (105) 96 11/19/18 16:00 Mechanical Ventilator 11/19/18 16:00 40 11/19/18 15:14 87 11/19/18 15:09 87 23 97 Mechanical Ventilator 40 87 22 40 11/19/18 13:18 83 29 40 11/19/18 12:00 40 11/19/18 12:00 Mechanical Ventilator 11/19/18 12:00 98.2 82 24 140/76 (97) 98 11/19/18 11:44 79 11/19/18 11:36 79 23 97 Mechanical Ventilator 40 79 23 40 11/19/18 09:19 83 22 40 11/19/18 08:00 87 11/19/18 08:00 Mechanical Ventilator 11/19/18 08:00 40 11/19/18 08:00 98.0 87 24 134/67 (89) 99 11/19/18 07:30 93 37 97 Mechanical Ventilator 40 92 34 40 11/19/18 05:03 91 37 40 11/19/18 04:00 98.4 91 28 137/62 (87) 99 11/19/18 04:00 40 11/19/18 04:00 Mechanical Ventilator 11/19/18 03:43 69 11/19/18 03:19 94 41 100 Mechanical Ventilator 40 94 41 40 11/19/18 01:25 97 38 40 11/19/18 00:00 98.8 95 30 140/59 (86) 98 11/19/18 00:00 90 11/19/18 00:00 Mechanical Ventilator 11/18/18 22:54 96 42 99 Mechanical Ventilator 40 96 41 40 11/18/18 22:00 99.5 11/18/18 21:00 97 40 40 11/18/18 20:00 Mechanical Ventilator 11/18/18 20:00 100.9 93 26 124/70 (88) 100 11/18/18 20:00 98 11/18/18 20:00 40 11/18/18 19:39 94 35 97 Mechanical Ventilator 40 94 35 40 11/18/18 16:32 99 37 40 11/18/18 16:00 40 11/18/18 16:00 98.7 85 29 125/47 (73) 100 82 11/18/18 16:00 99 11/18/18 16:00 Mechanical Ventilator 11/18/18 16:00 98.7 38 134/95 (108) 97 11/18/18 15:22 84 22 100 Mechanical Ventilator 40 82 22 40 11/18/18 15:00 81 30 131/57 (81) 100 Intake and Output 11/19/18 11/20/18 19:00 07:00 Intake Total 2132.5 ml 2303.5 ml Balance 2132.5 ml 2303.5 ml Intake Free Water 300 ml 350 ml IV Total 1227.5 ml 1293.5 ml Tube Feeding 605 ml 660 ml # Voids 2 # Bowel Movements 2 1 Labs Test 11/18/18 05:25 11/19/18 03:30 11/20/18 04:00 White Blood Count 11.9 K/UL (4.8-10.8) 13.5 K/UL (4.8-10.8) 12.6 K/UL (4.8-10.8) Red Blood Count 3.34 M/UL (4.70-6.10) 3.26 M/UL (4.70-6.10) 3.54 M/UL (4.70-6.10) Hemoglobin 9.2 G/DL (14.2-18.0) 8.9 G/DL (14.2-18.0) 9.7 G/DL (14.2-18.0) Hematocrit 28.7 % (42.0-52.0) 28.1 % (42.0-52.0) 30.5 % (42.0-52.0) Mean Corpuscular Volume 86 FL (80-99) 86 FL (80-99) 86 FL (80-99) Mean Corpuscular Hemoglobin 27.5 PG (27.0-31.0) 27.2 PG (27.0-31.0) 27.5 PG (27.0-31.0) Mean Corpuscular Hemoglobin Concent 32.0 G/DL (32.0-36.0) 31.6 G/DL (32.0-36.0) 32.0 G/DL (32.0-36.0) Red Cell Distribution Width 15.1 % (11.6-14.8) 15.3 % (11.6-14.8) 15.4 % (11.6-14.8) Platelet Count 206 K/UL (150-450) 199 K/UL (150-450) 197 K/UL (150-450) Mean Platelet Volume 7.3 FL (6.5-10.1) 7.5 FL (6.5-10.1) 7.3 FL (6.5-10.1) Neutrophils (%) (Auto) 78.9 % (45.0-75.0) % (45.0-75.0) 76.8 % (45.0-75.0) Lymphocytes (%) (Auto) 10.4 % (20.0-45.0) % (20.0-45.0) 10.9 % (20.0-45.0) Monocytes (%) (Auto) 7.5 % (1.0-10.0) % (1.0-10.0) 9.5 % (1.0-10.0) Eosinophils (%) (Auto) 2.4 % (0.0-3.0) % (0.0-3.0) 2.0 % (0.0-3.0) Basophils (%) (Auto) 0.8 % (0.0-2.0) % (0.0-2.0) 0.7 % (0.0-2.0) Sodium Level 145 MMOL/L (136-145) 145 MMOL/L (136-145) 147 MMOL/L (136-145) Potassium Level 3.6 MMOL/L (3.5-5.1) 3.9 MMOL/L (3.5-5.1) 4.2 MMOL/L (3.5-5.1) Chloride Level 114 MMOL/L (98-107) 113 MMOL/L (98-107) 115 MMOL/L (98-107) Carbon Dioxide Level 26 MMOL/L (21-32) 26 MMOL/L (21-32) 29 MMOL/L (21-32) Anion Gap 5 mmol/L (5-15) 6 mmol/L (5-15) 3 mmol/L (5-15) Blood Urea Nitrogen 20 mg/dL (7-18) 18 mg/dL (7-18) 15 mg/dL (7-18) Creatinine 1.0 MG/DL (0.55-1.30) 1.0 MG/DL (0.55-1.30) 0.9 MG/DL (0.55-1.30) Estimat Glomerular Filtration Rate mL/min (>60) mL/min (>60) mL/min (>60) Glucose Level 134 MG/DL (74-106) 188 MG/DL (74-106) 80 MG/DL (74-106) Calcium Level 8.1 MG/DL (8.5-10.1) 8.1 MG/DL (8.5-10.1) 8.4 MG/DL (8.5-10.1) Differential Total Cells Counted 100 Neutrophils % (Manual) 88 % (45-75) Lymphocytes % (Manual) 4 % (20-45) Monocytes % (Manual) 5 % (1-10) Eosinophils % (Manual) 2 % (0-3) Basophils % (Manual) 1 % (0-2) Band Neutrophils 0 % (0-8) Platelet Estimate Adequate Platelet Morphology Normal Hypochromasia 1+ Anisocytosis 1+ Phosphorus Level 2.8 MG/DL (2.5-4.9) 3.0 MG/DL (2.5-4.9) Magnesium Level 1.8 MG/DL (1.8-2.4) 1.7 MG/DL (1.8-2.4) Total Bilirubin 0.4 MG/DL (0.2-1.0) Gamma Glutamyl Transpeptidase 198 U/L (5-85) Aspartate Amino Transf (AST/SGOT) 71 U/L (15-37) Alanine Aminotransferase (ALT/SGPT) 216 U/L (12-78) Alkaline Phosphatase 158 U/L (46-116) Total Creatine Kinase 48 U/L (26-308) C-Reactive Protein, Quantitative 11.9 mg/dL (0.00-0.90) Pro-B-Type Natriuretic Peptide 3995 pg/mL (0-125) Total Protein 6.4 G/DL (6.4-8.2) Albumin 2.0 G/DL (3.4-5.0) Globulin 4.4 g/dL Albumin/Globulin Ratio 0.5 (1.0-2.7) Height (Feet): 5 Height (Inches): 8.00 Weight (Pounds): 165 Objective Vitals: reviewed Gen: no apparent distress Head: normocephalic EENT: normal ENT inspection Neck: supple Respiratory: other - intubated Cardiovascular: normal rate Gastrointestinal: gt - c/d/i Rectal: deferred Genitourinary: no CVA tenderness Skin: normal color +++ Beny Rao MD Nov 20, 2018 14:09
--- NOTE | 2018-11-20 14:32 | Pulmonolgy Critical Care Note ---
Critical Care - Asmt/Plan Assessment/Plan: Pulmonary Critical Care Progress Note HPI Patient is an 88-year-old male admitted from [facility] with fever, Pneumonia. Patient had prior history of Dementia, BPH, Diabetes, Hypertension as well as CHF. Patient is chronically ventilator dependent. History is limited by patient's mental status - non verbal on ventilator Allergies: TERAZOSIN Past Medical History: Dementia, Organic Brain Syndrome, BPH, Diabetes, Hypertension, CHF, G tube All Other Systems: limited - Review of systems Stable overnight Physical Exam Vital Signs Noted General Appearance: Chronically Ill Eyes: PERRL Neck: dry mm, trach site cdi Respiratory: CTAB Heart: HS1, HS2, RRR Gastrointestinal: no pulsatile mass, Gtube CDI Musculoskeletal: decreased range of motion, weak, wasted, congtracted Neurologic: Reduced LOC, contracted, orthotics in place Impression: Pneumonia Ventilator dependant respiratory failure Severe sepsis - improved Mild Pulmonary congestion on CXR NSTEMI Anemia - H+H stable Dysphagia s/p G tube Chronic wounds Dementia Organic Brain Syndrome Diabetes Chronic renal disease Prostate enlargement Penile wound CHF H/o Hypertension Low Albumin c/w Protein Calorie Malnutrition, chronic illness Plan Antibiotics per ID Diurese PRN HHN Q4 Continue current AC ventilator settings Adjust FIO2 for sats 90-96% Monitor cultures LE dupplex negative Monitor labs PPX 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 Tracheostomy tube terminates in the region of the upper thoracic trachea. Probable G-tube projected over the upper abdomen. 2. Diffuse hazy and interstitial opacities are concerning for pulmonary edema and pulmonary vasculature congestion. Bilateral pleural effusions with associated atelectasis versus pneumonia. Critical Care - Objective Last 24 Hour Vital Signs Date Time Temp Pulse Resp B/P (MAP) Pulse Ox O2 Delivery O2 Flow Rate FiO2 11/20/18 12:57 94 28 60 11/20/18 12:00 Mechanical Ventilator 11/20/18 12:00 97.5 93 30 157/79 (105) 100 11/20/18 12:00 40 11/20/18 11:40 77 11/20/18 10:58 92 26 60 11/20/18 09:27 84 22 60 11/20/18 08:00 97.5 80 34 120/67 (84) 100 11/20/18 08:00 Mechanical Ventilator 11/20/18 08:00 40 11/20/18 07:50 79 11/20/18 07:00 82 23 60 11/20/18 05:15 78 22 60 11/20/18 04:00 Mechanical Ventilator 11/20/18 04:00 40 11/20/18 04:00 98.4 82 32 126/72 (90) 99 11/20/18 03:36 70 11/20/18 03:27 75 22 60 11/20/18 02:30 74 23 99 Mechanical Ventilator 60 11/20/18 01:29 82 27 60 11/20/18 00:00 98.9 86 34 142/68 (92) 94 11/20/18 00:00 Mechanical Ventilator 11/19/18 23:33 87 11/19/18 23:26 90 33 95 Mechanical Ventilator 40 98 33 40 11/19/18 21:30 98 28 40 11/19/18 20:12 46 11/19/18 20:00 Mechanical Ventilator 11/19/18 20:00 40 11/19/18 20:00 99.0 90 34 141/75 (97) 93 11/19/18 19:30 120 37 40 11/19/18 19:04 91 11/19/18 17:36 84 24 40 11/19/18 17:21 84 24 40 11/19/18 16:00 98.9 87 24 141/88 (105) 96 11/19/18 16:00 Mechanical Ventilator 11/19/18 16:00 40 11/19/18 15:14 87 11/19/18 15:09 87 23 97 Mechanical Ventilator 40 87 22 40 Accucheck: 86 Critical Care - Subjective ROS Limited/Unobtainable: No Condition: improving FI02: 60 Vent Support Breath Rate: 22 Vent Support Mode: AC Vent Tidal Volume: 400 Sputum Amount: Small PEEP: 5.0 PIP: 36 Tube Feeding Amount: 55 I&O: Intake and Output 11/19/18 11/20/18 19:00 07:00 Intake Total 2132.5 ml 2303.5 ml Balance 2132.5 ml 2303.5 ml Intake Free Water 300 ml 350 ml IV Total 1227.5 ml 1293.5 ml Tube Feeding 605 ml 660 ml # Voids 2 # Bowel Movements 2 1 Booker Baumann MD Nov 20, 2018 14:32
--- NOTE | 2018-11-20 15:17 | Surgery Progress Note ---
Surgery Progress Note Subjective Additional Comments leukocytosis improved h/h stable labs noted exam unchanged Objective Last 24 Hour Vital Signs Date Time Temp Pulse Resp B/P (MAP) Pulse Ox O2 Delivery O2 Flow Rate FiO2 11/20/18 12:57 94 28 60 11/20/18 12:00 Mechanical Ventilator 11/20/18 12:00 97.5 93 30 157/79 (105) 100 11/20/18 12:00 40 11/20/18 11:40 77 11/20/18 10:58 92 26 60 11/20/18 09:27 84 22 60 11/20/18 08:00 97.5 80 34 120/67 (84) 100 11/20/18 08:00 Mechanical Ventilator 11/20/18 08:00 40 11/20/18 07:50 79 11/20/18 07:00 82 23 60 11/20/18 05:15 78 22 60 11/20/18 04:00 Mechanical Ventilator 11/20/18 04:00 40 11/20/18 04:00 98.4 82 32 126/72 (90) 99 11/20/18 03:36 70 11/20/18 03:27 75 22 60 11/20/18 02:30 74 23 99 Mechanical Ventilator 60 11/20/18 01:29 82 27 60 11/20/18 00:00 98.9 86 34 142/68 (92) 94 11/20/18 00:00 Mechanical Ventilator 11/19/18 23:33 87 11/19/18 23:26 90 33 95 Mechanical Ventilator 40 98 33 40 11/19/18 21:30 98 28 40 11/19/18 20:12 46 11/19/18 20:00 Mechanical Ventilator 11/19/18 20:00 40 11/19/18 20:00 99.0 90 34 141/75 (97) 93 11/19/18 19:30 120 37 40 11/19/18 19:04 91 11/19/18 17:36 84 24 40 11/19/18 17:21 84 24 40 11/19/18 16:00 98.9 87 24 141/88 (105) 96 11/19/18 16:00 Mechanical Ventilator 11/19/18 16:00 40 I&O Intake and Output 11/19/18 11/20/18 19:00 07:00 Intake Total 2132.5 ml 2303.5 ml Balance 2132.5 ml 2303.5 ml Intake Free Water 300 ml 350 ml IV Total 1227.5 ml 1293.5 ml Tube Feeding 605 ml 660 ml # Voids 2 # Bowel Movements 2 1 Dressing: saturated Wound: other Drains: other Cardiovascular: RSR Respiratory: decreased breath sounds Abdomen: soft, present bowel sounds, non-distended Extremities: no tenderness, no cyanosis Laboratory Tests Test 11/20/18 04:00 White Blood Count 12.6 K/UL (4.8-10.8) H Red Blood Count 3.54 M/UL (4.70-6.10) L Hemoglobin 9.7 G/DL (14.2-18.0) L Hematocrit 30.5 % (42.0-52.0) L Mean Corpuscular Volume 86 FL (80-99) Mean Corpuscular Hemoglobin 27.5 PG (27.0-31.0) Mean Corpuscular Hemoglobin Concent 32.0 G/DL (32.0-36.0) Red Cell Distribution Width 15.4 % (11.6-14.8) H Platelet Count 197 K/UL (150-450) Mean Platelet Volume 7.3 FL (6.5-10.1) Neutrophils (%) (Auto) 76.8 % (45.0-75.0) H Lymphocytes (%) (Auto) 10.9 % (20.0-45.0) L Monocytes (%) (Auto) 9.5 % (1.0-10.0) Eosinophils (%) (Auto) 2.0 % (0.0-3.0) Basophils (%) (Auto) 0.7 % (0.0-2.0) Sodium Level 147 MMOL/L (136-145) H Potassium Level 4.2 MMOL/L (3.5-5.1) Chloride Level 115 MMOL/L (98-107) H Carbon Dioxide Level 29 MMOL/L (21-32) Anion Gap 3 mmol/L (5-15) L Blood Urea Nitrogen 15 mg/dL (7-18) Creatinine 0.9 MG/DL (0.55-1.30) Estimat Glomerular Filtration Rate mL/min (>60) Glucose Level 80 MG/DL (74-106) # Calcium Level 8.4 MG/DL (8.5-10.1) L Phosphorus Level 3.0 MG/DL (2.5-4.9) Magnesium Level 1.7 MG/DL (1.8-2.4) L Plan Problems: (1) Severe sepsis Assessment & Plan: leukocytosis, anemia, lactic acidosis, fevers IV Abx imaging noted and reviewed US with no stones or dilated ducts elevated lft's likely due to liver disease exam as below cont abx trend labs thank you will follow with recs (2) Malnutrition Assessment & Plan: DAILY ESTIMATED NEEDS: Needs based on Critical care, sepsis 71.8 kg 22-30 kcals/kg 5242-5093 total kcals 1.2-2 g protein/kg 86- 144 g total protein 25-30 mL/kg 1795- 2154 total fluid mLs NUTRITION DIAGNOSIS: * Swallowing difficulty R/T respiratory status and dysphagia as evidenced by pt is vent dep, on TF. * Altered nutrition related lab values r/t sepsis, clinical status, h/o Diabetes as evidenced by critically elev WBC (47.2), low Hgb (6.6), elev BNP, low BP (96/41), BG 191, POC 179. CURRENT TF: Jevity 1.2 @ 70mL/hr x 20hr - NOW NPO ENTERAL NUTRITION RECOMMENDATIONS: Vital 1.2 @55mL/hr x24 hrs to provide 1320mL, 1584kcal, 99g pro, 1071mL free H2O * As medically appropriate to feed, rec TF change to VITAL 1.2 for critical care. * Start Vital 1,2, @25mL, advance as tolerated 10ml/hr q4-6 hrs to goal * HOB over 30 degrees/ water flush per MD --- Low Hgb (6.6), NPO per GI-> rec trophic feeds when appropriate if pt remains hypotensive. ADDITIONAL RECOMMENDATIONS: * Per SNF: HT 68 inches WT 158 lbs + Daily calibrated bed scale wts * Change TF to Vital 1.2, as medically able to feed * Monitor lytes (replete as needed) * F/up w/ WC eval . (3) Sacral decubitus ulcer Assessment & Plan: Pt presented on admission with contractures and multiple pressure injuries. Partially opened DTPI L buttocks. Base of wound moist - viable with surrounding dark and fluctuant borders.(L)1.2cm x (W)1cm. Small amt of sanguineous exudate noted. No odor noted. Hyperpigmentation noted to sacrum. Historical scar from previous wound noted to L trochanter. Penile head retracted within foreskin and small wound noted within folds of foreskin. Wound is moist and viable. No odor or exudate noted. No erythema noted periwound. Resolving pressure injury plantar R heel. Base of wound 50% epithelialized, 50% moist and viable.(L)5.5cm x (W)6.5cm. Resolving pressure injury lateral L heel. Base of wound is moist and viable with surrounding hyperpigmentation.(L)0.6cm x (W)0.5cm. Scattered loose, dry brown skin noted to medial and posterior L heel. Tx.Plan: Apply Moisture Barrier Paste to L buttocks and sacrum. Cover with Optifoam drsg. Change every 3 days and prn. Cleanse head of penis with soap and water. Apply Bacitracin oint Twice Daily. Apply Betadine to R and L heel wounds. Cover each heel with Optifoam drsg. Daily and prn. APM/ABDELRAHMAN Mattress overlay. Reposition at least every 2hours and prn. Off-load heels with pillow. Don Carvalho Nov 20, 2018 15:17
[2018-11-20 16:00] VITALS: BP 145/73
--- NOTE | 2018-11-20 17:35 | General Progress Note ---
Assessment/Plan Problem List: (1) Hypernatremia ICD Codes: E87.0 - Hyperosmolality and hypernatremia SNOMED: 78719862 (2) Rhabdomyolysis ICD Codes: M62.82 - Rhabdomyolysis SNOMED: 060855830 (3) Sacral decubitus ulcer ICD Codes: L89.159 - Pressure ulcer of sacral region, unspecified stage SNOMED: 857349682 (4) Severe sepsis ICD Codes: A41.9 - Sepsis, unspecified organism; R65.20 - Severe sepsis without septic shock SNOMED: 84466809 (5) Septic shock ICD Codes: A41.9 - Sepsis, unspecified organism; R65.21 - Severe sepsis with septic shock SNOMED: 77787869 (6) DM (7) Anemia ICD Codes: D64.9 - Anemia, unspecified SNOMED: 979210359 (8) Prostate enlargement ICD Codes: N40.0 - Benign prostatic hyperplasia without lower urinary tract symptoms SNOMED: 442141354 (9) Chronic renal disease ICD Codes: N18.9 - Chronic kidney disease, unspecified SNOMED: 161208391 (10) Ventilator dependence ICD Codes: Z99.11 - Dependence on respirator [ventilator] status SNOMED: 331787352 (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 - Gastrostomy status SNOMED: 577793852, 508403607 (12) Malnutrition ICD Codes: E46 - Unspecified protein-calorie malnutrition SNOMED: 62505956 Status: stable, unchanged Assessment/Plan: sepsis and pna vent dependence afebrile no wheezing s/p anasarca cri chf per renal hypernatremia improving bph uti reviewed chart and labs Subjective ROS Limited/Unobtainable: Yes Allergies: Coded Allergies: TERAZOSIN (Verified Allergy, Unknown, 10/27/17) Objective Last 24 Hour Vital Signs Date Time Temp Pulse Resp B/P (MAP) Pulse Ox O2 Delivery O2 Flow Rate FiO2 11/20/18 17:20 88 33 60 11/20/18 16:00 97.3 89 33 145/73 (97) 95 11/20/18 16:00 Mechanical Ventilator 11/20/18 16:00 40 11/20/18 15:29 80 26 60 11/20/18 12:57 94 28 60 11/20/18 12:00 Mechanical Ventilator 11/20/18 12:00 97.5 93 30 157/79 (105) 100 11/20/18 12:00 40 11/20/18 11:40 77 11/20/18 10:58 92 26 60 11/20/18 09:27 84 22 60 11/20/18 08:00 97.5 80 34 120/67 (84) 100 11/20/18 08:00 Mechanical Ventilator 11/20/18 08:00 40 11/20/18 07:50 79 11/20/18 07:00 82 23 60 11/20/18 05:15 78 22 60 11/20/18 04:00 Mechanical Ventilator 11/20/18 04:00 40 11/20/18 04:00 98.4 82 32 126/72 (90) 99 11/20/18 03:36 70 11/20/18 03:27 75 22 60 11/20/18 02:30 74 23 99 Mechanical Ventilator 60 11/20/18 01:29 82 27 60 11/20/18 00:00 98.9 86 34 142/68 (92) 94 11/20/18 00:00 Mechanical Ventilator 11/19/18 23:33 87 11/19/18 23:26 90 33 95 Mechanical Ventilator 40 98 33 40 11/19/18 21:30 98 28 40 11/19/18 20:12 46 11/19/18 20:00 Mechanical Ventilator 11/19/18 20:00 40 11/19/18 20:00 99.0 90 34 141/75 (97) 93 11/19/18 19:30 120 37 40 11/19/18 19:04 91 11/19/18 17:36 84 24 40 Intake and Output 11/19/18 11/20/18 19:00 07:00 Intake Total 2132.5 ml 2403.5 ml Balance 2132.5 ml 2403.5 ml Intake Free Water 300 ml 350 ml IV Total 1227.5 ml 1393.5 ml Tube Feeding 605 ml 660 ml # Voids 2 # Bowel Movements 2 1 Laboratory Tests 11/20/18 04:00: White Blood Count 12.6H, Red Blood Count 3.54L, Hemoglobin 9.7L, Hematocrit 30.5L, Mean Corpuscular Volume 86, Mean Corpuscular Hemoglobin 27.5, Mean Corpuscular Hemoglobin Concent 32.0, Red Cell Distribution Width 15.4H, Platelet Count 197, Mean Platelet Volume 7.3, Neutrophils (%) (Auto) 76.8H, Lymphocytes (%) (Auto) 10.9L, Monocytes (%) (Auto) 9.5, Eosinophils (%) (Auto) 2.0, Basophils (%) (Auto) 0.7, Sodium Level 147H, Potassium Level 4.2, Chloride Level 115H, Carbon Dioxide Level 29, Anion Gap 3L, Blood Urea Nitrogen 15, Creatinine 0.9, Estimat Glomerular Filtration Rate , Glucose Level 80#, Calcium Level 8.4L, Phosphorus Level 3.0, Magnesium Level 1.7L Height (Feet): 5 Height (Inches): 8.00 Weight (Pounds): 165 Trish Matias MD Nov 20, 2018 17:35
[2018-11-20 20:00] VITALS: BP 164/84
[2018-11-20] MEDS: Dyna-Hex 2% Top Sol 2oz TOPIC SCH (20:39)
[2018-11-20] MEDS: Tamsulosin 0.4mg cap ORAL SCH (20:40)
[2018-11-21] VITALS: BP 144/88
[2018-11-21 04:00] VITALS: BP 144/73
[2018-11-21] MEDS: LORazepam Inj 2mg/ml 1ml IV PRN ×2 (04:17→23:19)
[2018-11-21] MEDS: D5 1/2NS 1,000 ML IV SCH ×2 (04:55→14:47)
[2018-11-21] MEDS: Piperacillin/Tazobactam 3.375 GM in NS 110 ML IVPB SCH ×3 (04:55→20:06)
[2018-11-21 04:59] LABS: BASOPHILS % (AUTO) 0.7 % (0.0-2.0); EOSINOPHILS % (AUTO) 2.5 % (0.0-3.0); HEMATOCRIT 28.8 % (42.0-52.0); LYMPHOCYTES % (AUTO) 9.6 % (20.0-45.0); MEAN CORPUSCULAR VOLUME 87 FL (80-99); MONOCYTES % (AUTO) 8.1 % (1.0-10.0); NEUTROPHILS % (AUTO) 79.1 % (45.0-75.0); PLATELET COUNT 218 K/UL (150-450); RED BLOOD COUNT 3.33 M/UL (4.70-6.10); RED CELL DISTRIBUTION WIDTH 15.6 % (11.6-14.8); WHITE BLOOD COUNT 12.7 K/UL (4.8-10.8)
[2018-11-21 05:34] LABS: ANION GAP 4 mmol/L (5-15); BLOOD UREA NITROGEN 15 mg/dL (7-18); CALCIUM 8.6 MG/DL (8.5-10.1); CARBON DIOXIDE 29 MMOL/L (21-32); CHLORIDE 114 MMOL/L (98-107); CREATININE 0.8 MG/DL (0.55-1.30); POTASSIUM 4.4 MMOL/L (3.5-5.1); SODIUM 147 MMOL/L (136-145)
[2018-11-21] MEDS: NovoLOG Insulin Flexpen SUBQ SCH ×4 (06:20→21:01)
[2018-11-21 08:00] VITALS: BP 146/73
--- NOTE | 2018-11-21 09:13 | Hematology/Onc Progress Note ---
Assessment/Plan Assessment/Plan ASSESSMENT AND RECOMMENDATIONS # Leukocytosis. Likely related to underlying infection with sepsis and elevated severely on admission --> Imaging has been reviewed. Shows cxr left lung inil/v edema --> Blood cs and urine cx are reviewed --> Has been started on abx, empiric tx --> PERIPHERAL SMEAR SHOWS ATYPICAL LYMPHOCYTES --> Flow cytometry ordered with pathologist --> wbc 52k-->47k-->29k->16-->12-->14->12-->12 --> picc repositioned # Anemia of chronic disease, due to underlying chronic medical issues, multifactorial. --> Anemia w/u has been ordered --> with hyperferritinemia --> No evidence of hemolysis noted, peripheral smear has been reviewed --> Hgb goal >7. Transfuse as needed --> hgb trend 7.5-->6.6->9.1-->9.2-->8.9 --> 2 units transfuse on 11/15 --> will need to follow as outpatient and may need chelation therapy --> GI workup once more stable # Failure to thrive (FTT) - decreased bmi and low protein --> cea 4.3 --> will obtain q3 day caloric counts --> consider mirtazapine as appetite stimulant --> GI consult on a prn basis, as needed for endosc # Sepsis. improved # PEG. # Malnutrition. # REsp failure s/p Vent/trach The timing of this note does not necessarily reflect the time of the patient was seen. Greatly appreciate consultation. Subjective Allergies: Coded Allergies: TERAZOSIN (Verified Allergy, Unknown, 10/27/17) Subjective 11/16: in the icu, is off pressors, doing better, no bleeding 11/18: no bleeding, remains on doxy and zosyn, no bleeding reported 11/19: out of the icu, on vent/trach, no major changes, dw rn 11/20: no bleeding noted, no night sweats, meds reviewed, no f/c 11/21: on vent, obtunded, with gt ongong, with picc, no bleeding Objective Objective Current Medications Medications (Trade) Dose Ordered Sig/Ruthie Route PRN Reason Start Time Stop Time Status Last Admin Dose Admin Acetaminophen (Tylenol) 650 mg Q6H PRN NG Mild Pain/Temp > 100.5 11/18/18 17:45 12/15/18 05:44 Acetaminophen/ Hydrocodone Bitart ([place] 5/325) 1 tab Q4H PRN ORAL Moderate Pain (Pain Scale 4-6) 11/18/18 17:45 11/22/18 05:44 11/20/18 04:08 Bisacodyl (Dulcolax) 10 mg DAILYPRN PRN RECTAL Constipation 11/18/18 16:30 12/18/18 16:29 Chlorhexidine Gluconate (Rachael-Hex 2%) 1 applic DAILY@2000 TOPIC 11/18/18 20:00 12/15/18 19:59 11/20/18 20:39 Dextrose (Dextrose 50%) 25 ml Q30M PRN IV Hypoglycemia 11/18/18 16:45 12/15/18 05:44 Dextrose (Dextrose 50%) 50 ml Q30M PRN IV Hypoglycemia 11/18/18 16:45 12/15/18 05:44 Dextrose/Sodium Chloride 1,000 ml @ 100 mls/hr Q10H IV 11/18/18 16:45 12/15/18 07:59 11/21/18 04:55 Doxycycline Hyclate 100 mg/ Dextrose 110 ml @ 110 mls/hr Q12HR IV 11/18/18 21:00 11/22/18 08:59 11/20/18 20:40 Hydromorphone HCl (Dilaudid) 0.5 mg Q4H PRN IVP For Pain 11/18/18 17:45 11/22/18 05:44 11/20/18 00:41 Insulin Aspart (NovoLOG) BEFORE MEALS AND HS SUBQ 11/18/18 21:00 12/15/18 06:29 11/21/18 06:20 Lorazepam (Ativan 2mg/ml 1ml) 0.5 mg Q4H PRN IV For Anxiety 11/18/18 17:45 11/22/18 05:44 11/21/18 04:17 Olanzapine (ZyPREXA Zydis) 7.5 mg DAILY GT 11/19/18 09:00 12/15/18 08:59 11/20/18 08:48 Pantoprazole (Protonix) 40 mg EVERY 12 HOURS IVP 11/18/18 21:00 12/15/18 08:59 11/20/18 20:40 Piperacillin Sod/ Tazobactam Sod 3.375 gm/Sodium Chloride 110 ml @ 27.5 mls/hr Q8H IVPB 11/18/18 20:00 11/22/18 11:59 11/21/18 04:55 Quetiapine Fumarate (SEROquel) 50 mg DAILY GT 11/19/18 09:00 12/15/18 08:59 11/20/18 08:48 Tamsulosin HCl (Flomax) 0.4 mg BEDTIME ORAL 11/18/18 21:00 12/15/18 20:59 11/20/18 20:40 Last 24 Hour Vital Signs Date Time Temp Pulse Resp B/P (MAP) Pulse Ox O2 Delivery O2 Flow Rate FiO2 11/21/18 08:00 40 11/21/18 08:00 99.2 83 34 146/73 (97) 100 11/21/18 07:08 89 28 60 11/21/18 05:35 78 34 60 11/21/18 04:00 Mechanical Ventilator 11/21/18 04:00 99.0 104 30 144/73 (96) 95 11/21/18 04:00 104 11/21/18 04:00 40 11/21/18 03:39 83 30 60 11/21/18 01:12 79 33 60 11/21/18 00:00 Mechanical Ventilator 11/21/18 00:00 98.6 84 31 144/88 (106) 94 11/20/18 23:23 88 11/20/18 23:14 84 31 60 11/20/18 21:42 72 28 60 11/20/18 20:00 40 11/20/18 20:00 100 11/20/18 20:00 Mechanical Ventilator 11/20/18 20:00 98.5 97 34 164/84 (110) 93 11/20/18 19:27 69 31 60 11/20/18 17:20 88 33 60 11/20/18 16:00 97.3 89 33 145/73 (97) 95 11/20/18 16:00 Mechanical Ventilator 11/20/18 16:00 40 11/20/18 15:33 85 11/20/18 15:29 80 26 60 11/20/18 12:57 94 28 60 11/20/18 12:00 Mechanical Ventilator 11/20/18 12:00 97.5 93 30 157/79 (105) 100 11/20/18 12:00 40 11/20/18 11:40 77 11/20/18 10:58 92 26 60 11/20/18 09:27 84 22 60 11/20/18 08:00 97.5 80 34 120/67 (84) 100 11/20/18 08:00 Mechanical Ventilator 11/20/18 08:00 40 11/20/18 07:50 79 11/20/18 07:00 82 23 60 11/20/18 05:15 78 22 60 11/20/18 04:00 Mechanical Ventilator 11/20/18 04:00 40 11/20/18 04:00 98.4 82 32 126/72 (90) 99 11/20/18 03:36 70 11/20/18 03:27 75 22 60 11/20/18 02:30 74 23 99 Mechanical Ventilator 60 11/20/18 01:29 82 27 60 11/20/18 00:00 98.9 86 34 142/68 (92) 94 11/20/18 00:00 Mechanical Ventilator 11/19/18 23:33 87 11/19/18 23:26 90 33 95 Mechanical Ventilator 40 98 33 40 11/19/18 21:30 98 28 40 11/19/18 20:12 46 11/19/18 20:00 Mechanical Ventilator 11/19/18 20:00 40 11/19/18 20:00 99.0 90 34 141/75 (97) 93 11/19/18 19:30 120 37 40 11/19/18 19:04 91 11/19/18 17:36 84 24 40 11/19/18 17:21 84 24 40 11/19/18 16:00 98.9 87 24 141/88 (105) 96 11/19/18 16:00 Mechanical Ventilator 11/19/18 16:00 40 11/19/18 15:14 87 11/19/18 15:09 87 23 97 Mechanical Ventilator 40 87 22 40 11/19/18 13:18 83 29 40 11/19/18 12:00 40 11/19/18 12:00 Mechanical Ventilator 11/19/18 12:00 98.2 82 24 140/76 (97) 98 11/19/18 11:44 79 11/19/18 11:36 79 23 97 Mechanical Ventilator 40 79 23 40 11/19/18 09:19 83 22 40 Intake and Output 11/20/18 11/21/18 18:59 06:59 Intake Total 1750 ml 1677.5 ml Balance 1750 ml 1677.5 ml Intake Free Water 200 ml IV Total 1000 ml 1237.5 ml Tube Feeding 550 ml 440 ml # Voids 4 2 # Bowel Movements 1 1 Labs Test 11/19/18 03:30 11/20/18 04:00 11/21/18 03:00 White Blood Count 13.5 K/UL (4.8-10.8) 12.6 K/UL (4.8-10.8) 12.7 K/UL (4.8-10.8) Red Blood Count 3.26 M/UL (4.70-6.10) 3.54 M/UL (4.70-6.10) 3.33 M/UL (4.70-6.10) Hemoglobin 8.9 G/DL (14.2-18.0) 9.7 G/DL (14.2-18.0) 9.0 G/DL (14.2-18.0) Hematocrit 28.1 % (42.0-52.0) 30.5 % (42.0-52.0) 28.8 % (42.0-52.0) Mean Corpuscular Volume 86 FL (80-99) 86 FL (80-99) 87 FL (80-99) Mean Corpuscular Hemoglobin 27.2 PG (27.0-31.0) 27.5 PG (27.0-31.0) 27.0 PG (27.0-31.0) Mean Corpuscular Hemoglobin Concent 31.6 G/DL (32.0-36.0) 32.0 G/DL (32.0-36.0) 31.2 G/DL (32.0-36.0) Red Cell Distribution Width 15.3 % (11.6-14.8) 15.4 % (11.6-14.8) 15.6 % (11.6-14.8) Platelet Count 199 K/UL (150-450) 197 K/UL (150-450) 218 K/UL (150-450) Mean Platelet Volume 7.5 FL (6.5-10.1) 7.3 FL (6.5-10.1) 7.5 FL (6.5-10.1) Neutrophils (%) (Auto) % (45.0-75.0) 76.8 % (45.0-75.0) 79.1 % (45.0-75.0) Lymphocytes (%) (Auto) % (20.0-45.0) 10.9 % (20.0-45.0) 9.6 % (20.0-45.0) Monocytes (%) (Auto) % (1.0-10.0) 9.5 % (1.0-10.0) 8.1 % (1.0-10.0) Eosinophils (%) (Auto) % (0.0-3.0) 2.0 % (0.0-3.0) 2.5 % (0.0-3.0) Basophils (%) (Auto) % (0.0-2.0) 0.7 % (0.0-2.0) 0.7 % (0.0-2.0) Differential Total Cells Counted 100 Neutrophils % (Manual) 88 % (45-75) Lymphocytes % (Manual) 4 % (20-45) Monocytes % (Manual) 5 % (1-10) Eosinophils % (Manual) 2 % (0-3) Basophils % (Manual) 1 % (0-2) Band Neutrophils 0 % (0-8) Platelet Estimate Adequate Platelet Morphology Normal Hypochromasia 1+ Anisocytosis 1+ Sodium Level 145 MMOL/L (136-145) 147 MMOL/L (136-145) 147 MMOL/L (136-145) Potassium Level 3.9 MMOL/L (3.5-5.1) 4.2 MMOL/L (3.5-5.1) 4.4 MMOL/L (3.5-5.1) Chloride Level 113 MMOL/L (98-107) 115 MMOL/L (98-107) 114 MMOL/L (98-107) Carbon Dioxide Level 26 MMOL/L (21-32) 29 MMOL/L (21-32) 29 MMOL/L (21-32) Anion Gap 6 mmol/L (5-15) 3 mmol/L (5-15) 4 mmol/L (5-15) Blood Urea Nitrogen 18 mg/dL (7-18) 15 mg/dL (7-18) 15 mg/dL (7-18) Creatinine 1.0 MG/DL (0.55-1.30) 0.9 MG/DL (0.55-1.30) 0.8 MG/DL (0.55-1.30) Estimat Glomerular Filtration Rate mL/min (>60) mL/min (>60) mL/min (>60) Glucose Level 188 MG/DL (74-106) 80 MG/DL (74-106) 104 MG/DL (74-106) Calcium Level 8.1 MG/DL (8.5-10.1) 8.4 MG/DL (8.5-10.1) 8.6 MG/DL (8.5-10.1) Phosphorus Level 2.8 MG/DL (2.5-4.9) 3.0 MG/DL (2.5-4.9) Magnesium Level 1.8 MG/DL (1.8-2.4) 1.7 MG/DL (1.8-2.4) Total Bilirubin 0.4 MG/DL (0.2-1.0) Gamma Glutamyl Transpeptidase 198 U/L (5-85) Aspartate Amino Transf (AST/SGOT) 71 U/L (15-37) Alanine Aminotransferase (ALT/SGPT) 216 U/L (12-78) Alkaline Phosphatase 158 U/L (46-116) Total Creatine Kinase 48 U/L (26-308) C-Reactive Protein, Quantitative 11.9 mg/dL (0.00-0.90) Pro-B-Type Natriuretic Peptide 3995 pg/mL (0-125) Total Protein 6.4 G/DL (6.4-8.2) Albumin 2.0 G/DL (3.4-5.0) Globulin 4.4 g/dL Albumin/Globulin Ratio 0.5 (1.0-2.7) Height (Feet): 5 Height (Inches): 8.00 Weight (Pounds): 164 Objective Vitals: reviewed Gen: no apparent distress Head: normocephalic EENT: normal ENT inspection Respiratory: other - intubated vent+ Cardiovascular: normal rate Gastrointestinal: gt - c/d/i Rectal: deferred Genitourinary: no CVA tenderness Skin: normal color +++ Beny Rao MD Nov 21, 2018 09:13
[2018-11-21] MEDS: ZyPREXA Zydis 5mg tab GT SCH (09:52)
[2018-11-21] MEDS: Doxycycline Hyclate 100 MG in D5W 110 ML IV SCH ×2 (09:55→21:00)
[2018-11-21] MEDS: Pantoprazole Inj IVP SCH ×2 (09:55→21:00)
[2018-11-21 12:00] VITALS: BP 167/97
--- NOTE | 2018-11-21 13:08 | Nephrology Progress Note ---
Assessment/Plan Problem List: (1) Septic shock (2) Ventilator dependence (3) Renal failure (ARF), acute on chronic (4) Prostate enlargement (5) Anemia Assessment Septic Shock Acute renal failure CKD underlying BPH Sever Anemia Chronic trach-Vent DM HypoAlbuminemia HyperNatremia Dementia Troponin elevation Plan labs reviewed- mag IV Fluid challenge avoid Nephrotoxics transfuse crabtree monitor urine out put and renal parameters per orders Subjective ROS Limited/Unobtainable: Yes Objective Objective Last 24 Hour Vital Signs Date Time Temp Pulse Resp B/P (MAP) Pulse Ox O2 Delivery O2 Flow Rate FiO2 11/21/18 12:00 40 11/21/18 12:00 Mechanical Ventilator 11/21/18 12:00 99.0 98 28 167/97 (120) 99 11/21/18 11:33 95 11/21/18 10:49 91 24 60 11/21/18 09:29 97 28 60 11/21/18 08:00 Mechanical Ventilator 11/21/18 08:00 40 11/21/18 08:00 99.2 83 34 146/73 (97) 100 11/21/18 07:36 83 11/21/18 07:08 89 28 60 11/21/18 05:35 78 34 60 11/21/18 04:00 Mechanical Ventilator 11/21/18 04:00 99.0 104 30 144/73 (96) 95 11/21/18 04:00 104 11/21/18 04:00 40 11/21/18 03:39 83 30 60 11/21/18 01:12 79 33 60 11/21/18 00:00 Mechanical Ventilator 11/21/18 00:00 98.6 84 31 144/88 (106) 94 11/20/18 23:23 88 11/20/18 23:14 84 31 60 11/20/18 21:42 72 28 60 11/20/18 20:00 40 11/20/18 20:00 100 11/20/18 20:00 Mechanical Ventilator 11/20/18 20:00 98.5 97 34 164/84 (110) 93 11/20/18 19:27 69 31 60 11/20/18 17:20 88 33 60 11/20/18 16:00 97.3 89 33 145/73 (97) 95 11/20/18 16:00 Mechanical Ventilator 11/20/18 16:00 40 11/20/18 15:33 85 11/20/18 15:29 80 26 60 Intake and Output 11/20/18 11/21/18 19:00 07:00 Intake Total 1695 ml 1632.5 ml Balance 1695 ml 1632.5 ml Intake Free Water 200 ml IV Total 1000 ml 1137.5 ml Tube Feeding 495 ml 495 ml # Voids 4 2 # Bowel Movements 1 1 Laboratory Tests 11/21/18 03:00: White Blood Count 12.7H, Red Blood Count 3.33L, Hemoglobin 9.0L, Hematocrit 28.8L, Mean Corpuscular Volume 87, Mean Corpuscular Hemoglobin 27.0, Mean Corpuscular Hemoglobin Concent 31.2L, Red Cell Distribution Width 15.6H, Platelet Count 218, Mean Platelet Volume 7.5, Neutrophils (%) (Auto) 79.1H, Lymphocytes (%) (Auto) 9.6L, Monocytes (%) (Auto) 8.1, Eosinophils (%) (Auto) 2.5, Basophils (%) (Auto) 0.7, Sodium Level 147H, Potassium Level 4.4, Chloride Level 114H, Carbon Dioxide Level 29, Anion Gap 4L, Blood Urea Nitrogen 15, Creatinine 0.8, Estimat Glomerular Filtration Rate , Glucose Level 104, Calcium Level 8.6 Height (Feet): 5 Height (Inches): 8.00 Weight (Pounds): 164 General Appearance: no apparent distress EENT: other - trach Cardiovascular: tachycardia Respiratory/Chest: decreased breath sounds Abdomen: distended Objective no change Randolph Fernandes MD Nov 21, 2018 13:08
--- NOTE | 2018-11-21 13:29 | GI Progress Note ---
Assessment/Plan Problems: (1) PEG (percutaneous endoscopic gastrostomy) status ICD Codes: Z93.1 - Gastrostomy status SNOMED: 791570420, 964681112 (2) GIB (gastrointestinal bleeding) ICD Codes: K92.2 - Gastrointestinal hemorrhage, unspecified SNOMED: 95941491 (3) Anemia ICD Codes: D64.9 - Anemia, unspecified SNOMED: 122314089 (4) Constipation ICD Codes: K59.00 - Constipation, unspecified SNOMED: 89703419 (5) Gastrostomy tube dependent ICD Codes: Z93.1 - Gastrostomy status SNOMED: 434794657, 830835143 (6) DM (7) Encephalopathy due to metabolic factor or toxin SNOMED: 655233065 Status: unchanged Assessment/Plan OB stool positive x2 hepatitis panel negative Plan for EGD tomorrow. N.p.o. at midnight Hold all blood thinners tonight ppi prn blood transfusion abx per ID GTF Hold iron supplementation given elevated ferritin levels abx fu labs We will follow with additional recommendations postprocedure The patient was seen and examined at bedside and all new and available data was reviewed in the patients chart. I agree with the above findings, impression and plan. (Patient seen earlier today. Signature stamp does not reflect patient encounter time.). - Juan Coronel MD Subjective Subjective limited Objective Last 24 Hour Vital Signs Date Time Temp Pulse Resp B/P (MAP) Pulse Ox O2 Delivery O2 Flow Rate FiO2 11/21/18 12:00 40 11/21/18 12:00 Mechanical Ventilator 11/21/18 12:00 99.0 98 28 167/97 (120) 99 11/21/18 11:33 95 11/21/18 10:49 91 24 60 11/21/18 09:29 97 28 60 11/21/18 08:00 Mechanical Ventilator 11/21/18 08:00 40 11/21/18 08:00 99.2 83 34 146/73 (97) 100 11/21/18 07:36 83 11/21/18 07:08 89 28 60 11/21/18 05:35 78 34 60 11/21/18 04:00 Mechanical Ventilator 11/21/18 04:00 99.0 104 30 144/73 (96) 95 11/21/18 04:00 104 11/21/18 04:00 40 11/21/18 03:39 83 30 60 11/21/18 01:12 79 33 60 11/21/18 00:00 Mechanical Ventilator 11/21/18 00:00 98.6 84 31 144/88 (106) 94 11/20/18 23:23 88 11/20/18 23:14 84 31 60 11/20/18 21:42 72 28 60 11/20/18 20:00 40 11/20/18 20:00 100 11/20/18 20:00 Mechanical Ventilator 11/20/18 20:00 98.5 97 34 164/84 (110) 93 11/20/18 19:27 69 31 60 11/20/18 17:20 88 33 60 11/20/18 16:00 97.3 89 33 145/73 (97) 95 11/20/18 16:00 Mechanical Ventilator 11/20/18 16:00 40 11/20/18 15:33 85 11/20/18 15:29 80 26 60 Intake and Output 11/20/18 11/21/18 19:00 07:00 Intake Total 1695 ml 1632.5 ml Balance 1695 ml 1632.5 ml Intake Free Water 200 ml IV Total 1000 ml 1137.5 ml Tube Feeding 495 ml 495 ml # Voids 4 2 # Bowel Movements 1 1 Laboratory Tests Test 11/21/18 03:00 White Blood Count 12.7 K/UL (4.8-10.8) H Red Blood Count 3.33 M/UL (4.70-6.10) L Hemoglobin 9.0 G/DL (14.2-18.0) L Hematocrit 28.8 % (42.0-52.0) L Mean Corpuscular Volume 87 FL (80-99) Mean Corpuscular Hemoglobin 27.0 PG (27.0-31.0) Mean Corpuscular Hemoglobin Concent 31.2 G/DL (32.0-36.0) L Red Cell Distribution Width 15.6 % (11.6-14.8) H Platelet Count 218 K/UL (150-450) Mean Platelet Volume 7.5 FL (6.5-10.1) Neutrophils (%) (Auto) 79.1 % (45.0-75.0) H Lymphocytes (%) (Auto) 9.6 % (20.0-45.0) L Monocytes (%) (Auto) 8.1 % (1.0-10.0) Eosinophils (%) (Auto) 2.5 % (0.0-3.0) Basophils (%) (Auto) 0.7 % (0.0-2.0) Sodium Level 147 MMOL/L (136-145) H Potassium Level 4.4 MMOL/L (3.5-5.1) Chloride Level 114 MMOL/L (98-107) H Carbon Dioxide Level 29 MMOL/L (21-32) Anion Gap 4 mmol/L (5-15) L Blood Urea Nitrogen 15 mg/dL (7-18) Creatinine 0.8 MG/DL (0.55-1.30) Estimat Glomerular Filtration Rate mL/min (>60) Glucose Level 104 MG/DL (74-106) Calcium Level 8.6 MG/DL (8.5-10.1) Height (Feet): 5 Height (Inches): 8.00 Weight (Pounds): 164 General Appearance: alert Cardiovascular: normal rate Respiratory/Chest: normal breath sounds, no respiratory distress Abdominal Exam: soft Kishan Hopkins NP Nov 21, 2018 13:29
--- NOTE | 2018-11-21 13:30 | Infectious Diseases Prog Note ---
Assessment/Plan Assessment/Plan IMPRESSION: Sepsis, Pyuria/ UTI Pneumonia BPH, ventilator-dependent respiratory failure Leukemoid reaction,resolved Acute renal failure, improving Diabetes mellitus, anemia, hypoxemic respiratory failure, dementia. 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 Urologic evaluation Subjective ROS Limited/Unobtainable: Yes Allergies: Coded Allergies: TERAZOSIN (Verified Allergy, Unknown, 10/27/17) Objective Vital Signs Last 24 Hour Vital Signs Date Time Temp Pulse Resp B/P (MAP) Pulse Ox O2 Delivery O2 Flow Rate FiO2 11/21/18 12:00 40 11/21/18 12:00 Mechanical Ventilator 11/21/18 12:00 99.0 98 28 167/97 (120) 99 11/21/18 11:33 95 11/21/18 10:49 91 24 60 11/21/18 09:29 97 28 60 11/21/18 08:00 Mechanical Ventilator 11/21/18 08:00 40 11/21/18 08:00 99.2 83 34 146/73 (97) 100 11/21/18 07:36 83 11/21/18 07:08 89 28 60 11/21/18 05:35 78 34 60 11/21/18 04:00 Mechanical Ventilator 11/21/18 04:00 99.0 104 30 144/73 (96) 95 11/21/18 04:00 104 11/21/18 04:00 40 11/21/18 03:39 83 30 60 11/21/18 01:12 79 33 60 11/21/18 00:00 Mechanical Ventilator 11/21/18 00:00 98.6 84 31 144/88 (106) 94 11/20/18 23:23 88 11/20/18 23:14 84 31 60 11/20/18 21:42 72 28 60 11/20/18 20:00 40 11/20/18 20:00 100 11/20/18 20:00 Mechanical Ventilator 11/20/18 20:00 98.5 97 34 164/84 (110) 93 11/20/18 19:27 69 31 60 11/20/18 17:20 88 33 60 11/20/18 16:00 97.3 89 33 145/73 (97) 95 11/20/18 16:00 Mechanical Ventilator 11/20/18 16:00 40 11/20/18 15:33 85 11/20/18 15:29 80 26 60 Height (Feet): 5 Height (Inches): 8.00 Weight (Pounds): 164 HEENT: status post trach Respiratory/Chest: lungs clear, other - on ventilator Cardiovascular: normal rate, other - Left arm PICC line Abdomen: soft, non tender Genitourinary: other - phimosis Extremities: other - edema of hands Skin: ulcers Neurologic/Psychiatric: aphasia Microbiology Date/Time Source Procedure Growth Status 11/19/18 10:55 Blood Blood Culture - Preliminary NO GROWTH AFTER 24 HOURS Resulted 11/19/18 10:40 Blood Blood Culture - Preliminary NO GROWTH AFTER 24 HOURS Resulted Laboratory Tests Test 11/21/18 03:00 White Blood Count 12.7 K/UL (4.8-10.8) H Red Blood Count 3.33 M/UL (4.70-6.10) L Hemoglobin 9.0 G/DL (14.2-18.0) L Hematocrit 28.8 % (42.0-52.0) L Mean Corpuscular Volume 87 FL (80-99) Mean Corpuscular Hemoglobin 27.0 PG (27.0-31.0) Mean Corpuscular Hemoglobin Concent 31.2 G/DL (32.0-36.0) L Red Cell Distribution Width 15.6 % (11.6-14.8) H Platelet Count 218 K/UL (150-450) Mean Platelet Volume 7.5 FL (6.5-10.1) Neutrophils (%) (Auto) 79.1 % (45.0-75.0) H Lymphocytes (%) (Auto) 9.6 % (20.0-45.0) L Monocytes (%) (Auto) 8.1 % (1.0-10.0) Eosinophils (%) (Auto) 2.5 % (0.0-3.0) Basophils (%) (Auto) 0.7 % (0.0-2.0) Sodium Level 147 MMOL/L (136-145) H Potassium Level 4.4 MMOL/L (3.5-5.1) Chloride Level 114 MMOL/L (98-107) H Carbon Dioxide Level 29 MMOL/L (21-32) Anion Gap 4 mmol/L (5-15) L Blood Urea Nitrogen 15 mg/dL (7-18) Creatinine 0.8 MG/DL (0.55-1.30) Estimat Glomerular Filtration Rate mL/min (>60) Glucose Level 104 MG/DL (74-106) Calcium Level 8.6 MG/DL (8.5-10.1) Current Medications Medications (Trade) Dose Ordered Sig/Ruthie Route PRN Reason Start Time Stop Time Status Last Admin Dose Admin Acetaminophen (Tylenol) 650 mg Q6H PRN NG Mild Pain/Temp > 100.5 11/18/18 17:45 12/15/18 05:44 Acetaminophen/ Hydrocodone Bitart ([place] 5/325) 1 tab Q4H PRN ORAL Moderate Pain (Pain Scale 4-6) 11/18/18 17:45 11/22/18 05:44 11/20/18 04:08 Bisacodyl (Dulcolax) 10 mg DAILYPRN PRN RECTAL Constipation 11/18/18 16:30 12/18/18 16:29 Chlorhexidine Gluconate (Rachael-Hex 2%) 1 applic DAILY@2000 TOPIC 11/18/18 20:00 12/15/18 19:59 11/20/18 20:39 Dextrose (Dextrose 50%) 25 ml Q30M PRN IV Hypoglycemia 11/18/18 16:45 12/15/18 05:44 Dextrose (Dextrose 50%) 50 ml Q30M PRN IV Hypoglycemia 11/18/18 16:45 12/15/18 05:44 Dextrose/Sodium Chloride 1,000 ml @ 50 mls/hr Q20H IV 11/21/18 13:09 12/21/18 13:08 Doxycycline Hyclate 100 mg/ Dextrose 110 ml @ 110 mls/hr Q12HR IV 11/18/18 21:00 11/26/18 20:59 11/21/18 09:55 Hydromorphone HCl (Dilaudid) 0.5 mg Q4H PRN IVP For Pain 11/18/18 17:45 11/22/18 05:44 11/20/18 00:41 Insulin Aspart (NovoLOG) BEFORE MEALS AND HS SUBQ 11/18/18 21:00 12/15/18 06:29 11/21/18 12:35 Lorazepam (Ativan 2mg/ml 1ml) 0.5 mg Q4H PRN IV For Anxiety 11/18/18 17:45 11/22/18 05:44 11/21/18 04:17 Olanzapine (ZyPREXA Zydis) 7.5 mg DAILY GT 11/19/18 09:00 12/15/18 08:59 11/21/18 09:52 Pantoprazole (Protonix) 40 mg EVERY 12 HOURS IVP 11/18/18 21:00 12/15/18 08:59 11/21/18 09:55 Piperacillin Sod/ Tazobactam Sod 3.375 gm/Sodium Chloride 110 ml @ 27.5 mls/hr Q8H IVPB 11/18/18 20:00 11/26/18 19:59 11/21/18 12:36 Quetiapine Fumarate (SEROquel) 50 mg DAILY GT 11/19/18 09:00 12/15/18 08:59 11/21/18 09:52 Tamsulosin HCl (Flomax) 0.4 mg BEDTIME ORAL 11/18/18 21:00 12/15/18 20:59 11/20/18 20:40 Anam Cruz MD Nov 21, 2018 13:30
--- NOTE | 2018-11-21 14:09 | Pulmonolgy Critical Care Note ---
Critical Care - Asmt/Plan Assessment/Plan: Pulmonary Critical Care Progress Note HPI Patient is an 88-year-old male [facility] with fever, Pneumonia. Patient had prior history of Dementia, BPH, Diabetes, Hypertension as well as CHF. Patient is chronically ventilator dependent. History is limited by patient's mental status - non verbal on ventilator Allergies: TERAZOSIN Past Medical History: Dementia, Organic Brain Syndrome, BPH, Diabetes, Hypertension, CHF, G tube All Other Systems: limited - Review of systems Stable overnight Physical Exam Vital Signs Noted General Appearance: Chronically Ill Eyes: PERRL Neck: dry mm, trach site cdi Respiratory: CTAB Heart: HS1, HS2, RRR Gastrointestinal: no pulsatile mass, Gtube CDI Musculoskeletal: decreased range of motion, weak, wasted, congtracted Neurologic: Reduced LOC, contracted, orthotics in place Impression: Pneumonia Ventilator dependant respiratory failure Severe sepsis - improved Mild Pulmonary congestion on CXR NSTEMI Anemia - H+H stable Dysphagia s/p G tube Chronic wounds Dementia Organic Brain Syndrome Diabetes Chronic renal disease Prostate enlargement Penile wound CHF H/o Hypertension Low Albumin c/w Protein Calorie Malnutrition, chronic illness Plan Antibiotics per ID Diurese PRN HHN Q4 Continue current AC ventilator settings Adjust FIO2 for sats 90-96% Monitor cultures LE dupplex negative Monitor labs PPX [employer] 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 Tracheostomy tube terminates in the region of the upper thoracic trachea. Probable G-tube projected over the upper abdomen. 2. Diffuse hazy and interstitial opacities are concerning for pulmonary edema and pulmonary vasculature congestion. Bilateral pleural effusions with associated atelectasis versus pneumonia. Critical Care - Objective Last 24 Hour Vital Signs Date Time Temp Pulse Resp B/P (MAP) Pulse Ox O2 Delivery O2 Flow Rate FiO2 11/21/18 13:29 88 23 60 11/21/18 12:00 40 11/21/18 12:00 Mechanical Ventilator 11/21/18 12:00 99.0 98 28 167/97 (120) 99 11/21/18 11:33 95 11/21/18 10:49 91 24 60 11/21/18 09:29 97 28 60 11/21/18 08:00 Mechanical Ventilator 11/21/18 08:00 40 11/21/18 08:00 99.2 83 34 146/73 (97) 100 11/21/18 07:36 83 11/21/18 07:08 89 28 60 11/21/18 05:35 78 34 60 11/21/18 04:00 Mechanical Ventilator 11/21/18 04:00 99.0 104 30 144/73 (96) 95 11/21/18 04:00 104 11/21/18 04:00 40 11/21/18 03:39 83 30 60 11/21/18 01:12 79 33 60 11/21/18 00:00 Mechanical Ventilator 11/21/18 00:00 98.6 84 31 144/88 (106) 94 11/20/18 23:23 88 11/20/18 23:14 84 31 60 11/20/18 21:42 72 28 60 11/20/18 20:00 40 11/20/18 20:00 100 11/20/18 20:00 Mechanical Ventilator 11/20/18 20:00 98.5 97 34 164/84 (110) 93 11/20/18 19:27 69 31 60 11/20/18 17:20 88 33 60 11/20/18 16:00 97.3 89 33 145/73 (97) 95 11/20/18 16:00 Mechanical Ventilator 11/20/18 16:00 40 11/20/18 15:33 85 11/20/18 15:29 80 26 60 Micro: Microbiology Date/Time Source Procedure Growth Status 11/19/18 10:55 Blood Blood Culture - Preliminary NO GROWTH AFTER 24 HOURS Resulted 11/19/18 10:40 Blood Blood Culture - Preliminary NO GROWTH AFTER 24 HOURS Resulted Accucheck: 118 Critical Care - Subjective ROS Limited/Unobtainable: No FI02: 60 Vent Support Breath Rate: 22 Vent Support Mode: AC Vent Tidal Volume: 400 Sputum Amount: Small PEEP: 5.0 PIP: 35 Tube Feeding Amount: 55 I&O: Intake and Output 11/20/18 11/21/18 19:00 07:00 Intake Total 1695 ml 1632.5 ml Balance 1695 ml 1632.5 ml Intake Free Water 200 ml IV Total 1000 ml 1137.5 ml Tube Feeding 495 ml 495 ml # Voids 4 2 # Bowel Movements 1 1 Booker Baumann MD Nov 21, 2018 14:09
--- NOTE | 2018-11-21 14:37 | Surgery Progress Note ---
Surgery Progress Note Subjective Additional Comments spoke with urology. plan for eval today to [facility] or possible spc labs noted exam stable Objective Last 24 Hour Vital Signs Date Time Temp Pulse Resp B/P (MAP) Pulse Ox O2 Delivery O2 Flow Rate FiO2 11/21/18 13:29 88 23 60 11/21/18 12:00 40 11/21/18 12:00 Mechanical Ventilator 11/21/18 12:00 99.0 98 28 167/97 (120) 99 11/21/18 11:33 95 11/21/18 10:49 91 24 60 11/21/18 09:29 97 28 60 11/21/18 08:00 Mechanical Ventilator 11/21/18 08:00 40 11/21/18 08:00 99.2 83 34 146/73 (97) 100 11/21/18 07:36 83 11/21/18 07:08 89 28 60 11/21/18 05:35 78 34 60 11/21/18 04:00 Mechanical Ventilator 11/21/18 04:00 99.0 104 30 144/73 (96) 95 11/21/18 04:00 104 11/21/18 04:00 40 11/21/18 03:39 83 30 60 11/21/18 01:12 79 33 60 11/21/18 00:00 Mechanical Ventilator 11/21/18 00:00 98.6 84 31 144/88 (106) 94 11/20/18 23:23 88 11/20/18 23:14 84 31 60 11/20/18 21:42 72 28 60 11/20/18 20:00 40 11/20/18 20:00 100 11/20/18 20:00 Mechanical Ventilator 11/20/18 20:00 98.5 97 34 164/84 (110) 93 11/20/18 19:27 69 31 60 11/20/18 17:20 88 33 60 11/20/18 16:00 97.3 89 33 145/73 (97) 95 11/20/18 16:00 Mechanical Ventilator 11/20/18 16:00 40 11/20/18 15:33 85 11/20/18 15:29 80 26 60 I&O Intake and Output 11/20/18 11/21/18 19:00 07:00 Intake Total 1695 ml 1632.5 ml Balance 1695 ml 1632.5 ml Intake Free Water 200 ml IV Total 1000 ml 1137.5 ml Tube Feeding 495 ml 495 ml # Voids 4 2 # Bowel Movements 1 1 Dressing: saturated Wound: other Drains: other Cardiovascular: RSR Respiratory: decreased breath sounds Abdomen: soft, present bowel sounds Extremities: no cyanosis Laboratory Tests Test 11/21/18 03:00 White Blood Count 12.7 K/UL (4.8-10.8) H Red Blood Count 3.33 M/UL (4.70-6.10) L Hemoglobin 9.0 G/DL (14.2-18.0) L Hematocrit 28.8 % (42.0-52.0) L Mean Corpuscular Volume 87 FL (80-99) Mean Corpuscular Hemoglobin 27.0 PG (27.0-31.0) Mean Corpuscular Hemoglobin Concent 31.2 G/DL (32.0-36.0) L Red Cell Distribution Width 15.6 % (11.6-14.8) H Platelet Count 218 K/UL (150-450) Mean Platelet Volume 7.5 FL (6.5-10.1) Neutrophils (%) (Auto) 79.1 % (45.0-75.0) H Lymphocytes (%) (Auto) 9.6 % (20.0-45.0) L Monocytes (%) (Auto) 8.1 % (1.0-10.0) Eosinophils (%) (Auto) 2.5 % (0.0-3.0) Basophils (%) (Auto) 0.7 % (0.0-2.0) Sodium Level 147 MMOL/L (136-145) H Potassium Level 4.4 MMOL/L (3.5-5.1) Chloride Level 114 MMOL/L (98-107) H Carbon Dioxide Level 29 MMOL/L (21-32) Anion Gap 4 mmol/L (5-15) L Blood Urea Nitrogen 15 mg/dL (7-18) Creatinine 0.8 MG/DL (0.55-1.30) Estimat Glomerular Filtration Rate mL/min (>60) Glucose Level 104 MG/DL (74-106) Calcium Level 8.6 MG/DL (8.5-10.1) Plan Problems: (1) Severe sepsis Assessment & Plan: leukocytosis, anemia, lactic acidosis, fevers IV Abx imaging noted and reviewed US with no stones or dilated ducts elevated lft's likely due to liver disease exam as below cont abx trend labs thank you will follow with recs (2) Malnutrition Assessment & Plan: DAILY ESTIMATED NEEDS: Needs based on Critical care, sepsis 71.8 kg 22-30 kcals/kg 0600-9535 total kcals 1.2-2 g protein/kg 86- 144 g total protein 25-30 mL/kg 1795- 2154 total fluid mLs NUTRITION DIAGNOSIS: * Swallowing difficulty R/T respiratory status and dysphagia as evidenced by pt is vent dep, on TF. * Altered nutrition related lab values r/t sepsis, clinical status, h/o Diabetes as evidenced by critically elev WBC (47.2), low Hgb (6.6), elev BNP, low BP (96/41), BG 191, POC 179. CURRENT TF: Jevity 1.2 @ 70mL/hr x 20hr - NOW NPO ENTERAL NUTRITION RECOMMENDATIONS: Vital 1.2 @55mL/hr x24 hrs to provide 1320mL, 1584kcal, 99g pro, 1071mL free H2O * As medically appropriate to feed, rec TF change to VITAL 1.2 for critical care. * Start Vital 1,2, @25mL, advance as tolerated 10ml/hr q4-6 hrs to goal * HOB over 30 degrees/ water flush per MD --- Low Hgb (6.6), NPO per GI-> rec trophic feeds when appropriate if pt remains hypotensive. ADDITIONAL RECOMMENDATIONS: * Per SNF: HT 68 inches WT 158 lbs + Daily calibrated bed scale wts * Change TF to Vital 1.2, as medically able to feed * Monitor lytes (replete as needed) * F/up w/ WC eval . (3) Sacral decubitus ulcer Assessment & Plan: Pt presented on admission with contractures and multiple pressure injuries. Partially opened DTPI L buttocks. Base of wound moist - viable with surrounding dark and fluctuant borders.(L)1.2cm x (W)1cm. Small amt of sanguineous exudate noted. No odor noted. Hyperpigmentation noted to sacrum. Historical scar from previous wound noted to L trochanter. Penile head retracted within foreskin and small wound noted within folds of foreskin. Wound is moist and viable. No odor or exudate noted. No erythema noted periwound. Resolving pressure injury plantar R heel. Base of wound 50% epithelialized, 50% moist and viable.(L)5.5cm x (W)6.5cm. Resolving pressure injury lateral L heel. Base of wound is moist and viable with surrounding hyperpigmentation.(L)0.6cm x (W)0.5cm. Scattered loose, dry brown skin noted to medial and posterior L heel. Tx.Plan: Apply Moisture Barrier Paste to L buttocks and sacrum. Cover with Optifoam drsg. Change every 3 days and prn. Cleanse head of penis with soap and water. Apply Bacitracin oint Twice Daily. Apply Betadine to R and L heel wounds. Cover each heel with Optifoam drsg. Daily and prn. APM/ABDELRAHMAN Mattress overlay. Reposition at least every 2hours and prn. Off-load heels with pillow. Don Carvalho Nov 21, 2018 14:37
--- NOTE | 2018-11-21 14:42 | Cardiac Electrophysiology PN ---
Assessment/Plan Assessment/Plan 1. S/P Septic shock with white count of 50,000 and lactic acid of 6. On IV antibiotic and IV fluid . Ech Nl EF. WBC down to 12 on Abx. PICC line repositioned 2. Congestive heart failure with BNP of more than 17,000. Now BNP 3900 3. Troponin elevation, likely due to renal failure and anemia and septic shock. The levels are flat. EKG does not show any ST elevation. 4. Acute renal failure. BUN of 48, creatinine of 2.5. Resolved BUN 15 and Cr now 0.8 5. Hypernatremia. Better with iv fluid 6. Ventilator-dependent respiratory failure, status post tracheostomy. 7. Dysphagia, status post PEG placement. 8. Profound anemia, hemoglobin of 6.5, rule out GI bleed. S/P blood transfusion. DW RN Subjective Subjective Transferred out of ICU on the Vent in SR. S/P PICC line repositioned. RN at bedside Objective Last 24 Hour Vital Signs Date Time Temp Pulse Resp B/P (MAP) Pulse Ox O2 Delivery O2 Flow Rate FiO2 11/21/18 13:29 88 23 60 11/21/18 12:00 40 11/21/18 12:00 Mechanical Ventilator 11/21/18 12:00 99.0 98 28 167/97 (120) 99 11/21/18 11:33 95 11/21/18 10:49 91 24 60 11/21/18 09:29 97 28 60 11/21/18 08:00 Mechanical Ventilator 11/21/18 08:00 40 11/21/18 08:00 99.2 83 34 146/73 (97) 100 11/21/18 07:36 83 11/21/18 07:08 89 28 60 11/21/18 05:35 78 34 60 11/21/18 04:00 Mechanical Ventilator 11/21/18 04:00 99.0 104 30 144/73 (96) 95 11/21/18 04:00 104 11/21/18 04:00 40 11/21/18 03:39 83 30 60 11/21/18 01:12 79 33 60 11/21/18 00:00 Mechanical Ventilator 11/21/18 00:00 98.6 84 31 144/88 (106) 94 11/20/18 23:23 88 11/20/18 23:14 84 31 60 11/20/18 21:42 72 28 60 11/20/18 20:00 40 11/20/18 20:00 100 11/20/18 20:00 Mechanical Ventilator 11/20/18 20:00 98.5 97 34 164/84 (110) 93 11/20/18 19:27 69 31 60 11/20/18 17:20 88 33 60 11/20/18 16:00 97.3 89 33 145/73 (97) 95 11/20/18 16:00 Mechanical Ventilator 11/20/18 16:00 40 11/20/18 15:33 85 11/20/18 15:29 80 26 60 Intake and Output 11/20/18 11/21/18 19:00 07:00 Intake Total 1695 ml 1632.5 ml Balance 1695 ml 1632.5 ml Intake Free Water 200 ml IV Total 1000 ml 1137.5 ml Tube Feeding 495 ml 495 ml # Voids 4 2 # Bowel Movements 1 1 Laboratory Tests Test 11/21/18 03:00 White Blood Count 12.7 K/UL (4.8-10.8) H Red Blood Count 3.33 M/UL (4.70-6.10) L Hemoglobin 9.0 G/DL (14.2-18.0) L Hematocrit 28.8 % (42.0-52.0) L Mean Corpuscular Volume 87 FL (80-99) Mean Corpuscular Hemoglobin 27.0 PG (27.0-31.0) Mean Corpuscular Hemoglobin Concent 31.2 G/DL (32.0-36.0) L Red Cell Distribution Width 15.6 % (11.6-14.8) H Platelet Count 218 K/UL (150-450) Mean Platelet Volume 7.5 FL (6.5-10.1) Neutrophils (%) (Auto) 79.1 % (45.0-75.0) H Lymphocytes (%) (Auto) 9.6 % (20.0-45.0) L Monocytes (%) (Auto) 8.1 % (1.0-10.0) Eosinophils (%) (Auto) 2.5 % (0.0-3.0) Basophils (%) (Auto) 0.7 % (0.0-2.0) Sodium Level 147 MMOL/L (136-145) H Potassium Level 4.4 MMOL/L (3.5-5.1) Chloride Level 114 MMOL/L (98-107) H Carbon Dioxide Level 29 MMOL/L (21-32) Anion Gap 4 mmol/L (5-15) L Blood Urea Nitrogen 15 mg/dL (7-18) Creatinine 0.8 MG/DL (0.55-1.30) Estimat Glomerular Filtration Rate mL/min (>60) Glucose Level 104 MG/DL (74-106) Calcium Level 8.6 MG/DL (8.5-10.1) Microbiology Date/Time Source Procedure Growth Status 11/19/18 10:55 Blood Blood Culture - Preliminary NO GROWTH AFTER 24 HOURS Resulted 11/19/18 10:40 Blood Blood Culture - Preliminary NO GROWTH AFTER 24 HOURS Resulted Objective HEAD AND NECK: Tracheostomy intact. LUNGS: Coarse rhonchi. CARDIOVASCULAR: Irregular irregular S1 and S2 with no gallop. ABDOMEN: Status post G-tube, distended. EXTREMITIES: Reveal 1+ edema. Luke Prather MD Nov 21, 2018 14:42
[2018-11-21 16:00] VITALS: BP 160/87
[2018-11-21 20:00] VITALS: BP 153/88
[2018-11-21] MEDS: Dyna-Hex 2% Top Sol 2oz TOPIC SCH (20:06)
[2018-11-21] MEDS: Tamsulosin 0.4mg cap ORAL SCH (20:59)
--- NOTE | 2018-11-21 21:17 | General Progress Note ---
Assessment/Plan Problem List: (1) Hypernatremia ICD Codes: E87.0 - Hyperosmolality and hypernatremia SNOMED: 30431765 (2) Rhabdomyolysis ICD Codes: M62.82 - Rhabdomyolysis SNOMED: 551145877 (3) Sacral decubitus ulcer ICD Codes: L89.159 - Pressure ulcer of sacral region, unspecified stage SNOMED: 968234003 (4) Severe sepsis ICD Codes: A41.9 - Sepsis, unspecified organism; R65.20 - Severe sepsis without septic shock SNOMED: 06262282 (5) Septic shock ICD Codes: A41.9 - Sepsis, unspecified organism; R65.21 - Severe sepsis with septic shock SNOMED: 87559056 (6) DM (7) Anemia ICD Codes: D64.9 - Anemia, unspecified SNOMED: 215532894 (8) Prostate enlargement ICD Codes: N40.0 - Benign prostatic hyperplasia without lower urinary tract symptoms SNOMED: 769446837 (9) Chronic renal disease ICD Codes: N18.9 - Chronic kidney disease, unspecified SNOMED: 630144212 (10) Ventilator dependence ICD Codes: Z99.11 - Dependence on respirator [ventilator] status SNOMED: 605461878 (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 - Gastrostomy status SNOMED: 739530864, 005084711 (12) Malnutrition ICD Codes: E46 - Unspecified protein-calorie malnutrition SNOMED: 71298547 Status: progressing, unchanged Assessment/Plan: phimosis asked dr ramos to see him for phimosis fluid management check lytes s/p anasarca chf per renal hypernatremia improving bph uti Subjective ROS Limited/Unobtainable: Yes Allergies: Coded Allergies: TERAZOSIN (Verified Allergy, Unknown, 10/27/17) Objective Last 24 Hour Vital Signs Date Time Temp Pulse Resp B/P (MAP) Pulse Ox O2 Delivery O2 Flow Rate FiO2 11/21/18 18:46 84 30 60 11/21/18 17:00 78 28 60 11/21/18 16:00 40 11/21/18 16:00 Mechanical Ventilator 11/21/18 16:00 99.5 100 30 160/87 (111) 96 11/21/18 15:38 86 11/21/18 15:07 92 26 60 11/21/18 13:29 88 23 60 11/21/18 12:00 40 11/21/18 12:00 Mechanical Ventilator 11/21/18 12:00 99.0 98 28 167/97 (120) 99 11/21/18 11:33 95 11/21/18 10:49 91 24 60 11/21/18 09:29 97 28 60 11/21/18 08:00 Mechanical Ventilator 11/21/18 08:00 40 11/21/18 08:00 99.2 83 34 146/73 (97) 100 11/21/18 07:36 83 11/21/18 07:08 89 28 60 11/21/18 05:35 78 34 60 11/21/18 04:00 Mechanical Ventilator 11/21/18 04:00 99.0 104 30 144/73 (96) 95 11/21/18 04:00 104 11/21/18 04:00 40 11/21/18 03:39 83 30 60 11/21/18 01:12 79 33 60 11/21/18 00:00 Mechanical Ventilator 11/21/18 00:00 98.6 84 31 144/88 (106) 94 11/20/18 23:23 88 11/20/18 23:14 84 31 60 11/20/18 21:42 72 28 60 Intake and Output 11/20/18 11/21/18 19:00 07:00 Intake Total 1695 ml 1732.5 ml Balance 1695 ml 1732.5 ml Intake Free Water 200 ml IV Total 1000 ml 1237.5 ml Tube Feeding 495 ml 495 ml # Voids 4 2 # Bowel Movements 1 1 Laboratory Tests 11/21/18 03:00: White Blood Count 12.7H, Red Blood Count 3.33L, Hemoglobin 9.0L, Hematocrit 28.8L, Mean Corpuscular Volume 87, Mean Corpuscular Hemoglobin 27.0, Mean Corpuscular Hemoglobin Concent 31.2L, Red Cell Distribution Width 15.6H, Platelet Count 218, Mean Platelet Volume 7.5, Neutrophils (%) (Auto) 79.1H, Lymphocytes (%) (Auto) 9.6L, Monocytes (%) (Auto) 8.1, Eosinophils (%) (Auto) 2.5, Basophils (%) (Auto) 0.7, Sodium Level 147H, Potassium Level 4.4, Chloride Level 114H, Carbon Dioxide Level 29, Anion Gap 4L, Blood Urea Nitrogen 15, Creatinine 0.8, Estimat Glomerular Filtration Rate , Glucose Level 104, Calcium Level 8.6 Height (Feet): 5 Height (Inches): 8.00 Weight (Pounds): 164 Cardiovascular: regular rhythm Respiratory/Chest: lungs clear Abdomen: soft Trish Matias MD Nov 21, 2018 21:17
[2018-11-22] VITALS (7 sets, daily range): BP systolic 142–162; BP diastolic 69–92
[2018-11-22] MEDS: Hydromorphone 0.5mg/0.5ml inj IVP PRN ×2 (01:36→22:56)
[2018-11-22 02:17] LABS: HEMATOCRIT 31.5 % (42.0-52.0); HEMOGLOBIN 9.9 G/DL (14.2-18.0); MEAN CORPUSCULAR VOLUME 87 FL (80-99); PLATELET COUNT 225 K/UL (150-450); RED BLOOD COUNT 3.63 M/UL (4.70-6.10); RED CELL DISTRIBUTION WIDTH 16.1 % (11.6-14.8); WHITE BLOOD COUNT 20.8 K/UL (4.8-10.8)
[2018-11-22 02:36] LABS: ALANINE AMINOTRANSFERASE 122 U/L (12-78); ALBUMIN 2.3 G/DL (3.4-5.0); ALBUMIN/GLOBULIN RATIO 0.5 (1.0-2.7); ALKALINE PHOSPHATASE 121 U/L (46-116); ANION GAP 3 mmol/L (5-15); ASPARTATE AMINO TRANSFERASE 32 U/L (15-37); BILIRUBIN,TOTAL 0.4 MG/DL (0.2-1.0); BLOOD UREA NITROGEN 18 mg/dL (7-18); CALCIUM 8.8 MG/DL (8.5-10.1); CARBON DIOXIDE 31 MMOL/L (21-32); CHLORIDE 112 MMOL/L (98-107); CREATININE 0.9 MG/DL (0.55-1.30); PHOSPHORUS 3.3 MG/DL (2.5-4.9); POTASSIUM 4.4 MMOL/L (3.5-5.1); SODIUM 146 MMOL/L (136-145)
[2018-11-22] MEDS: Piperacillin/Tazobactam 3.375 GM in NS 110 ML IVPB SCH ×3 (03:32→19:46)
[2018-11-22] MEDS: NovoLOG Insulin Flexpen SUBQ SCH ×4 (06:30→20:49)
[2018-11-22] MEDS: Doxycycline Hyclate 100 MG in D5W 110 ML IV SCH ×2 (08:12→20:45)
--- NOTE | 2018-11-22 09:24 | Cardiac Electrophysiology PN ---
Assessment/Plan Assessment/Plan 1. S/P Septic shock with white count of 50,000 and lactic acid of 6. On IV antibiotic and IV fluid . Ech Nl EF. WBC down to 12 on Abx. PICC line repositioned 2. Congestive heart failure with BNP of more than 17,000. Now BNP 3900 3. Troponin elevation, likely due to renal failure and anemia and septic shock. The levels are flat. EKG does not show any ST elevation. 4. Acute renal failure. BUN of 48, creatinine of 2.5. Resolved BUN 15 and Cr now 0.8 5. Hypernatremia. Better with iv fluid 6. Ventilator-dependent respiratory failure, status post tracheostomy. 7. Dysphagia, status post PEG placement. 8. Profound anemia, hemoglobin of 6.5, rule out GI bleed. S/P blood transfusion. EGD pending today DW RN Subjective Subjective In SDU on the Vent in SR. S/P PICC line repositioned. RN at bedside. NPO for EGD today for stool OB positive Objective Last 24 Hour Vital Signs Date Time Temp Pulse Resp B/P (MAP) Pulse Ox O2 Delivery O2 Flow Rate FiO2 11/22/18 07:23 50 11/22/18 07:21 92 25 60 11/22/18 05:01 90 29 60 11/22/18 04:00 40 11/22/18 04:00 Mechanical Ventilator 11/22/18 04:00 98 11/22/18 04:00 98.2 97 31 151/78 (102) 96 11/22/18 03:23 89 22 60 11/22/18 00:57 94 31 60 11/22/18 00:00 97.9 99 35 162/81 (108) 93 11/22/18 00:00 Mechanical Ventilator 11/22/18 00:00 96 11/21/18 22:34 110 29 60 11/21/18 21:06 89 28 60 11/21/18 20:00 40 11/21/18 20:00 Mechanical Ventilator 11/21/18 20:00 98.2 102 40 153/88 (109) 94 11/21/18 19:34 94 11/21/18 18:46 84 30 60 11/21/18 17:00 78 28 60 11/21/18 16:00 40 11/21/18 16:00 Mechanical Ventilator 11/21/18 16:00 99.5 100 30 160/87 (111) 96 11/21/18 15:38 86 11/21/18 15:07 92 26 60 11/21/18 13:29 88 23 60 11/21/18 12:00 40 11/21/18 12:00 Mechanical Ventilator 11/21/18 12:00 99.0 98 28 167/97 (120) 99 11/21/18 11:33 95 11/21/18 10:49 91 24 60 11/21/18 09:29 97 28 60 Intake and Output 11/21/18 11/22/18 19:00 07:00 Intake Total 1810 ml 580.33 ml Output Total 400 ml Balance 1810 ml 180.33 ml Intake Free Water 250 ml 100 ml IV Total 900 ml 205.33 ml Tube Feeding 660 ml 275 ml Output Urine Total 400 ml # Bowel Movements 2 2 Laboratory Tests Test 11/22/18 01:00 White Blood Count 20.8 K/UL (4.8-10.8) #H Red Blood Count 3.63 M/UL (4.70-6.10) L Hemoglobin 9.9 G/DL (14.2-18.0) L Hematocrit 31.5 % (42.0-52.0) L Mean Corpuscular Volume 87 FL (80-99) Mean Corpuscular Hemoglobin 27.2 PG (27.0-31.0) Mean Corpuscular Hemoglobin Concent 31.3 G/DL (32.0-36.0) L Red Cell Distribution Width 16.1 % (11.6-14.8) H Platelet Count 225 K/UL (150-450) Mean Platelet Volume 7.1 FL (6.5-10.1) Neutrophils (%) (Auto) % (45.0-75.0) Lymphocytes (%) (Auto) % (20.0-45.0) Monocytes (%) (Auto) % (1.0-10.0) Eosinophils (%) (Auto) % (0.0-3.0) Basophils (%) (Auto) % (0.0-2.0) Differential Total Cells Counted 100 Neutrophils % (Manual) 78 % (45-75) H Lymphocytes % (Manual) 8 % (20-45) L Monocytes % (Manual) 12 % (1-10) H Eosinophils % (Manual) 2 % (0-3) Basophils % (Manual) 0 % (0-2) Band Neutrophils 0 % (0-8) Platelet Estimate Adequate Platelet Morphology Normal Prothrombin Time 10.6 SEC (9.30-11.50) Prothromb Time International Ratio 1.0 (0.9-1.1) Activated Partial Thromboplast Time 25 SEC (23-33) Sodium Level 146 MMOL/L (136-145) H Potassium Level 4.4 MMOL/L (3.5-5.1) Chloride Level 112 MMOL/L (98-107) H Carbon Dioxide Level 31 MMOL/L (21-32) Anion Gap 3 mmol/L (5-15) L Blood Urea Nitrogen 18 mg/dL (7-18) Creatinine 0.9 MG/DL (0.55-1.30) Estimat Glomerular Filtration Rate mL/min (>60) Glucose Level 101 MG/DL (74-106) Calcium Level 8.8 MG/DL (8.5-10.1) Phosphorus Level 3.3 MG/DL (2.5-4.9) Magnesium Level 1.8 MG/DL (1.8-2.4) Total Bilirubin 0.4 MG/DL (0.2-1.0) Aspartate Amino Transf (AST/SGOT) 32 U/L (15-37) Alanine Aminotransferase (ALT/SGPT) 122 U/L (12-78) H Alkaline Phosphatase 121 U/L (46-116) H C-Reactive Protein, Quantitative 6.4 mg/dL (0.00-0.90) H Pro-B-Type Natriuretic Peptide 4739 pg/mL (0-125) H Total Protein 7.0 G/DL (6.4-8.2) Albumin 2.3 G/DL (3.4-5.0) L Globulin 4.7 g/dL Albumin/Globulin Ratio 0.5 (1.0-2.7) L Microbiology Date/Time Source Procedure Growth Status 11/19/18 10:55 Blood Blood Culture - Preliminary NO GROWTH AFTER 48 HOURS Resulted 11/19/18 10:40 Blood Blood Culture - Preliminary NO GROWTH AFTER 48 HOURS Resulted Objective HEAD AND NECK: Tracheostomy intact. LUNGS: Coarse rhonchi. CARDIOVASCULAR: Irregular irregular S1 and S2 with no gallop. ABDOMEN: Status post G-tube, distended. EXTREMITIES: Reveal 1+ edema. Toluie,Luke MD Nov 22, 2018 09:24
[2018-11-22] MEDS: Pantoprazole Inj IVP SCH ×2 (09:51→20:45)
[2018-11-22] MEDS: D5 1/2NS 1,000 ML IV SCH (09:53)
[2018-11-22] MEDS ORDERED: Propofol 200mg/20ml IV ONE (11:00)
[2018-11-22] MEDS ORDERED: Lidocaine 1% MPF 10mg/ml 5ml ONE (11:00)
[2018-11-22] MEDS ORDERED: NS 500ML IVPB ONE (11:20)
--- NOTE | 2018-11-22 11:28 | Pre-Procedure Note/Attestation ---
Pre-Procedure Note/Attestation Complete Prior to Procedure Planned Procedure: not applicable Procedure Narrative: egd Indications for Procedure Pre-Operative Diagnosis: gib Attestation I attest that I discussed the nature of the procedure; its benefits; risks and complications; and alternatives (and the risks and benefits of such alternatives ), prior to the procedure, with the patient (or the patient's legal traffic workforce representative). I attest that, if there was a reasonable possibility of needing a blood transfusion, the patient (or the patient's legal traffic workforce representative) was given the [facility] standardized written summary, pursuant to the Rol[employer] Kip Blood Safety Act ([place] Health and Safety Code # 1645, as amended). I attest that I re-evaluated the patient just prior to the surgery and that there has been no change in the patient's H&P, except as documented below: Juan Coronel MD Nov 22, 2018 11:28
--- NOTE | 2018-11-22 11:41 | Endoscopy Procedure Note ---
Endoscopy Procedure Note General Indication for Procedure: gib Procedures Performed: EGD Operative Findings/Diagnosis: gastritis Specimen: yes Pt Tolerated Procedure Well: Yes Estimated Blood Loss: none Anesthesia Anesthesiologist: dannielle sevilla Anesthesia: MAC Inserted Devices Implant(s) used?: No GI Core Measures 50 yrs or older w/o bx or poly: Not Applicable 10yrs. F/U recommended: Not Applicable Juan Coronel MD Nov 22, 2018 11:41
--- NOTE | 2018-11-22 12:05 | General Progress Note ---
Assessment/Plan Problem List: (1) Hypernatremia ICD Codes: E87.0 - Hyperosmolality and hypernatremia SNOMED: 01968298 (2) Rhabdomyolysis ICD Codes: M62.82 - Rhabdomyolysis SNOMED: 997207662 (3) Sacral decubitus ulcer ICD Codes: L89.159 - Pressure ulcer of sacral region, unspecified stage SNOMED: 445371561 (4) Severe sepsis ICD Codes: A41.9 - Sepsis, unspecified organism; R65.20 - Severe sepsis without septic shock SNOMED: 98774934 (5) Septic shock ICD Codes: A41.9 - Sepsis, unspecified organism; R65.21 - Severe sepsis with septic shock SNOMED: 23375156 (6) DM (7) Anemia ICD Codes: D64.9 - Anemia, unspecified SNOMED: 773730380 (8) Prostate enlargement ICD Codes: N40.0 - Benign prostatic hyperplasia without lower urinary tract symptoms SNOMED: 885024137 (9) Chronic renal disease ICD Codes: N18.9 - Chronic kidney disease, unspecified SNOMED: 515928781 (10) Ventilator dependence ICD Codes: Z99.11 - Dependence on respirator [ventilator] status SNOMED: 436443977 (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 - Gastrostomy status SNOMED: 633324150, 553721427 (12) Malnutrition ICD Codes: E46 - Unspecified protein-calorie malnutrition SNOMED: 63301242 Status: progressing, unchanged Assessment/Plan: phimosis asked dr ramos to see him for phimosis and he did and he also dilated and fixed urethral stricture afebrile reviewed chart and labs hypernatremia improving bph uti Subjective ROS Limited/Unobtainable: Yes Allergies: Coded Allergies: TERAZOSIN (Verified Allergy, Unknown, 10/27/17) Objective Last 24 Hour Vital Signs Date Time Temp Pulse Resp B/P (MAP) Pulse Ox O2 Delivery O2 Flow Rate FiO2 11/22/18 11:13 88 28 50 11/22/18 09:17 94 25 50 11/22/18 08:00 99.2 90 23 144/92 (109) 96 11/22/18 08:00 Mechanical Ventilator 11/22/18 08:00 50 11/22/18 07:39 90 11/22/18 07:23 50 11/22/18 07:21 92 25 60 11/22/18 05:01 90 29 60 11/22/18 04:00 40 11/22/18 04:00 Mechanical Ventilator 11/22/18 04:00 98 11/22/18 04:00 98.2 97 31 151/78 (102) 96 11/22/18 03:23 89 22 60 11/22/18 00:57 94 31 60 11/22/18 00:00 97.9 99 35 162/81 (108) 93 11/22/18 00:00 Mechanical Ventilator 11/22/18 00:00 96 11/21/18 22:34 110 29 60 11/21/18 21:06 89 28 60 11/21/18 20:00 40 11/21/18 20:00 Mechanical Ventilator 11/21/18 20:00 98.2 102 40 153/88 (109) 94 11/21/18 19:34 94 11/21/18 18:46 84 30 60 11/21/18 17:00 78 28 60 11/21/18 16:00 40 11/21/18 16:00 Mechanical Ventilator 11/21/18 16:00 99.5 100 30 160/87 (111) 96 11/21/18 15:38 86 11/21/18 15:07 92 26 60 11/21/18 13:29 88 23 60 Intake and Output 11/21/18 11/22/18 18:59 06:59 Intake Total 1910 ml 607.83 ml Output Total 400 ml Balance 1910 ml 207.83 ml Intake Free Water 250 ml 100 ml IV Total 1000 ml 177.83 ml Tube Feeding 660 ml 330 ml Output Urine Total 400 ml # Bowel Movements 1 3 Laboratory Tests 11/22/18 01:00: White Blood Count 20.8#H, Red Blood Count 3.63L, Hemoglobin 9.9L, Hematocrit 31.5L, Mean Corpuscular Volume 87, Mean Corpuscular Hemoglobin 27.2, Mean Corpuscular Hemoglobin Concent 31.3L, Red Cell Distribution Width 16.1H, Platelet Count 225, Mean Platelet Volume 7.1, Neutrophils (%) (Auto) , Lymphocytes (%) (Auto) , Monocytes (%) (Auto) , Eosinophils (%) (Auto) , Basophils (%) (Auto) , Differential Total Cells Counted 100, Neutrophils % ( Manual) 78H, Lymphocytes % (Manual) 8L, Monocytes % (Manual) 12H, Eosinophils % (Manual) 2, Basophils % (Manual) 0, Band Neutrophils 0, Platelet Estimate Adequate, Platelet Morphology Normal, Prothrombin Time 10.6, Prothromb Time International Ratio 1.0, Activated Partial Thromboplast Time 25, Sodium Level 146H, Potassium Level 4.4, Chloride Level 112H, Carbon Dioxide Level 31, Anion Gap 3L, Blood Urea Nitrogen 18, Creatinine 0.9, Estimat Glomerular Filtration Rate , Glucose Level 101, Calcium Level 8.8, Phosphorus Level 3.3, Magnesium Level 1.8, Total Bilirubin 0.4, Aspartate Amino Transf (AST/SGOT) 32, Alanine Aminotransferase (ALT/SGPT) 122H, Alkaline Phosphatase 121H, C-Reactive Protein , Quantitative 6.4H, Pro-B-Type Natriuretic Peptide 4739H, Total Protein 7.0, Albumin 2.3L, Globulin 4.7, Albumin/Globulin Ratio 0.5L Height (Feet): 5 Height (Inches): 5.00 Weight (Pounds): 165 Cardiovascular: normal rate Respiratory/Chest: lungs clear Abdomen: soft Trish Matias MD Nov 22, 2018 12:05
--- NOTE | 2018-11-22 12:39 | Infectious Diseases Prog Note ---
Assessment/Plan Assessment/Plan IMPRESSION: Sepsis, Pyuria/ UTI Pneumonia BPH, ventilator-dependent respiratory failure Leukemoid reaction,resolved Acute renal failure, improving Diabetes mellitus, anemia, hypoxemic respiratory failure, dementia. 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 Urologic evaluation Subjective ROS Limited/Unobtainable: Yes Genitourinary: Reports: hematuria, other - had guidwire opening of uretheral stenosis & Turner placement Allergies: Coded Allergies: TERAZOSIN (Verified Allergy, Unknown, 10/27/17) Objective Vital Signs Last 24 Hour Vital Signs Date Time Temp Pulse Resp B/P (MAP) Pulse Ox O2 Delivery O2 Flow Rate FiO2 11/22/18 11:13 88 28 50 11/22/18 09:17 94 25 50 11/22/18 08:00 99.2 90 23 144/92 (109) 96 11/22/18 08:00 Mechanical Ventilator 11/22/18 08:00 50 11/22/18 07:39 90 11/22/18 07:23 50 11/22/18 07:21 92 25 60 11/22/18 05:01 90 29 60 11/22/18 04:00 40 11/22/18 04:00 Mechanical Ventilator 11/22/18 04:00 98 11/22/18 04:00 98.2 97 31 151/78 (102) 96 11/22/18 03:23 89 22 60 11/22/18 00:57 94 31 60 11/22/18 00:00 97.9 99 35 162/81 (108) 93 11/22/18 00:00 Mechanical Ventilator 11/22/18 00:00 96 11/21/18 22:34 110 29 60 11/21/18 21:06 89 28 60 11/21/18 20:00 40 11/21/18 20:00 Mechanical Ventilator 11/21/18 20:00 98.2 102 40 153/88 (109) 94 11/21/18 19:34 94 11/21/18 18:46 84 30 60 11/21/18 17:00 78 28 60 11/21/18 16:00 40 11/21/18 16:00 Mechanical Ventilator 11/21/18 16:00 99.5 100 30 160/87 (111) 96 11/21/18 15:38 86 11/21/18 15:07 92 26 60 11/21/18 13:29 88 23 60 Height (Feet): 5 Height (Inches): 5.00 Weight (Pounds): 165 HEENT: status post trach Respiratory/Chest: lungs clear, other - on ventilaor Cardiovascular: normal rate Abdomen: soft, non tender, other - GT feeding Genitourinary: other - Turner catheter, attachmen of pesis to scrutom Extremities: other - anasarca Neurologic/Psychiatric: unresponsiveness, aphasia Laboratory Tests Test 11/22/18 01:00 White Blood Count 20.8 K/UL (4.8-10.8) #H Red Blood Count 3.63 M/UL (4.70-6.10) L Hemoglobin 9.9 G/DL (14.2-18.0) L Hematocrit 31.5 % (42.0-52.0) L Mean Corpuscular Volume 87 FL (80-99) Mean Corpuscular Hemoglobin 27.2 PG (27.0-31.0) Mean Corpuscular Hemoglobin Concent 31.3 G/DL (32.0-36.0) L Red Cell Distribution Width 16.1 % (11.6-14.8) H Platelet Count 225 K/UL (150-450) Mean Platelet Volume 7.1 FL (6.5-10.1) Neutrophils (%) (Auto) % (45.0-75.0) Lymphocytes (%) (Auto) % (20.0-45.0) Monocytes (%) (Auto) % (1.0-10.0) Eosinophils (%) (Auto) % (0.0-3.0) Basophils (%) (Auto) % (0.0-2.0) Differential Total Cells Counted 100 Neutrophils % (Manual) 78 % (45-75) H Lymphocytes % (Manual) 8 % (20-45) L Monocytes % (Manual) 12 % (1-10) H Eosinophils % (Manual) 2 % (0-3) Basophils % (Manual) 0 % (0-2) Band Neutrophils 0 % (0-8) Platelet Estimate Adequate Platelet Morphology Normal Prothrombin Time 10.6 SEC (9.30-11.50) Prothromb Time International Ratio 1.0 (0.9-1.1) Activated Partial Thromboplast Time 25 SEC (23-33) Sodium Level 146 MMOL/L (136-145) H Potassium Level 4.4 MMOL/L (3.5-5.1) Chloride Level 112 MMOL/L (98-107) H Carbon Dioxide Level 31 MMOL/L (21-32) Anion Gap 3 mmol/L (5-15) L Blood Urea Nitrogen 18 mg/dL (7-18) Creatinine 0.9 MG/DL (0.55-1.30) Estimat Glomerular Filtration Rate mL/min (>60) Glucose Level 101 MG/DL (74-106) Calcium Level 8.8 MG/DL (8.5-10.1) Phosphorus Level 3.3 MG/DL (2.5-4.9) Magnesium Level 1.8 MG/DL (1.8-2.4) Total Bilirubin 0.4 MG/DL (0.2-1.0) Aspartate Amino Transf (AST/SGOT) 32 U/L (15-37) Alanine Aminotransferase (ALT/SGPT) 122 U/L (12-78) H Alkaline Phosphatase 121 U/L (46-116) H C-Reactive Protein, Quantitative 6.4 mg/dL (0.00-0.90) H Pro-B-Type Natriuretic Peptide 4739 pg/mL (0-125) H Total Protein 7.0 G/DL (6.4-8.2) Albumin 2.3 G/DL (3.4-5.0) L Globulin 4.7 g/dL Albumin/Globulin Ratio 0.5 (1.0-2.7) L Current Medications Medications (Trade) Dose Ordered Sig/Ruthie Route PRN Reason Start Time Stop Time Status Last Admin Dose Admin Acetaminophen (Tylenol) 650 mg Q6H PRN NG Mild Pain/Temp > 100.5 11/18/18 17:45 12/15/18 05:44 Bisacodyl (Dulcolax) 10 mg DAILYPRN PRN RECTAL Constipation 11/18/18 16:30 12/18/18 16:29 Chlorhexidine Gluconate (Rachael-Hex 2%) 1 applic DAILY@1999 TOPIC 11/18/18 20:00 12/15/18 19:59 11/21/18 20:06 Dextrose (Dextrose 50%) 25 ml Q30M PRN IV Hypoglycemia 11/18/18 16:45 12/15/18 05:44 Dextrose (Dextrose 50%) 50 ml Q30M PRN IV Hypoglycemia 11/18/18 16:45 12/15/18 05:44 Dextrose/Sodium Chloride 1,000 ml @ 50 mls/hr Q20H IV 11/21/18 13:09 12/21/18 13:08 11/22/18 09:53 Doxycycline Hyclate 100 mg/ Dextrose 110 ml @ 110 mls/hr Q12HR IV 11/18/18 21:00 11/26/18 20:59 11/22/18 08:12 Insulin Aspart (NovoLOG) BEFORE MEALS AND HS SUBQ 11/18/18 21:00 12/15/18 06:29 11/21/18 21:01 Olanzapine (ZyPREXA Zydis) 7.5 mg DAILY GT 11/19/18 09:00 12/15/18 08:59 11/21/18 09:52 Pantoprazole (Protonix) 40 mg EVERY 12 HOURS IVP 11/18/18 21:00 12/15/18 08:59 11/22/18 09:51 Piperacillin Sod/ Tazobactam Sod 3.375 gm/Sodium Chloride 110 ml @ 27.5 mls/hr Q8H IVPB 11/18/18 20:00 11/26/18 19:59 11/22/18 03:32 Quetiapine Fumarate (SEROquel) 50 mg DAILY GT 11/19/18 09:00 12/15/18 08:59 11/21/18 09:52 Tamsulosin HCl (Flomax) 0.4 mg BEDTIME ORAL 11/18/18 21:00 12/15/18 20:59 11/21/18 20:59 Anam Cruz MD Nov 22, 2018 12:39
[2018-11-22] MEDS: ZyPREXA Zydis 5mg tab GT SCH (12:41)
--- NOTE | 2018-11-22 13:06 | Surgery Progress Note ---
Surgery Progress Note Subjective Additional Comments crabtree placed by urology after dilating stricture labs noted exam stable crabtree functional Objective Last 24 Hour Vital Signs Date Time Temp Pulse Resp B/P (MAP) Pulse Ox O2 Delivery O2 Flow Rate FiO2 11/22/18 11:13 88 28 50 11/22/18 09:17 94 25 50 11/22/18 08:00 99.2 90 23 144/92 (109) 96 11/22/18 08:00 Mechanical Ventilator 11/22/18 08:00 50 11/22/18 07:39 90 11/22/18 07:23 50 11/22/18 07:21 92 25 60 11/22/18 05:01 90 29 60 11/22/18 04:00 40 11/22/18 04:00 Mechanical Ventilator 11/22/18 04:00 98 11/22/18 04:00 98.2 97 31 151/78 (102) 96 11/22/18 03:23 89 22 60 11/22/18 00:57 94 31 60 11/22/18 00:00 97.9 99 35 162/81 (108) 93 11/22/18 00:00 Mechanical Ventilator 11/22/18 00:00 96 11/21/18 22:34 110 29 60 11/21/18 21:06 89 28 60 11/21/18 20:00 40 11/21/18 20:00 Mechanical Ventilator 11/21/18 20:00 98.2 102 40 153/88 (109) 94 11/21/18 19:34 94 11/21/18 18:46 84 30 60 11/21/18 17:00 78 28 60 11/21/18 16:00 40 11/21/18 16:00 Mechanical Ventilator 11/21/18 16:00 99.5 100 30 160/87 (111) 96 11/21/18 15:38 86 11/21/18 15:07 92 26 60 11/21/18 13:29 88 23 60 I&O Intake and Output 11/21/18 11/22/18 18:59 06:59 Intake Total 1910 ml 607.83 ml Output Total 400 ml Balance 1910 ml 207.83 ml Intake Free Water 250 ml 100 ml IV Total 1000 ml 177.83 ml Tube Feeding 660 ml 330 ml Output Urine Total 400 ml # Bowel Movements 1 3 Dressing: dry Wound: clean Cardiovascular: RSR Respiratory: clear Abdomen: soft, non-tender, present bowel sounds Extremities: no cyanosis, other Laboratory Tests Test 11/22/18 01:00 White Blood Count 20.8 K/UL (4.8-10.8) #H Red Blood Count 3.63 M/UL (4.70-6.10) L Hemoglobin 9.9 G/DL (14.2-18.0) L Hematocrit 31.5 % (42.0-52.0) L Mean Corpuscular Volume 87 FL (80-99) Mean Corpuscular Hemoglobin 27.2 PG (27.0-31.0) Mean Corpuscular Hemoglobin Concent 31.3 G/DL (32.0-36.0) L Red Cell Distribution Width 16.1 % (11.6-14.8) H Platelet Count 225 K/UL (150-450) Mean Platelet Volume 7.1 FL (6.5-10.1) Neutrophils (%) (Auto) % (45.0-75.0) Lymphocytes (%) (Auto) % (20.0-45.0) Monocytes (%) (Auto) % (1.0-10.0) Eosinophils (%) (Auto) % (0.0-3.0) Basophils (%) (Auto) % (0.0-2.0) Differential Total Cells Counted 100 Neutrophils % (Manual) 78 % (45-75) H Lymphocytes % (Manual) 8 % (20-45) L Monocytes % (Manual) 12 % (1-10) H Eosinophils % (Manual) 2 % (0-3) Basophils % (Manual) 0 % (0-2) Band Neutrophils 0 % (0-8) Platelet Estimate Adequate Platelet Morphology Normal Prothrombin Time 10.6 SEC (9.30-11.50) Prothromb Time International Ratio 1.0 (0.9-1.1) Activated Partial Thromboplast Time 25 SEC (23-33) Sodium Level 146 MMOL/L (136-145) H Potassium Level 4.4 MMOL/L (3.5-5.1) Chloride Level 112 MMOL/L (98-107) H Carbon Dioxide Level 31 MMOL/L (21-32) Anion Gap 3 mmol/L (5-15) L Blood Urea Nitrogen 18 mg/dL (7-18) Creatinine 0.9 MG/DL (0.55-1.30) Estimat Glomerular Filtration Rate mL/min (>60) Glucose Level 101 MG/DL (74-106) Calcium Level 8.8 MG/DL (8.5-10.1) Phosphorus Level 3.3 MG/DL (2.5-4.9) Magnesium Level 1.8 MG/DL (1.8-2.4) Total Bilirubin 0.4 MG/DL (0.2-1.0) Aspartate Amino Transf (AST/SGOT) 32 U/L (15-37) Alanine Aminotransferase (ALT/SGPT) 122 U/L (12-78) H Alkaline Phosphatase 121 U/L (46-116) H C-Reactive Protein, Quantitative 6.4 mg/dL (0.00-0.90) H Pro-B-Type Natriuretic Peptide 4739 pg/mL (0-125) H Total Protein 7.0 G/DL (6.4-8.2) Albumin 2.3 G/DL (3.4-5.0) L Globulin 4.7 g/dL Albumin/Globulin Ratio 0.5 (1.0-2.7) L Plan Problems: (1) Severe sepsis Assessment & Plan: leukocytosis, anemia, lactic acidosis, fevers IV Abx imaging noted and reviewed US with no stones or dilated ducts elevated lft's likely due to liver disease exam as below cont abx trend labs leave crabtree for a few weeks thank you will follow with recs (2) Malnutrition Assessment & Plan: DAILY ESTIMATED NEEDS: Needs based on Critical care, sepsis 71.8 kg 22-30 kcals/kg 6187-7868 total kcals 1.2-2 g protein/kg 86- 144 g total protein 25-30 mL/kg 1795- 2154 total fluid mLs NUTRITION DIAGNOSIS: * Swallowing difficulty R/T respiratory status and dysphagia as evidenced by pt is vent dep, on TF. * Altered nutrition related lab values r/t sepsis, clinical status, h/o Diabetes as evidenced by critically elev WBC (47.2), low Hgb (6.6), elev BNP, low BP (96/41), BG 191, POC 179. CURRENT TF: Jevity 1.2 @ 70mL/hr x 20hr - NOW NPO ENTERAL NUTRITION RECOMMENDATIONS: Vital 1.2 @55mL/hr x24 hrs to provide 1320mL, 1584kcal, 99g pro, 1071mL free H2O * As medically appropriate to feed, rec TF change to VITAL 1.2 for critical care. * Start Vital 1,2, @25mL, advance as tolerated 10ml/hr q4-6 hrs to goal * HOB over 30 degrees/ water flush per MD --- Low Hgb (6.6), NPO per GI-> rec trophic feeds when appropriate if pt remains hypotensive. ADDITIONAL RECOMMENDATIONS: * Per SNF: HT 68 inches WT 158 lbs + Daily calibrated bed scale wts * Change TF to Vital 1.2, as medically able to feed * Monitor lytes (replete as needed) * F/up w/ WC eval . (3) Sacral decubitus ulcer Assessment & Plan: Pt presented on admission with contractures and multiple pressure injuries. Partially opened DTPI L buttocks. Base of wound moist - viable with surrounding dark and fluctuant borders.(L)1.2cm x (W)1cm. Small amt of sanguineous exudate noted. No odor noted. Hyperpigmentation noted to sacrum. Historical scar from previous wound noted to L trochanter. Penile head retracted within foreskin and small wound noted within folds of foreskin. Wound is moist and viable. No odor or exudate noted. No erythema noted periwound. Resolving pressure injury plantar R heel. Base of wound 50% epithelialized, 50% moist and viable.(L)5.5cm x (W)6.5cm. Resolving pressure injury lateral L heel. Base of wound is moist and viable with surrounding hyperpigmentation.(L)0.6cm x (W)0.5cm. Scattered loose, dry brown skin noted to medial and posterior L heel. Tx.Plan: Apply Moisture Barrier Paste to L buttocks and sacrum. Cover with Optifoam drsg. Change every 3 days and prn. Cleanse head of penis with soap and water. Apply Bacitracin oint Twice Daily. Apply Betadine to R and L heel wounds. Cover each heel with Optifoam drsg. Daily and prn. APM/ABDELRAHMAN Mattress overlay. Reposition at least every 2hours and prn. Off-load heels with pillow. Don Carvalho Nov 22, 2018 13:06
--- NOTE | 2018-11-22 13:30 | Anethesia Preoperative Eval ---
Anesthesia Pre-op PMH/ROS General Date of Evaluation: Nov 22, 2018 Time of Evaluation: 11:11 Anesthesiologist: jenelle ASA Score: ASA 4 Mallampati Score Class I : Soft palate, uvula, fauces, pillars visible Class II: Soft palate, uvula, fauces visible Class III: Soft palate, base of uvula visible Class IV: Only hard plate visible Mallampati Classification: Class II Surgeon: sarah Diagnosis: gi bleed Surgical Procedure: egd Anesthesia History: none Social History: alcohol use Family History: no anesthesia problems Allergies: Coded Allergies: TERAZOSIN (Verified Allergy, Unknown, 10/27/17) Medications: see eMAR Patient NPO?: Yes Past Medical History Cardiovascular: Reports: HTN, other - hypercholesterolemia Pulmonary: Reports: other - tracheostomy, ventilator dependent, tb Gastrointestinal/Genitourinary: Reports: GERD, other - uti Neurologic/Psychiatric: Reports: dementia, other - dysphasia, muscle weakness Endocrine: Reports: DM HEENT: Reports: cataract (L), cataract (R) Anesthesia Pre-op Phys. Exam Physician Exam Last Vital Signs Date Time Temp Pulse Resp B/P (MAP) Pulse Ox O2 Delivery O2 Flow Rate FiO2 11/22/18 12:00 99.0 92 22 142/90 (107) 98 11/22/18 11:13 50 11/22/18 08:00 Mechanical Ventilator Constitutional: NAD Neurologic: other - muscle weakness Cardiovascular: RRR Respiratory: other - tracheostomy Airway Exam Mallampati Score: Class II MO: limited Neck: flexible TMD: 2fb ROM: limited Anesthesia Pre-op A/P Labs Hematology Test 11/22/18 01:00 White Blood Count 20.8 K/UL (4.8-10.8) #H Red Blood Count 3.63 M/UL (4.70-6.10) L Hemoglobin 9.9 G/DL (14.2-18.0) L Hematocrit 31.5 % (42.0-52.0) L Mean Corpuscular Volume 87 FL (80-99) Mean Corpuscular Hemoglobin 27.2 PG (27.0-31.0) Mean Corpuscular Hemoglobin Concent 31.3 G/DL (32.0-36.0) L Red Cell Distribution Width 16.1 % (11.6-14.8) H Platelet Count 225 K/UL (150-450) Mean Platelet Volume 7.1 FL (6.5-10.1) Neutrophils (%) (Auto) % (45.0-75.0) Lymphocytes (%) (Auto) % (20.0-45.0) Monocytes (%) (Auto) % (1.0-10.0) Eosinophils (%) (Auto) % (0.0-3.0) Basophils (%) (Auto) % (0.0-2.0) Differential Total Cells Counted 100 Neutrophils % (Manual) 78 % (45-75) H Lymphocytes % (Manual) 8 % (20-45) L Monocytes % (Manual) 12 % (1-10) H Eosinophils % (Manual) 2 % (0-3) Basophils % (Manual) 0 % (0-2) Band Neutrophils 0 % (0-8) Platelet Estimate Adequate Platelet Morphology Normal Coagulation Test 11/22/18 01:00 Prothrombin Time 10.6 SEC (9.30-11.50) Prothromb Time International Ratio 1.0 (0.9-1.1) Activated Partial Thromboplast Time 25 SEC (23-33) Chemistry Test 11/22/18 01:00 Sodium Level 146 MMOL/L (136-145) H Potassium Level 4.4 MMOL/L (3.5-5.1) Chloride Level 112 MMOL/L (98-107) H Carbon Dioxide Level 31 MMOL/L (21-32) Anion Gap 3 mmol/L (5-15) L Blood Urea Nitrogen 18 mg/dL (7-18) Creatinine 0.9 MG/DL (0.55-1.30) Estimat Glomerular Filtration Rate mL/min (>60) Glucose Level 101 MG/DL (74-106) Calcium Level 8.8 MG/DL (8.5-10.1) Phosphorus Level 3.3 MG/DL (2.5-4.9) Magnesium Level 1.8 MG/DL (1.8-2.4) Total Bilirubin 0.4 MG/DL (0.2-1.0) Aspartate Amino Transf (AST/SGOT) 32 U/L (15-37) Alanine Aminotransferase (ALT/SGPT) 122 U/L (12-78) H Alkaline Phosphatase 121 U/L (46-116) H C-Reactive Protein, Quantitative 6.4 mg/dL (0.00-0.90) H Pro-B-Type Natriuretic Peptide 4739 pg/mL (0-125) H Total Protein 7.0 G/DL (6.4-8.2) Albumin 2.3 G/DL (3.4-5.0) L Globulin 4.7 g/dL Albumin/Globulin Ratio 0.5 (1.0-2.7) L Risk Assessment & Plan Assessment: [email or web address] Plan: mac Status Change Before Surgery: No Pre-Antibiotics Drug: Meagan Quinones MD Nov 22, 2018 13:30
--- NOTE | 2018-11-22 13:31 | 48 Hour Post Anesthesia Eval ---
Post Anesthesia Evaluation Procedure: egd w/bx Date of Evaluation: Nov 22, 2018 Time of Evaluation: 11:54 Blood Pressure Systolic: 142 0: 90 Pulse Rate: 92 Respiratory Rate: 21 Temperature (Fahrenheit): 99.0 O2 Sat by Pulse Oximetry: 98 Airway: patent Nausea: No Vomiting: No Pain Intensity: 0 Hydration Status: adequate Cardiopulmonary Status: stable Mental Status/LOC: patient returned to baseline Post-Anesthesia Complications: none Follow-up care needed: N/A Meagan Tate MD Nov 22, 2018 13:31
--- NOTE | 2018-11-22 13:31 | Immediate Post-Op Evaluation ---
Immediate Post-Op Evalulation Immediate Post-Op Evalulation Procedure: egd w/bx Date of Evaluation: Nov 22, 2018 Time of Evaluation: 11:52 Blood Products: none Estimated Blood Loss: negligible Blood Pressure Systolic: 132 Blood Pressure Diastolic: 90 Pulse Rate: 92 Respiratory Rate: 22 O2 Sat by Pulse Oximetry: 98 Temperature (Fahrenheit): 99.0 Pain Score (1-10): 0 Nausea: No Vomiting: No Complications none Patient Status: awake, reacts, patent, ventilated Hydration Status: adequate Drug: Meagan Quinones MD Nov 22, 2018 13:31
--- NOTE | 2018-11-22 14:49 | Hematology/Onc Progress Note ---
Assessment/Plan Assessment/Plan ASSESSMENT AND RECOMMENDATIONS # Leukocytosis. Likely related to underlying infection with sepsis and elevated severely on admission --> Imaging has been reviewed. Shows cxr left lung inil/v edema --> Blood cs and urine cx are reviewed --> Has been started on abx, empiric tx --> PERIPHERAL SMEAR SHOWS ATYPICAL LYMPHOCYTES --> Flow cytometry ordered with pathologist --> wbc 52k-->47k-->29k->16-->12-->14->12-->12-->21 --> picc repositioned # Anemia of chronic disease, due to underlying chronic medical issues, multifactorial. --> Anemia w/u has been ordered --> with hyperferritinemia --> No evidence of hemolysis noted, peripheral smear has been reviewed --> Hgb goal >7. Transfuse as needed --> hgb trend 7.5-->6.6->9.1-->9.2-->8.9-->9.9 --> 2 units transfuse on 11/15 --> will need to follow as outpatient and may need chelation therapy --> GI workup once more stable # Failure to thrive (FTT) - decreased bmi and low protein --> cea 4.3 --> will obtain q3 day caloric counts --> consider mirtazapine as appetite stimulant --> GI consult on a prn basis, as needed for endosc # Sepsis. improved # PEG. # Malnutrition. 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 Greatly appreciate consultation. Subjective Constitutional: Denies: no symptoms, chills, fever, malaise, weakness, other HEENT: Denies: no symptoms, eye pain, blurred vision, tearing, double vision, ear pain, ear discharge, nose pain, nose congestion, throat pain, throat swelling, mouth pain, mouth swelling, other Cardiovascular: Denies: no symptoms, chest pain, edema, irregular heart rate, lightheadedness, palpitations, syncope, other Respiratory: Denies: no symptoms, cough, shortness of breath, SOB with excertion, SOB at rest, sputum, wheezing, other Gastrointestinal/Abdominal: Denies: no symptoms, abdomen distended, abdominal pain, black stools, tarry stools, blood in stool, constipated, diarrhea, difficulty swallowing, nausea, poor appetite, poor fluid intake, rectal bleeding , vomiting, other Neurologic/Psychiatric: Denies: no symptoms, anxiety, depressed, emotional problems, headache, numbness, paresthesia, pre-existing deficit, seizure, tingling, tremors, weakness, other Allergies: Coded Allergies: TERAZOSIN (Verified Allergy, Unknown, 10/27/17) Subjective 11/16: in the icu, is off pressors, doing better, no bleeding 11/18: no bleeding, remains on doxy and zosyn, no bleeding reported 11/19: out of the icu, on vent/trach, no major changes, dw rn 11/20: no bleeding noted, no night sweats, meds reviewed, no f/c 11/21: on vent, obtunded, with gt ongong, with picc, no bleeding 10.17: stricture advanced through with uro, with crabtree, labs noted Objective Objective Current Medications Medications (Trade) Dose Ordered Sig/Ruthie Route PRN Reason Start Time Stop Time Status Last Admin Dose Admin Acetaminophen (Tylenol) 650 mg Q6H PRN NG Mild Pain/Temp > 100.5 11/18/18 17:45 12/15/18 05:44 Bisacodyl (Dulcolax) 10 mg DAILYPRN PRN RECTAL Constipation 11/18/18 16:30 12/18/18 16:29 Chlorhexidine Gluconate (Rachael-Hex 2%) 1 applic DAILY@2000 TOPIC 11/18/18 20:00 12/15/18 19:59 11/21/18 20:06 Dextrose (Dextrose 50%) 25 ml Q30M PRN IV Hypoglycemia 11/18/18 16:45 12/15/18 05:44 Dextrose (Dextrose 50%) 50 ml Q30M PRN IV Hypoglycemia 11/18/18 16:45 12/15/18 05:44 Dextrose/Sodium Chloride 1,000 ml @ 50 mls/hr Q20H IV 11/21/18 13:09 12/21/18 13:08 11/22/18 09:53 Doxycycline Hyclate 100 mg/ Dextrose 110 ml @ 110 mls/hr Q12HR IV 11/18/18 21:00 11/26/18 20:59 11/22/18 08:12 Insulin Aspart (NovoLOG) BEFORE MEALS AND HS SUBQ 11/18/18 21:00 12/15/18 06:29 11/21/18 21:01 Olanzapine (ZyPREXA Zydis) 7.5 mg DAILY GT 11/19/18 09:00 12/15/18 08:59 11/22/18 12:41 Pantoprazole (Protonix) 40 mg EVERY 12 HOURS IVP 11/18/18 21:00 12/15/18 08:59 11/22/18 09:51 Piperacillin Sod/ Tazobactam Sod 3.375 gm/Sodium Chloride 110 ml @ 27.5 mls/hr Q8H IVPB 11/18/18 20:00 11/26/18 19:59 11/22/18 12:42 Quetiapine Fumarate (SEROquel) 50 mg DAILY GT 11/19/18 09:00 12/15/18 08:59 11/22/18 12:42 Tamsulosin HCl (Flomax) 0.4 mg BEDTIME ORAL 11/18/18 21:00 12/15/18 20:59 11/21/18 20:59 Last 24 Hour Vital Signs Date Time Temp Pulse Resp B/P (MAP) Pulse Ox O2 Delivery O2 Flow Rate FiO2 11/22/18 13:13 95 30 50 11/22/18 12:00 99.0 92 22 142/90 (107) 98 11/22/18 12:00 50 11/22/18 11:40 91 11/22/18 11:13 88 28 50 11/22/18 09:17 94 25 50 11/22/18 08:00 99.2 90 23 144/92 (109) 96 11/22/18 08:00 Mechanical Ventilator 11/22/18 08:00 50 11/22/18 07:39 90 11/22/18 07:23 50 11/22/18 07:21 92 25 60 11/22/18 05:01 90 29 60 11/22/18 04:00 40 11/22/18 04:00 Mechanical Ventilator 11/22/18 04:00 98 11/22/18 04:00 98.2 97 31 151/78 (102) 96 11/22/18 03:23 89 22 60 11/22/18 00:57 94 31 60 11/22/18 00:00 97.9 99 35 162/81 (108) 93 11/22/18 00:00 Mechanical Ventilator 11/22/18 00:00 96 11/21/18 22:34 110 29 60 11/21/18 21:06 89 28 60 11/21/18 20:00 40 11/21/18 20:00 Mechanical Ventilator 11/21/18 20:00 98.2 102 40 153/88 (109) 94 11/21/18 19:34 94 11/21/18 18:46 84 30 60 11/21/18 17:00 78 28 60 11/21/18 16:00 40 11/21/18 16:00 Mechanical Ventilator 11/21/18 16:00 99.5 100 30 160/87 (111) 96 11/21/18 15:38 86 11/21/18 15:07 92 26 60 11/21/18 13:29 88 23 60 11/21/18 12:00 40 11/21/18 12:00 Mechanical Ventilator 11/21/18 12:00 99.0 98 28 167/97 (120) 99 11/21/18 11:33 95 11/21/18 10:49 91 24 60 11/21/18 09:29 97 28 60 11/21/18 08:00 Mechanical Ventilator 11/21/18 08:00 40 11/21/18 08:00 99.2 83 34 146/73 (97) 100 11/21/18 07:36 83 11/21/18 07:08 89 28 60 11/21/18 05:35 78 34 60 11/21/18 04:00 Mechanical Ventilator 11/21/18 04:00 99.0 104 30 144/73 (96) 95 11/21/18 04:00 104 11/21/18 04:00 40 11/21/18 03:39 83 30 60 11/21/18 01:12 79 33 60 11/21/18 00:00 Mechanical Ventilator 11/21/18 00:00 98.6 84 31 144/88 (106) 94 11/20/18 23:23 88 11/20/18 23:14 84 31 60 11/20/18 21:42 72 28 60 11/20/18 20:00 40 11/20/18 20:00 100 11/20/18 20:00 Mechanical Ventilator 11/20/18 20:00 98.5 97 34 164/84 (110) 93 11/20/18 19:27 69 31 60 11/20/18 17:20 88 33 60 11/20/18 16:00 97.3 89 33 145/73 (97) 95 11/20/18 16:00 Mechanical Ventilator 11/20/18 16:00 40 11/20/18 15:33 85 11/20/18 15:29 80 26 60 Intake and Output 11/21/18 11/22/18 18:59 06:59 Intake Total 1910 ml 607.83 ml Output Total 400 ml Balance 1910 ml 207.83 ml Intake Free Water 250 ml 100 ml IV Total 1000 ml 177.83 ml Tube Feeding 660 ml 330 ml Output Urine Total 400 ml # Bowel Movements 1 3 Labs Test 11/20/18 04:00 11/21/18 03:00 11/22/18 01:00 White Blood Count 12.6 K/UL (4.8-10.8) 12.7 K/UL (4.8-10.8) 20.8 K/UL (4.8-10.8) Red Blood Count 3.54 M/UL (4.70-6.10) 3.33 M/UL (4.70-6.10) 3.63 M/UL (4.70-6.10) Hemoglobin 9.7 G/DL (14.2-18.0) 9.0 G/DL (14.2-18.0) 9.9 G/DL (14.2-18.0) Hematocrit 30.5 % (42.0-52.0) 28.8 % (42.0-52.0) 31.5 % (42.0-52.0) Mean Corpuscular Volume 86 FL (80-99) 87 FL (80-99) 87 FL (80-99) Mean Corpuscular Hemoglobin 27.5 PG (27.0-31.0) 27.0 PG (27.0-31.0) 27.2 PG (27.0-31.0) Mean Corpuscular Hemoglobin Concent 32.0 G/DL (32.0-36.0) 31.2 G/DL (32.0-36.0) 31.3 G/DL (32.0-36.0) Red Cell Distribution Width 15.4 % (11.6-14.8) 15.6 % (11.6-14.8) 16.1 % (11.6-14.8) Platelet Count 197 K/UL (150-450) 218 K/UL (150-450) 225 K/UL (150-450) Mean Platelet Volume 7.3 FL (6.5-10.1) 7.5 FL (6.5-10.1) 7.1 FL (6.5-10.1) Neutrophils (%) (Auto) 76.8 % (45.0-75.0) 79.1 % (45.0-75.0) % (45.0-75.0) Lymphocytes (%) (Auto) 10.9 % (20.0-45.0) 9.6 % (20.0-45.0) % (20.0-45.0) Monocytes (%) (Auto) 9.5 % (1.0-10.0) 8.1 % (1.0-10.0) % (1.0-10.0) Eosinophils (%) (Auto) 2.0 % (0.0-3.0) 2.5 % (0.0-3.0) % (0.0-3.0) Basophils (%) (Auto) 0.7 % (0.0-2.0) 0.7 % (0.0-2.0) % (0.0-2.0) Sodium Level 147 MMOL/L (136-145) 147 MMOL/L (136-145) 146 MMOL/L (136-145) Potassium Level 4.2 MMOL/L (3.5-5.1) 4.4 MMOL/L (3.5-5.1) 4.4 MMOL/L (3.5-5.1) Chloride Level 115 MMOL/L (98-107) 114 MMOL/L (98-107) 112 MMOL/L (98-107) Carbon Dioxide Level 29 MMOL/L (21-32) 29 MMOL/L (21-32) 31 MMOL/L (21-32) Anion Gap 3 mmol/L (5-15) 4 mmol/L (5-15) 3 mmol/L (5-15) Blood Urea Nitrogen 15 mg/dL (7-18) 15 mg/dL (7-18) 18 mg/dL (7-18) Creatinine 0.9 MG/DL (0.55-1.30) 0.8 MG/DL (0.55-1.30) 0.9 MG/DL (0.55-1.30) Estimat Glomerular Filtration Rate mL/min (>60) mL/min (>60) mL/min (>60) Glucose Level 80 MG/DL (74-106) 104 MG/DL (74-106) 101 MG/DL (74-106) Calcium Level 8.4 MG/DL (8.5-10.1) 8.6 MG/DL (8.5-10.1) 8.8 MG/DL (8.5-10.1) Phosphorus Level 3.0 MG/DL (2.5-4.9) 3.3 MG/DL (2.5-4.9) Magnesium Level 1.7 MG/DL (1.8-2.4) 1.8 MG/DL (1.8-2.4) Differential Total Cells Counted 100 Neutrophils % (Manual) 78 % (45-75) Lymphocytes % (Manual) 8 % (20-45) Monocytes % (Manual) 12 % (1-10) Eosinophils % (Manual) 2 % (0-3) Basophils % (Manual) 0 % (0-2) Band Neutrophils 0 % (0-8) Platelet Estimate Adequate Platelet Morphology Normal Prothrombin Time 10.6 SEC (9.30-11.50) Prothromb Time International Ratio 1.0 (0.9-1.1) Activated Partial Thromboplast Time 25 SEC (23-33) Total Bilirubin 0.4 MG/DL (0.2-1.0) Aspartate Amino Transf (AST/SGOT) 32 U/L (15-37) Alanine Aminotransferase (ALT/SGPT) 122 U/L (12-78) Alkaline Phosphatase 121 U/L (46-116) C-Reactive Protein, Quantitative 6.4 mg/dL (0.00-0.90) Pro-B-Type Natriuretic Peptide 4739 pg/mL (0-125) Total Protein 7.0 G/DL (6.4-8.2) Albumin 2.3 G/DL (3.4-5.0) Globulin 4.7 g/dL Albumin/Globulin Ratio 0.5 (1.0-2.7) Height (Feet): 5 Height (Inches): 5.00 Weight (Pounds): 165 Objective Vitals: reviewed Gen: no apparent distress Head: normocephalic EENT: normal ENT inspection Respiratory: other - intubated vent+ Cardiovascular: normal rate Gastrointestinal: gt - c/d/i Rectal: deferred Genitourinary: no CVA tenderness Skin: normal color +++ decub : ++ Beny Fields MD Nov 22, 2018 14:49
--- NOTE | 2018-11-22 15:47 | Nephrology Progress Note ---
Assessment/Plan Problem List: (1) Septic shock Assessment: WBCs rising (2) Ventilator dependence (3) Renal failure (ARF), acute on chronic (4) Prostate enlargement (5) Anemia Assessment Septic Shock Acute renal failure CKD underlying BPH Sever Anemia Chronic trach-Vent DM HypoAlbuminemia HyperNatremia Dementia Troponin elevation Plan labs reviewed- mag IV as needed Fluid challenge avoid Nephrotoxics transfuse crabtree monitor urine out put and renal parameters per orders Subjective ROS Limited/Unobtainable: Yes Objective Objective Last 24 Hour Vital Signs Date Time Temp Pulse Resp B/P (MAP) Pulse Ox O2 Delivery O2 Flow Rate FiO2 11/22/18 13:13 95 30 50 11/22/18 12:00 99.0 92 22 142/90 (107) 98 11/22/18 12:00 Mechanical Ventilator 11/22/18 12:00 50 11/22/18 11:40 91 11/22/18 11:13 88 28 50 11/22/18 09:17 94 25 50 11/22/18 08:00 99.2 90 23 144/92 (109) 96 11/22/18 08:00 Mechanical Ventilator 11/22/18 08:00 50 11/22/18 07:39 90 11/22/18 07:23 50 11/22/18 07:21 92 25 60 11/22/18 05:01 90 29 60 11/22/18 04:00 40 11/22/18 04:00 Mechanical Ventilator 11/22/18 04:00 98 11/22/18 04:00 98.2 97 31 151/78 (102) 96 11/22/18 03:23 89 22 60 11/22/18 00:57 94 31 60 11/22/18 00:00 97.9 99 35 162/81 (108) 93 11/22/18 00:00 Mechanical Ventilator 11/22/18 00:00 96 11/21/18 22:34 110 29 60 11/21/18 21:06 89 28 60 11/21/18 20:00 40 11/21/18 20:00 Mechanical Ventilator 11/21/18 20:00 98.2 102 40 153/88 (109) 94 11/21/18 19:34 94 11/21/18 18:46 84 30 60 11/21/18 17:00 78 28 60 11/21/18 16:00 40 11/21/18 16:00 Mechanical Ventilator 11/21/18 16:00 99.5 100 30 160/87 (111) 96 Intake and Output 11/21/18 11/22/18 19:00 07:00 Intake Total 1810 ml 580.33 ml Output Total 400 ml Balance 1810 ml 180.33 ml Intake Free Water 250 ml 100 ml IV Total 900 ml 205.33 ml Tube Feeding 660 ml 275 ml Output Urine Total 400 ml # Bowel Movements 2 2 Laboratory Tests 11/22/18 01:00: White Blood Count 20.8#H, Red Blood Count 3.63L, Hemoglobin 9.9L, Hematocrit 31.5L, Mean Corpuscular Volume 87, Mean Corpuscular Hemoglobin 27.2, Mean Corpuscular Hemoglobin Concent 31.3L, Red Cell Distribution Width 16.1H, Platelet Count 225, Mean Platelet Volume 7.1, Neutrophils (%) (Auto) , Lymphocytes (%) (Auto) , Monocytes (%) (Auto) , Eosinophils (%) (Auto) , Basophils (%) (Auto) , Differential Total Cells Counted 100, Neutrophils % ( Manual) 78H, Lymphocytes % (Manual) 8L, Monocytes % (Manual) 12H, Eosinophils % (Manual) 2, Basophils % (Manual) 0, Band Neutrophils 0, Platelet Estimate Adequate, Platelet Morphology Normal, Prothrombin Time 10.6, Prothromb Time International Ratio 1.0, Activated Partial Thromboplast Time 25, Sodium Level 146H, Potassium Level 4.4, Chloride Level 112H, Carbon Dioxide Level 31, Anion Gap 3L, Blood Urea Nitrogen 18, Creatinine 0.9, Estimat Glomerular Filtration Rate , Glucose Level 101, Calcium Level 8.8, Phosphorus Level 3.3, Magnesium Level 1.8, Total Bilirubin 0.4, Aspartate Amino Transf (AST/SGOT) 32, Alanine Aminotransferase (ALT/SGPT) 122H, Alkaline Phosphatase 121H, C-Reactive Protein , Quantitative 6.4H, Pro-B-Type Natriuretic Peptide 4739H, Total Protein 7.0, Albumin 2.3L, Globulin 4.7, Albumin/Globulin Ratio 0.5L Height (Feet): 5 Height (Inches): 5.00 Weight (Pounds): 165 General Appearance: no apparent distress EENT: other - trach Cardiovascular: tachycardia Respiratory/Chest: decreased breath sounds Abdomen: distended Objective no change Fouladian,Randolph MD Nov 22, 2018 15:47
[2018-11-22] MEDS ORDERED: D5 1/2NS 1000ml IV ONE (16:26)
[2018-11-22] MEDS ORDERED: Tubing IV Secondary IV ONE (16:26)
[2018-11-22] MEDS ORDERED: NS 275ml ONE (16:26)
--- NOTE | 2018-11-22 17:15 | Procedure Note ---
DATE OF PROCEDURE: 11/22/2018 SURGEON: Juan Coronel M.D. REFERRING PHYSICIAN: Trish Matias M.D. PROCEDURE: Upper endoscopy with biopsy. ANESTHESIA: Per Dr. Krishna. INSTRUMENT: Olympus adult flexible upper endoscope. INDICATION: Upper GI bleeding. REASON FOR PROCEDURE: The procedure, risks, benefits, and possible consequences, including hemorrhage, aspiration, perforation and infection, and alternative treatments, were explained to the patient/legal guardian by Dr. Juan Coronel and the patient/legal guardian understood and accepted these risks. PROCEDURE IN DETAIL: After informed consent was obtained and the patient was adequately sedated, Olympus upper endoscope was advanced from mouth into the second portion of the duodenum and retroflexion was performed in the stomach. The patient has a G-tube in place without any obvious G-tube cellulitis or ulceration causing bleeding. No blood or blood polyp was seen in the stomach nor in the duodenum. No active ulceration or bleeding was seen. The patient has diffuse gastritis. Random biopsy from antrum was obtained to rule out H. pylori infection. The rest of upper endoscopic examination was within normal limits. The patient tolerated the procedure very well without any complication. SUMMARY OF FINDINGS: Gastritis, otherwise normal upper endoscopic examination. RECOMMENDATIONS: 1. Resume G-tube feeding. 2. Monitor hemoglobin and hematocrit. Transfuse as needed. 3. Monitor for stool OB. 4. The patient might need colonoscopy if continues to bleed. I want to thank Dr. Trish Matias for this kind referral. Juan Coronel M.D. DR: ALEX JOB#: [id number] CC:
--- NOTE | 2018-11-22 18:53 | Pulmonolgy Critical Care Note ---
Critical Care - Asmt/Plan Assessment/Plan: Pulmonary Critical Care Progress Note HPI Patient is an 88-year-old male admitted from Shelter with fever, Pneumonia. Patient had prior history of Dementia, BPH, Diabetes, Hypertension as well as CHF. Patient is chronically ventilator dependent. History is limited by patient's mental status - non verbal on ventilator Allergies: TERAZOSIN Past Medical History: Dementia, Organic Brain Syndrome, BPH, Diabetes, Hypertension, CHF, G tube All Other Systems: limited - Review of systems Stable overnight, S/P upper GI endoscopy, worsening leukocytosis Physical Exam Vital Signs Noted General Appearance: Chronically Ill Eyes: PERRL Neck: dry mm, trach site cdi Respiratory: CTAB Heart: HS1, HS2, RRR Gastrointestinal: no pulsatile mass, Gtube CDI Musculoskeletal: decreased range of motion, weak, wasted, congtracted Neurologic: Reduced LOC, contracted, orthotics in place Impression: Pneumonia Ventilator dependant respiratory failure Severe sepsis - improved Mild Pulmonary congestion on CXR NSTEMI Anemia - H+H stable Dysphagia s/p G tube 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 Tracheostomy tube terminates in the region of the upper thoracic trachea. Probable G-tube projected over the upper abdomen. 2. Diffuse hazy and interstitial opacities are concerning for pulmonary edema and pulmonary vasculature congestion. Bilateral pleural effusions with associated atelectasis versus pneumonia. Critical Care - Objective Last 24 Hour Vital Signs Date Time Temp Pulse Resp B/P (MAP) Pulse Ox O2 Delivery O2 Flow Rate FiO2 11/22/18 17:18 89 27 50 11/22/18 17:00 Mechanical Ventilator 11/22/18 16:00 99.3 97 33 154/72 (99) 99 11/22/18 16:00 Mechanical Ventilator 11/22/18 16:00 50 11/22/18 15:32 80 11/22/18 15:12 92 28 50 11/22/18 13:13 95 30 50 11/22/18 12:00 99.0 92 22 142/90 (107) 98 10/17/19 12:00 Mechanical Ventilator 11/22/18 12:00 50 11/22/18 11:40 91 11/22/18 11:13 88 28 50 11/22/18 09:17 94 25 50 11/22/18 08:00 99.2 90 23 144/92 (109) 96 11/22/18 08:00 Mechanical Ventilator 11/22/18 08:00 50 11/22/18 07:39 90 11/22/18 07:23 50 11/22/18 07:21 92 25 60 11/22/18 05:01 90 29 60 11/22/18 04:00 40 11/22/18 04:00 Mechanical Ventilator 11/22/18 04:00 98 11/22/18 04:00 98.2 97 31 151/78 (102) 96 11/22/18 03:23 89 22 60 11/22/18 00:57 94 31 60 11/22/18 00:00 97.9 99 35 162/81 (108) 93 11/22/18 00:00 Mechanical Ventilator 11/22/18 00:00 96 11/21/18 22:34 110 29 60 11/21/18 21:06 89 28 60 11/21/18 20:00 40 11/21/18 20:00 Mechanical Ventilator 11/21/18 20:00 98.2 102 40 153/88 (109) 94 11/21/18 19:34 94 Accucheck: 121 Critical Care - Subjective ROS Limited/Unobtainable: No FI02: 50 Vent Support Breath Rate: 22 Vent Support Mode: AC Vent Tidal Volume: 400 Sputum Amount: Small PEEP: 5.0 PIP: 37 Tube Feeding Amount: 25 I&O: Intake and Output 11/21/18 11/22/18 19:00 07:00 Intake Total 1810 ml 580.33 ml Output Total 400 ml Balance 1810 ml 180.33 ml Intake Free Water 250 ml 100 ml IV Total 900 ml 205.33 ml Tube Feeding 660 ml 275 ml Output Urine Total 400 ml # Bowel Movements 2 2 Booker Baumann MD Nov 22, 2018 18:53
[2018-11-22] MEDS: Dyna-Hex 2% Top Sol 2oz TOPIC SCH (19:45)
[2018-11-22] MEDS: Tamsulosin 0.4mg cap ORAL SCH (20:51)
[2018-11-23] VITALS (18 sets, daily range): BP systolic 117–162; BP diastolic 45–89
[2018-11-23] MEDS: Piperacillin/Tazobactam 3.375 GM in NS 110 ML IVPB SCH ×3 (03:39→20:05)
[2018-11-23 05:21] LABS: BASOPHILS % (AUTO) 0.5 % (0.0-2.0); EOSINOPHILS % (AUTO) 1.8 % (0.0-3.0); HEMATOCRIT 26.2 % (42.0-52.0); HEMOGLOBIN 8.3 G/DL (14.2-18.0); LYMPHOCYTES % (AUTO) 8.2 % (20.0-45.0); MEAN CORPUSCULAR VOLUME 86 FL (80-99); MONOCYTES % (AUTO) 11.2 % (1.0-10.0); NEUTROPHILS % (AUTO) 78.3 % (45.0-75.0); PLATELET COUNT 190 K/UL (150-450); RED BLOOD COUNT 3.05 M/UL (4.70-6.10); RED CELL DISTRIBUTION WIDTH 15.5 % (11.6-14.8); WHITE BLOOD COUNT 13.5 K/UL (4.8-10.8)
[2018-11-23] MEDS: D5 1/2NS 1,000 ML IV SCH (05:30)
[2018-11-23 05:34] LABS: ANION GAP 3 mmol/L (5-15); BLOOD UREA NITROGEN 17 mg/dL (7-18); CALCIUM 8.6 MG/DL (8.5-10.1); CARBON DIOXIDE 31 MMOL/L (21-32); CHLORIDE 115 MMOL/L (98-107); CREATININE 0.8 MG/DL (0.55-1.30); POTASSIUM 4.1 MMOL/L (3.5-5.1); SODIUM 149 MMOL/L (136-145)
[2018-11-23] MEDS: NovoLOG Insulin Flexpen SUBQ SCH ×4 (06:05→21:34)
--- NOTE | 2018-11-23 08:05 | Pulmonolgy Critical Care Note ---
Critical Care - Asmt/Plan Assessment/Plan: Pulmonary Critical Care Progress Note HPI Patient is an 88-year-old male admitted [facility] with fever, Pneumonia. Patient had prior history of Dementia, BPH, Diabetes, Hypertension as well as CHF. Patient is chronically ventilator dependent. History is limited by patient's mental status - non verbal on ventilator Allergies: TERAZOSIN Past Medical History: Dementia, Organic Brain Syndrome, BPH, Diabetes, Hypertension, CHF, G tube All Other Systems: limited - Review of systems Stable overnight, S/P upper GI endoscopy, persistant leukocytosis SP PICC line Physical Exam Vital Signs Noted General Appearance: Chronically Ill Eyes: PERRL Neck: dry mm, trach site cdi Respiratory: CTAB Heart: HS1, HS2, RRR Gastrointestinal: no pulsatile mass, Gtube CDI Musculoskeletal: decreased range of motion, weak, wasted, congtracted Neurologic: Reduced LOC, contracted, orthotics in place Impression: Pneumonia Ventilator dependant respiratory failure Severe sepsis - improved Mild Pulmonary congestion on CXR NSTEMI Anemia - H+H stable Dysphagia s/p G tube 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 Tracheostomy tube terminates in the region of the upper thoracic trachea. Probable G-tube projected over the upper abdomen. 2. Diffuse hazy and interstitial opacities are concerning for pulmonary edema and pulmonary vasculature congestion. Bilateral pleural effusions with associated atelectasis versus pneumonia. Critical Care - Objective Last 24 Hour Vital Signs Date Time Temp Pulse Resp B/P (MAP) Pulse Ox O2 Delivery O2 Flow Rate FiO2 11/23/18 06:44 91 31 50 11/23/18 05:43 97 24 50 11/23/18 04:00 98.1 101 25 147/77 (100) 95 11/23/18 04:00 91 11/23/18 04:00 Mechanical Ventilator 11/23/18 04:00 50 11/23/18 03:31 97 22 50 11/23/18 01:32 92 26 50 11/23/18 00:00 98.6 87 22 147/69 (95) 97 11/23/18 00:00 Mechanical Ventilator 11/22/18 23:43 93 11/22/18 23:37 27 11/22/18 22:41 100 31 50 11/22/18 21:07 92 28 50 11/22/18 20:00 Mechanical Ventilator 11/22/18 20:00 99.0 90 36 149/69 (95) 100 11/22/18 20:00 50 11/22/18 19:24 91 11/22/18 19:08 92 32 50 11/22/18 17:18 89 27 50 11/22/18 17:00 Mechanical Ventilator 11/22/18 16:10 99.3 97 33 145/85 (105) 99 11/22/18 16:00 99.3 97 33 154/72 (99) 99 11/22/18 16:00 Mechanical Ventilator 11/22/18 16:00 50 11/22/18 15:32 80 11/22/18 15:12 92 28 50 11/22/18 13:13 95 30 50 11/22/18 12:00 99.0 92 22 142/90 (107) 98 11/22/18 12:00 Mechanical Ventilator 11/22/18 12:00 50 11/22/18 11:40 91 11/22/18 11:13 88 28 50 11/22/18 09:17 94 25 50 Accucheck: 126 Critical Care - Subjective ROS Limited/Unobtainable: No FI02: 50 Vent Support Breath Rate: 22 Vent Support Mode: AC Vent Tidal Volume: 400 Sputum Amount: Small PEEP: 5.0 PIP: 36 Tube Feeding Amount: 55 I&O: Intake and Output 11/22/18 11/23/18 19:00 07:00 Intake Total 1457.5 ml 1306.00 ml Output Total 900 ml 400 ml Balance 557.5 ml 906.00 ml Intake Free Water 310 ml IV Total 912.5 ml 701.00 ml Tube Feeding 235 ml 605 ml Output Urine Total 900 ml 400 ml # Bowel Movements 8 2 Booker Baumann MD Nov 23, 2018 08:05
[2018-11-23 08:16] LABS: ALANINE AMINOTRANSFERASE 93 U/L (12-78); ALBUMIN/GLOBULIN RATIO 0.4 (1.0-2.7); ALKALINE PHOSPHATASE 126 U/L (46-116); ANION GAP 5 mmol/L (5-15); ASPARTATE AMINO TRANSFERASE 31 U/L (15-37); BILIRUBIN,TOTAL 0.4 MG/DL (0.2-1.0); BLOOD UREA NITROGEN 17 mg/dL (7-18); CALCIUM 8.7 MG/DL (8.5-10.1); CARBON DIOXIDE 30 MMOL/L (21-32); CHLORIDE 115 MMOL/L (98-107); CREATININE 0.9 MG/DL (0.55-1.30); POTASSIUM 4.1 MMOL/L (3.5-5.1); SODIUM 150 MMOL/L (136-145)
[2018-11-23] MEDS: Hydromorphone 0.5mg/0.5ml inj IVP PRN (08:56)
[2018-11-23] MEDS: Doxycycline Hyclate 100 MG in D5W 110 ML IV SCH ×2 (08:57→20:40)
[2018-11-23] MEDS: ZyPREXA Zydis 5mg tab GT SCH (08:57)
[2018-11-23] MEDS: Pantoprazole Inj IVP SCH ×2 (08:57→20:40)
[2018-11-23] MEDS ORDERED: Acetaminophen 650mg/20.3ml GT PRN ×2 (09:00→09:39)
[2018-11-23] MEDS ORDERED: Hydromorphone 0.5mg/0.5ml inj IVP PRN (09:40)
[2018-11-23] MEDS ORDERED: D5 1/2NS 1,000 ML IV SCH (10:00)
[2018-11-23] MEDS ORDERED: LORazepam Inj 2mg/ml 1ml IV PRN (10:30)
--- NOTE | 2018-11-23 10:38 | Nephrology Progress Note ---
Assessment/Plan Problem List: (1) Septic shock Assessment: WBCs rising (2) Ventilator dependence (3) Renal failure (ARF), acute on chronic (4) Prostate enlargement (5) Anemia Assessment Septic Shock Acute renal failure CKD underlying BPH Sever Anemia Chronic trach-Vent DM HypoAlbuminemia HyperNatremia Dementia Troponin elevation Plan now in ICU for episode of bradycardia and asystole labs reviewed- mag IV as needed change IV to D5 avoid Nephrotoxics transfuse as needed crabtree monitor urine out put and renal parameters per orders Subjective ROS Limited/Unobtainable: Yes Objective Objective Last 24 Hour Vital Signs Date Time Temp Pulse Resp B/P (MAP) Pulse Ox O2 Delivery O2 Flow Rate FiO2 11/23/18 09:26 97.3 11/23/18 08:35 92 24 50 11/23/18 08:00 Mechanical Ventilator 11/23/18 08:00 97.3 79 36 162/89 (113) 97 11/23/18 08:00 50 11/23/18 08:00 79 11/23/18 06:44 91 31 50 11/23/18 05:43 97 24 50 11/23/18 04:00 98.1 101 25 147/77 (100) 95 11/23/18 04:00 91 11/23/18 04:00 Mechanical Ventilator 11/23/18 04:00 50 11/23/18 03:31 97 22 50 11/23/18 01:32 92 26 50 11/23/18 00:00 98.6 87 22 147/69 (95) 97 11/23/18 00:00 Mechanical Ventilator 11/22/18 23:43 93 11/22/18 23:37 27 11/22/18 22:41 100 31 50 11/22/18 21:07 92 28 50 11/22/18 20:00 Mechanical Ventilator 11/22/18 20:00 99.0 90 36 149/69 (95) 100 11/22/18 20:00 50 11/22/18 19:24 91 11/22/18 19:08 92 32 50 11/22/18 17:18 89 27 50 11/22/18 17:00 Mechanical Ventilator 11/22/18 16:10 99.3 97 33 145/85 (105) 99 11/22/18 16:00 99.3 97 33 154/72 (99) 99 11/22/18 16:00 Mechanical Ventilator 11/22/18 16:00 50 11/22/18 15:32 80 11/22/18 15:12 92 28 50 11/22/18 13:13 95 30 50 11/22/18 12:00 99.0 92 22 142/90 (107) 98 11/22/18 12:00 Mechanical Ventilator 11/22/18 12:00 50 11/22/18 11:40 91 11/22/18 11:13 88 28 50 Intake and Output 11/22/18 11/23/18 19:00 07:00 Intake Total 1457.5 ml 1356.00 ml Output Total 900 ml 400 ml Balance 557.5 ml 956.00 ml Intake Free Water 310 ml IV Total 912.5 ml 751.00 ml Tube Feeding 235 ml 605 ml Output Urine Total 900 ml 400 ml # Bowel Movements 8 2 Laboratory Tests 11/23/18 04:00: White Blood Count 13.5H, Red Blood Count 3.05L, Hemoglobin 8.3L, Hematocrit 26.2L, Mean Corpuscular Volume 86, Mean Corpuscular Hemoglobin 27.4, Mean Corpuscular Hemoglobin Concent 31.8L, Red Cell Distribution Width 15.5H, Platelet Count 190, Mean Platelet Volume 6.7, Neutrophils (%) (Auto) 78.3H, Lymphocytes (%) (Auto) 8.2L, Monocytes (%) (Auto) 11.2H, Eosinophils (%) (Auto) 1.8, Basophils (%) (Auto) 0.5, Sodium Level 149H, Potassium Level 4.1, Chloride Level 115H, Carbon Dioxide Level 31, Anion Gap 3L, Blood Urea Nitrogen 17, Creatinine 0.8, Estimat Glomerular Filtration Rate , Glucose Level 118H, Calcium Level 8.6 11/23/18 07:50: Sodium Level 150H, Potassium Level 4.1, Chloride Level 115H, Carbon Dioxide Level 30, Anion Gap 5, Blood Urea Nitrogen 17, Creatinine 0.9, Estimat Glomerular Filtration Rate , Glucose Level 126H, Calcium Level 8.7, Total Bilirubin 0.4, Aspartate Amino Transf (AST/SGOT) 31, Alanine Aminotransferase ( ALT/SGPT) 93H, Alkaline Phosphatase 126H, Troponin I 0.078H, Total Protein 6.5, Albumin 2.0L, Globulin 4.5, Albumin/Globulin Ratio 0.4L Height (Feet): 5 Height (Inches): 5.00 Weight (Pounds): 165 General Appearance: no apparent distress EENT: other - vented Cardiovascular: normal rate Respiratory/Chest: decreased breath sounds Abdomen: distended Objective no change Randolph Fernandes MD Nov 23, 2018 10:38
[2018-11-23] MEDS: Albuterol/Ipratropium 3ml neb HHN SCH ×4 (10:59→23:36)
[2018-11-23] MEDS: LORazepam Inj 2mg/ml 1ml IV PRN ×3 (11:06→18:16)
--- NOTE | 2018-11-23 11:34 | Diagnostic Imaging Report ---
Indication: Shortness of breath Technique: XRAY Chest 1v Comparison: 11/18/2018 Findings: Significantly limited exam due to underpenetration, possibly related to body habitus or technique. Tracheostomy tube is noted. Heart size and mediastinal contours appear stable. A left arm PICC line is noted with the catheter tip projects in expected region of the lower SVC. Extensive interstitial and bilateral airspace opacities again noted, seemingly increased compared to the prior exam. There are also layering pleural effusions. No radiographically appreciable pneumothorax. Osseous structures appear grossly stable. Impression: Limited exam as above. Interval left arm PICC line placement, catheter tip the region of the lower SVC. Tracheostomy tube in place. Interstitial and bilateral airspace disease suggesting CHF/pulmonary edema, apparently worsened compared to prior exam. Superimposed infection/pneumonia needs to be excluded clinically. Layering bilateral pleural effusions, right greater than left.
--- NOTE | 2018-11-23 12:19 | Infectious Diseases Prog Note ---
Assessment/Plan Assessment/Plan IMPRESSION: Sepsis, Pyuria/ UTI Pneumonia BPH, ventilator-dependent respiratory failure Leukemoid reaction,resolved Acute renal failure, improving Diabetes mellitus, anemia, hypoxemic respiratory failure, dementia. 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 Subjective ROS Limited/Unobtainable: Yes Constitutional: Reports: other - transferred to ICU Respiratory: Reports: shortness of breath, other - fighting with ventilator Allergies: Coded Allergies: TERAZOSIN (Verified Allergy, Unknown, 10/27/17) Objective Vital Signs Last 24 Hour Vital Signs Date Time Temp Pulse Resp B/P (MAP) Pulse Ox O2 Delivery O2 Flow Rate FiO2 11/23/18 11:19 92 21 98 11/23/18 11:18 92 22 98 11/23/18 10:59 90 22 50 11/23/18 09:26 97.3 11/23/18 08:35 92 24 50 11/23/18 08:00 Mechanical Ventilator 11/23/18 08:00 97.3 79 36 162/89 (113) 97 11/23/18 08:00 50 11/23/18 08:00 79 11/23/18 06:44 91 31 50 11/23/18 05:43 97 24 50 11/23/18 04:00 98.1 101 25 147/77 (100) 95 11/23/18 04:00 91 11/23/18 04:00 Mechanical Ventilator 11/23/18 04:00 50 11/23/18 03:31 97 22 50 11/23/18 01:32 92 26 50 11/23/18 00:00 98.6 87 22 147/69 (95) 97 11/23/18 00:00 Mechanical Ventilator 11/22/18 23:43 93 11/22/18 23:37 27 11/22/18 22:41 100 31 50 11/22/18 21:07 92 28 50 11/22/18 20:00 Mechanical Ventilator 11/22/18 20:00 99.0 90 36 149/69 (95) 100 11/22/18 20:00 50 11/22/18 19:24 91 11/22/18 19:08 92 32 50 11/22/18 17:18 89 27 50 11/22/18 17:00 Mechanical Ventilator 11/22/18 16:10 99.3 97 33 145/85 (105) 99 11/22/18 16:00 99.3 97 33 154/72 (99) 99 11/22/18 16:00 Mechanical Ventilator 11/22/18 16:00 50 11/22/18 15:32 80 11/22/18 15:12 92 28 50 11/22/18 13:13 95 30 50 Height (Feet): 5 Height (Inches): 5.00 Weight (Pounds): 165 HEENT: status post trach Respiratory/Chest: lungs clear, other - on ventilator Cardiovascular: normal rate, other - PICC line Abdomen: soft, non tender, other - GT feeding Extremities: other - generalised edema Neurologic/Psychiatric: aphasia Microbiology Date/Time Source Procedure Growth Status 11/22/18 17:30 Indwelling Cath Urine Culture - Preliminary NO GROWTH Resulted Laboratory Tests Test 11/23/18 04:00 11/23/18 07:50 11/23/18 10:29 White Blood Count 13.5 K/UL (4.8-10.8) H Red Blood Count 3.05 M/UL (4.70-6.10) L Hemoglobin 8.3 G/DL (14.2-18.0) L Hematocrit 26.2 % (42.0-52.0) L Mean Corpuscular Volume 86 FL (80-99) Mean Corpuscular Hemoglobin 27.4 PG (27.0-31.0) Mean Corpuscular Hemoglobin Concent 31.8 G/DL (32.0-36.0) L Red Cell Distribution Width 15.5 % (11.6-14.8) H Platelet Count 190 K/UL (150-450) Mean Platelet Volume 6.7 FL (6.5-10.1) Neutrophils (%) (Auto) 78.3 % (45.0-75.0) H Lymphocytes (%) (Auto) 8.2 % (20.0-45.0) L Monocytes (%) (Auto) 11.2 % (1.0-10.0) H Eosinophils (%) (Auto) 1.8 % (0.0-3.0) Basophils (%) (Auto) 0.5 % (0.0-2.0) Sodium Level 149 MMOL/L (136-145) H 150 MMOL/L (136-145) H Potassium Level 4.1 MMOL/L (3.5-5.1) 4.1 MMOL/L (3.5-5.1) Chloride Level 115 MMOL/L (98-107) H 115 MMOL/L (98-107) H Carbon Dioxide Level 31 MMOL/L (21-32) 30 MMOL/L (21-32) Anion Gap 3 mmol/L (5-15) L 5 mmol/L (5-15) Blood Urea Nitrogen 17 mg/dL (7-18) 17 mg/dL (7-18) Creatinine 0.8 MG/DL (0.55-1.30) 0.9 MG/DL (0.55-1.30) Estimat Glomerular Filtration Rate mL/min (>60) mL/min (>60) Glucose Level 118 MG/DL (74-106) H 126 MG/DL (74-106) H Calcium Level 8.6 MG/DL (8.5-10.1) 8.7 MG/DL (8.5-10.1) Total Bilirubin 0.4 MG/DL (0.2-1.0) Aspartate Amino Transf (AST/SGOT) 31 U/L (15-37) Alanine Aminotransferase (ALT/SGPT) 93 U/L (12-78) H Alkaline Phosphatase 126 U/L (46-116) H Troponin I 0.078 ng/mL (0.000-0.056) Total Protein 6.5 G/DL (6.4-8.2) Albumin 2.0 G/DL (3.4-5.0) L Globulin 4.5 g/dL Albumin/Globulin Ratio 0.4 (1.0-2.7) L Arterial Blood pH 7.299 (7.350-7.450) Arterial Blood Partial Pressure CO2 58.9 mmHg (35.0-45.0) *H Arterial Blood Partial Pressure O2 72.9 mmHg (75.0-100.0) L Arterial Blood HCO3 28.3 mmol/L (22.0-26.0) H Arterial Blood Oxygen Saturation 93.4 % (95-100) L Arterial Blood Base Excess 1.2 (-2-2) Ebenezer Test Positive Current Medications Medications (Trade) Dose Ordered Sig/Ruthie Route PRN Reason Start Time Stop Time Status Last Admin Dose Admin Acetaminophen (Tylenol) 650 mg Q6H PRN GT Mild Pain/Temp > 100.5 11/23/18 09:39 12/15/18 09:38 Albuterol/ Ipratropium (Albuterol/ Ipratropium) 3 ml Q4HRT HHN 11/23/18 11:00 11/28/18 10:59 11/23/18 10:59 Bisacodyl (Dulcolax) 10 mg DAILYPRN PRN RECTAL Constipation 11/23/18 09:39 12/18/18 09:38 Chlorhexidine Gluconate (Rachael-Hex 2%) 1 applic DAILY@2000 TOPIC 11/23/18 20:00 12/15/18 19:59 Dextrose 1,000 ml @ 30 mls/hr Q24H IV 11/23/18 10:45 12/23/18 10:44 11/23/18 11:07 Dextrose (Dextrose 50%) 25 ml Q30M PRN IV Hypoglycemia 11/23/18 09:39 12/15/18 09:38 Dextrose (Dextrose 50%) 50 ml Q30M PRN IV Hypoglycemia 11/23/18 09:45 12/15/18 05:44 Doxycycline Hyclate 100 mg/ Dextrose 110 ml @ 110 mls/hr Q12HR IV 11/23/18 21:00 11/26/18 20:59 Hydromorphone HCl (Dilaudid) 0.5 mg Q4H PRN IVP For Pain 11/23/18 09:40 11/29/18 09:39 Insulin Aspart (NovoLOG) BEFORE MEALS AND HS SUBQ 11/23/18 11:30 12/15/18 06:29 11/23/18 11:54 Lorazepam (Ativan 2mg/ml 1ml) 0.5 mg Q2H PRN IV For Anxiety 11/23/18 10:45 11/30/18 10:44 11/23/18 11:06 Olanzapine (ZyPREXA Zydis) 7.5 mg DAILY GT 11/24/18 09:00 12/15/18 08:59 Pantoprazole (Protonix) 40 mg EVERY 12 HOURS IVP 11/23/18 21:00 12/15/18 08:59 Piperacillin Sod/ Tazobactam Sod 3.375 gm/Sodium Chloride 110 ml @ 27.5 mls/hr Q8H IVPB 11/23/18 12:00 11/26/18 19:59 11/23/18 11:07 Quetiapine Fumarate (SEROquel) 50 mg DAILY GT 11/24/18 09:00 12/15/18 08:59 Tamsulosin HCl (Flomax) 0.4 mg BEDTIME ORAL 11/23/18 21:00 12/15/18 20:59 Anam Cruz MD Nov 23, 2018 12:19
--- NOTE | 2018-11-23 12:38 | General Progress Note ---
Assessment/Plan Problem List: (1) Hypernatremia ICD Codes: E87.0 - Hyperosmolality and hypernatremia SNOMED: 24677909 (2) Rhabdomyolysis ICD Codes: M62.82 - Rhabdomyolysis SNOMED: 619475750 (3) Sacral decubitus ulcer ICD Codes: L89.159 - Pressure ulcer of sacral region, unspecified stage SNOMED: 908925332 (4) Severe sepsis ICD Codes: A41.9 - Sepsis, unspecified organism; R65.20 - Severe sepsis without septic shock SNOMED: 62665791 (5) Septic shock ICD Codes: A41.9 - Sepsis, unspecified organism; R65.21 - Severe sepsis with septic shock SNOMED: 89674116 (6) DM (7) Anemia ICD Codes: D64.9 - Anemia, unspecified SNOMED: 461580416 (8) Prostate enlargement ICD Codes: N40.0 - Benign prostatic hyperplasia without lower urinary tract symptoms SNOMED: 818231576 (9) Chronic renal disease ICD Codes: N18.9 - Chronic kidney disease, unspecified SNOMED: 247298631 (10) Ventilator dependence ICD Codes: Z99.11 - Dependence on respirator [ventilator] status SNOMED: 211784361 (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 - Gastrostomy status SNOMED: 485443558, 579587620 (12) Malnutrition ICD Codes: E46 - Unspecified protein-calorie malnutrition SNOMED: 83178969 Status: progressing, unchanged Assessment/Plan: 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 dr reece is Ep on the case from the beginning in charge of bradycardia,sss and junctional rhythem and heart block since is EP related issue dr reece is made aware by me and rn re the junctional rhythem w pause and pacemaker decision is up to dr reece since he is EP dr on the case hypernatremia improving bph uti Subjective ROS Limited/Unobtainable: Yes Allergies: Coded Allergies: TERAZOSIN (Verified Allergy, Unknown, 10/27/17) Objective Last 24 Hour Vital Signs Date Time Temp Pulse Resp B/P (MAP) Pulse Ox O2 Delivery O2 Flow Rate FiO2 11/23/18 12:00 50 11/23/18 11:19 92 21 98 11/23/18 11:18 92 22 98 11/23/18 10:59 90 22 50 11/23/18 09:26 97.3 11/23/18 08:35 92 24 50 11/23/18 08:00 Mechanical Ventilator 11/23/18 08:00 97.3 79 36 162/89 (113) 97 11/23/18 08:00 50 11/23/18 08:00 79 11/23/18 06:44 91 31 50 11/23/18 05:43 97 24 50 11/23/18 04:00 98.1 101 25 147/77 (100) 95 11/23/18 04:00 91 11/23/18 04:00 Mechanical Ventilator 11/23/18 04:00 50 11/23/18 03:31 97 22 50 11/23/18 01:32 92 26 50 11/23/18 00:00 98.6 87 22 147/69 (95) 97 11/23/18 00:00 Mechanical Ventilator 11/22/18 23:43 93 11/22/18 23:37 27 11/22/18 22:41 100 31 50 11/22/18 21:07 92 28 50 11/22/18 20:00 Mechanical Ventilator 11/22/18 20:00 99.0 90 36 149/69 (95) 100 11/22/18 20:00 50 11/22/18 19:24 91 11/22/18 19:08 92 32 50 11/22/18 17:18 89 27 50 11/22/18 17:00 Mechanical Ventilator 11/22/18 16:10 99.3 97 33 145/85 (105) 99 11/22/18 16:00 99.3 97 33 154/72 (99) 99 11/22/18 16:00 Mechanical Ventilator 11/22/18 16:00 50 11/22/18 15:32 80 11/22/18 15:12 92 28 50 11/22/18 13:13 95 30 50 Intake and Output 11/22/18 11/23/18 19:00 07:00 Intake Total 1457.5 ml 1356.00 ml Output Total 900 ml 400 ml Balance 557.5 ml 956.00 ml Intake Free Water 310 ml IV Total 912.5 ml 751.00 ml Tube Feeding 235 ml 605 ml Output Urine Total 900 ml 400 ml # Bowel Movements 8 2 Laboratory Tests 11/23/18 04:00: White Blood Count 13.5H, Red Blood Count 3.05L, Hemoglobin 8.3L, Hematocrit 26.2L, Mean Corpuscular Volume 86, Mean Corpuscular Hemoglobin 27.4, Mean Corpuscular Hemoglobin Concent 31.8L, Red Cell Distribution Width 15.5H, Platelet Count 190, Mean Platelet Volume 6.7, Neutrophils (%) (Auto) 78.3H, Lymphocytes (%) (Auto) 8.2L, Monocytes (%) (Auto) 11.2H, Eosinophils (%) (Auto) 1.8, Basophils (%) (Auto) 0.5, Sodium Level 149H, Potassium Level 4.1, Chloride Level 115H, Carbon Dioxide Level 31, Anion Gap 3L, Blood Urea Nitrogen 17, Creatinine 0.8, Estimat Glomerular Filtration Rate , Glucose Level 118H, Calcium Level 8.6 11/23/18 07:50: Sodium Level 150H, Potassium Level 4.1, Chloride Level 115H, Carbon Dioxide Level 30, Anion Gap 5, Blood Urea Nitrogen 17, Creatinine 0.9, Estimat Glomerular Filtration Rate , Glucose Level 126H, Calcium Level 8.7, Total Bilirubin 0.4, Aspartate Amino Transf (AST/SGOT) 31, Alanine Aminotransferase ( ALT/SGPT) 93H, Alkaline Phosphatase 126H, Troponin I 0.078H, Total Protein 6.5, Albumin 2.0L, Globulin 4.5, Albumin/Globulin Ratio 0.4L 11/23/18 10:29: Arterial Blood pH 7.299L, Arterial Blood Partial Pressure CO2 58.9*H, Arterial Blood Partial Pressure O2 72.9L, Arterial Blood HCO3 28.3H, Arterial Blood Oxygen Saturation 93.4L, Arterial Blood Base Excess 1.2, Ebenezer Test Positive Height (Feet): 5 Height (Inches): 5.00 Weight (Pounds): 165 Cardiovascular: normal rate Respiratory/Chest: lungs clear Abdomen: soft Trish Matias MD Nov 23, 2018 12:38
--- NOTE | 2018-11-23 13:22 | GI Progress Note ---
Assessment/Plan Problems: (1) PEG (percutaneous endoscopic gastrostomy) status ICD Codes: Z93.1 - Gastrostomy status SNOMED: 713327559, 585643614 (2) GIB (gastrointestinal bleeding) ICD Codes: K92.2 - Gastrointestinal hemorrhage, unspecified SNOMED: 01396906 (3) Anemia ICD Codes: D64.9 - Anemia, unspecified SNOMED: 790697732 (4) Constipation ICD Codes: K59.00 - Constipation, unspecified SNOMED: 63763806 (5) Gastrostomy tube dependent ICD Codes: Z93.1 - Gastrostomy status SNOMED: 624748533, 402073379 (6) DM (7) Encephalopathy due to metabolic factor or toxin SNOMED: 750136738 Status: not improved, unchanged Status Narrative Discussed with Dr. Coronel Assessment/Plan OB stool positive x2 hepatitis panel negative s/p EGD SUMMARY OF FINDINGS: Gastritis, otherwise normal upper endoscopic examination. RECOMMENDATIONS: Resume G-tube feeding. Monitor hemoglobin and hematocrit. Transfuse as needed. Monitor for stool OB. The patient might need colonoscopy if continues to bleed. Hold iron supplementation given elevated ferritin levels abx fu labs The patient was seen and examined at bedside and all new and available data was reviewed in the patients chart. I agree with the above findings, impression and plan. (Patient seen earlier today. Signature stamp does not reflect patient encounter time.). - Juan Coronel MD Subjective Subjective limited Objective Last 24 Hour Vital Signs Date Time Temp Pulse Resp B/P (MAP) Pulse Ox O2 Delivery O2 Flow Rate FiO2 11/23/18 12:59 91 22 50 11/23/18 12:00 87 11/23/18 12:00 50 11/23/18 12:00 98.1 80 27 123/62 (82) 97 11/23/18 12:00 Mechanical Ventilator 11/23/18 11:19 92 21 98 11/23/18 11:18 92 22 98 11/23/18 11:00 80 21 117/51 (73) 100 11/23/18 10:59 90 22 50 11/23/18 10:49 46 11/23/18 10:00 82 21 125/55 (78) 98 11/23/18 09:26 97.3 11/23/18 09:00 Mechanical Ventilator 11/23/18 09:00 98.0 86 25 142/66 (91) 98 11/23/18 08:35 92 24 50 11/23/18 08:10 90 11/23/18 08:00 Mechanical Ventilator 11/23/18 08:00 97.3 79 36 162/89 (113) 97 11/23/18 08:00 50 11/23/18 08:00 79 11/23/18 06:44 91 31 50 11/23/18 05:43 97 24 50 11/23/18 04:00 98.1 101 25 147/77 (100) 95 11/23/18 04:00 91 11/23/18 04:00 Mechanical Ventilator 11/23/18 04:00 50 11/23/18 03:31 97 22 50 11/23/18 01:32 92 26 50 11/23/18 00:00 98.6 87 22 147/69 (95) 97 11/23/18 00:00 Mechanical Ventilator 11/22/18 23:43 93 11/22/18 23:37 27 11/22/18 22:41 100 31 50 11/22/18 21:07 92 28 50 11/22/18 20:00 Mechanical Ventilator 11/22/18 20:00 99.0 90 36 149/69 (95) 100 11/22/18 20:00 50 11/22/18 19:24 91 11/22/18 19:08 92 32 50 11/22/18 17:18 89 27 50 11/22/18 17:00 Mechanical Ventilator 11/22/18 16:10 99.3 97 33 145/85 (105) 99 11/22/18 16:00 99.3 97 33 154/72 (99) 99 11/22/18 16:00 Mechanical Ventilator 11/22/18 16:00 50 11/22/18 15:32 80 11/22/18 15:12 92 28 50 Intake and Output 11/22/18 11/23/18 18:59 06:59 Intake Total 1415.0 ml 1376.00 ml Output Total 900 ml 400 ml Balance 515.0 ml 976.00 ml Intake Free Water 310 ml IV Total 925.0 ml 716.00 ml Tube Feeding 180 ml 660 ml Output Urine Total 900 ml 400 ml # Bowel Movements 8 2 Laboratory Tests Test 11/23/18 04:00 11/23/18 07:50 11/23/18 10:29 White Blood Count 13.5 K/UL (4.8-10.8) H Red Blood Count 3.05 M/UL (4.70-6.10) L Hemoglobin 8.3 G/DL (14.2-18.0) L Hematocrit 26.2 % (42.0-52.0) L Mean Corpuscular Volume 86 FL (80-99) Mean Corpuscular Hemoglobin 27.4 PG (27.0-31.0) Mean Corpuscular Hemoglobin Concent 31.8 G/DL (32.0-36.0) L Red Cell Distribution Width 15.5 % (11.6-14.8) H Platelet Count 190 K/UL (150-450) Mean Platelet Volume 6.7 FL (6.5-10.1) Neutrophils (%) (Auto) 78.3 % (45.0-75.0) H Lymphocytes (%) (Auto) 8.2 % (20.0-45.0) L Monocytes (%) (Auto) 11.2 % (1.0-10.0) H Eosinophils (%) (Auto) 1.8 % (0.0-3.0) Basophils (%) (Auto) 0.5 % (0.0-2.0) Sodium Level 149 MMOL/L (136-145) H 150 MMOL/L (136-145) H Potassium Level 4.1 MMOL/L (3.5-5.1) 4.1 MMOL/L (3.5-5.1) Chloride Level 115 MMOL/L (98-107) H 115 MMOL/L (98-107) H Carbon Dioxide Level 31 MMOL/L (21-32) 30 MMOL/L (21-32) Anion Gap 3 mmol/L (5-15) L 5 mmol/L (5-15) Blood Urea Nitrogen 17 mg/dL (7-18) 17 mg/dL (7-18) Creatinine 0.8 MG/DL (0.55-1.30) 0.9 MG/DL (0.55-1.30) Estimat Glomerular Filtration Rate mL/min (>60) mL/min (>60) Glucose Level 118 MG/DL (74-106) H 126 MG/DL (74-106) H Calcium Level 8.6 MG/DL (8.5-10.1) 8.7 MG/DL (8.5-10.1) Total Bilirubin 0.4 MG/DL (0.2-1.0) Aspartate Amino Transf (AST/SGOT) 31 U/L (15-37) Alanine Aminotransferase (ALT/SGPT) 93 U/L (12-78) H Alkaline Phosphatase 126 U/L (46-116) H Troponin I 0.078 ng/mL (0.000-0.056) Total Protein 6.5 G/DL (6.4-8.2) Albumin 2.0 G/DL (3.4-5.0) L Globulin 4.5 g/dL Albumin/Globulin Ratio 0.4 (1.0-2.7) L Arterial Blood pH 7.299 (7.350-7.450) Arterial Blood Partial Pressure CO2 58.9 mmHg (35.0-45.0) *H Arterial Blood Partial Pressure O2 72.9 mmHg (75.0-100.0) L Arterial Blood HCO3 28.3 mmol/L (22.0-26.0) H Arterial Blood Oxygen Saturation 93.4 % (95-100) L Arterial Blood Base Excess 1.2 (-2-2) Ebenezer Test Positive Microbiology Date/Time Source Procedure Growth Status 11/22/18 17:30 Indwelling Cath Urine Culture - Preliminary NO GROWTH Resulted Height (Feet): 5 Height (Inches): 5.00 Weight (Pounds): 165 General Appearance: no apparent distress Cardiovascular: normal rate Respiratory/Chest: normal breath sounds, no respiratory distress Abdominal Exam: soft Kishan Hopkins [employer] Nov 23, 2018 13:22
--- NOTE | 2018-11-23 15:02 | Hematology/Onc Progress Note ---
Assessment/Plan Assessment/Plan ASSESSMENT AND RECOMMENDATIONS # Leukocytosis. Likely related to underlying infection with sepsis and elevated severely on admission --> Imaging has been reviewed. Shows cxr left lung inil/v edema --> Blood cs and urine cx are reviewed --> Has been started on abx, empiric tx --> PERIPHERAL SMEAR SHOWS ATYPICAL LYMPHOCYTES --> Flow cytometry ordered with pathologist -> no atypical findings are noted --> wbc 52k-->47k-->29k->16-->12-->14->12-->12-->21-->14 --> picc was repositioned # Anemia of chronic disease, due to underlying chronic medical issues, multifactorial. --> Anemia w/u has been ordered --> with hyperferritinemia --> No evidence of hemolysis noted, peripheral smear has been reviewed --> Hgb goal >7. Transfuse as needed --> hgb trend 7.5-->6.6->9.1-->9.2-->8.9-->9.9->8.3 --> 2 units transfuse on 11/15 --> will need to follow as outpatient and may need chelation therapy --> GI workup once more stable # Failure to thrive (FTT) - decreased bmi and low protein --> cea 4.3 --> will obtain q3 day caloric counts --> consider mirtazapine as appetite stimulant --> GI consult on a prn basis, as needed for endosc # Sepsis. improved # PEG. # Malnutrition. 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 Greatly appreciate consultation. Subjective HEENT: Denies: no symptoms, eye pain, blurred vision, tearing, double vision, ear pain, ear discharge, nose pain, nose congestion, throat pain, throat swelling, mouth pain, mouth swelling, other Cardiovascular: Denies: no symptoms, chest pain, edema, irregular heart rate, lightheadedness, palpitations, syncope, other Gastrointestinal/Abdominal: Denies: no symptoms, abdomen distended, abdominal pain, black stools, tarry stools, blood in stool, constipated, diarrhea, difficulty swallowing, nausea, poor appetite, poor fluid intake, rectal bleeding , vomiting, other Genitourinary: Denies: no symptoms, burning, discharge, frequency, flank pain, hematuria, incontinence, pain, urgency, other Neurologic/Psychiatric: Denies: no symptoms, anxiety, depressed, emotional problems, headache, numbness, paresthesia, pre-existing deficit, seizure, tingling, tremors, weakness, other Allergies: Coded Allergies: TERAZOSIN (Verified Allergy, Unknown, 10/27/17) Subjective 11/16: in the icu, is off pressors, doing better, no bleeding 11/18: no bleeding, remains on doxy and zosyn, no bleeding reported 11/19: out of the icu, on vent/trach, no major changes, dw rn 11/20: no bleeding noted, no night sweats, meds reviewed, no f/c 11/21: on vent, obtunded, with gt ongong, with picc, no bleeding 10.17: stricture advanced through with uro, with crabtree, labs noted 11/23: no events to report, no bleeding, labs reviewed, in icu Objective Objective Current Medications Medications (Trade) Dose Ordered Sig/Ruthie Route PRN Reason Start Time Stop Time Status Last Admin Dose Admin Acetaminophen (Tylenol) 650 mg Q6H PRN GT Mild Pain/Temp > 100.5 11/23/18 09:39 12/15/18 09:38 Albuterol/ Ipratropium (Albuterol/ Ipratropium) 3 ml Q4HRT HHN 11/23/18 11:00 11/28/18 10:59 11/23/18 14:39 Bisacodyl (Dulcolax) 10 mg DAILYPRN PRN RECTAL Constipation 11/23/18 09:39 12/18/18 09:38 Chlorhexidine Gluconate (Rachael-Hex 2%) 1 applic DAILY@2000 TOPIC 11/23/18 20:00 12/15/18 19:59 Dextrose 1,000 ml @ 30 mls/hr Q24H IV 11/23/18 10:45 12/23/18 10:44 11/23/18 11:07 Dextrose (Dextrose 50%) 25 ml Q30M PRN IV Hypoglycemia 11/23/18 09:39 12/15/18 09:38 Dextrose (Dextrose 50%) 50 ml Q30M PRN IV Hypoglycemia 11/23/18 09:45 12/15/18 05:44 Doxycycline Hyclate 100 mg/ Dextrose 110 ml @ 110 mls/hr Q12HR IV 11/23/18 21:00 11/26/18 20:59 Hydromorphone HCl (Dilaudid) 0.5 mg Q4H PRN IVP For Pain 11/23/18 09:40 11/29/18 09:39 Insulin Aspart (NovoLOG) BEFORE MEALS AND HS SUBQ 11/23/18 11:30 12/15/18 06:29 11/23/18 11:54 Lorazepam (Ativan 2mg/ml 1ml) 0.5 mg Q2H PRN IV For Anxiety 11/23/18 10:45 11/30/18 10:44 11/23/18 11:06 Olanzapine (ZyPREXA Zydis) 7.5 mg DAILY GT 11/24/18 09:00 12/15/18 08:59 Pantoprazole (Protonix) 40 mg EVERY 12 HOURS IVP 11/23/18 21:00 12/15/18 08:59 Piperacillin Sod/ Tazobactam Sod 3.375 gm/Sodium Chloride 110 ml @ 27.5 mls/hr Q8H IVPB 11/23/18 12:00 11/26/18 19:59 11/23/18 11:07 Quetiapine Fumarate (SEROquel) 50 mg DAILY GT 11/24/18 09:00 12/15/18 08:59 Tamsulosin HCl (Flomax) 0.4 mg BEDTIME ORAL 11/23/18 21:00 12/15/18 20:59 Last 24 Hour Vital Signs Date Time Temp Pulse Resp B/P (MAP) Pulse Ox O2 Delivery O2 Flow Rate FiO2 11/23/18 14:39 79 22 99 Mechanical Ventilator 50 80 22 50 11/23/18 12:59 91 22 50 11/23/18 12:00 87 11/23/18 12:00 50 11/23/18 12:00 98.1 80 27 123/62 (82) 97 11/23/18 12:00 Mechanical Ventilator 11/23/18 11:19 92 21 98 11/23/18 11:18 92 22 98 11/23/18 11:00 80 21 117/51 (73) 100 11/23/18 10:59 90 22 50 11/23/18 10:49 46 11/23/18 10:00 82 21 125/55 (78) 98 11/23/18 09:26 97.3 11/23/18 09:00 Mechanical Ventilator 11/23/18 09:00 98.0 86 25 142/66 (91) 98 11/23/18 08:35 92 24 50 11/23/18 08:10 90 11/23/18 08:00 Mechanical Ventilator 11/23/18 08:00 97.3 79 36 162/89 (113) 97 11/23/18 08:00 50 11/23/18 08:00 79 11/23/18 06:44 91 31 50 11/23/18 05:43 97 24 50 11/23/18 04:00 98.1 101 25 147/77 (100) 95 11/23/18 04:00 91 11/23/18 04:00 Mechanical Ventilator 11/23/18 04:00 50 11/23/18 03:31 97 22 50 11/23/18 01:32 92 26 50 11/23/18 00:00 98.6 87 22 147/69 (95) 97 11/23/18 00:00 Mechanical Ventilator 11/22/18 23:43 93 11/22/18 23:37 27 11/22/18 22:41 100 31 50 11/22/18 21:07 92 28 50 11/22/18 20:00 Mechanical Ventilator 11/22/18 20:00 99.0 90 36 149/69 (95) 100 11/22/18 20:00 50 11/22/18 19:24 91 11/22/18 19:08 92 32 50 11/22/18 17:18 89 27 50 11/22/18 17:00 Mechanical Ventilator 11/22/18 16:10 99.3 97 33 145/85 (105) 99 11/22/18 16:00 99.3 97 33 154/72 (99) 99 11/22/18 16:00 Mechanical Ventilator 11/22/18 16:00 50 11/22/18 15:32 80 11/22/18 15:12 92 28 50 11/22/18 13:13 95 30 50 11/22/18 12:00 99.0 92 22 142/90 (107) 98 11/22/18 12:00 Mechanical Ventilator 11/22/18 12:00 50 11/22/18 11:40 91 11/22/18 11:13 88 28 50 11/22/18 09:17 94 25 50 11/22/18 08:00 99.2 90 23 144/92 (109) 96 11/22/18 08:00 Mechanical Ventilator 11/22/18 08:00 50 11/22/18 07:39 90 11/22/18 07:23 50 11/22/18 07:21 92 25 60 11/22/18 05:01 90 29 60 11/22/18 04:00 40 11/22/18 04:00 Mechanical Ventilator 11/22/18 04:00 98 11/22/18 04:00 98.2 97 31 151/78 (102) 96 11/22/18 03:23 89 22 60 11/22/18 00:57 94 31 60 11/22/18 00:00 97.9 99 35 162/81 (108) 93 11/22/18 00:00 Mechanical Ventilator 11/22/18 00:00 96 11/21/18 22:34 110 29 60 11/21/18 21:06 89 28 60 11/21/18 20:00 40 11/21/18 20:00 Mechanical Ventilator 11/21/18 20:00 98.2 102 40 153/88 (109) 94 11/21/18 19:34 94 11/21/18 18:46 84 30 60 11/21/18 17:00 78 28 60 11/21/18 16:00 40 11/21/18 16:00 Mechanical Ventilator 11/21/18 16:00 99.5 100 30 160/87 (111) 96 11/21/18 15:38 86 11/21/18 15:07 92 26 60 Intake and Output 11/22/18 11/23/18 18:59 06:59 Intake Total 1415.0 ml 1376.00 ml Output Total 900 ml 400 ml Balance 515.0 ml 976.00 ml Intake Free Water 310 ml IV Total 925.0 ml 716.00 ml Tube Feeding 180 ml 660 ml Output Urine Total 900 ml 400 ml # Bowel Movements 8 2 Labs Test 11/21/18 03:00 11/22/18 01:00 11/23/18 04:00 11/23/18 07:50 White Blood Count 12.7 K/UL (4.8-10.8) 20.8 K/UL (4.8-10.8) 13.5 K/UL (4.8-10.8) Red Blood Count 3.33 M/UL (4.70-6.10) 3.63 M/UL (4.70-6.10) 3.05 M/UL (4.70-6.10) Hemoglobin 9.0 G/DL (14.2-18.0) 9.9 G/DL (14.2-18.0) 8.3 G/DL (14.2-18.0) Hematocrit 28.8 % (42.0-52.0) 31.5 % (42.0-52.0) 26.2 % (42.0-52.0) Mean Corpuscular Volume 87 FL (80-99) 87 FL (80-99) 86 FL (80-99) Mean Corpuscular Hemoglobin 27.0 PG (27.0-31.0) 27.2 PG (27.0-31.0) 27.4 PG (27.0-31.0) Mean Corpuscular Hemoglobin Concent 31.2 G/DL (32.0-36.0) 31.3 G/DL (32.0-36.0) 31.8 G/DL (32.0-36.0) Red Cell Distribution Width 15.6 % (11.6-14.8) 16.1 % (11.6-14.8) 15.5 % (11.6-14.8) Platelet Count 218 K/UL (150-450) 225 K/UL (150-450) 190 K/UL (150-450) Mean Platelet Volume 7.5 FL (6.5-10.1) 7.1 FL (6.5-10.1) 6.7 FL (6.5-10.1) Neutrophils (%) (Auto) 79.1 % (45.0-75.0) % (45.0-75.0) 78.3 % (45.0-75.0) Lymphocytes (%) (Auto) 9.6 % (20.0-45.0) % (20.0-45.0) 8.2 % (20.0-45.0) Monocytes (%) (Auto) 8.1 % (1.0-10.0) % (1.0-10.0) 11.2 % (1.0-10.0) Eosinophils (%) (Auto) 2.5 % (0.0-3.0) % (0.0-3.0) 1.8 % (0.0-3.0) Basophils (%) (Auto) 0.7 % (0.0-2.0) % (0.0-2.0) 0.5 % (0.0-2.0) Sodium Level 147 MMOL/L (136-145) 146 MMOL/L (136-145) 149 MMOL/L (136-145) 150 MMOL/L (136-145) Potassium Level 4.4 MMOL/L (3.5-5.1) 4.4 MMOL/L (3.5-5.1) 4.1 MMOL/L (3.5-5.1) 4.1 MMOL/L (3.5-5.1) Chloride Level 114 MMOL/L (98-107) 112 MMOL/L (98-107) 115 MMOL/L (98-107) 115 MMOL/L (98-107) Carbon Dioxide Level 29 MMOL/L (21-32) 31 MMOL/L (21-32) 31 MMOL/L (21-32) 30 MMOL/L (21-32) Anion Gap 4 mmol/L (5-15) 3 mmol/L (5-15) 3 mmol/L (5-15) 5 mmol/L (5-15) Blood Urea Nitrogen 15 mg/dL (7-18) 18 mg/dL (7-18) 17 mg/dL (7-18) 17 mg/dL (7-18) Creatinine 0.8 MG/DL (0.55-1.30) 0.9 MG/DL (0.55-1.30) 0.8 MG/DL (0.55-1.30) 0.9 MG/DL (0.55-1.30) Estimat Glomerular Filtration Rate mL/min (>60) mL/min (>60) mL/min (>60) mL/min (>60) Glucose Level 104 MG/DL (74-106) 101 MG/DL (74-106) 118 MG/DL (74-106) 126 MG/DL (74-106) Calcium Level 8.6 MG/DL (8.5-10.1) 8.8 MG/DL (8.5-10.1) 8.6 MG/DL (8.5-10.1) 8.7 MG/DL (8.5-10.1) Differential Total Cells Counted 100 Neutrophils % (Manual) 78 % (45-75) Lymphocytes % (Manual) 8 % (20-45) Monocytes % (Manual) 12 % (1-10) Eosinophils % (Manual) 2 % (0-3) Basophils % (Manual) 0 % (0-2) Band Neutrophils 0 % (0-8) Platelet Estimate Adequate Platelet Morphology Normal Prothrombin Time 10.6 SEC (9.30-11.50) Prothromb Time International Ratio 1.0 (0.9-1.1) Activated Partial Thromboplast Time 25 SEC (23-33) Phosphorus Level 3.3 MG/DL (2.5-4.9) Magnesium Level 1.8 MG/DL (1.8-2.4) Total Bilirubin 0.4 MG/DL (0.2-1.0) 0.4 MG/DL (0.2-1.0) Aspartate Amino Transf (AST/SGOT) 32 U/L (15-37) 31 U/L (15-37) Alanine Aminotransferase (ALT/SGPT) 122 U/L (12-78) 93 U/L (12-78) Alkaline Phosphatase 121 U/L (46-116) 126 U/L (46-116) C-Reactive Protein, Quantitative 6.4 mg/dL (0.00-0.90) Pro-B-Type Natriuretic Peptide 4739 pg/mL (0-125) Total Protein 7.0 G/DL (6.4-8.2) 6.5 G/DL (6.4-8.2) Albumin 2.3 G/DL (3.4-5.0) 2.0 G/DL (3.4-5.0) Globulin 4.7 g/dL 4.5 g/dL Albumin/Globulin Ratio 0.5 (1.0-2.7) 0.4 (1.0-2.7) Troponin I 0.078 ng/mL (0.000-0.056) Test 11/23/18 10:29 Arterial Blood pH 7.299 (7.350-7.450) Arterial Blood Partial Pressure CO2 58.9 mmHg (35.0-45.0) Arterial Blood Partial Pressure O2 72.9 mmHg (75.0-100.0) Arterial Blood HCO3 28.3 mmol/L (22.0-26.0) Arterial Blood Oxygen Saturation 93.4 % (95-100) Arterial Blood Base Excess 1.2 (-2-2) Ebenezer Test Positive Micro Microbiology Date/Time Source Procedure Growth Status 11/22/18 17:30 Indwelling Cath Urine Culture - Preliminary NO GROWTH Resulted Height (Feet): 5 Height (Inches): 5.00 Weight (Pounds): 165 Objective Vitals: reviewed Gen: no apparent distress Head: normocephalic EENT: normal ENT inspection Respiratory: other - intubated vent+ Cardiovascular: normal rate Gastrointestinal: gt - c/d/i Rectal: deferred Genitourinary: no CVA tenderness Skin: normal color +++ decub : ++ Beny Fields MD Nov 23, 2018 15:02
--- NOTE | 2018-11-23 16:32 | Cardiac Electrophysiology PN ---
Assessment/Plan Assessment/Plan 1. S/P Septic shock with white count of 50,000 and lactic acid of 6. On IV antibiotic and IV fluid . WBC was 20k on 11/22 and is down to 13k on Abx. 2. S/P multiple episodes of asystole with HR down to 10 and pauses of more than 10 seconds earlier today . Off any MCGEE or AVN blockers. Needs permanent pacer implantation. Patient is full code. DW Son with RN present on the phone Mr. Faraz Erickson at [phone]. He did not want the pacer until he consults with his sisters to make a final decision. If they agree, will need ID clearance. Start Dopamine 3 mcg/kg/min. Echo Nl EF. 3. Congestive heart failure with BNP of more than 17,000. Now BNP 3900 4. Troponin elevation, likely due to renal failure and anemia and septic shock. The levels are flat. EKG does not show any ST elevation. 5. S/P Acute renal failure. BUN of 48, creatinine of 2.5. Resolved BUN 15 and Cr now 0.8 6. Hypernatremia. Better with iv fluid 7. Ventilator-dependent respiratory failure, status post tracheostomy. 8. Dysphagia, status post PEG placement. 9. Profound anemia, hemoglobin of 6.5, rule out GI bleed. S/P blood transfusion. S/P EGD yesterday RICARDA RN, Dr. Matias and patient son Mr Faraz Erickson. Subjective Subjective Transferred to ICU for multiple long pauses of more than 10 seconds with asystole at 11.30 pm and at 2 AM, 3 AM and 5 AM. RN at bedside. Never started on pressors. Spontaneously converted to NSR. Still on iv Abx. CXR today worsening CHF Objective Last 24 Hour Vital Signs Date Time Temp Pulse Resp B/P (MAP) Pulse Ox O2 Delivery O2 Flow Rate FiO2 11/23/18 14:39 79 22 99 Mechanical Ventilator 50 80 22 50 11/23/18 12:59 91 22 50 11/23/18 12:00 87 11/23/18 12:00 50 11/23/18 12:00 98.1 80 27 123/62 (82) 97 11/23/18 12:00 Mechanical Ventilator 11/23/18 11:19 92 21 98 11/23/18 11:18 92 22 98 11/23/18 11:00 80 21 117/51 (73) 100 11/23/18 10:59 90 22 50 11/23/18 10:49 46 11/23/18 10:00 82 21 125/55 (78) 98 11/23/18 09:26 97.3 11/23/18 09:00 Mechanical Ventilator 11/23/18 09:00 98.0 86 25 142/66 (91) 98 11/23/18 08:35 92 24 50 11/23/18 08:10 90 11/23/18 08:00 Mechanical Ventilator 11/23/18 08:00 97.3 79 36 162/89 (113) 97 11/23/18 08:00 50 11/23/18 08:00 79 11/23/18 06:44 91 31 50 11/23/18 05:43 97 24 50 11/23/18 04:00 98.1 101 25 147/77 (100) 95 11/23/18 04:00 91 11/23/18 04:00 Mechanical Ventilator 11/23/18 04:00 50 11/23/18 03:31 97 22 50 11/23/18 01:32 92 26 50 11/23/18 00:00 98.6 87 22 147/69 (95) 97 11/23/18 00:00 Mechanical Ventilator 11/22/18 23:43 93 11/22/18 23:37 27 11/22/18 22:41 100 31 50 11/22/18 21:07 92 28 50 11/22/18 20:00 Mechanical Ventilator 11/22/18 20:00 99.0 90 36 149/69 (95) 100 11/22/18 20:00 50 11/22/18 19:24 91 11/22/18 19:08 92 32 50 11/22/18 17:18 89 27 50 11/22/18 17:00 Mechanical Ventilator Intake and Output 11/22/18 11/23/18 18:59 06:59 Intake Total 1415.0 ml 1376.00 ml Output Total 900 ml 400 ml Balance 515.0 ml 976.00 ml Intake Free Water 310 ml IV Total 925.0 ml 716.00 ml Tube Feeding 180 ml 660 ml Output Urine Total 900 ml 400 ml # Bowel Movements 8 2 Laboratory Tests Test 11/23/18 04:00 11/23/18 07:50 11/23/18 10:29 White Blood Count 13.5 K/UL (4.8-10.8) H Red Blood Count 3.05 M/UL (4.70-6.10) L Hemoglobin 8.3 G/DL (14.2-18.0) L Hematocrit 26.2 % (42.0-52.0) L Mean Corpuscular Volume 86 FL (80-99) Mean Corpuscular Hemoglobin 27.4 PG (27.0-31.0) Mean Corpuscular Hemoglobin Concent 31.8 G/DL (32.0-36.0) L Red Cell Distribution Width 15.5 % (11.6-14.8) H Platelet Count 190 K/UL (150-450) Mean Platelet Volume 6.7 FL (6.5-10.1) Neutrophils (%) (Auto) 78.3 % (45.0-75.0) H Lymphocytes (%) (Auto) 8.2 % (20.0-45.0) L Monocytes (%) (Auto) 11.2 % (1.0-10.0) H Eosinophils (%) (Auto) 1.8 % (0.0-3.0) Basophils (%) (Auto) 0.5 % (0.0-2.0) Sodium Level 149 MMOL/L (136-145) H 150 MMOL/L (136-145) H Potassium Level 4.1 MMOL/L (3.5-5.1) 4.1 MMOL/L (3.5-5.1) Chloride Level 115 MMOL/L (98-107) H 115 MMOL/L (98-107) H Carbon Dioxide Level 31 MMOL/L (21-32) 30 MMOL/L (21-32) Anion Gap 3 mmol/L (5-15) L 5 mmol/L (5-15) Blood Urea Nitrogen 17 mg/dL (7-18) 17 mg/dL (7-18) Creatinine 0.8 MG/DL (0.55-1.30) 0.9 MG/DL (0.55-1.30) Estimat Glomerular Filtration Rate mL/min (>60) mL/min (>60) Glucose Level 118 MG/DL (74-106) H 126 MG/DL (74-106) H Calcium Level 8.6 MG/DL (8.5-10.1) 8.7 MG/DL (8.5-10.1) Total Bilirubin 0.4 MG/DL (0.2-1.0) Aspartate Amino Transf (AST/SGOT) 31 U/L (15-37) Alanine Aminotransferase (ALT/SGPT) 93 U/L (12-78) H Alkaline Phosphatase 126 U/L (46-116) H Troponin I 0.078 ng/mL (0.000-0.056) Total Protein 6.5 G/DL (6.4-8.2) Albumin 2.0 G/DL (3.4-5.0) L Globulin 4.5 g/dL Albumin/Globulin Ratio 0.4 (1.0-2.7) L Arterial Blood pH 7.299 (7.350-7.450) Arterial Blood Partial Pressure CO2 58.9 mmHg (35.0-45.0) *H Arterial Blood Partial Pressure O2 72.9 mmHg (75.0-100.0) L Arterial Blood HCO3 28.3 mmol/L (22.0-26.0) H Arterial Blood Oxygen Saturation 93.4 % (95-100) L Arterial Blood Base Excess 1.2 (-2-2) Ebenezer Test Positive Microbiology Date/Time Source Procedure Growth Status 11/22/18 17:30 Indwelling Cath Urine Culture - Preliminary NO GROWTH Resulted Objective HEAD AND NECK: Tracheostomy intact. LUNGS: Coarse rhonchi.Decreased breath sounds CARDIOVASCULAR: Irregular irregular S1 and S2 with no gallop. ABDOMEN: Status post G-tube, distended. EXTREMITIES: Reveal 1+ edema. Luke Prather MD Nov 23, 2018 16:32
[2018-11-23] MEDS: DOPamine 400mg/250ml 250 ML IV SCH (16:49)
--- NOTE | 2018-11-23 17:21 | Surgery Progress Note ---
Surgery Progress Note Subjective Additional Comments transferred to ICU exam unchanged crabtree to stay in labs noted Objective Last 24 Hour Vital Signs Date Time Temp Pulse Resp B/P (MAP) Pulse Ox O2 Delivery O2 Flow Rate FiO2 11/23/18 16:49 123/62 11/23/18 16:33 40 11/23/18 16:29 86 31 50 11/23/18 14:39 79 22 99 Mechanical Ventilator 50 80 22 50 11/23/18 12:59 91 22 50 11/23/18 12:00 87 11/23/18 12:00 50 11/23/18 12:00 98.1 80 27 123/62 (82) 97 11/23/18 12:00 Mechanical Ventilator 11/23/18 11:19 92 21 98 11/23/18 11:18 92 22 98 11/23/18 11:00 80 21 117/51 (73) 100 11/23/18 10:59 90 22 50 11/23/18 10:49 46 11/23/18 10:00 82 21 125/55 (78) 98 11/23/18 09:26 97.3 11/23/18 09:00 Mechanical Ventilator 11/23/18 09:00 98.0 86 25 142/66 (91) 98 11/23/18 08:35 92 24 50 11/23/18 08:10 90 11/23/18 08:00 Mechanical Ventilator 11/23/18 08:00 97.3 79 36 162/89 (113) 97 11/23/18 08:00 50 11/23/18 08:00 79 11/23/18 06:44 91 31 50 11/23/18 05:43 97 24 50 11/23/18 04:00 98.1 101 25 147/77 (100) 95 11/23/18 04:00 91 11/23/18 04:00 Mechanical Ventilator 11/23/18 04:00 50 11/23/18 03:31 97 22 50 11/23/18 01:32 92 26 50 11/23/18 00:00 98.6 87 22 147/69 (95) 97 11/23/18 00:00 Mechanical Ventilator 11/22/18 23:43 93 11/22/18 23:37 27 11/22/18 22:41 100 31 50 11/22/18 21:07 92 28 50 11/22/18 20:00 Mechanical Ventilator 11/22/18 20:00 99.0 90 36 149/69 (95) 100 11/22/18 20:00 50 11/22/18 19:24 91 11/22/18 19:08 92 32 50 I&O Intake and Output 11/22/18 11/23/18 18:59 06:59 Intake Total 1415.0 ml 1376.00 ml Output Total 900 ml 400 ml Balance 515.0 ml 976.00 ml Intake Free Water 310 ml IV Total 925.0 ml 716.00 ml Tube Feeding 180 ml 660 ml Output Urine Total 900 ml 400 ml # Bowel Movements 8 2 Dressing: other Wound: other Drains: other Cardiovascular: RSR Respiratory: clear, decreased breath sounds Abdomen: soft, flat, present bowel sounds Extremities: no cyanosis, other Laboratory Tests Test 11/23/18 04:00 11/23/18 07:50 11/23/18 10:29 White Blood Count 13.5 K/UL (4.8-10.8) H Red Blood Count 3.05 M/UL (4.70-6.10) L Hemoglobin 8.3 G/DL (14.2-18.0) L Hematocrit 26.2 % (42.0-52.0) L Mean Corpuscular Volume 86 FL (80-99) Mean Corpuscular Hemoglobin 27.4 PG (27.0-31.0) Mean Corpuscular Hemoglobin Concent 31.8 G/DL (32.0-36.0) L Red Cell Distribution Width 15.5 % (11.6-14.8) H Platelet Count 190 K/UL (150-450) Mean Platelet Volume 6.7 FL (6.5-10.1) Neutrophils (%) (Auto) 78.3 % (45.0-75.0) H Lymphocytes (%) (Auto) 8.2 % (20.0-45.0) L Monocytes (%) (Auto) 11.2 % (1.0-10.0) H Eosinophils (%) (Auto) 1.8 % (0.0-3.0) Basophils (%) (Auto) 0.5 % (0.0-2.0) Sodium Level 149 MMOL/L (136-145) H 150 MMOL/L (136-145) H Potassium Level 4.1 MMOL/L (3.5-5.1) 4.1 MMOL/L (3.5-5.1) Chloride Level 115 MMOL/L (98-107) H 115 MMOL/L (98-107) H Carbon Dioxide Level 31 MMOL/L (21-32) 30 MMOL/L (21-32) Anion Gap 3 mmol/L (5-15) L 5 mmol/L (5-15) Blood Urea Nitrogen 17 mg/dL (7-18) 17 mg/dL (7-18) Creatinine 0.8 MG/DL (0.55-1.30) 0.9 MG/DL (0.55-1.30) Estimat Glomerular Filtration Rate mL/min (>60) mL/min (>60) Glucose Level 118 MG/DL (74-106) H 126 MG/DL (74-106) H Calcium Level 8.6 MG/DL (8.5-10.1) 8.7 MG/DL (8.5-10.1) Total Bilirubin 0.4 MG/DL (0.2-1.0) Aspartate Amino Transf (AST/SGOT) 31 U/L (15-37) Alanine Aminotransferase (ALT/SGPT) 93 U/L (12-78) H Alkaline Phosphatase 126 U/L (46-116) H Troponin I 0.078 ng/mL (0.000-0.056) Total Protein 6.5 G/DL (6.4-8.2) Albumin 2.0 G/DL (3.4-5.0) L Globulin 4.5 g/dL Albumin/Globulin Ratio 0.4 (1.0-2.7) L Arterial Blood pH 7.299 (7.350-7.450) Arterial Blood Partial Pressure CO2 58.9 mmHg (35.0-45.0) *H Arterial Blood Partial Pressure O2 72.9 mmHg (75.0-100.0) L Arterial Blood HCO3 28.3 mmol/L (22.0-26.0) H Arterial Blood Oxygen Saturation 93.4 % (95-100) L Arterial Blood Base Excess 1.2 (-2-2) Ebenezer Test Positive Plan Problems: (1) Severe sepsis Assessment & Plan: leukocytosis, anemia, lactic acidosis, fevers IV Abx imaging noted and reviewed US with no stones or dilated ducts elevated lft's likely due to liver disease exam as below cont abx trend labs leave [place] for a few weeks thank you will follow with recs (2) Malnutrition Assessment & Plan: DAILY ESTIMATED NEEDS: Needs based on Critical care, sepsis 71.8 kg 22-30 kcals/kg 4385-7231 total kcals 1.2-2 g protein/kg 86- 144 g total protein 25-30 mL/kg 1795- 2154 total fluid mLs NUTRITION DIAGNOSIS: * Swallowing difficulty R/T respiratory status and dysphagia as evidenced by pt is vent dep, on TF. * Altered nutrition related lab values r/t sepsis, clinical status, h/o Diabetes as evidenced by critically elev WBC (47.2), low Hgb (6.6), elev BNP, low BP (96/41), BG 191, POC 179. CURRENT TF: Jevity 1.2 @ 70mL/hr x 20hr - NOW NPO ENTERAL NUTRITION RECOMMENDATIONS: Vital 1.2 @55mL/hr x24 hrs to provide 1320mL, 1584kcal, 99g pro, 1071mL free H2O * As medically appropriate to feed, rec TF change to VITAL 1.2 for critical care. * Start Vital 1,2, @25mL, advance as tolerated 10ml/hr q4-6 hrs to goal * HOB over 30 degrees/ water flush per MD --- Low Hgb (6.6), NPO per GI-> rec trophic feeds when appropriate if pt remains hypotensive. ADDITIONAL RECOMMENDATIONS: * Per SNF: HT 68 inches WT 158 lbs + Daily calibrated bed scale wts * Change TF to Vital 1.2, as medically able to feed * Monitor lytes (replete as needed) * F/up w/ WC eval . (3) Sacral decubitus ulcer Assessment & Plan: Pt presented on admission with contractures and multiple pressure injuries. Partially opened DTPI L buttocks. Base of wound moist - viable with surrounding dark and fluctuant borders.(L)1.2cm x (W)1cm. Small amt of sanguineous exudate noted. No odor noted. Hyperpigmentation noted to sacrum. Historical scar from previous wound noted to L trochanter. Penile head retracted within foreskin and small wound noted within folds of foreskin. Wound is moist and viable. No odor or exudate noted. No erythema noted periwound. Resolving pressure injury plantar R heel. Base of wound 50% epithelialized, 50% moist and viable.(L)5.5cm x (W)6.5cm. Resolving pressure injury lateral L heel. Base of wound is moist and viable with surrounding hyperpigmentation.(L)0.6cm x (W)0.5cm. Scattered loose, dry brown skin noted to medial and posterior L heel. Tx.Plan: Apply Moisture Barrier Paste to L buttocks and sacrum. Cover with Optifoam drsg. Change every 3 days and prn. Cleanse head of penis with soap and water. Apply Bacitracin oint Twice Daily. Apply Betadine to R and L heel wounds. Cover each heel with Optifoam drsg. Daily and prn. APM/ABDELRAHMAN Mattress overlay. Reposition at least every 2hours and prn. Off-load heels with pillow. Don Carvalho Nov 23, 2018 17:21
[2018-11-23] MEDS: Dyna-Hex 2% Top Sol 2oz TOPIC SCH (20:05)
[2018-11-23] MEDS: Tamsulosin 0.4mg cap ORAL SCH (20:40)
[2018-11-24] VITALS (23 sets, daily range): BP systolic 123–183; BP diastolic 51–94
[2018-11-24] MEDS: Albuterol/Ipratropium 3ml neb HHN SCH ×6 (03:31→22:49)
[2018-11-24] MEDS: Piperacillin/Tazobactam 3.375 GM in NS 110 ML IVPB SCH ×3 (05:37→20:23)
[2018-11-24 06:15] LABS: BASOPHILS % (AUTO) 0.8 % (0.0-2.0); EOSINOPHILS % (AUTO) 2.8 % (0.0-3.0); HEMATOCRIT 26.8 % (42.0-52.0); HEMOGLOBIN 8.5 G/DL (14.2-18.0); LYMPHOCYTES % (AUTO) 11.5 % (20.0-45.0); MEAN CORPUSCULAR VOLUME 86 FL (80-99); MONOCYTES % (AUTO) 11.9 % (1.0-10.0); PLATELET COUNT 195 K/UL (150-450); RED BLOOD COUNT 3.13 M/UL (4.70-6.10); RED CELL DISTRIBUTION WIDTH 15.9 % (11.6-14.8); WHITE BLOOD COUNT 11.3 K/UL (4.8-10.8)
[2018-11-24] MEDS: NovoLOG Insulin Flexpen SUBQ SCH ×4 (06:25→20:38)
[2018-11-24 06:41] LABS: ALANINE AMINOTRANSFERASE 89 U/L (12-78); ALBUMIN/GLOBULIN RATIO 0.4 (1.0-2.7); ALKALINE PHOSPHATASE 117 U/L (46-116); ANION GAP 5 mmol/L (5-15); ASPARTATE AMINO TRANSFERASE 37 U/L (15-37); BILIRUBIN,TOTAL 0.4 MG/DL (0.2-1.0); BLOOD UREA NITROGEN 18 mg/dL (7-18); CALCIUM 8.8 MG/DL (8.5-10.1); CARBON DIOXIDE 31 MMOL/L (21-32); CHLORIDE 114 MMOL/L (98-107); CREATININE 0.9 MG/DL (0.55-1.30); PHOSPHORUS 3.1 MG/DL (2.5-4.9); POTASSIUM 3.9 MMOL/L (3.5-5.1); SODIUM 150 MMOL/L (136-145)
--- NOTE | 2018-11-24 10:51 | Surgery Progress Note ---
Surgery Progress Note Subjective Additional Comments Low-grade fevers, leukocytosis, anemia. Labs noted. Objective Last 24 Hour Vital Signs Date Time Temp Pulse Resp B/P (MAP) Pulse Ox O2 Delivery O2 Flow Rate FiO2 11/24/18 08:52 94 27 50 11/24/18 07:18 93 27 97 Mechanical Ventilator 50 94 25 50 11/24/18 06:00 75 25 155/70 (98) 92 11/24/18 06:00 95 22 145/73 (97) 95 11/24/18 06:00 145/73 11/24/18 05:00 95 34 147/68 (94) 96 11/24/18 05:00 96 22 50 11/24/18 05:00 147/68 11/24/18 04:00 Mechanical Ventilator 11/24/18 04:00 143/58 11/24/18 04:00 50 11/24/18 04:00 99.2 104 22 129/53 (78) 94 11/24/18 04:00 99 11/24/18 03:31 94 26 100 Mechanical Ventilator 50 95 22 50 11/24/18 03:00 96 26 129/53 (78) 93 11/24/18 03:00 129/53 11/24/18 02:00 145/59 11/24/18 02:00 97 34 145/59 (87) 91 11/24/18 01:00 95 34 132/92 (105) 96 11/24/18 01:00 152/68 11/24/18 01:00 100 24 50 11/24/18 00:00 50 11/24/18 00:00 99.5 93 34 123/87 (99) 94 11/24/18 00:00 93 11/24/18 00:00 129/56 11/24/18 00:00 Mechanical Ventilator 11/23/18 23:36 95 22 100 Mechanical Ventilator 50 95 22 50 11/23/18 23:00 90 24 133/57 (82) 94 11/23/18 23:00 133/57 11/23/18 22:00 131/60 11/23/18 22:00 94 35 131/60 (83) 98 11/23/18 21:00 93 35 50 11/23/18 21:00 94 32 136/57 (83) 92 11/23/18 21:00 132/64 11/23/18 20:00 99.2 90 28 131/64 (86) 92 11/23/18 20:00 130/60 11/23/18 20:00 91 11/23/18 20:00 50 11/23/18 20:00 Mechanical Ventilator 11/23/18 19:00 125/45 11/23/18 19:00 93 32 125/45 (71) 93 11/23/18 18:39 96 33 96 Mechanical Ventilator 50 96 33 50 11/23/18 18:00 93 30 121/57 (78) 93 11/23/18 18:00 121/57 11/23/18 17:00 132/56 11/23/18 17:00 99.0 84 27 132/56 (81) 96 11/23/18 16:49 123/62 11/23/18 16:33 40 11/23/18 16:29 86 31 50 11/23/18 16:00 Mechanical Ventilator 11/23/18 16:00 40 11/23/18 16:00 86 28 132/56 (81) 99 11/23/18 16:00 90 11/23/18 15:00 90 27 124/50 (74) 98 11/23/18 14:39 79 22 99 Mechanical Ventilator 50 80 22 50 11/23/18 14:00 81 28 135/57 (83) 98 11/23/18 13:00 80 27 120/53 (75) 99 11/23/18 12:59 91 22 50 11/23/18 12:00 87 11/23/18 12:00 50 11/23/18 12:00 98.1 80 27 123/62 (82) 97 11/23/18 12:00 Mechanical Ventilator 11/23/18 11:19 92 21 98 11/23/18 11:18 92 22 98 11/23/18 11:00 80 21 117/51 (73) 100 11/23/18 10:59 90 22 50 I&O Intake and Output 11/23/18 11/24/18 19:00 07:00 Intake Total 1792.76 ml 1395.12 ml Output Total 300 ml 455 ml Balance 1492.76 ml 940.12 ml Intake Free Water 320 ml 120 ml IV Total 812.76 ml 670.12 ml Tube Feeding 660 ml 605 ml Output Urine Total 300 ml 455 ml Dressing: saturated Wound: other Drains: other Cardiovascular: RSR Respiratory: decreased breath sounds Abdomen: soft, non-tender, decreased bowel sounds Extremities: no cyanosis, other Laboratory Tests Test 11/23/18 20:48 11/24/18 04:50 Arterial Blood pH 7.388 (7.350-7.450) Arterial Blood Partial Pressure CO2 48.8 mmHg (35.0-45.0) H Arterial Blood Partial Pressure O2 67.5 mmHg (75.0-100.0) L Arterial Blood HCO3 28.7 mmol/L (22.0-26.0) H Arterial Blood Oxygen Saturation 93.5 % (95-100) L Arterial Blood Base Excess 3.2 (-2-2) H Ebenezer Test Positive White Blood Count 11.3 K/UL (4.8-10.8) H Red Blood Count 3.13 M/UL (4.70-6.10) L Hemoglobin 8.5 G/DL (14.2-18.0) L Hematocrit 26.8 % (42.0-52.0) L Mean Corpuscular Volume 86 FL (80-99) Mean Corpuscular Hemoglobin 27.2 PG (27.0-31.0) Mean Corpuscular Hemoglobin Concent 31.7 G/DL (32.0-36.0) L Red Cell Distribution Width 15.9 % (11.6-14.8) H Platelet Count 195 K/UL (150-450) Mean Platelet Volume 6.8 FL (6.5-10.1) Neutrophils (%) (Auto) 73.0 % (45.0-75.0) Lymphocytes (%) (Auto) 11.5 % (20.0-45.0) L Monocytes (%) (Auto) 11.9 % (1.0-10.0) H Eosinophils (%) (Auto) 2.8 % (0.0-3.0) Basophils (%) (Auto) 0.8 % (0.0-2.0) Sodium Level 150 MMOL/L (136-145) H Potassium Level 3.9 MMOL/L (3.5-5.1) Chloride Level 114 MMOL/L (98-107) H Carbon Dioxide Level 31 MMOL/L (21-32) Anion Gap 5 mmol/L (5-15) Blood Urea Nitrogen 18 mg/dL (7-18) Creatinine 0.9 MG/DL (0.55-1.30) Estimat Glomerular Filtration Rate mL/min (>60) Glucose Level 113 MG/DL (74-106) H Calcium Level 8.8 MG/DL (8.5-10.1) Phosphorus Level 3.1 MG/DL (2.5-4.9) Magnesium Level 1.6 MG/DL (1.8-2.4) L Total Bilirubin 0.4 MG/DL (0.2-1.0) Aspartate Amino Transf (AST/SGOT) 37 U/L (15-37) Alanine Aminotransferase (ALT/SGPT) 89 U/L (12-78) H Alkaline Phosphatase 117 U/L (46-116) H C-Reactive Protein, Quantitative 11.0 mg/dL (0.00-0.90) H Pro-B-Type Natriuretic Peptide 3577 pg/mL (0-125) H Total Protein 6.6 G/DL (6.4-8.2) Albumin 2.0 G/DL (3.4-5.0) L Globulin 4.6 g/dL Albumin/Globulin Ratio 0.4 (1.0-2.7) L Plan Problems: (1) Severe sepsis Assessment & Plan: leukocytosis, anemia, lactic acidosis, fevers IV Abx imaging noted and reviewed US with no stones or dilated ducts elevated lft's likely due to liver disease exam as below cont abx trend labs leave [place] for a few weeks thank you will follow with recs (2) Malnutrition Assessment & Plan: DAILY ESTIMATED NEEDS: Needs based on Critical care, sepsis 71.8 kg 22-30 kcals/kg 6186-4625 total kcals 1.2-2 g protein/kg 86- 144 g total protein 25-30 mL/kg 1795- 2154 total fluid mLs NUTRITION DIAGNOSIS: * Swallowing difficulty R/T respiratory status and dysphagia as evidenced by pt is vent dep, on TF. * Altered nutrition related lab values r/t sepsis, clinical status, h/o Diabetes as evidenced by critically elev WBC (47.2), low Hgb (6.6), elev BNP, low BP (96/41), BG 191, POC 179. CURRENT TF: Jevity 1.2 @ 70mL/hr x 20hr - NOW NPO ENTERAL NUTRITION RECOMMENDATIONS: Vital 1.2 @55mL/hr x24 hrs to provide 1320mL, 1584kcal, 99g pro, 1071mL free H2O * As medically appropriate to feed, rec TF change to VITAL 1.2 for critical care. * Start Vital 1,2, @25mL, advance as tolerated 10ml/hr q4-6 hrs to goal * HOB over 30 degrees/ water flush per MD --- Low Hgb (6.6), NPO per GI-> rec trophic feeds when appropriate if pt remains hypotensive. ADDITIONAL RECOMMENDATIONS: * Per SNF: HT 68 inches WT 158 lbs + Daily calibrated bed scale wts * Change TF to Vital 1.2, as medically able to feed * Monitor lytes (replete as needed) * F/up w/ WC eval . (3) Sacral decubitus ulcer Assessment & Plan: Pt presented on admission with contractures and multiple pressure injuries. Partially opened DTPI L buttocks. Base of wound moist - viable with surrounding dark and fluctuant borders.(L)1.2cm x (W)1cm. Small amt of sanguineous exudate noted. No odor noted. Hyperpigmentation noted to sacrum. Historical scar from previous wound noted to L trochanter. Penile head retracted within foreskin and small wound noted within folds of foreskin. Wound is moist and viable. No odor or exudate noted. No erythema noted periwound. Resolving pressure injury plantar R heel. Base of wound 50% epithelialized, 50% moist and viable.(L)5.5cm x (W)6.5cm. Resolving pressure injury lateral L heel. Base of wound is moist and viable with surrounding hyperpigmentation.(L)0.6cm x (W)0.5cm. Scattered loose, dry brown skin noted to medial and posterior L heel. Tx.Plan: Apply Moisture Barrier Paste to L buttocks and sacrum. Cover with Optifoam drsg. Change every 3 days and prn. Cleanse head of penis with soap and water. Apply Bacitracin oint Twice Daily. Apply Betadine to R and L heel wounds. Cover each heel with Optifoam drsg. Daily and prn. APM/ABDELRAHMAN Mattress overlay. Reposition at least every 2hours and prn. Off-load heels with pillow. Don Carvalho Nov 24, 2018 10:51
[2018-11-24] MEDS: Doxycycline Hyclate 100 MG in D5W 110 ML IV SCH (10:55)
[2018-11-24] MEDS: Pantoprazole Inj IVP SCH ×2 (10:56→20:23)
[2018-11-24] MEDS: ZyPREXA Zydis 5mg tab GT SCH (10:56)
--- NOTE | 2018-11-24 11:09 | Critical Care Progress Note ---
Assessment/Plan Assessment/Plan Impression: ho Pneumonia Ventilator dependant respiratory failure chronic respiratory failure Severe sepsis -history of NSTEMI Anemia Dysphagia s/p G tube Chronic wounds Dementia Organic Brain Syndrome Diabetes Chronic renal disease BPH Penile wound CHF H/o Hypertension severe Protein Calorie Malnutrition Plan IV antibiotics monitor hemodynamics HHN Q4 on full vent support-AC for now monitor oxygen needs- and adjust Transfuse PRN DVT and PUD prophylaxis Gtube feeds as is monitor residuals Aspiration precautions Full Code noted multiorgan disease remains critical at present medications/laboratory data/nursing notes/ICU care reviewed in detail note reviewed and edited care discussed with RN and RT ICU time spent 42 minutes Critical Care - Subjective Interval Events: all care noted in ICU critical multiorgan disease ROS Limited/Unobtainable: Yes Condition: critical EKG Rhythm: Sinus Rhythm Residuals: minimal Tube Feeding Tolerated: yes I&O: Intake and Output 11/23/18 11/24/18 19:00 07:00 Intake Total 1792.76 ml 1395.12 ml Output Total 300 ml 455 ml Balance 1492.76 ml 940.12 ml Intake Free Water 320 ml 120 ml IV Total 812.76 ml 670.12 ml Tube Feeding 660 ml 605 ml Output Urine Total 300 ml 455 ml Critical Care - Objective Last 24 Hour Vital Signs Date Time Temp Pulse Resp B/P (MAP) Pulse Ox O2 Delivery O2 Flow Rate FiO2 11/24/18 10:00 94 32 154/73 (100) 94 11/24/18 09:00 99 35 152/64 (93) 97 11/24/18 08:52 94 27 50 11/24/18 08:00 98.9 28 143/67 (92) 94 11/24/18 07:18 93 27 97 Mechanical Ventilator 50 94 25 50 11/24/18 06:00 75 25 155/70 (98) 92 11/24/18 06:00 95 22 145/73 (97) 95 11/24/18 06:00 145/73 11/24/18 05:00 95 34 147/68 (94) 96 11/24/18 05:00 96 22 50 11/24/18 05:00 147/68 11/24/18 04:00 Mechanical Ventilator 11/24/18 04:00 143/58 11/24/18 04:00 50 11/24/18 04:00 99.2 104 22 129/53 (78) 94 11/24/18 04:00 99 11/24/18 03:31 94 26 100 Mechanical Ventilator 50 95 22 50 11/24/18 03:00 96 26 129/53 (78) 93 11/24/18 03:00 129/53 11/24/18 02:00 145/59 11/24/18 02:00 97 34 145/59 (87) 91 11/24/18 01:00 95 34 132/92 (105) 96 11/24/18 01:00 152/68 11/24/18 01:00 100 24 50 11/24/18 00:00 50 11/24/18 00:00 99.5 93 34 123/87 (99) 94 11/24/18 00:00 93 11/24/18 00:00 129/56 11/24/18 00:00 Mechanical Ventilator 11/23/18 23:36 95 22 100 Mechanical Ventilator 50 95 22 50 11/23/18 23:00 90 24 133/57 (82) 94 11/23/18 23:00 133/57 11/23/18 22:00 131/60 11/23/18 22:00 94 35 131/60 (83) 98 11/23/18 21:00 93 35 50 11/23/18 21:00 94 32 136/57 (83) 92 11/23/18 21:00 132/64 11/23/18 20:00 99.2 90 28 131/64 (86) 92 11/23/18 20:00 130/60 11/23/18 20:00 91 11/23/18 20:00 50 11/23/18 20:00 Mechanical Ventilator 11/23/18 19:00 125/45 11/23/18 19:00 93 32 125/45 (71) 93 11/23/18 18:39 96 33 96 Mechanical Ventilator 50 96 33 50 11/23/18 18:00 93 30 121/57 (78) 93 11/23/18 18:00 121/57 19 17:00 132/56 11/23/18 17:00 99.0 84 27 132/56 (81) 96 11/23/18 16:49 123/62 19 16:33 40 11/23/18 16:29 86 31 50 11/23/18 16:00 Mechanical Ventilator 11/23/18 16:00 40 10/18/19 16:00 86 28 132/56 (81) 99 11/23/18 16:00 90 11/23/18 15:00 90 27 124/50 (74) 98 11/23/18 14:39 79 22 99 Mechanical Ventilator 50 80 22 50 11/23/18 14:00 81 28 135/57 (83) 98 11/23/18 13:00 80 27 120/53 (75) 99 11/23/18 12:59 91 22 50 11/23/18 12:00 87 11/23/18 12:00 50 11/23/18 12:00 98.1 80 27 123/62 (82) 97 11/23/18 12:00 Mechanical Ventilator 11/23/18 11:19 92 21 98 11/23/18 11:18 92 22 98 Labs: Labs Test 11/22/18 01:00 11/23/18 04:00 11/23/18 07:50 11/23/18 10:29 White Blood Count 20.8 K/UL (4.8-10.8) 13.5 K/UL (4.8-10.8) Red Blood Count 3.63 M/UL (4.70-6.10) 3.05 M/UL (4.70-6.10) Hemoglobin 9.9 G/DL (14.2-18.0) 8.3 G/DL (14.2-18.0) Hematocrit 31.5 % (42.0-52.0) 26.2 % (42.0-52.0) Mean Corpuscular Volume 87 FL (80-99) 86 FL (80-99) Mean Corpuscular Hemoglobin 27.2 PG (27.0-31.0) 27.4 PG (27.0-31.0) Mean Corpuscular Hemoglobin Concent 31.3 G/DL (32.0-36.0) 31.8 G/DL (32.0-36.0) Red Cell Distribution Width 16.1 % (11.6-14.8) 15.5 % (11.6-14.8) Platelet Count 225 K/UL (150-450) 190 K/UL (150-450) Mean Platelet Volume 7.1 FL (6.5-10.1) 6.7 FL (6.5-10.1) Neutrophils (%) (Auto) % (45.0-75.0) 78.3 % (45.0-75.0) Lymphocytes (%) (Auto) % (20.0-45.0) 8.2 % (20.0-45.0) Monocytes (%) (Auto) % (1.0-10.0) 11.2 % (1.0-10.0) Eosinophils (%) (Auto) % (0.0-3.0) 1.8 % (0.0-3.0) Basophils (%) (Auto) % (0.0-2.0) 0.5 % (0.0-2.0) Differential Total Cells Counted 100 Neutrophils % (Manual) 78 % (45-75) Lymphocytes % (Manual) 8 % (20-45) Monocytes % (Manual) 12 % (1-10) Eosinophils % (Manual) 2 % (0-3) Basophils % (Manual) 0 % (0-2) Band Neutrophils 0 % (0-8) Platelet Estimate Adequate Platelet Morphology Normal Prothrombin Time 10.6 SEC (9.30-11.50) Prothromb Time International Ratio 1.0 (0.9-1.1) Activated Partial Thromboplast Time 25 SEC (23-33) Sodium Level 146 MMOL/L (136-145) 149 MMOL/L (136-145) 150 MMOL/L (136-145) Potassium Level 4.4 MMOL/L (3.5-5.1) 4.1 MMOL/L (3.5-5.1) 4.1 MMOL/L (3.5-5.1) Chloride Level 112 MMOL/L (98-107) 115 MMOL/L (98-107) 115 MMOL/L (98-107) Carbon Dioxide Level 31 MMOL/L (21-32) 31 MMOL/L (21-32) 30 MMOL/L (21-32) Anion Gap 3 mmol/L (5-15) 3 mmol/L (5-15) 5 mmol/L (5-15) Blood Urea Nitrogen 18 mg/dL (7-18) 17 mg/dL (7-18) 17 mg/dL (7-18) Creatinine 0.9 MG/DL (0.55-1.30) 0.8 MG/DL (0.55-1.30) 0.9 MG/DL (0.55-1.30) Estimat Glomerular Filtration Rate mL/min (>60) mL/min (>60) mL/min (>60) Glucose Level 101 MG/DL (74-106) 118 MG/DL (74-106) 126 MG/DL (74-106) Calcium Level 8.8 MG/DL (8.5-10.1) 8.6 MG/DL (8.5-10.1) 8.7 MG/DL (8.5-10.1) Phosphorus Level 3.3 MG/DL (2.5-4.9) Magnesium Level 1.8 MG/DL (1.8-2.4) Total Bilirubin 0.4 MG/DL (0.2-1.0) 0.4 MG/DL (0.2-1.0) Aspartate Amino Transf (AST/SGOT) 32 U/L (15-37) 31 U/L (15-37) Alanine Aminotransferase (ALT/SGPT) 122 U/L (12-78) 93 U/L (12-78) Alkaline Phosphatase 121 U/L (46-116) 126 U/L (46-116) C-Reactive Protein, Quantitative 6.4 mg/dL (0.00-0.90) Pro-B-Type Natriuretic Peptide 4739 pg/mL (0-125) Total Protein 7.0 G/DL (6.4-8.2) 6.5 G/DL (6.4-8.2) Albumin 2.3 G/DL (3.4-5.0) 2.0 G/DL (3.4-5.0) Globulin 4.7 g/dL 4.5 g/dL Albumin/Globulin Ratio 0.5 (1.0-2.7) 0.4 (1.0-2.7) Troponin I 0.078 ng/mL (0.000-0.056) Arterial Blood pH 7.299 (7.350-7.450) Arterial Blood Partial Pressure CO2 58.9 mmHg (35.0-45.0) Arterial Blood Partial Pressure O2 72.9 mmHg (75.0-100.0) Arterial Blood HCO3 28.3 mmol/L (22.0-26.0) Arterial Blood Oxygen Saturation 93.4 % (95-100) Arterial Blood Base Excess 1.2 (-2-2) Ebenezer Test Positive Test 11/23/18 20:48 11/24/18 04:50 Arterial Blood pH 7.388 (7.350-7.450) Arterial Blood Partial Pressure CO2 48.8 mmHg (35.0-45.0) Arterial Blood Partial Pressure O2 67.5 mmHg (75.0-100.0) Arterial Blood HCO3 28.7 mmol/L (22.0-26.0) Arterial Blood Oxygen Saturation 93.5 % (95-100) Arterial Blood Base Excess 3.2 (-2-2) Ebenezer Test Positive White Blood Count 11.3 K/UL (4.8-10.8) Red Blood Count 3.13 M/UL (4.70-6.10) Hemoglobin 8.5 G/DL (14.2-18.0) Hematocrit 26.8 % (42.0-52.0) Mean Corpuscular Volume 86 FL (80-99) Mean Corpuscular Hemoglobin 27.2 PG (27.0-31.0) Mean Corpuscular Hemoglobin Concent 31.7 G/DL (32.0-36.0) Red Cell Distribution Width 15.9 % (11.6-14.8) Platelet Count 195 K/UL (150-450) Mean Platelet Volume 6.8 FL (6.5-10.1) Neutrophils (%) (Auto) 73.0 % (45.0-75.0) Lymphocytes (%) (Auto) 11.5 % (20.0-45.0) Monocytes (%) (Auto) 11.9 % (1.0-10.0) Eosinophils (%) (Auto) 2.8 % (0.0-3.0) Basophils (%) (Auto) 0.8 % (0.0-2.0) Sodium Level 150 MMOL/L (136-145) Potassium Level 3.9 MMOL/L (3.5-5.1) Chloride Level 114 MMOL/L (98-107) Carbon Dioxide Level 31 MMOL/L (21-32) Anion Gap 5 mmol/L (5-15) Blood Urea Nitrogen 18 mg/dL (7-18) Creatinine 0.9 MG/DL (0.55-1.30) Estimat Glomerular Filtration Rate mL/min (>60) Glucose Level 113 MG/DL (74-106) Calcium Level 8.8 MG/DL (8.5-10.1) Phosphorus Level 3.1 MG/DL (2.5-4.9) Magnesium Level 1.6 MG/DL (1.8-2.4) Total Bilirubin 0.4 MG/DL (0.2-1.0) Aspartate Amino Transf (AST/SGOT) 37 U/L (15-37) Alanine Aminotransferase (ALT/SGPT) 89 U/L (12-78) Alkaline Phosphatase 117 U/L (46-116) C-Reactive Protein, Quantitative 11.0 mg/dL (0.00-0.90) Pro-B-Type Natriuretic Peptide 3577 pg/mL (0-125) Total Protein 6.6 G/DL (6.4-8.2) Albumin 2.0 G/DL (3.4-5.0) Globulin 4.6 g/dL Albumin/Globulin Ratio 0.4 (1.0-2.7) Objective: WDWN NAD on vent reduced breath sounds bilaterally with scattered rhonchi [id number] without MRG NABS nontender no HSM; GT no CC mild edema nonfocal reduced LOC reviewed and edited Micro: Microbiology Date/Time Source Procedure Growth Status 11/22/18 17:30 Indwelling Cath Urine Culture - Preliminary NO GROWTH AFTER 24 HOURS Resulted Accucheck: 137 Chele Wolfe MD Nov 24, 2018 11:09
--- NOTE | 2018-11-24 14:34 | Cardiac Electrophysiology PN ---
Assessment/Plan Assessment/Plan 1. S/P Septic shock with white count of 50,000 and lactic acid of 6. On IV antibiotic and IV fluid . WBC was 20k on 11/22 and is down to 13k on Abx. 2. S/P multiple episodes of asystole with HR down to 10 and pauses of more than 10 seconds earlier today . Off any MCGEE or AVN blockers. Needs permanent pacer implantation. Patient is full code. DW Son with RN present on the phone Mr. Faraz Erickson on 11/23/18 at [phone]. He did not want the pacer until he consults with his sisters to make a final decision. If they agree, will need ID clearance. Still on Dopamine 3 mcg/kg/min. Echo Nl EF. 3. Congestive heart failure with BNP of more than 17,000. Now BNP 3900 4. Troponin elevation, likely due to renal failure and anemia and septic shock. The levels are flat. EKG does not show any ST elevation. 5. S/P Acute renal failure. BUN of 48, creatinine of 2.5. Resolved BUN 15 and Cr now 0.8 6. Hypernatremia. Better with iv fluid 7. Ventilator-dependent respiratory failure, status post tracheostomy. 8. Dysphagia, status post PEG placement. 9. Profound anemia, hemoglobin of 6.5, rule out GI bleed. S/P blood transfusion. S/P EGD RICARDA RN, Dr. Matias and patient son Mr Faraz Erickson again by MARTI Childers Awaiting family consent and ID clearance for PPM implant Subjective Subjective Had another > 9second pause at 6.40 am today in ICU Spontaneously converted to NSR. Still on iv Abx. FAmily still undecided re PPM implant Objective Last 24 Hour Vital Signs Date Time Temp Pulse Resp B/P (MAP) Pulse Ox O2 Delivery O2 Flow Rate FiO2 11/24/18 14:00 91 28 144/59 (87) 93 11/24/18 13:00 88 25 137/58 (84) 94 11/24/18 12:54 87 26 50 11/24/18 12:00 99.0 91 25 129/51 (77) 96 11/24/18 12:00 50 11/24/18 11:00 96 35 183/94 (123) 96 11/24/18 10:59 112 26 94 Mechanical Ventilator 50 106 24 50 11/24/18 10:00 94 32 154/73 (100) 94 11/24/18 09:00 99 35 152/64 (93) 97 11/24/18 08:52 94 27 50 11/24/18 08:00 98.9 28 143/67 (92) 94 11/24/18 08:00 50 11/24/18 07:18 93 27 97 Mechanical Ventilator 50 94 25 50 11/24/18 06:00 75 25 155/70 (98) 92 11/24/18 06:00 95 22 145/73 (97) 95 11/24/18 06:00 145/73 11/24/18 05:00 95 34 147/68 (94) 96 11/24/18 05:00 96 22 50 11/24/18 05:00 147/68 11/24/18 04:00 Mechanical Ventilator 11/24/18 04:00 143/58 11/24/18 04:00 50 11/24/18 04:00 99.2 104 22 129/53 (78) 94 11/24/18 04:00 99 11/24/18 03:31 94 26 100 Mechanical Ventilator 50 95 22 50 11/24/18 03:00 96 26 129/53 (78) 93 11/24/18 03:00 129/53 11/24/18 02:00 145/59 11/24/18 02:00 97 34 145/59 (87) 91 11/24/18 01:00 95 34 132/92 (105) 96 11/24/18 01:00 152/68 11/24/18 01:00 100 24 50 11/24/18 00:00 50 11/24/18 00:00 99.5 93 34 123/87 (99) 94 11/24/18 00:00 93 11/24/18 00:00 129/56 11/24/18 00:00 Mechanical Ventilator 11/23/18 23:36 95 22 100 Mechanical Ventilator 50 95 22 50 11/23/18 23:00 90 24 133/57 (82) 94 11/23/18 23:00 133/57 11/23/18 22:00 131/60 11/23/18 22:00 94 35 131/60 (83) 98 11/23/18 21:00 93 35 50 11/23/18 21:00 94 32 136/57 (83) 92 11/23/18 21:00 132/64 11/23/18 20:00 99.2 90 28 131/64 (86) 92 11/23/18 20:00 130/60 11/23/18 20:00 91 11/23/18 20:00 50 11/23/18 20:00 Mechanical Ventilator 11/23/18 19:00 125/45 11/23/18 19:00 93 32 125/45 (71) 93 11/23/18 18:39 96 33 96 Mechanical Ventilator 50 96 33 50 11/23/18 18:00 93 30 121/57 (78) 93 11/23/18 18:00 121/57 11/23/18 17:00 132/56 11/23/18 17:00 99.0 84 27 132/56 (81) 96 11/23/18 16:49 123/62 11/23/18 16:33 40 11/23/18 16:29 86 31 50 11/23/18 16:00 Mechanical Ventilator 11/23/18 16:00 40 11/23/18 16:00 86 28 132/56 (81) 99 11/23/18 16:00 90 11/23/18 15:00 90 27 124/50 (74) 98 11/23/18 14:39 79 22 99 Mechanical Ventilator 50 80 22 50 Intake and Output 11/23/18 11/24/18 19:00 07:00 Intake Total 1792.76 ml 1395.12 ml Output Total 300 ml 455 ml Balance 1492.76 ml 940.12 ml Intake Free Water 320 ml 120 ml IV Total 812.76 ml 670.12 ml Tube Feeding 660 ml 605 ml Output Urine Total 300 ml 455 ml Laboratory Tests Test 11/23/18 20:48 11/24/18 04:50 Arterial Blood pH 7.388 (7.350-7.450) Arterial Blood Partial Pressure CO2 48.8 mmHg (35.0-45.0) H Arterial Blood Partial Pressure O2 67.5 mmHg (75.0-100.0) L Arterial Blood HCO3 28.7 mmol/L (22.0-26.0) H Arterial Blood Oxygen Saturation 93.5 % (95-100) L Arterial Blood Base Excess 3.2 (-2-2) H Ebenezer Test Positive White Blood Count 11.3 K/UL (4.8-10.8) H Red Blood Count 3.13 M/UL (4.70-6.10) L Hemoglobin 8.5 G/DL (14.2-18.0) L Hematocrit 26.8 % (42.0-52.0) L Mean Corpuscular Volume 86 FL (80-99) Mean Corpuscular Hemoglobin 27.2 PG (27.0-31.0) Mean Corpuscular Hemoglobin Concent 31.7 G/DL (32.0-36.0) L Red Cell Distribution Width 15.9 % (11.6-14.8) H Platelet Count 195 K/UL (150-450) Mean Platelet Volume 6.8 FL (6.5-10.1) Neutrophils (%) (Auto) 73.0 % (45.0-75.0) Lymphocytes (%) (Auto) 11.5 % (20.0-45.0) L Monocytes (%) (Auto) 11.9 % (1.0-10.0) H Eosinophils (%) (Auto) 2.8 % (0.0-3.0) Basophils (%) (Auto) 0.8 % (0.0-2.0) Sodium Level 150 MMOL/L (136-145) H Potassium Level 3.9 MMOL/L (3.5-5.1) Chloride Level 114 MMOL/L (98-107) H Carbon Dioxide Level 31 MMOL/L (21-32) Anion Gap 5 mmol/L (5-15) Blood Urea Nitrogen 18 mg/dL (7-18) Creatinine 0.9 MG/DL (0.55-1.30) Estimat Glomerular Filtration Rate mL/min (>60) Glucose Level 113 MG/DL (74-106) H Calcium Level 8.8 MG/DL (8.5-10.1) Phosphorus Level 3.1 MG/DL (2.5-4.9) Magnesium Level 1.6 MG/DL (1.8-2.4) L Total Bilirubin 0.4 MG/DL (0.2-1.0) Aspartate Amino Transf (AST/SGOT) 37 U/L (15-37) Alanine Aminotransferase (ALT/SGPT) 89 U/L (12-78) H Alkaline Phosphatase 117 U/L (46-116) H C-Reactive Protein, Quantitative 11.0 mg/dL (0.00-0.90) H Pro-B-Type Natriuretic Peptide 3577 pg/mL (0-125) H Total Protein 6.6 G/DL (6.4-8.2) Albumin 2.0 G/DL (3.4-5.0) L Globulin 4.6 g/dL Albumin/Globulin Ratio 0.4 (1.0-2.7) L Microbiology Date/Time Source Procedure Growth Status 11/22/18 17:30 Indwelling Cath Urine Culture - Preliminary NO GROWTH AFTER 24 HOURS Resulted Objective HEAD AND NECK: Tracheostomy intact. LUNGS: Coarse rhonchi.Decreased breath sounds CARDIOVASCULAR: Irregular irregular S1 and S2 with no gallop. ABDOMEN: Status post G-tube, distended. EXTREMITIES: Reveal 1+ edema. Luke Prather MD Nov 24, 2018 14:34
--- NOTE | 2018-11-24 15:24 | Infectious Diseases Prog Note ---
Assessment/Plan Assessment/Plan IMPRESSION: Sepsis, Pyuria/ UTI Pneumonia BPH, ventilator-dependent respiratory failure Leukemoid reaction,resolved Acute renal failure, improving Diabetes mellitus, anemia, hypoxemic respiratory failure, dementia. 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 Discontinue Doxycycline Clear for pacemaker placement Subjective ROS Limited/Unobtainable: Yes Cardiovascular: Reports: other - has cardiac pause, on low dose Dopamine Allergies: Coded Allergies: TERAZOSIN (Verified Allergy, Unknown, 10/27/17) Objective Vital Signs Last 24 Hour Vital Signs Date Time Temp Pulse Resp B/P (MAP) Pulse Ox O2 Delivery O2 Flow Rate FiO2 11/24/18 14:00 91 28 144/59 (87) 93 11/24/18 13:00 88 25 137/58 (84) 94 11/24/18 12:54 87 26 50 11/24/18 12:00 99.0 91 25 129/51 (77) 96 11/24/18 12:00 50 11/24/18 11:00 96 35 183/94 (123) 96 11/24/18 10:59 112 26 94 Mechanical Ventilator 50 106 24 50 11/24/18 10:00 94 32 154/73 (100) 94 11/24/18 09:00 99 35 152/64 (93) 97 11/24/18 08:52 94 27 50 11/24/18 08:00 98.9 28 143/67 (92) 94 11/24/18 08:00 50 11/24/18 07:18 93 27 97 Mechanical Ventilator 50 94 25 50 11/24/18 06:00 75 25 155/70 (98) 92 11/24/18 06:00 95 22 145/73 (97) 95 11/24/18 06:00 145/73 11/24/18 05:00 95 34 147/68 (94) 96 11/24/18 05:00 96 22 50 11/24/18 05:00 147/68 11/24/18 04:00 Mechanical Ventilator 11/24/18 04:00 143/58 11/24/18 04:00 50 11/24/18 04:00 99.2 104 22 129/53 (78) 94 11/24/18 04:00 99 11/24/18 03:31 94 26 100 Mechanical Ventilator 50 95 22 50 11/24/18 03:00 96 26 129/53 (78) 93 11/24/18 03:00 129/53 11/24/18 02:00 145/59 11/24/18 02:00 97 34 145/59 (87) 91 11/24/18 01:00 95 34 132/92 (105) 96 11/24/18 01:00 152/68 11/24/18 01:00 100 24 50 11/24/18 00:00 50 11/24/18 00:00 99.5 93 34 123/87 (99) 94 11/24/18 00:00 93 11/24/18 00:00 129/56 11/24/18 00:00 Mechanical Ventilator 11/23/18 23:36 95 22 100 Mechanical Ventilator 50 95 22 50 11/23/18 23:00 90 24 133/57 (82) 94 11/23/18 23:00 133/57 11/23/18 22:00 131/60 11/23/18 22:00 94 35 131/60 (83) 98 11/23/18 21:00 93 35 50 11/23/18 21:00 94 32 136/57 (83) 92 11/23/18 21:00 132/64 11/23/18 20:00 99.2 90 28 131/64 (86) 92 11/23/18 20:00 130/60 11/23/18 20:00 91 11/23/18 20:00 50 11/23/18 20:00 Mechanical Ventilator 11/23/18 19:00 125/45 11/23/18 19:00 93 32 125/45 (71) 93 11/23/18 18:39 96 33 96 Mechanical Ventilator 50 96 33 50 11/23/18 18:00 93 30 121/57 (78) 93 11/23/18 18:00 121/57 11/23/18 17:00 132/56 11/23/18 17:00 99.0 84 27 132/56 (81) 96 19 16:49 123/62 11/23/18 16:33 40 11/23/18 16:29 86 31 50 11/23/18 16:00 Mechanical Ventilator 11/23/18 16:00 40 11/23/18 16:00 86 28 132/56 (81) 99 11/23/18 16:00 90 Height (Feet): 5 Height (Inches): 5.00 Weight (Pounds): 165 HEENT: status post trach Respiratory/Chest: lungs clear, other - on ventilator Cardiovascular: normal rate, other - PICC line Abdomen: soft, non tender, other - GT feeding Extremities: other - generalized edema Neurologic/Psychiatric: aphasia Microbiology Date/Time Source Procedure Growth Status 11/22/18 17:30 Indwelling Cath Urine Culture - Preliminary NO GROWTH AFTER 24 HOURS Resulted Laboratory Tests Test 11/23/18 20:48 11/24/18 04:50 Arterial Blood pH 7.388 (7.350-7.450) Arterial Blood Partial Pressure CO2 48.8 mmHg (35.0-45.0) H Arterial Blood Partial Pressure O2 67.5 mmHg (75.0-100.0) L Arterial Blood HCO3 28.7 mmol/L (22.0-26.0) H Arterial Blood Oxygen Saturation 93.5 % (95-100) L Arterial Blood Base Excess 3.2 (-2-2) H Ebenezer Test Positive White Blood Count 11.3 K/UL (4.8-10.8) H Red Blood Count 3.13 M/UL (4.70-6.10) L Hemoglobin 8.5 G/DL (14.2-18.0) L Hematocrit 26.8 % (42.0-52.0) L Mean Corpuscular Volume 86 FL (80-99) Mean Corpuscular Hemoglobin 27.2 PG (27.0-31.0) Mean Corpuscular Hemoglobin Concent 31.7 G/DL (32.0-36.0) L Red Cell Distribution Width 15.9 % (11.6-14.8) H Platelet Count 195 K/UL (150-450) Mean Platelet Volume 6.8 FL (6.5-10.1) Neutrophils (%) (Auto) 73.0 % (45.0-75.0) Lymphocytes (%) (Auto) 11.5 % (20.0-45.0) L Monocytes (%) (Auto) 11.9 % (1.0-10.0) H Eosinophils (%) (Auto) 2.8 % (0.0-3.0) Basophils (%) (Auto) 0.8 % (0.0-2.0) Sodium Level 150 MMOL/L (136-145) H Potassium Level 3.9 MMOL/L (3.5-5.1) Chloride Level 114 MMOL/L (98-107) H Carbon Dioxide Level 31 MMOL/L (21-32) Anion Gap 5 mmol/L (5-15) Blood Urea Nitrogen 18 mg/dL (7-18) Creatinine 0.9 MG/DL (0.55-1.30) Estimat Glomerular Filtration Rate mL/min (>60) Glucose Level 113 MG/DL (74-106) H Calcium Level 8.8 MG/DL (8.5-10.1) Phosphorus Level 3.1 MG/DL (2.5-4.9) Magnesium Level 1.6 MG/DL (1.8-2.4) L Total Bilirubin 0.4 MG/DL (0.2-1.0) Aspartate Amino Transf (AST/SGOT) 37 U/L (15-37) Alanine Aminotransferase (ALT/SGPT) 89 U/L (12-78) H Alkaline Phosphatase 117 U/L (46-116) H C-Reactive Protein, Quantitative 11.0 mg/dL (0.00-0.90) H Pro-B-Type Natriuretic Peptide 3577 pg/mL (0-125) H Total Protein 6.6 G/DL (6.4-8.2) Albumin 2.0 G/DL (3.4-5.0) L Globulin 4.6 g/dL Albumin/Globulin Ratio 0.4 (1.0-2.7) L Current Medications Medications (Trade) Dose Ordered Sig/Ruthie Route PRN Reason Start Time Stop Time Status Last Admin Dose Admin Acetaminophen (Tylenol) 650 mg Q6H PRN GT Mild Pain/Temp > 100.5 11/23/18 09:39 12/15/18 09:38 Albuterol/ Ipratropium (Albuterol/ Ipratropium) 3 ml Q4HRT HHN 11/23/18 11:00 11/28/18 10:59 11/24/18 10:49 Bisacodyl (Dulcolax) 10 mg DAILYPRN PRN RECTAL Constipation 11/23/18 09:39 12/18/18 09:38 Chlorhexidine Gluconate (Rachael-Hex 2%) 1 applic DAILY@1999 11/23/18 20:00 12/15/18 19:59 11/23/18 20:05 Dextrose 1,000 ml @ 30 mls/hr Q24H IV 11/23/18 10:45 12/23/18 10:44 11/24/18 10:57 Dextrose (Dextrose 50%) 25 ml Q30M PRN IV Hypoglycemia 11/23/18 09:39 12/15/18 09:38 Dextrose (Dextrose 50%) 50 ml Q30M PRN IV Hypoglycemia 11/23/18 09:45 12/15/18 05:44 Dopamine HCl/ Dextrose 250 ml @ 8.42 mls/hr Q24H IV 11/23/18 16:41 12/23/18 16:40 11/23/18 16:49 Doxycycline Hyclate 100 mg/ Dextrose 110 ml @ 110 mls/hr Q12HR IV 11/23/18 21:00 11/26/18 20:59 11/24/18 10:55 Hydromorphone HCl (Dilaudid) 0.5 mg Q4H PRN IVP For Pain 11/23/18 09:40 11/29/18 09:39 Insulin Aspart (NovoLOG) BEFORE MEALS AND HS SUBQ 11/23/18 11:30 12/15/18 06:29 11/24/18 12:36 Lorazepam (Ativan 2mg/ml 1ml) 0.5 mg Q2H PRN IV For Anxiety 11/23/18 10:45 11/30/18 10:44 11/23/18 18:16 Olanzapine (ZyPREXA Zydis) 7.5 mg DAILY GT 11/24/18 09:00 12/15/18 08:59 11/24/18 10:56 Pantoprazole (Protonix) 40 mg EVERY 12 HOURS IVP 11/23/18 21:00 12/15/18 08:59 11/24/18 10:56 Piperacillin Sod/ Tazobactam Sod 3.375 gm/Sodium Chloride 110 ml @ 27.5 mls/hr Q8H IVPB 11/23/18 12:00 11/26/18 19:59 11/24/18 13:29 Quetiapine Fumarate (SEROquel) 50 mg DAILY GT 11/24/18 09:00 12/15/18 08:59 11/24/18 10:56 Tamsulosin HCl (Flomax) 0.4 mg BEDTIME ORAL 11/23/18 21:00 12/15/18 20:59 11/23/18 20:40 Anam Cruz MD Nov 24, 2018 15:24
[2018-11-24] MEDS ORDERED: Tubing IV Secondary IV ONE ×2 (16:15→16:55)
[2018-11-24] MEDS ORDERED: NS Irrig 1000ml ONE (16:15)
[2018-11-24] MEDS ORDERED: D5 1/2NS 1000ml IV ONE (16:15)
[2018-11-24] MEDS ORDERED: NS 500ML ONE (16:15)
[2018-11-24] MEDS ORDERED: NS 275ml ONE ×2 (16:15→16:55)
--- NOTE | 2018-11-24 16:15 | Nephrology Progress Note ---
Assessment/Plan Problem List: (1) Septic shock Assessment: WBCs rising (2) Ventilator dependence (3) Renal failure (ARF), acute on chronic (4) Prostate enlargement (5) Anemia Assessment Septic Shock Acute renal failure CKD underlying BPH Sever Anemia Chronic trach-Vent DM HypoAlbuminemia HyperNatremia Dementia Troponin elevation Plan now in ICU for episode of bradycardia and asystole labs reviewed- mag IV as needed change IV to D5 avoid Nephrotoxics transfuse as needed crabtree monitor urine out put and renal parameters per orders Subjective ROS Limited/Unobtainable: Yes Constitutional: Reports: malaise Objective Objective Last 24 Hour Vital Signs Date Time Temp Pulse Resp B/P (MAP) Pulse Ox O2 Delivery O2 Flow Rate FiO2 11/24/18 15:27 90 25 96 Mechanical Ventilator 50 100 22 50 11/24/18 15:00 92 33 158/68 (98) 93 11/24/18 14:00 91 28 144/59 (87) 93 11/24/18 13:00 88 25 137/58 (84) 94 11/24/18 12:54 87 26 50 11/24/18 12:00 99.0 91 25 129/51 (77) 96 11/24/18 12:00 50 11/24/18 11:00 96 35 183/94 (123) 96 11/24/18 10:59 112 26 94 Mechanical Ventilator 50 106 24 50 11/24/18 10:00 94 32 154/73 (100) 94 11/24/18 09:00 99 35 152/64 (93) 97 11/24/18 08:52 94 27 50 11/24/18 08:00 98.9 28 143/67 (92) 94 11/24/18 08:00 50 11/24/18 07:18 93 27 97 Mechanical Ventilator 50 94 25 50 11/24/18 06:00 75 25 155/70 (98) 92 11/24/18 06:00 95 22 145/73 (97) 95 11/24/18 06:00 145/73 11/24/18 05:00 95 34 147/68 (94) 96 11/24/18 05:00 96 22 50 11/24/18 05:00 147/68 11/24/18 04:00 Mechanical Ventilator 11/24/18 04:00 143/58 11/24/18 04:00 50 11/24/18 04:00 99.2 104 22 129/53 (78) 94 11/24/18 04:00 99 11/24/18 03:31 94 26 100 Mechanical Ventilator 50 95 22 50 11/24/18 03:00 96 26 129/53 (78) 93 11/24/18 03:00 129/53 11/24/18 02:00 145/59 11/24/18 02:00 97 34 145/59 (87) 91 11/24/18 01:00 95 34 132/92 (105) 96 11/24/18 01:00 152/68 11/24/18 01:00 100 24 50 11/24/18 00:00 50 11/24/18 00:00 99.5 93 34 123/87 (99) 94 11/24/18 00:00 93 11/24/18 00:00 129/56 11/24/18 00:00 Mechanical Ventilator 11/23/18 23:36 95 22 100 Mechanical Ventilator 50 95 22 50 11/23/18 23:00 90 24 133/57 (82) 94 11/23/18 23:00 133/57 11/23/18 22:00 131/60 11/23/18 22:00 94 35 131/60 (83) 98 11/23/18 21:00 93 35 50 11/23/18 21:00 94 32 136/57 (83) 92 11/23/18 21:00 132/64 11/23/18 20:00 99.2 90 28 131/64 (86) 92 11/23/18 20:00 130/60 11/23/18 20:00 91 11/23/18 20:00 50 11/23/18 20:00 Mechanical Ventilator 11/23/18 19:00 125/45 11/23/18 19:00 93 32 125/45 (71) 93 11/23/18 18:39 96 33 96 Mechanical Ventilator 50 96 33 50 11/23/18 18:00 93 30 121/57 (78) 93 11/23/18 18:00 121/57 19 17:00 132/56 11/23/18 17:00 99.0 84 27 132/56 (81) 96 11/23/18 16:49 123/62 11/23/18 16:33 40 10/18/19 16:29 86 31 50 Intake and Output 11/23/18 11/24/18 19:00 07:00 Intake Total 1792.76 ml 1395.12 ml Output Total 300 ml 455 ml Balance 1492.76 ml 940.12 ml Intake Free Water 320 ml 120 ml IV Total 812.76 ml 670.12 ml Tube Feeding 660 ml 605 ml Output Urine Total 300 ml 455 ml Laboratory Tests 11/23/18 20:48: Arterial Blood pH 7.388, Arterial Blood Partial Pressure CO2 48.8H, Arterial Blood Partial Pressure O2 67.5L, Arterial Blood HCO3 28.7H, Arterial Blood Oxygen Saturation 93.5L, Arterial Blood Base Excess 3.2H, Ebenezer Test Positive 11/24/18 04:50: White Blood Count 11.3H, Red Blood Count 3.13L, Hemoglobin 8.5L, Hematocrit 26.8L, Mean Corpuscular Volume 86, Mean Corpuscular Hemoglobin 27.2, Mean Corpuscular Hemoglobin Concent 31.7L, Red Cell Distribution Width 15.9H, Platelet Count 195, Mean Platelet Volume 6.8, Neutrophils (%) (Auto) 73.0, Lymphocytes (%) (Auto) 11.5L, Monocytes (%) (Auto) 11.9H, Eosinophils (%) (Auto ) 2.8, Basophils (%) (Auto) 0.8, Sodium Level 150H, Potassium Level 3.9, Chloride Level 114H, Carbon Dioxide Level 31, Anion Gap 5, Blood Urea Nitrogen 18, Creatinine 0.9, Estimat Glomerular Filtration Rate , Glucose Level 113H, Calcium Level 8.8, Phosphorus Level 3.1, Magnesium Level 1.6L, Total Bilirubin 0.4, Aspartate Amino Transf (AST/SGOT) 37, Alanine Aminotransferase (ALT/SGPT) 89H, Alkaline Phosphatase 117H, C-Reactive Protein, Quantitative 11.0H, Pro-B- Type Natriuretic Peptide 3577H, Total Protein 6.6, Albumin 2.0L, Globulin 4.6, Albumin/Globulin Ratio 0.4L Height (Feet): 5 Height (Inches): 5.00 Weight (Pounds): 165 General Appearance: no apparent distress EENT: other - trach Cardiovascular: normal rate Respiratory/Chest: decreased breath sounds Abdomen: distended Objective no change Randolph Fernandes MD Nov 24, 2018 16:15
[2018-11-24] MEDS ORDERED: Sterile Water Irrig 1000ml IRRIG ONE (16:55)
[2018-11-24] MEDS: DOPamine 400mg/250ml 250 ML IV SCH (17:04)
--- NOTE | 2018-11-24 20:10 | General Progress Note ---
Assessment/Plan Status: not improved, unchanged Assessment/Plan: IM progress note Covering for Dr. Trish Tripathi ASSESSMENT AND RECOMMENDATIONS # Leukocytosis. Likely related to underlying infection with sepsis and elevated severely on admission --> Imaging has been reviewed. Shows cxr left lung inil/v edema --> Blood cs and urine cx are reviewed --> Has been started on abx, empiric tx --> PERIPHERAL SMEAR SHOWS ATYPICAL LYMPHOCYTES --> Flow cytometry ordered with pathologist -> no atypical findings are noted --> wbc 52k-->47k-->29k->16-->12-->14->12-->12-->21-->14->11 --> picc was repositioned # Anemia of chronic disease, due to underlying chronic medical issues, multifactorial. --> Anemia w/u has been ordered --> with hyperferritinemia --> No evidence of hemolysis noted, peripheral smear has been reviewed --> Hgb goal >7. Transfuse as needed --> hgb trend 7.5-->6.6->9.1-->9.2-->8.9-->9.9->8.3-->8.5 --> 2 units transfuse on 11/15 --> will need to follow as outpatient and may need chelation therapy --> GI workup once more stable # Failure to thrive (FTT) - decreased bmi and low protein --> cea 4.3 --> will obtain q3 day caloric counts --> consider mirtazapine as appetite stimulant --> GI consult on a prn basis, as needed for endosc # Asystole with pauses may need pm per family --> as per cards recs # Sepsis. improved # PEG. # Malnutrition. 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 Greatly appreciate consultation. Subjective Allergies: Coded Allergies: TERAZOSIN (Verified Allergy, Unknown, 10/27/17) Subjective 11/16: in the icu, is off pressors, doing better, no bleeding 11/18: no bleeding, remains on doxy and zosyn, no bleeding reported 11/19: out of the icu, on vent/trach, no major changes, jimenez rn 11/20: no bleeding noted, no night sweats, meds reviewed, no f/c 11/21: on vent, obtunded, with gt ongong, with picc, no bleeding 10.17: stricture advanced through with uro, with crabtree, labs noted 11/23: no events to report, no bleeding, labs reviewed, in icu 11/24: remains in the icu, with asystole, pending discussion with fam re pM Objective Last 24 Hour Vital Signs Date Time Temp Pulse Resp B/P (MAP) Pulse Ox O2 Delivery O2 Flow Rate FiO2 11/24/18 19:18 91 22 97 Mechanical Ventilator 50 11/24/18 19:07 92 22 94 Mechanical Ventilator 50 92 22 50 11/24/18 18:00 96 27 168/73 (104) 95 11/24/18 17:04 160/70 11/24/18 17:00 99 33 160/70 (100) 92 11/24/18 16:42 93 23 50 11/24/18 16:00 98.5 96 24 162/72 (102) 94 11/24/18 16:00 Mechanical Ventilator 11/24/18 16:00 50 11/24/18 16:00 96 11/24/18 15:27 90 25 96 Mechanical Ventilator 50 100 22 50 11/24/18 15:00 92 33 158/68 (98) 93 11/24/18 14:00 91 28 144/59 (87) 93 11/24/18 13:00 88 25 137/58 (84) 94 11/24/18 12:54 87 26 50 11/24/18 12:00 99.0 91 25 129/51 (77) 96 11/24/18 12:00 Mechanical Ventilator 11/24/18 12:00 95 11/24/18 12:00 50 11/24/18 11:00 96 35 183/94 (123) 96 11/24/18 10:59 112 26 94 Mechanical Ventilator 50 106 24 50 11/24/18 10:00 94 32 154/73 (100) 94 11/24/18 09:00 99 35 152/64 (93) 97 11/24/18 08:52 94 27 50 11/24/18 08:00 Mechanical Ventilator 11/24/18 08:00 98.9 28 143/67 (92) 94 11/24/18 08:00 50 11/24/18 08:00 95 11/24/18 07:18 93 27 97 Mechanical Ventilator 50 94 25 50 11/24/18 06:00 75 25 155/70 (98) 92 11/24/18 06:00 95 22 145/73 (97) 95 11/24/18 06:00 145/73 11/24/18 05:00 95 34 147/68 (94) 96 11/24/18 05:00 96 22 50 11/24/18 05:00 147/68 11/24/18 04:00 Mechanical Ventilator 11/24/18 04:00 143/58 11/24/18 04:00 50 11/24/18 04:00 99.2 104 22 129/53 (78) 94 11/24/18 04:00 99 11/24/18 03:31 94 26 100 Mechanical Ventilator 50 95 22 50 11/24/18 03:00 96 26 129/53 (78) 93 11/24/18 03:00 129/53 11/24/18 02:00 145/59 11/24/18 02:00 97 34 145/59 (87) 91 11/24/18 01:00 95 34 132/92 (105) 96 11/24/18 01:00 152/68 11/24/18 01:00 100 24 50 11/24/18 00:00 50 11/24/18 00:00 99.5 93 34 123/87 (99) 94 11/24/18 00:00 93 11/24/18 00:00 129/56 11/24/18 00:00 Mechanical Ventilator 11/23/18 23:36 95 22 100 Mechanical Ventilator 50 95 22 50 11/23/18 23:00 90 24 133/57 (82) 94 11/23/18 23:00 133/57 11/23/18 22:00 131/60 11/23/18 22:00 94 35 131/60 (83) 98 11/23/18 21:00 93 35 50 11/23/18 21:00 94 32 136/57 (83) 92 11/23/18 21:00 132/64 Intake and Output 11/23/18 11/24/18 18:59 06:59 Intake Total 1749.34 ml 1488.54 ml Output Total 270 ml 485 ml Balance 1479.34 ml 1003.54 ml Intake Free Water 320 ml 120 ml IV Total 824.34 ml 708.54 ml Tube Feeding 605 ml 660 ml Output Urine Total 270 ml 485 ml Laboratory Tests 11/23/18 20:48: Arterial Blood pH 7.388, Arterial Blood Partial Pressure CO2 48.8H, Arterial Blood Partial Pressure O2 67.5L, Arterial Blood HCO3 28.7H, Arterial Blood Oxygen Saturation 93.5L, Arterial Blood Base Excess 3.2H, Ebenezer Test Positive 11/24/18 04:50: White Blood Count 11.3H, Red Blood Count 3.13L, Hemoglobin 8.5L, Hematocrit 26.8L, Mean Corpuscular Volume 86, Mean Corpuscular Hemoglobin 27.2, Mean Corpuscular Hemoglobin Concent 31.7L, Red Cell Distribution Width 15.9H, Platelet Count 195, Mean Platelet Volume 6.8, Neutrophils (%) (Auto) 73.0, Lymphocytes (%) (Auto) 11.5L, Monocytes (%) (Auto) 11.9H, Eosinophils (%) (Auto ) 2.8, Basophils (%) (Auto) 0.8, Sodium Level 150H, Potassium Level 3.9, Chloride Level 114H, Carbon Dioxide Level 31, Anion Gap 5, Blood Urea Nitrogen 18, Creatinine 0.9, Estimat Glomerular Filtration Rate , Glucose Level 113H, Calcium Level 8.8, Phosphorus Level 3.1, Magnesium Level 1.6L, Total Bilirubin 0.4, Aspartate Amino Transf (AST/SGOT) 37, Alanine Aminotransferase (ALT/SGPT) 89H, Alkaline Phosphatase 117H, C-Reactive Protein, Quantitative 11.0H, Pro-B- Type Natriuretic Peptide 3577H, Total Protein 6.6, Albumin 2.0L, Globulin 4.6, Albumin/Globulin Ratio 0.4L Height (Feet): 5 Height (Inches): 5.00 Weight (Pounds): 165 Objective Vitals: reviewed Gen: no apparent distress Head: normocephalic EENT: normal ENT inspection Respiratory: other - intubated vent+ Cardiovascular: normal rate Gastrointestinal: gt - c/d/i Rectal: deferred Genitourinary: no CVA tenderness Skin: normal color +++ decub : ++ Beny Fields MD Nov 24, 2018 20:10
[2018-11-24] MEDS: Dyna-Hex 2% Top Sol 2oz TOPIC SCH (20:23)
[2018-11-24] MEDS: Tamsulosin 0.4mg cap ORAL SCH (20:23)
--- NOTE | 2018-11-24 20:53 | General Progress Note ---
Assessment/Plan Status: not improved, unchanged Assessment/Plan: Assessment (1) Dysphagia / PEG (percutaneous endoscopic gastrostomy) status ICD Codes: Z93.1 - Gastrostomy status SNOMED: 481610795, 396169918 (2) GIB (gastrointestinal bleeding) ICD Codes: K92.2 - Gastrointestinal hemorrhage, unspecified SNOMED: 09868099 (3) Anemia ICD Codes: D64.9 - Anemia, unspecified SNOMED: 343673219 (4) Constipation ICD Codes: K59.00 - Constipation, unspecified SNOMED: 38312262 (5) Abnormal LFT (6) DM (7) Encephalopathy due to metabolic factor or toxin SNOMED: 897049403 Assessment/Plan OB stool positive x2 hepatitis panel negative s/p EGD SUMMARY OF FINDINGS: Gastritis, otherwise normal upper endoscopic examination. RECOMMENDATIONS: Resume G-tube feeding. Monitor hemoglobin and hematocrit. Transfuse as needed. Monitor for stool OB. The patient might need colonoscopy if continues to bleed. Hold iron supplementation given elevated ferritin levels abx fu labs Subjective Allergies: Coded Allergies: TERAZOSIN (Verified Allergy, Unknown, 10/27/17) Subjective above noted d/w RN tolerating TF (+) BM Objective Last 24 Hour Vital Signs Date Time Temp Pulse Resp B/P (MAP) Pulse Ox O2 Delivery O2 Flow Rate FiO2 11/24/18 19:18 91 22 97 Mechanical Ventilator 50 11/24/18 19:07 92 22 94 Mechanical Ventilator 50 92 22 50 11/24/18 19:00 91 21 164/80 (108) 93 11/24/18 18:00 96 27 168/73 (104) 95 11/24/18 17:04 160/70 11/24/18 17:00 99 33 160/70 (100) 92 11/24/18 16:42 93 23 50 11/24/18 16:00 98.5 96 24 162/72 (102) 94 11/24/18 16:00 Mechanical Ventilator 11/24/18 16:00 50 11/24/18 16:00 96 11/24/18 15:27 90 25 96 Mechanical Ventilator 50 100 22 50 11/24/18 15:00 92 33 158/68 (98) 93 11/24/18 14:00 91 28 144/59 (87) 93 11/24/18 13:00 88 25 137/58 (84) 94 11/24/18 12:54 87 26 50 11/24/18 12:00 99.0 91 25 129/51 (77) 96 11/24/18 12:00 Mechanical Ventilator 11/24/18 12:00 95 11/24/18 12:00 50 11/24/18 11:00 96 35 183/94 (123) 96 11/24/18 10:59 112 26 94 Mechanical Ventilator 50 106 24 50 11/24/18 10:00 94 32 154/73 (100) 94 11/24/18 09:00 99 35 152/64 (93) 97 11/24/18 08:52 94 27 50 11/24/18 08:00 Mechanical Ventilator 11/24/18 08:00 98.9 28 143/67 (92) 94 11/24/18 08:00 50 11/24/18 08:00 95 11/24/18 07:18 93 27 97 Mechanical Ventilator 50 94 25 50 11/24/18 06:00 75 25 155/70 (98) 92 11/24/18 06:00 95 22 145/73 (97) 95 11/24/18 06:00 145/73 11/24/18 05:00 95 34 147/68 (94) 96 11/24/18 05:00 96 22 50 11/24/18 05:00 147/68 11/24/18 04:00 Mechanical Ventilator 11/24/18 04:00 143/58 11/24/18 04:00 50 11/24/18 04:00 99.2 104 22 129/53 (78) 94 11/24/18 04:00 99 11/24/18 03:31 94 26 100 Mechanical Ventilator 50 95 22 50 11/24/18 03:00 96 26 129/53 (78) 93 11/24/18 03:00 129/53 11/24/18 02:00 145/59 11/24/18 02:00 97 34 145/59 (87) 91 11/24/18 01:00 95 34 132/92 (105) 96 11/24/18 01:00 152/68 11/24/18 01:00 100 24 50 11/24/18 00:00 50 11/24/18 00:00 99.5 93 34 123/87 (99) 94 11/24/18 00:00 93 11/24/18 00:00 129/56 11/24/18 00:00 Mechanical Ventilator 11/23/18 23:36 95 22 100 Mechanical Ventilator 50 95 22 50 11/23/18 23:00 90 24 133/57 (82) 94 11/23/18 23:00 133/57 11/23/18 22:00 131/60 11/23/18 22:00 94 35 131/60 (83) 98 11/23/18 21:00 93 35 50 11/23/18 21:00 94 32 136/57 (83) 92 11/23/18 21:00 132/64 Intake and Output 11/23/18 11/24/18 18:59 06:59 Intake Total 1749.34 ml 1488.54 ml Output Total 270 ml 485 ml Balance 1479.34 ml 1003.54 ml Intake Free Water 320 ml 120 ml IV Total 824.34 ml 708.54 ml Tube Feeding 605 ml 660 ml Output Urine Total 270 ml 485 ml Laboratory Tests 11/24/18 04:50: White Blood Count 11.3H, Red Blood Count 3.13L, Hemoglobin 8.5L, Hematocrit 26.8L, Mean Corpuscular Volume 86, Mean Corpuscular Hemoglobin 27.2, Mean Corpuscular Hemoglobin Concent 31.7L, Red Cell Distribution Width 15.9H, Platelet Count 195, Mean Platelet Volume 6.8, Neutrophils (%) (Auto) 73.0, Lymphocytes (%) (Auto) 11.5L, Monocytes (%) (Auto) 11.9H, Eosinophils (%) (Auto ) 2.8, Basophils (%) (Auto) 0.8, Sodium Level 150H, Potassium Level 3.9, Chloride Level 114H, Carbon Dioxide Level 31, Anion Gap 5, Blood Urea Nitrogen 18, Creatinine 0.9, Estimat Glomerular Filtration Rate , Glucose Level 113H, Calcium Level 8.8, Phosphorus Level 3.1, Magnesium Level 1.6L, Total Bilirubin 0.4, Aspartate Amino Transf (AST/SGOT) 37, Alanine Aminotransferase (ALT/SGPT) 89H, Alkaline Phosphatase 117H, C-Reactive Protein, Quantitative 11.0H, Pro-B- Type Natriuretic Peptide 3577H, Total Protein 6.6, Albumin 2.0L, Globulin 4.6, Albumin/Globulin Ratio 0.4L Height (Feet): 5 Height (Inches): 5.00 Weight (Pounds): 165 Objective Debilitated AA man NCAT (+) trach CTA RR abd distended, tympanitic trace edema Sameer Don MD Nov 24, 2018 20:53
[2018-11-25] VITALS (28 sets, daily range): BP systolic 127–199; BP diastolic 56–101
[2018-11-25] MEDS: Albuterol/Ipratropium 3ml neb HHN SCH ×6 (03:02→22:50)
[2018-11-25] MEDS: Piperacillin/Tazobactam 3.375 GM in NS 110 ML IVPB SCH ×3 (04:46→20:50)
[2018-11-25] MEDS: NovoLOG Insulin Flexpen SUBQ SCH ×4 (06:06→20:51)
--- NOTE | 2018-11-25 08:21 | Critical Care Progress Note ---
Assessment/Plan Assessment/Plan Impression: ho Pneumonia Ventilator dependant respiratory failure chronic respiratory failure Severe sepsis -history of NSTEMI Anemia Dysphagia s/p G tube Chronic wounds Dementia Organic Brain Syndrome Diabetes Chronic renal disease BPH Penile wound CHF H/o Hypertension severe Protein Calorie Malnutrition Plan IV antibiotics reviewed reviewed hemodynamics HHN Q4 and monitor secretions on full vent support-AC- unable to wean monitor oxygen needs- and adjust Transfuse PRN DVT and PUD prophylaxis Gtube feeds monitor residuals for change Aspiration precautions Full Code noted multiorgan disease and monitoring remains critical at present medications/laboratory data/nursing notes/ICU care reviewed in detail note reviewed and edited care discussed with RN and RT ICU time spent 40 minutes Critical Care - Subjective Interval Events: overnight events reviewed ICU care noted nursing reviewed ROS Limited/Unobtainable: Yes Condition: critical EKG Rhythm: Sinus Rhythm Residuals: minimal Tube Feeding Tolerated: yes I&O: Intake and Output 11/24/18 11/25/18 19:00 07:00 Intake Total 1386.04 ml 1235.12 ml Balance 1386.04 ml 1235.12 ml Intake Free Water 100 ml IV Total 626.04 ml 530.12 ml Tube Feeding 660 ml 605 ml Other 100 ml # Voids 10 # Bowel Movements 2 4 Critical Care - Objective Last 24 Hour Vital Signs Date Time Temp Pulse Resp B/P (MAP) Pulse Ox O2 Delivery O2 Flow Rate FiO2 11/25/18 07:14 94 29 96 Mechanical Ventilator 50 103 22 50 11/25/18 06:00 162/75 11/25/18 06:00 98 36 162/75 (104) 92 11/25/18 05:11 98 24 50 11/25/18 05:00 97 27 155/71 (99) 96 11/25/18 05:00 155/71 11/25/18 04:00 98.4 90 38 199/101 (133) 92 11/25/18 04:00 Mechanical Ventilator 11/25/18 04:00 199/101 11/25/18 04:00 90 11/25/18 04:00 50 11/25/18 03:11 98 22 97 Mechanical Ventilator 50 11/25/18 03:01 95 24 96 Mechanical Ventilator 50 95 24 50 11/25/18 03:01 95 24 96 Mechanical Ventilator 50 11/25/18 03:00 97 34 168/72 (104) 92 11/25/18 03:00 168/72 10/20/19 02:00 97 26 168/88 (114) 92 11/25/18 02:00 168/88 11/25/18 01:25 91 22 50 11/25/18 01:00 168/81 11/25/18 01:00 94 38 168/81 (110) 92 11/25/18 00:00 Mechanical Ventilator 11/25/18 00:00 50 11/25/18 00:00 99.0 94 31 168/67 (100) 93 11/25/18 00:00 160/67 11/25/18 00:00 94 11/24/18 23:00 154/64 11/24/18 23:00 92 24 154/64 (94) 98 11/24/18 22:59 98 24 99 Mechanical Ventilator 50 11/24/18 22:48 93 23 95 Mechanical Ventilator 50 93 23 50 11/24/18 22:00 160/69 11/24/18 22:00 93 27 160/69 (99) 94 11/24/18 21:05 96 27 50 11/24/18 21:00 97 22 169/88 (115) 95 11/24/18 21:00 169/88 11/24/18 20:00 99.2 98 27 160/76 (104) 98 11/24/18 20:00 98 11/24/18 20:00 50 11/24/18 20:00 160/76 11/24/18 20:00 Mechanical Ventilator 11/24/18 19:18 91 22 97 Mechanical Ventilator 50 11/24/18 19:07 92 22 94 Mechanical Ventilator 50 92 22 50 11/24/18 19:00 164/80 11/24/18 19:00 91 21 164/80 (108) 93 11/24/18 18:00 181/72 11/24/18 18:00 96 27 168/73 (104) 95 11/24/18 17:04 160/70 11/24/18 17:00 160/70 11/24/18 17:00 99 33 160/70 (100) 92 11/24/18 16:42 93 23 50 11/24/18 16:00 98.5 96 24 162/72 (102) 94 11/24/18 16:00 162/72 11/24/18 16:00 Mechanical Ventilator 11/24/18 16:00 50 11/24/18 16:00 96 11/24/18 15:27 90 25 96 Mechanical Ventilator 50 100 22 50 11/24/18 15:00 158/68 11/24/18 15:00 92 33 158/68 (98) 93 11/24/18 14:00 91 28 144/59 (87) 93 11/24/18 14:00 144/59 11/24/18 13:00 137/58 11/24/18 13:00 88 25 137/58 (84) 94 11/24/18 12:54 87 26 50 11/24/18 12:00 99.0 91 25 129/51 (77) 96 11/24/18 12:00 Mechanical Ventilator 11/24/18 12:00 129/51 11/24/18 12:00 95 11/24/18 12:00 50 11/24/18 11:00 96 35 183/94 (123) 96 11/24/18 11:00 183/94 11/24/18 10:59 112 26 94 Mechanical Ventilator 50 106 24 50 11/24/18 10:00 94 32 154/73 (100) 94 11/24/18 10:00 154/73 11/24/18 09:00 152/64 11/24/18 09:00 99 35 152/64 (93) 97 11/24/18 08:52 94 27 50 Labs: Labs Test 11/23/18 04:00 11/23/18 07:50 11/23/18 10:29 11/23/18 20:48 White Blood Count 13.5 K/UL (4.8-10.8) Red Blood Count 3.05 M/UL (4.70-6.10) Hemoglobin 8.3 G/DL (14.2-18.0) Hematocrit 26.2 % (42.0-52.0) Mean Corpuscular Volume 86 FL (80-99) Mean Corpuscular Hemoglobin 27.4 PG (27.0-31.0) Mean Corpuscular Hemoglobin Concent 31.8 G/DL (32.0-36.0) Red Cell Distribution Width 15.5 % (11.6-14.8) Platelet Count 190 K/UL (150-450) Mean Platelet Volume 6.7 FL (6.5-10.1) Neutrophils (%) (Auto) 78.3 % (45.0-75.0) Lymphocytes (%) (Auto) 8.2 % (20.0-45.0) Monocytes (%) (Auto) 11.2 % (1.0-10.0) Eosinophils (%) (Auto) 1.8 % (0.0-3.0) Basophils (%) (Auto) 0.5 % (0.0-2.0) Sodium Level 149 MMOL/L (136-145) 150 MMOL/L (136-145) Potassium Level 4.1 MMOL/L (3.5-5.1) 4.1 MMOL/L (3.5-5.1) Chloride Level 115 MMOL/L (98-107) 115 MMOL/L (98-107) Carbon Dioxide Level 31 MMOL/L (21-32) 30 MMOL/L (21-32) Anion Gap 3 mmol/L (5-15) 5 mmol/L (5-15) Blood Urea Nitrogen 17 mg/dL (7-18) 17 mg/dL (7-18) Creatinine 0.8 MG/DL (0.55-1.30) 0.9 MG/DL (0.55-1.30) Estimat Glomerular Filtration Rate mL/min (>60) mL/min (>60) Glucose Level 118 MG/DL (74-106) 126 MG/DL (74-106) Calcium Level 8.6 MG/DL (8.5-10.1) 8.7 MG/DL (8.5-10.1) Total Bilirubin 0.4 MG/DL (0.2-1.0) Aspartate Amino Transf (AST/SGOT) 31 U/L (15-37) Alanine Aminotransferase (ALT/SGPT) 93 U/L (12-78) Alkaline Phosphatase 126 U/L (46-116) Troponin I 0.078 ng/mL (0.000-0.056) Total Protein 6.5 G/DL (6.4-8.2) Albumin 2.0 G/DL (3.4-5.0) Globulin 4.5 g/dL Albumin/Globulin Ratio 0.4 (1.0-2.7) Arterial Blood pH 7.299 (7.350-7.450) 7.388 (7.350-7.450) Arterial Blood Partial Pressure CO2 58.9 mmHg (35.0-45.0) 48.8 mmHg (35.0-45.0) Arterial Blood Partial Pressure O2 72.9 mmHg (75.0-100.0) 67.5 mmHg (75.0-100.0) Arterial Blood HCO3 28.3 mmol/L (22.0-26.0) 28.7 mmol/L (22.0-26.0) Arterial Blood Oxygen Saturation 93.4 % (95-100) 93.5 % (95-100) Arterial Blood Base Excess 1.2 (-2-2) 3.2 (-2-2) Ebenezer Test Positive Positive Test 11/24/18 04:50 White Blood Count 11.3 K/UL (4.8-10.8) Red Blood Count 3.13 M/UL (4.70-6.10) Hemoglobin 8.5 G/DL (14.2-18.0) Hematocrit 26.8 % (42.0-52.0) Mean Corpuscular Volume 86 FL (80-99) Mean Corpuscular Hemoglobin 27.2 PG (27.0-31.0) Mean Corpuscular Hemoglobin Concent 31.7 G/DL (32.0-36.0) Red Cell Distribution Width 15.9 % (11.6-14.8) Platelet Count 195 K/UL (150-450) Mean Platelet Volume 6.8 FL (6.5-10.1) Neutrophils (%) (Auto) 73.0 % (45.0-75.0) Lymphocytes (%) (Auto) 11.5 % (20.0-45.0) Monocytes (%) (Auto) 11.9 % (1.0-10.0) Eosinophils (%) (Auto) 2.8 % (0.0-3.0) Basophils (%) (Auto) 0.8 % (0.0-2.0) Sodium Level 150 MMOL/L (136-145) Potassium Level 3.9 MMOL/L (3.5-5.1) Chloride Level 114 MMOL/L (98-107) Carbon Dioxide Level 31 MMOL/L (21-32) Anion Gap 5 mmol/L (5-15) Blood Urea Nitrogen 18 mg/dL (7-18) Creatinine 0.9 MG/DL (0.55-1.30) Estimat Glomerular Filtration Rate mL/min (>60) Glucose Level 113 MG/DL (74-106) Calcium Level 8.8 MG/DL (8.5-10.1) Phosphorus Level 3.1 MG/DL (2.5-4.9) Magnesium Level 1.6 MG/DL (1.8-2.4) Total Bilirubin 0.4 MG/DL (0.2-1.0) Aspartate Amino Transf (AST/SGOT) 37 U/L (15-37) Alanine Aminotransferase (ALT/SGPT) 89 U/L (12-78) Alkaline Phosphatase 117 U/L (46-116) C-Reactive Protein, Quantitative 11.0 mg/dL (0.00-0.90) Pro-B-Type Natriuretic Peptide 3577 pg/mL (0-125) Total Protein 6.6 G/DL (6.4-8.2) Albumin 2.0 G/DL (3.4-5.0) Globulin 4.6 g/dL Albumin/Globulin Ratio 0.4 (1.0-2.7) Objective: WDWN NAD on vent and poorly responsive reduced breath sounds bilaterally with noted rhonchi [id number] without MRG NABS nontender no HSM; GT; non distended no CC mild edema nonfocal reduced LOC skin noted reviewed and edited Micro: Microbiology Date/Time Source Procedure Growth Status 11/22/18 17:30 Indwelling Cath Urine Culture - Preliminary NO GROWTH AFTER 24 HOURS Resulted Accucheck: 127 Chele Wolfe MD Nov 25, 2018 08:21
[2018-11-25] MEDS: ZyPREXA Zydis 5mg tab GT SCH (09:21)
[2018-11-25] MEDS: Pantoprazole Inj IVP SCH ×2 (09:24→20:50)
--- NOTE | 2018-11-25 12:22 | Nephrology Progress Note ---
Assessment/Plan Problem List: (1) Septic shock Assessment: WBCs rising (2) Ventilator dependence (3) Renal failure (ARF), acute on chronic (4) Prostate enlargement (5) Anemia Assessment Septic Shock Acute renal failure CKD underlying BPH Sever Anemia Chronic trach-Vent DM HypoAlbuminemia HyperNatremia Dementia Troponin elevation Plan now in ICU for episode of bradycardia and asystole labs reviewed- mag IV as needed change IV to D5 avoid Nephrotoxics transfuse as needed crabtree monitor urine out put and renal parameters per orders Subjective ROS Limited/Unobtainable: Yes Objective Objective Last 24 Hour Vital Signs Date Time Temp Pulse Resp B/P (MAP) Pulse Ox O2 Delivery O2 Flow Rate FiO2 11/25/18 11:17 73 24 99 Mechanical Ventilator 50 78 23 50 11/25/18 09:05 94 23 50 11/25/18 07:14 94 29 96 Mechanical Ventilator 50 103 22 50 11/25/18 06:00 162/75 11/25/18 06:00 98 36 162/75 (104) 92 11/25/18 05:11 98 24 50 11/25/18 05:00 97 27 155/71 (99) 96 11/25/18 05:00 155/71 11/25/18 04:00 98.4 90 38 199/101 (133) 92 11/25/18 04:00 Mechanical Ventilator 11/25/18 04:00 199/101 11/25/18 04:00 90 11/25/18 04:00 50 11/25/18 03:11 98 22 97 Mechanical Ventilator 50 11/25/18 03:01 95 24 96 Mechanical Ventilator 50 95 24 50 11/25/18 03:01 95 24 96 Mechanical Ventilator 50 11/25/18 03:00 97 34 168/72 (104) 92 11/25/18 03:00 168/72 11/25/18 02:00 97 26 168/88 (114) 92 11/25/18 02:00 168/88 11/25/18 01:25 91 22 50 11/25/18 01:00 168/81 11/25/18 01:00 94 38 168/81 (110) 92 11/25/18 00:00 Mechanical Ventilator 11/25/18 00:00 50 11/25/18 00:00 99.0 94 31 168/67 (100) 93 11/25/18 00:00 160/67 1020/19 00:00 94 11/24/18 23:00 154/64 11/24/18 23:00 92 24 154/64 (94) 98 11/24/18 22:59 98 24 99 Mechanical Ventilator 50 11/24/18 22:48 93 23 95 Mechanical Ventilator 50 93 23 50 11/24/18 22:00 160/69 11/24/18 22:00 93 27 160/69 (99) 94 11/24/18 21:05 96 27 50 11/24/18 21:00 97 22 169/88 (115) 95 11/24/18 21:00 169/88 11/24/18 20:00 99.2 98 27 160/76 (104) 98 11/24/18 20:00 98 11/24/18 20:00 50 11/24/18 20:00 160/76 11/24/18 20:00 Mechanical Ventilator 11/24/18 19:18 91 22 97 Mechanical Ventilator 50 11/24/18 19:07 92 22 94 Mechanical Ventilator 50 92 22 50 11/24/18 19:00 164/80 11/24/18 19:00 91 21 164/80 (108) 93 11/24/18 18:00 181/72 11/24/18 18:00 96 27 168/73 (104) 95 11/24/18 17:04 160/70 11/24/18 17:00 160/70 11/24/18 17:00 99 33 160/70 (100) 92 11/24/18 16:42 93 23 50 11/24/18 16:00 98.5 96 24 162/72 (102) 94 11/24/18 16:00 162/72 11/24/18 16:00 Mechanical Ventilator 11/24/18 16:00 50 11/24/18 16:00 96 11/24/18 15:27 90 25 96 Mechanical Ventilator 50 100 22 50 11/24/18 15:00 158/68 11/24/18 15:00 92 33 158/68 (98) 93 11/24/18 14:00 91 28 144/59 (87) 93 11/24/18 14:00 144/59 11/24/18 13:00 137/58 11/24/18 13:00 88 25 137/58 (84) 94 11/24/18 12:54 87 26 50 Intake and Output 11/24/18 11/25/18 19:00 07:00 Intake Total 1386.04 ml 1235.12 ml Balance 1386.04 ml 1235.12 ml Intake Free Water 100 ml IV Total 626.04 ml 530.12 ml Tube Feeding 660 ml 605 ml Other 100 ml # Voids 10 # Bowel Movements 2 4 Height (Feet): 5 Height (Inches): 5.00 Weight (Pounds): 173 General Appearance: lethargic Neck: other - trach Cardiovascular: arrhythmia, other - Pauses + Respiratory/Chest: decreased breath sounds Abdomen: distended Objective no change Randolph Fernandes MD Nov 25, 2018 12:22
--- NOTE | 2018-11-25 14:31 | Cardiac Electrophysiology PN ---
Assessment/Plan Assessment/Plan 1. S/P Septic shock with white count of 50,000 and lactic acid of 6. On IV antibiotic and IV fluid . WBC was 20k on 11/22 and is down to 13k on Abx. 2. S/P multiple episodes of asystole with HR down to 10 and pauses of more than 10 seconds earlier today . Off any MCGEE or AVN blockers. Needs permanent pacer implantation. Patient is full code. DW Son with RN present on the phone Mr. Faraz Erickson on 11/23/18 at . He did not want the pacer until he consults with his sisters to make a final decision. Awaiting consent. ID clearance obtained by Dr Cruz. Still on Dopamine 3 mcg/kg/min. Echo Nl EF. 3. Congestive heart failure with BNP of more than 17,000. Now BNP 3900 4. Troponin elevation, likely due to renal failure and anemia and septic shock. The levels are flat. EKG does not show any ST elevation. 5. S/P Acute renal failure. BUN of 48, creatinine of 2.5. Resolved BUN 15 and Cr now 0.8 6. Hypernatremia. Better with iv fluid 7. Ventilator-dependent respiratory failure, status post tracheostomy. 8. Dysphagia, status post PEG placement. 9. Profound anemia, hemoglobin of 6.5, rule out GI bleed. S/P blood transfusion. S/P EGD RICARDA RN, Dr. Matias and patient son Mr Faraz Erickson Awaiting family consent for PPM implant Subjective Subjective Had another > 9second pause at 6.40 am yesterday.In ICU on iv Abx. Family still undecided re PPM implant Objective Last 24 Hour Vital Signs Date Time Temp Pulse Resp B/P (MAP) Pulse Ox O2 Delivery O2 Flow Rate FiO2 11/25/18 12:43 90 22 50 11/25/18 12:00 88 11/25/18 12:00 50 11/25/18 12:00 99.1 87 25 149/78 (101) 95 11/25/18 12:00 Mechanical Ventilator 11/25/18 11:17 73 24 99 Mechanical Ventilator 50 78 23 50 11/25/18 11:00 83 25 143/66 (91) 96 11/25/18 10:00 88 24 138/56 (83) 97 11/25/18 09:05 94 23 50 11/25/18 09:00 94 19 167/80 (109) 92 11/25/18 08:00 50 11/25/18 08:00 Mechanical Ventilator 11/25/18 08:00 99.3 107 34 175/79 (111) 96 11/25/18 08:00 92 11/25/18 07:14 94 29 96 Mechanical Ventilator 50 103 22 50 11/25/18 06:00 162/75 11/25/18 06:00 98 36 162/75 (104) 92 11/25/18 05:11 98 24 50 11/25/18 05:00 97 27 155/71 (99) 96 11/25/18 05:00 155/71 11/25/18 04:00 98.4 90 38 199/101 (133) 92 11/25/18 04:00 Mechanical Ventilator 11/25/18 04:00 199/101 11/25/18 04:00 90 11/25/18 04:00 50 11/25/18 03:11 98 22 97 Mechanical Ventilator 50 11/25/18 03:01 95 24 96 Mechanical Ventilator 50 95 24 50 11/25/18 03:01 95 24 96 Mechanical Ventilator 50 11/25/18 03:00 97 34 168/72 (104) 92 11/25/18 03:00 168/72 11/25/18 02:00 97 26 168/88 (114) 92 11/25/18 02:00 168/88 11/25/18 01:25 91 22 50 11/25/18 01:00 168/81 11/25/18 01:00 94 38 168/81 (110) 92 11/25/18 00:00 Mechanical Ventilator 11/25/18 00:00 50 11/25/18 00:00 99.0 94 31 168/67 (100) 93 11/25/18 00:00 160/67 11/25/18 00:00 94 11/24/18 23:00 154/64 11/24/18 23:00 92 24 154/64 (94) 98 11/24/18 22:59 98 24 99 Mechanical Ventilator 50 11/24/18 22:48 93 23 95 Mechanical Ventilator 50 93 23 50 11/24/18 22:00 160/69 11/24/18 22:00 93 27 160/69 (99) 94 10/19/19 21:05 96 27 50 11/24/18 21:00 97 22 169/88 (115) 95 11/24/18 21:00 169/88 11/24/18 20:00 99.2 98 27 160/76 (104) 98 11/24/18 20:00 98 11/24/18 20:00 50 11/24/18 20:00 160/76 11/24/18 20:00 Mechanical Ventilator 11/24/18 19:18 91 22 97 Mechanical Ventilator 50 11/24/18 19:07 92 22 94 Mechanical Ventilator 50 92 22 50 11/24/18 19:00 164/80 11/24/18 19:00 91 21 164/80 (108) 93 11/24/18 18:00 181/72 11/24/18 18:00 96 27 168/73 (104) 95 11/24/18 17:04 160/70 11/24/18 17:00 160/70 11/24/18 17:00 99 33 160/70 (100) 92 11/24/18 16:42 93 23 50 11/24/18 16:00 98.5 96 24 162/72 (102) 94 11/24/18 16:00 162/72 11/24/18 16:00 Mechanical Ventilator 11/24/18 16:00 50 11/24/18 16:00 96 11/24/18 15:27 90 25 96 Mechanical Ventilator 50 100 22 50 11/24/18 15:00 158/68 11/24/18 15:00 92 33 158/68 (98) 93 Intake and Output 11/24/18 11/25/18 19:00 07:00 Intake Total 1386.04 ml 1290.12 ml Balance 1386.04 ml 1290.12 ml Intake Free Water 100 ml IV Total 626.04 ml 530.12 ml Tube Feeding 660 ml 660 ml Other 100 ml # Voids 10 # Bowel Movements 2 4 Microbiology Date/Time Source Procedure Growth Status 11/22/18 17:30 Indwelling Cath Urine Culture - Final NO GROWTH AFTER 48 HOURS Complete Objective HEAD AND NECK: Tracheostomy intact. LUNGS: Coarse rhonchi.Decreased breath sounds CARDIOVASCULAR: Irregular irregular S1 and S2 with no gallop. ABDOMEN: Status post G-tube, distended. EXTREMITIES: Reveal 1+ edema. Luke Prather MD Nov 25, 2018 14:31
[2018-11-25] MEDS ORDERED: NS 275ml ONE (14:52)
--- NOTE | 2018-11-25 15:49 | Surgery Progress Note ---
Surgery Progress Note Subjective Additional Comments in ICU. micro noted exam unchanged and stable Objective Last 24 Hour Vital Signs Date Time Temp Pulse Resp B/P (MAP) Pulse Ox O2 Delivery O2 Flow Rate FiO2 11/25/18 15:27 84 29 96 Mechanical Ventilator 50 90 22 50 11/25/18 15:00 94 31 156/71 (99) 92 11/25/18 14:00 89 25 149/76 (100) 94 11/25/18 13:00 90 34 154/72 (99) 95 11/25/18 12:43 90 22 50 11/25/18 12:00 88 11/25/18 12:00 50 11/25/18 12:00 99.1 87 25 149/78 (101) 95 11/25/18 12:00 Mechanical Ventilator 11/25/18 11:17 73 24 99 Mechanical Ventilator 50 78 23 50 11/25/18 11:00 83 25 143/66 (91) 96 11/25/18 10:00 88 24 138/56 (83) 97 11/25/18 09:05 94 23 50 11/25/18 09:00 94 19 167/80 (109) 92 11/25/18 08:00 50 11/25/18 08:00 Mechanical Ventilator 11/25/18 08:00 99.3 107 34 175/79 (111) 96 11/25/18 08:00 92 11/25/18 07:14 94 29 96 Mechanical Ventilator 50 103 22 50 11/25/18 06:00 162/75 11/25/18 06:00 98 36 162/75 (104) 92 11/25/18 05:11 98 24 50 11/25/18 05:00 97 27 155/71 (99) 96 11/25/18 05:00 155/71 11/25/18 04:00 98.4 90 38 199/101 (133) 92 11/25/18 04:00 Mechanical Ventilator 11/25/18 04:00 199/101 11/25/18 04:00 90 11/25/18 04:00 50 11/25/18 03:11 98 22 97 Mechanical Ventilator 50 11/25/18 03:01 95 24 96 Mechanical Ventilator 50 95 24 50 11/25/18 03:01 95 24 96 Mechanical Ventilator 50 11/25/18 03:00 97 34 168/72 (104) 92 11/25/18 03:00 168/72 11/25/18 02:00 97 26 168/88 (114) 92 11/25/18 02:00 168/88 11/25/18 01:25 91 22 50 11/25/18 01:00 168/81 11/25/18 01:00 94 38 168/81 (110) 92 11/25/18 00:00 Mechanical Ventilator 11/25/18 00:00 50 11/25/18 00:00 99.0 94 31 168/67 (100) 93 11/25/18 00:00 160/67 11/25/18 00:00 94 11/24/18 23:00 154/64 11/24/18 23:00 92 24 154/64 (94) 98 11/24/18 22:59 98 24 99 Mechanical Ventilator 50 11/24/18 22:48 93 23 95 Mechanical Ventilator 50 93 23 50 11/24/18 22:00 160/69 11/24/18 22:00 93 27 160/69 (99) 94 11/24/18 21:05 96 27 50 11/24/18 21:00 97 22 169/88 (115) 95 11/24/18 21:00 169/88 11/24/18 20:00 99.2 98 27 160/76 (104) 98 11/24/18 20:00 98 11/24/18 20:00 50 11/24/18 20:00 160/76 11/24/18 20:00 Mechanical Ventilator 11/24/18 19:18 91 22 97 Mechanical Ventilator 50 11/24/18 19:07 92 22 94 Mechanical Ventilator 50 92 22 50 11/24/18 19:00 164/80 11/24/18 19:00 91 21 164/80 (108) 93 11/24/18 18:00 181/72 11/24/18 18:00 96 27 168/73 (104) 95 11/24/18 17:04 160/70 11/24/18 17:00 160/70 11/24/18 17:00 99 33 160/70 (100) 92 11/24/18 16:42 93 23 50 11/24/18 16:00 98.5 96 24 162/72 (102) 94 11/24/18 16:00 162/72 11/24/18 16:00 Mechanical Ventilator 11/24/18 16:00 50 10/19/19 16:00 96 I&O Intake and Output 11/24/18 11/25/18 19:00 07:00 Intake Total 1386.04 ml 1290.12 ml Balance 1386.04 ml 1290.12 ml Intake Free Water 100 ml IV Total 626.04 ml 530.12 ml Tube Feeding 660 ml 660 ml Other 100 ml # Voids 10 # Bowel Movements 2 4 Dressing: saturated Wound: other Drains: other Cardiovascular: RSR Respiratory: decreased breath sounds Abdomen: soft, present bowel sounds Extremities: no cyanosis, other Plan Problems: (1) Severe sepsis Assessment & Plan: leukocytosis, anemia, lactic acidosis, fevers IV Abx imaging noted and reviewed US with no stones or dilated ducts elevated lft's likely due to liver disease exam as below cont abx trend labs leave crabtree for a few weeks thank you will follow with recs (2) Malnutrition Assessment & Plan: DAILY ESTIMATED NEEDS: Needs based on Critical care, sepsis 71.8 kg 22-30 kcals/kg 7500-5717 total kcals 1.2-2 g protein/kg 86- 144 g total protein 25-30 mL/kg 1795- 2154 total fluid mLs NUTRITION DIAGNOSIS: * Swallowing difficulty R/T respiratory status and dysphagia as evidenced by pt is vent dep, on TF. * Altered nutrition related lab values r/t sepsis, clinical status, h/o Diabetes as evidenced by critically elev WBC (47.2), low Hgb (6.6), elev BNP, low BP (96/41), BG 191, POC 179. CURRENT TF: Jevity 1.2 @ 70mL/hr x 20hr - NOW NPO ENTERAL NUTRITION RECOMMENDATIONS: Vital 1.2 @55mL/hr x24 hrs to provide 1320mL, 1584kcal, 99g pro, 1071mL free H2O * As medically appropriate to feed, rec TF change to VITAL 1.2 for critical care. * Start Vital 1,2, @25mL, advance as tolerated 10ml/hr q4-6 hrs to goal * HOB over 30 degrees/ water flush per MD --- Low Hgb (6.6), NPO per GI-> rec trophic feeds when appropriate if pt remains hypotensive. ADDITIONAL RECOMMENDATIONS: * Per SNF: HT 68 inches WT 158 lbs + Daily calibrated bed scale wts * Change TF to Vital 1.2, as medically able to feed * Monitor lytes (replete as needed) * F/up w/ WC eval . (3) Sacral decubitus ulcer Assessment & Plan: Pt presented on admission with contractures and multiple pressure injuries. Partially opened DTPI L buttocks. Base of wound moist - viable with surrounding dark and fluctuant borders.(L)1.2cm x (W)1cm. Small amt of sanguineous exudate noted. No odor noted. Hyperpigmentation noted to sacrum. Historical scar from previous wound noted to L trochanter. Penile head retracted within foreskin and small wound noted within folds of foreskin. Wound is moist and viable. No odor or exudate noted. No erythema noted periwound. Resolving pressure injury plantar R heel. Base of wound 50% epithelialized, 50% moist and viable.(L)5.5cm x (W)6.5cm. Resolving pressure injury lateral L heel. Base of wound is moist and viable with surrounding hyperpigmentation.(L)0.6cm x (W)0.5cm. Scattered loose, dry brown skin noted to medial and posterior L heel. Tx.Plan: Apply Moisture Barrier Paste to L buttocks and sacrum. Cover with Optifoam drsg. Change every 3 days and prn. Cleanse head of penis with soap and water. Apply Bacitracin oint Twice Daily. Apply Betadine to R and L heel wounds. Cover each heel with Optifoam drsg. Daily and prn. APM/ABDELRAHMAN Mattress overlay. Reposition at least every 2hours and prn. Off-load heels with pillow. Don Carvalho Nov 25, 2018 15:49
[2018-11-25] MEDS: DOPamine 400mg/250ml 250 ML IV SCH (16:22)
--- NOTE | 2018-11-25 16:28 | General Progress Note ---
Assessment/Plan Status: not improved, unchanged Assessment/Plan: IM progress note Covering for Dr. Trish Tripathi ASSESSMENT AND RECOMMENDATIONS # Leukocytosis. Likely related to underlying infection with sepsis and elevated severely on admission --> Imaging has been reviewed. Shows cxr left lung inil/v edema --> Blood cs and urine cx are reviewed --> Has been started on abx, empiric tx --> PERIPHERAL SMEAR SHOWS ATYPICAL LYMPHOCYTES --> Flow cytometry ordered with pathologist -> no atypical findings are noted --> wbc 52k-->47k-->29k->16-->12-->14->12-->12-->21-->14->11 --> picc was repositioned # Anemia of chronic disease, due to underlying chronic medical issues, multifactorial. --> Anemia w/u has been ordered --> with hyperferritinemia --> No evidence of hemolysis noted, peripheral smear has been reviewed --> Hgb goal >7. Transfuse as needed --> hgb trend 7.5-->6.6->9.1-->9.2-->8.9-->9.9->8.3-->8.5 --> 2 units transfuse on 11/15 --> will need to follow as outpatient and may need chelation therapy --> GI workup once more stable # Failure to thrive (FTT) - decreased bmi and low protein --> cea 4.3 --> will obtain q3 day caloric counts --> mirtazapine as appetite stimulant --> GI consult on a prn basis, as needed for endosc # Asystole with pauses may need pm per family --> as per cards recs # Sepsis, which has improved # PEG. # Malnutrition. 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 Greatly appreciate consultation. Subjective Cardiovascular: Denies: no symptoms, chest pain, edema, irregular heart rate, lightheadedness, palpitations, syncope, other Respiratory: Denies: no symptoms, cough, orthopnea, shortness of breath, SOB with excertion, SOB at rest, sputum, stridor, wheezing, other Neurologic/Psychiatric: Denies: no symptoms, anxiety, depressed, emotional problems, headache, numbness, paresthesia, pre-existing deficit, seizure, tingling, tremors, weakness, other Allergies: Coded Allergies: TERAZOSIN (Verified Allergy, Unknown, 10/27/17) Subjective 11/16: in the icu, is off pressors, doing better, no bleeding 11/18: no bleeding, remains on doxy and zosyn, no bleeding reported 11/19: out of the icu, on vent/trach, no major changes, dw rn 11/20: no bleeding noted, no night sweats, meds reviewed, no f/c 11/21: on vent, obtunded, with gt ongong, with picc, no bleeding 10.17: stricture advanced through with uro, with crabtree, labs noted 11/23: no events to report, no bleeding, labs reviewed, in icu 11/24: remains in the icu, with asystole, pending discussion with fam re pM 11/25: continues to have pauses, no bleeding, seen by cards, no events Objective Last 24 Hour Vital Signs Date Time Temp Pulse Resp B/P (MAP) Pulse Ox O2 Delivery O2 Flow Rate FiO2 11/25/18 15:27 84 29 96 Mechanical Ventilator 50 90 22 50 11/25/18 15:00 156/71 11/25/18 15:00 94 31 156/71 (99) 92 11/25/18 14:00 156/71 11/25/18 14:00 89 25 149/76 (100) 94 11/25/18 13:00 149/76 11/25/18 13:00 90 34 154/72 (99) 95 11/25/18 12:43 90 22 50 11/25/18 12:00 88 11/25/18 12:00 50 11/25/18 12:00 99.1 87 25 149/78 (101) 95 11/25/18 12:00 154/72 11/25/18 12:00 Mechanical Ventilator 11/25/18 11:17 73 24 99 Mechanical Ventilator 50 78 23 50 11/25/18 11:00 149/78 11/25/18 11:00 83 25 143/66 (91) 96 11/25/18 10:00 138/56 11/25/18 10:00 88 24 138/56 (83) 97 11/25/18 09:05 94 23 50 11/25/18 09:00 94 19 167/80 (109) 92 11/25/18 09:00 138/56 11/25/18 08:00 50 11/25/18 08:00 Mechanical Ventilator 11/25/18 08:00 99.3 107 34 175/79 (111) 96 11/25/18 08:00 167/80 11/25/18 08:00 92 11/25/18 07:14 94 29 96 Mechanical Ventilator 50 103 22 50 11/25/18 07:00 162/75 11/25/18 06:00 162/75 11/25/18 06:00 98 36 162/75 (104) 92 11/25/18 05:11 98 24 50 11/25/18 05:00 97 27 155/71 (99) 96 11/25/18 05:00 155/71 11/25/18 04:00 98.4 90 38 199/101 (133) 92 11/25/18 04:00 Mechanical Ventilator 11/25/18 04:00 199/101 11/25/18 04:00 90 11/25/18 04:00 50 11/25/18 03:11 98 22 97 Mechanical Ventilator 50 11/25/18 03:01 95 24 96 Mechanical Ventilator 50 95 24 50 11/25/18 03:01 95 24 96 Mechanical Ventilator 50 11/25/18 03:00 97 34 168/72 (104) 92 11/25/18 03:00 168/72 11/25/18 02:00 97 26 168/88 (114) 92 11/25/18 02:00 168/88 11/25/18 01:25 91 22 50 11/25/18 01:00 168/81 11/25/18 01:00 94 38 168/81 (110) 92 11/25/18 00:00 Mechanical Ventilator 11/25/18 00:00 50 11/25/18 00:00 99.0 94 31 168/67 (100) 93 11/25/18 00:00 160/67 11/25/18 00:00 94 11/24/18 23:00 154/64 11/24/18 23:00 92 24 154/64 (94) 98 11/24/18 22:59 98 24 99 Mechanical Ventilator 50 11/24/18 22:48 93 23 95 Mechanical Ventilator 50 93 23 50 11/24/18 22:00 160/69 11/24/18 22:00 93 27 160/69 (99) 94 11/24/18 21:05 96 27 50 11/24/18 21:00 97 22 169/88 (115) 95 11/24/18 21:00 169/88 11/24/18 20:00 99.2 98 27 160/76 (104) 98 11/24/18 20:00 98 11/24/18 20:00 50 11/24/18 20:00 160/76 11/24/18 20:00 Mechanical Ventilator 11/24/18 19:18 91 22 97 Mechanical Ventilator 50 11/24/18 19:07 92 22 94 Mechanical Ventilator 50 92 22 50 11/24/18 19:00 164/80 11/24/18 19:00 91 21 164/80 (108) 93 11/24/18 18:00 181/72 11/24/18 18:00 96 27 168/73 (104) 95 11/24/18 17:04 160/70 11/24/18 17:00 160/70 11/24/18 17:00 99 33 160/70 (100) 92 11/24/18 16:42 93 23 50 Intake and Output 11/24/18 11/25/18 19:00 07:00 Intake Total 1386.04 ml 1356.04 ml Balance 1386.04 ml 1356.04 ml Intake Free Water 100 ml IV Total 626.04 ml 596.04 ml Tube Feeding 660 ml 660 ml Other 100 ml # Voids 10 # Bowel Movements 2 4 Height (Feet): 5 Height (Inches): 5.00 Weight (Pounds): 173 Objective Vitals: reviewed Gen: no apparent distress Head: normocephalic EENT: normal ENT inspection Respiratory: other - intubated vent+ Cardiovascular: normal rate Gastrointestinal: gt - c/d/i Rectal: deferred Genitourinary: no CVA tenderness Skin: normal color +++ decub : ++ Beny Fields MD Nov 25, 2018 16:28
--- NOTE | 2018-11-25 18:28 | General Progress Note ---
Assessment/Plan Status: not improved, unchanged Assessment/Plan: Assessment (1) Dysphagia / PEG (percutaneous endoscopic gastrostomy) status ICD Codes: Z93.1 - Gastrostomy status SNOMED: 953185934, 845000835 (2) GIB (gastrointestinal bleeding) ICD Codes: K92.2 - Gastrointestinal hemorrhage, unspecified SNOMED: 71168266 (3) Anemia ICD Codes: D64.9 - Anemia, unspecified SNOMED: 985038121 (4) Constipation ICD Codes: K59.00 - Constipation, unspecified SNOMED: 95804671 (5) Abnormal LFT (6) DM (7) Encephalopathy due to metabolic factor or toxin SNOMED: 590195083 Assessment/Plan OB stool positive x2 hepatitis panel negative s/p EGD SUMMARY OF FINDINGS: Gastritis, otherwise normal upper endoscopic examination. RECOMMENDATIONS: Continue G-tube feeding. Monitor hemoglobin and hematocrit. Transfuse as needed. Monitor for stool OB. The patient might need colonoscopy if continues to bleed. Hold iron supplementation given elevated ferritin levels abx fu labs Subjective Allergies: Coded Allergies: TERAZOSIN (Verified Allergy, Unknown, 10/27/17) Subjective above noted d/w RN tolerating TF Objective Last 24 Hour Vital Signs Date Time Temp Pulse Resp B/P (MAP) Pulse Ox O2 Delivery O2 Flow Rate FiO2 11/25/18 17:00 87 25 141/74 (96) 98 11/25/18 17:00 141/74 11/25/18 16:45 92 30 Mechanical Ventilator 50 11/25/18 16:22 156/61 11/25/18 16:00 98.8 94 23 171/80 (110) 97 11/25/18 16:00 93 11/25/18 16:00 50 11/25/18 16:00 156/61 11/25/18 16:00 Mechanical Ventilator 11/25/18 15:27 84 29 96 Mechanical Ventilator 50 90 22 50 11/25/18 15:00 156/71 11/25/18 15:00 94 31 156/71 (99) 92 11/25/18 14:00 156/71 11/25/18 14:00 89 25 149/76 (100) 94 11/25/18 13:00 149/76 11/25/18 13:00 90 34 154/72 (99) 95 11/25/18 12:43 90 22 50 11/25/18 12:00 88 11/25/18 12:00 50 11/25/18 12:00 99.1 87 25 149/78 (101) 95 11/25/18 12:00 154/72 11/25/18 12:00 Mechanical Ventilator 11/25/18 11:17 73 24 99 Mechanical Ventilator 50 78 23 50 11/25/18 11:00 149/78 11/25/18 11:00 83 25 143/66 (91) 96 11/25/18 10:00 138/56 11/25/18 10:00 88 24 138/56 (83) 97 11/25/18 09:05 94 23 50 11/25/18 09:00 94 19 167/80 (109) 92 11/25/18 09:00 138/56 11/25/18 08:00 50 11/25/18 08:00 Mechanical Ventilator 11/25/18 08:00 99.3 107 34 175/79 (111) 96 11/25/18 08:00 167/80 11/25/18 08:00 92 11/25/18 07:14 94 29 96 Mechanical Ventilator 50 103 22 50 11/25/18 07:00 162/75 11/25/18 06:00 162/75 11/25/18 06:00 98 36 162/75 (104) 92 11/25/18 05:11 98 24 50 11/25/18 05:00 97 27 155/71 (99) 96 11/25/18 05:00 155/71 11/25/18 04:00 98.4 90 38 199/101 (133) 92 11/25/18 04:00 Mechanical Ventilator 11/25/18 04:00 199/101 11/25/18 04:00 90 11/25/18 04:00 50 11/25/18 03:11 98 22 97 Mechanical Ventilator 50 11/25/18 03:01 95 24 96 Mechanical Ventilator 50 95 24 50 11/25/18 03:01 95 24 96 Mechanical Ventilator 50 11/25/18 03:00 97 34 168/72 (104) 92 11/25/18 03:00 168/72 11/25/18 02:00 97 26 168/88 (114) 92 11/25/18 02:00 168/88 11/25/18 01:25 91 22 50 11/25/18 01:00 168/81 10/20/19 01:00 94 38 168/81 (110) 92 11/25/18 00:00 Mechanical Ventilator 11/25/18 00:00 50 11/25/18 00:00 99.0 94 31 168/67 (100) 93 11/25/18 00:00 160/67 11/25/18 00:00 94 11/24/18 23:00 154/64 11/24/18 23:00 92 24 154/64 (94) 98 11/24/18 22:59 98 24 99 Mechanical Ventilator 50 11/24/18 22:48 93 23 95 Mechanical Ventilator 50 93 23 50 11/24/18 22:00 160/69 11/24/18 22:00 93 27 160/69 (99) 94 11/24/18 21:05 96 27 50 11/24/18 21:00 97 22 169/88 (115) 95 11/24/18 21:00 169/88 11/24/18 20:00 99.2 98 27 160/76 (104) 98 11/24/18 20:00 98 11/24/18 20:00 50 11/24/18 20:00 160/76 11/24/18 20:00 Mechanical Ventilator 11/24/18 19:18 91 22 97 Mechanical Ventilator 50 11/24/18 19:07 92 22 94 Mechanical Ventilator 50 92 22 50 11/24/18 19:00 164/80 11/24/18 19:00 91 21 164/80 (108) 93 Intake and Output 11/24/18 11/25/18 19:00 07:00 Intake Total 1386.04 ml 1356.04 ml Balance 1386.04 ml 1356.04 ml Intake Free Water 100 ml IV Total 626.04 ml 596.04 ml Tube Feeding 660 ml 660 ml Other 100 ml # Voids 10 # Bowel Movements 2 4 Height (Feet): 5 Height (Inches): 5.00 Weight (Pounds): 173 Objective Debilitated AA man NCAT (+) trach CTA RR abd distended, tympanitic trace edema Sameer Don MD Nov 25, 2018 18:28
[2018-11-25] MEDS: Dyna-Hex 2% Top Sol 2oz TOPIC SCH (20:50)
[2018-11-25] MEDS: Tamsulosin 0.4mg cap ORAL SCH (20:50)
[2018-11-26] VITALS (40 sets, daily range): BP systolic 128–182; BP diastolic 54–130
[2018-11-26] MEDS: Albuterol/Ipratropium 3ml neb HHN SCH ×6 (02:58→23:56)
[2018-11-26] MEDS: Piperacillin/Tazobactam 3.375 GM in NS 110 ML IVPB SCH ×3 (03:57→19:55)
[2018-11-26 05:15] LABS: BASOPHILS % (AUTO) 0.7 % (0.0-2.0); EOSINOPHILS % (AUTO) 1.3 % (0.0-3.0); HEMATOCRIT 29.8 % (42.0-52.0); HEMOGLOBIN 9.3 G/DL (14.2-18.0); LYMPHOCYTES % (AUTO) 11.8 % (20.0-45.0); MEAN CORPUSCULAR VOLUME 87 FL (80-99); NEUTROPHILS % (AUTO) 76.2 % (45.0-75.0); PLATELET COUNT 233 K/UL (150-450); RED BLOOD COUNT 3.43 M/UL (4.70-6.10); RED CELL DISTRIBUTION WIDTH 16.3 % (11.6-14.8); WHITE BLOOD COUNT 14.6 K/UL (4.8-10.8)
[2018-11-26] MEDS: NovoLOG Insulin Flexpen SUBQ SCH ×4 (05:39→21:00)
[2018-11-26 05:59] LABS: ALANINE AMINOTRANSFERASE 85 U/L (12-78); ALBUMIN 2.1 G/DL (3.4-5.0); ALBUMIN/GLOBULIN RATIO 0.4 (1.0-2.7); ALKALINE PHOSPHATASE 128 U/L (46-116); ANION GAP 3 mmol/L (5-15); ASPARTATE AMINO TRANSFERASE 34 U/L (15-37); BILIRUBIN,TOTAL 0.4 MG/DL (0.2-1.0); BLOOD UREA NITROGEN 16 mg/dL (7-18); CALCIUM 8.7 MG/DL (8.5-10.1); CARBON DIOXIDE 33 MMOL/L (21-32); CHLORIDE 114 MMOL/L (98-107); CREATININE 0.8 MG/DL (0.55-1.30); POTASSIUM 4.1 MMOL/L (3.5-5.1); SODIUM 150 MMOL/L (136-145)
[2018-11-26] MEDS: ZyPREXA Zydis 5mg tab GT SCH (08:05)
[2018-11-26] MEDS: Pantoprazole Inj IVP SCH ×2 (08:06→21:08)
--- NOTE | 2018-11-26 08:40 | Critical Care Progress Note ---
Assessment/Plan Assessment/Plan Impression: ho Pneumonia Ventilator dependant respiratory failure chronic respiratory failure Severe sepsis -history of NSTEMI Anemia Dysphagia s/p G tube Chronic wounds Dementia Organic Brain Syndrome Diabetes Chronic renal disease BPH Penile wound CHF H/o Hypertension severe Protein Calorie Malnutrition Plan IV antibiotics reviewed and cultures noted reviewed hemodynamics and need for pressors HHN Q4 and monitor secretions and suction PRN on full vent support-AC- unable to wean at present monitor oxygen needs- and adjust monitor HH DVT and PUD prophylaxis Gtube feeds as able; monitor residuals monitor residuals for change Aspiration precautions Full Code noted multiorgan disease and monitoring remains critical at present hope to transition out of ICU will need terminal gauger 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 care medications/laboratory data/nursing notes/ICU care reviewed in detail note reviewed and edited care discussed with RN and RT ICU time spent 42 minutes Critical Care - Subjective Interval Events: ICU care reviewed all organ systems reviewed ICU flowsheets reviewed ROS Limited/Unobtainable: Yes Condition: critical EKG Rhythm: Sinus Rhythm Residuals: minimal Tube Feeding Tolerated: yes I&O: Intake and Output 11/25/18 11/26/18 19:00 07:00 Intake Total 1436.04 ml 1373.54 ml Output Total 200 ml Balance 1436.04 ml 1173.54 ml Intake Free Water 150 ml 60 ml IV Total 626.04 ml 653.54 ml Tube Feeding 660 ml 660 ml Output Urine Total 200 ml # Voids 7 2 # Bowel Movements 3 2 Critical Care - Objective Last 24 Hour Vital Signs Date Time Temp Pulse Resp B/P (MAP) Pulse Ox O2 Delivery O2 Flow Rate FiO2 11/26/18 07:30 98.8 94 25 181/88 (119) 88 11/26/18 07:07 92 22 98 Mechanical Ventilator 50 91 22 50 11/26/18 07:00 91 21 169/82 (111) 11/26/18 07:00 181/88 11/26/18 06:30 93 21 165/76 (105) 11/26/18 06:00 90 22 148/74 (98) 11/26/18 06:00 148/74 11/26/18 05:30 92 22 169/77 (107) 11/26/18 05:00 94 39 182/83 (116) 11/26/18 05:00 182/83 11/26/18 04:55 86 24 50 11/26/18 04:30 95 26 152/117 (129) 96 11/26/18 04:00 99.0 92 24 138/76 (96) 97 11/26/18 04:00 50 11/26/18 04:00 Mechanical Ventilator 11/26/18 04:00 138/76 11/26/18 04:00 78 11/26/18 03:30 81 22 128/67 (87) 100 11/26/18 03:08 94 23 99 Mechanical Ventilator 50 11/26/18 03:00 97 22 129/71 (90) 100 11/26/18 03:00 129/71 11/26/18 02:58 91 23 99 Mechanical Ventilator 50 91 23 50 11/26/18 02:30 93 22 140/63 (88) 100 11/26/18 02:00 175/96 11/26/18 02:00 80 27 175/96 (122) 86 11/26/18 01:30 96 22 166/82 (110) 96 11/26/18 01:00 90 23 154/76 (102) 93 11/26/18 01:00 166/82 11/26/18 00:55 95 22 50 11/26/18 00:30 97 23 152/75 (100) 100 11/26/18 00:00 86 11/26/18 00:00 Mechanical Ventilator 11/26/18 00:00 50 11/26/18 00:00 152/75 11/26/18 00:00 99.2 95 22 141/69 (93) 97 11/25/18 23:30 92 22 143/66 (91) 100 11/25/18 23:00 91 22 100 Mechanical Ventilator 50 11/25/18 23:00 104 22 149/73 (98) 100 11/25/18 23:00 149/73 11/25/18 22:50 92 22 100 Mechanical Ventilator 50 92 22 50 11/25/18 22:30 91 22 135/70 (91) 11/25/18 22:00 135/70 11/25/18 22:00 92 22 147/75 (99) 95 11/25/18 21:30 98 24 153/72 (99) 100 11/25/18 21:04 113 24 50 11/25/18 21:00 93 25 158/92 (114) 91 11/25/18 21:00 153/72 11/25/18 20:50 127/90 11/25/18 20:30 89 20 127/90 (102) 100 11/25/18 20:00 Mechanical Ventilator 11/25/18 20:00 50 11/25/18 20:00 98.6 92 23 140/64 (89) 100 11/25/18 20:00 127/90 11/25/18 20:00 88 11/25/18 19:30 97 25 150/95 (113) 98 11/25/18 19:25 113 23 100 Mechanical Ventilator 50 11/25/18 19:14 89 22 99 Mechanical Ventilator 50 89 22 50 11/25/18 19:00 150/95 11/25/18 19:00 94 22 149/77 (101) 92 11/25/18 18:00 181/76 11/25/18 18:00 86 21 181/76 (111) 97 11/25/18 17:00 87 25 141/74 (96) 98 11/25/18 17:00 141/74 11/25/18 16:45 92 30 Mechanical Ventilator 50 11/25/18 16:22 156/61 11/25/18 16:00 98.8 94 23 171/80 (110) 97 11/25/18 16:00 93 11/25/18 16:00 50 11/25/18 16:00 156/61 11/25/18 16:00 Mechanical Ventilator 11/25/18 15:27 84 29 96 Mechanical Ventilator 50 90 22 50 11/25/18 15:00 156/71 11/25/18 15:00 94 31 156/71 (99) 92 11/25/18 14:00 156/71 11/25/18 14:00 89 25 149/76 (100) 94 11/25/18 13:00 149/76 11/25/18 13:00 90 34 154/72 (99) 95 11/25/18 12:43 90 22 50 11/25/18 12:00 88 11/25/18 12:00 50 11/25/18 12:00 99.1 87 25 149/78 (101) 95 11/25/18 12:00 154/72 11/25/18 12:00 Mechanical Ventilator 11/25/18 11:17 73 24 99 Mechanical Ventilator 50 78 23 50 11/25/18 11:00 149/78 11/25/18 11:00 83 25 143/66 (91) 96 11/25/18 10:00 138/56 11/25/18 10:00 88 24 138/56 (83) 97 11/25/18 09:05 94 23 50 11/25/18 09:00 94 19 167/80 (109) 92 11/25/18 09:00 138/56 Labs: Labs Test 11/23/18 10:29 11/23/18 20:48 11/24/18 04:50 11/26/18 04:50 Arterial Blood pH 7.299 (7.350-7.450) 7.388 (7.350-7.450) Arterial Blood Partial Pressure CO2 58.9 mmHg (35.0-45.0) 48.8 mmHg (35.0-45.0) Arterial Blood Partial Pressure O2 72.9 mmHg (75.0-100.0) 67.5 mmHg (75.0-100.0) Arterial Blood HCO3 28.3 mmol/L (22.0-26.0) 28.7 mmol/L (22.0-26.0) Arterial Blood Oxygen Saturation 93.4 % (95-100) 93.5 % (95-100) Arterial Blood Base Excess 1.2 (-2-2) 3.2 (-2-2) Ebenezer Test Positive Positive White Blood Count 11.3 K/UL (4.8-10.8) 14.6 K/UL (4.8-10.8) Red Blood Count 3.13 M/UL (4.70-6.10) 3.43 M/UL (4.70-6.10) Hemoglobin 8.5 G/DL (14.2-18.0) 9.3 G/DL (14.2-18.0) Hematocrit 26.8 % (42.0-52.0) 29.8 % (42.0-52.0) Mean Corpuscular Volume 86 FL (80-99) 87 FL (80-99) Mean Corpuscular Hemoglobin 27.2 PG (27.0-31.0) 27.1 PG (27.0-31.0) Mean Corpuscular Hemoglobin Concent 31.7 G/DL (32.0-36.0) 31.2 G/DL (32.0-36.0) Red Cell Distribution Width 15.9 % (11.6-14.8) 16.3 % (11.6-14.8) Platelet Count 195 K/UL (150-450) 233 K/UL (150-450) Mean Platelet Volume 6.8 FL (6.5-10.1) 6.3 FL (6.5-10.1) Neutrophils (%) (Auto) 73.0 % (45.0-75.0) 76.2 % (45.0-75.0) Lymphocytes (%) (Auto) 11.5 % (20.0-45.0) 11.8 % (20.0-45.0) Monocytes (%) (Auto) 11.9 % (1.0-10.0) 10.0 % (1.0-10.0) Eosinophils (%) (Auto) 2.8 % (0.0-3.0) 1.3 % (0.0-3.0) Basophils (%) (Auto) 0.8 % (0.0-2.0) 0.7 % (0.0-2.0) Sodium Level 150 MMOL/L (136-145) 150 MMOL/L (136-145) Potassium Level 3.9 MMOL/L (3.5-5.1) 4.1 MMOL/L (3.5-5.1) Chloride Level 114 MMOL/L (98-107) 114 MMOL/L (98-107) Carbon Dioxide Level 31 MMOL/L (21-32) 33 MMOL/L (21-32) Anion Gap 5 mmol/L (5-15) 3 mmol/L (5-15) Blood Urea Nitrogen 18 mg/dL (7-18) 16 mg/dL (7-18) Creatinine 0.9 MG/DL (0.55-1.30) 0.8 MG/DL (0.55-1.30) Estimat Glomerular Filtration Rate mL/min (>60) mL/min (>60) Glucose Level 113 MG/DL (74-106) 121 MG/DL (74-106) Calcium Level 8.8 MG/DL (8.5-10.1) 8.7 MG/DL (8.5-10.1) Phosphorus Level 3.1 MG/DL (2.5-4.9) Magnesium Level 1.6 MG/DL (1.8-2.4) Total Bilirubin 0.4 MG/DL (0.2-1.0) 0.4 MG/DL (0.2-1.0) Aspartate Amino Transf (AST/SGOT) 37 U/L (15-37) 34 U/L (15-37) Alanine Aminotransferase (ALT/SGPT) 89 U/L (12-78) 85 U/L (12-78) Alkaline Phosphatase 117 U/L (46-116) 128 U/L (46-116) C-Reactive Protein, Quantitative 11.0 mg/dL (0.00-0.90) Pro-B-Type Natriuretic Peptide 3577 pg/mL (0-125) Total Protein 6.6 G/DL (6.4-8.2) 7.1 G/DL (6.4-8.2) Albumin 2.0 G/DL (3.4-5.0) 2.1 G/DL (3.4-5.0) Globulin 4.6 g/dL 5.0 g/dL Albumin/Globulin Ratio 0.4 (1.0-2.7) 0.4 (1.0-2.7) Objective: WDWN NAD on vent and poorly responsive reduced breath sounds bilaterally with noted rhonchi [id number] without MRG NABS nontender no HSM; GT; non distended no CC mild edema nonfocal reduced LOC skin noted reviewed and edited Accucheck: 135 Chele Wolfe MD Nov 26, 2018 08:40
--- NOTE | 2018-11-26 12:05 | Cardiology Report ---
APPROVED REPORT EKG Measurement Heart [id number] PA [id number] Normal sinus rhythm Indeterminate axis Low voltage QRS Incomplete right bundle branch block Nonspecific T wave abnormality Abnormal ECG
--- NOTE | 2018-11-26 12:55 | Infectious Diseases Prog Note ---
Assessment/Plan Assessment/Plan IMPRESSION: Sepsis, Pyuria/ UTI Pneumonia BPH, ventilator-dependent respiratory failure Leukemoid reaction,resolved Acute renal failure, improving Diabetes mellitus, anemia, hypoxemic respiratory failure, dementia. 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 CXR & Sputum culture Clear for pacemaker placement Subjective ROS Limited/Unobtainable: Yes Respiratory: Reports: other - moderate secretions Cardiovascular: Reports: other - on low dose Dopami Allergies: Coded Allergies: TERAZOSIN (Verified Allergy, Unknown, 10/27/17) Objective Vital Signs Last 24 Hour Vital Signs Date Time Temp Pulse Resp B/P (MAP) Pulse Ox O2 Delivery O2 Flow Rate FiO2 11/26/18 12:30 85 13 160/75 (103) 92 11/26/18 12:00 99.0 87 21 160/70 (100) 92 11/26/18 12:00 Mechanical Ventilator 11/26/18 12:00 50 11/26/18 12:00 160/75 11/26/18 12:00 93 11/26/18 11:30 87 13 156/66 (96) 93 11/26/18 11:00 160/70 11/26/18 11:00 95 17 165/68 (100) 92 11/26/18 10:36 92 22 92 Mechanical Ventilator 50 85 22 50 11/26/18 10:30 87 25 166/95 (118) 77 11/26/18 10:00 142/62 11/26/18 10:00 50 11/26/18 10:00 87 16 142/62 (88) 97 11/26/18 09:30 87 22 142/56 (84) 97 11/26/18 09:00 92 22 146/54 (84) 100 11/26/18 09:00 87 20 155/69 (97) 97 11/26/18 09:00 142/56 11/26/18 08:55 106 22 50 11/26/18 08:30 92 22 146/54 (84) 100 11/26/18 08:00 50 11/26/18 08:00 146/54 11/26/18 08:00 90 21 179/78 (111) 97 11/26/18 08:00 Mechanical Ventilator 11/26/18 08:00 94 11/26/18 07:30 98.8 94 25 181/88 (119) 88 11/26/18 07:07 92 22 98 Mechanical Ventilator 50 91 22 50 11/26/18 07:00 91 21 169/82 (111) 11/26/18 07:00 181/88 11/26/18 06:30 93 21 165/76 (105) 11/26/18 06:00 90 22 148/74 (98) 11/26/18 06:00 148/74 11/26/18 05:30 92 22 169/77 (107) 11/26/18 05:00 94 39 182/83 (116) 11/26/18 05:00 182/83 11/26/18 04:55 86 24 50 11/26/18 04:30 95 26 152/117 (129) 96 11/26/18 04:00 99.0 92 24 138/76 (96) 97 11/26/18 04:00 50 11/26/18 04:00 Mechanical Ventilator 11/26/18 04:00 138/76 11/26/18 04:00 78 11/26/18 03:30 81 22 128/67 (87) 100 11/26/18 03:08 94 23 99 Mechanical Ventilator 50 11/26/18 03:00 97 22 129/71 (90) 100 11/26/18 03:00 129/71 11/26/18 02:58 91 23 99 Mechanical Ventilator 50 91 23 50 11/26/18 02:30 93 22 140/63 (88) 100 11/26/18 02:00 175/96 11/26/18 02:00 80 27 175/96 (122) 86 11/26/18 01:30 96 22 166/82 (110) 96 11/26/18 01:00 90 23 154/76 (102) 93 11/26/18 01:00 166/82 11/26/18 00:55 95 22 50 11/26/18 00:30 97 23 152/75 (100) 100 11/26/18 00:00 86 11/26/18 00:00 Mechanical Ventilator 11/26/18 00:00 50 11/26/18 00:00 152/75 11/26/18 00:00 99.2 95 22 141/69 (93) 97 11/25/18 23:30 92 22 143/66 (91) 100 11/25/18 23:00 91 22 100 Mechanical Ventilator 50 11/25/18 23:00 104 22 149/73 (98) 100 11/25/18 23:00 149/73 11/25/18 22:50 92 22 100 Mechanical Ventilator 50 92 22 50 11/25/18 22:30 91 22 135/70 (91) 11/25/18 22:00 135/70 11/25/18 22:00 92 22 147/75 (99) 95 11/25/18 21:30 98 24 153/72 (99) 100 11/25/18 21:04 113 24 50 11/25/18 21:00 93 25 158/92 (114) 91 11/25/18 21:00 153/72 11/25/18 20:50 127/90 11/25/18 20:30 89 20 127/90 (102) 100 11/25/18 20:00 Mechanical Ventilator 11/25/18 20:00 50 11/25/18 20:00 98.6 92 23 140/64 (89) 100 11/25/18 20:00 127/90 11/25/18 20:00 88 11/25/18 19:30 97 25 150/95 (113) 98 11/25/18 19:25 113 23 100 Mechanical Ventilator 50 11/25/18 19:14 89 22 99 Mechanical Ventilator 50 89 22 50 11/25/18 19:00 150/95 11/25/18 19:00 94 22 149/77 (101) 92 11/25/18 18:00 181/76 11/25/18 18:00 86 21 181/76 (111) 97 11/25/18 17:00 87 25 141/74 (96) 98 11/25/18 17:00 141/74 11/25/18 16:45 92 30 Mechanical Ventilator 50 11/25/18 16:22 156/61 11/25/18 16:00 98.8 94 23 171/80 (110) 97 11/25/18 16:00 93 11/25/18 16:00 50 11/25/18 16:00 156/61 11/25/18 16:00 Mechanical Ventilator 11/25/18 15:27 84 29 96 Mechanical Ventilator 50 90 22 50 11/25/18 15:00 156/71 11/25/18 15:00 94 31 156/71 (99) 92 11/25/18 14:00 156/71 11/25/18 14:00 89 25 149/76 (100) 94 11/25/18 13:00 149/76 11/25/18 13:00 90 34 154/72 (99) 95 Height (Feet): 5 Height (Inches): 5.00 Weight (Pounds): 167 HEENT: status post trach Respiratory/Chest: decreased breath sounds, other - on ventilator Cardiovascular: normal rate, other - PICC line Abdomen: distended, other - GT feeding Extremities: other - generalized edema Neurologic/Psychiatric: aphasia Laboratory Tests Test 11/26/18 04:50 White Blood Count 14.6 K/UL (4.8-10.8) H Red Blood Count 3.43 M/UL (4.70-6.10) L Hemoglobin 9.3 G/DL (14.2-18.0) L Hematocrit 29.8 % (42.0-52.0) L Mean Corpuscular Volume 87 FL (80-99) Mean Corpuscular Hemoglobin 27.1 PG (27.0-31.0) Mean Corpuscular Hemoglobin Concent 31.2 G/DL (32.0-36.0) L Red Cell Distribution Width 16.3 % (11.6-14.8) H Platelet Count 233 K/UL (150-450) Mean Platelet Volume 6.3 FL (6.5-10.1) L Neutrophils (%) (Auto) 76.2 % (45.0-75.0) H Lymphocytes (%) (Auto) 11.8 % (20.0-45.0) L Monocytes (%) (Auto) 10.0 % (1.0-10.0) Eosinophils (%) (Auto) 1.3 % (0.0-3.0) Basophils (%) (Auto) 0.7 % (0.0-2.0) Sodium Level 150 MMOL/L (136-145) H Potassium Level 4.1 MMOL/L (3.5-5.1) Chloride Level 114 MMOL/L (98-107) H Carbon Dioxide Level 33 MMOL/L (21-32) H Anion Gap 3 mmol/L (5-15) L Blood Urea Nitrogen 16 mg/dL (7-18) Creatinine 0.8 MG/DL (0.55-1.30) Estimat Glomerular Filtration Rate mL/min (>60) Glucose Level 121 MG/DL (74-106) H Calcium Level 8.7 MG/DL (8.5-10.1) Total Bilirubin 0.4 MG/DL (0.2-1.0) Aspartate Amino Transf (AST/SGOT) 34 U/L (15-37) Alanine Aminotransferase (ALT/SGPT) 85 U/L (12-78) H Alkaline Phosphatase 128 U/L (46-116) H Total Protein 7.1 G/DL (6.4-8.2) Albumin 2.1 G/DL (3.4-5.0) L Globulin 5.0 g/dL Albumin/Globulin Ratio 0.4 (1.0-2.7) L Current Medications Medications (Trade) Dose Ordered Sig/Ruthie Route PRN Reason Start Time Stop Time Status Last Admin Dose Admin Acetaminophen (Tylenol) 650 mg Q6H PRN GT Mild Pain/Temp > 100.5 11/23/18 09:39 12/15/18 09:38 11/25/18 16:22 Albuterol/ Ipratropium (Albuterol/ Ipratropium) 3 ml Q4HRT HHN 11/23/18 11:00 11/28/18 10:59 11/26/18 10:35 Bisacodyl (Dulcolax) 10 mg DAILYPRN PRN RECTAL Constipation 11/23/18 09:39 12/18/18 09:38 Chlorhexidine Gluconate (Rachael-Hex 2%) 1 applic DAILY@2000 TOPIC 11/23/18 20:00 12/15/18 19:59 11/25/18 20:50 Dextrose 1,000 ml @ 30 mls/hr Q24H IV 11/23/18 10:45 12/23/18 10:44 11/26/18 05:40 Dextrose (Dextrose 50%) 25 ml Q30M PRN IV Hypoglycemia 11/23/18 09:39 12/15/18 09:38 Dextrose (Dextrose 50%) 50 ml Q30M PRN IV Hypoglycemia 11/23/18 09:45 12/15/18 05:44 Dopamine HCl/ Dextrose 250 ml @ 8.42 mls/hr Q24H IV 11/23/18 16:41 12/23/18 16:40 11/25/18 16:22 Hydromorphone HCl (Dilaudid) 0.5 mg Q4H PRN IVP For Pain 11/23/18 09:40 11/29/18 09:39 Insulin Aspart (NovoLOG) BEFORE MEALS AND HS SUBQ 11/23/18 11:30 12/15/18 06:29 11/26/18 05:39 Lorazepam (Ativan 2mg/ml 1ml) 0.5 mg Q2H PRN IV For Anxiety 11/23/18 10:45 11/30/18 10:44 11/23/18 18:16 Olanzapine (ZyPREXA Zydis) 7.5 mg DAILY GT 11/24/18 09:00 12/15/18 08:59 11/26/18 08:05 Pantoprazole (Protonix) 40 mg EVERY 12 HOURS IVP 11/23/18 21:00 12/15/18 08:59 11/26/18 08:06 Piperacillin Sod/ Tazobactam Sod 3.375 gm/Sodium Chloride 110 ml @ 27.5 mls/hr Q8H IVPB 11/23/18 12:00 11/27/18 23:59 11/26/18 12:05 Quetiapine Fumarate (SEROquel) 50 mg DAILY GT 11/24/18 09:00 12/15/18 08:59 11/26/18 08:05 Tamsulosin HCl (Flomax) 0.4 mg BEDTIME ORAL 11/23/18 21:00 12/15/18 20:59 11/25/18 20:50 Anam Cruz MD Nov 26, 2018 12:55
--- NOTE | 2018-11-26 13:53 | GI Progress Note ---
Assessment/Plan Problems: (1) PEG (percutaneous endoscopic gastrostomy) status ICD Codes: Z93.1 - Gastrostomy status SNOMED: 842138058, 086561349 (2) GIB (gastrointestinal bleeding) ICD Codes: K92.2 - Gastrointestinal hemorrhage, unspecified SNOMED: 86819721 (3) Anemia ICD Codes: D64.9 - Anemia, unspecified SNOMED: 357930060 (4) Constipation ICD Codes: K59.00 - Constipation, unspecified SNOMED: 11095231 (5) Gastrostomy tube dependent ICD Codes: Z93.1 - Gastrostomy status SNOMED: 488473524, 497614820 (6) DM (7) Encephalopathy due to metabolic factor or toxin SNOMED: 089975913 Status: unchanged Status Narrative Discussed with Dr. Coronel. Assessment/Plan OB stool positive x2 hepatitis panel negative s/p EGD SUMMARY OF FINDINGS: Gastritis, otherwise normal upper endoscopic examination. RECOMMENDATIONS: Resume G-tube feeding. Monitor hemoglobin and hematocrit. Transfuse as needed. Monitor for stool OB. The patient might need colonoscopy if continues to bleed. Hold iron supplementation given elevated ferritin levels abx fu labs The patient was seen and examined at bedside and all new and available data was reviewed in the patients chart. I agree with the above findings, impression and plan. (Patient seen earlier today. Signature stamp does not reflect patient encounter time.). - Juan Coronel MD Subjective Subjective limited Objective Last 24 Hour Vital Signs Date Time Temp Pulse Resp B/P (MAP) Pulse Ox O2 Delivery O2 Flow Rate FiO2 11/26/18 12:53 75 11/26/18 12:51 97 29 50 11/26/18 12:30 85 13 160/75 (103) 92 11/26/18 12:00 99.0 87 21 160/70 (100) 92 11/26/18 12:00 Mechanical Ventilator 11/26/18 12:00 50 11/26/18 12:00 160/75 11/26/18 12:00 93 11/26/18 11:30 87 13 156/66 (96) 93 11/26/18 11:00 160/70 11/26/18 11:00 95 17 165/68 (100) 92 11/26/18 10:36 92 22 92 Mechanical Ventilator 50 85 22 50 11/26/18 10:30 87 25 166/95 (118) 77 11/26/18 10:00 142/62 11/26/18 10:00 50 11/26/18 10:00 87 16 142/62 (88) 97 11/26/18 09:30 87 22 142/56 (84) 97 11/26/18 09:00 92 22 146/54 (84) 100 11/26/18 09:00 87 20 155/69 (97) 97 11/26/18 09:00 142/56 11/26/18 08:55 106 22 50 11/26/18 08:30 92 22 146/54 (84) 100 11/26/18 08:00 50 11/26/18 08:00 146/54 11/26/18 08:00 90 21 179/78 (111) 97 11/26/18 08:00 Mechanical Ventilator 11/26/18 08:00 94 11/26/18 07:30 98.8 94 25 181/88 (119) 88 11/26/18 07:07 92 22 98 Mechanical Ventilator 50 91 22 50 11/26/18 07:00 91 21 169/82 (111) 11/26/18 07:00 181/88 11/26/18 06:30 93 21 165/76 (105) 11/26/18 06:00 90 22 148/74 (98) 11/26/18 06:00 148/74 11/26/18 05:30 92 22 169/77 (107) 11/26/18 05:00 94 39 182/83 (116) 11/26/18 05:00 182/83 11/26/18 04:55 86 24 50 11/26/18 04:30 95 26 152/117 (129) 96 11/26/18 04:00 99.0 92 24 138/76 (96) 97 11/26/18 04:00 50 11/26/18 04:00 Mechanical Ventilator 11/26/18 04:00 138/76 11/26/18 04:00 78 11/26/18 03:30 81 22 128/67 (87) 100 11/26/18 03:08 94 23 99 Mechanical Ventilator 50 11/26/18 03:00 97 22 129/71 (90) 100 11/26/18 03:00 129/71 11/26/18 02:58 91 23 99 Mechanical Ventilator 50 91 23 50 11/26/18 02:30 93 22 140/63 (88) 100 11/26/18 02:00 175/96 11/26/18 02:00 80 27 175/96 (122) 86 11/26/18 01:30 96 22 166/82 (110) 96 11/26/18 01:00 90 23 154/76 (102) 93 11/26/18 01:00 166/82 11/26/18 00:55 95 22 50 11/26/18 00:30 97 23 152/75 (100) 100 11/26/18 00:00 86 11/26/18 00:00 Mechanical Ventilator 11/26/18 00:00 50 11/26/18 00:00 152/75 11/26/18 00:00 99.2 95 22 141/69 (93) 97 11/25/18 23:30 92 22 143/66 (91) 100 11/25/18 23:00 91 22 100 Mechanical Ventilator 50 11/25/18 23:00 104 22 149/73 (98) 100 11/25/18 23:00 149/73 11/25/18 22:50 92 22 100 Mechanical Ventilator 50 92 22 50 11/25/18 22:30 91 22 135/70 (91) 11/25/18 22:00 135/70 11/25/18 22:00 92 22 147/75 (99) 95 11/25/18 21:30 98 24 153/72 (99) 100 11/25/18 21:04 113 24 50 11/25/18 21:00 93 25 158/92 (114) 91 11/25/18 21:00 153/72 11/25/18 20:50 127/90 11/25/18 20:30 89 20 127/90 (102) 100 11/25/18 20:00 Mechanical Ventilator 11/25/18 20:00 50 11/25/18 20:00 98.6 92 23 140/64 (89) 100 11/25/18 20:00 127/90 11/25/18 20:00 88 11/25/18 19:30 97 25 150/95 (113) 98 11/25/18 19:25 113 23 100 Mechanical Ventilator 50 11/25/18 19:14 89 22 99 Mechanical Ventilator 50 89 22 50 11/25/18 19:00 150/95 11/25/18 19:00 94 22 149/77 (101) 92 11/25/18 18:00 181/76 11/25/18 18:00 86 21 181/76 (111) 97 11/25/18 17:00 87 25 141/74 (96) 98 11/25/18 17:00 141/74 11/25/18 16:45 92 30 Mechanical Ventilator 50 11/25/18 16:22 156/61 11/25/18 16:00 98.8 94 23 171/80 (110) 97 11/25/18 16:00 93 11/25/18 16:00 50 11/25/18 16:00 156/61 11/25/18 16:00 Mechanical Ventilator 11/25/18 15:27 84 29 96 Mechanical Ventilator 50 90 22 50 11/25/18 15:00 156/71 11/25/18 15:00 94 31 156/71 (99) 92 11/25/18 14:00 156/71 11/25/18 14:00 89 25 149/76 (100) 94 Intake and Output 11/25/18 11/26/18 19:00 07:00 Intake Total 1436.04 ml 1373.54 ml Output Total 200 ml Balance 1436.04 ml 1173.54 ml Intake Free Water 150 ml 60 ml IV Total 626.04 ml 653.54 ml Tube Feeding 660 ml 660 ml Output Urine Total 200 ml # Voids 7 2 # Bowel Movements 3 2 Laboratory Tests Test 11/26/18 04:50 White Blood Count 14.6 K/UL (4.8-10.8) H Red Blood Count 3.43 M/UL (4.70-6.10) L Hemoglobin 9.3 G/DL (14.2-18.0) L Hematocrit 29.8 % (42.0-52.0) L Mean Corpuscular Volume 87 FL (80-99) Mean Corpuscular Hemoglobin 27.1 PG (27.0-31.0) Mean Corpuscular Hemoglobin Concent 31.2 G/DL (32.0-36.0) L Red Cell Distribution Width 16.3 % (11.6-14.8) H Platelet Count 233 K/UL (150-450) Mean Platelet Volume 6.3 FL (6.5-10.1) L Neutrophils (%) (Auto) 76.2 % (45.0-75.0) H Lymphocytes (%) (Auto) 11.8 % (20.0-45.0) L Monocytes (%) (Auto) 10.0 % (1.0-10.0) Eosinophils (%) (Auto) 1.3 % (0.0-3.0) Basophils (%) (Auto) 0.7 % (0.0-2.0) Sodium Level 150 MMOL/L (136-145) H Potassium Level 4.1 MMOL/L (3.5-5.1) Chloride Level 114 MMOL/L (98-107) H Carbon Dioxide Level 33 MMOL/L (21-32) H Anion Gap 3 mmol/L (5-15) L Blood Urea Nitrogen 16 mg/dL (7-18) Creatinine 0.8 MG/DL (0.55-1.30) Estimat Glomerular Filtration Rate mL/min (>60) Glucose Level 121 MG/DL (74-106) H Calcium Level 8.7 MG/DL (8.5-10.1) Total Bilirubin 0.4 MG/DL (0.2-1.0) Aspartate Amino Transf (AST/SGOT) 34 U/L (15-37) Alanine Aminotransferase (ALT/SGPT) 85 U/L (12-78) H Alkaline Phosphatase 128 U/L (46-116) H Total Protein 7.1 G/DL (6.4-8.2) Albumin 2.1 G/DL (3.4-5.0) L Globulin 5.0 g/dL Albumin/Globulin Ratio 0.4 (1.0-2.7) L Height (Feet): 5 Height (Inches): 5.00 Weight (Pounds): 167 General Appearance: no apparent distress Cardiovascular: normal rate Respiratory/Chest: normal breath sounds, no respiratory distress Abdominal Exam: normal bowel sounds, non tender, soft Extremities: non-tender Kishan Hopkins [employer] Nov 26, 2018 13:53
--- NOTE | 2018-11-26 14:26 | Nephrology Progress Note ---
Assessment/Plan Problem List: (1) Septic shock Assessment: WBCs rising (2) Ventilator dependence (3) Renal failure (ARF), acute on chronic (4) Prostate enlargement (5) Anemia Assessment Septic Shock Acute renal failure CKD underlying BPH Sever Anemia Chronic trach-Vent DM HypoAlbuminemia HyperNatremia Dementia Troponin elevation Plan now in ICU for episode of bradycardia and asystole family agreed to DNR labs reviewed- mag IV as needed change IV to D5 avoid Nephrotoxics transfuse as needed crabtree monitor urine out put and renal parameters per orders Subjective ROS Limited/Unobtainable: Yes Objective Objective Last 24 Hour Vital Signs Date Time Temp Pulse Resp B/P (MAP) Pulse Ox O2 Delivery O2 Flow Rate FiO2 11/26/18 12:53 75 11/26/18 12:51 97 29 50 11/26/18 12:30 85 13 160/75 (103) 92 11/26/18 12:00 99.0 87 21 160/70 (100) 92 11/26/18 12:00 Mechanical Ventilator 11/26/18 12:00 50 11/26/18 12:00 160/75 11/26/18 12:00 93 11/26/18 11:30 87 13 156/66 (96) 93 11/26/18 11:00 160/70 11/26/18 11:00 95 17 165/68 (100) 92 11/26/18 10:36 92 22 92 Mechanical Ventilator 50 85 22 50 11/26/18 10:30 87 25 166/95 (118) 77 11/26/18 10:00 142/62 11/26/18 10:00 50 11/26/18 10:00 87 16 142/62 (88) 97 11/26/18 09:30 87 22 142/56 (84) 97 11/26/18 09:00 92 22 146/54 (84) 100 11/26/18 09:00 87 20 155/69 (97) 97 11/26/18 09:00 142/56 11/26/18 08:55 106 22 50 11/26/18 08:30 92 22 146/54 (84) 100 11/26/18 08:00 50 11/26/18 08:00 146/54 11/26/18 08:00 90 21 179/78 (111) 97 11/26/18 08:00 Mechanical Ventilator 11/26/18 08:00 94 11/26/18 07:30 98.8 94 25 181/88 (119) 88 11/26/18 07:07 92 22 98 Mechanical Ventilator 50 91 22 50 11/26/18 07:00 91 21 169/82 (111) 11/26/18 07:00 181/88 11/26/18 06:30 93 21 165/76 (105) 11/26/18 06:00 90 22 148/74 (98) 11/26/18 06:00 148/74 11/26/18 05:30 92 22 169/77 (107) 11/26/18 05:00 94 39 182/83 (116) 11/26/18 05:00 182/83 11/26/18 04:55 86 24 50 11/26/18 04:30 95 26 152/117 (129) 96 11/26/18 04:00 99.0 92 24 138/76 (96) 97 11/26/18 04:00 50 11/26/18 04:00 Mechanical Ventilator 11/26/18 04:00 138/76 11/26/18 04:00 78 11/26/18 03:30 81 22 128/67 (87) 100 11/26/18 03:08 94 23 99 Mechanical Ventilator 50 11/26/18 03:00 97 22 129/71 (90) 100 11/26/18 03:00 129/71 11/26/18 02:58 91 23 99 Mechanical Ventilator 50 91 23 50 11/26/18 02:30 93 22 140/63 (88) 100 11/26/18 02:00 175/96 11/26/18 02:00 80 27 175/96 (122) 86 11/26/18 01:30 96 22 166/82 (110) 96 11/26/18 01:00 90 23 154/76 (102) 93 11/26/18 01:00 166/82 11/26/18 00:55 95 22 50 11/26/18 00:30 97 23 152/75 (100) 100 11/26/18 00:00 86 11/26/18 00:00 Mechanical Ventilator 11/26/18 00:00 50 11/26/18 00:00 152/75 11/26/18 00:00 99.2 95 22 141/69 (93) 97 11/25/18 23:30 92 22 143/66 (91) 100 11/25/18 23:00 91 22 100 Mechanical Ventilator 50 11/25/18 23:00 104 22 149/73 (98) 100 11/25/18 23:00 149/73 11/25/18 22:50 92 22 100 Mechanical Ventilator 50 92 22 50 11/25/18 22:30 91 22 135/70 (91) 11/25/18 22:00 135/70 11/25/18 22:00 92 22 147/75 (99) 95 11/25/18 21:30 98 24 153/72 (99) 100 11/25/18 21:04 113 24 50 11/25/18 21:00 93 25 158/92 (114) 91 11/25/18 21:00 153/72 11/25/18 20:50 127/90 11/25/18 20:30 89 20 127/90 (102) 100 11/25/18 20:00 Mechanical Ventilator 11/25/18 20:00 50 11/25/18 20:00 98.6 92 23 140/64 (89) 100 11/25/18 20:00 127/90 11/25/18 20:00 88 11/25/18 19:30 97 25 150/95 (113) 98 11/25/18 19:25 113 23 100 Mechanical Ventilator 50 11/25/18 19:14 89 22 99 Mechanical Ventilator 50 89 22 50 11/25/18 19:00 150/95 11/25/18 19:00 94 22 149/77 (101) 92 11/25/18 18:00 181/76 11/25/18 18:00 86 21 181/76 (111) 97 11/25/18 17:00 87 25 141/74 (96) 98 11/25/18 17:00 141/74 11/25/18 16:45 92 30 Mechanical Ventilator 50 11/25/18 16:22 156/61 11/25/18 16:00 98.8 94 23 171/80 (110) 97 11/25/18 16:00 93 11/25/18 16:00 50 11/25/18 16:00 156/61 11/25/18 16:00 Mechanical Ventilator 11/25/18 15:27 84 29 96 Mechanical Ventilator 50 90 22 50 11/25/18 15:00 156/71 11/25/18 15:00 94 31 156/71 (99) 92 Intake and Output 11/25/18 11/26/18 19:00 07:00 Intake Total 1436.04 ml 1373.54 ml Output Total 200 ml Balance 1436.04 ml 1173.54 ml Intake Free Water 150 ml 60 ml IV Total 626.04 ml 653.54 ml Tube Feeding 660 ml 660 ml Output Urine Total 200 ml # Voids 7 2 # Bowel Movements 3 2 Laboratory Tests 11/26/18 04:50: White Blood Count 14.6H, Red Blood Count 3.43L, Hemoglobin 9.3L, Hematocrit 29.8L, Mean Corpuscular Volume 87, Mean Corpuscular Hemoglobin 27.1, Mean Corpuscular Hemoglobin Concent 31.2L, Red Cell Distribution Width 16.3H, Platelet Count 233, Mean Platelet Volume 6.3L, Neutrophils (%) (Auto) 76.2H, Lymphocytes (%) (Auto) 11.8L, Monocytes (%) (Auto) 10.0, Eosinophils (%) (Auto) 1.3, Basophils (%) (Auto) 0.7, Sodium Level 150H, Potassium Level 4.1, Chloride Level 114H, Carbon Dioxide Level 33H, Anion Gap 3L, Blood Urea Nitrogen 16, Creatinine 0.8, Estimat Glomerular Filtration Rate , Glucose Level 121H, Calcium Level 8.7, Total Bilirubin 0.4, Aspartate Amino Transf (AST/SGOT) 34, Alanine Aminotransferase (ALT/SGPT) 85H, Alkaline Phosphatase 128H, Total Protein 7.1, Albumin 2.1L, Globulin 5.0, Albumin/Globulin Ratio 0.4L Height (Feet): 5 Height (Inches): 5.00 Weight (Pounds): 167 EENT: other - trach Respiratory/Chest: decreased breath sounds Abdomen: distended Objective no change Randolph Fernandes MD Nov 26, 2018 14:26
--- NOTE | 2018-11-26 14:49 | Surgery Progress Note ---
Surgery Progress Note Subjective Additional Comments Leukocytosis 14,000. Anemia. Labs noted electrolytes stable. LFTs trending down. Objective Last 24 Hour Vital Signs Date Time Temp Pulse Resp B/P (MAP) Pulse Ox O2 Delivery O2 Flow Rate FiO2 11/26/18 14:45 87 22 94 Mechanical Ventilator 50 81 23 50 11/26/18 12:53 75 11/26/18 12:51 97 29 50 11/26/18 12:30 85 13 160/75 (103) 92 11/26/18 12:00 99.0 87 21 160/70 (100) 92 11/26/18 12:00 Mechanical Ventilator 11/26/18 12:00 50 11/26/18 12:00 160/75 11/26/18 12:00 93 11/26/18 11:30 87 13 156/66 (96) 93 11/26/18 11:00 160/70 11/26/18 11:00 95 17 165/68 (100) 92 11/26/18 10:36 92 22 92 Mechanical Ventilator 50 85 22 50 11/26/18 10:30 87 25 166/95 (118) 77 11/26/18 10:00 142/62 11/26/18 10:00 50 11/26/18 10:00 87 16 142/62 (88) 97 11/26/18 09:30 87 22 142/56 (84) 97 11/26/18 09:00 92 22 146/54 (84) 100 11/26/18 09:00 87 20 155/69 (97) 97 11/26/18 09:00 142/56 11/26/18 08:55 106 22 50 11/26/18 08:30 92 22 146/54 (84) 100 11/26/18 08:00 50 11/26/18 08:00 146/54 11/26/18 08:00 90 21 179/78 (111) 97 11/26/18 08:00 Mechanical Ventilator 11/26/18 08:00 94 11/26/18 07:30 98.8 94 25 181/88 (119) 88 11/26/18 07:07 92 22 98 Mechanical Ventilator 50 91 22 50 11/26/18 07:00 91 21 169/82 (111) 11/26/18 07:00 181/88 11/26/18 06:30 93 21 165/76 (105) 11/26/18 06:00 90 22 148/74 (98) 11/26/18 06:00 148/74 11/26/18 05:30 92 22 169/77 (107) 11/26/18 05:00 94 39 182/83 (116) 11/26/18 05:00 182/83 11/26/18 04:55 86 24 50 11/26/18 04:30 95 26 152/117 (129) 96 11/26/18 04:00 99.0 92 24 138/76 (96) 97 11/26/18 04:00 50 11/26/18 04:00 Mechanical Ventilator 11/26/18 04:00 138/76 11/26/18 04:00 78 11/26/18 03:30 81 22 128/67 (87) 100 11/26/18 03:08 94 23 99 Mechanical Ventilator 50 11/26/18 03:00 97 22 129/71 (90) 100 11/26/18 03:00 129/71 11/26/18 02:58 91 23 99 Mechanical Ventilator 50 91 23 50 11/26/18 02:30 93 22 140/63 (88) 100 11/26/18 02:00 175/96 11/26/18 02:00 80 27 175/96 (122) 86 11/26/18 01:30 96 22 166/82 (110) 96 11/26/18 01:00 90 23 154/76 (102) 93 11/26/18 01:00 166/82 11/26/18 00:55 95 22 50 11/26/18 00:30 97 23 152/75 (100) 100 11/26/18 00:00 86 11/26/18 00:00 Mechanical Ventilator 11/26/18 00:00 50 11/26/18 00:00 152/75 11/26/18 00:00 99.2 95 22 141/69 (93) 97 11/25/18 23:30 92 22 143/66 (91) 100 11/25/18 23:00 91 22 100 Mechanical Ventilator 50 11/25/18 23:00 104 22 149/73 (98) 100 11/25/18 23:00 149/73 11/25/18 22:50 92 22 100 Mechanical Ventilator 50 92 22 50 11/25/18 22:30 91 22 135/70 (91) 11/25/18 22:00 135/70 11/25/18 22:00 92 22 147/75 (99) 95 11/25/18 21:30 98 24 153/72 (99) 100 11/25/18 21:04 113 24 50 11/25/18 21:00 93 25 158/92 (114) 91 11/25/18 21:00 153/72 11/25/18 20:50 127/90 11/25/18 20:30 89 20 127/90 (102) 100 11/25/18 20:00 Mechanical Ventilator 11/25/18 20:00 50 11/25/18 20:00 98.6 92 23 140/64 (89) 100 11/25/18 20:00 127/90 11/25/18 20:00 88 11/25/18 19:30 97 25 150/95 (113) 98 11/25/18 19:25 113 23 100 Mechanical Ventilator 50 11/25/18 19:14 89 22 99 Mechanical Ventilator 50 89 22 50 11/25/18 19:00 150/95 11/25/18 19:00 94 22 149/77 (101) 92 11/25/18 18:00 181/76 11/25/18 18:00 86 21 181/76 (111) 97 11/25/18 17:00 87 25 141/74 (96) 98 11/25/18 17:00 141/74 11/25/18 16:45 92 30 Mechanical Ventilator 50 11/25/18 16:22 156/61 11/25/18 16:00 98.8 94 23 171/80 (110) 97 11/25/18 16:00 93 11/25/18 16:00 50 11/25/18 16:00 156/61 11/25/18 16:00 Mechanical Ventilator 11/25/18 15:27 84 29 96 Mechanical Ventilator 50 90 22 50 11/25/18 15:00 156/71 11/25/18 15:00 94 31 156/71 (99) 92 I&O Intake and Output 11/25/18 11/26/18 19:00 07:00 Intake Total 1436.04 ml 1373.54 ml Output Total 200 ml Balance 1436.04 ml 1173.54 ml Intake Free Water 150 ml 60 ml IV Total 626.04 ml 653.54 ml Tube Feeding 660 ml 660 ml Output Urine Total 200 ml # Voids 7 2 # Bowel Movements 3 2 Dressing: saturated Wound: other Drains: other Cardiovascular: RSR Respiratory: decreased breath sounds Abdomen: soft, present bowel sounds, non-distended Extremities: no cyanosis, other Laboratory Tests Test 11/26/18 04:50 White Blood Count 14.6 K/UL (4.8-10.8) H Red Blood Count 3.43 M/UL (4.70-6.10) L Hemoglobin 9.3 G/DL (14.2-18.0) L Hematocrit 29.8 % (42.0-52.0) L Mean Corpuscular Volume 87 FL (80-99) Mean Corpuscular Hemoglobin 27.1 PG (27.0-31.0) Mean Corpuscular Hemoglobin Concent 31.2 G/DL (32.0-36.0) L Red Cell Distribution Width 16.3 % (11.6-14.8) H Platelet Count 233 K/UL (150-450) Mean Platelet Volume 6.3 FL (6.5-10.1) L Neutrophils (%) (Auto) 76.2 % (45.0-75.0) H Lymphocytes (%) (Auto) 11.8 % (20.0-45.0) L Monocytes (%) (Auto) 10.0 % (1.0-10.0) Eosinophils (%) (Auto) 1.3 % (0.0-3.0) Basophils (%) (Auto) 0.7 % (0.0-2.0) Sodium Level 150 MMOL/L (136-145) H Potassium Level 4.1 MMOL/L (3.5-5.1) Chloride Level 114 MMOL/L (98-107) H Carbon Dioxide Level 33 MMOL/L (21-32) H Anion Gap 3 mmol/L (5-15) L Blood Urea Nitrogen 16 mg/dL (7-18) Creatinine 0.8 MG/DL (0.55-1.30) Estimat Glomerular Filtration Rate mL/min (>60) Glucose Level 121 MG/DL (74-106) H Calcium Level 8.7 MG/DL (8.5-10.1) Total Bilirubin 0.4 MG/DL (0.2-1.0) Aspartate Amino Transf (AST/SGOT) 34 U/L (15-37) Alanine Aminotransferase (ALT/SGPT) 85 U/L (12-78) H Alkaline Phosphatase 128 U/L (46-116) H Total Protein 7.1 G/DL (6.4-8.2) Albumin 2.1 G/DL (3.4-5.0) L Globulin 5.0 g/dL Albumin/Globulin Ratio 0.4 (1.0-2.7) L Plan Problems: (1) Severe sepsis Assessment & Plan: leukocytosis, anemia, lactic acidosis, fevers IV Abx imaging noted and reviewed US with no stones or dilated ducts elevated lft's likely due to liver disease exam as below cont abx trend labs leave crabtree for a few weeks thank you will follow with recs Findings: Exam is somewhat limited, due to gastrostomy tube and overlying bowel gas limiting visualization of the abdominal aorta Gallbladder is unremarkable, without stones, wall thickening, nor pericholecystic fluid. Sonographic Carl's sign is negative. Common bile duct measures 4 mm in diameter. No intrahepatic biliary ductal dilatation. Liver demonstrates normal echogenicity, no focal abnormality. It demonstrates slight surface nodularity. It is enlarged. There is a 1 cm cyst which appears adjacent to the gallbladder wall. This is probably a small exophytic hepatic cyst. Portal vein and hepatic veins are patent. Pancreas is unremarkable. Spleen is unremarkable. Left kidney measures 9.2 cm in length. Right kidney measures 10.2 cm length. Both kidneys demonstrate normal echogenicity. There is no hydronephrosis. Both kidneys demonstrate cysts. . Abdominal aorta is partially obscured by bowel gas, visualized portions are non-aneurysmal . Impression: Negative for gallstones or dilated bile ducts Hepatic surface nodularity, may indicate early cirrhotic changes Hepatomegaly Incidental finding bilateral renal cysts (2) Malnutrition Assessment & Plan: DAILY ESTIMATED NEEDS: Needs based on Critical care, sepsis 71.8 kg 22-30 kcals/kg 3716-5160 total kcals 1.2-2 g protein/kg 86- 144 g total protein 25-30 mL/kg 1795- 2154 total fluid mLs NUTRITION DIAGNOSIS: * Swallowing difficulty R/T respiratory status and dysphagia as evidenced by pt is vent dep, on TF. * Altered nutrition related lab values r/t sepsis, clinical status, h/o Diabetes as evidenced by critically elev WBC (47.2), low Hgb (6.6), elev BNP, low BP (96/41), BG 191, POC 179. CURRENT TF: Jevity 1.2 @ 70mL/hr x 20hr - NOW NPO ENTERAL NUTRITION RECOMMENDATIONS: Vital 1.2 @55mL/hr x24 hrs to provide 1320mL, 1584kcal, 99g pro, 1071mL free H2O * As medically appropriate to feed, rec TF change to VITAL 1.2 for critical care. * Start Vital 1,2, @25mL, advance as tolerated 10ml/hr q4-6 hrs to goal * HOB over 30 degrees/ water flush per MD --- Low Hgb (6.6), NPO per GI-> rec trophic feeds when appropriate if pt remains hypotensive. ADDITIONAL RECOMMENDATIONS: * Per SNF: HT 68 inches WT 158 lbs + Daily calibrated bed scale wts * Change TF to Vital 1.2, as medically able to feed * Monitor lytes (replete as needed) * F/up w/ WC eval . (3) Sacral decubitus ulcer Assessment & Plan: Pt presented on admission with contractures and multiple pressure injuries. Partially opened DTPI L buttocks. Base of wound moist - viable with surrounding dark and fluctuant borders.(L)1.2cm x (W)1cm. Small amt of sanguineous exudate noted. No odor noted. Hyperpigmentation noted to sacrum. Historical scar from previous wound noted to L trochanter. Penile head retracted within foreskin and small wound noted within folds of foreskin. Wound is moist and viable. No odor or exudate noted. No erythema noted periwound. Resolving pressure injury plantar R heel. Base of wound 50% epithelialized, 50% moist and viable.(L)5.5cm x (W)6.5cm. Resolving pressure injury lateral L heel. Base of wound is moist and viable with surrounding hyperpigmentation.(L)0.6cm x (W)0.5cm. Scattered loose, dry brown skin noted to medial and posterior L heel. Tx.Plan: Apply Moisture Barrier Paste to L buttocks and sacrum. Cover with Optifoam drsg. Change every 3 days and prn. Cleanse head of penis with soap and water. Apply Bacitracin oint Twice Daily. Apply Betadine to R and L heel wounds. Cover each heel with Optifoam drsg. Daily and prn. APM/ABDELRAHMAN Mattress overlay. Reposition at least every 2hours and prn. Off-load heels with pillow. Don Carvalho Nov 26, 2018 14:49
--- NOTE | 2018-11-26 14:54 | Hematology/Onc Progress Note ---
Assessment/Plan Assessment/Plan ASSESSMENT AND RECOMMENDATIONS # Leukocytosis. Likely related to underlying infection with sepsis and elevated severely on admission --> Imaging has been reviewed. Shows cxr left lung inil/v edema --> Blood cs and urine cx are reviewed --> Has been started on abx, empiric tx (zosyn) --> PERIPHERAL SMEAR SHOWS ATYPICAL LYMPHOCYTES --> Flow cytometry ordered with pathologist -> no atypical findings are noted --> wbc 52k-->47k-->29k->16-->12-->14->12-->12-->21-->14->11->15 --> picc was repositioned # Anemia of chronic disease, due to underlying chronic medical issues, multifactorial. --> Anemia w/u has been ordered --> with hyperferritinemia --> No evidence of hemolysis noted, peripheral smear has been reviewed --> Hgb goal >7. Transfuse as needed --> hgb trend 7.5-->6.6->9.1-->9.2-->8.9-->9.9->8.3-->8.5-->9.3 --> 2 units transfuse on 11/15 --> will need to follow as outpatient and may need chelation therapy --> GI workup once more stable # Failure to thrive (FTT) - decreased bmi and low protein --> cea 4.3 --> will obtain q3 day caloric counts --> mirtazapine as appetite stimulant --> GI consult on a prn basis, as needed for endosc # Asystole with pauses may need pm per family --> as per cards recs # Sepsis, which has improved # PEG # Malnutrition. 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 Greatly appreciate consultation. Subjective Constitutional: Denies: no symptoms, chills, fever, malaise, weakness, other HEENT: Denies: no symptoms, eye pain, blurred vision, tearing, double vision, ear pain, ear discharge, nose pain, nose congestion, throat pain, throat swelling, mouth pain, mouth swelling, other Cardiovascular: Denies: no symptoms, chest pain, edema, irregular heart rate, lightheadedness, palpitations, syncope, other Respiratory: Denies: no symptoms, cough, shortness of breath, SOB with excertion, SOB at rest, sputum, wheezing, other Gastrointestinal/Abdominal: Denies: no symptoms, abdomen distended, abdominal pain, black stools, tarry stools, blood in stool, constipated, diarrhea, difficulty swallowing, nausea, poor appetite, poor fluid intake, rectal bleeding , vomiting, other Genitourinary: Denies: no symptoms, burning, discharge, frequency, flank pain, hematuria, incontinence, pain, urgency, other Neurologic/Psychiatric: Denies: no symptoms, anxiety, depressed, emotional problems, headache, numbness, paresthesia, pre-existing deficit, seizure, tingling, tremors, weakness, other Allergies: Coded Allergies: TERAZOSIN (Verified Allergy, Unknown, 10/27/17) Subjective 11/16: in the icu, is off pressors, doing better, no bleeding 11/18: no bleeding, remains on doxy and zosyn, no bleeding reported 11/19: out of the icu, on vent/trach, no major changes, dw rn 11/20: no bleeding noted, no night sweats, meds reviewed, no f/c 11/21: on vent, obtunded, with gt ongong, with picc, no bleeding .17: stricture advanced through with uro, with crabtree, labs noted 11/23: no events to report, no bleeding, labs reviewed, in icu 11/24: remains in the icu, with asystole, pending discussion with marlyn re pM 11/25: continues to have pauses, no bleeding, seen by cards, no events 11/26: no ets, no bleeding noted, no night sweats, no f/c Objective Objective Current Medications Medications (Trade) Dose Ordered Sig/Ruthie Route PRN Reason Start Time Stop Time Status Last Admin Dose Admin Acetaminophen (Tylenol) 650 mg Q6H PRN GT Mild Pain/Temp > 100.5 11/23/18 09:39 12/15/18 09:38 11/25/18 16:22 Albuterol/ Ipratropium (Albuterol/ Ipratropium) 3 ml Q4HRT HHN 11/23/18 11:00 11/28/18 10:59 11/26/18 14:48 Bisacodyl (Dulcolax) 10 mg DAILYPRN PRN RECTAL Constipation 11/23/18 09:39 12/18/18 09:38 Chlorhexidine Gluconate (Rachael-Hex 2%) 1 applic DAILY@2000 TOPIC 11/23/18 20:00 12/15/18 19:59 11/25/18 20:50 Dextrose 1,000 ml @ 30 mls/hr Q24H IV 11/23/18 10:45 12/23/18 10:44 11/26/18 05:40 Dextrose (Dextrose 50%) 25 ml Q30M PRN IV Hypoglycemia 11/23/18 09:39 12/15/18 09:38 Dextrose (Dextrose 50%) 50 ml Q30M PRN IV Hypoglycemia 11/23/18 09:45 12/15/18 05:44 Dopamine HCl/ Dextrose 250 ml @ 8.42 mls/hr Q24H IV 11/23/18 16:41 12/23/18 16:40 11/25/18 16:22 Hydromorphone HCl (Dilaudid) 0.5 mg Q4H PRN IVP For Pain 11/23/18 09:40 11/29/18 09:39 Insulin Aspart (NovoLOG) BEFORE MEALS AND HS SUBQ 11/23/18 11:30 12/15/18 06:29 11/26/18 05:39 Lorazepam (Ativan 2mg/ml 1ml) 0.5 mg Q2H PRN IV For Anxiety 11/23/18 10:45 11/30/18 10:44 11/23/18 18:16 Olanzapine (ZyPREXA Zydis) 7.5 mg DAILY GT 11/24/18 09:00 12/15/18 08:59 11/26/18 08:05 Pantoprazole (Protonix) 40 mg EVERY 12 HOURS IVP 11/23/18 21:00 12/15/18 08:59 11/26/18 08:06 Piperacillin Sod/ Tazobactam Sod 3.375 gm/Sodium Chloride 110 ml @ 27.5 mls/hr Q8H IVPB 11/23/18 12:00 11/27/18 23:59 11/26/18 12:05 Quetiapine Fumarate (SEROquel) 50 mg DAILY GT 11/24/18 09:00 12/15/18 08:59 11/26/18 08:05 Tamsulosin HCl (Flomax) 0.4 mg BEDTIME ORAL 11/23/18 21:00 12/15/18 20:59 11/25/18 20:50 Last 24 Hour Vital Signs Date Time Temp Pulse Resp B/P (MAP) Pulse Ox O2 Delivery O2 Flow Rate FiO2 11/26/18 14:45 87 22 94 Mechanical Ventilator 50 81 23 50 11/26/18 12:53 75 11/26/18 12:51 97 29 50 11/26/18 12:30 85 13 160/75 (103) 92 11/26/18 12:00 99.0 87 21 160/70 (100) 92 11/26/18 12:00 Mechanical Ventilator 11/26/18 12:00 50 11/26/18 12:00 160/75 11/26/18 12:00 93 11/26/18 11:30 87 13 156/66 (96) 93 11/26/18 11:00 160/70 11/26/18 11:00 95 17 165/68 (100) 92 11/26/18 10:36 92 22 92 Mechanical Ventilator 50 85 22 50 11/26/18 10:30 87 25 166/95 (118) 77 11/26/18 10:00 142/62 11/26/18 10:00 50 11/26/18 10:00 87 16 142/62 (88) 97 11/26/18 09:30 87 22 142/56 (84) 97 11/26/18 09:00 92 22 146/54 (84) 100 11/26/18 09:00 87 20 155/69 (97) 97 11/26/18 09:00 142/56 11/26/18 08:55 106 22 50 11/26/18 08:30 92 22 146/54 (84) 100 11/26/18 08:00 50 11/26/18 08:00 146/54 11/26/18 08:00 90 21 179/78 (111) 97 11/26/18 08:00 Mechanical Ventilator 11/26/18 08:00 94 11/26/18 07:30 98.8 94 25 181/88 (119) 88 11/26/18 07:07 92 22 98 Mechanical Ventilator 50 91 22 50 11/26/18 07:00 91 21 169/82 (111) 11/26/18 07:00 181/88 11/26/18 06:30 93 21 165/76 (105) 11/26/18 06:00 90 22 148/74 (98) 11/26/18 06:00 148/74 11/26/18 05:30 92 22 169/77 (107) 11/26/18 05:00 94 39 182/83 (116) 11/26/18 05:00 182/83 11/26/18 04:55 86 24 50 11/26/18 04:30 95 26 152/117 (129) 96 11/26/18 04:00 99.0 92 24 138/76 (96) 97 11/26/18 04:00 50 11/26/18 04:00 Mechanical Ventilator 11/26/18 04:00 138/76 11/26/18 04:00 78 11/26/18 03:30 81 22 128/67 (87) 100 11/26/18 03:08 94 23 99 Mechanical Ventilator 50 11/26/18 03:00 97 22 129/71 (90) 100 11/26/18 03:00 129/71 11/26/18 02:58 91 23 99 Mechanical Ventilator 50 91 23 50 11/26/18 02:30 93 22 140/63 (88) 100 11/26/18 02:00 175/96 11/26/18 02:00 80 27 175/96 (122) 86 11/26/18 01:30 96 22 166/82 (110) 96 11/26/18 01:00 90 23 154/76 (102) 93 11/26/18 01:00 166/82 11/26/18 00:55 95 22 50 11/26/18 00:30 97 23 152/75 (100) 100 11/26/18 00:00 86 11/26/18 00:00 Mechanical Ventilator 11/26/18 00:00 50 11/26/18 00:00 152/75 11/26/18 00:00 99.2 95 22 141/69 (93) 97 11/25/18 23:30 92 22 143/66 (91) 100 11/25/18 23:00 91 22 100 Mechanical Ventilator 50 11/25/18 23:00 104 22 149/73 (98) 100 11/25/18 23:00 149/73 11/25/18 22:50 92 22 100 Mechanical Ventilator 50 92 22 50 11/25/18 22:30 91 22 135/70 (91) 11/25/18 22:00 135/70 11/25/18 22:00 92 22 147/75 (99) 95 11/25/18 21:30 98 24 153/72 (99) 100 11/25/18 21:04 113 24 50 11/25/18 21:00 93 25 158/92 (114) 91 11/25/18 21:00 153/72 11/25/18 20:50 127/90 11/25/18 20:30 89 20 127/90 (102) 100 11/25/18 20:00 Mechanical Ventilator 11/25/18 20:00 50 11/25/18 20:00 98.6 92 23 140/64 (89) 100 11/25/18 20:00 127/90 11/25/18 20:00 88 11/25/18 19:30 97 25 150/95 (113) 98 11/25/18 19:25 113 23 100 Mechanical Ventilator 50 11/25/18 19:14 89 22 99 Mechanical Ventilator 50 89 22 50 11/25/18 19:00 150/95 11/25/18 19:00 94 22 149/77 (101) 92 11/25/18 18:00 181/76 11/25/18 18:00 86 21 181/76 (111) 97 11/25/18 17:00 87 25 141/74 (96) 98 11/25/18 17:00 141/74 11/25/18 16:45 92 30 Mechanical Ventilator 50 11/25/18 16:22 156/61 11/25/18 16:00 98.8 94 23 171/80 (110) 97 11/25/18 16:00 93 11/25/18 16:00 50 11/25/18 16:00 156/61 11/25/18 16:00 Mechanical Ventilator 11/25/18 15:27 84 29 96 Mechanical Ventilator 50 90 22 50 11/25/18 15:00 156/71 11/25/18 15:00 94 31 156/71 (99) 92 11/25/18 14:00 156/71 11/25/18 14:00 89 25 149/76 (100) 94 11/25/18 13:00 149/76 11/25/18 13:00 90 34 154/72 (99) 95 11/25/18 12:43 90 22 50 11/25/18 12:00 88 11/25/18 12:00 50 11/25/18 12:00 99.1 87 25 149/78 (101) 95 11/25/18 12:00 154/72 11/25/18 12:00 Mechanical Ventilator 11/25/18 11:17 73 24 99 Mechanical Ventilator 50 78 23 50 11/25/18 11:00 149/78 11/25/18 11:00 83 25 143/66 (91) 96 11/25/18 10:00 138/56 11/25/18 10:00 88 24 138/56 (83) 97 11/25/18 09:05 94 23 50 11/25/18 09:00 94 19 167/80 (109) 92 11/25/18 09:00 138/56 11/25/18 08:00 50 11/25/18 08:00 Mechanical Ventilator 11/25/18 08:00 99.3 107 34 175/79 (111) 96 11/25/18 08:00 167/80 11/25/18 08:00 92 11/25/18 07:14 94 29 96 Mechanical Ventilator 50 103 22 50 11/25/18 07:00 162/75 11/25/18 06:00 162/75 11/25/18 06:00 98 36 162/75 (104) 92 11/25/18 05:11 98 24 50 11/25/18 05:00 97 27 155/71 (99) 96 11/25/18 05:00 155/71 11/25/18 04:00 98.4 90 38 199/101 (133) 92 11/25/18 04:00 Mechanical Ventilator 11/25/18 04:00 199/101 11/25/18 04:00 90 11/25/18 04:00 50 11/25/18 03:11 98 22 97 Mechanical Ventilator 50 11/25/18 03:01 95 24 96 Mechanical Ventilator 50 95 24 50 11/25/18 03:01 95 24 96 Mechanical Ventilator 50 11/25/18 03:00 97 34 168/72 (104) 92 11/25/18 03:00 168/72 11/25/18 02:00 97 26 168/88 (114) 92 11/25/18 02:00 168/88 11/25/18 01:25 91 22 50 11/25/18 01:00 168/81 11/25/18 01:00 94 38 168/81 (110) 92 11/25/18 00:00 Mechanical Ventilator 11/25/18 00:00 50 11/25/18 00:00 99.0 94 31 168/67 (100) 93 11/25/18 00:00 160/67 11/25/18 00:00 94 11/24/18 23:00 154/64 11/24/18 23:00 92 24 154/64 (94) 98 11/24/18 22:59 98 24 99 Mechanical Ventilator 50 11/24/18 22:48 93 23 95 Mechanical Ventilator 50 93 23 50 11/24/18 22:00 160/69 11/24/18 22:00 93 27 160/69 (99) 94 11/24/18 21:05 96 27 50 11/24/18 21:00 97 22 169/88 (115) 95 11/24/18 21:00 169/88 11/24/18 20:00 99.2 98 27 160/76 (104) 98 11/24/18 20:00 98 11/24/18 20:00 50 11/24/18 20:00 160/76 11/24/18 20:00 Mechanical Ventilator 11/24/18 19:18 91 22 97 Mechanical Ventilator 50 11/24/18 19:07 92 22 94 Mechanical Ventilator 50 92 22 50 11/24/18 19:00 164/80 11/24/18 19:00 91 21 164/80 (108) 93 11/24/18 18:00 181/72 11/24/18 18:00 96 27 168/73 (104) 95 11/24/18 17:04 160/70 11/24/18 17:00 160/70 11/24/18 17:00 99 33 160/70 (100) 92 11/24/18 16:42 93 23 50 11/24/18 16:00 98.5 96 24 162/72 (102) 94 11/24/18 16:00 162/72 11/24/18 16:00 Mechanical Ventilator 11/24/18 16:00 50 11/24/18 16:00 96 11/24/18 15:27 90 25 96 Mechanical Ventilator 50 100 22 50 11/24/18 15:00 158/68 11/24/18 15:00 92 33 158/68 (98) 93 Intake and Output 11/25/18 11/26/18 19:00 07:00 Intake Total 1436.04 ml 1373.54 ml Output Total 200 ml Balance 1436.04 ml 1173.54 ml Intake Free Water 150 ml 60 ml IV Total 626.04 ml 653.54 ml Tube Feeding 660 ml 660 ml Output Urine Total 200 ml # Voids 7 2 # Bowel Movements 3 2 Labs Test 11/23/18 20:48 11/24/18 04:50 11/26/18 04:50 Arterial Blood pH 7.388 (7.350-7.450) Arterial Blood Partial Pressure CO2 48.8 mmHg (35.0-45.0) Arterial Blood Partial Pressure O2 67.5 mmHg (75.0-100.0) Arterial Blood HCO3 28.7 mmol/L (22.0-26.0) Arterial Blood Oxygen Saturation 93.5 % (95-100) Arterial Blood Base Excess 3.2 (-2-2) Ebenezer Test Positive White Blood Count 11.3 K/UL (4.8-10.8) 14.6 K/UL (4.8-10.8) Red Blood Count 3.13 M/UL (4.70-6.10) 3.43 M/UL (4.70-6.10) Hemoglobin 8.5 G/DL (14.2-18.0) 9.3 G/DL (14.2-18.0) Hematocrit 26.8 % (42.0-52.0) 29.8 % (42.0-52.0) Mean Corpuscular Volume 86 FL (80-99) 87 FL (80-99) Mean Corpuscular Hemoglobin 27.2 PG (27.0-31.0) 27.1 PG (27.0-31.0) Mean Corpuscular Hemoglobin Concent 31.7 G/DL (32.0-36.0) 31.2 G/DL (32.0-36.0) Red Cell Distribution Width 15.9 % (11.6-14.8) 16.3 % (11.6-14.8) Platelet Count 195 K/UL (150-450) 233 K/UL (150-450) Mean Platelet Volume 6.8 FL (6.5-10.1) 6.3 FL (6.5-10.1) Neutrophils (%) (Auto) 73.0 % (45.0-75.0) 76.2 % (45.0-75.0) Lymphocytes (%) (Auto) 11.5 % (20.0-45.0) 11.8 % (20.0-45.0) Monocytes (%) (Auto) 11.9 % (1.0-10.0) 10.0 % (1.0-10.0) Eosinophils (%) (Auto) 2.8 % (0.0-3.0) 1.3 % (0.0-3.0) Basophils (%) (Auto) 0.8 % (0.0-2.0) 0.7 % (0.0-2.0) Sodium Level 150 MMOL/L (136-145) 150 MMOL/L (136-145) Potassium Level 3.9 MMOL/L (3.5-5.1) 4.1 MMOL/L (3.5-5.1) Chloride Level 114 MMOL/L (98-107) 114 MMOL/L (98-107) Carbon Dioxide Level 31 MMOL/L (21-32) 33 MMOL/L (21-32) Anion Gap 5 mmol/L (5-15) 3 mmol/L (5-15) Blood Urea Nitrogen 18 mg/dL (7-18) 16 mg/dL (7-18) Creatinine 0.9 MG/DL (0.55-1.30) 0.8 MG/DL (0.55-1.30) Estimat Glomerular Filtration Rate mL/min (>60) mL/min (>60) Glucose Level 113 MG/DL (74-106) 121 MG/DL (74-106) Calcium Level 8.8 MG/DL (8.5-10.1) 8.7 MG/DL (8.5-10.1) Phosphorus Level 3.1 MG/DL (2.5-4.9) Magnesium Level 1.6 MG/DL (1.8-2.4) Total Bilirubin 0.4 MG/DL (0.2-1.0) 0.4 MG/DL (0.2-1.0) Aspartate Amino Transf (AST/SGOT) 37 U/L (15-37) 34 U/L (15-37) Alanine Aminotransferase (ALT/SGPT) 89 U/L (12-78) 85 U/L (12-78) Alkaline Phosphatase 117 U/L (46-116) 128 U/L (46-116) C-Reactive Protein, Quantitative 11.0 mg/dL (0.00-0.90) Pro-B-Type Natriuretic Peptide 3577 pg/mL (0-125) Total Protein 6.6 G/DL (6.4-8.2) 7.1 G/DL (6.4-8.2) Albumin 2.0 G/DL (3.4-5.0) 2.1 G/DL (3.4-5.0) Globulin 4.6 g/dL 5.0 g/dL Albumin/Globulin Ratio 0.4 (1.0-2.7) 0.4 (1.0-2.7) Height (Feet): 5 Height (Inches): 5.00 Weight (Pounds): 167 Objective Vitals: reviewed Gen: no apparent distress Head: normocephalic EENT: normal ENT inspection Respiratory: other - intubated vent+ Cardiovascular: normal rate Gastrointestinal: gt - c/d/i Rectal: deferred Genitourinary: no CVA tenderness Skin: normal color +++ decub : ++ Beny Fields MD Nov 26, 2018 14:54
--- NOTE | 2018-11-26 14:57 | Cardiac Electrophysiology PN ---
Assessment/Plan Assessment/Plan 1. S/P Septic shock with white count of 50,000 and lactic acid of 6. On IV antibiotic and IV fluid . WBC was 20k on 11/22 and is down to 13k on Abx. 2. S/P multiple episodes of asystole with HR down to 10 and pauses of more than 10 seconds earlier today . Off any MCGEE or AVN blockers. Needs permanent pacer implantation. Patient is full code. DW Son with RN present on the phone Mr. Faraz Erickson on 11/23/18 at . He did not want the pacer until he consults with his sisters to make a final decision. ID clearance obtained by Dr Cruz. DC Dopamine.Keep on prn Atropine Echo Nl EF. 3. Congestive heart failure with BNP of more than 17,000. Now BNP 3000 range 4. Troponin elevation, likely due to renal failure and anemia and septic shock. The levels are flat. EKG does not show any ST elevation. 5. S/P Acute renal failure. BUN of 48, creatinine of 2.5. Resolved BUN 15 and Cr now 0.8 6. Hypernatremia. Better with iv fluid 7. Ventilator-dependent respiratory failure, status post tracheostomy. 8. Dysphagia, status post PEG placement. 9. Profound anemia, hemoglobin of 6.5, rule out GI bleed. S/P blood transfusion. S/P EGD RICARDA RN and Dr. Matias Subjective Subjective Had another 10 second pause in ICU on iv Abx. Family want DNR and refusing Pacer implant Objective Last 24 Hour Vital Signs Date Time Temp Pulse Resp B/P (MAP) Pulse Ox O2 Delivery O2 Flow Rate FiO2 11/26/18 14:45 87 22 94 Mechanical Ventilator 50 81 23 50 11/26/18 12:53 75 11/26/18 12:51 97 29 50 11/26/18 12:30 85 13 160/75 (103) 92 11/26/18 12:00 99.0 87 21 160/70 (100) 92 11/26/18 12:00 Mechanical Ventilator 11/26/18 12:00 50 11/26/18 12:00 160/75 11/26/18 12:00 93 11/26/18 11:30 87 13 156/66 (96) 93 11/26/18 11:00 160/70 11/26/18 11:00 95 17 165/68 (100) 92 11/26/18 10:36 92 22 92 Mechanical Ventilator 50 85 22 50 11/26/18 10:30 87 25 166/95 (118) 77 11/26/18 10:00 142/62 11/26/18 10:00 50 11/26/18 10:00 87 16 142/62 (88) 97 11/26/18 09:30 87 22 142/56 (84) 97 11/26/18 09:00 92 22 146/54 (84) 100 11/26/18 09:00 87 20 155/69 (97) 97 11/26/18 09:00 142/56 11/26/18 08:55 106 22 50 11/26/18 08:30 92 22 146/54 (84) 100 11/26/18 08:00 50 11/26/18 08:00 146/54 11/26/18 08:00 90 21 179/78 (111) 97 11/26/18 08:00 Mechanical Ventilator 11/26/18 08:00 94 11/26/18 07:30 98.8 94 25 181/88 (119) 88 11/26/18 07:07 92 22 98 Mechanical Ventilator 50 91 22 50 11/26/18 07:00 91 21 169/82 (111) 11/26/18 07:00 181/88 11/26/18 06:30 93 21 165/76 (105) 11/26/18 06:00 90 22 148/74 (98) 11/26/18 06:00 148/74 11/26/18 05:30 92 22 169/77 (107) 11/26/18 05:00 94 39 182/83 (116) 11/26/18 05:00 182/83 11/26/18 04:55 86 24 50 11/26/18 04:30 95 26 152/117 (129) 96 11/26/18 04:00 99.0 92 24 138/76 (96) 97 11/26/18 04:00 50 11/26/18 04:00 Mechanical Ventilator 11/26/18 04:00 138/76 11/26/18 04:00 78 11/26/18 03:30 81 22 128/67 (87) 100 11/26/18 03:08 94 23 99 Mechanical Ventilator 50 11/26/18 03:00 97 22 129/71 (90) 100 11/26/18 03:00 129/71 11/26/18 02:58 91 23 99 Mechanical Ventilator 50 91 23 50 11/26/18 02:30 93 22 140/63 (88) 100 11/26/18 02:00 175/96 11/26/18 02:00 80 27 175/96 (122) 86 11/26/18 01:30 96 22 166/82 (110) 96 11/26/18 01:00 90 23 154/76 (102) 93 11/26/18 01:00 166/82 11/26/18 00:55 95 22 50 11/26/18 00:30 97 23 152/75 (100) 100 11/26/18 00:00 86 11/26/18 00:00 Mechanical Ventilator 11/26/18 00:00 50 11/26/18 00:00 152/75 11/26/18 00:00 99.2 95 22 141/69 (93) 97 11/25/18 23:30 92 22 143/66 (91) 100 11/25/18 23:00 91 22 100 Mechanical Ventilator 50 11/25/18 23:00 104 22 149/73 (98) 100 11/25/18 23:00 149/73 11/25/18 22:50 92 22 100 Mechanical Ventilator 50 92 22 50 11/25/18 22:30 91 22 135/70 (91) 11/25/18 22:00 135/70 11/25/18 22:00 92 22 147/75 (99) 95 11/25/18 21:30 98 24 153/72 (99) 100 11/25/18 21:04 113 24 50 11/25/18 21:00 93 25 158/92 (114) 91 11/25/18 21:00 153/72 11/25/18 20:50 127/90 11/25/18 20:30 89 20 127/90 (102) 100 11/25/18 20:00 Mechanical Ventilator 11/25/18 20:00 50 11/25/18 20:00 98.6 92 23 140/64 (89) 100 11/25/18 20:00 127/90 11/25/18 20:00 88 11/25/18 19:30 97 25 150/95 (113) 98 11/25/18 19:25 113 23 100 Mechanical Ventilator 50 11/25/18 19:14 89 22 99 Mechanical Ventilator 50 89 22 50 11/25/18 19:00 150/95 11/25/18 19:00 94 22 149/77 (101) 92 11/25/18 18:00 181/76 11/25/18 18:00 86 21 181/76 (111) 97 11/25/18 17:00 87 25 141/74 (96) 98 11/25/18 17:00 141/74 11/25/18 16:45 92 30 Mechanical Ventilator 50 11/25/18 16:22 156/61 11/25/18 16:00 98.8 94 23 171/80 (110) 97 11/25/18 16:00 93 11/25/18 16:00 50 11/25/18 16:00 156/61 11/25/18 16:00 Mechanical Ventilator 11/25/18 15:27 84 29 96 Mechanical Ventilator 50 90 22 50 11/25/18 15:00 156/71 11/25/18 15:00 94 31 156/71 (99) 92 Intake and Output 11/25/18 11/26/18 19:00 07:00 Intake Total 1436.04 ml 1373.54 ml Output Total 200 ml Balance 1436.04 ml 1173.54 ml Intake Free Water 150 ml 60 ml IV Total 626.04 ml 653.54 ml Tube Feeding 660 ml 660 ml Output Urine Total 200 ml # Voids 7 2 # Bowel Movements 3 2 Laboratory Tests Test 11/26/18 04:50 White Blood Count 14.6 K/UL (4.8-10.8) H Red Blood Count 3.43 M/UL (4.70-6.10) L Hemoglobin 9.3 G/DL (14.2-18.0) L Hematocrit 29.8 % (42.0-52.0) L Mean Corpuscular Volume 87 FL (80-99) Mean Corpuscular Hemoglobin 27.1 PG (27.0-31.0) Mean Corpuscular Hemoglobin Concent 31.2 G/DL (32.0-36.0) L Red Cell Distribution Width 16.3 % (11.6-14.8) H Platelet Count 233 K/UL (150-450) Mean Platelet Volume 6.3 FL (6.5-10.1) L Neutrophils (%) (Auto) 76.2 % (45.0-75.0) H Lymphocytes (%) (Auto) 11.8 % (20.0-45.0) L Monocytes (%) (Auto) 10.0 % (1.0-10.0) Eosinophils (%) (Auto) 1.3 % (0.0-3.0) Basophils (%) (Auto) 0.7 % (0.0-2.0) Sodium Level 150 MMOL/L (136-145) H Potassium Level 4.1 MMOL/L (3.5-5.1) Chloride Level 114 MMOL/L (98-107) H Carbon Dioxide Level 33 MMOL/L (21-32) H Anion Gap 3 mmol/L (5-15) L Blood Urea Nitrogen 16 mg/dL (7-18) Creatinine 0.8 MG/DL (0.55-1.30) Estimat Glomerular Filtration Rate mL/min (>60) Glucose Level 121 MG/DL (74-106) H Calcium Level 8.7 MG/DL (8.5-10.1) Total Bilirubin 0.4 MG/DL (0.2-1.0) Aspartate Amino Transf (AST/SGOT) 34 U/L (15-37) Alanine Aminotransferase (ALT/SGPT) 85 U/L (12-78) H Alkaline Phosphatase 128 U/L (46-116) H Total Protein 7.1 G/DL (6.4-8.2) Albumin 2.1 G/DL (3.4-5.0) L Globulin 5.0 g/dL Albumin/Globulin Ratio 0.4 (1.0-2.7) L Objective HEAD AND NECK: Tracheostomy intact. LUNGS: Coarse rhonchi.Decreased breath sounds CARDIOVASCULAR: Irregular irregular S1 and S2 with no gallop. ABDOMEN: Status post G-tube, distended. EXTREMITIES: Reveal 1+ edema. Luke Prather MD Nov 26, 2018 14:57
--- NOTE | 2018-11-26 16:04 | General Progress Note ---
Assessment/Plan Problem List: (1) Hypernatremia ICD Codes: E87.0 - Hyperosmolality and hypernatremia SNOMED: 36794264 (2) Rhabdomyolysis ICD Codes: M62.82 - Rhabdomyolysis SNOMED: 024071560 (3) Sacral decubitus ulcer ICD Codes: L89.159 - Pressure ulcer of sacral region, unspecified stage SNOMED: 980555493 (4) Severe sepsis ICD Codes: A41.9 - Sepsis, unspecified organism; R65.20 - Severe sepsis without septic shock SNOMED: 79821501 (5) Septic shock ICD Codes: A41.9 - Sepsis, unspecified organism; R65.21 - Severe sepsis with septic shock SNOMED: 96584087 (6) DM (7) Anemia ICD Codes: D64.9 - Anemia, unspecified SNOMED: 234896551 (8) Prostate enlargement ICD Codes: N40.0 - Benign prostatic hyperplasia without lower urinary tract symptoms SNOMED: 386380006 (9) Chronic renal disease ICD Codes: N18.9 - Chronic kidney disease, unspecified SNOMED: 739013517 (10) Ventilator dependence ICD Codes: Z99.11 - Dependence on respirator [ventilator] status SNOMED: 735479200 (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 - Gastrostomy status SNOMED: 448754743, 975608663 (12) Malnutrition ICD Codes: E46 - Unspecified protein-calorie malnutrition SNOMED: 23537694 Status: unchanged Assessment/Plan: pacemaker decision per dr reece i agree w dnr i told team i agree with dpoa decision re intensinty and level of care hypernatremia resp insuff trach and peg reviewed chart and labs bph uti Subjective ROS Limited/Unobtainable: Yes Allergies: Coded Allergies: TERAZOSIN (Verified Allergy, Unknown, 10/27/17) Objective Last 24 Hour Vital Signs Date Time Temp Pulse Resp B/P (MAP) Pulse Ox O2 Delivery O2 Flow Rate FiO2 11/26/18 14:45 87 22 94 Mechanical Ventilator 50 81 23 50 11/26/18 12:53 75 11/26/18 12:51 97 29 50 11/26/18 12:30 85 13 160/75 (103) 92 11/26/18 12:00 99.0 87 21 160/70 (100) 92 11/26/18 12:00 Mechanical Ventilator 11/26/18 12:00 50 11/26/18 12:00 160/75 11/26/18 12:00 93 11/26/18 11:30 87 13 156/66 (96) 93 11/26/18 11:00 160/70 11/26/18 11:00 95 17 165/68 (100) 92 11/26/18 10:36 92 22 92 Mechanical Ventilator 50 85 22 50 11/26/18 10:30 87 25 166/95 (118) 77 11/26/18 10:00 142/62 11/26/18 10:00 50 11/26/18 10:00 87 16 142/62 (88) 97 11/26/18 09:30 87 22 142/56 (84) 97 11/26/18 09:00 92 22 146/54 (84) 100 11/26/18 09:00 87 20 155/69 (97) 97 11/26/18 09:00 142/56 11/26/18 08:55 106 22 50 11/26/18 08:30 92 22 146/54 (84) 100 11/26/18 08:00 50 11/26/18 08:00 146/54 11/26/18 08:00 90 21 179/78 (111) 97 11/26/18 08:00 Mechanical Ventilator 11/26/18 08:00 94 11/26/18 07:30 98.8 94 25 181/88 (119) 88 11/26/18 07:07 92 22 98 Mechanical Ventilator 50 91 22 50 11/26/18 07:00 91 21 169/82 (111) 11/26/18 07:00 181/88 11/26/18 06:30 93 21 165/76 (105) 11/26/18 06:00 90 22 148/74 (98) 11/26/18 06:00 148/74 11/26/18 05:30 92 22 169/77 (107) 11/26/18 05:00 94 39 182/83 (116) 11/26/18 05:00 182/83 11/26/18 04:55 86 24 50 11/26/18 04:30 95 26 152/117 (129) 96 11/26/18 04:00 99.0 92 24 138/76 (96) 97 11/26/18 04:00 50 11/26/18 04:00 Mechanical Ventilator 11/26/18 04:00 138/76 11/26/18 04:00 78 11/26/18 03:30 81 22 128/67 (87) 100 11/26/18 03:08 94 23 99 Mechanical Ventilator 50 11/26/18 03:00 97 22 129/71 (90) 100 11/26/18 03:00 129/71 11/26/18 02:58 91 23 99 Mechanical Ventilator 50 91 23 50 11/26/18 02:30 93 22 140/63 (88) 100 11/26/18 02:00 175/96 11/26/18 02:00 80 27 175/96 (122) 86 11/26/18 01:30 96 22 166/82 (110) 96 11/26/18 01:00 90 23 154/76 (102) 93 11/26/18 01:00 166/82 11/26/18 00:55 95 22 50 11/26/18 00:30 97 23 152/75 (100) 100 11/26/18 00:00 86 11/26/18 00:00 Mechanical Ventilator 11/26/18 00:00 50 11/26/18 00:00 152/75 11/26/18 00:00 99.2 95 22 141/69 (93) 97 11/25/18 23:30 92 22 143/66 (91) 100 11/25/18 23:00 91 22 100 Mechanical Ventilator 50 11/25/18 23:00 104 22 149/73 (98) 100 11/25/18 23:00 149/73 11/25/18 22:50 92 22 100 Mechanical Ventilator 50 92 22 50 11/25/18 22:30 91 22 135/70 (91) 11/25/18 22:00 135/70 11/25/18 22:00 92 22 147/75 (99) 95 11/25/18 21:30 98 24 153/72 (99) 100 11/25/18 21:04 113 24 50 11/25/18 21:00 93 25 158/92 (114) 91 11/25/18 21:00 153/72 11/25/18 20:50 127/90 11/25/18 20:30 89 20 127/90 (102) 100 11/25/18 20:00 Mechanical Ventilator 10/20/19 20:00 50 11/25/18 20:00 98.6 92 23 140/64 (89) 100 11/25/18 20:00 127/90 11/25/18 20:00 88 11/25/18 19:30 97 25 150/95 (113) 98 11/25/18 19:25 113 23 100 Mechanical Ventilator 50 11/25/18 19:14 89 22 99 Mechanical Ventilator 50 89 22 50 11/25/18 19:00 150/95 11/25/18 19:00 94 22 149/77 (101) 92 11/25/18 18:00 181/76 11/25/18 18:00 86 21 181/76 (111) 97 11/25/18 17:00 87 25 141/74 (96) 98 11/25/18 17:00 141/74 11/25/18 16:45 92 30 Mechanical Ventilator 50 11/25/18 16:22 156/61 11/25/18 16:00 98.8 94 23 171/80 (110) 97 11/25/18 16:00 93 11/25/18 16:00 50 11/25/18 16:00 156/61 11/25/18 16:00 Mechanical Ventilator Intake and Output 11/25/18 11/26/18 19:00 07:00 Intake Total 1436.04 ml 1373.54 ml Output Total 200 ml Balance 1436.04 ml 1173.54 ml Intake Free Water 150 ml 60 ml IV Total 626.04 ml 653.54 ml Tube Feeding 660 ml 660 ml Output Urine Total 200 ml # Voids 7 2 # Bowel Movements 3 2 Laboratory Tests 11/26/18 04:50: White Blood Count 14.6H, Red Blood Count 3.43L, Hemoglobin 9.3L, Hematocrit 29.8L, Mean Corpuscular Volume 87, Mean Corpuscular Hemoglobin 27.1, Mean Corpuscular Hemoglobin Concent 31.2L, Red Cell Distribution Width 16.3H, Platelet Count 233, Mean Platelet Volume 6.3L, Neutrophils (%) (Auto) 76.2H, Lymphocytes (%) (Auto) 11.8L, Monocytes (%) (Auto) 10.0, Eosinophils (%) (Auto) 1.3, Basophils (%) (Auto) 0.7, Sodium Level 150H, Potassium Level 4.1, Chloride Level 114H, Carbon Dioxide Level 33H, Anion Gap 3L, Blood Urea Nitrogen 16, Creatinine 0.8, Estimat Glomerular Filtration Rate , Glucose Level 121H, Calcium Level 8.7, Total Bilirubin 0.4, Aspartate Amino Transf (AST/SGOT) 34, Alanine Aminotransferase (ALT/SGPT) 85H, Alkaline Phosphatase 128H, Total Protein 7.1, Albumin 2.1L, Globulin 5.0, Albumin/Globulin Ratio 0.4L Height (Feet): 5 Height (Inches): 5.00 Weight (Pounds): 167 Respiratory/Chest: lungs clear Abdomen: soft Trish Matias MD Nov 26, 2018 16:04
--- NOTE | 2018-11-26 16:58 | Diagnostic Imaging Report ---
Indication: Shortness of breath Technique: One view of the chest Comparison: 11/23/2018 Findings: Again demonstrated is bilateral diffuse interstitial and airspace edema, bilateral pleural effusions. Tracheostomy, left arm PICC remain. Findings are unchanged Impression: Unchanged, over one day, findings as above.
[2018-11-26] MEDS ORDERED: Atropine Sulfate 0.4mg/ml inj IVP PRN (18:00)
[2018-11-26] MEDS: Dyna-Hex 2% Top Sol 2oz TOPIC SCH (19:55)
[2018-11-26] MEDS: Tamsulosin 0.4mg cap ORAL SCH (21:08)
[2018-11-26] MEDS: LORazepam Inj 2mg/ml 1ml IV PRN (21:19)
[2018-11-27] VITALS (25 sets, daily range): BP systolic 113–182; BP diastolic 6–81
[2018-11-27] MEDS: Albuterol/Ipratropium 3ml neb HHN SCH ×6 (03:45→23:01)
[2018-11-27] MEDS: Piperacillin/Tazobactam 3.375 GM in NS 110 ML IVPB SCH ×2 (03:51→12:10)
[2018-11-27 06:07] LABS: BASOPHILS % (AUTO) 0.7 % (0.0-2.0); EOSINOPHILS % (AUTO) 1.7 % (0.0-3.0); HEMOGLOBIN 8.2 G/DL (14.2-18.0); LYMPHOCYTES % (AUTO) 13.5 % (20.0-45.0); MEAN CORPUSCULAR VOLUME 87 FL (80-99); MONOCYTES % (AUTO) 9.5 % (1.0-10.0); NEUTROPHILS % (AUTO) 74.6 % (45.0-75.0); PLATELET COUNT 212 K/UL (150-450); RED BLOOD COUNT 3.01 M/UL (4.70-6.10); RED CELL DISTRIBUTION WIDTH 16.4 % (11.6-14.8); WHITE BLOOD COUNT 9.9 K/UL (4.8-10.8)
[2018-11-27 06:08] LABS: ANION GAP 2 mmol/L (5-15); BLOOD UREA NITROGEN 18 mg/dL (7-18); CALCIUM 8.5 MG/DL (8.5-10.1); CARBON DIOXIDE 35 MMOL/L (21-32); CHLORIDE 116 MMOL/L (98-107); CREATININE 0.8 MG/DL (0.55-1.30); POTASSIUM 4.1 MMOL/L (3.5-5.1); SODIUM 153 MMOL/L (136-145)
[2018-11-27] MEDS: LORazepam Inj 2mg/ml 1ml IV PRN ×3 (06:08→16:58)
[2018-11-27] MEDS: NovoLOG Insulin Flexpen SUBQ SCH ×4 (06:12→21:18)
--- NOTE | 2018-11-27 08:26 | Critical Care Progress Note ---
Assessment/Plan Assessment/Plan Impression: ho Pneumonia Ventilator dependant respiratory failure chronic respiratory failure Severe sepsis -history of NSTEMI Anemia Dysphagia s/p G tube Chronic wounds Dementia Organic Brain Syndrome Diabetes Chronic renal disease BPH Penile wound CHF H/o Hypertension severe Protein Calorie Malnutrition Plan antibiotic regimen noted monitor blood pressure HHN Q4 and monitor secretions and suction PRN on full vent support-AC- no wean per family ? withdraw care monitor oxygen needs- and adjust monitor HH DVT and PUD prophylaxis Gtube feeds as able; monitor residuals and reflux aspiration monitor residuals for change now DNR multiorgan disease with poor prognosis remains critical at present hope to transition out of ICU will need senior care care medications/laboratory data/nursing notes/ICU care reviewed in detail note reviewed and edited care discussed with RN and RT ICU time spent 40 minutes Critical Care - Subjective Interval Events: care noted vital better poor LOC family wants to withdraw care per nursing DNR ROS Limited/Unobtainable: Yes Condition: critical EKG Rhythm: Sinus Rhythm Residuals: minimal Tube Feeding Tolerated: yes I&O: Intake and Output 11/26/18 11/27/18 19:00 07:00 Intake Total 1139.86 ml 1222.5 ml Output Total 400 ml 252 ml Balance 739.86 ml 970.5 ml Intake Free Water 120 ml IV Total 534.86 ml 442.5 ml Tube Feeding 605 ml 660 ml Output Urine Total 400 ml 252 ml # Voids 8 # Bowel Movements 3 Critical Care - Objective Last 24 Hour Vital Signs Date Time Temp Pulse Resp B/P (MAP) Pulse Ox O2 Delivery O2 Flow Rate FiO2 11/27/18 07:10 70 25 100 Mechanical Ventilator 50 64 26 50 11/27/18 06:00 77 21 142/64 (90) 100 11/27/18 05:14 94 22 50 11/27/18 05:00 92 21 150/63 (92) 100 11/27/18 04:00 84 11/27/18 04:00 86 30 170/74 (106) 96 11/27/18 04:00 50 11/27/18 04:00 Mechanical Ventilator 11/27/18 03:45 92 23 100 Mechanical Ventilator 50 94 22 50 11/27/18 03:00 92 18 165/74 (104) 93 11/27/18 02:00 84 18 156/64 (94) 95 11/27/18 01:20 91 22 50 11/27/18 01:00 77 18 139/61 (87) 95 11/27/18 00:00 50 11/27/18 00:00 80 11/27/18 00:00 Mechanical Ventilator 11/27/18 00:00 99.4 80 23 139/61 (87) 96 11/26/18 23:56 89 21 100 Mechanical Ventilator 50 89 21 50 11/26/18 23:00 90 23 162/76 (104) 100 11/26/18 22:00 89 23 162/76 (104) 100 11/26/18 21:10 94 18 50 11/26/18 21:00 89 22 160/84 (109) 100 11/26/18 20:00 Mechanical Ventilator 11/26/18 20:00 50 11/26/18 20:00 91 11/26/18 20:00 98.8 87 23 158/80 (106) 100 11/26/18 19:30 91 22 100 Mechanical Ventilator 50 91 22 50 11/26/18 18:00 94 11/26/18 18:00 87 20 157/70 (99) 100 11/26/18 17:14 93 23 50 11/26/18 17:00 96 26 165/130 (142) 87 11/26/18 16:30 95 22 150/105 (120) 89 11/26/18 16:00 50 11/26/18 16:00 Mechanical Ventilator 11/26/18 16:00 74 27 177/92 (120) 93 11/26/18 15:30 95 23 164/76 (105) 87 11/26/18 15:00 91 22 141/112 (122) 89 11/26/18 14:45 87 22 94 Mechanical Ventilator 50 81 23 50 11/26/18 14:30 84 20 156/65 (95) 98 11/26/18 14:00 90 22 161/65 (97) 98 11/26/18 13:30 98 24 172/76 (108) 96 11/26/18 13:00 95 10 170/88 (115) 99 11/26/18 12:53 75 11/26/18 12:51 97 29 50 11/26/18 12:30 85 13 160/75 (103) 92 11/26/18 12:00 99.0 87 21 160/70 (100) 92 11/26/18 12:00 Mechanical Ventilator 11/26/18 12:00 50 11/26/18 12:00 160/75 11/26/18 12:00 93 11/26/18 11:30 87 13 156/66 (96) 93 11/26/18 11:00 160/70 11/26/18 11:00 95 17 165/68 (100) 92 11/26/18 10:36 92 22 92 Mechanical Ventilator 50 85 22 50 11/26/18 10:30 87 25 166/95 (118) 77 11/26/18 10:00 142/62 11/26/18 10:00 50 11/26/18 10:00 87 16 142/62 (88) 97 11/26/18 09:30 87 22 142/56 (84) 97 11/26/18 09:00 92 22 146/54 (84) 100 11/26/18 09:00 87 20 155/69 (97) 97 11/26/18 09:00 142/56 11/26/18 08:55 106 22 50 11/26/18 08:30 92 22 146/54 (84) 100 Labs: Labs Test 11/26/18 04:50 11/27/18 05:15 White Blood Count 14.6 K/UL (4.8-10.8) 9.9 K/UL (4.8-10.8) Red Blood Count 3.43 M/UL (4.70-6.10) 3.01 M/UL (4.70-6.10) Hemoglobin 9.3 G/DL (14.2-18.0) 8.2 G/DL (14.2-18.0) Hematocrit 29.8 % (42.0-52.0) 26.0 % (42.0-52.0) Mean Corpuscular Volume 87 FL (80-99) 87 FL (80-99) Mean Corpuscular Hemoglobin 27.1 PG (27.0-31.0) 27.2 PG (27.0-31.0) Mean Corpuscular Hemoglobin Concent 31.2 G/DL (32.0-36.0) 31.4 G/DL (32.0-36.0) Red Cell Distribution Width 16.3 % (11.6-14.8) 16.4 % (11.6-14.8) Platelet Count 233 K/UL (150-450) 212 K/UL (150-450) Mean Platelet Volume 6.3 FL (6.5-10.1) 6.3 FL (6.5-10.1) Neutrophils (%) (Auto) 76.2 % (45.0-75.0) 74.6 % (45.0-75.0) Lymphocytes (%) (Auto) 11.8 % (20.0-45.0) 13.5 % (20.0-45.0) Monocytes (%) (Auto) 10.0 % (1.0-10.0) 9.5 % (1.0-10.0) Eosinophils (%) (Auto) 1.3 % (0.0-3.0) 1.7 % (0.0-3.0) Basophils (%) (Auto) 0.7 % (0.0-2.0) 0.7 % (0.0-2.0) Sodium Level 150 MMOL/L (136-145) 153 MMOL/L (136-145) Potassium Level 4.1 MMOL/L (3.5-5.1) 4.1 MMOL/L (3.5-5.1) Chloride Level 114 MMOL/L (98-107) 116 MMOL/L (98-107) Carbon Dioxide Level 33 MMOL/L (21-32) 35 MMOL/L (21-32) Anion Gap 3 mmol/L (5-15) 2 mmol/L (5-15) Blood Urea Nitrogen 16 mg/dL (7-18) 18 mg/dL (7-18) Creatinine 0.8 MG/DL (0.55-1.30) 0.8 MG/DL (0.55-1.30) Estimat Glomerular Filtration Rate mL/min (>60) mL/min (>60) Glucose Level 121 MG/DL (74-106) 120 MG/DL (74-106) Calcium Level 8.7 MG/DL (8.5-10.1) 8.5 MG/DL (8.5-10.1) Total Bilirubin 0.4 MG/DL (0.2-1.0) Aspartate Amino Transf (AST/SGOT) 34 U/L (15-37) Alanine Aminotransferase (ALT/SGPT) 85 U/L (12-78) Alkaline Phosphatase 128 U/L (46-116) Total Protein 7.1 G/DL (6.4-8.2) Albumin 2.1 G/DL (3.4-5.0) Globulin 5.0 g/dL Albumin/Globulin Ratio 0.4 (1.0-2.7) Objective: WDWN NAD on vent and poorly responsive reduced breath sounds bilaterally with noted rhonchi [id number] without MRG NABS nontender no HSM; GT; non distended no CC mild edema nonfocal reduced LOC skin noted reviewed and edited Micro: Microbiology Date/Time Source Procedure Growth Status 11/26/18 20:00 Sputum Expectorated Gram Stain - Final Resulted 11/26/18 20:00 Sputum Expectorated Sputum Culture Pending Resulted Accucheck: 122 Chele Wolfe MD Nov 27, 2018 08:26
[2018-11-27] MEDS: ZyPREXA Zydis 5mg tab GT SCH (09:06)
[2018-11-27] MEDS: Pantoprazole Inj IVP SCH ×2 (09:06→21:17)
--- NOTE | 2018-11-27 11:12 | Hematology/Onc Progress Note ---
Assessment/Plan Assessment/Plan ASSESSMENT AND RECOMMENDATIONS # Leukocytosis. Likely related to underlying infection with sepsis and elevated severely on admission --> Imaging has been reviewed. Shows cxr left lung inil/v edema --> Blood cs and urine cx are reviewed --> Has been started on abx, empiric tx (zosyn) --> PERIPHERAL SMEAR SHOWS ATYPICAL LYMPHOCYTES--> has stabilized, improved --> Flow cytometry ordered with pathologist -> no atypical findings are noted --> wbc 52k-->47k-->29k->16-->12-->14->12-->12-->21-->14->11->15->9 --> picc was repositioned # Anemia of chronic disease, due to underlying chronic medical issues, multifactorial. --> Anemia w/u has been ordered --> with hyperferritinemia --> No evidence of hemolysis noted, peripheral smear has been reviewed --> Hgb goal >7. Transfuse as needed --> hgb trend 7.5-->6.6->9.1-->9.2-->8.9-->9.9->8.3-->8.5-->9.3-->8.2 --> 2 units transfuse on 11/15 --> will need to follow as outpatient and may need chelation therapy --> GI workup once more stable # Failure to thrive (FTT) - decreased bmi and low protein --> cea 4.3 --> will obtain q3 day caloric counts --> mirtazapine as appetite stimulant --> GI consult on a prn basis, as needed for endosc # Asystole with pauses may need pm per family --> as per cards recs # Sepsis, which has improved # PEG # Malnutrition. 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 Greatly appreciate consultation. Subjective Constitutional: Denies: no symptoms, chills, fever, malaise, weakness, other HEENT: Denies: no symptoms, eye pain, blurred vision, tearing, double vision, ear pain, ear discharge, nose pain, nose congestion, throat pain, throat swelling, mouth pain, mouth swelling, other Cardiovascular: Denies: no symptoms, chest pain, edema, irregular heart rate, lightheadedness, palpitations, syncope, other Gastrointestinal/Abdominal: Denies: no symptoms, abdomen distended, abdominal pain, black stools, tarry stools, blood in stool, constipated, diarrhea, difficulty swallowing, nausea, poor appetite, poor fluid intake, rectal bleeding , vomiting, other Genitourinary: Denies: no symptoms, burning, discharge, frequency, flank pain, hematuria, incontinence, pain, urgency, other Neurologic/Psychiatric: Denies: no symptoms, anxiety, depressed, emotional problems, headache, numbness, paresthesia, pre-existing deficit, seizure, tingling, tremors, weakness, other Endocrine: Denies: no symptoms, excessive sweating, flushing, intolerance to cold, intolerance to heat, increased hunger, increased thirst, increased urine, unexplained weight gain, unexplained weight loss, other Allergies: Coded Allergies: TERAZOSIN (Verified Allergy, Unknown, 10/27/17) Subjective 11/16: in the icu, is off pressors, doing better, no bleeding 11/18: no bleeding, remains on doxy and zosyn, no bleeding reported 11/19: out of the icu, on vent/trach, no major changes, jimeenz rn 11/20: no bleeding noted, no night sweats, meds reviewed, no f/c 11/21: on vent, obtunded, with gt ongong, with picc, no bleeding 10.17: stricture advanced through with uro, with crabtree, labs noted 11/23: no events to report, no bleeding, labs reviewed, in icu 11/24: remains in the icu, with asystole, pending discussion with fam re pM 11/25: continues to have pauses, no bleeding, seen by cards, no events 11/26: no ets, no bleeding noted, no night sweats, no f/c 11/27: hgb 8.2, no bleeding or chills, no major changes on trach/vent, jimenez RN Objective Objective Current Medications Medications (Trade) Dose Ordered Sig/Ruthie Route PRN Reason Start Time Stop Time Status Last Admin Dose Admin Acetaminophen (Tylenol) 650 mg Q6H PRN GT Mild Pain/Temp > 100.5 11/23/18 09:39 12/15/18 09:38 11/25/18 16:22 Albuterol/ Ipratropium (Albuterol/ Ipratropium) 3 ml Q4HRT HHN 11/23/18 11:00 11/28/18 10:59 11/27/18 07:13 Atropine Sulfate (Atropine 0.4mg/ ml) 0.4 mg Q5M PRN IVP HR<30 for 30 seconds 11/26/18 18:00 12/26/18 17:59 Bisacodyl (Dulcolax) 10 mg DAILYPRN PRN RECTAL Constipation 11/23/18 09:39 12/18/18 09:38 Chlorhexidine Gluconate (Rachael-Hex 2%) 1 applic DAILY@2000 TOPIC 11/23/18 20:00 12/15/18 19:59 11/26/18 19:55 Dextrose 1,000 ml @ 30 mls/hr Q24H IV 11/23/18 10:45 12/23/18 10:44 11/27/18 09:07 Dextrose (Dextrose 50%) 25 ml Q30M PRN IV Hypoglycemia 11/23/18 09:39 12/15/18 09:38 Dextrose (Dextrose 50%) 50 ml Q30M PRN IV Hypoglycemia 11/23/18 09:45 12/15/18 05:44 Hydromorphone HCl (Dilaudid) 0.5 mg Q4H PRN IVP For Pain 11/23/18 09:40 11/29/18 09:39 Insulin Aspart (NovoLOG) BEFORE MEALS AND HS SUBQ 11/23/18 11:30 12/15/18 06:29 11/27/18 06:12 Lorazepam (Ativan 2mg/ml 1ml) 0.5 mg Q2H PRN IV For Anxiety 11/23/18 10:45 11/30/18 10:44 11/27/18 09:23 Olanzapine (ZyPREXA Zydis) 7.5 mg DAILY GT 11/24/18 09:00 12/15/18 08:59 11/27/18 09:06 Pantoprazole (Protonix) 40 mg EVERY 12 HOURS IVP 11/23/18 21:00 12/15/18 08:59 11/27/18 09:06 Piperacillin Sod/ Tazobactam Sod 3.375 gm/Sodium Chloride 110 ml @ 27.5 mls/hr Q8H IVPB 11/23/18 12:00 12/02/18 11:59 11/27/18 03:51 Quetiapine Fumarate (SEROquel) 50 mg DAILY GT 11/24/18 09:00 12/15/18 08:59 11/27/18 09:05 Tamsulosin HCl (Flomax) 0.4 mg BEDTIME ORAL 11/23/18 21:00 12/15/18 20:59 11/26/18 21:08 Last 24 Hour Vital Signs Date Time Temp Pulse Resp B/P (MAP) Pulse Ox O2 Delivery O2 Flow Rate FiO2 11/27/18 10:56 79 24 96 Mechanical Ventilator 50 80 23 50 11/27/18 09:22 81 22 50 11/27/18 08:00 83 11/27/18 08:00 99.2 83 22 147/73 (97) 93 11/27/18 07:10 70 25 100 Mechanical Ventilator 50 64 26 50 11/27/18 07:00 85 22 146/78 (100) 100 11/27/18 06:00 77 21 142/64 (90) 100 11/27/18 05:14 94 22 50 11/27/18 05:00 92 21 150/63 (92) 100 11/27/18 04:00 84 11/27/18 04:00 86 30 170/74 (106) 96 11/27/18 04:00 50 11/27/18 04:00 Mechanical Ventilator 11/27/18 03:45 92 23 100 Mechanical Ventilator 50 94 22 50 11/27/18 03:00 92 18 165/74 (104) 93 11/27/18 02:00 84 18 156/64 (94) 95 11/27/18 01:20 91 22 50 11/27/18 01:00 77 18 139/61 (87) 95 11/27/18 00:00 50 11/27/18 00:00 80 11/27/18 00:00 Mechanical Ventilator 11/27/18 00:00 99.4 80 23 139/61 (87) 96 11/26/18 23:56 89 21 100 Mechanical Ventilator 50 89 21 50 11/26/18 23:00 90 23 162/76 (104) 100 11/26/18 22:00 89 23 162/76 (104) 100 11/26/18 21:10 94 18 50 11/26/18 21:00 89 22 160/84 (109) 100 11/26/18 20:00 Mechanical Ventilator 11/26/18 20:00 50 11/26/18 20:00 91 11/26/18 20:00 98.8 87 23 158/80 (106) 100 11/26/18 19:30 91 22 100 Mechanical Ventilator 50 91 22 50 11/26/18 18:00 94 11/26/18 18:00 87 20 157/70 (99) 100 11/26/18 17:14 93 23 50 11/26/18 17:00 96 26 165/130 (142) 87 11/26/18 16:30 95 22 150/105 (120) 89 11/26/18 16:00 50 11/26/18 16:00 Mechanical Ventilator 11/26/18 16:00 74 27 177/92 (120) 93 11/26/18 15:30 95 23 164/76 (105) 87 11/26/18 15:00 91 22 141/112 (122) 89 11/26/18 14:45 87 22 94 Mechanical Ventilator 50 81 23 50 11/26/18 14:30 84 20 156/65 (95) 98 11/26/18 14:00 90 22 161/65 (97) 98 11/26/18 13:30 98 24 172/76 (108) 96 11/26/18 13:00 95 10 170/88 (115) 99 11/26/18 12:53 75 11/26/18 12:51 97 29 50 11/26/18 12:30 85 13 160/75 (103) 92 11/26/18 12:00 99.0 87 21 160/70 (100) 92 11/26/18 12:00 Mechanical Ventilator 11/26/18 12:00 50 11/26/18 12:00 160/75 11/26/18 12:00 93 11/26/18 11:30 87 13 156/66 (96) 93 11/26/18 11:00 160/70 11/26/18 11:00 95 17 165/68 (100) 92 11/26/18 10:36 92 22 92 Mechanical Ventilator 50 85 22 50 11/26/18 10:30 87 25 166/95 (118) 77 11/26/18 10:00 142/62 11/26/18 10:00 50 11/26/18 10:00 87 16 142/62 (88) 97 11/26/18 09:30 87 22 142/56 (84) 97 11/26/18 09:00 92 22 146/54 (84) 100 11/26/18 09:00 87 20 155/69 (97) 97 11/26/18 09:00 142/56 11/26/18 08:55 106 22 50 11/26/18 08:30 92 22 146/54 (84) 100 11/26/18 08:00 50 11/26/18 08:00 146/54 11/26/18 08:00 90 21 179/78 (111) 97 11/26/18 08:00 Mechanical Ventilator 11/26/18 08:00 94 11/26/18 07:30 98.8 94 25 181/88 (119) 88 11/26/18 07:07 92 22 98 Mechanical Ventilator 50 91 22 50 11/26/18 07:00 91 21 169/82 (111) 11/26/18 07:00 181/88 11/26/18 06:30 93 21 165/76 (105) 11/26/18 06:00 90 22 148/74 (98) 11/26/18 06:00 148/74 11/26/18 05:30 92 22 169/77 (107) 11/26/18 05:00 94 39 182/83 (116) 11/26/18 05:00 182/83 11/26/18 04:55 86 24 50 11/26/18 04:30 95 26 152/117 (129) 96 11/26/18 04:00 99.0 92 24 138/76 (96) 97 11/26/18 04:00 50 11/26/18 04:00 Mechanical Ventilator 11/26/18 04:00 138/76 11/26/18 04:00 78 11/26/18 03:30 81 22 128/67 (87) 100 11/26/18 03:08 94 23 99 Mechanical Ventilator 50 11/26/18 03:00 97 22 129/71 (90) 100 11/26/18 03:00 129/71 11/26/18 02:58 91 23 99 Mechanical Ventilator 50 91 23 50 11/26/18 02:30 93 22 140/63 (88) 100 11/26/18 02:00 175/96 11/26/18 02:00 80 27 175/96 (122) 86 11/26/18 01:30 96 22 166/82 (110) 96 11/26/18 01:00 90 23 154/76 (102) 93 11/26/18 01:00 166/82 11/26/18 00:55 95 22 50 11/26/18 00:30 97 23 152/75 (100) 100 11/26/18 00:00 86 11/26/18 00:00 Mechanical Ventilator 11/26/18 00:00 50 11/26/18 00:00 152/75 11/26/18 00:00 99.2 95 22 141/69 (93) 97 11/25/18 23:30 92 22 143/66 (91) 100 11/25/18 23:00 91 22 100 Mechanical Ventilator 50 11/25/18 23:00 104 22 149/73 (98) 100 11/25/18 23:00 149/73 11/25/18 22:50 92 22 100 Mechanical Ventilator 50 92 22 50 11/25/18 22:30 91 22 135/70 (91) 11/25/18 22:00 135/70 11/25/18 22:00 92 22 147/75 (99) 95 11/25/18 21:30 98 24 153/72 (99) 100 11/25/18 21:04 113 24 50 11/25/18 21:00 93 25 158/92 (114) 91 11/25/18 21:00 153/72 11/25/18 20:50 127/90 11/25/18 20:30 89 20 127/90 (102) 100 11/25/18 20:00 Mechanical Ventilator 11/25/18 20:00 50 11/25/18 20:00 98.6 92 23 140/64 (89) 100 11/25/18 20:00 127/90 11/25/18 20:00 88 11/25/18 19:30 97 25 150/95 (113) 98 11/25/18 19:25 113 23 100 Mechanical Ventilator 50 11/25/18 19:14 89 22 99 Mechanical Ventilator 50 89 22 50 11/25/18 19:00 150/95 11/25/18 19:00 94 22 149/77 (101) 92 11/25/18 18:00 181/76 11/25/18 18:00 86 21 181/76 (111) 97 11/25/18 17:00 87 25 141/74 (96) 98 11/25/18 17:00 141/74 11/25/18 16:45 92 30 Mechanical Ventilator 50 11/25/18 16:22 156/61 11/25/18 16:00 98.8 94 23 171/80 (110) 97 11/25/18 16:00 93 11/25/18 16:00 50 11/25/18 16:00 156/61 11/25/18 16:00 Mechanical Ventilator 11/25/18 15:27 84 29 96 Mechanical Ventilator 50 90 22 50 11/25/18 15:00 156/71 11/25/18 15:00 94 31 156/71 (99) 92 11/25/18 14:00 156/71 11/25/18 14:00 89 25 149/76 (100) 94 11/25/18 13:00 149/76 11/25/18 13:00 90 34 154/72 (99) 95 11/25/18 12:43 90 22 50 11/25/18 12:00 88 11/25/18 12:00 50 11/25/18 12:00 99.1 87 25 149/78 (101) 95 11/25/18 12:00 154/72 11/25/18 12:00 Mechanical Ventilator 11/25/18 11:17 73 24 99 Mechanical Ventilator 50 78 23 50 Intake and Output 11/26/18 11/27/18 19:00 07:00 Intake Total 1139.86 ml 1222.5 ml Output Total 400 ml 252 ml Balance 739.86 ml 970.5 ml Intake Free Water 120 ml IV Total 534.86 ml 442.5 ml Tube Feeding 605 ml 660 ml Output Urine Total 400 ml 252 ml # Voids 8 # Bowel Movements 3 Labs Test 11/26/18 04:50 11/27/18 05:15 White Blood Count 14.6 K/UL (4.8-10.8) 9.9 K/UL (4.8-10.8) Red Blood Count 3.43 M/UL (4.70-6.10) 3.01 M/UL (4.70-6.10) Hemoglobin 9.3 G/DL (14.2-18.0) 8.2 G/DL (14.2-18.0) Hematocrit 29.8 % (42.0-52.0) 26.0 % (42.0-52.0) Mean Corpuscular Volume 87 FL (80-99) 87 FL (80-99) Mean Corpuscular Hemoglobin 27.1 PG (27.0-31.0) 27.2 PG (27.0-31.0) Mean Corpuscular Hemoglobin Concent 31.2 G/DL (32.0-36.0) 31.4 G/DL (32.0-36.0) Red Cell Distribution Width 16.3 % (11.6-14.8) 16.4 % (11.6-14.8) Platelet Count 233 K/UL (150-450) 212 K/UL (150-450) Mean Platelet Volume 6.3 FL (6.5-10.1) 6.3 FL (6.5-10.1) Neutrophils (%) (Auto) 76.2 % (45.0-75.0) 74.6 % (45.0-75.0) Lymphocytes (%) (Auto) 11.8 % (20.0-45.0) 13.5 % (20.0-45.0) Monocytes (%) (Auto) 10.0 % (1.0-10.0) 9.5 % (1.0-10.0) Eosinophils (%) (Auto) 1.3 % (0.0-3.0) 1.7 % (0.0-3.0) Basophils (%) (Auto) 0.7 % (0.0-2.0) 0.7 % (0.0-2.0) Sodium Level 150 MMOL/L (136-145) 153 MMOL/L (136-145) Potassium Level 4.1 MMOL/L (3.5-5.1) 4.1 MMOL/L (3.5-5.1) Chloride Level 114 MMOL/L (98-107) 116 MMOL/L (98-107) Carbon Dioxide Level 33 MMOL/L (21-32) 35 MMOL/L (21-32) Anion Gap 3 mmol/L (5-15) 2 mmol/L (5-15) Blood Urea Nitrogen 16 mg/dL (7-18) 18 mg/dL (7-18) Creatinine 0.8 MG/DL (0.55-1.30) 0.8 MG/DL (0.55-1.30) Estimat Glomerular Filtration Rate mL/min (>60) mL/min (>60) Glucose Level 121 MG/DL (74-106) 120 MG/DL (74-106) Calcium Level 8.7 MG/DL (8.5-10.1) 8.5 MG/DL (8.5-10.1) Total Bilirubin 0.4 MG/DL (0.2-1.0) Aspartate Amino Transf (AST/SGOT) 34 U/L (15-37) Alanine Aminotransferase (ALT/SGPT) 85 U/L (12-78) Alkaline Phosphatase 128 U/L (46-116) Total Protein 7.1 G/DL (6.4-8.2) Albumin 2.1 G/DL (3.4-5.0) Globulin 5.0 g/dL Albumin/Globulin Ratio 0.4 (1.0-2.7) Micro Microbiology Date/Time Source Procedure Growth Status 11/26/18 20:00 Sputum Expectorated Gram Stain - Final Resulted 11/26/18 20:00 Sputum Expectorated Sputum Culture Pending Resulted Height (Feet): 5 Height (Inches): 5.00 Weight (Pounds): 170 Objective Vitals: reviewed Gen: no apparent distress Head: normocephalic EENT: normal ENT inspection Respiratory: other - intubated vent+ Cardiovascular: normal rate Gastrointestinal: gt - c/d/i Rectal: deferred Genitourinary: no CVA tenderness Skin: normal color +++ decub : ++ Beny Fields MD Nov 27, 2018 11:12
--- NOTE | 2018-11-27 12:02 | Cardiac Electrophysiology PN ---
Assessment/Plan Assessment/Plan 1. S/P Septic shock with white count of 50,000 and lactic acid of 6. On IV antibiotic and IV fluid . WBC was 20k on 11/22 and is down to 13k on Abx. 2. S/P multiple episodes of asystole with HR down to 10 and pauses of more than 10 seconds earlier today . Off any MCGEE or AVN blockers. Needs permanent pacer implantation. Patient is full code. DW Son with RN present on the phone Mr. Faraz Erickson on 11/23/18 at . He did not want the pacer until he consults with his sisters to make a final decision. ID clearance obtained by Dr Cruz. Off Dopamine.Keep on prn Atropine Echo Nl EF. 3. Congestive heart failure with BNP of more than 17,000. Now BNP 3000 range 4. Troponin elevation, likely due to renal failure and anemia and septic shock. The levels are flat. EKG does not show any ST elevation. 5. S/P Acute renal failure. BUN of 48, creatinine of 2.5. Resolved BUN 15 and Cr now 0.8 6. Hypernatremia. Better with iv fluid 7. Ventilator-dependent respiratory failure, status post tracheostomy. 8. Dysphagia, status post PEG placement. 9. Profound anemia, hemoglobin of 6.5, rule out GI bleed. S/P blood transfusion. S/P EGD RICARDA RN and Dr. Matias Subjective Subjective Had another 10 second pause in ICU yesterday. DNR and family refusing Pacer implant Objective Last 24 Hour Vital Signs Date Time Temp Pulse Resp B/P (MAP) Pulse Ox O2 Delivery O2 Flow Rate FiO2 11/27/18 10:56 79 24 96 Mechanical Ventilator 50 80 23 50 11/27/18 09:22 81 22 50 11/27/18 08:00 83 11/27/18 08:00 99.2 83 22 147/73 (97) 93 11/27/18 07:10 70 25 100 Mechanical Ventilator 50 64 26 50 11/27/18 07:00 85 22 146/78 (100) 100 11/27/18 06:00 77 21 142/64 (90) 100 11/27/18 05:14 94 22 50 11/27/18 05:00 92 21 150/63 (92) 100 11/27/18 04:00 84 11/27/18 04:00 86 30 170/74 (106) 96 11/27/18 04:00 50 11/27/18 04:00 Mechanical Ventilator 11/27/18 03:45 92 23 100 Mechanical Ventilator 50 94 22 50 11/27/18 03:00 92 18 165/74 (104) 93 11/27/18 02:00 84 18 156/64 (94) 95 11/27/18 01:20 91 22 50 11/27/18 01:00 77 18 139/61 (87) 95 11/27/18 00:00 50 11/27/18 00:00 80 11/27/18 00:00 Mechanical Ventilator 11/27/18 00:00 99.4 80 23 139/61 (87) 96 11/26/18 23:56 89 21 100 Mechanical Ventilator 50 89 21 50 11/26/18 23:00 90 23 162/76 (104) 100 11/26/18 22:00 89 23 162/76 (104) 100 11/26/18 21:10 94 18 50 11/26/18 21:00 89 22 160/84 (109) 100 11/26/18 20:00 Mechanical Ventilator 11/26/18 20:00 50 11/26/18 20:00 91 11/26/18 20:00 98.8 87 23 158/80 (106) 100 11/26/18 19:30 91 22 100 Mechanical Ventilator 50 91 22 50 11/26/18 18:00 94 11/26/18 18:00 87 20 157/70 (99) 100 11/26/18 17:14 93 23 50 11/26/18 17:00 96 26 165/130 (142) 87 11/26/18 16:30 95 22 150/105 (120) 89 11/26/18 16:00 50 11/26/18 16:00 Mechanical Ventilator 11/26/18 16:00 74 27 177/92 (120) 93 11/26/18 15:30 95 23 164/76 (105) 87 11/26/18 15:00 91 22 141/112 (122) 89 11/26/18 14:45 87 22 94 Mechanical Ventilator 50 81 23 50 11/26/18 14:30 84 20 156/65 (95) 98 11/26/18 14:00 90 22 161/65 (97) 98 11/26/18 13:30 98 24 172/76 (108) 96 11/26/18 13:00 95 10 170/88 (115) 99 11/26/18 12:53 75 11/26/18 12:51 97 29 50 11/26/18 12:30 85 13 160/75 (103) 92 Intake and Output 11/26/18 11/27/18 19:00 07:00 Intake Total 1139.86 ml 1222.5 ml Output Total 400 ml 252 ml Balance 739.86 ml 970.5 ml Intake Free Water 120 ml IV Total 534.86 ml 442.5 ml Tube Feeding 605 ml 660 ml Output Urine Total 400 ml 252 ml # Voids 8 # Bowel Movements 3 Laboratory Tests Test 11/27/18 05:15 White Blood Count 9.9 K/UL (4.8-10.8) Red Blood Count 3.01 M/UL (4.70-6.10) L Hemoglobin 8.2 G/DL (14.2-18.0) L Hematocrit 26.0 % (42.0-52.0) L Mean Corpuscular Volume 87 FL (80-99) Mean Corpuscular Hemoglobin 27.2 PG (27.0-31.0) Mean Corpuscular Hemoglobin Concent 31.4 G/DL (32.0-36.0) L Red Cell Distribution Width 16.4 % (11.6-14.8) H Platelet Count 212 K/UL (150-450) Mean Platelet Volume 6.3 FL (6.5-10.1) L Neutrophils (%) (Auto) 74.6 % (45.0-75.0) Lymphocytes (%) (Auto) 13.5 % (20.0-45.0) L Monocytes (%) (Auto) 9.5 % (1.0-10.0) Eosinophils (%) (Auto) 1.7 % (0.0-3.0) Basophils (%) (Auto) 0.7 % (0.0-2.0) Sodium Level 153 MMOL/L (136-145) H Potassium Level 4.1 MMOL/L (3.5-5.1) Chloride Level 116 MMOL/L (98-107) H Carbon Dioxide Level 35 MMOL/L (21-32) H Anion Gap 2 mmol/L (5-15) L Blood Urea Nitrogen 18 mg/dL (7-18) Creatinine 0.8 MG/DL (0.55-1.30) Estimat Glomerular Filtration Rate mL/min (>60) Glucose Level 120 MG/DL (74-106) H Calcium Level 8.5 MG/DL (8.5-10.1) Microbiology Date/Time Source Procedure Growth Status 11/26/18 20:00 Sputum Expectorated Gram Stain - Final Resulted 11/26/18 20:00 Sputum Expectorated Sputum Culture Pending Resulted Objective HEAD AND NECK: Tracheostomy intact. LUNGS: Coarse rhonchi.Decreased breath sounds CARDIOVASCULAR: Irregular irregular S1 and S2 with no gallop. ABDOMEN: Status post G-tube, distended. EXTREMITIES: Reveal 1+ edema. Luke Prather MD Nov 27, 2018 12:02
--- NOTE | 2018-11-27 12:19 | Surgery Progress Note ---
Surgery Progress Note Subjective Additional Comments afebrile leukocytosis resolved anemia labs noted exam unchanged. in ICU ill appearing Objective Last 24 Hour Vital Signs Date Time Temp Pulse Resp B/P (MAP) Pulse Ox O2 Delivery O2 Flow Rate FiO2 11/27/18 10:56 79 24 96 Mechanical Ventilator 50 80 23 50 11/27/18 09:22 81 22 50 11/27/18 08:00 83 11/27/18 08:00 99.2 83 22 147/73 (97) 93 11/27/18 07:10 70 25 100 Mechanical Ventilator 50 64 26 50 11/27/18 07:00 85 22 146/78 (100) 100 11/27/18 06:00 77 21 142/64 (90) 100 11/27/18 05:14 94 22 50 11/27/18 05:00 92 21 150/63 (92) 100 11/27/18 04:00 84 11/27/18 04:00 86 30 170/74 (106) 96 11/27/18 04:00 50 11/27/18 04:00 Mechanical Ventilator 11/27/18 03:45 92 23 100 Mechanical Ventilator 50 94 22 50 11/27/18 03:00 92 18 165/74 (104) 93 11/27/18 02:00 84 18 156/64 (94) 95 11/27/18 01:20 91 22 50 11/27/18 01:00 77 18 139/61 (87) 95 11/27/18 00:00 50 11/27/18 00:00 80 11/27/18 00:00 Mechanical Ventilator 11/27/18 00:00 99.4 80 23 139/61 (87) 96 11/26/18 23:56 89 21 100 Mechanical Ventilator 50 89 21 50 11/26/18 23:00 90 23 162/76 (104) 100 11/26/18 22:00 89 23 162/76 (104) 100 11/26/18 21:10 94 18 50 11/26/18 21:00 89 22 160/84 (109) 100 11/26/18 20:00 Mechanical Ventilator 11/26/18 20:00 50 11/26/18 20:00 91 11/26/18 20:00 98.8 87 23 158/80 (106) 100 11/26/18 19:30 91 22 100 Mechanical Ventilator 50 91 22 50 11/26/18 18:00 94 11/26/18 18:00 87 20 157/70 (99) 100 11/26/18 17:14 93 23 50 11/26/18 17:00 96 26 165/130 (142) 87 11/26/18 16:30 95 22 150/105 (120) 89 11/26/18 16:00 50 11/26/18 16:00 Mechanical Ventilator 11/26/18 16:00 74 27 177/92 (120) 93 11/26/18 15:30 95 23 164/76 (105) 87 11/26/18 15:00 91 22 141/112 (122) 89 11/26/18 14:45 87 22 94 Mechanical Ventilator 50 81 23 50 11/26/18 14:30 84 20 156/65 (95) 98 11/26/18 14:00 90 22 161/65 (97) 98 11/26/18 13:30 98 24 172/76 (108) 96 11/26/18 13:00 95 10 170/88 (115) 99 11/26/18 12:53 75 11/26/18 12:51 97 29 50 11/26/18 12:30 85 13 160/75 (103) 92 I&O Intake and Output 11/26/18 11/27/18 19:00 07:00 Intake Total 1139.86 ml 1222.5 ml Output Total 400 ml 252 ml Balance 739.86 ml 970.5 ml Intake Free Water 120 ml IV Total 534.86 ml 442.5 ml Tube Feeding 605 ml 660 ml Output Urine Total 400 ml 252 ml # Voids 8 # Bowel Movements 3 Dressing: saturated, other Wound: other Drains: other Cardiovascular: RSR Respiratory: decreased breath sounds Abdomen: soft, non-distended Extremities: no tenderness, no cyanosis, other Laboratory Tests Test 11/27/18 05:15 White Blood Count 9.9 K/UL (4.8-10.8) Red Blood Count 3.01 M/UL (4.70-6.10) L Hemoglobin 8.2 G/DL (14.2-18.0) L Hematocrit 26.0 % (42.0-52.0) L Mean Corpuscular Volume 87 FL (80-99) Mean Corpuscular Hemoglobin 27.2 PG (27.0-31.0) Mean Corpuscular Hemoglobin Concent 31.4 G/DL (32.0-36.0) L Red Cell Distribution Width 16.4 % (11.6-14.8) H Platelet Count 212 K/UL (150-450) Mean Platelet Volume 6.3 FL (6.5-10.1) L Neutrophils (%) (Auto) 74.6 % (45.0-75.0) Lymphocytes (%) (Auto) 13.5 % (20.0-45.0) L Monocytes (%) (Auto) 9.5 % (1.0-10.0) Eosinophils (%) (Auto) 1.7 % (0.0-3.0) Basophils (%) (Auto) 0.7 % (0.0-2.0) Sodium Level 153 MMOL/L (136-145) H Potassium Level 4.1 MMOL/L (3.5-5.1) Chloride Level 116 MMOL/L (98-107) H Carbon Dioxide Level 35 MMOL/L (21-32) H Anion Gap 2 mmol/L (5-15) L Blood Urea Nitrogen 18 mg/dL (7-18) Creatinine 0.8 MG/DL (0.55-1.30) Estimat Glomerular Filtration Rate mL/min (>60) Glucose Level 120 MG/DL (74-106) H Calcium Level 8.5 MG/DL (8.5-10.1) Plan Problems: (1) Severe sepsis Assessment & Plan: leukocytosis, anemia, lactic acidosis, fevers IV Abx imaging noted and reviewed US with no stones or dilated ducts elevated lft's likely due to liver disease exam as below cont abx trend labs leave crabtree for a few weeks thank you will follow with recs Findings: Exam is somewhat limited, due to gastrostomy tube and overlying bowel gas limiting visualization of the abdominal aorta Gallbladder is unremarkable, without stones, wall thickening, nor pericholecystic fluid. Sonographic Carl's sign is negative. Common bile duct measures 4 mm in diameter. No intrahepatic biliary ductal dilatation. Liver demonstrates normal echogenicity, no focal abnormality. It demonstrates slight surface nodularity. It is enlarged. There is a 1 cm cyst which appears adjacent to the gallbladder wall. This is probably a small exophytic hepatic cyst. Portal vein and hepatic veins are patent. Pancreas is unremarkable. Spleen is unremarkable. Left kidney measures 9.2 cm in length. Right kidney measures 10.2 cm length. Both kidneys demonstrate normal echogenicity. There is no hydronephrosis. Both kidneys demonstrate cysts. . Abdominal aorta is partially obscured by bowel gas, visualized portions are non-aneurysmal . Impression: Negative for gallstones or dilated bile ducts Hepatic surface nodularity, may indicate early cirrhotic changes Hepatomegaly Incidental finding bilateral renal cysts (2) Malnutrition Assessment & Plan: DAILY ESTIMATED NEEDS: Needs based on Critical care, sepsis 71.8 kg 22-30 kcals/kg 4715-0888 total kcals 1.2-2 g protein/kg 86- 144 g total protein 25-30 mL/kg 1795- 2154 total fluid mLs NUTRITION DIAGNOSIS: * Swallowing difficulty R/T respiratory status and dysphagia as evidenced by pt is vent dep, on TF. * Altered nutrition related lab values r/t sepsis, clinical status, h/o Diabetes as evidenced by critically elev WBC (47.2), low Hgb (6.6), elev BNP, low BP (96/41), BG 191, POC 179. CURRENT TF: Jevity 1.2 @ 70mL/hr x 20hr - NOW NPO ENTERAL NUTRITION RECOMMENDATIONS: Vital 1.2 @55mL/hr x24 hrs to provide 1320mL, 1584kcal, 99g pro, 1071mL free H2O * As medically appropriate to feed, rec TF change to VITAL 1.2 for critical care. * Start Vital 1,2, @25mL, advance as tolerated 10ml/hr q4-6 hrs to goal * HOB over 30 degrees/ water flush per MD --- Low Hgb (6.6), NPO per GI-> rec trophic feeds when appropriate if pt remains hypotensive. ADDITIONAL RECOMMENDATIONS: * Per SNF: HT 68 inches WT 158 lbs + Daily calibrated bed scale wts * Change TF to Vital 1.2, as medically able to feed * Monitor lytes (replete as needed) * F/up w/ WC eval . (3) Sacral decubitus ulcer Assessment & Plan: Pt presented on admission with contractures and multiple pressure injuries. Partially opened DTPI L buttocks. Base of wound moist - viable with surrounding dark and fluctuant borders.(L)1.2cm x (W)1cm. Small amt of sanguineous exudate noted. No odor noted. Hyperpigmentation noted to sacrum. Historical scar from previous wound noted to L trochanter. Penile head retracted within foreskin and small wound noted within folds of foreskin. Wound is moist and viable. No odor or exudate noted. No erythema noted periwound. Resolving pressure injury plantar R heel. Base of wound 50% epithelialized, 50% moist and viable.(L)5.5cm x (W)6.5cm. Resolving pressure injury lateral L heel. Base of wound is moist and viable with surrounding hyperpigmentation.(L)0.6cm x (W)0.5cm. Scattered loose, dry brown skin noted to medial and posterior L heel. Tx.Plan: Apply Moisture Barrier Paste to L buttocks and sacrum. Cover with Optifoam drsg. Change every 3 days and prn. Cleanse head of penis with soap and water. Apply Bacitracin oint Twice Daily. Apply Betadine to R and L heel wounds. Cover each heel with Optifoam drsg. Daily and prn. APM/ABDELRAHMAN Mattress overlay. Reposition at least every 2hours and prn. Off-load heels with pillow. Don Carvalho Nov 27, 2018 12:19
--- NOTE | 2018-11-27 12:38 | Infectious Diseases Prog Note ---
Assessment/Plan Assessment/Plan IMPRESSION: Sepsis, Pyuria/ UTI treated Pneumonia treated BPH, ventilator-dependent respiratory failure Leukemoid reaction,resolved Acute renal failure, improving Diabetes mellitus, anemia, hypoxemic respiratory failure, dementia. 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 Will f/u Sputum culture Family refused pacemaker placement Por prognosis Subjective ROS Limited/Unobtainable: Yes Constitutional: Denies: fever Allergies: Coded Allergies: TERAZOSIN (Verified Allergy, Unknown, 10/27/17) Objective Vital Signs Last 24 Hour Vital Signs Date Time Temp Pulse Resp B/P (MAP) Pulse Ox O2 Delivery O2 Flow Rate FiO2 11/27/18 12:00 76 11/27/18 12:00 98.8 71 23 137/58 (84) 95 11/27/18 12:00 50 11/27/18 11:00 79 20 118/60 (79) 100 11/27/18 10:56 79 24 96 Mechanical Ventilator 50 80 23 50 11/27/18 10:00 82 17 130/59 (82) 95 11/27/18 09:22 81 22 50 11/27/18 09:00 81 22 137/62 (87) 95 11/27/18 09:00 50 11/27/18 08:00 83 11/27/18 08:00 Mechanical Ventilator 11/27/18 08:00 99.2 83 22 147/73 (97) 93 11/27/18 07:10 70 25 100 Mechanical Ventilator 50 64 26 50 11/27/18 07:00 85 22 146/78 (100) 100 11/27/18 06:00 77 21 142/64 (90) 100 11/27/18 05:14 94 22 50 11/27/18 05:00 92 21 150/63 (92) 100 11/27/18 04:00 84 11/27/18 04:00 86 30 170/74 (106) 96 11/27/18 04:00 50 11/27/18 04:00 Mechanical Ventilator 11/27/18 03:45 92 23 100 Mechanical Ventilator 50 94 22 50 11/27/18 03:00 92 18 165/74 (104) 93 11/27/18 02:00 84 18 156/64 (94) 95 10/22/19 01:20 91 22 50 11/27/18 01:00 77 18 139/61 (87) 95 11/27/18 00:00 50 11/27/18 00:00 80 11/27/18 00:00 Mechanical Ventilator 11/27/18 00:00 99.4 80 23 139/61 (87) 96 11/26/18 23:56 89 21 100 Mechanical Ventilator 50 89 21 50 11/26/18 23:00 90 23 162/76 (104) 100 11/26/18 22:00 89 23 162/76 (104) 100 11/26/18 21:10 94 18 50 11/26/18 21:00 89 22 160/84 (109) 100 11/26/18 20:00 Mechanical Ventilator 11/26/18 20:00 50 11/26/18 20:00 91 11/26/18 20:00 98.8 87 23 158/80 (106) 100 11/26/18 19:30 91 22 100 Mechanical Ventilator 50 91 22 50 11/26/18 18:00 94 11/26/18 18:00 87 20 157/70 (99) 100 11/26/18 17:14 93 23 50 11/26/18 17:00 96 26 165/130 (142) 87 11/26/18 16:30 95 22 150/105 (120) 89 11/26/18 16:00 50 11/26/18 16:00 Mechanical Ventilator 11/26/18 16:00 74 27 177/92 (120) 93 11/26/18 15:30 95 23 164/76 (105) 87 11/26/18 15:00 91 22 141/112 (122) 89 11/26/18 14:45 87 22 94 Mechanical Ventilator 50 81 23 50 11/26/18 14:30 84 20 156/65 (95) 98 11/26/18 14:00 90 22 161/65 (97) 98 11/26/18 13:30 98 24 172/76 (108) 96 11/26/18 13:00 95 10 170/88 (115) 99 11/26/18 12:53 75 11/26/18 12:51 97 29 50 Height (Feet): 5 Height (Inches): 5.00 Weight (Pounds): 170 HEENT: status post trach Respiratory/Chest: rhonchi - bilaterally, other - on ventilator Cardiovascular: normal rate, other - PICC line Abdomen: distended, other - GT feeding Genitourinary: other - Turner catheter, hematuria Extremities: other - edema of arms Neurologic/Psychiatric: aphasia Microbiology Date/Time Source Procedure Growth Status 11/26/18 20:00 Sputum Expectorated Gram Stain - Final Resulted 11/26/18 20:00 Sputum Expectorated Sputum Culture Pending Resulted Laboratory Tests Test 11/27/18 05:15 White Blood Count 9.9 K/UL (4.8-10.8) Red Blood Count 3.01 M/UL (4.70-6.10) L Hemoglobin 8.2 G/DL (14.2-18.0) L Hematocrit 26.0 % (42.0-52.0) L Mean Corpuscular Volume 87 FL (80-99) Mean Corpuscular Hemoglobin 27.2 PG (27.0-31.0) Mean Corpuscular Hemoglobin Concent 31.4 G/DL (32.0-36.0) L Red Cell Distribution Width 16.4 % (11.6-14.8) H Platelet Count 212 K/UL (150-450) Mean Platelet Volume 6.3 FL (6.5-10.1) L Neutrophils (%) (Auto) 74.6 % (45.0-75.0) Lymphocytes (%) (Auto) 13.5 % (20.0-45.0) L Monocytes (%) (Auto) 9.5 % (1.0-10.0) Eosinophils (%) (Auto) 1.7 % (0.0-3.0) Basophils (%) (Auto) 0.7 % (0.0-2.0) Sodium Level 153 MMOL/L (136-145) H Potassium Level 4.1 MMOL/L (3.5-5.1) Chloride Level 116 MMOL/L (98-107) H Carbon Dioxide Level 35 MMOL/L (21-32) H Anion Gap 2 mmol/L (5-15) L Blood Urea Nitrogen 18 mg/dL (7-18) Creatinine 0.8 MG/DL (0.55-1.30) Estimat Glomerular Filtration Rate mL/min (>60) Glucose Level 120 MG/DL (74-106) H Calcium Level 8.5 MG/DL (8.5-10.1) Current Medications Medications (Trade) Dose Ordered Sig/Ruthie Route PRN Reason Start Time Stop Time Status Last Admin Dose Admin Acetaminophen (Tylenol) 650 mg Q6H PRN GT Mild Pain/Temp > 100.5 11/23/18 09:39 12/15/18 09:38 11/25/18 16:22 Albuterol/ Ipratropium (Albuterol/ Ipratropium) 3 ml Q4HRT HHN 11/23/18 11:00 11/28/18 10:59 11/27/18 07:13 Atropine Sulfate (Atropine 0.4mg/ ml) 0.4 mg Q5M PRN IVP HR<30 for 30 seconds 11/26/18 18:00 12/26/18 17:59 Bisacodyl (Dulcolax) 10 mg DAILYPRN PRN RECTAL Constipation 11/23/18 09:39 12/18/18 09:38 Chlorhexidine Gluconate (Rachael-Hex 2%) 1 applic DAILY@2000 TOPIC 11/23/18 20:00 12/15/18 19:59 11/26/18 19:55 Dextrose 1,000 ml @ 30 mls/hr Q24H IV 11/23/18 10:45 12/23/18 10:44 11/27/18 09:07 Dextrose (Dextrose 50%) 25 ml Q30M PRN IV Hypoglycemia 11/23/18 09:39 12/15/18 09:38 Dextrose (Dextrose 50%) 50 ml Q30M PRN IV Hypoglycemia 11/23/18 09:45 12/15/18 05:44 Hydromorphone HCl (Dilaudid) 0.5 mg Q4H PRN IVP For Pain 11/23/18 09:40 11/29/18 09:39 Insulin Aspart (NovoLOG) BEFORE MEALS AND HS SUBQ 11/23/18 11:30 12/15/18 06:29 11/27/18 12:17 Lorazepam (Ativan 2mg/ml 1ml) 0.5 mg Q2H PRN IV For Anxiety 11/23/18 10:45 11/30/18 10:44 11/27/18 09:23 Olanzapine (ZyPREXA Zydis) 7.5 mg DAILY GT 11/24/18 09:00 12/15/18 08:59 11/27/18 09:06 Pantoprazole (Protonix) 40 mg EVERY 12 HOURS IVP 11/23/18 21:00 12/15/18 08:59 11/27/18 09:06 Piperacillin Sod/ Tazobactam Sod 3.375 gm/Sodium Chloride 110 ml @ 27.5 mls/hr Q8H IVPB 11/23/18 12:00 12/02/18 11:59 11/27/18 12:10 Quetiapine Fumarate (SEROquel) 50 mg DAILY GT 11/24/18 09:00 12/15/18 08:59 11/27/18 09:05 Tamsulosin HCl (Flomax) 0.4 mg BEDTIME ORAL 11/23/18 21:00 12/15/18 20:59 11/26/18 21:08 Anam Cruz MD Nov 27, 2018 12:38
--- NOTE | 2018-11-27 12:58 | Nephrology Progress Note ---
Assessment/Plan Problem List: (1) Septic shock Assessment: WBCs rising (2) Ventilator dependence (3) Renal failure (ARF), acute on chronic (4) Prostate enlargement (5) Anemia Assessment Septic Shock Acute renal failure CKD underlying BPH Sever Anemia Chronic trach-Vent DM HypoAlbuminemia HyperNatremia Dementia Troponin elevation Plan start D5W for hyperNatremia now in ICU for episode of bradycardia and asystole family agreed to DNR labs reviewed- mag IV as needed change IV to D5 avoid Nephrotoxics transfuse as needed crabtree monitor urine out put and renal parameters per orders Subjective ROS Limited/Unobtainable: Yes Objective Objective Last 24 Hour Vital Signs Date Time Temp Pulse Resp B/P (MAP) Pulse Ox O2 Delivery O2 Flow Rate FiO2 11/27/18 12:00 76 11/27/18 12:00 98.8 71 23 137/58 (84) 95 11/27/18 12:00 50 11/27/18 11:00 79 20 118/60 (79) 100 11/27/18 10:56 79 24 96 Mechanical Ventilator 50 80 23 50 11/27/18 10:00 82 17 130/59 (82) 95 11/27/18 09:22 81 22 50 11/27/18 09:00 81 22 137/62 (87) 95 11/27/18 09:00 50 11/27/18 08:00 83 11/27/18 08:00 Mechanical Ventilator 11/27/18 08:00 99.2 83 22 147/73 (97) 93 11/27/18 07:10 70 25 100 Mechanical Ventilator 50 64 26 50 11/27/18 07:00 85 22 146/78 (100) 100 11/27/18 06:00 77 21 142/64 (90) 100 11/27/18 05:14 94 22 50 11/27/18 05:00 92 21 150/63 (92) 100 11/27/18 04:00 84 11/27/18 04:00 86 30 170/74 (106) 96 11/27/18 04:00 50 11/27/18 04:00 Mechanical Ventilator 11/27/18 03:45 92 23 100 Mechanical Ventilator 50 94 22 50 11/27/18 03:00 92 18 165/74 (104) 93 11/27/18 02:00 84 18 156/64 (94) 95 11/27/18 01:20 91 22 50 11/27/18 01:00 77 18 139/61 (87) 95 11/27/18 00:00 50 11/27/18 00:00 80 11/27/18 00:00 Mechanical Ventilator 11/27/18 00:00 99.4 80 23 139/61 (87) 96 11/26/18 23:56 89 21 100 Mechanical Ventilator 50 89 21 50 11/26/18 23:00 90 23 162/76 (104) 100 11/26/18 22:00 89 23 162/76 (104) 100 11/26/18 21:10 94 18 50 11/26/18 21:00 89 22 160/84 (109) 100 11/26/18 20:00 Mechanical Ventilator 11/26/18 20:00 50 11/26/18 20:00 91 11/26/18 20:00 98.8 87 23 158/80 (106) 100 11/26/18 19:30 91 22 100 Mechanical Ventilator 50 91 22 50 11/26/18 18:00 94 11/26/18 18:00 87 20 157/70 (99) 100 11/26/18 17:14 93 23 50 11/26/18 17:00 96 26 165/130 (142) 87 11/26/18 16:30 95 22 150/105 (120) 89 11/26/18 16:00 50 11/26/18 16:00 Mechanical Ventilator 11/26/18 16:00 74 27 177/92 (120) 93 11/26/18 15:30 95 23 164/76 (105) 87 11/26/18 15:00 91 22 141/112 (122) 89 11/26/18 14:45 87 22 94 Mechanical Ventilator 50 81 23 50 11/26/18 14:30 84 20 156/65 (95) 98 11/26/18 14:00 90 22 161/65 (97) 98 11/26/18 13:30 98 24 172/76 (108) 96 11/26/18 13:00 95 10 170/88 (115) 99 Intake and Output 11/26/18 11/27/18 19:00 07:00 Intake Total 1139.86 ml 1222.5 ml Output Total 400 ml 252 ml Balance 739.86 ml 970.5 ml Intake Free Water 120 ml IV Total 534.86 ml 442.5 ml Tube Feeding 605 ml 660 ml Output Urine Total 400 ml 252 ml # Voids 8 # Bowel Movements 3 Laboratory Tests 11/27/18 05:15: White Blood Count 9.9, Red Blood Count 3.01L, Hemoglobin 8.2L, Hematocrit 26.0L , Mean Corpuscular Volume 87, Mean Corpuscular Hemoglobin 27.2, Mean Corpuscular Hemoglobin Concent 31.4L, Red Cell Distribution Width 16.4H, Platelet Count 212, Mean Platelet Volume 6.3L, Neutrophils (%) (Auto) 74.6, Lymphocytes (%) (Auto) 13.5L, Monocytes (%) (Auto) 9.5, Eosinophils (%) (Auto) 1.7, Basophils (%) (Auto) 0.7, Sodium Level 153H, Potassium Level 4.1, Chloride Level 116H, Carbon Dioxide Level 35H, Anion Gap 2L, Blood Urea Nitrogen 18, Creatinine 0.8, Estimat Glomerular Filtration Rate , Glucose Level 120H, Calcium Level 8.5 Height (Feet): 5 Height (Inches): 5.00 Weight (Pounds): 170 General Appearance: no apparent distress, lethargic EENT: other - vented Cardiovascular: arrhythmia Respiratory/Chest: decreased breath sounds Abdomen: distended Objective no change Randolph Fernandes MD Nov 27, 2018 12:57
--- NOTE | 2018-11-27 13:22 | GI Progress Note ---
Assessment/Plan Problems: (1) PEG (percutaneous endoscopic gastrostomy) status ICD Codes: Z93.1 - Gastrostomy status SNOMED: 624397278, 359706612 (2) GIB (gastrointestinal bleeding) ICD Codes: K92.2 - Gastrointestinal hemorrhage, unspecified SNOMED: 40412239 (3) Anemia ICD Codes: D64.9 - Anemia, unspecified SNOMED: 173748294 (4) Constipation ICD Codes: K59.00 - Constipation, unspecified SNOMED: 49956920 (5) Gastrostomy tube dependent ICD Codes: Z93.1 - Gastrostomy status SNOMED: 163761506, 768947428 (6) DM (7) Encephalopathy due to metabolic factor or toxin SNOMED: 831999687 Status: unchanged Status Narrative Discussed with Dr. Coronel. Assessment/Plan OB stool positive x2 hepatitis panel negative s/p EGD SUMMARY OF FINDINGS: Gastritis, otherwise normal upper endoscopic examination. RECOMMENDATIONS: Resume G-tube feeding. Monitor hemoglobin and hematocrit. Transfuse as needed. Monitor for stool OB. The patient might need colonoscopy if continues to bleed. Hold iron supplementation given elevated ferritin levels abx fu labs The patient was seen and examined at bedside and all new and available data was reviewed in the patients chart. I agree with the above findings, impression and plan. (Patient seen earlier today. Signature stamp does not reflect patient encounter time.). - Juan Coronel MD Subjective Subjective limited Objective Last 24 Hour Vital Signs Date Time Temp Pulse Resp B/P (MAP) Pulse Ox O2 Delivery O2 Flow Rate FiO2 11/27/18 13:00 82 25 146/69 (94) 96 11/27/18 12:00 Mechanical Ventilator 11/27/18 12:00 76 11/27/18 12:00 98.8 71 23 137/58 (84) 95 11/27/18 12:00 50 11/27/18 11:00 79 20 118/60 (79) 100 11/27/18 10:56 79 24 96 Mechanical Ventilator 50 80 23 50 11/27/18 10:00 82 17 130/59 (82) 95 11/27/18 09:22 81 22 50 11/27/18 09:00 81 22 137/62 (87) 95 11/27/18 09:00 50 11/27/18 08:00 83 11/27/18 08:00 Mechanical Ventilator 11/27/18 08:00 99.2 83 22 147/73 (97) 93 11/27/18 07:10 70 25 100 Mechanical Ventilator 50 64 26 50 11/27/18 07:00 85 22 146/78 (100) 100 11/27/18 06:00 77 21 142/64 (90) 100 11/27/18 05:14 94 22 50 11/27/18 05:00 92 21 150/63 (92) 100 11/27/18 04:00 84 11/27/18 04:00 86 30 170/74 (106) 96 11/27/18 04:00 50 11/27/18 04:00 Mechanical Ventilator 11/27/18 03:45 92 23 100 Mechanical Ventilator 50 94 22 50 11/27/18 03:00 92 18 165/74 (104) 93 11/27/18 02:00 84 18 156/64 (94) 95 11/27/18 01:20 91 22 50 11/27/18 01:00 77 18 139/61 (87) 95 11/27/18 00:00 50 11/27/18 00:00 80 11/27/18 00:00 Mechanical Ventilator 11/27/18 00:00 99.4 80 23 139/61 (87) 96 11/26/18 23:56 89 21 100 Mechanical Ventilator 50 89 21 50 11/26/18 23:00 90 23 162/76 (104) 100 11/26/18 22:00 89 23 162/76 (104) 100 11/26/18 21:10 94 18 50 11/26/18 21:00 89 22 160/84 (109) 100 11/26/18 20:00 Mechanical Ventilator 11/26/18 20:00 50 11/26/18 20:00 91 11/26/18 20:00 98.8 87 23 158/80 (106) 100 11/26/18 19:30 91 22 100 Mechanical Ventilator 50 91 22 50 11/26/18 18:00 94 11/26/18 18:00 87 20 157/70 (99) 100 11/26/18 17:14 93 23 50 11/26/18 17:00 96 26 165/130 (142) 87 11/26/18 16:30 95 22 150/105 (120) 89 11/26/18 16:00 50 11/26/18 16:00 Mechanical Ventilator 11/26/18 16:00 74 27 177/92 (120) 93 11/26/18 15:30 95 23 164/76 (105) 87 11/26/18 15:00 91 22 141/112 (122) 89 11/26/18 14:45 87 22 94 Mechanical Ventilator 50 81 23 50 11/26/18 14:30 84 20 156/65 (95) 98 11/26/18 14:00 90 22 161/65 (97) 98 11/26/18 13:30 98 24 172/76 (108) 96 Intake and Output 11/26/18 11/27/18 19:00 07:00 Intake Total 1139.86 ml 1222.5 ml Output Total 400 ml 252 ml Balance 739.86 ml 970.5 ml Intake Free Water 120 ml IV Total 534.86 ml 442.5 ml Tube Feeding 605 ml 660 ml Output Urine Total 400 ml 252 ml # Voids 8 # Bowel Movements 3 Laboratory Tests Test 11/27/18 05:15 White Blood Count 9.9 K/UL (4.8-10.8) Red Blood Count 3.01 M/UL (4.70-6.10) L Hemoglobin 8.2 G/DL (14.2-18.0) L Hematocrit 26.0 % (42.0-52.0) L Mean Corpuscular Volume 87 FL (80-99) Mean Corpuscular Hemoglobin 27.2 PG (27.0-31.0) Mean Corpuscular Hemoglobin Concent 31.4 G/DL (32.0-36.0) L Red Cell Distribution Width 16.4 % (11.6-14.8) H Platelet Count 212 K/UL (150-450) Mean Platelet Volume 6.3 FL (6.5-10.1) L Neutrophils (%) (Auto) 74.6 % (45.0-75.0) Lymphocytes (%) (Auto) 13.5 % (20.0-45.0) L Monocytes (%) (Auto) 9.5 % (1.0-10.0) Eosinophils (%) (Auto) 1.7 % (0.0-3.0) Basophils (%) (Auto) 0.7 % (0.0-2.0) Sodium Level 153 MMOL/L (136-145) H Potassium Level 4.1 MMOL/L (3.5-5.1) Chloride Level 116 MMOL/L (98-107) H Carbon Dioxide Level 35 MMOL/L (21-32) H Anion Gap 2 mmol/L (5-15) L Blood Urea Nitrogen 18 mg/dL (7-18) Creatinine 0.8 MG/DL (0.55-1.30) Estimat Glomerular Filtration Rate mL/min (>60) Glucose Level 120 MG/DL (74-106) H Calcium Level 8.5 MG/DL (8.5-10.1) Microbiology Date/Time Source Procedure Growth Status 11/26/18 20:00 Sputum Expectorated Gram Stain - Final Resulted 11/26/18 20:00 Sputum Expectorated Sputum Culture Pending Resulted Height (Feet): 5 Height (Inches): 5.00 Weight (Pounds): 170 General Appearance: no apparent distress Cardiovascular: normal rate Respiratory/Chest: no respiratory distress Abdominal Exam: normal bowel sounds, non tender, soft, GT site Extremities: non-tender Kishan Hopkins [employer] Nov 27, 2018 13:22
--- NOTE | 2018-11-27 16:32 | General Progress Note ---
Assessment/Plan Problem List: (1) Hypernatremia ICD Codes: E87.0 - Hyperosmolality and hypernatremia SNOMED: 01489607 (2) Rhabdomyolysis ICD Codes: M62.82 - Rhabdomyolysis SNOMED: 260846194 (3) Sacral decubitus ulcer ICD Codes: L89.159 - Pressure ulcer of sacral region, unspecified stage SNOMED: 805213252 (4) Severe sepsis ICD Codes: A41.9 - Sepsis, unspecified organism; R65.20 - Severe sepsis without septic shock SNOMED: 18469243 (5) Septic shock ICD Codes: A41.9 - Sepsis, unspecified organism; R65.21 - Severe sepsis with septic shock SNOMED: 37579869 (6) DM (7) Anemia ICD Codes: D64.9 - Anemia, unspecified SNOMED: 197496759 (8) Prostate enlargement ICD Codes: N40.0 - Benign prostatic hyperplasia without lower urinary tract symptoms SNOMED: 301973493 (9) Chronic renal disease ICD Codes: N18.9 - Chronic kidney disease, unspecified SNOMED: 430543935 (10) Ventilator dependence ICD Codes: Z99.11 - Dependence on respirator [ventilator] status SNOMED: 082253142 (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 - Gastrostomy status SNOMED: 172737305, 910238991 (12) Malnutrition ICD Codes: E46 - Unspecified protein-calorie malnutrition SNOMED: 97833902 Status: unchanged Assessment/Plan: pacemaker decision per dr reece i agree w dnr bradycardia junctional rhythem fluid management per cardiology and renal hypernatremia resp insuff trach and peg reviewed chart and labs bph uti Subjective ROS Limited/Unobtainable: Yes Allergies: Coded Allergies: TERAZOSIN (Verified Allergy, Unknown, 10/27/17) Objective Last 24 Hour Vital Signs Date Time Temp Pulse Resp B/P (MAP) Pulse Ox O2 Delivery O2 Flow Rate FiO2 11/27/18 16:00 84 11/27/18 15:17 78 24 113/62 (79) 94 11/27/18 15:00 86 24 97 Mechanical Ventilator 50 88 24 50 11/27/18 15:00 78 24 113/62 (79) 94 11/27/18 14:00 87 23 158/73 (101) 93 11/27/18 13:12 84 24 50 11/27/18 13:00 82 25 146/69 (94) 96 11/27/18 12:00 Mechanical Ventilator 11/27/18 12:00 76 11/27/18 12:00 98.8 71 23 137/58 (84) 95 11/27/18 12:00 50 11/27/18 11:00 79 20 118/60 (79) 100 11/27/18 10:56 79 24 96 Mechanical Ventilator 50 80 23 50 11/27/18 10:00 82 17 130/59 (82) 95 11/27/18 09:22 81 22 50 11/27/18 09:00 81 22 137/62 (87) 95 11/27/18 09:00 50 11/27/18 08:00 83 11/27/18 08:00 Mechanical Ventilator 11/27/18 08:00 99.2 83 22 147/73 (97) 93 11/27/18 07:10 70 25 100 Mechanical Ventilator 50 64 26 50 11/27/18 07:00 85 22 146/78 (100) 100 11/27/18 06:00 77 21 142/64 (90) 100 11/27/18 05:14 94 22 50 11/27/18 05:00 92 21 150/63 (92) 100 11/27/18 04:00 84 11/27/18 04:00 86 30 170/74 (106) 96 11/27/18 04:00 50 11/27/18 04:00 Mechanical Ventilator 11/27/18 03:45 92 23 100 Mechanical Ventilator 50 94 22 50 11/27/18 03:00 92 18 165/74 (104) 93 11/27/18 02:00 84 18 156/64 (94) 95 11/27/18 01:20 91 22 50 11/27/18 01:00 77 18 139/61 (87) 95 11/27/18 00:00 50 11/27/18 00:00 80 11/27/18 00:00 Mechanical Ventilator 11/27/18 00:00 99.4 80 23 139/61 (87) 96 11/26/18 23:56 89 21 100 Mechanical Ventilator 50 89 21 50 11/26/18 23:00 90 23 162/76 (104) 100 11/26/18 22:00 89 23 162/76 (104) 100 11/26/18 21:10 94 18 50 11/26/18 21:00 89 22 160/84 (109) 100 11/26/18 20:00 Mechanical Ventilator 11/26/18 20:00 50 11/26/18 20:00 91 11/26/18 20:00 98.8 87 23 158/80 (106) 100 11/26/18 19:30 91 22 100 Mechanical Ventilator 50 91 22 50 11/26/18 18:00 94 11/26/18 18:00 87 20 157/70 (99) 100 11/26/18 17:14 93 23 50 11/26/18 17:00 96 26 165/130 (142) 87 Intake and Output 11/26/18 11/27/18 19:00 07:00 Intake Total 1139.86 ml 1250.0 ml Output Total 400 ml 252 ml Balance 739.86 ml 998.0 ml Intake Free Water 120 ml IV Total 534.86 ml 470.0 ml Tube Feeding 605 ml 660 ml Output Urine Total 400 ml 252 ml # Voids 8 # Bowel Movements 3 Laboratory Tests 11/27/18 05:15: White Blood Count 9.9, Red Blood Count 3.01L, Hemoglobin 8.2L, Hematocrit 26.0L , Mean Corpuscular Volume 87, Mean Corpuscular Hemoglobin 27.2, Mean Corpuscular Hemoglobin Concent 31.4L, Red Cell Distribution Width 16.4H, Platelet Count 212, Mean Platelet Volume 6.3L, Neutrophils (%) (Auto) 74.6, Lymphocytes (%) (Auto) 13.5L, Monocytes (%) (Auto) 9.5, Eosinophils (%) (Auto) 1.7, Basophils (%) (Auto) 0.7, Sodium Level 153H, Potassium Level 4.1, Chloride Level 116H, Carbon Dioxide Level 35H, Anion Gap 2L, Blood Urea Nitrogen 18, Creatinine 0.8, Estimat Glomerular Filtration Rate , Glucose Level 120H, Calcium Level 8.5 Height (Feet): 5 Height (Inches): 5.00 Weight (Pounds): 170 Respiratory/Chest: lungs clear Abdomen: soft Trish Matias MD Nov 27, 2018 16:32
[2018-11-27] MEDS: Dyna-Hex 2% Top Sol 2oz TOPIC SCH (20:12)
[2018-11-27] MEDS: Tamsulosin 0.4mg cap ORAL SCH (21:17)
[2018-11-28] VITALS (10 sets, daily range): BP systolic 125–164; BP diastolic 50–92
[2018-11-28] MEDS: LORazepam Inj 2mg/ml 1ml IV PRN (00:29)
[2018-11-28] MEDS: Albuterol/Ipratropium 3ml neb HHN SCH (02:18)
[2018-11-28] MEDS: NovoLOG Insulin Flexpen SUBQ SCH ×5 (05:30→20:38)
[2018-11-28 05:31] LABS: BASOPHILS % (AUTO) 1.2 % (0.0-2.0); EOSINOPHILS % (AUTO) 1.8 % (0.0-3.0); HEMATOCRIT 26.3 % (42.0-52.0); HEMOGLOBIN 8.2 G/DL (14.2-18.0); LYMPHOCYTES % (AUTO) 14.5 % (20.0-45.0); MEAN CORPUSCULAR VOLUME 86 FL (80-99); MONOCYTES % (AUTO) 10.7 % (1.0-10.0); NEUTROPHILS % (AUTO) 71.7 % (45.0-75.0); PLATELET COUNT 204 K/UL (150-450); RED BLOOD COUNT 3.05 M/UL (4.70-6.10); RED CELL DISTRIBUTION WIDTH 16.1 % (11.6-14.8); WHITE BLOOD COUNT 11.4 K/UL (4.8-10.8)
[2018-11-28 05:56] LABS: ALANINE AMINOTRANSFERASE 54 U/L (12-78); ALBUMIN 1.7 G/DL (3.4-5.0); ALBUMIN/GLOBULIN RATIO 0.4 (1.0-2.7); ALKALINE PHOSPHATASE 105 U/L (46-116); ANION GAP 0 mmol/L (5-15); ASPARTATE AMINO TRANSFERASE 25 U/L (15-37); BILIRUBIN,TOTAL 0.3 MG/DL (0.2-1.0); BLOOD UREA NITROGEN 18 mg/dL (7-18); CALCIUM 8.3 MG/DL (8.5-10.1); CARBON DIOXIDE 38 MMOL/L (21-32); CHLORIDE 114 MMOL/L (98-107); CREATININE 0.9 MG/DL (0.55-1.30); GAMMA GLUTAMYL TRANSPEPTIDASE 94 U/L (5-85); PHOSPHORUS 3.1 MG/DL (2.5-4.9); POTASSIUM 4.1 MMOL/L (3.5-5.1); SODIUM 152 MMOL/L (136-145)
[2018-11-28] MEDS ORDERED: Atropine Sulfate 0.4mg/ml inj IVP PRN (06:09)
[2018-11-28] MEDS ORDERED: NS 275ml ONE (06:29)
[2018-11-28] MEDS ORDERED: LORazepam Inj 2mg/ml 1ml IV PRN (06:45)
[2018-11-28] MEDS ORDERED: Albuterol/Ipratropium 3ml neb HHN SCH (07:00)
[2018-11-28] MEDS ORDERED: Pantoprazole Inj IVP SCH (09:00)
[2018-11-28] MEDS: ZyPREXA Zydis 5mg tab GT SCH (09:05)
--- NOTE | 2018-11-28 09:09 | Pulmonology Progress Note ---
Assessment/Plan Assessment/Plan Pulmonary Progress Note Assessment/Plan Impression: Patient with ho Pneumonia Ventilator dependant respiratory failure Severe sepsis -history of NSTEMI Anemia Dysphagia s/p G tube Chronic wounds Dementia Organic Brain Syndrome Diabetes Chronic renal disease BPH Penile wound CHF H/o Hypertension severe Protein Calorie Malnutrition Plan antibiotic regimen noted monitor blood pressure HHN Q4 and monitor secretions and suction PRN on full vent support-AC- no wean goals being addressed with family, DNAR multiorgan disease with poor prognosis monitor oxygen needs- and adjust monitor HH DVT and PUD prophylaxis Gtube feeds as able; monitor residuals and reflux aspiration monitor residuals for change will need usp care medications/laboratory data/nursing notes/ICU care reviewed in detail note reviewed and edited care discussed with RN and RT ICU time spent 40 minutes Interval Events: care noted vitals stable poor LOC f ROS Limited/Unobtainable: Yes Condition: critical EKG Rhythm: Sinus Rhythm Residuals: minimal Tube Feeding Tolerated: yes Vital Signs Noted Labs Noted Test 11/26/18 04:50 11/27/18 05:15 White Blood Count 14.6 K/UL (4.8-10.8) 9.9 K/UL (4.8-10.8) Red Blood Count 3.43 M/UL (4.70-6.10) 3.01 M/UL (4.70-6.10) Hemoglobin 9.3 G/DL (14.2-18.0) 8.2 G/DL (14.2-18.0) Hematocrit 29.8 % (42.0-52.0) 26.0 % (42.0-52.0) Mean Corpuscular Volume 87 FL (80-99) 87 FL (80-99) Mean Corpuscular Hemoglobin 27.1 PG (27.0-31.0) 27.2 PG (27.0-31.0) Mean Corpuscular Hemoglobin Concent 31.2 G/DL (32.0-36.0) 31.4 G/DL (32.0-36.0) Red Cell Distribution Width 16.3 % (11.6-14.8) 16.4 % (11.6-14.8) Platelet Count 233 K/UL (150-450) 212 K/UL (150-450) Mean Platelet Volume 6.3 FL (6.5-10.1) 6.3 FL (6.5-10.1) Neutrophils (%) (Auto) 76.2 % (45.0-75.0) 74.6 % (45.0-75.0) Lymphocytes (%) (Auto) 11.8 % (20.0-45.0) 13.5 % (20.0-45.0) Monocytes (%) (Auto) 10.0 % (1.0-10.0) 9.5 % (1.0-10.0) Eosinophils (%) (Auto) 1.3 % (0.0-3.0) 1.7 % (0.0-3.0) Basophils (%) (Auto) 0.7 % (0.0-2.0) 0.7 % (0.0-2.0) Sodium Level 150 MMOL/L (136-145) 153 MMOL/L (136-145) Potassium Level 4.1 MMOL/L (3.5-5.1) 4.1 MMOL/L (3.5-5.1) Chloride Level 114 MMOL/L (98-107) 116 MMOL/L (98-107) Carbon Dioxide Level 33 MMOL/L (21-32) 35 MMOL/L (21-32) Anion Gap 3 mmol/L (5-15) 2 mmol/L (5-15) Blood Urea Nitrogen 16 mg/dL (7-18) 18 mg/dL (7-18) Creatinine 0.8 MG/DL (0.55-1.30) 0.8 MG/DL (0.55-1.30) Estimat Glomerular Filtration Rate mL/min (>60) mL/min (>60) Glucose Level 121 MG/DL (74-106) 120 MG/DL (74-106) Calcium Level 8.7 MG/DL (8.5-10.1) 8.5 MG/DL (8.5-10.1) Total Bilirubin 0.4 MG/DL (0.2-1.0) Aspartate Amino Transf (AST/SGOT) 34 U/L (15-37) Alanine Aminotransferase (ALT/SGPT) 85 U/L (12-78) Alkaline Phosphatase 128 U/L (46-116) Total Protein 7.1 G/DL (6.4-8.2) Albumin 2.1 G/DL (3.4-5.0) Globulin 5.0 g/dL Albumin/Globulin Ratio 0.4 (1.0-2.7) Objective: WDWN NAD on vent and poorly responsive reduced breath sounds bilaterally with noted rhonchi [id number] without MRG NABS nontender no HSM; GT; non distended no CC mild edema nonfocal reduced LOC skin noted reviewed and edited Subjective ROS Limited/Unobtainable: No Allergies: Coded Allergies: TERAZOSIN (Verified Allergy, Unknown, 10/27/17) Objective Last 24 Hour Vital Signs Date Time Temp Pulse Resp B/P (MAP) Pulse Ox O2 Delivery O2 Flow Rate FiO2 11/28/18 06:55 80 22 100 Mechanical Ventilator 50 69 20 50 11/28/18 05:08 86 21 50 11/28/18 05:00 99.0 80 22 160/77 (104) 95 11/28/18 04:00 76 11/28/18 04:00 98.9 80 22 161/71 (101) 99 11/28/18 04:00 50 11/28/18 04:00 Mechanical Ventilator 11/28/18 03:00 80 24 139/56 (83) 99 11/28/18 02:19 80 22 100 Mechanical Ventilator 50 80 22 50 11/28/18 02:00 86 23 140/67 (91) 98 11/28/18 01:00 86 28 157/67 (97) 98 11/28/18 00:59 89 22 50 11/28/18 00:00 99.0 87 28 154/81 (105) 98 11/28/18 00:00 Mechanical Ventilator 11/28/18 00:00 50 11/28/18 00:00 80 11/27/18 23:02 72 22 98 Mechanical Ventilator 50 72 22 50 11/27/18 23:00 71 28 141/68 (92) 98 11/27/18 22:00 79 28 131/68 (89) 98 11/27/18 21:00 79 29 170/6 (60) 95 11/27/18 20:48 67 20 50 11/27/18 20:00 79 11/27/18 20:00 50 11/27/18 20:00 98.6 79 29 151/74 (99) 95 11/27/18 20:00 Mechanical Ventilator 11/27/18 19:00 73 24 124/52 (76) 98 11/27/18 18:49 74 21 97 Mechanical Ventilator 50 74 21 50 11/27/18 18:00 85 28 150/77 (101) 95 11/27/18 17:11 96 22 50 11/27/18 17:00 78 27 182/77 (112) 92 11/27/18 16:00 98.7 84 26 182/81 (114) 92 11/27/18 16:00 Mechanical Ventilator 11/27/18 16:00 84 11/27/18 16:00 50 11/27/18 15:00 86 24 97 Mechanical Ventilator 50 88 24 50 11/27/18 15:00 78 24 113/62 (79) 94 11/27/18 14:00 87 23 158/73 (101) 93 11/27/18 13:12 84 24 50 11/27/18 13:00 82 25 146/69 (94) 96 11/27/18 12:00 Mechanical Ventilator 11/27/18 12:00 76 11/27/18 12:00 98.8 71 23 137/58 (84) 95 11/27/18 12:00 50 11/27/18 11:00 79 20 118/60 (79) 100 11/27/18 10:56 79 24 96 Mechanical Ventilator 50 80 23 50 11/27/18 10:00 82 17 130/59 (82) 95 11/27/18 09:22 81 22 50 Intake and Output 11/27/18 11/28/18 19:00 07:00 Intake Total 1475.0 ml 1365 ml Output Total 240 ml 250 ml Balance 1235.0 ml 1115 ml Intake Free Water 220 ml 160 ml IV Total 595.0 ml 600 ml Tube Feeding 660 ml 605 ml Output Urine Total 240 ml 250 ml # Voids 5 # Bowel Movements 5 1 Microbiology Date/Time Source Procedure Growth Status 11/26/18 20:00 Sputum Expectorated Gram Stain - Final Resulted 11/26/18 20:00 Sputum Culture - Preliminary Gram Negative Bacillus 1 Gram Negative Bacillus 2 Resulted Laboratory Tests 11/27/18 18:00: Stool Occult Blood [Pending] 11/28/18 05:00: White Blood Count 11.4H, Red Blood Count 3.05L, Hemoglobin 8.2L, Hematocrit 26.3L, Mean Corpuscular Volume 86, Mean Corpuscular Hemoglobin 26.9L, Mean Corpuscular Hemoglobin Concent 31.2L, Red Cell Distribution Width 16.1H, Platelet Count 204, Mean Platelet Volume 6.6, Neutrophils (%) (Auto) 71.7, Lymphocytes (%) (Auto) 14.5L, Monocytes (%) (Auto) 10.7H, Eosinophils (%) (Auto ) 1.8, Basophils (%) (Auto) 1.2, Sodium Level 152H, Potassium Level 4.1, Chloride Level 114H, Carbon Dioxide Level 38H, Anion Gap 0L, Blood Urea Nitrogen 18, Creatinine 0.9, Estimat Glomerular Filtration Rate , Glucose Level 98, Uric Acid 2.4L, Calcium Level 8.3L, Phosphorus Level 3.1, Magnesium Level 1.8, Total Bilirubin 0.3, Gamma Glutamyl Transpeptidase 94H, Aspartate Amino Transf (AST/SGOT) 25, Alanine Aminotransferase (ALT/SGPT) 54, Alkaline Phosphatase 105, C-Reactive Protein, Quantitative 7.2H, Pro-B-Type Natriuretic Peptide 3695H, Total Protein 5.9L, Albumin 1.7L, Globulin 4.2, Albumin/Globulin Ratio 0.4L Current Medications Medications (Trade) Dose Ordered Sig/Ruthie Route PRN Reason Start Time Stop Time Status Last Admin Dose Admin Acetaminophen (Tylenol) 650 mg Q6H PRN GT Mild Pain/Temp > 100.5 11/28/18 06:05 12/15/18 06:04 Albuterol/ Ipratropium (Albuterol/ Ipratropium) 3 ml Q4HRT HHN 11/28/18 07:00 11/28/18 10:59 11/28/18 07:00 Atropine Sulfate (Atropine 0.4mg/ ml) 0.4 mg Q5M PRN IVP HR<30 for 30 seconds 11/28/18 06:09 12/28/18 06:08 Bisacodyl (Dulcolax) 10 mg DAILYPRN PRN RECTAL Constipation 11/28/18 06:05 12/18/18 06:04 Chlorhexidine Gluconate (Rachael-Hex 2%) 1 applic DAILY@2000 TOPIC 11/28/18 20:00 12/15/18 19:59 Dextrose 1,000 ml @ 75 mls/hr [id number] IV 11/28/18 06:30 11/28/18 15:30 Dextrose (Dextrose 50%) 25 ml Q30M PRN IV Hypoglycemia 11/28/18 06:15 12/15/18 09:38 Dextrose (Dextrose 50%) 50 ml Q30M PRN IV Hypoglycemia 11/28/18 06:15 12/15/18 05:44 Hydromorphone HCl (Dilaudid) 0.5 mg Q4H PRN IVP PAIN 4-10 11/28/18 09:45 11/29/18 09:39 Insulin Aspart (NovoLOG) BEFORE MEALS AND HS SUBQ 11/28/18 06:30 12/15/18 06:29 Lorazepam (Ativan 2mg/ml 1ml) 0.5 mg Q2H PRN IV For Anxiety 11/28/18 06:45 11/30/18 10:44 Olanzapine (ZyPREXA Zydis) 7.5 mg DAILY GT 11/28/18 09:00 12/15/18 08:59 Pantoprazole (Protonix) 40 mg EVERY 12 HOURS IVP 11/28/18 09:00 12/15/18 08:59 Quetiapine Fumarate (SEROquel) 50 mg DAILY GT 11/28/18 09:00 12/15/18 08:59 Tamsulosin HCl (Flomax) 0.4 mg BEDTIME ORAL 11/28/18 21:00 12/15/18 20:59 Booker Baumann MD Nov 28, 2018 09:09
[2018-11-28] MEDS ORDERED: Hydromorphone 0.5mg/0.5ml inj IVP PRN (09:45)
--- NOTE | 2018-11-28 11:09 | Infectious Diseases Prog Note ---
Assessment/Plan Assessment/Plan IMPRESSION: Sepsis, Pyuria/ UTI treated Pneumonia treated BPH, ventilator-dependent respiratory failure Leukemoid reaction,resolved Acute renal failure, improving Diabetes mellitus, anemia, hypoxemic respiratory failure, dementia. 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 Phimosis/ paraphimosis Urethral stricture Asystole, cardiac pause DNR RECOMMENDATION: Observe off antibiotic Will f/u Sputum culture Family refused pacemaker placement Poor prognosis Subjective ROS Limited/Unobtainable: Yes Constitutional: Denies: fever Allergies: Coded Allergies: TERAZOSIN (Verified Allergy, Unknown, 10/27/17) Objective Vital Signs Last 24 Hour Vital Signs Date Time Temp Pulse Resp B/P (MAP) Pulse Ox O2 Delivery O2 Flow Rate FiO2 11/28/18 10:59 80 22 97 Mechanical Ventilator 50 87 20 50 11/28/18 09:38 87 22 97 Mechanical Ventilator 50 87 20 50 11/28/18 08:00 50 11/28/18 08:00 Mechanical Ventilator 11/28/18 08:00 99.0 87 22 164/92 (116) 100 11/28/18 07:40 82 11/28/18 06:55 80 22 100 Mechanical Ventilator 50 69 20 50 11/28/18 05:08 86 21 50 11/28/18 05:00 99.0 80 22 160/77 (104) 95 11/28/18 04:00 76 11/28/18 04:00 98.9 80 22 161/71 (101) 99 11/28/18 04:00 50 11/28/18 04:00 Mechanical Ventilator 11/28/18 03:00 80 24 139/56 (83) 99 11/28/18 02:19 80 22 100 Mechanical Ventilator 50 80 22 50 11/28/18 02:00 86 23 140/67 (91) 98 11/28/18 01:00 86 28 157/67 (97) 98 11/28/18 00:59 89 22 50 11/28/18 00:00 99.0 87 28 154/81 (105) 98 11/28/18 00:00 Mechanical Ventilator 11/28/18 00:00 50 11/28/18 00:00 80 11/27/18 23:02 72 22 98 Mechanical Ventilator 50 72 22 50 11/27/18 23:00 71 28 141/68 (92) 98 11/27/18 22:00 79 28 131/68 (89) 98 10/22/19 21:00 79 29 170/6 (60) 95 11/27/18 20:48 67 20 50 11/27/18 20:00 79 11/27/18 20:00 50 11/27/18 20:00 98.6 79 29 151/74 (99) 95 11/27/18 20:00 Mechanical Ventilator 11/27/18 19:00 73 24 124/52 (76) 98 11/27/18 18:49 74 21 97 Mechanical Ventilator 50 74 21 50 11/27/18 18:00 85 28 150/77 (101) 95 11/27/18 17:11 96 22 50 11/27/18 17:00 78 27 182/77 (112) 92 11/27/18 16:00 98.7 84 26 182/81 (114) 92 11/27/18 16:00 Mechanical Ventilator 11/27/18 16:00 84 11/27/18 16:00 50 11/27/18 15:00 86 24 97 Mechanical Ventilator 50 88 24 50 11/27/18 15:00 78 24 113/62 (79) 94 11/27/18 14:00 87 23 158/73 (101) 93 11/27/18 13:12 84 24 50 11/27/18 13:00 82 25 146/69 (94) 96 11/27/18 12:00 Mechanical Ventilator 11/27/18 12:00 76 11/27/18 12:00 98.8 71 23 137/58 (84) 95 11/27/18 12:00 50 Height (Feet): 5 Height (Inches): 5.00 Weight (Pounds): 170 HEENT: status post trach Respiratory/Chest: decreased breath sounds, other - on ventilator Cardiovascular: normal rate, other - left arm PICC line Abdomen: soft, non tender, other - GT feeding Genitourinary: other - Turner catheter, hematuria Extremities: other - generalized edema Skin: ulcers, other - sacral Neurologic/Psychiatric: aphasia Microbiology Date/Time Source Procedure Growth Status 11/26/18 20:00 Sputum Expectorated Gram Stain - Final Resulted 11/26/18 20:00 Sputum Culture - Preliminary Gram Negative Bacillus 1 Gram Negative Bacillus 2 Resulted Laboratory Tests Test 11/27/18 18:00 11/28/18 05:00 Stool Occult Blood Pending White Blood Count 11.4 K/UL (4.8-10.8) H Red Blood Count 3.05 M/UL (4.70-6.10) L Hemoglobin 8.2 G/DL (14.2-18.0) L Hematocrit 26.3 % (42.0-52.0) L Mean Corpuscular Volume 86 FL (80-99) Mean Corpuscular Hemoglobin 26.9 PG (27.0-31.0) L Mean Corpuscular Hemoglobin Concent 31.2 G/DL (32.0-36.0) L Red Cell Distribution Width 16.1 % (11.6-14.8) H Platelet Count 204 K/UL (150-450) Mean Platelet Volume 6.6 FL (6.5-10.1) Neutrophils (%) (Auto) 71.7 % (45.0-75.0) Lymphocytes (%) (Auto) 14.5 % (20.0-45.0) L Monocytes (%) (Auto) 10.7 % (1.0-10.0) H Eosinophils (%) (Auto) 1.8 % (0.0-3.0) Basophils (%) (Auto) 1.2 % (0.0-2.0) Sodium Level 152 MMOL/L (136-145) H Potassium Level 4.1 MMOL/L (3.5-5.1) Chloride Level 114 MMOL/L (98-107) H Carbon Dioxide Level 38 MMOL/L (21-32) H Anion Gap 0 mmol/L (5-15) L Blood Urea Nitrogen 18 mg/dL (7-18) Creatinine 0.9 MG/DL (0.55-1.30) Estimat Glomerular Filtration Rate mL/min (>60) Glucose Level 98 MG/DL (74-106) Uric Acid 2.4 MG/DL (2.6-7.2) L Calcium Level 8.3 MG/DL (8.5-10.1) L Phosphorus Level 3.1 MG/DL (2.5-4.9) Magnesium Level 1.8 MG/DL (1.8-2.4) Total Bilirubin 0.3 MG/DL (0.2-1.0) Gamma Glutamyl Transpeptidase 94 U/L (5-85) H Aspartate Amino Transf (AST/SGOT) 25 U/L (15-37) Alanine Aminotransferase (ALT/SGPT) 54 U/L (12-78) Alkaline Phosphatase 105 U/L (46-116) C-Reactive Protein, Quantitative 7.2 mg/dL (0.00-0.90) H Pro-B-Type Natriuretic Peptide 3695 pg/mL (0-125) H Total Protein 5.9 G/DL (6.4-8.2) L Albumin 1.7 G/DL (3.4-5.0) L Globulin 4.2 g/dL Albumin/Globulin Ratio 0.4 (1.0-2.7) L Current Medications Medications (Trade) Dose Ordered Sig/Ruthie Route PRN Reason Start Time Stop Time Status Last Admin Dose Admin Acetaminophen (Tylenol) 650 mg Q6H PRN GT Mild Pain/Temp > 100.5 11/28/18 06:05 12/15/18 06:04 Atropine Sulfate (Atropine 0.4mg/ ml) 0.4 mg Q5M PRN IVP HR<30 for 30 seconds 11/28/18 06:09 12/28/18 06:08 Bisacodyl (Dulcolax) 10 mg DAILYPRN PRN RECTAL Constipation 11/28/18 06:05 12/18/18 06:04 Chlorhexidine Gluconate (Rachael-Hex 2%) 1 applic DAILY@2000 TOPIC 11/28/18 20:00 12/15/18 19:59 Dextrose 1,000 ml @ 75 mls/hr [id number] IV 11/28/18 06:30 11/28/18 15:30 11/28/18 10:55 Dextrose (Dextrose 50%) 25 ml Q30M PRN IV Hypoglycemia 11/28/18 06:15 12/15/18 09:38 Dextrose (Dextrose 50%) 50 ml Q30M PRN IV Hypoglycemia 11/28/18 06:15 12/15/18 05:44 Hydromorphone HCl (Dilaudid) 0.5 mg Q4H PRN IVP PAIN 4-10 11/28/18 09:45 11/29/18 09:39 Insulin Aspart (NovoLOG) BEFORE MEALS AND HS SUBQ 11/28/18 06:30 12/15/18 06:29 Lorazepam (Ativan 2mg/ml 1ml) 0.5 mg Q2H PRN IV For Anxiety 11/28/18 06:45 11/30/18 10:44 Olanzapine (ZyPREXA Zydis) 7.5 mg DAILY GT 11/28/18 09:00 12/15/18 08:59 11/28/18 09:05 Pantoprazole (Protonix) 40 mg EVERY 12 HOURS IVP 11/28/18 09:00 12/15/18 08:59 11/28/18 09:04 Quetiapine Fumarate (SEROquel) 50 mg DAILY GT 11/28/18 09:00 12/15/18 08:59 11/28/18 09:04 Tamsulosin HCl (Flomax) 0.4 mg BEDTIME ORAL 11/28/18 21:00 12/15/18 20:59 Anam Cruz MD Nov 28, 2018 11:09
--- NOTE | 2018-11-28 11:33 | Nephrology Progress Note ---
Assessment/Plan Problem List: (1) Septic shock Assessment: WBCs rising (2) Ventilator dependence (3) Renal failure (ARF), acute on chronic (4) Prostate enlargement (5) Anemia (6) Hyperosmolality with hypernatremia Assessment Septic Shock Acute renal failure CKD underlying BPH Sever Anemia Chronic trach-Vent DM HypoAlbuminemia HyperNatremia Dementia Troponin elevation Plan start D5W for hyperNatremia now in ICU for episode of bradycardia and asystole family agreed to DNR labs reviewed- mag IV as needed change IV to D5 avoid Nephrotoxics transfuse as needed crabtree monitor urine out put and renal parameters per orders Subjective ROS Limited/Unobtainable: Yes Objective Objective Last 24 Hour Vital Signs Date Time Temp Pulse Resp B/P (MAP) Pulse Ox O2 Delivery O2 Flow Rate FiO2 11/28/18 10:59 80 22 97 Mechanical Ventilator 50 87 20 50 11/28/18 09:38 87 22 97 Mechanical Ventilator 50 87 20 50 11/28/18 08:00 50 11/28/18 08:00 Mechanical Ventilator 11/28/18 08:00 99.0 87 22 164/92 (116) 100 11/28/18 07:40 82 11/28/18 06:55 80 22 100 Mechanical Ventilator 50 69 20 50 11/28/18 05:08 86 21 50 11/28/18 05:00 99.0 80 22 160/77 (104) 95 11/28/18 04:00 76 11/28/18 04:00 98.9 80 22 161/71 (101) 99 11/28/18 04:00 50 11/28/18 04:00 Mechanical Ventilator 11/28/18 03:00 80 24 139/56 (83) 99 11/28/18 02:19 80 22 100 Mechanical Ventilator 50 80 22 50 11/28/18 02:00 86 23 140/67 (91) 98 11/28/18 01:00 86 28 157/67 (97) 98 11/28/18 00:59 89 22 50 11/28/18 00:00 99.0 87 28 154/81 (105) 98 11/28/18 00:00 Mechanical Ventilator 11/28/18 00:00 50 11/28/18 00:00 80 11/27/18 23:02 72 22 98 Mechanical Ventilator 50 72 22 50 11/27/18 23:00 71 28 141/68 (92) 98 11/27/18 22:00 79 28 131/68 (89) 98 11/27/18 21:00 79 29 170/6 (60) 95 11/27/18 20:48 67 20 50 11/27/18 20:00 79 11/27/18 20:00 50 11/27/18 20:00 98.6 79 29 151/74 (99) 95 11/27/18 20:00 Mechanical Ventilator 11/27/18 19:00 73 24 124/52 (76) 98 11/27/18 18:49 74 21 97 Mechanical Ventilator 50 74 21 50 11/27/18 18:00 85 28 150/77 (101) 95 11/27/18 17:11 96 22 50 11/27/18 17:00 78 27 182/77 (112) 92 11/27/18 16:00 98.7 84 26 182/81 (114) 92 11/27/18 16:00 Mechanical Ventilator 11/27/18 16:00 84 11/27/18 16:00 50 11/27/18 15:00 86 24 97 Mechanical Ventilator 50 88 24 50 11/27/18 15:00 78 24 113/62 (79) 94 11/27/18 14:00 87 23 158/73 (101) 93 11/27/18 13:12 84 24 50 11/27/18 13:00 82 25 146/69 (94) 96 11/27/18 12:00 Mechanical Ventilator 11/27/18 12:00 76 11/27/18 12:00 98.8 71 23 137/58 (84) 95 11/27/18 12:00 50 Intake and Output 11/27/18 11/28/18 19:00 07:00 Intake Total 1475.0 ml 1440 ml Output Total 240 ml 250 ml Balance 1235.0 ml 1190 ml Intake Free Water 220 ml 160 ml IV Total 595.0 ml 675 ml Tube Feeding 660 ml 605 ml Output Urine Total 240 ml 250 ml # Voids 5 # Bowel Movements 5 1 Laboratory Tests 11/27/18 18:00: Stool Occult Blood [Pending] 11/28/18 05:00: White Blood Count 11.4H, Red Blood Count 3.05L, Hemoglobin 8.2L, Hematocrit 26.3L, Mean Corpuscular Volume 86, Mean Corpuscular Hemoglobin 26.9L, Mean Corpuscular Hemoglobin Concent 31.2L, Red Cell Distribution Width 16.1H, Platelet Count 204, Mean Platelet Volume 6.6, Neutrophils (%) (Auto) 71.7, Lymphocytes (%) (Auto) 14.5L, Monocytes (%) (Auto) 10.7H, Eosinophils (%) (Auto ) 1.8, Basophils (%) (Auto) 1.2, Sodium Level 152H, Potassium Level 4.1, Chloride Level 114H, Carbon Dioxide Level 38H, Anion Gap 0L, Blood Urea Nitrogen 18, Creatinine 0.9, Estimat Glomerular Filtration Rate , Glucose Level 98, Uric Acid 2.4L, Calcium Level 8.3L, Phosphorus Level 3.1, Magnesium Level 1.8, Total Bilirubin 0.3, Gamma Glutamyl Transpeptidase 94H, Aspartate Amino Transf (AST/SGOT) 25, Alanine Aminotransferase (ALT/SGPT) 54, Alkaline Phosphatase 105, C-Reactive Protein, Quantitative 7.2H, Pro-B-Type Natriuretic Peptide 3695H, Total Protein 5.9L, Albumin 1.7L, Globulin 4.2, Albumin/Globulin Ratio 0.4L Height (Feet): 5 Height (Inches): 5.00 Weight (Pounds): 170 General Appearance: no apparent distress, lethargic EENT: other - Trach-Vent Cardiovascular: tachycardia Respiratory/Chest: decreased breath sounds Abdomen: distended Objective no change Randolph Fernandes MD Nov 28, 2018 11:33
--- NOTE | 2018-11-28 12:18 | GI Progress Note ---
Assessment/Plan Problems: (1) PEG (percutaneous endoscopic gastrostomy) status ICD Codes: Z93.1 - Gastrostomy status SNOMED: 900159275, 943988262 (2) GIB (gastrointestinal bleeding) ICD Codes: K92.2 - Gastrointestinal hemorrhage, unspecified SNOMED: 23261521 (3) Anemia ICD Codes: D64.9 - Anemia, unspecified SNOMED: 083058228 (4) Constipation ICD Codes: K59.00 - Constipation, unspecified SNOMED: 67415525 (5) Gastrostomy tube dependent ICD Codes: Z93.1 - Gastrostomy status SNOMED: 628354888, 872047801 (6) DM (7) Encephalopathy due to metabolic factor or toxin SNOMED: 342657219 Status: stable, unchanged Status Narrative Discussed with Dr. Coronel. Assessment/Plan OB stool positive x3 hepatitis panel negative s/p EGD SUMMARY OF FINDINGS: Gastritis, otherwise normal upper endoscopic examination. RECOMMENDATIONS: Resume G-tube feeding. Monitor hemoglobin and hematocrit. Transfuse as needed. Monitor for stool OB. The patient might need colonoscopy if continues to bleed, stable at 8 now. Hold iron supplementation given elevated ferritin levels abx fu labs The patient was seen and examined at bedside and all new and available data was reviewed in the patients chart. I agree with the above findings, impression and plan. (Patient seen earlier today. Signature stamp does not reflect patient encounter time.). - Juan Coronel MD Subjective Subjective limited Objective Last 24 Hour Vital Signs Date Time Temp Pulse Resp B/P (MAP) Pulse Ox O2 Delivery O2 Flow Rate FiO2 11/28/18 10:59 80 22 97 Mechanical Ventilator 50 87 20 50 11/28/18 09:38 87 22 97 Mechanical Ventilator 50 87 20 50 11/28/18 08:00 50 11/28/18 08:00 Mechanical Ventilator 11/28/18 08:00 99.0 87 22 164/92 (116) 100 11/28/18 07:40 82 11/28/18 06:55 80 22 100 Mechanical Ventilator 50 69 20 50 11/28/18 05:08 86 21 50 11/28/18 05:00 99.0 80 22 160/77 (104) 95 11/28/18 04:00 76 11/28/18 04:00 98.9 80 22 161/71 (101) 99 11/28/18 04:00 50 11/28/18 04:00 Mechanical Ventilator 11/28/18 03:00 80 24 139/56 (83) 99 11/28/18 02:19 80 22 100 Mechanical Ventilator 50 80 22 50 11/28/18 02:00 86 23 140/67 (91) 98 11/28/18 01:00 86 28 157/67 (97) 98 11/28/18 00:59 89 22 50 11/28/18 00:00 99.0 87 28 154/81 (105) 98 11/28/18 00:00 Mechanical Ventilator 11/28/18 00:00 50 11/28/18 00:00 80 11/27/18 23:02 72 22 98 Mechanical Ventilator 50 72 22 50 11/27/18 23:00 71 28 141/68 (92) 98 11/27/18 22:00 79 28 131/68 (89) 98 11/27/18 21:00 79 29 170/6 (60) 95 11/27/18 20:48 67 20 50 11/27/18 20:00 79 11/27/18 20:00 50 11/27/18 20:00 98.6 79 29 151/74 (99) 95 11/27/18 20:00 Mechanical Ventilator 11/27/18 19:00 73 24 124/52 (76) 98 11/27/18 18:49 74 21 97 Mechanical Ventilator 50 74 21 50 11/27/18 18:00 85 28 150/77 (101) 95 11/27/18 17:11 96 22 50 11/27/18 17:00 78 27 182/77 (112) 92 11/27/18 16:00 98.7 84 26 182/81 (114) 92 11/27/18 16:00 Mechanical Ventilator 11/27/18 16:00 84 11/27/18 16:00 50 11/27/18 15:00 86 24 97 Mechanical Ventilator 50 88 24 50 11/27/18 15:00 78 24 113/62 (79) 94 11/27/18 14:00 87 23 158/73 (101) 93 11/27/18 13:12 84 24 50 11/27/18 13:00 82 25 146/69 (94) 96 Intake and Output 11/27/18 11/28/18 19:00 07:00 Intake Total 1475.0 ml 1440 ml Output Total 240 ml 250 ml Balance 1235.0 ml 1190 ml Intake Free Water 220 ml 160 ml IV Total 595.0 ml 675 ml Tube Feeding 660 ml 605 ml Output Urine Total 240 ml 250 ml # Voids 5 # Bowel Movements 5 1 Laboratory Tests Test 11/27/18 18:00 11/28/18 05:00 Stool Occult Blood Positive (NEGATIVE) White Blood Count 11.4 K/UL (4.8-10.8) H Red Blood Count 3.05 M/UL (4.70-6.10) L Hemoglobin 8.2 G/DL (14.2-18.0) L Hematocrit 26.3 % (42.0-52.0) L Mean Corpuscular Volume 86 FL (80-99) Mean Corpuscular Hemoglobin 26.9 PG (27.0-31.0) L Mean Corpuscular Hemoglobin Concent 31.2 G/DL (32.0-36.0) L Red Cell Distribution Width 16.1 % (11.6-14.8) H Platelet Count 204 K/UL (150-450) Mean Platelet Volume 6.6 FL (6.5-10.1) Neutrophils (%) (Auto) 71.7 % (45.0-75.0) Lymphocytes (%) (Auto) 14.5 % (20.0-45.0) L Monocytes (%) (Auto) 10.7 % (1.0-10.0) H Eosinophils (%) (Auto) 1.8 % (0.0-3.0) Basophils (%) (Auto) 1.2 % (0.0-2.0) Sodium Level 152 MMOL/L (136-145) H Potassium Level 4.1 MMOL/L (3.5-5.1) Chloride Level 114 MMOL/L (98-107) H Carbon Dioxide Level 38 MMOL/L (21-32) H Anion Gap 0 mmol/L (5-15) L Blood Urea Nitrogen 18 mg/dL (7-18) Creatinine 0.9 MG/DL (0.55-1.30) Estimat Glomerular Filtration Rate mL/min (>60) Glucose Level 98 MG/DL (74-106) Uric Acid 2.4 MG/DL (2.6-7.2) L Calcium Level 8.3 MG/DL (8.5-10.1) L Phosphorus Level 3.1 MG/DL (2.5-4.9) Magnesium Level 1.8 MG/DL (1.8-2.4) Total Bilirubin 0.3 MG/DL (0.2-1.0) Gamma Glutamyl Transpeptidase 94 U/L (5-85) H Aspartate Amino Transf (AST/SGOT) 25 U/L (15-37) Alanine Aminotransferase (ALT/SGPT) 54 U/L (12-78) Alkaline Phosphatase 105 U/L (46-116) C-Reactive Protein, Quantitative 7.2 mg/dL (0.00-0.90) H Pro-B-Type Natriuretic Peptide 3695 pg/mL (0-125) H Total Protein 5.9 G/DL (6.4-8.2) L Albumin 1.7 G/DL (3.4-5.0) L Globulin 4.2 g/dL Albumin/Globulin Ratio 0.4 (1.0-2.7) L Height (Feet): 5 Height (Inches): 5.00 Weight (Pounds): 170 General Appearance: no apparent distress Cardiovascular: normal rate Respiratory/Chest: normal breath sounds, no respiratory distress Abdominal Exam: normal bowel sounds, non tender, soft, GT site - c/d/i Extremities: non-tender Kishan Hopkins [employer] Nov 28, 2018 12:18
--- NOTE | 2018-11-28 12:36 | Cardiac Electrophysiology PN ---
Assessment/Plan Assessment/Plan 1. S/P Septic shock with white count of 50,000 and lactic acid of 6. On IV antibiotic and IV fluid . WBC was 20k on 11/22 and is down to 13k on Abx. 2. S/P multiple episodes of asystole with HR down to 10 and pauses of more than 10 seconds earlier today . Off any MCGEE or AVN blockers. Needs permanent pacer implantation. Patient is full code. DW Son with RN present on the phone Mr. Faraz Erickson on 11/23/18 at . Family refusing the pacer. Keep on prn Atropine Echo Nl EF. 3. Congestive heart failure with BNP of more than 17,000. Now BNP 3000 range 4. Troponin elevation, likely due to renal failure and anemia and septic shock. The levels are flat. EKG does not show any ST elevation. 5. S/P Acute renal failure. Resolved BUN 15 and Cr now 0.8 6. Hypernatremia. On D5W per Dr Fernandes 7. Ventilator-dependent respiratory failure, status post tracheostomy. 8. Dysphagia, status post PEG placement. 9. Profound anemia, hemoglobin of 6.5, rule out GI bleed. S/P blood transfusion. S/P EGD RICARDA RN Subjective Subjective DNR and family refusing Pacer implant. Transferred to SDU Objective Last 24 Hour Vital Signs Date Time Temp Pulse Resp B/P (MAP) Pulse Ox O2 Delivery O2 Flow Rate FiO2 11/28/18 10:59 80 22 97 Mechanical Ventilator 50 87 20 50 11/28/18 09:38 87 22 97 Mechanical Ventilator 50 87 20 50 11/28/18 08:00 50 11/28/18 08:00 Mechanical Ventilator 11/28/18 08:00 99.0 87 22 164/92 (116) 100 11/28/18 07:40 82 11/28/18 06:55 80 22 100 Mechanical Ventilator 50 69 20 50 11/28/18 05:08 86 21 50 11/28/18 05:00 99.0 80 22 160/77 (104) 95 11/28/18 04:00 76 11/28/18 04:00 98.9 80 22 161/71 (101) 99 11/28/18 04:00 50 11/28/18 04:00 Mechanical Ventilator 11/28/18 03:00 80 24 139/56 (83) 99 11/28/18 02:19 80 22 100 Mechanical Ventilator 50 80 22 50 11/28/18 02:00 86 23 140/67 (91) 98 11/28/18 01:00 86 28 157/67 (97) 98 11/28/18 00:59 89 22 50 11/28/18 00:00 99.0 87 28 154/81 (105) 98 11/28/18 00:00 Mechanical Ventilator 11/28/18 00:00 50 11/28/18 00:00 80 11/27/18 23:02 72 22 98 Mechanical Ventilator 50 72 22 50 11/27/18 23:00 71 28 141/68 (92) 98 11/27/18 22:00 79 28 131/68 (89) 98 11/27/18 21:00 79 29 170/6 (60) 95 11/27/18 20:48 67 20 50 11/27/18 20:00 79 11/27/18 20:00 50 11/27/18 20:00 98.6 79 29 151/74 (99) 95 11/27/18 20:00 Mechanical Ventilator 11/27/18 19:00 73 24 124/52 (76) 98 11/27/18 18:49 74 21 97 Mechanical Ventilator 50 74 21 50 11/27/18 18:00 85 28 150/77 (101) 95 11/27/18 17:11 96 22 50 11/27/18 17:00 78 27 182/77 (112) 92 11/27/18 16:00 98.7 84 26 182/81 (114) 92 11/27/18 16:00 Mechanical Ventilator 11/27/18 16:00 84 11/27/18 16:00 50 11/27/18 15:00 86 24 97 Mechanical Ventilator 50 88 24 50 11/27/18 15:00 78 24 113/62 (79) 94 11/27/18 14:00 87 23 158/73 (101) 93 11/27/18 13:12 84 24 50 11/27/18 13:00 82 25 146/69 (94) 96 Intake and Output 11/27/18 11/28/18 19:00 07:00 Intake Total 1475.0 ml 1440 ml Output Total 240 ml 250 ml Balance 1235.0 ml 1190 ml Intake Free Water 220 ml 160 ml IV Total 595.0 ml 675 ml Tube Feeding 660 ml 605 ml Output Urine Total 240 ml 250 ml # Voids 5 # Bowel Movements 5 1 Laboratory Tests Test 11/27/18 18:00 11/28/18 05:00 Stool Occult Blood Positive (NEGATIVE) White Blood Count 11.4 K/UL (4.8-10.8) H Red Blood Count 3.05 M/UL (4.70-6.10) L Hemoglobin 8.2 G/DL (14.2-18.0) L Hematocrit 26.3 % (42.0-52.0) L Mean Corpuscular Volume 86 FL (80-99) Mean Corpuscular Hemoglobin 26.9 PG (27.0-31.0) L Mean Corpuscular Hemoglobin Concent 31.2 G/DL (32.0-36.0) L Red Cell Distribution Width 16.1 % (11.6-14.8) H Platelet Count 204 K/UL (150-450) Mean Platelet Volume 6.6 FL (6.5-10.1) Neutrophils (%) (Auto) 71.7 % (45.0-75.0) Lymphocytes (%) (Auto) 14.5 % (20.0-45.0) L Monocytes (%) (Auto) 10.7 % (1.0-10.0) H Eosinophils (%) (Auto) 1.8 % (0.0-3.0) Basophils (%) (Auto) 1.2 % (0.0-2.0) Sodium Level 152 MMOL/L (136-145) H Potassium Level 4.1 MMOL/L (3.5-5.1) Chloride Level 114 MMOL/L (98-107) H Carbon Dioxide Level 38 MMOL/L (21-32) H Anion Gap 0 mmol/L (5-15) L Blood Urea Nitrogen 18 mg/dL (7-18) Creatinine 0.9 MG/DL (0.55-1.30) Estimat Glomerular Filtration Rate mL/min (>60) Glucose Level 98 MG/DL (74-106) Uric Acid 2.4 MG/DL (2.6-7.2) L Calcium Level 8.3 MG/DL (8.5-10.1) L Phosphorus Level 3.1 MG/DL (2.5-4.9) Magnesium Level 1.8 MG/DL (1.8-2.4) Total Bilirubin 0.3 MG/DL (0.2-1.0) Gamma Glutamyl Transpeptidase 94 U/L (5-85) H Aspartate Amino Transf (AST/SGOT) 25 U/L (15-37) Alanine Aminotransferase (ALT/SGPT) 54 U/L (12-78) Alkaline Phosphatase 105 U/L (46-116) C-Reactive Protein, Quantitative 7.2 mg/dL (0.00-0.90) H Pro-B-Type Natriuretic Peptide 3695 pg/mL (0-125) H Total Protein 5.9 G/DL (6.4-8.2) L Albumin 1.7 G/DL (3.4-5.0) L Globulin 4.2 g/dL Albumin/Globulin Ratio 0.4 (1.0-2.7) L Microbiology Date/Time Source Procedure Growth Status 11/26/18 20:00 Sputum Expectorated Gram Stain - Final Resulted 11/26/18 20:00 Sputum Culture - Preliminary Gram Negative Bacillus 1 Gram Negative Bacillus 2 Resulted Objective HEAD AND NECK: Tracheostomy intact. LUNGS: Coarse rhonchi.Decreased breath sounds CARDIOVASCULAR: Irregular irregular S1 and S2 with no gallop. ABDOMEN: Status post G-tube, distended. EXTREMITIES: Reveal 1+ edema. Luke Prather MD Nov 28, 2018 12:36
--- NOTE | 2018-11-28 14:44 | Surgery Progress Note ---
Surgery Progress Note Subjective Symptoms: improved Additional Comments no acute events comfortable stable Objective Last 24 Hour Vital Signs Date Time Temp Pulse Resp B/P (MAP) Pulse Ox O2 Delivery O2 Flow Rate FiO2 11/28/18 12:33 82 22 100 Mechanical Ventilator 50 69 20 50 11/28/18 12:00 40 11/28/18 12:00 Mechanical Ventilator 11/28/18 12:00 99.2 81 22 154/78 (103) 98 11/28/18 11:45 67 11/28/18 10:59 80 22 97 Mechanical Ventilator 50 87 20 50 11/28/18 09:38 87 22 97 Mechanical Ventilator 50 87 20 50 11/28/18 08:00 50 11/28/18 08:00 Mechanical Ventilator 11/28/18 08:00 99.0 87 22 164/92 (116) 100 11/28/18 07:40 82 11/28/18 06:55 80 22 100 Mechanical Ventilator 50 69 20 50 11/28/18 05:08 86 21 50 11/28/18 05:00 99.0 80 22 160/77 (104) 95 11/28/18 04:00 76 11/28/18 04:00 98.9 80 22 161/71 (101) 99 11/28/18 04:00 50 11/28/18 04:00 Mechanical Ventilator 11/28/18 03:00 80 24 139/56 (83) 99 11/28/18 02:19 80 22 100 Mechanical Ventilator 50 80 22 50 11/28/18 02:00 86 23 140/67 (91) 98 11/28/18 01:00 86 28 157/67 (97) 98 11/28/18 00:59 89 22 50 11/28/18 00:00 99.0 87 28 154/81 (105) 98 11/28/18 00:00 Mechanical Ventilator 11/28/18 00:00 50 11/28/18 00:00 80 11/27/18 23:02 72 22 98 Mechanical Ventilator 50 72 22 50 11/27/18 23:00 71 28 141/68 (92) 98 11/27/18 22:00 79 28 131/68 (89) 98 11/27/18 21:00 79 29 170/6 (60) 95 11/27/18 20:48 67 20 50 11/27/18 20:00 79 11/27/18 20:00 50 11/27/18 20:00 98.6 79 29 151/74 (99) 95 11/27/18 20:00 Mechanical Ventilator 11/27/18 19:00 73 24 124/52 (76) 98 11/27/18 18:49 74 21 97 Mechanical Ventilator 50 74 21 50 11/27/18 18:00 85 28 150/77 (101) 95 11/27/18 17:11 96 22 50 11/27/18 17:00 78 27 182/77 (112) 92 11/27/18 16:00 98.7 84 26 182/81 (114) 92 11/27/18 16:00 Mechanical Ventilator 11/27/18 16:00 84 11/27/18 16:00 50 11/27/18 15:00 86 24 97 Mechanical Ventilator 50 88 24 50 11/27/18 15:00 78 24 113/62 (79) 94 I&O Intake and Output 11/27/18 11/28/18 19:00 07:00 Intake Total 1475.0 ml 1440 ml Output Total 240 ml 250 ml Balance 1235.0 ml 1190 ml Intake Free Water 220 ml 160 ml IV Total 595.0 ml 675 ml Tube Feeding 660 ml 605 ml Output Urine Total 240 ml 250 ml # Voids 5 # Bowel Movements 5 1 Dressing: saturated Wound: other Drains: other Cardiovascular: RSR Respiratory: decreased breath sounds Abdomen: soft, present bowel sounds, non-distended Extremities: no cyanosis, other Laboratory Tests Test 11/27/18 18:00 11/28/18 05:00 Stool Occult Blood Positive (NEGATIVE) White Blood Count 11.4 K/UL (4.8-10.8) H Red Blood Count 3.05 M/UL (4.70-6.10) L Hemoglobin 8.2 G/DL (14.2-18.0) L Hematocrit 26.3 % (42.0-52.0) L Mean Corpuscular Volume 86 FL (80-99) Mean Corpuscular Hemoglobin 26.9 PG (27.0-31.0) L Mean Corpuscular Hemoglobin Concent 31.2 G/DL (32.0-36.0) L Red Cell Distribution Width 16.1 % (11.6-14.8) H Platelet Count 204 K/UL (150-450) Mean Platelet Volume 6.6 FL (6.5-10.1) Neutrophils (%) (Auto) 71.7 % (45.0-75.0) Lymphocytes (%) (Auto) 14.5 % (20.0-45.0) L Monocytes (%) (Auto) 10.7 % (1.0-10.0) H Eosinophils (%) (Auto) 1.8 % (0.0-3.0) Basophils (%) (Auto) 1.2 % (0.0-2.0) Sodium Level 152 MMOL/L (136-145) H Potassium Level 4.1 MMOL/L (3.5-5.1) Chloride Level 114 MMOL/L (98-107) H Carbon Dioxide Level 38 MMOL/L (21-32) H Anion Gap 0 mmol/L (5-15) L Blood Urea Nitrogen 18 mg/dL (7-18) Creatinine 0.9 MG/DL (0.55-1.30) Estimat Glomerular Filtration Rate mL/min (>60) Glucose Level 98 MG/DL (74-106) Uric Acid 2.4 MG/DL (2.6-7.2) L Calcium Level 8.3 MG/DL (8.5-10.1) L Phosphorus Level 3.1 MG/DL (2.5-4.9) Magnesium Level 1.8 MG/DL (1.8-2.4) Total Bilirubin 0.3 MG/DL (0.2-1.0) Gamma Glutamyl Transpeptidase 94 U/L (5-85) H Aspartate Amino Transf (AST/SGOT) 25 U/L (15-37) Alanine Aminotransferase (ALT/SGPT) 54 U/L (12-78) Alkaline Phosphatase 105 U/L (46-116) C-Reactive Protein, Quantitative 7.2 mg/dL (0.00-0.90) H Pro-B-Type Natriuretic Peptide 3695 pg/mL (0-125) H Total Protein 5.9 G/DL (6.4-8.2) L Albumin 1.7 G/DL (3.4-5.0) L Globulin 4.2 g/dL Albumin/Globulin Ratio 0.4 (1.0-2.7) L Plan Problems: (1) Severe sepsis Assessment & Plan: leukocytosis, anemia, lactic acidosis, fevers IV Abx imaging noted and reviewed US with no stones or dilated ducts elevated lft's likely due to liver disease exam as below cont abx trend labs leave crabtree for a few weeks thank you will follow with recs Findings: Exam is somewhat limited, due to gastrostomy tube and overlying bowel gas limiting visualization of the abdominal aorta Gallbladder is unremarkable, without stones, wall thickening, nor pericholecystic fluid. Sonographic Carl's sign is negative. Common bile duct measures 4 mm in diameter. No intrahepatic biliary ductal dilatation. Liver demonstrates normal echogenicity, no focal abnormality. It demonstrates slight surface nodularity. It is enlarged. There is a 1 cm cyst which appears adjacent to the gallbladder wall. This is probably a small exophytic hepatic cyst. Portal vein and hepatic veins are patent. Pancreas is unremarkable. Spleen is unremarkable. Left kidney measures 9.2 cm in length. Right kidney measures 10.2 cm length. Both kidneys demonstrate normal echogenicity. There is no hydronephrosis. Both kidneys demonstrate cysts. . Abdominal aorta is partially obscured by bowel gas, visualized portions are non-aneurysmal . Impression: Negative for gallstones or dilated bile ducts Hepatic surface nodularity, may indicate early cirrhotic changes Hepatomegaly Incidental finding bilateral renal cysts (2) Malnutrition Assessment & Plan: DAILY ESTIMATED NEEDS: Needs based on Critical care, sepsis 71.8 kg 22-30 kcals/kg 6344-7747 total kcals 1.2-2 g protein/kg 86- 144 g total protein 25-30 mL/kg 1795- 2154 total fluid mLs NUTRITION DIAGNOSIS: * Swallowing difficulty R/T respiratory status and dysphagia as evidenced by pt is vent dep, on TF. * Altered nutrition related lab values r/t sepsis, clinical status, h/o Diabetes as evidenced by critically elev WBC (47.2), low Hgb (6.6), elev BNP, low BP (96/41), BG 191, POC 179. CURRENT TF: Jevity 1.2 @ 70mL/hr x 20hr - NOW NPO ENTERAL NUTRITION RECOMMENDATIONS: Vital 1.2 @55mL/hr x24 hrs to provide 1320mL, 1584kcal, 99g pro, 1071mL free H2O * As medically appropriate to feed, rec TF change to VITAL 1.2 for critical care. * Start Vital 1,2, @25mL, advance as tolerated 10ml/hr q4-6 hrs to goal * HOB over 30 degrees/ water flush per MD --- Low Hgb (6.6), NPO per GI-> rec trophic feeds when appropriate if pt remains hypotensive. ADDITIONAL RECOMMENDATIONS: * Per SNF: HT 68 inches WT 158 lbs + Daily calibrated bed scale wts * Change TF to Vital 1.2, as medically able to feed * Monitor lytes (replete as needed) * F/up w/ WC eval . (3) Sacral decubitus ulcer Assessment & Plan: Pt presented on admission with contractures and multiple pressure injuries. Partially opened DTPI L buttocks. Base of wound moist - viable with surrounding dark and fluctuant borders.(L)1.2cm x (W)1cm. Small amt of sanguineous exudate noted. No odor noted. Hyperpigmentation noted to sacrum. Historical scar from previous wound noted to L trochanter. Penile head retracted within foreskin and small wound noted within folds of foreskin. Wound is moist and viable. No odor or exudate noted. No erythema noted periwound. Resolving pressure injury plantar R heel. Base of wound 50% epithelialized, 50% moist and viable.(L)5.5cm x (W)6.5cm. Resolving pressure injury lateral L heel. Base of wound is moist and viable with surrounding hyperpigmentation.(L)0.6cm x (W)0.5cm. Scattered loose, dry brown skin noted to medial and posterior L heel. Tx.Plan: Apply Moisture Barrier Paste to L buttocks and sacrum. Cover with Optifoam drsg. Change every 3 days and prn. Cleanse head of penis with soap and water. Apply Bacitracin oint Twice Daily. Apply Betadine to R and L heel wounds. Cover each heel with Optifoam drsg. Daily and prn. APM/ABDELRAHMAN Mattress overlay. Reposition at least every 2hours and prn. Off-load heels with pillow. Additional Comments okay to d/c from surgical standpoint keep crabtree in place Don Carvalho Nov 28, 2018 14:44
[2018-11-28] MEDS ORDERED: Sterile Water Irrig 1000ml IRRIG ONE (17:46)
--- NOTE | 2018-11-28 20:11 | Hematology/Onc Progress Note ---
Assessment/Plan Assessment/Plan ASSESSMENT AND RECOMMENDATIONS # Leukocytosis. Likely related to underlying infection with sepsis and elevated severely on admission --> Imaging has been reviewed. Shows cxr left lung inil/v edema --> Blood cs and urine cx are reviewed --> Has been started on abx, empiric tx (zosyn) --> PERIPHERAL SMEAR SHOWS ATYPICAL LYMPHOCYTES--> has stabilized, improved --> Flow cytometry ordered with pathologist -> no atypical findings are noted --> wbc 52k-->47k-->29k->16-->12-->14->12-->12-->21-->14->11->15->9-->11.4 --> picc was repositioned # Anemia of chronic disease, due to underlying chronic medical issues, multifactorial. --> Anemia w/u has been ordered --> with hyperferritinemia --> No evidence of hemolysis noted, peripheral smear has been reviewed --> Hgb goal >7. Transfuse as needed --> hgb trend 7.5-->6.6->9.1-->9.2-->8.9-->9.9->8.3-->8.5-->9.3-->8.2 --> 2 units transfuse on 11/15 --> will need to follow as outpatient and may need chelation therapy --> GI workup with egd showed gastritis # Failure to thrive (FTT) - decreased bmi and low protein --> cea 4.3 --> will obtain q3 day caloric counts --> mirtazapine as appetite stimulant --> GI consult on a prn basis, as needed for endosc # Asystole with pauses may need pm per family --> as per cards recs # Sepsis, which has improved # PEG # Malnutrition. 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 Greatly appreciate consultation. Subjective Cardiovascular: Denies: no symptoms, chest pain, edema, irregular heart rate, lightheadedness, palpitations, syncope, other Respiratory: Denies: no symptoms, cough, shortness of breath, SOB with excertion, SOB at rest, sputum, wheezing, other Gastrointestinal/Abdominal: Denies: no symptoms, abdomen distended, abdominal pain, black stools, tarry stools, blood in stool, constipated, diarrhea, difficulty swallowing, nausea, poor appetite, poor fluid intake, rectal bleeding , vomiting, other Genitourinary: Denies: no symptoms, burning, discharge, frequency, flank pain, hematuria, incontinence, pain, urgency, other Neurologic/Psychiatric: Denies: no symptoms, anxiety, depressed, emotional problems, headache, numbness, paresthesia, pre-existing deficit, seizure, tingling, tremors, weakness, other Allergies: Coded Allergies: TERAZOSIN (Verified Allergy, Unknown, 10/27/17) Subjective 11/16: in the icu, is off pressors, doing better, no bleeding 11/18: no bleeding, remains on doxy and zosyn, no bleeding reported 11/19: out of the icu, on vent/trach, no major changes, jimenez dior 11/20: no bleeding noted, no night sweats, meds reviewed, no f/c 11/21: on vent, obtunded, with gt ongong, with picc, no bleeding .: stricture advanced through with uro, with crabtree, labs noted 11/23: no events to report, no bleeding, labs reviewed, in icu 11/24: remains in the icu, with asystole, pending discussion with marlyn re pM 11/25: continues to have pauses, no bleeding, seen by cards, no events 11/26: no ets, no bleeding noted, no night sweats, no f/c 11/27: hgb 8.2, no bleeding or chills, no major changes on trach/vent, jimenez RN 11/28: agitated today, on vent/trach, jimenez dior, potential dc to [facility] Objective Objective Current Medications Medications (Trade) Dose Ordered Sig/Ruthie Route PRN Reason Start Time Stop Time Status Last Admin Dose Admin Acetaminophen (Tylenol) 650 mg Q6H PRN GT Mild Pain/Temp > 100.5 11/28/18 06:05 12/15/18 06:04 Atropine Sulfate (Atropine 0.4mg/ ml) 0.4 mg Q5M PRN IVP HR<30 for 30 seconds 11/28/18 06:09 12/28/18 06:08 Bisacodyl (Dulcolax) 10 mg DAILYPRN PRN RECTAL Constipation 11/28/18 06:05 12/18/18 06:04 Chlorhexidine Gluconate (Rachael-Hex 2%) 1 applic DAILY@2000 TOPIC 11/28/18 20:00 12/15/18 19:59 Dextrose 1,000 ml @ 75 mls/hr [id number] IV 11/29/18 06:30 12/29/18 06:29 11/28/18 11:44 Dextrose (Dextrose 50%) 25 ml Q30M PRN IV Hypoglycemia 11/28/18 06:15 12/15/18 09:38 Dextrose (Dextrose 50%) 50 ml Q30M PRN IV Hypoglycemia 11/28/18 06:15 12/15/18 05:44 Hydromorphone HCl (Dilaudid) 0.5 mg Q4H PRN IVP PAIN 4-10 11/28/18 09:45 11/29/18 09:39 Insulin Aspart (NovoLOG) BEFORE MEALS AND HS SUBQ 11/28/18 06:30 12/15/18 06:29 11/28/18 16:40 Lansoprazole (Prevacid) 30 mg BID GT 11/28/18 18:00 12/28/18 17:59 11/28/18 18:42 Lorazepam (Ativan 2mg/ml 1ml) 0.5 mg Q2H PRN IV For Anxiety 11/28/18 06:45 11/30/18 10:44 Olanzapine (ZyPREXA Zydis) 7.5 mg DAILY GT 11/28/18 09:00 12/15/18 08:59 11/28/18 09:05 Tamsulosin HCl (Flomax) 0.4 mg BEDTIME ORAL 11/28/18 21:00 12/15/18 20:59 Last 24 Hour Vital Signs Date Time Temp Pulse Resp B/P (MAP) Pulse Ox O2 Delivery O2 Flow Rate FiO2 11/28/18 19:30 80 22 60 11/28/18 16:30 82 22 100 Mechanical Ventilator 50 69 20 50 11/28/18 16:00 50 11/28/18 16:00 99.4 96 24 125/50 (75) 98 11/28/18 16:00 Mechanical Ventilator 11/28/18 16:00 102 11/28/18 14:50 81 22 100 Mechanical Ventilator 50 69 20 50 11/28/18 12:33 82 22 100 Mechanical Ventilator 50 69 20 50 11/28/18 12:00 40 11/28/18 12:00 Mechanical Ventilator 11/28/18 12:00 99.2 81 22 154/78 (103) 98 11/28/18 11:45 67 11/28/18 10:59 80 22 97 Mechanical Ventilator 50 87 20 50 11/28/18 09:38 87 22 97 Mechanical Ventilator 50 87 20 50 11/28/18 08:00 50 11/28/18 08:00 Mechanical Ventilator 11/28/18 08:00 99.0 87 22 164/92 (116) 100 11/28/18 07:40 82 11/28/18 06:55 80 22 100 Mechanical Ventilator 50 69 20 50 11/28/18 05:08 86 21 50 11/28/18 05:00 99.0 80 22 160/77 (104) 95 11/28/18 04:00 76 11/28/18 04:00 98.9 80 22 161/71 (101) 99 11/28/18 04:00 50 11/28/18 04:00 Mechanical Ventilator 11/28/18 03:00 80 24 139/56 (83) 99 11/28/18 02:19 80 22 100 Mechanical Ventilator 50 80 22 50 11/28/18 02:00 86 23 140/67 (91) 98 11/28/18 01:00 86 28 157/67 (97) 98 11/28/18 00:59 89 22 50 11/28/18 00:00 99.0 87 28 154/81 (105) 98 11/28/18 00:00 Mechanical Ventilator 11/28/18 00:00 50 11/28/18 00:00 80 11/27/18 23:02 72 22 98 Mechanical Ventilator 50 72 22 50 11/27/18 23:00 71 28 141/68 (92) 98 11/27/18 22:00 79 28 131/68 (89) 98 11/27/18 21:00 79 29 170/6 (60) 95 11/27/18 20:48 67 20 50 11/27/18 20:00 79 11/27/18 20:00 50 11/27/18 20:00 98.6 79 29 151/74 (99) 95 11/27/18 20:00 Mechanical Ventilator 11/27/18 19:00 73 24 124/52 (76) 98 11/27/18 18:49 74 21 97 Mechanical Ventilator 50 74 21 50 11/27/18 18:00 85 28 150/77 (101) 95 11/27/18 17:11 96 22 50 11/27/18 17:00 78 27 182/77 (112) 92 11/27/18 16:00 98.7 84 26 182/81 (114) 92 11/27/18 16:00 Mechanical Ventilator 11/27/18 16:00 84 11/27/18 16:00 50 11/27/18 15:00 86 24 97 Mechanical Ventilator 50 88 24 50 11/27/18 15:00 78 24 113/62 (79) 94 11/27/18 14:00 87 23 158/73 (101) 93 11/27/18 13:12 84 24 50 11/27/18 13:00 82 25 146/69 (94) 96 11/27/18 12:00 Mechanical Ventilator 11/27/18 12:00 76 11/27/18 12:00 98.8 71 23 137/58 (84) 95 11/27/18 12:00 50 11/27/18 11:00 79 20 118/60 (79) 100 11/27/18 10:56 79 24 96 Mechanical Ventilator 50 80 23 50 11/27/18 10:00 82 17 130/59 (82) 95 11/27/18 09:22 81 22 50 11/27/18 09:00 81 22 137/62 (87) 95 11/27/18 09:00 50 11/27/18 08:00 83 11/27/18 08:00 Mechanical Ventilator 11/27/18 08:00 99.2 83 22 147/73 (97) 93 11/27/18 07:10 70 25 100 Mechanical Ventilator 50 64 26 50 11/27/18 07:00 85 22 146/78 (100) 100 11/27/18 06:00 77 21 142/64 (90) 100 11/27/18 05:14 94 22 50 11/27/18 05:00 92 21 150/63 (92) 100 11/27/18 04:00 84 11/27/18 04:00 86 30 170/74 (106) 96 11/27/18 04:00 50 11/27/18 04:00 Mechanical Ventilator 11/27/18 03:45 92 23 100 Mechanical Ventilator 50 94 22 50 11/27/18 03:00 92 18 165/74 (104) 93 11/27/18 02:00 84 18 156/64 (94) 95 11/27/18 01:20 91 22 50 11/27/18 01:00 77 18 139/61 (87) 95 11/27/18 00:00 50 11/27/18 00:00 80 11/27/18 00:00 Mechanical Ventilator 11/27/18 00:00 99.4 80 23 139/61 (87) 96 11/26/18 23:56 89 21 100 Mechanical Ventilator 50 89 21 50 11/26/18 23:00 90 23 162/76 (104) 100 11/26/18 22:00 89 23 162/76 (104) 100 11/26/18 21:10 94 18 50 11/26/18 21:00 89 22 160/84 (109) 100 Intake and Output 11/27/18 11/28/18 19:00 07:00 Intake Total 1475.0 ml 1440 ml Output Total 240 ml 250 ml Balance 1235.0 ml 1190 ml Intake Free Water 220 ml 160 ml IV Total 595.0 ml 675 ml Tube Feeding 660 ml 605 ml Output Urine Total 240 ml 250 ml # Voids 5 # Bowel Movements 5 1 Labs Test 11/26/18 04:50 11/27/18 05:15 11/27/18 18:00 11/28/18 05:00 White Blood Count 14.6 K/UL (4.8-10.8) 9.9 K/UL (4.8-10.8) 11.4 K/UL (4.8-10.8) Red Blood Count 3.43 M/UL (4.70-6.10) 3.01 M/UL (4.70-6.10) 3.05 M/UL (4.70-6.10) Hemoglobin 9.3 G/DL (14.2-18.0) 8.2 G/DL (14.2-18.0) 8.2 G/DL (14.2-18.0) Hematocrit 29.8 % (42.0-52.0) 26.0 % (42.0-52.0) 26.3 % (42.0-52.0) Mean Corpuscular Volume 87 FL (80-99) 87 FL (80-99) 86 FL (80-99) Mean Corpuscular Hemoglobin 27.1 PG (27.0-31.0) 27.2 PG (27.0-31.0) 26.9 PG (27.0-31.0) Mean Corpuscular Hemoglobin Concent 31.2 G/DL (32.0-36.0) 31.4 G/DL (32.0-36.0) 31.2 G/DL (32.0-36.0) Red Cell Distribution Width 16.3 % (11.6-14.8) 16.4 % (11.6-14.8) 16.1 % (11.6-14.8) Platelet Count 233 K/UL (150-450) 212 K/UL (150-450) 204 K/UL (150-450) Mean Platelet Volume 6.3 FL (6.5-10.1) 6.3 FL (6.5-10.1) 6.6 FL (6.5-10.1) Neutrophils (%) (Auto) 76.2 % (45.0-75.0) 74.6 % (45.0-75.0) 71.7 % (45.0-75.0) Lymphocytes (%) (Auto) 11.8 % (20.0-45.0) 13.5 % (20.0-45.0) 14.5 % (20.0-45.0) Monocytes (%) (Auto) 10.0 % (1.0-10.0) 9.5 % (1.0-10.0) 10.7 % (1.0-10.0) Eosinophils (%) (Auto) 1.3 % (0.0-3.0) 1.7 % (0.0-3.0) 1.8 % (0.0-3.0) Basophils (%) (Auto) 0.7 % (0.0-2.0) 0.7 % (0.0-2.0) 1.2 % (0.0-2.0) Sodium Level 150 MMOL/L (136-145) 153 MMOL/L (136-145) 152 MMOL/L (136-145) Potassium Level 4.1 MMOL/L (3.5-5.1) 4.1 MMOL/L (3.5-5.1) 4.1 MMOL/L (3.5-5.1) Chloride Level 114 MMOL/L (98-107) 116 MMOL/L (98-107) 114 MMOL/L (98-107) Carbon Dioxide Level 33 MMOL/L (21-32) 35 MMOL/L (21-32) 38 MMOL/L (21-32) Anion Gap 3 mmol/L (5-15) 2 mmol/L (5-15) 0 mmol/L (5-15) Blood Urea Nitrogen 16 mg/dL (7-18) 18 mg/dL (7-18) 18 mg/dL (7-18) Creatinine 0.8 MG/DL (0.55-1.30) 0.8 MG/DL (0.55-1.30) 0.9 MG/DL (0.55-1.30) Estimat Glomerular Filtration Rate mL/min (>60) mL/min (>60) mL/min (>60) Glucose Level 121 MG/DL (74-106) 120 MG/DL (74-106) 98 MG/DL (74-106) Calcium Level 8.7 MG/DL (8.5-10.1) 8.5 MG/DL (8.5-10.1) 8.3 MG/DL (8.5-10.1) Total Bilirubin 0.4 MG/DL (0.2-1.0) 0.3 MG/DL (0.2-1.0) Aspartate Amino Transf (AST/SGOT) 34 U/L (15-37) 25 U/L (15-37) Alanine Aminotransferase (ALT/SGPT) 85 U/L (12-78) 54 U/L (12-78) Alkaline Phosphatase 128 U/L (46-116) 105 U/L (46-116) Total Protein 7.1 G/DL (6.4-8.2) 5.9 G/DL (6.4-8.2) Albumin 2.1 G/DL (3.4-5.0) 1.7 G/DL (3.4-5.0) Globulin 5.0 g/dL 4.2 g/dL Albumin/Globulin Ratio 0.4 (1.0-2.7) 0.4 (1.0-2.7) Stool Occult Blood Positive (NEGATIVE) Uric Acid 2.4 MG/DL (2.6-7.2) Phosphorus Level 3.1 MG/DL (2.5-4.9) Magnesium Level 1.8 MG/DL (1.8-2.4) Gamma Glutamyl Transpeptidase 94 U/L (5-85) C-Reactive Protein, Quantitative 7.2 mg/dL (0.00-0.90) Pro-B-Type Natriuretic Peptide 3695 pg/mL (0-125) Height (Feet): 5 Height (Inches): 5.00 Weight (Pounds): 170 Objective Vitals: reviewed Gen: no apparent distress Head: normocephalic EENT: normal ENT inspection Respiratory: other - intubated vent+ Cardiovascular: normal rate Gastrointestinal: gt - c/d/i Rectal: deferred Genitourinary: no CVA tenderness Skin: normal color +++ decub : ++ Beny Fields MD Nov 28, 2018 20:11
[2018-11-28] MEDS: Dyna-Hex 2% Top Sol 2oz TOPIC SCH (20:35)
[2018-11-28] MEDS ORDERED: Tamsulosin 0.4mg cap ORAL SCH (21:00)
[2018-11-28] MEDS: Acetaminophen 650mg/20.3ml GT PRN (21:40)
[2018-11-29] VITALS: BP 154/68
[2018-11-29 04:00] VITALS: BP 154/66
[2018-11-29 04:51] LABS: HEMATOCRIT 27.2 % (42.0-52.0); HEMOGLOBIN 8.6 G/DL (14.2-18.0); MEAN CORPUSCULAR VOLUME 87 FL (80-99); PLATELET COUNT 229 K/UL (150-450); RED BLOOD COUNT 3.14 M/UL (4.70-6.10); RED CELL DISTRIBUTION WIDTH 16.3 % (11.6-14.8)
[2018-11-29 05:11] LABS: WHITE BLOOD COUNT 24.3 K/UL (4.8-10.8)
[2018-11-29 05:20] LABS: ALANINE AMINOTRANSFERASE 46 U/L (12-78); ALBUMIN 1.7 G/DL (3.4-5.0); ALBUMIN/GLOBULIN RATIO 0.4 (1.0-2.7); ALKALINE PHOSPHATASE 107 U/L (46-116); ANION GAP 3 mmol/L (5-15); ASPARTATE AMINO TRANSFERASE 26 U/L (15-37); BILIRUBIN,TOTAL 0.3 MG/DL (0.2-1.0); BLOOD UREA NITROGEN 18 mg/dL (7-18); CALCIUM 8.2 MG/DL (8.5-10.1); CARBON DIOXIDE 35 MMOL/L (21-32); CHLORIDE 110 MMOL/L (98-107); CREATININE 0.8 MG/DL (0.55-1.30); PHOSPHORUS 2.7 MG/DL (2.5-4.9); POTASSIUM 4.2 MMOL/L (3.5-5.1); SODIUM 147 MMOL/L (136-145)
[2018-11-29] MEDS: NovoLOG Insulin Flexpen SUBQ SCH ×4 (06:47→20:41)
[2018-11-29 08:00] VITALS: BP 157/71
[2018-11-29] MEDS: ZyPREXA Zydis 5mg tab GT SCH (08:34)
[2018-11-29] MEDS: Ciprofloxacin 500mg tab GT SCH ×2 (08:34→20:38)
--- NOTE | 2018-11-29 09:53 | Diagnostic Imaging Report ---
Indication: Dyspnea Technique: One view of the chest Comparison: 11/26/2018 Findings: The heart is enlarged. Again demonstrated is bilateral diffuse interstitial and airspace edema. Large left pleural effusion is unchanged. Right pleural effusion may be slightly improved. Tracheostomy remains. Impression: Evidence of slightly improved right pleural effusion. Otherwise little change
--- NOTE | 2018-11-29 10:08 | Nephrology Progress Note ---
Assessment/Plan Problem List: (1) Septic shock Assessment: WBCs rising (2) Ventilator dependence (3) Renal failure (ARF), acute on chronic (4) Prostate enlargement (5) Anemia (6) Hyperosmolality with hypernatremia Assessment Septic Shock Acute renal failure CKD underlying BPH Sever Anemia Chronic trach-Vent DM HypoAlbuminemia HyperNatremia Dementia Troponin elevation Plan WBC kevin and has hematuria ! Patient DNR , but not comfort care Will discuss the plan of care D5W for hyperNatremia now in SDU family agreed to DNR labs reviewed- mag IV as needed avoid Nephrotoxics transfuse as needed crabtree monitor urine out put and renal parameters per orders Subjective ROS Limited/Unobtainable: Yes Objective Objective Last 24 Hour Vital Signs Date Time Temp Pulse Resp B/P (MAP) Pulse Ox O2 Delivery O2 Flow Rate FiO2 11/29/18 08:31 91 22 50 11/29/18 08:00 50 11/29/18 08:00 Mechanical Ventilator 11/29/18 08:00 98.6 94 23 157/71 (99) 95 11/29/18 07:35 70 11/29/18 07:21 79 22 50 11/29/18 05:24 83 23 50 11/29/18 04:00 Mechanical Ventilator 11/29/18 04:00 50 11/29/18 04:00 98.6 82 22 154/66 (95) 94 11/29/18 04:00 82 11/29/18 03:30 84 22 50 11/29/18 01:30 88 22 50 11/29/18 00:00 99.3 82 22 154/68 (96) 96 11/29/18 00:00 82 11/29/18 00:00 Mechanical Ventilator 11/28/18 23:30 90 21 50 11/28/18 22:10 99.3 11/28/18 21:17 91 22 50 11/28/18 20:00 Mechanical Ventilator 11/28/18 20:00 99.7 92 22 152/78 (102) 99 11/28/18 20:00 92 11/28/18 20:00 50 11/28/18 19:30 80 22 60 11/28/18 16:30 82 22 100 Mechanical Ventilator 50 69 20 50 11/28/18 16:00 50 11/28/18 16:00 99.4 96 24 125/50 (75) 98 10/23/19 16:00 Mechanical Ventilator 11/28/18 16:00 102 11/28/18 14:50 81 22 100 Mechanical Ventilator 50 69 20 50 11/28/18 12:33 82 22 100 Mechanical Ventilator 50 69 20 50 11/28/18 12:00 40 11/28/18 12:00 Mechanical Ventilator 11/28/18 12:00 99.2 81 22 154/78 (103) 98 11/28/18 11:45 67 11/28/18 10:59 80 22 97 Mechanical Ventilator 50 87 20 50 Intake and Output 11/28/18 11/29/18 19:00 07:00 Intake Total 1685 ml 1570 ml Output Total 250 ml 200 ml Balance 1435 ml 1370 ml Intake Free Water 120 ml 120 ml IV Total 900 ml 790 ml Tube Feeding 605 ml 660 ml Other 60 ml Output Urine Total 250 ml 200 ml # Bowel Movements 1 2 Laboratory Tests 11/29/18 04:05: White Blood Count 24.3#*H, Red Blood Count 3.14L, Hemoglobin 8.6L, Hematocrit 27.2L, Mean Corpuscular Volume 87, Mean Corpuscular Hemoglobin 27.4, Mean Corpuscular Hemoglobin Concent 31.7L, Red Cell Distribution Width 16.3H, Platelet Count 229, Mean Platelet Volume 7.2, Neutrophils (%) (Auto) , Lymphocytes (%) (Auto) , Monocytes (%) (Auto) , Eosinophils (%) (Auto) , Basophils (%) (Auto) , Differential Total Cells Counted 100, Neutrophils % ( Manual) 86H, Lymphocytes % (Manual) 5L, Monocytes % (Manual) 9, Eosinophils % ( Manual) 0, Basophils % (Manual) 0, Band Neutrophils 0, Platelet Estimate Adequate, Platelet Morphology Normal, Hypochromasia 1+, Anisocytosis 1+, Sodium Level 147H, Potassium Level 4.2, Chloride Level 110H, Carbon Dioxide Level 35H, Anion Gap 3L, Blood Urea Nitrogen 18, Creatinine 0.8, Estimat Glomerular Filtration Rate , Glucose Level 134H, Calcium Level 8.2L, Phosphorus Level 2.7, Magnesium Level 1.7L, Total Bilirubin 0.3, Aspartate Amino Transf (AST/SGOT) 26 , Alanine Aminotransferase (ALT/SGPT) 46, Alkaline Phosphatase 107, C-Reactive Protein, Quantitative 12.4H, Pro-B-Type Natriuretic Peptide 4751H, Total Protein 6.3L, Albumin 1.7L, Globulin 4.6, Albumin/Globulin Ratio 0.4L 11/29/18 08:15: Lactic Acid Level 0.60 Height (Feet): 5 Height (Inches): 5.00 Weight (Pounds): 170 General Appearance: no apparent distress EENT: other - vented Cardiovascular: tachycardia Respiratory/Chest: decreased breath sounds Abdomen: distended Genitourinary/Rectal: other - hematuria Objective no change Randolph Fernandes MD Nov 29, 2018 10:08
--- NOTE | 2018-11-29 10:40 | General Progress Note ---
Assessment/Plan Problem List: (1) GIB (gastrointestinal bleeding) ICD Codes: K92.2 - Gastrointestinal hemorrhage, unspecified SNOMED: 84129920 (2) PEG (percutaneous endoscopic gastrostomy) status ICD Codes: Z93.1 - Gastrostomy status SNOMED: 179054435, 418855003 (3) Chronic renal disease ICD Codes: N18.9 - Chronic kidney disease, unspecified SNOMED: 863917516 (4) Prostate enlargement ICD Codes: N40.0 - Benign prostatic hyperplasia without lower urinary tract symptoms SNOMED: 540123472 (5) Anemia ICD Codes: D64.9 - Anemia, unspecified SNOMED: 862052269 (6) Septic shock ICD Codes: A41.9 - Sepsis, unspecified organism; R65.21 - Severe sepsis with septic shock SNOMED: 85778653 (7) Gastrostomy tube dependent ICD Codes: Z93.1 - Gastrostomy status SNOMED: 322377955, 203666461 Status: stable, unchanged Assessment/Plan: ppi prn blood transfusion abx per ID now off pressors GTF EGD on hold given stable H&H and patient's poor medical condition Subjective ROS Limited/Unobtainable: No Allergies: Coded Allergies: TERAZOSIN (Verified Allergy, Unknown, 10/27/17) Objective Last 24 Hour Vital Signs Date Time Temp Pulse Resp B/P (MAP) Pulse Ox O2 Delivery O2 Flow Rate FiO2 11/29/18 08:31 91 22 50 11/29/18 08:00 50 11/29/18 08:00 Mechanical Ventilator 11/29/18 08:00 98.6 94 23 157/71 (99) 95 11/29/18 07:35 70 11/29/18 07:21 79 22 50 11/29/18 05:24 83 23 50 11/29/18 04:00 Mechanical Ventilator 11/29/18 04:00 50 11/29/18 04:00 98.6 82 22 154/66 (95) 94 11/29/18 04:00 82 11/29/18 03:30 84 22 50 11/29/18 01:30 88 22 50 11/29/18 00:00 99.3 82 22 154/68 (96) 96 11/29/18 00:00 82 11/29/18 00:00 Mechanical Ventilator 11/28/18 23:30 90 21 50 11/28/18 22:10 99.3 11/28/18 21:17 91 22 50 11/28/18 20:00 Mechanical Ventilator 11/28/18 20:00 99.7 92 22 152/78 (102) 99 11/28/18 20:00 92 11/28/18 20:00 50 11/28/18 19:30 80 22 60 11/28/18 16:30 82 22 100 Mechanical Ventilator 50 69 20 50 11/28/18 16:00 50 11/28/18 16:00 99.4 96 24 125/50 (75) 98 11/28/18 16:00 Mechanical Ventilator 11/28/18 16:00 102 11/28/18 14:50 81 22 100 Mechanical Ventilator 50 69 20 50 11/28/18 12:33 82 22 100 Mechanical Ventilator 50 69 20 50 11/28/18 12:00 40 11/28/18 12:00 Mechanical Ventilator 11/28/18 12:00 99.2 81 22 154/78 (103) 98 11/28/18 11:45 67 11/28/18 10:59 80 22 97 Mechanical Ventilator 50 87 20 50 Intake and Output 11/28/18 11/29/18 19:00 07:00 Intake Total 1685 ml 1570 ml Output Total 250 ml 200 ml Balance 1435 ml 1370 ml Intake Free Water 120 ml 120 ml IV Total 900 ml 790 ml Tube Feeding 605 ml 660 ml Other 60 ml Output Urine Total 250 ml 200 ml # Bowel Movements 1 2 Laboratory Tests 11/29/18 04:05: White Blood Count 24.3#*H, Red Blood Count 3.14L, Hemoglobin 8.6L, Hematocrit 27.2L, Mean Corpuscular Volume 87, Mean Corpuscular Hemoglobin 27.4, Mean Corpuscular Hemoglobin Concent 31.7L, Red Cell Distribution Width 16.3H, Platelet Count 229, Mean Platelet Volume 7.2, Neutrophils (%) (Auto) , Lymphocytes (%) (Auto) , Monocytes (%) (Auto) , Eosinophils (%) (Auto) , Basophils (%) (Auto) , Differential Total Cells Counted 100, Neutrophils % ( Manual) 86H, Lymphocytes % (Manual) 5L, Monocytes % (Manual) 9, Eosinophils % ( Manual) 0, Basophils % (Manual) 0, Band Neutrophils 0, Platelet Estimate Adequate, Platelet Morphology Normal, Hypochromasia 1+, Anisocytosis 1+, Sodium Level 147H, Potassium Level 4.2, Chloride Level 110H, Carbon Dioxide Level 35H, Anion Gap 3L, Blood Urea Nitrogen 18, Creatinine 0.8, Estimat Glomerular Filtration Rate , Glucose Level 134H, Calcium Level 8.2L, Phosphorus Level 2.7, Magnesium Level 1.7L, Total Bilirubin 0.3, Aspartate Amino Transf (AST/SGOT) 26 , Alanine Aminotransferase (ALT/SGPT) 46, Alkaline Phosphatase 107, C-Reactive Protein, Quantitative 12.4H, Pro-B-Type Natriuretic Peptide 4751H, Total Protein 6.3L, Albumin 1.7L, Globulin 4.6, Albumin/Globulin Ratio 0.4L 11/29/18 08:15: Lactic Acid Level 0.60 Height (Feet): 5 Height (Inches): 5.00 Weight (Pounds): 170 General Appearance: no apparent distress EENT: normal ENT inspection Neck: supple Cardiovascular: normal rate Respiratory/Chest: decreased breath sounds Abdomen: normal bowel sounds, non tender, soft Extremities: non-tender Juan Coronel MD Nov 29, 2018 10:40
--- NOTE | 2018-11-29 10:58 | Cardiac Electrophysiology PN ---
Assessment/Plan Assessment/Plan 1. S/P Septic shock with white count of 50,000 and lactic acid of 6. On IV antibiotic and IV fluid . WBC was 20k on 11/22 and is down to 13k on Abx. 2. S/P multiple episodes of asystole with HR down to 10 and pauses of more than 10 seconds earlier today . Off any MCGEE or AVN blockers. Needs permanent pacer implantation. Patient is full code. DW Son Mr. Faraz Erickson on 11/23/18 at [phone]. Family refusing the pacer. Keep on prn Atropine Echo Nl EF. 3. Congestive heart failure with BNP of more than 17,000. BNP 3000 range 4. Troponin elevation, likely due to renal failure and anemia and septic shock. The levels are flat. EKG does not show any ST elevation. 5. S/P Acute renal failure. Resolved BUN 15 and Cr now 0.8 6. Hypernatremia. On D5W per Dr Fernandes 7. Ventilator-dependent respiratory failure, status post tracheostomy. 8. Dysphagia, status post PEG placement. 9. Profound anemia, hemoglobin of 6.5, rule out GI bleed. S/P blood transfusion. S/P EGD 10. Bleeding from Turner. FU Dr César CHOWDARY RN Subjective Subjective DNR and family refusing Pacer implant. On SDU. Hardy down to 20s again Objective Last 24 Hour Vital Signs Date Time Temp Pulse Resp B/P (MAP) Pulse Ox O2 Delivery O2 Flow Rate FiO2 11/29/18 08:31 91 22 50 11/29/18 08:00 50 11/29/18 08:00 Mechanical Ventilator 11/29/18 08:00 98.6 94 23 157/71 (99) 95 11/29/18 07:35 70 11/29/18 07:21 79 22 50 11/29/18 05:24 83 23 50 11/29/18 04:00 Mechanical Ventilator 11/29/18 04:00 50 11/29/18 04:00 98.6 82 22 154/66 (95) 94 11/29/18 04:00 82 11/29/18 03:30 84 22 50 11/29/18 01:30 88 22 50 11/29/18 00:00 99.3 82 22 154/68 (96) 96 11/29/18 00:00 82 11/29/18 00:00 Mechanical Ventilator 11/28/18 23:30 90 21 50 11/28/18 22:10 99.3 11/28/18 21:17 91 22 50 11/28/18 20:00 Mechanical Ventilator 11/28/18 20:00 99.7 92 22 152/78 (102) 99 11/28/18 20:00 92 11/28/18 20:00 50 11/28/18 19:30 80 22 60 11/28/18 16:30 82 22 100 Mechanical Ventilator 50 69 20 50 11/28/18 16:00 50 11/28/18 16:00 99.4 96 24 125/50 (75) 98 11/28/18 16:00 Mechanical Ventilator 11/28/18 16:00 102 11/28/18 14:50 81 22 100 Mechanical Ventilator 50 69 20 50 11/28/18 12:33 82 22 100 Mechanical Ventilator 50 69 20 50 11/28/18 12:00 40 11/28/18 12:00 Mechanical Ventilator 11/28/18 12:00 99.2 81 22 154/78 (103) 98 11/28/18 11:45 67 11/28/18 10:59 80 22 97 Mechanical Ventilator 50 87 20 50 Intake and Output 11/28/18 11/29/18 19:00 07:00 Intake Total 1685 ml 1570 ml Output Total 250 ml 200 ml Balance 1435 ml 1370 ml Intake Free Water 120 ml 120 ml IV Total 900 ml 790 ml Tube Feeding 605 ml 660 ml Other 60 ml Output Urine Total 250 ml 200 ml # Bowel Movements 1 2 Laboratory Tests Test 11/29/18 04:05 11/29/18 08:15 White Blood Count 24.3 K/UL (4.8-10.8) #*H Red Blood Count 3.14 M/UL (4.70-6.10) L Hemoglobin 8.6 G/DL (14.2-18.0) L Hematocrit 27.2 % (42.0-52.0) L Mean Corpuscular Volume 87 FL (80-99) Mean Corpuscular Hemoglobin 27.4 PG (27.0-31.0) Mean Corpuscular Hemoglobin Concent 31.7 G/DL (32.0-36.0) L Red Cell Distribution Width 16.3 % (11.6-14.8) H Platelet Count 229 K/UL (150-450) Mean Platelet Volume 7.2 FL (6.5-10.1) Neutrophils (%) (Auto) % (45.0-75.0) Lymphocytes (%) (Auto) % (20.0-45.0) Monocytes (%) (Auto) % (1.0-10.0) Eosinophils (%) (Auto) % (0.0-3.0) Basophils (%) (Auto) % (0.0-2.0) Differential Total Cells Counted 100 Neutrophils % (Manual) 86 % (45-75) H Lymphocytes % (Manual) 5 % (20-45) L Monocytes % (Manual) 9 % (1-10) Eosinophils % (Manual) 0 % (0-3) Basophils % (Manual) 0 % (0-2) Band Neutrophils 0 % (0-8) Platelet Estimate Adequate Platelet Morphology Normal Hypochromasia 1+ Anisocytosis 1+ Sodium Level 147 MMOL/L (136-145) H Potassium Level 4.2 MMOL/L (3.5-5.1) Chloride Level 110 MMOL/L (98-107) H Carbon Dioxide Level 35 MMOL/L (21-32) H Anion Gap 3 mmol/L (5-15) L Blood Urea Nitrogen 18 mg/dL (7-18) Creatinine 0.8 MG/DL (0.55-1.30) Estimat Glomerular Filtration Rate mL/min (>60) Glucose Level 134 MG/DL (74-106) H Calcium Level 8.2 MG/DL (8.5-10.1) L Phosphorus Level 2.7 MG/DL (2.5-4.9) Magnesium Level 1.7 MG/DL (1.8-2.4) L Total Bilirubin 0.3 MG/DL (0.2-1.0) Aspartate Amino Transf (AST/SGOT) 26 U/L (15-37) Alanine Aminotransferase (ALT/SGPT) 46 U/L (12-78) Alkaline Phosphatase 107 U/L (46-116) C-Reactive Protein, Quantitative 12.4 mg/dL (0.00-0.90) H Pro-B-Type Natriuretic Peptide 4751 pg/mL (0-125) H Total Protein 6.3 G/DL (6.4-8.2) L Albumin 1.7 G/DL (3.4-5.0) L Globulin 4.6 g/dL Albumin/Globulin Ratio 0.4 (1.0-2.7) L Lactic Acid Level 0.60 mmol/L (0.4-2.0) Microbiology Date/Time Source Procedure Growth Status 11/26/18 20:00 Sputum Expectorated Gram Stain - Final Resulted 11/26/18 20:00 Sputum Culture - Preliminary Klebsiella Pneumoniae Pseudomonas Aeruginosa - Mdr Gram Negative Bacillus 3 Resulted Objective HEAD AND NECK: Tracheostomy intact. LUNGS: Coarse rhonchi.Decreased breath sounds CARDIOVASCULAR: Irregular irregular S1 and S2 with no gallop. ABDOMEN: Status post G-tube, distended. EXTREMITIES: Reveal 1+ edema. Luke Prather MD Nov 29, 2018 10:58
--- NOTE | 2018-11-29 11:05 | Pulmonology Progress Note ---
Assessment/Plan Assessment/Plan Pulmonary Progress Note Assessment/Plan Impression: Patient with ho Pneumonia Ventilator dependant respiratory failure, CXR improving Severe sepsis - improved Leucocytosis NSTEMI Anemia Dysphagia s/p G tube Chronic wounds Dementia Organic Brain Syndrome Diabetes Chronic renal disease BPH Penile wound CHF H/o Hypertension severe Protein Calorie Malnutrition Plan antibiotic regimen noted monitor blood pressure HHN Q4 and monitor secretions and suction PRN on full vent support-AC- no wean DNAR multiorgan disease with poor prognosis monitor oxygen needs- and adjust monitor labs DVT and PUD prophylaxis Gtube feeds as able; monitor residuals and reflux aspiration monitor residuals for change will need tank terminal gauger care medications/laboratory data/nursing notes reviewed in detail note reviewed and edited care discussed with RN and RT Interval Events: care noted vitals stable poor LOC f ROS Limited/Unobtainable: Yes Condition: critical EKG Rhythm: Sinus Rhythm Residuals: minimal Tube Feeding Tolerated: yes Vital Signs Noted Labs Noted Objective: WDWN NAD on vent and poorly responsive reduced breath sounds bilaterally with noted rhonchi [id number] without MRG NABS nontender no HSM; GT; non distended no CC mild edema nonfocal reduced LOC skin noted reviewed and edited Subjective ROS Limited/Unobtainable: No Allergies: Coded Allergies: TERAZOSIN (Verified Allergy, Unknown, 10/27/17) Objective Last 24 Hour Vital Signs Date Time Temp Pulse Resp B/P (MAP) Pulse Ox O2 Delivery O2 Flow Rate FiO2 11/29/18 08:31 91 22 50 11/29/18 08:00 50 11/29/18 08:00 Mechanical Ventilator 11/29/18 08:00 98.6 94 23 157/71 (99) 95 11/29/18 07:35 70 11/29/18 07:21 79 22 50 11/29/18 05:24 83 23 50 11/29/18 04:00 Mechanical Ventilator 11/29/18 04:00 50 11/29/18 04:00 98.6 82 22 154/66 (95) 94 11/29/18 04:00 82 11/29/18 03:30 84 22 50 11/29/18 01:30 88 22 50 11/29/18 00:00 99.3 82 22 154/68 (96) 96 11/29/18 00:00 82 11/29/18 00:00 Mechanical Ventilator 11/28/18 23:30 90 21 50 11/28/18 22:10 99.3 11/28/18 21:17 91 22 50 11/28/18 20:00 Mechanical Ventilator 11/28/18 20:00 99.7 92 22 152/78 (102) 99 11/28/18 20:00 92 11/28/18 20:00 50 11/28/18 19:30 80 22 60 11/28/18 16:30 82 22 100 Mechanical Ventilator 50 69 20 50 11/28/18 16:00 50 11/28/18 16:00 99.4 96 24 125/50 (75) 98 11/28/18 16:00 Mechanical Ventilator 11/28/18 16:00 102 11/28/18 14:50 81 22 100 Mechanical Ventilator 50 69 20 50 11/28/18 12:33 82 22 100 Mechanical Ventilator 50 69 20 50 11/28/18 12:00 40 11/28/18 12:00 Mechanical Ventilator 11/28/18 12:00 99.2 81 22 154/78 (103) 98 11/28/18 11:45 67 Intake and Output 11/28/18 11/29/18 19:00 07:00 Intake Total 1685 ml 1570 ml Output Total 250 ml 200 ml Balance 1435 ml 1370 ml Intake Free Water 120 ml 120 ml IV Total 900 ml 790 ml Tube Feeding 605 ml 660 ml Other 60 ml Output Urine Total 250 ml 200 ml # Bowel Movements 1 2 Microbiology Date/Time Source Procedure Growth Status 11/26/18 20:00 Sputum Expectorated Gram Stain - Final Resulted 11/26/18 20:00 Sputum Culture - Preliminary Klebsiella Pneumoniae Pseudomonas Aeruginosa - Mdr Gram Negative Bacillus 3 Resulted Laboratory Tests 11/29/18 04:05: White Blood Count 24.3#*H, Red Blood Count 3.14L, Hemoglobin 8.6L, Hematocrit 27.2L, Mean Corpuscular Volume 87, Mean Corpuscular Hemoglobin 27.4, Mean Corpuscular Hemoglobin Concent 31.7L, Red Cell Distribution Width 16.3H, Platelet Count 229, Mean Platelet Volume 7.2, Neutrophils (%) (Auto) , Lymphocytes (%) (Auto) , Monocytes (%) (Auto) , Eosinophils (%) (Auto) , Basophils (%) (Auto) , Differential Total Cells Counted 100, Neutrophils % ( Manual) 86H, Lymphocytes % (Manual) 5L, Monocytes % (Manual) 9, Eosinophils % ( Manual) 0, Basophils % (Manual) 0, Band Neutrophils 0, Platelet Estimate Adequate, Platelet Morphology Normal, Hypochromasia 1+, Anisocytosis 1+, Sodium Level 147H, Potassium Level 4.2, Chloride Level 110H, Carbon Dioxide Level 35H, Anion Gap 3L, Blood Urea Nitrogen 18, Creatinine 0.8, Estimat Glomerular Filtration Rate , Glucose Level 134H, Calcium Level 8.2L, Phosphorus Level 2.7, Magnesium Level 1.7L, Total Bilirubin 0.3, Aspartate Amino Transf (AST/SGOT) 26 , Alanine Aminotransferase (ALT/SGPT) 46, Alkaline Phosphatase 107, C-Reactive Protein, Quantitative 12.4H, Pro-B-Type Natriuretic Peptide 4751H, Total Protein 6.3L, Albumin 1.7L, Globulin 4.6, Albumin/Globulin Ratio 0.4L 11/29/18 08:15: Lactic Acid Level 0.60 Current Medications Medications (Trade) Dose Ordered Sig/Ruthie Route PRN Reason Start Time Stop Time Status Last Admin Dose Admin Acetaminophen (Tylenol) 650 mg Q6H PRN GT Mild Pain/Temp > 100.5 11/28/18 06:05 12/15/18 06:04 11/28/18 21:40 Atropine Sulfate (Atropine 0.4mg/ ml) 0.4 mg Q5M PRN IVP HR<30 for 30 seconds 11/28/18 06:09 12/28/18 06:08 Bisacodyl (Dulcolax) 10 mg DAILYPRN PRN RECTAL Constipation 11/28/18 06:05 12/18/18 06:04 Chlorhexidine Gluconate (Rachael-Hex 2%) 1 applic DAILY@2000 TOPIC 11/28/18 20:00 12/15/18 19:59 11/28/18 20:35 Ciprofloxacin (Cipro 500mg tab) 500 mg EVERY 12 HOURS GT 11/29/18 09:00 12/06/18 08:59 11/29/18 08:34 Dextrose 1,000 ml @ 75 mls/hr [id number] IV 11/29/18 02:00 12/29/18 01:59 11/29/18 02:28 Dextrose (Dextrose 50%) 25 ml Q30M PRN IV Hypoglycemia 11/28/18 06:15 12/15/18 09:38 Dextrose (Dextrose 50%) 50 ml Q30M PRN IV Hypoglycemia 11/28/18 06:15 12/15/18 05:44 Insulin Aspart (NovoLOG) BEFORE MEALS AND HS SUBQ 11/28/18 06:30 12/15/18 06:29 11/29/18 06:47 Lansoprazole (Prevacid) 30 mg BID GT 11/28/18 18:00 12/28/18 17:59 11/29/18 08:34 Lorazepam (Ativan 2mg/ml 1ml) 0.5 mg Q2H PRN IV For Anxiety 11/28/18 06:45 11/30/18 10:44 Magnesium Sulfate 100 ml @ 100 mls/hr Q1H IVPB 11/29/18 10:15 11/29/18 12:14 11/29/18 10:21 Olanzapine (ZyPREXA Zydis) 7.5 mg DAILY GT 11/28/18 09:00 12/15/18 08:59 11/29/18 08:34 Booker Baumann MD Nov 29, 2018 11:05
[2018-11-29 12:00] VITALS: BP 149/80
--- NOTE | 2018-11-29 15:59 | Infectious Diseases Prog Note ---
Assessment/Plan Assessment/Plan IMPRESSION: Sepsis, Pyuria/ UTI treated Pneumonia with MDR pseudomonas & Klebsiella BPH, ventilator-dependent respiratory failure Leukemoid reaction,resolved Acute renal failure, improving Diabetes mellitus, anemia, hypoxemic respiratory failure, dementia. 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 Phimosis/ paraphimosis Urethral stricture Asystole, cardiac pause DNR RECOMMENDATION: Started on Cipro Will add Colistin inhaler Will f/u Sputum culture Family refused pacemaker placement Poor prognosis Subjective ROS Limited/Unobtainable: Yes Respiratory: Reports: shortness of breath Allergies: Coded Allergies: TERAZOSIN (Verified Allergy, Unknown, 10/27/17) Objective Vital Signs Last 24 Hour Vital Signs Date Time Temp Pulse Resp B/P (MAP) Pulse Ox O2 Delivery O2 Flow Rate FiO2 11/29/18 14:51 89 25 40 11/29/18 13:16 67 22 40 11/29/18 12:00 40 11/29/18 12:00 98.7 87 24 149/80 (103) 92 11/29/18 12:00 Mechanical Ventilator 11/29/18 11:37 85 11/29/18 10:39 64 22 40 11/29/18 08:31 91 22 50 11/29/18 08:00 50 11/29/18 08:00 Mechanical Ventilator 11/29/18 08:00 98.6 94 23 157/71 (99) 95 11/29/18 07:35 70 11/29/18 07:21 79 22 50 11/29/18 05:24 83 23 50 11/29/18 04:00 Mechanical Ventilator 11/29/18 04:00 50 11/29/18 04:00 98.6 82 22 154/66 (95) 94 11/29/18 04:00 82 11/29/18 03:30 84 22 50 11/29/18 01:30 88 22 50 11/29/18 00:00 99.3 82 22 154/68 (96) 96 11/29/18 00:00 82 11/29/18 00:00 Mechanical Ventilator 11/28/18 23:30 90 21 50 11/28/18 22:10 99.3 11/28/18 21:17 91 22 50 11/28/18 20:00 Mechanical Ventilator 11/28/18 20:00 99.7 92 22 152/78 (102) 99 11/28/18 20:00 92 11/28/18 20:00 50 11/28/18 19:30 80 22 60 11/28/18 16:30 82 22 100 Mechanical Ventilator 50 69 20 50 11/28/18 16:00 50 11/28/18 16:00 99.4 96 24 125/50 (75) 98 11/28/18 16:00 Mechanical Ventilator 11/28/18 16:00 102 Height (Feet): 5 Height (Inches): 5.00 Weight (Pounds): 170 HEENT: status post trach Respiratory/Chest: decreased breath sounds, other - tachpeic Cardiovascular: normal rate, other - PICC line Abdomen: soft, non tender, other - GT feeding Genitourinary: other - Turner catheter, hematuria Extremities: other - Generalized edema Skin: ulcers Neurologic/Psychiatric: aphasia Microbiology Date/Time Source Procedure Growth Status 11/26/18 20:00 Sputum Expectorated Gram Stain - Final Resulted 11/26/18 20:00 Sputum Culture - Preliminary Klebsiella Pneumoniae Pseudomonas Aeruginosa - Mdr Gram Negative Bacillus 3 Resulted Laboratory Tests Test 11/29/18 04:05 11/29/18 08:15 White Blood Count 24.3 K/UL (4.8-10.8) #*H Red Blood Count 3.14 M/UL (4.70-6.10) L Hemoglobin 8.6 G/DL (14.2-18.0) L Hematocrit 27.2 % (42.0-52.0) L Mean Corpuscular Volume 87 FL (80-99) Mean Corpuscular Hemoglobin 27.4 PG (27.0-31.0) Mean Corpuscular Hemoglobin Concent 31.7 G/DL (32.0-36.0) L Red Cell Distribution Width 16.3 % (11.6-14.8) H Platelet Count 229 K/UL (150-450) Mean Platelet Volume 7.2 FL (6.5-10.1) Neutrophils (%) (Auto) % (45.0-75.0) Lymphocytes (%) (Auto) % (20.0-45.0) Monocytes (%) (Auto) % (1.0-10.0) Eosinophils (%) (Auto) % (0.0-3.0) Basophils (%) (Auto) % (0.0-2.0) Differential Total Cells Counted 100 Neutrophils % (Manual) 86 % (45-75) H Lymphocytes % (Manual) 5 % (20-45) L Monocytes % (Manual) 9 % (1-10) Eosinophils % (Manual) 0 % (0-3) Basophils % (Manual) 0 % (0-2) Band Neutrophils 0 % (0-8) Platelet Estimate Adequate Platelet Morphology Normal Hypochromasia 1+ Anisocytosis 1+ Sodium Level 147 MMOL/L (136-145) H Potassium Level 4.2 MMOL/L (3.5-5.1) Chloride Level 110 MMOL/L (98-107) H Carbon Dioxide Level 35 MMOL/L (21-32) H Anion Gap 3 mmol/L (5-15) L Blood Urea Nitrogen 18 mg/dL (7-18) Creatinine 0.8 MG/DL (0.55-1.30) Estimat Glomerular Filtration Rate mL/min (>60) Glucose Level 134 MG/DL (74-106) H Calcium Level 8.2 MG/DL (8.5-10.1) L Phosphorus Level 2.7 MG/DL (2.5-4.9) Magnesium Level 1.7 MG/DL (1.8-2.4) L Total Bilirubin 0.3 MG/DL (0.2-1.0) Aspartate Amino Transf (AST/SGOT) 26 U/L (15-37) Alanine Aminotransferase (ALT/SGPT) 46 U/L (12-78) Alkaline Phosphatase 107 U/L (46-116) C-Reactive Protein, Quantitative 12.4 mg/dL (0.00-0.90) H Pro-B-Type Natriuretic Peptide 4751 pg/mL (0-125) H Total Protein 6.3 G/DL (6.4-8.2) L Albumin 1.7 G/DL (3.4-5.0) L Globulin 4.6 g/dL Albumin/Globulin Ratio 0.4 (1.0-2.7) L Lactic Acid Level 0.60 mmol/L (0.4-2.0) Current Medications Medications (Trade) Dose Ordered Sig/Ruthie Route PRN Reason Start Time Stop Time Status Last Admin Dose Admin Acetaminophen (Tylenol) 650 mg Q6H PRN GT Mild Pain/Temp > 100.5 11/28/18 06:05 12/15/18 06:04 11/28/18 21:40 Atropine Sulfate (Atropine 0.4mg/ ml) 0.4 mg Q5M PRN IVP HR<30 for 30 seconds 11/28/18 06:09 12/28/18 06:08 Bisacodyl (Dulcolax) 10 mg DAILYPRN PRN RECTAL Constipation 11/28/18 06:05 12/18/18 06:04 Chlorhexidine Gluconate (Rachael-Hex 2%) 1 applic DAILY@2000 TOPIC 11/28/18 20:00 12/15/18 19:59 11/28/18 20:35 Ciprofloxacin (Cipro 500mg tab) 500 mg EVERY 12 HOURS GT 11/29/18 09:00 12/06/18 08:59 11/29/18 08:34 Dextrose 1,000 ml @ 75 mls/hr [id number] IV 11/29/18 02:00 12/29/18 01:59 11/29/18 02:28 Dextrose (Dextrose 50%) 25 ml Q30M PRN IV Hypoglycemia 11/28/18 06:15 12/15/18 09:38 Dextrose (Dextrose 50%) 50 ml Q30M PRN IV Hypoglycemia 11/28/18 06:15 12/15/18 05:44 Insulin Aspart (NovoLOG) BEFORE MEALS AND HS SUBQ 11/28/18 06:30 12/15/18 06:29 11/29/18 11:55 Lansoprazole (Prevacid) 30 mg BID GT 11/28/18 18:00 12/28/18 17:59 11/29/18 08:34 Lorazepam (Ativan 2mg/ml 1ml) 0.5 mg Q2H PRN IV For Anxiety 11/29/18 13:51 12/06/18 13:50 Olanzapine (ZyPREXA Zydis) 7.5 mg DAILY GT 11/28/18 09:00 12/15/18 08:59 11/29/18 08:34 Anam Cruz MD Nov 29, 2018 15:59
[2018-11-29 16:00] VITALS: BP 156/78
--- NOTE | 2018-11-29 17:36 | Surgery Progress Note ---
Surgery Progress Note Subjective Additional Comments no acute events Objective Last 24 Hour Vital Signs Date Time Temp Pulse Resp B/P (MAP) Pulse Ox O2 Delivery O2 Flow Rate FiO2 11/29/18 16:51 109 22 40 11/29/18 16:00 98.0 83 24 156/78 (104) 95 11/29/18 16:00 40 11/29/18 16:00 86 11/29/18 16:00 Mechanical Ventilator 11/29/18 14:51 89 25 40 11/29/18 13:16 67 22 40 11/29/18 12:00 40 11/29/18 12:00 98.7 87 24 149/80 (103) 92 11/29/18 12:00 Mechanical Ventilator 11/29/18 11:37 85 11/29/18 10:39 64 22 40 11/29/18 08:31 91 22 50 11/29/18 08:00 50 11/29/18 08:00 Mechanical Ventilator 11/29/18 08:00 98.6 94 23 157/71 (99) 95 11/29/18 07:35 70 11/29/18 07:21 79 22 50 11/29/18 05:24 83 23 50 11/29/18 04:00 Mechanical Ventilator 11/29/18 04:00 50 11/29/18 04:00 98.6 82 22 154/66 (95) 94 11/29/18 04:00 82 11/29/18 03:30 84 22 50 11/29/18 01:30 88 22 50 11/29/18 00:00 99.3 82 22 154/68 (96) 96 11/29/18 00:00 82 11/29/18 00:00 Mechanical Ventilator 11/28/18 23:30 90 21 50 11/28/18 22:10 99.3 11/28/18 21:17 91 22 50 11/28/18 20:00 Mechanical Ventilator 11/28/18 20:00 99.7 92 22 152/78 (102) 99 11/28/18 20:00 92 11/28/18 20:00 50 11/28/18 19:30 80 22 60 I&O Intake and Output 11/28/18 11/29/18 18:59 06:59 Intake Total 1740 ml 1515 ml Output Total 250 ml 200 ml Balance 1490 ml 1315 ml Intake Free Water 120 ml 120 ml IV Total 900 ml 790 ml Tube Feeding 660 ml 605 ml Other 60 ml Output Urine Total 250 ml 200 ml # Bowel Movements 1 2 Dressing: saturated Wound: other Drains: other Cardiovascular: RSR Respiratory: decreased breath sounds Abdomen: soft, present bowel sounds Extremities: no cyanosis, other Laboratory Tests Test 11/29/18 04:05 11/29/18 08:15 White Blood Count 24.3 K/UL (4.8-10.8) #*H Red Blood Count 3.14 M/UL (4.70-6.10) L Hemoglobin 8.6 G/DL (14.2-18.0) L Hematocrit 27.2 % (42.0-52.0) L Mean Corpuscular Volume 87 FL (80-99) Mean Corpuscular Hemoglobin 27.4 PG (27.0-31.0) Mean Corpuscular Hemoglobin Concent 31.7 G/DL (32.0-36.0) L Red Cell Distribution Width 16.3 % (11.6-14.8) H Platelet Count 229 K/UL (150-450) Mean Platelet Volume 7.2 FL (6.5-10.1) Neutrophils (%) (Auto) % (45.0-75.0) Lymphocytes (%) (Auto) % (20.0-45.0) Monocytes (%) (Auto) % (1.0-10.0) Eosinophils (%) (Auto) % (0.0-3.0) Basophils (%) (Auto) % (0.0-2.0) Differential Total Cells Counted 100 Neutrophils % (Manual) 86 % (45-75) H Lymphocytes % (Manual) 5 % (20-45) L Monocytes % (Manual) 9 % (1-10) Eosinophils % (Manual) 0 % (0-3) Basophils % (Manual) 0 % (0-2) Band Neutrophils 0 % (0-8) Platelet Estimate Adequate Platelet Morphology Normal Hypochromasia 1+ Anisocytosis 1+ Sodium Level 147 MMOL/L (136-145) H Potassium Level 4.2 MMOL/L (3.5-5.1) Chloride Level 110 MMOL/L (98-107) H Carbon Dioxide Level 35 MMOL/L (21-32) H Anion Gap 3 mmol/L (5-15) L Blood Urea Nitrogen 18 mg/dL (7-18) Creatinine 0.8 MG/DL (0.55-1.30) Estimat Glomerular Filtration Rate mL/min (>60) Glucose Level 134 MG/DL (74-106) H Calcium Level 8.2 MG/DL (8.5-10.1) L Phosphorus Level 2.7 MG/DL (2.5-4.9) Magnesium Level 1.7 MG/DL (1.8-2.4) L Total Bilirubin 0.3 MG/DL (0.2-1.0) Aspartate Amino Transf (AST/SGOT) 26 U/L (15-37) Alanine Aminotransferase (ALT/SGPT) 46 U/L (12-78) Alkaline Phosphatase 107 U/L (46-116) C-Reactive Protein, Quantitative 12.4 mg/dL (0.00-0.90) H Pro-B-Type Natriuretic Peptide 4751 pg/mL (0-125) H Total Protein 6.3 G/DL (6.4-8.2) L Albumin 1.7 G/DL (3.4-5.0) L Globulin 4.6 g/dL Albumin/Globulin Ratio 0.4 (1.0-2.7) L Lactic Acid Level 0.60 mmol/L (0.4-2.0) Plan Problems: (1) Severe sepsis Assessment & Plan: leukocytosis, anemia, lactic acidosis, fevers IV Abx imaging noted and reviewed US with no stones or dilated ducts elevated lft's likely due to liver disease exam as below cont abx trend labs leave crabtree for a few weeks thank you will follow with recs Findings: Exam is somewhat limited, due to gastrostomy tube and overlying bowel gas limiting visualization of the abdominal aorta Gallbladder is unremarkable, without stones, wall thickening, nor pericholecystic fluid. Sonographic Carl's sign is negative. Common bile duct measures 4 mm in diameter. No intrahepatic biliary ductal dilatation. Liver demonstrates normal echogenicity, no focal abnormality. It demonstrates slight surface nodularity. It is enlarged. There is a 1 cm cyst which appears adjacent to the gallbladder wall. This is probably a small exophytic hepatic cyst. Portal vein and hepatic veins are patent. Pancreas is unremarkable. Spleen is unremarkable. Left kidney measures 9.2 cm in length. Right kidney measures 10.2 cm length. Both kidneys demonstrate normal echogenicity. There is no hydronephrosis. Both kidneys demonstrate cysts. . Abdominal aorta is partially obscured by bowel gas, visualized portions are non-aneurysmal . Impression: Negative for gallstones or dilated bile ducts Hepatic surface nodularity, may indicate early cirrhotic changes Hepatomegaly Incidental finding bilateral renal cysts (2) Malnutrition Assessment & Plan: DAILY ESTIMATED NEEDS: Needs based on Critical care, sepsis 71.8 kg 22-30 kcals/kg 1920-5512 total kcals 1.2-2 g protein/kg 86- 144 g total protein 25-30 mL/kg 1795- 2154 total fluid mLs NUTRITION DIAGNOSIS: * Swallowing difficulty R/T respiratory status and dysphagia as evidenced by pt is vent dep, on TF. * Altered nutrition related lab values r/t sepsis, clinical status, h/o Diabetes as evidenced by critically elev WBC (47.2), low Hgb (6.6), elev BNP, low BP (96/41), BG 191, POC 179. CURRENT TF: Jevity 1.2 @ 70mL/hr x 20hr - NOW NPO ENTERAL NUTRITION RECOMMENDATIONS: Vital 1.2 @55mL/hr x24 hrs to provide 1320mL, 1584kcal, 99g pro, 1071mL free H2O * As medically appropriate to feed, rec TF change to VITAL 1.2 for critical care. * Start Vital 1,2, @25mL, advance as tolerated 10ml/hr q4-6 hrs to goal * HOB over 30 degrees/ water flush per MD --- Low Hgb (6.6), NPO per GI-> rec trophic feeds when appropriate if pt remains hypotensive. ADDITIONAL RECOMMENDATIONS: * Per SNF: HT 68 inches WT 158 lbs + Daily calibrated bed scale wts * Change TF to Vital 1.2, as medically able to feed * Monitor lytes (replete as needed) * F/up w/ WC eval . (3) Sacral decubitus ulcer Assessment & Plan: Pt presented on admission with contractures and multiple pressure injuries. Partially opened DTPI L buttocks. Base of wound moist - viable with surrounding dark and fluctuant borders.(L)1.2cm x (W)1cm. Small amt of sanguineous exudate noted. No odor noted. Hyperpigmentation noted to sacrum. Historical scar from previous wound noted to L trochanter. Penile head retracted within foreskin and small wound noted within folds of foreskin. Wound is moist and viable. No odor or exudate noted. No erythema noted periwound. Resolving pressure injury plantar R heel. Base of wound 50% epithelialized, 50% moist and viable.(L)5.5cm x (W)6.5cm. Resolving pressure injury lateral L heel. Base of wound is moist and viable with surrounding hyperpigmentation.(L)0.6cm x (W)0.5cm. Scattered loose, dry brown skin noted to medial and posterior L heel. Tx.Plan: Apply Moisture Barrier Paste to L buttocks and sacrum. Cover with Optifoam drsg. Change every 3 days and prn. Cleanse head of penis with soap and water. Apply Bacitracin oint Twice Daily. Apply Betadine to R and L heel wounds. Cover each heel with Optifoam drsg. Daily and prn. APM/ABDELRAHMAN Mattress overlay. Reposition at least every 2hours and prn. Off-load heels with pillow. Don Carvalho Nov 29, 2018 17:36
[2018-11-29 20:00] VITALS: BP 144/74
--- NOTE | 2018-11-29 20:16 | Hematology/Onc Progress Note ---
Assessment/Plan Assessment/Plan ASSESSMENT AND RECOMMENDATIONS # Leukocytosis. Likely related to underlying infection with sepsis and elevated severely on admission --> Imaging has been reviewed. Shows cxr left lung inil/v edema --> Blood cs and urine cx are reviewed --> Has been started on abx, empiric tx (zosyn)--> colistin/cipro --> PERIPHERAL SMEAR SHOWS ATYPICAL LYMPHOCYTES--> has stabilized, improved --> Flow cytometry ordered with pathologist -> no atypical findings are noted --> wbc 52k-->47k-->29k->16-->12-->14->12-->12-->21-->14->11->15->9-->11.4->24k --> picc was repositioned # Anemia of chronic disease, due to underlying chronic medical issues, multifactorial. --> Anemia w/u has been ordered --> with hyperferritinemia --> No evidence of hemolysis noted, peripheral smear has been reviewed --> Hgb goal >7. Transfuse as needed --> hgb trend 7.5-->6.6->9.1-->9.2-->8.9-->9.9->8.3-->8.5-->9.3-->8.2 --> 2 units transfuse on 11/15 --> will need to follow as outpatient and may need chelation therapy --> GI workup with egd showed gastritis # Failure to thrive (FTT) - decreased bmi and low protein --> cea 4.3 --> will obtain q3 day caloric counts --> mirtazapine as appetite stimulant --> GI consult on a prn basis, as needed for endosc # Asystole with pauses may need pm per family --> as per cards recs # Sepsis, which has improved # PEG # Malnutrition. 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 Greatly appreciate consultation. Subjective HEENT: Denies: no symptoms, eye pain, blurred vision, tearing, double vision, ear pain, ear discharge, nose pain, nose congestion, throat pain, throat swelling, mouth pain, mouth swelling, other Cardiovascular: Denies: no symptoms, chest pain, edema, irregular heart rate, lightheadedness, palpitations, syncope, other Respiratory: Denies: no symptoms, cough, shortness of breath, SOB with excertion, SOB at rest, sputum, wheezing, other Gastrointestinal/Abdominal: Denies: no symptoms, abdomen distended, abdominal pain, black stools, tarry stools, blood in stool, constipated, diarrhea, difficulty swallowing, nausea, poor appetite, poor fluid intake, rectal bleeding , vomiting, other Genitourinary: Denies: no symptoms, burning, discharge, frequency, flank pain, hematuria, incontinence, pain, urgency, other Neurologic/Psychiatric: Denies: no symptoms, anxiety, depressed, emotional problems, headache, numbness, paresthesia, pre-existing deficit, seizure, tingling, tremors, weakness, other Endocrine: Denies: no symptoms, excessive sweating, flushing, intolerance to cold, intolerance to heat, increased hunger, increased thirst, increased urine, unexplained weight gain, unexplained weight loss, other Allergies: Coded Allergies: TERAZOSIN (Verified Allergy, Unknown, 10/27/17) Subjective 11/16: in the icu, is off pressors, doing better, no bleeding 11/18: no bleeding, remains on doxy and zosyn, no bleeding reported 11/19: out of the icu, on vent/trach, no major changes, jimenez rn 11/20: no bleeding noted, no night sweats, meds reviewed, no f/c 11/21: on vent, obtunded, with gt ongong, with picc, no bleeding 17: stricture advanced through with uro, with crab[place], labs noted 11/23: no events to report, no bleeding, labs reviewed, in icu 11/24: remains in the icu, with asystole, pending discussion with marlyn re pM 11/25: continues to have pauses, no bleeding, seen by cards, no events 11/26: no ets, no bleeding noted, no night sweats, no f/c 11/27: hgb 8.2, no bleeding or chills, no major changes on trach/vent, jimenez RN 11/28: agitated today, on vent/trach, jimenez dior, potential dc to [facility] 11/29: obtunded, is out of the unit, labs noted, wbc 24k Objective Objective Current Medications Medications (Trade) Dose Ordered Sig/Ruthie Route PRN Reason Start Time Stop Time Status Last Admin Dose Admin Acetaminophen (Tylenol) 650 mg Q6H PRN GT Mild Pain/Temp > 100.5 11/28/18 06:05 12/15/18 06:04 11/28/18 21:40 Atropine Sulfate (Atropine 0.4mg/ ml) 0.4 mg Q5M PRN IVP HR<30 for 30 seconds 11/28/18 06:09 12/28/18 06:08 Bisacodyl (Dulcolax) 10 mg DAILYPRN PRN RECTAL Constipation 11/28/18 06:05 12/18/18 06:04 Chlorhexidine Gluconate (Rachael-Hex 2%) 1 applic DAILY@1999 TOPIC 11/28/18 20:00 12/15/18 19:59 11/28/18 20:35 Ciprofloxacin (Cipro 500mg tab) 500 mg EVERY 12 HOURS GT 11/29/18 09:00 12/06/18 08:59 11/29/18 08:34 Colistimethate Sodium (Colistin *inhalation use only*) 75 mg Q12HR@ INH 11/29/18 22:00 12/06/18 21:59 Dextrose 1,000 ml @ 75 mls/hr [id number] IV 11/29/18 02:00 12/29/18 01:59 11/29/18 16:55 Dextrose (Dextrose 50%) 25 ml Q30M PRN IV Hypoglycemia 11/28/18 06:15 12/15/18 09:38 Dextrose (Dextrose 50%) 50 ml Q30M PRN IV Hypoglycemia 11/28/18 06:15 12/15/18 05:44 Insulin Aspart (NovoLOG) BEFORE MEALS AND HS SUBQ 11/28/18 06:30 12/15/18 06:29 11/29/18 16:59 Lansoprazole (Prevacid) 30 mg BID GT 11/28/18 18:00 12/28/18 17:59 11/29/18 16:59 Lorazepam (Ativan 2mg/ml 1ml) 0.5 mg Q2H PRN IV For Anxiety 11/29/18 13:51 10/31/19 13:50 Olanzapine (ZyPREXA Zydis) 7.5 mg DAILY GT 11/28/18 09:00 12/15/18 08:59 11/29/18 08:34 Last 24 Hour Vital Signs Date Time Temp Pulse Resp B/P (MAP) Pulse Ox O2 Delivery O2 Flow Rate FiO2 11/29/18 18:45 92 23 40 11/29/18 16:51 109 22 40 11/29/18 16:00 98.0 83 24 156/78 (104) 95 11/29/18 16:00 40 11/29/18 16:00 86 11/29/18 16:00 Mechanical Ventilator 11/29/18 14:51 89 25 40 11/29/18 13:16 67 22 40 11/29/18 12:00 40 11/29/18 12:00 98.7 87 24 149/80 (103) 92 11/29/18 12:00 Mechanical Ventilator 11/29/18 11:37 85 11/29/18 10:39 64 22 40 11/29/18 08:31 91 22 50 11/29/18 08:00 50 11/29/18 08:00 Mechanical Ventilator 11/29/18 08:00 98.6 94 23 157/71 (99) 95 11/29/18 07:35 70 11/29/18 07:21 79 22 50 11/29/18 05:24 83 23 50 11/29/18 04:00 Mechanical Ventilator 11/29/18 04:00 50 11/29/18 04:00 98.6 82 22 154/66 (95) 94 11/29/18 04:00 82 11/29/18 03:30 84 22 50 11/29/18 01:30 88 22 50 11/29/18 00:00 99.3 82 22 154/68 (96) 96 11/29/18 00:00 82 11/29/18 00:00 Mechanical Ventilator 11/28/18 23:30 90 21 50 11/28/18 22:10 99.3 11/28/18 21:17 91 22 50 11/28/18 20:00 Mechanical Ventilator 11/28/18 20:00 99.7 92 22 152/78 (102) 99 11/28/18 20:00 92 11/28/18 20:00 50 11/28/18 19:30 80 22 60 11/28/18 16:30 82 22 100 Mechanical Ventilator 50 69 20 50 11/28/18 16:00 50 11/28/18 16:00 99.4 96 24 125/50 (75) 98 11/28/18 16:00 Mechanical Ventilator 11/28/18 16:00 102 11/28/18 14:50 81 22 100 Mechanical Ventilator 50 69 20 50 11/28/18 12:33 82 22 100 Mechanical Ventilator 50 69 20 50 11/28/18 12:00 40 11/28/18 12:00 Mechanical Ventilator 11/28/18 12:00 99.2 81 22 154/78 (103) 98 11/28/18 11:45 67 11/28/18 10:59 80 22 97 Mechanical Ventilator 50 87 20 50 11/28/18 09:38 87 22 97 Mechanical Ventilator 50 87 20 50 11/28/18 08:00 50 11/28/18 08:00 Mechanical Ventilator 11/28/18 08:00 99.0 87 22 164/92 (116) 100 11/28/18 07:40 82 11/28/18 06:55 80 22 100 Mechanical Ventilator 50 69 20 50 11/28/18 05:08 86 21 50 11/28/18 05:00 99.0 80 22 160/77 (104) 95 11/28/18 04:00 76 11/28/18 04:00 98.9 80 22 161/71 (101) 99 11/28/18 04:00 50 11/28/18 04:00 Mechanical Ventilator 11/28/18 03:00 80 24 139/56 (83) 99 11/28/18 02:19 80 22 100 Mechanical Ventilator 50 80 22 50 11/28/18 02:00 86 23 140/67 (91) 98 11/28/18 01:00 86 28 157/67 (97) 98 11/28/18 00:59 89 22 50 11/28/18 00:00 99.0 87 28 154/81 (105) 98 11/28/18 00:00 Mechanical Ventilator 11/28/18 00:00 50 11/28/18 00:00 80 11/27/18 23:02 72 22 98 Mechanical Ventilator 50 72 22 50 11/27/18 23:00 71 28 141/68 (92) 98 11/27/18 22:00 79 28 131/68 (89) 98 11/27/18 21:00 79 29 170/6 (60) 95 11/27/18 20:48 67 20 50 Intake and Output 11/28/18 11/29/18 18:59 06:59 Intake Total 1740 ml 1515 ml Output Total 250 ml 200 ml Balance 1490 ml 1315 ml Intake Free Water 120 ml 120 ml IV Total 900 ml 790 ml Tube Feeding 660 ml 605 ml Other 60 ml Output Urine Total 250 ml 200 ml # Bowel Movements 1 2 Labs Test 11/27/18 05:15 11/27/18 18:00 11/28/18 05:00 11/29/18 04:05 White Blood Count 9.9 K/UL (4.8-10.8) 11.4 K/UL (4.8-10.8) 24.3 K/UL (4.8-10.8) Red Blood Count 3.01 M/UL (4.70-6.10) 3.05 M/UL (4.70-6.10) 3.14 M/UL (4.70-6.10) Hemoglobin 8.2 G/DL (14.2-18.0) 8.2 G/DL (14.2-18.0) 8.6 G/DL (14.2-18.0) Hematocrit 26.0 % (42.0-52.0) 26.3 % (42.0-52.0) 27.2 % (42.0-52.0) Mean Corpuscular Volume 87 FL (80-99) 86 FL (80-99) 87 FL (80-99) Mean Corpuscular Hemoglobin 27.2 PG (27.0-31.0) 26.9 PG (27.0-31.0) 27.4 PG (27.0-31.0) Mean Corpuscular Hemoglobin Concent 31.4 G/DL (32.0-36.0) 31.2 G/DL (32.0-36.0) 31.7 G/DL (32.0-36.0) Red Cell Distribution Width 16.4 % (11.6-14.8) 16.1 % (11.6-14.8) 16.3 % (11.6-14.8) Platelet Count 212 K/UL (150-450) 204 K/UL (150-450) 229 K/UL (150-450) Mean Platelet Volume 6.3 FL (6.5-10.1) 6.6 FL (6.5-10.1) 7.2 FL (6.5-10.1) Neutrophils (%) (Auto) 74.6 % (45.0-75.0) 71.7 % (45.0-75.0) % (45.0-75.0) Lymphocytes (%) (Auto) 13.5 % (20.0-45.0) 14.5 % (20.0-45.0) % (20.0-45.0) Monocytes (%) (Auto) 9.5 % (1.0-10.0) 10.7 % (1.0-10.0) % (1.0-10.0) Eosinophils (%) (Auto) 1.7 % (0.0-3.0) 1.8 % (0.0-3.0) % (0.0-3.0) Basophils (%) (Auto) 0.7 % (0.0-2.0) 1.2 % (0.0-2.0) % (0.0-2.0) Sodium Level 153 MMOL/L (136-145) 152 MMOL/L (136-145) 147 MMOL/L (136-145) Potassium Level 4.1 MMOL/L (3.5-5.1) 4.1 MMOL/L (3.5-5.1) 4.2 MMOL/L (3.5-5.1) Chloride Level 116 MMOL/L (98-107) 114 MMOL/L (98-107) 110 MMOL/L (98-107) Carbon Dioxide Level 35 MMOL/L (21-32) 38 MMOL/L (21-32) 35 MMOL/L (21-32) Anion Gap 2 mmol/L (5-15) 0 mmol/L (5-15) 3 mmol/L (5-15) Blood Urea Nitrogen 18 mg/dL (7-18) 18 mg/dL (7-18) 18 mg/dL (7-18) Creatinine 0.8 MG/DL (0.55-1.30) 0.9 MG/DL (0.55-1.30) 0.8 MG/DL (0.55-1.30) Estimat Glomerular Filtration Rate mL/min (>60) mL/min (>60) mL/min (>60) Glucose Level 120 MG/DL (74-106) 98 MG/DL (74-106) 134 MG/DL (74-106) Calcium Level 8.5 MG/DL (8.5-10.1) 8.3 MG/DL (8.5-10.1) 8.2 MG/DL (8.5-10.1) Stool Occult Blood Positive (NEGATIVE) Uric Acid 2.4 MG/DL (2.6-7.2) Phosphorus Level 3.1 MG/DL (2.5-4.9) 2.7 MG/DL (2.5-4.9) Magnesium Level 1.8 MG/DL (1.8-2.4) 1.7 MG/DL (1.8-2.4) Total Bilirubin 0.3 MG/DL (0.2-1.0) 0.3 MG/DL (0.2-1.0) Gamma Glutamyl Transpeptidase 94 U/L (5-85) Aspartate Amino Transf (AST/SGOT) 25 U/L (15-37) 26 U/L (15-37) Alanine Aminotransferase (ALT/SGPT) 54 U/L (12-78) 46 U/L (12-78) Alkaline Phosphatase 105 U/L (46-116) 107 U/L (46-116) C-Reactive Protein, Quantitative 7.2 mg/dL (0.00-0.90) 12.4 mg/dL (0.00-0.90) Pro-B-Type Natriuretic Peptide 3695 pg/mL (0-125) 4751 pg/mL (0-125) Total Protein 5.9 G/DL (6.4-8.2) 6.3 G/DL (6.4-8.2) Albumin 1.7 G/DL (3.4-5.0) 1.7 G/DL (3.4-5.0) Globulin 4.2 g/dL 4.6 g/dL Albumin/Globulin Ratio 0.4 (1.0-2.7) 0.4 (1.0-2.7) Differential Total Cells Counted 100 Neutrophils % (Manual) 86 % (45-75) Lymphocytes % (Manual) 5 % (20-45) Monocytes % (Manual) 9 % (1-10) Eosinophils % (Manual) 0 % (0-3) Basophils % (Manual) 0 % (0-2) Band Neutrophils 0 % (0-8) Platelet Estimate Adequate Platelet Morphology Normal Hypochromasia 1+ Anisocytosis 1+ Test 11/29/18 08:15 Lactic Acid Level 0.60 mmol/L (0.4-2.0) Height (Feet): 5 Height (Inches): 5.00 Weight (Pounds): 170 Objective Vitals: reviewed Gen: no apparent distress Head: normocephalic EENT: normal ENT inspection Respiratory: other - intubated vent+ Cardiovascular: normal rate Gastrointestinal: gt - c/d/i Rectal: deferred Genitourinary: no CVA tenderness Skin: normal color +++ decub : ++ Beny Fields MD Nov 29, 2018 20:16
[2018-11-29] MEDS: Dyna-Hex 2% Top Sol 2oz TOPIC SCH (20:38)
[2018-11-29] MEDS: LORazepam Inj 2mg/ml 1ml IV PRN (21:27)
--- NOTE | 2018-11-29 21:42 | General Progress Note ---
Assessment/Plan Problem List: (1) Hypernatremia ICD Codes: E87.0 - Hyperosmolality and hypernatremia SNOMED: 45503147 (2) Rhabdomyolysis ICD Codes: M62.82 - Rhabdomyolysis SNOMED: 219704761 (3) Sacral decubitus ulcer ICD Codes: L89.159 - Pressure ulcer of sacral region, unspecified stage SNOMED: 932229185 (4) Severe sepsis ICD Codes: A41.9 - Sepsis, unspecified organism; R65.20 - Severe sepsis without septic shock SNOMED: 99327796 (5) Septic shock ICD Codes: A41.9 - Sepsis, unspecified organism; R65.21 - Severe sepsis with septic shock SNOMED: 32302886 (6) DM (7) Anemia ICD Codes: D64.9 - Anemia, unspecified SNOMED: 696601319 (8) Prostate enlargement ICD Codes: N40.0 - Benign prostatic hyperplasia without lower urinary tract symptoms SNOMED: 612790171 (9) Chronic renal disease ICD Codes: N18.9 - Chronic kidney disease, unspecified SNOMED: 226971134 (10) Ventilator dependence ICD Codes: Z99.11 - Dependence on respirator [ventilator] status SNOMED: 317138908 (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 - Gastrostomy status SNOMED: 118060094, 503284055 (12) Malnutrition ICD Codes: E46 - Unspecified protein-calorie malnutrition SNOMED: 05515903 Status: stable, unchanged Assessment/Plan: family refuses pacemaker i agree w dnr bradycardia junctional rhythem edema chf persistent leukocytosis uti Subjective ROS Limited/Unobtainable: Yes Allergies: Coded Allergies: TERAZOSIN (Verified Allergy, Unknown, 10/27/17) Objective Last 24 Hour Vital Signs Date Time Temp Pulse Resp B/P (MAP) Pulse Ox O2 Delivery O2 Flow Rate FiO2 11/29/18 20:51 115 22 40 11/29/18 18:45 92 23 40 11/29/18 16:51 109 22 40 11/29/18 16:00 98.0 83 24 156/78 (104) 95 11/29/18 16:00 40 11/29/18 16:00 86 11/29/18 16:00 Mechanical Ventilator 11/29/18 14:51 89 25 40 11/29/18 13:16 67 22 40 11/29/18 12:00 40 11/29/18 12:00 98.7 87 24 149/80 (103) 92 11/29/18 12:00 Mechanical Ventilator 11/29/18 11:37 85 11/29/18 10:39 64 22 40 11/29/18 08:31 91 22 50 11/29/18 08:00 50 11/29/18 08:00 Mechanical Ventilator 11/29/18 08:00 98.6 94 23 157/71 (99) 95 11/29/18 07:35 70 11/29/18 07:21 79 22 50 11/29/18 05:24 83 23 50 11/29/18 04:00 Mechanical Ventilator 11/29/18 04:00 50 11/29/18 04:00 98.6 82 22 154/66 (95) 94 11/29/18 04:00 82 11/29/18 03:30 84 22 50 11/29/18 01:30 88 22 50 11/29/18 00:00 99.3 82 22 154/68 (96) 96 11/29/18 00:00 82 11/29/18 00:00 Mechanical Ventilator 11/28/18 23:30 90 21 50 11/28/18 22:10 99.3 Intake and Output 11/28/18 11/29/18 19:00 07:00 Intake Total 1685 ml 1570 ml Output Total 250 ml 200 ml Balance 1435 ml 1370 ml Intake Free Water 120 ml 120 ml IV Total 900 ml 790 ml Tube Feeding 605 ml 660 ml Other 60 ml Output Urine Total 250 ml 200 ml # Bowel Movements 1 2 Laboratory Tests 11/29/18 04:05: White Blood Count 24.3#*H, Red Blood Count 3.14L, Hemoglobin 8.6L, Hematocrit 27.2L, Mean Corpuscular Volume 87, Mean Corpuscular Hemoglobin 27.4, Mean Corpuscular Hemoglobin Concent 31.7L, Red Cell Distribution Width 16.3H, Platelet Count 229, Mean Platelet Volume 7.2, Neutrophils (%) (Auto) , Lymphocytes (%) (Auto) , Monocytes (%) (Auto) , Eosinophils (%) (Auto) , Basophils (%) (Auto) , Differential Total Cells Counted 100, Neutrophils % ( Manual) 86H, Lymphocytes % (Manual) 5L, Monocytes % (Manual) 9, Eosinophils % ( Manual) 0, Basophils % (Manual) 0, Band Neutrophils 0, Platelet Estimate Adequate, Platelet Morphology Normal, Hypochromasia 1+, Anisocytosis 1+, Sodium Level 147H, Potassium Level 4.2, Chloride Level 110H, Carbon Dioxide Level 35H, Anion Gap 3L, Blood Urea Nitrogen 18, Creatinine 0.8, Estimat Glomerular Filtration Rate , Glucose Level 134H, Calcium Level 8.2L, Phosphorus Level 2.7, Magnesium Level 1.7L, Total Bilirubin 0.3, Aspartate Amino Transf (AST/SGOT) 26 , Alanine Aminotransferase (ALT/SGPT) 46, Alkaline Phosphatase 107, C-Reactive Protein, Quantitative 12.4H, Pro-B-Type Natriuretic Peptide 4751H, Total Protein 6.3L, Albumin 1.7L, Globulin 4.6, Albumin/Globulin Ratio 0.4L 11/29/18 08:15: Lactic Acid Level 0.60 Height (Feet): 5 Height (Inches): 5.00 Weight (Pounds): 170 General Appearance: lethargic, confused Abdomen: soft Trish Matias MD Nov 29, 2018 21:42
[2018-11-29] MEDS: Colistin for inhalation INH SCH (22:46)
[2018-11-30] VITALS: BP 148/68
[2018-11-30 04:00] VITALS: BP 143/69
[2018-11-30 04:42] LABS: HEMATOCRIT 26.5 % (42.0-52.0); HEMOGLOBIN 8.4 G/DL (14.2-18.0); MEAN CORPUSCULAR VOLUME 87 FL (80-99); PLATELET COUNT 217 K/UL (150-450); RED BLOOD COUNT 3.06 M/UL (4.70-6.10); RED CELL DISTRIBUTION WIDTH 16.3 % (11.6-14.8)
[2018-11-30 04:59] LABS: WHITE BLOOD COUNT 28.2 K/UL (4.8-10.8)
[2018-11-30] MEDS: NovoLOG Insulin Flexpen SUBQ SCH ×4 (05:58→20:54)
[2018-11-30 08:00] VITALS: BP 152/76
[2018-11-30] MEDS: ZyPREXA Zydis 5mg tab GT SCH (08:52)
[2018-11-30] MEDS: Ciprofloxacin 500mg tab GT SCH ×2 (08:52→20:53)
--- NOTE | 2018-11-30 10:09 | Cardiac Electrophysiology PN ---
Assessment/Plan Assessment/Plan 1. S/P Septic shock with white count of 50,000 and lactic acid of 6. On IV antibiotic and IV fluid . BP OK now 2. S/P multiple episodes of asystole with HR down to 10 and pauses of more than 10 seconds earlier today . Off any MCGEE or AVN blockers. Needs permanent pacer implantation. Patient is full code. DW Son Mr. Faraz Erickson on 11/23/18 at [phone]. Family refusing the pacer. On prn Atropine. Echo Nl EF. 3. Congestive heart failure with BNP of more than 17,000. BNP 3000 range 4. Troponin elevation, likely due to renal failure and anemia and septic shock. The levels are flat. EKG does not show any ST elevation. 5. S/P Acute renal failure. Resolved BUN 15 and Cr now 0.8 6. Hypernatremia. On D5W per Dr Fernandes 7. Ventilator-dependent respiratory failure, status post tracheostomy. 8. Dysphagia, status post PEG placement. 9. Profound anemia, hemoglobin of 6.5, rule out GI bleed. S/P blood transfusion. S/P EGD 10. Bleeding from Turner. FU Dr. César CHOWDARY RN Subjective Subjective Still laurie at times and DNR and family refusing Pacer implant. Objective Last 24 Hour Vital Signs Date Time Temp Pulse Resp B/P (MAP) Pulse Ox O2 Delivery O2 Flow Rate FiO2 11/30/18 09:07 78 23 40 11/30/18 08:00 87 11/30/18 08:00 40 11/30/18 08:00 99.0 87 22 152/76 (101) 92 11/30/18 08:00 Mechanical Ventilator 11/30/18 06:39 87 22 40 11/30/18 04:55 90 22 40 11/30/18 04:00 98.8 91 22 143/69 (93) 96 11/30/18 04:00 Mechanical Ventilator 11/30/18 04:00 40 11/30/18 03:35 89 11/30/18 02:57 98 22 40 11/30/18 02:56 98 22 98 Mechanical Ventilator 40 11/30/18 00:45 105 22 40 11/30/18 00:00 99.7 99 26 148/68 (94) 93 11/30/18 00:00 Mechanical Ventilator 11/29/18 23:01 105 22 99 Mechanical Ventilator 40 11/29/18 22:46 96 26 99 Mechanical Ventilator 40 96 26 40 11/29/18 20:51 115 22 40 11/29/18 20:39 97 11/29/18 20:00 40 11/29/18 20:00 99.8 98 25 144/74 (97) 94 11/29/18 20:00 Mechanical Ventilator 11/29/18 18:45 92 23 40 11/29/18 16:51 109 22 40 11/29/18 16:00 98.0 83 24 156/78 (104) 95 11/29/18 16:00 40 11/29/18 16:00 86 11/29/18 16:00 Mechanical Ventilator 11/29/18 14:51 89 25 40 11/29/18 13:16 67 22 40 11/29/18 12:00 40 11/29/18 12:00 98.7 87 24 149/80 (103) 92 11/29/18 12:00 Mechanical Ventilator 11/29/18 11:37 85 11/29/18 10:39 64 22 40 Intake and Output 11/29/18 11/30/18 19:00 07:00 Intake Total 1535 ml 1585 ml Output Total 200 ml 200 ml Balance 1335 ml 1385 ml Intake Free Water 180 ml 100 ml IV Total 750 ml 880 ml Tube Feeding 605 ml 605 ml Output Urine Total 200 ml 200 ml # Bowel Movements 1 2 Laboratory Tests Test 11/30/18 02:50 White Blood Count 28.2 K/UL (4.8-10.8) *H Red Blood Count 3.06 M/UL (4.70-6.10) L Hemoglobin 8.4 G/DL (14.2-18.0) L Hematocrit 26.5 % (42.0-52.0) L Mean Corpuscular Volume 87 FL (80-99) Mean Corpuscular Hemoglobin 27.4 PG (27.0-31.0) Mean Corpuscular Hemoglobin Concent 31.6 G/DL (32.0-36.0) L Red Cell Distribution Width 16.3 % (11.6-14.8) H Platelet Count 217 K/UL (150-450) Mean Platelet Volume 7.0 FL (6.5-10.1) Neutrophils (%) (Auto) % (45.0-75.0) Lymphocytes (%) (Auto) % (20.0-45.0) Monocytes (%) (Auto) % (1.0-10.0) Eosinophils (%) (Auto) % (0.0-3.0) Basophils (%) (Auto) % (0.0-2.0) Differential Total Cells Counted 100 Neutrophils % (Manual) 89 % (45-75) H Lymphocytes % (Manual) 4 % (20-45) L Monocytes % (Manual) 7 % (1-10) Eosinophils % (Manual) 0 % (0-3) Basophils % (Manual) 0 % (0-2) Band Neutrophils 0 % (0-8) Platelet Estimate Adequate Platelet Morphology Normal Hypochromasia 1+ Anisocytosis 1+ Objective HEAD AND NECK: Tracheostomy intact. LUNGS: Coarse rhonchi. Decreased breath sounds CARDIOVASCULAR: Irregular irregular S1 and S2 with no gallop. ABDOMEN: Status post G-tube, distended. EXTREMITIES: Reveal 1+ edema. Luke Prather MD Nov 30, 2018 10:09
--- NOTE | 2018-11-30 10:22 | Infectious Diseases Prog Note ---
Assessment/Plan Assessment/Plan IMPRESSION: Sepsis, Pyuria/ UTI treated Pneumonia with MDR pseudomonas, Acinetobacter & Klebsiella BPH, ventilator-dependent respiratory failure Leukemoid reaction,resolved Acute renal failure, improving Diabetes mellitus, anemia, hypoxemic respiratory failure, dementia. 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 Phimosis/ paraphimosis Urethral stricture Asystole, cardiac pause DNR RECOMMENDATION: Continue Cipro & Colistin inhaler Urology f/u Family refused pacemaker placement Poor prognosis Subjective ROS Limited/Unobtainable: Yes Allergies: Coded Allergies: TERAZOSIN (Verified Allergy, Unknown, 10/27/17) Objective Vital Signs Last 24 Hour Vital Signs Date Time Temp Pulse Resp B/P (MAP) Pulse Ox O2 Delivery O2 Flow Rate FiO2 11/30/18 09:07 78 23 40 11/30/18 08:00 87 11/30/18 08:00 40 11/30/18 08:00 99.0 87 22 152/76 (101) 92 11/30/18 08:00 Mechanical Ventilator 11/30/18 06:39 87 22 40 11/30/18 04:55 90 22 40 11/30/18 04:00 98.8 91 22 143/69 (93) 96 11/30/18 04:00 Mechanical Ventilator 11/30/18 04:00 40 11/30/18 03:35 89 11/30/18 02:57 98 22 40 11/30/18 02:56 98 22 98 Mechanical Ventilator 40 11/30/18 00:45 105 22 40 11/30/18 00:00 99.7 99 26 148/68 (94) 93 11/30/18 00:00 Mechanical Ventilator 11/29/18 23:01 105 22 99 Mechanical Ventilator 40 11/29/18 22:46 96 26 99 Mechanical Ventilator 40 96 26 40 11/29/18 20:51 115 22 40 11/29/18 20:39 97 11/29/18 20:00 40 11/29/18 20:00 99.8 98 25 144/74 (97) 94 11/29/18 20:00 Mechanical Ventilator 11/29/18 18:45 92 23 40 11/29/18 16:51 109 22 40 11/29/18 16:00 98.0 83 24 156/78 (104) 95 11/29/18 16:00 40 11/29/18 16:00 86 11/29/18 16:00 Mechanical Ventilator 11/29/18 14:51 89 25 40 11/29/18 13:16 67 22 40 11/29/18 12:00 40 11/29/18 12:00 98.7 87 24 149/80 (103) 92 11/29/18 12:00 Mechanical Ventilator 11/29/18 11:37 85 11/29/18 10:39 64 22 40 Height (Feet): 5 Height (Inches): 5.00 Weight (Pounds): 170 HEENT: status post trach Respiratory/Chest: decreased breath sounds, other - on ventilator Cardiovascular: normal rate, other - PICC line Abdomen: distended, other - GT feeding Genitourinary: other - Turner catheter, hematuria, scrotal edema Extremities: other - edema, contraction of legs Skin: ulcers Neurologic/Psychiatric: aphasia Laboratory Tests Test 11/30/18 02:50 White Blood Count 28.2 K/UL (4.8-10.8) *H Red Blood Count 3.06 M/UL (4.70-6.10) L Hemoglobin 8.4 G/DL (14.2-18.0) L Hematocrit 26.5 % (42.0-52.0) L Mean Corpuscular Volume 87 FL (80-99) Mean Corpuscular Hemoglobin 27.4 PG (27.0-31.0) Mean Corpuscular Hemoglobin Concent 31.6 G/DL (32.0-36.0) L Red Cell Distribution Width 16.3 % (11.6-14.8) H Platelet Count 217 K/UL (150-450) Mean Platelet Volume 7.0 FL (6.5-10.1) Neutrophils (%) (Auto) % (45.0-75.0) Lymphocytes (%) (Auto) % (20.0-45.0) Monocytes (%) (Auto) % (1.0-10.0) Eosinophils (%) (Auto) % (0.0-3.0) Basophils (%) (Auto) % (0.0-2.0) Differential Total Cells Counted 100 Neutrophils % (Manual) 89 % (45-75) H Lymphocytes % (Manual) 4 % (20-45) L Monocytes % (Manual) 7 % (1-10) Eosinophils % (Manual) 0 % (0-3) Basophils % (Manual) 0 % (0-2) Band Neutrophils 0 % (0-8) Platelet Estimate Adequate Platelet Morphology Normal Hypochromasia 1+ Anisocytosis 1+ Current Medications Medications (Trade) Dose Ordered Sig/Ruthie Route PRN Reason Start Time Stop Time Status Last Admin Dose Admin Acetaminophen (Tylenol) 650 mg Q6H PRN GT Mild Pain/Temp > 100.5 11/28/18 06:05 12/15/18 06:04 11/28/18 21:40 Atropine Sulfate (Atropine 0.4mg/ ml) 0.4 mg Q5M PRN IVP HR<30 for 30 seconds 11/28/18 06:09 12/28/18 06:08 Bisacodyl (Dulcolax) 10 mg DAILYPRN PRN RECTAL Constipation 11/28/18 06:05 12/18/18 06:04 Chlorhexidine Gluconate (Rachael-Hex 2%) 1 applic DAILY@1999 TOPIC 11/28/18 20:00 12/15/18 19:59 11/29/18 20:38 Ciprofloxacin (Cipro 500mg tab) 500 mg EVERY 12 HOURS GT 11/29/18 09:00 12/06/18 08:59 11/30/18 08:52 Colistimethate Sodium (Colistin *inhalation use only*) 75 mg Q12HR@ INH 11/29/18 22:00 12/06/18 21:59 11/29/18 22:46 Dextrose 1,000 ml @ 75 mls/hr [id number] IV 11/29/18 02:00 12/29/18 01:59 11/30/18 05:16 Dextrose (Dextrose 50%) 25 ml Q30M PRN IV Hypoglycemia 11/28/18 06:15 12/15/18 09:38 Dextrose (Dextrose 50%) 50 ml Q30M PRN IV Hypoglycemia 11/28/18 06:15 12/15/18 05:44 Insulin Aspart (NovoLOG) BEFORE MEALS AND HS SUBQ 11/28/18 06:30 12/15/18 06:29 11/30/18 05:58 Lansoprazole (Prevacid) 30 mg BID GT 11/28/18 18:00 12/28/18 17:59 11/30/18 08:52 Lorazepam (Ativan 2mg/ml 1ml) 0.5 mg Q2H PRN IV For Anxiety 11/29/18 13:51 12/06/18 13:50 11/29/18 21:27 Olanzapine (ZyPREXA Zydis) 7.5 mg DAILY GT 11/28/18 09:00 12/15/18 08:59 11/30/18 08:52 Anam Cruz MD Nov 30, 2018 10:22
--- NOTE | 2018-11-30 10:58 | General Progress Note ---
Assessment/Plan Problem List: (1) GIB (gastrointestinal bleeding) ICD Codes: K92.2 - Gastrointestinal hemorrhage, unspecified SNOMED: 52353119 (2) PEG (percutaneous endoscopic gastrostomy) status ICD Codes: Z93.1 - Gastrostomy status SNOMED: 587173630, 955864882 (3) Chronic renal disease ICD Codes: N18.9 - Chronic kidney disease, unspecified SNOMED: 255091364 (4) Prostate enlargement ICD Codes: N40.0 - Benign prostatic hyperplasia without lower urinary tract symptoms SNOMED: 034862494 (5) Anemia ICD Codes: D64.9 - Anemia, unspecified SNOMED: 839929728 (6) Septic shock ICD Codes: A41.9 - Sepsis, unspecified organism; R65.21 - Severe sepsis with septic shock SNOMED: 38158043 (7) Gastrostomy tube dependent ICD Codes: Z93.1 - Gastrostomy status SNOMED: 479163030, 872659061 Status: stable, unchanged Assessment/Plan: ppi prn blood transfusion abx per ID now off pressors GTF EGD on hold given stable H&H and patient's poor medical condition hematuria>> fu urology recs Subjective ROS Limited/Unobtainable: No Allergies: Coded Allergies: TERAZOSIN (Verified Allergy, Unknown, 10/27/17) Objective Last 24 Hour Vital Signs Date Time Temp Pulse Resp B/P (MAP) Pulse Ox O2 Delivery O2 Flow Rate FiO2 11/30/18 09:07 78 23 40 11/30/18 08:00 87 11/30/18 08:00 40 11/30/18 08:00 99.0 87 22 152/76 (101) 92 11/30/18 08:00 Mechanical Ventilator 11/30/18 06:39 87 22 40 11/30/18 04:55 90 22 40 11/30/18 04:00 98.8 91 22 143/69 (93) 96 11/30/18 04:00 Mechanical Ventilator 11/30/18 04:00 40 11/30/18 03:35 89 11/30/18 02:57 98 22 40 11/30/18 02:56 98 22 98 Mechanical Ventilator 40 11/30/18 00:45 105 22 40 11/30/18 00:00 99.7 99 26 148/68 (94) 93 11/30/18 00:00 Mechanical Ventilator 11/29/18 23:01 105 22 99 Mechanical Ventilator 40 11/29/18 22:46 96 26 99 Mechanical Ventilator 40 96 26 40 11/29/18 20:51 115 22 40 11/29/18 20:39 97 11/29/18 20:00 40 11/29/18 20:00 99.8 98 25 144/74 (97) 94 11/29/18 20:00 Mechanical Ventilator 11/29/18 18:45 92 23 40 11/29/18 16:51 109 22 40 11/29/18 16:00 98.0 83 24 156/78 (104) 95 11/29/18 16:00 40 11/29/18 16:00 86 11/29/18 16:00 Mechanical Ventilator 11/29/18 14:51 89 25 40 11/29/18 13:16 67 22 40 11/29/18 12:00 40 11/29/18 12:00 98.7 87 24 149/80 (103) 92 11/29/18 12:00 Mechanical Ventilator 11/29/18 11:37 85 Intake and Output 11/29/18 11/30/18 19:00 07:00 Intake Total 1535 ml 1585 ml Output Total 200 ml 200 ml Balance 1335 ml 1385 ml Intake Free Water 180 ml 100 ml IV Total 750 ml 880 ml Tube Feeding 605 ml 605 ml Output Urine Total 200 ml 200 ml # Bowel Movements 1 2 Laboratory Tests 11/30/18 02:50: White Blood Count 28.2*H, Red Blood Count 3.06L, Hemoglobin 8.4L, Hematocrit 26.5L, Mean Corpuscular Volume 87, Mean Corpuscular Hemoglobin 27.4, Mean Corpuscular Hemoglobin Concent 31.6L, Red Cell Distribution Width 16.3H, Platelet Count 217, Mean Platelet Volume 7.0, Neutrophils (%) (Auto) , Lymphocytes (%) (Auto) , Monocytes (%) (Auto) , Eosinophils (%) (Auto) , Basophils (%) (Auto) , Differential Total Cells Counted 100, Neutrophils % ( Manual) 89H, Lymphocytes % (Manual) 4L, Monocytes % (Manual) 7, Eosinophils % ( Manual) 0, Basophils % (Manual) 0, Band Neutrophils 0, Platelet Estimate Adequate, Platelet Morphology Normal, Hypochromasia 1+, Anisocytosis 1+ Height (Feet): 5 Height (Inches): 5.00 Weight (Pounds): 170 General Appearance: no apparent distress EENT: normal ENT inspection Neck: supple Cardiovascular: normal rate Respiratory/Chest: decreased breath sounds Abdomen: normal bowel sounds, non tender, soft Extremities: non-tender Juan Coronel MD Nov 30, 2018 10:58
[2018-11-30] MEDS: Colistin for inhalation INH SCH ×2 (11:23→22:00)
--- NOTE | 2018-11-30 11:23 | Nephrology Progress Note ---
Assessment/Plan Problem List: (1) Septic shock Assessment: WBCs rising (2) Ventilator dependence (3) Renal failure (ARF), acute on chronic (4) Prostate enlargement (5) Anemia (6) Hyperosmolality with hypernatremia Assessment Septic Shock Acute renal failure CKD underlying BPH Sever Anemia Chronic trach-Vent DM HypoAlbuminemia HyperNatremia Dementia Troponin elevation Plan WBC kevin and has hematuria ! Patient DNR , but not comfort care Will discuss the plan of care D5W for hyperNatremia now in SDU family agreed to DNR labs reviewed- mag IV as needed avoid Nephrotoxics transfuse as needed crabtree monitor urine out put and renal parameters per orders Subjective ROS Limited/Unobtainable: Yes Objective Objective Last 24 Hour Vital Signs Date Time Temp Pulse Resp B/P (MAP) Pulse Ox O2 Delivery O2 Flow Rate FiO2 11/30/18 09:07 78 23 40 11/30/18 08:00 87 11/30/18 08:00 40 11/30/18 08:00 99.0 87 22 152/76 (101) 92 11/30/18 08:00 Mechanical Ventilator 11/30/18 06:39 87 22 40 11/30/18 04:55 90 22 40 11/30/18 04:00 98.8 91 22 143/69 (93) 96 11/30/18 04:00 Mechanical Ventilator 11/30/18 04:00 40 11/30/18 03:35 89 11/30/18 02:57 98 22 40 11/30/18 02:56 98 22 98 Mechanical Ventilator 40 11/30/18 00:45 105 22 40 11/30/18 00:00 99.7 99 26 148/68 (94) 93 11/30/18 00:00 Mechanical Ventilator 11/29/18 23:01 105 22 99 Mechanical Ventilator 40 11/29/18 22:46 96 26 99 Mechanical Ventilator 40 96 26 40 11/29/18 20:51 115 22 40 11/29/18 20:39 97 11/29/18 20:00 40 11/29/18 20:00 99.8 98 25 144/74 (97) 94 11/29/18 20:00 Mechanical Ventilator 11/29/18 18:45 92 23 40 11/29/18 16:51 109 22 40 11/29/18 16:00 98.0 83 24 156/78 (104) 95 11/29/18 16:00 40 11/29/18 16:00 86 11/29/18 16:00 Mechanical Ventilator 11/29/18 14:51 89 25 40 11/29/18 13:16 67 22 40 11/29/18 12:00 40 11/29/18 12:00 98.7 87 24 149/80 (103) 92 11/29/18 12:00 Mechanical Ventilator 11/29/18 11:37 85 Intake and Output 11/29/18 11/30/18 19:00 07:00 Intake Total 1535 ml 1585 ml Output Total 200 ml 200 ml Balance 1335 ml 1385 ml Intake Free Water 180 ml 100 ml IV Total 750 ml 880 ml Tube Feeding 605 ml 605 ml Output Urine Total 200 ml 200 ml # Bowel Movements 1 2 Laboratory Tests 11/30/18 02:50: White Blood Count 28.2*H, Red Blood Count 3.06L, Hemoglobin 8.4L, Hematocrit 26.5L, Mean Corpuscular Volume 87, Mean Corpuscular Hemoglobin 27.4, Mean Corpuscular Hemoglobin Concent 31.6L, Red Cell Distribution Width 16.3H, Platelet Count 217, Mean Platelet Volume 7.0, Neutrophils (%) (Auto) , Lymphocytes (%) (Auto) , Monocytes (%) (Auto) , Eosinophils (%) (Auto) , Basophils (%) (Auto) , Differential Total Cells Counted 100, Neutrophils % ( Manual) 89H, Lymphocytes % (Manual) 4L, Monocytes % (Manual) 7, Eosinophils % ( Manual) 0, Basophils % (Manual) 0, Band Neutrophils 0, Platelet Estimate Adequate, Platelet Morphology Normal, Hypochromasia 1+, Anisocytosis 1+ Height (Feet): 5 Height (Inches): 5.00 Weight (Pounds): 170 General Appearance: mild distress Neck: other - trach Cardiovascular: tachycardia Respiratory/Chest: decreased breath sounds Abdomen: distended Genitourinary/Rectal: other - crabtree, bloody urine Objective no change Randolph Fernandes MD Nov 30, 2018 11:23
[2018-11-30 12:00] VITALS: BP_SYST 125; BP_SYST 152; BP_DIAS 68; BP_DIAS 76
--- NOTE | 2018-11-30 14:33 | Hematology/Onc Progress Note ---
Assessment/Plan Assessment/Plan ASSESSMENT AND RECOMMENDATIONS # Leukocytosis. Likely related to underlying infection with sepsis and elevated severely on admission --> Imaging has been reviewed. Shows cxr left lung inil/v edema --> Blood cs and urine cx are reviewed --> Has been started on abx, empiric tx (zosyn)--> colistin/cipro --> PERIPHERAL SMEAR SHOWS ATYPICAL LYMPHOCYTES--> has stabilized, improved --> Flow cytometry ordered with pathologist -> no atypical findings are noted --> wbc 52k-->47k-->29k->16-->12-->14->12-->12-->21-->14->11->15->9-->11.4->24k- >28k --> picc was repositioned --> is off of any steriods, daily md review # Anemia of chronic disease, due to underlying chronic medical issues, multifactorial. --> Anemia w/u has been ordered --> with hyperferritinemia --> No evidence of hemolysis noted, peripheral smear has been reviewed --> Hgb goal >7. Transfuse as needed --> hgb trend 7.5-->6.6->9.1-->9.2-->8.9-->9.9->8.3-->8.5-->9.3-->8.2->8.4 --> 2 units transfuse on 11/15 --> will need to follow as outpatient and may need chelation therapy --> GI workup with egd showed gastritis # Failure to thrive (FTT) - decreased bmi and low protein --> cea 4.3 --> will obtain q3 day caloric counts --> mirtazapine as appetite stimulant --> GI consult on a prn basis, as needed for endosc # Asystole with pauses may need pm per family --> as per cards recs # Sepsis, which has improved # PEG # Malnutrition. 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 Greatly appreciate consultation. Subjective Constitutional: Denies: no symptoms, chills, fever, malaise, weakness, other HEENT: Denies: no symptoms, eye pain, blurred vision, tearing, double vision, ear pain, ear discharge, nose pain, nose congestion, throat pain, throat swelling, mouth pain, mouth swelling, other Cardiovascular: Denies: no symptoms, chest pain, edema, irregular heart rate, lightheadedness, palpitations, syncope, other Respiratory: Denies: no symptoms, cough, shortness of breath, SOB with excertion, SOB at rest, sputum, wheezing, other Gastrointestinal/Abdominal: Denies: no symptoms, abdomen distended, abdominal pain, black stools, tarry stools, blood in stool, constipated, diarrhea, difficulty swallowing, nausea, poor appetite, poor fluid intake, rectal bleeding , vomiting, other Endocrine: Denies: no symptoms, excessive sweating, flushing, intolerance to cold, intolerance to heat, increased hunger, increased thirst, increased urine, unexplained weight gain, unexplained weight loss, other Hematologic/Lymphatic: Denies: no symptoms, anemia, easy bleeding, easy bruising, adenopathy, other Allergies: Coded Allergies: TERAZOSIN (Verified Allergy, Unknown, 10/27/17) Subjective 11/16: in the icu, is off pressors, doing better, no bleeding 11/18: no bleeding, remains on doxy and zosyn, no bleeding reported 11/19: out of the icu, on vent/trach, no major changes, jimenez kidd 11/20: no bleeding noted, no night sweats, meds reviewed, no f/c 11/21: on vent, obtunded, with gt ongong, with picc, no bleeding .17: stricture advanced through with uro, with crabtree, labs noted 11/23: no events to report, no bleeding, labs reviewed, in icu 11/24: remains in the icu, with asystole, pending discussion with [facility] re pM 11/25: continues to have pauses, no bleeding, seen by cards, no events 11/26: no ets, no bleeding noted, no night sweats, no f/c 11/27: hgb 8.2, no bleeding or chills, no major changes on trach/vent, jimenez KIDD 11/28: agitated today, on vent/trach, jimenez kidd, potential dc to [facility] 11/29: obtunded, is out of the unit, labs noted, wbc 24k 11/30: feeds on hold, no bleeding reported, no night sweats Objective Objective Current Medications Medications (Trade) Dose Ordered Sig/Ruthie Route PRN Reason Start Time Stop Time Status Last Admin Dose Admin Acetaminophen (Tylenol) 650 mg Q6H PRN GT Mild Pain/Temp > 100.5 11/28/18 06:05 12/15/18 06:04 11/28/18 21:40 Atropine Sulfate (Atropine 0.4mg/ ml) 0.4 mg Q5M PRN IVP HR<30 for 30 seconds 11/28/18 06:09 12/28/18 06:08 Bisacodyl (Dulcolax) 10 mg DAILYPRN PRN RECTAL Constipation 11/28/18 06:05 12/18/18 06:04 Chlorhexidine Gluconate (Rachael-Hex 2%) 1 applic DAILY@2000 TOPIC 11/28/18 20:00 12/15/18 19:59 11/29/18 20:38 Ciprofloxacin (Cipro 500mg tab) 500 mg EVERY 12 HOURS GT 11/29/18 09:00 12/06/18 08:59 11/30/18 08:52 Colistimethate Sodium (Colistin *inhalation use only*) 75 mg Q12HR@ INH 11/29/18 22:00 12/06/18 21:59 11/30/18 11:23 Dextrose 1,000 ml @ 75 mls/hr [id number] IV 11/29/18 02:00 12/29/18 01:59 11/30/18 05:16 Dextrose (Dextrose 50%) 25 ml Q30M PRN IV Hypoglycemia 11/28/18 06:15 12/15/18 09:38 Dextrose (Dextrose 50%) 50 ml Q30M PRN IV Hypoglycemia 11/28/18 06:15 12/15/18 05:44 Insulin Aspart (NovoLOG) BEFORE MEALS AND HS SUBQ 11/28/18 06:30 12/15/18 06:29 11/30/18 11:28 Lansoprazole (Prevacid) 30 mg BID GT 11/28/18 18:00 12/28/18 17:59 11/30/18 08:52 Lorazepam (Ativan 2mg/ml 1ml) 0.5 mg Q2H PRN IV For Anxiety 11/29/18 13:51 12/06/18 13:50 11/29/18 21:27 Olanzapine (ZyPREXA Zydis) 7.5 mg DAILY GT 11/28/18 09:00 12/15/18 08:59 11/30/18 08:52 Last 24 Hour Vital Signs Date Time Temp Pulse Resp B/P (MAP) Pulse Ox O2 Delivery O2 Flow Rate FiO2 11/30/18 14:29 84 24 40 11/30/18 12:57 83 22 40 11/30/18 12:00 99.0 87 22 152/76 (101) 92 11/30/18 12:00 40 11/30/18 12:00 82 11/30/18 12:00 Mechanical Ventilator 11/30/18 11:33 75 20 100 Mechanical Ventilator 11/30/18 11:23 82 22 40 11/30/18 09:07 78 23 40 11/30/18 08:00 87 11/30/18 08:00 40 11/30/18 08:00 99.0 87 22 152/76 (101) 92 11/30/18 08:00 Mechanical Ventilator 11/30/18 06:39 87 22 40 11/30/18 04:55 90 22 40 11/30/18 04:00 98.8 91 22 143/69 (93) 96 11/30/18 04:00 Mechanical Ventilator 11/30/18 04:00 40 11/30/18 03:35 89 11/30/18 02:57 98 22 40 11/30/18 02:56 98 22 98 Mechanical Ventilator 40 11/30/18 00:45 105 22 40 11/30/18 00:00 99.7 99 26 148/68 (94) 93 11/30/18 00:00 Mechanical Ventilator 11/29/18 23:01 105 22 99 Mechanical Ventilator 40 11/29/18 22:46 96 26 99 Mechanical Ventilator 40 96 26 40 11/29/18 20:51 115 22 40 11/29/18 20:39 97 11/29/18 20:00 40 11/29/18 20:00 99.8 98 25 144/74 (97) 94 11/29/18 20:00 Mechanical Ventilator 11/29/18 18:45 92 23 40 11/29/18 16:51 109 22 40 11/29/18 16:00 98.0 83 24 156/78 (104) 95 11/29/18 16:00 40 11/29/18 16:00 86 11/29/18 16:00 Mechanical Ventilator 11/29/18 14:51 89 25 40 11/29/18 13:16 67 22 40 11/29/18 12:00 40 11/29/18 12:00 98.7 87 24 149/80 (103) 92 11/29/18 12:00 Mechanical Ventilator 11/29/18 11:37 85 11/29/18 10:39 64 22 40 11/29/18 08:31 91 22 50 11/29/18 08:00 50 11/29/18 08:00 Mechanical Ventilator 11/29/18 08:00 98.6 94 23 157/71 (99) 95 11/29/18 07:35 70 11/29/18 07:21 79 22 50 11/29/18 05:24 83 23 50 11/29/18 04:00 Mechanical Ventilator 11/29/18 04:00 50 11/29/18 04:00 98.6 82 22 154/66 (95) 94 11/29/18 04:00 82 11/29/18 03:30 84 22 50 11/29/18 01:30 88 22 50 11/29/18 00:00 99.3 82 22 154/68 (96) 96 11/29/18 00:00 82 11/29/18 00:00 Mechanical Ventilator 11/28/18 23:30 90 21 50 11/28/18 22:10 99.3 11/28/18 21:17 91 22 50 11/28/18 20:00 Mechanical Ventilator 11/28/18 20:00 99.7 92 22 152/78 (102) 99 11/28/18 20:00 92 11/28/18 20:00 50 11/28/18 19:30 80 22 60 11/28/18 16:30 82 22 100 Mechanical Ventilator 50 69 20 50 11/28/18 16:00 50 11/28/18 16:00 99.4 96 24 125/50 (75) 98 11/28/18 16:00 Mechanical Ventilator 11/28/18 16:00 102 11/28/18 14:50 81 22 100 Mechanical Ventilator 50 69 20 50 Intake and Output 11/29/18 11/30/18 19:00 07:00 Intake Total 1535 ml 1585 ml Output Total 200 ml 200 ml Balance 1335 ml 1385 ml Intake Free Water 180 ml 100 ml IV Total 750 ml 880 ml Tube Feeding 605 ml 605 ml Output Urine Total 200 ml 200 ml # Bowel Movements 1 2 Labs Test 11/27/18 18:00 11/28/18 05:00 11/29/18 04:05 11/29/18 08:15 Stool Occult Blood Positive (NEGATIVE) White Blood Count 11.4 K/UL (4.8-10.8) 24.3 K/UL (4.8-10.8) Red Blood Count 3.05 M/UL (4.70-6.10) 3.14 M/UL (4.70-6.10) Hemoglobin 8.2 G/DL (14.2-18.0) 8.6 G/DL (14.2-18.0) Hematocrit 26.3 % (42.0-52.0) 27.2 % (42.0-52.0) Mean Corpuscular Volume 86 FL (80-99) 87 FL (80-99) Mean Corpuscular Hemoglobin 26.9 PG (27.0-31.0) 27.4 PG (27.0-31.0) Mean Corpuscular Hemoglobin Concent 31.2 G/DL (32.0-36.0) 31.7 G/DL (32.0-36.0) Red Cell Distribution Width 16.1 % (11.6-14.8) 16.3 % (11.6-14.8) Platelet Count 204 K/UL (150-450) 229 K/UL (150-450) Mean Platelet Volume 6.6 FL (6.5-10.1) 7.2 FL (6.5-10.1) Neutrophils (%) (Auto) 71.7 % (45.0-75.0) % (45.0-75.0) Lymphocytes (%) (Auto) 14.5 % (20.0-45.0) % (20.0-45.0) Monocytes (%) (Auto) 10.7 % (1.0-10.0) % (1.0-10.0) Eosinophils (%) (Auto) 1.8 % (0.0-3.0) % (0.0-3.0) Basophils (%) (Auto) 1.2 % (0.0-2.0) % (0.0-2.0) Sodium Level 152 MMOL/L (136-145) 147 MMOL/L (136-145) Potassium Level 4.1 MMOL/L (3.5-5.1) 4.2 MMOL/L (3.5-5.1) Chloride Level 114 MMOL/L (98-107) 110 MMOL/L (98-107) Carbon Dioxide Level 38 MMOL/L (21-32) 35 MMOL/L (21-32) Anion Gap 0 mmol/L (5-15) 3 mmol/L (5-15) Blood Urea Nitrogen 18 mg/dL (7-18) 18 mg/dL (7-18) Creatinine 0.9 MG/DL (0.55-1.30) 0.8 MG/DL (0.55-1.30) Estimat Glomerular Filtration Rate mL/min (>60) mL/min (>60) Glucose Level 98 MG/DL (74-106) 134 MG/DL (74-106) Uric Acid 2.4 MG/DL (2.6-7.2) Calcium Level 8.3 MG/DL (8.5-10.1) 8.2 MG/DL (8.5-10.1) Phosphorus Level 3.1 MG/DL (2.5-4.9) 2.7 MG/DL (2.5-4.9) Magnesium Level 1.8 MG/DL (1.8-2.4) 1.7 MG/DL (1.8-2.4) Total Bilirubin 0.3 MG/DL (0.2-1.0) 0.3 MG/DL (0.2-1.0) Gamma Glutamyl Transpeptidase 94 U/L (5-85) Aspartate Amino Transf (AST/SGOT) 25 U/L (15-37) 26 U/L (15-37) Alanine Aminotransferase (ALT/SGPT) 54 U/L (12-78) 46 U/L (12-78) Alkaline Phosphatase 105 U/L (46-116) 107 U/L (46-116) C-Reactive Protein, Quantitative 7.2 mg/dL (0.00-0.90) 12.4 mg/dL (0.00-0.90) Pro-B-Type Natriuretic Peptide 3695 pg/mL (0-125) 4751 pg/mL (0-125) Total Protein 5.9 G/DL (6.4-8.2) 6.3 G/DL (6.4-8.2) Albumin 1.7 G/DL (3.4-5.0) 1.7 G/DL (3.4-5.0) Globulin 4.2 g/dL 4.6 g/dL Albumin/Globulin Ratio 0.4 (1.0-2.7) 0.4 (1.0-2.7) Differential Total Cells Counted 100 Neutrophils % (Manual) 86 % (45-75) Lymphocytes % (Manual) 5 % (20-45) Monocytes % (Manual) 9 % (1-10) Eosinophils % (Manual) 0 % (0-3) Basophils % (Manual) 0 % (0-2) Band Neutrophils 0 % (0-8) Platelet Estimate Adequate Platelet Morphology Normal Hypochromasia 1+ Anisocytosis 1+ Lactic Acid Level 0.60 mmol/L (0.4-2.0) Test 11/30/18 02:50 White Blood Count 28.2 K/UL (4.8-10.8) Red Blood Count 3.06 M/UL (4.70-6.10) Hemoglobin 8.4 G/DL (14.2-18.0) Hematocrit 26.5 % (42.0-52.0) Mean Corpuscular Volume 87 FL (80-99) Mean Corpuscular Hemoglobin 27.4 PG (27.0-31.0) Mean Corpuscular Hemoglobin Concent 31.6 G/DL (32.0-36.0) Red Cell Distribution Width 16.3 % (11.6-14.8) Platelet Count 217 K/UL (150-450) Mean Platelet Volume 7.0 FL (6.5-10.1) Neutrophils (%) (Auto) % (45.0-75.0) Lymphocytes (%) (Auto) % (20.0-45.0) Monocytes (%) (Auto) % (1.0-10.0) Eosinophils (%) (Auto) % (0.0-3.0) Basophils (%) (Auto) % (0.0-2.0) Differential Total Cells Counted 100 Neutrophils % (Manual) 89 % (45-75) Lymphocytes % (Manual) 4 % (20-45) Monocytes % (Manual) 7 % (1-10) Eosinophils % (Manual) 0 % (0-3) Basophils % (Manual) 0 % (0-2) Band Neutrophils 0 % (0-8) Platelet Estimate Adequate Platelet Morphology Normal Hypochromasia 1+ Anisocytosis 1+ Height (Feet): 5 Height (Inches): 5.00 Weight (Pounds): 170 Objective Vitals: reviewed Gen: no apparent distress Head: normocephalic EENT: normal ENT inspection Respiratory: other - intubated vent+ Cardiovascular: normal rate Gastrointestinal: gt - c/d/i Rectal: deferred Genitourinary: no CVA tenderness Skin: normal color +++ decub : ++ Beny Fields MD Nov 30, 2018 14:33
--- NOTE | 2018-11-30 15:45 | Surgery Progress Note ---
Surgery Progress Note Subjective Additional Comments Acute worsening leukocytosis. Labs noted. Chest x-ray noted. Exam otherwise stable. Microbiology identified Objective Last 24 Hour Vital Signs Date Time Temp Pulse Resp B/P (MAP) Pulse Ox O2 Delivery O2 Flow Rate FiO2 11/30/18 14:29 84 24 40 11/30/18 12:57 83 22 40 11/30/18 12:00 99.0 87 22 152/76 (101) 92 11/30/18 12:00 40 11/30/18 12:00 82 11/30/18 12:00 Mechanical Ventilator 11/30/18 11:33 75 20 100 Mechanical Ventilator 11/30/18 11:23 82 22 40 11/30/18 09:07 78 23 40 11/30/18 08:00 87 11/30/18 08:00 40 11/30/18 08:00 99.0 87 22 152/76 (101) 92 11/30/18 08:00 Mechanical Ventilator 11/30/18 06:39 87 22 40 11/30/18 04:55 90 22 40 11/30/18 04:00 98.8 91 22 143/69 (93) 96 11/30/18 04:00 Mechanical Ventilator 11/30/18 04:00 40 11/30/18 03:35 89 11/30/18 02:57 98 22 40 11/30/18 02:56 98 22 98 Mechanical Ventilator 40 11/30/18 00:45 105 22 40 11/30/18 00:00 99.7 99 26 148/68 (94) 93 11/30/18 00:00 Mechanical Ventilator 11/29/18 23:01 105 22 99 Mechanical Ventilator 40 11/29/18 22:46 96 26 99 Mechanical Ventilator 40 96 26 40 11/29/18 20:51 115 22 40 11/29/18 20:39 97 11/29/18 20:00 40 11/29/18 20:00 99.8 98 25 144/74 (97) 94 11/29/18 20:00 Mechanical Ventilator 11/29/18 18:45 92 23 40 11/29/18 16:51 109 22 40 11/29/18 16:00 98.0 83 24 156/78 (104) 95 11/29/18 16:00 40 11/29/18 16:00 86 11/29/18 16:00 Mechanical Ventilator I&O Intake and Output 11/29/18 11/30/18 19:00 07:00 Intake Total 1535 ml 1585 ml Output Total 200 ml 200 ml Balance 1335 ml 1385 ml Intake Free Water 180 ml 100 ml IV Total 750 ml 880 ml Tube Feeding 605 ml 605 ml Output Urine Total 200 ml 200 ml # Bowel Movements 1 2 Dressing: saturated Wound: other Drains: other Cardiovascular: RSR Respiratory: decreased breath sounds Abdomen: soft, present bowel sounds, non-distended Extremities: no cyanosis, other Laboratory Tests Test 11/30/18 02:50 White Blood Count 28.2 K/UL (4.8-10.8) *H Red Blood Count 3.06 M/UL (4.70-6.10) L Hemoglobin 8.4 G/DL (14.2-18.0) L Hematocrit 26.5 % (42.0-52.0) L Mean Corpuscular Volume 87 FL (80-99) Mean Corpuscular Hemoglobin 27.4 PG (27.0-31.0) Mean Corpuscular Hemoglobin Concent 31.6 G/DL (32.0-36.0) L Red Cell Distribution Width 16.3 % (11.6-14.8) H Platelet Count 217 K/UL (150-450) Mean Platelet Volume 7.0 FL (6.5-10.1) Neutrophils (%) (Auto) % (45.0-75.0) Lymphocytes (%) (Auto) % (20.0-45.0) Monocytes (%) (Auto) % (1.0-10.0) Eosinophils (%) (Auto) % (0.0-3.0) Basophils (%) (Auto) % (0.0-2.0) Differential Total Cells Counted 100 Neutrophils % (Manual) 89 % (45-75) H Lymphocytes % (Manual) 4 % (20-45) L Monocytes % (Manual) 7 % (1-10) Eosinophils % (Manual) 0 % (0-3) Basophils % (Manual) 0 % (0-2) Band Neutrophils 0 % (0-8) Platelet Estimate Adequate Platelet Morphology Normal Hypochromasia 1+ Anisocytosis 1+ Plan Problems: (1) Severe sepsis Assessment & Plan: leukocytosis, anemia, lactic acidosis, fevers IV Abx imaging noted and reviewed US with no stones or dilated ducts elevated lft's likely due to liver disease exam as below cont abx trend labs leave crabtree for a few weeks thank you will follow with recs Findings: Exam is somewhat limited, due to gastrostomy tube and overlying bowel gas limiting visualization of the abdominal aorta Gallbladder is unremarkable, without stones, wall thickening, nor pericholecystic fluid. Sonographic Carl's sign is negative. Common bile duct measures 4 mm in diameter. No intrahepatic biliary ductal dilatation. Liver demonstrates normal echogenicity, no focal abnormality. It demonstrates slight surface nodularity. It is enlarged. There is a 1 cm cyst which appears adjacent to the gallbladder wall. This is probably a small exophytic hepatic cyst. Portal vein and hepatic veins are patent. Pancreas is unremarkable. Spleen is unremarkable. Left kidney measures 9.2 cm in length. Right kidney measures 10.2 cm length. Both kidneys demonstrate normal echogenicity. There is no hydronephrosis. Both kidneys demonstrate cysts. . Abdominal aorta is partially obscured by bowel gas, visualized portions are non-aneurysmal . Impression: Negative for gallstones or dilated bile ducts Hepatic surface nodularity, may indicate early cirrhotic changes Hepatomegaly Incidental finding bilateral renal cysts (2) Malnutrition Assessment & Plan: DAILY ESTIMATED NEEDS: Needs based on Critical care, sepsis 71.8 kg 22-30 kcals/kg 8820-6829 total kcals 1.2-2 g protein/kg 86- 144 g total protein 25-30 mL/kg 1795- 2154 total fluid mLs NUTRITION DIAGNOSIS: * Swallowing difficulty R/T respiratory status and dysphagia as evidenced by pt is vent dep, on TF. * Altered nutrition related lab values r/t sepsis, clinical status, h/o Diabetes as evidenced by critically elev WBC (47.2), low Hgb (6.6), elev BNP, low BP (96/41), BG 191, POC 179. CURRENT TF: Jevity 1.2 @ 70mL/hr x 20hr - NOW NPO ENTERAL NUTRITION RECOMMENDATIONS: Vital 1.2 @55mL/hr x24 hrs to provide 1320mL, 1584kcal, 99g pro, 1071mL free H2O * As medically appropriate to feed, rec TF change to VITAL 1.2 for critical care. * Start Vital 1,2, @25mL, advance as tolerated 10ml/hr q4-6 hrs to goal * HOB over 30 degrees/ water flush per MD --- Low Hgb (6.6), NPO per GI-> rec trophic feeds when appropriate if pt remains hypotensive. ADDITIONAL RECOMMENDATIONS: * Per SNF: HT 68 inches WT 158 lbs + Daily calibrated bed scale wts * Change TF to Vital 1.2, as medically able to feed * Monitor lytes (replete as needed) * F/up w/ WC eval . (3) Sacral decubitus ulcer Assessment & Plan: Pt presented on admission with contractures and multiple pressure injuries. Partially opened DTPI L buttocks. Base of wound moist - viable with surrounding dark and fluctuant borders.(L)1.2cm x (W)1cm. Small amt of sanguineous exudate noted. No odor noted. Hyperpigmentation noted to sacrum. Historical scar from previous wound noted to L trochanter. Penile head retracted within foreskin and small wound noted within folds of foreskin. Wound is moist and viable. No odor or exudate noted. No erythema noted periwound. Resolving pressure injury plantar R heel. Base of wound 50% epithelialized, 50% moist and viable.(L)5.5cm x (W)6.5cm. Resolving pressure injury lateral L heel. Base of wound is moist and viable with surrounding hyperpigmentation.(L)0.6cm x (W)0.5cm. Scattered loose, dry brown skin noted to medial and posterior L heel. Tx.Plan: Apply Moisture Barrier Paste to L buttocks and sacrum. Cover with Optifoam drsg. Change every 3 days and prn. Cleanse head of penis with soap and water. Apply Bacitracin oint Twice Daily. Apply Betadine to R and L heel wounds. Cover each heel with Optifoam drsg. Daily and prn. APM/ABDELRAHMAN Mattress overlay. Reposition at least every 2hours and prn. Off-load heels with pillow. Additional Comments C. difficile sent Don Carvalho Nov 30, 2018 15:45
[2018-11-30 16:00] VITALS: BP 156/67
--- NOTE | 2018-11-30 19:49 | Pulmonology Progress Note ---
Assessment/Plan Assessment/Plan Pulmonary Progress Note Assessment/Plan Impression: Patient with ho Pneumonia Ventilator dependant respiratory failure, CXR improving Severe sepsis - improved Leucocytosis NSTEMI Anemia Dysphagia s/p G tube Chronic wounds Dementia Organic Brain Syndrome Diabetes Chronic renal disease BPH Penile wound CHF H/o Hypertension severe Protein Calorie Malnutrition Plan antibiotic regimen noted monitor blood pressure HHN Q4 and monitor secretions and suction PRN on full vent support-AC- no wean DNAR multiorgan disease with poor prognosis monitor oxygen needs- and adjust monitor labs DVT and PUD prophylaxis Gtube feeds as able; monitor residuals and reflux aspiration monitor residuals for change 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 Otherwise little change Objective: WDWN NAD on vent and poorly responsive reduced breath sounds bilaterally with noted rhonchi [id number] without MRG NABS nontender no HSM; GT; non distended no CC mild edema nonfocal reduced LOC skin noted reviewed and edited Subjective ROS Limited/Unobtainable: No Allergies: Coded Allergies: TERAZOSIN (Verified Allergy, Unknown, 10/27/17) Objective Last 24 Hour Vital Signs Date Time Temp Pulse Resp B/P (MAP) Pulse Ox O2 Delivery O2 Flow Rate FiO2 11/30/18 19:00 88 24 40 11/30/18 17:02 89 22 40 11/30/18 16:00 40 11/30/18 16:00 98.2 86 22 156/67 (96) 92 11/30/18 16:00 80 11/30/18 16:00 Mechanical Ventilator 11/30/18 14:29 84 24 40 11/30/18 12:57 83 22 40 11/30/18 12:00 98.6 74 22 125/68 (87) 100 11/30/18 12:00 40 11/30/18 12:00 82 11/30/18 12:00 Mechanical Ventilator 11/30/18 11:33 75 20 100 Mechanical Ventilator 11/30/18 11:23 82 22 40 11/30/18 09:07 78 23 40 11/30/18 08:00 87 11/30/18 08:00 40 11/30/18 08:00 99.0 87 22 152/76 (101) 92 11/30/18 08:00 Mechanical Ventilator 11/30/18 06:39 87 22 40 11/30/18 04:55 90 22 40 11/30/18 04:00 98.8 91 22 143/69 (93) 96 11/30/18 04:00 Mechanical Ventilator 11/30/18 04:00 40 11/30/18 03:35 89 11/30/18 02:57 98 22 40 11/30/18 02:56 98 22 98 Mechanical Ventilator 40 11/30/18 00:45 105 22 40 11/30/18 00:00 99.7 99 26 148/68 (94) 93 11/30/18 00:00 Mechanical Ventilator 11/29/18 23:01 105 22 99 Mechanical Ventilator 40 11/29/18 22:46 96 26 99 Mechanical Ventilator 40 96 26 40 11/29/18 20:51 115 22 40 11/29/18 20:39 97 11/29/18 20:00 40 11/29/18 20:00 99.8 98 25 144/74 (97) 94 11/29/18 20:00 Mechanical Ventilator Intake and Output 11/29/18 11/30/18 18:59 06:59 Intake Total 1590 ml 1530 ml Output Total 200 ml 200 ml Balance 1390 ml 1330 ml Intake Free Water 180 ml 100 ml IV Total 750 ml 880 ml Tube Feeding 660 ml 550 ml Output Urine Total 200 ml 200 ml # Bowel Movements 1 2 Laboratory Tests 11/30/18 02:50: White Blood Count 28.2*H, Red Blood Count 3.06L, Hemoglobin 8.4L, Hematocrit 26.5L, Mean Corpuscular Volume 87, Mean Corpuscular Hemoglobin 27.4, Mean Corpuscular Hemoglobin Concent 31.6L, Red Cell Distribution Width 16.3H, Platelet Count 217, Mean Platelet Volume 7.0, Neutrophils (%) (Auto) , Lymphocytes (%) (Auto) , Monocytes (%) (Auto) , Eosinophils (%) (Auto) , Basophils (%) (Auto) , Differential Total Cells Counted 100, Neutrophils % ( Manual) 89H, Lymphocytes % (Manual) 4L, Monocytes % (Manual) 7, Eosinophils % ( Manual) 0, Basophils % (Manual) 0, Band Neutrophils 0, Platelet Estimate Adequate, Platelet Morphology Normal, Hypochromasia 1+, Anisocytosis 1+ Current Medications Medications (Trade) Dose Ordered Sig/Ruthie Route PRN Reason Start Time Stop Time Status Last Admin Dose Admin Acetaminophen (Tylenol) 650 mg Q6H PRN GT Mild Pain/Temp > 100.5 11/28/18 06:05 12/15/18 06:04 11/28/18 21:40 Atropine Sulfate (Atropine 0.4mg/ ml) 0.4 mg Q5M PRN IVP HR<30 for 30 seconds 11/28/18 06:09 12/28/18 06:08 Bisacodyl (Dulcolax) 10 mg DAILYPRN PRN RECTAL Constipation 11/28/18 06:05 12/18/18 06:04 Chlorhexidine Gluconate (Rachael-Hex 2%) 1 applic DAILY@2000 TOPIC 11/28/18 20:00 12/15/18 19:59 11/29/18 20:38 Ciprofloxacin (Cipro 500mg tab) 500 mg EVERY 12 HOURS GT 11/29/18 09:00 12/06/18 08:59 11/30/18 08:52 Colistimethate Sodium (Colistin *inhalation use only*) 75 mg Q12HR@ INH 11/29/18 22:00 12/06/18 21:59 11/30/18 11:23 Dextrose 1,000 ml @ 75 mls/hr [id number] IV 11/29/18 02:00 12/29/18 01:59 11/30/18 17:31 Dextrose (Dextrose 50%) 25 ml Q30M PRN IV Hypoglycemia 11/28/18 06:15 12/15/18 09:38 Dextrose (Dextrose 50%) 50 ml Q30M PRN IV Hypoglycemia 11/28/18 06:15 12/15/18 05:44 Insulin Aspart (NovoLOG) BEFORE MEALS AND HS SUBQ 11/28/18 06:30 12/15/18 06:29 11/30/18 16:29 Lansoprazole (Prevacid) 30 mg BID GT 11/28/18 18:00 12/28/18 17:59 11/30/18 17:30 Lorazepam (Ativan 2mg/ml 1ml) 0.5 mg Q2H PRN IV For Anxiety 11/29/18 13:51 12/06/18 13:50 11/29/18 21:27 Olanzapine (ZyPREXA Zydis) 7.5 mg DAILY GT 11/28/18 09:00 12/15/18 08:59 11/30/18 08:52 Booker Baumann MD Nov 30, 2018 19:49
[2018-11-30 20:00] VITALS: BP 147/72
[2018-11-30] MEDS: Dyna-Hex 2% Top Sol 2oz TOPIC SCH (20:53)
--- NOTE | 2018-11-30 21:55 | General Progress Note ---
Assessment/Plan Problem List: (1) Hypernatremia ICD Codes: E87.0 - Hyperosmolality and hypernatremia SNOMED: 88382099 (2) Rhabdomyolysis ICD Codes: M62.82 - Rhabdomyolysis SNOMED: 362548280 (3) Sacral decubitus ulcer ICD Codes: L89.159 - Pressure ulcer of sacral region, unspecified stage SNOMED: 976702291 (4) Severe sepsis ICD Codes: A41.9 - Sepsis, unspecified organism; R65.20 - Severe sepsis without septic shock SNOMED: 24529740 (5) Septic shock ICD Codes: A41.9 - Sepsis, unspecified organism; R65.21 - Severe sepsis with septic shock SNOMED: 90725181 (6) DM (7) Anemia ICD Codes: D64.9 - Anemia, unspecified SNOMED: 521786734 (8) Prostate enlargement ICD Codes: N40.0 - Benign prostatic hyperplasia without lower urinary tract symptoms SNOMED: 966132316 (9) Chronic renal disease ICD Codes: N18.9 - Chronic kidney disease, unspecified SNOMED: 797200775 (10) Ventilator dependence ICD Codes: Z99.11 - Dependence on respirator [ventilator] status SNOMED: 019845825 (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 - Gastrostomy status SNOMED: 754678531, 598742081 (12) Malnutrition ICD Codes: E46 - Unspecified protein-calorie malnutrition SNOMED: 95909391 Status: stable, unchanged Assessment/Plan: worsening leukocytosis polymicrobial pna not safe for dc bradycardia junctional rhythem edema chf persistent leukocytosis uti Subjective ROS Limited/Unobtainable: Yes Allergies: Coded Allergies: TERAZOSIN (Verified Allergy, Unknown, 10/27/17) Objective Last 24 Hour Vital Signs Date Time Temp Pulse Resp B/P (MAP) Pulse Ox O2 Delivery O2 Flow Rate FiO2 11/30/18 20:41 98 24 40 11/30/18 20:00 98.6 87 24 147/72 (97) 100 11/30/18 20:00 40 11/30/18 20:00 Mechanical Ventilator 11/30/18 19:25 85 11/30/18 19:00 88 24 40 11/30/18 17:02 89 22 40 11/30/18 16:00 40 11/30/18 16:00 98.2 86 22 156/67 (96) 92 11/30/18 16:00 80 11/30/18 16:00 Mechanical Ventilator 11/30/18 14:29 84 24 40 11/30/18 12:57 83 22 40 11/30/18 12:00 98.6 74 22 125/68 (87) 100 11/30/18 12:00 40 11/30/18 12:00 82 11/30/18 12:00 Mechanical Ventilator 11/30/18 11:33 75 20 100 Mechanical Ventilator 11/30/18 11:23 82 22 40 11/30/18 09:07 78 23 40 11/30/18 08:00 87 11/30/18 08:00 40 11/30/18 08:00 99.0 87 22 152/76 (101) 92 11/30/18 08:00 Mechanical Ventilator 11/30/18 06:39 87 22 40 11/30/18 04:55 90 22 40 11/30/18 04:00 98.8 91 22 143/69 (93) 96 11/30/18 04:00 Mechanical Ventilator 11/30/18 04:00 40 11/30/18 03:35 89 11/30/18 02:57 98 22 40 11/30/18 02:56 98 22 98 Mechanical Ventilator 40 11/30/18 00:45 105 22 40 11/30/18 00:00 99.7 99 26 148/68 (94) 93 11/30/18 00:00 Mechanical Ventilator 11/29/18 23:01 105 22 99 Mechanical Ventilator 40 11/29/18 22:46 96 26 99 Mechanical Ventilator 40 96 26 40 Intake and Output 11/29/18 11/30/18 18:59 06:59 Intake Total 1590 ml 1530 ml Output Total 200 ml 200 ml Balance 1390 ml 1330 ml Intake Free Water 180 ml 100 ml IV Total 750 ml 880 ml Tube Feeding 660 ml 550 ml Output Urine Total 200 ml 200 ml # Bowel Movements 1 2 Laboratory Tests 11/30/18 02:50: White Blood Count 28.2*H, Red Blood Count 3.06L, Hemoglobin 8.4L, Hematocrit 26.5L, Mean Corpuscular Volume 87, Mean Corpuscular Hemoglobin 27.4, Mean Corpuscular Hemoglobin Concent 31.6L, Red Cell Distribution Width 16.3H, Platelet Count 217, Mean Platelet Volume 7.0, Neutrophils (%) (Auto) , Lymphocytes (%) (Auto) , Monocytes (%) (Auto) , Eosinophils (%) (Auto) , Basophils (%) (Auto) , Differential Total Cells Counted 100, Neutrophils % ( Manual) 89H, Lymphocytes % (Manual) 4L, Monocytes % (Manual) 7, Eosinophils % ( Manual) 0, Basophils % (Manual) 0, Band Neutrophils 0, Platelet Estimate Adequate, Platelet Morphology Normal, Hypochromasia 1+, Anisocytosis 1+ Height (Feet): 5 Height (Inches): 5.00 Weight (Pounds): 170 Cardiovascular: normal rate Respiratory/Chest: lungs clear Trish Matias MD Nov 30, 2018 21:55
[2018-12-01] VITALS: BP 154/82
[2018-12-01 04:00] VITALS: BP 135/60
[2018-12-01] MEDS: NovoLOG Insulin Flexpen SUBQ SCH ×4 (05:59→20:51)
[2018-12-01 08:00] VITALS: BP 146/76
--- NOTE | 2018-12-01 09:28 | General Progress Note ---
Assessment/Plan Problem List: (1) GIB (gastrointestinal bleeding) ICD Codes: K92.2 - Gastrointestinal hemorrhage, unspecified SNOMED: 41609510 (2) PEG (percutaneous endoscopic gastrostomy) status ICD Codes: Z93.1 - Gastrostomy status SNOMED: 334216681, 514303926 (3) Chronic renal disease ICD Codes: N18.9 - Chronic kidney disease, unspecified SNOMED: 687893565 (4) Prostate enlargement ICD Codes: N40.0 - Benign prostatic hyperplasia without lower urinary tract symptoms SNOMED: 220166188 (5) Anemia ICD Codes: D64.9 - Anemia, unspecified SNOMED: 735735300 (6) Septic shock ICD Codes: A41.9 - Sepsis, unspecified organism; R65.21 - Severe sepsis with septic shock SNOMED: 88277069 (7) Gastrostomy tube dependent ICD Codes: Z93.1 - Gastrostomy status SNOMED: 716929429, 271773923 Status: stable, unchanged Assessment/Plan: ppi prn blood transfusion abx per ID now off pressors GTF EGD on hold given stable H&H and patient's poor medical condition hematuria>> fu urology recs Subjective ROS Limited/Unobtainable: No Allergies: Coded Allergies: TERAZOSIN (Verified Allergy, Unknown, 10/27/17) Objective Last 24 Hour Vital Signs Date Time Temp Pulse Resp B/P (MAP) Pulse Ox O2 Delivery O2 Flow Rate FiO2 12/01/18 08:00 40 12/01/18 08:00 99.5 94 32 146/76 (99) 93 12/01/18 07:21 91 23 40 12/01/18 04:42 89 23 40 12/01/18 04:00 97.7 83 23 135/60 (85) 92 12/01/18 04:00 Mechanical Ventilator 12/01/18 04:00 40 12/01/18 03:28 80 12/01/18 02:59 84 23 40 12/01/18 01:11 80 23 40 12/01/18 00:00 98.4 83 26 154/82 (106) 90 12/01/18 00:00 82 12/01/18 00:00 Mechanical Ventilator 11/30/18 23:41 82 11/30/18 22:49 55 22 40 11/30/18 20:41 98 24 40 11/30/18 20:00 98.6 87 24 147/72 (97) 100 11/30/18 20:00 40 11/30/18 20:00 Mechanical Ventilator 11/30/18 19:25 85 11/30/18 19:00 88 24 40 11/30/18 17:02 89 22 40 11/30/18 16:00 40 11/30/18 16:00 98.2 86 22 156/67 (96) 92 11/30/18 16:00 80 11/30/18 16:00 Mechanical Ventilator 11/30/18 14:29 84 24 40 11/30/18 12:57 83 22 40 11/30/18 12:00 98.6 74 22 125/68 (87) 100 11/30/18 12:00 40 11/30/18 12:00 82 11/30/18 12:00 Mechanical Ventilator 11/30/18 11:33 75 20 100 Mechanical Ventilator 11/30/18 11:23 82 22 40 Intake and Output 11/30/18 12/01/18 19:00 07:00 Intake Total 1560.0 ml 1662.5 ml Output Total 1000 ml 1250 ml Balance 560.0 ml 412.5 ml Intake Free Water 60 ml IV Total 900.0 ml 842.5 ml Tube Feeding 660 ml 660 ml Other 100 ml Output Urine Total 1000 ml 1250 ml # Bowel Movements 1 4 Height (Feet): 5 Height (Inches): 5.00 Weight (Pounds): 168 General Appearance: no apparent distress EENT: normal ENT inspection Neck: supple Cardiovascular: normal rate Respiratory/Chest: decreased breath sounds Abdomen: normal bowel sounds, non tender, soft Extremities: non-tender Juan Coronel MD Dec 01, 2018 09:28
[2018-12-01] MEDS: ZyPREXA Zydis 5mg tab GT SCH (09:44)
[2018-12-01] MEDS: Ciprofloxacin 500mg tab GT SCH ×2 (09:45→20:46)
[2018-12-01] MEDS: Colistin for inhalation INH SCH ×2 (10:29→22:16)
--- NOTE | 2018-12-01 11:09 | Nephrology Progress Note ---
Assessment/Plan Problem List: (1) Septic shock Assessment: WBCs rising (2) Ventilator dependence (3) Renal failure (ARF), acute on chronic (4) Prostate enlargement (5) Anemia (6) Hyperosmolality with hypernatremia Assessment Septic Shock Acute renal failure CKD underlying BPH Sever Anemia Chronic trach-Vent DM HypoAlbuminemia HyperNatremia Dementia Troponin elevation Plan WBC kevin and has hematuria ! Patient DNR , but not comfort care Will discuss the plan of care D5W for hyperNatremia now in SDU family agreed to DNR labs reviewed- mag IV as needed avoid Nephrotoxics transfuse as needed crabtree monitor urine out put and renal parameters per orders Subjective ROS Limited/Unobtainable: Yes Objective Objective Last 24 Hour Vital Signs Date Time Temp Pulse Resp B/P (MAP) Pulse Ox O2 Delivery O2 Flow Rate FiO2 12/01/18 10:30 84 23 40 12/01/18 09:40 91 12/01/18 09:00 83 23 93 Mechanical Ventilator 40 83 23 12/01/18 08:00 40 12/01/18 08:00 99.5 94 32 146/76 (99) 93 12/01/18 07:21 91 23 40 12/01/18 04:42 89 23 40 12/01/18 04:00 97.7 83 23 135/60 (85) 92 12/01/18 04:00 Mechanical Ventilator 12/01/18 04:00 40 12/01/18 03:28 80 12/01/18 02:59 84 23 40 12/01/18 01:11 80 23 40 12/01/18 00:00 98.4 83 26 154/82 (106) 90 12/01/18 00:00 82 12/01/18 00:00 Mechanical Ventilator 11/30/18 23:41 82 11/30/18 22:49 55 22 40 11/30/18 20:41 98 24 40 11/30/18 20:00 98.6 87 24 147/72 (97) 100 11/30/18 20:00 40 11/30/18 20:00 Mechanical Ventilator 11/30/18 19:25 85 11/30/18 19:00 88 24 40 11/30/18 17:02 89 22 40 11/30/18 16:00 40 11/30/18 16:00 98.2 86 22 156/67 (96) 92 11/30/18 16:00 80 11/30/18 16:00 Mechanical Ventilator 11/30/18 14:29 84 24 40 11/30/18 12:57 83 22 40 11/30/18 12:00 98.6 74 22 125/68 (87) 100 11/30/18 12:00 40 11/30/18 12:00 82 11/30/18 12:00 Mechanical Ventilator 11/30/18 11:33 75 20 100 Mechanical Ventilator 11/30/18 11:23 82 22 40 Intake and Output 11/30/18 12/01/18 19:00 07:00 Intake Total 1560.0 ml 1662.5 ml Output Total 1000 ml 1250 ml Balance 560.0 ml 412.5 ml Intake Free Water 60 ml IV Total 900.0 ml 842.5 ml Tube Feeding 660 ml 660 ml Other 100 ml Output Urine Total 1000 ml 1250 ml # Bowel Movements 1 4 Height (Feet): 5 Height (Inches): 5.00 Weight (Pounds): 168 General Appearance: no apparent distress EENT: other - vented Cardiovascular: normal rate Respiratory/Chest: decreased breath sounds Abdomen: distended Objective no change Randolph Fernandes MD Dec 01, 2018 11:09
--- NOTE | 2018-12-01 11:53 | Hematology/Onc Progress Note ---
Assessment/Plan Assessment/Plan ASSESSMENT AND RECOMMENDATIONS # Leukocytosis. Likely related to underlying infection with sepsis and elevated severely on admission --> Imaging has been reviewed. Shows cxr left lung inil/v edema --> Blood cs and urine cx are reviewed --> Has been started on abx, empiric tx (zosyn)--> colistin/cipro --> PERIPHERAL SMEAR SHOWS ATYPICAL LYMPHOCYTES--> has stabilized, improved --> Flow cytometry ordered with pathologist -> no atypical findings are noted --> wbc 52k-->47k-->29k->16-->12-->14->12-->12-->21-->14->11->15->9-->11.4->24k- >28k --> picc was repositioned --> is off of any steriods, daily md review # Anemia of chronic disease, due to underlying chronic medical issues, multifactorial. --> Anemia w/u has been ordered --> with hyperferritinemia --> No evidence of hemolysis noted, peripheral smear has been reviewed --> Hgb goal >7. Transfuse as needed --> hgb trend 7.5-->6.6->9.1-->9.2-->8.9-->9.9->8.3-->8.5-->9.3-->8.2->8.4 --> 2 units transfuse on 11/15 --> will need to follow as outpatient and may need chelation therapy --> GI workup with egd showed gastritis # Failure to thrive (FTT) - decreased bmi and low protein --> cea 4.3 --> will obtain q3 day caloric counts --> mirtazapine as appetite stimulant --> GI consult on a prn basis, as needed for endosc # Asystole with pauses may need pm per family --> as per cards recs # Sepsis, which has improved --> abx as per id # dysphagia s/p PEG # Malnutrition. 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 Greatly appreciate consultation. Subjective Constitutional: Denies: no symptoms, chills, fever, malaise, weakness, other Cardiovascular: Denies: no symptoms, chest pain, edema, irregular heart rate, lightheadedness, palpitations, syncope, other Respiratory: Denies: no symptoms, cough, shortness of breath, SOB with excertion, SOB at rest, sputum, wheezing, other Genitourinary: Denies: no symptoms, burning, discharge, frequency, flank pain, hematuria, incontinence, pain, urgency, other Neurologic/Psychiatric: Denies: no symptoms, anxiety, depressed, emotional problems, headache, numbness, paresthesia, pre-existing deficit, seizure, tingling, tremors, weakness, other Endocrine: Denies: no symptoms, excessive sweating, flushing, intolerance to cold, intolerance to heat, increased hunger, increased thirst, increased urine, unexplained weight gain, unexplained weight loss, other Allergies: Coded Allergies: TERAZOSIN (Verified Allergy, Unknown, 10/27/17) Subjective 11/16: in the icu, is off pressors, doing better, no bleeding 11/18: no bleeding, remains on doxy and zosyn, no bleeding reported 11/19: out of the icu, on vent/trach, no major changes, jimenez rn 11/20: no bleeding noted, no night sweats, meds reviewed, no f/c 11/21: on vent, obtunded, with gt ongong, with picc, no bleeding .: stricture advanced through with uro, with crabtree, labs noted 11/23: no events to report, no bleeding, labs reviewed, in icu 11/24: remains in the icu, with asystole, pending discussion with marlyn re pM 11/25: continues to have pauses, no bleeding, seen by cards, no events 11/26: no ets, no bleeding noted, no night sweats, no f/c 11/27: hgb 8.2, no bleeding or chills, no major changes on trach/vent, jimenez KIDD 11/28: agitated today, on vent/trach, jimenez kidd, potential dc to [facility] 11/29: obtunded, is out of the unit, labs noted, wbc 24k 11/30: gt feeds on hold, no bleeding reported, no night sweats 12/01: is on abx, no bleeding, no f/c, no night sweats noted Objective Objective Current Medications Medications (Trade) Dose Ordered Sig/Ruthie Route PRN Reason Start Time Stop Time Status Last Admin Dose Admin Acetaminophen (Tylenol) 650 mg Q6H PRN GT Mild Pain/Temp > 100.5 11/28/18 06:05 12/15/18 06:04 11/28/18 21:40 Atropine Sulfate (Atropine 0.4mg/ ml) 0.4 mg Q5M PRN IVP HR<30 for 30 seconds 11/28/18 06:09 12/28/18 06:08 Bisacodyl (Dulcolax) 10 mg DAILYPRN PRN RECTAL Constipation 11/28/18 06:05 12/18/18 06:04 Chlorhexidine Gluconate (Rachael-Hex 2%) 1 applic DAILY@1999 TOPIC 11/28/18 20:00 12/15/18 19:59 11/30/18 20:53 Ciprofloxacin (Cipro 500mg tab) 500 mg EVERY 12 HOURS GT 11/29/18 09:00 12/06/18 08:59 12/01/18 09:45 Colistimethate Sodium (Colistin *inhalation use only*) 75 mg Q12HR@ INH 11/29/18 22:00 12/06/18 21:59 12/01/18 10:29 Dextrose 1,000 ml @ 75 mls/hr [id number] IV 11/29/18 02:00 12/29/18 01:59 12/01/18 06:46 Dextrose (Dextrose 50%) 25 ml Q30M PRN IV Hypoglycemia 11/28/18 06:15 12/15/18 09:38 Dextrose (Dextrose 50%) 50 ml Q30M PRN IV Hypoglycemia 11/28/18 06:15 12/15/18 05:44 Insulin Aspart (NovoLOG) BEFORE MEALS AND HS SUBQ 11/28/18 06:30 12/15/18 06:29 12/01/18 05:59 Lansoprazole (Prevacid) 30 mg BID GT 11/28/18 18:00 12/28/18 17:59 12/01/18 09:45 Lorazepam (Ativan 2mg/ml 1ml) 0.5 mg Q2H PRN IV For Anxiety 11/29/18 13:51 12/06/18 13:50 11/29/18 21:27 Olanzapine (ZyPREXA Zydis) 7.5 mg DAILY GT 11/28/18 09:00 12/15/18 08:59 12/01/18 09:44 Last 24 Hour Vital Signs Date Time Temp Pulse Resp B/P (MAP) Pulse Ox O2 Delivery O2 Flow Rate FiO2 12/01/18 10:30 84 23 40 12/01/18 09:40 91 12/01/18 09:00 83 23 93 Mechanical Ventilator 40 83 23 12/01/18 08:00 40 12/01/18 08:00 99.5 94 32 146/76 (99) 93 12/01/18 07:21 91 23 40 12/01/18 04:42 89 23 40 12/01/18 04:00 97.7 83 23 135/60 (85) 92 12/01/18 04:00 Mechanical Ventilator 12/01/18 04:00 40 12/01/18 03:28 80 12/01/18 02:59 84 23 40 12/01/18 01:11 80 23 40 12/01/18 00:00 98.4 83 26 154/82 (106) 90 12/01/18 00:00 82 12/01/18 00:00 Mechanical Ventilator 11/30/18 23:41 82 11/30/18 22:49 55 22 40 11/30/18 20:41 98 24 40 11/30/18 20:00 98.6 87 24 147/72 (97) 100 11/30/18 20:00 40 11/30/18 20:00 Mechanical Ventilator 11/30/18 19:25 85 11/30/18 19:00 88 24 40 11/30/18 17:02 89 22 40 11/30/18 16:00 40 11/30/18 16:00 98.2 86 22 156/67 (96) 92 11/30/18 16:00 80 11/30/18 16:00 Mechanical Ventilator 11/30/18 14:29 84 24 40 11/30/18 12:57 83 22 40 11/30/18 12:00 98.6 74 22 125/68 (87) 100 11/30/18 12:00 40 11/30/18 12:00 82 11/30/18 12:00 Mechanical Ventilator 11/30/18 11:33 75 20 100 Mechanical Ventilator 11/30/18 11:23 82 22 40 11/30/18 09:07 78 23 40 11/30/18 08:00 87 11/30/18 08:00 40 11/30/18 08:00 99.0 87 22 152/76 (101) 92 11/30/18 08:00 Mechanical Ventilator 11/30/18 06:39 87 22 40 11/30/18 04:55 90 22 40 11/30/18 04:00 98.8 91 22 143/69 (93) 96 11/30/18 04:00 Mechanical Ventilator 11/30/18 04:00 40 11/30/18 03:35 89 11/30/18 02:57 98 22 40 11/30/18 02:56 98 22 98 Mechanical Ventilator 40 11/30/18 00:45 105 22 40 11/30/18 00:00 99.7 99 26 148/68 (94) 93 11/30/18 00:00 Mechanical Ventilator 11/29/18 23:01 105 22 99 Mechanical Ventilator 40 11/29/18 22:46 96 26 99 Mechanical Ventilator 40 96 26 40 11/29/18 20:51 115 22 40 11/29/18 20:39 97 11/29/18 20:00 40 11/29/18 20:00 99.8 98 25 144/74 (97) 94 11/29/18 20:00 Mechanical Ventilator 11/29/18 18:45 92 23 40 11/29/18 16:51 109 22 40 11/29/18 16:00 98.0 83 24 156/78 (104) 95 11/29/18 16:00 40 11/29/18 16:00 86 11/29/18 16:00 Mechanical Ventilator 11/29/18 14:51 89 25 40 11/29/18 13:16 67 22 40 11/29/18 12:00 40 11/29/18 12:00 98.7 87 24 149/80 (103) 92 11/29/18 12:00 Mechanical Ventilator Intake and Output 11/30/18 12/01/18 19:00 07:00 Intake Total 1560.0 ml 1662.5 ml Output Total 1000 ml 1250 ml Balance 560.0 ml 412.5 ml Intake Free Water 60 ml IV Total 900.0 ml 842.5 ml Tube Feeding 660 ml 660 ml Other 100 ml Output Urine Total 1000 ml 1250 ml # Bowel Movements 1 4 Labs Test 11/29/18 04:05 11/29/18 08:15 11/30/18 02:50 White Blood Count 24.3 K/UL (4.8-10.8) 28.2 K/UL (4.8-10.8) Red Blood Count 3.14 M/UL (4.70-6.10) 3.06 M/UL (4.70-6.10) Hemoglobin 8.6 G/DL (14.2-18.0) 8.4 G/DL (14.2-18.0) Hematocrit 27.2 % (42.0-52.0) 26.5 % (42.0-52.0) Mean Corpuscular Volume 87 FL (80-99) 87 FL (80-99) Mean Corpuscular Hemoglobin 27.4 PG (27.0-31.0) 27.4 PG (27.0-31.0) Mean Corpuscular Hemoglobin Concent 31.7 G/DL (32.0-36.0) 31.6 G/DL (32.0-36.0) Red Cell Distribution Width 16.3 % (11.6-14.8) 16.3 % (11.6-14.8) Platelet Count 229 K/UL (150-450) 217 K/UL (150-450) Mean Platelet Volume 7.2 FL (6.5-10.1) 7.0 FL (6.5-10.1) Neutrophils (%) (Auto) % (45.0-75.0) % (45.0-75.0) Lymphocytes (%) (Auto) % (20.0-45.0) % (20.0-45.0) Monocytes (%) (Auto) % (1.0-10.0) % (1.0-10.0) Eosinophils (%) (Auto) % (0.0-3.0) % (0.0-3.0) Basophils (%) (Auto) % (0.0-2.0) % (0.0-2.0) Differential Total Cells Counted 100 100 Neutrophils % (Manual) 86 % (45-75) 89 % (45-75) Lymphocytes % (Manual) 5 % (20-45) 4 % (20-45) Monocytes % (Manual) 9 % (1-10) 7 % (1-10) Eosinophils % (Manual) 0 % (0-3) 0 % (0-3) Basophils % (Manual) 0 % (0-2) 0 % (0-2) Band Neutrophils 0 % (0-8) 0 % (0-8) Platelet Estimate Adequate Adequate Platelet Morphology Normal Normal Hypochromasia 1+ 1+ Anisocytosis 1+ 1+ Sodium Level 147 MMOL/L (136-145) Potassium Level 4.2 MMOL/L (3.5-5.1) Chloride Level 110 MMOL/L (98-107) Carbon Dioxide Level 35 MMOL/L (21-32) Anion Gap 3 mmol/L (5-15) Blood Urea Nitrogen 18 mg/dL (7-18) Creatinine 0.8 MG/DL (0.55-1.30) Estimat Glomerular Filtration Rate mL/min (>60) Glucose Level 134 MG/DL (74-106) Calcium Level 8.2 MG/DL (8.5-10.1) Phosphorus Level 2.7 MG/DL (2.5-4.9) Magnesium Level 1.7 MG/DL (1.8-2.4) Total Bilirubin 0.3 MG/DL (0.2-1.0) Aspartate Amino Transf (AST/SGOT) 26 U/L (15-37) Alanine Aminotransferase (ALT/SGPT) 46 U/L (12-78) Alkaline Phosphatase 107 U/L (46-116) C-Reactive Protein, Quantitative 12.4 mg/dL (0.00-0.90) Pro-B-Type Natriuretic Peptide 4751 pg/mL (0-125) Total Protein 6.3 G/DL (6.4-8.2) Albumin 1.7 G/DL (3.4-5.0) Globulin 4.6 g/dL Albumin/Globulin Ratio 0.4 (1.0-2.7) Lactic Acid Level 0.60 mmol/L (0.4-2.0) Height (Feet): 5 Height (Inches): 5.00 Weight (Pounds): 168 Objective Vitals: reviewed Gen: no apparent distress Head: normocephalic EENT: normal ENT inspection Respiratory: other - intubated vent+ Cardiovascular: normal rate Gastrointestinal: gt - c/d/i Rectal: deferred Genitourinary: no CVA tenderness Skin: normal color +++ decub : ++ Beny Fields MD Dec 01, 2018 11:53
[2018-12-01 12:00] VITALS: BP 139/64
--- NOTE | 2018-12-01 13:37 | Pulmonology Progress Note ---
Assessment/Plan Assessment/Plan Pulmonary Progress Note Assessment/Plan Impression: Patient with Pneumonia - KPC/Acinetobacter Ventilator dependant respiratory failure, CXR improving slighly Severe sepsis - improved Leucocytosis NSTEMI Anemia Dysphagia s/p G tube Chronic wounds Dementia Organic Brain Syndrome Diabetes Chronic renal disease BPH Penile wound CHF H/o Hypertension severe Protein Calorie Malnutrition Plan antibiotic regimen per iD monitor blood pressure HHN Q4 and monitor secretions and suction PRN on full vent support-AC- no wean DNAR multiorgan disease with poor prognosis monitor oxygen needs- and adjust monitor labs DVT and PUD prophylaxis Gtube feeds as able; monitor residuals and reflux aspiration monitor residuals for change will need intermediate care medications/laboratory data/nursing notes reviewed in detail note reviewed and edited care discussed with RN and RT Interval Events: care noted vitals stable poor LOC f ROS Limited/Unobtainable: Yes Condition: critical EKG Rhythm: Sinus Rhythm Residuals: minimal Tube Feeding Tolerated: yes Vital Signs Noted Labs Noted CXR: Impression: Evidence of slightly improved right pleural effusion. Otherwise little change Objective: WDWN NAD on vent and poorly responsive reduced breath sounds bilaterally with noted rhonchi [id number] without MRG NABS nontender no HSM; GT; non distended no CC mild edema nonfocal reduced LOC skin noted reviewed and edited Sputum: Organism 1 K.PNEUMONIAE CARBAPENEM RESIST GROWTH: 4+ only sens Colistin Organism 2 A.BAUMANII COMPLX - MDR GROWTH: 4+ Organism 3 PSEUDOMONAS AERUGINOSA GROWTH: 4+ Organism 4 PROTEUS MIRABILIS GROWTH: 4+ Subjective ROS Limited/Unobtainable: No Allergies: Coded Allergies: TERAZOSIN (Verified Allergy, Unknown, 10/27/17) Objective Last 24 Hour Vital Signs Date Time Temp Pulse Resp B/P (MAP) Pulse Ox O2 Delivery O2 Flow Rate FiO2 12/01/18 12:00 Mechanical Ventilator 12/01/18 12:00 40 12/01/18 10:30 84 23 40 12/01/18 09:40 91 12/01/18 09:00 83 23 93 Mechanical Ventilator 40 83 23 12/01/18 08:00 Mechanical Ventilator 12/01/18 08:00 40 12/01/18 08:00 99.5 94 32 146/76 (99) 93 12/01/18 07:21 91 23 40 12/01/18 04:42 89 23 40 12/01/18 04:00 97.7 83 23 135/60 (85) 92 12/01/18 04:00 Mechanical Ventilator 12/01/18 04:00 40 12/01/18 03:28 80 12/01/18 02:59 84 23 40 12/01/18 01:11 80 23 40 12/01/18 00:00 98.4 83 26 154/82 (106) 90 12/01/18 00:00 82 12/01/18 00:00 Mechanical Ventilator 11/30/18 23:41 82 11/30/18 22:49 55 22 40 11/30/18 20:41 98 24 40 11/30/18 20:00 98.6 87 24 147/72 (97) 100 11/30/18 20:00 40 11/30/18 20:00 Mechanical Ventilator 11/30/18 19:25 85 11/30/18 19:00 88 24 40 11/30/18 17:02 89 22 40 11/30/18 16:00 40 11/30/18 16:00 98.2 86 22 156/67 (96) 92 11/30/18 16:00 80 11/30/18 16:00 Mechanical Ventilator 11/30/18 14:29 84 24 40 Intake and Output 11/30/18 12/01/18 19:00 07:00 Intake Total 1560.0 ml 1662.5 ml Output Total 1000 ml 1250 ml Balance 560.0 ml 412.5 ml Intake Free Water 60 ml IV Total 900.0 ml 842.5 ml Tube Feeding 660 ml 660 ml Other 100 ml Output Urine Total 1000 ml 1250 ml # Bowel Movements 1 4 Current Medications Medications (Trade) Dose Ordered Sig/Ruthie Route PRN Reason Start Time Stop Time Status Last Admin Dose Admin Acetaminophen (Tylenol) 650 mg Q6H PRN GT Mild Pain/Temp > 100.5 11/28/18 06:05 12/15/18 06:04 11/28/18 21:40 Atropine Sulfate (Atropine 0.4mg/ ml) 0.4 mg Q5M PRN IVP HR<30 for 30 seconds 11/28/18 06:09 12/28/18 06:08 Bisacodyl (Dulcolax) 10 mg DAILYPRN PRN RECTAL Constipation 11/28/18 06:05 12/18/18 06:04 Chlorhexidine Gluconate (Rachael-Hex 2%) 1 applic DAILY@2000 TOPIC 11/28/18 20:00 12/15/18 19:59 11/30/18 20:53 Ciprofloxacin (Cipro 500mg tab) 500 mg EVERY 12 HOURS GT 11/29/18 09:00 12/06/18 08:59 12/01/18 09:45 Colistimethate Sodium (Colistin *inhalation use only*) 75 mg Q12HR@,22 INH 11/29/18 22:00 12/06/18 21:59 12/01/18 10:29 Dextrose 1,000 ml @ 75 mls/hr [id number] IV 11/29/18 02:00 12/29/18 01:59 12/01/18 06:46 Dextrose (Dextrose 50%) 25 ml Q30M PRN IV Hypoglycemia 11/28/18 06:15 12/15/18 09:38 Dextrose (Dextrose 50%) 50 ml Q30M PRN IV Hypoglycemia 11/28/18 06:15 12/15/18 05:44 Insulin Aspart (NovoLOG) BEFORE MEALS AND HS SUBQ 11/28/18 06:30 12/15/18 06:29 12/01/18 11:54 Lansoprazole (Prevacid) 30 mg BID GT 11/28/18 18:00 12/28/18 17:59 12/01/18 09:45 Lorazepam (Ativan 2mg/ml 1ml) 0.5 mg Q2H PRN IV For Anxiety 11/29/18 13:51 12/06/18 13:50 11/29/18 21:27 Olanzapine (ZyPREXA Zydis) 7.5 mg DAILY GT 11/28/18 09:00 12/15/18 08:59 12/01/18 09:44 Booker Baumann MD Dec 01, 2018 13:37
[2018-12-01] MEDS: Acetaminophen 650mg/20.3ml GT PRN (13:41)
--- NOTE | 2018-12-01 13:43 | Surgery Progress Note ---
Surgery Progress Note Subjective Additional Comments No acute events Objective Last 24 Hour Vital Signs Date Time Temp Pulse Resp B/P (MAP) Pulse Ox O2 Delivery O2 Flow Rate FiO2 12/01/18 12:00 Mechanical Ventilator 12/01/18 12:00 40 12/01/18 10:30 84 23 40 12/01/18 09:40 91 12/01/18 09:00 83 23 93 Mechanical Ventilator 40 83 23 12/01/18 08:00 Mechanical Ventilator 12/01/18 08:00 40 12/01/18 08:00 99.5 94 32 146/76 (99) 93 12/01/18 07:21 91 23 40 12/01/18 04:42 89 23 40 12/01/18 04:00 97.7 83 23 135/60 (85) 92 12/01/18 04:00 Mechanical Ventilator 12/01/18 04:00 40 12/01/18 03:28 80 12/01/18 02:59 84 23 40 12/01/18 01:11 80 23 40 12/01/18 00:00 98.4 83 26 154/82 (106) 90 12/01/18 00:00 82 12/01/18 00:00 Mechanical Ventilator 11/30/18 23:41 82 11/30/18 22:49 55 22 40 11/30/18 20:41 98 24 40 11/30/18 20:00 98.6 87 24 147/72 (97) 100 11/30/18 20:00 40 11/30/18 20:00 Mechanical Ventilator 11/30/18 19:25 85 11/30/18 19:00 88 24 40 11/30/18 17:02 89 22 40 11/30/18 16:00 40 11/30/18 16:00 98.2 86 22 156/67 (96) 92 11/30/18 16:00 80 11/30/18 16:00 Mechanical Ventilator 11/30/18 14:29 84 24 40 I&O Intake and Output 11/30/18 12/01/18 19:00 07:00 Intake Total 1560.0 ml 1662.5 ml Output Total 1000 ml 1250 ml Balance 560.0 ml 412.5 ml Intake Free Water 60 ml IV Total 900.0 ml 842.5 ml Tube Feeding 660 ml 660 ml Other 100 ml Output Urine Total 1000 ml 1250 ml # Bowel Movements 1 4 Dressing: saturated Wound: other Drains: other Cardiovascular: RSR Respiratory: decreased breath sounds Abdomen: soft, present bowel sounds, non-distended Extremities: no cyanosis, other Plan Problems: (1) Severe sepsis Assessment & Plan: leukocytosis, anemia, lactic acidosis, fevers IV Abx imaging noted and reviewed US with no stones or dilated ducts elevated lft's likely due to liver disease exam as below cont abx trend labs leave [place] for a few weeks thank you will follow with recs Findings: Exam is somewhat limited, due to gastrostomy tube and overlying bowel gas limiting visualization of the abdominal aorta Gallbladder is unremarkable, without stones, wall thickening, nor pericholecystic fluid. Sonographic Carl's sign is negative. Common bile duct measures 4 mm in diameter. No intrahepatic biliary ductal dilatation. Liver demonstrates normal echogenicity, no focal abnormality. It demonstrates slight surface nodularity. It is enlarged. There is a 1 cm cyst which appears adjacent to the gallbladder wall. This is probably a small exophytic hepatic cyst. Portal vein and hepatic veins are patent. Pancreas is unremarkable. Spleen is unremarkable. Left kidney measures 9.2 cm in length. Right kidney measures 10.2 cm length. Both kidneys demonstrate normal echogenicity. There is no hydronephrosis. Both kidneys demonstrate cysts. . Abdominal aorta is partially obscured by bowel gas, visualized portions are non-aneurysmal . Impression: Negative for gallstones or dilated bile ducts Hepatic surface nodularity, may indicate early cirrhotic changes Hepatomegaly Incidental finding bilateral renal cysts (2) Malnutrition Assessment & Plan: DAILY ESTIMATED NEEDS: Needs based on Critical care, sepsis 71.8 kg 22-30 kcals/kg 9467-9166 total kcals 1.2-2 g protein/kg 86- 144 g total protein 25-30 mL/kg 1795- 2154 total fluid mLs NUTRITION DIAGNOSIS: * Swallowing difficulty R/T respiratory status and dysphagia as evidenced by pt is vent dep, on TF. * Altered nutrition related lab values r/t sepsis, clinical status, h/o Diabetes as evidenced by critically elev WBC (47.2), low Hgb (6.6), elev BNP, low BP (96/41), BG 191, POC 179. CURRENT TF: Jevity 1.2 @ 70mL/hr x 20hr - NOW NPO ENTERAL NUTRITION RECOMMENDATIONS: Vital 1.2 @55mL/hr x24 hrs to provide 1320mL, 1584kcal, 99g pro, 1071mL free H2O * As medically appropriate to feed, rec TF change to VITAL 1.2 for critical care. * Start Vital 1,2, @25mL, advance as tolerated 10ml/hr q4-6 hrs to goal * HOB over 30 degrees/ water flush per MD --- Low Hgb (6.6), NPO per GI-> rec trophic feeds when appropriate if pt remains hypotensive. ADDITIONAL RECOMMENDATIONS: * Per SNF: HT 68 inches WT 158 lbs + Daily calibrated bed scale wts * Change TF to Vital 1.2, as medically able to feed * Monitor lytes (replete as needed) * F/up w/ WC eval . (3) Sacral decubitus ulcer Assessment & Plan: Pt presented on admission with contractures and multiple pressure injuries. Partially opened DTPI L buttocks. Base of wound moist - viable with surrounding dark and fluctuant borders.(L)1.2cm x (W)1cm. Small amt of sanguineous exudate noted. No odor noted. Hyperpigmentation noted to sacrum. Historical scar from previous wound noted to L trochanter. Penile head retracted within foreskin and small wound noted within folds of foreskin. Wound is moist and viable. No odor or exudate noted. No erythema noted periwound. Resolving pressure injury plantar R heel. Base of wound 50% epithelialized, 50% moist and viable.(L)5.5cm x (W)6.5cm. Resolving pressure injury lateral L heel. Base of wound is moist and viable with surrounding hyperpigmentation.(L)0.6cm x (W)0.5cm. Scattered loose, dry brown skin noted to medial and posterior L heel. Tx.Plan: Apply Moisture Barrier Paste to L buttocks and sacrum. Cover with Optifoam drsg. Change every 3 days and prn. Cleanse head of penis with soap and water. Apply Bacitracin oint Twice Daily. Apply Betadine to R and L heel wounds. Cover each heel with Optifoam drsg. Daily and prn. APM/ABDELRAHMAN Mattress overlay. Reposition at least every 2hours and prn. Off-load heels with pillow. Don Carvalho Dec 01, 2018 13:43
[2018-12-01 16:00] VITALS: BP 147/72
[2018-12-01] MEDS ORDERED: NS 275ml ONE (16:09)
[2018-12-01] MEDS ORDERED: NS Irrig 1000ml ONE (16:09)
--- NOTE | 2018-12-01 16:22 | Infectious Diseases Prog Note ---
Assessment/Plan Assessment/Plan IMPRESSION: Sepsis, Pyuria/ UTI treated Pneumonia with MDR pseudomonas, Acinetobacter, Proteus & Klebsiella BPH, ventilator-dependent respiratory failure Leukemoid reaction,resolved Acute renal failure, improving Diabetes mellitus, anemia, hypoxemic respiratory failure, dementia. 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 Phimosis/ paraphimosis Urethral stricture Asystole, cardiac pause DNR RECOMMENDATION: Continue Cipro & Colistin inhaler Add Ceftazidime Family refused pacemaker placement Poor prognosis Subjective ROS Limited/Unobtainable: Yes Constitutional: Reports: fever, other - Mgrk=681.7 Allergies: Coded Allergies: TERAZOSIN (Verified Allergy, Unknown, 10/27/17) Objective Vital Signs Last 24 Hour Vital Signs Date Time Temp Pulse Resp B/P (MAP) Pulse Ox O2 Delivery O2 Flow Rate FiO2 12/01/18 15:29 77 22 40 12/01/18 15:14 98.4 12/01/18 13:09 80 22 40 12/01/18 12:00 Mechanical Ventilator 12/01/18 12:00 100.7 83 28 139/64 (89) 92 12/01/18 12:00 40 12/01/18 12:00 77 12/01/18 10:30 84 23 40 12/01/18 09:40 91 12/01/18 09:00 83 23 93 Mechanical Ventilator 40 83 23 12/01/18 08:00 Mechanical Ventilator 12/01/18 08:00 40 12/01/18 08:00 99.5 94 32 146/76 (99) 93 12/01/18 07:21 91 23 40 12/01/18 04:42 89 23 40 12/01/18 04:00 97.7 83 23 135/60 (85) 92 12/01/18 04:00 Mechanical Ventilator 12/01/18 04:00 40 12/01/18 03:28 80 12/01/18 02:59 84 23 40 12/01/18 01:11 80 23 40 12/01/18 00:00 98.4 83 26 154/82 (106) 90 12/01/18 00:00 82 12/01/18 00:00 Mechanical Ventilator 11/30/18 23:41 82 11/30/18 22:49 55 22 40 11/30/18 20:41 98 24 40 11/30/18 20:00 98.6 87 24 147/72 (97) 100 11/30/18 20:00 40 11/30/18 20:00 Mechanical Ventilator 11/30/18 19:25 85 11/30/18 19:00 88 24 40 11/30/18 17:02 89 22 40 Height (Feet): 5 Height (Inches): 5.00 Weight (Pounds): 168 General Appearance: no acute distress HEENT: status post trach Respiratory/Chest: lungs clear, other - on ventilator Cardiovascular: normal rate, other - PICC line Abdomen: distended, other - GT feeding Genitourinary: other - Turner catheter hematuria Extremities: other - generalized edema Skin: ulcers Neurologic/Psychiatric: unresponsiveness, aphasia Current Medications Medications (Trade) Dose Ordered Sig/Ruthie Route PRN Reason Start Time Stop Time Status Last Admin Dose Admin Acetaminophen (Tylenol) 650 mg Q6H PRN GT Mild Pain/Temp > 100.5 11/28/18 06:05 12/15/18 06:04 12/01/18 13:41 Atropine Sulfate (Atropine 0.4mg/ ml) 0.4 mg Q5M PRN IVP HR<30 for 30 seconds 11/28/18 06:09 12/28/18 06:08 Bisacodyl (Dulcolax) 10 mg DAILYPRN PRN RECTAL Constipation 11/28/18 06:05 12/18/18 06:04 Chlorhexidine Gluconate (Rachael-Hex 2%) 1 applic DAILY@1999 TOPIC 11/28/18 20:00 12/15/18 19:59 11/30/18 20:53 Ciprofloxacin (Cipro 500mg tab) 500 mg EVERY 12 HOURS GT 11/29/18 09:00 12/06/18 08:59 12/01/18 09:45 Colistimethate Sodium (Colistin *inhalation use only*) 75 mg Q12HR@10,22 INH 11/29/18 22:00 12/06/18 21:59 12/01/18 10:29 Dextrose 1,000 ml @ 75 mls/hr [id number] IV 11/29/18 02:00 12/29/18 01:59 12/01/18 06:46 Dextrose (Dextrose 50%) 25 ml Q30M PRN IV Hypoglycemia 11/28/18 06:15 12/15/18 09:38 Dextrose (Dextrose 50%) 50 ml Q30M PRN IV Hypoglycemia 11/28/18 06:15 12/15/18 05:44 Insulin Aspart (NovoLOG) BEFORE MEALS AND HS SUBQ 11/28/18 06:30 12/15/18 06:29 12/01/18 11:54 Lansoprazole (Prevacid) 30 mg BID GT 11/28/18 18:00 12/28/18 17:59 12/01/18 09:45 Lorazepam (Ativan 2mg/ml 1ml) 0.5 mg Q2H PRN IV For Anxiety 11/29/18 13:51 12/06/18 13:50 11/29/18 21:27 Olanzapine (ZyPREXA Zydis) 7.5 mg DAILY GT 11/28/18 09:00 12/15/18 08:59 12/01/18 09:44 Anam Cruz MD Dec 01, 2018 16:22
[2018-12-01] MEDS ORDERED: Sterile Water Irrig 1000ml IRRIG ONE (16:27)
--- NOTE | 2018-12-01 17:09 | Cardiac Electrophysiology PN ---
Assessment/Plan Assessment/Plan 1. S/P Septic shock with WBC 50,000 and lactic acid of 6. On IV antibiotic and IV fluid . 2. S/P multiple episodes of asystole with HR down to 10 and pauses of more than 10 seconds earlier today . Off any MCGEE or AVN blockers. Needs permanent pacer implantation. Patient is full code. DW Son Mr. Faraz Erickson on 11/23/18 at [phone]. Family refusing the pacer. On prn Atropine. Echo Nl EF. 3. Congestive heart failure with BNP of more than 17,000. BNP 3000 range 4. Troponin elevation, likely due to renal failure and anemia and septic shock. The levels are flat. EKG does not show any ST elevation. 5. S/P Acute renal failure. Resolved BUN 15 and Cr now 0.8 6. Hypernatremia. On D5W per Dr Fernandes 7. Ventilator-dependent respiratory failure, status post tracheostomy. 8. Dysphagia, status post PEG placement. 9. Profound anemia, hemoglobin of 6.5, rule out GI bleed. S/P blood transfusion and EGD 10. Bleeding from Turner. FU Dr. César CHOWDARY RN Subjective Subjective DNR and family refusing Pacer implant. Still off and on gets these laurie episodes. On Prn Atropine Objective Last 24 Hour Vital Signs Date Time Temp Pulse Resp B/P (MAP) Pulse Ox O2 Delivery O2 Flow Rate FiO2 12/01/18 16:00 Mechanical Ventilator 12/01/18 16:00 76 12/01/18 16:00 40 12/01/18 15:29 77 22 40 12/01/18 15:14 98.4 12/01/18 13:09 80 22 40 12/01/18 12:00 Mechanical Ventilator 12/01/18 12:00 100.7 83 28 139/64 (89) 92 12/01/18 12:00 40 12/01/18 12:00 77 12/01/18 10:30 84 23 40 12/01/18 09:40 91 12/01/18 09:00 83 23 93 Mechanical Ventilator 40 83 23 12/01/18 08:00 Mechanical Ventilator 12/01/18 08:00 40 12/01/18 08:00 99.5 94 32 146/76 (99) 93 12/01/18 07:21 91 23 40 12/01/18 04:42 89 23 40 12/01/18 04:00 97.7 83 23 135/60 (85) 92 12/01/18 04:00 Mechanical Ventilator 12/01/18 04:00 40 12/01/18 03:28 80 12/01/18 02:59 84 23 40 12/01/18 01:11 80 23 40 12/01/18 00:00 98.4 83 26 154/82 (106) 90 12/01/18 00:00 82 12/01/18 00:00 Mechanical Ventilator 11/30/18 23:41 82 11/30/18 22:49 55 22 40 11/30/18 20:41 98 24 40 11/30/18 20:00 98.6 87 24 147/72 (97) 100 11/30/18 20:00 40 11/30/18 20:00 Mechanical Ventilator 11/30/18 19:25 85 11/30/18 19:00 88 24 40 Intake and Output 11/30/18 12/01/18 19:00 07:00 Intake Total 1560.0 ml 1662.5 ml Output Total 1000 ml 1250 ml Balance 560.0 ml 412.5 ml Intake Free Water 60 ml IV Total 900.0 ml 842.5 ml Tube Feeding 660 ml 660 ml Other 100 ml Output Urine Total 1000 ml 1250 ml # Bowel Movements 1 4 Objective HEAD AND NECK: Tracheostomy intact. LUNGS: Coarse rhonchi. Decreased breath sounds CARDIOVASCULAR: Irregular irregular S1 and S2 with no gallop. ABDOMEN: Status post G-tube, distended. EXTREMITIES: Reveal 1+ edema. Luke Prather MD Dec 01, 2018 17:09
[2018-12-01] MEDS: Bacitracin Oint 15gm Tube TOPIC SCH (18:01)
[2018-12-01] MEDS: CefTAZidime 2 GM in D5W 110 ML IV SCH (18:01)
[2018-12-01 20:00] VITALS: BP 134/68
[2018-12-01] MEDS: Dyna-Hex 2% Top Sol 2oz TOPIC SCH (20:46)
--- NOTE | 2018-12-01 20:53 | General Progress Note ---
Assessment/Plan Problem List: (1) Hypernatremia ICD Codes: E87.0 - Hyperosmolality and hypernatremia SNOMED: 71062171 (2) Rhabdomyolysis ICD Codes: M62.82 - Rhabdomyolysis SNOMED: 523783281 (3) Sacral decubitus ulcer ICD Codes: L89.159 - Pressure ulcer of sacral region, unspecified stage SNOMED: 386549993 (4) Severe sepsis ICD Codes: A41.9 - Sepsis, unspecified organism; R65.20 - Severe sepsis without septic shock SNOMED: 55179630 (5) Septic shock ICD Codes: A41.9 - Sepsis, unspecified organism; R65.21 - Severe sepsis with septic shock SNOMED: 15883195 (6) DM (7) Anemia ICD Codes: D64.9 - Anemia, unspecified SNOMED: 444669244 (8) Prostate enlargement ICD Codes: N40.0 - Benign prostatic hyperplasia without lower urinary tract symptoms SNOMED: 744269464 (9) Chronic renal disease ICD Codes: N18.9 - Chronic kidney disease, unspecified SNOMED: 084782218 (10) Ventilator dependence ICD Codes: Z99.11 - Dependence on respirator [ventilator] status SNOMED: 593744482 (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 - Gastrostomy status SNOMED: 700975906, 855734755 (12) Malnutrition ICD Codes: E46 - Unspecified protein-calorie malnutrition SNOMED: 11824068 Status: stable, progressing, unchanged Assessment/Plan: afebrile bph edema trach malnutrition polymicrobial pna bradycardia junctional rhythem edema chf persistent leukocytosis uti Subjective ROS Limited/Unobtainable: Yes Allergies: Coded Allergies: TERAZOSIN (Verified Allergy, Unknown, 10/27/17) Objective Last 24 Hour Vital Signs Date Time Temp Pulse Resp B/P (MAP) Pulse Ox O2 Delivery O2 Flow Rate FiO2 12/01/18 20:00 98.1 76 25 134/68 (90) 95 12/01/18 18:51 77 25 40 12/01/18 17:29 98 40 40 12/01/18 16:00 Mechanical Ventilator 12/01/18 16:00 76 12/01/18 16:00 40 12/01/18 16:00 98.9 82 26 147/72 (97) 92 12/01/18 15:29 77 22 40 12/01/18 15:14 98.4 12/01/18 13:09 80 22 40 12/01/18 12:00 Mechanical Ventilator 12/01/18 12:00 100.7 83 28 139/64 (89) 92 12/01/18 12:00 40 12/01/18 12:00 77 12/01/18 10:30 84 23 40 12/01/18 09:40 91 12/01/18 09:00 83 23 93 Mechanical Ventilator 40 83 23 12/01/18 08:00 Mechanical Ventilator 12/01/18 08:00 40 12/01/18 08:00 99.5 94 32 146/76 (99) 93 12/01/18 07:21 91 23 40 12/01/18 04:42 89 23 40 12/01/18 04:00 97.7 83 23 135/60 (85) 92 12/01/18 04:00 Mechanical Ventilator 12/01/18 04:00 40 12/01/18 03:28 80 12/01/18 02:59 84 23 40 12/01/18 01:11 80 23 40 12/01/18 00:00 98.4 83 26 154/82 (106) 90 12/01/18 00:00 82 12/01/18 00:00 Mechanical Ventilator 11/30/18 23:41 82 11/30/18 22:49 55 22 40 Intake and Output 11/30/18 12/01/18 18:59 06:59 Intake Total 1560.0 ml 1720 ml Output Total 1000 ml 1250 ml Balance 560.0 ml 470 ml Intake Free Water 60 ml IV Total 900.0 ml 900 ml Tube Feeding 660 ml 660 ml Other 100 ml Output Urine Total 1000 ml 1250 ml # Bowel Movements 1 4 Height (Feet): 5 Height (Inches): 5.00 Weight (Pounds): 168 Cardiovascular: normal rate Respiratory/Chest: lungs clear Abdomen: soft Trish Matias MD Dec 01, 2018 20:53
[2018-12-02] VITALS: BP 166/87
[2018-12-02] MEDS: LORazepam Inj 2mg/ml 1ml IV PRN (01:58)
[2018-12-02] MEDS: CefTAZidime 2 GM in D5W 110 ML IV SCH ×3 (02:02→17:45)
[2018-12-02 04:00] VITALS: BP 138/59
[2018-12-02] MEDS: NovoLOG Insulin Flexpen SUBQ SCH ×4 (06:36→20:34)
[2018-12-02 06:53] LABS: BASOPHILS % (AUTO) 1.4 % (0.0-2.0); EOSINOPHILS % (AUTO) 1.3 % (0.0-3.0); HEMATOCRIT 25.4 % (42.0-52.0); LYMPHOCYTES % (AUTO) 7.9 % (20.0-45.0); MEAN CORPUSCULAR VOLUME 86 FL (80-99); MONOCYTES % (AUTO) 13.1 % (1.0-10.0); NEUTROPHILS % (AUTO) 76.3 % (45.0-75.0); PLATELET COUNT 215 K/UL (150-450); RED BLOOD COUNT 2.96 M/UL (4.70-6.10); WHITE BLOOD COUNT 17.2 K/UL (4.8-10.8)
[2018-12-02 07:25] LABS: ALANINE AMINOTRANSFERASE 39 U/L (12-78); ALBUMIN 1.7 G/DL (3.4-5.0); ALBUMIN/GLOBULIN RATIO 0.3 (1.0-2.7); ALKALINE PHOSPHATASE 144 U/L (46-116); ANION GAP 4 mmol/L (5-15); ASPARTATE AMINO TRANSFERASE 29 U/L (15-37); BILIRUBIN,TOTAL 0.3 MG/DL (0.2-1.0); BLOOD UREA NITROGEN 26 mg/dL (7-18); CALCIUM 8.6 MG/DL (8.5-10.1); CARBON DIOXIDE 35 MMOL/L (21-32); CHLORIDE 103 MMOL/L (98-107); CREATININE 0.9 MG/DL (0.55-1.30); PHOSPHORUS 2.7 MG/DL (2.5-4.9); POTASSIUM 4.6 MMOL/L (3.5-5.1); SODIUM 142 MMOL/L (136-145)
[2018-12-02 08:00] VITALS: BP 137/60
[2018-12-02] MEDS: Bacitracin Oint 15gm Tube TOPIC SCH ×2 (08:26→17:46)
[2018-12-02] MEDS: Ciprofloxacin 500mg tab GT SCH ×2 (08:26→20:33)
[2018-12-02] MEDS: ZyPREXA Zydis 5mg tab GT SCH (08:27)
--- NOTE | 2018-12-02 08:32 | Cardiac Electrophysiology PN ---
Assessment/Plan Assessment/Plan 1. S/P Septic shock with WBC 50,000 and lactic acid of 6. On IV antibiotic and IV fluid . WBC Still 17K 2. S/P multiple episodes of asystole with HR down to 10 and pauses of more than 10 seconds earlier today . Off any MCGEE or AVN blockers. DW Son Mr. Faraz Erickson on 11/23/18 at [phone]. Family refusing the pacer and now DNR. On prn Atropine. Echo Nl EF. 3. Congestive heart failure with BNP of more than 17,000. BNP 3000 range 4. Troponin elevation, likely due to renal failure and anemia and septic shock. The levels are flat. EKG does not show any ST elevation. 5. S/P Acute renal failure. Resolved BUN 15 and Cr now 0.8 6. Hypernatremia. Resolved. On D5W per Dr Fernandes 7. Ventilator-dependent respiratory failure, status post tracheostomy. 8. Dysphagia, status post PEG placement. 9. Profound anemia, hemoglobin of 6.5, rule out GI bleed. S/P blood transfusion and EGD 10. Bleeding from Turner. Being flushed prn per Dr. César CHOWDARY RN Subjective Subjective Still off and on gets laurie episodes. On Prn Atropine. DNR. Family refused pacer Objective Last 24 Hour Vital Signs Date Time Temp Pulse Resp B/P (MAP) Pulse Ox O2 Delivery O2 Flow Rate FiO2 12/02/18 08:00 40 12/02/18 08:00 Mechanical Ventilator 12/02/18 05:22 76 28 40 12/02/18 04:00 75 12/02/18 04:00 40 12/02/18 04:00 Mechanical Ventilator 12/02/18 04:00 98.2 78 22 138/59 (85) 95 12/02/18 03:21 89 30 40 12/02/18 01:32 92 24 40 12/02/18 00:00 Mechanical Ventilator 12/02/18 00:00 98.2 92 29 166/87 (113) 93 12/02/18 00:00 73 12/01/18 23:10 78 24 40 12/01/18 21:06 92 22 100 Mechanical Ventilator 40 94 18 40 12/01/18 20:00 98.1 76 25 134/68 (90) 95 12/01/18 20:00 Mechanical Ventilator 10/26/19 20:00 40 12/01/18 20:00 85 12/01/18 18:51 77 25 40 12/01/18 17:29 98 40 40 12/01/18 16:00 Mechanical Ventilator 12/01/18 16:00 76 12/01/18 16:00 40 12/01/18 16:00 98.9 82 26 147/72 (97) 92 12/01/18 15:29 77 22 40 12/01/18 15:14 98.4 12/01/18 13:09 80 22 40 12/01/18 12:00 Mechanical Ventilator 12/01/18 12:00 100.7 83 28 139/64 (89) 92 12/01/18 12:00 40 12/01/18 12:00 77 12/01/18 10:30 84 23 40 12/01/18 09:40 91 12/01/18 09:00 83 23 93 Mechanical Ventilator 40 83 23 Intake and Output 12/01/18 12/02/18 19:00 07:00 Intake Total 1670 ml 1732.5 ml Output Total 50 ml Balance 1670 ml 1682.5 ml Intake Free Water 120 ml IV Total 1010 ml 952.5 ml Tube Feeding 660 ml 660 ml Output Urine Total 50 ml # Bowel Movements 3 2 Laboratory Tests Test 12/02/18 06:15 White Blood Count 17.2 K/UL (4.8-10.8) H Red Blood Count 2.96 M/UL (4.70-6.10) L Hemoglobin 8.0 G/DL (14.2-18.0) L Hematocrit 25.4 % (42.0-52.0) L Mean Corpuscular Volume 86 FL (80-99) Mean Corpuscular Hemoglobin 27.2 PG (27.0-31.0) Mean Corpuscular Hemoglobin Concent 31.7 G/DL (32.0-36.0) L Red Cell Distribution Width 16.0 % (11.6-14.8) H Platelet Count 215 K/UL (150-450) Mean Platelet Volume 7.3 FL (6.5-10.1) Neutrophils (%) (Auto) 76.3 % (45.0-75.0) H Lymphocytes (%) (Auto) 7.9 % (20.0-45.0) L Monocytes (%) (Auto) 13.1 % (1.0-10.0) H Eosinophils (%) (Auto) 1.3 % (0.0-3.0) Basophils (%) (Auto) 1.4 % (0.0-2.0) Sodium Level 142 MMOL/L (136-145) Potassium Level 4.6 MMOL/L (3.5-5.1) Chloride Level 103 MMOL/L (98-107) Carbon Dioxide Level 35 MMOL/L (21-32) H Anion Gap 4 mmol/L (5-15) L Blood Urea Nitrogen 26 mg/dL (7-18) H Creatinine 0.9 MG/DL (0.55-1.30) Estimat Glomerular Filtration Rate mL/min (>60) Glucose Level 132 MG/DL (74-106) H Uric Acid 3.8 MG/DL (2.6-7.2) Calcium Level 8.6 MG/DL (8.5-10.1) Phosphorus Level 2.7 MG/DL (2.5-4.9) Magnesium Level 2.1 MG/DL (1.8-2.4) Total Bilirubin 0.3 MG/DL (0.2-1.0) Aspartate Amino Transf (AST/SGOT) 29 U/L (15-37) Alanine Aminotransferase (ALT/SGPT) 39 U/L (12-78) Alkaline Phosphatase 144 U/L (46-116) H C-Reactive Protein, Quantitative 21.8 mg/dL (0.00-0.90) H Pro-B-Type Natriuretic Peptide 5608 pg/mL (0-125) H Total Protein 6.6 G/DL (6.4-8.2) Albumin 1.7 G/DL (3.4-5.0) L Globulin 4.9 g/dL Albumin/Globulin Ratio 0.3 (1.0-2.7) L Objective HEAD AND NECK: Tracheostomy intact. LUNGS: Coarse rhonchi. Decreased breath sounds CARDIOVASCULAR: Irregular irregular S1 and S2 with no gallop. ABDOMEN: Status post G-tube, distended. EXTREMITIES: Reveal 1+ edema. Luke Prather MD Dec 02, 2018 08:32
[2018-12-02] MEDS: Colistin for inhalation INH SCH ×2 (10:00→21:08)
--- NOTE | 2018-12-02 11:16 | General Progress Note ---
Assessment/Plan Problem List: (1) GIB (gastrointestinal bleeding) ICD Codes: K92.2 - Gastrointestinal hemorrhage, unspecified SNOMED: 65968984 (2) PEG (percutaneous endoscopic gastrostomy) status ICD Codes: Z93.1 - Gastrostomy status SNOMED: 460224236, 528199598 (3) Chronic renal disease ICD Codes: N18.9 - Chronic kidney disease, unspecified SNOMED: 346417637 (4) Prostate enlargement ICD Codes: N40.0 - Benign prostatic hyperplasia without lower urinary tract symptoms SNOMED: 017542117 (5) Anemia ICD Codes: D64.9 - Anemia, unspecified SNOMED: 607408696 (6) Septic shock ICD Codes: A41.9 - Sepsis, unspecified organism; R65.21 - Severe sepsis with septic shock SNOMED: 25095598 (7) Gastrostomy tube dependent ICD Codes: Z93.1 - Gastrostomy status SNOMED: 452790532, 866213346 Status: stable, progressing, unchanged Assessment/Plan: ppi prn blood transfusion abx per ID now off pressors GTF EGD on hold given stable H&H and patient's poor medical condition hematuria>> fu urology recs Subjective ROS Limited/Unobtainable: No Allergies: Coded Allergies: TERAZOSIN (Verified Allergy, Unknown, 10/27/17) Objective Last 24 Hour Vital Signs Date Time Temp Pulse Resp B/P (MAP) Pulse Ox O2 Delivery O2 Flow Rate FiO2 12/02/18 08:35 77 20 40 12/02/18 08:00 40 12/02/18 08:00 74 12/02/18 08:00 98.7 80 26 137/60 (85) 95 12/02/18 08:00 Mechanical Ventilator 12/02/18 07:01 74 22 40 12/02/18 05:22 76 28 40 12/02/18 04:00 75 12/02/18 04:00 40 12/02/18 04:00 Mechanical Ventilator 12/02/18 04:00 98.2 78 22 138/59 (85) 95 12/02/18 03:21 89 30 40 12/02/18 01:32 92 24 40 12/02/18 00:00 Mechanical Ventilator 12/02/18 00:00 98.2 92 29 166/87 (113) 93 12/02/18 00:00 73 10/26/19 23:10 78 24 40 12/01/18 21:06 92 22 100 Mechanical Ventilator 40 94 18 40 12/01/18 20:00 98.1 76 25 134/68 (90) 95 12/01/18 20:00 Mechanical Ventilator 12/01/18 20:00 40 12/01/18 20:00 85 12/01/18 18:51 77 25 40 12/01/18 17:29 98 40 40 12/01/18 16:00 Mechanical Ventilator 12/01/18 16:00 76 12/01/18 16:00 40 12/01/18 16:00 98.9 82 26 147/72 (97) 92 12/01/18 15:29 77 22 40 12/01/18 15:14 98.4 12/01/18 13:09 80 22 40 12/01/18 12:00 Mechanical Ventilator 12/01/18 12:00 100.7 83 28 139/64 (89) 92 12/01/18 12:00 40 12/01/18 12:00 77 Intake and Output 12/01/18 12/02/18 19:00 07:00 Intake Total 1670 ml 1732.5 ml Output Total 50 ml Balance 1670 ml 1682.5 ml Intake Free Water 120 ml IV Total 1010 ml 952.5 ml Tube Feeding 660 ml 660 ml Output Urine Total 50 ml # Bowel Movements 3 2 Laboratory Tests 12/02/18 06:15: White Blood Count 17.2H, Red Blood Count 2.96L, Hemoglobin 8.0L, Hematocrit 25.4L, Mean Corpuscular Volume 86, Mean Corpuscular Hemoglobin 27.2, Mean Corpuscular Hemoglobin Concent 31.7L, Red Cell Distribution Width 16.0H, Platelet Count 215, Mean Platelet Volume 7.3, Neutrophils (%) (Auto) 76.3H, Lymphocytes (%) (Auto) 7.9L, Monocytes (%) (Auto) 13.1H, Eosinophils (%) (Auto) 1.3, Basophils (%) (Auto) 1.4, Sodium Level 142, Potassium Level 4.6, Chloride Level 103, Carbon Dioxide Level 35H, Anion Gap 4L, Blood Urea Nitrogen 26H, Creatinine 0.9, Estimat Glomerular Filtration Rate , Glucose Level 132H, Uric Acid 3.8, Calcium Level 8.6, Phosphorus Level 2.7, Magnesium Level 2.1, Total Bilirubin 0.3, Aspartate Amino Transf (AST/SGOT) 29, Alanine Aminotransferase ( ALT/SGPT) 39, Alkaline Phosphatase 144H, C-Reactive Protein, Quantitative 21.8H , Pro-B-Type Natriuretic Peptide 5608H, Total Protein 6.6, Albumin 1.7L, Globulin 4.9, Albumin/Globulin Ratio 0.3L Height (Feet): 5 Height (Inches): 5.00 Weight (Pounds): 166 General Appearance: no apparent distress EENT: normal ENT inspection Neck: supple Cardiovascular: normal rate Respiratory/Chest: decreased breath sounds Abdomen: normal bowel sounds, non tender, soft Extremities: non-tender Juan Coronel MD Dec 02, 2018 11:16
--- NOTE | 2018-12-02 11:43 | Nephrology Progress Note ---
Assessment/Plan Problem List: (1) Hematuria Assessment: persistant (2) Septic shock Assessment: WBCs rising (3) Ventilator dependence (4) Renal failure (ARF), acute on chronic (5) Prostate enlargement (6) Anemia (7) Hyperosmolality with hypernatremia Assessment Septic Shock Acute renal failure CKD underlying BPH Sever Anemia Chronic trach-Vent DM HypoAlbuminemia HyperNatremia Dementia Troponin elevation Plan WBC kevin and has hematuria ! Patient DNR , but not comfort care Will discuss the plan of care D5W for hyperNatremia now in SDU family agreed to DNR labs reviewed- mag IV as needed avoid Nephrotoxics transfuse as needed crabtree monitor urine out put and renal parameters per orders Subjective ROS Limited/Unobtainable: Yes Objective Objective Last 24 Hour Vital Signs Date Time Temp Pulse Resp B/P (MAP) Pulse Ox O2 Delivery O2 Flow Rate FiO2 12/02/18 11:29 83 23 40 12/02/18 08:35 77 20 40 12/02/18 08:00 40 12/02/18 08:00 74 12/02/18 08:00 98.7 80 26 137/60 (85) 95 12/02/18 08:00 Mechanical Ventilator 12/02/18 07:01 74 22 40 12/02/18 05:22 76 28 40 12/02/18 04:00 75 12/02/18 04:00 40 12/02/18 04:00 Mechanical Ventilator 12/02/18 04:00 98.2 78 22 138/59 (85) 95 12/02/18 03:21 89 30 40 12/02/18 01:32 92 24 40 12/02/18 00:00 Mechanical Ventilator 12/02/18 00:00 98.2 92 29 166/87 (113) 93 12/02/18 00:00 73 12/01/18 23:10 78 24 40 12/01/18 21:06 92 22 100 Mechanical Ventilator 40 94 18 40 12/01/18 20:00 98.1 76 25 134/68 (90) 95 12/01/18 20:00 Mechanical Ventilator 12/01/18 20:00 40 12/01/18 20:00 85 12/01/18 18:51 77 25 40 12/01/18 17:29 98 40 40 12/01/18 16:00 Mechanical Ventilator 12/01/18 16:00 76 12/01/18 16:00 40 12/01/18 16:00 98.9 82 26 147/72 (97) 92 12/01/18 15:29 77 22 40 12/01/18 15:14 98.4 12/01/18 13:09 80 22 40 12/01/18 12:00 Mechanical Ventilator 12/01/18 12:00 100.7 83 28 139/64 (89) 92 12/01/18 12:00 40 12/01/18 12:00 77 Intake and Output 12/01/18 12/02/18 19:00 07:00 Intake Total 1670 ml 1732.5 ml Output Total 50 ml Balance 1670 ml 1682.5 ml Intake Free Water 120 ml IV Total 1010 ml 952.5 ml Tube Feeding 660 ml 660 ml Output Urine Total 50 ml # Bowel Movements 3 2 Laboratory Tests 12/02/18 06:15: White Blood Count 17.2H, Red Blood Count 2.96L, Hemoglobin 8.0L, Hematocrit 25.4L, Mean Corpuscular Volume 86, Mean Corpuscular Hemoglobin 27.2, Mean Corpuscular Hemoglobin Concent 31.7L, Red Cell Distribution Width 16.0H, Platelet Count 215, Mean Platelet Volume 7.3, Neutrophils (%) (Auto) 76.3H, Lymphocytes (%) (Auto) 7.9L, Monocytes (%) (Auto) 13.1H, Eosinophils (%) (Auto) 1.3, Basophils (%) (Auto) 1.4, Sodium Level 142, Potassium Level 4.6, Chloride Level 103, Carbon Dioxide Level 35H, Anion Gap 4L, Blood Urea Nitrogen 26H, Creatinine 0.9, Estimat Glomerular Filtration Rate , Glucose Level 132H, Uric Acid 3.8, Calcium Level 8.6, Phosphorus Level 2.7, Magnesium Level 2.1, Total Bilirubin 0.3, Aspartate Amino Transf (AST/SGOT) 29, Alanine Aminotransferase ( ALT/SGPT) 39, Alkaline Phosphatase 144H, C-Reactive Protein, Quantitative 21.8H , Pro-B-Type Natriuretic Peptide 5608H, Total Protein 6.6, Albumin 1.7L, Globulin 4.9, Albumin/Globulin Ratio 0.3L Height (Feet): 5 Height (Inches): 5.00 Weight (Pounds): 166 General Appearance: no apparent distress EENT: other - trach vent Cardiovascular: tachycardia Respiratory/Chest: decreased breath sounds Abdomen: distended Objective no change Randolph Fernandes MD Dec 02, 2018 11:43
[2018-12-02 12:00] VITALS: BP 115/73
--- NOTE | 2018-12-02 12:44 | Surgery Progress Note ---
Surgery Progress Note Subjective Additional Comments No acute events. Exam stable. Labs noted. Ill-appearing. DNR Objective Last 24 Hour Vital Signs Date Time Temp Pulse Resp B/P (MAP) Pulse Ox O2 Delivery O2 Flow Rate FiO2 12/02/18 11:29 83 23 40 12/02/18 08:35 77 20 40 12/02/18 08:00 40 12/02/18 08:00 74 12/02/18 08:00 98.7 80 26 137/60 (85) 95 12/02/18 08:00 Mechanical Ventilator 12/02/18 07:01 74 22 40 12/02/18 05:22 76 28 40 12/02/18 04:00 75 12/02/18 04:00 40 12/02/18 04:00 Mechanical Ventilator 12/02/18 04:00 98.2 78 22 138/59 (85) 95 12/02/18 03:21 89 30 40 12/02/18 01:32 92 24 40 12/02/18 00:00 Mechanical Ventilator 12/02/18 00:00 98.2 92 29 166/87 (113) 93 12/02/18 00:00 73 12/01/18 23:10 78 24 40 12/01/18 21:06 92 22 100 Mechanical Ventilator 40 94 18 40 12/01/18 20:00 98.1 76 25 134/68 (90) 95 12/01/18 20:00 Mechanical Ventilator 12/01/18 20:00 40 12/01/18 20:00 85 12/01/18 18:51 77 25 40 12/01/18 17:29 98 40 40 12/01/18 16:00 Mechanical Ventilator 12/01/18 16:00 76 12/01/18 16:00 40 12/01/18 16:00 98.9 82 26 147/72 (97) 92 12/01/18 15:29 77 22 40 12/01/18 15:14 98.4 12/01/18 13:09 80 22 40 I&O Intake and Output 12/01/18 12/02/18 19:00 07:00 Intake Total 1670 ml 1732.5 ml Output Total 50 ml Balance 1670 ml 1682.5 ml Intake Free Water 120 ml IV Total 1010 ml 952.5 ml Tube Feeding 660 ml 660 ml Output Urine Total 50 ml # Bowel Movements 3 2 Dressing: saturated Wound: other Drains: other Cardiovascular: RSR Respiratory: decreased breath sounds Abdomen: soft, present bowel sounds, non-distended Extremities: no cyanosis, other Laboratory Tests Test 12/02/18 06:15 White Blood Count 17.2 K/UL (4.8-10.8) H Red Blood Count 2.96 M/UL (4.70-6.10) L Hemoglobin 8.0 G/DL (14.2-18.0) L Hematocrit 25.4 % (42.0-52.0) L Mean Corpuscular Volume 86 FL (80-99) Mean Corpuscular Hemoglobin 27.2 PG (27.0-31.0) Mean Corpuscular Hemoglobin Concent 31.7 G/DL (32.0-36.0) L Red Cell Distribution Width 16.0 % (11.6-14.8) H Platelet Count 215 K/UL (150-450) Mean Platelet Volume 7.3 FL (6.5-10.1) Neutrophils (%) (Auto) 76.3 % (45.0-75.0) H Lymphocytes (%) (Auto) 7.9 % (20.0-45.0) L Monocytes (%) (Auto) 13.1 % (1.0-10.0) H Eosinophils (%) (Auto) 1.3 % (0.0-3.0) Basophils (%) (Auto) 1.4 % (0.0-2.0) Sodium Level 142 MMOL/L (136-145) Potassium Level 4.6 MMOL/L (3.5-5.1) Chloride Level 103 MMOL/L (98-107) Carbon Dioxide Level 35 MMOL/L (21-32) H Anion Gap 4 mmol/L (5-15) L Blood Urea Nitrogen 26 mg/dL (7-18) H Creatinine 0.9 MG/DL (0.55-1.30) Estimat Glomerular Filtration Rate mL/min (>60) Glucose Level 132 MG/DL (74-106) H Uric Acid 3.8 MG/DL (2.6-7.2) Calcium Level 8.6 MG/DL (8.5-10.1) Phosphorus Level 2.7 MG/DL (2.5-4.9) Magnesium Level 2.1 MG/DL (1.8-2.4) Total Bilirubin 0.3 MG/DL (0.2-1.0) Aspartate Amino Transf (AST/SGOT) 29 U/L (15-37) Alanine Aminotransferase (ALT/SGPT) 39 U/L (12-78) Alkaline Phosphatase 144 U/L (46-116) H C-Reactive Protein, Quantitative 21.8 mg/dL (0.00-0.90) H Pro-B-Type Natriuretic Peptide 5608 pg/mL (0-125) H Total Protein 6.6 G/DL (6.4-8.2) Albumin 1.7 G/DL (3.4-5.0) L Globulin 4.9 g/dL Albumin/Globulin Ratio 0.3 (1.0-2.7) L Plan Problems: (1) Severe sepsis Assessment & Plan: leukocytosis, anemia, lactic acidosis, fevers IV Abx imaging noted and reviewed US with no stones or dilated ducts elevated lft's likely due to liver disease exam as below cont abx trend labs leave crabtree for a few weeks thank you will follow with recs Findings: Exam is somewhat limited, due to gastrostomy tube and overlying bowel gas limiting visualization of the abdominal aorta Gallbladder is unremarkable, without stones, wall thickening, nor pericholecystic fluid. Sonographic Carl's sign is negative. Common bile duct measures 4 mm in diameter. No intrahepatic biliary ductal dilatation. Liver demonstrates normal echogenicity, no focal abnormality. It demonstrates slight surface nodularity. It is enlarged. There is a 1 cm cyst which appears adjacent to the gallbladder wall. This is probably a small exophytic hepatic cyst. Portal vein and hepatic veins are patent. Pancreas is unremarkable. Spleen is unremarkable. Left kidney measures 9.2 cm in length. Right kidney measures 10.2 cm length. Both kidneys demonstrate normal echogenicity. There is no hydronephrosis. Both kidneys demonstrate cysts. . Abdominal aorta is partially obscured by bowel gas, visualized portions are non-aneurysmal . Impression: Negative for gallstones or dilated bile ducts Hepatic surface nodularity, may indicate early cirrhotic changes Hepatomegaly Incidental finding bilateral renal cysts (2) Malnutrition Assessment & Plan: DAILY ESTIMATED NEEDS: Needs based on Critical care, sepsis 71.8 kg 22-30 kcals/kg 0633-7045 total kcals 1.2-2 g protein/kg 86- 144 g total protein 25-30 mL/kg 1795- 2154 total fluid mLs NUTRITION DIAGNOSIS: * Swallowing difficulty R/T respiratory status and dysphagia as evidenced by pt is vent dep, on TF. * Altered nutrition related lab values r/t sepsis, clinical status, h/o Diabetes as evidenced by critically elev WBC (47.2), low Hgb (6.6), elev BNP, low BP (96/41), BG 191, POC 179. CURRENT TF: Jevity 1.2 @ 70mL/hr x 20hr - NOW NPO ENTERAL NUTRITION RECOMMENDATIONS: Vital 1.2 @55mL/hr x24 hrs to provide 1320mL, 1584kcal, 99g pro, 1071mL free H2O * As medically appropriate to feed, rec TF change to VITAL 1.2 for critical care. * Start Vital 1,2, @25mL, advance as tolerated 10ml/hr q4-6 hrs to goal * HOB over 30 degrees/ water flush per MD --- Low Hgb (6.6), NPO per GI-> rec trophic feeds when appropriate if pt remains hypotensive. ADDITIONAL RECOMMENDATIONS: * Per SNF: HT 68 inches WT 158 lbs + Daily calibrated bed scale wts * Change TF to Vital 1.2, as medically able to feed * Monitor lytes (replete as needed) * F/up w/ WC eval . (3) Sacral decubitus ulcer Assessment & Plan: Pt presented on admission with contractures and multiple pressure injuries. Partially opened DTPI L buttocks. Base of wound moist - viable with surrounding dark and fluctuant borders.(L)1.2cm x (W)1cm. Small amt of sanguineous exudate noted. No odor noted. Hyperpigmentation noted to sacrum. Historical scar from previous wound noted to L trochanter. Penile head retracted within foreskin and small wound noted within folds of foreskin. Wound is moist and viable. No odor or exudate noted. No erythema noted periwound. Resolving pressure injury plantar R heel. Base of wound 50% epithelialized, 50% moist and viable.(L)5.5cm x (W)6.5cm. Resolving pressure injury lateral L heel. Base of wound is moist and viable with surrounding hyperpigmentation.(L)0.6cm x (W)0.5cm. Scattered loose, dry brown skin noted to medial and posterior L heel. Tx.Plan: Apply Moisture Barrier Paste to L buttocks and sacrum. Cover with Optifoam drsg. Change every 3 days and prn. Cleanse head of penis with soap and water. Apply Bacitracin oint Twice Daily. Apply Betadine to R and L heel wounds. Cover each heel with Optifoam drsg. Daily and prn. APM/ABDELRAHMAN Mattress overlay. Reposition at least every 2hours and prn. Off-load heels with pillow. Don Carvalho Dec 02, 2018 12:44
--- NOTE | 2018-12-02 12:45 | General Progress Note ---
Assessment/Plan Problem List: (1) Hypernatremia ICD Codes: E87.0 - Hyperosmolality and hypernatremia SNOMED: 41677225 (2) Rhabdomyolysis ICD Codes: M62.82 - Rhabdomyolysis SNOMED: 762961317 (3) Sacral decubitus ulcer ICD Codes: L89.159 - Pressure ulcer of sacral region, unspecified stage SNOMED: 844520465 (4) Severe sepsis ICD Codes: A41.9 - Sepsis, unspecified organism; R65.20 - Severe sepsis without septic shock SNOMED: 70678473 (5) Septic shock ICD Codes: A41.9 - Sepsis, unspecified organism; R65.21 - Severe sepsis with septic shock SNOMED: 24648912 (6) DM (7) Anemia ICD Codes: D64.9 - Anemia, unspecified SNOMED: 381797958 (8) Prostate enlargement ICD Codes: N40.0 - Benign prostatic hyperplasia without lower urinary tract symptoms SNOMED: 371834336 (9) Chronic renal disease ICD Codes: N18.9 - Chronic kidney disease, unspecified SNOMED: 026582623 (10) Ventilator dependence ICD Codes: Z99.11 - Dependence on respirator [ventilator] status SNOMED: 983583776 (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 - Gastrostomy status SNOMED: 934469078, 449401458 (12) Malnutrition ICD Codes: E46 - Unspecified protein-calorie malnutrition SNOMED: 44424471 Status: stable, progressing, unchanged Assessment/Plan: no wheezing no fever no acute events trach malnutrition polymicrobial pna bradycardia junctional rhythem edema chf persistent leukocytosis improving Subjective ROS Limited/Unobtainable: Yes Allergies: Coded Allergies: TERAZOSIN (Verified Allergy, Unknown, 10/27/17) Objective Last 24 Hour Vital Signs Date Time Temp Pulse Resp B/P (MAP) Pulse Ox O2 Delivery O2 Flow Rate FiO2 12/02/18 11:29 83 23 40 12/02/18 08:35 77 20 40 12/02/18 08:00 40 12/02/18 08:00 74 12/02/18 08:00 98.7 80 26 137/60 (85) 95 12/02/18 08:00 Mechanical Ventilator 12/02/18 07:01 74 22 40 12/02/18 05:22 76 28 40 12/02/18 04:00 75 12/02/18 04:00 40 12/02/18 04:00 Mechanical Ventilator 12/02/18 04:00 98.2 78 22 138/59 (85) 95 12/02/18 03:21 89 30 40 12/02/18 01:32 92 24 40 12/02/18 00:00 Mechanical Ventilator 12/02/18 00:00 98.2 92 29 166/87 (113) 93 12/02/18 00:00 73 12/01/18 23:10 78 24 40 12/01/18 21:06 92 22 100 Mechanical Ventilator 40 94 18 40 12/01/18 20:00 98.1 76 25 134/68 (90) 95 12/01/18 20:00 Mechanical Ventilator 12/01/18 20:00 40 12/01/18 20:00 85 12/01/18 18:51 77 25 40 12/01/18 17:29 98 40 40 12/01/18 16:00 Mechanical Ventilator 12/01/18 16:00 76 12/01/18 16:00 40 12/01/18 16:00 98.9 82 26 147/72 (97) 92 12/01/18 15:29 77 22 40 12/01/18 15:14 98.4 12/01/18 13:09 80 22 40 Intake and Output 12/01/18 12/02/18 19:00 07:00 Intake Total 1670 ml 1732.5 ml Output Total 50 ml Balance 1670 ml 1682.5 ml Intake Free Water 120 ml IV Total 1010 ml 952.5 ml Tube Feeding 660 ml 660 ml Output Urine Total 50 ml # Bowel Movements 3 2 Laboratory Tests 12/02/18 06:15: White Blood Count 17.2H, Red Blood Count 2.96L, Hemoglobin 8.0L, Hematocrit 25.4L, Mean Corpuscular Volume 86, Mean Corpuscular Hemoglobin 27.2, Mean Corpuscular Hemoglobin Concent 31.7L, Red Cell Distribution Width 16.0H, Platelet Count 215, Mean Platelet Volume 7.3, Neutrophils (%) (Auto) 76.3H, Lymphocytes (%) (Auto) 7.9L, Monocytes (%) (Auto) 13.1H, Eosinophils (%) (Auto) 1.3, Basophils (%) (Auto) 1.4, Sodium Level 142, Potassium Level 4.6, Chloride Level 103, Carbon Dioxide Level 35H, Anion Gap 4L, Blood Urea Nitrogen 26H, Creatinine 0.9, Estimat Glomerular Filtration Rate , Glucose Level 132H, Uric Acid 3.8, Calcium Level 8.6, Phosphorus Level 2.7, Magnesium Level 2.1, Total Bilirubin 0.3, Aspartate Amino Transf (AST/SGOT) 29, Alanine Aminotransferase ( ALT/SGPT) 39, Alkaline Phosphatase 144H, C-Reactive Protein, Quantitative 21.8H , Pro-B-Type Natriuretic Peptide 5608H, Total Protein 6.6, Albumin 1.7L, Globulin 4.9, Albumin/Globulin Ratio 0.3L Height (Feet): 5 Height (Inches): 5.00 Weight (Pounds): 166 Neck: supple Respiratory/Chest: lungs clear Abdomen: soft Trish Matias MD Dec 02, 2018 12:45
--- NOTE | 2018-12-02 14:05 | Pulmonology Progress Note ---
Assessment/Plan Assessment/Plan Pulmonary Progress Note Assessment/Plan Impression: Patient with Pneumonia - KPC/Acinetobacter Ventilator dependant respiratory failure, CXR improving slighly Severe sepsis - improved Leucocytosis NSTEMI Anemia Dysphagia s/p G tube Chronic wounds Dementia Organic Brain Syndrome Diabetes Chronic renal disease BPH Penile wound Hematuria - Urology following CHF H/o Hypertension Severe Protein Calorie Malnutrition Plan antibiotic regimen per ID monitor blood pressure HHN Q4 and monitor secretions and suction PRN on full vent support-AC- no wean DNAR multiorgan disease with poor prognosis monitor oxygen needs- and adjust monitor labs DVT and PUD prophylaxis Gtube feeds as able; monitor residuals and reflux aspiration monitor residuals for change will need intermediate care medications/laboratory data/nursing notes reviewed in detail note reviewed and edited care discussed with RN and RT Interval Events: care noted vitals stable poor LOC f ROS Limited/Unobtainable: Yes Condition: critical EKG Rhythm: Sinus Rhythm Residuals: minimal Tube Feeding Tolerated: yes Vital Signs Noted Labs Noted CXR: Impression: Evidence of slightly improved right pleural effusion. Otherwise little change Objective: WDWN NAD on vent and poorly responsive reduced breath sounds bilaterally with noted rhonchi [id number] without MRG NABS nontender no HSM; GT; non distended no CC mild edema nonfocal reduced LOC skin noted reviewed and edited Sputum: Organism 1 K.PNEUMONIAE CARBAPENEM RESIST GROWTH: 4+ only sens Colistin Organism 2 A.BAUMANII COMPLX - MDR GROWTH: 4+ Organism 3 PSEUDOMONAS AERUGINOSA GROWTH: 4+ Organism 4 PROTEUS MIRABILIS GROWTH: 4+ Subjective ROS Limited/Unobtainable: No Allergies: Coded Allergies: TERAZOSIN (Verified Allergy, Unknown, 10/27/17) Objective Last 24 Hour Vital Signs Date Time Temp Pulse Resp B/P (MAP) Pulse Ox O2 Delivery O2 Flow Rate FiO2 12/02/18 13:05 78 24 40 12/02/18 12:00 Mechanical Ventilator 12/02/18 12:00 40 12/02/18 12:00 98.8 85 22 115/73 (87) 100 12/02/18 12:00 74 12/02/18 11:29 83 23 40 12/02/18 08:35 77 20 40 12/02/18 08:00 40 12/02/18 08:00 74 12/02/18 08:00 98.7 80 26 137/60 (85) 95 12/02/18 08:00 Mechanical Ventilator 12/02/18 07:01 74 22 40 12/02/18 05:22 76 28 40 12/02/18 04:00 75 12/02/18 04:00 40 12/02/18 04:00 Mechanical Ventilator 12/02/18 04:00 98.2 78 22 138/59 (85) 95 12/02/18 03:21 89 30 40 12/02/18 01:32 92 24 40 12/02/18 00:00 Mechanical Ventilator 12/02/18 00:00 98.2 92 29 166/87 (113) 93 12/02/18 00:00 73 12/01/18 23:10 78 24 40 12/01/18 21:06 92 22 100 Mechanical Ventilator 40 94 18 40 12/01/18 20:00 98.1 76 25 134/68 (90) 95 12/01/18 20:00 Mechanical Ventilator 12/01/18 20:00 40 12/01/18 20:00 85 12/01/18 18:51 77 25 40 12/01/18 17:29 98 40 40 12/01/18 16:00 Mechanical Ventilator 12/01/18 16:00 76 12/01/18 16:00 40 12/01/18 16:00 98.9 82 26 147/72 (97) 92 12/01/18 15:29 77 22 40 12/01/18 15:14 98.4 Intake and Output 12/01/18 12/02/18 19:00 07:00 Intake Total 1670 ml 1732.5 ml Output Total 50 ml Balance 1670 ml 1682.5 ml Intake Free Water 120 ml IV Total 1010 ml 952.5 ml Tube Feeding 660 ml 660 ml Output Urine Total 50 ml # Bowel Movements 3 2 Laboratory Tests 12/02/18 06:15: White Blood Count 17.2H, Red Blood Count 2.96L, Hemoglobin 8.0L, Hematocrit 25.4L, Mean Corpuscular Volume 86, Mean Corpuscular Hemoglobin 27.2, Mean Corpuscular Hemoglobin Concent 31.7L, Red Cell Distribution Width 16.0H, Platelet Count 215, Mean Platelet Volume 7.3, Neutrophils (%) (Auto) 76.3H, Lymphocytes (%) (Auto) 7.9L, Monocytes (%) (Auto) 13.1H, Eosinophils (%) (Auto) 1.3, Basophils (%) (Auto) 1.4, Sodium Level 142, Potassium Level 4.6, Chloride Level 103, Carbon Dioxide Level 35H, Anion Gap 4L, Blood Urea Nitrogen 26H, Creatinine 0.9, Estimat Glomerular Filtration Rate , Glucose Level 132H, Uric Acid 3.8, Calcium Level 8.6, Phosphorus Level 2.7, Magnesium Level 2.1, Total Bilirubin 0.3, Aspartate Amino Transf (AST/SGOT) 29, Alanine Aminotransferase ( ALT/SGPT) 39, Alkaline Phosphatase 144H, C-Reactive Protein, Quantitative 21.8H , Pro-B-Type Natriuretic Peptide 5608H, Total Protein 6.6, Albumin 1.7L, Globulin 4.9, Albumin/Globulin Ratio 0.3L Current Medications Medications (Trade) Dose Ordered Sig/Ruthie Route PRN Reason Start Time Stop Time Status Last Admin Dose Admin Acetaminophen (Tylenol) 650 mg Q6H PRN GT Mild Pain/Temp > 100.5 11/28/18 06:05 12/15/18 06:04 12/01/18 13:41 Atropine Sulfate (Atropine 0.4mg/ ml) 0.4 mg Q5M PRN IVP HR<30 for 30 seconds 11/28/18 06:09 12/28/18 06:08 Bacitracin (Bacitracin 15gm tube) 1 applic BID TOPIC 12/01/18 18:00 12/31/18 17:59 12/02/18 08:26 Bisacodyl (Dulcolax) 10 mg DAILYPRN PRN RECTAL Constipation 11/28/18 06:05 12/18/18 06:04 Ceftazidime 2 gm/ Dextrose 110 ml @ 220 mls/hr Q8H IV 12/01/18 18:00 12/08/18 17:59 12/02/18 10:51 Chlorhexidine Gluconate (Rachael-Hex 2%) 1 applic DAILY@1999 TOPIC 11/28/18 20:00 12/15/18 19:59 12/01/18 20:46 Ciprofloxacin (Cipro 500mg tab) 500 mg EVERY 12 HOURS GT 11/29/18 09:00 12/06/18 08:59 12/02/18 08:26 Colistimethate Sodium (Colistin *inhalation use only*) 75 mg Q12HR@10,22 INH 11/29/18 22:00 12/06/18 21:59 12/01/18 22:16 Dextrose 1,000 ml @ 75 mls/hr [id number] IV 11/29/18 02:00 12/29/18 01:59 12/02/18 10:51 Dextrose (Dextrose 50%) 25 ml Q30M PRN IV Hypoglycemia 11/28/18 06:15 12/15/18 09:38 Dextrose (Dextrose 50%) 50 ml Q30M PRN IV Hypoglycemia 11/28/18 06:15 12/15/18 05:44 Insulin Aspart (NovoLOG) BEFORE MEALS AND HS SUBQ 11/28/18 06:30 12/15/18 06:29 12/02/18 12:25 Lansoprazole (Prevacid) 30 mg BID GT 11/28/18 18:00 12/28/18 17:59 12/02/18 08:26 Lorazepam (Ativan 2mg/ml 1ml) 0.5 mg Q2H PRN IV For Anxiety 11/29/18 13:51 12/06/18 13:50 12/02/18 01:58 Olanzapine (ZyPREXA Zydis) 7.5 mg DAILY GT 11/28/18 09:00 12/15/18 08:59 12/02/18 08:27 Booker Baumann MD Dec 02, 2018 14:05
[2018-12-02 16:00] VITALS: BP 81/73
[2018-12-02 20:00] VITALS: BP 143/81
[2018-12-02] MEDS: Dyna-Hex 2% Top Sol 2oz TOPIC SCH (20:33)
[2018-12-03] VITALS: BP 136/106
[2018-12-03] MEDS: CefTAZidime 2 GM in D5W 110 ML IV SCH ×3 (01:32→18:31)
[2018-12-03 04:00] VITALS: BP 153/85
[2018-12-03 05:38] LABS: EOSINOPHILS % (AUTO) 1.3 % (0.0-3.0); HEMATOCRIT 25.2 % (42.0-52.0); LYMPHOCYTES % (AUTO) 12.9 % (20.0-45.0); MEAN CORPUSCULAR VOLUME 85 FL (80-99); MONOCYTES % (AUTO) 15.5 % (1.0-10.0); NEUTROPHILS % (AUTO) 69.3 % (45.0-75.0); PLATELET COUNT 280 K/UL (150-450); RED BLOOD COUNT 2.98 M/UL (4.70-6.10); RED CELL DISTRIBUTION WIDTH 16.2 % (11.6-14.8); WHITE BLOOD COUNT 16.2 K/UL (4.8-10.8)
[2018-12-03 05:56] LABS: ANION GAP 2 mmol/L (5-15); BLOOD UREA NITROGEN 25 mg/dL (7-18); CALCIUM 8.2 MG/DL (8.5-10.1); CARBON DIOXIDE 34 MMOL/L (21-32); CHLORIDE 105 MMOL/L (98-107); CREATININE 0.9 MG/DL (0.55-1.30); POTASSIUM 4.4 MMOL/L (3.5-5.1); SODIUM 141 MMOL/L (136-145)
[2018-12-03] MEDS: NovoLOG Insulin Flexpen SUBQ SCH ×4 (06:07→21:00)
[2018-12-03 08:00] VITALS: BP 147/64
--- NOTE | 2018-12-03 09:14 | General Progress Note ---
Assessment/Plan Problem List: (1) GIB (gastrointestinal bleeding) ICD Codes: K92.2 - Gastrointestinal hemorrhage, unspecified SNOMED: 54449866 (2) PEG (percutaneous endoscopic gastrostomy) status ICD Codes: Z93.1 - Gastrostomy status SNOMED: 890345866, 345497522 (3) Chronic renal disease ICD Codes: N18.9 - Chronic kidney disease, unspecified SNOMED: 121105391 (4) Prostate enlargement ICD Codes: N40.0 - Benign prostatic hyperplasia without lower urinary tract symptoms SNOMED: 366581392 (5) Anemia ICD Codes: D64.9 - Anemia, unspecified SNOMED: 553201959 (6) Septic shock ICD Codes: A41.9 - Sepsis, unspecified organism; R65.21 - Severe sepsis with septic shock SNOMED: 74092723 (7) Gastrostomy tube dependent ICD Codes: Z93.1 - Gastrostomy status SNOMED: 107302994, 224133846 Status: stable, progressing, unchanged Assessment/Plan: ppi prn blood transfusion abx per ID now off pressors GTF EGD on hold given stable H&H and patient's poor medical condition hematuria>> fu urology recs Subjective ROS Limited/Unobtainable: No Allergies: Coded Allergies: TERAZOSIN (Verified Allergy, Unknown, 10/27/17) Objective Last 24 Hour Vital Signs Date Time Temp Pulse Resp B/P (MAP) Pulse Ox O2 Delivery O2 Flow Rate FiO2 12/03/18 09:05 8 33 40 12/03/18 08:00 98.4 78 22 147/64 (91) 98 12/03/18 07:06 82 23 40 12/03/18 05:01 88 25 40 12/03/18 04:00 Mechanical Ventilator 12/03/18 04:00 98.2 88 23 153/85 (107) 95 12/03/18 04:00 40 12/03/18 03:27 76 12/03/18 02:44 77 23 40 12/03/18 00:58 85 22 40 12/03/18 00:00 40 12/03/18 00:00 Mechanical Ventilator 12/03/18 00:00 98.6 71 25 136/106 (116) 96 12/02/18 23:26 71 12/02/18 22:40 74 22 40 12/02/18 21:26 80 22 100 Mechanical Ventilator 40 12/02/18 21:08 81 23 100 Mechanical Ventilator 40 81 23 40 12/02/18 20:00 Mechanical Ventilator 12/02/18 20:00 40 12/02/18 20:00 98.6 85 24 143/81 (101) 96 12/02/18 19:34 85 12/02/18 18:38 85 23 40 12/02/18 17:04 86 22 40 12/02/18 16:00 40 12/02/18 16:00 99.3 90 30 81/73 (76) 98 12/02/18 16:00 79 12/02/18 16:00 Mechanical Ventilator 12/02/18 15:20 79 20 40 12/02/18 13:05 78 24 40 12/02/18 12:00 Mechanical Ventilator 12/02/18 12:00 40 12/02/18 12:00 98.8 85 22 115/73 (87) 100 12/02/18 12:00 74 12/02/18 11:29 83 23 40 Intake and Output 12/02/18 12/03/18 19:00 07:00 Intake Total 1495 ml 660 ml Output Total 275 ml 800 ml Balance 1220 ml -140 ml Intake Free Water 200 ml IV Total 635 ml Tube Feeding 660 ml 660 ml Output Urine Total 275 ml 800 ml # Bowel Movements 1 Laboratory Tests 12/03/18 04:55: White Blood Count 16.2H, Red Blood Count 2.98L, Hemoglobin 8.0L, Hematocrit 25.2L, Mean Corpuscular Volume 85, Mean Corpuscular Hemoglobin 26.8L, Mean Corpuscular Hemoglobin Concent 31.6L, Red Cell Distribution Width 16.2H, Platelet Count 280, Mean Platelet Volume 7.1, Neutrophils (%) (Auto) 69.3, Lymphocytes (%) (Auto) 12.9L, Monocytes (%) (Auto) 15.5H, Eosinophils (%) (Auto ) 1.3, Basophils (%) (Auto) 1.0, Sodium Level 141, Potassium Level 4.4, Chloride Level 105, Carbon Dioxide Level 34H, Anion Gap 2L, Blood Urea Nitrogen 25H, Creatinine 0.9, Estimat Glomerular Filtration Rate , Glucose Level 105, Calcium Level 8.2L Height (Feet): 5 Height (Inches): 5.00 Weight (Pounds): 166 General Appearance: no apparent distress EENT: normal ENT inspection Neck: supple Cardiovascular: normal rate Respiratory/Chest: decreased breath sounds Abdomen: normal bowel sounds, non tender, soft Extremities: non-tender Juan Coronel MD Dec 03, 2018 09:14
[2018-12-03] MEDS: Bacitracin Oint 15gm Tube TOPIC SCH ×2 (09:38→18:31)
[2018-12-03] MEDS: ZyPREXA Zydis 5mg tab GT SCH (09:38)
[2018-12-03] MEDS: Ciprofloxacin 500mg tab GT SCH ×2 (09:38→21:08)
--- NOTE | 2018-12-03 10:20 | Infectious Diseases Prog Note ---
Assessment/Plan Assessment/Plan IMPRESSION: Sepsis, Pyuria/ UTI treated Pneumonia with MDR pseudomonas, Acinetobacter, Proteus & Klebsiella BPH, ventilator-dependent respiratory failure Leukocytosis improving Acute renal failure, improving Diabetes mellitus, anemia, hypoxemic respiratory failure, dementia. 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 Phimosis/ paraphimosis Urethral stricture Asystole, cardiac pause DNR RECOMMENDATION: Continue Cipro , Colistin inhaler & Ceftazidime Family refused pacemaker placement Poor prognosis Subjective ROS Limited/Unobtainable: Yes Constitutional: Denies: fever Allergies: Coded Allergies: TERAZOSIN (Verified Allergy, Unknown, 10/27/17) Objective Vital Signs Last 24 Hour Vital Signs Date Time Temp Pulse Resp B/P (MAP) Pulse Ox O2 Delivery O2 Flow Rate FiO2 12/03/18 09:05 8 33 40 12/03/18 08:00 98.4 78 22 147/64 (91) 98 12/03/18 08:00 Mechanical Ventilator 12/03/18 07:06 82 23 40 12/03/18 05:01 88 25 40 12/03/18 04:00 Mechanical Ventilator 12/03/18 04:00 98.2 88 23 153/85 (107) 95 12/03/18 04:00 40 12/03/18 03:27 76 12/03/18 02:44 77 23 40 12/03/18 00:58 85 22 40 12/03/18 00:00 40 12/03/18 00:00 Mechanical Ventilator 12/03/18 00:00 98.6 71 25 136/106 (116) 96 12/02/18 23:26 71 12/02/18 22:40 74 22 40 12/02/18 21:26 80 22 100 Mechanical Ventilator 40 12/02/18 21:08 81 23 100 Mechanical Ventilator 40 81 23 40 12/02/18 20:00 Mechanical Ventilator 12/02/18 20:00 40 12/02/18 20:00 98.6 85 24 143/81 (101) 96 12/02/18 19:34 85 12/02/18 18:38 85 23 40 12/02/18 17:04 86 22 40 12/02/18 16:00 40 12/02/18 16:00 99.3 90 30 81/73 (76) 98 12/02/18 16:00 79 12/02/18 16:00 Mechanical Ventilator 12/02/18 15:20 79 20 40 12/02/18 13:05 78 24 40 12/02/18 12:00 Mechanical Ventilator 12/02/18 12:00 40 12/02/18 12:00 98.8 85 22 115/73 (87) 100 12/02/18 12:00 74 12/02/18 11:29 83 23 40 Height (Feet): 5 Height (Inches): 5.00 Weight (Pounds): 166 HEENT: status post trach Respiratory/Chest: other - on ventilator, coarse sounds Cardiovascular: normal rate Abdomen: soft, non tender, other - GT feeding Extremities: other - generalized edema Skin: ulcers Neurologic/Psychiatric: aphasia, other - opens eyes Laboratory Tests Test 12/03/18 04:55 White Blood Count 16.2 K/UL (4.8-10.8) H Red Blood Count 2.98 M/UL (4.70-6.10) L Hemoglobin 8.0 G/DL (14.2-18.0) L Hematocrit 25.2 % (42.0-52.0) L Mean Corpuscular Volume 85 FL (80-99) Mean Corpuscular Hemoglobin 26.8 PG (27.0-31.0) L Mean Corpuscular Hemoglobin Concent 31.6 G/DL (32.0-36.0) L Red Cell Distribution Width 16.2 % (11.6-14.8) H Platelet Count 280 K/UL (150-450) Mean Platelet Volume 7.1 FL (6.5-10.1) Neutrophils (%) (Auto) 69.3 % (45.0-75.0) Lymphocytes (%) (Auto) 12.9 % (20.0-45.0) L Monocytes (%) (Auto) 15.5 % (1.0-10.0) H Eosinophils (%) (Auto) 1.3 % (0.0-3.0) Basophils (%) (Auto) 1.0 % (0.0-2.0) Sodium Level 141 MMOL/L (136-145) Potassium Level 4.4 MMOL/L (3.5-5.1) Chloride Level 105 MMOL/L (98-107) Carbon Dioxide Level 34 MMOL/L (21-32) H Anion Gap 2 mmol/L (5-15) L Blood Urea Nitrogen 25 mg/dL (7-18) H Creatinine 0.9 MG/DL (0.55-1.30) Estimat Glomerular Filtration Rate mL/min (>60) Glucose Level 105 MG/DL (74-106) Calcium Level 8.2 MG/DL (8.5-10.1) L Current Medications Medications (Trade) Dose Ordered Sig/Ruthie Route PRN Reason Start Time Stop Time Status Last Admin Dose Admin Acetaminophen (Tylenol) 650 mg Q6H PRN GT Mild Pain/Temp > 100.5 11/28/18 06:05 12/15/18 06:04 12/01/18 13:41 Atropine Sulfate (Atropine 0.4mg/ ml) 0.4 mg Q5M PRN IVP HR<30 for 30 seconds 11/28/18 06:09 12/28/18 06:08 Bacitracin (Bacitracin 15gm tube) 1 applic BID TOPIC 12/01/18 18:00 12/31/18 17:59 12/03/18 09:38 Bisacodyl (Dulcolax) 10 mg DAILYPRN PRN RECTAL Constipation 11/28/18 06:05 12/18/18 06:04 Ceftazidime 2 gm/ Dextrose 110 ml @ 220 mls/hr Q8H IV 12/01/18 18:00 12/08/18 17:59 12/03/18 09:37 Chlorhexidine Gluconate (Rachael-Hex 2%) 1 applic DAILY@2000 TOPIC 11/28/18 20:00 12/15/18 19:59 12/02/18 20:33 Ciprofloxacin (Cipro 500mg tab) 500 mg EVERY 12 HOURS GT 11/29/18 09:00 12/06/18 08:59 12/03/18 09:38 Colistimethate Sodium (Colistin *inhalation use only*) 75 mg Q12HR@ INH 11/29/18 22:00 12/06/18 21:59 12/02/18 21:08 Dextrose (Dextrose 50%) 25 ml Q30M PRN IV Hypoglycemia 11/28/18 06:15 12/15/18 09:38 Dextrose (Dextrose 50%) 50 ml Q30M PRN IV Hypoglycemia 11/28/18 06:15 12/15/18 05:44 Insulin Aspart (NovoLOG) BEFORE MEALS AND HS SUBQ 11/28/18 06:30 12/15/18 06:29 12/03/18 06:07 Lansoprazole (Prevacid) 30 mg BID GT 11/28/18 18:00 12/28/18 17:59 12/03/18 09:37 Lorazepam (Ativan 2mg/ml 1ml) 0.5 mg Q2H PRN IV For Anxiety 11/29/18 13:51 12/06/18 13:50 12/02/18 01:58 Olanzapine (ZyPREXA Zydis) 7.5 mg DAILY GT 11/28/18 09:00 12/15/18 08:59 12/03/18 09:38 Anam Cruz MD Dec 03, 2018 10:20
[2018-12-03 11:48] VITALS: BP 152/74
[2018-12-03] MEDS: Colistin for inhalation INH SCH ×2 (14:30→22:00)
--- NOTE | 2018-12-03 14:30 | Nephrology Progress Note ---
Assessment/Plan Problem List: (1) Hematuria Assessment: persistant (2) Septic shock Assessment: WBCs rising (3) Ventilator dependence (4) Renal failure (ARF), acute on chronic (5) Prostate enlargement (6) Anemia (7) Hyperosmolality with hypernatremia Assessment Septic Shock Acute renal failure CKD underlying BPH Sever Anemia Chronic trach-Vent DM HypoAlbuminemia HyperNatremia Dementia Troponin elevation Plan WBC kevin and has hematuria ! Patient DNR , but not comfort care Will discuss the plan of care D5W for hyperNatremia now in SDU family agreed to DNR labs reviewed- mag IV as needed avoid Nephrotoxics transfuse as needed crabtree monitor urine out put and renal parameters per orders Subjective ROS Limited/Unobtainable: Yes Objective Objective Last 24 Hour Vital Signs Date Time Temp Pulse Resp B/P (MAP) Pulse Ox O2 Delivery O2 Flow Rate FiO2 12/03/18 13:29 80 22 40 12/03/18 12:00 100 12/03/18 12:00 81 12/03/18 12:00 Mechanical Ventilator 12/03/18 11:48 99.1 87 22 152/74 (100) 95 12/03/18 11:21 88 26 40 12/03/18 09:05 80 33 40 12/03/18 08:00 98.4 78 22 147/64 (91) 98 12/03/18 08:00 40 12/03/18 08:00 73 12/03/18 08:00 Mechanical Ventilator 12/03/18 07:06 82 23 40 12/03/18 05:01 88 25 40 12/03/18 04:00 Mechanical Ventilator 12/03/18 04:00 98.2 88 23 153/85 (107) 95 12/03/18 04:00 40 12/03/18 03:27 76 12/03/18 02:44 77 23 40 12/03/18 00:58 85 22 40 12/03/18 00:00 40 12/03/18 00:00 Mechanical Ventilator 12/03/18 00:00 98.6 71 25 136/106 (116) 96 12/02/18 23:26 71 12/02/18 22:40 74 22 40 12/02/18 21:26 80 22 100 Mechanical Ventilator 40 12/02/18 21:08 81 23 100 Mechanical Ventilator 40 81 23 40 12/02/18 20:00 Mechanical Ventilator 12/02/18 20:00 40 12/02/18 20:00 98.6 85 24 143/81 (101) 96 12/02/18 19:34 85 12/02/18 18:38 85 23 40 12/02/18 17:04 86 22 40 12/02/18 16:00 40 12/02/18 16:00 99.3 90 30 81/73 (76) 98 12/02/18 16:00 79 12/02/18 16:00 Mechanical Ventilator 12/02/18 15:20 79 20 40 Intake and Output 12/02/18 12/03/18 19:00 07:00 Intake Total 1495 ml 715 ml Output Total 275 ml 800 ml Balance 1220 ml -85 ml Intake Free Water 200 ml IV Total 635 ml Tube Feeding 660 ml 715 ml Output Urine Total 275 ml 800 ml # Bowel Movements 1 Laboratory Tests 12/03/18 04:55: White Blood Count 16.2H, Red Blood Count 2.98L, Hemoglobin 8.0L, Hematocrit 25.2L, Mean Corpuscular Volume 85, Mean Corpuscular Hemoglobin 26.8L, Mean Corpuscular Hemoglobin Concent 31.6L, Red Cell Distribution Width 16.2H, Platelet Count 280, Mean Platelet Volume 7.1, Neutrophils (%) (Auto) 69.3, Lymphocytes (%) (Auto) 12.9L, Monocytes (%) (Auto) 15.5H, Eosinophils (%) (Auto ) 1.3, Basophils (%) (Auto) 1.0, Sodium Level 141, Potassium Level 4.4, Chloride Level 105, Carbon Dioxide Level 34H, Anion Gap 2L, Blood Urea Nitrogen 25H, Creatinine 0.9, Estimat Glomerular Filtration Rate , Glucose Level 105, Calcium Level 8.2L Height (Feet): 5 Height (Inches): 5.00 Weight (Pounds): 166 General Appearance: no apparent distress EENT: other - trach-vent Cardiovascular: tachycardia Respiratory/Chest: decreased breath sounds Abdomen: distended Objective no change Randolph Fernandes MD Dec 03, 2018 14:30
--- NOTE | 2018-12-03 15:28 | Surgery Progress Note ---
Surgery Progress Note Subjective Additional Comments Patient made DNR but not comfort care. Leukocytosis trending down. Labs noted Exam stable Hematuria persistent Objective Last 24 Hour Vital Signs Date Time Temp Pulse Resp B/P (MAP) Pulse Ox O2 Delivery O2 Flow Rate FiO2 12/03/18 14:30 84 24 40 12/03/18 13:29 80 22 40 12/03/18 12:00 100 12/03/18 12:00 81 12/03/18 12:00 Mechanical Ventilator 12/03/18 11:48 99.1 87 22 152/74 (100) 95 12/03/18 11:21 88 26 40 12/03/18 09:05 80 33 99 Mechanical Ventilator 50.0 40 80 33 40 12/03/18 08:00 98.4 78 22 147/64 (91) 98 12/03/18 08:00 40 12/03/18 08:00 73 12/03/18 08:00 Mechanical Ventilator 12/03/18 07:06 82 23 40 12/03/18 05:01 88 25 40 12/03/18 04:00 Mechanical Ventilator 12/03/18 04:00 98.2 88 23 153/85 (107) 95 12/03/18 04:00 40 12/03/18 03:27 76 12/03/18 02:44 77 23 40 12/03/18 00:58 85 22 40 12/03/18 00:00 40 12/03/18 00:00 Mechanical Ventilator 12/03/18 00:00 98.6 71 25 136/106 (116) 96 12/02/18 23:26 71 12/02/18 22:40 74 22 40 12/02/18 21:26 80 22 100 Mechanical Ventilator 40 12/02/18 21:08 81 23 100 Mechanical Ventilator 40 81 23 40 12/02/18 20:00 Mechanical Ventilator 12/02/18 20:00 40 12/02/18 20:00 98.6 85 24 143/81 (101) 96 12/02/18 19:34 85 12/02/18 18:38 85 23 40 12/02/18 17:04 86 22 40 12/02/18 16:00 40 12/02/18 16:00 99.3 90 30 81/73 (76) 98 12/02/18 16:00 79 12/02/18 16:00 Mechanical Ventilator I&O Intake and Output 12/02/18 12/03/18 19:00 07:00 Intake Total 1495 ml 715 ml Output Total 275 ml 800 ml Balance 1220 ml -85 ml Intake Free Water 200 ml IV Total 635 ml Tube Feeding 660 ml 715 ml Output Urine Total 275 ml 800 ml # Bowel Movements 1 Dressing: saturated Wound: other Drains: other Cardiovascular: RSR Respiratory: decreased breath sounds Abdomen: soft, non-distended, decreased bowel sounds Extremities: no cyanosis Laboratory Tests Test 12/03/18 04:55 White Blood Count 16.2 K/UL (4.8-10.8) H Red Blood Count 2.98 M/UL (4.70-6.10) L Hemoglobin 8.0 G/DL (14.2-18.0) L Hematocrit 25.2 % (42.0-52.0) L Mean Corpuscular Volume 85 FL (80-99) Mean Corpuscular Hemoglobin 26.8 PG (27.0-31.0) L Mean Corpuscular Hemoglobin Concent 31.6 G/DL (32.0-36.0) L Red Cell Distribution Width 16.2 % (11.6-14.8) H Platelet Count 280 K/UL (150-450) Mean Platelet Volume 7.1 FL (6.5-10.1) Neutrophils (%) (Auto) 69.3 % (45.0-75.0) Lymphocytes (%) (Auto) 12.9 % (20.0-45.0) L Monocytes (%) (Auto) 15.5 % (1.0-10.0) H Eosinophils (%) (Auto) 1.3 % (0.0-3.0) Basophils (%) (Auto) 1.0 % (0.0-2.0) Sodium Level 141 MMOL/L (136-145) Potassium Level 4.4 MMOL/L (3.5-5.1) Chloride Level 105 MMOL/L (98-107) Carbon Dioxide Level 34 MMOL/L (21-32) H Anion Gap 2 mmol/L (5-15) L Blood Urea Nitrogen 25 mg/dL (7-18) H Creatinine 0.9 MG/DL (0.55-1.30) Estimat Glomerular Filtration Rate mL/min (>60) Glucose Level 105 MG/DL (74-106) Calcium Level 8.2 MG/DL (8.5-10.1) L Plan Problems: (1) Severe sepsis Assessment & Plan: leukocytosis, anemia, lactic acidosis, fevers IV Abx imaging noted and reviewed US with no stones or dilated ducts elevated lft's likely due to liver disease exam as below cont abx trend labs leave crabtree for a few weeks Overall prognosis very guarded Continue with current care thank you will follow with recs Findings: Exam is somewhat limited, due to gastrostomy tube and overlying bowel gas limiting visualization of the abdominal aorta Gallbladder is unremarkable, without stones, wall thickening, nor pericholecystic fluid. Sonographic Carl's sign is negative. Common bile duct measures 4 mm in diameter. No intrahepatic biliary ductal dilatation. Liver demonstrates normal echogenicity, no focal abnormality. It demonstrates slight surface nodularity. It is enlarged. There is a 1 cm cyst which appears adjacent to the gallbladder wall. This is probably a small exophytic hepatic cyst. Portal vein and hepatic veins are patent. Pancreas is unremarkable. Spleen is unremarkable. Left kidney measures 9.2 cm in length. Right kidney measures 10.2 cm length. Both kidneys demonstrate normal echogenicity. There is no hydronephrosis. Both kidneys demonstrate cysts. . Abdominal aorta is partially obscured by bowel gas, visualized portions are non-aneurysmal . Impression: Negative for gallstones or dilated bile ducts Hepatic surface nodularity, may indicate early cirrhotic changes Hepatomegaly Incidental finding bilateral renal cysts (2) Malnutrition Assessment & Plan: DAILY ESTIMATED NEEDS: Needs based on Critical care, sepsis 71.8 kg 22-30 kcals/kg 1303-8938 total kcals 1.2-2 g protein/kg 86- 144 g total protein 25-30 mL/kg 1795- 2154 total fluid mLs NUTRITION DIAGNOSIS: * Swallowing difficulty R/T respiratory status and dysphagia as evidenced by pt is vent dep, on TF. * Altered nutrition related lab values r/t sepsis, clinical status, h/o Diabetes as evidenced by critically elev WBC (47.2), low Hgb (6.6), elev BNP, low BP (96/41), BG 191, POC 179. CURRENT TF: Jevity 1.2 @ 70mL/hr x 20hr - NOW NPO ENTERAL NUTRITION RECOMMENDATIONS: Vital 1.2 @55mL/hr x24 hrs to provide 1320mL, 1584kcal, 99g pro, 1071mL free H2O * As medically appropriate to feed, rec TF change to VITAL 1.2 for critical care. * Start Vital 1,2, @25mL, advance as tolerated 10ml/hr q4-6 hrs to goal * HOB over 30 degrees/ water flush per MD --- Low Hgb (6.6), NPO per GI-> rec trophic feeds when appropriate if pt remains hypotensive. ADDITIONAL RECOMMENDATIONS: * Per SNF: HT 68 inches WT 158 lbs + Daily calibrated bed scale wts * Change TF to Vital 1.2, as medically able to feed * Monitor lytes (replete as needed) * F/up w/ WC eval . (3) Sacral decubitus ulcer Assessment & Plan: Pt presented on admission with contractures and multiple pressure injuries. Partially opened DTPI L buttocks. Base of wound moist - viable with surrounding dark and fluctuant borders.(L)1.2cm x (W)1cm. Small amt of sanguineous exudate noted. No odor noted. Hyperpigmentation noted to sacrum. Historical scar from previous wound noted to L trochanter. Penile head retracted within foreskin and small wound noted within folds of foreskin. Wound is moist and viable. No odor or exudate noted. No erythema noted periwound. Resolving pressure injury plantar R heel. Base of wound 50% epithelialized, 50% moist and viable.(L)5.5cm x (W)6.5cm. Resolving pressure injury lateral L heel. Base of wound is moist and viable with surrounding hyperpigmentation.(L)0.6cm x (W)0.5cm. Scattered loose, dry brown skin noted to medial and posterior L heel. Tx.Plan: Apply Moisture Barrier Paste to L buttocks and sacrum. Cover with Optifoam drsg. Change every 3 days and prn. Cleanse head of penis with soap and water. Apply Bacitracin oint Twice Daily. Apply Betadine to R and L heel wounds. Cover each heel with Optifoam drsg. Daily and prn. APM/ABDELRAHMAN Mattress overlay. Reposition at least every 2hours and prn. Off-load heels with pillow. Don Carvalho Dec 03, 2018 15:28
[2018-12-03 16:00] VITALS: BP 148/72
--- NOTE | 2018-12-03 16:43 | Cardiac Electrophysiology PN ---
Assessment/Plan Assessment/Plan 1. S/P Septic shock with WBC 50,000 and lactic acid of 6. On IV antibiotic and IV fluid . WBC Still >16 K 2. S/P multiple episodes of asystole with pauses of more than 10 seconds off any MCGEE or AVN blockers. DW Son Mr. Faraz Erickson on 11/23/18 at [phone]. Family refusing the pacer and DNR. On prn Atropine. Echo Nl EF. 3. Congestive heart failure with BNP of more than 17,000. BNP 3000 range 4. Troponin elevation, likely due to renal failure and anemia and septic shock. The levels are flat. EKG does not show any ST elevation. 5. S/P Acute renal failure. Resolved BUN 15 and Cr now 0.8 6. Hypernatremia. Resolved. On D5W per Dr Fernandes 7. Ventilator-dependent respiratory failure, status post tracheostomy. 8. Dysphagia, status post PEG placement. 9. Profound anemia, hemoglobin of 6.5, rule out GI bleed. S/P blood transfusion and EGD 10. Bleeding from [place]. Being flushed prn per Dr. César CHOWDARY RN Subjective Subjective No new events on SDU. DNR. Family refused pacer Objective Last 24 Hour Vital Signs Date Time Temp Pulse Resp B/P (MAP) Pulse Ox O2 Delivery O2 Flow Rate FiO2 12/03/18 14:30 84 24 40 12/03/18 13:29 80 22 40 12/03/18 12:00 100 12/03/18 12:00 81 12/03/18 12:00 Mechanical Ventilator 12/03/18 11:48 99.1 87 22 152/74 (100) 95 12/03/18 11:21 88 26 40 12/03/18 09:05 80 33 99 Mechanical Ventilator 50.0 40 80 33 40 12/03/18 08:00 98.4 78 22 147/64 (91) 98 12/03/18 08:00 40 12/03/18 08:00 73 12/03/18 08:00 Mechanical Ventilator 12/03/18 07:06 82 23 40 12/03/18 05:01 88 25 40 12/03/18 04:00 Mechanical Ventilator 12/03/18 04:00 98.2 88 23 153/85 (107) 95 12/03/18 04:00 40 12/03/18 03:27 76 12/03/18 02:44 77 23 40 12/03/18 00:58 85 22 40 12/03/18 00:00 40 12/03/18 00:00 Mechanical Ventilator 12/03/18 00:00 98.6 71 25 136/106 (116) 96 12/02/18 23:26 71 12/02/18 22:40 74 22 40 12/02/18 21:26 80 22 100 Mechanical Ventilator 40 12/02/18 21:08 81 23 100 Mechanical Ventilator 40 81 23 40 12/02/18 20:00 Mechanical Ventilator 12/02/18 20:00 40 12/02/18 20:00 98.6 85 24 143/81 (101) 96 12/02/18 19:34 85 12/02/18 18:38 85 23 40 12/02/18 17:04 86 22 40 Intake and Output 12/02/18 12/03/18 19:00 07:00 Intake Total 1495 ml 715 ml Output Total 275 ml 800 ml Balance 1220 ml -85 ml Intake Free Water 200 ml IV Total 635 ml Tube Feeding 660 ml 715 ml Output Urine Total 275 ml 800 ml # Bowel Movements 1 Laboratory Tests Test 12/03/18 04:55 White Blood Count 16.2 K/UL (4.8-10.8) H Red Blood Count 2.98 M/UL (4.70-6.10) L Hemoglobin 8.0 G/DL (14.2-18.0) L Hematocrit 25.2 % (42.0-52.0) L Mean Corpuscular Volume 85 FL (80-99) Mean Corpuscular Hemoglobin 26.8 PG (27.0-31.0) L Mean Corpuscular Hemoglobin Concent 31.6 G/DL (32.0-36.0) L Red Cell Distribution Width 16.2 % (11.6-14.8) H Platelet Count 280 K/UL (150-450) Mean Platelet Volume 7.1 FL (6.5-10.1) Neutrophils (%) (Auto) 69.3 % (45.0-75.0) Lymphocytes (%) (Auto) 12.9 % (20.0-45.0) L Monocytes (%) (Auto) 15.5 % (1.0-10.0) H Eosinophils (%) (Auto) 1.3 % (0.0-3.0) Basophils (%) (Auto) 1.0 % (0.0-2.0) Sodium Level 141 MMOL/L (136-145) Potassium Level 4.4 MMOL/L (3.5-5.1) Chloride Level 105 MMOL/L (98-107) Carbon Dioxide Level 34 MMOL/L (21-32) H Anion Gap 2 mmol/L (5-15) L Blood Urea Nitrogen 25 mg/dL (7-18) H Creatinine 0.9 MG/DL (0.55-1.30) Estimat Glomerular Filtration Rate mL/min (>60) Glucose Level 105 MG/DL (74-106) Calcium Level 8.2 MG/DL (8.5-10.1) L Objective HEAD AND NECK: Tracheostomy intact. LUNGS: Coarse rhonchi. Decreased breath sounds CARDIOVASCULAR: Irregular irregular S1 and S2 with no gallop. ABDOMEN: Status post G-tube, distended. EXTREMITIES: Reveal 1+ edema. Luke Prather MD Dec 03, 2018 16:43
[2018-12-03 20:00] VITALS: BP 135/58
[2018-12-03] MEDS: Dyna-Hex 2% Top Sol 2oz TOPIC SCH (21:08)
[2018-12-03] MEDS: LORazepam Inj 2mg/ml 1ml IV PRN (21:08)
--- NOTE | 2018-12-03 21:43 | General Progress Note ---
Assessment/Plan Problem List: (1) Hypernatremia ICD Codes: E87.0 - Hyperosmolality and hypernatremia SNOMED: 59117116 (2) Rhabdomyolysis ICD Codes: M62.82 - Rhabdomyolysis SNOMED: 340848837 (3) Sacral decubitus ulcer ICD Codes: L89.159 - Pressure ulcer of sacral region, unspecified stage SNOMED: 685041956 (4) Severe sepsis ICD Codes: A41.9 - Sepsis, unspecified organism; R65.20 - Severe sepsis without septic shock SNOMED: 18274469 (5) Septic shock ICD Codes: A41.9 - Sepsis, unspecified organism; R65.21 - Severe sepsis with septic shock SNOMED: 11259023 (6) DM (7) Anemia ICD Codes: D64.9 - Anemia, unspecified SNOMED: 031130807 (8) Prostate enlargement ICD Codes: N40.0 - Benign prostatic hyperplasia without lower urinary tract symptoms SNOMED: 839765138 (9) Chronic renal disease ICD Codes: N18.9 - Chronic kidney disease, unspecified SNOMED: 999202854 (10) Ventilator dependence ICD Codes: Z99.11 - Dependence on respirator [ventilator] status SNOMED: 391219697 (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 - Gastrostomy status SNOMED: 095898094, 745060478 (12) Malnutrition ICD Codes: E46 - Unspecified protein-calorie malnutrition SNOMED: 34068677 Status: stable, progressing, unchanged Assessment/Plan: bph afebrile check lytes s/p anasarca junctional rhythem edema chf persistent leukocytosis improving Subjective ROS Limited/Unobtainable: Yes Allergies: Coded Allergies: TERAZOSIN (Verified Allergy, Unknown, 10/27/17) Objective Last 24 Hour Vital Signs Date Time Temp Pulse Resp B/P (MAP) Pulse Ox O2 Delivery O2 Flow Rate FiO2 12/03/18 21:25 74 26 40 12/03/18 19:30 78 24 40 12/03/18 17:17 80 22 40 12/03/18 16:00 86 12/03/18 16:00 40 12/03/18 16:00 100.0 87 25 148/72 (97) 100 12/03/18 16:00 Mechanical Ventilator 12/03/18 14:30 84 24 40 12/03/18 13:29 80 22 40 12/03/18 12:00 100 12/03/18 12:00 81 12/03/18 12:00 Mechanical Ventilator 12/03/18 11:48 99.1 87 22 152/74 (100) 95 12/03/18 11:21 88 26 40 12/03/18 09:05 80 33 99 Mechanical Ventilator 50.0 40 80 33 40 12/03/18 08:00 98.4 78 22 147/64 (91) 98 12/03/18 08:00 40 12/03/18 08:00 73 12/03/18 08:00 Mechanical Ventilator 12/03/18 07:06 82 23 40 12/03/18 05:01 88 25 40 12/03/18 04:00 Mechanical Ventilator 12/03/18 04:00 98.2 88 23 153/85 (107) 95 12/03/18 04:00 40 12/03/18 03:27 76 12/03/18 02:44 77 23 40 12/03/18 00:58 85 22 40 12/03/18 00:00 40 12/03/18 00:00 Mechanical Ventilator 12/03/18 00:00 98.6 71 25 136/106 (116) 96 12/02/18 23:26 71 12/02/18 22:40 74 22 40 Intake and Output 12/02/18 12/03/18 19:00 07:00 Intake Total 1495 ml 715 ml Output Total 275 ml 800 ml Balance 1220 ml -85 ml Intake Free Water 200 ml IV Total 635 ml Tube Feeding 660 ml 715 ml Output Urine Total 275 ml 800 ml # Bowel Movements 1 Laboratory Tests 12/03/18 04:55: White Blood Count 16.2H, Red Blood Count 2.98L, Hemoglobin 8.0L, Hematocrit 25.2L, Mean Corpuscular Volume 85, Mean Corpuscular Hemoglobin 26.8L, Mean Corpuscular Hemoglobin Concent 31.6L, Red Cell Distribution Width 16.2H, Platelet Count 280, Mean Platelet Volume 7.1, Neutrophils (%) (Auto) 69.3, Lymphocytes (%) (Auto) 12.9L, Monocytes (%) (Auto) 15.5H, Eosinophils (%) (Auto ) 1.3, Basophils (%) (Auto) 1.0, Sodium Level 141, Potassium Level 4.4, Chloride Level 105, Carbon Dioxide Level 34H, Anion Gap 2L, Blood Urea Nitrogen 25H, Creatinine 0.9, Estimat Glomerular Filtration Rate , Glucose Level 105, Calcium Level 8.2L Height (Feet): 5 Height (Inches): 5.00 Weight (Pounds): 166 Cardiovascular: normal rate Respiratory/Chest: lungs clear Trish Matias MD Dec 03, 2018 21:43
--- NOTE | 2018-12-03 22:05 | Pulmonology Progress Note ---
Assessment/Plan Assessment/Plan Pulmonary Progress Note Assessment/Plan Impression: Patient with Pneumonia - KPC/Acinetobacter Ventilator dependant respiratory failure, CXR improving slighly Severe sepsis - improved Leucocytosis NSTEMI Anemia Dysphagia s/p G tube Chronic wounds Dementia Organic Brain Syndrome Diabetes Chronic renal disease BPH Penile wound Hematuria - Urology following CHF H/o Hypertension Severe Protein Calorie Malnutrition Plan antibiotic regimen per ID monitor blood pressure HHN Q4 and monitor secretions and suction PRN on full vent support-AC- no wean DNAR multiorgan disease with poor prognosis monitor oxygen needs- and adjust monitor labs DVT and PUD prophylaxis Gtube feeds as able; monitor residuals and reflux aspiration monitor residuals for change will need jail care medications/laboratory data/nursing notes reviewed in detail note reviewed and edited care discussed with RN and RT Interval Events: care noted vitals stable poor LOC f ROS Limited/Unobtainable: Yes Condition: critical EKG Rhythm: Sinus Rhythm Residuals: minimal Tube Feeding Tolerated: yes Vital Signs Noted Labs Noted CXR: Impression: Evidence of slightly improved right pleural effusion. Otherwise little change Objective: WDWN NAD on vent and poorly responsive reduced breath sounds bilaterally with noted rhonchi [id number] without MRG NABS nontender no HSM; GT; non distended no CC mild edema nonfocal reduced LOC skin noted reviewed and edited Sputum: Organism 1 K.PNEUMONIAE CARBAPENEM RESIST GROWTH: 4+ only sens Colistin Organism 2 A.BAUMANII COMPLX - MDR GROWTH: 4+ Organism 3 PSEUDOMONAS AERUGINOSA GROWTH: 4+ Organism 4 PROTEUS MIRABILIS GROWTH: 4+ Subjective ROS Limited/Unobtainable: No Allergies: Coded Allergies: TERAZOSIN (Verified Allergy, Unknown, 10/27/17) Objective Last 24 Hour Vital Signs Date Time Temp Pulse Resp B/P (MAP) Pulse Ox O2 Delivery O2 Flow Rate FiO2 12/03/18 21:25 74 26 40 12/03/18 19:30 78 24 40 12/03/18 17:17 80 22 40 12/03/18 16:00 86 12/03/18 16:00 40 12/03/18 16:00 100.0 87 25 148/72 (97) 100 12/03/18 16:00 Mechanical Ventilator 12/03/18 14:30 84 24 40 12/03/18 13:29 80 22 40 12/03/18 12:00 100 12/03/18 12:00 81 12/03/18 12:00 Mechanical Ventilator 12/03/18 11:48 99.1 87 22 152/74 (100) 95 12/03/18 11:21 88 26 40 12/03/18 09:05 80 33 99 Mechanical Ventilator 50.0 40 80 33 40 12/03/18 08:00 98.4 78 22 147/64 (91) 98 12/03/18 08:00 40 12/03/18 08:00 73 12/03/18 08:00 Mechanical Ventilator 12/03/18 07:06 82 23 40 12/03/18 05:01 88 25 40 12/03/18 04:00 Mechanical Ventilator 12/03/18 04:00 98.2 88 23 153/85 (107) 95 12/03/18 04:00 40 12/03/18 03:27 76 12/03/18 02:44 77 23 40 12/03/18 00:58 85 22 40 12/03/18 00:00 40 12/03/18 00:00 Mechanical Ventilator 12/03/18 00:00 98.6 71 25 136/106 (116) 96 12/02/18 23:26 71 12/02/18 22:40 74 22 40 Intake and Output 12/02/18 12/03/18 19:00 07:00 Intake Total 1495 ml 715 ml Output Total 275 ml 800 ml Balance 1220 ml -85 ml Intake Free Water 200 ml IV Total 635 ml Tube Feeding 660 ml 715 ml Output Urine Total 275 ml 800 ml # Bowel Movements 1 Laboratory Tests 12/03/18 04:55: White Blood Count 16.2H, Red Blood Count 2.98L, Hemoglobin 8.0L, Hematocrit 25.2L, Mean Corpuscular Volume 85, Mean Corpuscular Hemoglobin 26.8L, Mean Corpuscular Hemoglobin Concent 31.6L, Red Cell Distribution Width 16.2H, Platelet Count 280, Mean Platelet Volume 7.1, Neutrophils (%) (Auto) 69.3, Lymphocytes (%) (Auto) 12.9L, Monocytes (%) (Auto) 15.5H, Eosinophils (%) (Auto ) 1.3, Basophils (%) (Auto) 1.0, Sodium Level 141, Potassium Level 4.4, Chloride Level 105, Carbon Dioxide Level 34H, Anion Gap 2L, Blood Urea Nitrogen 25H, Creatinine 0.9, Estimat Glomerular Filtration Rate , Glucose Level 105, Calcium Level 8.2L Current Medications Medications (Trade) Dose Ordered Sig/Ruthie Route PRN Reason Start Time Stop Time Status Last Admin Dose Admin Acetaminophen (Tylenol) 650 mg Q6H PRN GT Mild Pain/Temp > 100.5 11/28/18 06:05 12/15/18 06:04 12/01/18 13:41 Atropine Sulfate (Atropine 0.4mg/ ml) 0.4 mg Q5M PRN IVP HR<30 for 30 seconds 11/28/18 06:09 12/28/18 06:08 Bacitracin (Bacitracin 15gm tube) 1 applic BID TOPIC 12/01/18 18:00 12/31/18 17:59 12/03/18 18:31 Bisacodyl (Dulcolax) 10 mg DAILYPRN PRN RECTAL Constipation 11/28/18 06:05 12/18/18 06:04 Ceftazidime 2 gm/ Dextrose 110 ml @ 220 mls/hr Q8H IV 12/01/18 18:00 12/08/18 17:59 12/03/18 18:31 Chlorhexidine Gluconate (Rachael-Hex 2%) 1 applic DAILY@2000 TOPIC 11/28/18 20:00 12/15/18 19:59 12/03/18 21:08 Ciprofloxacin (Cipro 500mg tab) 500 mg EVERY 12 HOURS GT 11/29/18 09:00 12/06/18 08:59 12/03/18 21:08 Colistimethate Sodium (Colistin *inhalation use only*) 75 mg Q12HR@ INH 11/29/18 22:00 12/06/18 21:59 12/03/18 14:30 Dextrose (Dextrose 50%) 25 ml Q30M PRN IV Hypoglycemia 11/28/18 06:15 12/15/18 09:38 Dextrose (Dextrose 50%) 50 ml Q30M PRN IV Hypoglycemia 11/28/18 06:15 12/15/18 05:44 Insulin Aspart (NovoLOG) BEFORE MEALS AND HS SUBQ 11/28/18 06:30 12/15/18 06:29 12/03/18 21:00 Lansoprazole (Prevacid) 30 mg BID GT 11/28/18 18:00 12/28/18 17:59 12/03/18 18:32 Lorazepam (Ativan 2mg/ml 1ml) 0.5 mg Q2H PRN IV For Anxiety 11/29/18 13:51 12/06/18 13:50 12/03/18 21:08 Olanzapine (ZyPREXA Zydis) 7.5 mg DAILY GT 11/28/18 09:00 12/15/18 08:59 12/03/18 09:38 Booker Baumann MD Dec 03, 2018 22:05
[2018-12-04] VITALS: BP 154/89
[2018-12-04] MEDS: CefTAZidime 2 GM in D5W 110 ML IV SCH ×3 (01:39→18:00)
[2018-12-04] MEDS: LORazepam Inj 2mg/ml 1ml IV PRN (01:52)
[2018-12-04 04:00] VITALS: BP 146/86
[2018-12-04 05:01] LABS: HEMOGLOBIN 7.1 G/DL (14.2-18.0); MEAN CORPUSCULAR VOLUME 84 FL (80-99); PLATELET COUNT 264 K/UL (150-450); RED BLOOD COUNT 2.63 M/UL (4.70-6.10); RED CELL DISTRIBUTION WIDTH 15.7 % (11.6-14.8); WHITE BLOOD COUNT 12.9 K/UL (4.8-10.8)
[2018-12-04 05:21] LABS: ANION GAP 4 mmol/L (5-15); BLOOD UREA NITROGEN 25 mg/dL (7-18); CALCIUM 8.2 MG/DL (8.5-10.1); CARBON DIOXIDE 34 MMOL/L (21-32); CHLORIDE 108 MMOL/L (98-107); CREATININE 0.9 MG/DL (0.55-1.30); POTASSIUM 4.5 MMOL/L (3.5-5.1); SODIUM 146 MMOL/L (136-145)
[2018-12-04] MEDS: NovoLOG Insulin Flexpen SUBQ SCH ×4 (06:00→20:52)
--- NOTE | 2018-12-04 07:18 | General Progress Note ---
Assessment/Plan Problem List: (1) GIB (gastrointestinal bleeding) ICD Codes: K92.2 - Gastrointestinal hemorrhage, unspecified SNOMED: 68293662 (2) PEG (percutaneous endoscopic gastrostomy) status ICD Codes: Z93.1 - Gastrostomy status SNOMED: 786021478, 239933294 (3) Chronic renal disease ICD Codes: N18.9 - Chronic kidney disease, unspecified SNOMED: 175763784 (4) Prostate enlargement ICD Codes: N40.0 - Benign prostatic hyperplasia without lower urinary tract symptoms SNOMED: 364522939 (5) Anemia ICD Codes: D64.9 - Anemia, unspecified SNOMED: 514518358 (6) Septic shock ICD Codes: A41.9 - Sepsis, unspecified organism; R65.21 - Severe sepsis with septic shock SNOMED: 98994426 (7) Gastrostomy tube dependent ICD Codes: Z93.1 - Gastrostomy status SNOMED: 330754437, 291849730 Status: stable, progressing, unchanged Assessment/Plan: ppi prn blood transfusion abx per ID GTF EGD on hold given stable H&H and patient's poor medical condition hematuria>> fu urology recs Subjective ROS Limited/Unobtainable: No Allergies: Coded Allergies: TERAZOSIN (Verified Allergy, Unknown, 10/27/17) Objective Last 24 Hour Vital Signs Date Time Temp Pulse Resp B/P (MAP) Pulse Ox O2 Delivery O2 Flow Rate FiO2 12/04/18 05:11 89 27 40 12/04/18 04:00 40 12/04/18 04:00 75 12/04/18 04:00 Mechanical Ventilator 12/04/18 04:00 98.4 8 30 146/86 (106) 98 12/04/18 03:30 75 25 40 12/04/18 03:27 75 12/04/18 01:29 83 25 40 12/04/18 00:00 40 12/04/18 00:00 Mechanical Ventilator 12/04/18 00:00 98.0 79 28 154/89 (110) 100 12/03/18 23:30 77 24 40 12/03/18 23:26 79 12/03/18 21:25 74 26 40 12/03/18 20:00 Mechanical Ventilator 12/03/18 20:00 40 12/03/18 20:00 98.5 84 25 135/58 (83) 100 12/03/18 19:34 84 12/03/18 19:30 78 24 40 12/03/18 17:17 80 22 40 12/03/18 16:00 86 12/03/18 16:00 40 12/03/18 16:00 100.0 87 25 148/72 (97) 100 12/03/18 16:00 Mechanical Ventilator 12/03/18 14:30 84 24 40 12/03/18 13:29 80 22 40 12/03/18 12:00 100 12/03/18 12:00 81 12/03/18 12:00 Mechanical Ventilator 12/03/18 11:48 99.1 87 22 152/74 (100) 95 12/03/18 11:21 88 26 40 12/03/18 09:05 80 33 99 Mechanical Ventilator 50.0 40 80 33 40 12/03/18 08:00 98.4 78 22 147/64 (91) 98 12/03/18 08:00 40 12/03/18 08:00 73 12/03/18 08:00 Mechanical Ventilator Intake and Output 12/03/18 12/04/18 18:59 06:59 Intake Total 940 ml 1080 ml Output Total 200 ml 200 ml Balance 740 ml 880 ml Intake Free Water 50 ml 100 ml IV Total 110 ml 220 ml Tube Feeding 660 ml 660 ml Other 120 ml 100 ml Output Urine Total 200 ml 200 ml # Voids 4 3 # Bowel Movements 1 Laboratory Tests 12/04/18 03:05: White Blood Count 12.9H, Red Blood Count 2.63L, Hemoglobin 7.1L, Hematocrit 22.0L, Mean Corpuscular Volume 84, Mean Corpuscular Hemoglobin 27.0, Mean Corpuscular Hemoglobin Concent 32.2, Red Cell Distribution Width 15.7H, Platelet Count 264, Mean Platelet Volume 6.9, Neutrophils (%) (Auto) , Lymphocytes (%) (Auto) , Monocytes (%) (Auto) , Eosinophils (%) (Auto) , Basophils (%) (Auto) , Neutrophils % (Manual) [Pending], Lymphocytes % (Manual) [Pending], Platelet Estimate [Pending], Platelet Morphology [Pending], Sodium Level 146H, Potassium Level 4.5, Chloride Level 108H, Carbon Dioxide Level 34H, Anion Gap 4L, Blood Urea Nitrogen 25H, Creatinine 0.9, Estimat Glomerular Filtration Rate , Glucose Level 102, Calcium Level 8.2L 12/04/18 06:00: Stool Occult Blood [Pending] Height (Feet): 5 Height (Inches): 5.00 Weight (Pounds): 167 General Appearance: no apparent distress EENT: normal ENT inspection Neck: supple Cardiovascular: normal rate Respiratory/Chest: decreased breath sounds Abdomen: normal bowel sounds, non tender, soft Extremities: non-tender Juan Coronel MD Dec 04, 2018 07:18
[2018-12-04 08:00] VITALS: BP 142/54
[2018-12-04] MEDS: Bacitracin Oint 15gm Tube TOPIC SCH ×2 (08:41→18:00)
[2018-12-04] MEDS: Ciprofloxacin 500mg tab GT SCH ×2 (08:41→20:33)
[2018-12-04] MEDS: ZyPREXA Zydis 5mg tab GT SCH (08:41)
[2018-12-04] MEDS: Colistin for inhalation INH SCH ×2 (09:51→23:09)
--- NOTE | 2018-12-04 10:01 | General Progress Note ---
Assessment/Plan Problem List: (1) Hypernatremia ICD Codes: E87.0 - Hyperosmolality and hypernatremia SNOMED: 71845215 (2) Rhabdomyolysis ICD Codes: M62.82 - Rhabdomyolysis SNOMED: 598467637 (3) Sacral decubitus ulcer ICD Codes: L89.159 - Pressure ulcer of sacral region, unspecified stage SNOMED: 687321116 (4) Severe sepsis ICD Codes: A41.9 - Sepsis, unspecified organism; R65.20 - Severe sepsis without septic shock SNOMED: 39264800 (5) Septic shock ICD Codes: A41.9 - Sepsis, unspecified organism; R65.21 - Severe sepsis with septic shock SNOMED: 23064350 (6) DM (7) Anemia ICD Codes: D64.9 - Anemia, unspecified SNOMED: 043507827 (8) Prostate enlargement ICD Codes: N40.0 - Benign prostatic hyperplasia without lower urinary tract symptoms SNOMED: 643911149 (9) Chronic renal disease ICD Codes: N18.9 - Chronic kidney disease, unspecified SNOMED: 592409192 (10) Ventilator dependence ICD Codes: Z99.11 - Dependence on respirator [ventilator] status SNOMED: 785804491 (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 - Gastrostomy status SNOMED: 861149191, 875849646 (12) Malnutrition ICD Codes: E46 - Unspecified protein-calorie malnutrition SNOMED: 12131014 Status: stable, progressing, unchanged Assessment/Plan: severe anemia hb7.1 unstable for dc informed dr eduardo of low hb s/p anasarca junctional rhythem edema chf Subjective ROS Limited/Unobtainable: Yes Allergies: Coded Allergies: TERAZOSIN (Verified Allergy, Unknown, 10/27/17) Objective Last 24 Hour Vital Signs Date Time Temp Pulse Resp B/P (MAP) Pulse Ox O2 Delivery O2 Flow Rate FiO2 12/04/18 08:45 80 22 40 12/04/18 08:00 98.2 81 28 142/54 (83) 98 12/04/18 06:30 78 24 40 12/04/18 05:11 89 27 40 12/04/18 04:00 40 12/04/18 04:00 75 12/04/18 04:00 Mechanical Ventilator 12/04/18 04:00 98.4 8 30 146/86 (106) 98 12/04/18 03:30 75 25 40 12/04/18 03:27 75 12/04/18 01:29 83 25 40 12/04/18 00:00 40 12/04/18 00:00 Mechanical Ventilator 12/04/18 00:00 98.0 79 28 154/89 (110) 100 12/03/18 23:30 77 24 40 12/03/18 23:26 79 12/03/18 21:25 74 26 40 12/03/18 20:00 Mechanical Ventilator 12/03/18 20:00 40 12/03/18 20:00 98.5 84 25 135/58 (83) 100 12/03/18 19:34 84 12/03/18 19:30 78 24 40 12/03/18 17:17 80 22 40 12/03/18 16:00 86 12/03/18 16:00 40 12/03/18 16:00 100.0 87 25 148/72 (97) 100 12/03/18 16:00 Mechanical Ventilator 12/03/18 14:30 84 24 40 12/03/18 13:29 80 22 40 12/03/18 12:00 100 12/03/18 12:00 81 12/03/18 12:00 Mechanical Ventilator 12/03/18 11:48 99.1 87 22 152/74 (100) 95 12/03/18 11:21 88 26 40 Intake and Output 12/03/18 12/04/18 19:00 07:00 Intake Total 1100 ml 865 ml Output Total 200 ml 200 ml Balance 900 ml 665 ml Intake Free Water 100 ml 50 ml IV Total 220 ml 110 ml Tube Feeding 660 ml 605 ml Other 120 ml 100 ml Output Urine Total 200 ml 200 ml # Voids 4 3 # Bowel Movements 1 Laboratory Tests 12/04/18 03:05: White Blood Count 12.9H, Red Blood Count 2.63L, Hemoglobin 7.1L, Hematocrit 22.0L, Mean Corpuscular Volume 84, Mean Corpuscular Hemoglobin 27.0, Mean Corpuscular Hemoglobin Concent 32.2, Red Cell Distribution Width 15.7H, Platelet Count 264, Mean Platelet Volume 6.9, Neutrophils (%) (Auto) , Lymphocytes (%) (Auto) , Monocytes (%) (Auto) , Eosinophils (%) (Auto) , Basophils (%) (Auto) , Differential Total Cells Counted 100, Neutrophils % ( Manual) 74, Lymphocytes % (Manual) 12L, Monocytes % (Manual) 12H, Eosinophils % (Manual) 1, Basophils % (Manual) 1, Band Neutrophils 0, Platelet Estimate Adequate, Platelet Morphology Normal, Anisocytosis 1+, Sodium Level 146H, Potassium Level 4.5, Chloride Level 108H, Carbon Dioxide Level 34H, Anion Gap 4L , Blood Urea Nitrogen 25H, Creatinine 0.9, Estimat Glomerular Filtration Rate , Glucose Level 102, Calcium Level 8.2L 12/04/18 06:00: Stool Occult Blood [Pending] Height (Feet): 5 Height (Inches): 5.00 Weight (Pounds): 167 Respiratory/Chest: lungs clear Abdomen: soft Trish Matias MD Dec 04, 2018 10:00
--- NOTE | 2018-12-04 11:30 | Cardiac Electrophysiology PN ---
Assessment/Plan Assessment/Plan 1. S/P Septic shock with WBC 50,000 and lactic acid of 6. On IV antibiotic and IV fluid . WBC Still >16 K 2. S/P multiple episodes of asystole with pauses of more than 10 seconds off any MCGEE or AVN blockers. DW Son Mr. Faraz Erickson on 11/23/18 at [phone]. Family refusing the pacer and DNR. On prn Atropine. Echo Nl EF. 3. Congestive heart failure with BNP of more than 17,000. BNP 3000 range now 4. Troponin elevation, likely due to renal failure and anemia and septic shock. The levels are flat. EKG does not show any ST elevation. 5. S/P Acute renal failure. Resolved BUN 15 and Cr now 0.8 6. Hypernatremia. Resolved. On D5W per Dr Fernandes 7. Ventilator-dependent respiratory failure, status post tracheostomy. 8. Dysphagia, status post PEG placement. 9. Profound anemia, hemoglobin of 6.5, rule out GI bleed. S/P blood transfusion and EGD . Getting 2 more units today 10. S/P Bleeding from [place]. RICARDA RN Subjective Subjective DNR. Family refused pacer. Scheduled for transfusion today. Objective Last 24 Hour Vital Signs Date Time Temp Pulse Resp B/P (MAP) Pulse Ox O2 Delivery O2 Flow Rate FiO2 12/04/18 10:01 78 26 99 Mechanical Ventilator 40 63 26 30 12/04/18 08:45 80 22 40 12/04/18 08:00 40 12/04/18 08:00 98.2 81 28 142/54 (83) 98 12/04/18 08:00 Mechanical Ventilator 12/04/18 07:53 72 12/04/18 06:30 78 24 40 12/04/18 05:11 89 27 40 12/04/18 04:00 40 12/04/18 04:00 75 12/04/18 04:00 Mechanical Ventilator 12/04/18 04:00 98.4 8 30 146/86 (106) 98 12/04/18 03:30 75 25 40 12/04/18 03:27 75 12/04/18 01:29 83 25 40 12/04/18 00:00 40 12/04/18 00:00 Mechanical Ventilator 12/04/18 00:00 98.0 79 28 154/89 (110) 100 12/03/18 23:30 77 24 40 12/03/18 23:26 79 12/03/18 21:25 74 26 40 12/03/18 20:00 Mechanical Ventilator 12/03/18 20:00 40 12/03/18 20:00 98.5 84 25 135/58 (83) 100 12/03/18 19:34 84 12/03/18 19:30 78 24 40 12/03/18 17:17 80 22 40 12/03/18 16:00 86 12/03/18 16:00 40 12/03/18 16:00 100.0 87 25 148/72 (97) 100 12/03/18 16:00 Mechanical Ventilator 12/03/18 14:30 84 24 40 12/03/18 13:29 80 22 40 12/03/18 12:00 100 12/03/18 12:00 81 12/03/18 12:00 Mechanical Ventilator 12/03/18 11:48 99.1 87 22 152/74 (100) 95 Intake and Output 12/03/18 12/04/18 19:00 07:00 Intake Total 1100 ml 865 ml Output Total 200 ml 200 ml Balance 900 ml 665 ml Intake Free Water 100 ml 50 ml IV Total 220 ml 110 ml Tube Feeding 660 ml 605 ml Other 120 ml 100 ml Output Urine Total 200 ml 200 ml # Voids 4 3 # Bowel Movements 1 Laboratory Tests Test 12/04/18 03:05 12/04/18 06:00 White Blood Count 12.9 K/UL (4.8-10.8) H Red Blood Count 2.63 M/UL (4.70-6.10) L Hemoglobin 7.1 G/DL (14.2-18.0) L Hematocrit 22.0 % (42.0-52.0) L Mean Corpuscular Volume 84 FL (80-99) Mean Corpuscular Hemoglobin 27.0 PG (27.0-31.0) Mean Corpuscular Hemoglobin Concent 32.2 G/DL (32.0-36.0) Red Cell Distribution Width 15.7 % (11.6-14.8) H Platelet Count 264 K/UL (150-450) Mean Platelet Volume 6.9 FL (6.5-10.1) Neutrophils (%) (Auto) % (45.0-75.0) Lymphocytes (%) (Auto) % (20.0-45.0) Monocytes (%) (Auto) % (1.0-10.0) Eosinophils (%) (Auto) % (0.0-3.0) Basophils (%) (Auto) % (0.0-2.0) Differential Total Cells Counted 100 Neutrophils % (Manual) 74 % (45-75) Lymphocytes % (Manual) 12 % (20-45) L Monocytes % (Manual) 12 % (1-10) H Eosinophils % (Manual) 1 % (0-3) Basophils % (Manual) 1 % (0-2) Band Neutrophils 0 % (0-8) Platelet Estimate Adequate Platelet Morphology Normal Anisocytosis 1+ Sodium Level 146 MMOL/L (136-145) H Potassium Level 4.5 MMOL/L (3.5-5.1) Chloride Level 108 MMOL/L (98-107) H Carbon Dioxide Level 34 MMOL/L (21-32) H Anion Gap 4 mmol/L (5-15) L Blood Urea Nitrogen 25 mg/dL (7-18) H Creatinine 0.9 MG/DL (0.55-1.30) Estimat Glomerular Filtration Rate mL/min (>60) Glucose Level 102 MG/DL (74-106) Calcium Level 8.2 MG/DL (8.5-10.1) L Stool Occult Blood Pending Objective HEAD AND NECK: Tracheostomy intact. LUNGS: Coarse rhonchi. Decreased breath sounds CARDIOVASCULAR: Irregular irregular S1 and S2 with no gallop. ABDOMEN: Status post G-tube, distended. EXTREMITIES: Reveal 1+ edema. Luke Prather MD Dec 04, 2018 11:30
[2018-12-04 12:00] VITALS: BP 119/40
--- NOTE | 2018-12-04 12:46 | Nephrology Progress Note ---
Assessment/Plan Problem List: (1) Hematuria Assessment: persistant (2) Septic shock Assessment: WBCs rising (3) Ventilator dependence (4) Renal failure (ARF), acute on chronic (5) Prostate enlargement (6) Anemia (7) Hyperosmolality with hypernatremia Assessment Septic Shock Acute renal failure CKD underlying BPH Sever Anemia Chronic trach-Vent DM HypoAlbuminemia HyperNatremia Dementia Troponin elevation Plan WBC kevin and has hematuria ! Anemia worsened Patient DNR , but not comfort care Will discuss the plan of care D5W for hyperNatremia now in SDU family agreed to DNR labs reviewed- mag IV as needed avoid Nephrotoxics transfuse as needed crabtree monitor urine out put and renal parameters per orders Subjective ROS Limited/Unobtainable: Yes Objective Objective Last 24 Hour Vital Signs Date Time Temp Pulse Resp B/P (MAP) Pulse Ox O2 Delivery O2 Flow Rate FiO2 12/04/18 12:00 97.9 73 30 119/40 (66) 97 12/04/18 10:30 63 24 40 12/04/18 10:01 78 26 99 Mechanical Ventilator 40 63 26 30 12/04/18 08:45 80 22 40 12/04/18 08:00 40 12/04/18 08:00 98.2 81 28 142/54 (83) 98 12/04/18 08:00 Mechanical Ventilator 12/04/18 07:53 72 12/04/18 06:30 78 24 40 12/04/18 05:11 89 27 40 12/04/18 04:00 40 12/04/18 04:00 75 12/04/18 04:00 Mechanical Ventilator 12/04/18 04:00 98.4 8 30 146/86 (106) 98 12/04/18 03:30 75 25 40 12/04/18 03:27 75 12/04/18 01:29 83 25 40 12/04/18 00:00 40 12/04/18 00:00 Mechanical Ventilator 12/04/18 00:00 98.0 79 28 154/89 (110) 100 12/03/18 23:30 77 24 40 12/03/18 23:26 79 12/03/18 21:25 74 26 40 12/03/18 20:00 Mechanical Ventilator 12/03/18 20:00 40 12/03/18 20:00 98.5 84 25 135/58 (83) 100 12/03/18 19:34 84 12/03/18 19:30 78 24 40 12/03/18 17:17 80 22 40 12/03/18 16:00 86 12/03/18 16:00 40 12/03/18 16:00 100.0 87 25 148/72 (97) 100 12/03/18 16:00 Mechanical Ventilator 12/03/18 14:30 84 24 40 12/03/18 13:29 80 22 40 Intake and Output 12/03/18 12/04/18 19:00 07:00 Intake Total 1100 ml 865 ml Output Total 200 ml 200 ml Balance 900 ml 665 ml Intake Free Water 100 ml 50 ml IV Total 220 ml 110 ml Tube Feeding 660 ml 605 ml Other 120 ml 100 ml Output Urine Total 200 ml 200 ml # Voids 4 3 # Bowel Movements 1 Laboratory Tests 12/04/18 03:05: White Blood Count 12.9H, Red Blood Count 2.63L, Hemoglobin 7.1L, Hematocrit 22.0L, Mean Corpuscular Volume 84, Mean Corpuscular Hemoglobin 27.0, Mean Corpuscular Hemoglobin Concent 32.2, Red Cell Distribution Width 15.7H, Platelet Count 264, Mean Platelet Volume 6.9, Neutrophils (%) (Auto) , Lymphocytes (%) (Auto) , Monocytes (%) (Auto) , Eosinophils (%) (Auto) , Basophils (%) (Auto) , Differential Total Cells Counted 100, Neutrophils % ( Manual) 74, Lymphocytes % (Manual) 12L, Monocytes % (Manual) 12H, Eosinophils % (Manual) 1, Basophils % (Manual) 1, Band Neutrophils 0, Platelet Estimate Adequate, Platelet Morphology Normal, Anisocytosis 1+, Sodium Level 146H, Potassium Level 4.5, Chloride Level 108H, Carbon Dioxide Level 34H, Anion Gap 4L , Blood Urea Nitrogen 25H, Creatinine 0.9, Estimat Glomerular Filtration Rate , Glucose Level 102, Calcium Level 8.2L 12/04/18 06:00: Stool Occult Blood Negative Height (Feet): 5 Height (Inches): 5.00 Weight (Pounds): 167 General Appearance: no apparent distress, lethargic Cardiovascular: tachycardia Respiratory/Chest: decreased breath sounds Abdomen: distended Objective no change Randolph Fernandes MD Dec 04, 2018 12:46
--- NOTE | 2018-12-04 13:00 | Surgery Progress Note ---
Surgery Progress Note Subjective Additional Comments no acute events comfortable appearing stable labs noted hematuria improved. still bloody but serosang now and not negrito blood spoke with urology. appreciate assistance Objective Last 24 Hour Vital Signs Date Time Temp Pulse Resp B/P (MAP) Pulse Ox O2 Delivery O2 Flow Rate FiO2 12/04/18 12:00 97.9 73 30 119/40 (66) 97 12/04/18 10:30 63 24 40 12/04/18 10:01 78 26 99 Mechanical Ventilator 40 63 26 30 12/04/18 08:45 80 22 40 12/04/18 08:00 40 12/04/18 08:00 98.2 81 28 142/54 (83) 98 12/04/18 08:00 Mechanical Ventilator 12/04/18 07:53 72 12/04/18 06:30 78 24 40 12/04/18 05:11 89 27 40 12/04/18 04:00 40 12/04/18 04:00 75 12/04/18 04:00 Mechanical Ventilator 12/04/18 04:00 98.4 8 30 146/86 (106) 98 12/04/18 03:30 75 25 40 12/04/18 03:27 75 12/04/18 01:29 83 25 40 12/04/18 00:00 40 12/04/18 00:00 Mechanical Ventilator 12/04/18 00:00 98.0 79 28 154/89 (110) 100 12/03/18 23:30 77 24 40 12/03/18 23:26 79 12/03/18 21:25 74 26 40 12/03/18 20:00 Mechanical Ventilator 12/03/18 20:00 40 12/03/18 20:00 98.5 84 25 135/58 (83) 100 12/03/18 19:34 84 12/03/18 19:30 78 24 40 12/03/18 17:17 80 22 40 12/03/18 16:00 86 12/03/18 16:00 40 12/03/18 16:00 100.0 87 25 148/72 (97) 100 12/03/18 16:00 Mechanical Ventilator 12/03/18 14:30 84 24 40 12/03/18 13:29 80 22 40 I&O Intake and Output 12/03/18 12/04/18 19:00 07:00 Intake Total 1100 ml 865 ml Output Total 200 ml 200 ml Balance 900 ml 665 ml Intake Free Water 100 ml 50 ml IV Total 220 ml 110 ml Tube Feeding 660 ml 605 ml Other 120 ml 100 ml Output Urine Total 200 ml 200 ml # Voids 4 3 # Bowel Movements 1 Dressing: saturated Wound: other Drains: other Cardiovascular: RSR Respiratory: decreased breath sounds Abdomen: soft, non-tender, present bowel sounds, non-distended Extremities: no cyanosis, other Laboratory Tests Test 12/04/18 03:05 12/04/18 06:00 White Blood Count 12.9 K/UL (4.8-10.8) H Red Blood Count 2.63 M/UL (4.70-6.10) L Hemoglobin 7.1 G/DL (14.2-18.0) L Hematocrit 22.0 % (42.0-52.0) L Mean Corpuscular Volume 84 FL (80-99) Mean Corpuscular Hemoglobin 27.0 PG (27.0-31.0) Mean Corpuscular Hemoglobin Concent 32.2 G/DL (32.0-36.0) Red Cell Distribution Width 15.7 % (11.6-14.8) H Platelet Count 264 K/UL (150-450) Mean Platelet Volume 6.9 FL (6.5-10.1) Neutrophils (%) (Auto) % (45.0-75.0) Lymphocytes (%) (Auto) % (20.0-45.0) Monocytes (%) (Auto) % (1.0-10.0) Eosinophils (%) (Auto) % (0.0-3.0) Basophils (%) (Auto) % (0.0-2.0) Differential Total Cells Counted 100 Neutrophils % (Manual) 74 % (45-75) Lymphocytes % (Manual) 12 % (20-45) L Monocytes % (Manual) 12 % (1-10) H Eosinophils % (Manual) 1 % (0-3) Basophils % (Manual) 1 % (0-2) Band Neutrophils 0 % (0-8) Platelet Estimate Adequate Platelet Morphology Normal Anisocytosis 1+ Sodium Level 146 MMOL/L (136-145) H Potassium Level 4.5 MMOL/L (3.5-5.1) Chloride Level 108 MMOL/L (98-107) H Carbon Dioxide Level 34 MMOL/L (21-32) H Anion Gap 4 mmol/L (5-15) L Blood Urea Nitrogen 25 mg/dL (7-18) H Creatinine 0.9 MG/DL (0.55-1.30) Estimat Glomerular Filtration Rate mL/min (>60) Glucose Level 102 MG/DL (74-106) Calcium Level 8.2 MG/DL (8.5-10.1) L Stool Occult Blood Negative (NEGATIVE) Plan Problems: (1) Severe sepsis Assessment & Plan: leukocytosis, anemia, lactic acidosis, fevers IV Abx imaging noted and reviewed US with no stones or dilated ducts elevated lft's likely due to liver disease exam as below cont abx trend labs leave [place] for a few weeks Overall prognosis very guarded Continue with current care thank you will follow with recs Findings: Exam is somewhat limited, due to gastrostomy tube and overlying bowel gas limiting visualization of the abdominal aorta Gallbladder is unremarkable, without stones, wall thickening, nor pericholecystic fluid. Sonographic Carl's sign is negative. Common bile duct measures 4 mm in diameter. No intrahepatic biliary ductal dilatation. Liver demonstrates normal echogenicity, no focal abnormality. It demonstrates slight surface nodularity. It is enlarged. There is a 1 cm cyst which appears adjacent to the gallbladder wall. This is probably a small exophytic hepatic cyst. Portal vein and hepatic veins are patent. Pancreas is unremarkable. Spleen is unremarkable. Left kidney measures 9.2 cm in length. Right kidney measures 10.2 cm length. Both kidneys demonstrate normal echogenicity. There is no hydronephrosis. Both kidneys demonstrate cysts. . Abdominal aorta is partially obscured by bowel gas, visualized portions are non-aneurysmal . Impression: Negative for gallstones or dilated bile ducts Hepatic surface nodularity, may indicate early cirrhotic changes Hepatomegaly Incidental finding bilateral renal cysts (2) Malnutrition Assessment & Plan: DAILY ESTIMATED NEEDS: Needs based on Critical care, sepsis 71.8 kg 22-30 kcals/kg 6721-6679 total kcals 1.2-2 g protein/kg 86- 144 g total protein 25-30 mL/kg 1795- 2154 total fluid mLs NUTRITION DIAGNOSIS: * Swallowing difficulty R/T respiratory status and dysphagia as evidenced by pt is vent dep, on TF. * Altered nutrition related lab values r/t sepsis, clinical status, h/o Diabetes as evidenced by critically elev WBC (47.2), low Hgb (6.6), elev BNP, low BP (96/41), BG 191, POC 179. CURRENT TF: Jevity 1.2 @ 70mL/hr x 20hr - NOW NPO ENTERAL NUTRITION RECOMMENDATIONS: Vital 1.2 @55mL/hr x24 hrs to provide 1320mL, 1584kcal, 99g pro, 1071mL free H2O * As medically appropriate to feed, rec TF change to VITAL 1.2 for critical care. * Start Vital 1,2, @25mL, advance as tolerated 10ml/hr q4-6 hrs to goal * HOB over 30 degrees/ water flush per MD --- Low Hgb (6.6), NPO per GI-> rec trophic feeds when appropriate if pt remains hypotensive. ADDITIONAL RECOMMENDATIONS: * Per SNF: HT 68 inches WT 158 lbs + Daily calibrated bed scale wts * Change TF to Vital 1.2, as medically able to feed * Monitor lytes (replete as needed) * F/up w/ WC eval . (3) Sacral decubitus ulcer Assessment & Plan: Pt presented on admission with contractures and multiple pressure injuries. Partially opened DTPI L buttocks. Base of wound moist - viable with surrounding dark and fluctuant borders.(L)1.2cm x (W)1cm. Small amt of sanguineous exudate noted. No odor noted. Hyperpigmentation noted to sacrum. Historical scar from previous wound noted to L trochanter. Penile head retracted within foreskin and small wound noted within folds of foreskin. Wound is moist and viable. No odor or exudate noted. No erythema noted periwound. Resolving pressure injury plantar R heel. Base of wound 50% epithelialized, 50% moist and viable.(L)5.5cm x (W)6.5cm. Resolving pressure injury lateral L heel. Base of wound is moist and viable with surrounding hyperpigmentation.(L)0.6cm x (W)0.5cm. Scattered loose, dry brown skin noted to medial and posterior L heel. Tx.Plan: Apply Moisture Barrier Paste to L buttocks and sacrum. Cover with Optifoam drsg. Change every 3 days and prn. Cleanse head of penis with soap and water. Apply Bacitracin oint Twice Daily. Apply Betadine to R and L heel wounds. Cover each heel with Optifoam drsg. Daily and prn. APM/ABDELRAHMAN Mattress overlay. Reposition at least every 2hours and prn. Off-load heels with pillow. Don Carvalho Dec 04, 2018 13:00
--- NOTE | 2018-12-04 14:15 | Infectious Diseases Prog Note ---
Assessment/Plan Assessment/Plan IMPRESSION: Sepsis, Pyuria/ UTI treated Pneumonia with MDR pseudomonas, Acinetobacter, Proteus & Klebsiella BPH, ventilator-dependent respiratory failure Leukocytosis improving Acute renal failure, improving Diabetes mellitus, anemia, hypoxemic respiratory failure, dementia. 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 Phimosis/ paraphimosis Urethral stricture Asystole, cardiac pause DNR RECOMMENDATION: Continue Cipro , Colistin inhaler & Ceftazidime Family refused pacemaker placement Poor prognosis Subjective ROS Limited/Unobtainable: Yes Constitutional: Reports: fever Hematologic: Reports: other - receiving blood transfusion Allergies: Coded Allergies: TERAZOSIN (Verified Allergy, Unknown, 10/27/17) Objective Vital Signs Last 24 Hour Vital Signs Date Time Temp Pulse Resp B/P (MAP) Pulse Ox O2 Delivery O2 Flow Rate FiO2 12/04/18 12:00 Mechanical Ventilator 12/04/18 12:00 40 12/04/18 12:00 97.9 73 30 119/40 (66) 97 12/04/18 11:36 82 12/04/18 10:30 63 24 40 12/04/18 10:01 78 26 99 Mechanical Ventilator 40 63 26 30 12/04/18 08:45 80 22 40 12/04/18 08:00 40 12/04/18 08:00 98.2 81 28 142/54 (83) 98 12/04/18 08:00 Mechanical Ventilator 12/04/18 07:53 72 12/04/18 06:30 78 24 40 12/04/18 05:11 89 27 40 12/04/18 04:00 40 12/04/18 04:00 75 12/04/18 04:00 Mechanical Ventilator 12/04/18 04:00 98.4 8 30 146/86 (106) 98 12/04/18 03:30 75 25 40 12/04/18 03:27 75 12/04/18 01:29 83 25 40 12/04/18 00:00 40 12/04/18 00:00 Mechanical Ventilator 12/04/18 00:00 98.0 79 28 154/89 (110) 100 12/03/18 23:30 77 24 40 12/03/18 23:26 79 12/03/18 21:25 74 26 40 12/03/18 20:00 Mechanical Ventilator 12/03/18 20:00 40 10/28/19 20:00 98.5 84 25 135/58 (83) 100 12/03/18 19:34 84 12/03/18 19:30 78 24 40 12/03/18 17:17 80 22 40 12/03/18 16:00 86 12/03/18 16:00 40 12/03/18 16:00 100.0 87 25 148/72 (97) 100 12/03/18 16:00 Mechanical Ventilator 12/03/18 14:30 84 24 40 Height (Feet): 5 Height (Inches): 5.00 Weight (Pounds): 167 HEENT: status post trach Respiratory/Chest: lungs clear, other - on ventilator Cardiovascular: normal rate, other - PICC line Abdomen: distended, other - GT feeding Extremities: other - generalized edema Neurologic/Psychiatric: aphasia Laboratory Tests Test 12/04/18 03:05 12/04/18 06:00 White Blood Count 12.9 K/UL (4.8-10.8) H Red Blood Count 2.63 M/UL (4.70-6.10) L Hemoglobin 7.1 G/DL (14.2-18.0) L Hematocrit 22.0 % (42.0-52.0) L Mean Corpuscular Volume 84 FL (80-99) Mean Corpuscular Hemoglobin 27.0 PG (27.0-31.0) Mean Corpuscular Hemoglobin Concent 32.2 G/DL (32.0-36.0) Red Cell Distribution Width 15.7 % (11.6-14.8) H Platelet Count 264 K/UL (150-450) Mean Platelet Volume 6.9 FL (6.5-10.1) Neutrophils (%) (Auto) % (45.0-75.0) Lymphocytes (%) (Auto) % (20.0-45.0) Monocytes (%) (Auto) % (1.0-10.0) Eosinophils (%) (Auto) % (0.0-3.0) Basophils (%) (Auto) % (0.0-2.0) Differential Total Cells Counted 100 Neutrophils % (Manual) 74 % (45-75) Lymphocytes % (Manual) 12 % (20-45) L Monocytes % (Manual) 12 % (1-10) H Eosinophils % (Manual) 1 % (0-3) Basophils % (Manual) 1 % (0-2) Band Neutrophils 0 % (0-8) Platelet Estimate Adequate Platelet Morphology Normal Anisocytosis 1+ Sodium Level 146 MMOL/L (136-145) H Potassium Level 4.5 MMOL/L (3.5-5.1) Chloride Level 108 MMOL/L (98-107) H Carbon Dioxide Level 34 MMOL/L (21-32) H Anion Gap 4 mmol/L (5-15) L Blood Urea Nitrogen 25 mg/dL (7-18) H Creatinine 0.9 MG/DL (0.55-1.30) Estimat Glomerular Filtration Rate mL/min (>60) Glucose Level 102 MG/DL (74-106) Calcium Level 8.2 MG/DL (8.5-10.1) L Stool Occult Blood Negative (NEGATIVE) Current Medications Medications (Trade) Dose Ordered Sig/Ruthie Route PRN Reason Start Time Stop Time Status Last Admin Dose Admin Acetaminophen (Tylenol) 650 mg Q6H PRN GT Mild Pain/Temp > 100.5 11/28/18 06:05 12/15/18 06:04 12/01/18 13:41 Atropine Sulfate (Atropine 0.4mg/ ml) 0.4 mg Q5M PRN IVP HR<30 for 30 seconds 11/28/18 06:09 12/28/18 06:08 Bacitracin (Bacitracin 15gm tube) 1 applic BID TOPIC 12/01/18 18:00 12/31/18 17:59 12/04/18 08:41 Bisacodyl (Dulcolax) 10 mg DAILYPRN PRN RECTAL Constipation 11/28/18 06:05 12/18/18 06:04 Ceftazidime 2 gm/ Dextrose 110 ml @ 220 mls/hr Q8H IV 12/01/18 18:00 12/08/18 17:59 12/04/18 10:26 Chlorhexidine Gluconate (Rachael-Hex 2%) 1 applic DAILY@1999 TOPIC 11/28/18 20:00 12/15/18 19:59 12/03/18 21:08 Ciprofloxacin (Cipro 500mg tab) 500 mg EVERY 12 HOURS GT 11/29/18 09:00 12/06/18 08:59 12/04/18 08:41 Colistimethate Sodium (Colistin *inhalation use only*) 75 mg Q12HR@10,22 INH 11/29/18 22:00 12/06/18 21:59 12/04/18 09:51 Dextrose (Dextrose 50%) 25 ml Q30M PRN IV Hypoglycemia 11/28/18 06:15 12/15/18 09:38 Dextrose (Dextrose 50%) 50 ml Q30M PRN IV Hypoglycemia 11/28/18 06:15 12/15/18 05:44 Insulin Aspart (NovoLOG) BEFORE MEALS AND HS SUBQ 11/28/18 06:30 12/15/18 06:29 12/04/18 12:53 Lansoprazole (Prevacid) 30 mg BID GT 11/28/18 18:00 12/28/18 17:59 12/04/18 08:41 Lorazepam (Ativan 2mg/ml 1ml) 0.5 mg Q2H PRN IV For Anxiety 11/29/18 13:51 12/06/18 13:50 12/04/18 01:52 Olanzapine (ZyPREXA Zydis) 7.5 mg DAILY GT 11/28/18 09:00 12/15/18 08:59 12/04/18 08:41 Anam Cruz MD Dec 04, 2018 14:15
[2018-12-04] MEDS ORDERED: NS 500ML ONE (15:17)
[2018-12-04] MEDS ORDERED: NS 275ml ONE (15:17)
[2018-12-04] MEDS ORDERED: Tubing Blood Filter IV ONE (15:17)
[2018-12-04] MEDS ORDERED: Tubing IV Secondary IV ONE (15:17)
--- NOTE | 2018-12-04 15:50 | Pulmonology Progress Note ---
Assessment/Plan Assessment/Plan Pulmonary Progress Note Assessment/Plan Impression: Patient with Pneumonia - KPC/Acinetobacter/MDR pseudomonas, Proteus Ventilator dependant respiratory failure, stable Pulmonary Status Severe sepsis - improved Leucocytosis NSTEMI Anemia Dysphagia s/p G tube Chronic wounds Dementia Organic Brain Syndrome Diabetes Chronic renal disease BPH Penile wound Hematuria - Urology following CHF H/o Hypertension Severe Protein Calorie Malnutrition Plan antibiotic regimen per ID monitor blood pressure HHN Q4 and monitor secretions and suction PRN on full vent support-AC- no wean transfuse PRN DNAR multiorgan disease with poor prognosis monitor oxygen needs- and adjust monitor labs DVT and PUD prophylaxis Gtube feeds as able; monitor residuals and reflux aspiration monitor residuals for change will need intermediate care medications/laboratory data/nursing notes reviewed in detail note reviewed and edited care discussed with RN and RT Interval Events: care noted vitals stable poor LOC f ROS Limited/Unobtainable: Yes Condition: critical EKG Rhythm: Sinus Rhythm Residuals: minimal Tube Feeding Tolerated: yes Vital Signs Noted Labs Noted CXR: Impression: Evidence of slightly improved right pleural effusion. Otherwise little change Objective: WDWN NAD on vent and poorly responsive reduced breath sounds bilaterally with noted rhonchi [id number] without MRG NABS nontender no HSM; GT; non distended no CC mild edema nonfocal reduced LOC skin noted reviewed and edited Sputum: Organism 1 K.PNEUMONIAE CARBAPENEM RESIST GROWTH: 4+ only sens Colistin Organism 2 A.BAUMANII COMPLX - MDR GROWTH: 4+ Organism 3 PSEUDOMONAS AERUGINOSA GROWTH: 4+ Organism 4 PROTEUS MIRABILIS GROWTH: 4+ Subjective ROS Limited/Unobtainable: No Allergies: Coded Allergies: TERAZOSIN (Verified Allergy, Unknown, 10/27/17) Objective Last 24 Hour Vital Signs Date Time Temp Pulse Resp B/P (MAP) Pulse Ox O2 Delivery O2 Flow Rate FiO2 12/04/18 14:48 81 22 40 12/04/18 12:35 84 22 40 12/04/18 12:00 Mechanical Ventilator 12/04/18 12:00 40 12/04/18 12:00 97.9 73 30 119/40 (66) 97 12/04/18 11:36 82 12/04/18 10:30 63 24 40 12/04/18 10:01 78 26 99 Mechanical Ventilator 40 63 26 30 12/04/18 08:45 80 22 40 12/04/18 08:00 40 12/04/18 08:00 98.2 81 28 142/54 (83) 98 12/04/18 08:00 Mechanical Ventilator 12/04/18 07:53 72 12/04/18 06:30 78 24 40 12/04/18 05:11 89 27 40 12/04/18 04:00 40 12/04/18 04:00 75 12/04/18 04:00 Mechanical Ventilator 12/04/18 04:00 98.4 8 30 146/86 (106) 98 12/04/18 03:30 75 25 40 12/04/18 03:27 75 12/04/18 01:29 83 25 40 12/04/18 00:00 40 12/04/18 00:00 Mechanical Ventilator 12/04/18 00:00 98.0 79 28 154/89 (110) 100 12/03/18 23:30 77 24 40 12/03/18 23:26 79 12/03/18 21:25 74 26 40 12/03/18 20:00 Mechanical Ventilator 12/03/18 20:00 40 12/03/18 20:00 98.5 84 25 135/58 (83) 100 12/03/18 19:34 84 12/03/18 19:30 78 24 40 12/03/18 17:17 80 22 40 12/03/18 16:00 86 12/03/18 16:00 40 12/03/18 16:00 100.0 87 25 148/72 (97) 100 12/03/18 16:00 Mechanical Ventilator Intake and Output 12/03/18 12/04/18 19:00 07:00 Intake Total 1100 ml 865 ml Output Total 200 ml 200 ml Balance 900 ml 665 ml Intake Free Water 100 ml 50 ml IV Total 220 ml 110 ml Tube Feeding 660 ml 605 ml Other 120 ml 100 ml Output Urine Total 200 ml 200 ml # Voids 4 3 # Bowel Movements 1 Laboratory Tests 12/04/18 03:05: White Blood Count 12.9H, Red Blood Count 2.63L, Hemoglobin 7.1L, Hematocrit 22.0L, Mean Corpuscular Volume 84, Mean Corpuscular Hemoglobin 27.0, Mean Corpuscular Hemoglobin Concent 32.2, Red Cell Distribution Width 15.7H, Platelet Count 264, Mean Platelet Volume 6.9, Neutrophils (%) (Auto) , Lymphocytes (%) (Auto) , Monocytes (%) (Auto) , Eosinophils (%) (Auto) , Basophils (%) (Auto) , Differential Total Cells Counted 100, Neutrophils % ( Manual) 74, Lymphocytes % (Manual) 12L, Monocytes % (Manual) 12H, Eosinophils % (Manual) 1, Basophils % (Manual) 1, Band Neutrophils 0, Platelet Estimate Adequate, Platelet Morphology Normal, Anisocytosis 1+, Sodium Level 146H, Potassium Level 4.5, Chloride Level 108H, Carbon Dioxide Level 34H, Anion Gap 4L , Blood Urea Nitrogen 25H, Creatinine 0.9, Estimat Glomerular Filtration Rate , Glucose Level 102, Calcium Level 8.2L 12/04/18 06:00: Stool Occult Blood Negative Current Medications Medications (Trade) Dose Ordered Sig/Ruthie Route PRN Reason Start Time Stop Time Status Last Admin Dose Admin Acetaminophen (Tylenol) 650 mg Q6H PRN GT Mild Pain/Temp > 100.5 11/28/18 06:05 12/15/18 06:04 12/01/18 13:41 Atropine Sulfate (Atropine 0.4mg/ ml) 0.4 mg Q5M PRN IVP HR<30 for 30 seconds 11/28/18 06:09 12/28/18 06:08 Bacitracin (Bacitracin 15gm tube) 1 applic BID TOPIC 12/01/18 18:00 12/31/18 17:59 12/04/18 08:41 Bisacodyl (Dulcolax) 10 mg DAILYPRN PRN RECTAL Constipation 11/28/18 06:05 12/18/18 06:04 Ceftazidime 2 gm/ Dextrose 110 ml @ 220 mls/hr Q8H IV 12/01/18 18:00 12/08/18 17:59 12/04/18 10:26 Chlorhexidine Gluconate (Rachael-Hex 2%) 1 applic DAILY@1999 TOPIC 11/28/18 20:00 12/15/18 19:59 12/03/18 21:08 Ciprofloxacin (Cipro 500mg tab) 500 mg EVERY 12 HOURS GT 11/29/18 09:00 12/06/18 08:59 12/04/18 08:41 Colistimethate Sodium (Colistin *inhalation use only*) 75 mg Q12HR@ INH 11/29/18 22:00 12/06/18 21:59 12/04/18 09:51 Dextrose (Dextrose 50%) 25 ml Q30M PRN IV Hypoglycemia 11/28/18 06:15 12/15/18 09:38 Dextrose (Dextrose 50%) 50 ml Q30M PRN IV Hypoglycemia 11/28/18 06:15 12/15/18 05:44 Insulin Aspart (NovoLOG) BEFORE MEALS AND HS SUBQ 11/28/18 06:30 12/15/18 06:29 12/04/18 12:53 Lansoprazole (Prevacid) 30 mg BID GT 11/28/18 18:00 12/28/18 17:59 12/04/18 08:41 Lorazepam (Ativan 2mg/ml 1ml) 0.5 mg Q2H PRN IV For Anxiety 11/29/18 13:51 12/06/18 13:50 12/04/18 01:52 Olanzapine (ZyPREXA Zydis) 7.5 mg DAILY GT 11/28/18 09:00 12/15/18 08:59 12/04/18 08:41 Booker Baumann MD Dec 04, 2018 15:50
[2018-12-04 16:00] VITALS: BP 160/99
--- NOTE | 2018-12-04 17:20 | Hematology/Onc Progress Note ---
Assessment/Plan Assessment/Plan ASSESSMENT AND RECOMMENDATIONS # Leukocytosis. Likely related to underlying infection with sepsis and elevated severely on admission --> Imaging has been reviewed. Shows cxr left lung inil/v edema --> Blood cs and urine cx are reviewed --> Has been started on abx, empiric tx (zosyn)--> colistin/cipro --> PERIPHERAL SMEAR SHOWS ATYPICAL LYMPHOCYTES--> has stabilized, improved --> Flow cytometry ordered with pathologist -> no atypical findings are noted --> wbc 52k-->47k-->29k->16-->12-->14->12-->12-->21-->14->11->15->9-->11.4->24k- >28k --> picc was repositioned --> is off of any steriods, daily md review # Anemia of chronic disease, due to underlying chronic medical issues, multifactorial. --> Anemia w/u has been ordered --> with hyperferritinemia --> No evidence of hemolysis noted, peripheral smear has been reviewed --> Hgb goal >7. Transfuse as needed --> hgb trend 7.5-->6.6->9.1-->9.2-->8.9-->9.9->8.3-->8.5-->9.3-->8.2->8.4-->7.1 --> 2 units transfuse on 11/15, 2 more 12/04 --> will need to follow as outpatient and may need chelation therapy --> GI workup with egd showed gastritis # Failure to thrive (FTT) - decreased bmi and low protein --> cea 4.3 --> will obtain q3 day caloric counts --> mirtazapine as appetite stimulant --> GI consult on a prn basis, as needed for endosc # Asystole with pauses may need pm per family --> as per cards recs # Sepsis, which has improved --> abx as per id # dysphagia s/p PEG # Malnutrition. 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 Greatly appreciate consultation. Subjective Constitutional: Denies: no symptoms, chills, fever, malaise, weakness, other HEENT: Denies: no symptoms, eye pain, blurred vision, tearing, double vision, ear pain, ear discharge, nose pain, nose congestion, throat pain, throat swelling, mouth pain, mouth swelling, other Cardiovascular: Denies: no symptoms, chest pain, edema, irregular heart rate, lightheadedness, palpitations, syncope, other Respiratory: Denies: no symptoms, cough, shortness of breath, SOB with excertion, SOB at rest, sputum, wheezing, other Gastrointestinal/Abdominal: Denies: no symptoms, abdomen distended, abdominal pain, black stools, tarry stools, blood in stool, constipated, diarrhea, difficulty swallowing, nausea, poor appetite, poor fluid intake, rectal bleeding , vomiting, other Allergies: Coded Allergies: TERAZOSIN (Verified Allergy, Unknown, 10/27/17) Subjective 11/16: in the icu, is off pressors, doing better, no bleeding 11/18: no bleeding, remains on doxy and zosyn, no bleeding reported 11/19: out of the icu, on vent/trach, no major changes, jimenez rn 11/20: no bleeding noted, no night sweats, meds reviewed, no f/c 11/21: on vent, obtunded, with gt ongong, with picc, no bleeding .17: stricture advanced through with uro, with crabtree, labs noted 11/23: no events to report, no bleeding, labs reviewed, in icu 11/24: remains in the icu, with asystole, pending discussion with marlyn re pM 11/25: continues to have pauses, no bleeding, seen by cards, no events 11/26: no ets, no bleeding noted, no night sweats, no f/c 11/27: hgb 8.2, no bleeding or chills, no major changes on trach/vent, jimenez RN 11/28: agitated today, on vent/trach, jimenez dior, potential dc to [facility] 11/29: obtunded, is out of the unit, labs noted, wbc 24k 11/30: gt feeds on hold, no bleeding reported, no night sweats 12/01: is on abx, no bleeding, no f/c, no night sweats noted 12/04: no events to report, hgb 7.1, nor chills noted, to get 2 unit prbc Objective Objective Current Medications Medications (Trade) Dose Ordered Sig/Ruthie Route PRN Reason Start Time Stop Time Status Last Admin Dose Admin Acetaminophen (Tylenol) 650 mg Q6H PRN GT Mild Pain/Temp > 100.5 11/28/18 06:05 12/15/18 06:04 12/01/18 13:41 Atropine Sulfate (Atropine 0.4mg/ ml) 0.4 mg Q5M PRN IVP HR<30 for 30 seconds 11/28/18 06:09 12/28/18 06:08 Bacitracin (Bacitracin 15gm tube) 1 applic BID TOPIC 12/01/18 18:00 12/31/18 17:59 12/04/18 08:41 Bisacodyl (Dulcolax) 10 mg DAILYPRN PRN RECTAL Constipation 11/28/18 06:05 12/18/18 06:04 Ceftazidime 2 gm/ Dextrose 110 ml @ 220 mls/hr Q8H IV 12/01/18 18:00 12/08/18 17:59 12/04/18 10:26 Chlorhexidine Gluconate (Rachael-Hex 2%) 1 applic DAILY@1999 TOPIC 11/28/18 20:00 12/15/18 19:59 12/03/18 21:08 Ciprofloxacin (Cipro 500mg tab) 500 mg EVERY 12 HOURS GT 11/29/18 09:00 12/06/18 08:59 12/04/18 08:41 Colistimethate Sodium (Colistin *inhalation use only*) 75 mg Q12HR@ INH 11/29/18 22:00 12/06/18 21:59 12/04/18 09:51 Dextrose (Dextrose 50%) 25 ml Q30M PRN IV Hypoglycemia 11/28/18 06:15 12/15/18 09:38 Dextrose (Dextrose 50%) 50 ml Q30M PRN IV Hypoglycemia 11/28/18 06:15 12/15/18 05:44 Insulin Aspart (NovoLOG) BEFORE MEALS AND HS SUBQ 11/28/18 06:30 12/15/18 06:29 12/04/18 12:53 Lansoprazole (Prevacid) 30 mg BID GT 11/28/18 18:00 12/28/18 17:59 12/04/18 08:41 Lorazepam (Ativan 2mg/ml 1ml) 0.5 mg Q2H PRN IV For Anxiety 11/29/18 13:51 12/06/18 13:50 12/04/18 01:52 Olanzapine (ZyPREXA Zydis) 7.5 mg DAILY GT 11/28/18 09:00 12/15/18 08:59 12/04/18 08:41 Last 24 Hour Vital Signs Date Time Temp Pulse Resp B/P (MAP) Pulse Ox O2 Delivery O2 Flow Rate FiO2 12/04/18 16:43 100 28 40 12/04/18 16:00 40 12/04/18 16:00 Mechanical Ventilator 12/04/18 16:00 98.2 94 29 160/99 (119) 95 12/04/18 14:48 81 22 40 12/04/18 12:35 84 22 40 12/04/18 12:00 Mechanical Ventilator 12/04/18 12:00 40 12/04/18 12:00 97.9 73 30 119/40 (66) 97 12/04/18 11:36 82 12/04/18 10:30 63 24 40 12/04/18 10:01 78 26 99 Mechanical Ventilator 40 63 26 30 12/04/18 08:45 80 22 40 12/04/18 08:00 40 12/04/18 08:00 98.2 81 28 142/54 (83) 98 12/04/18 08:00 Mechanical Ventilator 12/04/18 07:53 72 12/04/18 06:30 78 24 40 12/04/18 05:11 89 27 40 12/04/18 04:00 40 12/04/18 04:00 75 12/04/18 04:00 Mechanical Ventilator 12/04/18 04:00 98.4 8 30 146/86 (106) 98 12/04/18 03:30 75 25 40 12/04/18 03:27 75 12/04/18 01:29 83 25 40 12/04/18 00:00 40 12/04/18 00:00 Mechanical Ventilator 12/04/18 00:00 98.0 79 28 154/89 (110) 100 12/03/18 23:30 77 24 40 12/03/18 23:26 79 12/03/18 21:25 74 26 40 12/03/18 20:00 Mechanical Ventilator 12/03/18 20:00 40 12/03/18 20:00 98.5 84 25 135/58 (83) 100 12/03/18 19:34 84 12/03/18 19:30 78 24 40 12/03/18 17:17 80 22 40 12/03/18 16:00 86 12/03/18 16:00 40 12/03/18 16:00 100.0 87 25 148/72 (97) 100 12/03/18 16:00 Mechanical Ventilator 12/03/18 14:30 84 24 40 12/03/18 13:29 80 22 40 12/03/18 12:00 100 12/03/18 12:00 81 12/03/18 12:00 Mechanical Ventilator 12/03/18 11:48 99.1 87 22 152/74 (100) 95 12/03/18 11:21 88 26 40 12/03/18 09:05 80 33 99 Mechanical Ventilator 50.0 40 80 33 40 12/03/18 08:00 98.4 78 22 147/64 (91) 98 12/03/18 08:00 40 12/03/18 08:00 73 12/03/18 08:00 Mechanical Ventilator 12/03/18 07:06 82 23 40 12/03/18 05:01 88 25 40 12/03/18 04:00 Mechanical Ventilator 12/03/18 04:00 98.2 88 23 153/85 (107) 95 12/03/18 04:00 40 12/03/18 03:27 76 12/03/18 02:44 77 23 40 12/03/18 00:58 85 22 40 12/03/18 00:00 40 12/03/18 00:00 Mechanical Ventilator 12/03/18 00:00 98.6 71 25 136/106 (116) 96 12/02/18 23:26 71 12/02/18 22:40 74 22 40 12/02/18 21:26 80 22 100 Mechanical Ventilator 40 12/02/18 21:08 81 23 100 Mechanical Ventilator 40 81 23 40 12/02/18 20:00 Mechanical Ventilator 12/02/18 20:00 40 12/02/18 20:00 98.6 85 24 143/81 (101) 96 12/02/18 19:34 85 12/02/18 18:38 85 23 40 Intake and Output 12/03/18 12/04/18 19:00 07:00 Intake Total 1100 ml 920 ml Output Total 200 ml 200 ml Balance 900 ml 720 ml Intake Free Water 100 ml 50 ml IV Total 220 ml 110 ml Tube Feeding 660 ml 660 ml Other 120 ml 100 ml Output Urine Total 200 ml 200 ml # Voids 4 3 # Bowel Movements 1 Labs Test 12/02/18 06:15 12/03/18 04:55 12/04/18 03:05 12/04/18 06:00 White Blood Count 17.2 K/UL (4.8-10.8) 16.2 K/UL (4.8-10.8) 12.9 K/UL (4.8-10.8) Red Blood Count 2.96 M/UL (4.70-6.10) 2.98 M/UL (4.70-6.10) 2.63 M/UL (4.70-6.10) Hemoglobin 8.0 G/DL (14.2-18.0) 8.0 G/DL (14.2-18.0) 7.1 G/DL (14.2-18.0) Hematocrit 25.4 % (42.0-52.0) 25.2 % (42.0-52.0) 22.0 % (42.0-52.0) Mean Corpuscular Volume 86 FL (80-99) 85 FL (80-99) 84 FL (80-99) Mean Corpuscular Hemoglobin 27.2 PG (27.0-31.0) 26.8 PG (27.0-31.0) 27.0 PG (27.0-31.0) Mean Corpuscular Hemoglobin Concent 31.7 G/DL (32.0-36.0) 31.6 G/DL (32.0-36.0) 32.2 G/DL (32.0-36.0) Red Cell Distribution Width 16.0 % (11.6-14.8) 16.2 % (11.6-14.8) 15.7 % (11.6-14.8) Platelet Count 215 K/UL (150-450) 280 K/UL (150-450) 264 K/UL (150-450) Mean Platelet Volume 7.3 FL (6.5-10.1) 7.1 FL (6.5-10.1) 6.9 FL (6.5-10.1) Neutrophils (%) (Auto) 76.3 % (45.0-75.0) 69.3 % (45.0-75.0) % (45.0-75.0) Lymphocytes (%) (Auto) 7.9 % (20.0-45.0) 12.9 % (20.0-45.0) % (20.0-45.0) Monocytes (%) (Auto) 13.1 % (1.0-10.0) 15.5 % (1.0-10.0) % (1.0-10.0) Eosinophils (%) (Auto) 1.3 % (0.0-3.0) 1.3 % (0.0-3.0) % (0.0-3.0) Basophils (%) (Auto) 1.4 % (0.0-2.0) 1.0 % (0.0-2.0) % (0.0-2.0) Sodium Level 142 MMOL/L (136-145) 141 MMOL/L (136-145) 146 MMOL/L (136-145) Potassium Level 4.6 MMOL/L (3.5-5.1) 4.4 MMOL/L (3.5-5.1) 4.5 MMOL/L (3.5-5.1) Chloride Level 103 MMOL/L (98-107) 105 MMOL/L (98-107) 108 MMOL/L (98-107) Carbon Dioxide Level 35 MMOL/L (21-32) 34 MMOL/L (21-32) 34 MMOL/L (21-32) Anion Gap 4 mmol/L (5-15) 2 mmol/L (5-15) 4 mmol/L (5-15) Blood Urea Nitrogen 26 mg/dL (7-18) 25 mg/dL (7-18) 25 mg/dL (7-18) Creatinine 0.9 MG/DL (0.55-1.30) 0.9 MG/DL (0.55-1.30) 0.9 MG/DL (0.55-1.30) Estimat Glomerular Filtration Rate mL/min (>60) mL/min (>60) mL/min (>60) Glucose Level 132 MG/DL (74-106) 105 MG/DL (74-106) 102 MG/DL (74-106) Uric Acid 3.8 MG/DL (2.6-7.2) Calcium Level 8.6 MG/DL (8.5-10.1) 8.2 MG/DL (8.5-10.1) 8.2 MG/DL (8.5-10.1) Phosphorus Level 2.7 MG/DL (2.5-4.9) Magnesium Level 2.1 MG/DL (1.8-2.4) Total Bilirubin 0.3 MG/DL (0.2-1.0) Aspartate Amino Transf (AST/SGOT) 29 U/L (15-37) Alanine Aminotransferase (ALT/SGPT) 39 U/L (12-78) Alkaline Phosphatase 144 U/L (46-116) C-Reactive Protein, Quantitative 21.8 mg/dL (0.00-0.90) Pro-B-Type Natriuretic Peptide 5608 pg/mL (0-125) Total Protein 6.6 G/DL (6.4-8.2) Albumin 1.7 G/DL (3.4-5.0) Globulin 4.9 g/dL Albumin/Globulin Ratio 0.3 (1.0-2.7) Differential Total Cells Counted 100 Neutrophils % (Manual) 74 % (45-75) Lymphocytes % (Manual) 12 % (20-45) Monocytes % (Manual) 12 % (1-10) Eosinophils % (Manual) 1 % (0-3) Basophils % (Manual) 1 % (0-2) Band Neutrophils 0 % (0-8) Platelet Estimate Adequate Platelet Morphology Normal Anisocytosis 1+ Stool Occult Blood Negative (NEGATIVE) Height (Feet): 5 Height (Inches): 5.00 Weight (Pounds): 167 Objective Vitals: reviewed Gen: no apparent distress Head: normocephalic EENT: normal ENT inspection Respiratory: other - intubated vent+ Cardiovascular: normal rate Gastrointestinal: gt - c/d/i Rectal: deferred Genitourinary: no CVA tenderness Skin: normal color +++ decub : ++ Beny Fields MD Dec 04, 2018 17:20
[2018-12-04 20:00] VITALS: BP 140/79
[2018-12-04] MEDS: Dyna-Hex 2% Top Sol 2oz TOPIC SCH (20:33)
[2018-12-05] VITALS (7 sets, daily range): BP systolic 130–159; BP diastolic 53–99
[2018-12-05] MEDS: LORazepam Inj 2mg/ml 1ml IV PRN (01:04)
[2018-12-05] MEDS: CefTAZidime 2 GM in D5W 110 ML IV SCH ×3 (01:13→17:56)
[2018-12-05 04:42] LABS: BASOPHILS % (AUTO) 0.8 % (0.0-2.0); EOSINOPHILS % (AUTO) 1.2 % (0.0-3.0); HEMATOCRIT 32.8 % (42.0-52.0); HEMOGLOBIN 10.6 G/DL (14.2-18.0); LYMPHOCYTES % (AUTO) 11.1 % (20.0-45.0); MEAN CORPUSCULAR VOLUME 86 FL (80-99); MONOCYTES % (AUTO) 12.7 % (1.0-10.0); NEUTROPHILS % (AUTO) 74.3 % (45.0-75.0); PLATELET COUNT 314 K/UL (150-450); RED BLOOD COUNT 3.81 M/UL (4.70-6.10); RED CELL DISTRIBUTION WIDTH 15.1 % (11.6-14.8); WHITE BLOOD COUNT 17.1 K/UL (4.8-10.8)
[2018-12-05] MEDS: NovoLOG Insulin Flexpen SUBQ SCH ×4 (05:47→20:09)
[2018-12-05] MEDS: ZyPREXA Zydis 5mg tab GT SCH (08:50)
[2018-12-05] MEDS: Ciprofloxacin 500mg tab GT SCH ×2 (08:50→20:09)
[2018-12-05] MEDS: Bacitracin Oint 15gm Tube TOPIC SCH ×2 (08:59→17:56)
[2018-12-05] MEDS: Colistin for inhalation INH SCH ×2 (09:22→21:58)
--- NOTE | 2018-12-05 10:01 | General Progress Note ---
Assessment/Plan Problem List: (1) GIB (gastrointestinal bleeding) ICD Codes: K92.2 - Gastrointestinal hemorrhage, unspecified SNOMED: 09594474 (2) PEG (percutaneous endoscopic gastrostomy) status ICD Codes: Z93.1 - Gastrostomy status SNOMED: 243944625, 511092484 (3) Chronic renal disease ICD Codes: N18.9 - Chronic kidney disease, unspecified SNOMED: 654357890 (4) Prostate enlargement ICD Codes: N40.0 - Benign prostatic hyperplasia without lower urinary tract symptoms SNOMED: 556697307 (5) Anemia ICD Codes: D64.9 - Anemia, unspecified SNOMED: 551303140 (6) Septic shock ICD Codes: A41.9 - Sepsis, unspecified organism; R65.21 - Severe sepsis with septic shock SNOMED: 83025779 (7) Gastrostomy tube dependent ICD Codes: Z93.1 - Gastrostomy status SNOMED: 112235039, 990906198 Status: stable, progressing, unchanged Assessment/Plan: ppi prn blood transfusion abx per ID GTF EGD on hold given stable H&H and patient's poor medical condition hematuria>> fu urology recs Subjective ROS Limited/Unobtainable: No Allergies: Coded Allergies: TERAZOSIN (Verified Allergy, Unknown, 10/27/17) Objective Last 24 Hour Vital Signs Date Time Temp Pulse Resp B/P (MAP) Pulse Ox O2 Delivery O2 Flow Rate FiO2 12/05/18 09:32 86 29 100 Mechanical Ventilator 88 30 12/05/18 09:15 88 30 40 12/05/18 08:00 40 12/05/18 08:00 Mechanical Ventilator 12/05/18 08:00 97.9 89 30 159/99 (119) 97 12/05/18 07:44 75 12/05/18 06:45 86 27 40 12/05/18 05:16 84 25 40 12/05/18 04:00 Mechanical Ventilator 12/05/18 04:00 40 12/05/18 04:00 97.9 82 30 154/71 (98) 98 12/05/18 04:00 98 12/05/18 03:31 89 24 40 12/05/18 02:43 95 24 96 Mechanical Ventilator 40 12/05/18 01:32 102 24 40 12/05/18 01:31 98.2 81 30 159/83 (108) 98 12/05/18 00:00 Mechanical Ventilator 12/05/18 00:00 98.2 81 30 158/91 (113) 98 12/05/18 00:00 40 12/05/18 00:00 92 12/04/18 23:24 84 22 100 Mechanical Ventilator 30 12/04/18 23:09 76 23 97 Mechanical Ventilator 40 76 23 30 12/04/18 21:06 81 26 40 12/04/18 20:00 79 12/04/18 20:00 Mechanical Ventilator 12/04/18 20:00 40 12/04/18 20:00 98.4 81 28 140/79 (99) 99 12/04/18 19:10 85 27 40 12/04/18 16:43 100 28 40 12/04/18 16:00 40 12/04/18 16:00 Mechanical Ventilator 12/04/18 16:00 98.2 94 29 160/99 (119) 95 12/04/18 15:33 77 12/04/18 14:48 81 22 40 12/04/18 12:35 84 22 40 12/04/18 12:00 Mechanical Ventilator 12/04/18 12:00 40 12/04/18 12:00 97.9 73 30 119/40 (66) 97 12/04/18 11:36 82 12/04/18 10:30 63 24 40 12/04/18 10:01 78 26 99 Mechanical Ventilator 40 63 26 30 Intake and Output 12/04/18 12/05/18 18:59 06:59 Intake Total 1060 ml 1130 ml Output Total 200 ml 200 ml Balance 860 ml 930 ml Intake Free Water 150 ml IV Total 110 ml Tube Feeding 660 ml 660 ml Blood Product 250 ml 360 ml Output Urine Total 200 ml 200 ml Laboratory Tests 12/05/18 03:00: White Blood Count 17.1H, Red Blood Count 3.81L, Hemoglobin 10.6#L, Hematocrit 32.8#L, Mean Corpuscular Volume 86, Mean Corpuscular Hemoglobin 27.8, Mean Corpuscular Hemoglobin Concent 32.3, Red Cell Distribution Width 15.1H, Platelet Count 314, Mean Platelet Volume 6.3L, Neutrophils (%) (Auto) 74.3, Lymphocytes (%) (Auto) 11.1L, Monocytes (%) (Auto) 12.7H, Eosinophils (%) (Auto ) 1.2, Basophils (%) (Auto) 0.8 Height (Feet): 5 Height (Inches): 5.00 Weight (Pounds): 169 General Appearance: no apparent distress EENT: normal ENT inspection Neck: supple Cardiovascular: normal rate Respiratory/Chest: decreased breath sounds Abdomen: normal bowel sounds, non tender, soft Extremities: non-tender Juan Coronel MD Dec 05, 2018 10:01
--- NOTE | 2018-12-05 12:27 | Nephrology Progress Note ---
Assessment/Plan Problem List: (1) Hematuria Assessment: persistant (2) Septic shock Assessment: WBCs rising (3) Ventilator dependence (4) Renal failure (ARF), acute on chronic (5) Prostate enlargement (6) Anemia (7) Hyperosmolality with hypernatremia Assessment Septic Shock Acute renal failure CKD underlying BPH Sever Anemia Chronic trach-Vent DM HypoAlbuminemia HyperNatremia Dementia Troponin elevation Plan doing poorly WBC kevin and has hematuria ! Anemia worsened, transfused Patient DNR , but not comfort care Will discuss the plan of care D5W for hyperNatremia now in SDU family agreed to DNR labs reviewed- mag IV as needed avoid Nephrotoxics transfuse as needed crabtree monitor urine out put and renal parameters per orders Subjective ROS Limited/Unobtainable: Yes Objective Objective Last 24 Hour Vital Signs Date Time Temp Pulse Resp B/P (MAP) Pulse Ox O2 Delivery O2 Flow Rate FiO2 12/05/18 12:00 40 12/05/18 11:10 87 30 40 12/05/18 09:32 86 29 100 Mechanical Ventilator 88 30 12/05/18 09:15 88 30 40 12/05/18 08:00 40 12/05/18 08:00 Mechanical Ventilator 12/05/18 08:00 97.9 89 30 159/99 (119) 97 12/05/18 07:44 75 12/05/18 06:45 86 27 40 12/05/18 05:16 84 25 40 12/05/18 04:00 Mechanical Ventilator 12/05/18 04:00 40 12/05/18 04:00 97.9 82 30 154/71 (98) 98 12/05/18 04:00 98 12/05/18 03:31 89 24 40 12/05/18 02:43 95 24 96 Mechanical Ventilator 40 12/05/18 01:32 102 24 40 12/05/18 01:31 98.2 81 30 159/83 (108) 98 12/05/18 00:00 Mechanical Ventilator 12/05/18 00:00 98.2 81 30 158/91 (113) 98 12/05/18 00:00 40 12/05/18 00:00 92 12/04/18 23:24 84 22 100 Mechanical Ventilator 30 12/04/18 23:09 76 23 97 Mechanical Ventilator 40 76 23 30 12/04/18 21:06 81 26 40 12/04/18 20:00 79 12/04/18 20:00 Mechanical Ventilator 12/04/18 20:00 40 12/04/18 20:00 98.4 81 28 140/79 (99) 99 12/04/18 19:10 85 27 40 12/04/18 16:43 100 28 40 12/04/18 16:00 40 12/04/18 16:00 Mechanical Ventilator 12/04/18 16:00 98.2 94 29 160/99 (119) 95 12/04/18 15:33 77 12/04/18 14:48 81 22 40 12/04/18 12:35 84 22 40 Intake and Output 12/04/18 12/05/18 18:59 06:59 Intake Total 1060 ml 1130 ml Output Total 200 ml 200 ml Balance 860 ml 930 ml Intake Free Water 150 ml IV Total 110 ml Tube Feeding 660 ml 660 ml Blood Product 250 ml 360 ml Output Urine Total 200 ml 200 ml Laboratory Tests 12/05/18 03:00: White Blood Count 17.1H, Red Blood Count 3.81L, Hemoglobin 10.6#L, Hematocrit 32.8#L, Mean Corpuscular Volume 86, Mean Corpuscular Hemoglobin 27.8, Mean Corpuscular Hemoglobin Concent 32.3, Red Cell Distribution Width 15.1H, Platelet Count 314, Mean Platelet Volume 6.3L, Neutrophils (%) (Auto) 74.3, Lymphocytes (%) (Auto) 11.1L, Monocytes (%) (Auto) 12.7H, Eosinophils (%) (Auto ) 1.2, Basophils (%) (Auto) 0.8 Height (Feet): 5 Height (Inches): 5.00 Weight (Pounds): 169 General Appearance: mild distress Cardiovascular: tachycardia Respiratory/Chest: decreased breath sounds, rhonchi - bilaterally Abdomen: distended Objective no change Randolph Fernandes MD Dec 05, 2018 12:27
[2018-12-05] MEDS ORDERED: NS 275ml ONE (13:02)
[2018-12-05] MEDS ORDERED: Tubing IV Blood Pump IV ONE (13:02)
--- NOTE | 2018-12-05 14:31 | Cardiac Electrophysiology PN ---
Assessment/Plan Assessment/Plan 1. S/P Septic shock with WBC 50,000 and lactic acid of 6. On IV antibiotic and IV fluid . WBC Still >16 K 2. S/P multiple episodes of asystole with pauses of more than 10 seconds off any MCGEE or AVN blockers. DW Son Mr. Faraz Erickson on 11/23/18 at [phone]. Family refusing the pacer and DNR. On prn Atropine. Echo Nl EF. 3. Congestive heart failure with BNP of more than 17,000. BNP 3000 range now 4. Troponin elevation, likely due to renal failure and anemia and septic shock. The levels are flat. EKG does not show any ST elevation. 5. S/P Acute renal failure. Resolved BUN 15 and Cr now 0.8 6. Hypernatremia. Resolved. On D5W per Dr Fernandes 7. Ventilator-dependent respiratory failure, status post tracheostomy. 8. Dysphagia, status post PEG placement. 9. Profound anemia, hemoglobin of 6.5, rule out GI bleed. S/P blood transfusion and EGD . 10. Active hematuria, Irrigation on going by RN Cassius CHOWDARY RN Subjective Subjective DNR. Still has hematuria and had transfusion . Objective Last 24 Hour Vital Signs Date Time Temp Pulse Resp B/P (MAP) Pulse Ox O2 Delivery O2 Flow Rate FiO2 12/05/18 12:34 76 25 40 12/05/18 12:00 40 12/05/18 12:00 Mechanical Ventilator 12/05/18 12:00 97.8 98 28 130/53 (78) 96 12/05/18 11:42 82 12/05/18 11:10 87 30 40 12/05/18 09:32 86 29 100 Mechanical Ventilator 88 30 12/05/18 09:15 88 30 40 12/05/18 08:00 40 12/05/18 08:00 Mechanical Ventilator 12/05/18 08:00 97.9 89 30 159/99 (119) 97 12/05/18 07:44 75 12/05/18 06:45 86 27 40 12/05/18 05:16 84 25 40 12/05/18 04:00 Mechanical Ventilator 12/05/18 04:00 40 12/05/18 04:00 97.9 82 30 154/71 (98) 98 12/05/18 04:00 98 12/05/18 03:31 89 24 40 12/05/18 02:43 95 24 96 Mechanical Ventilator 40 12/05/18 01:32 102 24 40 12/05/18 01:31 98.2 81 30 159/83 (108) 98 12/05/18 00:00 Mechanical Ventilator 12/05/18 00:00 98.2 81 30 158/91 (113) 98 12/05/18 00:00 40 12/05/18 00:00 92 12/04/18 23:24 84 22 100 Mechanical Ventilator 30 12/04/18 23:09 76 23 97 Mechanical Ventilator 40 76 23 30 12/04/18 21:06 81 26 40 12/04/18 20:00 79 12/04/18 20:00 Mechanical Ventilator 12/04/18 20:00 40 12/04/18 20:00 98.4 81 28 140/79 (99) 99 12/04/18 19:10 85 27 40 12/04/18 16:43 100 28 40 12/04/18 16:00 40 12/04/18 16:00 Mechanical Ventilator 12/04/18 16:00 98.2 94 29 160/99 (119) 95 12/04/18 15:33 77 12/04/18 14:48 81 22 40 Intake and Output 12/04/18 12/05/18 19:00 07:00 Intake Total 1180 ml 1010 ml Output Total 200 ml 200 ml Balance 980 ml 810 ml Intake Free Water 150 ml IV Total 110 ml Tube Feeding 660 ml 660 ml Blood Product 370 ml 240 ml Output Urine Total 200 ml 200 ml Laboratory Tests Test 12/05/18 03:00 White Blood Count 17.1 K/UL (4.8-10.8) H Red Blood Count 3.81 M/UL (4.70-6.10) L Hemoglobin 10.6 G/DL (14.2-18.0) #L Hematocrit 32.8 % (42.0-52.0) #L Mean Corpuscular Volume 86 FL (80-99) Mean Corpuscular Hemoglobin 27.8 PG (27.0-31.0) Mean Corpuscular Hemoglobin Concent 32.3 G/DL (32.0-36.0) Red Cell Distribution Width 15.1 % (11.6-14.8) H Platelet Count 314 K/UL (150-450) Mean Platelet Volume 6.3 FL (6.5-10.1) L Neutrophils (%) (Auto) 74.3 % (45.0-75.0) Lymphocytes (%) (Auto) 11.1 % (20.0-45.0) L Monocytes (%) (Auto) 12.7 % (1.0-10.0) H Eosinophils (%) (Auto) 1.2 % (0.0-3.0) Basophils (%) (Auto) 0.8 % (0.0-2.0) Objective HEAD AND NECK: Tracheostomy intact. LUNGS: Coarse rhonchi. Decreased breath sounds CARDIOVASCULAR: Irregular irregular S1 and S2 with no gallop. ABDOMEN: Status post G-tube, distended. EXTREMITIES: Reveal 1+ edema. Luke Prather MD Dec 05, 2018 14:31
--- NOTE | 2018-12-05 14:36 | Hematology/Onc Progress Note ---
Assessment/Plan Assessment/Plan ASSESSMENT AND RECOMMENDATIONS # Leukocytosis. Likely related to underlying infection with sepsis and elevated severely on admission --> Imaging has been reviewed. Shows cxr left lung inil/v edema --> Blood cs and urine cx are reviewed --> Has been started on abx, empiric tx (zosyn)--> colistin/cipro --> PERIPHERAL SMEAR SHOWS ATYPICAL LYMPHOCYTES--> has stabilized, improved --> Flow cytometry ordered with pathologist -> no atypical findings are noted --> wbc 52k-->47k-->29k->16-->12-->14->12-->12-->21-->14->11->15->9-->11.4->24k- >28k-->16k-->13-->17k --> picc was repositioned --> is off of any steriods, daily md review --> for urology evaluation # Anemia of chronic disease, due to underlying chronic medical issues, multifactorial. --> Anemia w/u has been ordered --> with hyperferritinemia --> No evidence of hemolysis noted, peripheral smear has been reviewed --> Hgb goal >7. Transfuse as needed --> hgb trend 7.5-->6.6->9.1-->9.2-->8.9-->9.9->8.3-->8.5-->9.3-->8.2->8.4-->7.1 -->10.6 --> 2 units transfuse on 11/15, 2 more 12/04 --> will need to follow as outpatient and may need chelation therapy --> GI workup with egd showed gastritis --> hematuria eval as per UROL # Failure to thrive (FTT) - decreased bmi and low protein --> cea 4.3 --> will obtain q3 day caloric counts --> mirtazapine as appetite stimulant --> GI consult on a prn basis, as needed for endosc # Asystole with pauses may need pm per family --> as per cards recs # Sepsis, which has improved --> abx as per id # dysphagia s/p PEG # Malnutrition. 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 Greatly appreciate consultation. Subjective Constitutional: Denies: no symptoms, chills, fever, malaise, weakness, other HEENT: Denies: no symptoms, eye pain, blurred vision, tearing, double vision, ear pain, ear discharge, nose pain, nose congestion, throat pain, throat swelling, mouth pain, mouth swelling, other Cardiovascular: Denies: no symptoms, chest pain, edema, irregular heart rate, lightheadedness, palpitations, syncope, other Respiratory: Denies: no symptoms, cough, shortness of breath, SOB with excertion, SOB at rest, sputum, wheezing, other Gastrointestinal/Abdominal: Denies: no symptoms, abdomen distended, abdominal pain, black stools, tarry stools, blood in stool, constipated, diarrhea, difficulty swallowing, nausea, poor appetite, poor fluid intake, rectal bleeding , vomiting, other Genitourinary: Denies: no symptoms, burning, discharge, frequency, flank pain, hematuria, incontinence, pain, urgency, other Neurologic/Psychiatric: Denies: no symptoms, anxiety, depressed, emotional problems, headache, numbness, paresthesia, pre-existing deficit, seizure, tingling, tremors, weakness, other Endocrine: Denies: no symptoms, excessive sweating, flushing, intolerance to cold, intolerance to heat, increased hunger, increased thirst, increased urine, unexplained weight gain, unexplained weight loss, other Allergies: Coded Allergies: TERAZOSIN (Verified Allergy, Unknown, 10/27/17) Subjective 11/16: in the icu, is off pressors, doing better, no bleeding 11/18: no bleeding, remains on doxy and zosyn, no bleeding reported 11/19: out of the icu, on vent/trach, no major changes, dw rn 11/20: no bleeding noted, no night sweats, meds reviewed, no f/c 11/21: on vent, obtunded, with gt ongong, with picc, no bleeding 10.17: stricture advanced through with uro, with crabtree, labs noted 11/23: no events to report, no bleeding, labs reviewed, in icu 11/24: remains in the icu, with asystole, pending discussion with fam re pM 11/25: continues to have pauses, no bleeding, seen by cards, no events 11/26: no ets, no bleeding noted, no night sweats, no f/c 11/27: hgb 8.2, no bleeding or chills, no major changes on trach/vent, jimenez RN 11/28: agitated today, on vent/trach, jimenez rn, potential dc to [facility] 11/29: obtunded, is out of the unit, labs noted, wbc 24k 11/30: gt feeds on hold, no bleeding reported, no night sweats 12/01: is on abx, no bleeding, no f/c, no night sweats noted 12/04: no events to report, hgb 7.1, nor chills noted, to get 2 unit prbc 12/05: for blood transfusion which was completed, but wbc higher, with hematruia , is dnr Objective Objective Current Medications Medications (Trade) Dose Ordered Sig/Ruthie Route PRN Reason Start Time Stop Time Status Last Admin Dose Admin Acetaminophen (Tylenol) 650 mg Q6H PRN GT Mild Pain/Temp > 100.5 11/28/18 06:05 12/15/18 06:04 12/01/18 13:41 Atropine Sulfate (Atropine 0.4mg/ ml) 0.4 mg Q5M PRN IVP HR<30 for 30 seconds 11/28/18 06:09 12/28/18 06:08 Bacitracin (Bacitracin 15gm tube) 1 applic BID TOPIC 12/01/18 18:00 12/31/18 17:59 12/05/18 08:59 Bisacodyl (Dulcolax) 10 mg DAILYPRN PRN RECTAL Constipation 11/28/18 06:05 12/18/18 06:04 Ceftazidime 2 gm/ Dextrose 110 ml @ 220 mls/hr Q8H IV 12/01/18 18:00 12/08/18 17:59 12/05/18 10:00 Chlorhexidine Gluconate (Rachael-Hex 2%) 1 applic DAILY@1999 TOPIC 11/28/18 20:00 12/15/18 19:59 12/04/18 20:33 Ciprofloxacin (Cipro 500mg tab) 500 mg EVERY 12 HOURS GT 11/29/18 09:00 12/06/18 23:59 12/05/18 08:50 Colistimethate Sodium (Colistin *inhalation use only*) 75 mg Q12HR@10,22 INH 11/29/18 22:00 12/06/18 23:59 12/05/18 09:22 Dextrose (Dextrose 50%) 25 ml Q30M PRN IV Hypoglycemia 11/28/18 06:15 12/15/18 09:38 Dextrose (Dextrose 50%) 50 ml Q30M PRN IV Hypoglycemia 11/28/18 06:15 12/15/18 05:44 Insulin Aspart (NovoLOG) BEFORE MEALS AND HS SUBQ 11/28/18 06:30 12/15/18 06:29 12/05/18 11:19 Lansoprazole (Prevacid) 30 mg BID GT 11/28/18 18:00 12/28/18 17:59 12/05/18 08:50 Lorazepam (Ativan 2mg/ml 1ml) 0.5 mg Q2H PRN IV For Anxiety 11/29/18 13:51 12/06/18 13:50 12/05/18 01:04 Olanzapine (ZyPREXA Zydis) 7.5 mg DAILY GT 11/28/18 09:00 12/15/18 08:59 12/05/18 08:50 Last 24 Hour Vital Signs Date Time Temp Pulse Resp B/P (MAP) Pulse Ox O2 Delivery O2 Flow Rate FiO2 12/05/18 12:34 76 25 40 12/05/18 12:00 40 12/05/18 12:00 Mechanical Ventilator 12/05/18 12:00 97.8 98 28 130/53 (78) 96 12/05/18 11:42 82 12/05/18 11:10 87 30 40 12/05/18 09:32 86 29 100 Mechanical Ventilator 88 30 12/05/18 09:15 88 30 40 12/05/18 08:00 40 12/05/18 08:00 Mechanical Ventilator 12/05/18 08:00 97.9 89 30 159/99 (119) 97 12/05/18 07:44 75 12/05/18 06:45 86 27 40 12/05/18 05:16 84 25 40 12/05/18 04:00 Mechanical Ventilator 12/05/18 04:00 40 12/05/18 04:00 97.9 82 30 154/71 (98) 98 12/05/18 04:00 98 12/05/18 03:31 89 24 40 12/05/18 02:43 95 24 96 Mechanical Ventilator 40 12/05/18 01:32 102 24 40 12/05/18 01:31 98.2 81 30 159/83 (108) 98 12/05/18 00:00 Mechanical Ventilator 12/05/18 00:00 98.2 81 30 158/91 (113) 98 12/05/18 00:00 40 12/05/18 00:00 92 12/04/18 23:24 84 22 100 Mechanical Ventilator 30 12/04/18 23:09 76 23 97 Mechanical Ventilator 40 76 23 30 12/04/18 21:06 81 26 40 12/04/18 20:00 79 12/04/18 20:00 Mechanical Ventilator 12/04/18 20:00 40 12/04/18 20:00 98.4 81 28 140/79 (99) 99 12/04/18 19:10 85 27 40 12/04/18 16:43 100 28 40 12/04/18 16:00 40 12/04/18 16:00 Mechanical Ventilator 12/04/18 16:00 98.2 94 29 160/99 (119) 95 12/04/18 15:33 77 12/04/18 14:48 81 22 40 12/04/18 12:35 84 22 40 12/04/18 12:00 Mechanical Ventilator 12/04/18 12:00 40 12/04/18 12:00 97.9 73 30 119/40 (66) 97 12/04/18 11:36 82 12/04/18 10:30 63 24 40 12/04/18 10:01 78 26 99 Mechanical Ventilator 40 63 26 30 12/04/18 08:45 80 22 40 12/04/18 08:00 40 12/04/18 08:00 98.2 81 28 142/54 (83) 98 12/04/18 08:00 Mechanical Ventilator 12/04/18 07:53 72 12/04/18 06:30 78 24 40 12/04/18 05:11 89 27 40 12/04/18 04:00 40 12/04/18 04:00 75 12/04/18 04:00 Mechanical Ventilator 12/04/18 04:00 98.4 8 30 146/86 (106) 98 12/04/18 03:30 75 25 40 12/04/18 03:27 75 12/04/18 01:29 83 25 40 12/04/18 00:00 40 12/04/18 00:00 Mechanical Ventilator 12/04/18 00:00 98.0 79 28 154/89 (110) 100 12/03/18 23:30 77 24 40 12/03/18 23:26 79 12/03/18 21:25 74 26 40 12/03/18 20:00 Mechanical Ventilator 12/03/18 20:00 40 12/03/18 20:00 98.5 84 25 135/58 (83) 100 12/03/18 19:34 84 12/03/18 19:30 78 24 40 12/03/18 17:17 80 22 40 12/03/18 16:00 86 12/03/18 16:00 40 12/03/18 16:00 100.0 87 25 148/72 (97) 100 12/03/18 16:00 Mechanical Ventilator Intake and Output 12/04/18 12/05/18 19:00 07:00 Intake Total 1180 ml 1010 ml Output Total 200 ml 200 ml Balance 980 ml 810 ml Intake Free Water 150 ml IV Total 110 ml Tube Feeding 660 ml 660 ml Blood Product 370 ml 240 ml Output Urine Total 200 ml 200 ml Labs Test 12/03/18 04:55 12/04/18 03:05 12/04/18 06:00 12/05/18 03:00 White Blood Count 16.2 K/UL (4.8-10.8) 12.9 K/UL (4.8-10.8) 17.1 K/UL (4.8-10.8) Red Blood Count 2.98 M/UL (4.70-6.10) 2.63 M/UL (4.70-6.10) 3.81 M/UL (4.70-6.10) Hemoglobin 8.0 G/DL (14.2-18.0) 7.1 G/DL (14.2-18.0) 10.6 G/DL (14.2-18.0) Hematocrit 25.2 % (42.0-52.0) 22.0 % (42.0-52.0) 32.8 % (42.0-52.0) Mean Corpuscular Volume 85 FL (80-99) 84 FL (80-99) 86 FL (80-99) Mean Corpuscular Hemoglobin 26.8 PG (27.0-31.0) 27.0 PG (27.0-31.0) 27.8 PG (27.0-31.0) Mean Corpuscular Hemoglobin Concent 31.6 G/DL (32.0-36.0) 32.2 G/DL (32.0-36.0) 32.3 G/DL (32.0-36.0) Red Cell Distribution Width 16.2 % (11.6-14.8) 15.7 % (11.6-14.8) 15.1 % (11.6-14.8) Platelet Count 280 K/UL (150-450) 264 K/UL (150-450) 314 K/UL (150-450) Mean Platelet Volume 7.1 FL (6.5-10.1) 6.9 FL (6.5-10.1) 6.3 FL (6.5-10.1) Neutrophils (%) (Auto) 69.3 % (45.0-75.0) % (45.0-75.0) 74.3 % (45.0-75.0) Lymphocytes (%) (Auto) 12.9 % (20.0-45.0) % (20.0-45.0) 11.1 % (20.0-45.0) Monocytes (%) (Auto) 15.5 % (1.0-10.0) % (1.0-10.0) 12.7 % (1.0-10.0) Eosinophils (%) (Auto) 1.3 % (0.0-3.0) % (0.0-3.0) 1.2 % (0.0-3.0) Basophils (%) (Auto) 1.0 % (0.0-2.0) % (0.0-2.0) 0.8 % (0.0-2.0) Sodium Level 141 MMOL/L (136-145) 146 MMOL/L (136-145) Potassium Level 4.4 MMOL/L (3.5-5.1) 4.5 MMOL/L (3.5-5.1) Chloride Level 105 MMOL/L (98-107) 108 MMOL/L (98-107) Carbon Dioxide Level 34 MMOL/L (21-32) 34 MMOL/L (21-32) Anion Gap 2 mmol/L (5-15) 4 mmol/L (5-15) Blood Urea Nitrogen 25 mg/dL (7-18) 25 mg/dL (7-18) Creatinine 0.9 MG/DL (0.55-1.30) 0.9 MG/DL (0.55-1.30) Estimat Glomerular Filtration Rate mL/min (>60) mL/min (>60) Glucose Level 105 MG/DL (74-106) 102 MG/DL (74-106) Calcium Level 8.2 MG/DL (8.5-10.1) 8.2 MG/DL (8.5-10.1) Differential Total Cells Counted 100 Neutrophils % (Manual) 74 % (45-75) Lymphocytes % (Manual) 12 % (20-45) Monocytes % (Manual) 12 % (1-10) Eosinophils % (Manual) 1 % (0-3) Basophils % (Manual) 1 % (0-2) Band Neutrophils 0 % (0-8) Platelet Estimate Adequate Platelet Morphology Normal Anisocytosis 1+ Stool Occult Blood Negative (NEGATIVE) Height (Feet): 5 Height (Inches): 5.00 Weight (Pounds): 169 Objective Vitals: reviewed Gen: no apparent distress Head: normocephalic EENT: normal ENT inspection Respiratory: other - intubated vent+ Cardiovascular: normal rate Gastrointestinal: gt - c/d/i Rectal: deferred Genitourinary: no CVA tenderness Skin: normal color +++ decub : ++ Beny Fields MD Dec 05, 2018 14:35
--- NOTE | 2018-12-05 15:26 | Infectious Diseases Prog Note ---
Assessment/Plan Assessment/Plan IMPRESSION: Sepsis, Pyuria/ UTI treated Pneumonia with MDR pseudomonas, Acinetobacter, Proteus & Klebsiella BPH, ventilator-dependent respiratory failure Leukocytosis improving Acute renal failure, improving Diabetes mellitus, anemia, hypoxemic respiratory failure, dementia. 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 Phimosis/ paraphimosis Urethral stricture Asystole, cardiac pause DNR RECOMMENDATION: Continue Cipro , Colistin inhaler & Ceftazidime Family refused pacemaker placement Poor prognosis Repeat CXR Subjective ROS Limited/Unobtainable: Yes Constitutional: Denies: fever Allergies: Coded Allergies: TERAZOSIN (Verified Allergy, Unknown, 10/27/17) Objective Vital Signs Last 24 Hour Vital Signs Date Time Temp Pulse Resp B/P (MAP) Pulse Ox O2 Delivery O2 Flow Rate FiO2 12/05/18 14:50 85 36 40 12/05/18 12:34 76 25 40 12/05/18 12:00 40 12/05/18 12:00 Mechanical Ventilator 12/05/18 12:00 97.8 98 28 130/53 (78) 96 12/05/18 11:42 82 12/05/18 11:10 87 30 40 12/05/18 09:32 86 29 100 Mechanical Ventilator 88 30 12/05/18 09:15 88 30 40 12/05/18 08:00 40 12/05/18 08:00 Mechanical Ventilator 12/05/18 08:00 97.9 89 30 159/99 (119) 97 12/05/18 07:44 75 12/05/18 06:45 86 27 40 12/05/18 05:16 84 25 40 12/05/18 04:00 Mechanical Ventilator 12/05/18 04:00 40 12/05/18 04:00 97.9 82 30 154/71 (98) 98 12/05/18 04:00 98 12/05/18 03:31 89 24 40 12/05/18 02:43 95 24 96 Mechanical Ventilator 40 12/05/18 01:32 102 24 40 12/05/18 01:31 98.2 81 30 159/83 (108) 98 12/05/18 00:00 Mechanical Ventilator 12/05/18 00:00 98.2 81 30 158/91 (113) 98 12/05/18 00:00 40 12/05/18 00:00 92 12/04/18 23:24 84 22 100 Mechanical Ventilator 30 12/04/18 23:09 76 23 97 Mechanical Ventilator 40 76 23 30 12/04/18 21:06 81 26 40 12/04/18 20:00 79 12/04/18 20:00 Mechanical Ventilator 12/04/18 20:00 40 12/04/18 20:00 98.4 81 28 140/79 (99) 99 12/04/18 19:10 85 27 40 12/04/18 16:43 100 28 40 12/04/18 16:00 40 12/04/18 16:00 Mechanical Ventilator 12/04/18 16:00 98.2 94 29 160/99 (119) 95 12/04/18 15:33 77 Height (Feet): 5 Height (Inches): 5.00 Weight (Pounds): 169 HEENT: status post trach Respiratory/Chest: decreased breath sounds, other - on ventilator Cardiovascular: normal rate, other - PICC line Abdomen: distended, other - GT feeding Genitourinary: other - Turner catheter, hematuria Extremities: other - generalized edema Neurologic/Psychiatric: aphasia, other - opens eyes Laboratory Tests Test 12/05/18 03:00 White Blood Count 17.1 K/UL (4.8-10.8) H Red Blood Count 3.81 M/UL (4.70-6.10) L Hemoglobin 10.6 G/DL (14.2-18.0) #L Hematocrit 32.8 % (42.0-52.0) #L Mean Corpuscular Volume 86 FL (80-99) Mean Corpuscular Hemoglobin 27.8 PG (27.0-31.0) Mean Corpuscular Hemoglobin Concent 32.3 G/DL (32.0-36.0) Red Cell Distribution Width 15.1 % (11.6-14.8) H Platelet Count 314 K/UL (150-450) Mean Platelet Volume 6.3 FL (6.5-10.1) L Neutrophils (%) (Auto) 74.3 % (45.0-75.0) Lymphocytes (%) (Auto) 11.1 % (20.0-45.0) L Monocytes (%) (Auto) 12.7 % (1.0-10.0) H Eosinophils (%) (Auto) 1.2 % (0.0-3.0) Basophils (%) (Auto) 0.8 % (0.0-2.0) Current Medications Medications (Trade) Dose Ordered Sig/Ruthie Route PRN Reason Start Time Stop Time Status Last Admin Dose Admin Acetaminophen (Tylenol) 650 mg Q6H PRN GT Mild Pain/Temp > 100.5 11/28/18 06:05 12/15/18 06:04 12/01/18 13:41 Atropine Sulfate (Atropine 0.4mg/ ml) 0.4 mg Q5M PRN IVP HR<30 for 30 seconds 11/28/18 06:09 12/28/18 06:08 Bacitracin (Bacitracin 15gm tube) 1 applic BID TOPIC 12/01/18 18:00 12/31/18 17:59 12/05/18 08:59 Bisacodyl (Dulcolax) 10 mg DAILYPRN PRN RECTAL Constipation 11/28/18 06:05 12/18/18 06:04 Ceftazidime 2 gm/ Dextrose 110 ml @ 220 mls/hr Q8H IV 12/01/18 18:00 12/08/18 17:59 12/05/18 10:00 Chlorhexidine Gluconate (Rachael-Hex 2%) 1 applic DAILY@2000 TOPIC 11/28/18 20:00 12/15/18 19:59 12/04/18 20:33 Ciprofloxacin (Cipro 500mg tab) 500 mg EVERY 12 HOURS GT 11/29/18 09:00 12/06/18 23:59 12/05/18 08:50 Colistimethate Sodium (Colistin *inhalation use only*) 75 mg Q12HR@ INH 11/29/18 22:00 12/06/18 23:59 12/05/18 09:22 Dextrose (Dextrose 50%) 25 ml Q30M PRN IV Hypoglycemia 11/28/18 06:15 12/15/18 09:38 Dextrose (Dextrose 50%) 50 ml Q30M PRN IV Hypoglycemia 11/28/18 06:15 12/15/18 05:44 Insulin Aspart (NovoLOG) BEFORE MEALS AND HS SUBQ 11/28/18 06:30 12/15/18 06:29 12/05/18 11:19 Lansoprazole (Prevacid) 30 mg BID GT 11/28/18 18:00 12/28/18 17:59 12/05/18 08:50 Lorazepam (Ativan 2mg/ml 1ml) 0.5 mg Q2H PRN IV For Anxiety 12/05/18 14:56 12/12/18 14:55 Olanzapine (ZyPREXA Zydis) 7.5 mg DAILY GT 11/28/18 09:00 12/15/18 08:59 12/05/18 08:50 Anam Cruz MD Dec 05, 2018 15:26
--- NOTE | 2018-12-05 15:53 | Pulmonology Progress Note ---
Assessment/Plan Assessment/Plan Pulmonary Progress Note Assessment/Plan Impression: Patient with Pneumonia - KPC/Acinetobacter/MDR pseudomonas, Proteus Ventilator dependant respiratory failure, stable Pulmonary Status Severe sepsis - improved Leucocytosis NSTEMI Anemiasp TFN Dysphagia s/p G tube Chronic wounds Dementia Organic Brain Syndrome Diabetes Chronic renal disease BPH Penile wound Hematuria - Urology following CHF H/o Hypertension Severe Protein Calorie Malnutrition Plan antibiotic regimen per ID monitor blood pressure HHN Q4 and monitor secretions and suction PRN on full vent support-AC- no wean transfuse PRN DNAR multiorgan disease with poor prognosis monitor oxygen needs- and adjust monitor labs DVT and PUD prophylaxis Gtube feeds as able; monitor residuals and reflux aspiration monitor residuals for change will need intermediate card tender care medications/laboratory data/nursing notes reviewed in detail note reviewed and edited care discussed with RN and RT Interval Events: care noted vitals stable poor LOC f ROS Limited/Unobtainable: Yes Condition: critical EKG Rhythm: Sinus Rhythm Residuals: minimal Tube Feeding Tolerated: yes Vital Signs Noted Labs Noted CXR: Impression: Evidence of slightly improved right pleural effusion. Otherwise little change Objective: WDWN NAD on vent and poorly responsive reduced breath sounds bilaterally with noted rhonchi [id number] without MRG NABS nontender no HSM; GT; non distended no CC mild edema nonfocal reduced LOC skin noted reviewed and edited Sputum: Organism 1 K.PNEUMONIAE CARBAPENEM RESIST GROWTH: 4+ only sens Colistin Organism 2 A.BAUMANII COMPLX - MDR GROWTH: 4+ Organism 3 PSEUDOMONAS AERUGINOSA GROWTH: 4+ Organism 4 PROTEUS MIRABILIS GROWTH: 4+ Subjective ROS Limited/Unobtainable: No Allergies: Coded Allergies: TERAZOSIN (Verified Allergy, Unknown, 10/27/17) Objective Last 24 Hour Vital Signs Date Time Temp Pulse Resp B/P (MAP) Pulse Ox O2 Delivery O2 Flow Rate FiO2 12/05/18 14:50 85 36 40 12/05/18 12:34 76 25 40 12/05/18 12:00 40 12/05/18 12:00 Mechanical Ventilator 12/05/18 12:00 97.8 98 28 130/53 (78) 96 12/05/18 11:42 82 12/05/18 11:10 87 30 40 12/05/18 09:32 86 29 100 Mechanical Ventilator 88 30 12/05/18 09:15 88 30 40 12/05/18 08:00 40 10/30/19 08:00 Mechanical Ventilator 12/05/18 08:00 97.9 89 30 159/99 (119) 97 12/05/18 07:44 75 12/05/18 06:45 86 27 40 12/05/18 05:16 84 25 40 12/05/18 04:00 Mechanical Ventilator 12/05/18 04:00 40 12/05/18 04:00 97.9 82 30 154/71 (98) 98 12/05/18 04:00 98 12/05/18 03:31 89 24 40 12/05/18 02:43 95 24 96 Mechanical Ventilator 40 12/05/18 01:32 102 24 40 12/05/18 01:31 98.2 81 30 159/83 (108) 98 12/05/18 00:00 Mechanical Ventilator 12/05/18 00:00 98.2 81 30 158/91 (113) 98 12/05/18 00:00 40 12/05/18 00:00 92 12/04/18 23:24 84 22 100 Mechanical Ventilator 30 12/04/18 23:09 76 23 97 Mechanical Ventilator 40 76 23 30 12/04/18 21:06 81 26 40 12/04/18 20:00 79 12/04/18 20:00 Mechanical Ventilator 12/04/18 20:00 40 12/04/18 20:00 98.4 81 28 140/79 (99) 99 12/04/18 19:10 85 27 40 12/04/18 16:43 100 28 40 12/04/18 16:00 40 12/04/18 16:00 Mechanical Ventilator 12/04/18 16:00 98.2 94 29 160/99 (119) 95 Intake and Output 12/04/18 12/05/18 19:00 07:00 Intake Total 1180 ml 1010 ml Output Total 200 ml 200 ml Balance 980 ml 810 ml Intake Free Water 150 ml IV Total 110 ml Tube Feeding 660 ml 660 ml Blood Product 370 ml 240 ml Output Urine Total 200 ml 200 ml Laboratory Tests 12/05/18 03:00: White Blood Count 17.1H, Red Blood Count 3.81L, Hemoglobin 10.6#L, Hematocrit 32.8#L, Mean Corpuscular Volume 86, Mean Corpuscular Hemoglobin 27.8, Mean Corpuscular Hemoglobin Concent 32.3, Red Cell Distribution Width 15.1H, Platelet Count 314, Mean Platelet Volume 6.3L, Neutrophils (%) (Auto) 74.3, Lymphocytes (%) (Auto) 11.1L, Monocytes (%) (Auto) 12.7H, Eosinophils (%) (Auto ) 1.2, Basophils (%) (Auto) 0.8 Current Medications Medications (Trade) Dose Ordered Sig/Ruthie Route PRN Reason Start Time Stop Time Status Last Admin Dose Admin Acetaminophen (Tylenol) 650 mg Q6H PRN GT Mild Pain/Temp > 100.5 11/28/18 06:05 12/15/18 06:04 12/01/18 13:41 Atropine Sulfate (Atropine 0.4mg/ ml) 0.4 mg Q5M PRN IVP HR<30 for 30 seconds 11/28/18 06:09 12/28/18 06:08 Bacitracin (Bacitracin 15gm tube) 1 applic BID TOPIC 12/01/18 18:00 12/31/18 17:59 12/05/18 08:59 Bisacodyl (Dulcolax) 10 mg DAILYPRN PRN RECTAL Constipation 11/28/18 06:05 12/18/18 06:04 Ceftazidime 2 gm/ Dextrose 110 ml @ 220 mls/hr Q8H IV 12/01/18 18:00 12/08/18 17:59 12/05/18 10:00 Chlorhexidine Gluconate (Rachael-Hex 2%) 1 applic DAILY@2000 TOPIC 11/28/18 20:00 12/15/18 19:59 12/04/18 20:33 Ciprofloxacin (Cipro 500mg tab) 500 mg EVERY 12 HOURS GT 11/29/18 09:00 12/06/18 23:59 12/05/18 08:50 Colistimethate Sodium (Colistin *inhalation use only*) 75 mg Q12HR@10, INH 11/29/18 22:00 12/06/18 23:59 12/05/18 09:22 Dextrose (Dextrose 50%) 25 ml Q30M PRN IV Hypoglycemia 11/28/18 06:15 12/15/18 09:38 Dextrose (Dextrose 50%) 50 ml Q30M PRN IV Hypoglycemia 11/28/18 06:15 12/15/18 05:44 Insulin Aspart (NovoLOG) BEFORE MEALS AND HS SUBQ 11/28/18 06:30 12/15/18 06:29 12/05/18 11:19 Lansoprazole (Prevacid) 30 mg BID GT 11/28/18 18:00 12/28/18 17:59 12/05/18 08:50 Lorazepam (Ativan 2mg/ml 1ml) 0.5 mg Q2H PRN IV For Anxiety 12/05/18 14:56 12/12/18 14:55 Olanzapine (ZyPREXA Zydis) 7.5 mg DAILY GT 11/28/18 09:00 12/15/18 08:59 12/05/18 08:50 Booker Baumann MD Dec 05, 2018 15:53
[2018-12-05] MEDS: Dyna-Hex 2% Top Sol 2oz TOPIC SCH (20:09)
--- NOTE | 2018-12-05 20:22 | Surgery Progress Note ---
Surgery Progress Note Subjective Additional Comments Leukocytosis. Responded well to transfusion. Hematuria improving as urine is now pinkish and not as gross blood. Continue with flushes. Electrolytes abnormal. Objective Last 24 Hour Vital Signs Date Time Temp Pulse Resp B/P (MAP) Pulse Ox O2 Delivery O2 Flow Rate FiO2 12/05/18 19:19 82 29 40 12/05/18 17:22 81 22 40 12/05/18 16:00 Mechanical Ventilator 12/05/18 16:00 40 12/05/18 16:00 98.1 86 28 131/76 (94) 97 12/05/18 15:51 86 12/05/18 14:50 85 36 40 12/05/18 12:34 76 25 40 12/05/18 12:00 40 12/05/18 12:00 Mechanical Ventilator 12/05/18 12:00 97.8 98 28 130/53 (78) 96 12/05/18 11:42 82 12/05/18 11:10 87 30 40 12/05/18 09:32 86 29 100 Mechanical Ventilator 88 30 12/05/18 09:15 88 30 40 12/05/18 08:00 40 12/05/18 08:00 Mechanical Ventilator 12/05/18 08:00 97.9 89 30 159/99 (119) 97 12/05/18 07:44 75 12/05/18 06:45 86 27 40 12/05/18 05:16 84 25 40 12/05/18 04:00 Mechanical Ventilator 12/05/18 04:00 40 12/05/18 04:00 97.9 82 30 154/71 (98) 98 12/05/18 04:00 98 12/05/18 03:31 89 24 40 12/05/18 02:43 95 24 96 Mechanical Ventilator 40 12/05/18 01:32 102 24 40 12/05/18 01:31 98.2 81 30 159/83 (108) 98 12/05/18 00:00 Mechanical Ventilator 12/05/18 00:00 98.2 81 30 158/91 (113) 98 12/05/18 00:00 40 12/05/18 00:00 92 12/04/18 23:24 84 22 100 Mechanical Ventilator 30 12/04/18 23:09 76 23 97 Mechanical Ventilator 40 76 23 30 12/04/18 21:06 81 26 40 I&O Intake and Output 12/04/18 12/05/18 19:00 07:00 Intake Total 1180 ml 1010 ml Output Total 200 ml 200 ml Balance 980 ml 810 ml Intake Free Water 150 ml IV Total 110 ml Tube Feeding 660 ml 660 ml Blood Product 370 ml 240 ml Output Urine Total 200 ml 200 ml Dressing: saturated Wound: other Drains: other Cardiovascular: RSR Respiratory: decreased breath sounds Abdomen: soft, non-distended, decreased bowel sounds Extremities: no cyanosis, other Laboratory Tests Test 12/05/18 03:00 White Blood Count 17.1 K/UL (4.8-10.8) H Red Blood Count 3.81 M/UL (4.70-6.10) L Hemoglobin 10.6 G/DL (14.2-18.0) #L Hematocrit 32.8 % (42.0-52.0) #L Mean Corpuscular Volume 86 FL (80-99) Mean Corpuscular Hemoglobin 27.8 PG (27.0-31.0) Mean Corpuscular Hemoglobin Concent 32.3 G/DL (32.0-36.0) Red Cell Distribution Width 15.1 % (11.6-14.8) H Platelet Count 314 K/UL (150-450) Mean Platelet Volume 6.3 FL (6.5-10.1) L Neutrophils (%) (Auto) 74.3 % (45.0-75.0) Lymphocytes (%) (Auto) 11.1 % (20.0-45.0) L Monocytes (%) (Auto) 12.7 % (1.0-10.0) H Eosinophils (%) (Auto) 1.2 % (0.0-3.0) Basophils (%) (Auto) 0.8 % (0.0-2.0) Plan Problems: (1) Severe sepsis Assessment & Plan: leukocytosis, anemia, lactic acidosis, fevers IV Abx imaging noted and reviewed US with no stones or dilated ducts elevated lft's likely due to liver disease exam as below cont abx trend labs leave crabtree for a few weeks Overall prognosis very guarded Continue with current care thank you will follow with recs Findings: Exam is somewhat limited, due to gastrostomy tube and overlying bowel gas limiting visualization of the abdominal aorta Gallbladder is unremarkable, without stones, wall thickening, nor pericholecystic fluid. Sonographic Carl's sign is negative. Common bile duct measures 4 mm in diameter. No intrahepatic biliary ductal dilatation. Liver demonstrates normal echogenicity, no focal abnormality. It demonstrates slight surface nodularity. It is enlarged. There is a 1 cm cyst which appears adjacent to the gallbladder wall. This is probably a small exophytic hepatic cyst. Portal vein and hepatic veins are patent. Pancreas is unremarkable. Spleen is unremarkable. Left kidney measures 9.2 cm in length. Right kidney measures 10.2 cm length. Both kidneys demonstrate normal echogenicity. There is no hydronephrosis. Both kidneys demonstrate cysts. . Abdominal aorta is partially obscured by bowel gas, visualized portions are non-aneurysmal . Impression: Negative for gallstones or dilated bile ducts Hepatic surface nodularity, may indicate early cirrhotic changes Hepatomegaly Incidental finding bilateral renal cysts (2) Malnutrition Assessment & Plan: DAILY ESTIMATED NEEDS: Needs based on Critical care, sepsis 71.8 kg 22-30 kcals/kg 0242-6654 total kcals 1.2-2 g protein/kg 86- 144 g total protein 25-30 mL/kg 1795- 2154 total fluid mLs NUTRITION DIAGNOSIS: * Swallowing difficulty R/T respiratory status and dysphagia as evidenced by pt is vent dep, on TF. * Altered nutrition related lab values r/t sepsis, clinical status, h/o Diabetes as evidenced by critically elev WBC (47.2), low Hgb (6.6), elev BNP, low BP (96/41), BG 191, POC 179. CURRENT TF: Jevity 1.2 @ 70mL/hr x 20hr - NOW NPO ENTERAL NUTRITION RECOMMENDATIONS: Vital 1.2 @55mL/hr x24 hrs to provide 1320mL, 1584kcal, 99g pro, 1071mL free H2O * As medically appropriate to feed, rec TF change to VITAL 1.2 for critical care. * Start Vital 1,2, @25mL, advance as tolerated 10ml/hr q4-6 hrs to goal * HOB over 30 degrees/ water flush per MD --- Low Hgb (6.6), NPO per GI-> rec trophic feeds when appropriate if pt remains hypotensive. ADDITIONAL RECOMMENDATIONS: * Per SNF: HT 68 inches WT 158 lbs + Daily calibrated bed scale wts * Change TF to Vital 1.2, as medically able to feed * Monitor lytes (replete as needed) * F/up w/ WC eval . (3) Sacral decubitus ulcer Assessment & Plan: Pt presented on admission with contractures and multiple pressure injuries. Partially opened DTPI L buttocks. Base of wound moist - viable with surrounding dark and fluctuant borders.(L)1.2cm x (W)1cm. Small amt of sanguineous exudate noted. No odor noted. Hyperpigmentation noted to sacrum. Historical scar from previous wound noted to L trochanter. Penile head retracted within foreskin and small wound noted within folds of foreskin. Wound is moist and viable. No odor or exudate noted. No erythema noted periwound. Resolving pressure injury plantar R heel. Base of wound 50% epithelialized, 50% moist and viable.(L)5.5cm x (W)6.5cm. Resolving pressure injury lateral L heel. Base of wound is moist and viable with surrounding hyperpigmentation.(L)0.6cm x (W)0.5cm. Scattered loose, dry brown skin noted to medial and posterior L heel. Tx.Plan: Apply Moisture Barrier Paste to L buttocks and sacrum. Cover with Optifoam drsg. Change every 3 days and prn. Cleanse head of penis with soap and water. Apply Bacitracin oint Twice Daily. Apply Betadine to R and L heel wounds. Cover each heel with Optifoam drsg. Daily and prn. APM/ABDELRHAMAN Mattress overlay. Reposition at least every 2hours and prn. Off-load heels with pillow. Don Carvalho Dec 05, 2018 20:22
--- NOTE | 2018-12-05 21:00 | General Progress Note ---
Assessment/Plan Problem List: (1) Hypernatremia ICD Codes: E87.0 - Hyperosmolality and hypernatremia SNOMED: 80990130 (2) Rhabdomyolysis ICD Codes: M62.82 - Rhabdomyolysis SNOMED: 305185477 (3) Sacral decubitus ulcer ICD Codes: L89.159 - Pressure ulcer of sacral region, unspecified stage SNOMED: 227168106 (4) Severe sepsis ICD Codes: A41.9 - Sepsis, unspecified organism; R65.20 - Severe sepsis without septic shock SNOMED: 01788376 (5) Septic shock ICD Codes: A41.9 - Sepsis, unspecified organism; R65.21 - Severe sepsis with septic shock SNOMED: 78207449 (6) DM (7) Anemia ICD Codes: D64.9 - Anemia, unspecified SNOMED: 830386004 (8) Prostate enlargement ICD Codes: N40.0 - Benign prostatic hyperplasia without lower urinary tract symptoms SNOMED: 206459991 (9) Chronic renal disease ICD Codes: N18.9 - Chronic kidney disease, unspecified SNOMED: 848920979 (10) Ventilator dependence ICD Codes: Z99.11 - Dependence on respirator [ventilator] status SNOMED: 176265705 (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 - Gastrostomy status SNOMED: 640013451, 284767305 (12) Malnutrition ICD Codes: E46 - Unspecified protein-calorie malnutrition SNOMED: 26321801 Status: stable, progressing, unchanged Assessment/Plan: severe anemia improved unstable for dc s/p anasarca junctional rhythem edema laurie afebrile chf Subjective ROS Limited/Unobtainable: Yes Allergies: Coded Allergies: TERAZOSIN (Verified Allergy, Unknown, 10/27/17) Objective Last 24 Hour Vital Signs Date Time Temp Pulse Resp B/P (MAP) Pulse Ox O2 Delivery O2 Flow Rate FiO2 12/05/18 20:00 97.7 88 26 135/76 (95) 99 12/05/18 20:00 Mechanical Ventilator 12/05/18 20:00 40 12/05/18 19:19 82 29 40 12/05/18 17:22 81 22 40 12/05/18 16:00 Mechanical Ventilator 12/05/18 16:00 40 12/05/18 16:00 98.1 86 28 131/76 (94) 97 12/05/18 15:51 86 12/05/18 14:50 85 36 40 12/05/18 12:34 76 25 40 12/05/18 12:00 40 12/05/18 12:00 Mechanical Ventilator 12/05/18 12:00 97.8 98 28 130/53 (78) 96 12/05/18 11:42 82 12/05/18 11:10 87 30 40 12/05/18 09:32 86 29 100 Mechanical Ventilator 88 30 12/05/18 09:15 88 30 40 12/05/18 08:00 40 12/05/18 08:00 Mechanical Ventilator 12/05/18 08:00 97.9 89 30 159/99 (119) 97 12/05/18 07:44 75 12/05/18 06:45 86 27 40 12/05/18 05:16 84 25 40 12/05/18 04:00 Mechanical Ventilator 12/05/18 04:00 40 12/05/18 04:00 97.9 82 30 154/71 (98) 98 12/05/18 04:00 98 12/05/18 03:31 89 24 40 12/05/18 02:43 95 24 96 Mechanical Ventilator 40 12/05/18 01:32 102 24 40 12/05/18 01:31 98.2 81 30 159/83 (108) 98 12/05/18 00:00 Mechanical Ventilator 12/05/18 00:00 98.2 81 30 158/91 (113) 98 12/05/18 00:00 40 12/05/18 00:00 92 12/04/18 23:24 84 22 100 Mechanical Ventilator 30 12/04/18 23:09 76 23 97 Mechanical Ventilator 40 76 23 30 12/04/18 21:06 81 26 40 Intake and Output 12/04/18 12/05/18 19:00 07:00 Intake Total 1180 ml 1010 ml Output Total 200 ml 200 ml Balance 980 ml 810 ml Intake Free Water 150 ml IV Total 110 ml Tube Feeding 660 ml 660 ml Blood Product 370 ml 240 ml Output Urine Total 200 ml 200 ml Laboratory Tests 12/05/18 03:00: White Blood Count 17.1H, Red Blood Count 3.81L, Hemoglobin 10.6#L, Hematocrit 32.8#L, Mean Corpuscular Volume 86, Mean Corpuscular Hemoglobin 27.8, Mean Corpuscular Hemoglobin Concent 32.3, Red Cell Distribution Width 15.1H, Platelet Count 314, Mean Platelet Volume 6.3L, Neutrophils (%) (Auto) 74.3, Lymphocytes (%) (Auto) 11.1L, Monocytes (%) (Auto) 12.7H, Eosinophils (%) (Auto ) 1.2, Basophils (%) (Auto) 0.8 Height (Feet): 5 Height (Inches): 5.00 Weight (Pounds): 169 Cardiovascular: normal rate Respiratory/Chest: lungs clear Abdomen: soft Trish Matias MD Dec 05, 2018 21:00
[2018-12-06] VITALS: BP 145/81
[2018-12-06] MEDS: CefTAZidime 2 GM in D5W 110 ML IV SCH ×3 (01:38→17:06)
[2018-12-06 04:00] VITALS: BP 124/68
[2018-12-06] MEDS: NovoLOG Insulin Flexpen SUBQ SCH ×4 (05:33→21:00)
--- NOTE | 2018-12-06 05:56 | Hematology/Onc Progress Note ---
Assessment/Plan Assessment/Plan ASSESSMENT AND RECOMMENDATIONS # Leukocytosis. Likely related to underlying infection with sepsis and elevated severely on admission --> Imaging has been reviewed. Shows cxr left lung inil/v edema --> Blood cs and urine cx are reviewed --> Has been started on abx, empiric tx (zosyn)--> colistin/cipro/ceftaz --> PERIPHERAL SMEAR SHOWS ATYPICAL LYMPHOCYTES--> has stabilized, improved --> Flow cytometry ordered with pathologist -> no atypical findings are noted --> wbc 52k-->47k-->29k->16-->12-->14->12-->12-->21-->14->11->15->9-->11.4->24k- >28k-->16k-->13-->17k --> picc was repositioned --> is off of any steriods, daily md review --> for urology evaluation with hematuria, improved # Anemia of chronic disease, due to underlying chronic medical issues, multifactorial. --> Anemia w/u has been ordered --> with hyperferritinemia --> No evidence of hemolysis noted, peripheral smear has been reviewed --> Hgb goal >7. Transfuse as needed --> hgb trend 7.5-->6.6->9.1-->9.2-->8.9-->9.9->8.3-->8.5-->9.3-->8.2->8.4-->7.1 -->10.6 --> 2 units transfuse on 11/15, 2 more 12/04 --> will need to follow as outpatient and may need chelation therapy --> GI workup with egd showed gastritis --> hematuria eval as per UROL # Failure to thrive (FTT) - decreased bmi and low protein --> cea 4.3 --> will obtain q3 day caloric counts --> mirtazapine as appetite stimulant --> GI consult on a prn basis, as needed for endosc # Asystole with pauses may need pm per family --> as per cards recs # Sepsis, which has improved --> abx as per id # dysphagia s/p PEG # Malnutrition. 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 Greatly appreciate consultation. Subjective HEENT: Denies: no symptoms, eye pain, blurred vision, tearing, double vision, ear pain, ear discharge, nose pain, nose congestion, throat pain, throat swelling, mouth pain, mouth swelling, other Respiratory: Denies: no symptoms, cough, shortness of breath, SOB with excertion, SOB at rest, sputum, wheezing, other Gastrointestinal/Abdominal: Denies: no symptoms, abdomen distended, abdominal pain, black stools, tarry stools, blood in stool, constipated, diarrhea, difficulty swallowing, nausea, poor appetite, poor fluid intake, rectal bleeding , vomiting, other Genitourinary: Denies: no symptoms, burning, discharge, frequency, flank pain, hematuria, incontinence, pain, urgency, other Neurologic/Psychiatric: Denies: no symptoms, anxiety, depressed, emotional problems, headache, numbness, paresthesia, pre-existing deficit, seizure, tingling, tremors, weakness, other Endocrine: Denies: no symptoms, excessive sweating, flushing, intolerance to cold, intolerance to heat, increased hunger, increased thirst, increased urine, unexplained weight gain, unexplained weight loss, other Allergies: Coded Allergies: TERAZOSIN (Verified Allergy, Unknown, 10/27/17) Subjective 11/16: in the icu, is off pressors, doing better, no bleeding 11/18: no bleeding, remains on doxy and zosyn, no bleeding reported 11/19: out of the icu, on vent/trach, no major changes, dw rn 11/20: no bleeding noted, no night sweats, meds reviewed, no f/c 11/21: on vent, obtunded, with gt ongong, with picc, no bleeding .17: stricture advanced through with uro, with crabtree, labs noted 11/23: no events to report, no bleeding, labs reviewed, in icu 11/24: remains in the icu, with asystole, pending discussion with fam re pM 11/25: continues to have pauses, no bleeding, seen by cards, no events 11/26: no ets, no bleeding noted, no night sweats, no f/c 11/27: hgb 8.2, no bleeding or chills, no major changes on trach/vent, jimenez RN 11/28: agitated today, on vent/trach, jimenez rn, potential dc to tirso turner 11/29: obtunded, is out of the unit, labs noted, wbc 24k 11/30: gt feeds on hold, no bleeding reported, no night sweats 12/01: is on abx, no bleeding, no f/c, no night sweats noted 12/04: no events to report, hgb 7.1, nor chills noted, to get 2 unit prbc 12/05: for blood transfusion which was completed, but wbc higher, with hematruia , is dnr 12/06: no events, no bleeding, hematuria is improved, labs pending, on vent/ trach Objective Objective Current Medications Medications (Trade) Dose Ordered Sig/Ruthie Route PRN Reason Start Time Stop Time Status Last Admin Dose Admin Acetaminophen (Tylenol) 650 mg Q6H PRN GT Mild Pain/Temp > 100.5 11/28/18 06:05 12/15/18 06:04 12/01/18 13:41 Atropine Sulfate (Atropine 0.4mg/ ml) 0.4 mg Q5M PRN IVP HR<30 for 30 seconds 11/28/18 06:09 12/28/18 06:08 Bacitracin (Bacitracin 15gm tube) 1 applic BID TOPIC 12/01/18 18:00 12/31/18 17:59 12/05/18 17:56 Bisacodyl (Dulcolax) 10 mg DAILYPRN PRN RECTAL Constipation 11/28/18 06:05 12/18/18 06:04 Ceftazidime 2 gm/ Dextrose 110 ml @ 220 mls/hr Q8H IV 12/01/18 18:00 12/08/18 17:59 12/06/18 01:38 Chlorhexidine Gluconate (Rachael-Hex 2%) 1 applic DAILY@1999 TOPIC 11/28/18 20:00 12/15/18 19:59 12/05/18 20:09 Ciprofloxacin (Cipro 500mg tab) 500 mg EVERY 12 HOURS GT 11/29/18 09:00 12/06/18 23:59 12/05/18 20:09 Colistimethate Sodium (Colistin *inhalation use only*) 75 mg Q12HR@10,22 INH 11/29/18 22:00 12/06/18 23:59 12/05/18 21:58 Dextrose (Dextrose 50%) 25 ml Q30M PRN IV Hypoglycemia 11/28/18 06:15 12/15/18 09:38 Dextrose (Dextrose 50%) 50 ml Q30M PRN IV Hypoglycemia 11/28/18 06:15 12/15/18 05:44 Insulin Aspart (NovoLOG) BEFORE MEALS AND HS SUBQ 11/28/18 06:30 12/15/18 06:29 12/06/18 05:33 Lansoprazole (Prevacid) 30 mg BID GT 11/28/18 18:00 12/28/18 17:59 12/05/18 17:56 Lorazepam (Ativan 2mg/ml 1ml) 0.5 mg Q2H PRN IV For Anxiety 12/05/18 14:56 12/12/18 14:55 Olanzapine (ZyPREXA Zydis) 7.5 mg DAILY GT 11/28/18 09:00 12/15/18 08:59 12/05/18 08:50 Last 24 Hour Vital Signs Date Time Temp Pulse Resp B/P (MAP) Pulse Ox O2 Delivery O2 Flow Rate FiO2 12/06/18 05:27 88 21 40 12/06/18 04:00 97.1 77 26 124/68 (86) 99 12/06/18 04:00 Mechanical Ventilator 12/06/18 04:00 40 12/06/18 03:40 78 12/06/18 03:10 78 23 40 12/06/18 00:48 88 22 40 12/06/18 00:00 Mechanical Ventilator 12/06/18 00:00 40 12/06/18 00:00 97.7 86 26 145/81 (102) 99 12/05/18 23:26 80 12/05/18 22:30 86 24 100 Mechanical Ventilator 40 89 33 12/05/18 21:14 85 23 40 12/05/18 20:00 97.7 88 26 135/76 (95) 99 12/05/18 20:00 Mechanical Ventilator 12/05/18 20:00 40 12/05/18 19:30 79 12/05/18 19:19 82 29 40 12/05/18 17:22 81 22 40 12/05/18 16:00 Mechanical Ventilator 12/05/18 16:00 40 12/05/18 16:00 98.1 86 28 131/76 (94) 97 12/05/18 15:51 86 12/05/18 14:50 85 36 40 12/05/18 12:34 76 25 40 12/05/18 12:00 40 12/05/18 12:00 Mechanical Ventilator 12/05/18 12:00 97.8 98 28 130/53 (78) 96 12/05/18 11:42 82 12/05/18 11:10 87 30 40 12/05/18 09:32 86 29 100 Mechanical Ventilator 88 30 12/05/18 09:15 88 30 40 12/05/18 08:00 40 12/05/18 08:00 Mechanical Ventilator 12/05/18 08:00 97.9 89 30 159/99 (119) 97 12/05/18 07:44 75 12/05/18 06:45 86 27 40 12/05/18 05:16 84 25 40 12/05/18 04:00 Mechanical Ventilator 12/05/18 04:00 40 12/05/18 04:00 97.9 82 30 154/71 (98) 98 12/05/18 04:00 98 12/05/18 03:31 89 24 40 12/05/18 02:43 95 24 96 Mechanical Ventilator 40 12/05/18 01:32 102 24 40 12/05/18 01:31 98.2 81 30 159/83 (108) 98 12/05/18 00:00 Mechanical Ventilator 12/05/18 00:00 98.2 81 30 158/91 (113) 98 12/05/18 00:00 40 12/05/18 00:00 92 12/04/18 23:24 84 22 100 Mechanical Ventilator 30 12/04/18 23:09 76 23 97 Mechanical Ventilator 40 76 23 30 12/04/18 21:06 81 26 40 12/04/18 20:00 79 12/04/18 20:00 Mechanical Ventilator 12/04/18 20:00 40 12/04/18 20:00 98.4 81 28 140/79 (99) 99 12/04/18 19:10 85 27 40 12/04/18 16:43 100 28 40 12/04/18 16:00 40 12/04/18 16:00 Mechanical Ventilator 12/04/18 16:00 98.2 94 29 160/99 (119) 95 12/04/18 15:33 77 12/04/18 14:48 81 22 40 12/04/18 12:35 84 22 40 12/04/18 12:00 Mechanical Ventilator 12/04/18 12:00 40 12/04/18 12:00 97.9 73 30 119/40 (66) 97 12/04/18 11:36 82 12/04/18 10:30 63 24 40 12/04/18 10:01 78 26 99 Mechanical Ventilator 40 63 26 30 12/04/18 08:45 80 22 40 12/04/18 08:00 40 12/04/18 08:00 98.2 81 28 142/54 (83) 98 12/04/18 08:00 Mechanical Ventilator 12/04/18 07:53 72 12/04/18 06:30 78 24 40 Intake and Output 12/05/18 12/06/18 19:00 07:00 Intake Total 1030 ml 820 ml Output Total 200 ml Balance 830 ml 820 ml Intake Free Water 200 ml 130 ml IV Total 110 ml 110 ml Tube Feeding 660 ml 550 ml Other 60 ml 30 ml Output Urine Total 200 ml # Bowel Movements 1 Labs Test 12/04/18 03:05 12/04/18 06:00 12/05/18 03:00 White Blood Count 12.9 K/UL (4.8-10.8) 17.1 K/UL (4.8-10.8) Red Blood Count 2.63 M/UL (4.70-6.10) 3.81 M/UL (4.70-6.10) Hemoglobin 7.1 G/DL (14.2-18.0) 10.6 G/DL (14.2-18.0) Hematocrit 22.0 % (42.0-52.0) 32.8 % (42.0-52.0) Mean Corpuscular Volume 84 FL (80-99) 86 FL (80-99) Mean Corpuscular Hemoglobin 27.0 PG (27.0-31.0) 27.8 PG (27.0-31.0) Mean Corpuscular Hemoglobin Concent 32.2 G/DL (32.0-36.0) 32.3 G/DL (32.0-36.0) Red Cell Distribution Width 15.7 % (11.6-14.8) 15.1 % (11.6-14.8) Platelet Count 264 K/UL (150-450) 314 K/UL (150-450) Mean Platelet Volume 6.9 FL (6.5-10.1) 6.3 FL (6.5-10.1) Neutrophils (%) (Auto) % (45.0-75.0) 74.3 % (45.0-75.0) Lymphocytes (%) (Auto) % (20.0-45.0) 11.1 % (20.0-45.0) Monocytes (%) (Auto) % (1.0-10.0) 12.7 % (1.0-10.0) Eosinophils (%) (Auto) % (0.0-3.0) 1.2 % (0.0-3.0) Basophils (%) (Auto) % (0.0-2.0) 0.8 % (0.0-2.0) Differential Total Cells Counted 100 Neutrophils % (Manual) 74 % (45-75) Lymphocytes % (Manual) 12 % (20-45) Monocytes % (Manual) 12 % (1-10) Eosinophils % (Manual) 1 % (0-3) Basophils % (Manual) 1 % (0-2) Band Neutrophils 0 % (0-8) Platelet Estimate Adequate Platelet Morphology Normal Anisocytosis 1+ Sodium Level 146 MMOL/L (136-145) Potassium Level 4.5 MMOL/L (3.5-5.1) Chloride Level 108 MMOL/L (98-107) Carbon Dioxide Level 34 MMOL/L (21-32) Anion Gap 4 mmol/L (5-15) Blood Urea Nitrogen 25 mg/dL (7-18) Creatinine 0.9 MG/DL (0.55-1.30) Estimat Glomerular Filtration Rate mL/min (>60) Glucose Level 102 MG/DL (74-106) Calcium Level 8.2 MG/DL (8.5-10.1) Stool Occult Blood Negative (NEGATIVE) Height (Feet): 5 Height (Inches): 5.00 Weight (Pounds): 169 Objective Vitals: reviewed Gen: no apparent distress Head: normocephalic EENT: normal ENT inspection Respiratory: other - intubated vent+ Cardiovascular: normal rate Gastrointestinal: gt - c/d/i Rectal: deferred Genitourinary: no CVA tenderness Skin: normal color +++ decub : ++ Beny Fields MD Dec 06, 2018 05:56
[2018-12-06 08:00] VITALS: BP 145/81
[2018-12-06] MEDS: Ciprofloxacin 500mg tab GT SCH ×2 (08:21→21:47)
[2018-12-06] MEDS: ZyPREXA Zydis 5mg tab GT SCH (08:22)
[2018-12-06] MEDS: Bacitracin Oint 15gm Tube TOPIC SCH ×2 (08:28→17:11)
[2018-12-06] MEDS: Colistin for inhalation INH SCH ×2 (08:44→22:00)
--- NOTE | 2018-12-06 10:05 | Infectious Diseases Prog Note ---
Assessment/Plan Assessment/Plan IMPRESSION: Sepsis, Pyuria/ UTI treated Pneumonia with MDR pseudomonas, Acinetobacter, Proteus & Klebsiella BPH, ventilator-dependent respiratory failure Leukocytosis improving Acute renal failure, improving Diabetes mellitus, anemia, hypoxemic respiratory failure, dementia. 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 Phimosis/ paraphimosis Urethral stricture Asystole, cardiac pause DNR RECOMMENDATION: Continue Cipro , Colistin inhaler until expiration time today Continue Ceftazidime Family refused pacemaker placement Poor prognosis f/u CBC & CXR Subjective ROS Limited/Unobtainable: Yes Constitutional: Denies: fever Gastrointestinal/Abdominal: Reports: diarrhea, other - one time last night Allergies: Coded Allergies: TERAZOSIN (Verified Allergy, Unknown, 10/27/17) Objective Vital Signs Last 24 Hour Vital Signs Date Time Temp Pulse Resp B/P (MAP) Pulse Ox O2 Delivery O2 Flow Rate FiO2 12/06/18 08:45 88 24 99 Mechanical Ventilator 40 88 22 40 12/06/18 08:00 98.8 88 26 145/81 (102) 95 12/06/18 07:16 65 22 40 12/06/18 05:27 88 21 40 12/06/18 04:00 97.1 77 26 124/68 (86) 99 12/06/18 04:00 Mechanical Ventilator 12/06/18 04:00 40 12/06/18 03:40 78 12/06/18 03:10 78 23 40 12/06/18 00:48 88 22 40 12/06/18 00:00 Mechanical Ventilator 12/06/18 00:00 40 12/06/18 00:00 97.7 86 26 145/81 (102) 99 12/05/18 23:26 80 12/05/18 22:30 86 24 100 Mechanical Ventilator 40 89 33 12/05/18 21:14 85 23 40 12/05/18 20:00 97.7 88 26 135/76 (95) 99 12/05/18 20:00 Mechanical Ventilator 12/05/18 20:00 40 12/05/18 19:30 79 12/05/18 19:19 82 29 40 12/05/18 17:22 81 22 40 12/05/18 16:00 Mechanical Ventilator 12/05/18 16:00 40 12/05/18 16:00 98.1 86 28 131/76 (94) 97 12/05/18 15:51 86 12/05/18 14:50 85 36 40 12/05/18 12:34 76 25 40 12/05/18 12:00 40 12/05/18 12:00 Mechanical Ventilator 12/05/18 12:00 97.8 98 28 130/53 (78) 96 12/05/18 11:42 82 12/05/18 11:10 87 30 40 Height (Feet): 5 Height (Inches): 5.00 Weight (Pounds): 169 HEENT: status post trach Respiratory/Chest: decreased breath sounds, other - on ventilator Cardiovascular: normal rate, other - PICC line Abdomen: distended, other - GT feeding Genitourinary: other - Turner catheter, hematuria Extremities: other - Generalized edema Skin: ulcers Neurologic/Psychiatric: aphasia Current Medications Medications (Trade) Dose Ordered Sig/Ruthie Route PRN Reason Start Time Stop Time Status Last Admin Dose Admin Acetaminophen (Tylenol) 650 mg Q6H PRN GT Mild Pain/Temp > 100.5 11/28/18 06:05 12/15/18 06:04 12/01/18 13:41 Atropine Sulfate (Atropine 0.4mg/ ml) 0.4 mg Q5M PRN IVP HR<30 for 30 seconds 11/28/18 06:09 12/28/18 06:08 Bacitracin (Bacitracin 15gm tube) 1 applic BID TOPIC 12/01/18 18:00 12/31/18 17:59 12/06/18 08:28 Bisacodyl (Dulcolax) 10 mg DAILYPRN PRN RECTAL Constipation 11/28/18 06:05 12/18/18 06:04 Ceftazidime 2 gm/ Dextrose 110 ml @ 220 mls/hr Q8H IV 12/01/18 18:00 12/08/18 17:59 12/06/18 09:58 Chlorhexidine Gluconate (Rachael-Hex 2%) 1 applic DAILY@1999 TOPIC 11/28/18 20:00 12/15/18 19:59 12/05/18 20:09 Ciprofloxacin (Cipro 500mg tab) 500 mg EVERY 12 HOURS GT 11/29/18 09:00 12/06/18 23:59 12/06/18 08:21 Colistimethate Sodium (Colistin *inhalation use only*) 75 mg Q12HR@10,22 INH 11/29/18 22:00 12/06/18 23:59 12/06/18 08:44 Dextrose (Dextrose 50%) 25 ml Q30M PRN IV Hypoglycemia 11/28/18 06:15 12/15/18 09:38 Dextrose (Dextrose 50%) 50 ml Q30M PRN IV Hypoglycemia 11/28/18 06:15 12/15/18 05:44 Insulin Aspart (NovoLOG) BEFORE MEALS AND HS SUBQ 11/28/18 06:30 12/15/18 06:29 12/06/18 05:33 Lansoprazole (Prevacid) 30 mg BID GT 11/28/18 18:00 12/28/18 17:59 12/06/18 08:22 Lorazepam (Ativan 2mg/ml 1ml) 0.5 mg Q2H PRN IV For Anxiety 12/05/18 14:56 12/12/18 14:55 Olanzapine (ZyPREXA Zydis) 7.5 mg DAILY GT 11/28/18 09:00 12/15/18 08:59 12/06/18 08:22 Anam Cruz MD Dec 06, 2018 10:05
--- NOTE | 2018-12-06 10:36 | Cardiac Electrophysiology PN ---
Assessment/Plan Assessment/Plan 1. S/P Septic shock with WBC 50,000 and lactic acid of 6. On IV antibiotic and IV fluid . WBC Still >17 K 2. S/P multiple episodes of asystole with pauses of more than 10 seconds off any MCGEE or AVN blockers. DW Son Mr. Faraz Erickson on 11/23/18 at [phone]. Family refused the pacer and DNR. On prn Atropine. Echo Nl EF. 3. Congestive heart failure with BNP of more than 17,000. BNP 3000 range now 4. Troponin elevation, likely due to renal failure and anemia and septic shock. The levels are flat. EKG does not show any ST elevation. 5. S/P Acute renal failure. Resolved BUN 15 and Cr now 0.8 6. Hypernatremia. Resolved. On D5W per Dr Fernandes 7. Ventilator-dependent respiratory failure, status post tracheostomy. 8. Dysphagia, status post PEG placement. 9. Profound anemia, hemoglobin of 6.5, rule out GI bleed. S/P blood transfusion and EGD . 10. Active hematuria, Irrigation on going by MARTI CHOWDARY RN Subjective Subjective Still has hematuria . S/P transfusion . In SR overnight Objective Last 24 Hour Vital Signs Date Time Temp Pulse Resp B/P (MAP) Pulse Ox O2 Delivery O2 Flow Rate FiO2 12/06/18 08:45 88 24 99 Mechanical Ventilator 40 88 22 40 12/06/18 08:00 98.8 88 26 145/81 (102) 95 12/06/18 07:16 65 22 40 12/06/18 05:27 88 21 40 12/06/18 04:00 97.1 77 26 124/68 (86) 99 12/06/18 04:00 Mechanical Ventilator 12/06/18 04:00 40 12/06/18 03:40 78 12/06/18 03:10 78 23 40 12/06/18 00:48 88 22 40 12/06/18 00:00 Mechanical Ventilator 12/06/18 00:00 40 12/06/18 00:00 97.7 86 26 145/81 (102) 99 12/05/18 23:26 80 12/05/18 22:30 86 24 100 Mechanical Ventilator 40 89 33 12/05/18 21:14 85 23 40 12/05/18 20:00 97.7 88 26 135/76 (95) 99 12/05/18 20:00 Mechanical Ventilator 12/05/18 20:00 40 12/05/18 19:30 79 12/05/18 19:19 82 29 40 12/05/18 17:22 81 22 40 12/05/18 16:00 Mechanical Ventilator 12/05/18 16:00 40 12/05/18 16:00 98.1 86 28 131/76 (94) 97 12/05/18 15:51 86 12/05/18 14:50 85 36 40 12/05/18 12:34 76 25 40 12/05/18 12:00 40 12/05/18 12:00 Mechanical Ventilator 12/05/18 12:00 97.8 98 28 130/53 (78) 96 12/05/18 11:42 82 12/05/18 11:10 87 30 40 Intake and Output 12/05/18 12/06/18 18:59 06:59 Intake Total 1030 ml 1090 ml Output Total 200 ml 175 ml Balance 830 ml 915 ml Intake Free Water 200 ml 260 ml IV Total 110 ml 110 ml Tube Feeding 660 ml 660 ml Other 60 ml 60 ml Output Urine Total 200 ml 175 ml # Voids 1 # Bowel Movements 2 Objective HEAD AND NECK: Tracheostomy intact. LUNGS: Coarse rhonchi. Decreased breath sounds CARDIOVASCULAR: Irregular irregular S1 and S2 with no gallop. ABDOMEN: Status post G-tube, distended. EXTREMITIES: Reveal 1+ edema. Luke Prather MD Dec 06, 2018 10:36
--- NOTE | 2018-12-06 11:07 | Nephrology Progress Note ---
Assessment/Plan Problem List: (1) Hematuria Assessment: persistant (2) Septic shock Assessment: WBCs rising (3) Ventilator dependence (4) Renal failure (ARF), acute on chronic (5) Prostate enlargement (6) Anemia (7) Hyperosmolality with hypernatremia Assessment Septic Shock Acute renal failure CKD underlying BPH Sever Anemia Chronic trach-Vent DM HypoAlbuminemia HyperNatremia Dementia Troponin elevation Plan doing poorly transfused WBC kevin and has hematuria ! Anemia worsened, transfused Patient DNR , but not comfort care Will discuss the plan of care D5W for hyperNatremia now in SDU family agreed to DNR labs reviewed- mag IV as needed avoid Nephrotoxics transfuse as needed crabtree monitor urine out put and renal parameters per orders Subjective ROS Limited/Unobtainable: Yes Objective Objective Last 24 Hour Vital Signs Date Time Temp Pulse Resp B/P (MAP) Pulse Ox O2 Delivery O2 Flow Rate FiO2 12/06/18 11:03 84 22 40 12/06/18 08:45 88 24 99 Mechanical Ventilator 40 88 22 40 12/06/18 08:00 81 12/06/18 08:00 98.8 88 26 145/81 (102) 95 12/06/18 08:00 40 12/06/18 08:00 Mechanical Ventilator 12/06/18 07:16 65 22 40 12/06/18 05:27 88 21 40 12/06/18 04:00 97.1 77 26 124/68 (86) 99 12/06/18 04:00 Mechanical Ventilator 12/06/18 04:00 40 12/06/18 03:40 78 12/06/18 03:10 78 23 40 12/06/18 00:48 88 22 40 12/06/18 00:00 Mechanical Ventilator 12/06/18 00:00 40 12/06/18 00:00 97.7 86 26 145/81 (102) 99 12/05/18 23:26 80 12/05/18 22:30 86 24 100 Mechanical Ventilator 40 89 33 12/05/18 21:14 85 23 40 12/05/18 20:00 97.7 88 26 135/76 (95) 99 12/05/18 20:00 Mechanical Ventilator 12/05/18 20:00 40 12/05/18 19:30 79 12/05/18 19:19 82 29 40 12/05/18 17:22 81 22 40 10/30/19 16:00 Mechanical Ventilator 12/05/18 16:00 40 12/05/18 16:00 98.1 86 28 131/76 (94) 97 12/05/18 15:51 86 12/05/18 14:50 85 36 40 12/05/18 12:34 76 25 40 12/05/18 12:00 40 12/05/18 12:00 Mechanical Ventilator 12/05/18 12:00 97.8 98 28 130/53 (78) 96 12/05/18 11:42 82 12/05/18 11:10 87 30 40 Intake and Output 12/05/18 12/06/18 18:59 06:59 Intake Total 1030 ml 1090 ml Output Total 200 ml 175 ml Balance 830 ml 915 ml Intake Free Water 200 ml 260 ml IV Total 110 ml 110 ml Tube Feeding 660 ml 660 ml Other 60 ml 60 ml Output Urine Total 200 ml 175 ml # Voids 1 # Bowel Movements 2 Height (Feet): 5 Height (Inches): 5.00 Weight (Pounds): 169 General Appearance: no apparent distress Cardiovascular: normal rate Respiratory/Chest: decreased breath sounds Abdomen: soft, distended Objective no change Randolph Fernandes MD Dec 06, 2018 11:07
--- NOTE | 2018-12-06 11:40 | Diagnostic Imaging Report ---
Indication: Dyspnea Comparison: 11/29/2018 A single view chest radiograph was obtained. Findings: There is enlargement of the cardiac silhouette with pulmonary vascular redistribution and prominence, hazy vessel margins and the suggestion of interstitial edema consistent with CHF. Diaphragm is obscured by hazy opacities likely pleural effusions. Tracheostomy is noted. Bones are osteopenic. IMPRESSION: Congestive heart failure appears relatively stable. Bilateral pleural effusions
[2018-12-06 12:00] VITALS: BP 141/74
--- NOTE | 2018-12-06 12:22 | General Progress Note ---
Assessment/Plan Problem List: (1) GIB (gastrointestinal bleeding) ICD Codes: K92.2 - Gastrointestinal hemorrhage, unspecified SNOMED: 18120933 (2) PEG (percutaneous endoscopic gastrostomy) status ICD Codes: Z93.1 - Gastrostomy status SNOMED: 707315346, 583581829 (3) Chronic renal disease ICD Codes: N18.9 - Chronic kidney disease, unspecified SNOMED: 870117626 (4) Prostate enlargement ICD Codes: N40.0 - Benign prostatic hyperplasia without lower urinary tract symptoms SNOMED: 796852185 (5) Anemia ICD Codes: D64.9 - Anemia, unspecified SNOMED: 415431567 (6) Septic shock ICD Codes: A41.9 - Sepsis, unspecified organism; R65.21 - Severe sepsis with septic shock SNOMED: 06007917 (7) Gastrostomy tube dependent ICD Codes: Z93.1 - Gastrostomy status SNOMED: 099261376, 170722420 Status: stable, progressing, unchanged Assessment/Plan: ppi prn blood transfusion>>> 2 units yesterday abx per ID GTF EGD on hold given stable H&H and patient's poor medical condition hematuria>> fu urology recs Subjective ROS Limited/Unobtainable: No Allergies: Coded Allergies: TERAZOSIN (Verified Allergy, Unknown, 10/27/17) Objective Last 24 Hour Vital Signs Date Time Temp Pulse Resp B/P (MAP) Pulse Ox O2 Delivery O2 Flow Rate FiO2 12/06/18 11:03 84 22 40 12/06/18 08:45 88 24 99 Mechanical Ventilator 40 88 22 40 12/06/18 08:00 81 12/06/18 08:00 98.8 88 26 145/81 (102) 95 12/06/18 08:00 40 12/06/18 08:00 Mechanical Ventilator 12/06/18 07:16 65 22 40 12/06/18 05:27 88 21 40 12/06/18 04:00 97.1 77 26 124/68 (86) 99 12/06/18 04:00 Mechanical Ventilator 12/06/18 04:00 40 12/06/18 03:40 78 12/06/18 03:10 78 23 40 12/06/18 00:48 88 22 40 12/06/18 00:00 Mechanical Ventilator 12/06/18 00:00 40 12/06/18 00:00 97.7 86 26 145/81 (102) 99 12/05/18 23:26 80 12/05/18 22:30 86 24 100 Mechanical Ventilator 40 89 33 12/05/18 21:14 85 23 40 12/05/18 20:00 97.7 88 26 135/76 (95) 99 12/05/18 20:00 Mechanical Ventilator 12/05/18 20:00 40 12/05/18 19:30 79 12/05/18 19:19 82 29 40 12/05/18 17:22 81 22 40 12/05/18 16:00 Mechanical Ventilator 12/05/18 16:00 40 12/05/18 16:00 98.1 86 28 131/76 (94) 97 12/05/18 15:51 86 12/05/18 14:50 85 36 40 12/05/18 12:34 76 25 40 Intake and Output 12/05/18 12/06/18 18:59 06:59 Intake Total 1030 ml 1090 ml Output Total 200 ml 175 ml Balance 830 ml 915 ml Intake Free Water 200 ml 260 ml IV Total 110 ml 110 ml Tube Feeding 660 ml 660 ml Other 60 ml 60 ml Output Urine Total 200 ml 175 ml # Voids 1 # Bowel Movements 2 Height (Feet): 5 Height (Inches): 5.00 Weight (Pounds): 169 General Appearance: lethargic EENT: normal ENT inspection Neck: supple Cardiovascular: normal rate Respiratory/Chest: decreased breath sounds Abdomen: normal bowel sounds, non tender, soft Extremities: non-tender Juan Coronel MD Dec 06, 2018 12:22
--- NOTE | 2018-12-06 14:24 | Diagnostic Imaging Report ---
APPROVED REPORT CPT Code: 67452 Present Symptoms Upper Extremity Edema: Left LEFT UPPER EXTREMITY: Venous imaging reveals patency of the internal jugular, subclavian, axillary and brachial veins. The cephalic and basilic veins are also patent. Doppler indicates normal spontaneous flow within these venous segments.
[2018-12-06 16:00] VITALS: BP 131/82
--- NOTE | 2018-12-06 16:19 | Surgery Progress Note ---
Surgery Progress Note Subjective Additional Comments Ill-appearing. Labs noted. Exam stable. Still having hematuria little bit darker today as compared to prior. Transfused 2 units yesterday. Objective Last 24 Hour Vital Signs Date Time Temp Pulse Resp B/P (MAP) Pulse Ox O2 Delivery O2 Flow Rate FiO2 12/06/18 16:00 Mechanical Ventilator 12/06/18 15:26 97 22 40 12/06/18 13:18 99 22 40 12/06/18 12:00 Mechanical Ventilator 12/06/18 12:00 40 12/06/18 12:00 80 12/06/18 12:00 99.0 83 35 141/74 (96) 95 12/06/18 11:03 84 22 40 12/06/18 08:45 88 24 99 Mechanical Ventilator 40 88 22 40 12/06/18 08:00 81 12/06/18 08:00 98.8 88 26 145/81 (102) 95 12/06/18 08:00 40 12/06/18 08:00 Mechanical Ventilator 12/06/18 07:16 65 22 40 12/06/18 05:27 88 21 40 12/06/18 04:00 97.1 77 26 124/68 (86) 99 12/06/18 04:00 Mechanical Ventilator 12/06/18 04:00 40 12/06/18 03:40 78 12/06/18 03:10 78 23 40 12/06/18 00:48 88 22 40 12/06/18 00:00 Mechanical Ventilator 12/06/18 00:00 40 12/06/18 00:00 97.7 86 26 145/81 (102) 99 12/05/18 23:26 80 12/05/18 22:30 86 24 100 Mechanical Ventilator 40 89 33 12/05/18 21:14 85 23 40 12/05/18 20:00 97.7 88 26 135/76 (95) 99 12/05/18 20:00 Mechanical Ventilator 12/05/18 20:00 40 12/05/18 19:30 79 12/05/18 19:19 82 29 40 12/05/18 17:22 81 22 40 I&O Intake and Output 12/05/18 12/06/18 18:59 06:59 Intake Total 1030 ml 1090 ml Output Total 200 ml 175 ml Balance 830 ml 915 ml Intake Free Water 200 ml 260 ml IV Total 110 ml 110 ml Tube Feeding 660 ml 660 ml Other 60 ml 60 ml Output Urine Total 200 ml 175 ml # Voids 1 # Bowel Movements 2 Dressing: saturated Wound: other Drains: other Cardiovascular: RSR Respiratory: decreased breath sounds Abdomen: soft, non-tender, present bowel sounds, non-distended Extremities: no cyanosis, other Plan Problems: (1) Severe sepsis Assessment & Plan: leukocytosis, anemia, lactic acidosis, fevers IV Abx imaging noted and reviewed US with no stones or dilated ducts elevated lft's likely due to liver disease exam as below cont abx trend labs leave crabtree for a few weeks Overall prognosis very guarded Continue with current care Transfuse as needed Plan to be seen by urologist for hematuria thank you will follow with recs Findings: Exam is somewhat limited, due to gastrostomy tube and overlying bowel gas limiting visualization of the abdominal aorta Gallbladder is unremarkable, without stones, wall thickening, nor pericholecystic fluid. Sonographic Carl's sign is negative. Common bile duct measures 4 mm in diameter. No intrahepatic biliary ductal dilatation. Liver demonstrates normal echogenicity, no focal abnormality. It demonstrates slight surface nodularity. It is enlarged. There is a 1 cm cyst which appears adjacent to the gallbladder wall. This is probably a small exophytic hepatic cyst. Portal vein and hepatic veins are patent. Pancreas is unremarkable. Spleen is unremarkable. Left kidney measures 9.2 cm in length. Right kidney measures 10.2 cm length. Both kidneys demonstrate normal echogenicity. There is no hydronephrosis. Both kidneys demonstrate cysts. . Abdominal aorta is partially obscured by bowel gas, visualized portions are non-aneurysmal . Impression: Negative for gallstones or dilated bile ducts Hepatic surface nodularity, may indicate early cirrhotic changes Hepatomegaly Incidental finding bilateral renal cysts (2) Malnutrition Assessment & Plan: DAILY ESTIMATED NEEDS: Needs based on Critical care, sepsis 71.8 kg 22-30 kcals/kg 9504-4104 total kcals 1.2-2 g protein/kg 86- 144 g total protein 25-30 mL/kg 1795- 2154 total fluid mLs NUTRITION DIAGNOSIS: * Swallowing difficulty R/T respiratory status and dysphagia as evidenced by pt is vent dep, on TF. * Altered nutrition related lab values r/t sepsis, clinical status, h/o Diabetes as evidenced by critically elev WBC (47.2), low Hgb (6.6), elev BNP, low BP (96/41), BG 191, POC 179. CURRENT TF: Jevity 1.2 @ 70mL/hr x 20hr - NOW NPO ENTERAL NUTRITION RECOMMENDATIONS: Vital 1.2 @55mL/hr x24 hrs to provide 1320mL, 1584kcal, 99g pro, 1071mL free H2O * As medically appropriate to feed, rec TF change to VITAL 1.2 for critical care. * Start Vital 1,2, @25mL, advance as tolerated 10ml/hr q4-6 hrs to goal * HOB over 30 degrees/ water flush per MD --- Low Hgb (6.6), NPO per GI-> rec trophic feeds when appropriate if pt remains hypotensive. ADDITIONAL RECOMMENDATIONS: * Per SNF: HT 68 inches WT 158 lbs + Daily calibrated bed scale wts * Change TF to Vital 1.2, as medically able to feed * Monitor lytes (replete as needed) * F/up w/ WC eval . (3) Sacral decubitus ulcer Assessment & Plan: Pt presented on admission with contractures and multiple pressure injuries. Partially opened DTPI L buttocks. Base of wound moist - viable with surrounding dark and fluctuant borders.(L)1.2cm x (W)1cm. Small amt of sanguineous exudate noted. No odor noted. Hyperpigmentation noted to sacrum. Historical scar from previous wound noted to L trochanter. Penile head retracted within foreskin and small wound noted within folds of foreskin. Wound is moist and viable. No odor or exudate noted. No erythema noted periwound. Resolving pressure injury plantar R heel. Base of wound 50% epithelialized, 50% moist and viable.(L)5.5cm x (W)6.5cm. Resolving pressure injury lateral L heel. Base of wound is moist and viable with surrounding hyperpigmentation.(L)0.6cm x (W)0.5cm. Scattered loose, dry brown skin noted to medial and posterior L heel. Tx.Plan: Apply Moisture Barrier Paste to L buttocks and sacrum. Cover with Optifoam drsg. Change every 3 days and prn. Cleanse head of penis with soap and water. Apply Bacitracin oint Twice Daily. Apply Betadine to R and L heel wounds. Cover each heel with Optifoam drsg. Daily and prn. APM/ABDELRAHMAN Mattress overlay. Reposition at least every 2hours and prn. Off-load heels with pillow. Don Carvalho Dec 06, 2018 16:19
[2018-12-06 20:00] VITALS: BP 104/68
[2018-12-06] MEDS: Dyna-Hex 2% Top Sol 2oz TOPIC SCH (20:27)
--- NOTE | 2018-12-06 21:19 | General Progress Note ---
Assessment/Plan Problem List: (1) Hypernatremia ICD Codes: E87.0 - Hyperosmolality and hypernatremia SNOMED: 38334089 (2) Rhabdomyolysis ICD Codes: M62.82 - Rhabdomyolysis SNOMED: 607330134 (3) Sacral decubitus ulcer ICD Codes: L89.159 - Pressure ulcer of sacral region, unspecified stage SNOMED: 438379692 (4) Severe sepsis ICD Codes: A41.9 - Sepsis, unspecified organism; R65.20 - Severe sepsis without septic shock SNOMED: 40297915 (5) Septic shock ICD Codes: A41.9 - Sepsis, unspecified organism; R65.21 - Severe sepsis with septic shock SNOMED: 66281269 (6) DM (7) Anemia ICD Codes: D64.9 - Anemia, unspecified SNOMED: 261157971 (8) Prostate enlargement ICD Codes: N40.0 - Benign prostatic hyperplasia without lower urinary tract symptoms SNOMED: 638024211 (9) Chronic renal disease ICD Codes: N18.9 - Chronic kidney disease, unspecified SNOMED: 917478698 (10) Ventilator dependence ICD Codes: Z99.11 - Dependence on respirator [ventilator] status SNOMED: 544727668 (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 - Gastrostomy status SNOMED: 239753474, 023898074 (12) Malnutrition ICD Codes: E46 - Unspecified protein-calorie malnutrition SNOMED: 69753306 Status: stable, progressing, unchanged Assessment/Plan: severe anemia improved s/p transfusion on isolation for polymicrobial pna afebrile junctional rhythem edema laurie afebrile chf Subjective ROS Limited/Unobtainable: Yes Allergies: Coded Allergies: TERAZOSIN (Verified Allergy, Unknown, 10/27/17) Objective Last 24 Hour Vital Signs Date Time Temp Pulse Resp B/P (MAP) Pulse Ox O2 Delivery O2 Flow Rate FiO2 12/06/18 20:00 98.1 76 27 104/68 (80) 99 12/06/18 18:50 81 26 40 12/06/18 17:31 78 30 40 12/06/18 16:00 91 12/06/18 16:00 98.9 83 25 131/82 (98) 94 12/06/18 16:00 40 12/06/18 16:00 Mechanical Ventilator 12/06/18 15:26 97 22 40 12/06/18 13:18 99 22 40 12/06/18 12:00 Mechanical Ventilator 12/06/18 12:00 40 12/06/18 12:00 80 12/06/18 12:00 99.0 83 35 141/74 (96) 95 12/06/18 11:03 84 22 40 12/06/18 08:45 88 24 99 Mechanical Ventilator 40 88 22 40 12/06/18 08:00 81 12/06/18 08:00 98.8 88 26 145/81 (102) 95 12/06/18 08:00 40 12/06/18 08:00 Mechanical Ventilator 12/06/18 07:16 65 22 40 12/06/18 05:27 88 21 40 12/06/18 04:00 97.1 77 26 124/68 (86) 99 12/06/18 04:00 Mechanical Ventilator 12/06/18 04:00 40 12/06/18 03:40 78 12/06/18 03:10 78 23 40 12/06/18 00:48 88 22 40 12/06/18 00:00 Mechanical Ventilator 12/06/18 00:00 40 12/06/18 00:00 97.7 86 26 145/81 (102) 99 12/05/18 23:26 80 12/05/18 22:30 86 24 100 Mechanical Ventilator 40 89 33 Intake and Output 12/05/18 12/06/18 19:00 07:00 Intake Total 1030 ml 1090 ml Output Total 200 ml 175 ml Balance 830 ml 915 ml Intake Free Water 200 ml 260 ml IV Total 110 ml 110 ml Tube Feeding 660 ml 660 ml Other 60 ml 60 ml Output Urine Total 200 ml 175 ml # Voids 1 # Bowel Movements 2 Height (Feet): 5 Height (Inches): 5.00 Weight (Pounds): 198 Cardiovascular: normal peripheral pulses Respiratory/Chest: lungs clear Abdomen: soft Trish Matias MD Dec 06, 2018 21:19
--- NOTE | 2018-12-06 22:49 | Pulmonology Progress Note ---
Assessment/Plan Assessment/Plan Pulmonary Progress Note Assessment/Plan Impression: Patient with Pneumonia - KPC/Acinetobacter/MDR pseudomonas, Proteus Ventilator dependant respiratory failure, stable Pulmonary Status Severe sepsis - improved Leucocytosis NSTEMI Anemia sp TFN Dysphagia s/p G tube Chronic wounds Dementia Organic Brain Syndrome Diabetes Chronic renal disease BPH Penile wound Hematuria - Urology following CHF H/o Hypertension Severe Protein Calorie Malnutrition Plan antibiotic regimen per ID monitor blood pressure HHN Q4 and monitor secretions and suction PRN on full vent support-AC- no wean transfuse PRN DNAR multiorgan disease with poor prognosis monitor oxygen needs- and adjust monitor labs DVT and PUD prophylaxis Gtube feeds as able; monitor residuals and reflux aspiration monitor residuals for change 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 need 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 medications/laboratory data/nursing notes reviewed in detail note reviewed and edited care discussed with RN and RT Interval Events: care noted vitals stable poor LOC f ROS Limited/Unobtainable: Yes Condition: critical EKG Rhythm: Sinus Rhythm Residuals: minimal Tube Feeding Tolerated: yes Vital Signs Noted Labs Noted CXR: Impression: Unchanged Objective: WDWN NAD on vent and poorly responsive reduced breath sounds bilaterally with noted rhonchi [id number] without MRG NABS nontender no HSM; GT; non distended no CC mild edema nonfocal reduced LOC skin noted reviewed and edited Sputum: Organism 1 K.PNEUMONIAE CARBAPENEM RESIST GROWTH: 4+ only sens Colistin Organism 2 A.BAUMANII COMPLX - MDR GROWTH: 4+ Organism 3 PSEUDOMONAS AERUGINOSA GROWTH: 4+ Organism 4 PROTEUS MIRABILIS GROWTH: 4+ Subjective ROS Limited/Unobtainable: No Allergies: Coded Allergies: TERAZOSIN (Verified Allergy, Unknown, 10/27/17) Objective Last 24 Hour Vital Signs Date Time Temp Pulse Resp B/P (MAP) Pulse Ox O2 Delivery O2 Flow Rate FiO2 12/06/18 20:00 98.1 76 27 104/68 (80) 99 12/06/18 19:51 78 12/06/18 18:50 81 26 40 12/06/18 17:31 78 30 40 12/06/18 16:00 91 12/06/18 16:00 98.9 83 25 131/82 (98) 94 12/06/18 16:00 40 12/06/18 16:00 Mechanical Ventilator 12/06/18 15:26 97 22 40 12/06/18 13:18 99 22 40 12/06/18 12:00 Mechanical Ventilator 12/06/18 12:00 40 12/06/18 12:00 80 12/06/18 12:00 99.0 83 35 141/74 (96) 95 12/06/18 11:03 84 22 40 12/06/18 08:45 88 24 99 Mechanical Ventilator 40 88 22 40 12/06/18 08:00 81 12/06/18 08:00 98.8 88 26 145/81 (102) 95 12/06/18 08:00 40 12/06/18 08:00 Mechanical Ventilator 12/06/18 07:16 65 22 40 12/06/18 05:27 88 21 40 12/06/18 04:00 97.1 77 26 124/68 (86) 99 12/06/18 04:00 Mechanical Ventilator 12/06/18 04:00 40 12/06/18 03:40 78 12/06/18 03:10 78 23 40 12/06/18 00:48 88 22 40 12/06/18 00:00 Mechanical Ventilator 12/06/18 00:00 40 12/06/18 00:00 97.7 86 26 145/81 (102) 99 12/05/18 23:26 80 Intake and Output 12/05/18 12/06/18 19:00 07:00 Intake Total 1030 ml 1090 ml Output Total 200 ml 175 ml Balance 830 ml 915 ml Intake Free Water 200 ml 260 ml IV Total 110 ml 110 ml Tube Feeding 660 ml 660 ml Other 60 ml 60 ml Output Urine Total 200 ml 175 ml # Voids 1 # Bowel Movements 2 Current Medications Medications (Trade) Dose Ordered Sig/Ruthie Route PRN Reason Start Time Stop Time Status Last Admin Dose Admin Acetaminophen (Tylenol) 650 mg Q6H PRN GT Mild Pain/Temp > 100.5 11/28/18 06:05 12/15/18 06:04 12/01/18 13:41 Atropine Sulfate (Atropine 0.4mg/ ml) 0.4 mg Q5M PRN IVP HR<30 for 30 seconds 11/28/18 06:09 12/28/18 06:08 Bacitracin (Bacitracin 15gm tube) 1 applic BID TOPIC 12/01/18 18:00 12/31/18 17:59 12/06/18 17:11 Bisacodyl (Dulcolax) 10 mg DAILYPRN PRN RECTAL Constipation 11/28/18 06:05 12/18/18 06:04 Ceftazidime 2 gm/ Dextrose 110 ml @ 220 mls/hr Q8H IV 12/01/18 18:00 12/08/18 17:59 12/06/18 17:06 Chlorhexidine Gluconate (Rachael-Hex 2%) 1 applic DAILY@2000 TOPIC 11/28/18 20:00 12/15/18 19:59 12/06/18 20:27 Ciprofloxacin (Cipro 500mg tab) 500 mg EVERY 12 HOURS GT 11/29/18 09:00 12/06/18 23:59 12/06/18 21:47 Colistimethate Sodium (Colistin *inhalation use only*) 75 mg Q12HR@10,22 INH 11/29/18 22:00 12/06/18 23:59 12/06/18 08:44 Dextrose (Dextrose 50%) 25 ml Q30M PRN IV Hypoglycemia 11/28/18 06:15 12/15/18 09:38 Dextrose (Dextrose 50%) 50 ml Q30M PRN IV Hypoglycemia 11/28/18 06:15 12/15/18 05:44 Insulin Aspart (NovoLOG) BEFORE MEALS AND HS SUBQ 11/28/18 06:30 12/15/18 06:29 12/06/18 11:27 Lansoprazole (Prevacid) 30 mg BID GT 11/28/18 18:00 12/28/18 17:59 12/06/18 17:06 Lorazepam (Ativan 2mg/ml 1ml) 0.5 mg Q2H PRN IV For Anxiety 12/05/18 14:56 12/12/18 14:55 Olanzapine (ZyPREXA Zydis) 7.5 mg DAILY GT 11/28/18 09:00 12/15/18 08:59 12/06/18 08:22 Booker Baumann MD Dec 06, 2018 22:49
[2018-12-07] VITALS: BP 127/83
[2018-12-07] MEDS: CefTAZidime 2 GM in D5W 110 ML IV SCH ×3 (02:30→17:32)
[2018-12-07 04:00] VITALS: BP 142/55
[2018-12-07 05:31] LABS: BASOPHILS % (AUTO) 0.4 % (0.0-2.0); EOSINOPHILS % (AUTO) 1.8 % (0.0-3.0); HEMATOCRIT 30.6 % (42.0-52.0); HEMOGLOBIN 9.8 G/DL (14.2-18.0); LYMPHOCYTES % (AUTO) 10.2 % (20.0-45.0); MEAN CORPUSCULAR VOLUME 86 FL (80-99); NEUTROPHILS % (AUTO) 74.6 % (45.0-75.0); PLATELET COUNT 307 K/UL (150-450); RED BLOOD COUNT 3.54 M/UL (4.70-6.10); RED CELL DISTRIBUTION WIDTH 15.8 % (11.6-14.8); WHITE BLOOD COUNT 16.1 K/UL (4.8-10.8)
[2018-12-07] MEDS: LORazepam Inj 2mg/ml 1ml IV PRN ×2 (05:37→17:19)
[2018-12-07] MEDS: NovoLOG Insulin Flexpen SUBQ SCH ×4 (05:50→20:51)
[2018-12-07 06:10] LABS: ALANINE AMINOTRANSFERASE 25 U/L (12-78); ALBUMIN 1.5 G/DL (3.4-5.0); ALBUMIN/GLOBULIN RATIO 0.3 (1.0-2.7); ALKALINE PHOSPHATASE 115 U/L (46-116); ANION GAP 2 mmol/L (5-15); ASPARTATE AMINO TRANSFERASE 27 U/L (15-37); BILIRUBIN,TOTAL 0.3 MG/DL (0.2-1.0); BLOOD UREA NITROGEN 20 mg/dL (7-18); CALCIUM 8.2 MG/DL (8.5-10.1); CARBON DIOXIDE 35 MMOL/L (21-32); CHLORIDE 112 MMOL/L (98-107); CREATININE 0.9 MG/DL (0.55-1.30); POTASSIUM 4.7 MMOL/L (3.5-5.1); SODIUM 149 MMOL/L (136-145)
[2018-12-07 08:00] VITALS: BP 143/91
[2018-12-07] MEDS: ZyPREXA Zydis 5mg tab GT SCH (09:32)
[2018-12-07] MEDS: Bacitracin Oint 15gm Tube TOPIC SCH ×2 (09:33→17:19)
--- NOTE | 2018-12-07 10:57 | Hematology/Onc Progress Note ---
Assessment/Plan Assessment/Plan ASSESSMENT AND RECOMMENDATIONS # Leukocytosis. Likely related to underlying infection with sepsis and elevated severely on admission --> Imaging has been reviewed. Shows cxr left lung inil/v edema --> Blood cs and urine cx are have been reviewed --> Has been started on abx, empiric tx (zosyn)--> colistin/cipro/ceftaz--> ceftazadime --> PERIPHERAL SMEAR SHOWS ATYPICAL LYMPHOCYTES--> has stabilized, improved --> Flow cytometry ordered with pathologist -> no atypical findings are noted --> wbc 52k-->47k-->29k->16-->12-->14->12-->12-->21-->14->11->15->9-->11.4->24k- >28k-->16k-->13-->17k-->16k --> picc was repositioned --> is off of any steriods, daily md review --> for urology evaluation with hematuria, improved # Anemia of chronic disease, due to underlying chronic medical issues, multifactorial. --> Anemia w/u has been ordered --> with hyperferritinemia --> No evidence of hemolysis noted, peripheral smear has been reviewed --> Hgb goal >7. Transfuse as needed --> hgb trend 7.5-->6.6->9.1-->9.2-->8.9-->9.9->8.3-->8.5-->9.3-->8.2->8.4-->7.1 -->10.6-->9.8 --> 2 units transfuse on 11/15, 2 more 12/04 --> will need to follow as outpatient and may need chelation therapy --> GI workup with egd showed gastritis --> hematuria eval as per UROL # Failure to thrive (FTT) - decreased bmi and low protein --> cea 4.3 --> will obtain q3 day caloric counts --> mirtazapine as appetite stimulant --> GI consult on a prn basis, as needed for endosc # Asystole with pauses may need pm per family --> as per cards recs # Sepsis, which has improved --> abx as per id # dysphagia s/p PEG # Malnutrition. 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 Greatly appreciate consultation. Subjective Constitutional: Denies: no symptoms, chills, fever, malaise, weakness, other HEENT: Denies: no symptoms, eye pain, blurred vision, tearing, double vision, ear pain, ear discharge, nose pain, nose congestion, throat pain, throat swelling, mouth pain, mouth swelling, other Cardiovascular: Denies: no symptoms, chest pain, edema, irregular heart rate, lightheadedness, palpitations, syncope, other Respiratory: Denies: no symptoms, cough, shortness of breath, SOB with excertion, SOB at rest, sputum, wheezing, other Gastrointestinal/Abdominal: Denies: no symptoms, abdomen distended, abdominal pain, black stools, tarry stools, blood in stool, constipated, diarrhea, difficulty swallowing, nausea, poor appetite, poor fluid intake, rectal bleeding , vomiting, other Genitourinary: Denies: no symptoms, burning, discharge, frequency, flank pain, hematuria, incontinence, pain, urgency, other Neurologic/Psychiatric: Denies: no symptoms, anxiety, depressed, emotional problems, headache, numbness, paresthesia, pre-existing deficit, seizure, tingling, tremors, weakness, other Endocrine: Denies: no symptoms, excessive sweating, flushing, intolerance to cold, intolerance to heat, increased hunger, increased thirst, increased urine, unexplained weight gain, unexplained weight loss, other Allergies: Coded Allergies: TERAZOSIN (Verified Allergy, Unknown, 10/27/17) Subjective 11/16: in the icu, is off pressors, doing better, no bleeding 11/18: no bleeding, remains on doxy and zosyn, no bleeding reported 11/19: out of the icu, on vent/trach, no major changes, dw rn 11/20: no bleeding noted, no night sweats, meds reviewed, no f/c 11/21: on vent, obtunded, with gt ongong, with picc, no bleeding .17: stricture advanced through with uro, with crabtree, labs noted 11/23: no events to report, no bleeding, labs reviewed, in icu 11/24: remains in the icu, with asystole, pending discussion with marlyn re pM 11/25: continues to have pauses, no bleeding, seen by cards, no events 11/26: no ets, no bleeding noted, no night sweats, no f/c 11/27: hgb 8.2, no bleeding or chills, no major changes on trach/vent, jimenez RN 11/28: agitated today, on vent/trach, jimenez rn, potential dc to tirso turner 11/29: obtunded, is out of the unit, labs noted, wbc 24k 11/30: gt feeds on hold, no bleeding reported, no night sweats 12/01: is on abx, no bleeding, no f/c, no night sweats noted 12/04: no events to report, hgb 7.1, nor chills noted, to get 2 unit prbc 12/05: for blood transfusion which was completed, but wbc higher, with hematruia , is dnr 12/06: no events, no bleeding, hematuria is improved, labs pending, on vent/ trach 12/07: no bleeding, no chills, labs noted, hgb higher Objective Objective Current Medications Medications (Trade) Dose Ordered Sig/Ruthie Route PRN Reason Start Time Stop Time Status Last Admin Dose Admin Acetaminophen (Tylenol) 650 mg Q6H PRN GT Mild Pain/Temp > 100.5 11/28/18 06:05 12/15/18 06:04 12/01/18 13:41 Atropine Sulfate (Atropine 0.4mg/ ml) 0.4 mg Q5M PRN IVP HR<30 for 30 seconds 11/28/18 06:09 12/28/18 06:08 Bacitracin (Bacitracin 15gm tube) 1 applic BID TOPIC 12/01/18 18:00 12/31/18 17:59 12/07/18 09:33 Bisacodyl (Dulcolax) 10 mg DAILYPRN PRN RECTAL Constipation 11/28/18 06:05 12/18/18 06:04 Ceftazidime 2 gm/ Dextrose 110 ml @ 220 mls/hr Q8H IV 12/01/18 18:00 12/08/18 17:59 12/07/18 09:33 Dextrose (Dextrose 50%) 25 ml Q30M PRN IV Hypoglycemia 11/28/18 06:15 12/15/18 09:38 Dextrose (Dextrose 50%) 50 ml Q30M PRN IV Hypoglycemia 11/28/18 06:15 12/15/18 05:44 Insulin Aspart (NovoLOG) BEFORE MEALS AND HS SUBQ 11/28/18 06:30 12/15/18 06:29 12/07/18 05:50 Lansoprazole (Prevacid) 30 mg BID GT 11/28/18 18:00 12/28/18 17:59 12/07/18 09:31 Lorazepam (Ativan 2mg/ml 1ml) 0.5 mg Q2H PRN IV For Anxiety 12/05/18 14:56 12/12/18 14:55 12/07/18 05:37 Olanzapine (ZyPREXA Zydis) 7.5 mg DAILY GT 11/28/18 09:00 12/15/18 08:59 12/07/18 09:32 Last 24 Hour Vital Signs Date Time Temp Pulse Resp B/P (MAP) Pulse Ox O2 Delivery O2 Flow Rate FiO2 12/07/18 09:23 82 24 40 12/07/18 08:12 83 25 40 12/07/18 08:00 98.6 91 28 143/91 (108) 96 12/07/18 05:49 81 26 40 12/07/18 04:00 40 12/07/18 04:00 Mechanical Ventilator 12/07/18 04:00 98.9 78 25 142/55 (84) 96 12/07/18 03:57 79 23 40 12/07/18 03:51 78 12/07/18 01:25 78 23 40 12/07/18 00:00 Mechanical Ventilator 12/07/18 00:00 98.2 89 23 127/83 (98) 99 12/07/18 00:00 78 12/07/18 00:00 40 12/06/18 23:23 74 23 99 Mechanical Ventilator 40 71 24 40 12/06/18 20:45 71 24 99 Mechanical Ventilator 40 71 24 40 12/06/18 20:00 40 12/06/18 20:00 98.1 76 27 104/68 (80) 99 12/06/18 20:00 Mechanical Ventilator 12/06/18 19:51 78 12/06/18 18:50 81 26 40 12/06/18 17:31 78 30 40 12/06/18 16:00 91 12/06/18 16:00 98.9 83 25 131/82 (98) 94 12/06/18 16:00 40 12/06/18 16:00 Mechanical Ventilator 12/06/18 15:26 97 22 40 12/06/18 13:18 99 22 40 12/06/18 12:00 Mechanical Ventilator 12/06/18 12:00 40 12/06/18 12:00 80 12/06/18 12:00 99.0 83 35 141/74 (96) 95 12/06/18 11:03 84 22 40 12/06/18 08:45 88 24 99 Mechanical Ventilator 40 88 22 40 12/06/18 08:00 81 12/06/18 08:00 98.8 88 26 145/81 (102) 95 12/06/18 08:00 40 12/06/18 08:00 Mechanical Ventilator 12/06/18 07:16 65 22 40 12/06/18 05:27 88 21 40 12/06/18 04:00 97.1 77 26 124/68 (86) 99 12/06/18 04:00 Mechanical Ventilator 12/06/18 04:00 40 12/06/18 03:40 78 12/06/18 03:10 78 23 40 12/06/18 00:48 88 22 40 12/06/18 00:00 Mechanical Ventilator 12/06/18 00:00 40 12/06/18 00:00 97.7 86 26 145/81 (102) 99 12/05/18 23:26 80 12/05/18 22:30 86 24 100 Mechanical Ventilator 40 89 33 12/05/18 21:14 85 23 40 12/05/18 20:00 97.7 88 26 135/76 (95) 99 12/05/18 20:00 Mechanical Ventilator 12/05/18 20:00 40 12/05/18 19:30 79 12/05/18 19:19 82 29 40 12/05/18 17:22 81 22 40 12/05/18 16:00 Mechanical Ventilator 12/05/18 16:00 40 12/05/18 16:00 98.1 86 28 131/76 (94) 97 12/05/18 15:51 86 12/05/18 14:50 85 36 40 12/05/18 12:34 76 25 40 12/05/18 12:00 40 12/05/18 12:00 Mechanical Ventilator 12/05/18 12:00 97.8 98 28 130/53 (78) 96 12/05/18 11:42 82 12/05/18 11:10 87 30 40 Intake and Output 12/06/18 12/07/18 19:00 07:00 Intake Total 1250 ml 1000 ml Output Total 100 ml 100 ml Balance 1150 ml 900 ml Intake Free Water 310 ml 200 ml IV Total 220 ml 110 ml Tube Feeding 660 ml 660 ml Other 60 ml 30 ml Output Urine Total 100 ml 100 ml # Bowel Movements 3 1 Labs Test 12/05/18 03:00 12/07/18 03:05 White Blood Count 17.1 K/UL (4.8-10.8) 16.1 K/UL (4.8-10.8) Red Blood Count 3.81 M/UL (4.70-6.10) 3.54 M/UL (4.70-6.10) Hemoglobin 10.6 G/DL (14.2-18.0) 9.8 G/DL (14.2-18.0) Hematocrit 32.8 % (42.0-52.0) 30.6 % (42.0-52.0) Mean Corpuscular Volume 86 FL (80-99) 86 FL (80-99) Mean Corpuscular Hemoglobin 27.8 PG (27.0-31.0) 27.6 PG (27.0-31.0) Mean Corpuscular Hemoglobin Concent 32.3 G/DL (32.0-36.0) 31.9 G/DL (32.0-36.0) Red Cell Distribution Width 15.1 % (11.6-14.8) 15.8 % (11.6-14.8) Platelet Count 314 K/UL (150-450) 307 K/UL (150-450) Mean Platelet Volume 6.3 FL (6.5-10.1) 6.0 FL (6.5-10.1) Neutrophils (%) (Auto) 74.3 % (45.0-75.0) 74.6 % (45.0-75.0) Lymphocytes (%) (Auto) 11.1 % (20.0-45.0) 10.2 % (20.0-45.0) Monocytes (%) (Auto) 12.7 % (1.0-10.0) 13.0 % (1.0-10.0) Eosinophils (%) (Auto) 1.2 % (0.0-3.0) 1.8 % (0.0-3.0) Basophils (%) (Auto) 0.8 % (0.0-2.0) 0.4 % (0.0-2.0) Sodium Level 149 MMOL/L (136-145) Potassium Level 4.7 MMOL/L (3.5-5.1) Chloride Level 112 MMOL/L (98-107) Carbon Dioxide Level 35 MMOL/L (21-32) Anion Gap 2 mmol/L (5-15) Blood Urea Nitrogen 20 mg/dL (7-18) Creatinine 0.9 MG/DL (0.55-1.30) Estimat Glomerular Filtration Rate mL/min (>60) Glucose Level 105 MG/DL (74-106) Calcium Level 8.2 MG/DL (8.5-10.1) Total Bilirubin 0.3 MG/DL (0.2-1.0) Aspartate Amino Transf (AST/SGOT) 27 U/L (15-37) Alanine Aminotransferase (ALT/SGPT) 25 U/L (12-78) Alkaline Phosphatase 115 U/L (46-116) Total Protein 6.4 G/DL (6.4-8.2) Albumin 1.5 G/DL (3.4-5.0) Globulin 4.9 g/dL Albumin/Globulin Ratio 0.3 (1.0-2.7) Height (Feet): 5 Height (Inches): 5.00 Weight (Pounds): 203 Objective Vitals: reviewed Gen: no apparent distress Head: normocephalic EENT: normal ENT inspection Respiratory: other - intubated vent+ Cardiovascular: normal rate Gastrointestinal: gt - c/d/i Rectal: deferred Genitourinary: no CVA tenderness Skin: normal color +++ decub : ++ Beny Fields MD Dec 07, 2018 10:57
--- NOTE | 2018-12-07 11:09 | Nephrology Progress Note ---
Assessment/Plan Problem List: (1) Hematuria Assessment: persistant (2) Septic shock Assessment: WBCs rising (3) Ventilator dependence (4) Renal failure (ARF), acute on chronic (5) Prostate enlargement (6) Anemia (7) Hyperosmolality with hypernatremia Assessment Septic Shock Acute renal failure CKD underlying BPH Sever Anemia Chronic trach-Vent DM HypoAlbuminemia HyperNatremia Dementia Troponin elevation Plan doing poorly transfused WBC kevin and has hematuria ! Anemia worsened, transfused Patient DNR , but not comfort care Will discuss the plan of care D5W for hyperNatremia now in SDU family agreed to DNR labs reviewed- mag IV as needed avoid Nephrotoxics transfuse as needed crabtree monitor urine out put and renal parameters per orders Subjective ROS Limited/Unobtainable: Yes Objective Objective Last 24 Hour Vital Signs Date Time Temp Pulse Resp B/P (MAP) Pulse Ox O2 Delivery O2 Flow Rate FiO2 12/07/18 09:23 82 24 40 12/07/18 08:12 83 25 40 12/07/18 08:00 98.6 91 28 143/91 (108) 96 12/07/18 05:49 81 26 40 12/07/18 04:00 40 12/07/18 04:00 Mechanical Ventilator 12/07/18 04:00 98.9 78 25 142/55 (84) 96 12/07/18 03:57 79 23 40 12/07/18 03:51 78 12/07/18 01:25 78 23 40 12/07/18 00:00 Mechanical Ventilator 12/07/18 00:00 98.2 89 23 127/83 (98) 99 12/07/18 00:00 78 12/07/18 00:00 40 12/06/18 23:23 74 23 99 Mechanical Ventilator 40 71 24 40 12/06/18 20:45 71 24 99 Mechanical Ventilator 40 71 24 40 12/06/18 20:00 40 12/06/18 20:00 98.1 76 27 104/68 (80) 99 12/06/18 20:00 Mechanical Ventilator 12/06/18 19:51 78 12/06/18 18:50 81 26 40 12/06/18 17:31 78 30 40 12/06/18 16:00 91 12/06/18 16:00 98.9 83 25 131/82 (98) 94 12/06/18 16:00 40 10/31/19 16:00 Mechanical Ventilator 12/06/18 15:26 97 22 40 12/06/18 13:18 99 22 40 12/06/18 12:00 Mechanical Ventilator 12/06/18 12:00 40 12/06/18 12:00 80 12/06/18 12:00 99.0 83 35 141/74 (96) 95 Intake and Output 12/06/18 12/07/18 19:00 07:00 Intake Total 1250 ml 1000 ml Output Total 100 ml 100 ml Balance 1150 ml 900 ml Intake Free Water 310 ml 200 ml IV Total 220 ml 110 ml Tube Feeding 660 ml 660 ml Other 60 ml 30 ml Output Urine Total 100 ml 100 ml # Bowel Movements 3 1 Laboratory Tests 12/07/18 03:05: White Blood Count 16.1H, Red Blood Count 3.54L, Hemoglobin 9.8L, Hematocrit 30.6L, Mean Corpuscular Volume 86, Mean Corpuscular Hemoglobin 27.6, Mean Corpuscular Hemoglobin Concent 31.9L, Red Cell Distribution Width 15.8H, Platelet Count 307, Mean Platelet Volume 6.0L, Neutrophils (%) (Auto) 74.6, Lymphocytes (%) (Auto) 10.2L, Monocytes (%) (Auto) 13.0H, Eosinophils (%) (Auto ) 1.8, Basophils (%) (Auto) 0.4, Sodium Level 149H, Potassium Level 4.7, Chloride Level 112H, Carbon Dioxide Level 35H, Anion Gap 2L, Blood Urea Nitrogen 20H, Creatinine 0.9, Estimat Glomerular Filtration Rate , Glucose Level 105, Calcium Level 8.2L, Total Bilirubin 0.3, Aspartate Amino Transf (AST/ SGOT) 27, Alanine Aminotransferase (ALT/SGPT) 25, Alkaline Phosphatase 115, Total Protein 6.4, Albumin 1.5L, Globulin 4.9, Albumin/Globulin Ratio 0.3L Height (Feet): 5 Height (Inches): 5.00 Weight (Pounds): 203 General Appearance: no apparent distress EENT: other - trach Cardiovascular: tachycardia Respiratory/Chest: decreased breath sounds Abdomen: distended Objective no change Randolph Fernandes MD Dec 07, 2018 11:09
[2018-12-07 12:00] VITALS: BP 145/89
--- NOTE | 2018-12-07 12:04 | Infectious Diseases Prog Note ---
Assessment/Plan Assessment/Plan IMPRESSION: Sepsis, Pyuria/ UTI treated Pneumonia with MDR pseudomonas, Acinetobacter, Proteus & Klebsiella BPH, ventilator-dependent respiratory failure Leukocytosis improving Acute renal failure, improving Diabetes mellitus, anemia, hypoxemic respiratory failure, dementia. 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6 91 28 143/91 (108) 96 12/07/18 05:49 81 26 40 12/07/18 04:00 40 12/07/18 04:00 Mechanical Ventilator 12/07/18 04:00 98.9 78 25 142/55 (84) 96 12/07/18 03:57 79 23 40 12/07/18 03:51 78 12/07/18 01:25 78 23 40 12/07/18 00:00 Mechanical Ventilator 12/07/18 00:00 98.2 89 23 127/83 (98) 99 12/07/18 00:00 78 12/07/18 00:00 40 12/06/18 23:23 74 23 99 Mechanical Ventilator 40 71 24 40 12/06/18 20:45 71 24 99 Mechanical Ventilator 40 71 24 40 12/06/18 20:00 40 12/06/18 20:00 98.1 76 27 104/68 (80) 99 12/06/18 20:00 Mechanical Ventilator 12/06/18 19:51 78 12/06/18 18:50 81 26 40 12/06/18 17:31 78 30 40 12/06/18 16:00 91 12/06/18 16:00 98.9 83 25 131/82 (98) 94 12/06/18 16:00 40 12/06/18 16:00 Mechanical Ventilator 12/06/18 15:26 97 22 40 12/06/18 13:18 99 22 40 Height (Feet): 5 Height (Inches): 5.00 Weight (Pounds): 203 HEENT: status post trach Respiratory/Chest: decreased breath sounds, other - on ventilator Cardiovascular: normal rate, other - PICC line Abdomen: distended, other - GT feeding Genitourinary: other - Turner catheter, hematuria Extremities: other - generalized edema Skin: ulcers Neurologic/Psychiatric: aphasia Laboratory Tests Test 12/07/18 03:05 White Blood Count 16.1 K/UL (4.8-10.8) H Red Blood Count 3.54 M/UL (4.70-6.10) L Hemoglobin 9.8 G/DL (14.2-18.0) L Hematocrit 30.6 % (42.0-52.0) L Mean Corpuscular Volume 86 FL (80-99) Mean Corpuscular Hemoglobin 27.6 PG (27.0-31.0) Mean Corpuscular Hemoglobin Concent 31.9 G/DL (32.0-36.0) L Red Cell Distribution Width 15.8 % (11.6-14.8) H Platelet Count 307 K/UL (150-450) Mean Platelet Volume 6.0 FL (6.5-10.1) L Neutrophils (%) (Auto) 74.6 % (45.0-75.0) Lymphocytes (%) (Auto) 10.2 % (20.0-45.0) L Monocytes (%) (Auto) 13.0 % (1.0-10.0) H Eosinophils (%) (Auto) 1.8 % (0.0-3.0) Basophils (%) (Auto) 0.4 % (0.0-2.0) Sodium Level 149 MMOL/L (136-145) H Potassium Level 4.7 MMOL/L (3.5-5.1) Chloride Level 112 MMOL/L (98-107) H Carbon Dioxide Level 35 MMOL/L (21-32) H Anion Gap 2 mmol/L (5-15) L Blood Urea Nitrogen 20 mg/dL (7-18) H Creatinine 0.9 MG/DL (0.55-1.30) Estimat Glomerular Filtration Rate mL/min (>60) Glucose Level 105 MG/DL (74-106) Calcium Level 8.2 MG/DL (8.5-10.1) L Total Bilirubin 0.3 MG/DL (0.2-1.0) Aspartate Amino Transf (AST/SGOT) 27 U/L (15-37) Alanine Aminotransferase (ALT/SGPT) 25 U/L (12-78) Alkaline Phosphatase 115 U/L (46-116) Total Protein 6.4 G/DL (6.4-8.2) Albumin 1.5 G/DL (3.4-5.0) L Globulin 4.9 g/dL Albumin/Globulin Ratio 0.3 (1.0-2.7) L Current Medications Medications (Trade) Dose Ordered Sig/Ruthie Route PRN Reason Start Time Stop Time Status Last Admin Dose Admin Acetaminophen (Tylenol) 650 mg Q6H PRN GT Mild Pain/Temp > 100.5 11/28/18 06:05 12/15/18 06:04 12/01/18 13:41 Atropine Sulfate (Atropine 0.4mg/ ml) 0.4 mg Q5M PRN IVP HR<30 for 30 seconds 11/28/18 06:09 12/28/18 06:08 Bacitracin (Bacitracin 15gm tube) 1 applic BID TOPIC 12/01/18 18:00 12/31/18 17:59 12/07/18 09:33 Bisacodyl (Dulcolax) 10 mg DAILYPRN PRN RECTAL Constipation 11/28/18 06:05 12/18/18 06:04 Ceftazidime 2 gm/ Dextrose 110 ml @ 220 mls/hr Q8H IV 12/01/18 18:00 12/08/18 17:59 12/07/18 09:33 Dextrose (Dextrose 50%) 25 ml Q30M PRN IV Hypoglycemia 11/28/18 06:15 12/15/18 09:38 Dextrose (Dextrose 50%) 50 ml Q30M PRN IV Hypoglycemia 11/28/18 06:15 12/15/18 05:44 Insulin Aspart (NovoLOG) BEFORE MEALS AND HS SUBQ 11/28/18 06:30 12/15/18 06:29 12/07/18 05:50 Lansoprazole (Prevacid) 30 mg BID GT 11/28/18 18:00 12/28/18 17:59 12/07/18 09:31 Lorazepam (Ativan 2mg/ml 1ml) 0.5 mg Q2H PRN IV For Anxiety 12/05/18 14:56 12/12/18 14:55 12/07/18 05:37 Olanzapine (ZyPREXA Zydis) 7.5 mg DAILY GT 11/28/18 09:00 12/15/18 08:59 12/07/18 09:32 Anam Cruz MD Dec 07, 2018 12:04
--- NOTE | 2018-12-07 12:18 | Cardiac Electrophysiology PN ---
Assessment/Plan Assessment/Plan 1. S/P Septic shock with WBC 50,000 and lactic acid of 6. On IV antibiotic and IV fluid 2. S/P multiple episodes of asystole with pauses of more than 10 seconds off any MCGEE or AVN blockers. DW Son Mr. Faraz Erickson on 11/23/18 at [phone]. Family refused the pacer and DNR. On prn Atropine. Echo Nl EF. 3. Congestive heart failure with BNP of more than 17,000. BNP 3000 range now 4. Troponin elevation, likely due to renal failure and anemia and septic shock. The levels are flat. EKG does not show any ST elevation. 5. S/P Acute renal failure. Resolved BUN 15 and Cr now 0.8 6. Hypernatremia. Resolved. On D5W per Dr Fernandes 7. Ventilator-dependent respiratory failure, status post tracheostomy. 8. Dysphagia, status post PEG placement. 9. Profound anemia, hemoglobin of 6.5, rule out GI bleed. S/P blood transfusion and EGD . 10. Active hematuria, Fu Dr César CHOWDARY RN Subjective Subjective Still has hematuria .No pauses overnight Objective Last 24 Hour Vital Signs Date Time Temp Pulse Resp B/P (MAP) Pulse Ox O2 Delivery O2 Flow Rate FiO2 12/07/18 11:16 80 26 40 12/07/18 09:23 82 24 40 12/07/18 08:12 83 25 40 12/07/18 08:00 98.6 91 28 143/91 (108) 96 12/07/18 05:49 81 26 40 12/07/18 04:00 40 12/07/18 04:00 Mechanical Ventilator 12/07/18 04:00 98.9 78 25 142/55 (84) 96 12/07/18 03:57 79 23 40 12/07/18 03:51 78 12/07/18 01:25 78 23 40 12/07/18 00:00 Mechanical Ventilator 12/07/18 00:00 98.2 89 23 127/83 (98) 99 12/07/18 00:00 78 12/07/18 00:00 40 12/06/18 23:23 74 23 99 Mechanical Ventilator 40 71 24 40 12/06/18 20:45 71 24 99 Mechanical Ventilator 40 71 24 40 12/06/18 20:00 40 12/06/18 20:00 98.1 76 27 104/68 (80) 99 12/06/18 20:00 Mechanical Ventilator 12/06/18 19:51 78 12/06/18 18:50 81 26 40 12/06/18 17:31 78 30 40 12/06/18 16:00 91 12/06/18 16:00 98.9 83 25 131/82 (98) 94 12/06/18 16:00 40 12/06/18 16:00 Mechanical Ventilator 12/06/18 15:26 97 22 40 12/06/18 13:18 99 22 40 Intake and Output 12/06/18 12/07/18 18:59 06:59 Intake Total 1200 ml 1050 ml Output Total 100 ml 100 ml Balance 1100 ml 950 ml Intake Free Water 260 ml 250 ml IV Total 220 ml 110 ml Tube Feeding 660 ml 660 ml Other 60 ml 30 ml Output Urine Total 100 ml 100 ml # Bowel Movements 3 1 Laboratory Tests Test 12/07/18 03:05 White Blood Count 16.1 K/UL (4.8-10.8) H Red Blood Count 3.54 M/UL (4.70-6.10) L Hemoglobin 9.8 G/DL (14.2-18.0) L Hematocrit 30.6 % (42.0-52.0) L Mean Corpuscular Volume 86 FL (80-99) Mean Corpuscular Hemoglobin 27.6 PG (27.0-31.0) Mean Corpuscular Hemoglobin Concent 31.9 G/DL (32.0-36.0) L Red Cell Distribution Width 15.8 % (11.6-14.8) H Platelet Count 307 K/UL (150-450) Mean Platelet Volume 6.0 FL (6.5-10.1) L Neutrophils (%) (Auto) 74.6 % (45.0-75.0) Lymphocytes (%) (Auto) 10.2 % (20.0-45.0) L Monocytes (%) (Auto) 13.0 % (1.0-10.0) H Eosinophils (%) (Auto) 1.8 % (0.0-3.0) Basophils (%) (Auto) 0.4 % (0.0-2.0) Sodium Level 149 MMOL/L (136-145) H Potassium Level 4.7 MMOL/L (3.5-5.1) Chloride Level 112 MMOL/L (98-107) H Carbon Dioxide Level 35 MMOL/L (21-32) H Anion Gap 2 mmol/L (5-15) L Blood Urea Nitrogen 20 mg/dL (7-18) H Creatinine 0.9 MG/DL (0.55-1.30) Estimat Glomerular Filtration Rate mL/min (>60) Glucose Level 105 MG/DL (74-106) Calcium Level 8.2 MG/DL (8.5-10.1) L Total Bilirubin 0.3 MG/DL (0.2-1.0) Aspartate Amino Transf (AST/SGOT) 27 U/L (15-37) Alanine Aminotransferase (ALT/SGPT) 25 U/L (12-78) Alkaline Phosphatase 115 U/L (46-116) Total Protein 6.4 G/DL (6.4-8.2) Albumin 1.5 G/DL (3.4-5.0) L Globulin 4.9 g/dL Albumin/Globulin Ratio 0.3 (1.0-2.7) L Objective HEAD AND NECK: Tracheostomy intact. LUNGS: Coarse rhonchi. Decreased breath sounds CARDIOVASCULAR: Irregular irregular S1 and S2 with no gallop. ABDOMEN: Status post G-tube, distended. EXTREMITIES: Reveal 1+ edema. Luke Prather MD Dec 07, 2018 12:18
--- NOTE | 2018-12-07 15:34 | Surgery Progress Note ---
Surgery Progress Note Subjective Additional Comments labs noted exam stable hematuria flushes cont Objective Last 24 Hour Vital Signs Date Time Temp Pulse Resp B/P (MAP) Pulse Ox O2 Delivery O2 Flow Rate FiO2 12/07/18 13:22 73 26 40 12/07/18 12:00 40 12/07/18 12:00 98.9 87 28 145/89 (107) 95 12/07/18 11:34 74 12/07/18 11:16 80 26 40 12/07/18 09:23 82 24 40 12/07/18 08:12 83 25 40 12/07/18 08:00 40 12/07/18 08:00 98.6 91 28 143/91 (108) 96 12/07/18 07:57 84 12/07/18 05:49 81 26 40 12/07/18 04:00 40 12/07/18 04:00 Mechanical Ventilator 12/07/18 04:00 98.9 78 25 142/55 (84) 96 12/07/18 03:57 79 23 40 12/07/18 03:51 78 12/07/18 01:25 78 23 40 12/07/18 00:00 Mechanical Ventilator 12/07/18 00:00 98.2 89 23 127/83 (98) 99 12/07/18 00:00 78 12/07/18 00:00 40 12/06/18 23:23 74 23 99 Mechanical Ventilator 40 71 24 40 12/06/18 20:45 71 24 99 Mechanical Ventilator 40 71 24 40 12/06/18 20:00 40 12/06/18 20:00 98.1 76 27 104/68 (80) 99 12/06/18 20:00 Mechanical Ventilator 12/06/18 19:51 78 12/06/18 18:50 81 26 40 12/06/18 17:31 78 30 40 12/06/18 16:00 91 12/06/18 16:00 98.9 83 25 131/82 (98) 94 12/06/18 16:00 40 12/06/18 16:00 Mechanical Ventilator I&O Intake and Output 12/06/18 12/07/18 18:59 06:59 Intake Total 1200 ml 1050 ml Output Total 100 ml 100 ml Balance 1100 ml 950 ml Intake Free Water 260 ml 250 ml IV Total 220 ml 110 ml Tube Feeding 660 ml 660 ml Other 60 ml 30 ml Output Urine Total 100 ml 100 ml # Bowel Movements 3 1 Dressing: saturated Wound: other Drains: other Cardiovascular: RSR Respiratory: decreased breath sounds Abdomen: soft, present bowel sounds, non-distended Extremities: no cyanosis, other Laboratory Tests Test 12/07/18 03:05 White Blood Count 16.1 K/UL (4.8-10.8) H Red Blood Count 3.54 M/UL (4.70-6.10) L Hemoglobin 9.8 G/DL (14.2-18.0) L Hematocrit 30.6 % (42.0-52.0) L Mean Corpuscular Volume 86 FL (80-99) Mean Corpuscular Hemoglobin 27.6 PG (27.0-31.0) Mean Corpuscular Hemoglobin Concent 31.9 G/DL (32.0-36.0) L Red Cell Distribution Width 15.8 % (11.6-14.8) H Platelet Count 307 K/UL (150-450) Mean Platelet Volume 6.0 FL (6.5-10.1) L Neutrophils (%) (Auto) 74.6 % (45.0-75.0) Lymphocytes (%) (Auto) 10.2 % (20.0-45.0) L Monocytes (%) (Auto) 13.0 % (1.0-10.0) H Eosinophils (%) (Auto) 1.8 % (0.0-3.0) Basophils (%) (Auto) 0.4 % (0.0-2.0) Sodium Level 149 MMOL/L (136-145) H Potassium Level 4.7 MMOL/L (3.5-5.1) Chloride Level 112 MMOL/L (98-107) H Carbon Dioxide Level 35 MMOL/L (21-32) H Anion Gap 2 mmol/L (5-15) L Blood Urea Nitrogen 20 mg/dL (7-18) H Creatinine 0.9 MG/DL (0.55-1.30) Estimat Glomerular Filtration Rate mL/min (>60) Glucose Level 105 MG/DL (74-106) Calcium Level 8.2 MG/DL (8.5-10.1) L Total Bilirubin 0.3 MG/DL (0.2-1.0) Aspartate Amino Transf (AST/SGOT) 27 U/L (15-37) Alanine Aminotransferase (ALT/SGPT) 25 U/L (12-78) Alkaline Phosphatase 115 U/L (46-116) Total Protein 6.4 G/DL (6.4-8.2) Albumin 1.5 G/DL (3.4-5.0) L Globulin 4.9 g/dL Albumin/Globulin Ratio 0.3 (1.0-2.7) L Plan Problems: (1) Severe sepsis Assessment & Plan: leukocytosis, anemia, lactic acidosis, fevers IV Abx imaging noted and reviewed US with no stones or dilated ducts elevated lft's likely due to liver disease exam as below cont abx trend labs leave crabtree for a few weeks Overall prognosis very guarded Continue with current care Transfuse as needed Plan to be seen by urologist for hematuria thank you will follow with recs Findings: Exam is somewhat limited, due to gastrostomy tube and overlying bowel gas limiting visualization of the abdominal aorta Gallbladder is unremarkable, without stones, wall thickening, nor pericholecystic fluid. Sonographic Carl's sign is negative. Common bile duct measures 4 mm in diameter. No intrahepatic biliary ductal dilatation. Liver demonstrates normal echogenicity, no focal abnormality. It demonstrates slight surface nodularity. It is enlarged. There is a 1 cm cyst which appears adjacent to the gallbladder wall. This is probably a small exophytic hepatic cyst. Portal vein and hepatic veins are patent. Pancreas is unremarkable. Spleen is unremarkable. Left kidney measures 9.2 cm in length. Right kidney measures 10.2 cm length. Both kidneys demonstrate normal echogenicity. There is no hydronephrosis. Both kidneys demonstrate cysts. . Abdominal aorta is partially obscured by bowel gas, visualized portions are non-aneurysmal . Impression: Negative for gallstones or dilated bile ducts Hepatic surface nodularity, may indicate early cirrhotic changes Hepatomegaly Incidental finding bilateral renal cysts (2) Malnutrition Assessment & Plan: DAILY ESTIMATED NEEDS: Needs based on Critical care, sepsis 71.8 kg 22-30 kcals/kg 2142-6114 total kcals 1.2-2 g protein/kg 86- 144 g total protein 25-30 mL/kg 1795- 2154 total fluid mLs NUTRITION DIAGNOSIS: * Swallowing difficulty R/T respiratory status and dysphagia as evidenced by pt is vent dep, on TF. * Altered nutrition related lab values r/t sepsis, clinical status, h/o Diabetes as evidenced by critically elev WBC (47.2), low Hgb (6.6), elev BNP, low BP (96/41), BG 191, POC 179. CURRENT TF: Jevity 1.2 @ 70mL/hr x 20hr - NOW NPO ENTERAL NUTRITION RECOMMENDATIONS: Vital 1.2 @55mL/hr x24 hrs to provide 1320mL, 1584kcal, 99g pro, 1071mL free H2O * As medically appropriate to feed, rec TF change to VITAL 1.2 for critical care. * Start Vital 1,2, @25mL, advance as tolerated 10ml/hr q4-6 hrs to goal * HOB over 30 degrees/ water flush per MD --- Low Hgb (6.6), NPO per GI-> rec trophic feeds when appropriate if pt remains hypotensive. ADDITIONAL RECOMMENDATIONS: * Per SNF: HT 68 inches WT 158 lbs + Daily calibrated bed scale wts * Change TF to Vital 1.2, as medically able to feed * Monitor lytes (replete as needed) * F/up w/ WC eval . (3) Sacral decubitus ulcer Assessment & Plan: Pt presented on admission with contractures and multiple pressure injuries. Partially opened DTPI L buttocks. Base of wound moist - viable with surrounding dark and fluctuant borders.(L)1.2cm x (W)1cm. Small amt of sanguineous exudate noted. No odor noted. Hyperpigmentation noted to sacrum. Historical scar from previous wound noted to L trochanter. Penile head retracted within foreskin and small wound noted within folds of foreskin. Wound is moist and viable. No odor or exudate noted. No erythema noted periwound. Resolving pressure injury plantar R heel. Base of wound 50% epithelialized, 50% moist and viable.(L)5.5cm x (W)6.5cm. Resolving pressure injury lateral L heel. Base of wound is moist and viable with surrounding hyperpigmentation.(L)0.6cm x (W)0.5cm. Scattered loose, dry brown skin noted to medial and posterior L heel. Tx.Plan: Apply Moisture Barrier Paste to L buttocks and sacrum. Cover with Optifoam drsg. Change every 3 days and prn. Cleanse head of penis with soap and water. Apply Bacitracin oint Twice Daily. Apply Betadine to R and L heel wounds. Cover each heel with Optifoam drsg. Daily and prn. APM/ABDELRAHMAN Mattress overlay. Reposition at least every 2hours and prn. Off-load heels with pillow. Don Carvalho Dec 07, 2018 15:34
[2018-12-07 16:00] VITALS: BP 165/74
--- NOTE | 2018-12-07 16:09 | Pulmonology Progress Note ---
Assessment/Plan Assessment/Plan Pulmonary Progress Note Assessment/Plan Impression: Patient with Pneumonia - KPC/Acinetobacter/MDR pseudomonas, Proteus Ventilator dependant respiratory failure, stable Pulmonary Status Severe sepsis - improved Leucocytosis NSTEMI Anemia sp TFN Dysphagia s/p G tube Chronic wounds Dementia Organic Brain Syndrome Diabetes Chronic renal disease BPH Penile wound Hematuria - Urology following CHF H/o Hypertension Severe Protein Calorie Malnutrition Plan antibiotic regimen per ID monitor blood pressure HHN Q4 and monitor secretions and suction PRN on full vent support-AC- no wean transfuse PRN DNAR multiorgan disease with poor prognosis monitor oxygen needs- and adjust monitor labs DVT and PUD prophylaxis Gtube feeds as able; monitor residuals and reflux aspiration monitor residuals for change will need termite technician care medications/laboratory data/nursing notes reviewed in detail note reviewed and edited care discussed with RN and RT Interval Events: care noted vitals stable poor LOC f ROS Limited/Unobtainable: Yes Condition: critical EKG Rhythm: Sinus Rhythm Residuals: minimal Tube Feeding Tolerated: yes Vital Signs Noted Labs Noted CXR: Impression: Unchanged Objective: WDWN NAD on vent and poorly responsive reduced breath sounds bilaterally with noted rhonchi [id number] without MRG NABS nontender no HSM; GT; non distended no CC mild edema nonfocal reduced LOC skin noted reviewed and edited Sputum: Organism 1 K.PNEUMONIAE CARBAPENEM RESIST GROWTH: 4+ only sens Colistin Organism 2 A.BAUMANII COMPLX - MDR GROWTH: 4+ Organism 3 PSEUDOMONAS AERUGINOSA GROWTH: 4+ Organism 4 PROTEUS MIRABILIS GROWTH: 4+ Subjective ROS Limited/Unobtainable: No Allergies: Coded Allergies: TERAZOSIN (Verified Allergy, Unknown, 10/27/17) Objective Last 24 Hour Vital Signs Date Time Temp Pulse Resp B/P (MAP) Pulse Ox O2 Delivery O2 Flow Rate FiO2 12/07/18 15:30 99 38 40 12/07/18 13:22 73 26 40 12/07/18 12:00 40 12/07/18 12:00 98.9 87 28 145/89 (107) 95 12/07/18 11:34 74 12/07/18 11:16 80 26 40 12/07/18 09:23 82 24 40 12/07/18 08:12 83 25 40 12/07/18 08:00 40 12/07/18 08:00 98.6 91 28 143/91 (108) 96 12/07/18 07:57 84 12/07/18 05:49 81 26 40 12/07/18 04:00 40 12/07/18 04:00 Mechanical Ventilator 12/07/18 04:00 98.9 78 25 142/55 (84) 96 12/07/18 03:57 79 23 40 12/07/18 03:51 78 12/07/18 01:25 78 23 40 12/07/18 00:00 Mechanical Ventilator 12/07/18 00:00 98.2 89 23 127/83 (98) 99 12/07/18 00:00 78 12/07/18 00:00 40 12/06/18 23:23 74 23 99 Mechanical Ventilator 40 71 24 40 12/06/18 20:45 71 24 99 Mechanical Ventilator 40 71 24 40 12/06/18 20:00 40 12/06/18 20:00 98.1 76 27 104/68 (80) 99 12/06/18 20:00 Mechanical Ventilator 12/06/18 19:51 78 12/06/18 18:50 81 26 40 12/06/18 17:31 78 30 40 Intake and Output 12/06/18 12/07/18 18:59 06:59 Intake Total 1200 ml 1050 ml Output Total 100 ml 100 ml Balance 1100 ml 950 ml Intake Free Water 260 ml 250 ml IV Total 220 ml 110 ml Tube Feeding 660 ml 660 ml Other 60 ml 30 ml Output Urine Total 100 ml 100 ml # Bowel Movements 3 1 Laboratory Tests 12/07/18 03:05: White Blood Count 16.1H, Red Blood Count 3.54L, Hemoglobin 9.8L, Hematocrit 30.6L, Mean Corpuscular Volume 86, Mean Corpuscular Hemoglobin 27.6, Mean Corpuscular Hemoglobin Concent 31.9L, Red Cell Distribution Width 15.8H, Platelet Count 307, Mean Platelet Volume 6.0L, Neutrophils (%) (Auto) 74.6, Lymphocytes (%) (Auto) 10.2L, Monocytes (%) (Auto) 13.0H, Eosinophils (%) (Auto ) 1.8, Basophils (%) (Auto) 0.4, Sodium Level 149H, Potassium Level 4.7, Chloride Level 112H, Carbon Dioxide Level 35H, Anion Gap 2L, Blood Urea Nitrogen 20H, Creatinine 0.9, Estimat Glomerular Filtration Rate , Glucose Level 105, Calcium Level 8.2L, Total Bilirubin 0.3, Aspartate Amino Transf (AST/ SGOT) 27, Alanine Aminotransferase (ALT/SGPT) 25, Alkaline Phosphatase 115, Total Protein 6.4, Albumin 1.5L, Globulin 4.9, Albumin/Globulin Ratio 0.3L Current Medications Medications (Trade) Dose Ordered Sig/Ruthie Route PRN Reason Start Time Stop Time Status Last Admin Dose Admin Acetaminophen (Tylenol) 650 mg Q6H PRN GT Mild Pain/Temp > 100.5 11/28/18 06:05 12/15/18 06:04 12/01/18 13:41 Atropine Sulfate (Atropine 0.4mg/ ml) 0.4 mg Q5M PRN IVP HR<30 for 30 seconds 11/28/18 06:09 12/28/18 06:08 Bacitracin (Bacitracin 15gm tube) 1 applic BID TOPIC 12/01/18 18:00 12/31/18 17:59 12/07/18 09:33 Bisacodyl (Dulcolax) 10 mg DAILYPRN PRN RECTAL Constipation 11/28/18 06:05 12/18/18 06:04 Ceftazidime 2 gm/ Dextrose 110 ml @ 220 mls/hr Q8H IV 12/01/18 18:00 12/08/18 23:59 12/07/18 09:33 Dextrose (Dextrose 50%) 25 ml Q30M PRN IV Hypoglycemia 11/28/18 06:15 12/15/18 09:38 Dextrose (Dextrose 50%) 50 ml Q30M PRN IV Hypoglycemia 11/28/18 06:15 12/15/18 05:44 Insulin Aspart (NovoLOG) BEFORE MEALS AND HS SUBQ 11/28/18 06:30 12/15/18 06:29 12/07/18 05:50 Lansoprazole (Prevacid) 30 mg BID GT 11/28/18 18:00 12/28/18 17:59 12/07/18 09:31 Lorazepam (Ativan 2mg/ml 1ml) 0.5 mg Q2H PRN IV For Anxiety 12/05/18 14:56 12/12/18 14:55 12/07/18 05:37 Olanzapine (ZyPREXA Zydis) 7.5 mg DAILY GT 11/28/18 09:00 12/15/18 08:59 12/07/18 09:32 Booker Baumann MD Dec 07, 2018 16:09
[2018-12-07 20:00] VITALS: BP 161/80
--- NOTE | 2018-12-07 21:04 | General Progress Note ---
Assessment/Plan Problem List: (1) Hypernatremia ICD Codes: E87.0 - Hyperosmolality and hypernatremia SNOMED: 74655869 (2) Rhabdomyolysis ICD Codes: M62.82 - Rhabdomyolysis SNOMED: 935053641 (3) Sacral decubitus ulcer ICD Codes: L89.159 - Pressure ulcer of sacral region, unspecified stage SNOMED: 834475703 (4) Severe sepsis ICD Codes: A41.9 - Sepsis, unspecified organism; R65.20 - Severe sepsis without septic shock SNOMED: 20562317 (5) Septic shock ICD Codes: A41.9 - Sepsis, unspecified organism; R65.21 - Severe sepsis with septic shock SNOMED: 48475911 (6) DM (7) Anemia ICD Codes: D64.9 - Anemia, unspecified SNOMED: 572390563 (8) Prostate enlargement ICD Codes: N40.0 - Benign prostatic hyperplasia without lower urinary tract symptoms SNOMED: 230692050 (9) Chronic renal disease ICD Codes: N18.9 - Chronic kidney disease, unspecified SNOMED: 289341689 (10) Ventilator dependence ICD Codes: Z99.11 - Dependence on respirator [ventilator] status SNOMED: 305108802 (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 - Gastrostomy status SNOMED: 813246672, 878870257 (12) Malnutrition ICD Codes: E46 - Unspecified protein-calorie malnutrition SNOMED: 43261373 Status: stable, progressing, unchanged Assessment/Plan: anemia improved s/p transfusion on isolation for polymicrobial pna junctional rhythem edema diarhea bph chf Subjective ROS Limited/Unobtainable: Yes Allergies: Coded Allergies: TERAZOSIN (Verified Allergy, Unknown, 10/27/17) Objective Last 24 Hour Vital Signs Date Time Temp Pulse Resp B/P (MAP) Pulse Ox O2 Delivery O2 Flow Rate FiO2 12/07/18 20:59 102 30 40 12/07/18 18:45 112 32 40 12/07/18 17:20 94 32 40 12/07/18 16:00 Mechanical Ventilator 12/07/18 16:00 40 12/07/18 16:00 99.0 102 28 165/74 (104) 94 12/07/18 16:00 101 12/07/18 15:30 99 38 40 12/07/18 13:22 73 26 40 12/07/18 12:00 Mechanical Ventilator 12/07/18 12:00 40 12/07/18 12:00 98.9 87 28 145/89 (107) 95 12/07/18 11:34 74 12/07/18 11:16 80 26 40 12/07/18 09:23 82 24 40 12/07/18 08:12 83 25 40 12/07/18 08:00 40 12/07/18 08:00 Mechanical Ventilator 12/07/18 08:00 98.6 91 28 143/91 (108) 96 12/07/18 07:57 84 12/07/18 05:49 81 26 40 12/07/18 04:00 40 12/07/18 04:00 Mechanical Ventilator 12/07/18 04:00 98.9 78 25 142/55 (84) 96 12/07/18 03:57 79 23 40 12/07/18 03:51 78 12/07/18 01:25 78 23 40 12/07/18 00:00 Mechanical Ventilator 12/07/18 00:00 98.2 89 23 127/83 (98) 99 12/07/18 00:00 78 12/07/18 00:00 40 12/06/18 23:23 74 23 99 Mechanical Ventilator 40 71 24 40 Intake and Output 12/06/18 12/07/18 19:00 07:00 Intake Total 1250 ml 1000 ml Output Total 100 ml 100 ml Balance 1150 ml 900 ml Intake Free Water 310 ml 200 ml IV Total 220 ml 110 ml Tube Feeding 660 ml 660 ml Other 60 ml 30 ml Output Urine Total 100 ml 100 ml # Bowel Movements 3 1 Laboratory Tests 12/07/18 03:05: White Blood Count 16.1H, Red Blood Count 3.54L, Hemoglobin 9.8L, Hematocrit 30.6L, Mean Corpuscular Volume 86, Mean Corpuscular Hemoglobin 27.6, Mean Corpuscular Hemoglobin Concent 31.9L, Red Cell Distribution Width 15.8H, Platelet Count 307, Mean Platelet Volume 6.0L, Neutrophils (%) (Auto) 74.6, Lymphocytes (%) (Auto) 10.2L, Monocytes (%) (Auto) 13.0H, Eosinophils (%) (Auto ) 1.8, Basophils (%) (Auto) 0.4, Sodium Level 149H, Potassium Level 4.7, Chloride Level 112H, Carbon Dioxide Level 35H, Anion Gap 2L, Blood Urea Nitrogen 20H, Creatinine 0.9, Estimat Glomerular Filtration Rate , Glucose Level 105, Calcium Level 8.2L, Total Bilirubin 0.3, Aspartate Amino Transf (AST/ SGOT) 27, Alanine Aminotransferase (ALT/SGPT) 25, Alkaline Phosphatase 115, Total Protein 6.4, Albumin 1.5L, Globulin 4.9, Albumin/Globulin Ratio 0.3L Height (Feet): 5 Height (Inches): 5.00 Weight (Pounds): 203 Cardiovascular: normal rate Abdomen: soft Trish Matias MD Dec 07, 2018 21:03
[2018-12-08] VITALS: BP 149/90
[2018-12-08] MEDS: Acetaminophen 650mg/20.3ml GT PRN ×2 (00:05→20:23)
[2018-12-08] MEDS: CefTAZidime 2 GM in D5W 110 ML IV SCH ×3 (02:03→18:09)
[2018-12-08 04:00] VITALS: BP 158/68
[2018-12-08 05:57] LABS: HEMATOCRIT 31.2 % (42.0-52.0); HEMOGLOBIN 9.8 G/DL (14.2-18.0); MEAN CORPUSCULAR VOLUME 87 FL (80-99); PLATELET COUNT 314 K/UL (150-450); RED BLOOD COUNT 3.58 M/UL (4.70-6.10); RED CELL DISTRIBUTION WIDTH 15.9 % (11.6-14.8)
[2018-12-08 05:59] LABS: WHITE BLOOD COUNT 32.7 K/UL (4.8-10.8)
[2018-12-08] MEDS: NovoLOG Insulin Flexpen SUBQ SCH ×3 (06:12→18:00)
[2018-12-08 08:00] VITALS: BP 151/65
[2018-12-08] MEDS: Bacitracin Oint 15gm Tube TOPIC SCH ×2 (09:09→18:09)
[2018-12-08] MEDS: ZyPREXA Zydis 5mg tab GT SCH (09:10)
--- NOTE | 2018-12-08 10:34 | Nephrology Progress Note ---
Assessment/Plan Problem List: (1) Hematuria Assessment: persistant (2) Septic shock Assessment: WBCs rising (3) Ventilator dependence (4) Renal failure (ARF), acute on chronic (5) Prostate enlargement (6) Anemia (7) Hyperosmolality with hypernatremia Assessment Septic Shock Acute renal failure CKD underlying BPH Sever Anemia Chronic trach-Vent DM HypoAlbuminemia HyperNatremia Dementia Troponin elevation Plan doing poorly transfused WBC kevin and has hematuria ! Anemia worsened, transfused Patient DNR , but not comfort care Will discuss the plan of care D5W for hyperNatremia now in SDU family agreed to DNR labs reviewed- mag IV as needed avoid Nephrotoxics transfuse as needed crabtree monitor urine out put and renal parameters per orders Subjective ROS Limited/Unobtainable: Yes Objective Objective Last 24 Hour Vital Signs Date Time Temp Pulse Resp B/P (MAP) Pulse Ox O2 Delivery O2 Flow Rate FiO2 12/08/18 08:30 87 26 40 12/08/18 08:00 88 12/08/18 08:00 99.9 92 20 151/65 (93) 95 12/08/18 08:00 Mechanical Ventilator 12/08/18 08:00 40 12/08/18 06:53 107 31 40 12/08/18 04:46 102 28 40 12/08/18 04:00 Mechanical Ventilator 12/08/18 04:00 100.0 95 26 158/68 (98) 94 12/08/18 04:00 40 12/08/18 03:40 84 12/08/18 02:52 93 26 40 12/08/18 01:01 88 22 40 12/08/18 00:35 100.9 12/08/18 00:00 101.3 105 26 149/90 (109) 95 12/08/18 00:00 Mechanical Ventilator 12/08/18 00:00 103 12/07/18 23:13 89 20 40 12/07/18 20:59 102 30 40 12/07/18 20:00 105 12/07/18 20:00 40 12/07/18 20:00 Mechanical Ventilator 12/07/18 20:00 98.6 113 26 161/80 (107) 95 12/07/18 18:45 112 32 40 12/07/18 17:20 94 32 40 12/07/18 16:00 Mechanical Ventilator 12/07/18 16:00 40 12/07/18 16:00 99.0 102 28 165/74 (104) 94 12/07/18 16:00 101 12/07/18 15:30 99 38 40 12/07/18 13:22 73 26 40 12/07/18 12:00 Mechanical Ventilator 12/07/18 12:00 40 12/07/18 12:00 98.9 87 28 145/89 (107) 95 12/07/18 11:34 74 12/07/18 11:16 80 26 40 Intake and Output 12/07/18 12/08/18 19:00 07:00 Intake Total 940 ml 820 ml Output Total 352 ml 70 ml Balance 588 ml 750 ml Intake Free Water 100 ml 100 ml IV Total 110 ml Tube Feeding 660 ml 550 ml Other 180 ml 60 ml Output Urine Total 350 ml 70 ml Stool Total 2 ml Laboratory Tests 12/08/18 03:50: White Blood Count 32.7#*H, Red Blood Count 3.58L, Hemoglobin 9.8L, Hematocrit 31.2L, Mean Corpuscular Volume 87, Mean Corpuscular Hemoglobin 27.3, Mean Corpuscular Hemoglobin Concent 31.3L, Red Cell Distribution Width 15.9H, Platelet Count 314, Mean Platelet Volume 6.2L, Neutrophils (%) (Auto) , Lymphocytes (%) (Auto) , Monocytes (%) (Auto) , Eosinophils (%) (Auto) , Basophils (%) (Auto) , Differential Total Cells Counted 100, Neutrophils % ( Manual) 85H, Lymphocytes % (Manual) 2L, Monocytes % (Manual) 10, Eosinophils % ( Manual) 0, Basophils % (Manual) 1, Band Neutrophils 2, Platelet Estimate Adequate, Platelet Morphology Normal, Hypochromasia 1+, Anisocytosis 1+ Height (Feet): 5 Height (Inches): 5.00 Weight (Pounds): 201 General Appearance: no apparent distress Cardiovascular: tachycardia Respiratory/Chest: decreased breath sounds Abdomen: distended Objective no change Randolph Fernandes MD Dec 08, 2018 10:34
--- NOTE | 2018-12-08 11:20 | Surgery Progress Note ---
Surgery Progress Note Subjective Additional Comments worsening leukocytosis diarrhea hematuria labs noted check c diff pending Objective Last 24 Hour Vital Signs Date Time Temp Pulse Resp B/P (MAP) Pulse Ox O2 Delivery O2 Flow Rate FiO2 12/08/18 08:30 87 26 40 12/08/18 08:00 88 12/08/18 08:00 99.9 92 20 151/65 (93) 95 12/08/18 08:00 Mechanical Ventilator 12/08/18 08:00 40 12/08/18 06:53 107 31 40 12/08/18 04:46 102 28 40 12/08/18 04:00 Mechanical Ventilator 12/08/18 04:00 100.0 95 26 158/68 (98) 94 12/08/18 04:00 40 12/08/18 03:40 84 12/08/18 02:52 93 26 40 12/08/18 01:01 88 22 40 12/08/18 00:35 100.9 12/08/18 00:00 101.3 105 26 149/90 (109) 95 12/08/18 00:00 Mechanical Ventilator 12/08/18 00:00 103 12/07/18 23:13 89 20 40 12/07/18 20:59 102 30 40 12/07/18 20:00 105 12/07/18 20:00 40 12/07/18 20:00 Mechanical Ventilator 12/07/18 20:00 98.6 113 26 161/80 (107) 95 12/07/18 18:45 112 32 40 12/07/18 17:20 94 32 40 12/07/18 16:00 Mechanical Ventilator 12/07/18 16:00 40 12/07/18 16:00 99.0 102 28 165/74 (104) 94 12/07/18 16:00 101 12/07/18 15:30 99 38 40 12/07/18 13:22 73 26 40 12/07/18 12:00 Mechanical Ventilator 12/07/18 12:00 40 12/07/18 12:00 98.9 87 28 145/89 (107) 95 12/07/18 11:34 74 I&O Intake and Output 12/07/18 12/08/18 19:00 07:00 Intake Total 940 ml 820 ml Output Total 352 ml 70 ml Balance 588 ml 750 ml Intake Free Water 100 ml 100 ml IV Total 110 ml Tube Feeding 660 ml 550 ml Other 180 ml 60 ml Output Urine Total 350 ml 70 ml Stool Total 2 ml Dressing: saturated Wound: other Drains: other Cardiovascular: RSR Respiratory: decreased breath sounds Abdomen: soft, present bowel sounds, non-distended Extremities: edema, no cyanosis Laboratory Tests Test 12/08/18 03:50 White Blood Count 32.7 K/UL (4.8-10.8) #*H Red Blood Count 3.58 M/UL (4.70-6.10) L Hemoglobin 9.8 G/DL (14.2-18.0) L Hematocrit 31.2 % (42.0-52.0) L Mean Corpuscular Volume 87 FL (80-99) Mean Corpuscular Hemoglobin 27.3 PG (27.0-31.0) Mean Corpuscular Hemoglobin Concent 31.3 G/DL (32.0-36.0) L Red Cell Distribution Width 15.9 % (11.6-14.8) H Platelet Count 314 K/UL (150-450) Mean Platelet Volume 6.2 FL (6.5-10.1) L Neutrophils (%) (Auto) % (45.0-75.0) Lymphocytes (%) (Auto) % (20.0-45.0) Monocytes (%) (Auto) % (1.0-10.0) Eosinophils (%) (Auto) % (0.0-3.0) Basophils (%) (Auto) % (0.0-2.0) Differential Total Cells Counted 100 Neutrophils % (Manual) 85 % (45-75) H Lymphocytes % (Manual) 2 % (20-45) L Monocytes % (Manual) 10 % (1-10) Eosinophils % (Manual) 0 % (0-3) Basophils % (Manual) 1 % (0-2) Band Neutrophils 2 % (0-8) Platelet Estimate Adequate Platelet Morphology Normal Hypochromasia 1+ Anisocytosis 1+ Plan Problems: (1) Severe sepsis Assessment & Plan: leukocytosis, anemia, lactic acidosis, fevers IV Abx imaging noted and reviewed US with no stones or dilated ducts elevated lft's likely due to liver disease exam as below cont abx trend labs leave [place] for a few weeks Overall prognosis very guarded Continue with current care Transfuse as needed Plan to be seen by urologist for hematuria check c diff imaging ordered thank you will follow with recs Findings: Exam is somewhat limited, due to gastrostomy tube and overlying bowel gas limiting visualization of the abdominal aorta Gallbladder is unremarkable, without stones, wall thickening, nor pericholecystic fluid. Sonographic Carl's sign is negative. Common bile duct measures 4 mm in diameter. No intrahepatic biliary ductal dilatation. Liver demonstrates normal echogenicity, no focal abnormality. It demonstrates slight surface nodularity. It is enlarged. There is a 1 cm cyst which appears adjacent to the gallbladder wall. This is probably a small exophytic hepatic cyst. Portal vein and hepatic veins are patent. Pancreas is unremarkable. Spleen is unremarkable. Left kidney measures 9.2 cm in length. Right kidney measures 10.2 cm length. Both kidneys demonstrate normal echogenicity. There is no hydronephrosis. Both kidneys demonstrate cysts. . Abdominal aorta is partially obscured by bowel gas, visualized portions are non-aneurysmal . Impression: Negative for gallstones or dilated bile ducts Hepatic surface nodularity, may indicate early cirrhotic changes Hepatomegaly Incidental finding bilateral renal cysts (2) Malnutrition Assessment & Plan: DAILY ESTIMATED NEEDS: Needs based on Critical care, sepsis 71.8 kg 22-30 kcals/kg 1764-2969 total kcals 1.2-2 g protein/kg 86- 144 g total protein 25-30 mL/kg 1795- 2154 total fluid mLs NUTRITION DIAGNOSIS: * Swallowing difficulty R/T respiratory status and dysphagia as evidenced by pt is vent dep, on TF. * Altered nutrition related lab values r/t sepsis, clinical status, h/o Diabetes as evidenced by critically elev WBC (47.2), low Hgb (6.6), elev BNP, low BP (96/41), BG 191, POC 179. CURRENT TF: Jevity 1.2 @ 70mL/hr x 20hr - NOW NPO ENTERAL NUTRITION RECOMMENDATIONS: Vital 1.2 @55mL/hr x24 hrs to provide 1320mL, 1584kcal, 99g pro, 1071mL free H2O * As medically appropriate to feed, rec TF change to VITAL 1.2 for critical care. * Start Vital 1,2, @25mL, advance as tolerated 10ml/hr q4-6 hrs to goal * HOB over 30 degrees/ water flush per MD --- Low Hgb (6.6), NPO per GI-> rec trophic feeds when appropriate if pt remains hypotensive. ADDITIONAL RECOMMENDATIONS: * Per SNF: HT 68 inches WT 158 lbs + Daily calibrated bed scale wts * Change TF to Vital 1.2, as medically able to feed * Monitor lytes (replete as needed) * F/up w/ WC eval . (3) Sacral decubitus ulcer Assessment & Plan: Pt presented on admission with contractures and multiple pressure injuries. Partially opened DTPI L buttocks. Base of wound moist - viable with surrounding dark and fluctuant borders.(L)1.2cm x (W)1cm. Small amt of sanguineous exudate noted. No odor noted. Hyperpigmentation noted to sacrum. Historical scar from previous wound noted to L trochanter. Penile head retracted within foreskin and small wound noted within folds of foreskin. Wound is moist and viable. No odor or exudate noted. No erythema noted periwound. Resolving pressure injury plantar R heel. Base of wound 50% epithelialized, 50% moist and viable.(L)5.5cm x (W)6.5cm. Resolving pressure injury lateral L heel. Base of wound is moist and viable with surrounding hyperpigmentation.(L)0.6cm x (W)0.5cm. Scattered loose, dry brown skin noted to medial and posterior L heel. Tx.Plan: Apply Moisture Barrier Paste to L buttocks and sacrum. Cover with Optifoam drsg. Change every 3 days and prn. Cleanse head of penis with soap and water. Apply Bacitracin oint Twice Daily. Apply Betadine to R and L heel wounds. Cover each heel with Optifoam drsg. Daily and prn. APM/ABDELRAHMAN Mattress overlay. Reposition at least every 2hours and prn. Off-load heels with pillow. Don Carvalho Dec 08, 2018 11:20
[2018-12-08 12:00] VITALS: BP 141/61
[2018-12-08] MEDS ORDERED: NS Irrig 1000ml ONE (13:45)
[2018-12-08] MEDS ORDERED: Tubing IV Secondary IV ONE (13:45)
[2018-12-08] MEDS ORDERED: NS 275ml ONE (13:45)
--- NOTE | 2018-12-08 14:57 | General Progress Note ---
Assessment/Plan Problem List: (1) Hypernatremia ICD Codes: E87.0 - Hyperosmolality and hypernatremia SNOMED: 23392173 (2) Rhabdomyolysis ICD Codes: M62.82 - Rhabdomyolysis SNOMED: 579079392 (3) Sacral decubitus ulcer ICD Codes: L89.159 - Pressure ulcer of sacral region, unspecified stage SNOMED: 794524071 (4) Severe sepsis ICD Codes: A41.9 - Sepsis, unspecified organism; R65.20 - Severe sepsis without septic shock SNOMED: 58244200 (5) Septic shock ICD Codes: A41.9 - Sepsis, unspecified organism; R65.21 - Severe sepsis with septic shock SNOMED: 36864401 (6) DM (7) Anemia ICD Codes: D64.9 - Anemia, unspecified SNOMED: 210164306 (8) Prostate enlargement ICD Codes: N40.0 - Benign prostatic hyperplasia without lower urinary tract symptoms SNOMED: 678507362 (9) Chronic renal disease ICD Codes: N18.9 - Chronic kidney disease, unspecified SNOMED: 360291152 (10) Ventilator dependence ICD Codes: Z99.11 - Dependence on respirator [ventilator] status SNOMED: 610017600 (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 - Gastrostomy status SNOMED: 851029891, 360872412 (12) Malnutrition ICD Codes: E46 - Unspecified protein-calorie malnutrition SNOMED: 06405953 Status: stable, progressing, unchanged Assessment/Plan: anemia improved s/p transfusion on isolation for polymicrobial pna no wheezing reviewed chart and labs Subjective ROS Limited/Unobtainable: Yes Allergies: Coded Allergies: TERAZOSIN (Verified Allergy, Unknown, 10/27/17) Objective Last 24 Hour Vital Signs Date Time Temp Pulse Resp B/P (MAP) Pulse Ox O2 Delivery O2 Flow Rate FiO2 12/08/18 13:38 92 24 40 12/08/18 12:00 40 12/08/18 12:00 Mechanical Ventilator 12/08/18 12:00 84 12/08/18 12:00 100.1 85 20 141/61 (87) 97 12/08/18 11:38 89 26 40 12/08/18 08:30 87 26 40 12/08/18 08:00 88 12/08/18 08:00 99.9 92 20 151/65 (93) 95 12/08/18 08:00 Mechanical Ventilator 12/08/18 08:00 40 12/08/18 06:53 107 31 40 12/08/18 04:46 102 28 40 12/08/18 04:00 Mechanical Ventilator 12/08/18 04:00 100.0 95 26 158/68 (98) 94 12/08/18 04:00 40 12/08/18 03:40 84 12/08/18 02:52 93 26 40 12/08/18 01:01 88 22 40 12/08/18 00:35 100.9 12/08/18 00:00 101.3 105 26 149/90 (109) 95 12/08/18 00:00 Mechanical Ventilator 12/08/18 00:00 103 12/07/18 23:13 89 20 40 12/07/18 20:59 102 30 40 12/07/18 20:00 105 12/07/18 20:00 40 12/07/18 20:00 Mechanical Ventilator 12/07/18 20:00 98.6 113 26 161/80 (107) 95 12/07/18 18:45 112 32 40 12/07/18 17:20 94 32 40 12/07/18 16:00 Mechanical Ventilator 12/07/18 16:00 40 12/07/18 16:00 99.0 102 28 165/74 (104) 94 12/07/18 16:00 101 12/07/18 15:30 99 38 40 Intake and Output 12/07/18 12/08/18 19:00 07:00 Intake Total 940 ml 820 ml Output Total 352 ml 70 ml Balance 588 ml 750 ml Intake Free Water 100 ml 100 ml IV Total 110 ml Tube Feeding 660 ml 550 ml Other 180 ml 60 ml Output Urine Total 350 ml 70 ml Stool Total 2 ml Laboratory Tests 12/08/18 03:50: White Blood Count 32.7#*H, Red Blood Count 3.58L, Hemoglobin 9.8L, Hematocrit 31.2L, Mean Corpuscular Volume 87, Mean Corpuscular Hemoglobin 27.3, Mean Corpuscular Hemoglobin Concent 31.3L, Red Cell Distribution Width 15.9H, Platelet Count 314, Mean Platelet Volume 6.2L, Neutrophils (%) (Auto) , Lymphocytes (%) (Auto) , Monocytes (%) (Auto) , Eosinophils (%) (Auto) , Basophils (%) (Auto) , Differential Total Cells Counted 100, Neutrophils % ( Manual) 85H, Lymphocytes % (Manual) 2L, Monocytes % (Manual) 10, Eosinophils % ( Manual) 0, Basophils % (Manual) 1, Band Neutrophils 2, Platelet Estimate Adequate, Platelet Morphology Normal, Hypochromasia 1+, Anisocytosis 1+ Height (Feet): 5 Height (Inches): 5.00 Weight (Pounds): 201 Respiratory/Chest: lungs clear Abdomen: soft Trish Matias MD Dec 08, 2018 14:57
--- NOTE | 2018-12-08 15:33 | Cardiac Electrophysiology PN ---
Assessment/Plan Assessment/Plan 1. S/P Septic shock with WBC 50,000 and lactic acid of 6. On IV antibiotic and IV fluid. Still febrile today 2. S/P multiple episodes of asystole with pauses of more than 10 seconds off any MCGEE or AVN blockers. DW Son Mr. Faraz Erickson on 11/23/18 at [phone]. Family refused the pacer and DNR. On prn Atropine. Echo Nl EF. 3. Congestive heart failure with BNP of more than 17,000. BNP 3000 range 4. Troponin elevation, likely due to renal failure and anemia and septic shock. The levels are flat. EKG does not show any ST elevation. 5. S/P Acute renal failure. Resolved BUN 15 and Cr now 0.8 6. Hypernatremia. Resolved. On D5W per Dr Fernandes 7. Ventilator-dependent respiratory failure, status post tracheostomy. 8. Dysphagia, status post PEG placement. 9. Profound anemia, hemoglobin of 6.5, rule out GI bleed. S/P blood transfusion and EGD . 10. Active hematuria, Fu Dr Lindsey 11. DNR, DNI DW RN Subjective Subjective Still has hematuria and now febrile. RN at bedside. Objective Last 24 Hour Vital Signs Date Time Temp Pulse Resp B/P (MAP) Pulse Ox O2 Delivery O2 Flow Rate FiO2 12/08/18 15:01 87 23 40 12/08/18 13:38 92 24 40 12/08/18 12:00 40 12/08/18 12:00 Mechanical Ventilator 12/08/18 12:00 84 12/08/18 12:00 100.1 85 20 141/61 (87) 97 12/08/18 11:38 89 26 40 12/08/18 08:30 87 26 40 12/08/18 08:00 88 12/08/18 08:00 99.9 92 20 151/65 (93) 95 12/08/18 08:00 Mechanical Ventilator 12/08/18 08:00 40 12/08/18 06:53 107 31 40 12/08/18 04:46 102 28 40 12/08/18 04:00 Mechanical Ventilator 12/08/18 04:00 100.0 95 26 158/68 (98) 94 12/08/18 04:00 40 12/08/18 03:40 84 12/08/18 02:52 93 26 40 12/08/18 01:01 88 22 40 12/08/18 00:35 100.9 12/08/18 00:00 101.3 105 26 149/90 (109) 95 12/08/18 00:00 Mechanical Ventilator 12/08/18 00:00 103 12/07/18 23:13 89 20 40 12/07/18 20:59 102 30 40 12/07/18 20:00 105 12/07/18 20:00 40 12/07/18 20:00 Mechanical Ventilator 12/07/18 20:00 98.6 113 26 161/80 (107) 95 12/07/18 18:45 112 32 40 12/07/18 17:20 94 32 40 12/07/18 16:00 Mechanical Ventilator 12/07/18 16:00 40 12/07/18 16:00 99.0 102 28 165/74 (104) 94 12/07/18 16:00 101 Intake and Output 12/07/18 12/08/18 19:00 07:00 Intake Total 940 ml 820 ml Output Total 352 ml 70 ml Balance 588 ml 750 ml Intake Free Water 100 ml 100 ml IV Total 110 ml Tube Feeding 660 ml 550 ml Other 180 ml 60 ml Output Urine Total 350 ml 70 ml Stool Total 2 ml Laboratory Tests Test 12/08/18 03:50 White Blood Count 32.7 K/UL (4.8-10.8) #*H Red Blood Count 3.58 M/UL (4.70-6.10) L Hemoglobin 9.8 G/DL (14.2-18.0) L Hematocrit 31.2 % (42.0-52.0) L Mean Corpuscular Volume 87 FL (80-99) Mean Corpuscular Hemoglobin 27.3 PG (27.0-31.0) Mean Corpuscular Hemoglobin Concent 31.3 G/DL (32.0-36.0) L Red Cell Distribution Width 15.9 % (11.6-14.8) H Platelet Count 314 K/UL (150-450) Mean Platelet Volume 6.2 FL (6.5-10.1) L Neutrophils (%) (Auto) % (45.0-75.0) Lymphocytes (%) (Auto) % (20.0-45.0) Monocytes (%) (Auto) % (1.0-10.0) Eosinophils (%) (Auto) % (0.0-3.0) Basophils (%) (Auto) % (0.0-2.0) Differential Total Cells Counted 100 Neutrophils % (Manual) 85 % (45-75) H Lymphocytes % (Manual) 2 % (20-45) L Monocytes % (Manual) 10 % (1-10) Eosinophils % (Manual) 0 % (0-3) Basophils % (Manual) 1 % (0-2) Band Neutrophils 2 % (0-8) Platelet Estimate Adequate Platelet Morphology Normal Hypochromasia 1+ Anisocytosis 1+ Objective HEAD AND NECK: Tracheostomy intact. LUNGS: Coarse rhonchi. Decreased breath sounds CARDIOVASCULAR: Irregular irregular S1 and S2 with no gallop. ABDOMEN: Status post G-tube, distended. EXTREMITIES: Reveal 1+ edema. Luke Prather MD Dec 08, 2018 15:33
[2018-12-08 16:00] VITALS: BP 134/57
--- NOTE | 2018-12-08 17:17 | Pulmonology Progress Note ---
Assessment/Plan Assessment/Plan Pulmonary Progress Note Assessment/Plan Impression: Patient with Pneumonia - KPC/Acinetobacter/MDR pseudomonas, Proteus Ventilator dependant respiratory failure, stable Pulmonary Status Severe sepsis previously - WCC significantly elevated today NSTEMI Anemia sp TFN Dysphagia s/p G tube Chronic wounds Dementia Organic Brain Syndrome Diabetes Chronic renal disease BPH Penile wound Hematuria - Urology following CHF H/o Hypertension Severe Protein Calorie Malnutrition Plan antibiotic regimen per ID monitor blood pressure HHN Q4 and monitor secretions and suction PRN on full vent support-AC- no wean transfuse PRN DNAR multiorgan disease with poor prognosis monitor oxygen needs- and adjust monitor labs DVT and PUD prophylaxis Gtube feeds as able; monitor residuals and reflux aspiration monitor residuals for change will need custodial care medications/laboratory data/nursing notes reviewed in detail note reviewed and edited care discussed with RN and RT Interval Events: care noted vitals stable poor LOC f ROS Limited/Unobtainable: Yes Condition: critical EKG Rhythm: Sinus Rhythm Residuals: minimal Tube Feeding Tolerated: yes Vital Signs Noted Labs Noted CXR: Impression: Unchanged Objective: WDWN NAD on vent and poorly responsive reduced breath sounds bilaterally with noted rhonchi [id number] without MRG NABS nontender no HSM; GT; non distended no CC mild edema nonfocal reduced LOC skin noted reviewed and edited Sputum: Organism 1 K.PNEUMONIAE CARBAPENEM RESIST GROWTH: 4+ only sens Colistin Organism 2 A.BAUMANII COMPLX - MDR GROWTH: 4+ Organism 3 PSEUDOMONAS AERUGINOSA GROWTH: 4+ Organism 4 PROTEUS MIRABILIS GROWTH: 4+ Subjective ROS Limited/Unobtainable: No Allergies: Coded Allergies: TERAZOSIN (Verified Allergy, Unknown, 10/27/17) Objective Last 24 Hour Vital Signs Date Time Temp Pulse Resp B/P (MAP) Pulse Ox O2 Delivery O2 Flow Rate FiO2 12/08/18 16:00 100.1 84 19 134/57 (82) 100 12/08/18 16:00 40 12/08/18 15:01 87 23 40 12/08/18 13:38 92 24 40 12/08/18 12:00 40 12/08/18 12:00 Mechanical Ventilator 12/08/18 12:00 84 12/08/18 12:00 100.1 85 20 141/61 (87) 97 12/08/18 11:38 89 26 40 12/08/18 08:30 87 26 40 12/08/18 08:00 88 12/08/18 08:00 99.9 92 20 151/65 (93) 95 12/08/18 08:00 Mechanical Ventilator 12/08/18 08:00 40 12/08/18 06:53 107 31 40 12/08/18 04:46 102 28 40 12/08/18 04:00 Mechanical Ventilator 12/08/18 04:00 100.0 95 26 158/68 (98) 94 12/08/18 04:00 40 12/08/18 03:40 84 12/08/18 02:52 93 26 40 12/08/18 01:01 88 22 40 12/08/18 00:35 100.9 12/08/18 00:00 101.3 105 26 149/90 (109) 95 12/08/18 00:00 Mechanical Ventilator 12/08/18 00:00 103 12/07/18 23:13 89 20 40 12/07/18 20:59 102 30 40 12/07/18 20:00 105 12/07/18 20:00 40 12/07/18 20:00 Mechanical Ventilator 12/07/18 20:00 98.6 113 26 161/80 (107) 95 12/07/18 18:45 112 32 40 12/07/18 17:20 94 32 40 Intake and Output 12/07/18 12/08/18 18:59 06:59 Intake Total 940 ml 875 ml Output Total 352 ml 70 ml Balance 588 ml 805 ml Intake Free Water 100 ml 100 ml IV Total 110 ml Tube Feeding 660 ml 605 ml Other 180 ml 60 ml Output Urine Total 350 ml 70 ml Stool Total 2 ml Laboratory Tests 12/08/18 03:50: White Blood Count 32.7#*H, Red Blood Count 3.58L, Hemoglobin 9.8L, Hematocrit 31.2L, Mean Corpuscular Volume 87, Mean Corpuscular Hemoglobin 27.3, Mean Corpuscular Hemoglobin Concent 31.3L, Red Cell Distribution Width 15.9H, Platelet Count 314, Mean Platelet Volume 6.2L, Neutrophils (%) (Auto) , Lymphocytes (%) (Auto) , Monocytes (%) (Auto) , Eosinophils (%) (Auto) , Basophils (%) (Auto) , Differential Total Cells Counted 100, Neutrophils % ( Manual) 85H, Lymphocytes % (Manual) 2L, Monocytes % (Manual) 10, Eosinophils % ( Manual) 0, Basophils % (Manual) 1, Band Neutrophils 2, Platelet Estimate Adequate, Platelet Morphology Normal, Hypochromasia 1+, Anisocytosis 1+ Current Medications Medications (Trade) Dose Ordered Sig/Ruthie Route PRN Reason Start Time Stop Time Status Last Admin Dose Admin Acetaminophen (Tylenol) 650 mg Q6H PRN GT Mild Pain/Temp > 100.5 11/28/18 06:05 12/15/18 06:04 12/08/18 00:05 Atropine Sulfate (Atropine 0.4mg/ ml) 0.4 mg Q5M PRN IVP HR<30 for 30 seconds 11/28/18 06:09 12/28/18 06:08 Bacitracin (Bacitracin 15gm tube) 1 applic BID TOPIC 12/01/18 18:00 12/31/18 17:59 12/08/18 09:09 Bisacodyl (Dulcolax) 10 mg DAILYPRN PRN RECTAL Constipation 11/28/18 06:05 12/18/18 06:04 Ceftazidime 2 gm/ Dextrose 110 ml @ 220 mls/hr Q8H IV 12/01/18 18:00 12/08/18 23:59 12/08/18 09:10 Dextrose (Dextrose 50%) 25 ml Q30M PRN IV Hypoglycemia 11/28/18 06:15 12/15/18 09:38 Dextrose (Dextrose 50%) 50 ml Q30M PRN IV Hypoglycemia 11/28/18 06:15 12/15/18 05:44 Insulin Aspart (NovoLOG) EVERY 6 HOURS SUBQ 12/08/18 12:00 12/15/18 06:29 Lansoprazole (Prevacid) 30 mg BID GT 11/28/18 18:00 12/28/18 17:59 12/08/18 09:09 Lorazepam (Ativan 2mg/ml 1ml) 0.5 mg Q2H PRN IV For Anxiety 12/05/18 14:56 12/12/18 14:55 12/07/18 17:19 Olanzapine (ZyPREXA Zydis) 7.5 mg DAILY GT 11/28/18 09:00 12/15/18 08:59 12/08/18 09:10 Booker Baumann MD Dec 08, 2018 17:17
[2018-12-08 20:00] VITALS: BP 146/73
[2018-12-09] VITALS: BP 153/79
[2018-12-09] MEDS: NovoLOG Insulin Flexpen SUBQ SCH ×5 (00:05→23:37)
[2018-12-09 04:00] VITALS: BP 122/67
[2018-12-09 07:43] LABS: HEMATOCRIT 30.9 % (42.0-52.0); HEMOGLOBIN 9.4 G/DL (14.2-18.0); MEAN CORPUSCULAR VOLUME 87 FL (80-99); PLATELET COUNT 286 K/UL (150-450); RED BLOOD COUNT 3.54 M/UL (4.70-6.10); RED CELL DISTRIBUTION WIDTH 16.3 % (11.6-14.8)
[2018-12-09 07:47] LABS: WHITE BLOOD COUNT 30.2 K/UL (4.8-10.8)
[2018-12-09 07:52] LABS: INR 1.2 (0.9-1.1)
[2018-12-09 08:00] VITALS: BP 135/88
[2018-12-09 08:24] LABS: ALANINE AMINOTRANSFERASE 22 U/L (12-78); ALBUMIN 1.5 G/DL (3.4-5.0); ALBUMIN/GLOBULIN RATIO 0.3 (1.0-2.7); ALKALINE PHOSPHATASE 102 U/L (46-116); ANION GAP 3 mmol/L (5-15); ASPARTATE AMINO TRANSFERASE 25 U/L (15-37); BILIRUBIN,TOTAL 0.3 MG/DL (0.2-1.0); BLOOD UREA NITROGEN 22 mg/dL (7-18); CALCIUM 8.2 MG/DL (8.5-10.1); CARBON DIOXIDE 36 MMOL/L (21-32); CHLORIDE 113 MMOL/L (98-107); CREATININE 1.1 MG/DL (0.55-1.30); POTASSIUM 3.9 MMOL/L (3.5-5.1); SODIUM 152 MMOL/L (136-145)
--- NOTE | 2018-12-09 08:54 | Hematology/Onc Progress Note ---
Assessment/Plan Assessment/Plan ASSESSMENT AND RECOMMENDATIONS # Leukocytosis. Likely related to underlying infection with sepsis and elevated severely on admission --> Imaging has been reviewed. Shows cxr left lung inil/v edema --> Blood cs and urine cx are have been reviewed --> Has been started on abx, empiric tx (zosyn)--> colistin/cipro/ceftaz--> ceftazadime --> PERIPHERAL SMEAR SHOWS ATYPICAL LYMPHOCYTES--> has stabilized, improved --> Flow cytometry ordered with pathologist -> no atypical findings are noted --> wbc 52k-->47k-->29k->16-->12-->14->12-->12-->21-->14->11->15->9-->11.4->24k- >28k-->16k-->13-->17k-->16k-->30 --> picc was repositioned --> is off of any steriods, daily md review --> for urology evaluation with hematuria, improved --> c.diff ordered, id aware # Anemia of chronic disease, due to underlying chronic medical issues, multifactorial. --> Anemia w/u has been ordered --> with hyperferritinemia --> No evidence of hemolysis noted, peripheral smear has been reviewed --> Hgb goal >7. Transfuse as needed --> hgb trend 7.5-->6.6->9.1-->9.2-->8.9-->9.9->8.3-->8.5-->9.3-->8.2->8.4-->7.1 -->10.6-->9.8 --> 2 units transfuse on 11/15, 2 more 12/04 --> will need to follow as outpatient and may need chelation therapy --> GI workup with egd showed gastritis --> hematuria eval as per UROL # Failure to thrive (FTT) - decreased bmi and low protein --> cea 4.3 --> will obtain q3 day caloric counts --> mirtazapine as appetite stimulant --> GI consult on a prn basis, as needed for endosc # Asystole with pauses may need pm per family --> as per cards recs --> refusing pm # Sepsis, which has improved --> abx as per id # dysphagia s/p PEG # Malnutrition. 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 Greatly appreciate consultation. Subjective Constitutional: Denies: no symptoms, chills, fever, malaise, weakness, other HEENT: Denies: no symptoms, eye pain, blurred vision, tearing, double vision, ear pain, ear discharge, nose pain, nose congestion, throat pain, throat swelling, mouth pain, mouth swelling, other Cardiovascular: Denies: no symptoms, chest pain, edema, irregular heart rate, lightheadedness, palpitations, syncope, other Respiratory: Denies: no symptoms, cough, shortness of breath, SOB with excertion, SOB at rest, sputum, wheezing, other Genitourinary: Denies: no symptoms, burning, discharge, frequency, flank pain, hematuria, incontinence, pain, urgency, other Neurologic/Psychiatric: Denies: no symptoms, anxiety, depressed, emotional problems, headache, numbness, paresthesia, pre-existing deficit, seizure, tingling, tremors, weakness, other Allergies: Coded Allergies: TERAZOSIN (Verified Allergy, Unknown, 10/27/17) Subjective 11/16: in the icu, is off pressors, doing better, no bleeding 11/18: no bleeding, remains on doxy and zosyn, no bleeding reported 11/19: out of the icu, on vent/trach, no major changes, dw rn 11/20: no bleeding noted, no night sweats, meds reviewed, no f/c 11/21: on vent, obtunded, with gt ongong, with picc, no bleeding .17: stricture advanced through with uro, with crabtree, labs noted 11/23: no events to report, no bleeding, labs reviewed, in icu 11/24: remains in the icu, with asystole, pending discussion with fam re pM 11/25: continues to have pauses, no bleeding, seen by cards, no events 11/26: no ets, no bleeding noted, no night sweats, no f/c 11/27: hgb 8.2, no bleeding or chills, no major changes on trach/svetlana, jimenez RN 11/28: agitated today, on vent/trach, jimenez rn, potential dc to tirso turner 11/29: obtunded, is out of the unit, labs noted, wbc 24k 11/30: gt feeds on hold, no bleeding reported, no night sweats 12/01: is on abx, no bleeding, no f/c, no night sweats noted 12/04: no events to report, hgb 7.1, nor chills noted, to get 2 unit prbc 12/05: for blood transfusion which was completed, but wbc higher, with hematruia , is dnr 12/06: no events, no bleeding, hematuria is improved, labs pending, on vent/ trach 12/07: no bleeding, no chills, labs noted, hgb higher 12/09: on vent and gtube feeds, no night sweats, no major changes Objective Objective Current Medications Medications (Trade) Dose Ordered Sig/Ruthie Route PRN Reason Start Time Stop Time Status Last Admin Dose Admin Acetaminophen (Tylenol) 650 mg Q6H PRN GT Mild Pain/Temp > 100.5 11/28/18 06:05 12/15/18 06:04 12/08/18 20:23 Atropine Sulfate (Atropine 0.4mg/ ml) 0.4 mg Q5M PRN IVP HR<30 for 30 seconds 11/28/18 06:09 12/28/18 06:08 Bacitracin (Bacitracin 15gm tube) 1 applic BID TOPIC 12/01/18 18:00 12/31/18 17:59 12/08/18 18:09 Bisacodyl (Dulcolax) 10 mg DAILYPRN PRN RECTAL Constipation 11/28/18 06:05 12/18/18 06:04 Dextrose (Dextrose 50%) 25 ml Q30M PRN IV Hypoglycemia 11/28/18 06:15 12/15/18 09:38 Dextrose (Dextrose 50%) 50 ml Q30M PRN IV Hypoglycemia 11/28/18 06:15 12/15/18 05:44 Insulin Aspart (NovoLOG) EVERY 6 HOURS SUBQ 12/08/18 12:00 12/15/18 06:29 12/09/18 05:26 Lansoprazole (Prevacid) 30 mg BID GT 11/28/18 18:00 12/28/18 17:59 12/08/18 18:09 Lorazepam (Ativan 2mg/ml 1ml) 0.5 mg Q2H PRN IV For Anxiety 12/05/18 14:56 12/12/18 14:55 12/07/18 17:19 Olanzapine (ZyPREXA Zydis) 7.5 mg DAILY GT 11/28/18 09:00 12/15/18 08:59 12/08/18 09:10 Last 24 Hour Vital Signs Date Time Temp Pulse Resp B/P (MAP) Pulse Ox O2 Delivery O2 Flow Rate FiO2 12/09/18 06:40 101 25 40 12/09/18 04:32 90 18 40 12/09/18 04:00 98.9 93 24 122/67 (85) 95 12/09/18 04:00 40 12/09/18 04:00 Mechanical Ventilator 12/09/18 03:57 90 12/09/18 02:50 94 27 40 12/09/18 00:56 95 28 40 12/09/18 00:00 40 12/09/18 00:00 98.1 98 25 153/79 (103) 100 12/09/18 00:00 Mechanical Ventilator 12/08/18 23:37 92 12/08/18 23:16 97 24 40 12/08/18 20:53 98.2 12/08/18 20:53 98.2 12/08/18 20:32 101 27 40 12/08/18 20:00 Mechanical Ventilator 12/08/18 20:00 40 12/08/18 20:00 99.6 98 24 146/73 (97) 96 12/08/18 19:34 97 12/08/18 19:16 93 25 40 12/08/18 17:19 109 39 40 12/08/18 16:00 100.1 84 19 134/57 (82) 100 12/08/18 16:00 40 12/08/18 16:00 Mechanical Ventilator 12/08/18 16:00 84 12/08/18 15:01 87 23 40 12/08/18 13:38 92 24 40 12/08/18 12:00 40 12/08/18 12:00 Mechanical Ventilator 12/08/18 12:00 84 12/08/18 12:00 100.1 85 20 141/61 (87) 97 12/08/18 11:38 89 26 40 12/08/18 08:30 87 26 40 12/08/18 08:00 88 12/08/18 08:00 99.9 92 20 151/65 (93) 95 12/08/18 08:00 Mechanical Ventilator 12/08/18 08:00 40 12/08/18 06:53 107 31 40 12/08/18 04:46 102 28 40 12/08/18 04:00 Mechanical Ventilator 12/08/18 04:00 100.0 95 26 158/68 (98) 94 12/08/18 04:00 40 12/08/18 03:40 84 12/08/18 02:52 93 26 40 12/08/18 01:01 88 22 40 12/08/18 00:00 101.3 105 26 149/90 (109) 95 12/08/18 00:00 Mechanical Ventilator 12/08/18 00:00 103 12/07/18 23:13 89 20 40 12/07/18 20:59 102 30 40 12/07/18 20:00 105 12/07/18 20:00 40 12/07/18 20:00 Mechanical Ventilator 12/07/18 20:00 98.6 113 26 161/80 (107) 95 12/07/18 18:45 112 32 40 12/07/18 17:20 94 32 40 12/07/18 16:00 Mechanical Ventilator 12/07/18 16:00 40 12/07/18 16:00 99.0 102 28 165/74 (104) 94 12/07/18 16:00 101 12/07/18 15:30 99 38 40 12/07/18 13:22 73 26 40 12/07/18 12:00 Mechanical Ventilator 12/07/18 12:00 40 12/07/18 12:00 98.9 87 28 145/89 (107) 95 12/07/18 11:34 74 12/07/18 11:16 80 26 40 12/07/18 09:23 82 24 40 Intake and Output 12/08/18 12/09/18 19:00 07:00 Intake Total 940 ml 980 ml Output Total 240 ml 175 ml Balance 700 ml 805 ml Intake Free Water 100 ml 260 ml Tube Feeding 660 ml 660 ml Other 180 ml 60 ml Output Urine Total 240 ml 175 ml # Voids 34 # Bowel Movements 1 Labs Test 12/07/18 03:05 12/08/18 03:50 12/09/18 06:50 White Blood Count 16.1 K/UL (4.8-10.8) 32.7 K/UL (4.8-10.8) 30.2 K/UL (4.8-10.8) Red Blood Count 3.54 M/UL (4.70-6.10) 3.58 M/UL (4.70-6.10) 3.54 M/UL (4.70-6.10) Hemoglobin 9.8 G/DL (14.2-18.0) 9.8 G/DL (14.2-18.0) 9.4 G/DL (14.2-18.0) Hematocrit 30.6 % (42.0-52.0) 31.2 % (42.0-52.0) 30.9 % (42.0-52.0) Mean Corpuscular Volume 86 FL (80-99) 87 FL (80-99) 87 FL (80-99) Mean Corpuscular Hemoglobin 27.6 PG (27.0-31.0) 27.3 PG (27.0-31.0) 26.7 PG (27.0-31.0) Mean Corpuscular Hemoglobin Concent 31.9 G/DL (32.0-36.0) 31.3 G/DL (32.0-36.0) 30.6 G/DL (32.0-36.0) Red Cell Distribution Width 15.8 % (11.6-14.8) 15.9 % (11.6-14.8) 16.3 % (11.6-14.8) Platelet Count 307 K/UL (150-450) 314 K/UL (150-450) 286 K/UL (150-450) Mean Platelet Volume 6.0 FL (6.5-10.1) 6.2 FL (6.5-10.1) 5.9 FL (6.5-10.1) Neutrophils (%) (Auto) 74.6 % (45.0-75.0) % (45.0-75.0) % (45.0-75.0) Lymphocytes (%) (Auto) 10.2 % (20.0-45.0) % (20.0-45.0) % (20.0-45.0) Monocytes (%) (Auto) 13.0 % (1.0-10.0) % (1.0-10.0) % (1.0-10.0) Eosinophils (%) (Auto) 1.8 % (0.0-3.0) % (0.0-3.0) % (0.0-3.0) Basophils (%) (Auto) 0.4 % (0.0-2.0) % (0.0-2.0) % (0.0-2.0) Sodium Level 149 MMOL/L (136-145) 152 MMOL/L (136-145) Potassium Level 4.7 MMOL/L (3.5-5.1) 3.9 MMOL/L (3.5-5.1) Chloride Level 112 MMOL/L (98-107) 113 MMOL/L (98-107) Carbon Dioxide Level 35 MMOL/L (21-32) 36 MMOL/L (21-32) Anion Gap 2 mmol/L (5-15) 3 mmol/L (5-15) Blood Urea Nitrogen 20 mg/dL (7-18) 22 mg/dL (7-18) Creatinine 0.9 MG/DL (0.55-1.30) 1.1 MG/DL (0.55-1.30) Estimat Glomerular Filtration Rate mL/min (>60) mL/min (>60) Glucose Level 105 MG/DL (74-106) 130 MG/DL (74-106) Calcium Level 8.2 MG/DL (8.5-10.1) 8.2 MG/DL (8.5-10.1) Total Bilirubin 0.3 MG/DL (0.2-1.0) 0.3 MG/DL (0.2-1.0) Aspartate Amino Transf (AST/SGOT) 27 U/L (15-37) 25 U/L (15-37) Alanine Aminotransferase (ALT/SGPT) 25 U/L (12-78) 22 U/L (12-78) Alkaline Phosphatase 115 U/L (46-116) 102 U/L (46-116) Total Protein 6.4 G/DL (6.4-8.2) 6.9 G/DL (6.4-8.2) Albumin 1.5 G/DL (3.4-5.0) 1.5 G/DL (3.4-5.0) Globulin 4.9 g/dL 5.4 g/dL Albumin/Globulin Ratio 0.3 (1.0-2.7) 0.3 (1.0-2.7) Differential Total Cells Counted 100 Neutrophils % (Manual) 85 % (45-75) Lymphocytes % (Manual) 2 % (20-45) Monocytes % (Manual) 10 % (1-10) Eosinophils % (Manual) 0 % (0-3) Basophils % (Manual) 1 % (0-2) Band Neutrophils 2 % (0-8) Platelet Estimate Adequate Platelet Morphology Normal Hypochromasia 1+ Anisocytosis 1+ Prothrombin Time 12.9 SEC (9.30-11.50) Prothromb Time International Ratio 1.2 (0.9-1.1) Activated Partial Thromboplast Time 29 SEC (23-33) C-Reactive Protein, Quantitative > 70.0 mg/dL (0.00-0.90) Lipase 105 U/L (73-393) Height (Feet): 5 Height (Inches): 5.00 Weight (Pounds): 200 Objective Vitals: reviewed Gen: no apparent distress Head: normocephalic EENT: normal ENT inspection Respiratory: other - intubated vent+ Cardiovascular: normal rate Gastrointestinal: gt - c/d/i Rectal: deferred Genitourinary: no CVA tenderness Skin: normal color +++ decub : ++ Beny Fields MD Dec 09, 2018 08:54
[2018-12-09] MEDS: ZyPREXA Zydis 5mg tab GT SCH (09:49)
[2018-12-09] MEDS: Bacitracin Oint 15gm Tube TOPIC SCH ×2 (09:50→20:38)
--- NOTE | 2018-12-09 10:57 | Infectious Diseases Prog Note ---
Assessment/Plan Assessment/Plan IMPRESSION: Sepsis, Pyuria/ UTI treated Pneumonia with MDR pseudomonas, Acinetobacter, Proteus & Klebsiella treated BPH, ventilator-dependent respiratory failure Leukocytosis improving Acute renal failure, improving Diabetes mellitus, anemia, hypoxemic respiratory failure, dementia. 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 Phimosis/ paraphimosis Urethral stricture Asystole, cardiac pause DNR RECOMMENDATION: Start on IV Vancomycin, zosyn & GT Flagyl repeat CXR, UA, Urine culture, blood culture Poor prognosis Subjective ROS Limited/Unobtainable: Yes Constitutional: Reports: fever, other - yesterday Allergies: Coded Allergies: TERAZOSIN (Verified Allergy, Unknown, 10/27/17) Objective Vital Signs Last 24 Hour Vital Signs Date Time Temp Pulse Resp B/P (MAP) Pulse Ox O2 Delivery O2 Flow Rate FiO2 12/09/18 08:37 98 22 40 12/09/18 08:00 40 12/09/18 08:00 Mechanical Ventilator 12/09/18 08:00 99.3 95 24 135/88 (104) 95 12/09/18 07:48 95 12/09/18 06:40 101 25 40 12/09/18 04:32 90 18 40 12/09/18 04:00 98.9 93 24 122/67 (85) 95 12/09/18 04:00 40 12/09/18 04:00 Mechanical Ventilator 12/09/18 03:57 90 12/09/18 02:50 94 27 40 12/09/18 00:56 95 28 40 12/09/18 00:00 40 12/09/18 00:00 98.1 98 25 153/79 (103) 100 12/09/18 00:00 Mechanical Ventilator 12/08/18 23:37 92 12/08/18 23:16 97 24 40 12/08/18 20:53 98.2 12/08/18 20:53 98.2 12/08/18 20:32 101 27 40 12/08/18 20:00 Mechanical Ventilator 12/08/18 20:00 40 12/08/18 20:00 99.6 98 24 146/73 (97) 96 12/08/18 19:34 97 12/08/18 19:16 93 25 40 12/08/18 17:19 109 39 40 12/08/18 16:00 100.1 84 19 134/57 (82) 100 12/08/18 16:00 40 12/08/18 16:00 Mechanical Ventilator 12/08/18 16:00 84 12/08/18 15:01 87 23 40 12/08/18 13:38 92 24 40 12/08/18 12:00 40 12/08/18 12:00 Mechanical Ventilator 12/08/18 12:00 84 12/08/18 12:00 100.1 85 20 141/61 (87) 97 12/08/18 11:38 89 26 40 Height (Feet): 5 Height (Inches): 5.00 Weight (Pounds): 200 HEENT: status post trach Respiratory/Chest: decreased breath sounds, other - on ventilator Cardiovascular: normal rate Abdomen: distended, other - GT feeding Genitourinary: other - Turner catheter, hematuria Extremities: other - generalzed edema Neurologic/Psychiatric: aphasia, other - opens eyes Laboratory Tests Test 12/09/18 06:50 White Blood Count 30.2 K/UL (4.8-10.8) *H Red Blood Count 3.54 M/UL (4.70-6.10) L Hemoglobin 9.4 G/DL (14.2-18.0) L Hematocrit 30.9 % (42.0-52.0) L Mean Corpuscular Volume 87 FL (80-99) Mean Corpuscular Hemoglobin 26.7 PG (27.0-31.0) L Mean Corpuscular Hemoglobin Concent 30.6 G/DL (32.0-36.0) L Red Cell Distribution Width 16.3 % (11.6-14.8) H Platelet Count 286 K/UL (150-450) Mean Platelet Volume 5.9 FL (6.5-10.1) L Neutrophils (%) (Auto) % (45.0-75.0) Lymphocytes (%) (Auto) % (20.0-45.0) Monocytes (%) (Auto) % (1.0-10.0) Eosinophils (%) (Auto) % (0.0-3.0) Basophils (%) (Auto) % (0.0-2.0) Neutrophils % (Manual) Pending Lymphocytes % (Manual) Pending Platelet Estimate Pending Platelet Morphology Pending Erythrocyte Sedimentation Rate 62 MM/HR (0-20) H Prothrombin Time 12.9 SEC (9.30-11.50) H Prothromb Time International Ratio 1.2 (0.9-1.1) H Activated Partial Thromboplast Time 29 SEC (23-33) Sodium Level 152 MMOL/L (136-145) H Potassium Level 3.9 MMOL/L (3.5-5.1) Chloride Level 113 MMOL/L (98-107) H Carbon Dioxide Level 36 MMOL/L (21-32) H Anion Gap 3 mmol/L (5-15) L Blood Urea Nitrogen 22 mg/dL (7-18) H Creatinine 1.1 MG/DL (0.55-1.30) Estimat Glomerular Filtration Rate mL/min (>60) Glucose Level 130 MG/DL (74-106) H Calcium Level 8.2 MG/DL (8.5-10.1) L Total Bilirubin 0.3 MG/DL (0.2-1.0) Aspartate Amino Transf (AST/SGOT) 25 U/L (15-37) Alanine Aminotransferase (ALT/SGPT) 22 U/L (12-78) Alkaline Phosphatase 102 U/L (46-116) C-Reactive Protein, Quantitative > 70.0 mg/dL (0.00-0.90) H Total Protein 6.9 G/DL (6.4-8.2) Albumin 1.5 G/DL (3.4-5.0) L Globulin 5.4 g/dL Albumin/Globulin Ratio 0.3 (1.0-2.7) L Lipase 105 U/L (73-393) Current Medications Medications (Trade) Dose Ordered Sig/Ruthie Route PRN Reason Start Time Stop Time Status Last Admin Dose Admin Acetaminophen (Tylenol) 650 mg Q6H PRN GT Mild Pain/Temp > 100.5 11/28/18 06:05 12/15/18 06:04 12/08/18 20:23 Atropine Sulfate (Atropine 0.4mg/ ml) 0.4 mg Q5M PRN IVP HR<30 for 30 seconds 11/28/18 06:09 12/28/18 06:08 Bacitracin (Bacitracin 15gm tube) 1 applic BID TOPIC 12/01/18 18:00 12/31/18 17:59 12/09/18 09:50 Bisacodyl (Dulcolax) 10 mg DAILYPRN PRN RECTAL Constipation 11/28/18 06:05 12/18/18 06:04 Dextrose (Dextrose 50%) 25 ml Q30M PRN IV Hypoglycemia 11/28/18 06:15 12/15/18 09:38 Dextrose (Dextrose 50%) 50 ml Q30M PRN IV Hypoglycemia 11/28/18 06:15 12/15/18 05:44 Insulin Aspart (NovoLOG) EVERY 6 HOURS SUBQ 12/08/18 12:00 12/15/18 06:29 12/09/18 05:26 Lansoprazole (Prevacid) 30 mg BID GT 11/28/18 18:00 12/28/18 17:59 12/09/18 09:49 Lorazepam (Ativan 2mg/ml 1ml) 0.5 mg Q2H PRN IV For Anxiety 12/05/18 14:56 12/12/18 14:55 12/07/18 17:19 Olanzapine (ZyPREXA Zydis) 7.5 mg DAILY GT 11/28/18 09:00 12/15/18 08:59 12/09/18 09:49 Anam Cruz MD Dec 09, 2018 10:57
--- NOTE | 2018-12-09 11:48 | General Progress Note ---
Assessment/Plan Problem List: (1) Hypernatremia ICD Codes: E87.0 - Hyperosmolality and hypernatremia SNOMED: 10408845 (2) Rhabdomyolysis ICD Codes: M62.82 - Rhabdomyolysis SNOMED: 007646740 (3) Sacral decubitus ulcer ICD Codes: L89.159 - Pressure ulcer of sacral region, unspecified stage SNOMED: 886035892 (4) Severe sepsis ICD Codes: A41.9 - Sepsis, unspecified organism; R65.20 - Severe sepsis without septic shock SNOMED: 74174725 (5) Septic shock ICD Codes: A41.9 - Sepsis, unspecified organism; R65.21 - Severe sepsis with septic shock SNOMED: 66565861 (6) DM (7) Anemia ICD Codes: D64.9 - Anemia, unspecified SNOMED: 998239969 (8) Prostate enlargement ICD Codes: N40.0 - Benign prostatic hyperplasia without lower urinary tract symptoms SNOMED: 806269645 (9) Chronic renal disease ICD Codes: N18.9 - Chronic kidney disease, unspecified SNOMED: 175892162 (10) Ventilator dependence ICD Codes: Z99.11 - Dependence on respirator [ventilator] status SNOMED: 407269584 (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 - Gastrostomy status SNOMED: 547871522, 583280032 (12) Malnutrition ICD Codes: E46 - Unspecified protein-calorie malnutrition SNOMED: 18116774 Status: stable, progressing, unchanged Assessment/Plan: bph no bleeding afebrile s/p transfusion on isolation for polymicrobial pna persistent leukocytosis Subjective ROS Limited/Unobtainable: Yes Allergies: Coded Allergies: TERAZOSIN (Verified Allergy, Unknown, 10/27/17) Objective Last 24 Hour Vital Signs Date Time Temp Pulse Resp B/P (MAP) Pulse Ox O2 Delivery O2 Flow Rate FiO2 12/09/18 10:45 87 24 40 12/09/18 08:37 98 22 40 12/09/18 08:00 40 12/09/18 08:00 Mechanical Ventilator 12/09/18 08:00 99.3 95 24 135/88 (104) 95 12/09/18 07:48 95 12/09/18 06:40 101 25 40 12/09/18 04:32 90 18 40 12/09/18 04:00 98.9 93 24 122/67 (85) 95 12/09/18 04:00 40 12/09/18 04:00 Mechanical Ventilator 12/09/18 03:57 90 12/09/18 02:50 94 27 40 12/09/18 00:56 95 28 40 12/09/18 00:00 40 12/09/18 00:00 98.1 98 25 153/79 (103) 100 12/09/18 00:00 Mechanical Ventilator 12/08/18 23:37 92 12/08/18 23:16 97 24 40 12/08/18 20:53 98.2 12/08/18 20:53 98.2 12/08/18 20:32 101 27 40 12/08/18 20:00 Mechanical Ventilator 12/08/18 20:00 40 12/08/18 20:00 99.6 98 24 146/73 (97) 96 12/08/18 19:34 97 12/08/18 19:16 93 25 40 12/08/18 17:19 109 39 40 12/08/18 16:00 100.1 84 19 134/57 (82) 100 12/08/18 16:00 40 12/08/18 16:00 Mechanical Ventilator 12/08/18 16:00 84 12/08/18 15:01 87 23 40 12/08/18 13:38 92 24 40 12/08/18 12:00 40 12/08/18 12:00 Mechanical Ventilator 12/08/18 12:00 84 12/08/18 12:00 100.1 85 20 141/61 (87) 97 Intake and Output 12/08/18 12/09/18 19:00 07:00 Intake Total 940 ml 980 ml Output Total 240 ml 175 ml Balance 700 ml 805 ml Intake Free Water 100 ml 260 ml Tube Feeding 660 ml 660 ml Other 180 ml 60 ml Output Urine Total 240 ml 175 ml # Voids 34 # Bowel Movements 1 Laboratory Tests 12/09/18 06:50: White Blood Count 30.2*H, Red Blood Count 3.54L, Hemoglobin 9.4L, Hematocrit 30.9L, Mean Corpuscular Volume 87, Mean Corpuscular Hemoglobin 26.7L, Mean Corpuscular Hemoglobin Concent 30.6L, Red Cell Distribution Width 16.3H, Platelet Count 286, Mean Platelet Volume 5.9L, Neutrophils (%) (Auto) , Lymphocytes (%) (Auto) , Monocytes (%) (Auto) , Eosinophils (%) (Auto) , Basophils (%) (Auto) , Differential Total Cells Counted 100, Neutrophils % ( Manual) 82H, Lymphocytes % (Manual) 8L, Monocytes % (Manual) 9, Eosinophils % ( Manual) 1, Basophils % (Manual) 0, Band Neutrophils 0, Platelet Estimate Adequate, Platelet Morphology Normal, Anisocytosis 1+, Erythrocyte Sedimentation Rate 62H, Prothrombin Time 12.9H, Prothromb Time International Ratio 1.2H, Activated Partial Thromboplast Time 29, Sodium Level 152H, Potassium Level 3.9, Chloride Level 113H, Carbon Dioxide Level 36H, Anion Gap 3L , Blood Urea Nitrogen 22H, Creatinine 1.1, Estimat Glomerular Filtration Rate , Glucose Level 130H, Calcium Level 8.2L, Total Bilirubin 0.3, Aspartate Amino Transf (AST/SGOT) 25, Alanine Aminotransferase (ALT/SGPT) 22, Alkaline Phosphatase 102, C-Reactive Protein, Quantitative > 70.0H, Total Protein 6.9, Albumin 1.5L, Globulin 5.4, Albumin/Globulin Ratio 0.3L, Lipase 105 Height (Feet): 5 Height (Inches): 5.00 Weight (Pounds): 200 Cardiovascular: normal rate Abdomen: soft Trish Matias MD Dec 09, 2018 11:48
[2018-12-09 12:00] VITALS: BP 147/95
--- NOTE | 2018-12-09 12:31 | Diagnostic Imaging Report ---
Indication: Reason For Exam: F/U Technique: Single AP view of the chest. Comparison: Chest radiograph dated 12/06/2018 Findings: The cardiomediastinal silhouette is unchanged. Low lung volumes with bronchovascular crowding. There is interstitial edema. Small right pleural effusion. Bibasilar and bilateral hilar patchy airspace opacities. No pneumothorax. Unchanged cannulated tracheostomy. IMPRESSION: 1. Patchy bilateral airspace opacities, unchanged from prior examination 2. Small right pleural effusion with interstitial edema, stable.
[2018-12-09] MEDS: Vancomycin 1.5gm/NS Premix IVPB SCH (12:43)
--- NOTE | 2018-12-09 13:20 | Surgery Progress Note ---
Surgery Progress Note Subjective Additional Comments exam unchanged labs noted poor prognosis Objective Last 24 Hour Vital Signs Date Time Temp Pulse Resp B/P (MAP) Pulse Ox O2 Delivery O2 Flow Rate FiO2 12/09/18 12:50 95 24 40 12/09/18 12:00 Mechanical Ventilator 12/09/18 12:00 98.1 85 28 147/95 (112) 96 12/09/18 12:00 85 12/09/18 12:00 40 12/09/18 10:45 87 24 40 12/09/18 08:37 98 22 40 12/09/18 08:00 40 12/09/18 08:00 Mechanical Ventilator 12/09/18 08:00 99.3 95 24 135/88 (104) 95 12/09/18 07:48 95 12/09/18 06:40 101 25 40 12/09/18 04:32 90 18 40 12/09/18 04:00 98.9 93 24 122/67 (85) 95 12/09/18 04:00 40 12/09/18 04:00 Mechanical Ventilator 12/09/18 03:57 90 12/09/18 02:50 94 27 40 12/09/18 00:56 95 28 40 12/09/18 00:00 40 12/09/18 00:00 98.1 98 25 153/79 (103) 100 12/09/18 00:00 Mechanical Ventilator 12/08/18 23:37 92 12/08/18 23:16 97 24 40 12/08/18 20:53 98.2 12/08/18 20:53 98.2 12/08/18 20:32 101 27 40 12/08/18 20:00 Mechanical Ventilator 12/08/18 20:00 40 12/08/18 20:00 99.6 98 24 146/73 (97) 96 12/08/18 19:34 97 12/08/18 19:16 93 25 40 12/08/18 17:19 109 39 40 12/08/18 16:00 100.1 84 19 134/57 (82) 100 12/08/18 16:00 40 12/08/18 16:00 Mechanical Ventilator 12/08/18 16:00 84 12/08/18 15:01 87 23 40 12/08/18 13:38 92 24 40 I&O Intake and Output 12/08/18 12/09/18 19:00 07:00 Intake Total 940 ml 980 ml Output Total 240 ml 175 ml Balance 700 ml 805 ml Intake Free Water 100 ml 260 ml Tube Feeding 660 ml 660 ml Other 180 ml 60 ml Output Urine Total 240 ml 175 ml # Voids 34 # Bowel Movements 1 Dressing: saturated Wound: other Drains: other Cardiovascular: RSR Respiratory: decreased breath sounds Abdomen: soft, present bowel sounds, non-distended Extremities: no cyanosis Laboratory Tests Test 12/09/18 06:50 White Blood Count 30.2 K/UL (4.8-10.8) *H Red Blood Count 3.54 M/UL (4.70-6.10) L Hemoglobin 9.4 G/DL (14.2-18.0) L Hematocrit 30.9 % (42.0-52.0) L Mean Corpuscular Volume 87 FL (80-99) Mean Corpuscular Hemoglobin 26.7 PG (27.0-31.0) L Mean Corpuscular Hemoglobin Concent 30.6 G/DL (32.0-36.0) L Red Cell Distribution Width 16.3 % (11.6-14.8) H Platelet Count 286 K/UL (150-450) Mean Platelet Volume 5.9 FL (6.5-10.1) L Neutrophils (%) (Auto) % (45.0-75.0) Lymphocytes (%) (Auto) % (20.0-45.0) Monocytes (%) (Auto) % (1.0-10.0) Eosinophils (%) (Auto) % (0.0-3.0) Basophils (%) (Auto) % (0.0-2.0) Differential Total Cells Counted 100 Neutrophils % (Manual) 82 % (45-75) H Lymphocytes % (Manual) 8 % (20-45) L Monocytes % (Manual) 9 % (1-10) Eosinophils % (Manual) 1 % (0-3) Basophils % (Manual) 0 % (0-2) Band Neutrophils 0 % (0-8) Platelet Estimate Adequate Platelet Morphology Normal Anisocytosis 1+ Erythrocyte Sedimentation Rate 62 MM/HR (0-20) H Prothrombin Time 12.9 SEC (9.30-11.50) H Prothromb Time International Ratio 1.2 (0.9-1.1) H Activated Partial Thromboplast Time 29 SEC (23-33) Sodium Level 152 MMOL/L (136-145) H Potassium Level 3.9 MMOL/L (3.5-5.1) Chloride Level 113 MMOL/L (98-107) H Carbon Dioxide Level 36 MMOL/L (21-32) H Anion Gap 3 mmol/L (5-15) L Blood Urea Nitrogen 22 mg/dL (7-18) H Creatinine 1.1 MG/DL (0.55-1.30) Estimat Glomerular Filtration Rate mL/min (>60) Glucose Level 130 MG/DL (74-106) H Calcium Level 8.2 MG/DL (8.5-10.1) L Total Bilirubin 0.3 MG/DL (0.2-1.0) Aspartate Amino Transf (AST/SGOT) 25 U/L (15-37) Alanine Aminotransferase (ALT/SGPT) 22 U/L (12-78) Alkaline Phosphatase 102 U/L (46-116) C-Reactive Protein, Quantitative > 70.0 mg/dL (0.00-0.90) H Total Protein 6.9 G/DL (6.4-8.2) Albumin 1.5 G/DL (3.4-5.0) L Globulin 5.4 g/dL Albumin/Globulin Ratio 0.3 (1.0-2.7) L Lipase 105 U/L (73-393) Plan Problems: (1) Severe sepsis Assessment & Plan: leukocytosis, anemia, lactic acidosis, fevers IV Abx imaging noted and reviewed US with no stones or dilated ducts elevated lft's likely due to liver disease exam as below cont abx trend labs leave crabtree for a few weeks Overall prognosis very guarded Continue with current care Transfuse as needed Plan to be seen by urologist for hematuria check c diff imaging ordered thank you will follow with recs Findings: Exam is somewhat limited, due to gastrostomy tube and overlying bowel gas limiting visualization of the abdominal aorta Gallbladder is unremarkable, without stones, wall thickening, nor pericholecystic fluid. Sonographic Carl's sign is negative. Common bile duct measures 4 mm in diameter. No intrahepatic biliary ductal dilatation. Liver demonstrates normal echogenicity, no focal abnormality. It demonstrates slight surface nodularity. It is enlarged. There is a 1 cm cyst which appears adjacent to the gallbladder wall. This is probably a small exophytic hepatic cyst. Portal vein and hepatic veins are patent. Pancreas is unremarkable. Spleen is unremarkable. Left kidney measures 9.2 cm in length. Right kidney measures 10.2 cm length. Both kidneys demonstrate normal echogenicity. There is no hydronephrosis. Both kidneys demonstrate cysts. . Abdominal aorta is partially obscured by bowel gas, visualized portions are non-aneurysmal . Impression: Negative for gallstones or dilated bile ducts Hepatic surface nodularity, may indicate early cirrhotic changes Hepatomegaly Incidental finding bilateral renal cysts (2) Malnutrition Assessment & Plan: DAILY ESTIMATED NEEDS: Needs based on Critical care, sepsis 71.8 kg 22-30 kcals/kg 1475-0973 total kcals 1.2-2 g protein/kg 86- 144 g total protein 25-30 mL/kg 1795- 2154 total fluid mLs NUTRITION DIAGNOSIS: * Swallowing difficulty R/T respiratory status and dysphagia as evidenced by pt is vent dep, on TF. * Altered nutrition related lab values r/t sepsis, clinical status, h/o Diabetes as evidenced by critically elev WBC (47.2), low Hgb (6.6), elev BNP, low BP (96/41), BG 191, POC 179. CURRENT TF: Jevity 1.2 @ 70mL/hr x 20hr - NOW NPO ENTERAL NUTRITION RECOMMENDATIONS: Vital 1.2 @55mL/hr x24 hrs to provide 1320mL, 1584kcal, 99g pro, 1071mL free H2O * As medically appropriate to feed, rec TF change to VITAL 1.2 for critical care. * Start Vital 1,2, @25mL, advance as tolerated 10ml/hr q4-6 hrs to goal * HOB over 30 degrees/ water flush per MD --- Low Hgb (6.6), NPO per GI-> rec trophic feeds when appropriate if pt remains hypotensive. ADDITIONAL RECOMMENDATIONS: * Per SNF: HT 68 inches WT 158 lbs + Daily calibrated bed scale wts * Change TF to Vital 1.2, as medically able to feed * Monitor lytes (replete as needed) * F/up w/ WC eval . (3) Sacral decubitus ulcer Assessment & Plan: Pt presented on admission with contractures and multiple pressure injuries. Partially opened DTPI L buttocks. Base of wound moist - viable with surrounding dark and fluctuant borders.(L)1.2cm x (W)1cm. Small amt of sanguineous exudate noted. No odor noted. Hyperpigmentation noted to sacrum. Historical scar from previous wound noted to L trochanter. Penile head retracted within foreskin and small wound noted within folds of foreskin. Wound is moist and viable. No odor or exudate noted. No erythema noted periwound. Resolving pressure injury plantar R heel. Base of wound 50% epithelialized, 50% moist and viable.(L)5.5cm x (W)6.5cm. Resolving pressure injury lateral L heel. Base of wound is moist and viable with surrounding hyperpigmentation.(L)0.6cm x (W)0.5cm. Scattered loose, dry brown skin noted to medial and posterior L heel. Tx.Plan: Apply Moisture Barrier Paste to L buttocks and sacrum. Cover with Optifoam drsg. Change every 3 days and prn. Cleanse head of penis with soap and water. Apply Bacitracin oint Twice Daily. Apply Betadine to R and L heel wounds. Cover each heel with Optifoam drsg. Daily and prn. APM/ABDELRAHMAN Mattress overlay. Reposition at least every 2hours and prn. Off-load heels with pillow. Don Carvalho Dec 09, 2018 13:20
[2018-12-09 13:52] LABS: APPEARANCE,URINE TURBID; BILIRUBIN, URINE NEGATIVE (NEGATIVE); COLOR,URINE RED; GLUCOSE, URINE (UA) NEGATIVE (NEGATIVE); KETONES,URINE 1+ (NEGATIVE); LEUKOCYTE ESTERASE ,URINE 3+ (NEGATIVE); NITRITE,URINE NEGATIVE (NEGATIVE); PH,URINE 7 (4.5-8.0); PROTEIN,URINE 4+ (NEGATIVE); UROBILINOGEN,URINE NORMAL MG/DL (0.0-1.0)
[2018-12-09] MEDS: Piperacillin/Tazobactam 3.375 GM in NS 110 ML IVPB SCH ×2 (14:50→21:05)
[2018-12-09] MEDS: metroNIDAZOLE 500mg tab GT SCH ×2 (14:50→21:05)
--- NOTE | 2018-12-09 14:50 | Nephrology Progress Note ---
Assessment/Plan Problem List: (1) Hematuria Assessment: persistant (2) Septic shock Assessment: WBCs rising (3) Ventilator dependence (4) Renal failure (ARF), acute on chronic (5) Prostate enlargement (6) Anemia (7) Hyperosmolality with hypernatremia Assessment Septic Shock Acute renal failure CKD underlying BPH Sever Anemia Chronic trach-Vent DM HypoAlbuminemia HyperNatremia Dementia Troponin elevation Plan one liter D5W doing poorly transfused WBC kevin and has hematuria ! Anemia worsened, transfused Patient DNR , but not comfort care Will discuss the plan of care D5W for hyperNatremia now in SDU family agreed to DNR labs reviewed- mag IV as needed avoid Nephrotoxics transfuse as needed crabtree monitor urine out put and renal parameters per orders Subjective ROS Limited/Unobtainable: Yes Objective Objective Last 24 Hour Vital Signs Date Time Temp Pulse Resp B/P (MAP) Pulse Ox O2 Delivery O2 Flow Rate FiO2 12/09/18 12:50 95 24 40 12/09/18 12:00 Mechanical Ventilator 12/09/18 12:00 98.1 85 28 147/95 (112) 96 12/09/18 12:00 85 12/09/18 12:00 40 12/09/18 10:45 87 24 40 12/09/18 08:37 98 22 40 12/09/18 08:00 40 12/09/18 08:00 Mechanical Ventilator 12/09/18 08:00 99.3 95 24 135/88 (104) 95 12/09/18 07:48 95 12/09/18 06:40 101 25 40 12/09/18 04:32 90 18 40 12/09/18 04:00 98.9 93 24 122/67 (85) 95 12/09/18 04:00 40 12/09/18 04:00 Mechanical Ventilator 12/09/18 03:57 90 12/09/18 02:50 94 27 40 12/09/18 00:56 95 28 40 12/09/18 00:00 40 12/09/18 00:00 98.1 98 25 153/79 (103) 100 12/09/18 00:00 Mechanical Ventilator 12/08/18 23:37 92 12/08/18 23:16 97 24 40 12/08/18 20:53 98.2 12/08/18 20:53 98.2 12/08/18 20:32 101 27 40 12/08/18 20:00 Mechanical Ventilator 12/08/18 20:00 40 12/08/18 20:00 99.6 98 24 146/73 (97) 96 12/08/18 19:34 97 12/08/18 19:16 93 25 40 12/08/18 17:19 109 39 40 12/08/18 16:00 100.1 84 19 134/57 (82) 100 12/08/18 16:00 40 12/08/18 16:00 Mechanical Ventilator 12/08/18 16:00 84 12/08/18 15:01 87 23 40 Intake and Output 12/08/18 12/09/18 19:00 07:00 Intake Total 940 ml 980 ml Output Total 240 ml 175 ml Balance 700 ml 805 ml Intake Free Water 100 ml 260 ml Tube Feeding 660 ml 660 ml Other 180 ml 60 ml Output Urine Total 240 ml 175 ml # Voids 34 # Bowel Movements 1 Laboratory Tests 12/09/18 06:50: White Blood Count 30.2*H, Red Blood Count 3.54L, Hemoglobin 9.4L, Hematocrit 30.9L, Mean Corpuscular Volume 87, Mean Corpuscular Hemoglobin 26.7L, Mean Corpuscular Hemoglobin Concent 30.6L, Red Cell Distribution Width 16.3H, Platelet Count 286, Mean Platelet Volume 5.9L, Neutrophils (%) (Auto) , Lymphocytes (%) (Auto) , Monocytes (%) (Auto) , Eosinophils (%) (Auto) , Basophils (%) (Auto) , Differential Total Cells Counted 100, Neutrophils % ( Manual) 82H, Lymphocytes % (Manual) 8L, Monocytes % (Manual) 9, Eosinophils % ( Manual) 1, Basophils % (Manual) 0, Band Neutrophils 0, Platelet Estimate Adequate, Platelet Morphology Normal, Anisocytosis 1+, Erythrocyte Sedimentation Rate 62H, Prothrombin Time 12.9H, Prothromb Time International Ratio 1.2H, Activated Partial Thromboplast Time 29, Sodium Level 152H, Potassium Level 3.9, Chloride Level 113H, Carbon Dioxide Level 36H, Anion Gap 3L , Blood Urea Nitrogen 22H, Creatinine 1.1, Estimat Glomerular Filtration Rate , Glucose Level 130H, Calcium Level 8.2L, Total Bilirubin 0.3, Aspartate Amino Transf (AST/SGOT) 25, Alanine Aminotransferase (ALT/SGPT) 22, Alkaline Phosphatase 102, C-Reactive Protein, Quantitative > 70.0H, Total Protein 6.9, Albumin 1.5L, Globulin 5.4, Albumin/Globulin Ratio 0.3L, Lipase 105 12/09/18 13:00: Urine Color Red, Urine Appearance Turbid, Urine pH 7, Urine Specific [place] 1.005, Urine Protein 4+H, Urine Glucose (UA) Negative, Urine Ketones 1+H, Urine Blood 5+H, Urine Nitrite Negative, Urine Bilirubin Negative, Urine Urobilinogen Normal, Urine Leukocyte Esterase 3+H, Urine RBC TntcH, Urine WBC 15-20H, Urine Squamous Epithelial Cells Occasional, Urine Bacteria Few Height (Feet): 5 Height (Inches): 5.00 Weight (Pounds): 200 General Appearance: no apparent distress Cardiovascular: tachycardia Respiratory/Chest: decreased breath sounds Abdomen: distended Objective no change Randolph Fernandes MD Dec 09, 2018 14:50
--- NOTE | 2018-12-09 15:23 | Pulmonology Progress Note ---
Assessment/Plan Assessment/Plan Pulmonary Progress Note Assessment/Plan Impression: Patient with Pneumonia - KPC/Acinetobacter/MDR pseudomonas, Proteus Ventilator dependant respiratory failure, stable Pulmonary Status Severe sepsis previously - WCC significantly elevated today NSTEMI Anemia sp TFN Dysphagia s/p G tube Chronic wounds Dementia Organic Brain Syndrome Diabetes Chronic renal disease BPH Penile wound Hematuria - Urology following CHF H/o Hypertension Severe Protein Calorie Malnutrition Plan antibiotic regimen per ID Repeat CXR pending monitor blood pressure HHN Q4 and monitor secretions and suction PRN on full vent support-AC- no wean transfuse PRN DNAR multiorgan disease with poor prognosis monitor oxygen needs- and adjust monitor labs DVT and PUD prophylaxis Gtube feeds as able; monitor residuals and reflux aspiration monitor residuals for change will need residential care medications/laboratory data/nursing notes reviewed in detail note reviewed and edited care discussed with RN and RT Interval Events: care noted vitals stable poor LOC f ROS Limited/Unobtainable: Yes Condition: critical EKG Rhythm: Sinus Rhythm Residuals: minimal Tube Feeding Tolerated: yes Vital Signs Noted Labs Noted CXR: Impression: Unchanged Objective: WDWN NAD on vent and poorly responsive reduced breath sounds bilaterally with noted rhonchi [id number] without MRG NABS nontender no HSM; GT; non distended no CC mild edema nonfocal reduced LOC skin noted reviewed and edited Sputum: Organism 1 K.PNEUMONIAE CARBAPENEM RESIST GROWTH: 4+ only sens Colist[place] Organism 2 A.BAUMANII COMPLX - MDR GROWTH: 4+ Organism 3 PSEUDOMONAS AERUGINOSA GROWTH: 4+ Organism 4 PROTEUS MIRABILIS GROWTH: 4+ Subjective ROS Limited/Unobtainable: No Allergies: Coded Allergies: TERAZOSIN (Verified Allergy, Unknown, 10/27/17) Objective Last 24 Hour Vital Signs Date Time Temp Pulse Resp B/P (MAP) Pulse Ox O2 Delivery O2 Flow Rate FiO2 12/09/18 15:14 87 32 40 12/09/18 12:50 95 24 40 12/09/18 12:00 Mechanical Ventilator 12/09/18 12:00 98.1 85 28 147/95 (112) 96 12/09/18 12:00 85 12/09/18 12:00 40 12/09/18 10:45 87 24 40 12/09/18 08:37 98 22 40 12/09/18 08:00 40 12/09/18 08:00 Mechanical Ventilator 12/09/18 08:00 99.3 95 24 135/88 (104) 95 12/09/18 07:48 95 12/09/18 06:40 101 25 40 12/09/18 04:32 90 18 40 12/09/18 04:00 98.9 93 24 122/67 (85) 95 12/09/18 04:00 40 12/09/18 04:00 Mechanical Ventilator 12/09/18 03:57 90 12/09/18 02:50 94 27 40 12/09/18 00:56 95 28 40 12/09/18 00:00 40 12/09/18 00:00 98.1 98 25 153/79 (103) 100 12/09/18 00:00 Mechanical Ventilator 12/08/18 23:37 92 12/08/18 23:16 97 24 40 12/08/18 20:53 98.2 12/08/18 20:53 98.2 12/08/18 20:32 101 27 40 12/08/18 20:00 Mechanical Ventilator 12/08/18 20:00 40 12/08/18 20:00 99.6 98 24 146/73 (97) 96 12/08/18 19:34 97 12/08/18 19:16 93 25 40 12/08/18 17:19 109 39 40 12/08/18 16:00 100.1 84 19 134/57 (82) 100 12/08/18 16:00 40 12/08/18 16:00 Mechanical Ventilator 12/08/18 16:00 84 Intake and Output 12/08/18 12/09/18 19:00 07:00 Intake Total 940 ml 980 ml Output Total 240 ml 175 ml Balance 700 ml 805 ml Intake Free Water 100 ml 260 ml Tube Feeding 660 ml 660 ml Other 180 ml 60 ml Output Urine Total 240 ml 175 ml # Voids 34 # Bowel Movements 1 Laboratory Tests 12/09/18 06:50: White Blood Count 30.2*H, Red Blood Count 3.54L, Hemoglobin 9.4L, Hematocrit 30.9L, Mean Corpuscular Volume 87, Mean Corpuscular Hemoglobin 26.7L, Mean Corpuscular Hemoglobin Concent 30.6L, Red Cell Distribution Width 16.3H, Platelet Count 286, Mean Platelet Volume 5.9L, Neutrophils (%) (Auto) , Lymphocytes (%) (Auto) , Monocytes (%) (Auto) , Eosinophils (%) (Auto) , Basophils (%) (Auto) , Differential Total Cells Counted 100, Neutrophils % ( Manual) 82H, Lymphocytes % (Manual) 8L, Monocytes % (Manual) 9, Eosinophils % ( Manual) 1, Basophils % (Manual) 0, Band Neutrophils 0, Platelet Estimate Adequate, Platelet Morphology Normal, Anisocytosis 1+, Erythrocyte Sedimentation Rate 62H, Prothrombin Time 12.9H, Prothromb Time International Ratio 1.2H, Activated Partial Thromboplast Time 29, Sodium Level 152H, Potassium Level 3.9, Chloride Level 113H, Carbon Dioxide Level 36H, Anion Gap 3L , Blood Urea Nitrogen 22H, Creatinine 1.1, Estimat Glomerular Filtration Rate , Glucose Level 130H, Calcium Level 8.2L, Total Bilirubin 0.3, Aspartate Amino Transf (AST/SGOT) 25, Alanine Aminotransferase (ALT/SGPT) 22, Alkaline Phosphatase 102, C-Reactive Protein, Quantitative > 70.0H, Total Protein 6.9, Albumin 1.5L, Globulin 5.4, Albumin/Globulin Ratio 0.3L, Lipase 105 12/09/18 13:00: Urine Color Red, Urine Appearance Turbid, Urine pH 7, Urine Specific [place] 1.005, Urine Protein 4+H, Urine Glucose (UA) Negative, Urine Ketones 1+H, Urine Blood 5+H, Urine Nitrite Negative, Urine Bilirubin Negative, Urine Urobilinogen Normal, Urine Leukocyte Esterase 3+H, Urine RBC TntcH, Urine WBC 15-20H, Urine Squamous Epithelial Cells Occasional, Urine Bacteria Few Current Medications Medications (Trade) Dose Ordered Sig/Ruthie Route PRN Reason Start Time Stop Time Status Last Admin Dose Admin Acetaminophen (Tylenol) 650 mg Q6H PRN GT Mild Pain/Temp > 100.5 11/28/18 06:05 12/15/18 06:04 12/08/18 20:23 Atropine Sulfate (Atropine 0.4mg/ ml) 0.4 mg Q5M PRN IVP HR<30 for 30 seconds 11/28/18 06:09 12/28/18 06:08 Bacitracin (Bacitracin 15gm tube) 1 applic BID TOPIC 12/01/18 18:00 12/31/18 17:59 12/09/18 09:50 Bisacodyl (Dulcolax) 10 mg DAILYPRN PRN RECTAL Constipation 11/28/18 06:05 12/18/18 06:04 Dextrose 1,000 ml @ 100 mls/hr Q10H IV 12/09/18 14:45 01/08/19 14:44 12/09/18 15:00 Dextrose (Dextrose 50%) 25 ml Q30M PRN IV Hypoglycemia 11/28/18 06:15 12/15/18 09:38 Dextrose (Dextrose 50%) 50 ml Q30M PRN IV Hypoglycemia 11/28/18 06:15 12/15/18 05:44 Insulin Aspart (NovoLOG) EVERY 6 HOURS SUBQ 12/08/18 12:00 12/15/18 06:29 12/09/18 12:16 Lansoprazole (Prevacid) 30 mg BID GT 11/28/18 18:00 12/28/18 17:59 12/09/18 09:49 Lorazepam (Ativan 2mg/ml 1ml) 0.5 mg Q2H PRN IV For Anxiety 12/05/18 14:56 12/12/18 14:55 12/07/18 17:19 Metronidazole (Flagyl) 500 mg Q8HR GT 12/09/18 14:00 12/16/18 13:59 12/09/18 14:50 Olanzapine (ZyPREXA Zydis) 7.5 mg DAILY GT 11/28/18 09:00 12/15/18 08:59 12/09/18 09:49 Piperacillin Sod/ Tazobactam Sod 3.375 gm/Sodium Chloride 110 ml @ 27.5 mls/hr EVERY 8 HOURS IVPB 12/09/18 14:00 12/14/18 13:59 12/09/18 14:50 Vancomycin HCl (Vanco rx to dose) 1 ea DAILY PRN MISC Per rx protocol 12/09/18 11:00 01/08/19 10:59 Vancomycin/Sodium Chloride 275 ml @ 137.5 mls/ hr Q24H IVPB 12/09/18 13:00 12/14/18 12:59 12/09/18 12:43 Booker Baumann MD Dec 09, 2018 15:22
[2018-12-09 16:00] VITALS: BP 110/72
--- NOTE | 2018-12-09 17:58 | Cardiac Electrophysiology PN ---
Assessment/Plan Assessment/Plan 1. S/P Septic shock with WBC 50,000 and lactic acid of 6. On IV antibiotic and IV fluid. 2. S/P multiple episodes of asystole with pauses of more than 10 seconds off any MCGEE or AVN blockers. DW Son Mr. Faraz Erickson on 11/23/18 at [phone]. Family refused the pacer and DNR. Echo Nl EF. 3. Congestive heart failure with BNP of more than 17,000. BNP 3000 range 4. Troponin elevation, likely due to renal failure and anemia and septic shock. The levels are flat. EKG does not show any ST elevation. 5. S/P Acute renal failure. Resolved BUN 15 and Cr now 0.8 6. Hypernatremia. Resolved. On D5W per Dr Fernandes 7. Ventilator-dependent respiratory failure, status post tracheostomy. 8. Dysphagia, status post PEG placement. 9. Profound anemia, hemoglobin of 6.5, rule out GI bleed. S/P blood transfusion and EGD. 10. Active hematuria, Fu Dr Lindsey 11. DNR, DNI DW RN Subjective Subjective Still has hematuria. RN at bedside. Objective Last 24 Hour Vital Signs Date Time Temp Pulse Resp B/P (MAP) Pulse Ox O2 Delivery O2 Flow Rate FiO2 12/09/18 17:19 93 32 40 12/09/18 16:00 40 12/09/18 16:00 Mechanical Ventilator 12/09/18 16:00 100.2 92 22 110/72 (85) 98 12/09/18 16:00 89 12/09/18 15:14 87 32 40 12/09/18 12:50 95 24 40 12/09/18 12:00 Mechanical Ventilator 12/09/18 12:00 98.1 85 28 147/95 (112) 96 12/09/18 12:00 85 12/09/18 12:00 40 12/09/18 10:45 87 24 40 12/09/18 08:37 98 22 40 12/09/18 08:00 40 12/09/18 08:00 Mechanical Ventilator 12/09/18 08:00 99.3 95 24 135/88 (104) 95 12/09/18 07:48 95 12/09/18 06:40 101 25 40 12/09/18 04:32 90 18 40 12/09/18 04:00 98.9 93 24 122/67 (85) 95 12/09/18 04:00 40 12/09/18 04:00 Mechanical Ventilator 12/09/18 03:57 90 12/09/18 02:50 94 27 40 12/09/18 00:56 95 28 40 12/09/18 00:00 40 12/09/18 00:00 98.1 98 25 153/79 (103) 100 12/09/18 00:00 Mechanical Ventilator 12/08/18 23:37 92 12/08/18 23:16 97 24 40 12/08/18 20:53 98.2 12/08/18 20:53 98.2 12/08/18 20:32 101 27 40 12/08/18 20:00 Mechanical Ventilator 12/08/18 20:00 40 12/08/18 20:00 99.6 98 24 146/73 (97) 96 12/08/18 19:34 97 12/08/18 19:16 93 25 40 Intake and Output 12/08/18 12/09/18 19:00 07:00 Intake Total 940 ml 980 ml Output Total 240 ml 175 ml Balance 700 ml 805 ml Intake Free Water 100 ml 260 ml Tube Feeding 660 ml 660 ml Other 180 ml 60 ml Output Urine Total 240 ml 175 ml # Voids 34 # Bowel Movements 1 Laboratory Tests Test 12/09/18 06:50 12/09/18 13:00 White Blood Count 30.2 K/UL (4.8-10.8) *H Red Blood Count 3.54 M/UL (4.70-6.10) L Hemoglobin 9.4 G/DL (14.2-18.0) L Hematocrit 30.9 % (42.0-52.0) L Mean Corpuscular Volume 87 FL (80-99) Mean Corpuscular Hemoglobin 26.7 PG (27.0-31.0) L Mean Corpuscular Hemoglobin Concent 30.6 G/DL (32.0-36.0) L Red Cell Distribution Width 16.3 % (11.6-14.8) H Platelet Count 286 K/UL (150-450) Mean Platelet Volume 5.9 FL (6.5-10.1) L Neutrophils (%) (Auto) % (45.0-75.0) Lymphocytes (%) (Auto) % (20.0-45.0) Monocytes (%) (Auto) % (1.0-10.0) Eosinophils (%) (Auto) % (0.0-3.0) Basophils (%) (Auto) % (0.0-2.0) Differential Total Cells Counted 100 Neutrophils % (Manual) 82 % (45-75) H Lymphocytes % (Manual) 8 % (20-45) L Monocytes % (Manual) 9 % (1-10) Eosinophils % (Manual) 1 % (0-3) Basophils % (Manual) 0 % (0-2) Band Neutrophils 0 % (0-8) Platelet Estimate Adequate Platelet Morphology Normal Anisocytosis 1+ Erythrocyte Sedimentation Rate 62 MM/HR (0-20) H Prothrombin Time 12.9 SEC (9.30-11.50) H Prothromb Time International Ratio 1.2 (0.9-1.1) H Activated Partial Thromboplast Time 29 SEC (23-33) Sodium Level 152 MMOL/L (136-145) H Potassium Level 3.9 MMOL/L (3.5-5.1) Chloride Level 113 MMOL/L (98-107) H Carbon Dioxide Level 36 MMOL/L (21-32) H Anion Gap 3 mmol/L (5-15) L Blood Urea Nitrogen 22 mg/dL (7-18) H Creatinine 1.1 MG/DL (0.55-1.30) Estimat Glomerular Filtration Rate mL/min (>60) Glucose Level 130 MG/DL (74-106) H Calcium Level 8.2 MG/DL (8.5-10.1) L Total Bilirubin 0.3 MG/DL (0.2-1.0) Aspartate Amino Transf (AST/SGOT) 25 U/L (15-37) Alanine Aminotransferase (ALT/SGPT) 22 U/L (12-78) Alkaline Phosphatase 102 U/L (46-116) C-Reactive Protein, Quantitative > 70.0 mg/dL (0.00-0.90) H Total Protein 6.9 G/DL (6.4-8.2) Albumin 1.5 G/DL (3.4-5.0) L Globulin 5.4 g/dL Albumin/Globulin Ratio 0.3 (1.0-2.7) L Lipase 105 U/L (73-393) Urine Color Red Urine Appearance Turbid Urine pH 7 (4.5-8.0) Urine Specific [place] 1.005 (1.005-1.035) Urine Protein 4+ (NEGATIVE) H Urine Glucose (UA) Negative (NEGATIVE) Urine Ketones 1+ (NEGATIVE) H Urine Blood 5+ (NEGATIVE) H Urine Nitrite Negative (NEGATIVE) Urine Bilirubin Negative (NEGATIVE) Urine Urobilinogen Normal MG/DL (0.0-1.0) Urine Leukocyte Esterase 3+ (NEGATIVE) H Urine RBC Tntc /HPF (0 - 0) H Urine WBC 15-20 /HPF (0 - 0) H Urine Squamous Epithelial Cells Occasional /LPF Urine Bacteria Few /HPF (NONE) Objective HEAD AND NECK: Tracheostomy intact. LUNGS: Coarse rhonchi. Decreased breath sounds CARDIOVASCULAR: Irregular irregular S1 and S2 with no gallop. ABDOMEN: Status post G-tube, distended. EXTREMITIES: Reveal 1+ edema. Luke Prather MD Dec 09, 2018 17:58
[2018-12-09 20:00] VITALS: BP 108/53
[2018-12-10] VITALS: BP 107/74
[2018-12-10 04:00] VITALS: BP 146/76
[2018-12-10] MEDS: metroNIDAZOLE 500mg tab GT SCH ×3 (05:29→21:01)
[2018-12-10] MEDS: Piperacillin/Tazobactam 3.375 GM in NS 110 ML IVPB SCH ×3 (05:30→21:01)
[2018-12-10] MEDS: NovoLOG Insulin Flexpen SUBQ SCH ×4 (05:42→23:53)
[2018-12-10 08:00] VITALS: BP 137/63
[2018-12-10] MEDS: ZyPREXA Zydis 5mg tab GT SCH (08:33)
[2018-12-10] MEDS: Bacitracin Oint 15gm Tube TOPIC SCH ×2 (08:34→20:56)
--- NOTE | 2018-12-10 10:04 | General Progress Note ---
Assessment/Plan Problem List: (1) GIB (gastrointestinal bleeding) ICD Codes: K92.2 - Gastrointestinal hemorrhage, unspecified SNOMED: 32184520 (2) PEG (percutaneous endoscopic gastrostomy) status ICD Codes: Z93.1 - Gastrostomy status SNOMED: 841544109, 439461269 (3) Chronic renal disease ICD Codes: N18.9 - Chronic kidney disease, unspecified SNOMED: 807922380 (4) Prostate enlargement ICD Codes: N40.0 - Benign prostatic hyperplasia without lower urinary tract symptoms SNOMED: 293988269 (5) Anemia ICD Codes: D64.9 - Anemia, unspecified SNOMED: 153629507 (6) Septic shock ICD Codes: A41.9 - Sepsis, unspecified organism; R65.21 - Severe sepsis with septic shock SNOMED: 72733290 (7) Gastrostomy tube dependent ICD Codes: Z93.1 - Gastrostomy status SNOMED: 953066173, 341657628 Status: stable, progressing, unchanged Assessment/Plan: ppi prn blood transfusion abx per ID GTF EGD on hold given stable H&H and patient's poor medical condition hematuria>> fu urology recs Subjective ROS Limited/Unobtainable: No Allergies: Coded Allergies: TERAZOSIN (Verified Allergy, Unknown, 10/27/17) Objective Last 24 Hour Vital Signs Date Time Temp Pulse Resp B/P (MAP) Pulse Ox O2 Delivery O2 Flow Rate FiO2 12/10/18 09:23 82 22 40 12/10/18 08:00 Mechanical Ventilator 12/10/18 08:00 99.0 88 28 137/63 (87) 96 12/10/18 08:00 40 12/10/18 05:06 79 23 40 12/10/18 04:00 97.8 78 24 146/76 (99) 96 12/10/18 04:00 40 12/10/18 04:00 Mechanical Ventilator 12/10/18 03:42 77 12/10/18 03:28 81 28 40 12/10/18 02:45 80 24 96 Mechanical Ventilator 40 12/10/18 01:14 78 28 40 12/10/18 00:00 Mechanical Ventilator 12/10/18 00:00 40 12/10/18 00:00 98.4 84 28 107/74 (85) 95 12/09/18 23:28 82 12/09/18 23:19 83 26 40 12/09/18 21:15 90 23 40 12/09/18 20:00 88 12/09/18 20:00 Mechanical Ventilator 12/09/18 20:00 98.2 87 24 108/53 (71) 98 12/09/18 20:00 40 12/09/18 19:44 89 31 40 12/09/18 17:19 93 32 40 12/09/18 16:00 40 12/09/18 16:00 Mechanical Ventilator 12/09/18 16:00 100.2 92 22 110/72 (85) 98 12/09/18 16:00 89 12/09/18 15:14 87 32 40 12/09/18 12:50 95 24 40 12/09/18 12:00 Mechanical Ventilator 12/09/18 12:00 98.1 85 28 147/95 (112) 96 12/09/18 12:00 85 12/09/18 12:00 40 12/09/18 10:45 87 24 40 Intake and Output 12/09/18 12/10/18 19:00 07:00 Intake Total 1645.0 ml 2221.25 ml Output Total 100 ml 100 ml Balance 1545.0 ml 2121.25 ml Intake Free Water 200 ml 150 ml IV Total 785.0 ml 1351.25 ml Tube Feeding 660 ml 660 ml Other 60 ml Output Urine Total 100 ml 100 ml # Voids 2 # Bowel Movements 1 1 Laboratory Tests 12/09/18 13:00: Urine Color Red, Urine Appearance Turbid, Urine pH 7, Urine Specific [place] 1.005, Urine Protein 4+H, Urine Glucose (UA) Negative, Urine Ketones 1+H, Urine Blood 5+H, Urine Nitrite Negative, Urine Bilirubin Negative, Urine Urobilinogen Normal, Urine Leukocyte Esterase 3+H, Urine RBC TntcH, Urine WBC 15-20H, Urine Squamous Epithelial Cells Occasional, Urine Bacteria Few Height (Feet): 5 Height (Inches): 5.00 Weight (Pounds): 203 General Appearance: no apparent distress EENT: normal ENT inspection Neck: supple Cardiovascular: normal rate Respiratory/Chest: decreased breath sounds Abdomen: normal bowel sounds, non tender, soft Extremities: non-tender Juan Coronel MD Dec 10, 2018 10:03
--- NOTE | 2018-12-10 10:25 | Infectious Diseases Prog Note ---
Assessment/Plan Assessment/Plan IMPRESSION: Sepsis, Pyuria/ UTI treated Pneumonia with MDR pseudomonas, Acinetobacter, Proteus & Klebsiella treated BPH, ventilator-dependent respiratory failure Leukocytosis improving Acute renal failure, improving Diabetes mellitus, anemia, hypoxemic respiratory failure, dementia. 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 Phimosis/ paraphimosis Urethral stricture Asystole, cardiac pause DNR RECOMMENDATION: Continue IV Vancomycin, zosyn & GT Flagyl Will f/u CXR, UA, Urine culture, blood culture Poor prognosis Subjective ROS Limited/Unobtainable: Yes Constitutional: Reports: fever, other - low grade fever last evening Allergies: Coded Allergies: TERAZOSIN (Verified Allergy, Unknown, 10/27/17) Objective Vital Signs Last 24 Hour Vital Signs Date Time Temp Pulse Resp B/P (MAP) Pulse Ox O2 Delivery O2 Flow Rate FiO2 12/10/18 09:23 82 22 40 12/10/18 08:00 Mechanical Ventilator 12/10/18 08:00 99.0 88 28 137/63 (87) 96 12/10/18 08:00 40 12/10/18 07:15 94 32 40 12/10/18 05:06 79 23 40 12/10/18 04:00 97.8 78 24 146/76 (99) 96 12/10/18 04:00 40 12/10/18 04:00 Mechanical Ventilator 12/10/18 03:42 77 12/10/18 03:28 81 28 40 12/10/18 02:45 80 24 96 Mechanical Ventilator 40 12/10/18 01:14 78 28 40 12/10/18 00:00 Mechanical Ventilator 12/10/18 00:00 40 12/10/18 00:00 98.4 84 28 107/74 (85) 95 12/09/18 23:28 82 12/09/18 23:19 83 26 40 12/09/18 21:15 90 23 40 12/09/18 20:00 88 12/09/18 20:00 Mechanical Ventilator 12/09/18 20:00 98.2 87 24 108/53 (71) 98 12/09/18 20:00 40 12/09/18 19:44 89 31 40 12/09/18 17:19 93 32 40 12/09/18 16:00 40 12/09/18 16:00 Mechanical Ventilator 12/09/18 16:00 100.2 92 22 110/72 (85) 98 12/09/18 16:00 89 12/09/18 15:14 87 32 40 12/09/18 12:50 95 24 40 12/09/18 12:00 Mechanical Ventilator 12/09/18 12:00 98.1 85 28 147/95 (112) 96 12/09/18 12:00 85 12/09/18 12:00 40 12/09/18 10:45 87 24 40 Height (Feet): 5 Height (Inches): 5.00 Weight (Pounds): 203 HEENT: status post trach Respiratory/Chest: rhonchi - bilaterally, other - on ventilator Cardiovascular: normal rate Abdomen: soft, non tender, other - GT feeing Genitourinary: other - Turner catheter , hematuria Extremities: other - generalized edema Skin: ulcers, other - early stages Neurologic/Psychiatric: aphasia, other - opens eyes Microbiology Date/Time Source Procedure Growth Status 12/09/18 13:00 Indwelling Cath Urine Culture - Preliminary Resulted Laboratory Tests Test 12/09/18 13:00 Urine Color Red Urine Appearance Turbid Urine pH 7 (4.5-8.0) Urine Specific [place] 1.005 (1.005-1.035) Urine Protein 4+ (NEGATIVE) H Urine Glucose (UA) Negative (NEGATIVE) Urine Ketones 1+ (NEGATIVE) H Urine Blood 5+ (NEGATIVE) H Urine Nitrite Negative (NEGATIVE) Urine Bilirubin Negative (NEGATIVE) Urine Urobilinogen Normal MG/DL (0.0-1.0) Urine Leukocyte Esterase 3+ (NEGATIVE) H Urine RBC Tntc /HPF (0 - 0) H Urine WBC 15-20 /HPF (0 - 0) H Urine Squamous Epithelial Cells Occasional /LPF Urine Bacteria Few /HPF (NONE) Current Medications Medications (Trade) Dose Ordered Sig/Ruthie Route PRN Reason Start Time Stop Time Status Last Admin Dose Admin Acetaminophen (Tylenol) 650 mg Q6H PRN GT Mild Pain/Temp > 100.5 11/28/18 06:05 12/15/18 06:04 12/08/18 20:23 Atropine Sulfate (Atropine 0.4mg/ ml) 0.4 mg Q5M PRN IVP HR<30 for 30 seconds 11/28/18 06:09 12/28/18 06:08 Bacitracin (Bacitracin 15gm tube) 1 applic EVERY 12 HOURS TOPIC 12/09/18 21:00 12/31/18 17:59 12/10/18 08:34 Bisacodyl (Dulcolax) 10 mg DAILYPRN PRN RECTAL Constipation 11/28/18 06:05 12/18/18 06:04 Dextrose 1,000 ml @ 100 mls/hr Q10H IV 12/09/18 14:45 01/08/19 14:44 12/09/18 23:48 Dextrose (Dextrose 50%) 25 ml Q30M PRN IV Hypoglycemia 11/28/18 06:15 12/15/18 09:38 Dextrose (Dextrose 50%) 50 ml Q30M PRN IV Hypoglycemia 11/28/18 06:15 12/15/18 05:44 Insulin Aspart (NovoLOG) EVERY 6 HOURS SUBQ 12/08/18 12:00 12/15/18 06:29 12/10/18 05:42 Lansoprazole (Prevacid) 30 mg EVERY 12 HOURS GT 12/09/18 21:00 12/28/18 17:59 12/10/18 08:34 Lorazepam (Ativan 2mg/ml 1ml) 0.5 mg Q2H PRN IV For Anxiety 12/05/18 14:56 12/12/18 14:55 12/07/18 17:19 Metronidazole (Flagyl) 500 mg Q8HR GT 12/09/18 14:00 12/16/18 13:59 12/10/18 05:29 Olanzapine (ZyPREXA Zydis) 7.5 mg DAILY GT 11/28/18 09:00 12/15/18 08:59 12/10/18 08:33 Piperacillin Sod/ Tazobactam Sod 3.375 gm/Sodium Chloride 110 ml @ 27.5 mls/hr EVERY 8 HOURS IVPB 12/09/18 14:00 12/14/18 13:59 12/10/18 05:30 Vancomycin HCl (Vanco rx to dose) 1 ea DAILY PRN MISC Per rx protocol 12/09/18 11:00 01/08/19 10:59 Vancomycin/Sodium Chloride 275 ml @ 137.5 mls/ hr Q24H IVPB 12/09/18 13:00 12/14/18 12:59 12/09/18 12:43 Anam Cruz MD 4, 2019 10:25
--- NOTE | 2018-12-10 10:46 | Surgery Progress Note ---
Surgery Progress Note Subjective Additional Comments overall deteriorating labs pending exam unchanged Objective Last 24 Hour Vital Signs Date Time Temp Pulse Resp B/P (MAP) Pulse Ox O2 Delivery O2 Flow Rate FiO2 12/10/18 09:23 82 22 40 12/10/18 08:00 Mechanical Ventilator 12/10/18 08:00 99.0 88 28 137/63 (87) 96 12/10/18 08:00 40 12/10/18 07:15 94 32 40 12/10/18 05:06 79 23 40 12/10/18 04:00 97.8 78 24 146/76 (99) 96 12/10/18 04:00 40 12/10/18 04:00 Mechanical Ventilator 12/10/18 03:42 77 12/10/18 03:28 81 28 40 12/10/18 02:45 80 24 96 Mechanical Ventilator 40 12/10/18 01:14 78 28 40 12/10/18 00:00 Mechanical Ventilator 12/10/18 00:00 40 12/10/18 00:00 98.4 84 28 107/74 (85) 95 12/09/18 23:28 82 12/09/18 23:19 83 26 40 12/09/18 21:15 90 23 40 12/09/18 20:00 88 12/09/18 20:00 Mechanical Ventilator 12/09/18 20:00 98.2 87 24 108/53 (71) 98 12/09/18 20:00 40 12/09/18 19:44 89 31 40 12/09/18 17:19 93 32 40 12/09/18 16:00 40 12/09/18 16:00 Mechanical Ventilator 12/09/18 16:00 100.2 92 22 110/72 (85) 98 12/09/18 16:00 89 12/09/18 15:14 87 32 40 12/09/18 12:50 95 24 40 12/09/18 12:00 Mechanical Ventilator 12/09/18 12:00 98.1 85 28 147/95 (112) 96 12/09/18 12:00 85 12/09/18 12:00 40 I&O Intake and Output 12/09/18 12/10/18 19:00 07:00 Intake Total 1645.0 ml 2221.25 ml Output Total 100 ml 100 ml Balance 1545.0 ml 2121.25 ml Intake Free Water 200 ml 150 ml IV Total 785.0 ml 1351.25 ml Tube Feeding 660 ml 660 ml Other 60 ml Output Urine Total 100 ml 100 ml # Voids 2 # Bowel Movements 1 1 Dressing: saturated Wound: other Drains: other Cardiovascular: RSR Respiratory: decreased breath sounds Abdomen: soft, present bowel sounds, non-distended Extremities: no cyanosis, other Laboratory Tests Test 12/09/18 13:00 Urine Color Red Urine Appearance Turbid Urine pH 7 (4.5-8.0) Urine Specific [place] 1.005 (1.005-1.035) Urine Protein 4+ (NEGATIVE) H Urine Glucose (UA) Negative (NEGATIVE) Urine Ketones 1+ (NEGATIVE) H Urine Blood 5+ (NEGATIVE) H Urine Nitrite Negative (NEGATIVE) Urine Bilirubin Negative (NEGATIVE) Urine Urobilinogen Normal MG/DL (0.0-1.0) Urine Leukocyte Esterase 3+ (NEGATIVE) H Urine RBC Tntc /HPF (0 - 0) H Urine WBC 15-20 /HPF (0 - 0) H Urine Squamous Epithelial Cells Occasional /LPF Urine Bacteria Few /HPF (NONE) Plan Problems: (1) Severe sepsis Assessment & Plan: leukocytosis, anemia, lactic acidosis, fevers IV Abx imaging noted and reviewed US with no stones or dilated ducts elevated lft's likely due to liver disease exam as below cont abx trend labs leave crabtree for a few weeks Overall prognosis very guarded Continue with current care Transfuse as needed Plan to be seen by urologist for hematuria check c diff imaging ordered thank you will follow with recs Findings: Exam is somewhat limited, due to gastrostomy tube and overlying bowel gas limiting visualization of the abdominal aorta Gallbladder is unremarkable, without stones, wall thickening, nor pericholecystic fluid. Sonographic Carl's sign is negative. Common bile duct measures 4 mm in diameter. No intrahepatic biliary ductal dilatation. Liver demonstrates normal echogenicity, no focal abnormality. It demonstrates slight surface nodularity. It is enlarged. There is a 1 cm cyst which appears adjacent to the gallbladder wall. This is probably a small exophytic hepatic cyst. Portal vein and hepatic veins are patent. Pancreas is unremarkable. Spleen is unremarkable. Left kidney measures 9.2 cm in length. Right kidney measures 10.2 cm length. Both kidneys demonstrate normal echogenicity. There is no hydronephrosis. Both kidneys demonstrate cysts. . Abdominal aorta is partially obscured by bowel gas, visualized portions are non-aneurysmal . Impression: Negative for gallstones or dilated bile ducts Hepatic surface nodularity, may indicate early cirrhotic changes Hepatomegaly Incidental finding bilateral renal cysts (2) Malnutrition Assessment & Plan: DAILY ESTIMATED NEEDS: Needs based on Critical care, sepsis 71.8 kg 22-30 kcals/kg 0706-8086 total kcals 1.2-2 g protein/kg 86- 144 g total protein 25-30 mL/kg 1795- 2154 total fluid mLs NUTRITION DIAGNOSIS: * Swallowing difficulty R/T respiratory status and dysphagia as evidenced by pt is vent dep, on TF. * Altered nutrition related lab values r/t sepsis, clinical status, h/o Diabetes as evidenced by critically elev WBC (47.2), low Hgb (6.6), elev BNP, low BP (96/41), BG 191, POC 179. CURRENT TF: Jevity 1.2 @ 70mL/hr x 20hr - NOW NPO ENTERAL NUTRITION RECOMMENDATIONS: Vital 1.2 @55mL/hr x24 hrs to provide 1320mL, 1584kcal, 99g pro, 1071mL free H2O * As medically appropriate to feed, rec TF change to VITAL 1.2 for critical care. * Start Vital 1,2, @25mL, advance as tolerated 10ml/hr q4-6 hrs to goal * HOB over 30 degrees/ water flush per MD --- Low Hgb (6.6), NPO per GI-> rec trophic feeds when appropriate if pt remains hypotensive. ADDITIONAL RECOMMENDATIONS: * Per SNF: HT 68 inches WT 158 lbs + Daily calibrated bed scale wts * Change TF to Vital 1.2, as medically able to feed * Monitor lytes (replete as needed) * F/up w/ WC eval . (3) Sacral decubitus ulcer Assessment & Plan: Pt presented on admission with contractures and multiple pressure injuries. Partially opened DTPI L buttocks. Base of wound moist - viable with surrounding dark and fluctuant borders.(L)1.2cm x (W)1cm. Small amt of sanguineous exudate noted. No odor noted. Hyperpigmentation noted to sacrum. Historical scar from previous wound noted to L trochanter. Penile head retracted within foreskin and small wound noted within folds of foreskin. Wound is moist and viable. No odor or exudate noted. No erythema noted periwound. Resolving pressure injury plantar R heel. Base of wound 50% epithelialized, 50% moist and viable.(L)5.5cm x (W)6.5cm. Resolving pressure injury lateral L heel. Base of wound is moist and viable with surrounding hyperpigmentation.(L)0.6cm x (W)0.5cm. Scattered loose, dry brown skin noted to medial and posterior L heel. Tx.Plan: Apply Moisture Barrier Paste to L buttocks and sacrum. Cover with Optifoam drsg. Change every 3 days and prn. Cleanse head of penis with soap and water. Apply Bacitracin oint Twice Daily. Apply Betadine to R and L heel wounds. Cover each heel with Optifoam drsg. Daily and prn. APM/ABDELRAHMAN Mattress overlay. Reposition at least every 2hours and prn. Off-load heels with pillow. Don Carvalho Dec 10, 2018 10:46
[2018-12-10 12:00] VITALS: BP 131/70
[2018-12-10] MEDS: Vancomycin 1.5gm/NS Premix IVPB SCH (12:49)
--- NOTE | 2018-12-10 13:36 | Cardiac Electrophysiology PN ---
Assessment/Plan Assessment/Plan 1. S/P Septic shock with WBC 50,000 and lactic acidosis WBC still 30K despite IV antibiotic and IV fluid. 2. S/P multiple episodes of asystole with pauses of more than 10 seconds off any MCGEE or AVN blockers. DW Son Mr. Faraz Erickson on 11/23/18 at [phone]. Family refused the pacer and DNR. Echo Nl EF. 3. Congestive heart failure with BNP of more than 17,000. BNP 3000 range 4. Troponin elevation, likely due to renal failure and anemia and septic shock. The levels are flat. EKG does not show any ST elevation. 5. S/P Acute renal failure. Resolved BUN 15 and Cr now 0.8 6. Hypernatremia. Resolved. On D5W per Dr Fernandes 7. Ventilator-dependent respiratory failure, status post tracheostomy. 8. Dysphagia, status post PEG placement. 9. Profound anemia, hemoglobin of 6.5, rule out GI bleed. S/P blood transfusion and EGD. 10. Active hematuria, Fu Dr Lindsey 11. DNR, DNI DW RN Subjective Subjective Still has hematuria. RN at bedside. Dr Lindsey following Objective Last 24 Hour Vital Signs Date Time Temp Pulse Resp B/P (MAP) Pulse Ox O2 Delivery O2 Flow Rate FiO2 12/10/18 12:00 Mechanical Ventilator 12/10/18 12:00 99.0 84 22 131/70 (90) 99 12/10/18 12:00 40 12/10/18 11:05 92 18 40 12/10/18 09:23 82 22 40 12/10/18 08:00 Mechanical Ventilator 12/10/18 08:00 79 12/10/18 08:00 99.0 88 28 137/63 (87) 96 12/10/18 08:00 40 12/10/18 07:15 94 32 40 12/10/18 05:06 79 23 40 12/10/18 04:00 97.8 78 24 146/76 (99) 96 12/10/18 04:00 40 12/10/18 04:00 Mechanical Ventilator 12/10/18 03:42 77 12/10/18 03:28 81 28 40 12/10/18 02:45 80 24 96 Mechanical Ventilator 40 12/10/18 01:14 78 28 40 12/10/18 00:00 Mechanical Ventilator 12/10/18 00:00 40 12/10/18 00:00 98.4 84 28 107/74 (85) 95 12/09/18 23:28 82 12/09/18 23:19 83 26 40 12/09/18 21:15 90 23 40 12/09/18 20:00 88 12/09/18 20:00 Mechanical Ventilator 12/09/18 20:00 98.2 87 24 108/53 (71) 98 12/09/18 20:00 40 12/09/18 19:44 89 31 40 12/09/18 17:19 93 32 40 12/09/18 16:00 40 12/09/18 16:00 Mechanical Ventilator 12/09/18 16:00 100.2 92 22 110/72 (85) 98 12/09/18 16:00 89 12/09/18 15:14 87 32 40 Intake and Output 12/09/18 12/10/18 19:00 07:00 Intake Total 1645.0 ml 2221.25 ml Output Total 100 ml 100 ml Balance 1545.0 ml 2121.25 ml Intake Free Water 200 ml 150 ml IV Total 785.0 ml 1351.25 ml Tube Feeding 660 ml 660 ml Other 60 ml Output Urine Total 100 ml 100 ml # Voids 2 # Bowel Movements 1 1 Microbiology Date/Time Source Procedure Growth Status 12/09/18 13:00 Indwelling Cath Urine Culture - Preliminary Resulted Objective HEAD AND NECK: Tracheostomy intact. LUNGS: Coarse rhonchi. Decreased breath sounds CARDIOVASCULAR: Irregular irregular S1 and S2 with no gallop. ABDOMEN: Status post G-tube, distended. EXTREMITIES: Reveal 1+ edema. Luke Prather MD Dec 10, 2018 13:36
--- NOTE | 2018-12-10 15:33 | Nephrology Progress Note ---
Assessment/Plan Problem List: (1) Hematuria Assessment: persistant (2) Septic shock Assessment: WBCs rising (3) Ventilator dependence (4) Renal failure (ARF), acute on chronic (5) Prostate enlargement (6) Anemia (7) Hyperosmolality with hypernatremia Assessment Septic Shock Acute renal failure CKD underlying BPH Sever Anemia Chronic trach-Vent DM HypoAlbuminemia HyperNatremia Dementia Troponin elevation Plan no labs today one liter D5W doing poorly transfused WBC kevin and has hematuria ! Anemia worsened, transfused Patient DNR , but not comfort care Will discuss the plan of care D5W for hyperNatremia now in SDU family agreed to DNR labs reviewed- mag IV as needed avoid Nephrotoxics transfuse as needed crab[place] monitor urine out put and renal parameters per orders Subjective ROS Limited/Unobtainable: Yes Objective Objective Last 24 Hour Vital Signs Date Time Temp Pulse Resp B/P (MAP) Pulse Ox O2 Delivery O2 Flow Rate FiO2 12/10/18 12:00 Mechanical Ventilator 12/10/18 12:00 99.0 84 22 131/70 (90) 99 12/10/18 12:00 40 12/10/18 12:00 79 12/10/18 11:05 92 18 40 12/10/18 09:23 82 22 40 12/10/18 08:00 Mechanical Ventilator 12/10/18 08:00 79 12/10/18 08:00 99.0 88 28 137/63 (87) 96 12/10/18 08:00 40 12/10/18 07:15 94 32 40 12/10/18 05:06 79 23 40 12/10/18 04:00 97.8 78 24 146/76 (99) 96 12/10/18 04:00 40 12/10/18 04:00 Mechanical Ventilator 12/10/18 03:42 77 12/10/18 03:28 81 28 40 12/10/18 02:45 80 24 96 Mechanical Ventilator 40 12/10/18 01:14 78 28 40 12/10/18 00:00 Mechanical Ventilator 12/10/18 00:00 40 12/10/18 00:00 98.4 84 28 107/74 (85) 95 12/09/18 23:28 82 12/09/18 23:19 83 26 40 12/09/18 21:15 90 23 40 12/09/18 20:00 88 12/09/18 20:00 Mechanical Ventilator 12/09/18 20:00 98.2 87 24 108/53 (71) 98 12/09/18 20:00 40 12/09/18 19:44 89 31 40 12/09/18 17:19 93 32 40 12/09/18 16:00 40 12/09/18 16:00 Mechanical Ventilator 12/09/18 16:00 100.2 92 22 110/72 (85) 98 12/09/18 16:00 89 Intake and Output 12/09/18 12/10/18 19:00 07:00 Intake Total 1645.0 ml 2221.25 ml Output Total 100 ml 100 ml Balance 1545.0 ml 2121.25 ml Intake Free Water 200 ml 150 ml IV Total 785.0 ml 1351.25 ml Tube Feeding 660 ml 660 ml Other 60 ml Output Urine Total 100 ml 100 ml # Voids 2 # Bowel Movements 1 1 Height (Feet): 5 Height (Inches): 5.00 Weight (Pounds): 203 General Appearance: no apparent distress EENT: other - trach-vent Cardiovascular: tachycardia Respiratory/Chest: decreased breath sounds Abdomen: distended Objective no change Randolph Fernandes MD Dec 10, 2018 15:33
--- NOTE | 2018-12-10 15:39 | Hematology/Onc Progress Note ---
Assessment/Plan Assessment/Plan ASSESSMENT AND RECOMMENDATIONS # Leukocytosis. Likely related to underlying infection with sepsis and elevated severely on admission --> Imaging has been reviewed. Shows cxr left lung inil/v edema --> Blood cs and urine cx are have been reviewed --> Has been started on abx, empiric tx (zosyn)--> colistin/cipro/ceftaz--> ceftazadime-> VANC/ZOSYN/flagyl --> PERIPHERAL SMEAR SHOWS ATYPICAL LYMPHOCYTES--> has stabilized, improved --> Flow cytometry ordered with pathologist -> no atypical findings are noted --> wbc 52k-->47k-->29k->16-->12-->14->12-->12-->21-->14->11->15->9-->11.4->24k- >28k-->16k-->13-->17k-->16k-->30 --> picc was repositioned --> is off of any steriods, daily md review --> for urology evaluation with hematuria, improved --> c.diff pppears negative for now # Anemia of chronic disease, due to underlying chronic medical issues, multifactorial. --> Anemia w/u has been ordered --> with hyperferritinemia --> No evidence of hemolysis noted, peripheral smear has been reviewed --> Hgb goal >7. Transfuse as needed --> hgb trend 7.5-->6.6->9.1-->9.2-->8.9-->9.9->8.3-->8.5-->9.3-->8.2->8.4-->7.1 -->10.6-->9.8 --> 2 units transfuse on 11/15, 2 more 12/04 --> will need to follow as outpatient and may need chelation therapy --> GI workup with egd showed gastritis --> hematuria eval as per UROL # Failure to thrive (FTT) - decreased bmi and low protein --> cea 4.3 --> will obtain q3 day caloric counts --> mirtazapine as appetite stimulant --> GI consult on a prn basis, as needed for endosc # Asystole with pauses may need pm per family --> as per cards recs --> refusing pm # Sepsis, which has improved --> abx as per id # dysphagia s/p PEG # Malnutrition. 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 Greatly appreciate consultation. Subjective Constitutional: Denies: no symptoms, chills, fever, malaise, weakness, other HEENT: Denies: no symptoms, eye pain, blurred vision, tearing, double vision, ear pain, ear discharge, nose pain, nose congestion, throat pain, throat swelling, mouth pain, mouth swelling, other Cardiovascular: Denies: no symptoms, chest pain, edema, irregular heart rate, lightheadedness, palpitations, syncope, other Gastrointestinal/Abdominal: Denies: no symptoms, abdomen distended, abdominal pain, black stools, tarry stools, blood in stool, constipated, diarrhea, difficulty swallowing, nausea, poor appetite, poor fluid intake, rectal bleeding , vomiting, other Genitourinary: Denies: no symptoms, burning, discharge, frequency, flank pain, hematuria, incontinence, pain, urgency, other Neurologic/Psychiatric: Denies: no symptoms, anxiety, depressed, emotional problems, headache, numbness, paresthesia, pre-existing deficit, seizure, tingling, tremors, weakness, other Allergies: Coded Allergies: TERAZOSIN (Verified Allergy, Unknown, 10/27/17) Subjective 11/16: in the icu, is off pressors, doing better, no bleeding 11/18: no bleeding, remains on doxy and zosyn, no bleeding reported 11/19: out of the icu, on vent/trach, no major changes, dw rn 11/20: no bleeding noted, no night sweats, meds reviewed, no f/c 11/21: on vent, obtunded, with gt ongong, with picc, no bleeding 10.17: stricture advanced through with uro, with crabtree, labs noted 11/23: no events to report, no bleeding, labs reviewed, in icu 11/24: remains in the icu, with asystole, pending discussion with marlyn re pM 11/25: continues to have pauses, no bleeding, seen by cards, no events 11/26: no ets, no bleeding noted, no night sweats, no f/c 11/27: hgb 8.2, no bleeding or chills, no major changes on trach/vent, jimenez RN 11/28: agitated today, on vent/trach, jimenez rn, potential dc to [facility] 11/29: obtunded, is out of the unit, labs noted, wbc 24k 11/30: gt feeds on hold, no bleeding reported, no night sweats 12/01: is on abx, no bleeding, no f/c, no night sweats noted 12/04: no events to report, hgb 7.1, nor chills noted, to get 2 unit prbc 12/05: for blood transfusion which was completed, but wbc higher, with hematruia , is dnr 12/06: no events, no bleeding, hematuria is improved, labs pending, on vent/ trach 12/07: no bleeding, no chills, labs noted, hgb higher 12/09: on vent and gtube feeds, no night sweats, no major changes 12/10: seen by id, is on vanc/zosyn, flagyl, still with hematuria, labs noted Objective Objective Current Medications Medications (Trade) Dose Ordered Sig/Ruthie Route PRN Reason Start Time Stop Time Status Last Admin Dose Admin Acetaminophen (Tylenol) 650 mg Q6H PRN GT Mild Pain/Temp > 100.5 11/28/18 06:05 12/15/18 06:04 12/08/18 20:23 Atropine Sulfate (Atropine 0.4mg/ ml) 0.4 mg Q5M PRN IVP HR<30 for 30 seconds 11/28/18 06:09 12/28/18 06:08 Bacitracin (Bacitracin 15gm tube) 1 applic EVERY 12 HOURS TOPIC 12/09/18 21:00 12/31/18 17:59 12/10/18 08:34 Bisacodyl (Dulcolax) 10 mg DAILYPRN PRN RECTAL Constipation 11/28/18 06:05 12/18/18 06:04 Dextrose (Dextrose 50%) 25 ml Q30M PRN IV Hypoglycemia 11/28/18 06:15 12/15/18 09:38 Dextrose (Dextrose 50%) 50 ml Q30M PRN IV Hypoglycemia 11/28/18 06:15 12/15/18 05:44 Insulin Aspart (NovoLOG) EVERY 6 HOURS SUBQ 12/08/18 12:00 12/15/18 06:29 12/10/18 12:44 Lansoprazole (Prevacid) 30 mg EVERY 12 HOURS GT 12/09/18 21:00 12/28/18 17:59 12/10/18 08:34 Lorazepam (Ativan 2mg/ml 1ml) 0.5 mg Q2H PRN IV For Anxiety 12/05/18 14:56 12/12/18 14:55 12/07/18 17:19 Metronidazole (Flagyl) 500 mg Q8HR GT 12/09/18 14:00 12/16/18 13:59 12/10/18 14:54 Olanzapine (ZyPREXA Zydis) 7.5 mg DAILY GT 11/28/18 09:00 12/15/18 08:59 12/10/18 08:33 Piperacillin Sod/ Tazobactam Sod 3.375 gm/Sodium Chloride 110 ml @ 27.5 mls/hr EVERY 8 HOURS IVPB 12/09/18 14:00 12/14/18 13:59 12/10/18 14:54 Vancomycin HCl (Vanco rx to dose) 1 ea DAILY PRN MISC Per rx protocol 12/09/18 11:00 01/08/19 10:59 Vancomycin/Sodium Chloride 275 ml @ 137.5 mls/ hr Q24H IVPB 12/09/18 13:00 12/14/18 12:59 12/10/18 12:49 Last 24 Hour Vital Signs Date Time Temp Pulse Resp B/P (MAP) Pulse Ox O2 Delivery O2 Flow Rate FiO2 12/10/18 12:00 Mechanical Ventilator 12/10/18 12:00 99.0 84 22 131/70 (90) 99 12/10/18 12:00 40 12/10/18 12:00 79 12/10/18 11:05 92 18 40 12/10/18 09:23 82 22 40 12/10/18 08:00 Mechanical Ventilator 12/10/18 08:00 79 12/10/18 08:00 99.0 88 28 137/63 (87) 96 12/10/18 08:00 40 12/10/18 07:15 94 32 40 12/10/18 05:06 79 23 40 12/10/18 04:00 97.8 78 24 146/76 (99) 96 12/10/18 04:00 40 12/10/18 04:00 Mechanical Ventilator 12/10/18 03:42 77 12/10/18 03:28 81 28 40 12/10/18 02:45 80 24 96 Mechanical Ventilator 40 12/10/18 01:14 78 28 40 12/10/18 00:00 Mechanical Ventilator 12/10/18 00:00 40 12/10/18 00:00 98.4 84 28 107/74 (85) 95 12/09/18 23:28 82 12/09/18 23:19 83 26 40 12/09/18 21:15 90 23 40 12/09/18 20:00 88 12/09/18 20:00 Mechanical Ventilator 12/09/18 20:00 98.2 87 24 108/53 (71) 98 12/09/18 20:00 40 12/09/18 19:44 89 31 40 12/09/18 17:19 93 32 40 12/09/18 16:00 40 12/09/18 16:00 Mechanical Ventilator 12/09/18 16:00 100.2 92 22 110/72 (85) 98 12/09/18 16:00 89 12/09/18 15:14 87 32 40 12/09/18 12:50 95 24 40 12/09/18 12:00 Mechanical Ventilator 12/09/18 12:00 98.1 85 28 147/95 (112) 96 12/09/18 12:00 85 12/09/18 12:00 40 12/09/18 10:45 87 24 40 12/09/18 08:37 98 22 40 12/09/18 08:00 40 12/09/18 08:00 Mechanical Ventilator 12/09/18 08:00 99.3 95 24 135/88 (104) 95 12/09/18 07:48 95 12/09/18 06:40 101 25 40 12/09/18 04:32 90 18 40 12/09/18 04:00 98.9 93 24 122/67 (85) 95 12/09/18 04:00 40 12/09/18 04:00 Mechanical Ventilator 12/09/18 03:57 90 12/09/18 02:50 94 27 40 12/09/18 00:56 95 28 40 12/09/18 00:00 40 12/09/18 00:00 98.1 98 25 153/79 (103) 100 12/09/18 00:00 Mechanical Ventilator 12/08/18 23:37 92 12/08/18 23:16 97 24 40 12/08/18 20:53 98.2 12/08/18 20:53 98.2 12/08/18 20:32 101 27 40 12/08/18 20:00 Mechanical Ventilator 12/08/18 20:00 40 12/08/18 20:00 99.6 98 24 146/73 (97) 96 12/08/18 19:34 97 12/08/18 19:16 93 25 40 12/08/18 17:19 109 39 40 12/08/18 16:00 100.1 84 19 134/57 (82) 100 12/08/18 16:00 40 12/08/18 16:00 Mechanical Ventilator 12/08/18 16:00 84 Intake and Output 12/09/18 12/10/18 19:00 07:00 Intake Total 1645.0 ml 2221.25 ml Output Total 100 ml 100 ml Balance 1545.0 ml 2121.25 ml Intake Free Water 200 ml 150 ml IV Total 785.0 ml 1351.25 ml Tube Feeding 660 ml 660 ml Other 60 ml Output Urine Total 100 ml 100 ml # Voids 2 # Bowel Movements 1 1 Labs Test 12/08/18 03:50 12/09/18 06:50 12/09/18 13:00 White Blood Count 32.7 K/UL (4.8-10.8) 30.2 K/UL (4.8-10.8) Red Blood Count 3.58 M/UL (4.70-6.10) 3.54 M/UL (4.70-6.10) Hemoglobin 9.8 G/DL (14.2-18.0) 9.4 G/DL (14.2-18.0) Hematocrit 31.2 % (42.0-52.0) 30.9 % (42.0-52.0) Mean Corpuscular Volume 87 FL (80-99) 87 FL (80-99) Mean Corpuscular Hemoglobin 27.3 PG (27.0-31.0) 26.7 PG (27.0-31.0) Mean Corpuscular Hemoglobin Concent 31.3 G/DL (32.0-36.0) 30.6 G/DL (32.0-36.0) Red Cell Distribution Width 15.9 % (11.6-14.8) 16.3 % (11.6-14.8) Platelet Count 314 K/UL (150-450) 286 K/UL (150-450) Mean Platelet Volume 6.2 FL (6.5-10.1) 5.9 FL (6.5-10.1) Neutrophils (%) (Auto) % (45.0-75.0) % (45.0-75.0) Lymphocytes (%) (Auto) % (20.0-45.0) % (20.0-45.0) Monocytes (%) (Auto) % (1.0-10.0) % (1.0-10.0) Eosinophils (%) (Auto) % (0.0-3.0) % (0.0-3.0) Basophils (%) (Auto) % (0.0-2.0) % (0.0-2.0) Differential Total Cells Counted 100 100 Neutrophils % (Manual) 85 % (45-75) 82 % (45-75) Lymphocytes % (Manual) 2 % (20-45) 8 % (20-45) Monocytes % (Manual) 10 % (1-10) 9 % (1-10) Eosinophils % (Manual) 0 % (0-3) 1 % (0-3) Basophils % (Manual) 1 % (0-2) 0 % (0-2) Band Neutrophils 2 % (0-8) 0 % (0-8) Platelet Estimate Adequate Adequate Platelet Morphology Normal Normal Hypochromasia 1+ Anisocytosis 1+ 1+ Erythrocyte Sedimentation Rate 62 MM/HR (0-20) Prothrombin Time 12.9 SEC (9.30-11.50) Prothromb Time International Ratio 1.2 (0.9-1.1) Activated Partial Thromboplast Time 29 SEC (23-33) Sodium Level 152 MMOL/L (136-145) Potassium Level 3.9 MMOL/L (3.5-5.1) Chloride Level 113 MMOL/L (98-107) Carbon Dioxide Level 36 MMOL/L (21-32) Anion Gap 3 mmol/L (5-15) Blood Urea Nitrogen 22 mg/dL (7-18) Creatinine 1.1 MG/DL (0.55-1.30) Estimat Glomerular Filtration Rate mL/min (>60) Glucose Level 130 MG/DL (74-106) Calcium Level 8.2 MG/DL (8.5-10.1) Total Bilirubin 0.3 MG/DL (0.2-1.0) Aspartate Amino Transf (AST/SGOT) 25 U/L (15-37) Alanine Aminotransferase (ALT/SGPT) 22 U/L (12-78) Alkaline Phosphatase 102 U/L (46-116) C-Reactive Protein, Quantitative > 70.0 mg/dL (0.00-0.90) Total Protein 6.9 G/DL (6.4-8.2) Albumin 1.5 G/DL (3.4-5.0) Globulin 5.4 g/dL Albumin/Globulin Ratio 0.3 (1.0-2.7) Lipase 105 U/L (73-393) Urine Color Red Urine Appearance Turbid Urine pH 7 (4.5-8.0) Urine Specific [place] 1.005 (1.005-1.035) Urine Protein 4+ (NEGATIVE) Urine Glucose (UA) Negative (NEGATIVE) Urine Ketones 1+ (NEGATIVE) Urine Blood 5+ (NEGATIVE) Urine Nitrite Negative (NEGATIVE) Urine Bilirubin Negative (NEGATIVE) Urine Urobilinogen Normal MG/DL (0.0-1.0) Urine Leukocyte Esterase 3+ (NEGATIVE) Urine RBC Tntc /HPF (0 - 0) Urine WBC 15-20 /HPF (0 - 0) Urine Squamous Epithelial Cells Occasional /LPF Urine Bacteria Few /HPF (NONE) Height (Feet): 5 Height (Inches): 5.00 Weight (Pounds): 203 Objective Vitals: reviewed Gen: no apparent distress Head: normocephalic EENT: normal ENT inspection Respiratory: other - intubated vent+ Cardiovascular: normal rate Gastrointestinal: gt - c/d/i Rectal: deferred Genitourinary: no CVA tenderness Skin: normal color +++ decub : ++ Beny Fields MD Dec 10, 2018 15:39
[2018-12-10 16:00] VITALS: BP 148/67
[2018-12-10 16:56] LABS: HEMATOCRIT 27.1 % (42.0-52.0); HEMOGLOBIN 8.9 G/DL (14.2-18.0); MEAN CORPUSCULAR VOLUME 84 FL (80-99); PLATELET COUNT 219 K/UL (150-450); RED BLOOD COUNT 3.21 M/UL (4.70-6.10); RED CELL DISTRIBUTION WIDTH 14.8 % (11.6-14.8); WHITE BLOOD COUNT 19.3 K/UL (4.8-10.8)
[2018-12-10 17:00] LABS: INR 1.2 (0.9-1.1)
[2018-12-10 17:02] LABS: ANION GAP 4 mmol/L (5-15); BLOOD UREA NITROGEN 20 mg/dL (7-18); CALCIUM 7.5 MG/DL (8.5-10.1); CARBON DIOXIDE 33 MMOL/L (21-32); CHLORIDE 112 MMOL/L (98-107); CREATININE 0.9 MG/DL (0.55-1.30); POTASSIUM 4.3 MMOL/L (3.5-5.1); SODIUM 149 MMOL/L (136-145)
[2018-12-10 20:00] VITALS: BP 145/68
--- NOTE | 2018-12-10 21:34 | General Progress Note ---
Assessment/Plan Problem List: (1) Hypernatremia ICD Codes: E87.0 - Hyperosmolality and hypernatremia SNOMED: 69054812 (2) Rhabdomyolysis ICD Codes: M62.82 - Rhabdomyolysis SNOMED: 037725173 (3) Sacral decubitus ulcer ICD Codes: L89.159 - Pressure ulcer of sacral region, unspecified stage SNOMED: 602855326 (4) Severe sepsis ICD Codes: A41.9 - Sepsis, unspecified organism; R65.20 - Severe sepsis without septic shock SNOMED: 51636867 (5) Septic shock ICD Codes: A41.9 - Sepsis, unspecified organism; R65.21 - Severe sepsis with septic shock SNOMED: 03428070 (6) DM (7) Anemia ICD Codes: D64.9 - Anemia, unspecified SNOMED: 040850111 (8) Prostate enlargement ICD Codes: N40.0 - Benign prostatic hyperplasia without lower urinary tract symptoms SNOMED: 366373246 (9) Chronic renal disease ICD Codes: N18.9 - Chronic kidney disease, unspecified SNOMED: 653558546 (10) Ventilator dependence ICD Codes: Z99.11 - Dependence on respirator [ventilator] status SNOMED: 658354504 (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 - Gastrostomy status SNOMED: 465492348, 759641505 (12) Malnutrition ICD Codes: E46 - Unspecified protein-calorie malnutrition SNOMED: 29928035 Status: stable, progressing, unchanged Assessment/Plan: hematurea.contacted dr ramos again re hematurea bph no bleeding afebrile s/p transfusion on isolation for polymicrobial pna leukocytosis is improving hypernatremia is improving Subjective ROS Limited/Unobtainable: Yes Allergies: Coded Allergies: TERAZOSIN (Verified Allergy, Unknown, 10/27/17) Objective Last 24 Hour Vital Signs Date Time Temp Pulse Resp B/P (MAP) Pulse Ox O2 Delivery O2 Flow Rate FiO2 12/10/18 17:04 88 25 40 12/10/18 16:00 82 12/10/18 16:00 Mechanical Ventilator 12/10/18 16:00 99.5 86 27 148/67 (94) 96 12/10/18 16:00 40 12/10/18 15:27 99 24 40 12/10/18 13:04 95 20 40 12/10/18 12:00 Mechanical Ventilator 12/10/18 12:00 99.0 84 22 131/70 (90) 99 12/10/18 12:00 40 12/10/18 12:00 79 12/10/18 11:05 92 18 40 12/10/18 09:23 82 22 40 12/10/18 08:00 Mechanical Ventilator 12/10/18 08:00 79 12/10/18 08:00 99.0 88 28 137/63 (87) 96 12/10/18 08:00 40 12/10/18 07:15 94 32 40 12/10/18 05:06 79 23 40 12/10/18 04:00 97.8 78 24 146/76 (99) 96 12/10/18 04:00 40 12/10/18 04:00 Mechanical Ventilator 12/10/18 03:42 77 12/10/18 03:28 81 28 40 12/10/18 02:45 80 24 96 Mechanical Ventilator 40 12/10/18 01:14 78 28 40 12/10/18 00:00 Mechanical Ventilator 12/10/18 00:00 40 12/10/18 00:00 98.4 84 28 107/74 (85) 95 12/09/18 23:28 82 12/09/18 23:19 83 26 40 Intake and Output 12/09/18 12/10/18 19:00 07:00 Intake Total 1645.0 ml 2221.25 ml Output Total 100 ml 100 ml Balance 1545.0 ml 2121.25 ml Intake Free Water 200 ml 150 ml IV Total 785.0 ml 1351.25 ml Tube Feeding 660 ml 660 ml Other 60 ml Output Urine Total 100 ml 100 ml # Voids 2 # Bowel Movements 1 1 Laboratory Tests 12/10/18 16:10: Prothrombin Time 12.3H, Prothromb Time International Ratio 1.2H, Sodium Level 149H, Potassium Level 4.3, Chloride Level 112H, Carbon Dioxide Level 33H, Anion Gap 4L, Blood Urea Nitrogen 20H, Creatinine 0.9, Estimat Glomerular Filtration Rate , Glucose Level 116H, Calcium Level 7.5L 12/10/18 16:20: White Blood Count 19.3H, Red Blood Count 3.21L, Hemoglobin 8.9L, Hematocrit 27.1L, Mean Corpuscular Volume 84, Mean Corpuscular Hemoglobin 27.6, Mean Corpuscular Hemoglobin Concent 32.8, Red Cell Distribution Width 14.8, Platelet Count 219, Mean Platelet Volume 6.4L, Neutrophils (%) (Auto) , Lymphocytes (%) ( Auto) , Monocytes (%) (Auto) , Eosinophils (%) (Auto) , Basophils (%) (Auto) , Differential Total Cells Counted 100, Neutrophils % (Manual) 81H, Lymphocytes % (Manual) 13L, Monocytes % (Manual) 4, Eosinophils % (Manual) 2, Basophils % ( Manual) 0, Band Neutrophils 0, Platelet Estimate Adequate, Platelet Morphology Normal, Hypochromasia 1+, Anisocytosis 1+ Height (Feet): 5 Height (Inches): 5.00 Weight (Pounds): 203 Trish Matias MD Dec 10, 2018 21:34
--- NOTE | 2018-12-10 22:28 | Pulmonology Progress Note ---
Assessment/Plan Assessment/Plan Pulmonary Progress Note Assessment/Plan Impression: Patient with Pneumonia - KPC/Acinetobacter/MDR pseudomonas, Proteus Ventilator dependant respiratory failure, stable Pulmonary Status Severe sepsis previously - WCC significantly elevated today NSTEMI Anemia sp TFN Dysphagia s/p G tube Chronic wounds Dementia Organic Brain Syndrome Diabetes Chronic renal disease BPH Penile wound Hematuria - Urology following CHF H/o Hypertension Severe Protein Calorie Malnutrition Plan antibiotic regimen per ID Repeat CXR pending monitor blood pressure HHN Q4 and monitor secretions and suction PRN on full vent support-AC- no wean transfuse PRN DNAR multiorgan disease with poor prognosis monitor oxygen needs- and adjust monitor labs DVT and PUD prophylaxis Gtube feeds as able; monitor residuals and reflux aspiration monitor residuals for change will need [facility] care medications/laboratory data/nursing notes reviewed in detail note reviewed and edited care discussed with RN and RT Interval Events: care noted vitals stable poor LOC f ROS Limited/Unobtainable: Yes Condition: critical EKG Rhythm: Sinus Rhythm Residuals: minimal Tube Feeding Tolerated: yes Vital Signs Noted Labs Noted CXR: Impression: Unchanged Objective: WDWN NAD on vent and poorly responsive reduced breath sounds bilaterally with noted rhonchi [id number] without MRG NABS nontender no HSM; GT; non distended no CC mild edema nonfocal reduced LOC skin noted reviewed and edited Sputum: Organism 1 K.PNEUMONIAE CARBAPENEM RESIST GROWTH: 4+ only sens Colistin Organism 2 A.BAUMANII COMPLX - MDR GROWTH: 4+ Organism 3 PSEUDOMONAS AERUGINOSA GROWTH: 4+ Organism 4 PROTEUS MIRABILIS GROWTH: 4+ Subjective ROS Limited/Unobtainable: No Allergies: Coded Allergies: TERAZOSIN (Verified Allergy, Unknown, 10/27/17) Objective Last 24 Hour Vital Signs Date Time Temp Pulse Resp B/P (MAP) Pulse Ox O2 Delivery O2 Flow Rate FiO2 12/10/18 22:15 78 22 40 12/10/18 19:00 79 25 40 12/10/18 17:04 88 25 40 12/10/18 16:00 82 12/10/18 16:00 Mechanical Ventilator 12/10/18 16:00 99.5 86 27 148/67 (94) 96 12/10/18 16:00 40 12/10/18 15:27 99 24 40 12/10/18 13:04 95 20 40 12/10/18 12:00 Mechanical Ventilator 12/10/18 12:00 99.0 84 22 131/70 (90) 99 12/10/18 12:00 40 12/10/18 12:00 79 12/10/18 11:05 92 18 40 12/10/18 09:23 82 22 40 12/10/18 08:00 Mechanical Ventilator 12/10/18 08:00 79 12/10/18 08:00 99.0 88 28 137/63 (87) 96 12/10/18 08:00 40 12/10/18 07:15 94 32 40 12/10/18 05:06 79 23 40 12/10/18 04:00 97.8 78 24 146/76 (99) 96 12/10/18 04:00 40 12/10/18 04:00 Mechanical Ventilator 12/10/18 03:42 77 12/10/18 03:28 81 28 40 12/10/18 02:45 80 24 96 Mechanical Ventilator 40 12/10/18 01:14 78 28 40 12/10/18 00:00 Mechanical Ventilator 12/10/18 00:00 40 12/10/18 00:00 98.4 84 28 107/74 (85) 95 12/09/18 23:28 82 12/09/18 23:19 83 26 40 Intake and Output 12/09/18 12/10/18 18:59 06:59 Intake Total 1545.0 ml 2193.75 ml Output Total 100 ml 100 ml Balance 1445.0 ml 2093.75 ml Intake Free Water 200 ml 150 ml IV Total 685.0 ml 1323.75 ml Tube Feeding 660 ml 660 ml Other 60 ml Output Urine Total 100 ml 100 ml # Voids 1 # Bowel Movements 1 1 Microbiology Date/Time Source Procedure Growth Status 12/09/18 13:00 Indwelling Cath Urine Culture - Preliminary Resulted Laboratory Tests 12/10/18 16:10: Prothrombin Time 12.3H, Prothromb Time International Ratio 1.2H, Sodium Level 149H, Potassium Level 4.3, Chloride Level 112H, Carbon Dioxide Level 33H, Anion Gap 4L, Blood Urea Nitrogen 20H, Creatinine 0.9, Estimat Glomerular Filtration Rate , Glucose Level 116H, Calcium Level 7.5L 12/10/18 16:20: White Blood Count 19.3H, Red Blood Count 3.21L, Hemoglobin 8.9L, Hematocrit 27.1L, Mean Corpuscular Volume 84, Mean Corpuscular Hemoglobin 27.6, Mean Corpuscular Hemoglobin Concent 32.8, Red Cell Distribution Width 14.8, Platelet Count 219, Mean Platelet Volume 6.4L, Neutrophils (%) (Auto) , Lymphocytes (%) ( Auto) , Monocytes (%) (Auto) , Eosinophils (%) (Auto) , Basophils (%) (Auto) , Differential Total Cells Counted 100, Neutrophils % (Manual) 81H, Lymphocytes % (Manual) 13L, Monocytes % (Manual) 4, Eosinophils % (Manual) 2, Basophils % ( Manual) 0, Band Neutrophils 0, Platelet Estimate Adequate, Platelet Morphology Normal, Hypochromasia 1+, Anisocytosis 1+ Current Medications Medications (Trade) Dose Ordered Sig/Ruthie Route PRN Reason Start Time Stop Time Status Last Admin Dose Admin Acetaminophen (Tylenol) 650 mg Q6H PRN GT Mild Pain/Temp > 100.5 11/28/18 06:05 12/15/18 06:04 12/08/18 20:23 Atropine Sulfate (Atropine 0.4mg/ ml) 0.4 mg Q5M PRN IVP HR<30 for 30 seconds 11/28/18 06:09 12/28/18 06:08 Bacitracin (Bacitracin 15gm tube) 1 applic EVERY 12 HOURS TOPIC 12/09/18 21:00 12/31/18 17:59 12/10/18 20:56 Bisacodyl (Dulcolax) 10 mg DAILYPRN PRN RECTAL Constipation 11/28/18 06:05 12/18/18 06:04 Dextrose (Dextrose 50%) 25 ml Q30M PRN IV Hypoglycemia 11/28/18 06:15 12/15/18 09:38 Dextrose (Dextrose 50%) 50 ml Q30M PRN IV Hypoglycemia 11/28/18 06:15 12/15/18 05:44 Insulin Aspart (NovoLOG) EVERY 6 HOURS SUBQ 12/08/18 12:00 12/15/18 06:29 12/10/18 18:24 Lansoprazole (Prevacid) 30 mg EVERY 12 HOURS GT 12/09/18 21:00 12/28/18 17:59 12/10/18 20:56 Lorazepam (Ativan 2mg/ml 1ml) 0.5 mg Q2H PRN IV For Anxiety 12/05/18 14:56 12/12/18 14:55 12/07/18 17:19 Metronidazole (Flagyl) 500 mg Q8HR GT 12/09/18 14:00 12/16/18 13:59 12/10/18 21:01 Olanzapine (ZyPREXA Zydis) 7.5 mg DAILY GT 11/28/18 09:00 12/15/18 08:59 12/10/18 08:33 Piperacillin Sod/ Tazobactam Sod 3.375 gm/Sodium Chloride 110 ml @ 27.5 mls/hr EVERY 8 HOURS IVPB 12/09/18 14:00 12/14/18 13:59 12/10/18 21:01 Vancomycin HCl (Vanco rx to dose) 1 ea DAILY PRN MISC Per rx protocol 12/09/18 11:00 01/08/19 10:59 Vancomycin/Sodium Chloride 275 ml @ 137.5 mls/ hr Q24H IVPB 12/09/18 13:00 12/14/18 12:59 12/10/18 12:49 Booker Baumann MD Dec 10, 2018 22:28
[2018-12-10] MEDS: Acetaminophen 650mg/20.3ml GT PRN (23:44)
[2018-12-11] VITALS: BP 144/67
[2018-12-11 04:00] VITALS: BP 110/64
[2018-12-11 05:55] LABS: ALANINE AMINOTRANSFERASE 17 U/L (12-78); ALBUMIN 1.2 G/DL (3.4-5.0); ALBUMIN/GLOBULIN RATIO 0.2 (1.0-2.7); ALKALINE PHOSPHATASE 102 U/L (46-116); ANION GAP 7 mmol/L (5-15); ASPARTATE AMINO TRANSFERASE 27 U/L (15-37); BILIRUBIN,TOTAL 0.3 MG/DL (0.2-1.0); BLOOD UREA NITROGEN 21 mg/dL (7-18); CALCIUM 7.9 MG/DL (8.5-10.1); CARBON DIOXIDE 30 MMOL/L (21-32); CHLORIDE 111 MMOL/L (98-107); CREATININE 1.1 MG/DL (0.55-1.30); PHOSPHORUS 3.1 MG/DL (2.5-4.9); POTASSIUM 3.9 MMOL/L (3.5-5.1); SODIUM 148 MMOL/L (136-145)
--- NOTE | 2018-12-11 06:00 | Hematology/Onc Progress Note ---
Assessment/Plan Assessment/Plan ASSESSMENT AND RECOMMENDATIONS # Leukocytosis. Likely related to underlying infection with sepsis and elevated severely on admission --> Imaging has been reviewed. Shows cxr left lung inil/v edema --> Blood cs and urine cx are have been reviewed --> Has been started on abx, empiric tx (zosyn)--> colistin/cipro/ceftaz--> ceftazadime-> VANC/ZOSYN/flagyl --> PERIPHERAL SMEAR SHOWS ATYPICAL LYMPHOCYTES--> has stabilized, improved --> Flow cytometry ordered with pathologist -> no atypical findings are noted --> wbc 52k-->47k-->29k->16-->12-->14->12-->12-->21-->14->11->15->9-->11.4->24k- >28k-->16k-->13-->17k-->16k-->30-->19 --> picc was repositioned --> is off of any steriods, daily md review --> for urology evaluation with hematuria, improved --> c.diff pppears negative for now # Anemia of chronic disease, due to underlying chronic medical issues, multifactorial. --> Anemia w/u has been ordered --> with hyperferritinemia --> No evidence of hemolysis noted, peripheral smear has been reviewed --> Hgb goal >7. Transfuse as needed --> hgb trend 7.5-->6.6->9.1-->9.2-->8.9-->9.9->8.3-->8.5-->9.3-->8.2->8.4-->7.1 -->10.6-->9.8-->8.9 --> 2 units transfuse on 11/15, 2 more 12/04 --> will need to follow as outpatient and may need chelation therapy --> GI workup with egd showed gastritis --> hematuria eval as per UROL # Failure to thrive (FTT) - decreased bmi and low protein --> cea 4.3 --> will obtain q3 day caloric counts --> mirtazapine as appetite stimulant --> GI consult on a prn basis, as needed for endosc # Asystole with pauses may need pm per family --> as per cards recs --> refusing pm # Sepsis, which has improved --> abx as per id # Dysphagia s/p PEG # Malnutrition. 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 Greatly appreciate consultation. Subjective Allergies: Coded Allergies: TERAZOSIN (Verified Allergy, Unknown, 10/27/17) Subjective 11/16: in the icu, is off pressors, doing better, no bleeding 11/18: no bleeding, remains on doxy and zosyn, no bleeding reported 11/19: out of the icu, on vent/trach, no major changes, jimenez rn 11/20: no bleeding noted, no night sweats, meds reviewed, no f/c 11/21: on vent, obtunded, with gt ongong, with picc, no bleeding .: stricture advanced through with uro, with crabtree, labs noted 11/23: no events to report, no bleeding, labs reviewed, in icu 11/24: remains in the icu, with asystole, pending discussion with marlyn moreno pM 11/25: continues to have pauses, no bleeding, seen by cards, no events 11/26: no ets, no bleeding noted, no night sweats, no f/c 11/27: hgb 8.2, no bleeding or chills, no major changes on trach/vent, jimenez RN 11/28: agitated today, on vent/trach, jimenez dior, potential dc to tirso turner 11/29: obtunded, is out of the unit, labs noted, wbc 24k 11/30: gt feeds on hold, no bleeding reported, no night sweats 12/01: is on abx, no bleeding, no f/c, no night sweats noted 12/04: no events to report, hgb 7.1, nor chills noted, to get 2 unit prbc 12/05: for blood transfusion which was completed, but wbc higher, with hematruia , is dnr 12/06: no events, no bleeding, hematuria is improved, labs pending, on vent/ trach 12/07: no bleeding, no chills, labs noted, hgb higher 12/09: on vent and gtube feeds, no night sweats, no major changes 12/10: seen by id, is on vanc/zosyn, flagyl, still with hematuria, labs noted 12/11: pulse in the 80-90s, no events, hematuria is mildly better Objective Objective Current Medications Medications (Trade) Dose Ordered Sig/Ruthie Route PRN Reason Start Time Stop Time Status Last Admin Dose Admin Acetaminophen (Tylenol) 650 mg Q6H PRN GT Mild Pain/Temp > 100.5 11/28/18 06:05 12/15/18 06:04 12/10/18 23:44 Atropine Sulfate (Atropine 0.4mg/ ml) 0.4 mg Q5M PRN IVP HR<30 for 30 seconds 11/28/18 06:09 12/28/18 06:08 Bacitracin (Bacitracin 15gm tube) 1 applic EVERY 12 HOURS TOPIC 12/09/18 21:00 12/31/18 17:59 12/10/18 20:56 Bisacodyl (Dulcolax) 10 mg DAILYPRN PRN RECTAL Constipation 11/28/18 06:05 12/18/18 06:04 Dextrose (Dextrose 50%) 25 ml Q30M PRN IV Hypoglycemia 11/28/18 06:15 12/15/18 09:38 Dextrose (Dextrose 50%) 50 ml Q30M PRN IV Hypoglycemia 11/28/18 06:15 12/15/18 05:44 Insulin Aspart (NovoLOG) EVERY 6 HOURS SUBQ 12/08/18 12:00 12/15/18 06:29 12/10/18 23:53 Lansoprazole (Prevacid) 30 mg EVERY 12 HOURS GT 12/09/18 21:00 12/28/18 17:59 12/10/18 20:56 Lorazepam (Ativan 2mg/ml 1ml) 0.5 mg Q2H PRN IV For Anxiety 12/05/18 14:56 12/12/18 14:55 12/07/18 17:19 Metronidazole (Flagyl) 500 mg Q8HR GT 12/09/18 14:00 12/16/18 13:59 12/10/18 21:01 Olanzapine (ZyPREXA Zydis) 7.5 mg DAILY GT 11/28/18 09:00 12/15/18 08:59 12/10/18 08:33 Piperacillin Sod/ Tazobactam Sod 3.375 gm/Sodium Chloride 110 ml @ 27.5 mls/hr EVERY 8 HOURS IVPB 12/09/18 14:00 12/14/18 13:59 12/10/18 21:01 Vancomycin HCl (Vanco rx to dose) 1 ea DAILY PRN MISC Per rx protocol 12/09/18 11:00 01/08/19 10:59 Vancomycin/Sodium Chloride 275 ml @ 137.5 mls/ hr Q24H IVPB 12/09/18 13:00 12/14/18 12:59 12/10/18 12:49 Last 24 Hour Vital Signs Date Time Temp Pulse Resp B/P (MAP) Pulse Ox O2 Delivery O2 Flow Rate FiO2 12/11/18 04:50 89 20 40 12/11/18 04:00 99.3 88 24 110/64 (79) 100 12/11/18 04:00 Mechanical Ventilator 12/11/18 04:00 40 12/11/18 03:35 91 12/11/18 03:10 82 28 40 12/11/18 01:21 97 30 40 12/11/18 00:14 98.5 12/11/18 00:00 Mechanical Ventilator 12/11/18 00:00 100.7 90 26 144/67 (92) 98 12/10/18 23:43 90 32 40 12/10/18 23:29 77 12/10/18 22:15 78 22 40 12/10/18 20:00 99.4 88 25 145/68 (93) 98 12/10/18 20:00 40 12/10/18 20:00 Mechanical Ventilator 12/10/18 19:11 82 12/10/18 19:00 79 25 40 12/10/18 17:04 88 25 40 12/10/18 16:00 82 12/10/18 16:00 Mechanical Ventilator 12/10/18 16:00 99.5 86 27 148/67 (94) 96 12/10/18 16:00 40 12/10/18 15:27 99 24 40 12/10/18 13:04 95 20 40 12/10/18 12:00 Mechanical Ventilator 12/10/18 12:00 99.0 84 22 131/70 (90) 99 12/10/18 12:00 40 12/10/18 12:00 79 12/10/18 11:05 92 18 40 12/10/18 09:23 82 22 40 12/10/18 08:00 Mechanical Ventilator 12/10/18 08:00 79 12/10/18 08:00 99.0 88 28 137/63 (87) 96 12/10/18 08:00 40 12/10/18 07:15 94 32 40 12/10/18 05:06 79 23 40 12/10/18 04:00 97.8 78 24 146/76 (99) 96 12/10/18 04:00 40 12/10/18 04:00 Mechanical Ventilator 12/10/18 03:42 77 12/10/18 03:28 81 28 40 12/10/18 02:45 80 24 96 Mechanical Ventilator 40 12/10/18 01:14 78 28 40 12/10/18 00:00 Mechanical Ventilator 12/10/18 00:00 40 12/10/18 00:00 98.4 84 28 107/74 (85) 95 12/09/18 23:28 82 12/09/18 23:19 83 26 40 12/09/18 21:15 90 23 40 12/09/18 20:00 88 12/09/18 20:00 Mechanical Ventilator 12/09/18 20:00 98.2 87 24 108/53 (71) 98 12/09/18 20:00 40 12/09/18 19:44 89 31 40 12/09/18 17:19 93 32 40 12/09/18 16:00 40 12/09/18 16:00 Mechanical Ventilator 12/09/18 16:00 100.2 92 22 110/72 (85) 98 12/09/18 16:00 89 12/09/18 15:14 87 32 40 12/09/18 12:50 95 24 40 12/09/18 12:00 Mechanical Ventilator 12/09/18 12:00 98.1 85 28 147/95 (112) 96 12/09/18 12:00 85 12/09/18 12:00 40 12/09/18 10:45 87 24 40 12/09/18 08:37 98 22 40 12/09/18 08:00 40 12/09/18 08:00 Mechanical Ventilator 12/09/18 08:00 99.3 95 24 135/88 (104) 95 12/09/18 07:48 95 12/09/18 06:40 101 25 40 Intake and Output 12/10/18 12/11/18 19:00 07:00 Intake Total 1512.5 ml 790.0 ml Output Total 125 ml 125 ml Balance 1387.5 ml 665.0 ml Intake Free Water 150 ml 100 ml IV Total 667.5 ml 110.0 ml Tube Feeding 605 ml 550 ml Other 90 ml 30 ml Output Urine Total 125 ml 125 ml # Bowel Movements 2 Labs Test 12/09/18 06:50 12/09/18 13:00 12/10/18 16:10 12/10/18 16:20 White Blood Count 30.2 K/UL (4.8-10.8) 19.3 K/UL (4.8-10.8) Red Blood Count 3.54 M/UL (4.70-6.10) 3.21 M/UL (4.70-6.10) Hemoglobin 9.4 G/DL (14.2-18.0) 8.9 G/DL (14.2-18.0) Hematocrit 30.9 % (42.0-52.0) 27.1 % (42.0-52.0) Mean Corpuscular Volume 87 FL (80-99) 84 FL (80-99) Mean Corpuscular Hemoglobin 26.7 PG (27.0-31.0) 27.6 PG (27.0-31.0) Mean Corpuscular Hemoglobin Concent 30.6 G/DL (32.0-36.0) 32.8 G/DL (32.0-36.0) Red Cell Distribution Width 16.3 % (11.6-14.8) 14.8 % (11.6-14.8) Platelet Count 286 K/UL (150-450) 219 K/UL (150-450) Mean Platelet Volume 5.9 FL (6.5-10.1) 6.4 FL (6.5-10.1) Neutrophils (%) (Auto) % (45.0-75.0) % (45.0-75.0) Lymphocytes (%) (Auto) % (20.0-45.0) % (20.0-45.0) Monocytes (%) (Auto) % (1.0-10.0) % (1.0-10.0) Eosinophils (%) (Auto) % (0.0-3.0) % (0.0-3.0) Basophils (%) (Auto) % (0.0-2.0) % (0.0-2.0) Differential Total Cells Counted 100 100 Neutrophils % (Manual) 82 % (45-75) 81 % (45-75) Lymphocytes % (Manual) 8 % (20-45) 13 % (20-45) Monocytes % (Manual) 9 % (1-10) 4 % (1-10) Eosinophils % (Manual) 1 % (0-3) 2 % (0-3) Basophils % (Manual) 0 % (0-2) 0 % (0-2) Band Neutrophils 0 % (0-8) 0 % (0-8) Platelet Estimate Adequate Adequate Platelet Morphology Normal Normal Anisocytosis 1+ 1+ Erythrocyte Sedimentation Rate 62 MM/HR (0-20) Prothrombin Time 12.9 SEC (9.30-11.50) 12.3 SEC (9.30-11.50) Prothromb Time International Ratio 1.2 (0.9-1.1) 1.2 (0.9-1.1) Activated Partial Thromboplast Time 29 SEC (23-33) Sodium Level 152 MMOL/L (136-145) 149 MMOL/L (136-145) Potassium Level 3.9 MMOL/L (3.5-5.1) 4.3 MMOL/L (3.5-5.1) Chloride Level 113 MMOL/L (98-107) 112 MMOL/L (98-107) Carbon Dioxide Level 36 MMOL/L (21-32) 33 MMOL/L (21-32) Anion Gap 3 mmol/L (5-15) 4 mmol/L (5-15) Blood Urea Nitrogen 22 mg/dL (7-18) 20 mg/dL (7-18) Creatinine 1.1 MG/DL (0.55-1.30) 0.9 MG/DL (0.55-1.30) Estimat Glomerular Filtration Rate mL/min (>60) mL/min (>60) Glucose Level 130 MG/DL (74-106) 116 MG/DL (74-106) Calcium Level 8.2 MG/DL (8.5-10.1) 7.5 MG/DL (8.5-10.1) Total Bilirubin 0.3 MG/DL (0.2-1.0) Aspartate Amino Transf (AST/SGOT) 25 U/L (15-37) Alanine Aminotransferase (ALT/SGPT) 22 U/L (12-78) Alkaline Phosphatase 102 U/L (46-116) C-Reactive Protein, Quantitative > 70.0 mg/dL (0.00-0.90) Total Protein 6.9 G/DL (6.4-8.2) Albumin 1.5 G/DL (3.4-5.0) Globulin 5.4 g/dL Albumin/Globulin Ratio 0.3 (1.0-2.7) Lipase 105 U/L (73-393) Urine Color Red Urine Appearance Turbid Urine pH 7 (4.5-8.0) Urine Specific Tell 1.005 (1.005-1.035) Urine Protein 4+ (NEGATIVE) Urine Glucose (UA) Negative (NEGATIVE) Urine Ketones 1+ (NEGATIVE) Urine Blood 5+ (NEGATIVE) Urine Nitrite Negative (NEGATIVE) Urine Bilirubin Negative (NEGATIVE) Urine Urobilinogen Normal MG/DL (0.0-1.0) Urine Leukocyte Esterase 3+ (NEGATIVE) Urine RBC Tntc /HPF (0 - 0) Urine WBC 15-20 /HPF (0 - 0) Urine Squamous Epithelial Cells Occasional /LPF Urine Bacteria Few /HPF (NONE) Hypochromasia 1+ Test 12/11/18 03:50 Sodium Level 148 MMOL/L (136-145) Potassium Level 3.9 MMOL/L (3.5-5.1) Chloride Level 111 MMOL/L (98-107) Carbon Dioxide Level 30 MMOL/L (21-32) Anion Gap 7 mmol/L (5-15) Blood Urea Nitrogen 21 mg/dL (7-18) Creatinine 1.1 MG/DL (0.55-1.30) Estimat Glomerular Filtration Rate mL/min (>60) Glucose Level 97 MG/DL (74-106) Calcium Level 7.9 MG/DL (8.5-10.1) Phosphorus Level 3.1 MG/DL (2.5-4.9) Magnesium Level 1.8 MG/DL (1.8-2.4) Total Bilirubin 0.3 MG/DL (0.2-1.0) Aspartate Amino Transf (AST/SGOT) 27 U/L (15-37) Alanine Aminotransferase (ALT/SGPT) 17 U/L (12-78) Alkaline Phosphatase 102 U/L (46-116) Total Protein 6.3 G/DL (6.4-8.2) Albumin 1.2 G/DL (3.4-5.0) Globulin 5.1 g/dL Albumin/Globulin Ratio 0.2 (1.0-2.7) Height (Feet): 5 Height (Inches): 5.00 Weight (Pounds): 203 Objective Vitals: reviewed Gen: no apparent distress Head: normocephalic EENT: normal ENT inspection Respiratory: other - intubated vent+ Cardiovascular: normal rate Gastrointestinal: gt - c/d/i Rectal: deferred Genitourinary: no CVA tenderness Skin: normal color +++ decub : ++ Beny Fields MD Dec 11, 2018 06:00
[2018-12-11] MEDS: Piperacillin/Tazobactam 3.375 GM in NS 110 ML IVPB SCH ×3 (06:01→21:09)
[2018-12-11] MEDS: metroNIDAZOLE 500mg tab GT SCH ×3 (06:01→21:09)
[2018-12-11] MEDS: NovoLOG Insulin Flexpen SUBQ SCH ×4 (06:01→23:45)
--- NOTE | 2018-12-11 07:47 | General Progress Note ---
Assessment/Plan Problem List: (1) GIB (gastrointestinal bleeding) ICD Codes: K92.2 - Gastrointestinal hemorrhage, unspecified SNOMED: 67794970 (2) PEG (percutaneous endoscopic gastrostomy) status ICD Codes: Z93.1 - Gastrostomy status SNOMED: 686692504, 553223012 (3) Chronic renal disease ICD Codes: N18.9 - Chronic kidney disease, unspecified SNOMED: 426522930 (4) Prostate enlargement ICD Codes: N40.0 - Benign prostatic hyperplasia without lower urinary tract symptoms SNOMED: 630706824 (5) Anemia ICD Codes: D64.9 - Anemia, unspecified SNOMED: 538214857 (6) Septic shock ICD Codes: A41.9 - Sepsis, unspecified organism; R65.21 - Severe sepsis with septic shock SNOMED: 61771596 (7) Gastrostomy tube dependent ICD Codes: Z93.1 - Gastrostomy status SNOMED: 035985898, 004936584 Status: stable, progressing, unchanged Assessment/Plan: ppi prn blood transfusion abx per ID GTF EGD on hold given stable H&H and patient's poor medical condition hematuria>> fu urology recs Subjective ROS Limited/Unobtainable: No Allergies: Coded Allergies: TERAZOSIN (Verified Allergy, Unknown, 10/27/17) Objective Last 24 Hour Vital Signs Date Time Temp Pulse Resp B/P (MAP) Pulse Ox O2 Delivery O2 Flow Rate FiO2 12/11/18 07:19 82 22 40 12/11/18 04:50 89 20 40 12/11/18 04:00 99.3 88 24 110/64 (79) 100 12/11/18 04:00 Mechanical Ventilator 12/11/18 04:00 40 12/11/18 03:35 91 12/11/18 03:10 82 28 40 12/11/18 01:21 97 30 40 12/11/18 00:14 98.5 12/11/18 00:00 Mechanical Ventilator 12/11/18 00:00 100.7 90 26 144/67 (92) 98 12/10/18 23:43 90 32 40 12/10/18 23:29 77 12/10/18 22:15 78 22 40 12/10/18 20:00 99.4 88 25 145/68 (93) 98 12/10/18 20:00 40 12/10/18 20:00 Mechanical Ventilator 12/10/18 19:11 82 12/10/18 19:00 79 25 40 12/10/18 17:04 88 25 40 12/10/18 16:00 82 12/10/18 16:00 Mechanical Ventilator 12/10/18 16:00 99.5 86 27 148/67 (94) 96 12/10/18 16:00 40 12/10/18 15:27 99 24 40 12/10/18 13:04 95 20 40 12/10/18 12:00 Mechanical Ventilator 12/10/18 12:00 99.0 84 22 131/70 (90) 99 12/10/18 12:00 40 12/10/18 12:00 79 12/10/18 11:05 92 18 40 12/10/18 09:23 82 22 40 12/10/18 08:00 Mechanical Ventilator 12/10/18 08:00 79 12/10/18 08:00 99.0 88 28 137/63 (87) 96 12/10/18 08:00 40 Intake and Output 12/10/18 12/11/18 19:00 07:00 Intake Total 1512.5 ml 980.0 ml Output Total 125 ml 400 ml Balance 1387.5 ml 580.0 ml Intake Free Water 150 ml 150 ml IV Total 667.5 ml 110.0 ml Tube Feeding 605 ml 660 ml Other 90 ml 60 ml Output Urine Total 125 ml 400 ml # Voids 1 # Bowel Movements 3 Laboratory Tests 12/10/18 16:10: Prothrombin Time 12.3H, Prothromb Time International Ratio 1.2H, Sodium Level 149H, Potassium Level 4.3, Chloride Level 112H, Carbon Dioxide Level 33H, Anion Gap 4L, Blood Urea Nitrogen 20H, Creatinine 0.9, Estimat Glomerular Filtration Rate , Glucose Level 116H, Calcium Level 7.5L 12/10/18 16:20: White Blood Count 19.3H, Red Blood Count 3.21L, Hemoglobin 8.9L, Hematocrit 27.1L, Mean Corpuscular Volume 84, Mean Corpuscular Hemoglobin 27.6, Mean Corpuscular Hemoglobin Concent 32.8, Red Cell Distribution Width 14.8, Platelet Count 219, Mean Platelet Volume 6.4L, Neutrophils (%) (Auto) , Lymphocytes (%) ( Auto) , Monocytes (%) (Auto) , Eosinophils (%) (Auto) , Basophils (%) (Auto) , Differential Total Cells Counted 100, Neutrophils % (Manual) 81H, Lymphocytes % (Manual) 13L, Monocytes % (Manual) 4, Eosinophils % (Manual) 2, Basophils % ( Manual) 0, Band Neutrophils 0, Platelet Estimate Adequate, Platelet Morphology Normal, Hypochromasia 1+, Anisocytosis 1+ 12/11/18 03:50: Sodium Level 148H, Potassium Level 3.9, Chloride Level 111H, Carbon Dioxide Level 30, Anion Gap 7, Blood Urea Nitrogen 21H, Creatinine 1.1, Estimat Glomerular Filtration Rate , Glucose Level 97, Calcium Level 7.9L, White Blood Count [Pending], Red Blood Count [Pending], Hemoglobin [Pending], Hematocrit [ Pending], Mean Corpuscular Volume [Pending], Mean Corpuscular Hemoglobin [ Pending], Mean Corpuscular Hemoglobin Concent [Pending], Red Cell Distribution Width [Pending], Platelet Count [Pending], Mean Platelet Volume [Pending], Neutrophils (%) (Auto) [Pending], Lymphocytes (%) (Auto) [Pending], Monocytes (% ) (Auto) [Pending], Eosinophils (%) (Auto) [Pending], Basophils (%) (Auto) [ Pending], Phosphorus Level 3.1, Magnesium Level 1.8, Total Bilirubin 0.3, Aspartate Amino Transf (AST/SGOT) 27, Alanine Aminotransferase (ALT/SGPT) 17, Alkaline Phosphatase 102, C-Reactive Protein, Quantitative 43.4H, Pro-B-Type Natriuretic Peptide 3845H, Total Protein 6.3L, Albumin 1.2L, Globulin 5.1, Albumin/Globulin Ratio 0.2L Height (Feet): 5 Height (Inches): 5.00 Weight (Pounds): 203 General Appearance: no apparent distress EENT: normal ENT inspection Neck: supple Cardiovascular: normal rate Respiratory/Chest: decreased breath sounds Abdomen: normal bowel sounds, non tender, soft Extremities: non-tender Juan Coronel MD Dec 11, 2018 07:47
[2018-12-11 08:00] VITALS: BP 156/69
[2018-12-11] MEDS: ZyPREXA Zydis 5mg tab GT SCH (09:39)
[2018-12-11] MEDS: Bacitracin Oint 15gm Tube TOPIC SCH ×2 (09:39→21:00)
[2018-12-11 10:03] LABS: HEMATOCRIT 32.3 % (42.0-52.0); HEMOGLOBIN 10.1 G/DL (14.2-18.0); MEAN CORPUSCULAR VOLUME 87 FL (80-99); PLATELET COUNT 118 K/UL (150-450); RED BLOOD COUNT 3.71 M/UL (4.70-6.10); RED CELL DISTRIBUTION WIDTH 16.7 % (11.6-14.8); WHITE BLOOD COUNT 19.3 K/UL (4.8-10.8)
[2018-12-11 12:00] VITALS: BP 157/94
--- NOTE | 2018-12-11 12:38 | Infectious Diseases Prog Note ---
Assessment/Plan Assessment/Plan IMPRESSION: Sepsis, Pyuria/ UTI treated Pneumonia with MDR pseudomonas, Acinetobacter, Proteus & Klebsiella treated BPH, ventilator-dependent respiratory failure Leukocytosis improving Acute renal failure, improving Diabetes mellitus, anemia, hypoxemic respiratory failure, dementia. 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 Phimosis/ paraphimosis Urethral stricture Asystole, cardiac pause DNR RECOMMENDATION: Continue IV Vancomycin, Zosyn & GT Flagyl Will f/u Urine culture, blood culture Poor prognosis Subjective ROS Limited/Unobtainable: Yes Constitutional: Reports: fever, other - last night tttl=832.7 Allergies: Coded Allergies: TERAZOSIN (Verified Allergy, Unknown, 10/27/17) Objective Vital Signs Last 24 Hour Vital Signs Date Time Temp Pulse Resp B/P (MAP) Pulse Ox O2 Delivery O2 Flow Rate FiO2 12/11/18 12:00 97.8 99 22 157/94 (115) 98 12/11/18 12:00 40 12/11/18 12:00 Mechanical Ventilator 12/11/18 11:52 92 12/11/18 10:46 92 25 40 12/11/18 09:29 85 23 40 12/11/18 08:00 97.9 90 22 156/69 (98) 94 12/11/18 08:00 86 12/11/18 08:00 40 12/11/18 08:00 Mechanical Ventilator 12/11/18 07:19 82 22 40 12/11/18 04:50 89 20 40 12/11/18 04:00 99.3 88 24 110/64 (79) 100 12/11/18 04:00 Mechanical Ventilator 12/11/18 04:00 40 12/11/18 03:35 91 12/11/18 03:10 82 28 40 12/11/18 01:21 97 30 40 12/11/18 00:14 98.5 12/11/18 00:00 Mechanical Ventilator 12/11/18 00:00 100.7 90 26 144/67 (92) 98 12/10/18 23:43 90 32 40 12/10/18 23:29 77 12/10/18 22:15 78 22 40 12/10/18 20:00 99.4 88 25 145/68 (93) 98 12/10/18 20:00 40 12/10/18 20:00 Mechanical Ventilator 12/10/18 19:11 82 12/10/18 19:00 79 25 40 12/10/18 17:04 88 25 40 12/10/18 16:00 82 12/10/18 16:00 Mechanical Ventilator 12/10/18 16:00 99.5 86 27 148/67 (94) 96 12/10/18 16:00 40 12/10/18 15:27 99 24 40 12/10/18 13:04 95 20 40 Height (Feet): 5 Height (Inches): 5.00 Weight (Pounds): 203 HEENT: status post trach Respiratory/Chest: decreased breath sounds, other - on ventilator Cardiovascular: normal rate Abdomen: soft, non tender, other - GT feeding Genitourinary: other - Turner catheter, hemauria Extremities: other - Generalized edema, Neurologic/Psychiatric: aphasia, other - opens eyes Microbiology Date/Time Source Procedure Growth Status 12/09/18 12:00 Blood Blood Culture - Preliminary NO GROWTH AFTER 24 HOURS Resulted 12/09/18 11:53 Blood Blood Culture - Preliminary NO GROWTH AFTER 24 HOURS Resulted 12/09/18 13:00 Indwelling Cath Urine Culture - Preliminary Gram Negative Bacillus 1 Resulted Laboratory Tests Test 12/10/18 16:10 12/10/18 16:20 12/11/18 03:50 12/11/18 09:20 Prothrombin Time 12.3 SEC (9.30-11.50) H Prothromb Time International Ratio 1.2 (0.9-1.1) H Sodium Level 149 MMOL/L (136-145) H 148 MMOL/L (136-145) H Potassium Level 4.3 MMOL/L (3.5-5.1) 3.9 MMOL/L (3.5-5.1) Chloride Level 112 MMOL/L (98-107) H 111 MMOL/L (98-107) H Carbon Dioxide Level 33 MMOL/L (21-32) H 30 MMOL/L (21-32) Anion Gap 4 mmol/L (5-15) L 7 mmol/L (5-15) Blood Urea Nitrogen 20 mg/dL (7-18) H 21 mg/dL (7-18) H Creatinine 0.9 MG/DL (0.55-1.30) 1.1 MG/DL (0.55-1.30) Estimat Glomerular Filtration Rate mL/min (>60) mL/min (>60) Glucose Level 116 MG/DL (74-106) H 97 MG/DL (74-106) Calcium Level 7.5 MG/DL (8.5-10.1) L 7.9 MG/DL (8.5-10.1) L White Blood Count 19.3 K/UL (4.8-10.8) H 19.3 K/UL (4.8-10.8) H Red Blood Count 3.21 M/UL (4.70-6.10) L 3.71 M/UL (4.70-6.10) L Hemoglobin 8.9 G/DL (14.2-18.0) L 10.1 G/DL (14.2-18.0) L Hematocrit 27.1 % (42.0-52.0) L 32.3 % (42.0-52.0) L Mean Corpuscular Volume 84 FL (80-99) 87 FL (80-99) Mean Corpuscular Hemoglobin 27.6 PG (27.0-31.0) 27.2 PG (27.0-31.0) Mean Corpuscular Hemoglobin Concent 32.8 G/DL (32.0-36.0) 31.3 G/DL (32.0-36.0) L Red Cell Distribution Width 14.8 % (11.6-14.8) 16.7 % (11.6-14.8) H Platelet Count 219 K/UL (150-450) 118 K/UL (150-450) L Mean Platelet Volume 6.4 FL (6.5-10.1) L 6.4 FL (6.5-10.1) L Neutrophils (%) (Auto) % (45.0-75.0) % (45.0-75.0) Lymphocytes (%) (Auto) % (20.0-45.0) % (20.0-45.0) Monocytes (%) (Auto) % (1.0-10.0) % (1.0-10.0) Eosinophils (%) (Auto) % (0.0-3.0) % (0.0-3.0) Basophils (%) (Auto) % (0.0-2.0) % (0.0-2.0) Differential Total Cells Counted 100 100 Neutrophils % (Manual) 81 % (45-75) H 82 % (45-75) H Lymphocytes % (Manual) 13 % (20-45) L 10 % (20-45) L Monocytes % (Manual) 4 % (1-10) 4 % (1-10) Eosinophils % (Manual) 2 % (0-3) 4 % (0-3) H Basophils % (Manual) 0 % (0-2) 0 % (0-2) Band Neutrophils 0 % (0-8) 0 % (0-8) Platelet Estimate Adequate Decreased L Platelet Morphology Normal Normal Hypochromasia 1+ Anisocytosis 1+ 1+ Phosphorus Level 3.1 MG/DL (2.5-4.9) Magnesium Level 1.8 MG/DL (1.8-2.4) Total Bilirubin 0.3 MG/DL (0.2-1.0) Aspartate Amino Transf (AST/SGOT) 27 U/L (15-37) Alanine Aminotransferase (ALT/SGPT) 17 U/L (12-78) Alkaline Phosphatase 102 U/L (46-116) C-Reactive Protein, Quantitative 43.4 mg/dL (0.00-0.90) H Pro-B-Type Natriuretic Peptide 3845 pg/mL (0-125) H Total Protein 6.3 G/DL (6.4-8.2) L Albumin 1.2 G/DL (3.4-5.0) L Globulin 5.1 g/dL Albumin/Globulin Ratio 0.2 (1.0-2.7) L Current Medications Medications (Trade) Dose Ordered Sig/Ruthie Route PRN Reason Start Time Stop Time Status Last Admin Dose Admin Acetaminophen (Tylenol) 650 mg Q6H PRN GT Mild Pain/Temp > 100.5 11/28/18 06:05 12/15/18 06:04 12/10/18 23:44 Atropine Sulfate (Atropine 0.4mg/ ml) 0.4 mg Q5M PRN IVP HR<30 for 30 seconds 11/28/18 06:09 12/28/18 06:08 Bacitracin (Bacitracin 15gm tube) 1 applic EVERY 12 HOURS TOPIC 12/09/18 21:00 12/31/18 17:59 12/11/18 09:39 Bisacodyl (Dulcolax) 10 mg DAILYPRN PRN RECTAL Constipation 11/28/18 06:05 12/18/18 06:04 Dextrose (Dextrose 50%) 25 ml Q30M PRN IV Hypoglycemia 11/28/18 06:15 12/15/18 09:38 Dextrose (Dextrose 50%) 50 ml Q30M PRN IV Hypoglycemia 11/28/18 06:15 12/15/18 05:44 Insulin Aspart (NovoLOG) EVERY 6 HOURS SUBQ 12/08/18 12:00 12/15/18 06:29 12/11/18 06:01 Lansoprazole (Prevacid) 30 mg EVERY 12 HOURS GT 12/09/18 21:00 12/28/18 17:59 12/11/18 09:39 Lorazepam (Ativan 2mg/ml 1ml) 0.5 mg Q2H PRN IV For Anxiety 12/05/18 14:56 12/12/18 14:55 12/07/18 17:19 Metronidazole (Flagyl) 500 mg Q8HR GT 12/09/18 14:00 12/16/18 13:59 12/11/18 06:01 Olanzapine (ZyPREXA Zydis) 7.5 mg DAILY GT 11/28/18 09:00 12/15/18 08:59 12/11/18 09:39 Piperacillin Sod/ Tazobactam Sod 3.375 gm/Sodium Chloride 110 ml @ 27.5 mls/hr EVERY 8 HOURS IVPB 12/09/18 14:00 12/14/18 13:59 12/11/18 06:01 Vancomycin HCl (Vanco rx to dose) 1 ea DAILY PRN MISC Per rx protocol 12/09/18 11:00 01/08/19 10:59 Vancomycin/Sodium Chloride 275 ml @ 137.5 mls/ hr Q24H IVPB 12/09/18 13:00 12/14/18 12:59 12/10/18 12:49 Anam Cruz MD Dec 11, 2018 12:37
[2018-12-11] MEDS: Vancomycin 1.5gm/NS Premix IVPB SCH (12:48)
--- NOTE | 2018-12-11 12:59 | Surgery Progress Note ---
Surgery Progress Note Subjective Additional Comments persistent hematuria labs noted and improved exam stable on support prognosis guarded Objective Last 24 Hour Vital Signs Date Time Temp Pulse Resp B/P (MAP) Pulse Ox O2 Delivery O2 Flow Rate FiO2 12/11/18 12:00 97.8 99 22 157/94 (115) 98 12/11/18 12:00 40 12/11/18 12:00 Mechanical Ventilator 12/11/18 11:52 92 12/11/18 10:46 92 25 40 12/11/18 09:29 85 23 40 12/11/18 08:00 97.9 90 22 156/69 (98) 94 12/11/18 08:00 86 12/11/18 08:00 40 12/11/18 08:00 Mechanical Ventilator 12/11/18 07:19 82 22 40 12/11/18 04:50 89 20 40 12/11/18 04:00 99.3 88 24 110/64 (79) 100 12/11/18 04:00 Mechanical Ventilator 12/11/18 04:00 40 12/11/18 03:35 91 12/11/18 03:10 82 28 40 12/11/18 01:21 97 30 40 12/11/18 00:14 98.5 12/11/18 00:00 Mechanical Ventilator 12/11/18 00:00 100.7 90 26 144/67 (92) 98 12/10/18 23:43 90 32 40 12/10/18 23:29 77 12/10/18 22:15 78 22 40 12/10/18 20:00 99.4 88 25 145/68 (93) 98 12/10/18 20:00 40 12/10/18 20:00 Mechanical Ventilator 12/10/18 19:11 82 12/10/18 19:00 79 25 40 12/10/18 17:04 88 25 40 12/10/18 16:00 82 12/10/18 16:00 Mechanical Ventilator 12/10/18 16:00 99.5 86 27 148/67 (94) 96 12/10/18 16:00 40 12/10/18 15:27 99 24 40 12/10/18 13:04 95 20 40 I&O Intake and Output 12/10/18 12/11/18 19:00 07:00 Intake Total 1512.5 ml 980.0 ml Output Total 125 ml 400 ml Balance 1387.5 ml 580.0 ml Intake Free Water 150 ml 150 ml IV Total 667.5 ml 110.0 ml Tube Feeding 605 ml 660 ml Other 90 ml 60 ml Output Urine Total 125 ml 400 ml # Voids 1 # Bowel Movements 3 Dressing: saturated Wound: other Drains: other Cardiovascular: RSR Respiratory: decreased breath sounds Abdomen: soft, present bowel sounds, non-distended Extremities: no tenderness, no cyanosis Laboratory Tests Test 12/10/18 16:10 12/10/18 16:20 12/11/18 03:50 12/11/18 09:20 Prothrombin Time 12.3 SEC (9.30-11.50) H Prothromb Time International Ratio 1.2 (0.9-1.1) H Sodium Level 149 MMOL/L (136-145) H 148 MMOL/L (136-145) H Potassium Level 4.3 MMOL/L (3.5-5.1) 3.9 MMOL/L (3.5-5.1) Chloride Level 112 MMOL/L (98-107) H 111 MMOL/L (98-107) H Carbon Dioxide Level 33 MMOL/L (21-32) H 30 MMOL/L (21-32) Anion Gap 4 mmol/L (5-15) L 7 mmol/L (5-15) Blood Urea Nitrogen 20 mg/dL (7-18) H 21 mg/dL (7-18) H Creatinine 0.9 MG/DL (0.55-1.30) 1.1 MG/DL (0.55-1.30) Estimat Glomerular Filtration Rate mL/min (>60) mL/min (>60) Glucose Level 116 MG/DL (74-106) H 97 MG/DL (74-106) Calcium Level 7.5 MG/DL (8.5-10.1) L 7.9 MG/DL (8.5-10.1) L White Blood Count 19.3 K/UL (4.8-10.8) H 19.3 K/UL (4.8-10.8) H Red Blood Count 3.21 M/UL (4.70-6.10) L 3.71 M/UL (4.70-6.10) L Hemoglobin 8.9 G/DL (14.2-18.0) L 10.1 G/DL (14.2-18.0) L Hematocrit 27.1 % (42.0-52.0) L 32.3 % (42.0-52.0) L Mean Corpuscular Volume 84 FL (80-99) 87 FL (80-99) Mean Corpuscular Hemoglobin 27.6 PG (27.0-31.0) 27.2 PG (27.0-31.0) Mean Corpuscular Hemoglobin Concent 32.8 G/DL (32.0-36.0) 31.3 G/DL (32.0-36.0) L Red Cell Distribution Width 14.8 % (11.6-14.8) 16.7 % (11.6-14.8) H Platelet Count 219 K/UL (150-450) 118 K/UL (150-450) L Mean Platelet Volume 6.4 FL (6.5-10.1) L 6.4 FL (6.5-10.1) L Neutrophils (%) (Auto) % (45.0-75.0) % (45.0-75.0) Lymphocytes (%) (Auto) % (20.0-45.0) % (20.0-45.0) Monocytes (%) (Auto) % (1.0-10.0) % (1.0-10.0) Eosinophils (%) (Auto) % (0.0-3.0) % (0.0-3.0) Basophils (%) (Auto) % (0.0-2.0) % (0.0-2.0) Differential Total Cells Counted 100 100 Neutrophils % (Manual) 81 % (45-75) H 82 % (45-75) H Lymphocytes % (Manual) 13 % (20-45) L 10 % (20-45) L Monocytes % (Manual) 4 % (1-10) 4 % (1-10) Eosinophils % (Manual) 2 % (0-3) 4 % (0-3) H Basophils % (Manual) 0 % (0-2) 0 % (0-2) Band Neutrophils 0 % (0-8) 0 % (0-8) Platelet Estimate Adequate Decreased L Platelet Morphology Normal Normal Hypochromasia 1+ Anisocytosis 1+ 1+ Phosphorus Level 3.1 MG/DL (2.5-4.9) Magnesium Level 1.8 MG/DL (1.8-2.4) Total Bilirubin 0.3 MG/DL (0.2-1.0) Aspartate Amino Transf (AST/SGOT) 27 U/L (15-37) Alanine Aminotransferase (ALT/SGPT) 17 U/L (12-78) Alkaline Phosphatase 102 U/L (46-116) C-Reactive Protein, Quantitative 43.4 mg/dL (0.00-0.90) H Pro-B-Type Natriuretic Peptide 3845 pg/mL (0-125) H Total Protein 6.3 G/DL (6.4-8.2) L Albumin 1.2 G/DL (3.4-5.0) L Globulin 5.1 g/dL Albumin/Globulin Ratio 0.2 (1.0-2.7) L Plan Problems: (1) Severe sepsis Assessment & Plan: leukocytosis, anemia, lactic acidosis, fevers IV Abx imaging noted and reviewed US with no stones or dilated ducts elevated lft's likely due to liver disease exam as below cont abx trend labs leave crabtree for a few weeks Overall prognosis very guarded Continue with current care Transfuse as needed Plan to be seen by urologist for hematuria check c diff imaging ordered thank you will follow with recs Findings: Exam is somewhat limited, due to gastrostomy tube and overlying bowel gas limiting visualization of the abdominal aorta Gallbladder is unremarkable, without stones, wall thickening, nor pericholecystic fluid. Sonographic Carl's sign is negative. Common bile duct measures 4 mm in diameter. No intrahepatic biliary ductal dilatation. Liver demonstrates normal echogenicity, no focal abnormality. It demonstrates slight surface nodularity. It is enlarged. There is a 1 cm cyst which appears adjacent to the gallbladder wall. This is probably a small exophytic hepatic cyst. Portal vein and hepatic veins are patent. Pancreas is unremarkable. Spleen is unremarkable. Left kidney measures 9.2 cm in length. Right kidney measures 10.2 cm length. Both kidneys demonstrate normal echogenicity. There is no hydronephrosis. Both kidneys demonstrate cysts. . Abdominal aorta is partially obscured by bowel gas, visualized portions are non-aneurysmal . Impression: Negative for gallstones or dilated bile ducts Hepatic surface nodularity, may indicate early cirrhotic changes Hepatomegaly Incidental finding bilateral renal cysts (2) Malnutrition Assessment & Plan: DAILY ESTIMATED NEEDS: Needs based on Critical care, sepsis 71.8 kg 22-30 kcals/kg 3047-2411 total kcals 1.2-2 g protein/kg 86- 144 g total protein 25-30 mL/kg 1795- 2154 total fluid mLs NUTRITION DIAGNOSIS: * Swallowing difficulty R/T respiratory status and dysphagia as evidenced by pt is vent dep, on TF. * Altered nutrition related lab values r/t sepsis, clinical status, h/o Diabetes as evidenced by critically elev WBC (47.2), low Hgb (6.6), elev BNP, low BP (96/41), BG 191, POC 179. CURRENT TF: Jevity 1.2 @ 70mL/hr x 20hr - NOW NPO ENTERAL NUTRITION RECOMMENDATIONS: Vital 1.2 @55mL/hr x24 hrs to provide 1320mL, 1584kcal, 99g pro, 1071mL free H2O * As medically appropriate to feed, rec TF change to VITAL 1.2 for critical care. * Start Vital 1,2, @25mL, advance as tolerated 10ml/hr q4-6 hrs to goal * HOB over 30 degrees/ water flush per MD --- Low Hgb (6.6), NPO per GI-> rec trophic feeds when appropriate if pt remains hypotensive. ADDITIONAL RECOMMENDATIONS: * Per SNF: HT 68 inches WT 158 lbs + Daily calibrated bed scale wts * Change TF to Vital 1.2, as medically able to feed * Monitor lytes (replete as needed) * F/up w/ WC eval . (3) Sacral decubitus ulcer Assessment & Plan: Pt presented on admission with contractures and multiple pressure injuries. Partially opened DTPI L buttocks. Base of wound moist - viable with surrounding dark and fluctuant borders.(L)1.2cm x (W)1cm. Small amt of sanguineous exudate noted. No odor noted. Hyperpigmentation noted to sacrum. Historical scar from previous wound noted to L trochanter. Penile head retracted within foreskin and small wound noted within folds of foreskin. Wound is moist and viable. No odor or exudate noted. No erythema noted periwound. Resolving pressure injury plantar R heel. Base of wound 50% epithelialized, 50% moist and viable.(L)5.5cm x (W)6.5cm. Resolving pressure injury lateral L heel. Base of wound is moist and viable with surrounding hyperpigmentation.(L)0.6cm x (W)0.5cm. Scattered loose, dry brown skin noted to medial and posterior L heel. Tx.Plan: Apply Moisture Barrier Paste to L buttocks and sacrum. Cover with Optifoam drsg. Change every 3 days and prn. Cleanse head of penis with soap and water. Apply Bacitracin oint Twice Daily. Apply Betadine to R and L heel wounds. Cover each heel with Optifoam drsg. Daily and prn. APM/ABDELRAHMAN Mattress overlay. Reposition at least every 2hours and prn. Off-load heels with pillow. Don Carvalho Dec 11, 2018 12:59
--- NOTE | 2018-12-11 13:56 | Nephrology Progress Note ---
Assessment/Plan Problem List: (1) Hematuria Assessment: persistant (2) Septic shock Assessment: WBCs rising (3) Ventilator dependence (4) Renal failure (ARF), acute on chronic (5) Prostate enlargement (6) Anemia (7) Hyperosmolality with hypernatremia Assessment Septic Shock Acute renal failure CKD underlying BPH Sever Anemia Chronic trach-Vent DM HypoAlbuminemia HyperNatremia Dementia Troponin elevation Plan doing poorly transfused WBC kevin and has hematuria ! Anemia worsened, transfused Patient DNR , but not comfort care Will discuss the plan of care D5W for hyperNatremia now in SDU family agreed to DNR labs reviewed- mag IV as needed avoid Nephrotoxics transfuse as needed crabtree monitor urine out put and renal parameters per orders Subjective ROS Limited/Unobtainable: Yes Objective Objective Last 24 Hour Vital Signs Date Time Temp Pulse Resp B/P (MAP) Pulse Ox O2 Delivery O2 Flow Rate FiO2 12/11/18 12:00 97.8 99 22 157/94 (115) 98 12/11/18 12:00 40 12/11/18 12:00 Mechanical Ventilator 12/11/18 11:52 92 12/11/18 10:46 92 25 40 12/11/18 09:29 85 23 40 12/11/18 08:00 97.9 90 22 156/69 (98) 94 12/11/18 08:00 86 12/11/18 08:00 40 12/11/18 08:00 Mechanical Ventilator 12/11/18 07:19 82 22 40 12/11/18 04:50 89 20 40 12/11/18 04:00 99.3 88 24 110/64 (79) 100 12/11/18 04:00 Mechanical Ventilator 12/11/18 04:00 40 12/11/18 03:35 91 12/11/18 03:10 82 28 40 12/11/18 01:21 97 30 40 12/11/18 00:14 98.5 12/11/18 00:00 Mechanical Ventilator 12/11/18 00:00 100.7 90 26 144/67 (92) 98 12/10/18 23:43 90 32 40 12/10/18 23:29 77 12/10/18 22:15 78 22 40 12/10/18 20:00 99.4 88 25 145/68 (93) 98 12/10/18 20:00 40 12/10/18 20:00 Mechanical Ventilator 12/10/18 19:11 82 12/10/18 19:00 79 25 40 12/10/18 17:04 88 25 40 12/10/18 16:00 82 12/10/18 16:00 Mechanical Ventilator 12/10/18 16:00 99.5 86 27 148/67 (94) 96 12/10/18 16:00 40 12/10/18 15:27 99 24 40 Intake and Output 12/10/18 12/11/18 19:00 07:00 Intake Total 1512.5 ml 980.0 ml Output Total 125 ml 400 ml Balance 1387.5 ml 580.0 ml Intake Free Water 150 ml 150 ml IV Total 667.5 ml 110.0 ml Tube Feeding 605 ml 660 ml Other 90 ml 60 ml Output Urine Total 125 ml 400 ml # Voids 1 # Bowel Movements 3 Laboratory Tests 12/10/18 16:10: Prothrombin Time 12.3H, Prothromb Time International Ratio 1.2H, Sodium Level 149H, Potassium Level 4.3, Chloride Level 112H, Carbon Dioxide Level 33H, Anion Gap 4L, Blood Urea Nitrogen 20H, Creatinine 0.9, Estimat Glomerular Filtration Rate , Glucose Level 116H, Calcium Level 7.5L 12/10/18 16:20: White Blood Count 19.3H, Red Blood Count 3.21L, Hemoglobin 8.9L, Hematocrit 27.1L, Mean Corpuscular Volume 84, Mean Corpuscular Hemoglobin 27.6, Mean Corpuscular Hemoglobin Concent 32.8, Red Cell Distribution Width 14.8, Platelet Count 219, Mean Platelet Volume 6.4L, Neutrophils (%) (Auto) , Lymphocytes (%) ( Auto) , Monocytes (%) (Auto) , Eosinophils (%) (Auto) , Basophils (%) (Auto) , Differential Total Cells Counted 100, Neutrophils % (Manual) 81H, Lymphocytes % (Manual) 13L, Monocytes % (Manual) 4, Eosinophils % (Manual) 2, Basophils % ( Manual) 0, Band Neutrophils 0, Platelet Estimate Adequate, Platelet Morphology Normal, Hypochromasia 1+, Anisocytosis 1+ 12/11/18 03:50: Sodium Level 148H, Potassium Level 3.9, Chloride Level 111H, Carbon Dioxide Level 30, Anion Gap 7, Blood Urea Nitrogen 21H, Creatinine 1.1, Estimat Glomerular Filtration Rate , Glucose Level 97, Calcium Level 7.9L, Phosphorus Level 3.1, Magnesium Level 1.8, Total Bilirubin 0.3, Aspartate Amino Transf (AST /SGOT) 27, Alanine Aminotransferase (ALT/SGPT) 17, Alkaline Phosphatase 102, C- Reactive Protein, Quantitative 43.4H, Pro-B-Type Natriuretic Peptide 3845H, Total Protein 6.3L, Albumin 1.2L, Globulin 5.1, Albumin/Globulin Ratio 0.2L 12/11/18 09:20: White Blood Count 19.3H, Red Blood Count 3.71L, Hemoglobin 10.1L, Hematocrit 32.3L, Mean Corpuscular Volume 87, Mean Corpuscular Hemoglobin 27.2, Mean Corpuscular Hemoglobin Concent 31.3L, Red Cell Distribution Width 16.7H, Platelet Count 118L, Mean Platelet Volume 6.4L, Neutrophils (%) (Auto) , Lymphocytes (%) (Auto) , Monocytes (%) (Auto) , Eosinophils (%) (Auto) , Basophils (%) (Auto) , Differential Total Cells Counted 100, Neutrophils % ( Manual) 82H, Lymphocytes % (Manual) 10L, Monocytes % (Manual) 4, Eosinophils % ( Manual) 4H, Basophils % (Manual) 0, Band Neutrophils 0, Platelet Estimate DecreasedL, Platelet Morphology Normal, Anisocytosis 1+ Height (Feet): 5 Height (Inches): 5.00 Weight (Pounds): 203 General Appearance: no apparent distress, lethargic EENT: other - trach Vent Cardiovascular: tachycardia Respiratory/Chest: decreased breath sounds Abdomen: distended Objective no change Randolph Fernandes MD Dec 11, 2018 13:56
[2018-12-11 16:00] VITALS: BP 159/75
[2018-12-11] MEDS: Acetaminophen 650mg/20.3ml GT PRN (16:33)
--- NOTE | 2018-12-11 19:18 | Cardiac Electrophysiology PN ---
Assessment/Plan Assessment/Plan 1. S/P Septic shock with WBC 50 K and lactic acidosis WBC still 30K despite IV antibiotic 2. S/P multiple episodes of asystole with pauses of more than 10 seconds off any MCGEE or AVN blockers. Family refused the pacer and DNR. Echo Nl EF. 3. Congestive heart failure with BNP of more than 17,000. BNP 3000 range 4. Troponin elevation, likely due to renal failure and anemia and septic shock. The levels are flat. EKG does not show any ST elevation. 5. S/P Acute renal failure. Resolved BUN 15 and Cr now 0.8 6. Hypernatremia. Resolved. On D5W per Dr Fernandes 7. Ventilator-dependent respiratory failure, status post tracheostomy. 8. Dysphagia, status post PEG placement. 9. Profound anemia, hemoglobin of 6.5, rule out GI bleed. S/P blood transfusion and EGD. 10. Active hematuria, Fu Dr Lindsey 11. DNR, DNI DW RN Subjective Subjective Still has hematuria.No events Objective Last 24 Hour Vital Signs Date Time Temp Pulse Resp B/P (MAP) Pulse Ox O2 Delivery O2 Flow Rate FiO2 12/11/18 17:37 100.2 12/11/18 17:19 94 33 40 12/11/18 16:47 106 12/11/18 16:00 101.3 106 22 159/75 (103) 94 12/11/18 16:00 40 12/11/18 16:00 Mechanical Ventilator 12/11/18 14:36 109 20 40 12/11/18 12:49 110 43 40 12/11/18 12:00 97.8 99 22 157/94 (115) 98 12/11/18 12:00 40 12/11/18 12:00 Mechanical Ventilator 12/11/18 11:52 92 12/11/18 10:46 92 25 40 12/11/18 09:29 85 23 40 12/11/18 08:00 97.9 90 22 156/69 (98) 94 12/11/18 08:00 86 12/11/18 08:00 40 12/11/18 08:00 Mechanical Ventilator 12/11/18 07:19 82 22 40 12/11/18 04:50 89 20 40 12/11/18 04:00 99.3 88 24 110/64 (79) 100 12/11/18 04:00 Mechanical Ventilator 12/11/18 04:00 40 12/11/18 03:35 91 12/11/18 03:10 82 28 40 12/11/18 01:21 97 30 40 12/11/18 00:00 Mechanical Ventilator 12/11/18 00:00 100.7 90 26 144/67 (92) 98 12/10/18 23:43 90 32 40 12/10/18 23:29 77 12/10/18 22:15 78 22 40 12/10/18 20:00 99.4 88 25 145/68 (93) 98 12/10/18 20:00 40 12/10/18 20:00 Mechanical Ventilator Intake and Output 12/10/18 12/11/18 19:00 07:00 Intake Total 1512.5 ml 980.0 ml Output Total 125 ml 400 ml Balance 1387.5 ml 580.0 ml Intake Free Water 150 ml 150 ml IV Total 667.5 ml 110.0 ml Tube Feeding 605 ml 660 ml Other 90 ml 60 ml Output Urine Total 125 ml 400 ml # Voids 1 # Bowel Movements 3 Laboratory Tests Test 12/11/18 03:50 12/11/18 09:20 Sodium Level 148 MMOL/L (136-145) H Potassium Level 3.9 MMOL/L (3.5-5.1) Chloride Level 111 MMOL/L (98-107) H Carbon Dioxide Level 30 MMOL/L (21-32) Anion Gap 7 mmol/L (5-15) Blood Urea Nitrogen 21 mg/dL (7-18) H Creatinine 1.1 MG/DL (0.55-1.30) Estimat Glomerular Filtration Rate mL/min (>60) Glucose Level 97 MG/DL (74-106) Calcium Level 7.9 MG/DL (8.5-10.1) L Phosphorus Level 3.1 MG/DL (2.5-4.9) Magnesium Level 1.8 MG/DL (1.8-2.4) Total Bilirubin 0.3 MG/DL (0.2-1.0) Aspartate Amino Transf (AST/SGOT) 27 U/L (15-37) Alanine Aminotransferase (ALT/SGPT) 17 U/L (12-78) Alkaline Phosphatase 102 U/L (46-116) C-Reactive Protein, Quantitative 43.4 mg/dL (0.00-0.90) H Pro-B-Type Natriuretic Peptide 3845 pg/mL (0-125) H Total Protein 6.3 G/DL (6.4-8.2) L Albumin 1.2 G/DL (3.4-5.0) L Globulin 5.1 g/dL Albumin/Globulin Ratio 0.2 (1.0-2.7) L White Blood Count 19.3 K/UL (4.8-10.8) H Red Blood Count 3.71 M/UL (4.70-6.10) L Hemoglobin 10.1 G/DL (14.2-18.0) L Hematocrit 32.3 % (42.0-52.0) L Mean Corpuscular Volume 87 FL (80-99) Mean Corpuscular Hemoglobin 27.2 PG (27.0-31.0) Mean Corpuscular Hemoglobin Concent 31.3 G/DL (32.0-36.0) L Red Cell Distribution Width 16.7 % (11.6-14.8) H Platelet Count 118 K/UL (150-450) L Mean Platelet Volume 6.4 FL (6.5-10.1) L Neutrophils (%) (Auto) % (45.0-75.0) Lymphocytes (%) (Auto) % (20.0-45.0) Monocytes (%) (Auto) % (1.0-10.0) Eosinophils (%) (Auto) % (0.0-3.0) Basophils (%) (Auto) % (0.0-2.0) Differential Total Cells Counted 100 Neutrophils % (Manual) 82 % (45-75) H Lymphocytes % (Manual) 10 % (20-45) L Monocytes % (Manual) 4 % (1-10) Eosinophils % (Manual) 4 % (0-3) H Basophils % (Manual) 0 % (0-2) Band Neutrophils 0 % (0-8) Platelet Estimate Decreased L Platelet Morphology Normal Anisocytosis 1+ Microbiology Date/Time Source Procedure Growth Status 12/09/18 12:00 Blood Blood Culture - Preliminary NO GROWTH AFTER 24 HOURS Resulted 12/09/18 11:53 Blood Blood Culture - Preliminary NO GROWTH AFTER 24 HOURS Resulted 12/09/18 13:00 Indwelling Cath Urine Culture - Preliminary Gram Negative Bacillus 1 Resulted Objective HEAD AND NECK: Tracheostomy intact. LUNGS: Coarse rhonchi. Decreased breath sounds CARDIOVASCULAR: Irregular irregular S1 and S2 with no gallop. ABDOMEN: Status post G-tube, distended. EXTREMITIES: Reveal 1+ edema. Luke Prather MD Dec 11, 2018 19:18
[2018-12-11 20:00] VITALS: BP 142/73
--- NOTE | 2018-12-11 20:56 | Pulmonology Progress Note ---
Assessment/Plan Assessment/Plan Pulmonary Progress Note Assessment/Plan Impression: Patient with Pneumonia - KPC/Acinetobacter/MDR pseudomonas, Proteus Ventilator dependant respiratory failure, stable Pulmonary Status Severe sepsis previously - WCC improving NSTEMI Anemia sp TFN Dysphagia s/p G tube Chronic wounds Dementia Organic Brain Syndrome Diabetes Chronic renal disease BPH Penile wound Hematuria - Urology following CHF H/o Hypertension Severe Protein Calorie Malnutrition Plan antibiotic regimen per ID Repeat CXR pending monitor blood pressure HHN Q4 and monitor secretions and suction PRN on full vent support-AC- no wean transfuse PRN DNAR multiorgan disease with poor prognosis monitor oxygen needs- and adjust monitor labs DVT and PUD prophylaxis Gtube feeds as able; monitor residuals and reflux aspiration monitor residuals for change will need assisted care medications/laboratory data/nursing notes reviewed in detail note reviewed and edited care discussed with RN and RT Interval Events: care noted vitals stable poor LOC ROS Limited/Unobtainable: Yes Condition: critical EKG Rhythm: Sinus Rhythm Residuals: minimal Tube Feeding Tolerated: yes Vital Signs Noted Labs Noted CXR: Impression: Unchanged Objective: WDWN NAD on vent and poorly responsive reduced breath sounds bilaterally with noted rhonchi [id number] without MRG NABS nontender no HSM; GT; non distended no CC mild edema nonfocal reduced LOC skin noted reviewed and edited Sputum: Organism 1 K.PNEUMONIAE CARBAPENEM RESIST GROWTH: 4+ only sens Colistin Organism 2 A.BAUMANII COMPLX - MDR GROWTH: 4+ Organism 3 PSEUDOMONAS AERUGINOSA GROWTH: 4+ Organism 4 PROTEUS MIRABILIS GROWTH: 4+ Subjective ROS Limited/Unobtainable: No Allergies: Coded Allergies: TERAZOSIN (Verified Allergy, Unknown, 10/27/17) Objective Last 24 Hour Vital Signs Date Time Temp Pulse Resp B/P (MAP) Pulse Ox O2 Delivery O2 Flow Rate FiO2 12/11/18 19:00 88 29 40 12/11/18 17:37 100.2 12/11/18 17:19 94 33 40 12/11/18 16:47 106 12/11/18 16:00 101.3 106 22 159/75 (103) 94 12/11/18 16:00 40 12/11/18 16:00 Mechanical Ventilator 12/11/18 14:36 109 20 40 12/11/18 12:49 110 43 40 12/11/18 12:00 97.8 99 22 157/94 (115) 98 12/11/18 12:00 40 12/11/18 12:00 Mechanical Ventilator 12/11/18 11:52 92 12/11/18 10:46 92 25 40 12/11/18 09:29 85 23 40 12/11/18 08:00 97.9 90 22 156/69 (98) 94 12/11/18 08:00 86 12/11/18 08:00 40 12/11/18 08:00 Mechanical Ventilator 12/11/18 07:19 82 22 40 12/11/18 04:50 89 20 40 12/11/18 04:00 99.3 88 24 110/64 (79) 100 12/11/18 04:00 Mechanical Ventilator 12/11/18 04:00 40 12/11/18 03:35 91 12/11/18 03:10 82 28 40 12/11/18 01:21 97 30 40 12/11/18 00:00 Mechanical Ventilator 12/11/18 00:00 100.7 90 26 144/67 (92) 98 12/10/18 23:43 90 32 40 12/10/18 23:29 77 12/10/18 22:15 78 22 40 Intake and Output 12/10/18 12/11/18 19:00 07:00 Intake Total 1512.5 ml 980.0 ml Output Total 125 ml 400 ml Balance 1387.5 ml 580.0 ml Intake Free Water 150 ml 150 ml IV Total 667.5 ml 110.0 ml Tube Feeding 605 ml 660 ml Other 90 ml 60 ml Output Urine Total 125 ml 400 ml # Voids 1 # Bowel Movements 3 Microbiology Date/Time Source Procedure Growth Status 12/09/18 12:00 Blood Blood Culture - Preliminary NO GROWTH AFTER 24 HOURS Resulted 12/09/18 11:53 Blood Blood Culture - Preliminary NO GROWTH AFTER 24 HOURS Resulted 12/09/18 13:00 Indwelling Cath Urine Culture - Preliminary Gram Negative Bacillus 1 Resulted Laboratory Tests 12/11/18 03:50: Sodium Level 148H, Potassium Level 3.9, Chloride Level 111H, Carbon Dioxide Level 30, Anion Gap 7, Blood Urea Nitrogen 21H, Creatinine 1.1, Estimat Glomerular Filtration Rate , Glucose Level 97, Calcium Level 7.9L, Phosphorus Level 3.1, Magnesium Level 1.8, Total Bilirubin 0.3, Aspartate Amino Transf (AST /SGOT) 27, Alanine Aminotransferase (ALT/SGPT) 17, Alkaline Phosphatase 102, C- Reactive Protein, Quantitative 43.4H, Pro-B-Type Natriuretic Peptide 3845H, Total Protein 6.3L, Albumin 1.2L, Globulin 5.1, Albumin/Globulin Ratio 0.2L 12/11/18 09:20: White Blood Count 19.3H, Red Blood Count 3.71L, Hemoglobin 10.1L, Hematocrit 32.3L, Mean Corpuscular Volume 87, Mean Corpuscular Hemoglobin 27.2, Mean Corpuscular Hemoglobin Concent 31.3L, Red Cell Distribution Width 16.7H, Platelet Count 118L, Mean Platelet Volume 6.4L, Neutrophils (%) (Auto) , Lymphocytes (%) (Auto) , Monocytes (%) (Auto) , Eosinophils (%) (Auto) , Basophils (%) (Auto) , Differential Total Cells Counted 100, Neutrophils % ( Manual) 82H, Lymphocytes % (Manual) 10L, Monocytes % (Manual) 4, Eosinophils % ( Manual) 4H, Basophils % (Manual) 0, Band Neutrophils 0, Platelet Estimate DecreasedL, Platelet Morphology Normal, Anisocytosis 1+ Current Medications Medications (Trade) Dose Ordered Sig/Ruthie Route PRN Reason Start Time Stop Time Status Last Admin Dose Admin Acetaminophen (Tylenol) 650 mg Q6H PRN GT Mild Pain/Temp > 100.5 11/28/18 06:05 12/15/18 06:04 12/11/18 16:33 Atropine Sulfate (Atropine 0.4mg/ ml) 0.4 mg Q5M PRN IVP HR<30 for 30 seconds 11/28/18 06:09 12/28/18 06:08 Bacitracin (Bacitracin 15gm tube) 1 applic EVERY 12 HOURS TOPIC 12/09/18 21:00 12/31/18 17:59 12/11/18 09:39 Bisacodyl (Dulcolax) 10 mg DAILYPRN PRN RECTAL Constipation 11/28/18 06:05 12/18/18 06:04 Dextrose (Dextrose 50%) 25 ml Q30M PRN IV Hypoglycemia 11/28/18 06:15 12/15/18 09:38 Dextrose (Dextrose 50%) 50 ml Q30M PRN IV Hypoglycemia 11/28/18 06:15 12/15/18 05:44 Insulin Aspart (NovoLOG) EVERY 6 HOURS SUBQ 12/08/18 12:00 12/15/18 06:29 12/11/18 17:37 Lansoprazole (Prevacid) 30 mg EVERY 12 HOURS GT 12/09/18 21:00 12/28/18 17:59 12/11/18 09:39 Lorazepam (Ativan 2mg/ml 1ml) 0.5 mg Q2H PRN IV For Anxiety 12/05/18 14:56 12/12/18 14:55 12/07/18 17:19 Metronidazole (Flagyl) 500 mg Q8HR GT 12/09/18 14:00 12/16/18 13:59 12/11/18 16:00 Olanzapine (ZyPREXA Zydis) 7.5 mg DAILY GT 11/28/18 09:00 12/15/18 08:59 12/11/18 09:39 Piperacillin Sod/ Tazobactam Sod 3.375 gm/Sodium Chloride 110 ml @ 27.5 mls/hr EVERY 8 HOURS IVPB 12/09/18 14:00 12/14/18 13:59 12/11/18 16:00 Vancomycin HCl (Vanco rx to dose) 1 ea DAILY PRN MISC Per rx protocol 12/09/18 11:00 01/08/19 10:59 Vancomycin/Sodium Chloride 275 ml @ 137.5 mls/ hr Q24H IVPB 12/09/18 13:00 12/14/18 12:59 12/11/18 12:48 Booker Baumann MD Dec 11, 2018 20:56
--- NOTE | 2018-12-11 21:10 | General Progress Note ---
Assessment/Plan Problem List: (1) Hypernatremia ICD Codes: E87.0 - Hyperosmolality and hypernatremia SNOMED: 08521690 (2) Rhabdomyolysis ICD Codes: M62.82 - Rhabdomyolysis SNOMED: 538166501 (3) Sacral decubitus ulcer ICD Codes: L89.159 - Pressure ulcer of sacral region, unspecified stage SNOMED: 002630049 (4) Severe sepsis ICD Codes: A41.9 - Sepsis, unspecified organism; R65.20 - Severe sepsis without septic shock SNOMED: 73260239 (5) Septic shock ICD Codes: A41.9 - Sepsis, unspecified organism; R65.21 - Severe sepsis with septic shock SNOMED: 95192945 (6) DM (7) Anemia ICD Codes: D64.9 - Anemia, unspecified SNOMED: 631784644 (8) Prostate enlargement ICD Codes: N40.0 - Benign prostatic hyperplasia without lower urinary tract symptoms SNOMED: 580835522 (9) Chronic renal disease ICD Codes: N18.9 - Chronic kidney disease, unspecified SNOMED: 000883973 (10) Ventilator dependence ICD Codes: Z99.11 - Dependence on respirator [ventilator] status SNOMED: 272611406 (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 - Gastrostomy status SNOMED: 136305082, 772851508 (12) Malnutrition ICD Codes: E46 - Unspecified protein-calorie malnutrition SNOMED: 88412021 Status: stable, progressing, unchanged Assessment/Plan: hematurea.contacted dr ramos again re hematurea bph negrito hemature unstable to dc afebrile s/p transfusion on isolation for polymicrobial pna leukocytos trach and peg hypernatremia Subjective ROS Limited/Unobtainable: Yes Allergies: Coded Allergies: TERAZOSIN (Verified Allergy, Unknown, 10/27/17) Objective Last 24 Hour Vital Signs Date Time Temp Pulse Resp B/P (MAP) Pulse Ox O2 Delivery O2 Flow Rate FiO2 12/11/18 20:00 Mechanical Ventilator 12/11/18 20:00 40 12/11/18 20:00 98.8 89 20 142/73 (96) 98 12/11/18 19:00 88 29 40 12/11/18 17:37 100.2 12/11/18 17:19 94 33 40 12/11/18 16:47 106 12/11/18 16:00 101.3 106 22 159/75 (103) 94 12/11/18 16:00 40 12/11/18 16:00 Mechanical Ventilator 12/11/18 14:36 109 20 40 12/11/18 12:49 110 43 40 12/11/18 12:00 97.8 99 22 157/94 (115) 98 12/11/18 12:00 40 12/11/18 12:00 Mechanical Ventilator 12/11/18 11:52 92 12/11/18 10:46 92 25 40 12/11/18 09:29 85 23 40 12/11/18 08:00 97.9 90 22 156/69 (98) 94 12/11/18 08:00 86 12/11/18 08:00 40 12/11/18 08:00 Mechanical Ventilator 12/11/18 07:19 82 22 40 12/11/18 04:50 89 20 40 12/11/18 04:00 99.3 88 24 110/64 (79) 100 12/11/18 04:00 Mechanical Ventilator 12/11/18 04:00 40 12/11/18 03:35 91 12/11/18 03:10 82 28 40 12/11/18 01:21 97 30 40 12/11/18 00:00 Mechanical Ventilator 12/11/18 00:00 100.7 90 26 144/67 (92) 98 12/10/18 23:43 90 32 40 12/10/18 23:29 77 12/10/18 22:15 78 22 40 Intake and Output 12/10/18 12/11/18 19:00 07:00 Intake Total 1512.5 ml 980.0 ml Output Total 125 ml 400 ml Balance 1387.5 ml 580.0 ml Intake Free Water 150 ml 150 ml IV Total 667.5 ml 110.0 ml Tube Feeding 605 ml 660 ml Other 90 ml 60 ml Output Urine Total 125 ml 400 ml # Voids 1 # Bowel Movements 3 Laboratory Tests 12/11/18 03:50: Sodium Level 148H, Potassium Level 3.9, Chloride Level 111H, Carbon Dioxide Level 30, Anion Gap 7, Blood Urea Nitrogen 21H, Creatinine 1.1, Estimat Glomerular Filtration Rate , Glucose Level 97, Calcium Level 7.9L, Phosphorus Level 3.1, Magnesium Level 1.8, Total Bilirubin 0.3, Aspartate Amino Transf (AST /SGOT) 27, Alanine Aminotransferase (ALT/SGPT) 17, Alkaline Phosphatase 102, C- Reactive Protein, Quantitative 43.4H, Pro-B-Type Natriuretic Peptide 3845H, Total Protein 6.3L, Albumin 1.2L, Globulin 5.1, Albumin/Globulin Ratio 0.2L 12/11/18 09:20: White Blood Count 19.3H, Red Blood Count 3.71L, Hemoglobin 10.1L, Hematocrit 32.3L, Mean Corpuscular Volume 87, Mean Corpuscular Hemoglobin 27.2, Mean Corpuscular Hemoglobin Concent 31.3L, Red Cell Distribution Width 16.7H, Platelet Count 118L, Mean Platelet Volume 6.4L, Neutrophils (%) (Auto) , Lymphocytes (%) (Auto) , Monocytes (%) (Auto) , Eosinophils (%) (Auto) , Basophils (%) (Auto) , Differential Total Cells Counted 100, Neutrophils % ( Manual) 82H, Lymphocytes % (Manual) 10L, Monocytes % (Manual) 4, Eosinophils % ( Manual) 4H, Basophils % (Manual) 0, Band Neutrophils 0, Platelet Estimate DecreasedL, Platelet Morphology Normal, Anisocytosis 1+ Height (Feet): 5 Height (Inches): 5.00 Weight (Pounds): 203 General Appearance: confused Respiratory/Chest: lungs clear Abdomen: soft Trish Matias MD Dec 11, 2018 21:10
[2018-12-12] VITALS: BP 141/74
[2018-12-12 04:00] VITALS: BP 151/71
[2018-12-12] MEDS: NovoLOG Insulin Flexpen SUBQ SCH ×3 (05:12→17:37)
[2018-12-12] MEDS: metroNIDAZOLE 500mg tab GT SCH ×2 (05:14→13:52)
[2018-12-12] MEDS: Piperacillin/Tazobactam 3.375 GM in NS 110 ML IVPB SCH (05:15)
[2018-12-12 05:25] LABS: ANION GAP 5 mmol/L (5-15); BLOOD UREA NITROGEN 23 mg/dL (7-18); CALCIUM 7.7 MG/DL (8.5-10.1); CARBON DIOXIDE 34 MMOL/L (21-32); CHLORIDE 112 MMOL/L (98-107); CREATININE 1.1 MG/DL (0.55-1.30); POTASSIUM 3.4 MMOL/L (3.5-5.1); SODIUM 151 MMOL/L (136-145)
[2018-12-12 08:00] VITALS: BP 166/78
[2018-12-12] MEDS: ZyPREXA Zydis 5mg tab GT SCH (09:22)
[2018-12-12] MEDS: Bacitracin Oint 15gm Tube TOPIC SCH (09:26)
--- NOTE | 2018-12-12 11:28 | Hematology/Onc Progress Note ---
Assessment/Plan Assessment/Plan ASSESSMENT AND RECOMMENDATIONS # Leukocytosis. Likely related to underlying infection with sepsis and elevated severely on admission --> Imaging has been reviewed. Shows cxr left lung inil/v edema --> Blood cs and urine cx are have been reviewed --> Has been started on abx, empiric tx (zosyn)--> colistin/cipro/ceftaz--> ceftazadime-> VANC/ZOSYN/flagyl --> PERIPHERAL SMEAR SHOWS ATYPICAL LYMPHOCYTES--> has stabilized, improved --> Flow cytometry ordered with pathologist -> no atypical findings are noted --> wbc 52k-->47k-->29k->16-->12-->14->12-->12-->21-->14->11->15->9-->11.4->24k- >28k-->16k-->13-->17k-->16k-->30-->19 --> picc was repositioned --> is off of any steriods, daily md review --> for urology evaluation with hematuria, improved --> c.diff appears negative for now # Anemia of chronic disease, due to underlying chronic medical issues, multifactorial. --> Anemia w/u has been ordered --> with hyperferritinemia --> No evidence of hemolysis noted, peripheral smear has been reviewed --> Hgb goal >7. Transfuse as needed --> hgb trend 7.5-->6.6->9.1-->9.2-->8.9-->9.9->8.3-->8.5-->9.3-->8.2->8.4-->7.1 -->10.6-->9.8-->8.9 --> 2 units transfuse on 11/15, 2 more 12/04 --> will need to follow as outpatient and may need chelation therapy --> GI workup with egd showed gastritis --> hematuria eval as per UROL # Failure to thrive (FTT) - decreased bmi and low protein --> cea 4.3 --> will obtain q3 day caloric counts --> mirtazapine as appetite stimulant --> GI consult on a prn basis, as needed for endosc # Asystole with pauses may need pm per family --> as per cards recs --> refusing pm # Sepsis, which has improved --> abx as per id # Dysphagia s/p PEG # Malnutrition. 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 Greatly appreciate consultation. Subjective Neurologic/Psychiatric: Denies: no symptoms, anxiety, depressed, emotional problems, headache, numbness, paresthesia, pre-existing deficit, seizure, tingling, tremors, weakness, other Allergies: Coded Allergies: TERAZOSIN (Verified Allergy, Unknown, 10/27/17) Subjective 11/16: in the icu, is off pressors, doing better, no bleeding 11/18: no bleeding, remains on doxy and zosyn, no bleeding reported 11/19: out of the icu, on vent/trach, no major changes, jimenez rn 11/20: no bleeding noted, no night sweats, meds reviewed, no f/c 11/21: on vent, obtunded, with gt ongong, with picc, no bleeding .17: stricture advanced through with uro, with crabtree, labs noted 11/23: no events to report, no bleeding, labs reviewed, in icu 11/24: remains in the icu, with asystole, pending discussion with marlyn re pM 11/25: continues to have pauses, no bleeding, seen by cards, no events 11/26: no ets, no bleeding noted, no night sweats, no f/c 11/27: hgb 8.2, no bleeding or chills, no major changes on trach/vent, jimenez RN 11/28: agitated today, on vent/trach, jimenez dior, potential dc to tirso turner 11/29: obtunded, is out of the unit, labs noted, wbc 24k 11/30: gt feeds on hold, no bleeding reported, no night sweats 12/01: is on abx, no bleeding, no f/c, no night sweats noted 12/04: no events to report, hgb 7.1, nor chills noted, to get 2 unit prbc 12/05: for blood transfusion which was completed, but wbc higher, with hematruia , is dnr 12/06: no events, no bleeding, hematuria is improved, labs pending, on vent/ trach 12/07: no bleeding, no chills, labs noted, hgb higher 12/09: on vent and gtube feeds, no night sweats, no major changes 12/10: seen by id, is on vanc/zosyn, flagyl, still with hematuria, labs noted 12/11: pulse in the 80-90s, no events, hematuria is mildly better 12/12: no events, seen with Donnie Sher, no bleeding or chills noted Objective Objective Current Medications Medications (Trade) Dose Ordered Sig/Ruthie Route PRN Reason Start Time Stop Time Status Last Admin Dose Admin Acetaminophen (Tylenol) 650 mg Q6H PRN GT Mild Pain/Temp > 100.5 11/28/18 06:05 12/15/18 06:04 12/11/18 16:33 Atropine Sulfate (Atropine 0.4mg/ ml) 0.4 mg Q5M PRN IVP HR<30 for 30 seconds 11/28/18 06:09 12/28/18 06:08 Bacitracin (Bacitracin 15gm tube) 1 applic EVERY 12 HOURS TOPIC 12/09/18 21:00 12/31/18 17:59 12/12/18 09:26 Bisacodyl (Dulcolax) 10 mg DAILYPRN PRN RECTAL Constipation 11/28/18 06:05 12/18/18 06:04 Dextrose 1,000 ml @ 100 mls/hr Q10H IV 12/12/18 08:45 01/11/19 08:44 12/12/18 09:32 Dextrose (Dextrose 50%) 25 ml Q30M PRN IV Hypoglycemia 11/28/18 06:15 12/15/18 09:38 Dextrose (Dextrose 50%) 50 ml Q30M PRN IV Hypoglycemia 11/28/18 06:15 12/15/18 05:44 Insulin Aspart (NovoLOG) EVERY 6 HOURS SUBQ 12/08/18 12:00 12/15/18 06:29 12/12/18 05:12 Lansoprazole (Prevacid) 30 mg EVERY 12 HOURS GT 12/09/18 21:00 12/28/18 17:59 11/6/19 09:22 Lorazepam (Ativan 2mg/ml 1ml) 0.5 mg Q2H PRN IV For Anxiety 12/05/18 14:56 12/12/18 14:55 12/07/18 17:19 Metronidazole (Flagyl) 500 mg Q8HR GT 12/09/18 14:00 12/16/18 13:59 12/12/18 05:14 Olanzapine (ZyPREXA Zydis) 7.5 mg DAILY GT 11/28/18 09:00 12/15/18 08:59 12/12/18 09:22 Piperacillin Sod/ Tazobactam Sod 3.375 gm/Sodium Chloride 110 ml @ 27.5 mls/hr EVERY 8 HOURS IVPB 12/09/18 14:00 12/14/18 13:59 12/12/18 05:15 Potassium Chloride (K-Dur) 40 meq TWICE A DAY GT 12/12/18 09:00 01/11/19 08:59 12/12/18 09:23 Vancomycin HCl (Vanco rx to dose) 1 ea DAILY PRN MISC Per rx protocol 12/09/18 11:00 01/08/19 10:59 Vancomycin/Sodium Chloride 275 ml @ 137.5 mls/ hr Q24H IVPB 12/09/18 13:00 12/14/18 12:59 12/11/18 12:48 Last 24 Hour Vital Signs Date Time Temp Pulse Resp B/P (MAP) Pulse Ox O2 Delivery O2 Flow Rate FiO2 12/12/18 10:46 82 24 40 12/12/18 09:04 82 23 40 12/12/18 08:00 99.0 86 28 166/78 (107) 99 12/12/18 08:00 40 12/12/18 08:00 Mechanical Ventilator 12/12/18 07:34 81 12/12/18 06:48 85 22 40 12/12/18 04:57 83 22 40 12/12/18 04:00 40 12/12/18 04:00 84 12/12/18 04:00 98.2 89 19 151/71 (97) 99 12/12/18 04:00 Mechanical Ventilator 12/12/18 02:55 92 28 40 12/12/18 01:14 97 24 40 11/6/19 00:00 40 12/12/18 00:00 Mechanical Ventilator 12/12/18 00:00 98.5 81 21 141/74 (96) 99 12/12/18 00:00 89 12/11/18 22:42 89 20 40 12/11/18 21:20 90 22 40 12/11/18 20:00 Mechanical Ventilator 12/11/18 20:00 40 12/11/18 20:00 92 12/11/18 20:00 98.8 89 20 142/73 (96) 98 12/11/18 19:00 88 29 40 12/11/18 17:37 100.2 12/11/18 17:19 94 33 40 12/11/18 16:47 106 12/11/18 16:00 101.3 106 22 159/75 (103) 94 12/11/18 16:00 40 12/11/18 16:00 Mechanical Ventilator 12/11/18 14:36 109 20 40 12/11/18 12:49 110 43 40 12/11/18 12:00 97.8 99 22 157/94 (115) 98 12/11/18 12:00 40 12/11/18 12:00 Mechanical Ventilator 12/11/18 11:52 92 12/11/18 10:46 92 25 40 12/11/18 09:29 85 23 40 12/11/18 08:00 97.9 90 22 156/69 (98) 94 12/11/18 08:00 86 12/11/18 08:00 40 12/11/18 08:00 Mechanical Ventilator 12/11/18 07:19 82 22 40 12/11/18 04:50 89 20 40 12/11/18 04:00 99.3 88 24 110/64 (79) 100 12/11/18 04:00 Mechanical Ventilator 12/11/18 04:00 40 12/11/18 03:35 91 12/11/18 03:10 82 28 40 12/11/18 01:21 97 30 40 12/11/18 00:00 Mechanical Ventilator 12/11/18 00:00 100.7 90 26 144/67 (92) 98 12/10/18 23:43 90 32 40 12/10/18 23:29 77 12/10/18 22:15 78 22 40 12/10/18 20:00 99.4 88 25 145/68 (93) 98 12/10/18 20:00 40 12/10/18 20:00 Mechanical Ventilator 12/10/18 19:11 82 12/10/18 19:00 79 25 40 12/10/18 17:04 88 25 40 12/10/18 16:00 82 12/10/18 16:00 Mechanical Ventilator 12/10/18 16:00 99.5 86 27 148/67 (94) 96 12/10/18 16:00 40 12/10/18 15:27 99 24 40 12/10/18 13:04 95 20 40 12/10/18 12:00 Mechanical Ventilator 12/10/18 12:00 99.0 84 22 131/70 (90) 99 12/10/18 12:00 40 12/10/18 12:00 79 Intake and Output 12/11/18 12/12/18 19:00 07:00 Intake Total 1235.0 ml 952.5 ml Output Total 500 ml Balance 735.0 ml 952.5 ml Intake Free Water 150 ml IV Total 440.0 ml 137.5 ml Tube Feeding 715 ml 605 ml Other 80 ml 60 ml Output Urine Total 500 ml # Bowel Movements 4 2 Labs Test 12/09/18 13:00 12/10/18 16:10 12/10/18 16:20 12/11/18 03:50 Urine Color Red Urine Appearance Turbid Urine pH 7 (4.5-8.0) Urine Specific [place] 1.005 (1.005-1.035) Urine Protein 4+ (NEGATIVE) Urine Glucose (UA) Negative (NEGATIVE) Urine Ketones 1+ (NEGATIVE) Urine Blood 5+ (NEGATIVE) Urine Nitrite Negative (NEGATIVE) Urine Bilirubin Negative (NEGATIVE) Urine Urobilinogen Normal MG/DL (0.0-1.0) Urine Leukocyte Esterase 3+ (NEGATIVE) Urine RBC Tntc /HPF (0 - 0) Urine WBC 15-20 /HPF (0 - 0) Urine Squamous Epithelial Cells Occasional /LPF Urine Bacteria Few /HPF (NONE) Prothrombin Time 12.3 SEC (9.30-11.50) Prothromb Time International Ratio 1.2 (0.9-1.1) Sodium Level 149 MMOL/L (136-145) 148 MMOL/L (136-145) Potassium Level 4.3 MMOL/L (3.5-5.1) 3.9 MMOL/L (3.5-5.1) Chloride Level 112 MMOL/L (98-107) 111 MMOL/L (98-107) Carbon Dioxide Level 33 MMOL/L (21-32) 30 MMOL/L (21-32) Anion Gap 4 mmol/L (5-15) 7 mmol/L (5-15) Blood Urea Nitrogen 20 mg/dL (7-18) 21 mg/dL (7-18) Creatinine 0.9 MG/DL (0.55-1.30) 1.1 MG/DL (0.55-1.30) Estimat Glomerular Filtration Rate mL/min (>60) mL/min (>60) Glucose Level 116 MG/DL (74-106) 97 MG/DL (74-106) Calcium Level 7.5 MG/DL (8.5-10.1) 7.9 MG/DL (8.5-10.1) White Blood Count 19.3 K/UL (4.8-10.8) Red Blood Count 3.21 M/UL (4.70-6.10) Hemoglobin 8.9 G/DL (14.2-18.0) Hematocrit 27.1 % (42.0-52.0) Mean Corpuscular Volume 84 FL (80-99) Mean Corpuscular Hemoglobin 27.6 PG (27.0-31.0) Mean Corpuscular Hemoglobin Concent 32.8 G/DL (32.0-36.0) Red Cell Distribution Width 14.8 % (11.6-14.8) Platelet Count 219 K/UL (150-450) Mean Platelet Volume 6.4 FL (6.5-10.1) Neutrophils (%) (Auto) % (45.0-75.0) Lymphocytes (%) (Auto) % (20.0-45.0) Monocytes (%) (Auto) % (1.0-10.0) Eosinophils (%) (Auto) % (0.0-3.0) Basophils (%) (Auto) % (0.0-2.0) Differential Total Cells Counted 100 Neutrophils % (Manual) 81 % (45-75) Lymphocytes % (Manual) 13 % (20-45) Monocytes % (Manual) 4 % (1-10) Eosinophils % (Manual) 2 % (0-3) Basophils % (Manual) 0 % (0-2) Band Neutrophils 0 % (0-8) Platelet Estimate Adequate Platelet Morphology Normal Hypochromasia 1+ Anisocytosis 1+ Phosphorus Level 3.1 MG/DL (2.5-4.9) Magnesium Level 1.8 MG/DL (1.8-2.4) Total Bilirubin 0.3 MG/DL (0.2-1.0) Aspartate Amino Transf (AST/SGOT) 27 U/L (15-37) Alanine Aminotransferase (ALT/SGPT) 17 U/L (12-78) Alkaline Phosphatase 102 U/L (46-116) C-Reactive Protein, Quantitative 43.4 mg/dL (0.00-0.90) Pro-B-Type Natriuretic Peptide 3845 pg/mL (0-125) Total Protein 6.3 G/DL (6.4-8.2) Albumin 1.2 G/DL (3.4-5.0) Globulin 5.1 g/dL Albumin/Globulin Ratio 0.2 (1.0-2.7) Test 12/11/18 09:20 12/12/18 02:50 White Blood Count 19.3 K/UL (4.8-10.8) Red Blood Count 3.71 M/UL (4.70-6.10) Hemoglobin 10.1 G/DL (14.2-18.0) Hematocrit 32.3 % (42.0-52.0) Mean Corpuscular Volume 87 FL (80-99) Mean Corpuscular Hemoglobin 27.2 PG (27.0-31.0) Mean Corpuscular Hemoglobin Concent 31.3 G/DL (32.0-36.0) Red Cell Distribution Width 16.7 % (11.6-14.8) Platelet Count 118 K/UL (150-450) Mean Platelet Volume 6.4 FL (6.5-10.1) Neutrophils (%) (Auto) % (45.0-75.0) Lymphocytes (%) (Auto) % (20.0-45.0) Monocytes (%) (Auto) % (1.0-10.0) Eosinophils (%) (Auto) % (0.0-3.0) Basophils (%) (Auto) % (0.0-2.0) Differential Total Cells Counted 100 Neutrophils % (Manual) 82 % (45-75) Lymphocytes % (Manual) 10 % (20-45) Monocytes % (Manual) 4 % (1-10) Eosinophils % (Manual) 4 % (0-3) Basophils % (Manual) 0 % (0-2) Band Neutrophils 0 % (0-8) Platelet Estimate Decreased Platelet Morphology Normal Anisocytosis 1+ Sodium Level 151 MMOL/L (136-145) Potassium Level 3.4 MMOL/L (3.5-5.1) Chloride Level 112 MMOL/L (98-107) Carbon Dioxide Level 34 MMOL/L (21-32) Anion Gap 5 mmol/L (5-15) Blood Urea Nitrogen 23 mg/dL (7-18) Creatinine 1.1 MG/DL (0.55-1.30) Estimat Glomerular Filtration Rate mL/min (>60) Glucose Level 113 MG/DL (74-106) Calcium Level 7.7 MG/DL (8.5-10.1) Height (Feet): 5 Height (Inches): 5.00 Weight (Pounds): 200 Objective Vitals: reviewed Gen: no apparent distress Head: normocephalic EENT: normal ENT inspection Respiratory: other - intubated vent+ Cardiovascular: normal rate Gastrointestinal: gt - c/d/i Rectal: deferred Genitourinary: no CVA tenderness Skin: normal color +++ decub : ++ Beny Fields MD Dec 12, 2018 11:28
--- NOTE | 2018-12-12 11:38 | General Progress Note ---
Assessment/Plan Problem List: (1) GIB (gastrointestinal bleeding) ICD Codes: K92.2 - Gastrointestinal hemorrhage, unspecified SNOMED: 26073778 (2) PEG (percutaneous endoscopic gastrostomy) status ICD Codes: Z93.1 - Gastrostomy status SNOMED: 539477323, 389666545 (3) Chronic renal disease ICD Codes: N18.9 - Chronic kidney disease, unspecified SNOMED: 590869807 (4) Prostate enlargement ICD Codes: N40.0 - Benign prostatic hyperplasia without lower urinary tract symptoms SNOMED: 250014863 (5) Anemia ICD Codes: D64.9 - Anemia, unspecified SNOMED: 120830068 (6) Septic shock ICD Codes: A41.9 - Sepsis, unspecified organism; R65.21 - Severe sepsis with septic shock SNOMED: 42425178 (7) Gastrostomy tube dependent ICD Codes: Z93.1 - Gastrostomy status SNOMED: 001056064, 375861717 Status: stable, progressing, unchanged Assessment/Plan: ppi prn blood transfusion abx per ID GTF EGD on hold given stable H&H and patient's poor medical condition hematuria>> fu urology recs Subjective ROS Limited/Unobtainable: No Allergies: Coded Allergies: TERAZOSIN (Verified Allergy, Unknown, 10/27/17) Objective Last 24 Hour Vital Signs Date Time Temp Pulse Resp B/P (MAP) Pulse Ox O2 Delivery O2 Flow Rate FiO2 12/12/18 10:46 82 24 40 12/12/18 09:04 82 23 40 12/12/18 08:00 99.0 86 28 166/78 (107) 99 12/12/18 08:00 40 12/12/18 08:00 Mechanical Ventilator 12/12/18 07:34 81 12/12/18 06:48 85 22 40 12/12/18 04:57 83 22 40 12/12/18 04:00 40 12/12/18 04:00 84 12/12/18 04:00 98.2 89 19 151/71 (97) 99 12/12/18 04:00 Mechanical Ventilator 12/12/18 02:55 92 28 40 12/12/18 01:14 97 24 40 12/12/18 00:00 40 12/12/18 00:00 Mechanical Ventilator 12/12/18 00:00 98.5 81 21 141/74 (96) 99 12/12/18 00:00 89 12/11/18 22:42 89 20 40 12/11/18 21:20 90 22 40 12/11/18 20:00 Mechanical Ventilator 12/11/18 20:00 40 12/11/18 20:00 92 12/11/18 20:00 98.8 89 20 142/73 (96) 98 12/11/18 19:00 88 29 40 12/11/18 17:37 100.2 12/11/18 17:19 94 33 40 12/11/18 16:47 106 12/11/18 16:00 101.3 106 22 159/75 (103) 94 12/11/18 16:00 40 12/11/18 16:00 Mechanical Ventilator 12/11/18 14:36 109 20 40 12/11/18 12:49 110 43 40 12/11/18 12:00 97.8 99 22 157/94 (115) 98 12/11/18 12:00 40 12/11/18 12:00 Mechanical Ventilator 12/11/18 11:52 92 Intake and Output 12/11/18 12/12/18 19:00 07:00 Intake Total 1235.0 ml 952.5 ml Output Total 500 ml Balance 735.0 ml 952.5 ml Intake Free Water 150 ml IV Total 440.0 ml 137.5 ml Tube Feeding 715 ml 605 ml Other 80 ml 60 ml Output Urine Total 500 ml # Bowel Movements 4 2 Laboratory Tests 12/12/18 02:50: Sodium Level 151H, Potassium Level 3.4L, Chloride Level 112H, Carbon Dioxide Level 34H, Anion Gap 5, Blood Urea Nitrogen 23H, Creatinine 1.1, Estimat Glomerular Filtration Rate , Glucose Level 113H, Calcium Level 7.7L Height (Feet): 5 Height (Inches): 5.00 Weight (Pounds): 200 General Appearance: no apparent distress EENT: normal ENT inspection Neck: supple Cardiovascular: normal rate Respiratory/Chest: decreased breath sounds Abdomen: normal bowel sounds, non tender, soft Extremities: non-tender Juan Coronel MD Dec 12, 2018 11:38
--- NOTE | 2018-12-12 11:40 | Infectious Diseases Prog Note ---
Assessment/Plan Assessment/Plan IMPRESSION: Sepsis, Acinetobacter, MDR Klebsiella UTI Pneumonia with MDR pseudomonas, Acinetobacter, Proteus & Klebsiella treated BPH, ventilator-dependent respiratory failure Leukocytosis improving Acute renal failure, improving Diabetes mellitus, anemia, hypoxemic respiratory failure, dementia. 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 Phimosis/ paraphimosis Urethral stricture Asystole, cardiac pause DNR RECOMMENDATION: Discontinue IV Vancomycin, Zosyn Start on Tygacil Continue GT Flagyl Will f/u Urine culture, blood culture Poor prognosis Urology reevaluation Case was D/W RN Subjective ROS Limited/Unobtainable: Yes - leaking around Turner catheter Constitutional: Reports: fever, other - Nztj=011.3 Genitourinary: Reports: other Allergies: Coded Allergies: TERAZOSIN (Verified Allergy, Unknown, 10/27/17) Objective Vital Signs Last 24 Hour Vital Signs Date Time Temp Pulse Resp B/P (MAP) Pulse Ox O2 Delivery O2 Flow Rate FiO2 12/12/18 10:46 82 24 40 12/12/18 09:04 82 23 40 12/12/18 08:00 99.0 86 28 166/78 (107) 99 12/12/18 08:00 40 12/12/18 08:00 Mechanical Ventilator 12/12/18 07:34 81 12/12/18 06:48 85 22 40 12/12/18 04:57 83 22 40 12/12/18 04:00 40 12/12/18 04:00 84 12/12/18 04:00 98.2 89 19 151/71 (97) 99 12/12/18 04:00 Mechanical Ventilator 12/12/18 02:55 92 28 40 12/12/18 01:14 97 24 40 12/12/18 00:00 40 12/12/18 00:00 Mechanical Ventilator 12/12/18 00:00 98.5 81 21 141/74 (96) 99 12/12/18 00:00 89 12/11/18 22:42 89 20 40 12/11/18 21:20 90 22 40 12/11/18 20:00 Mechanical Ventilator 12/11/18 20:00 40 12/11/18 20:00 92 12/11/18 20:00 98.8 89 20 142/73 (96) 98 12/11/18 19:00 88 29 40 12/11/18 17:37 100.2 11/5/19 17:19 94 33 40 12/11/18 16:47 106 12/11/18 16:00 101.3 106 22 159/75 (103) 94 12/11/18 16:00 40 12/11/18 16:00 Mechanical Ventilator 12/11/18 14:36 109 20 40 12/11/18 12:49 110 43 40 12/11/18 12:00 97.8 99 22 157/94 (115) 98 12/11/18 12:00 40 12/11/18 12:00 Mechanical Ventilator 12/11/18 11:52 92 Height (Feet): 5 Height (Inches): 5.00 Weight (Pounds): 200 HEENT: status post trach Respiratory/Chest: decreased breath sounds, other - on ventilator Cardiovascular: normal rate Abdomen: distended, other - GT feeding Genitourinary: other - Turner not working, large amount of urinary leak around Turner Extremities: other - severe edema Skin: ulcers Neurologic/Psychiatric: aphasia Microbiology Date/Time Source Procedure Growth Status 12/09/18 12:00 Blood Blood Culture - Preliminary NO GROWTH AFTER 48 HOURS Resulted 12/09/18 11:53 Blood Blood Culture - Preliminary NO GROWTH AFTER 48 HOURS Resulted 12/09/18 13:00 Indwelling Cath Urine Culture - Preliminary Acinetobacter Baumannii Complx K.pneumoniae Carbapenem Resist Resulted Laboratory Tests Test 12/12/18 02:50 Sodium Level 151 MMOL/L (136-145) H Potassium Level 3.4 MMOL/L (3.5-5.1) L Chloride Level 112 MMOL/L (98-107) H Carbon Dioxide Level 34 MMOL/L (21-32) H Anion Gap 5 mmol/L (5-15) Blood Urea Nitrogen 23 mg/dL (7-18) H Creatinine 1.1 MG/DL (0.55-1.30) Estimat Glomerular Filtration Rate mL/min (>60) Glucose Level 113 MG/DL (74-106) H Calcium Level 7.7 MG/DL (8.5-10.1) L Current Medications Medications (Trade) Dose Ordered Sig/Ruthie Route PRN Reason Start Time Stop Time Status Last Admin Dose Admin Acetaminophen (Tylenol) 650 mg Q6H PRN GT Mild Pain/Temp > 100.5 11/28/18 06:05 12/15/18 06:04 12/11/18 16:33 Atropine Sulfate (Atropine 0.4mg/ ml) 0.4 mg Q5M PRN IVP HR<30 for 30 seconds 11/28/18 06:09 12/28/18 06:08 Bacitracin (Bacitracin 15gm tube) 1 applic EVERY 12 HOURS TOPIC 12/09/18 21:00 12/31/18 17:59 12/12/18 09:26 Bisacodyl (Dulcolax) 10 mg DAILYPRN PRN RECTAL Constipation 11/28/18 06:05 12/18/18 06:04 Dextrose 1,000 ml @ 100 mls/hr Q10H IV 12/12/18 08:45 01/11/19 08:44 12/12/18 09:32 Dextrose (Dextrose 50%) 25 ml Q30M PRN IV Hypoglycemia 11/28/18 06:15 12/15/18 09:38 Dextrose (Dextrose 50%) 50 ml Q30M PRN IV Hypoglycemia 11/28/18 06:15 12/15/18 05:44 Insulin Aspart (NovoLOG) EVERY 6 HOURS SUBQ 12/08/18 12:00 12/15/18 06:29 12/12/18 05:12 Lansoprazole (Prevacid) 30 mg EVERY 12 HOURS GT 12/09/18 21:00 12/28/18 17:59 12/12/18 09:22 Lorazepam (Ativan 2mg/ml 1ml) 0.5 mg Q2H PRN IV For Anxiety 12/05/18 14:56 12/12/18 14:55 12/07/18 17:19 Metronidazole (Flagyl) 500 mg Q8HR GT 12/09/18 14:00 12/16/18 13:59 12/12/18 05:14 Olanzapine (ZyPREXA Zydis) 7.5 mg DAILY GT 11/28/18 09:00 12/15/18 08:59 12/12/18 09:22 Piperacillin Sod/ Tazobactam Sod 3.375 gm/Sodium Chloride 110 ml @ 27.5 mls/hr EVERY 8 HOURS IVPB 12/09/18 14:00 12/14/18 13:59 12/12/18 05:15 Potassium Chloride (K-Dur) 40 meq TWICE A DAY GT 12/12/18 09:00 01/11/19 08:59 12/12/18 09:23 Vancomycin HCl (Vanco rx to dose) 1 ea DAILY PRN MISC Per rx protocol 12/09/18 11:00 01/08/19 10:59 Vancomycin/Sodium Chloride 275 ml @ 137.5 mls/ hr Q24H IVPB 12/09/18 13:00 12/14/18 12:59 12/11/18 12:48 Anam Cruz MD Dec 12, 2018 11:40
[2018-12-12 12:00] VITALS: BP 144/71
[2018-12-12 12:06] LABS: HEMATOCRIT 27.8 % (42.0-52.0); HEMOGLOBIN 8.5 G/DL (14.2-18.0); MEAN CORPUSCULAR VOLUME 86 FL (80-99); PLATELET COUNT 251 K/UL (150-450); RED BLOOD COUNT 3.22 M/UL (4.70-6.10); RED CELL DISTRIBUTION WIDTH 16.9 % (11.6-14.8); WHITE BLOOD COUNT 20.9 K/UL (4.8-10.8)
--- NOTE | 2018-12-12 12:21 | Nephrology Progress Note ---
Assessment/Plan Problem List: (1) Hematuria Assessment: persistant (2) Septic shock Assessment: WBCs rising (3) Ventilator dependence (4) Renal failure (ARF), acute on chronic (5) Prostate enlargement (6) Anemia (7) Hyperosmolality with hypernatremia Assessment Septic Shock Acute renal failure CKD underlying BPH Sever Anemia Chronic trach-Vent DM HypoAlbuminemia HyperNatremia Dementia Troponin elevation Plan one liter D5 doing poorly transfused WBC kevin and has hematuria ! Anemia worsened, transfused Patient DNR , but not comfort care Will discuss the plan of care D5W for hyperNatremia now in SDU family agreed to DNR labs reviewed- mag IV as needed avoid Nephrotoxics transfuse as needed crabtree monitor urine out put and renal parameters per orders Subjective ROS Limited/Unobtainable: Yes Objective Objective Last 24 Hour Vital Signs Date Time Temp Pulse Resp B/P (MAP) Pulse Ox O2 Delivery O2 Flow Rate FiO2 12/12/18 10:46 82 24 40 12/12/18 09:04 82 23 40 12/12/18 08:00 99.0 86 28 166/78 (107) 99 12/12/18 08:00 40 12/12/18 08:00 Mechanical Ventilator 12/12/18 07:34 81 12/12/18 06:48 85 22 40 12/12/18 04:57 83 22 40 12/12/18 04:00 40 12/12/18 04:00 84 12/12/18 04:00 98.2 89 19 151/71 (97) 99 12/12/18 04:00 Mechanical Ventilator 12/12/18 02:55 92 28 40 12/12/18 01:14 97 24 40 12/12/18 00:00 40 12/12/18 00:00 Mechanical Ventilator 12/12/18 00:00 98.5 81 21 141/74 (96) 99 12/12/18 00:00 89 12/11/18 22:42 89 20 40 12/11/18 21:20 90 22 40 12/11/18 20:00 Mechanical Ventilator 12/11/18 20:00 40 12/11/18 20:00 92 12/11/18 20:00 98.8 89 20 142/73 (96) 98 12/11/18 19:00 88 29 40 12/11/18 17:37 100.2 12/11/18 17:19 94 33 40 12/11/18 16:47 106 12/11/18 16:00 101.3 106 22 159/75 (103) 94 12/11/18 16:00 40 12/11/18 16:00 Mechanical Ventilator 12/11/18 14:36 109 20 40 12/11/18 12:49 110 43 40 Intake and Output 12/11/18 12/12/18 19:00 07:00 Intake Total 1235.0 ml 952.5 ml Output Total 500 ml Balance 735.0 ml 952.5 ml Intake Free Water 150 ml IV Total 440.0 ml 137.5 ml Tube Feeding 715 ml 605 ml Other 80 ml 60 ml Output Urine Total 500 ml # Bowel Movements 4 2 Laboratory Tests 12/12/18 02:50: Sodium Level 151H, Potassium Level 3.4L, Chloride Level 112H, Carbon Dioxide Level 34H, Anion Gap 5, Blood Urea Nitrogen 23H, Creatinine 1.1, Estimat Glomerular Filtration Rate , Glucose Level 113H, Calcium Level 7.7L 12/12/18 11:53: White Blood Count 20.9H, Red Blood Count 3.22L, Hemoglobin 8.5L, Hematocrit 27.8L, Mean Corpuscular Volume 86, Mean Corpuscular Hemoglobin 26.6L, Mean Corpuscular Hemoglobin Concent 30.7L, Red Cell Distribution Width 16.9H, Platelet Count 251#, Mean Platelet Volume 6.4L, Neutrophils (%) (Auto) , Lymphocytes (%) (Auto) , Monocytes (%) (Auto) , Eosinophils (%) (Auto) , Basophils (%) (Auto) , Neutrophils % (Manual) [Pending], Lymphocytes % (Manual) [Pending], Platelet Estimate [Pending], Platelet Morphology [Pending] Height (Feet): 5 Height (Inches): 5.00 Weight (Pounds): 200 General Appearance: no apparent distress EENT: other - trach Respiratory/Chest: decreased breath sounds Abdomen: distended Objective no change Randolph Fernandes MD Dec 12, 2018 12:21
[2018-12-12] MEDS ORDERED: Tigecycline 100 MG in NS 110 ML IVPB ONE (14:00)
[2018-12-12 16:56] VITALS: BP 141/66
--- NOTE | 2018-12-12 17:05 | Surgery Progress Note ---
Surgery Progress Note Subjective Additional Comments afebrile HD stable ill appearing labs noted exam unchanged Objective Last 24 Hour Vital Signs Date Time Temp Pulse Resp B/P (MAP) Pulse Ox O2 Delivery O2 Flow Rate FiO2 12/12/18 16:56 97.3 93 24 141/66 (91) 96 12/12/18 16:00 Mechanical Ventilator 12/12/18 16:00 40 12/12/18 15:28 80 26 40 12/12/18 13:30 82 26 40 12/12/18 12:00 Mechanical Ventilator 12/12/18 12:00 40 12/12/18 12:00 98 12/12/18 12:00 98.4 84 26 144/71 (95) 99 12/12/18 10:46 82 24 40 12/12/18 09:04 82 23 40 12/12/18 08:00 99.0 86 28 166/78 (107) 99 12/12/18 08:00 40 12/12/18 08:00 Mechanical Ventilator 12/12/18 07:34 81 12/12/18 06:48 85 22 40 12/12/18 04:57 83 22 40 12/12/18 04:00 40 12/12/18 04:00 84 12/12/18 04:00 98.2 89 19 151/71 (97) 99 12/12/18 04:00 Mechanical Ventilator 12/12/18 02:55 92 28 40 12/12/18 01:14 97 24 40 12/12/18 00:00 40 12/12/18 00:00 Mechanical Ventilator 12/12/18 00:00 98.5 81 21 141/74 (96) 99 12/12/18 00:00 89 12/11/18 22:42 89 20 40 12/11/18 21:20 90 22 40 12/11/18 20:00 Mechanical Ventilator 12/11/18 20:00 40 12/11/18 20:00 92 12/11/18 20:00 98.8 89 20 142/73 (96) 98 12/11/18 19:00 88 29 40 12/11/18 17:37 100.2 12/11/18 17:19 94 33 40 I&O Intake and Output 12/11/18 12/12/18 19:00 07:00 Intake Total 1235.0 ml 1057.5 ml Output Total 500 ml Balance 735.0 ml 1057.5 ml Intake Free Water 200 ml IV Total 440.0 ml 137.5 ml Tube Feeding 715 ml 660 ml Other 80 ml 60 ml Output Urine Total 500 ml # Bowel Movements 4 2 Dressing: saturated Wound: other Drains: other Cardiovascular: RSR Respiratory: decreased breath sounds Abdomen: soft, present bowel sounds, non-distended Extremities: no cyanosis, other Laboratory Tests Test 12/12/18 02:50 12/12/18 11:53 Sodium Level 151 MMOL/L (136-145) H Potassium Level 3.4 MMOL/L (3.5-5.1) L Chloride Level 112 MMOL/L (98-107) H Carbon Dioxide Level 34 MMOL/L (21-32) H Anion Gap 5 mmol/L (5-15) Blood Urea Nitrogen 23 mg/dL (7-18) H Creatinine 1.1 MG/DL (0.55-1.30) Estimat Glomerular Filtration Rate mL/min (>60) Glucose Level 113 MG/DL (74-106) H Calcium Level 7.7 MG/DL (8.5-10.1) L White Blood Count 20.9 K/UL (4.8-10.8) H Red Blood Count 3.22 M/UL (4.70-6.10) L Hemoglobin 8.5 G/DL (14.2-18.0) L Hematocrit 27.8 % (42.0-52.0) L Mean Corpuscular Volume 86 FL (80-99) Mean Corpuscular Hemoglobin 26.6 PG (27.0-31.0) L Mean Corpuscular Hemoglobin Concent 30.7 G/DL (32.0-36.0) L Red Cell Distribution Width 16.9 % (11.6-14.8) H Platelet Count 251 K/UL (150-450) # Mean Platelet Volume 6.4 FL (6.5-10.1) L Neutrophils (%) (Auto) % (45.0-75.0) Lymphocytes (%) (Auto) % (20.0-45.0) Monocytes (%) (Auto) % (1.0-10.0) Eosinophils (%) (Auto) % (0.0-3.0) Basophils (%) (Auto) % (0.0-2.0) Differential Total Cells Counted 100 Neutrophils % (Manual) 78 % (45-75) H Lymphocytes % (Manual) 10 % (20-45) L Monocytes % (Manual) 11 % (1-10) H Eosinophils % (Manual) 1 % (0-3) Basophils % (Manual) 0 % (0-2) Band Neutrophils 0 % (0-8) Platelet Estimate Adequate Platelet Morphology Normal Anisocytosis 1+ Plan Problems: (1) Severe sepsis Assessment & Plan: leukocytosis, anemia, lactic acidosis, fevers IV Abx imaging noted and reviewed US with no stones or dilated ducts elevated lft's likely due to liver disease exam as below cont abx trend labs leave crabtree for a few weeks Overall prognosis very guarded Continue with current care Transfuse as needed Plan to be seen by urologist for hematuria check c diff imaging ordered thank you will follow with recs Findings: Exam is somewhat limited, due to gastrostomy tube and overlying bowel gas limiting visualization of the abdominal aorta Gallbladder is unremarkable, without stones, wall thickening, nor pericholecystic fluid. Sonographic Carl's sign is negative. Common bile duct measures 4 mm in diameter. No intrahepatic biliary ductal dilatation. Liver demonstrates normal echogenicity, no focal abnormality. It demonstrates slight surface nodularity. It is enlarged. There is a 1 cm cyst which appears adjacent to the gallbladder wall. This is probably a small exophytic hepatic cyst. Portal vein and hepatic veins are patent. Pancreas is unremarkable. Spleen is unremarkable. Left kidney measures 9.2 cm in length. Right kidney measures 10.2 cm length. Both kidneys demonstrate normal echogenicity. There is no hydronephrosis. Both kidneys demonstrate cysts. . Abdominal aorta is partially obscured by bowel gas, visualized portions are non-aneurysmal . Impression: Negative for gallstones or dilated bile ducts Hepatic surface nodularity, may indicate early cirrhotic changes Hepatomegaly Incidental finding bilateral renal cysts (2) Malnutrition Assessment & Plan: DAILY ESTIMATED NEEDS: Needs based on Critical care, sepsis 71.8 kg 22-30 kcals/kg 8811-5577 total kcals 1.2-2 g protein/kg 86- 144 g total protein 25-30 mL/kg 1795- 2154 total fluid mLs NUTRITION DIAGNOSIS: * Swallowing difficulty R/T respiratory status and dysphagia as evidenced by pt is vent dep, on TF. * Altered nutrition related lab values r/t sepsis, clinical status, h/o Diabetes as evidenced by critically elev WBC (47.2), low Hgb (6.6), elev BNP, low BP (96/41), BG 191, POC 179. CURRENT TF: Jevity 1.2 @ 70mL/hr x 20hr - NOW NPO ENTERAL NUTRITION RECOMMENDATIONS: Vital 1.2 @55mL/hr x24 hrs to provide 1320mL, 1584kcal, 99g pro, 1071mL free H2O * As medically appropriate to feed, rec TF change to VITAL 1.2 for critical care. * Start Vital 1,2, @25mL, advance as tolerated 10ml/hr q4-6 hrs to goal * HOB over 30 degrees/ water flush per MD --- Low Hgb (6.6), NPO per GI-> rec trophic feeds when appropriate if pt remains hypotensive. ADDITIONAL RECOMMENDATIONS: * Per SNF: HT 68 inches WT 158 lbs + Daily calibrated bed scale wts * Change TF to Vital 1.2, as medically able to feed * Monitor lytes (replete as needed) * F/up w/ WC eval . (3) Sacral decubitus ulcer Assessment & Plan: Pt presented on admission with contractures and multiple pressure injuries. Partially opened DTPI L buttocks. Base of wound moist - viable with surrounding dark and fluctuant borders.(L)1.2cm x (W)1cm. Small amt of sanguineous exudate noted. No odor noted. Hyperpigmentation noted to sacrum. Historical scar from previous wound noted to L trochanter. Penile head retracted within foreskin and small wound noted within folds of foreskin. Wound is moist and viable. No odor or exudate noted. No erythema noted periwound. Resolving pressure injury plantar R heel. Base of wound 50% epithelialized, 50% moist and viable.(L)5.5cm x (W)6.5cm. Resolving pressure injury lateral L heel. Base of wound is moist and viable with surrounding hyperpigmentation.(L)0.6cm x (W)0.5cm. Scattered loose, dry brown skin noted to medial and posterior L heel. Tx.Plan: Apply Moisture Barrier Paste to L buttocks and sacrum. Cover with Optifoam drsg. Change every 3 days and prn. Cleanse head of penis with soap and water. Apply Bacitracin oint Twice Daily. Apply Betadine to R and L heel wounds. Cover each heel with Optifoam drsg. Daily and prn. APM/ABDELRAHMAN Mattress overlay. Reposition at least every 2hours and prn. Off-load heels with pillow. Don Carvalho Dec 12, 2018 17:05
--- NOTE | 2018-12-12 17:27 | Cardiac Electrophysiology PN ---
Assessment/Plan Assessment/Plan 1. S/P Septic shock with WBC 50 K and lactic acidosis WBC still 20K on IV antibiotic 2. S/P multiple episodes of asystole with pauses of more than 10 seconds off any MCGEE or AVN blockers. Family refused the pacer and DNR. Echo Nl EF. 3. Congestive heart failure with BNP of more than 17,000. BNP 3000 range 4. Troponin elevation, likely due to renal failure and anemia and septic shock. The levels are flat. EKG does not show any ST elevation. 5. S/P Acute renal failure. Resolved BUN 15 and Cr now 0.8 6. Hypernatremia. Resolved. On D5W per Dr Fernandes 7. Ventilator-dependent respiratory failure, status post tracheostomy. 8. Dysphagia, status post PEG placement. 9. Profound anemia, hemoglobin of 6.5, rule out GI bleed. S/P blood transfusion and EGD. 10. Active hematuria, Fu Dr Lindsey 11. DNR, DNI DW RN Subjective Subjective No events. Transfer to [facility] pending Objective Last 24 Hour Vital Signs Date Time Temp Pulse Resp B/P (MAP) Pulse Ox O2 Delivery O2 Flow Rate FiO2 12/12/18 17:15 84 24 40 12/12/18 16:56 97.3 93 24 141/66 (91) 96 12/12/18 16:00 84 12/12/18 16:00 Mechanical Ventilator 12/12/18 16:00 40 12/12/18 15:28 80 26 40 12/12/18 13:30 82 26 40 12/12/18 12:00 Mechanical Ventilator 12/12/18 12:00 40 12/12/18 12:00 98 12/12/18 12:00 98.4 84 26 144/71 (95) 99 12/12/18 10:46 82 24 40 12/12/18 09:04 82 23 40 12/12/18 08:00 99.0 86 28 166/78 (107) 99 12/12/18 08:00 40 12/12/18 08:00 Mechanical Ventilator 12/12/18 07:34 81 12/12/18 06:48 85 22 40 12/12/18 04:57 83 22 40 12/12/18 04:00 40 12/12/18 04:00 84 12/12/18 04:00 98.2 89 19 151/71 (97) 99 12/12/18 04:00 Mechanical Ventilator 12/12/18 02:55 92 28 40 12/12/18 01:14 97 24 40 12/12/18 00:00 40 12/12/18 00:00 Mechanical Ventilator 12/12/18 00:00 98.5 81 21 141/74 (96) 99 12/12/18 00:00 89 12/11/18 22:42 89 20 40 12/11/18 21:20 90 22 40 12/11/18 20:00 Mechanical Ventilator 12/11/18 20:00 40 12/11/18 20:00 92 12/11/18 20:00 98.8 89 20 142/73 (96) 98 12/11/18 19:00 88 29 40 12/11/18 17:37 100.2 Intake and Output 12/11/18 12/12/18 19:00 07:00 Intake Total 1235.0 ml 1057.5 ml Output Total 500 ml Balance 735.0 ml 1057.5 ml Intake Free Water 200 ml IV Total 440.0 ml 137.5 ml Tube Feeding 715 ml 660 ml Other 80 ml 60 ml Output Urine Total 500 ml # Bowel Movements 4 2 Laboratory Tests Test 12/12/18 02:50 12/12/18 11:53 Sodium Level 151 MMOL/L (136-145) H Potassium Level 3.4 MMOL/L (3.5-5.1) L Chloride Level 112 MMOL/L (98-107) H Carbon Dioxide Level 34 MMOL/L (21-32) H Anion Gap 5 mmol/L (5-15) Blood Urea Nitrogen 23 mg/dL (7-18) H Creatinine 1.1 MG/DL (0.55-1.30) Estimat Glomerular Filtration Rate mL/min (>60) Glucose Level 113 MG/DL (74-106) H Calcium Level 7.7 MG/DL (8.5-10.1) L White Blood Count 20.9 K/UL (4.8-10.8) H Red Blood Count 3.22 M/UL (4.70-6.10) L Hemoglobin 8.5 G/DL (14.2-18.0) L Hematocrit 27.8 % (42.0-52.0) L Mean Corpuscular Volume 86 FL (80-99) Mean Corpuscular Hemoglobin 26.6 PG (27.0-31.0) L Mean Corpuscular Hemoglobin Concent 30.7 G/DL (32.0-36.0) L Red Cell Distribution Width 16.9 % (11.6-14.8) H Platelet Count 251 K/UL (150-450) # Mean Platelet Volume 6.4 FL (6.5-10.1) L Neutrophils (%) (Auto) % (45.0-75.0) Lymphocytes (%) (Auto) % (20.0-45.0) Monocytes (%) (Auto) % (1.0-10.0) Eosinophils (%) (Auto) % (0.0-3.0) Basophils (%) (Auto) % (0.0-2.0) Differential Total Cells Counted 100 Neutrophils % (Manual) 78 % (45-75) H Lymphocytes % (Manual) 10 % (20-45) L Monocytes % (Manual) 11 % (1-10) H Eosinophils % (Manual) 1 % (0-3) Basophils % (Manual) 0 % (0-2) Band Neutrophils 0 % (0-8) Platelet Estimate Adequate Platelet Morphology Normal Anisocytosis 1+ Objective HEAD AND NECK: Tracheostomy intact. LUNGS: Coarse rhonchi. Decreased breath sounds CARDIOVASCULAR: Irregular irregular S1 and S2 with no gallop. ABDOMEN: Status post G-tube, distended. EXTREMITIES: Reveal 1+ edema. Luke Prather MD Dec 12, 2018 17:27
[2018-12-12] MEDS ORDERED: NS Irrig 1000ml ONE (19:55)
[2018-12-12] MEDS ORDERED: NS 275ml ONE (19:55)
--- NOTE | 2018-12-12 21:36 | Pulmonology Progress Note ---
Assessment/Plan Assessment/Plan Pulmonary Progress Note Assessment/Plan Impression: Patient with Pneumonia - KPC/Acinetobacter/MDR pseudomonas, Proteus Ventilator dependant respiratory failure, stable Pulmonary Status Severe sepsis previously - WCC improving NSTEMI Anemia sp TFN Dysphagia s/p G tube Chronic wounds Dementia Organic Brain Syndrome Diabetes Chronic renal disease BPH Penile wound Hematuria - Urology following CHF H/o Hypertension Severe Protein Calorie Malnutrition Plan antibiotic regimen per ID Repeat CXR pending monitor blood pressure HHN Q4 and monitor secretions and suction PRN on full vent support-AC- no wean transfuse PRN DNAR multiorgan disease with poor prognosis monitor oxygen needs- and adjust monitor labs DVT and PUD prophylaxis Gtube feeds as able; monitor residuals and reflux aspiration monitor residuals for change will need nursing home care medications/laboratory data/nursing notes reviewed in detail note reviewed and edited care discussed with RN and RT Interval Events: care noted vitals stable poor LOC ROS Limited/Unobtainable: Yes Condition: critical EKG Rhythm: Sinus Rhythm Residuals: minimal Tube Feeding Tolerated: yes Vital Signs Noted Labs Noted CXR: Impression: Unchanged Objective: WDWN NAD on vent and poorly responsive reduced breath sounds bilaterally with noted rhonchi [id number] without MRG NABS nontender no HSM; GT; non distended no CC mild edema nonfocal reduced LOC skin noted reviewed and edited Sputum: Organism 1 K.PNEUMONIAE CARBAPENEM RESIST GROWTH: 4+ only sens Col[place] Organism 2 A.BAUMANII COMPLX - MDR GROWTH: 4+ Organism 3 PSEUDOMONAS AERUGINOSA GROWTH: 4+ Organism 4 PROTEUS MIRABILIS GROWTH: 4+ Subjective ROS Limited/Unobtainable: No Allergies: Coded Allergies: TERAZOSIN (Verified Allergy, Unknown, 10/27/17) Objective Last 24 Hour Vital Signs Date Time Temp Pulse Resp B/P (MAP) Pulse Ox O2 Delivery O2 Flow Rate FiO2 12/12/18 18:54 82 23 40 12/12/18 17:15 84 24 40 12/12/18 16:56 97.3 93 24 141/66 (91) 96 12/12/18 16:00 84 12/12/18 16:00 Mechanical Ventilator 12/12/18 16:00 40 12/12/18 15:28 80 26 40 12/12/18 13:30 82 26 40 12/12/18 12:00 Mechanical Ventilator 12/12/18 12:00 40 12/12/18 12:00 98 11/6/19 12:00 98.4 84 26 144/71 (95) 99 12/12/18 10:46 82 24 40 12/12/18 09:04 82 23 40 12/12/18 08:00 99.0 86 28 166/78 (107) 99 12/12/18 08:00 40 12/12/18 08:00 Mechanical Ventilator 12/12/18 07:34 81 12/12/18 06:48 85 22 40 12/12/18 04:57 83 22 40 12/12/18 04:00 40 12/12/18 04:00 84 12/12/18 04:00 98.2 89 19 151/71 (97) 99 12/12/18 04:00 Mechanical Ventilator 12/12/18 02:55 92 28 40 12/12/18 01:14 97 24 40 12/12/18 00:00 40 12/12/18 00:00 Mechanical Ventilator 12/12/18 00:00 98.5 81 21 141/74 (96) 99 12/12/18 00:00 89 12/11/18 22:42 89 20 40 Intake and Output 12/11/18 12/12/18 19:00 07:00 Intake Total 1235.0 ml 1057.5 ml Output Total 500 ml Balance 735.0 ml 1057.5 ml Intake Free Water 200 ml IV Total 440.0 ml 137.5 ml Tube Feeding 715 ml 660 ml Other 80 ml 60 ml Output Urine Total 500 ml # Bowel Movements 4 2 Laboratory Tests 12/12/18 02:50: Sodium Level 151H, Potassium Level 3.4L, Chloride Level 112H, Carbon Dioxide Level 34H, Anion Gap 5, Blood Urea Nitrogen 23H, Creatinine 1.1, Estimat Glomerular Filtration Rate , Glucose Level 113H, Calcium Level 7.7L 12/12/18 11:53: White Blood Count 20.9H, Red Blood Count 3.22L, Hemoglobin 8.5L, Hematocrit 27.8L, Mean Corpuscular Volume 86, Mean Corpuscular Hemoglobin 26.6L, Mean Corpuscular Hemoglobin Concent 30.7L, Red Cell Distribution Width 16.9H, Platelet Count 251#, Mean Platelet Volume 6.4L, Neutrophils (%) (Auto) , Lymphocytes (%) (Auto) , Monocytes (%) (Auto) , Eosinophils (%) (Auto) , Basophils (%) (Auto) , Differential Total Cells Counted 100, Neutrophils % ( Manual) 78H, Lymphocytes % (Manual) 10L, Monocytes % (Manual) 11H, Eosinophils % (Manual) 1, Basophils % (Manual) 0, Band Neutrophils 0, Platelet Estimate Adequate, Platelet Morphology Normal, Anisocytosis 1+ Booker Baumann MD Dec 12, 2018 21:36
[2018-12-13] MEDS ORDERED: Tigecycline 50 MG in NS 110 ML IVPB SCH (02:00)
--- NOTE | 2018-12-13 03:45 | Progress Note ---
DATE: 12/12/2018 REASON FOR CONSULTATION: Continuous hematuria. SUBJECTIVE: The patient is well known to me with a difficult Turner catheter placement. He is on the ventilator, unresponsive, cannot give any system review; however on exam Turner catheter is working. Urine is very minimally brown, no active hematuria. All the other tests are stable. Abdomen is soft and nontender. Scrotal exam is normal. ASSESSMENT AND PLAN: The patient can be transferred to the [facility] facility for continuous care. There is no reason to keep him in the hospital. Turner catheter should remain. Tomi Lindsey M.D. DR: Freddy JOB#: [id number] CC:
--- NOTE | 2018-12-13 10:55 | Discharge Summary ---
Discharge Summary Discharge Summary _ DATE OF ADMISSION: 11/15/2018 DATE OF DISCHARGE: 12/12/2018 DISCHARGED BY: Dr Matias REASON FOR ADMISSION: 88 years old male with past medical history of chronic respiratory failure, ventilator dependent, hypertension, diabetes mellitus, dementia, dysphagia, G- tube, was brought to the emergency department for evaluation of fever. Upon evaluation patient was febrile, hypotensive, with mild tachypnea. Laboratory work-up revealed significant leukocytosis WBC 52.1, hemoglobin 7.5, hematocrit 24. Platelet count 327. Sodium 150, potassium 5.2, chloride 112. Magnesium 2.6. BUN 47, creatinine 2.4. Glucose 129. Troponin 0.118. ProBNP 45993. Albumin 2.3. Lactic acid 5.9. AST 174, ALT 244. Total CK 75 Urinalysis revealed gross evidence of UTI, +3 protein. Chest x-ray demonstrated hazy left lung infiltrate versus edema bilateral interstitial congestion. Cardiomegaly. Patient was started on pressors and admitted to ICU for further management. CONSULTANTS: commercial mortgage broker Dr. Mcallister pulmonary Dr. Wolfe ID specialist Dr. Chen GI specialist Dr. Coronel offset press operator Dr. Fernandes granite polisher machine/oncologist Dr. Dalton [facility] COURSE: Patient admitted to ICU. Patient started on the IV fluids and empiric antibiotics. Patient was on Levophed. Hemodynamic status was closely monitored to keep mean arterial blood pressure above 65. Patient was started on blood transfusion. Fire Sprinkler Designer closely followed. Serial troponin revealed mild elevation. Levels were flat. Troponin elevation was likely due to renal failure and septic shock along with anemia, as per commercial mortgage broker. EKG revealed no acute ischemic changes. Echocardiogram revealed preserved ejection fraction of 65% , no evidence of wall motion abnormality. No left ventricular hypertrophy. Right ventricular systolic pressure of 47, consistent with moderate pulmonary hypertension. Patient demonstrated multiple episodes of asystole on telemetry with the pauses of more than 10 seconds . Patient was off any SA node or AV node blockers. Family declined pacemaker placement. Family initially declined DNR order to be considered. Patient was able soon to be weaned from Levophed, only later to be restarted on Dopamine. Patient was on Dopamine with close monitoring, and eventually was able to be weaned from Dopamine. Venous duplex bilateral lower extremity revealed no evidence of acute DVT. Initial ABG showed evidence of hypoxia. Settings were optimized as needed. Patient was followed-up with ABG and chest x-ray. Pulmonary toilet provided every 4 hours [id number]. Patient was suctioned as needed. Tracheostomy care provided. Strict aspiration precaution maintained. Infectious disease specialist followed. Blood cultures were negative. Urine culture revealed mixed gram-positive organisms. Patient continue to have persistent leukocytosis although trending down. Repeated blood cultures were negative as well repeated urine cultures were negative. Sputum culture revealed Klebsiella pneumonia Carbapenem resistant, Acinetobacter MDR complex, Pseudomonas aeruginosa and Proteus. Repeated blood culture on were negative. Urine culture revealed Acinetobacter MDR and Klebsiella pneumonia. Antibiotic regimen was optimized as per ID recommendation No further fever. Leukocytosis initially resolved, then recurred. Patient continued to be afebrile. Infectious disease specialist further optimized antibiotic regimen . Rubber Factory Worker closely followed. Renal parameters and electrolytes were closely monitored. Electrolytes further corrected as needed. Nephrotoxic's avoided as possible. Urinalysis revealed +3 protein. Patient likely had diabetic nephropathy and acute on underlying chronic kidney disease. Renal failure was brought in by sepsis and septic shock. Prior to discharge BUN from 47 down to 23 and creatinine from 2.4 down to 1.1. GI specialist followed. Abdominal ultrasound revealed no evidence of gallstones and dilated bile ducts. Hepatic surface nodularity noted, possibly indicative of early cirrhotic changes. Hepatomegaly. Stool for occult blood was positive x3. Patient and subsequently undergone EGD, which revealed gastritis, otherwise normal upper endoscopy examination. Pathology of stomach antrum revealed mild to moderate chronic gastritis, but was negative for intestinal metaplasia, dysplasia or malignancy. No evidence of Helicobacter infection. G-tube feeding was resumed. Strict aspiration precautions were maintained. Tube feeding formula with goal rate along with the protein supplements provided as per registered nurse first assistant recommendation. LFT were closely monitored. Hepatitis panel was negative. Prior to discharge AST and ALT down to normal. Elevated LFT likely due to shock liver and possibly early liver disease. GI prophylaxis provided. Bowel regimen instituted. Hemoglobin and hematocrit were closely monitored with goal to keep hemoglobin above 7. Anemia work-up revealed anemia of chronic disease. Patient undergone total of 4 units of packed red blood cells transfusion, while in the hospital. CEA within normal limits. Prior to discharge hemoglobin 8.5, hematocrit 27.8. Patient with persistent leukocytosis, likely related to underlying infection as per heme. Peripheral smear showed atypical lymphocytes. Flow cytometry revealed no atypical findings . WBC 19 upon transfer to LT. Patient noted to have negrito hematuria. The patient subsequently undergone evaluation by urologist . Upon evaluation by urologist, urine was minimally brown, no active hematuria. Urologist cleared patient for transfer to [facility] for continuation of care. Turner catheter should remain in at this time . Patient was doing poorly, and family subsequently decided to change CODE STATUS to DNR/DNI. Code status was changed on 11/26 to DNR/DNI. Surgeon followed. Patient presented with multiply pressure injuries and contractures on admission. Wound care provided as per surgeon recommendation . Continue wound care and at the facility. Patient was transferred to [facility] for further management . Overall condition remained very guarded. FINAL DIAGNOSES: Severe sepsis, likely due to UTI and pneumonia Septic shock -resolved Acinetobacter MDR, Klebsiella UTI Pseudomonas, Acinetobacter MDR, Proteus and Klebsiella pneumonia Carbapenem resistant pneumonia Congestive heart failure/diastolic Troponin elevation , probably due to renal failure Acute renal failure on underlying chronic disease Status post multiple episode of asystole with pauses of more than 10 seconds Hypernatremia Abnormal LFT-resolved Chronic respiratory failure Ventilator dependent respiratory failure, status post tracheostomy Dysphagia, feeding by G-tube Profound anemia , requiring blood transfusion Active hematuria-resolved BPH Diabetes mellitus Dementia Severe protein calorie malnutrition Sacral decubitus ulcer present on admission Encephalopathy due to metabolic factor toxin GI bleeding s/p EGD, gastritis Constipation DISCHARGE MEDICATIONS: List of medication was sent to accepting facility. DISCHARGE INSTRUCTIONS: Patient was discharged to LTAC facility/[facility] [place]. Follow up with medical doctor at the facility. I have been assigned to dictate discharge summary for this account. I was not involved in the patient's management. Suzanne Krishnan NP Dec 13, 2018 10:55
== END 2018-12-12 19:56 | DRG 720 ==
LOC: EDBD 02:09 → EDUNIT# 02:09 → EMR 02:15 → ICU 02:48 → EDBEDREQSVC 02:53 → EDBEDREQTM 02:53 → EDBEDREQ 02:53 → 2W 11-18 16:25 → ICU 11-23 07:59 → 2W 11-28 05:45
PROC: 5A1955Z Respiratory Ventilation, Greater than 96 Consecutive Hours (ICD-10-PCS; principal; 2018-11-15)
PROC: 02HV33Z Insertion of Infusion Device into Superior Vena Cava, Percutaneous Approach (ICD-10-PCS; 2018-11-20)
PROC: B548ZZA Ultrasonography of Superior Vena Cava, Guidance (ICD-10-PCS; 2018-11-20)
PROC: 0DD78ZX Extraction of Stomach, Pylorus, Via Natural or Artificial Opening Endoscopic, Diagnostic (ICD-10-PCS; 2018-11-22)
DX: A41.9 Sepsis, unspecified organism (principal); Z99.11 Dependence on respirator [ventilator] status; N40.0 Benign prostatic hyperplasia without lower urinary tract symptoms; Z68.24 Body mass index [BMI] 24.0-24.9, adult; R65.21 Severe sepsis with septic shock; E87.0 Hyperosmolality and hypernatremia; E86.0 Dehydration; N17.9 Acute kidney failure, unspecified; G92 Toxic encephalopathy; E11.21 Type 2 diabetes mellitus with diabetic nephropathy; I13.0 Hypertensive heart and chronic kidney disease with heart failure and stage 1 through stage 4 chronic kidney disease, or unspecified chronic kidney disease; E11.22 Type 2 diabetes mellitus with diabetic chronic kidney disease; N18.9 Chronic kidney disease, unspecified; I50.30 Unspecified diastolic (congestive) heart failure; E78.5 Hyperlipidemia, unspecified; F09 Unspecified mental disorder due to known physiological condition; J96.11 Chronic respiratory failure with hypoxia; Z93.0 Tracheostomy status; Z93.1 Gastrostomy status; D64.9 Anemia, unspecified; F03.90 Unspecified dementia, unspecified severity, without behavioral disturbance, psychotic disturbance, mood disturbance, and anxiety; R62.7 Adult failure to thrive; E43 Unspecified severe protein-calorie malnutrition; R13.10 Dysphagia, unspecified; I38 Endocarditis, valve unspecified; I46.9 Cardiac arrest, cause unspecified; R31.9 Hematuria, unspecified; Z66 Do not resuscitate; K29.70 Gastritis, unspecified, without bleeding; K92.2 Gastrointestinal hemorrhage, unspecified; N35.919 Unspecified urethral stricture, male, unspecified site; N39.0 Urinary tract infection, site not specified; J15.0 Pneumonia due to Klebsiella pneumoniae; J15.6 Pneumonia due to other Gram-negative bacteria; J15.1 Pneumonia due to Pseudomonas; K74.60 Unspecified cirrhosis of liver; N47.1 Phimosis; M62.82 Rhabdomyolysis; R19.7 Diarrhea, unspecified; K59.00 Constipation, unspecified; K72.00 Acute and subacute hepatic failure without coma
CPT/HCPCS: 36415; 36569; 36600; 71045; 76700; 76937; 80048; 80053; 81003; 82140; 82270; 82378; 82390; 82533; 82550; 82553; 82607; 82728; 82746; 82803; 82962; 82977; 83036; 83540; 83550; 83605; 83690; 83735; 83880; 84100; 84484; 84550; 85007; 85025; 85044; 85060; 85384; 85610; 85651; 85730; 86140; 86705; 86709; 86803; 86850; 86900; 86901; 86920; 87040; 87070; 87081; 87086; 87181; 87205; 87340; 93005; 93306; 93970; 93971; 94002; 94003; 94150; 94664; 96365; 96366; 96367; 99291; J1815; J3490; J7030; J7620; J8499